=== PATIENT | female | born 1960 | race Caucasian/White ===

== ENCOUNTER 2016-11-15 21:38 | Inpatient (IN) | payer OTHER, MEDICARE ==
[~2016-11-15] VITALS: Ht 157.5 cm; Wt 111.8 kg
[~2016-11-15 21:38] MED LIST: AMIT50TA PO; APIX5TAB PO; ASPI-482 PO; ASPI81TA2 PO; ATOR20TA58 PO; BUSP10TA PO; BYSTOLIC10 MG PO; CARV12.5 PO; CARV25TA PO; CLON0.1T PO; DABI150C PO; DULO60CA44 PO; DULO60CA6 PO; ESOM40CA PO; FENO134C PO; FLUC150T PO; FURO20TA3 PO; FURO80TA72 PO; HYDR-2672 PO; Hydralazine Hcl PO; INSU100I11 SQ; INSU100I13 SQ; INSU100I16 SQ; INSU100I27 SQ; INSU100V8 SQ; ISOS20TA2 PO; ISOS30TA4 PO; LEVO50TA5 PO; LIRA0.6P SQ; LISI-334 PO; LISI40TA PO; METF10002 PO; METO2.5T PO; METO25TA4 PO; MOME13HF IH; NITR0.4T SL; OLME1TAB5 PO; OXYB10TA PO; PRED20TA PO; PREG150C PO; PREG75CA PO; PROM118S2 PO; SPIR25TA3 PO; TIZA4CAP3 PO; TRIM100T PO
[2016-11-15] MEDS ORDERED: PROPOFOL 50 ML IV ONE (22:12)
[2016-11-15] MEDS ORDERED: MORPHINE SULFATE 4 MG/ML DISP.SYRIN. IV PRN (22:15)
[2016-11-15] MEDS ORDERED: MORPHINE SULFATE 2 MG/ML DISP.SYRIN. IV PRN ×2 (22:15→23:30)
[2016-11-15] MEDS ORDERED: FENTANYL PF 100 MCG/2 ML VIAL. IV PRN (22:15)
[2016-11-15] MEDS ORDERED: FENTANYL STANDARD PCA 30 ML IV PRN (22:15)
[2016-11-15 22:21] LABS: BILIRUBIN,URINE NEGATIVE (NEG); GLUCOSE,URINE NEGATIVE (NEG); NITRITE,URINE NEGATIVE (NEG); PH,URINE 5.5; PROTEIN,URINE NEGATIVE (NEG-TRACE); UROBILINOGEN,URINE 0.2 mg/dL (0.2 mg/dL)
[2016-11-15 22:28] LABS: BACTERIA,URINE MANY /HPF (0-FEW); SQUAMOUS EPITHELIAL CELL,UR MANY /LPF
[2016-11-15] MEDS ORDERED: NOREPINEPHRINE VIAL 8 MG in IV NORMAL SALINE 250ML 250 ML IV ONE (22:30)
[2016-11-15] MEDS: PROPOFOL 100 ML IV PRN (22:36)
[2016-11-15] MEDS ORDERED: LORAZEPAM 2 MG/ML VIAL ONE (22:58)
[2016-11-15] MEDS ORDERED: IV NORMAL SALINE 1000ML BAG 1,000 ML IV ONE ×2 (23:00)
[2016-11-15] MEDS ORDERED: IPRATRPIUM/ALBUTEROL 0.5/2.5MG 3 ML NEBU. NEB ONE (23:00)
[2016-11-15] MEDS ORDERED: VANCOMYCIN PER PHARMACY MC PRN (23:15)
--- NOTE | 2016-11-15 23:25 | PHYS DOC ---
Past Medical History Past Medical History: CHF, COPD, Diabetes-Type II, Heart Disease, Hypertension , [place], Renal Disease, Other Additional Past Medical Histor: BAD VALVE, morbid obesity, REFLEX SYNTHEIC DISTROPHY Past Surgical History: Angioplasty, Appendectomy, Cholecystectomy, Hysterectomy , Other Additional Past Surgical Histo: thoractomy, lumpectomy, exploratory surgery, hernia, bladder sling, Alcohol Use: None Drug Use: None Adult General Chief Complaint Chief Complaint: ALTERED MENTAL STATUS HPI HPI 56-year-old female presenting to the emergency department today with worsening confusion clamminess and being cold to touch. She recently has had watery stools over the past 20 hours. The patient's family is here with her today. They report her being normal yesterday. She has a history of COPD CHF hypertension kidney disease and history of an [place] in the past. Onset 4-5 hours. Location generalized. Duration intermittent. No alleviating factors. Unfortunately no further history is available this time. Review of systems is negative for chest pain shortness of breath abdominal pain nausea vomiting. All other review of systems is negative unless otherwise noted in history of present illness. Review of Systems Review of Systems SEE ABOVE. Current Medications Current Medications Current Medications Medications (Trade) Dose Ordered Sig/Jesus Manuel Start Time Stop Time Status Last Admin Dose Admin Albuterol/ Ipratropium 3 ml 3 ml 1X ONCE 11/15/16 23:00 11/15/16 23:01 DC 11/15/16 23:25 3 ML Ceftriaxone Sodium/Sodium Chloride (Rocephin/Iv Sodium Chloride 0.9% 100ml) 100 ml @ 200 mls/hr Q24H 11/15/16 23:30 11/16/16 07:46 DC 11/15/16 23:26 200 MLS/HR Fentanyl Citrate (Fentanyl 2ml Vial) 50 mcg PRN Q1HR PRN 11/15/16 22:15 11/15/16 23:30 50 MCG Fentanyl Citrate (Fentanyl 600 Mcg/30 ml [facility]) 30 ml @ 0 mls/hr CONT PRN 11/15/16 22:15 11/16/16 00:19 2.5 MLS/HR Lorazepam (Ativan) 1 mg 1X ONCE 11/15/16 23:45 11/15/16 23:46 DC 11/15/16 23:45 1 MG Lorazepam 2 mg 2 mg STK-MED ONCE 11/15/16 22:58 11/15/16 22:59 DC Morphine Sulfate 2 mg PRN Q2HR PRN 11/15/16 23:30 11/16/16 10:44 DC Morphine Sulfate 4 mg 4 mg PRN Q1HR PRN 11/15/16 22:15 Norepinephrine Bitartrate/Sodium Chloride (Levophed Vial/ Iv Sodium Chloride 0.9% 250ml) 258 ml @ 0 mls/hr 1X ONCE 11/15/16 22:30 11/15/16 22:31 DC 11/15/16 22:26 1.9 MLS/HR Ondansetron HCl (Zofran) 4 mg PRN Q8HRS PRN 11/15/16 23:30 11/16/16 23:29 Propofol (Diprivan) 100 ml @ 0 mls/hr CONT PRN 11/15/16 22:45 11/16/16 01:33 8.171 MLS/HR Sodium Chloride 1,000 ml @ 1,000 mls/hr 1X ONCE 11/15/16 23:00 11/15/16 23:59 DC 11/15/16 22:34 1,000 MLS/HR Vancomycin HCl (Vanco Per Pharmacy) 1 each PRN DAILY PRN 11/15/16 23:15 11/16/16 07:46 DC 11/16/16 01:47 1 EACH Allergies Allergies Allergies Coded Allergies Type Severity Reaction Last Updated Verified No Known Drug Allergies 04/19/16 No Physical Exam Physical Exam Constitutional: Well developed, well nourished, lethargic, . HENT: Normocephalic, atraumatic, bilateral external ears normal, oropharynx moist, no oral exudates, nose normal. [] Eyes: PERRLA, EOMI, conjunctiva normal, no discharge. Neck: Normal range of motion, no tenderness, supple, no stridor. [] Cardiovascular:Heart rate regular rhythm, no murmur [] Lungs & Thorax: Mild wheezing bilaterally. Abdomen: Bowel sounds normal, soft, no tenderness, no masses, no pulsatile masses. Skin: cool to touch, dry not moist, no erythema, no rash. Back: No tenderness, no CVA tenderness. [] Extremities: No tenderness, no cyanosis, no clubbing, ROM intact, no edema. Neurologic: Mental status: Patient opens her eyes to painful stimuli. She localizes to pain. She speaks incomprehensible speech. Cranial nerves: No evidence of focal cranial nerve deficit. Strength: Moving all extremities with 5 out of 5 strength. Psychologic: mood normal. Current Patient Data Vital Signs Vital Signs Date Time Temp Pulse Resp B/P Pulse Ox O2 Delivery O2 Flow Rate FiO2 11/15/16 23:50 50 61/32 100 Ventilator 11/15/16 23:30 20 11/15/16 21:54 97.0 97.0 Lab Values Laboratory Tests Test 11/15/16 21:45 11/15/16 21:51 11/15/16 23:34 11/15/16 23:35 Glucose (Fingerstick) 293mg/dL (70-99) H Urine Collection Type U cath Urine Color Yellow Urine Clarity Cloudy Urine pH 5.5 Urine Specific [place] 1.015 Urine Protein Negativemg/dL (NEG-TRACE) Urine Glucose (UA) Negativemg/dL (NEG) Urine Ketones (Stick) Negativemg/dL (NEG) Urine Blood Moderate (NEG) Urine Nitrite Negative (NEG) Urine Bilirubin Negative (NEG) Urine Urobilinogen Dipstick 0.2mg/dL (0.2 mg/dL) Urine Leukocyte Esterase Large (NEG) Urine RBC 1-2/HPF (0-2) Urine WBC 11-20/HPF (0-4) Urine Squamous Epithelial Cells Many/LPF Urine Transitional Epithelial Cells Occ/LPF Urine Bacteria Many/HPF (0-FEW) Urine Hyaline Casts Occasional/HPF POC Hemoglobin 15.0g/dL (12-15) POC Hematocrit 44% (36-40) H POC Sodium 137mmol/L (135-145) POC Potassium 3.3mmol/L (3.5-5.0) L POC Chloride 98mmol/L (98-110) POC Total CO2 26mmol/L (23-32) Anion Gap 17mmol/L (6-14) H POC Blood Urea Nitrogen 65mg/dL (8-26) H POC Creatinine 2.5mg/dL (0.5-1.4) H Glucose Level 241mg/dL (70-99) H POC Ionized Calcium (Walt) 0.91mmol/L (1.13-1.32) L POC Troponin I 0.07ng/ml (<0.08) Laboratory Tests 11/15/16 23:34 EKG EKG EKG shows sinus rhythm with a regular rate. [place] is leftward. Intervals are within normal limits. ST segments are congruent. [] Radiology/Procedures Radiology/Procedures [] Chest x-ray shows ET tube just above the haleigh. No obvious infiltrate or pneumothorax present. Cardiomegaly present. Course & Med Decision Making Course & Med Decision Making Pertinent Labs and Imaging studies reviewed. (See chart for details) [] 56-year-old female presenting to the emergency department today with hypotension and confusion. Vital signs showed a blood pressure initially elevated at 256/56 however after taking multiple attempts on both sides the blood pressure was around 60/40. It was initially thought that the blood pressure was asymmetric that the high blood pressure was in the right arm and the low blood pressure was in the left arm however after clarification and multiple blood pressures taken it was clear that both arms blood pressure were around 60/40. Immediately 2 IVs were established and 2 bags of normal saline were administered. The patient's blood pressure was brought up. Because of the patient's decreased mental status there was concern for airway protection. The patient was subsequent intubated. See procedure note. ekg unremarkable. Head CT unremarkable. Chest x-ray shows ET tube just above the haleigh otherwise no acute pathology. ETT pulled back 2cm. Blood work sent. Troponin negative on i- STAT troponin. I-STAT chemistry shows mild elevation creatinine and uremia with elevated glucose. The pts blood pressure dropped again so IV norepinephrine was initiated. IV abx ordered. IV stress dose steroids used. The patient was then admitted to our ICU for further evaluation workup and care. Pulmonology consult placed. Neurology consult placed. Dragon Disclaimer Dragon Disclaimer This electronic medical record was generated, in whole or in part, using a voice recognition dictation system. Departure Departure Impression: Primary Impression: Encephalopathy Additional Impressions: Hypotension Shock Disposition: ADMITTED INPATIENT Admitting Physician: Luis Niño Condition: IMPROVED Referrals: LUIS NIÑO MD (PCP) Critical Care Time Critical care time was [45] minutes exclusive of procedures. Time was spent evaluating the patient, ordering the administration of IV fluids, directing the administration of medications, reevaluating the patient, discussing with family , discussing with the admitting provider, reviewing chest x-ray and documenting. Intubation Procedure Intubation Procedure Intub Indication: Respiratory failure Consent: Unable to give consent due to emergent nature. Medications Used: see nursing note Procedure: The patient was placed in the appropriate position. Intubation was performed using indirect laryngoscopy. 7-1/2 endotracheal tube was placed at approximately 25 at the teeth. Initial confirmation of placement included bilateral breath sounds, tube fogging, adequate chest rise, adequate pulse oximetry reading. A chest x-ray to verify correct placement of the tube, endotracheal tube was pulled back 2 cm after chest x-ray was viewed. The patient tolerated the procedure well. Complications: none. Problem Qualifiers MAGO NORTON MD Nov 15, 2016 23:25
[2016-11-15] MEDS ORDERED: CEFTRIAXONE SODIUM 2 GM in IV NORMAL SALINE 100ML 100 ML IV SCH (23:30)
[2016-11-15] MEDS ORDERED: ONDANSETRON PF 4 MG/2 ML VIAL. IV PRN (23:30)
[2016-11-15] MEDS: FENTANYL PF 100 MCG/2 ML VIAL. IV PRN (23:30)
--- NOTE | 2016-11-15 23:40 | RAD ---
PROCEDURE CT head without contrast HISTORY Decreased level consciousness TECHNIQUE Axial images are obtained of the head from the skull base through the vertex without IV contrast COMPARISON October 06, 2016 FINDINGS The ventricles are appropriate in size, shape, and location for the patient's age.No obvious intracranial mass, mass-effect, midline shift, hemorrhage or obvious acute infarction is identified.Basilar cisterns are patent. Bone windows demonstrate no acute calvarial abnormality.The visualized paranasal sinuses appear clear. IMPRESSION No acute intracranial process. PQRS Statement: One or more of the following individualized dose reduction techniques were utilized for this study: 1. Automated exposure control. 2. Adjustment of the mA and/or kV according to patient size. 3. Use of iterative reconstruction technique. Electronically signed by: Kalpesh Chambers MD (Nov 15, 2016 23:38:35)
[2016-11-15] MEDS ORDERED: LORAZEPAM 2 MG/ML VIAL IV ONE (23:45)
[2016-11-15 23:58] LABS: POTASSIUM ISTAT 3.3 mmol/L (3.5-5.0)
[2016-11-16] VITALS (25 sets, daily range): BP systolic 75–197; BP diastolic 34–95
[2016-11-16] MEDS ORDERED: VANCOMYCIN 2 GM in IV NORMAL SALINE 500ML BAG 500 ML IV ONE ×2
--- NOTE | 2016-11-16 00:24 | ACF ---
Admission Forms Criteria MENTAL STATUS CHANGE Clinical Indications for Inpatient Care (Place 'X' for any and all applicable criteria): Ongoing inpatient care may be needed for ANY ONE of the following(1)(2)(3)(5)(6) : [X]I. Suspected serious etiology (eg, medical disorder, LOADING UNIT OPERATOR SEATING event) of mental status change [ ]II. Danger to self or others not manageable at lower level of care [ ]III. Grave disability (eg, inability to perform self care necessary at lower level of care) [ ]IV. Agitation or inappropriate behavior interfering with care for primary condition (eg, attempting to discontinue lines or drains prematurely, unable to cooperate with respiratory care) [ ]V. Delirium [A] [D][E] as described by ANY ONE of the following(26): [ ]a) Delirium due to alcohol or sedative [F] withdrawal [ ]b) Delirium of uncertain etiology that has not responded to appropriate empiric treatment [ ]c) Delirium that prevents performance of a life-sustaining function (eg, feeding or hydrating oneself) [ ]. General contraindications and/or Inappropriate clinical situations for Observational Care in patients with Mental Status Change, when ANY ONE of the following is required: [ ]a) Prediction of prolongation of LOS based on ANY ONE of the following may be considered as a contraindication for observational care 2, 3, 4, 5, 6, 7, 8, 9, 10, 11 [ ]i) Age > 65 yrs. [ ]ii) Patient arriving by ambulance [ ]iii) Patient with high acuity [ ]iv) Patient requiring vital sign monitoring [ ]v) Patient on IV medication [ ]b) Systolic blood pressures 180mmHg 3,12 [ ]c) Patient with altered mental status including delirium and other alteration of consciousness, (3) [ ]d) Patient whose discharge disposition will be to a alf home or rehabilitation home should not be managed in Emergency Department Observation Unit. CMS rule requires 3 days hospital stay before such placement.3,13 [ ]e) Patient with failure to thrive due to broad array of etiologies 3,16,17 [ ]f) Inability to ambulate 3,14 Extended stay beyond goal length of stay for the primary condition may be needed until ALL of the following are present(3)(5): [ ]a) Underlying medical etiology of mental status change is absent, or has been established and adequately treated [ ]b) Danger to self or others is absent or manageable at lower level of care. [ ]c) Behavior crisis management, including physical or chemical restraints, is not required or available at lower level of car [ ]d) Substance or alcohol withdrawal is absent or manageable at lower level of care. [ ]e) Behavioral symptoms (eg, agitation, somnolence, inappropriate behavior) are absent, or are manageable at lower level of care. The original [facility] content created by [facility] has been revised. The portions of the content which have been revised are identified through the use of italic text or in bold, and [facility] has neither reviewed nor approved the modified material. All other unmodified content is copyright [facility]. Please see references footnoted in the original [facility] edition 2016 Admission Criteria Met?: Yes SINAI VERMA Nov 16, 2016 00:24
[2016-11-16] MEDS ORDERED: HYDROCORTISONE SOD SUCC/PF 100 MG/2 ML VIAL. IV ONE (00:30)
[2016-11-16 00:34] LABS: BASO # 0.2 x10^3/uL (0.0-0.2); BASO % 1 % (0-3); EOS % 3 % (0-3); HEMATOCRIT 38.3 % (36.0-47.0); HEMOGLOBIN 12.3 g/dL (12.0-15.5); LYMPH # 4.9 x10^3/uL (1.0-4.8); LYMPH % 25 % (24-48); MEAN CORPUSCULAR HEMOGLOBIN 29 pg (25-35); MEAN CORPUSCULAR HGB CONC 32 g/dL (31-37); MEAN CORPUSCULAR VOLUME 90 fL (79-100); MONO % 9 % (0-9); NEUT % 62 % (31-73); PLATELET COUNT 310 x10^3/uL (140-400); RED BLOOD COUNT 4.24 x10^6/uL (3.50-5.40); WHITE BLOOD COUNT 19.5 x10^3/uL (4.0-11.0)
[2016-11-16 00:39] LABS: BASE EXCESS COOX 2 mmol/L (-3-3); CARBON MONOXIDE 0.3 % (0.0-1.9); HCO3 COOX 26 mmol/L (21-28); METHEMOGLOBIN 0.4 % (0.0-1.9); OXYHEMOGLOBIN 98.3 %; PCO2 COOX 42 mmHg (35-46); PH COOX 7.42 (7.35-7.45); PO2 COOX 437 mmHg (75-108); SAT O2 COOX 99 % (92-99); TOTAL HEMOGLOBIN 12.7 g/dL
[2016-11-16 00:41] LABS: FIO2 COOX 100
[2016-11-16 00:44] LABS: CALCIUM 8.5 mg/dL (8.5-10.1); CREATININE 2.5 mg/dL (0.6-1.0); GFR 20.1; POTASSIUM 3.3 mmol/L (3.5-5.1)
[2016-11-16 00:45] LABS: INR 1.7 (0.8-1.1); PROTHROMBIN TIME PATIENT 19.3 SEC (11.7-14.0)
[2016-11-16 00:51] LABS: DIRECT BILIRUBIN 0.1 mg/dL (0.0-0.2); TOTAL BILIRUBIN 0.3 mg/dL (0.2-1.0); TOTAL PROTEIN 6.6 g/dL (6.4-8.2)
[2016-11-16] MEDS ORDERED: ETOMIDATE 20 MG/10 ML VIAL. IV ONE (01:05)
[2016-11-16] MEDS ORDERED: SUCCINYLCHOLINE 200 MG/10 ML VIAL. ONE (01:06)
[2016-11-16] MEDS: PROPOFOL 100 ML IV PRN (01:33)
[2016-11-16] MEDS: POTASSIUM CL 20MEQ-0.45% NACL 1,000 ML IV SCH ×2 (01:36→14:52)
[2016-11-16] MEDS ORDERED: IV NORMAL SALINE 1000ML BAG 1,000 ML IV ONE (02:30)
--- NOTE | 2016-11-16 03:26 | RAD ---
INDICATION: Enteric tube placement COMPARISON: None IMPRESSION: Single frontal view of a portion of the abdomen obtained. A enteric tube with tip at left upper quadrant of abdomen. This is in the expected location of the stomach. Enlarged appearing cardiac silhouette partially visualized chest base. Air-filled distended loop of bowel partially seen on the right side of the abdomen. Electronically signed by: Kelvin Chahal (Nov 16, 2016 03:24:19)
--- NOTE | 2016-11-16 06:19 | EKG ---
[facility] [address] [place] [address] Test Date: 2016-11-15 Test Time: 21:43:41 Pat Name: EVELIA TAI Department: Room: 112 1 Gender: F Piper Installer: RADHA : 1960 Requested By: MAGO NORTON Order Number: [id number] Reading MD: Danna Enrique Measurements Intervals [place] Rate: 68 P: -34 [place]: 138 QRS: -2 QRSD: 84 T: 74 QT: 414 QTc: 440 Interpretive Statements SINUS RHYTHM LEFTWARD AXIS T ABNORMALITY IN HIGH LATERAL LEADS ABNORMAL ECG RI6.01 Compared to ECG 10/06/2016 17:45:21 Left-axis deviation now present T-wave abnormality now present Electronically Signed On 11-19-2016 20:23:53 SSIS ETL DEVELOPER by Danna Enrique
[2016-11-16 06:20] LABS: BASO # 0.1 x10^3/uL (0.0-0.2); BASO % 1 % (0-3); EOS % 1 % (0-3); HEMATOCRIT 36.7 % (36.0-47.0); HEMOGLOBIN 11.8 g/dL (12.0-15.5); LYMPH # 3.1 x10^3/uL (1.0-4.8); LYMPH % 18 % (24-48); MEAN CORPUSCULAR HEMOGLOBIN 29 pg (25-35); MEAN CORPUSCULAR HGB CONC 32 g/dL (31-37); MEAN CORPUSCULAR VOLUME 89 fL (79-100); MONO % 6 % (0-9); NEUT % 75 % (31-73); PLATELET COUNT 295 x10^3/uL (140-400); WHITE BLOOD COUNT 17.6 x10^3/uL (4.0-11.0)
[2016-11-16 06:32] LABS: CREATININE 2.3 mg/dL (0.6-1.0); GFR 22.1; POTASSIUM 3.5 mmol/L (3.5-5.1)
--- NOTE | 2016-11-16 07:28 | RAD ---
Portable chest, 11/15/2016: History: Check ET tube placement Comparison is made to a study from 05/24/2016. An ET tube has been inserted with its tip located approximately 1.5 cm above the haleigh. There are surgical clips projected over the upper chest and lower neck near the midline. The heart is at the upper limits of normal in size. The pulmonary vascularity is normal. No pulmonary infiltrate is seen. No pleural fluid is evident. IMPRESSION: 1. The ET tube tip lies 1.5 cm above the haleigh. 2. Mild cardiomegaly
--- NOTE | 2016-11-16 07:30 | RAD ---
Portable chest, 11/16/2016, 6:41 AM: History: Respiratory failure, intubation Comparison is made yesterday study. The tip of the ET tube now lies approximately 5 cm above the haleigh. An NG tube has been inserted extending into the stomach. Its tip is not visible. The heart is at the upper limits of normal in size. The pulmonary vascularity is normal. There is a minimal hazy opacity partially obscuring the left heart border compatible with lingular atelectasis. The lungs are otherwise clear. There is no evidence of pleural fluid. IMPRESSION: 1. The ET tube and NG tube are in satisfactory positions. 2. Minimal lingular atelectasis.
--- NOTE | 2016-11-16 08:00 | PDOC ---
Infectious Disease Note ROS ROS GEN: Denies fevers, chills, sweats HEENT: Denies blurred vision, sore throat CV: Denies chest pain RESP: Denies shortness of air, cough GI: Denies n/v/d NEURO: Denies confusion, dizziness MSK: Denies weakness, joint pain/swelling Vital Sign Vital Signs Vital Signs Date Time Temp Pulse Resp B/P Pulse Ox O2 Delivery O2 Flow Rate FiO2 11/16/16 06:00 54 20 124/52 100 Ventilator 11/16/16 04:04 98.2 98.2 Physical Exam PHYSICAL EXAM GENERAL: NAD, Alert HEENT: PERRL, OC/OP NECK: Supple, no JVD, no LN LUNGS: Clear HEART: S1S2, no gallop, no murmur ABD: Soft, NT, no organomegaly, no rebound EXT: No edema, no cyanosis CORPORATE LEGAL SECRETARY: Alert, oriented x 3, no focal neurologic deficit SKIN: No rash IV: ok Labs Lab Laboratory Tests Test 11/15/16 21:45 11/15/16 21:51 11/15/16 23:34 11/15/16 23:35 Glucose (Fingerstick) 293mg/dL (70-99) Urine Collection Type U cath Urine Color Yellow Urine Clarity Cloudy Urine pH 5.5 Urine Specific [place] 1.015 Urine Protein Negativemg/dL (NEG-TRACE) Urine Glucose (UA) Negativemg/dL (NEG) Urine Ketones (Stick) Negativemg/dL (NEG) Urine Blood Moderate (NEG) Urine Nitrite Negative (NEG) Urine Bilirubin Negative (NEG) Urine Urobilinogen Dipstick 0.2mg/dL (0.2 mg/dL) Urine Leukocyte Esterase Large (NEG) Urine RBC 1-2/HPF (0-2) Urine WBC 11-20/HPF (0-4) Urine Squamous Epithelial Cells Many/LPF Urine Transitional Epithelial Cells Occ/LPF Urine Bacteria Many/HPF (0-FEW) Urine Hyaline Casts Occasional/HPF Bedside Hemoglobin 15.0g/dL (12-15) Bedside Hematocrit 44% (36-40) Bedside Sodium 137mmol/L (135-145) Bedside Potassium 3.3mmol/L (3.5-5.0) Bedside Chloride 98mmol/L (98-110) Bedside Total CO2 26mmol/L (23-32) Anion Gap 17mmol/L (6-14) Bedside Blood Urea Nitrogen 65mg/dL (8-26) Bedside Creatinine 2.5mg/dL (0.5-1.4) Glucose Level 241mg/dL (70-99) Bedside Ionized Calcium (Walt) 0.91mmol/L (1.13-1.32) Bedside Troponin I 0.07ng/ml (<0.08) Test 11/16/16 00:02 11/16/16 00:40 11/16/16 05:25 White Blood Count 19.5x10^3/uL (4.0-11.0) 17.6x10^3/uL (4.0-11.0) Red Blood Count 4.24x10^6/uL (3.50-5.40) 4.10x10^6/uL (3.50-5.40) Hemoglobin 12.3g/dL (12.0-15.5) 11.8g/dL (12.0-15.5) Hematocrit 38.3% (36.0-47.0) 36.7% (36.0-47.0) Mean Corpuscular Volume 90fL (79-100) 89fL (79-100) Mean Corpuscular Hemoglobin 29pg (25-35) 29pg (25-35) Mean Corpuscular Hemoglobin Concent 32g/dL (31-37) 32g/dL (31-37) Red Cell Distribution Width 13.0% (11.5-14.5) 13.0% (11.5-14.5) Platelet Count 310x10^3/uL (140-400) 295x10^3/uL (140-400) Neutrophils (%) (Auto) 62% (31-73) 75% (31-73) Lymphocytes (%) (Auto) 25% (24-48) 18% (24-48) Monocytes (%) (Auto) 9% (0-9) 6% (0-9) Eosinophils (%) (Auto) 3% (0-3) 1% (0-3) Basophils (%) (Auto) 1% (0-3) 1% (0-3) Neutrophils # (Auto) 12.1x10^3uL (1.8-7.7) 13.3x10^3uL (1.8-7.7) Lymphocytes # (Auto) 4.9x10^3/uL (1.0-4.8) 3.1x10^3/uL (1.0-4.8) Monocytes # (Auto) 1.7x10^3/uL (0.0-1.1) 1.0x10^3/uL (0.0-1.1) Eosinophils # (Auto) 0.5x10^3/uL (0.0-0.7) 0.2x10^3/uL (0.0-0.7) Basophils # (Auto) 0.2x10^3/uL (0.0-0.2) 0.1x10^3/uL (0.0-0.2) Prothrombin Time 19.3SEC (11.7-14.0) Prothromb Time International Ratio 1.7 (0.8-1.1) Activated Partial Thromboplast Time 36SEC (24-38) Sodium Level 142mmol/L (136-145) 138mmol/L (136-145) Potassium Level 3.3mmol/L (3.5-5.1) 3.5mmol/L (3.5-5.1) Chloride Level 102mmol/L (98-107) 101mmol/L (98-107) Carbon Dioxide Level 29mmol/L (21-32) 28mmol/L (21-32) Anion Gap 11 (6-14) 9 (6-14) Blood Urea Nitrogen 75mg/dL (7-20) 66mg/dL (7-20) Creatinine 2.5mg/dL (0.6-1.0) 2.3mg/dL (0.6-1.0) Estimated GFR (Cockcroft-Gault) 20.1 22.1 Glucose Level 243mg/dL (70-99) 366mg/dL (70-99) Lactic Acid Level 2.7mmol/L (0.4-2.0) 2.2mmol/L (0.4-2.0) Calcium Level 8.5mg/dL (8.5-10.1) 8.0mg/dL (8.5-10.1) Total Bilirubin 0.3mg/dL (0.2-1.0) Direct Bilirubin 0.1mg/dL (0.0-0.2) Aspartate Amino Transf (AST/SGOT) 20U/L (15-37) Alanine Aminotransferase (ALT/SGPT) 22U/L (14-59) Alkaline Phosphatase 105U/L (46-116) Troponin I Quantitative 0.024ng/mL (0.000-0.055) ST-Uop-M-Type Natriuretic Peptide 339pg/mL (0-124) Total Protein 6.6g/dL (6.4-8.2) Albumin 3.0g/dL (3.4-5.0) Lipase 117U/L (73-393) O2 Saturation 99% (92-99) Arterial Blood pH 7.42 (7.35-7.45) Arterial Blood pCO2 at Patient Temp 42mmHg (35-46) Arterial Blood pO2 at Patient Temp 437mmHg (75-108) Arterial Blood HCO3 26mmol/L (21-28) Arterial Blood Base Excess 2mmol/L (-3-3) Oxyhemoglobin 98.3% Methemoglobin 0.4% (0.0-1.9) Carbon Monoxide, Quantitative 0.3% (0.0-1.9) FiO2 100 Objective Assessment Sepsis - POA 11/15. Hydrocortisone times one Leukocytosis ? UTI but a lot of squamous on UA. Recent Ecoli UTI 10/16 Res bact/Tetra. H/o Kidney stones and bladder surgery JENNIFER Acute Resp failure - intubated ? Abd pain in RLQ - KUB with air filled loop of bowel Reports of Diarrhea prior to admit. neg C-diff 10/12 DM H/o COPD Morbid obesity Plan Plan of Care Change to Zosyn and Zyvox with recent Health care exposure Add Flagyl with recent abx and diarrhea. Check C-diff CT abd/pelvis without contrast given renal failure and air distension. Has had a lot of suspected UTI in past with a lot of UA collected Flu screen/Procalcitonin F/u labs and cults Thank you D/w Dr. Roblero Reviewed previous records 35 mn CC time # [id number] TERRY AREVALO MD Nov 16, 2016 08:00
--- NOTE | 2016-11-16 08:06 | PDOC ---
PROGRESS NOTES Subjective Subjective Patient sedated on vent, resting quietly. Objective Objective Vital Signs Date Time Temp Pulse Resp B/P Pulse Ox O2 Delivery O2 Flow Rate FiO2 11/16/16 06:00 54 20 124/52 100 Ventilator 11/16/16 04:04 98.2 98.2 Intake and Output 11/16/16 07:00 Intake Total 4046 ml Output Total 475 ml Balance 3571 ml Intake IV Total 4046 ml Output Urine Total 475 ml Physical Exam Abdomen: Soft, Other (few BS present, some possible TTP over right side) Heart: Regular rate Extremities: No edema General: No acute distress Lungs: Other (few coarse BS throughout) Assessment Assessment Problems Medical Problems: (1) Confusion Status: Acute (2) Encephalopathy Status: Acute (3) Hypotension Status: Acute (4) Low blood pressure Status: Acute (5) Shock Status: Acute Plan Plan of Care 1. Possible sepsis with metabolic encephalopathy - patient admitted with decreased responsiveness, intubated to protect airway. Hypotensive, treated with low dose of pressor. Elevated WBC's and distended bowel on KUB with report of recent diarrhea suggest GI origin of infection. Also has 11-20 WBC's in urine. Appreciate ID consult. Check CT abdomen, broad abx, cultures. 2. DM2 - SS insulin. 3. COPD - appears stable. 4. HTN - home meds on hold with hypotension. 5. hypothyroidism - change Levothyroxine to IV while intubated. 6. Acute renal failure - Creatinine elevated above baseline. Appears prerenal, mild improvement overnight with IVF, continue to hydrate and follow lab. Comment Review of Relevant I have reviewed the following items jim (where applicable) has been applied. Labs Laboratory Tests Test 11/15/16 21:45 11/15/16 21:51 11/15/16 23:34 11/15/16 23:35 Glucose (Fingerstick) 293mg/dL (70-99) Urine Collection Type U cath Urine Color Yellow Urine Clarity Cloudy Urine pH 5.5 Urine Specific [place] 1.015 Urine Protein Negativemg/dL (NEG-TRACE) Urine Glucose (UA) Negativemg/dL (NEG) Urine Ketones (Stick) Negativemg/dL (NEG) Urine Blood Moderate (NEG) Urine Nitrite Negative (NEG) Urine Bilirubin Negative (NEG) Urine Urobilinogen Dipstick 0.2mg/dL (0.2 mg/dL) Urine Leukocyte Esterase Large (NEG) Urine RBC 1-2/HPF (0-2) Urine WBC 11-20/HPF (0-4) Urine Squamous Epithelial Cells Many/LPF Urine Transitional Epithelial Cells Occ/LPF Urine Bacteria Many/HPF (0-FEW) Urine Hyaline Casts Occasional/HPF Bedside Hemoglobin 15.0g/dL (12-15) Bedside Hematocrit 44% (36-40) Bedside Sodium 137mmol/L (135-145) Bedside Potassium 3.3mmol/L (3.5-5.0) Bedside Chloride 98mmol/L (98-110) Bedside Total CO2 26mmol/L (23-32) Anion Gap 17mmol/L (6-14) Bedside Blood Urea Nitrogen 65mg/dL (8-26) Bedside Creatinine 2.5mg/dL (0.5-1.4) Glucose Level 241mg/dL (70-99) Bedside Ionized Calcium (Walt) 0.91mmol/L (1.13-1.32) Bedside Troponin I 0.07ng/ml (<0.08) Test 11/16/16 00:02 11/16/16 00:40 11/16/16 05:25 White Blood Count 19.5x10^3/uL (4.0-11.0) 17.6x10^3/uL (4.0-11.0) Red Blood Count 4.24x10^6/uL (3.50-5.40) 4.10x10^6/uL (3.50-5.40) Hemoglobin 12.3g/dL (12.0-15.5) 11.8g/dL (12.0-15.5) Hematocrit 38.3% (36.0-47.0) 36.7% (36.0-47.0) Mean Corpuscular Volume 90fL (79-100) 89fL (79-100) Mean Corpuscular Hemoglobin 29pg (25-35) 29pg (25-35) Mean Corpuscular Hemoglobin Concent 32g/dL (31-37) 32g/dL (31-37) Red Cell Distribution Width 13.0% (11.5-14.5) 13.0% (11.5-14.5) Platelet Count 310x10^3/uL (140-400) 295x10^3/uL (140-400) Neutrophils (%) (Auto) 62% (31-73) 75% (31-73) Lymphocytes (%) (Auto) 25% (24-48) 18% (24-48) Monocytes (%) (Auto) 9% (0-9) 6% (0-9) Eosinophils (%) (Auto) 3% (0-3) 1% (0-3) Basophils (%) (Auto) 1% (0-3) 1% (0-3) Neutrophils # (Auto) 12.1x10^3uL (1.8-7.7) 13.3x10^3uL (1.8-7.7) Lymphocytes # (Auto) 4.9x10^3/uL (1.0-4.8) 3.1x10^3/uL (1.0-4.8) Monocytes # (Auto) 1.7x10^3/uL (0.0-1.1) 1.0x10^3/uL (0.0-1.1) Eosinophils # (Auto) 0.5x10^3/uL (0.0-0.7) 0.2x10^3/uL (0.0-0.7) Basophils # (Auto) 0.2x10^3/uL (0.0-0.2) 0.1x10^3/uL (0.0-0.2) Prothrombin Time 19.3SEC (11.7-14.0) Prothromb Time International Ratio 1.7 (0.8-1.1) Activated Partial Thromboplast Time 36SEC (24-38) Sodium Level 142mmol/L (136-145) 138mmol/L (136-145) Potassium Level 3.3mmol/L (3.5-5.1) 3.5mmol/L (3.5-5.1) Chloride Level 102mmol/L (98-107) 101mmol/L (98-107) Carbon Dioxide Level 29mmol/L (21-32) 28mmol/L (21-32) Anion Gap 11 (6-14) 9 (6-14) Blood Urea Nitrogen 75mg/dL (7-20) 66mg/dL (7-20) Creatinine 2.5mg/dL (0.6-1.0) 2.3mg/dL (0.6-1.0) Estimated GFR (Cockcroft-Gault) 20.1 22.1 Glucose Level 243mg/dL (70-99) 366mg/dL (70-99) Lactic Acid Level 2.7mmol/L (0.4-2.0) 2.2mmol/L (0.4-2.0) Calcium Level 8.5mg/dL (8.5-10.1) 8.0mg/dL (8.5-10.1) Total Bilirubin 0.3mg/dL (0.2-1.0) Direct Bilirubin 0.1mg/dL (0.0-0.2) Aspartate Amino Transf (AST/SGOT) 20U/L (15-37) Alanine Aminotransferase (ALT/SGPT) 22U/L (14-59) Alkaline Phosphatase 105U/L (46-116) Troponin I Quantitative 0.024ng/mL (0.000-0.055) ZN-Ubs-T-Type Natriuretic Peptide 339pg/mL (0-124) Total Protein 6.6g/dL (6.4-8.2) Albumin 3.0g/dL (3.4-5.0) Lipase 117U/L (73-393) O2 Saturation 99% (92-99) Arterial Blood pH 7.42 (7.35-7.45) Arterial Blood pCO2 at Patient Temp 42mmHg (35-46) Arterial Blood pO2 at Patient Temp 437mmHg (75-108) Arterial Blood HCO3 26mmol/L (21-28) Arterial Blood Base Excess 2mmol/L (-3-3) Oxyhemoglobin 98.3% Methemoglobin 0.4% (0.0-1.9) Carbon Monoxide, Quantitative 0.3% (0.0-1.9) FiO2 100 Laboratory Tests Test 11/15/16 21:45 11/15/16 21:51 11/15/16 23:34 11/15/16 23:35 Glucose (Fingerstick) 293mg/dL (70-99) Urine Collection Type U cath Urine Color Yellow Urine Clarity Cloudy Urine pH 5.5 Urine Specific [place] 1.015 Urine Protein Negativemg/dL (NEG-TRACE) Urine Glucose (UA) Negativemg/dL (NEG) Urine Ketones (Stick) Negativemg/dL (NEG) Urine Blood Moderate (NEG) Urine Nitrite Negative (NEG) Urine Bilirubin Negative (NEG) Urine Urobilinogen Dipstick 0.2mg/dL (0.2 mg/dL) Urine Leukocyte Esterase Large (NEG) Urine RBC 1-2/HPF (0-2) Urine WBC 11-20/HPF (0-4) Urine Squamous Epithelial Cells Many/LPF Urine Transitional Epithelial Cells Occ/LPF Urine Bacteria Many/HPF (0-FEW) Urine Hyaline Casts Occasional/HPF Bedside Hemoglobin 15.0g/dL (12-15) Bedside Hematocrit 44% (36-40) Bedside Sodium 137mmol/L (135-145) Bedside Potassium 3.3mmol/L (3.5-5.0) Bedside Chloride 98mmol/L (98-110) Bedside Total CO2 26mmol/L (23-32) Anion Gap 17mmol/L (6-14) Bedside Blood Urea Nitrogen 65mg/dL (8-26) Bedside Creatinine 2.5mg/dL (0.5-1.4) Glucose Level 241mg/dL (70-99) Bedside Ionized Calcium (Walt) 0.91mmol/L (1.13-1.32) Bedside Troponin I 0.07ng/ml (<0.08) Test 11/16/16 00:02 11/16/16 00:40 11/16/16 05:25 White Blood Count 19.5x10^3/uL (4.0-11.0) 17.6x10^3/uL (4.0-11.0) Red Blood Count 4.24x10^6/uL (3.50-5.40) 4.10x10^6/uL (3.50-5.40) Hemoglobin 12.3g/dL (12.0-15.5) 11.8g/dL (12.0-15.5) Hematocrit 38.3% (36.0-47.0) 36.7% (36.0-47.0) Mean Corpuscular Volume 90fL (79-100) 89fL (79-100) Mean Corpuscular Hemoglobin 29pg (25-35) 29pg (25-35) Mean Corpuscular Hemoglobin Concent 32g/dL (31-37) 32g/dL (31-37) Red Cell Distribution Width 13.0% (11.5-14.5) 13.0% (11.5-14.5) Platelet Count 310x10^3/uL (140-400) 295x10^3/uL (140-400) Neutrophils (%) (Auto) 62% (31-73) 75% (31-73) Lymphocytes (%) (Auto) 25% (24-48) 18% (24-48) Monocytes (%) (Auto) 9% (0-9) 6% (0-9) Eosinophils (%) (Auto) 3% (0-3) 1% (0-3) Basophils (%) (Auto) 1% (0-3) 1% (0-3) Neutrophils # (Auto) 12.1x10^3uL (1.8-7.7) 13.3x10^3uL (1.8-7.7) Lymphocytes # (Auto) 4.9x10^3/uL (1.0-4.8) 3.1x10^3/uL (1.0-4.8) Monocytes # (Auto) 1.7x10^3/uL (0.0-1.1) 1.0x10^3/uL (0.0-1.1) Eosinophils # (Auto) 0.5x10^3/uL (0.0-0.7) 0.2x10^3/uL (0.0-0.7) Basophils # (Auto) 0.2x10^3/uL (0.0-0.2) 0.1x10^3/uL (0.0-0.2) Prothrombin Time 19.3SEC (11.7-14.0) Prothromb Time International Ratio 1.7 (0.8-1.1) Activated Partial Thromboplast Time 36SEC (24-38) Sodium Level 142mmol/L (136-145) 138mmol/L (136-145) Potassium Level 3.3mmol/L (3.5-5.1) 3.5mmol/L (3.5-5.1) Chloride Level 102mmol/L (98-107) 101mmol/L (98-107) Carbon Dioxide Level 29mmol/L (21-32) 28mmol/L (21-32) Anion Gap 11 (6-14) 9 (6-14) Blood Urea Nitrogen 75mg/dL (7-20) 66mg/dL (7-20) Creatinine 2.5mg/dL (0.6-1.0) 2.3mg/dL (0.6-1.0) Estimated GFR (Cockcroft-Gault) 20.1 22.1 Glucose Level 243mg/dL (70-99) 366mg/dL (70-99) Lactic Acid Level 2.7mmol/L (0.4-2.0) 2.2mmol/L (0.4-2.0) Calcium Level 8.5mg/dL (8.5-10.1) 8.0mg/dL (8.5-10.1) Total Bilirubin 0.3mg/dL (0.2-1.0) Direct Bilirubin 0.1mg/dL (0.0-0.2) Aspartate Amino Transf (AST/SGOT) 20U/L (15-37) Alanine Aminotransferase (ALT/SGPT) 22U/L (14-59) Alkaline Phosphatase 105U/L (46-116) Troponin I Quantitative 0.024ng/mL (0.000-0.055) BB-Ngr-V-Type Natriuretic Peptide 339pg/mL (0-124) Total Protein 6.6g/dL (6.4-8.2) Albumin 3.0g/dL (3.4-5.0) Lipase 117U/L (73-393) O2 Saturation 99% (92-99) Arterial Blood pH 7.42 (7.35-7.45) Arterial Blood pCO2 at Patient Temp 42mmHg (35-46) Arterial Blood pO2 at Patient Temp 437mmHg (75-108) Arterial Blood HCO3 26mmol/L (21-28) Arterial Blood Base Excess 2mmol/L (-3-3) Oxyhemoglobin 98.3% Methemoglobin 0.4% (0.0-1.9) Carbon Monoxide, Quantitative 0.3% (0.0-1.9) FiO2 100 Medications Current Medications Propofol 50 ml @ As Directed STK-MED ONCE IV ; Start 11/15/16 at 22:12; Stop at 22:13; Status DC Fentanyl Citrate (Fentanyl 600 Mcg/30 ml CENTRIFUGAL SEPARATOR) 30 ml @ 0 mls/hr CONT PRN IV PROTOCOL Last administered on 11/16/16 00:19; Start 11/15/16 at 22:15 Fentanyl Citrate (Fentanyl 2ml Vial) 25 mcg PRN Q1HR PRN IV COMM; Start at 22:15 Fentanyl Citrate (Fentanyl 2ml Vial) 50 mcg PRN Q1HR PRN IV COMM Last administered on 11/15/16 23:30; Start 11/15/16 at 22:15 Chlorhexidine Gluconate (Peridex) 15 ml BID MM ; Start 11/16/16 at 09:00 Morphine Sulfate 2 mg PRN Q1HR PRN IV COMM; Start 11/15/16 at 22:15 Morphine Sulfate 4 mg 4 mg PRN Q1HR PRN IV COMM; Start 11/15/16 at 22:15 Norepinephrine Bitartrate/Sodium Chloride (Levophed Vial/ Iv Sodium Chloride 0.9 % 250ml) 258 ml @ 0 mls/hr 1X ONCE IV Last administered on 11/15/16 22:26; Start 11/15/16 at 22:30; Stop 11/15/16 at 22:31; Status DC Albuterol/ Ipratropium 3 ml 3 ml 1X ONCE NEB Last administered on 11/15/16 23 :25; Start 11/15/16 at 23:00; Stop 11/15/16 at 23:01; Status DC Sodium Chloride 1,000 ml @ 1,000 mls/hr 1X ONCE IV Last administered on 22:34; Start 11/15/16 at 23:00; Stop 11/15/16 at 23:59; Status DC Sodium Chloride 1,000 ml @ 1,000 mls/hr 1X ONCE IV Last administered on 22:34; Start 11/15/16 at 23:00; Stop 11/15/16 at 23:59; Status DC Propofol (Diprivan) 100 ml @ 0 mls/hr CONT PRN IV PER PROTOCOL Last administered on 11/16/16 01:33; Start 11/15/16 at 22:45 Lorazepam 2 mg 2 mg STK-MED ONCE .ROUTE ; Start 11/15/16 at 22:58; Stop at 22:59; Status DC Ceftriaxone Sodium/Sodium Chloride (Rocephin/Iv Sodium Chloride 0.9% 100ml) 100 ml @ 200 mls/hr Q24H IV Last administered on 11/15/16 23:26; Start 11/15/16 at 23:30; Stop 11/16/16 at 07:46; Status DC Vancomycin HCl 1 each 1 each PRN DAILY PRN MC SEE COMMENTS Last administered on 11/16/16 01:47; Start 11/15/16 at 23:15; Stop 11/16/16 at 07:46; Status DC Vancomycin HCl/ Sodium Chloride (Iv Sodium Chloride 0.9% 500ml Bag) 500 ml @ 250 mls/hr 1X ONCE IV Last administered on 11/16/16 00:25; Start 11/16/16 at 00:00; Stop 11/16/16 at 01:59; Status DC Ondansetron HCl (Zofran) 4 mg PRN Q8HRS PRN IV NAUSEA/VOMITING; Start 11/15/16 at 23:30; Stop 11/16/16 at 23:29 Morphine Sulfate 2 mg PRN Q2HR PRN IV SEVERE PAIN; Start 11/15/16 at 23:30; Stop 11/16/16 at 23:29 Lorazepam (Ativan) 1 mg 1X ONCE IV Last administered on 11/15/16 23:45; Start 11/15/16 at 23:45; Stop 11/15/16 at 23:46; Status DC Hydrocortisone Sodium Succinate (Solu-Cortef) 100 mg 1X ONCE IV Last administered on 11/16/16 01:36; Start 11/16/16 at 00:30; Stop 11/16/16 at 00:31 ; Status DC Etomidate (Amidate) 20 mg STK-MED ONCE IV ; Start 11/16/16 at 01:05; Stop at 01:06; Status DC Succinylcholine Chloride 200 mg 200 mg STK-MED ONCE .ROUTE ; Start 11/16/16 at 01:06; Stop 11/16/16 at 01:07; Status DC Potassium Chloride/Sodium Chloride 1,000 ml @ 100 mls/hr Q10H IV Last administered on 11/16/16 01:36; Start 11/16/16 at 01:30 Vancomycin HCl/ Sodium Chloride (Iv Sodium Chloride 0.9% 500ml Bag) 500 ml @ 250 mls/hr Q24H IV ; Start 11/16/16 at 23:00; Stop 11/16/16 at 23:00; Status DC Vancomycin HCl 1 each 1 each 1X ONCE MC ; Start 11/17/16 at 22:30; Stop at 22:31; Status Cancel Sodium Chloride 1,000 ml @ 999 mls/hr 1X ONCE IV Last administered on t 02:25; Start 11/16/16 at 02:30; Stop 11/16/16 at 03:30; Status DC Linezolid 300 ml @ 300 mls/hr Q12HR IV ; Start 11/16/16 at 09:00 Metronidazole 100 ml @ 100 mls/hr Q8HRS IV ; Start 11/16/16 at 08:00 Piperacillin Sod/ Tazobactam Sod/ Sodium Chloride (Zosyn/Iv Sodium Chloride 0.9 % 50ml) 50 ml @ 100 mls/hr Q6HRS IV ; Start 11/16/16 at 09:00 Active Scripts Active Nitrostat (Nitroglycerin) 0.4 Mg Tab.subl 0.4 Mg SL PRN Q5MIN PRN 30 Days Reported Lyrica (Pregabalin) 150 Mg Capsule 1 Cap PO BID Cymbalta (Duloxetine Hcl) 60 Mg Capsule.dr 1 Cap PO BID Metolazone 2.5 Mg Tablet 2 Mg PO QMWF PRN Lantus (Insulin Glargine,Hum.rec.anlog) 100 Unit/1 Ml Vial 40 Unit SQ DAILY07 Humalog (Insulin Lispro) 100 Unit/1 Ml Insuln.pen 20 Unit SQ TIDACHC Atorvastatin Calcium 20 Mg Tablet 1 Tab PO DAILY Nexium Capsule (Esomeprazole Magnesium) 40 Mg Capsule.dr 1 Cap PO DAILY Isosorbide Mononitrate Er (Isosorbide Mononitrate) 30 Mg Tab.er.24h 1 Tab PO DAILY Aspirin 81 Mg Tab.chew 1 Tab PO DAILY Novolog Mix 70-30 Flexpen Syrn (Insuln Asp Prt/Insulin Aspart) 100 Unit/1 Ml Insuln.pen 50 Unit SQ DAILY16 Pradaxa (Dabigatran Etexilate Mesylate) 150 Mg Capsule 1 Cap PO BID Levothyroxine Sodium 50 Mcg Tablet 1 Tab PO DAILY Fenofibrate (Fenofibrate,Micronized) 134 Mg Capsule 1 Cap PO DAILY Clonidine Hcl 0.1 Mg Tablet 0.1 Mg PO TID Zanaflex (Tizanidine Hcl) 4 Mg Capsule 4 Mg PO PRN Q8HRS PRN as needed for muscle cramps no more than every 8hrs Hydrocodone-Apap 10-325 (Hydrocodone Bit/Acetaminophen) 1 Each Tablet 1 Tab PO PRN Q6HRS PRN as needed for pain every 6 hours Vitals/I & O Vital Sign - Last 24 Hours 11/15/16 11/15/16 11/15/16 11/15/16 21:54 22:30 23:20 23:25 Temp 97.0 97.0 Pulse 77 56 54 Resp 20 B/P 70/35 77/43 79/50 Pulse Ox 97 100 100 100 O2 Delivery Room Air Ventilator Ventilator Ventilator 11/15/16 11/15/16 11/15/16 11/15/16 23:30 23:30 23:35 23:40 Pulse 56 52 52 Resp 20 B/P 92/54 71/36 69/35 Pulse Ox 100 100 100 100 O2 Delivery Ventilator Ventilator Ventilator Ventilator 11/15/16 11/15/16 11/15/16 11/16/16 23:45 23:50 23:55 00:00 Pulse 52 50 50 50 B/P 64/34 61/32 94/50 123/59 Pulse Ox 100 100 100 100 O2 Delivery Ventilator Ventilator Ventilator Ventilator 11/16/16 11/16/16 11/16/16 11/16/16 00:05 00:10 00:15 00:20 Pulse 52 52 50 51 B/P 137/69 116/59 94/53 105/57 Pulse Ox 100 100 100 100 O2 Delivery Ventilator Ventilator Ventilator Ventilator 11/16/16 11/16/16 11/16/16 11/16/16 00:55 00:55 00:56 01:00 Temp 97.5 97.5 Pulse 54 Resp 18 18 18 B/P 75/34 Pulse Ox 100 100 100 O2 Delivery Ventilator Ventilator Ventilator Ventilator 11/16/16 11/16/16 11/16/16 11/16/16 01:15 01:20 01:30 01:45 Pulse 53 59 58 Resp 18 18 18 B/P 95/49 81/44 Pulse Ox 100 100 100 O2 Delivery Ventilator Mechanical Ventilator Ventilator Ventilator 11/16/16 11/16/16 11/16/16 11/16/16 02:00 02:15 03:00 03:28 Pulse 54 53 52 Resp 18 18 18 B/P 108/58 90/47 Pulse Ox 100 100 100 100 O2 Delivery Ventilator Ventilator Ventilator Ventilator 11/16/16 11/16/16 11/16/16 11/16/16 03:53 04:04 05:00 05:38 Temp 98.2 98.2 Pulse 53 54 Resp 18 18 B/P 136/62 126/58 Pulse Ox 100 100 100 O2 Delivery Mechanical Ventilator Ventilator Ventilator Ventilator 11/16/16 06:00 Pulse 54 Resp 20 B/P 124/52 Pulse Ox 100 O2 Delivery Ventilator Intake and Output 11/15/16 11/15/16 11/16/16 15:00 23:00 07:00 Intake Total 2000 ml 2046 ml Output Total 475 ml Balance 2000 ml 1571 ml JUSTIN TAVAREZ MD Nov 16, 2016 08:06
[2016-11-16] MEDS ORDERED: DEXTROSE 50% 25 GM / 50ML DISP.SYRIN. IV PRN (08:15)
[2016-11-16 08:19] LABS: HCO3 ABG 26 mmol/L (21-28); PCO2 ABG 37 mmHg (35-46); PH ABG 7.46 (7.35-7.45); PO2 ABG 117 mmHg (75-108); SAT O2 ABG 98 % (92-99)
[2016-11-16 08:30] LABS: FIO2 ABG 40
[2016-11-16] MEDS ORDERED: CHLORHEXIDINE 0.12% 15 ML MOUTHWASH. MM SCH (09:00)
[2016-11-16] MEDS ORDERED: LEVOTHYROXINE SODIUM 25 MCG in IV NORMAL SALINE 50ML 5 ML IVP SCH (09:00)
--- NOTE | 2016-11-16 09:10 | HP ---
ADMIT DATE: 11/16/2016 CHIEF COMPLAINT: Decreased level of consciousness. HISTORY OF PRESENT ILLNESS: The patient is a 56-year-old female with multiple chronic medical problems, who was brought to the Emergency Room by her family with the above complaint. They reported the patient had experienced some recent diarrhea, but she apparently had not complained of any other symptoms of illness. They found her to appear confused and not her usual self on the day of admission. Initial evaluation in the Emergency Room showed evidence of sepsis with decreased responsiveness, hypotension, and elevated WBCs. The patient was intubated to protect her airway and admitted for further treatment. 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 PAST SURGICAL HISTORY: Hysterectomy, bilateral oophorectomy, appendectomy, right thoracotomy for RSD, breast lumpectomies x 2, cholecystectomy, right wrist surgery for tendon lengthening, coronary artery stent placement, bladder suspension x 2. ALLERGIES: The patient has no known drug allergies. . MEDICATIONS: An accurate list is not presently available. List from her last hospital discharge in September includes aspirin 81 mg daily; atorvastatin 20 mg; clonidine 0.1 mg t.i.d.; Pradaxa 150 mg b.i.d.; Cymbalta 60 mg b.i.d.; Nexium 40 mg daily; fenofibrate 134 mg daily; hydrocodone p.r.n.; Lantus insulin 40 units daily; Humalog or NovoLog insulin, unclear what she is actually taking; Imdur daily; levothyroxine 50 mcg daily; metolazone 2.5 mg 3 times weekly as needed; Lyrica 150 mg b.i.d.; Zanaflex 4 mg p.r.n. FAMILY HISTORY: Noncontributory. SOCIAL HISTORY: The patient is . She is disabled. She lives at home with her family. She has a long smoking history, but has not smoked cigarettes in several years. She does not drink alcohol to excess. REVIEW OF SYSTEMS: This is presently unobtainable as the patient is sedated and intubated. PHYSICAL EXAMINATION: GENERAL: The patient is lightly sedated on the ventilator, resting quietly. She is minimally responsive to stimulation. NECK: Supple, without lymphadenopathy. CHEST: Few coarse breath sounds throughout. No wheezes. CARDIOVASCULAR: Regular rhythm without murmur. ABDOMEN: Soft. Few bowel sounds are present. There appears to be some tenderness to palpation over the right side of the abdomen without guarding or rebound. EXTREMITIES: Without edema. ASSESSMENT AND PLAN: 1. Possible sepsis with metabolic encephalopathy: The patient has been stable overnight on the vent. She is not febrile. White count remains elevated. She has been hypotensive. This is being treated with a low dose of pressors. There was a report of a distended bowel on the right side of the abdomen seen on the KUB and the patient did have recent diarrhea, which suggests her infection could be of GI origin. She also has 11 to 20 wbc's in her urine and a history of frequent urinary tract infections, some with resistant bacteria. Infectious Disease has been consulted. The patient is on broad antibiotics at this time. A CT of the abdomen has been ordered for further evaluation. We will check this and await the culture results. 2. Diabetes mellitus type 2: Use sliding scale insulin while the patient is n.p.o. 3. Chronic obstructive pulmonary disease: This appears stable. The patient did not complain of respiratory symptoms in the Emergency Room. 4. Hypertension: Home medications are on hold. 5. Hypothyroidism: We will change her levothyroxine to an IV dose while she is intubated. 6. Acute renal failure: The patient's creatinine at admission was significantly elevated to 2.5. Her baseline is about 1.2 to 1.3. She has been given IV fluids for hydration. Her creatinine is mildly improved today and is down to 2.3. It appears the renal failure is due to prerenal azotemia. We will continue fluids and follow her labs for this. JUSTIN TAVAREZ MD DR: MARANDA/apolinar JOB#: [id number] / [id number] GREGG
--- NOTE | 2016-11-16 09:43 | PDOC ---
Provider Note Provider Note dictated ROBERT SANDOVAL MD Nov 16, 2016 09:43
--- NOTE | 2016-11-16 10:08 | CONS ---
DATE OF CONSULTATION: 11/16/2016 ATTENDING PHYSICIAN: Dr. Roblero. REASON FOR CONSULTATION: Respiratory failure, shock. HISTORY OF PRESENT ILLNESS: The patient is a 56-year-old obese patient who has chronic medical problems including type 2 diabetes, obstructive sleep apnea, prior pulmonary embolism and CVA with residual right-sided weakness. She also has history of atrial fibrillation. She was brought into the Emergency Room by her family. She had been having some diarrhea recently. She was confused. She was suspected to have sepsis as she was hypotensive on arrival. I was called from the ER after she was intubated. She received multiple fluid boluses, her blood pressure did remain variable with initial recorded level was 70 systolic and fluctuated in the 60s-70s and eventually in the 120s around midnight. She did respond to IV fluid bolus. The patient was also placed on vasopressors. Her white blood cell count initially was elevated at 19.5, as a result empiric antibiotics were initiated. Her chest x-ray was reviewed by me. There was some minimal atelectasis left lower lobe. Urine is still pending. She was seen by Infectious Disease then who had broadened the antibiotics. Currently, she is only down to 1 mcg of Levophed and blood pressure is 120 systolic. I have reviewed the patient's chest x-ray and endotracheal tube is in satisfactory position. There is atelectasis in the left lower lobe. She has a heart rate in the 50s. Consultation requested for further evaluation and management. PAST MEDICAL HISTORY: Extensive and includes history of type 2 diabetes, history of hypertension, hyperlipidemia, obstructive sleep apnea, previous pulmonary embolism, history of reflex sympathetic dystrophy, history of coronary artery disease, COPD, GERD, carotid artery stenosis, hypothyroidism, frequent UTIs, CVA with residual right-sided weakness, especially in the right lower extremity, history of renal stones and atrial fibrillation. PAST SURGICAL HISTORY: Hysterectomy, bilateral oophorectomy, appendectomy, right thoracotomy for RSD, breast lumpectomy, cholecystectomy, right wrist surgery for tendon lengthening, history of coronary artery stent placement and bladder suspension x 2. ALLERGIES: None. MEDICATIONS: All reviewed as listed in the MRAD including antibiotics. REVIEW OF SYSTEMS: Unable to obtain from the patient as she is intubated. SOCIAL HISTORY: She is disabled, lives at home with her family. She has a smoking history, details unable to obtain. PHYSICAL EXAMINATION: GENERAL: She is intubated and sedated mildly. VITAL SIGNS: Her latest blood pressure is 124 systolic. Pulse ox is 99%. She is afebrile. HEENT: Sclerae nonicteric. NECK: Supple. LUNGS: Diminished breath sounds. CARDIOVASCULAR: Regular rate and rhythm. ABDOMEN: Soft, obese. EXTREMITIES: With trace pitting edema. LABORATORY DATA: Reviewed. White cell count 17.6, hemoglobin 11.8 and platelets are 295. Chemistries with a lactic acid of 2.2. BUN initially was 75 and creatinine of 2.5 and now is improving to 66 and 2.3. Procalcitonin 0.15. INR is 1.7. ABG showed a pH of 7.46, pCO2 of 37, pO2 of 117 on 40% FiO2. IMPRESSION: 1. Acute respiratory failure secondary to multifactorial etiologies and includes hypotension/shock and encephalopathy. 2. Hypotension/shock, most likely hypovolemic, but cannot exclude early septic shock. Lactic acid was 2.2. She has responded well to IV hydration. Her pressor needs are down to only 1 mcg of Levophed. 3. Underlying chronic obstructive pulmonary disease with mild exacerbation. 4. Acute renal failure, most likely caused by dehydration from recent diarrhea, responding to IV fluids. 5. History of atrial fibrillation. The patient's INR is 1.7. I do not see Coumadin as her home medication, will review with PCP. 6. Abnormal KUB with some dilated loops of bowel. CT abdomen has been ordered for further evaluation. 7. Hypothyroidism. Her TSH level will be checked to make sure bradycardia is not caused by hypothyroidism. Continue levothyroxine per PCP. 8. Possible early sepsis. No focus of infection in the lungs. We will obtain urine cultures. RECOMMENDATIONS: 1. Continue present pressure control mode. She was initially placed on pressure control due to high peak airway pressures, which are improved. We will reduce pressure and FiO2. 2. Wean off the Levophed. 3. Continue IV hydration as needed. 4. Broad spectrum antibiotics per ID. 5. Follow up all cultures. 6. Obtain TSH level. 7. Continue with bronchodilators. 8. Deep venous thrombosis prophylaxis. 9. Stress ulcer prophylaxis. 10. Discussed with RN/ RT and patients daughter. We will follow along with you. Critical care time 40 minutes. ROBERT SANDOVAL MD DR: EDGAR/apolinar JOB#: [id number] / [id number] GREGG
[2016-11-16] MEDS: PIPERACILLIN/TAZOBACTAM 2.25 GM in IV NORMAL SALINE 50ML 50 ML IV SCH ×2 (10:12→17:49)
[2016-11-16] MEDS: METRONIDAZOLE 500mg PREMIX 100 ML IV SCH ×3 (10:12→22:12)
[2016-11-16 10:41] LABS: PLT ESTIMATE ADEQUATE (ADEQUATE)
--- NOTE | 2016-11-16 11:07 | PDOC2 ---
NEUROLOGY CONSULT Date of Admission Date of Admission DATE: 11/16/16 TIME: 10:57 Reason for Consult Reason for Consult: altered mental status Referring Physician Referring Physician: Dr. Niño Source Source: Caregiver, Chart review, Patient History of Present Illness History of Present Illness The patient is a 56-year-old right-handed female whom I saw 5 months ago when she was admitted with a left pontine stroke. This time she presents with mental status changes. She had made a good recovery from her stroke, her says. There is no history of head injury or seizures. She is found to have multiple metabolic problems including Respiratory failure, renal failure, and probable urinary tract infection with sepsis. Past Medical History Cardiovascular: CAD, CHF, HTN, ND, Other (peripheral vascular disease) Pulmonary: COPD, Pulmonary embolus (DVT), Other (sleep apnea) CENTRAL NERVOUS SYSTEM: CVA, Periperal neuropathy, Other (tinnitis, aneurysm of right eye) GI: Other (Barrets, esophageal stricture) Psych: Depression, Other (PTSD) Musculoskeletal: low back pain, Osteoarthritis Rheumatologic: Gout Renal/: UTI, Urinary Incontinence Endocrine: Diabetes Past Surgical History Past Surgical History: Cholecystectomy, Hernia Repair (hiatal, with mesh), Hysterectomy, Other (coronary stents, thoracotomy, breast lumpectomy) Family History Family History: CAD Social History Social History , smokes occasionally, no alcohol Current Medications Current Medications Current Medications Propofol 50 ml @ As Directed STK-MED ONCE IV ; Start 11/15/16 at 22:12; Stop at 22:13; Status DC Fentanyl Citrate (Fentanyl 600 Mcg/30 ml HAND I THERMAL CUTTER) 30 ml @ 0 mls/hr CONT PRN IV PROTOCOL Last administered on 11/16/16 00:19; Start 11/15/16 at 22:15 Fentanyl Citrate (Fentanyl 2ml Vial) 25 mcg PRN Q1HR PRN IV COMM; Start at 22:15 Fentanyl Citrate (Fentanyl 2ml Vial) 50 mcg PRN Q1HR PRN IV COMM Last administered on 11/15/16 23:30; Start 11/15/16 at 22:15 Chlorhexidine Gluconate (Peridex) 15 ml BID MM Last administered on 11/16/16 10:13; Start 11/16/16 at 09:00 Morphine Sulfate 2 mg PRN Q1HR PRN IV COMM; Start 11/15/16 at 22:15 Morphine Sulfate 4 mg 4 mg PRN Q1HR PRN IV COMM; Start 11/15/16 at 22:15 Norepinephrine Bitartrate/Sodium Chloride (Levophed Vial/ Iv Sodium Chloride 0.9 % 250ml) 258 ml @ 0 mls/hr 1X ONCE IV Last administered on 11/15/16 22:26; Start 11/15/16 at 22:30; Stop 11/15/16 at 22:31; Status DC Albuterol/ Ipratropium 3 ml 3 ml 1X ONCE NEB Last administered on 11/15/16 23 :25; Start 11/15/16 at 23:00; Stop 11/15/16 at 23:01; Status DC Sodium Chloride 1,000 ml @ 1,000 mls/hr 1X ONCE IV Last administered on 22:34; Start 11/15/16 at 23:00; Stop 11/15/16 at 23:59; Status DC Sodium Chloride 1,000 ml @ 1,000 mls/hr 1X ONCE IV Last administered on 22:34; Start 11/15/16 at 23:00; Stop 11/15/16 at 23:59; Status DC Propofol (Diprivan) 100 ml @ 0 mls/hr CONT PRN IV PER PROTOCOL Last administered on 11/16/16 01:33; Start 11/15/16 at 22:45 Lorazepam 2 mg 2 mg STK-MED ONCE .ROUTE ; Start 11/15/16 at 22:58; Stop at 22:59; Status DC Ceftriaxone Sodium/Sodium Chloride (Rocephin/Iv Sodium Chloride 0.9% 100ml) 100 ml @ 200 mls/hr Q24H IV Last administered on 11/15/16 23:26; Start 11/15/16 at 23:30; Stop 11/16/16 at 07:46; Status DC Vancomycin HCl 1 each 1 each PRN DAILY PRN MC SEE COMMENTS Last administered on 11/16/16 01:47; Start 11/15/16 at 23:15; Stop 11/16/16 at 07:46; Status DC Vancomycin HCl/ Sodium Chloride (Iv Sodium Chloride 0.9% 500ml Bag) 500 ml @ 250 mls/hr 1X ONCE IV Last administered on 11/16/16 00:25; Start 11/16/16 at 00:00; Stop 11/16/16 at 01:59; Status DC Ondansetron HCl (Zofran) 4 mg PRN Q8HRS PRN IV NAUSEA/VOMITING; Start 11/15/16 at 23:30; Stop 11/16/16 at 23:29 Morphine Sulfate 2 mg PRN Q2HR PRN IV SEVERE PAIN; Start 11/15/16 at 23:30; Stop 11/16/16 at 10:44; Status DC Lorazepam (Ativan) 1 mg 1X ONCE IV Last administered on 11/15/16 23:45; Start 11/15/16 at 23:45; Stop 11/15/16 at 23:46; Status DC Hydrocortisone Sodium Succinate (Solu-Cortef) 100 mg 1X ONCE IV Last administered on 11/16/16 01:36; Start 11/16/16 at 00:30; Stop 11/16/16 at 00:31 ; Status DC Etomidate (Amidate) 20 mg STK-MED ONCE IV ; Start 11/16/16 at 01:05; Stop at 01:06; Status DC Succinylcholine Chloride 200 mg 200 mg STK-MED ONCE .ROUTE ; Start 11/16/16 at 01:06; Stop 11/16/16 at 01:07; Status DC Potassium Chloride/Sodium Chloride 1,000 ml @ 100 mls/hr Q10H IV Last administered on 11/16/16 01:36; Start 11/16/16 at 01:30 Vancomycin HCl/ Sodium Chloride (Iv Sodium Chloride 0.9% 500ml Bag) 500 ml @ 250 mls/hr Q24H IV ; Start 11/16/16 at 23:00; Stop 11/16/16 at 23:00; Status DC Vancomycin HCl 1 each 1 each 1X ONCE MC ; Start 11/17/16 at 22:30; Stop at 22:31; Status Cancel Sodium Chloride 1,000 ml @ 999 mls/hr 1X ONCE IV Last administered on 02:25; Start 11/16/16 at 02:30; Stop 11/16/16 at 03:30; Status DC Linezolid 300 ml @ 300 mls/hr Q12HR IV Last administered on 11/16/16 10:12; Start 11/16/16 at 09:00 Metronidazole 100 ml @ 100 mls/hr Q8HRS IV Last administered on 11/16/16 10: 12; Start 11/16/16 at 08:00 Piperacillin Sod/ Tazobactam Sod/ Sodium Chloride (Zosyn/Iv Sodium Chloride 0.9 % 50ml) 50 ml @ 100 mls/hr Q6HRS IV Last administered on 11/16/16 10:12; Start 11/16/16 at 09:00 Insulin Aspart (Novolog) 0-9 UNITS TIDWMEALS SQ ; Start 11/16/16 at 09:00 Dextrose 12.5 gm 12.5 gm PRN Q15MIN PRN IV SEE COMMENTS; Start 11/16/16 at 08: 15 Levothyroxine Sodium/Sodium Chloride (Synthroid/Iv Sodium Chloride 0.9% 50ml) 5 ml @ 100 mls/hr DAILY IVP Last administered on 11/16/16 10:13; Start 11/16/16 at 09:00 Active Scripts Active Nitrostat (Nitroglycerin) 0.4 Mg Tab.subl 0.4 Mg SL PRN Q5MIN PRN 30 Days Reported Lyrica (Pregabalin) 150 Mg Capsule 1 Cap PO BID Cymbalta (Duloxetine Hcl) 60 Mg Capsule.dr 1 Cap PO BID Metolazone 2.5 Mg Tablet 2 Mg PO QMWF PRN Lantus (Insulin Glargine,Hum.rec.anlog) 100 Unit/1 Ml Vial 40 Unit SQ DAILY07 Humalog (Insulin Lispro) 100 Unit/1 Ml Insuln.pen 20 Unit SQ TIDACHC Atorvastatin Calcium 20 Mg Tablet 1 Tab PO DAILY Nexium Capsule (Esomeprazole Magnesium) 40 Mg Capsule.dr 1 Cap PO DAILY Isosorbide Mononitrate Er (Isosorbide Mononitrate) 30 Mg Tab.er.24h 1 Tab PO DAILY Aspirin 81 Mg Tab.chew 1 Tab PO DAILY Novolog Mix 70-30 Flexpen Syrn (Insuln Asp Prt/Insulin Aspart) 100 Unit/1 Ml Insuln.pen 50 Unit SQ DAILY16 Pradaxa (Dabigatran Etexilate Mesylate) 150 Mg Capsule 1 Cap PO BID Levothyroxine Sodium 50 Mcg Tablet 1 Tab PO DAILY Fenofibrate (Fenofibrate,Micronized) 134 Mg Capsule 1 Cap PO DAILY Clonidine Hcl 0.1 Mg Tablet 0.1 Mg PO TID Zanaflex (Tizanidine Hcl) 4 Mg Capsule 4 Mg PO PRN Q8HRS PRN as needed for muscle cramps no more than every 8hrs Hydrocodone-Apap 10-325 (Hydrocodone Bit/Acetaminophen) 1 Each Tablet 1 Tab PO PRN Q6HRS PRN as needed for pain every 6 hours Allergies Allergies: Coded Allergies: No Known Drug Allergies (Unverified , 04/19/16) ROS Review of System According to the , no recent fevers, chills, weight loss, dyspnea, angina , and the rest of the 14 point review systems is negative. Physical Exam Physical Examination PHYSICAL EXAMINATION: Vital signs: see above. General appearance is normal and in no acute distress. HEENT: Normocephalic and nontraumatic. Eyes, nose, ears, and throat are unremarkable. Neck is supple. No lymphadenopathy. No bruits are heard over the carotid artery. No crepitus. NEUROLOGIC: She is sedated on the ventilator. Pupils react to light, she reacts to sectioning, does not react to deep pain. Reflexes are 1+ with silent plant responses. Vitals VITALS Vital Signs Date Time Temp Pulse Resp B/P Pulse Ox O2 Delivery O2 Flow Rate FiO2 11/16/16 10:00 54 20 95/54 100 Ventilator 11/16/16 08:00 99.1 99.1 Labs Labs Laboratory Tests Test 11/15/16 21:45 11/15/16 21:51 11/15/16 23:34 11/15/16 23:35 Glucose (Fingerstick) 293mg/dL (70-99) Urine Collection Type U cath Urine Color Yellow Urine Clarity Cloudy Urine pH 5.5 Urine Specific Tyler 1.015 Urine Protein Negativemg/dL (NEG-TRACE) Urine Glucose (UA) Negativemg/dL (NEG) Urine Ketones (Stick) Negativemg/dL (NEG) Urine Blood Moderate (NEG) Urine Nitrite Negative (NEG) Urine Bilirubin Negative (NEG) Urine Urobilinogen Dipstick 0.2mg/dL (0.2 mg/dL) Urine Leukocyte Esterase Large (NEG) Urine RBC 1-2/HPF (0-2) Urine WBC 11-20/HPF (0-4) Urine Squamous Epithelial Cells Many/LPF Urine Transitional Epithelial Cells Occ/LPF Urine Bacteria Many/HPF (0-FEW) Urine Hyaline Casts Occasional/HPF Bedside Hemoglobin 15.0g/dL (12-15) Bedside Hematocrit 44% (36-40) Bedside Sodium 137mmol/L (135-145) Bedside Potassium 3.3mmol/L (3.5-5.0) Bedside Chloride 98mmol/L (98-110) Bedside Total CO2 26mmol/L (23-32) Anion Gap 17mmol/L (6-14) Bedside Blood Urea Nitrogen 65mg/dL (8-26) Bedside Creatinine 2.5mg/dL (0.5-1.4) Glucose Level 241mg/dL (70-99) Bedside Ionized Calcium (Walt) 0.91mmol/L (1.13-1.32) Bedside Troponin I 0.07ng/ml (<0.08) Test 11/16/16 00:02 11/16/16 00:40 11/16/16 05:25 11/16/16 08:00 White Blood Count 19.5x10^3/uL (4.0-11.0) 17.6x10^3/uL (4.0-11.0) Red Blood Count 4.24x10^6/uL (3.50-5.40) 4.10x10^6/uL (3.50-5.40) Hemoglobin 12.3g/dL (12.0-15.5) 11.8g/dL (12.0-15.5) Hematocrit 38.3% (36.0-47.0) 36.7% (36.0-47.0) Mean Corpuscular Volume 90fL (79-100) 89fL (79-100) Mean Corpuscular Hemoglobin 29pg (25-35) 29pg (25-35) Mean Corpuscular Hemoglobin Concent 32g/dL (31-37) 32g/dL (31-37) Red Cell Distribution Width 13.0% (11.5-14.5) 13.0% (11.5-14.5) Platelet Count 310x10^3/uL (140-400) 295x10^3/uL (140-400) Neutrophils (%) (Auto) 62% (31-73) 75% (31-73) Lymphocytes (%) (Auto) 25% (24-48) 18% (24-48) Monocytes (%) (Auto) 9% (0-9) 6% (0-9) Eosinophils (%) (Auto) 3% (0-3) 1% (0-3) Basophils (%) (Auto) 1% (0-3) 1% (0-3) Neutrophils # (Auto) 12.1x10^3uL (1.8-7.7) 13.3x10^3uL (1.8-7.7) Lymphocytes # (Auto) 4.9x10^3/uL (1.0-4.8) 3.1x10^3/uL (1.0-4.8) Monocytes # (Auto) 1.7x10^3/uL (0.0-1.1) 1.0x10^3/uL (0.0-1.1) Eosinophils # (Auto) 0.5x10^3/uL (0.0-0.7) 0.2x10^3/uL (0.0-0.7) Basophils # (Auto) 0.2x10^3/uL (0.0-0.2) 0.1x10^3/uL (0.0-0.2) Prothrombin Time 19.3SEC (11.7-14.0) Prothromb Time International Ratio 1.7 (0.8-1.1) Activated Partial Thromboplast Time 36SEC (24-38) Sodium Level 142mmol/L (136-145) 138mmol/L (136-145) Potassium Level 3.3mmol/L (3.5-5.1) 3.5mmol/L (3.5-5.1) Chloride Level 102mmol/L (98-107) 101mmol/L (98-107) Carbon Dioxide Level 29mmol/L (21-32) 28mmol/L (21-32) Anion Gap 11 (6-14) 9 (6-14) Blood Urea Nitrogen 75mg/dL (7-20) 66mg/dL (7-20) Creatinine 2.5mg/dL (0.6-1.0) 2.3mg/dL (0.6-1.0) Estimated GFR (Cockcroft-Gault) 20.1 22.1 Glucose Level 243mg/dL (70-99) 366mg/dL (70-99) Lactic Acid Level 2.7mmol/L (0.4-2.0) 2.2mmol/L (0.4-2.0) Calcium Level 8.5mg/dL (8.5-10.1) 8.0mg/dL (8.5-10.1) Total Bilirubin 0.3mg/dL (0.2-1.0) Direct Bilirubin 0.1mg/dL (0.0-0.2) Aspartate Amino Transf (AST/SGOT) 20U/L (15-37) Alanine Aminotransferase (ALT/SGPT) 22U/L (14-59) Alkaline Phosphatase 105U/L (46-116) Troponin I Quantitative 0.024ng/mL (0.000-0.055) DX-Dgx-U-Type Natriuretic Peptide 339pg/mL (0-124) Total Protein 6.6g/dL (6.4-8.2) Albumin 3.0g/dL (3.4-5.0) Lipase 117U/L (73-393) O2 Saturation 99% (92-99) 98% (92-99) Arterial Blood pH 7.42 (7.35-7.45) 7.46 (7.35-7.45) Arterial Blood pCO2 at Patient Temp 42mmHg (35-46) 37mmHg (35-46) Arterial Blood pO2 at Patient Temp 437mmHg (75-108) 117mmHg (75-108) Arterial Blood HCO3 26mmol/L (21-28) 26mmol/L (21-28) Arterial Blood Base Excess 2mmol/L (-3-3) 2mmol/L (-3-3) Oxyhemoglobin 98.3% Methemoglobin 0.4% (0.0-1.9) Carbon Monoxide, Quantitative 0.3% (0.0-1.9) FiO2 100 40 Segmented Neutrophils % 87% (35-66) Band Neutrophils % 1% (0-9) Lymphocytes % 9% (24-48) Monocytes % 3% (0-10) Platelet Estimate Adequate (ADEQUATE) Procalcitonin 0.15ng/mL (0.00-0.10) Laboratory Tests Test 11/15/16 21:45 11/15/16 21:51 11/15/16 23:34 11/15/16 23:35 Glucose (Fingerstick) 293mg/dL (70-99) Urine Collection Type U cath Urine Color Yellow Urine Clarity Cloudy Urine pH 5.5 Urine Specific Tyler 1.015 Urine Protein Negativemg/dL (NEG-TRACE) Urine Glucose (UA) Negativemg/dL (NEG) Urine Ketones (Stick) Negativemg/dL (NEG) Urine Blood Moderate (NEG) Urine Nitrite Negative (NEG) Urine Bilirubin Negative (NEG) Urine Urobilinogen Dipstick 0.2mg/dL (0.2 mg/dL) Urine Leukocyte Esterase Large (NEG) Urine RBC 1-2/HPF (0-2) Urine WBC 11-20/HPF (0-4) Urine Squamous Epithelial Cells Many/LPF Urine Transitional Epithelial Cells Occ/LPF Urine Bacteria Many/HPF (0-FEW) Urine Hyaline Casts Occasional/HPF Bedside Hemoglobin 15.0g/dL (12-15) Bedside Hematocrit 44% (36-40) Bedside Sodium 137mmol/L (135-145) Bedside Potassium 3.3mmol/L (3.5-5.0) Bedside Chloride 98mmol/L (98-110) Bedside Total CO2 26mmol/L (23-32) Anion Gap 17mmol/L (6-14) Bedside Blood Urea Nitrogen 65mg/dL (8-26) Bedside Creatinine 2.5mg/dL (0.5-1.4) Glucose Level 241mg/dL (70-99) Bedside Ionized Calcium (Walt) 0.91mmol/L (1.13-1.32) Bedside Troponin I 0.07ng/ml (<0.08) Test 11/16/16 00:02 11/16/16 00:40 11/16/16 05:25 11/16/16 08:00 White Blood Count 19.5x10^3/uL (4.0-11.0) 17.6x10^3/uL (4.0-11.0) Red Blood Count 4.24x10^6/uL (3.50-5.40) 4.10x10^6/uL (3.50-5.40) Hemoglobin 12.3g/dL (12.0-15.5) 11.8g/dL (12.0-15.5) Hematocrit 38.3% (36.0-47.0) 36.7% (36.0-47.0) Mean Corpuscular Volume 90fL (79-100) 89fL (79-100) Mean Corpuscular Hemoglobin 29pg (25-35) 29pg (25-35) Mean Corpuscular Hemoglobin Concent 32g/dL (31-37) 32g/dL (31-37) Red Cell Distribution Width 13.0% (11.5-14.5) 13.0% (11.5-14.5) Platelet Count 310x10^3/uL (140-400) 295x10^3/uL (140-400) Neutrophils (%) (Auto) 62% (31-73) 75% (31-73) Lymphocytes (%) (Auto) 25% (24-48) 18% (24-48) Monocytes (%) (Auto) 9% (0-9) 6% (0-9) Eosinophils (%) (Auto) 3% (0-3) 1% (0-3) Basophils (%) (Auto) 1% (0-3) 1% (0-3) Neutrophils # (Auto) 12.1x10^3uL (1.8-7.7) 13.3x10^3uL (1.8-7.7) Lymphocytes # (Auto) 4.9x10^3/uL (1.0-4.8) 3.1x10^3/uL (1.0-4.8) Monocytes # (Auto) 1.7x10^3/uL (0.0-1.1) 1.0x10^3/uL (0.0-1.1) Eosinophils # (Auto) 0.5x10^3/uL (0.0-0.7) 0.2x10^3/uL (0.0-0.7) Basophils # (Auto) 0.2x10^3/uL (0.0-0.2) 0.1x10^3/uL (0.0-0.2) Prothrombin Time 19.3SEC (11.7-14.0) Prothromb Time International Ratio 1.7 (0.8-1.1) Activated Partial Thromboplast Time 36SEC (24-38) Sodium Level 142mmol/L (136-145) 138mmol/L (136-145) Potassium Level 3.3mmol/L (3.5-5.1) 3.5mmol/L (3.5-5.1) Chloride Level 102mmol/L (98-107) 101mmol/L (98-107) Carbon Dioxide Level 29mmol/L (21-32) 28mmol/L (21-32) Anion Gap 11 (6-14) 9 (6-14) Blood Urea Nitrogen 75mg/dL (7-20) 66mg/dL (7-20) Creatinine 2.5mg/dL (0.6-1.0) 2.3mg/dL (0.6-1.0) Estimated GFR (Cockcroft-Gault) 20.1 22.1 Glucose Level 243mg/dL (70-99) 366mg/dL (70-99) Lactic Acid Level 2.7mmol/L (0.4-2.0) 2.2mmol/L (0.4-2.0) Calcium Level 8.5mg/dL (8.5-10.1) 8.0mg/dL (8.5-10.1) Total Bilirubin 0.3mg/dL (0.2-1.0) Direct Bilirubin 0.1mg/dL (0.0-0.2) Aspartate Amino Transf (AST/SGOT) 20U/L (15-37) Alanine Aminotransferase (ALT/SGPT) 22U/L (14-59) Alkaline Phosphatase 105U/L (46-116) Troponin I Quantitative 0.024ng/mL (0.000-0.055) BO-Raf-I-Type Natriuretic Peptide 339pg/mL (0-124) Total Protein 6.6g/dL (6.4-8.2) Albumin 3.0g/dL (3.4-5.0) Lipase 117U/L (73-393) O2 Saturation 99% (92-99) 98% (92-99) Arterial Blood pH 7.42 (7.35-7.45) 7.46 (7.35-7.45) Arterial Blood pCO2 at Patient Temp 42mmHg (35-46) 37mmHg (35-46) Arterial Blood pO2 at Patient Temp 437mmHg (75-108) 117mmHg (75-108) Arterial Blood HCO3 26mmol/L (21-28) 26mmol/L (21-28) Arterial Blood Base Excess 2mmol/L (-3-3) 2mmol/L (-3-3) Oxyhemoglobin 98.3% Methemoglobin 0.4% (0.0-1.9) Carbon Monoxide, Quantitative 0.3% (0.0-1.9) FiO2 100 40 Segmented Neutrophils % 87% (35-66) Band Neutrophils % 1% (0-9) Lymphocytes % 9% (24-48) Monocytes % 3% (0-10) Platelet Estimate Adequate (ADEQUATE) Procalcitonin 0.15ng/mL (0.00-0.10) Images Images Head CT negative Assessment/Plan Assessment/Plan Impression: Metabolic encephalopathy Prior pontine stroke Recommendations: Treatment of medical problems I discussed my findings with the patient's . Thank you for letting me help with the patient's care. WILLIS BERRY MD Nov 16, 2016 11:07
[2016-11-16] MEDS ORDERED: LIDOCAINE 1% / SOD BICARB 8.4% 20 ML VIAL. IJ ONE (13:45)
--- NOTE | 2016-11-16 14:13 | RAD ---
CT of the abdomen and pelvis without contrast, 11/16/2016: History: Sepsis, abdominal pain Noncontrast scans were obtained as requested. Comparison is made to a study from 01/05/2015. The heart is enlarged. Coronary artery calcifications are present. There is mild atelectasis in both posterior costophrenic angles. The gallbladder is surgically absent. The liver demonstrates a prominent Raoul's lobe. No hepatic mass is evident. No pancreatic abnormality is detected. The spleen is of normal size. There is bilateral renal cortical scarring. There is no evidence of renal obstruction or mass. There is moderate aortoiliac calcific plaquing without evidence of aneurysm. No abdominal or pelvic adenopathy is seen. The uterus is surgically absent. A Mcgee catheter is present within the collapsed urinary bladder. The bowel loops are not dilated. Multiple surgical clips are present in the lower abdomen and upper pelvis. An NG tube extends into the proximal aspect of the stomach. No free fluid or free air is evident in the abdomen or pelvis. There is diastases of the rectus abdominis musculature with anterior bulging of the intervening fascia near the midline. There is a small defect within the left side of the fascia with herniation of a small amount of abdominal fat into the subcutaneous soft tissues at this level. No bowel herniation is evident. There is also a small umbilical hernia containing only fat. IMPRESSION: 1. No acute intra-abdominal or pelvic abnormality is detected. 2. The NG tube extends into the stomach. 3. Small umbilical and left-sided ventral hernias containing only fat. PQRS Compliance Statement: One or more of the following individualized dose reduction techniques were utilized for this examination: 1. Automated exposure control 2. Adjustment of the mA and/or kV according to patient size 3. Use of iterative reconstruction technique
[2016-11-16 14:30] LABS: OBC FLU VALID
--- NOTE | 2016-11-16 14:31 | PDOC ---
Exam Dump Truck Operator Dump Truck Operator Laisha Medical Administrative Specialist Medical Administrative Specialist F Ndumbu Pre-Procedure Diagnosis Pre-Procedure Diagnosis 56 YO female ICU patient admitted with possible sepsis, now sedated on vent. Poor IV access. ARF, therefore Picc contraindicated. Bedside CVC insertion.requested. Post-Procedure Diagnosis Post-Procedure Diagnosis Same Procedure Performed Procedure Performed Bedside ICU sono guided CVC insertion Type of Anesthesia Type of Anesthesia Local Estimated Blood Loss EBL: Minimal Drain/Tubes Drains/Tubes Rt IJ 7F 3L 20cm power injectable CVC Condition of Patient Condition of Patient No change. Sedated on vent. Disposition Disposition STAT pCXR requested for CVC position. Full report to follow. LATHA COLLINS MD Nov 16, 2016 14:31
--- NOTE | 2016-11-16 14:51 | RAD ---
Portable chest, 11/16/2016, 2:41 PM: History: Check catheter insertion Comparison is made to the study of earlier the same day. A right jugular central venous catheter has been inserted extending into the superior aspect of the right atrium. An NG tube remains in place extending into the stomach. The ET tube remains in place in satisfactory position. The heart is mildly enlarged. The pulmonary vascularity is normal. No pulmonary infiltrates are seen. There is no evidence of pleural fluid or pneumothorax. IMPRESSION: 1. Interval insertion of a right jugular central venous catheter extending into the superior aspect of the right atrium. 2. No other significant change since earlier in the day.
--- NOTE | 2016-11-16 16:12 | RAD ---
Bedside ultrasound guided Central Venous Catheter placement Indication: 56-year-old female ICU patient admitted for probable sepsis, with mental status change, hypotension, leukocytosis, and acute renal failure. She is now sedated on ventilator. She has poor peripheral IV access. Bedside central venous catheter insertion has been requested. Anesthesia: Local only Sterility: All elements of maximal sterile barrier technique were utilized, including cap, mask, sterile gown, sterile gloves, large sterile sheet, appropriate hand hygiene, and 2% chlorhexidine for cutaneous antisepsis. Procedure: Informed consent was obtained from the patient's . This procedure was performed bedside in ICU. Preliminary ultrasound examination of right neck revealed wide patency of right internal jugular vein, which was documented with a single hard copy ultrasound image. Right neck was then prepped and draped in the usual sterile fashion, utilizing all elements of maximal sterile barrier technique, as described above. Using aseptic technique, local anesthesia, direct ultrasound guidance, and the micropuncture technique, successful entry was made into right internal jugular vein. The right IJ venostomy tract was then dilated and a 7 [place] triple lumen 20 cm power injectable CVC was easily advanced centrally over an angiographic guidewire. The CVC was then demonstrated to flush and aspirate normally, and was secured at the skin exit site using suture and sterile dressing. Patient tolerated the procedure well, without apparent complication. A STAT portable CXR was requested for CVC position. Impression: Successful, uneventful sono guided placement of right IJ power injectable 7 [place] triple lumen 20 cm CVC, bedside in ICU, as described.
[2016-11-16 16:42] LABS: HCO3 ABG 28 mmol/L (21-28); PCO2 ABG 50 mmHg (35-46); PH ABG 7.36 (7.35-7.45); PO2 ABG 117 mmHg (75-108); SAT O2 ABG 98 % (92-99)
[2016-11-16 16:46] LABS: FIO2 ABG 40
[2016-11-16] MEDS: INSULIN ASPART 300 UNITS/3 ML INSULN.PEN SQ SCH (17:49)
[2016-11-16] MEDS: DABIGATRAN ETEXILATE 75 MG CAPSULE. PO SCH (20:56)
[2016-11-16] MEDS ORDERED: FAMOTIDINE 20 MG/2 ML VIAL IVP SCH (21:00)
[2016-11-16] MEDS ORDERED: ENOXAPARIN 40 MG/0.4 ML DISP.SYRIN. SQ SCH (21:00)
[2016-11-16] MEDS ORDERED: CLONIDINE TTS-2 PATCH TD ONE (23:00)
[2016-11-16] MEDS: LABETALOL 20 MG/4 ML DISP.SYRIN. IVP PRN (23:00)
[2016-11-16] MEDS ORDERED: VANCOMYCIN 1.75 GM in IV NORMAL SALINE 500ML BAG 500 ML IV SCH (23:00)
[2016-11-16] MEDS: FENTANYL PF 100 MCG/2 ML VIAL. IV PRN (23:20)
[2016-11-17] VITALS (15 sets, daily range): BP systolic 81–181; BP diastolic 40–86
[2016-11-17] MEDS: PIPERACILLIN/TAZOBACTAM 2.25 GM in IV NORMAL SALINE 50ML 50 ML IV SCH ×5 (00:11→23:50)
--- NOTE | 2016-11-17 01:17 | CONS ---
DATE OF CONSULTATION: 11/16/2016 INFECTIOUS DISEASE CONSULTATION NOTE PATIENT'S ROOM: ICU 12. REQUESTING PHYSICIAN: Dr. Niño. REASON FOR CONSULTATION: Sepsis. HISTORY OF PRESENT ILLNESS: Currently, the patient is intubated and sedated, unable to provide any past medical history, history of present illness or review of systems, obtained mainly from the chart. I also discussed this with Dr. Roblero. The patient is a 56-year-old female with a history of diabetes, morbid obesity, congestive heart failure and COPD, was treated at the end of september for metabolic encephalopathy with hyperglycemia, CHF and COPD. She apparently was transferred to [facility] about 10/12/2016. Cultures on 10/16/2016, presumed from [facility] are positive in her urine for E. coli, is resistant to tetracycline and Bactrim. She eventually had gone home from [facility]. While admitted at [facility] on 10/12/2016, she did have C. diff collected that was negative. She was brought to the Emergency Room on the 11/15/2016 secondary to worsening confusion, clamminess and being cold to touch. There was reported having increased watery stools over the past 20 hours and per nursing, she has not had any stools since she has been arrived. Her white blood cell count was 19.5 on arrival and she was in acute renal failure with a creatinine of 2.5 with a baseline previously of 1.3. Urinalysis was collected. She had many squamous cells, many bacteria, 11-20 wbc's, large leukocyte esterase, nitrite was negative. She is intubated. Again, she has been placed on Levophed only, currently at 1 mcg. She was given a dose of vancomycin and placed on Rocephin. PAST MEDICAL HISTORY: Again is positive for the above-mentioned E. coli urinary tract infection, type 2 diabetes, hypertension, hyperlipidemia, morbid obesity, obstructive sleep apnea, pulmonary embolism, thrombophlebitis, reflex sympathetic dystrophy, coronary artery disease, asthma, COPD, gastroesophageal reflux disease, carotid stenosis, hypothyroidism, H. 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 PAST SURGICAL HISTORY: Positive for hysterectomy, bilateral oophorectomy, appendectomy, right thoracotomy, breast lumpectomy x 2, cholecystectomy, right wrist surgery, coronary artery stents, bladder suspension and history of pregnancies x 2 as well as deliveries. REVIEW OF SYSTEMS: Unobtainable. ALLERGIES: No known drug allergies. SOCIAL HISTORY: She has come from home, but recently hospitalized at [facility] and over at [facility]. She is . She is disabled. No alcohol. She does have a history of smoking in the past. FAMILY HISTORY: Positive for diabetes and heart disease in both her parents. CURRENT MEDICATIONS: Include vancomycin, Rocephin, Levophed, . She has got hydrocortisone x 1. She is on fentanyl and Ativan. PHYSICAL EXAMINATION: VITAL SIGNS: Temperature was 97 degrees rectally on arrival with a blood pressure of 70/35. Most recent temperature 98.2 oral, pulse 54, respirations 20, blood pressure 124/52 on a mcg of Levophed. She is on 100% on the ventilator. CONSTITUTIONAL: She is intubated. She is sedated. She is morbidly obese. HEENT: Her pupils are equal and reactive and normal conjunctivae. NECK: Supple. LUNGS: Clear for the most part. HEART: S1 and S2. ABDOMEN: Morbidly obese, soft. She has some mild tenderness in the right lower quadrant. No rebound. Mcgee is in place. EXTREMITIES: Without clubbing, cyanosis or gross edema. SKIN: Warm to touch without generalized rash. Peripheral IV sites are all clean. LABORATORY VALUES: White count 17.6 today, hemoglobin 11.8, neutrophils 75, lymphs are 18, platelets were 295. Creatinine is 2.3. She had normal liver function study tests. Glucose this morning 366. Urinalysis reviewed in the history of present illness. RADIOLOGY: KUB reveals air filled distended loop of bowel, partially seen on the right side of the abdomen. Chest x-ray reports are not back as of yet. She has atelectasis or infiltrate based on the left side from what I can see. IMPRESSION: 1. Sepsis present on admission from 11/15/2016, did get hydrocortisone x 1. 2. Leukocytosis. 3. Questionable urinary tract infection, but did have a lot of squamous cells on her urinalysis. Recent Escherichia coli urinary tract infection on the 11/16/2016, resistant to Bactrim and tetracycline, does have a history of kidney stones and previous bladder surgery. 4. Acute kidney injury. 5. Acute respiratory failure, currently intubated. 6. Questionable abdominal pain, right lower quadrant. KUB with air filled loop of bowel. 7. Reports of diarrhea prior to admit. Negative Clostridium difficile on 10/12/2016. 8. Diabetes. 9. Chronic obstructive pulmonary disease. 10. Morbid obesity. RECOMMENDATIONS: Given her antibiotic exposure and her healthcare exposure, we will change to Zosyn and Zyvox, we will add Flagyl with her recent antibiotics and her diarrhea, we will check C. diff. Obtain a CT scan of the abdomen and pelvis without contrast given her acute renal failure and avoiding oral contrast with air distention in her bowel. She has had a lot of suspected UTIs in the past with a lot of urinalysis is collected. We will obtain a flu screen. Given her acute respiratory failure and acute onset, check a procalcitonin. We will follow up on labs and cultures. This was discussed with Dr. Roblero. Previous records were reviewed. I spent 35 minutes of critical care time. Thank you for allowing me to participate in the patient's care. If you have any questions, please do not hesitate to contact me. TERRY AREVALO MD DR: JOSE/apolinar JOB#: [id number] / [id number]
[2016-11-17] MEDS: LABETALOL 20 MG/4 ML DISP.SYRIN. IVP PRN (02:16)
[2016-11-17] MEDS: METRONIDAZOLE 500mg PREMIX 100 ML IV SCH ×3 (05:05→21:56)
[2016-11-17 06:06] LABS: BASO # 0.1 x10^3/uL (0.0-0.2); BASO % 1 % (0-3); EOS % 4 % (0-3); HEMATOCRIT 35.5 % (36.0-47.0); HEMOGLOBIN 11.8 g/dL (12.0-15.5); LYMPH # 3.3 x10^3/uL (1.0-4.8); LYMPH % 28 % (24-48); MEAN CORPUSCULAR HEMOGLOBIN 29 pg (25-35); MEAN CORPUSCULAR HGB CONC 33 g/dL (31-37); MEAN CORPUSCULAR VOLUME 88 fL (79-100); MONO % 9 % (0-9); NEUT % 58 % (31-73); PLATELET COUNT 229 x10^3/uL (140-400); RED BLOOD COUNT 4.04 x10^6/uL (3.50-5.40); RED CELL DISTRIBUTION WIDTH 12.7 % (11.5-14.5); WHITE BLOOD COUNT 11.7 x10^3/uL (4.0-11.0)
[2016-11-17] MEDS: POTASSIUM CL 20MEQ-0.45% NACL 1,000 ML IV SCH (06:19)
[2016-11-17 06:46] LABS: CALCIUM 8.1 mg/dL (8.5-10.1); CREATININE 1.3 mg/dL (0.6-1.0); GFR 42.7; POTASSIUM 3.6 mmol/L (3.5-5.1)
--- NOTE | 2016-11-17 07:30 | PDOC ---
Infectious Disease Note Subjective Subjective Weak but better. Some chest discomfort ROS ROS GEN: Denies fevers, chills, sweats HEENT: Denies blurred vision, sore throat RESP: Denies shortness of air, cough GI: Denies n/v/d NEURO: Denies confusion, dizziness MSK: Denies weakness, joint pain/swelling Vital Sign Vital Signs Vital Signs Date Time Temp Pulse Resp B/P Pulse Ox O2 Delivery O2 Flow Rate FiO2 11/17/16 06:00 63 14 175/72 100 Nasal Cannula 3.5 11/17/16 04:00 98.6 98.6 Physical Exam PHYSICAL EXAM GENERAL: NAD, Alert HEENT: PERRL, OC/OP -dry NECK: Supple, no JVD, no LN LUNGS: Clear HEART: S1S2, no gallop, no murmur ABD: Soft, NT, no organomegaly, no rebound, Obese. NT Mcgee EXT: No edema, no cyanosis, [employer]: Alert, oriented x 3, no focal neurologic deficit SKIN: No rash IV: R IJ - clean Labs Lab Laboratory Tests Test 11/16/16 08:00 11/16/16 12:30 11/16/16 16:40 11/16/16 17:46 O2 Saturation 98% (92-99) 98% (92-99) Arterial Blood pH 7.46 (7.35-7.45) 7.36 (7.35-7.45) Arterial Blood pCO2 at Patient Temp 37mmHg (35-46) 50mmHg (35-46) Arterial Blood pO2 at Patient Temp 117mmHg (75-108) 117mmHg (75-108) Arterial Blood HCO3 26mmol/L (21-28) 28mmol/L (21-28) Arterial Blood Base Excess 2mmol/L (-3-3) 2mmol/L (-3-3) FiO2 40 40 Influenza Type A Antigen Negative (NEGATIVE) Influenza Type B Antigen Negative (NEGATIVE) Glucose (Fingerstick) 301mg/dL (70-99) Test 11/16/16 21:02 11/17/16 05:50 Glucose (Fingerstick) 257mg/dL (70-99) White Blood Count 11.7x10^3/uL (4.0-11.0) Red Blood Count 4.04x10^6/uL (3.50-5.40) Hemoglobin 11.8g/dL (12.0-15.5) Hematocrit 35.5% (36.0-47.0) Mean Corpuscular Volume 88fL (79-100) Mean Corpuscular Hemoglobin 29pg (25-35) Mean Corpuscular Hemoglobin Concent 33g/dL (31-37) Red Cell Distribution Width 12.7% (11.5-14.5) Platelet Count 229x10^3/uL (140-400) Neutrophils (%) (Auto) 58% (31-73) Lymphocytes (%) (Auto) 28% (24-48) Monocytes (%) (Auto) 9% (0-9) Eosinophils (%) (Auto) 4% (0-3) Basophils (%) (Auto) 1% (0-3) Neutrophils # (Auto) 6.8x10^3uL (1.8-7.7) Lymphocytes # (Auto) 3.3x10^3/uL (1.0-4.8) Monocytes # (Auto) 1.0x10^3/uL (0.0-1.1) Eosinophils # (Auto) 0.4x10^3/uL (0.0-0.7) Basophils # (Auto) 0.1x10^3/uL (0.0-0.2) Sodium Level 143mmol/L (136-145) Potassium Level 3.6mmol/L (3.5-5.1) Chloride Level 105mmol/L (98-107) Carbon Dioxide Level 30mmol/L (21-32) Anion Gap 8 (6-14) Blood Urea Nitrogen 33mg/dL (7-20) Creatinine 1.3mg/dL (0.6-1.0) Estimated GFR (Cockcroft-Gault) 42.7 Glucose Level 275mg/dL (70-99) Calcium Level 8.1mg/dL (8.5-10.1) Objective Assessment Sepsis - POA 11/15. Hydrocortisone times one, no pressors Leukocytosis - better GNR UTI but a lot of squamous on UA. Recent Ecoli UTI 10/16 Res bact/Tetra. H/ o Kidney stones and bladder surgery JENNIFER Acute Resp failure - intubated ? Abd pain in RLQ - KUB with air filled loop of bowel Reports of Diarrhea prior to admit. neg C-diff 10/12 DM H/o COPD Morbid obesity Plan Plan of Care Cont Zosyn/Flagyl D/c Zyvox F/u C-diff F/u labs and cults D/w TERRY Estrada MD Nov 17, 2016 07:30
--- NOTE | 2016-11-17 07:45 | PDOC ---
PROGRESS NOTES Subjective Subjective Patient awake, denies pain or SOA. Objective Objective Vital Signs Date Time Temp Pulse Resp B/P Pulse Ox O2 Delivery O2 Flow Rate FiO2 11/17/16 07:00 61 20 157/68 100 Nasal Cannula 3.5 11/17/16 04:00 98.6 98.6 Intake and Output 11/17/16 07:00 Intake Total 2855 ml Output Total 3635 ml Balance -780 ml Intake IV Total 2855 ml Output Urine Total 3585 ml Gastric Drainage Total 50 ml Physical Exam Abdomen: Normal bowel sounds, Soft, No tenderness Heart: Regular rate Extremities: No edema General: Alert, Oriented X3, No acute distress Lungs: Other (BS decreased throughout but CTA) Assessment Assessment Problems Medical Problems: (1) Confusion Status: Acute (2) Encephalopathy Status: Acute (3) Hypotension Status: Acute (4) Low blood pressure Status: Acute (5) Shock Status: Acute Plan Plan of Care 1. Sepsis with metabolic encephalopathy and UTI - much improved. Extubated last evening. Afebrile. WBC's much lower. Preliminary urine culture positive for gram negative rods. Continue abx as per ID. 2. DM2 - blood sugars elevated. Resume home insulins and follow. ADA diet ordered. 3. HTN - hypotension resolved. Resume her usual Clonidine po and follow. 4. COPD - stable, continue O2. 5. hypothyroidism - TSH WNL, resume home dose of po Levothyroxine. 6. acute renal failure with CKD - prerenal azotemia and elevated creatinine resolved with IVF, creatinine now at baseline. D/C IVF and encourage po fluids. Comment Review of Relevant I have reviewed the following items jim (where applicable) has been applied. Labs Laboratory Tests Test 11/15/16 21:45 11/15/16 21:51 11/15/16 23:34 11/15/16 23:35 Glucose (Fingerstick) 293mg/dL (70-99) Urine Collection Type U cath Urine Color Yellow Urine Clarity Cloudy Urine pH 5.5 Urine Specific [place] 1.015 Urine Protein Negativemg/dL (NEG-TRACE) Urine Glucose (UA) Negativemg/dL (NEG) Urine Ketones (Stick) Negativemg/dL (NEG) Urine Blood Moderate (NEG) Urine Nitrite Negative (NEG) Urine Bilirubin Negative (NEG) Urine Urobilinogen Dipstick 0.2mg/dL (0.2 mg/dL) Urine Leukocyte Esterase Large (NEG) Urine RBC 1-2/HPF (0-2) Urine WBC 11-20/HPF (0-4) Urine Squamous Epithelial Cells Many/LPF Urine Transitional Epithelial Cells Occ/LPF Urine Bacteria Many/HPF (0-FEW) Urine Hyaline Casts Occasional/HPF Bedside Hemoglobin 15.0g/dL (12-15) Bedside Hematocrit 44% (36-40) Bedside Sodium 137mmol/L (135-145) Bedside Potassium 3.3mmol/L (3.5-5.0) Bedside Chloride 98mmol/L (98-110) Bedside Total CO2 26mmol/L (23-32) Anion Gap 17mmol/L (6-14) Bedside Blood Urea Nitrogen 65mg/dL (8-26) Bedside Creatinine 2.5mg/dL (0.5-1.4) Glucose Level 241mg/dL (70-99) Bedside Ionized Calcium (Walt) 0.91mmol/L (1.13-1.32) Bedside Troponin I 0.07ng/ml (<0.08) Test 11/16/16 00:02 11/16/16 00:10 11/16/16 00:40 11/16/16 05:25 White Blood Count 19.5x10^3/uL (4.0-11.0) 17.6x10^3/uL (4.0-11.0) Red Blood Count 4.24x10^6/uL (3.50-5.40) 4.10x10^6/uL (3.50-5.40) Hemoglobin 12.3g/dL (12.0-15.5) 11.8g/dL (12.0-15.5) Hematocrit 38.3% (36.0-47.0) 36.7% (36.0-47.0) Mean Corpuscular Volume 90fL (79-100) 89fL (79-100) Mean Corpuscular Hemoglobin 29pg (25-35) 29pg (25-35) Mean Corpuscular Hemoglobin Concent 32g/dL (31-37) 32g/dL (31-37) Red Cell Distribution Width 13.0% (11.5-14.5) 13.0% (11.5-14.5) Platelet Count 310x10^3/uL (140-400) 295x10^3/uL (140-400) Neutrophils (%) (Auto) 62% (31-73) 75% (31-73) Lymphocytes (%) (Auto) 25% (24-48) 18% (24-48) Monocytes (%) (Auto) 9% (0-9) 6% (0-9) Eosinophils (%) (Auto) 3% (0-3) 1% (0-3) Basophils (%) (Auto) 1% (0-3) 1% (0-3) Neutrophils # (Auto) 12.1x10^3uL (1.8-7.7) 13.3x10^3uL (1.8-7.7) Lymphocytes # (Auto) 4.9x10^3/uL (1.0-4.8) 3.1x10^3/uL (1.0-4.8) Monocytes # (Auto) 1.7x10^3/uL (0.0-1.1) 1.0x10^3/uL (0.0-1.1) Eosinophils # (Auto) 0.5x10^3/uL (0.0-0.7) 0.2x10^3/uL (0.0-0.7) Basophils # (Auto) 0.2x10^3/uL (0.0-0.2) 0.1x10^3/uL (0.0-0.2) Prothrombin Time 19.3SEC (11.7-14.0) Prothromb Time International Ratio 1.7 (0.8-1.1) Activated Partial Thromboplast Time 36SEC (24-38) Sodium Level 142mmol/L (136-145) 138mmol/L (136-145) Potassium Level 3.3mmol/L (3.5-5.1) 3.5mmol/L (3.5-5.1) Chloride Level 102mmol/L (98-107) 101mmol/L (98-107) Carbon Dioxide Level 29mmol/L (21-32) 28mmol/L (21-32) Anion Gap 11 (6-14) 9 (6-14) Blood Urea Nitrogen 75mg/dL (7-20) 66mg/dL (7-20) Creatinine 2.5mg/dL (0.6-1.0) 2.3mg/dL (0.6-1.0) Estimated GFR (Cockcroft-Gault) 20.1 22.1 Glucose Level 243mg/dL (70-99) 366mg/dL (70-99) Lactic Acid Level 2.7mmol/L (0.4-2.0) 2.2mmol/L (0.4-2.0) Calcium Level 8.5mg/dL (8.5-10.1) 8.0mg/dL (8.5-10.1) Total Bilirubin 0.3mg/dL (0.2-1.0) Direct Bilirubin 0.1mg/dL (0.0-0.2) Aspartate Amino Transf (AST/SGOT) 20U/L (15-37) Alanine Aminotransferase (ALT/SGPT) 22U/L (14-59) Alkaline Phosphatase 105U/L (46-116) Troponin I Quantitative 0.024ng/mL (0.000-0.055) ZY-Mdc-Y-Type Natriuretic Peptide 339pg/mL (0-124) Total Protein 6.6g/dL (6.4-8.2) Albumin 3.0g/dL (3.4-5.0) Lipase 117U/L (73-393) Nasal Screen MRSA (PCR) Negative (Negative) O2 Saturation 99% (92-99) Arterial Blood pH 7.42 (7.35-7.45) Arterial Blood pCO2 at Patient Temp 42mmHg (35-46) Arterial Blood pO2 at Patient Temp 437mmHg (75-108) Arterial Blood HCO3 26mmol/L (21-28) Arterial Blood Base Excess 2mmol/L (-3-3) Oxyhemoglobin 98.3% Methemoglobin 0.4% (0.0-1.9) Carbon Monoxide, Quantitative 0.3% (0.0-1.9) FiO2 100 Segmented Neutrophils % 87% (35-66) Band Neutrophils % 1% (0-9) Lymphocytes % 9% (24-48) Monocytes % 3% (0-10) Platelet Estimate Adequate (ADEQUATE) Procalcitonin 0.15ng/mL (0.00-0.10) Thyroid Stimulating Hormone (TSH) 2.411uIU/mL (0.358-3.74) Test 11/16/16 08:00 11/16/16 12:30 11/16/16 16:40 11/16/16 17:46 O2 Saturation 98% (92-99) 98% (92-99) Arterial Blood pH 7.46 (7.35-7.45) 7.36 (7.35-7.45) Arterial Blood pCO2 at Patient Temp 37mmHg (35-46) 50mmHg (35-46) Arterial Blood pO2 at Patient Temp 117mmHg (75-108) 117mmHg (75-108) Arterial Blood HCO3 26mmol/L (21-28) 28mmol/L (21-28) Arterial Blood Base Excess 2mmol/L (-3-3) 2mmol/L (-3-3) FiO2 40 40 Influenza Type A Antigen Negative (NEGATIVE) Influenza Type B Antigen Negative (NEGATIVE) Glucose (Fingerstick) 301mg/dL (70-99) Test 11/16/16 21:02 11/17/16 05:50 Glucose (Fingerstick) 257mg/dL (70-99) White Blood Count 11.7x10^3/uL (4.0-11.0) Red Blood Count 4.04x10^6/uL (3.50-5.40) Hemoglobin 11.8g/dL (12.0-15.5) Hematocrit 35.5% (36.0-47.0) Mean Corpuscular Volume 88fL (79-100) Mean Corpuscular Hemoglobin 29pg (25-35) Mean Corpuscular Hemoglobin Concent 33g/dL (31-37) Red Cell Distribution Width 12.7% (11.5-14.5) Platelet Count 229x10^3/uL (140-400) Neutrophils (%) (Auto) 58% (31-73) Lymphocytes (%) (Auto) 28% (24-48) Monocytes (%) (Auto) 9% (0-9) Eosinophils (%) (Auto) 4% (0-3) Basophils (%) (Auto) 1% (0-3) Neutrophils # (Auto) 6.8x10^3uL (1.8-7.7) Lymphocytes # (Auto) 3.3x10^3/uL (1.0-4.8) Monocytes # (Auto) 1.0x10^3/uL (0.0-1.1) Eosinophils # (Auto) 0.4x10^3/uL (0.0-0.7) Basophils # (Auto) 0.1x10^3/uL (0.0-0.2) Sodium Level 143mmol/L (136-145) Potassium Level 3.6mmol/L (3.5-5.1) Chloride Level 105mmol/L (98-107) Carbon Dioxide Level 30mmol/L (21-32) Anion Gap 8 (6-14) Blood Urea Nitrogen 33mg/dL (7-20) Creatinine 1.3mg/dL (0.6-1.0) Estimated GFR (Cockcroft-Gault) 42.7 Glucose Level 275mg/dL (70-99) Calcium Level 8.1mg/dL (8.5-10.1) Laboratory Tests Test 11/16/16 08:00 11/16/16 12:30 11/16/16 16:40 11/16/16 17:46 O2 Saturation 98% (92-99) 98% (92-99) Arterial Blood pH 7.46 (7.35-7.45) 7.36 (7.35-7.45) Arterial Blood pCO2 at Patient Temp 37mmHg (35-46) 50mmHg (35-46) Arterial Blood pO2 at Patient Temp 117mmHg (75-108) 117mmHg (75-108) Arterial Blood HCO3 26mmol/L (21-28) 28mmol/L (21-28) Arterial Blood Base Excess 2mmol/L (-3-3) 2mmol/L (-3-3) FiO2 40 40 Influenza Type A Antigen Negative (NEGATIVE) Influenza Type B Antigen Negative (NEGATIVE) Glucose (Fingerstick) 301mg/dL (70-99) Test 11/16/16 21:02 11/17/16 05:50 Glucose (Fingerstick) 257mg/dL (70-99) White Blood Count 11.7x10^3/uL (4.0-11.0) Red Blood Count 4.04x10^6/uL (3.50-5.40) Hemoglobin 11.8g/dL (12.0-15.5) Hematocrit 35.5% (36.0-47.0) Mean Corpuscular Volume 88fL (79-100) Mean Corpuscular Hemoglobin 29pg (25-35) Mean Corpuscular Hemoglobin Concent 33g/dL (31-37) Red Cell Distribution Width 12.7% (11.5-14.5) Platelet Count 229x10^3/uL (140-400) Neutrophils (%) (Auto) 58% (31-73) Lymphocytes (%) (Auto) 28% (24-48) Monocytes (%) (Auto) 9% (0-9) Eosinophils (%) (Auto) 4% (0-3) Basophils (%) (Auto) 1% (0-3) Neutrophils # (Auto) 6.8x10^3uL (1.8-7.7) Lymphocytes # (Auto) 3.3x10^3/uL (1.0-4.8) Monocytes # (Auto) 1.0x10^3/uL (0.0-1.1) Eosinophils # (Auto) 0.4x10^3/uL (0.0-0.7) Basophils # (Auto) 0.1x10^3/uL (0.0-0.2) Sodium Level 143mmol/L (136-145) Potassium Level 3.6mmol/L (3.5-5.1) Chloride Level 105mmol/L (98-107) Carbon Dioxide Level 30mmol/L (21-32) Anion Gap 8 (6-14) Blood Urea Nitrogen 33mg/dL (7-20) Creatinine 1.3mg/dL (0.6-1.0) Estimated GFR (Cockcroft-Gault) 42.7 Glucose Level 275mg/dL (70-99) Calcium Level 8.1mg/dL (8.5-10.1) Microbiology 11/16/16 Blood Culture - Preliminary, Resulted NO GROWTH AFTER 1 DAY 11/15/16 Urine Culture - Preliminary, Resulted 11/15/16 Urine Culture Result 1 (CANDACE) - Preliminary, Resulted Medications Current Medications Propofol 50 ml @ As Directed STK-MED ONCE IV ; Start 11/15/16 at 22:12; Stop at 22:13; Status DC Fentanyl Citrate (Fentanyl 600 Mcg/30 ml RATE REVIEWER) 30 ml @ 0 mls/hr CONT PRN IV PROTOCOL Last administered on 11/16/16 00:19; Start 11/15/16 at 22:15 Fentanyl Citrate (Fentanyl 2ml Vial) 25 mcg PRN Q1HR PRN IV COMM; Start at 22:15 Fentanyl Citrate (Fentanyl 2ml Vial) 50 mcg PRN Q1HR PRN IV COMM Last administered on 11/16/16 23:20; Start 11/15/16 at 22:15 Chlorhexidine Gluconate (Peridex) 15 ml BID MM Last administered on 11/16/16 10:13; Start 11/16/16 at 09:00; Stop 11/16/16 at 20:52; Status DC Morphine Sulfate 2 mg PRN Q1HR PRN IV COMM; Start 11/15/16 at 22:15 Morphine Sulfate 4 mg 4 mg PRN Q1HR PRN IV COMM Last administered on 11/17/16 00:12; Start 11/15/16 at 22:15 Norepinephrine Bitartrate/Sodium Chloride (Levophed Vial/ Iv Sodium Chloride 0.9 % 250ml) 258 ml @ 0 mls/hr 1X ONCE IV Last administered on 11/15/16 22:26; Start 11/15/16 at 22:30; Stop 11/15/16 at 22:31; Status DC Albuterol/ Ipratropium 3 ml 3 ml 1X ONCE NEB Last administered on 11/15/16 23 :25; Start 11/15/16 at 23:00; Stop 11/15/16 at 23:01; Status DC Sodium Chloride 1,000 ml @ 1,000 mls/hr 1X ONCE IV Last administered on 22:34; Start 11/15/16 at 23:00; Stop 11/15/16 at 23:59; Status DC Sodium Chloride 1,000 ml @ 1,000 mls/hr 1X ONCE IV Last administered on 22:34; Start 11/15/16 at 23:00; Stop 11/15/16 at 23:59; Status DC Propofol (Diprivan) 100 ml @ 0 mls/hr CONT PRN IV PER PROTOCOL Last administered on 11/16/16 01:33; Start 11/15/16 at 22:45 Lorazepam 2 mg 2 mg STK-MED ONCE .ROUTE ; Start 11/15/16 at 22:58; Stop at 22:59; Status DC Ceftriaxone Sodium/Sodium Chloride (Rocephin/Iv Sodium Chloride 0.9% 100ml) 100 ml @ 200 mls/hr Q24H IV Last administered on 11/15/16 23:26; Start 11/15/16 at 23:30; Stop 11/16/16 at 07:46; Status DC Vancomycin HCl 1 each 1 each PRN DAILY PRN MC SEE COMMENTS Last administered on 11/16/16 01:47; Start 11/15/16 at 23:15; Stop 11/16/16 at 07:46; Status DC Vancomycin HCl/ Sodium Chloride (Iv Sodium Chloride 0.9% 500ml Bag) 500 ml @ 250 mls/hr 1X ONCE IV Last administered on 11/16/16 00:25; Start 11/16/16 at 00:00; Stop 11/16/16 at 01:59; Status DC Ondansetron HCl (Zofran) 4 mg PRN Q8HRS PRN IV NAUSEA/VOMITING; Start 11/15/16 at 23:30; Stop 11/16/16 at 23:29; Status DC Morphine Sulfate 2 mg PRN Q2HR PRN IV SEVERE PAIN; Start 11/15/16 at 23:30; Stop 11/16/16 at 10:44; Status DC Lorazepam (Ativan) 1 mg 1X ONCE IV Last administered on 11/15/16 23:45; Start 11/15/16 at 23:45; Stop 11/15/16 at 23:46; Status DC Hydrocortisone Sodium Succinate (Solu-Cortef) 100 mg 1X ONCE IV Last administered on 11/16/16 01:36; Start 11/16/16 at 00:30; Stop 11/16/16 at 00:31 ; Status DC Etomidate (Amidate) 20 mg STK-MED ONCE IV ; Start 11/16/16 at 01:05; Stop at 01:06; Status DC Succinylcholine Chloride 200 mg 200 mg STK-MED ONCE .ROUTE ; Start 11/16/16 at 01:06; Stop 11/16/16 at 01:07; Status DC Potassium Chloride/Sodium Chloride 1,000 ml @ 100 mls/hr Q10H IV Last administered on 11/17/16 06:19; Start 11/16/16 at 01:30; Stop 11/17/16 at 07:38 ; Status DC Vancomycin HCl/ Sodium Chloride (Iv Sodium Chloride 0.9% 500ml Bag) 500 ml @ 250 mls/hr Q24H IV ; Start 11/16/16 at 23:00; Stop 11/16/16 at 23:00; Status DC Vancomycin HCl 1 each 1 each 1X ONCE MC ; Start 11/17/16 at 22:30; Stop at 22:31; Status Cancel Sodium Chloride 1,000 ml @ 999 mls/hr 1X ONCE IV Last administered on 02:25; Start 11/16/16 at 02:30; Stop 11/16/16 at 03:30; Status DC Linezolid 300 ml @ 300 mls/hr Q12HR IV Last administered on 11/16/16 20:26; Start 11/16/16 at 09:00; Stop 11/17/16 at 07:20; Status DC Metronidazole 100 ml @ 100 mls/hr Q8HRS IV Last administered on 11/17/16 05: 05; Start 11/16/16 at 08:00 Piperacillin Sod/ Tazobactam Sod/ Sodium Chloride (Zosyn/Iv Sodium Chloride 0.9 % 50ml) 50 ml @ 100 mls/hr Q6HRS IV Last administered on 11/17/16 06:12; Start 11/16/16 at 09:00 Insulin Aspart (Novolog) 0-9 UNITS TIDWMEALS SQ Last administered on 11/16/16 17:49; Start 11/16/16 at 09:00 Dextrose 12.5 gm 12.5 gm PRN Q15MIN PRN IV SEE COMMENTS; Start 11/16/16 at 08: 15 Levothyroxine Sodium/Sodium Chloride (Synthroid/Iv Sodium Chloride 0.9% 50ml) 5 ml @ 100 mls/hr DAILY IVP Last administered on 11/16/16 10:13; Start 11/16/16 at 09:00; Stop 11/17/16 at 07:38; Status DC Lidocaine/Sodium Bicarbonate (Buffered Lidocaine 1%) 3 ml 1X ONCE IJ Last administered on 11/16/16 14:28; Start 11/16/16 at 13:45; Stop 11/16/16 at 13:46 ; Status DC Heparin Sodium/ Sodium Chloride 60 unit 1X ONCE IV Last administered on 14:29; Start 11/16/16 at 13:45; Stop 11/16/16 at 13:46; Status DC Enoxaparin Sodium (Lovenox 40mg Syringe) 40 mg QHS SQ ; Start 11/16/16 at 21:00 ; Stop 11/16/16 at 21:00; Status DC Famotidine (Pepcid) 20 mg QHS IVP Last administered on 11/16/16 20:56; Start 11/16/16 at 21:00; Stop 11/17/16 at 07:39; Status DC Dabigatran (Pradaxa) 75 mg BID PO Last administered on 11/16/16 20:56; Start 11/16/16 at 21:00 Info (Anti-Coagulation Monitoring By Pharmacy) 1 each PRN DAILY PRN MC SEE COMMENTS; Start 11/16/16 at 20:00 Clonidine HCl (Catapres Tts-2) 1 patch WEEKLY TD ; Start 11/23/16 at 09:00; Stop 11/23/16 at 09:00; Status DC Labetalol HCl (Normodyne) 10 mg PRN Q3HRS PRN IVP HYPERTENSION, SEE COMMENTS Last administered on 11/17/16 02:16; Start 11/16/16 at 23:00 Clonidine HCl (Catapres Tts-2) 1 patch ONCE ONCE TD Last administered on 23:00; Start 11/16/16 at 23:00; Stop 11/17/16 at 07:38; Status DC Clonidine HCl (Catapres) 0.1 mg Q8HRS PO ; Start 11/17/16 at 07:45 Levothyroxine Sodium (Synthroid) 50 mcg DAILY07 PO ; Start 11/17/16 at 07:45 Active Scripts Active Nitrostat (Nitroglycerin) 0.4 Mg Tab.subl 0.4 Mg SL PRN Q5MIN PRN 30 Days Reported Lyrica (Pregabalin) 150 Mg Capsule 1 Cap PO BID Cymbalta (Duloxetine Hcl) 60 Mg Capsule.dr 1 Cap PO BID Metolazone 2.5 Mg Tablet 2 Mg PO QMWF PRN Lantus (Insulin Glargine,Hum.rec.anlog) 100 Unit/1 Ml Vial 40 Unit SQ DAILY07 Humalog (Insulin Lispro) 100 Unit/1 Ml Insuln.pen 20 Unit SQ TIDACHC Atorvastatin Calcium 20 Mg Tablet 1 Tab PO DAILY Nexium Capsule (Esomeprazole Magnesium) 40 Mg Capsule.dr 1 Cap PO DAILY Isosorbide Mononitrate Er (Isosorbide Mononitrate) 30 Mg Tab.er.24h 1 Tab PO DAILY Aspirin 81 Mg Tab.chew 1 Tab PO DAILY Novolog Mix 70-30 Flexpen Syrn (Insuln Asp Prt/Insulin Aspart) 100 Unit/1 Ml Insuln.pen 50 Unit SQ DAILY16 Pradaxa (Dabigatran Etexilate Mesylate) 150 Mg Capsule 1 Cap PO BID Levothyroxine Sodium 50 Mcg Tablet 1 Tab PO DAILY Fenofibrate (Fenofibrate,Micronized) 134 Mg Capsule 1 Cap PO DAILY Clonidine Hcl 0.1 Mg Tablet 0.1 Mg PO TID Zanaflex (Tizanidine Hcl) 4 Mg Capsule 4 Mg PO PRN Q8HRS PRN as needed for muscle cramps no more than every 8hrs Hydrocodone-Apap 10-325 (Hydrocodone Bit/Acetaminophen) 1 Each Tablet 1 Tab PO PRN Q6HRS PRN as needed for pain every 6 hours Vitals/I & O Vital Sign - Last 24 Hours 11/16/16 11/16/16 11/16/16 11/16/16 08:00 08:00 08:09 09:00 Temp 99.1 99.1 Pulse 54 54 Resp 20 20 B/P 155/77 111/53 Pulse Ox 100 99 100 O2 Delivery Mechanical Ventilator Ventilator Ventilator Ventilator 11/16/16 11/16/16 11/16/16 11/16/16 09:13 10:00 11:12 11:21 Pulse 54 56 Resp 20 20 B/P 95/54 136/56 Pulse Ox 99 100 100 99 O2 Delivery Ventilator Ventilator Ventilator Ventilator 11/16/16 11/16/16 11/16/16 11/16/16 12:00 12:00 12:52 13:00 Temp 98.9 98.9 Pulse 54 53 Resp 20 20 B/P 135/63 112/47 Pulse Ox 100 99 100 O2 Delivery Mechanical Ventilator Ventilator Ventilator Ventilator 11/16/16 11/16/16 11/16/16 11/16/16 14:00 15:00 15:20 16:00 Pulse 54 51 Resp 20 13 B/P 100/46 108/48 Pulse Ox 100 100 99 O2 Delivery Ventilator Ventilator Ventilator Mechanical Ventilator 11/16/16 11/16/16 11/16/16 11/16/16 16:01 17:00 18:00 19:00 Temp 98.3 98.3 Pulse 53 60 60 62 Resp 13 13 B/P 118/53 144/72 148/60 159/72 Pulse Ox 100 100 100 100 O2 Delivery Ventilator Venturi Mask Venturi Mask Venturi Mask 11/16/16 11/16/16 11/16/16 11/16/16 20:00 20:00 21:00 22:00 Temp 98.8 98.8 Pulse 61 63 63 Resp 15 16 18 B/P 159/62 168/76 189/76 Pulse Ox 100 100 100 O2 Delivery Venturi Mask Venturi Mask Venturi Mask Venturi Mask 11/16/16 11/16/16 11/16/16 11/16/16 22:30 23:00 23:20 23:50 Pulse 63 64 Resp 15 18 18 B/P 197/95 197/95 Pulse Ox 100 100 100 O2 Delivery Nasal Cannula Nasal Cannula O2 Flow Rate 3.5 3.0 11/17/16 11/17/16 11/17/16 11/17/16 00:00 00:00 00:12 00:42 Temp 98.2 98.2 Pulse 66 Resp 16 16 12 B/P 172/86 Pulse Ox 99 100 100 O2 Delivery Nasal Cannula Nasal Cannula Nasal Cannula O2 Flow Rate 3.5 3.5 3.5 11/17/16 11/17/16 11/17/16 11/17/16 01:00 02:00 02:16 03:00 Pulse 66 66 66 65 Resp 12 15 B/P 155/72 181/71 181/71 159/72 Pulse Ox 100 100 100 O2 Delivery Nasal Cannula Nasal Cannula Nasal Cannula O2 Flow Rate 3.5 3.5 3.5 11/17/16 11/17/16 11/17/16 11/17/16 04:00 04:00 05:00 06:00 Temp 98.6 98.6 Pulse 65 64 63 Resp 15 13 14 B/P 170/70 168/68 175/72 Pulse Ox 100 100 100 O2 Delivery Nasal Cannula Nasal Cannula Nasal Cannula Nasal Cannula O2 Flow Rate 3.5 3.5 3.5 3.5 11/17/16 07:00 Pulse 61 Resp 20 B/P 157/68 Pulse Ox 100 O2 Delivery Nasal Cannula O2 Flow Rate 3.5 Intake and Output 11/16/16 11/16/16 11/17/16 15:00 23:00 07:00 Intake Total 400 ml 480 ml 1975 ml Output Total 600 ml 1175 ml 1860 ml Balance -200 ml -695 ml 115 ml JUSTIN TAVAREZ MD Nov 17, 2016 07:45
[2016-11-17] MEDS: CLONIDINE HCL 0.1 MG TABLET PO SCH ×3 (09:02→22:00)
[2016-11-17] MEDS: DABIGATRAN ETEXILATE 75 MG CAPSULE. PO SCH (09:02)
[2016-11-17] MEDS: LEVOTHYROXINE 50 MCG TABLET PO SCH (09:03)
[2016-11-17] MEDS: INSULIN ASPART 300 UNITS/3 ML INSULN.PEN SQ SCH ×6 (09:07→17:28)
--- NOTE | 2016-11-17 09:12 | PDOC ---
PROGRESS NOTES Assessment Problems Medical Problems: (1) Confusion Status: Acute (2) Encephalopathy Status: Acute (3) Hypotension Status: Acute (4) Low blood pressure Status: Acute (5) Shock Status: Acute Metabolic encephalopathy, better, due to sepsis from UTI Prior pontine stroke Plan will follow Subjective has some upper abdominal pain Objective Vital Signs Date Time Temp Pulse Resp B/P Pulse Ox O2 Delivery O2 Flow Rate FiO2 11/17/16 09:02 61 157/68 11/17/16 07:00 20 100 Nasal Cannula 3.5 11/17/16 04:00 98.6 98.6 Intake and Output 11/17/16 07:00 Intake Total 2855 ml Output Total 3635 ml Balance -780 ml Intake IV Total 2855 ml Output Urine Total 3585 ml Gastric Drainage Total 50 ml PHYSICAL EXAM Alert. Oriented to place and person. PERRL. EOMI. CN: no focal findings. Muscle tone: normal. Muscle strength: 3-4/5 DTR: 1+ Plantar reflex: flexor Gait: not examined in bed. Sensory exam: no abnormal findings. No cerebellar signs elicited. Review of Relevant I have reviewed the following items jim (where applicable) has been applied. Labs Laboratory Tests Test 11/15/16 21:45 11/15/16 21:51 11/15/16 23:34 11/15/16 23:35 Glucose (Fingerstick) 293mg/dL (70-99) Urine Collection Type U cath Urine Color Yellow Urine Clarity Cloudy Urine pH 5.5 Urine Specific [place] 1.015 Urine Protein Negativemg/dL (NEG-TRACE) Urine Glucose (UA) Negativemg/dL (NEG) Urine Ketones (Stick) Negativemg/dL (NEG) Urine Blood Moderate (NEG) Urine Nitrite Negative (NEG) Urine Bilirubin Negative (NEG) Urine Urobilinogen Dipstick 0.2mg/dL (0.2 mg/dL) Urine Leukocyte Esterase Large (NEG) Urine RBC 1-2/HPF (0-2) Urine WBC 11-20/HPF (0-4) Urine Squamous Epithelial Cells Many/LPF Urine Transitional Epithelial Cells Occ/LPF Urine Bacteria Many/HPF (0-FEW) Urine Hyaline Casts Occasional/HPF Bedside Hemoglobin 15.0g/dL (12-15) Bedside Hematocrit 44% (36-40) Bedside Sodium 137mmol/L (135-145) Bedside Potassium 3.3mmol/L (3.5-5.0) Bedside Chloride 98mmol/L (98-110) Bedside Total CO2 26mmol/L (23-32) Anion Gap 17mmol/L (6-14) Bedside Blood Urea Nitrogen 65mg/dL (8-26) Bedside Creatinine 2.5mg/dL (0.5-1.4) Glucose Level 241mg/dL (70-99) Bedside Ionized Calcium (Walt) 0.91mmol/L (1.13-1.32) Bedside Troponin I 0.07ng/ml (<0.08) Test 11/16/16 00:02 11/16/16 00:10 11/16/16 00:40 11/16/16 05:25 White Blood Count 19.5x10^3/uL (4.0-11.0) 17.6x10^3/uL (4.0-11.0) Red Blood Count 4.24x10^6/uL (3.50-5.40) 4.10x10^6/uL (3.50-5.40) Hemoglobin 12.3g/dL (12.0-15.5) 11.8g/dL (12.0-15.5) Hematocrit 38.3% (36.0-47.0) 36.7% (36.0-47.0) Mean Corpuscular Volume 90fL (79-100) 89fL (79-100) Mean Corpuscular Hemoglobin 29pg (25-35) 29pg (25-35) Mean Corpuscular Hemoglobin Concent 32g/dL (31-37) 32g/dL (31-37) Red Cell Distribution Width 13.0% (11.5-14.5) 13.0% (11.5-14.5) Platelet Count 310x10^3/uL (140-400) 295x10^3/uL (140-400) Neutrophils (%) (Auto) 62% (31-73) 75% (31-73) Lymphocytes (%) (Auto) 25% (24-48) 18% (24-48) Monocytes (%) (Auto) 9% (0-9) 6% (0-9) Eosinophils (%) (Auto) 3% (0-3) 1% (0-3) Basophils (%) (Auto) 1% (0-3) 1% (0-3) Neutrophils # (Auto) 12.1x10^3uL (1.8-7.7) 13.3x10^3uL (1.8-7.7) Lymphocytes # (Auto) 4.9x10^3/uL (1.0-4.8) 3.1x10^3/uL (1.0-4.8) Monocytes # (Auto) 1.7x10^3/uL (0.0-1.1) 1.0x10^3/uL (0.0-1.1) Eosinophils # (Auto) 0.5x10^3/uL (0.0-0.7) 0.2x10^3/uL (0.0-0.7) Basophils # (Auto) 0.2x10^3/uL (0.0-0.2) 0.1x10^3/uL (0.0-0.2) Prothrombin Time 19.3SEC (11.7-14.0) Prothromb Time International Ratio 1.7 (0.8-1.1) Activated Partial Thromboplast Time 36SEC (24-38) Sodium Level 142mmol/L (136-145) 138mmol/L (136-145) Potassium Level 3.3mmol/L (3.5-5.1) 3.5mmol/L (3.5-5.1) Chloride Level 102mmol/L (98-107) 101mmol/L (98-107) Carbon Dioxide Level 29mmol/L (21-32) 28mmol/L (21-32) Anion Gap 11 (6-14) 9 (6-14) Blood Urea Nitrogen 75mg/dL (7-20) 66mg/dL (7-20) Creatinine 2.5mg/dL (0.6-1.0) 2.3mg/dL (0.6-1.0) Estimated GFR (Cockcroft-Gault) 20.1 22.1 Glucose Level 243mg/dL (70-99) 366mg/dL (70-99) Lactic Acid Level 2.7mmol/L (0.4-2.0) 2.2mmol/L (0.4-2.0) Calcium Level 8.5mg/dL (8.5-10.1) 8.0mg/dL (8.5-10.1) Total Bilirubin 0.3mg/dL (0.2-1.0) Direct Bilirubin 0.1mg/dL (0.0-0.2) Aspartate Amino Transf (AST/SGOT) 20U/L (15-37) Alanine Aminotransferase (ALT/SGPT) 22U/L (14-59) Alkaline Phosphatase 105U/L (46-116) Troponin I Quantitative 0.024ng/mL (0.000-0.055) EM-Fim-O-Type Natriuretic Peptide 339pg/mL (0-124) Total Protein 6.6g/dL (6.4-8.2) Albumin 3.0g/dL (3.4-5.0) Lipase 117U/L (73-393) Nasal Screen MRSA (PCR) Negative (Negative) O2 Saturation 99% (92-99) Arterial Blood pH 7.42 (7.35-7.45) Arterial Blood pCO2 at Patient Temp 42mmHg (35-46) Arterial Blood pO2 at Patient Temp 437mmHg (75-108) Arterial Blood HCO3 26mmol/L (21-28) Arterial Blood Base Excess 2mmol/L (-3-3) Oxyhemoglobin 98.3% Methemoglobin 0.4% (0.0-1.9) Carbon Monoxide, Quantitative 0.3% (0.0-1.9) FiO2 100 Segmented Neutrophils % 87% (35-66) Band Neutrophils % 1% (0-9) Lymphocytes % 9% (24-48) Monocytes % 3% (0-10) Platelet Estimate Adequate (ADEQUATE) Procalcitonin 0.15ng/mL (0.00-0.10) Thyroid Stimulating Hormone (TSH) 2.411uIU/mL (0.358-3.74) Test 11/16/16 08:00 11/16/16 12:30 11/16/16 16:40 11/16/16 17:46 O2 Saturation 98% (92-99) 98% (92-99) Arterial Blood pH 7.46 (7.35-7.45) 7.36 (7.35-7.45) Arterial Blood pCO2 at Patient Temp 37mmHg (35-46) 50mmHg (35-46) Arterial Blood pO2 at Patient Temp 117mmHg (75-108) 117mmHg (75-108) Arterial Blood HCO3 26mmol/L (21-28) 28mmol/L (21-28) Arterial Blood Base Excess 2mmol/L (-3-3) 2mmol/L (-3-3) FiO2 40 40 Influenza Type A Antigen Negative (NEGATIVE) Influenza Type B Antigen Negative (NEGATIVE) Glucose (Fingerstick) 301mg/dL (70-99) Test 11/16/16 21:02 11/17/16 05:50 Glucose (Fingerstick) 257mg/dL (70-99) White Blood Count 11.7x10^3/uL (4.0-11.0) Red Blood Count 4.04x10^6/uL (3.50-5.40) Hemoglobin 11.8g/dL (12.0-15.5) Hematocrit 35.5% (36.0-47.0) Mean Corpuscular Volume 88fL (79-100) Mean Corpuscular Hemoglobin 29pg (25-35) Mean Corpuscular Hemoglobin Concent 33g/dL (31-37) Red Cell Distribution Width 12.7% (11.5-14.5) Platelet Count 229x10^3/uL (140-400) Neutrophils (%) (Auto) 58% (31-73) Lymphocytes (%) (Auto) 28% (24-48) Monocytes (%) (Auto) 9% (0-9) Eosinophils (%) (Auto) 4% (0-3) Basophils (%) (Auto) 1% (0-3) Neutrophils # (Auto) 6.8x10^3uL (1.8-7.7) Lymphocytes # (Auto) 3.3x10^3/uL (1.0-4.8) Monocytes # (Auto) 1.0x10^3/uL (0.0-1.1) Eosinophils # (Auto) 0.4x10^3/uL (0.0-0.7) Basophils # (Auto) 0.1x10^3/uL (0.0-0.2) Sodium Level 143mmol/L (136-145) Potassium Level 3.6mmol/L (3.5-5.1) Chloride Level 105mmol/L (98-107) Carbon Dioxide Level 30mmol/L (21-32) Anion Gap 8 (6-14) Blood Urea Nitrogen 33mg/dL (7-20) Creatinine 1.3mg/dL (0.6-1.0) Estimated GFR (Cockcroft-Gault) 42.7 Glucose Level 275mg/dL (70-99) Calcium Level 8.1mg/dL (8.5-10.1) Laboratory Tests Test 11/16/16 12:30 11/16/16 16:40 11/16/16 17:46 11/16/16 21:02 Influenza Type A Antigen Negative (NEGATIVE) Influenza Type B Antigen Negative (NEGATIVE) O2 Saturation 98% (92-99) Arterial Blood pH 7.36 (7.35-7.45) Arterial Blood pCO2 at Patient Temp 50mmHg (35-46) Arterial Blood pO2 at Patient Temp 117mmHg (75-108) Arterial Blood HCO3 28mmol/L (21-28) Arterial Blood Base Excess 2mmol/L (-3-3) FiO2 40 Glucose (Fingerstick) 301mg/dL (70-99) 257mg/dL (70-99) Test 11/17/16 05:50 White Blood Count 11.7x10^3/uL (4.0-11.0) Red Blood Count 4.04x10^6/uL (3.50-5.40) Hemoglobin 11.8g/dL (12.0-15.5) Hematocrit 35.5% (36.0-47.0) Mean Corpuscular Volume 88fL (79-100) Mean Corpuscular Hemoglobin 29pg (25-35) Mean Corpuscular Hemoglobin Concent 33g/dL (31-37) Red Cell Distribution Width 12.7% (11.5-14.5) Platelet Count 229x10^3/uL (140-400) Neutrophils (%) (Auto) 58% (31-73) Lymphocytes (%) (Auto) 28% (24-48) Monocytes (%) (Auto) 9% (0-9) Eosinophils (%) (Auto) 4% (0-3) Basophils (%) (Auto) 1% (0-3) Neutrophils # (Auto) 6.8x10^3uL (1.8-7.7) Lymphocytes # (Auto) 3.3x10^3/uL (1.0-4.8) Monocytes # (Auto) 1.0x10^3/uL (0.0-1.1) Eosinophils # (Auto) 0.4x10^3/uL (0.0-0.7) Basophils # (Auto) 0.1x10^3/uL (0.0-0.2) Sodium Level 143mmol/L (136-145) Potassium Level 3.6mmol/L (3.5-5.1) Chloride Level 105mmol/L (98-107) Carbon Dioxide Level 30mmol/L (21-32) Anion Gap 8 (6-14) Blood Urea Nitrogen 33mg/dL (7-20) Creatinine 1.3mg/dL (0.6-1.0) Estimated GFR (Cockcroft-Gault) 42.7 Glucose Level 275mg/dL (70-99) Calcium Level 8.1mg/dL (8.5-10.1) Microbiology 11/16/16 Blood Culture - Preliminary, Resulted NO GROWTH AFTER 1 DAY 11/15/16 Urine Culture - Preliminary, Resulted 11/15/16 Urine Culture Result 1 (CANDACE) - Preliminary, Resulted Medications Current Medications Propofol 50 ml @ As Directed STK-MED ONCE IV ; Start 11/15/16 at 22:12; Stop at 22:13; Status DC Fentanyl Citrate (Fentanyl 600 Mcg/30 ml [employer]) 30 ml @ 0 mls/hr CONT PRN IV PROTOCOL Last administered on 11/16/16 00:19; Start 11/15/16 at 22:15 Fentanyl Citrate (Fentanyl 2ml Vial) 25 mcg PRN Q1HR PRN IV COMM; Start at 22:15 Fentanyl Citrate (Fentanyl 2ml Vial) 50 mcg PRN Q1HR PRN IV COMM Last administered on 11/16/16 23:20; Start 11/15/16 at 22:15 Chlorhexidine Gluconate (Peridex) 15 ml BID MM Last administered on 11/16/16 10:13; Start 11/16/16 at 09:00; Stop 11/16/16 at 20:52; Status DC Morphine Sulfate 2 mg PRN Q1HR PRN IV COMM; Start 11/15/16 at 22:15 Morphine Sulfate 4 mg 4 mg PRN Q1HR PRN IV COMM Last administered on 11/17/16 00:12; Start 11/15/16 at 22:15 Norepinephrine Bitartrate/Sodium Chloride (Levophed Vial/ Iv Sodium Chloride 0.9 % 250ml) 258 ml @ 0 mls/hr 1X ONCE IV Last administered on 11/15/16 22:26; Start 11/15/16 at 22:30; Stop 11/15/16 at 22:31; Status DC Albuterol/ Ipratropium 3 ml 3 ml 1X ONCE NEB Last administered on 11/15/16 23 :25; Start 11/15/16 at 23:00; Stop 11/15/16 at 23:01; Status DC Sodium Chloride 1,000 ml @ 1,000 mls/hr 1X ONCE IV Last administered on 22:34; Start 11/15/16 at 23:00; Stop 11/15/16 at 23:59; Status DC Sodium Chloride 1,000 ml @ 1,000 mls/hr 1X ONCE IV Last administered on 22:34; Start 11/15/16 at 23:00; Stop 11/15/16 at 23:59; Status DC Propofol (Diprivan) 100 ml @ 0 mls/hr CONT PRN IV PER PROTOCOL Last administered on 11/16/16 01:33; Start 11/15/16 at 22:45 Lorazepam 2 mg 2 mg STK-MED ONCE .ROUTE ; Start 11/15/16 at 22:58; Stop at 22:59; Status DC Ceftriaxone Sodium/Sodium Chloride (Rocephin/Iv Sodium Chloride 0.9% 100ml) 100 ml @ 200 mls/hr Q24H IV Last administered on 11/15/16 23:26; Start 11/15/16 at 23:30; Stop 11/16/16 at 07:46; Status DC Vancomycin HCl 1 each 1 each PRN DAILY PRN MC SEE COMMENTS Last administered on 11/16/16 01:47; Start 11/15/16 at 23:15; Stop 11/16/16 at 07:46; Status DC Vancomycin HCl/ Sodium Chloride (Iv Sodium Chloride 0.9% 500ml Bag) 500 ml @ 250 mls/hr 1X ONCE IV Last administered on 11/16/16 00:25; Start 11/16/16 at 00:00; Stop 11/16/16 at 01:59; Status DC Ondansetron HCl (Zofran) 4 mg PRN Q8HRS PRN IV NAUSEA/VOMITING; Start 11/15/16 at 23:30; Stop 11/16/16 at 23:29; Status DC Morphine Sulfate 2 mg PRN Q2HR PRN IV SEVERE PAIN; Start 11/15/16 at 23:30; Stop 11/16/16 at 10:44; Status DC Lorazepam (Ativan) 1 mg 1X ONCE IV Last administered on 11/15/16 23:45; Start 11/15/16 at 23:45; Stop 11/15/16 at 23:46; Status DC Hydrocortisone Sodium Succinate (Solu-Cortef) 100 mg 1X ONCE IV Last administered on 11/16/16 01:36; Start 11/16/16 at 00:30; Stop 11/16/16 at 00:31 ; Status DC Etomidate (Amidate) 20 mg STK-MED ONCE IV ; Start 11/16/16 at 01:05; Stop at 01:06; Status DC Succinylcholine Chloride 200 mg 200 mg STK-MED ONCE .ROUTE ; Start 11/16/16 at 01:06; Stop 11/16/16 at 01:07; Status DC Potassium Chloride/Sodium Chloride 1,000 ml @ 100 mls/hr Q10H IV Last administered on 11/17/16 06:19; Start 11/16/16 at 01:30; Stop 11/17/16 at 07:38 ; Status DC Vancomycin HCl/ Sodium Chloride (Iv Sodium Chloride 0.9% 500ml Bag) 500 ml @ 250 mls/hr Q24H IV ; Start 11/16/16 at 23:00; Stop 11/16/16 at 23:00; Status DC Vancomycin HCl 1 each 1 each 1X ONCE MC ; Start 11/17/16 at 22:30; Stop at 22:31; Status Cancel Sodium Chloride 1,000 ml @ 999 mls/hr 1X ONCE IV Last administered on 02:25; Start 11/16/16 at 02:30; Stop 11/16/16 at 03:30; Status DC Linezolid 300 ml @ 300 mls/hr Q12HR IV Last administered on 11/16/16 20:26; Start 11/16/16 at 09:00; Stop 11/17/16 at 07:20; Status DC Metronidazole 100 ml @ 100 mls/hr Q8HRS IV Last administered on 11/17/16 05: 05; Start 11/16/16 at 08:00 Piperacillin Sod/ Tazobactam Sod/ Sodium Chloride (Zosyn/Iv Sodium Chloride 0.9 % 50ml) 50 ml @ 100 mls/hr Q6HRS IV Last administered on 11/17/16 06:12; Start 11/16/16 at 09:00 Insulin Aspart (Novolog) 0-9 UNITS TIDWMEALS SQ Last administered on 11/17/16 09:07; Start 11/16/16 at 09:00 Dextrose 12.5 gm 12.5 gm PRN Q15MIN PRN IV SEE COMMENTS; Start 11/16/16 at 08: 15 Levothyroxine Sodium/Sodium Chloride (Synthroid/Iv Sodium Chloride 0.9% 50ml) 5 ml @ 100 mls/hr DAILY IVP Last administered on 11/16/16 10:13; Start 11/16/16 at 09:00; Stop 11/17/16 at 07:38; Status DC Lidocaine/Sodium Bicarbonate (Buffered Lidocaine 1%) 3 ml 1X ONCE IJ Last administered on 11/16/16 14:28; Start 11/16/16 at 13:45; Stop 11/16/16 at 13:46 ; Status DC Heparin Sodium/ Sodium Chloride 60 unit 1X ONCE IV Last administered on 14:29; Start 11/16/16 at 13:45; Stop 11/16/16 at 13:46; Status DC Enoxaparin Sodium (Lovenox 40mg Syringe) 40 mg QHS SQ ; Start 11/16/16 at 21:00 ; Stop 11/16/16 at 21:00; Status DC Famotidine (Pepcid) 20 mg QHS IVP Last administered on 11/16/16 20:56; Start 11/16/16 at 21:00; Stop 11/17/16 at 07:39; Status DC Dabigatran (Pradaxa) 75 mg BID PO Last administered on 11/17/16 09:02; Start 11/16/16 at 21:00 Info (Anti-Coagulation Monitoring By Pharmacy) 1 each PRN DAILY PRN MC SEE COMMENTS; Start 11/16/16 at 20:00 Clonidine HCl (Catapres Tts-2) 1 patch WEEKLY TD ; Start 11/23/16 at 09:00; Stop 11/23/16 at 09:00; Status DC Labetalol HCl (Normodyne) 10 mg PRN Q3HRS PRN IVP HYPERTENSION, SEE COMMENTS Last administered on 11/17/16 02:16; Start 11/16/16 at 23:00 Clonidine HCl (Catapres Tts-2) 1 patch ONCE ONCE TD Last administered on 23:00; Start 11/16/16 at 23:00; Stop 11/17/16 at 07:38; Status DC Clonidine HCl (Catapres) 0.1 mg Q8HRS PO Last administered on 11/17/16 09:02; Start 11/17/16 at 07:45 Levothyroxine Sodium (Synthroid) 50 mcg DAILY07 PO Last administered on 09:03; Start 11/17/16 at 07:45 Insulin Detemir (Levemir) 40 units QHS SQ ; Start 11/17/16 at 21:00 Insulin Aspart (Novolog) 10 units TIDAC SQ Last administered on 11/17/16 09:07 ; Start 11/17/16 at 07:45 Active Scripts Active Nitrostat (Nitroglycerin) 0.4 Mg Tab.subl 0.4 Mg SL PRN Q5MIN PRN 30 Days Reported Lyrica (Pregabalin) 150 Mg Capsule 1 Cap PO BID Cymbalta (Duloxetine Hcl) 60 Mg Capsule. 1 Cap PO BID Metolazone 2.5 Mg Tablet 2 Mg PO QMWF PRN Lantus (Insulin Glargine,Hum.rec.anlog) 100 Unit/1 Ml Vial 40 Unit SQ DAILY07 Humalog (Insulin Lispro) 100 Unit/1 Ml Insuln.pen 20 Unit SQ TIDACHC Atorvastatin Calcium 20 Mg Tablet 1 Tab PO DAILY Nexium Capsule (Esomeprazole Magnesium) 40 Mg Capsule. 1 Cap PO DAILY Isosorbide Mononitrate Er (Isosorbide Mononitrate) 30 Mg Tab.er.24h 1 Tab PO DAILY Aspirin 81 Mg Tab.chew 1 Tab PO DAILY Novolog Mix 70-30 Flexpen Syrn (Insuln Asp Prt/Insulin Aspart) 100 Unit/1 Ml Insuln.pen 50 Unit SQ DAILY16 Pradaxa (Dabigatran Etexilate Mesylate) 150 Mg Capsule 1 Cap PO BID Levothyroxine Sodium 50 Mcg Tablet 1 Tab PO DAILY Fenofibrate (Fenofibrate,Micronized) 134 Mg Capsule 1 Cap PO DAILY Clonidine Hcl 0.1 Mg Tablet 0.1 Mg PO TID Zanaflex (Tizanidine Hcl) 4 Mg Capsule 4 Mg PO PRN Q8HRS PRN as needed for muscle cramps no more than every 8hrs Hydrocodone-Apap 10-325 (Hydrocodone Bit/Acetaminophen) 1 Each Tablet 1 Tab PO PRN Q6HRS PRN as needed for pain every 6 hours Vitals/I & O Vital Sign - Last 24 Hours 11/16/16 11/16/16 11/16/16 11/16/16 09:13 10:00 11:12 11:21 Pulse 54 56 Resp 20 20 B/P 95/54 136/56 Pulse Ox 99 100 100 99 O2 Delivery Ventilator Ventilator Ventilator Ventilator 11/16/16 11/16/16 11/16/16 11/16/16 12:00 12:00 12:52 13:00 Temp 98.9 98.9 Pulse 54 53 Resp 20 20 B/P 135/63 112/47 Pulse Ox 100 99 100 O2 Delivery Mechanical Ventilator Ventilator Ventilator Ventilator 11/16/16 11/16/16 11/16/16 11/16/16 14:00 15:00 15:20 16:00 Pulse 54 51 Resp 20 13 B/P 100/46 108/48 Pulse Ox 100 100 99 O2 Delivery Ventilator Ventilator Ventilator Mechanical Ventilator 11/16/16 11/16/16 11/16/16 11/16/16 16:01 17:00 18:00 19:00 Temp 98.3 98.3 Pulse 53 60 60 62 Resp 13 13 B/P 118/53 144/72 148/60 159/72 Pulse Ox 100 100 100 100 O2 Delivery Ventilator Venturi Mask Venturi Mask Venturi Mask 11/16/16 11/16/16 11/16/16 11/16/16 20:00 20:00 21:00 22:00 Temp 98.8 98.8 Pulse 61 63 63 Resp 15 16 18 B/P 159/62 168/76 189/76 Pulse Ox 100 100 100 O2 Delivery Venturi Mask Venturi Mask Venturi Mask Venturi Mask 11/16/16 11/16/16 11/16/16 11/16/16 22:30 23:00 23:20 23:50 Pulse 63 64 Resp 15 18 18 B/P 197/95 197/95 Pulse Ox 100 100 100 O2 Delivery Nasal Cannula Nasal Cannula O2 Flow Rate 3.5 3.0 11/17/16 11/17/16 11/17/16 11/17/16 00:00 00:00 00:12 00:42 Temp 98.2 98.2 Pulse 66 Resp 16 16 12 B/P 172/86 Pulse Ox 99 100 100 O2 Delivery Nasal Cannula Nasal Cannula Nasal Cannula O2 Flow Rate 3.5 3.5 3.5 11/17/16 11/17/16 11/17/16 11/17/16 01:00 02:00 02:16 03:00 Pulse 66 66 66 65 Resp 12 12 15 B/P 155/72 181/71 181/71 159/72 Pulse Ox 100 100 100 O2 Delivery Nasal Cannula Nasal Cannula Nasal Cannula O2 Flow Rate 3.5 3.5 3.5 11/17/16 11/17/16 11/17/16 11/17/16 04:00 04:00 05:00 06:00 Temp 98.6 98.6 Pulse 65 64 63 Resp 15 13 14 B/P 170/70 168/68 175/72 Pulse Ox 100 100 100 O2 Delivery Nasal Cannula Nasal Cannula Nasal Cannula Nasal Cannula O2 Flow Rate 3.5 3.5 3.5 3.5 11/17/16 11/17/16 07:00 09:02 Pulse 61 61 Resp 20 B/P 157/68 157/68 Pulse Ox 100 O2 Delivery Nasal Cannula O2 Flow Rate 3.5 Intake and Output 11/16/16 11/16/16 11/17/16 15:00 23:00 07:00 Intake Total 400 ml 480 ml 1975 ml Output Total 600 ml 1175 ml 1860 ml Balance -200 ml -695 ml 115 ml WILLIS BERRY MD Nov 17, 2016 09:12
[2016-11-17] MEDS ORDERED: METOLAZONE 2.5 MG TABLET PO PRN (09:30)
[2016-11-17] MEDS ORDERED: NITROGLYCERIN SUBLINGUAL 0.4 MG BOTTLE OF 25. SL PRN (09:30)
[2016-11-17] MEDS ORDERED: NON FORMULARY ITEM (Esomeprazole Magnesium (Nexium Capsule) 1 CAP) PO SCH (09:45)
[2016-11-17] MEDS ORDERED: ASPIRIN 81 MG TAB.CHEW PO SCH (09:45)
[2016-11-17] MEDS ORDERED: tiZANidine 4 MG TABLET. PO PRN (09:45)
[2016-11-17] MEDS: ANTI-COAG MONITOR BY PHARMACY. MC PRN (10:13)
[2016-11-17] MEDS: ASPIRIN 81 MG TAB.CHEW PO SCH (10:27)
[2016-11-17] MEDS: ISOSORBIDE MONONITRATE ER 30 MG TAB.ER.24H PO SCH (10:28)
[2016-11-17] MEDS: PREGABALIN 75 MG CAPSULE PO SCH ×2 (10:28→21:02)
[2016-11-17] MEDS: DULOXETINE HCL 30 MG CAPSULE.DR. PO SCH ×2 (10:28→21:02)
[2016-11-17] MEDS: FENOFIBRATE,MICRONIZED 134 MG CAPSULE PO SCH (10:29)
[2016-11-17] MEDS: PANTOPRAZOLE 40 MG TABLET. PO SCH (10:29)
--- NOTE | 2016-11-17 10:34 | PDOC ---
PULMONARY PROGRESS NOTES Subjective extubated 11/16 afternoon Vitals Vital Signs Date Time Temp Pulse Resp B/P Pulse Ox O2 Delivery O2 Flow Rate FiO2 11/17/16 09:02 61 157/68 11/17/16 09:00 20 95 Room Air 11/17/16 08:00 3.5 11/17/16 08:00 98.1 98.1 General: Alert, No acute distress Lungs: Clear Cardiovascular: S1 Abdomen: Soft Neuro Exam: Alert Extremities: Other (trace edema) Labs Laboratory Tests Test 11/15/16 21:45 11/15/16 21:51 11/15/16 23:34 11/15/16 23:35 Glucose (Fingerstick) 293mg/dL (70-99) Urine Collection Type U cath Urine Color Yellow Urine Clarity Cloudy Urine pH 5.5 Urine Specific [place] 1.015 Urine Protein Negativemg/dL (NEG-TRACE) Urine Glucose (UA) Negativemg/dL (NEG) Urine Ketones (Stick) Negativemg/dL (NEG) Urine Blood Moderate (NEG) Urine Nitrite Negative (NEG) Urine Bilirubin Negative (NEG) Urine Urobilinogen Dipstick 0.2mg/dL (0.2 mg/dL) Urine Leukocyte Esterase Large (NEG) Urine RBC 1-2/HPF (0-2) Urine WBC 11-20/HPF (0-4) Urine Squamous Epithelial Cells Many/LPF Urine Transitional Epithelial Cells Occ/LPF Urine Bacteria Many/HPF (0-FEW) Urine Hyaline Casts Occasional/HPF Bedside Hemoglobin 15.0g/dL (12-15) Bedside Hematocrit 44% (36-40) Bedside Sodium 137mmol/L (135-145) Bedside Potassium 3.3mmol/L (3.5-5.0) Bedside Chloride 98mmol/L (98-110) Bedside Total CO2 26mmol/L (23-32) Anion Gap 17mmol/L (6-14) Bedside Blood Urea Nitrogen 65mg/dL (8-26) Bedside Creatinine 2.5mg/dL (0.5-1.4) Glucose Level 241mg/dL (70-99) Bedside Ionized Calcium (Walt) 0.91mmol/L (1.13-1.32) Bedside Troponin I 0.07ng/ml (<0.08) Test 11/16/16 00:02 11/16/16 00:10 11/16/16 00:40 11/16/16 05:25 White Blood Count 19.5x10^3/uL (4.0-11.0) 17.6x10^3/uL (4.0-11.0) Red Blood Count 4.24x10^6/uL (3.50-5.40) 4.10x10^6/uL (3.50-5.40) Hemoglobin 12.3g/dL (12.0-15.5) 11.8g/dL (12.0-15.5) Hematocrit 38.3% (36.0-47.0) 36.7% (36.0-47.0) Mean Corpuscular Volume 90fL (79-100) 89fL (79-100) Mean Corpuscular Hemoglobin 29pg (25-35) 29pg (25-35) Mean Corpuscular Hemoglobin Concent 32g/dL (31-37) 32g/dL (31-37) Red Cell Distribution Width 13.0% (11.5-14.5) 13.0% (11.5-14.5) Platelet Count 310x10^3/uL (140-400) 295x10^3/uL (140-400) Neutrophils (%) (Auto) 62% (31-73) 75% (31-73) Lymphocytes (%) (Auto) 25% (24-48) 18% (24-48) Monocytes (%) (Auto) 9% (0-9) 6% (0-9) Eosinophils (%) (Auto) 3% (0-3) 1% (0-3) Basophils (%) (Auto) 1% (0-3) 1% (0-3) Neutrophils # (Auto) 12.1x10^3uL (1.8-7.7) 13.3x10^3uL (1.8-7.7) Lymphocytes # (Auto) 4.9x10^3/uL (1.0-4.8) 3.1x10^3/uL (1.0-4.8) Monocytes # (Auto) 1.7x10^3/uL (0.0-1.1) 1.0x10^3/uL (0.0-1.1) Eosinophils # (Auto) 0.5x10^3/uL (0.0-0.7) 0.2x10^3/uL (0.0-0.7) Basophils # (Auto) 0.2x10^3/uL (0.0-0.2) 0.1x10^3/uL (0.0-0.2) Prothrombin Time 19.3SEC (11.7-14.0) Prothromb Time International Ratio 1.7 (0.8-1.1) Activated Partial Thromboplast Time 36SEC (24-38) Sodium Level 142mmol/L (136-145) 138mmol/L (136-145) Potassium Level 3.3mmol/L (3.5-5.1) 3.5mmol/L (3.5-5.1) Chloride Level 102mmol/L (98-107) 101mmol/L (98-107) Carbon Dioxide Level 29mmol/L (21-32) 28mmol/L (21-32) Anion Gap 11 (6-14) 9 (6-14) Blood Urea Nitrogen 75mg/dL (7-20) 66mg/dL (7-20) Creatinine 2.5mg/dL (0.6-1.0) 2.3mg/dL (0.6-1.0) Estimated GFR (Cockcroft-Gault) 20.1 22.1 Glucose Level 243mg/dL (70-99) 366mg/dL (70-99) Lactic Acid Level 2.7mmol/L (0.4-2.0) 2.2mmol/L (0.4-2.0) Calcium Level 8.5mg/dL (8.5-10.1) 8.0mg/dL (8.5-10.1) Total Bilirubin 0.3mg/dL (0.2-1.0) Direct Bilirubin 0.1mg/dL (0.0-0.2) Aspartate Amino Transf (AST/SGOT) 20U/L (15-37) Alanine Aminotransferase (ALT/SGPT) 22U/L (14-59) Alkaline Phosphatase 105U/L (46-116) Troponin I Quantitative 0.024ng/mL (0.000-0.055) YE-Tfo-E-Type Natriuretic Peptide 339pg/mL (0-124) Total Protein 6.6g/dL (6.4-8.2) Albumin 3.0g/dL (3.4-5.0) Lipase 117U/L (73-393) Nasal Screen MRSA (PCR) Negative (Negative) O2 Saturation 99% (92-99) Arterial Blood pH 7.42 (7.35-7.45) Arterial Blood pCO2 at Patient Temp 42mmHg (35-46) Arterial Blood pO2 at Patient Temp 437mmHg (75-108) Arterial Blood HCO3 26mmol/L (21-28) Arterial Blood Base Excess 2mmol/L (-3-3) Oxyhemoglobin 98.3% Methemoglobin 0.4% (0.0-1.9) Carbon Monoxide, Quantitative 0.3% (0.0-1.9) FiO2 100 Segmented Neutrophils % 87% (35-66) Band Neutrophils % 1% (0-9) Lymphocytes % 9% (24-48) Monocytes % 3% (0-10) Platelet Estimate Adequate (ADEQUATE) Procalcitonin 0.15ng/mL (0.00-0.10) Thyroid Stimulating Hormone (TSH) 2.411uIU/mL (0.358-3.74) Test 11/16/16 08:00 11/16/16 12:30 11/16/16 16:40 11/16/16 17:46 O2 Saturation 98% (92-99) 98% (92-99) Arterial Blood pH 7.46 (7.35-7.45) 7.36 (7.35-7.45) Arterial Blood pCO2 at Patient Temp 37mmHg (35-46) 50mmHg (35-46) Arterial Blood pO2 at Patient Temp 117mmHg (75-108) 117mmHg (75-108) Arterial Blood HCO3 26mmol/L (21-28) 28mmol/L (21-28) Arterial Blood Base Excess 2mmol/L (-3-3) 2mmol/L (-3-3) FiO2 40 40 Influenza Type A Antigen Negative (NEGATIVE) Influenza Type B Antigen Negative (NEGATIVE) Glucose (Fingerstick) 301mg/dL (70-99) Test 11/16/16 21:02 11/17/16 05:50 Glucose (Fingerstick) 257mg/dL (70-99) White Blood Count 11.7x10^3/uL (4.0-11.0) Red Blood Count 4.04x10^6/uL (3.50-5.40) Hemoglobin 11.8g/dL (12.0-15.5) Hematocrit 35.5% (36.0-47.0) Mean Corpuscular Volume 88fL (79-100) Mean Corpuscular Hemoglobin 29pg (25-35) Mean Corpuscular Hemoglobin Concent 33g/dL (31-37) Red Cell Distribution Width 12.7% (11.5-14.5) Platelet Count 229x10^3/uL (140-400) Neutrophils (%) (Auto) 58% (31-73) Lymphocytes (%) (Auto) 28% (24-48) Monocytes (%) (Auto) 9% (0-9) Eosinophils (%) (Auto) 4% (0-3) Basophils (%) (Auto) 1% (0-3) Neutrophils # (Auto) 6.8x10^3uL (1.8-7.7) Lymphocytes # (Auto) 3.3x10^3/uL (1.0-4.8) Monocytes # (Auto) 1.0x10^3/uL (0.0-1.1) Eosinophils # (Auto) 0.4x10^3/uL (0.0-0.7) Basophils # (Auto) 0.1x10^3/uL (0.0-0.2) Sodium Level 143mmol/L (136-145) Potassium Level 3.6mmol/L (3.5-5.1) Chloride Level 105mmol/L (98-107) Carbon Dioxide Level 30mmol/L (21-32) Anion Gap 8 (6-14) Blood Urea Nitrogen 33mg/dL (7-20) Creatinine 1.3mg/dL (0.6-1.0) Estimated GFR (Cockcroft-Gault) 42.7 Glucose Level 275mg/dL (70-99) Calcium Level 8.1mg/dL (8.5-10.1) Laboratory Tests Test 11/16/16 12:30 11/16/16 16:40 11/16/16 17:46 11/16/16 21:02 Influenza Type A Antigen Negative (NEGATIVE) Influenza Type B Antigen Negative (NEGATIVE) O2 Saturation 98% (92-99) Arterial Blood pH 7.36 (7.35-7.45) Arterial Blood pCO2 at Patient Temp 50mmHg (35-46) Arterial Blood pO2 at Patient Temp 117mmHg (75-108) Arterial Blood HCO3 28mmol/L (21-28) Arterial Blood Base Excess 2mmol/L (-3-3) FiO2 40 Glucose (Fingerstick) 301mg/dL (70-99) 257mg/dL (70-99) Test 11/17/16 05:50 White Blood Count 11.7x10^3/uL (4.0-11.0) Red Blood Count 4.04x10^6/uL (3.50-5.40) Hemoglobin 11.8g/dL (12.0-15.5) Hematocrit 35.5% (36.0-47.0) Mean Corpuscular Volume 88fL (79-100) Mean Corpuscular Hemoglobin 29pg (25-35) Mean Corpuscular Hemoglobin Concent 33g/dL (31-37) Red Cell Distribution Width 12.7% (11.5-14.5) Platelet Count 229x10^3/uL (140-400) Neutrophils (%) (Auto) 58% (31-73) Lymphocytes (%) (Auto) 28% (24-48) Monocytes (%) (Auto) 9% (0-9) Eosinophils (%) (Auto) 4% (0-3) Basophils (%) (Auto) 1% (0-3) Neutrophils # (Auto) 6.8x10^3uL (1.8-7.7) Lymphocytes # (Auto) 3.3x10^3/uL (1.0-4.8) Monocytes # (Auto) 1.0x10^3/uL (0.0-1.1) Eosinophils # (Auto) 0.4x10^3/uL (0.0-0.7) Basophils # (Auto) 0.1x10^3/uL (0.0-0.2) Sodium Level 143mmol/L (136-145) Potassium Level 3.6mmol/L (3.5-5.1) Chloride Level 105mmol/L (98-107) Carbon Dioxide Level 30mmol/L (21-32) Anion Gap 8 (6-14) Blood Urea Nitrogen 33mg/dL (7-20) Creatinine 1.3mg/dL (0.6-1.0) Estimated GFR (Cockcroft-Gault) 42.7 Glucose Level 275mg/dL (70-99) Calcium Level 8.1mg/dL (8.5-10.1) Medications Active Scripts Medications Dose Route/Sig Days Date Category Dose Instructions Lyrica (Pregabalin) 150 Mg Capsule 1 Cap PO BID 10/07/16 Reported Cymbalta (Duloxetine Hcl) 60 Mg Capsule.dr 1 Cap PO BID 10/07/16 Reported Metolazone 2.5 Mg Tablet 2 Mg PO QMWF PRN 10/07/16 Reported Lantus (Insulin Glargine,Hum.rec.anlog) 100 Unit/1 Ml Vial 40 Unit SQ DAILY07 10/06/16 Reported Humalog (Insulin Lispro) 100 Unit/1 Ml Insuln.pen 20 Unit SQ TIDACHC 10/06/16 Reported Atorvastatin Calcium 20 Mg Tablet 1 Tab PO DAILY 10/06/16 Reported Nexium Capsule (Esomeprazole Magnesium) 40 Mg Capsule.dr 1 Cap PO DAILY 10/06/16 Reported Isosorbide Mononitrate Er (Isosorbide Mononitrate) 30 Mg Tab.er.24h 1 Tab PO DAILY 10/06/16 Reported Aspirin 81 Mg Tab.chew 1 Tab PO DAILY 10/06/16 Reported Nitrostat (Nitroglycerin) 0.4 Mg Tab.subl 0.4 Mg SL PRN Q5MIN PRN 30 05/02/16 Rx Novolog Mix 70-30 Flexpen Syrn (Insuln Asp Prt/Insulin Aspart) 100 Unit/1 Ml Insuln.pen 50 Unit SQ DAILY16 10/22/15 Reported Pradaxa (Dabigatran Etexilate Mesylate) 150 Mg Capsule 1 Cap PO BID 10/22/15 Reported Levothyroxine Sodium 50 Mcg Tablet 1 Tab PO DAILY 10/22/15 Reported Fenofibrate (Fenofibrate,Micronized) 134 Mg Capsule 1 Cap PO DAILY 10/22/15 Reported Clonidine Hcl 0.1 Mg Tablet 0.1 Mg PO TID 10/22/15 Reported Zanaflex (Tizanidine Hcl) 4 Mg Capsule 4 Mg PO PRN Q8HRS PRN 03/02/15 Reported as needed for muscle cramps no more than every 8hrs Hydrocodone-Apap 10-325 (Hydrocodone Bit/Acetaminophen) 1 Each Tablet 1 Tab PO PRN Q6HRS PRN 03/18/14 Reported as needed for pain every 6 hours Impression . 1. Acute respiratory failure secondary to multifactorial etiologies and includes hypotension/shock and encephalopathy. extubated 11/16 2. Hypotension/shock, most likely hypovolemic, but cannot exclude early septic shock. Lactic acid was 2.2. She has responded well to IV hydration. off Levophed. 3. Underlying chronic obstructive pulmonary disease with mild exacerbation. 4. Acute renal failure, most likely caused by dehydration from recent diarrhea, responding to IV fluids. 5. History of atrial fibrillation. The patient's INR is 1.7. on pradexa at home 6. Abnormal KUB with some dilated loops of bowel. 7. Hypothyroidism. Continue levothyroxine per PCP. 8. Possible early sepsis. No focus of infection in the lungs. We will obtain urine cultures. Plan . 1. Nasal canula 2. PO nutrition 3. transfer to floor 4. Broad spectrum antibiotics per ID. 5. Follow up all cultures. 6. TSH level normal 7. Continue with bronchodilators. 8. Deep venous thrombosis prophylaxis. 9. Stress ulcer prophylaxis. 10. Discussed with RN/ RT and patients daughter. ROBERT SANDOVAL MD Nov 17, 2016 10:33
[2016-11-17] MEDS: HYDROCODONE/APAP 10/325 TABLET. PO PRN ×2 (14:36→21:03)
[2016-11-17] MEDS ORDERED: INSULIN DETEMIR 300 UNITS/3 ML INSULN.PEN. SQ SCH (21:00)
[2016-11-17] MEDS: ATORVASTATIN CALCIUM 20 MG TABLET PO SCH (21:02)
[2016-11-17] MEDS: DABIGATRAN ETEXILATE 150 MG CAPSULE. PO SCH (21:02)
[2016-11-18] MEDS ORDERED: HYDROCODONE/APAP 10/325 TABLET. PO ONE (01:30)
[2016-11-18 03:00] VITALS: BP 108/54
[2016-11-18] MEDS: METRONIDAZOLE 500mg PREMIX 100 ML IV SCH (05:47)
[2016-11-18] MEDS: LEVOTHYROXINE 50 MCG TABLET PO SCH (05:50)
[2016-11-18] MEDS: CLONIDINE HCL 0.1 MG TABLET PO SCH ×3 (05:51→20:24)
[2016-11-18] MEDS: PIPERACILLIN/TAZOBACTAM 2.25 GM in IV NORMAL SALINE 50ML 50 ML IV SCH (06:49)
[2016-11-18 07:15] VITALS: BP 122/59
[2016-11-18] MEDS: PANTOPRAZOLE 40 MG TABLET. PO SCH (09:00)
[2016-11-18] MEDS: DULOXETINE HCL 30 MG CAPSULE.DR. PO SCH ×2 (09:00→20:25)
[2016-11-18] MEDS: ASPIRIN 81 MG TAB.CHEW PO SCH (09:00)
[2016-11-18] MEDS: DABIGATRAN ETEXILATE 150 MG CAPSULE. PO SCH ×2 (09:01→20:24)
[2016-11-18] MEDS: PREGABALIN 75 MG CAPSULE PO SCH ×2 (09:02→20:25)
[2016-11-18] MEDS: ISOSORBIDE MONONITRATE ER 30 MG TAB.ER.24H PO SCH (09:02)
--- NOTE | 2016-11-18 09:06 | PDOC ---
PROGRESS NOTES Subjective Subjective Patient reports some abdominal "soreness". Feels weak. Objective Objective Vital Signs Date Time Temp Pulse Resp B/P Pulse Ox O2 Delivery O2 Flow Rate FiO2 11/18/16 07:15 98.1 106 16 122/59 98 Nasal Cannula 3.5 98.1 Intake and Output 11/18/16 07:00 Intake Total 1640 ml Output Total 860 ml Balance 780 ml Intake Oral 840 ml IV Total 800 ml Output Urine Total 860 ml Physical Exam Abdomen: Normal bowel sounds, Soft, No tenderness Heart: Regular rate Extremities: No edema General: Alert, Oriented X3, No acute distress Lungs: Other (BS decreased throughout but otherwise CTA) Assessment Assessment Problems Medical Problems: (1) Confusion Status: Acute (2) Encephalopathy Status: Acute (3) Hypotension Status: Acute (4) Low blood pressure Status: Acute (5) Shock Status: Acute Plan Plan of Care 1. Sepsis with UTI - much improved. Urine culture with E Coli, pansensitive. Continue abx as per ID. Patient advised increased activity today, hope to discharge tomorrow if improvement continues. 2. COPD with chronic respiratory failure - stable, continue O2. 3. DM2 - blood sugars elevated, increase insulin, continue SS. 4. HTN - BP somewhat labile, continue her usual Clonidine and follow. 5. CKD III - at baseline on last lab. Comment Review of Relevant I have reviewed the following items jim (where applicable) has been applied. Labs Laboratory Tests Test 11/16/16 12:30 11/16/16 16:40 11/16/16 17:46 11/16/16 21:02 Influenza Type A Antigen Negative (NEGATIVE) Influenza Type B Antigen Negative (NEGATIVE) O2 Saturation 98% (92-99) Arterial Blood pH 7.36 (7.35-7.45) Arterial Blood pCO2 at Patient Temp 50mmHg (35-46) Arterial Blood pO2 at Patient Temp 117mmHg (75-108) Arterial Blood HCO3 28mmol/L (21-28) Arterial Blood Base Excess 2mmol/L (-3-3) FiO2 40 Glucose (Fingerstick) 301mg/dL (70-99) 257mg/dL (70-99) Test 11/17/16 05:50 11/17/16 11:16 11/17/16 17:22 11/17/16 20:35 White Blood Count 11.7x10^3/uL (4.0-11.0) Red Blood Count 4.04x10^6/uL (3.50-5.40) Hemoglobin 11.8g/dL (12.0-15.5) Hematocrit 35.5% (36.0-47.0) Mean Corpuscular Volume 88fL (79-100) Mean Corpuscular Hemoglobin 29pg (25-35) Mean Corpuscular Hemoglobin Concent 33g/dL (31-37) Red Cell Distribution Width 12.7% (11.5-14.5) Platelet Count 229x10^3/uL (140-400) Neutrophils (%) (Auto) 58% (31-73) Lymphocytes (%) (Auto) 28% (24-48) Monocytes (%) (Auto) 9% (0-9) Eosinophils (%) (Auto) 4% (0-3) Basophils (%) (Auto) 1% (0-3) Neutrophils # (Auto) 6.8x10^3uL (1.8-7.7) Lymphocytes # (Auto) 3.3x10^3/uL (1.0-4.8) Monocytes # (Auto) 1.0x10^3/uL (0.0-1.1) Eosinophils # (Auto) 0.4x10^3/uL (0.0-0.7) Basophils # (Auto) 0.1x10^3/uL (0.0-0.2) Sodium Level 143mmol/L (136-145) Potassium Level 3.6mmol/L (3.5-5.1) Chloride Level 105mmol/L (98-107) Carbon Dioxide Level 30mmol/L (21-32) Anion Gap 8 (6-14) Blood Urea Nitrogen 33mg/dL (7-20) Creatinine 1.3mg/dL (0.6-1.0) Estimated GFR (Cockcroft-Gault) 42.7 Glucose Level 275mg/dL (70-99) Calcium Level 8.1mg/dL (8.5-10.1) Glucose (Fingerstick) 264mg/dL (70-99) 185mg/dL (70-99) 188mg/dL (70-99) Test 11/18/16 07:37 Glucose (Fingerstick) 195mg/dL (70-99) Laboratory Tests Test 11/17/16 11:16 11/17/16 17:22 11/17/16 20:35 11/18/16 07:37 Glucose (Fingerstick) 264mg/dL (70-99) 185mg/dL (70-99) 188mg/dL (70-99) 195mg/dL (70-99) Microbiology 11/16/16 Blood Culture - Preliminary, Resulted NO GROWTH AFTER 2 DAYS 11/15/16 Urine Culture - Final, Complete 11/15/16 Urine Culture Result 1 (CANDACE) - Final, Complete 11/15/16 Antimicrobic Susceptibility - Final, Complete Medications Current Medications Propofol 50 ml @ As Directed STK-MED ONCE IV ; Start 11/15/16 at 22:12; Stop at 22:13; Status DC Fentanyl Citrate (Fentanyl 600 Mcg/30 ml PIT SHOVELER) 30 ml @ 0 mls/hr CONT PRN IV PROTOCOL Last administered on 11/16/16 00:19; Start 11/15/16 at 22:15; Stop at 09:35; Status DC Fentanyl Citrate (Fentanyl 2ml Vial) 25 mcg PRN Q1HR PRN IV COMM; Start at 22:15 Fentanyl Citrate (Fentanyl 2ml Vial) 50 mcg PRN Q1HR PRN IV COMM Last administered on 11/16/16 23:20; Start 11/15/16 at 22:15 Chlorhexidine Gluconate (Peridex) 15 ml BID MM Last administered on 11/16/16 10:13; Start 11/16/16 at 09:00; Stop 11/16/16 at 20:52; Status DC Morphine Sulfate 2 mg PRN Q1HR PRN IV COMM; Start 11/15/16 at 22:15 Morphine Sulfate 4 mg 4 mg PRN Q1HR PRN IV COMM Last administered on 11/17/16 00:12; Start 11/15/16 at 22:15 Norepinephrine Bitartrate/Sodium Chloride (Levophed Vial/ Iv Sodium Chloride 0.9 % 250ml) 258 ml @ 0 mls/hr 1X ONCE IV Last administered on 11/15/16 22:26; Start 11/15/16 at 22:30; Stop 11/15/16 at 22:31; Status DC Albuterol/ Ipratropium 3 ml 3 ml 1X ONCE NEB Last administered on 11/15/16 23 :25; Start 11/15/16 at 23:00; Stop 11/15/16 at 23:01; Status DC Sodium Chloride 1,000 ml @ 1,000 mls/hr 1X ONCE IV Last administered on 22:34; Start 11/15/16 at 23:00; Stop 11/15/16 at 23:59; Status DC Sodium Chloride 1,000 ml @ 1,000 mls/hr 1X ONCE IV Last administered on 22:34; Start 11/15/16 at 23:00; Stop 11/15/16 at 23:59; Status DC Propofol (Diprivan) 100 ml @ 0 mls/hr CONT PRN IV PER PROTOCOL Last administered on 11/16/16 01:33; Start 11/15/16 at 22:45; Stop 11/17/16 at 09:35 ; Status DC Lorazepam 2 mg 2 mg STK-MED ONCE .ROUTE ; Start 11/15/16 at 22:58; Stop at 22:59; Status DC Ceftriaxone Sodium/Sodium Chloride (Rocephin/Iv Sodium Chloride 0.9% 100ml) 100 ml @ 200 mls/hr Q24H IV Last administered on 11/15/16 23:26; Start 11/15/16 at 23:30; Stop 11/16/16 at 07:46; Status DC Vancomycin HCl 1 each 1 each PRN DAILY PRN MC SEE COMMENTS Last administered on 11/16/16 01:47; Start 11/15/16 at 23:15; Stop 11/16/16 at 07:46; Status DC Vancomycin HCl/ Sodium Chloride (Iv Sodium Chloride 0.9% 500ml Bag) 500 ml @ 250 mls/hr 1X ONCE IV Last administered on 11/16/16 00:25; Start 11/16/16 at 00:00; Stop 11/16/16 at 01:59; Status DC Ondansetron HCl (Zofran) 4 mg PRN Q8HRS PRN IV NAUSEA/VOMITING; Start 11/15/16 at 23:30; Stop 11/16/16 at 23:29; Status DC Morphine Sulfate 2 mg PRN Q2HR PRN IV SEVERE PAIN; Start 11/15/16 at 23:30; Stop 11/16/16 at 10:44; Status DC Lorazepam (Ativan) 1 mg 1X ONCE IV Last administered on 11/15/16 23:45; Start 11/15/16 at 23:45; Stop 11/15/16 at 23:46; Status DC Hydrocortisone Sodium Succinate (Solu-Cortef) 100 mg 1X ONCE IV Last administered on 11/16/16 01:36; Start 11/16/16 at 00:30; Stop 11/16/16 at 00:31 ; Status DC Etomidate (Amidate) 20 mg STK-MED ONCE IV ; Start 11/16/16 at 01:05; Stop at 01:06; Status DC Succinylcholine Chloride 200 mg 200 mg STK-MED ONCE .ROUTE ; Start 11/16/16 at 01:06; Stop 11/16/16 at 01:07; Status DC Potassium Chloride/Sodium Chloride 1,000 ml @ 100 mls/hr Q10H IV Last administered on 11/17/16 06:19; Start 11/16/16 at 01:30; Stop 11/17/16 at 07:38 ; Status DC Vancomycin HCl/ Sodium Chloride (Iv Sodium Chloride 0.9% 500ml Bag) 500 ml @ 250 mls/hr Q24H IV ; Start 11/16/16 at 23:00; Stop 11/16/16 at 23:00; Status DC Vancomycin HCl 1 each 1 each 1X ONCE MC ; Start 11/17/16 at 22:30; Stop at 22:31; Status Cancel Sodium Chloride 1,000 ml @ 999 mls/hr 1X ONCE IV Last administered on 02:25; Start 11/16/16 at 02:30; Stop 11/16/16 at 03:30; Status DC Linezolid 300 ml @ 300 mls/hr Q12HR IV Last administered on 11/16/16 20:26; Start 11/16/16 at 09:00; Stop 11/17/16 at 07:20; Status DC Metronidazole 100 ml @ 100 mls/hr Q8HRS IV Last administered on 11/18/16 05: 47; Start 11/16/16 at 08:00 Piperacillin Sod/ Tazobactam Sod/ Sodium Chloride (Zosyn/Iv Sodium Chloride 0.9 % 50ml) 50 ml @ 100 mls/hr Q6HRS IV Last administered on 11/18/16 06:49; Start 11/16/16 at 09:00 Insulin Aspart (Novolog) 0-9 UNITS TIDWMEALS SQ Last administered on 11/17/16 17:28; Start 11/16/16 at 09:00 Dextrose 12.5 gm 12.5 gm PRN Q15MIN PRN IV SEE COMMENTS; Start 11/16/16 at 08: 15 Levothyroxine Sodium/Sodium Chloride (Synthroid/Iv Sodium Chloride 0.9% 50ml) 5 ml @ 100 mls/hr DAILY IVP Last administered on 11/16/16 10:13; Start 11/16/16 at 09:00; Stop 11/17/16 at 07:38; Status DC Lidocaine/Sodium Bicarbonate (Buffered Lidocaine 1%) 3 ml 1X ONCE IJ Last administered on 11/16/16 14:28; Start 11/16/16 at 13:45; Stop 11/16/16 at 13:46 ; Status DC Heparin Sodium/ Sodium Chloride 60 unit 1X ONCE IV Last administered on 14:29; Start 11/16/16 at 13:45; Stop 11/16/16 at 13:46; Status DC Enoxaparin Sodium (Lovenox 40mg Syringe) 40 mg QHS SQ ; Start 11/16/16 at 21:00 ; Stop 11/16/16 at 21:00; Status DC Famotidine (Pepcid) 20 mg QHS IVP Last administered on 11/16/16 20:56; Start 11/16/16 at 21:00; Stop 11/17/16 at 07:39; Status DC Dabigatran (Pradaxa) 75 mg BID PO Last administered on 11/17/16 09:02; Start 11/16/16 at 21:00; Stop 11/17/16 at 10:11; Status DC Info (Anti-Coagulation Monitoring By Pharmacy) 1 each PRN DAILY PRN MC SEE COMMENTS Last administered on 11/17/16 10:13; Start 11/16/16 at 20:00 Clonidine HCl (Catapres Tts-2) 1 patch WEEKLY TD ; Start 11/23/16 at 09:00; Stop 11/23/16 at 09:00; Status DC Labetalol HCl (Normodyne) 10 mg PRN Q3HRS PRN IVP HYPERTENSION, SEE COMMENTS Last administered on 11/17/16 02:16; Start 11/16/16 at 23:00 Clonidine HCl (Catapres Tts-2) 1 patch ONCE ONCE TD Last administered on 23:00; Start 11/16/16 at 23:00; Stop 11/17/16 at 07:38; Status DC Clonidine HCl (Catapres) 0.1 mg Q8HRS PO Last administered on 11/18/16 05:51; Start 11/17/16 at 07:45 Levothyroxine Sodium (Synthroid) 50 mcg DAILY07 PO Last administered on 05:50; Start 11/17/16 at 07:45 Insulin Detemir (Levemir) 40 units QHS SQ Last administered on 11/17/16 21:10 ; Start 11/17/16 at 21:00 Insulin Aspart (Novolog) 10 units TIDAC SQ Last administered on 11/17/16 17:28 ; Start 11/17/16 at 07:45 Aspirin (Children'S Aspirin) 81 mg DAILYWBKFT PO Last administered on 10:27; Start 11/17/16 at 10:00 Atorvastatin Calcium (Lipitor) 20 mg QHS PO Last administered on 11/17/16 21: 02; Start 11/17/16 at 21:00 Fenofibrate (Lofibra) 134 mg DAILY PO Last administered on 11/17/16 10:29; Start 11/17/16 at 10:00 Acetaminophen/ Hydrocodone Bitart (Lortab 10/325) 1 tab PRN Q6HRS PRN PO PAIN Last administered on 11/17/16 21:03; Start 11/17/16 at 09:30 Isosorbide Mononitrate (Imdur) 30 mg DAILY PO Last administered on 11/17/16 10 :28; Start 11/17/16 at 10:00 Metolazone (Zaroxolyn) 2 mg QMWF PRN PO AD; Start 11/17/16 at 09:30 Nitroglycerin (Nitrostat) 0.4 mg PRN Q5MIN PRN SL CP RATING > 1/10; Start 11/17 at 09:30 Duloxetine HCl (Cymbalta) 60 mg BID PO Last administered on 11/17/16 21:02; Start 11/17/16 at 10:00 Pantoprazole Sodium (Protonix) 40 mg DAILYAC PO Last administered on 11/17/16 10:29; Start 11/17/16 at 10:00 Pregabalin (Lyrica) 150 mg BID PO Last administered on 11/17/16 21:02; Start 11/17/16 at 09:45 Tizanidine HCl (Zanaflex) 4 mg PRN Q8HRS PRN PO MUSCLE SPASMS; Start 11/17/16 at 09:45 Aspirin (Children'S Aspirin) 81 mg DAILY PO ; Start 11/17/16 at 09:45; Status UNV Non-Formulary Medication 1 cap DAILY PO ; Start 11/17/16 at 09:45; Status UNV Dabigatran (Pradaxa) 150 mg BID PO Last administered on 11/17/16 21:02; Start 11/17/16 at 21:00 Acetaminophen/ Hydrocodone Bitart (Lortab 10/325) 1 tab 1X ONCE PO Last administered on 11/18/16 01:24; Start 11/18/16 at 01:30; Stop 11/18/16 at 01:31 ; Status DC Active Scripts Active Nitrostat (Nitroglycerin) 0.4 Mg Tab.subl 0.4 Mg SL PRN Q5MIN PRN 30 Days Reported Lyrica (Pregabalin) 150 Mg Capsule 1 Cap PO BID Cymbalta (Duloxetine Hcl) 60 Mg Capsule.dr 1 Cap PO BID Metolazone 2.5 Mg Tablet 2 Mg PO QMWF PRN Lantus (Insulin Glargine,Hum.rec.anlog) 100 Unit/1 Ml Vial 40 Unit SQ DAILY07 Humalog (Insulin Lispro) 100 Unit/1 Ml Insuln.pen 20 Unit SQ TIDACHC Atorvastatin Calcium 20 Mg Tablet 1 Tab PO DAILY Nexium Capsule (Esomeprazole Magnesium) 40 Mg Capsule.dr 1 Cap PO DAILY Isosorbide Mononitrate Er (Isosorbide Mononitrate) 30 Mg Tab.er.24h 1 Tab PO DAILY Aspirin 81 Mg Tab.chew 1 Tab PO DAILY Novolog Mix 70-30 Flexpen Syrn (Insuln Asp Prt/Insulin Aspart) 100 Unit/1 Ml Insuln.pen 50 Unit SQ DAILY16 Pradaxa (Dabigatran Etexilate Mesylate) 150 Mg Capsule 1 Cap PO BID Levothyroxine Sodium 50 Mcg Tablet 1 Tab PO DAILY Fenofibrate (Fenofibrate,Micronized) 134 Mg Capsule 1 Cap PO DAILY Clonidine Hcl 0.1 Mg Tablet 0.1 Mg PO TID Zanaflex (Tizanidine Hcl) 4 Mg Capsule 4 Mg PO PRN Q8HRS PRN as needed for muscle cramps no more than every 8hrs Hydrocodone-Apap 10-325 (Hydrocodone Bit/Acetaminophen) 1 Each Tablet 1 Tab PO PRN Q6HRS PRN as needed for pain every 6 hours Vitals/I & O Vital Sign - Last 24 Hours 11/17/16 11/17/16 11/17/16 11/17/16 10:28 11:07 13:31 14:36 Temp 98.3 98.3 Pulse 61 58 58 Resp 20 20 B/P 157/68 130/62 130/62 Pulse Ox 95 95 O2 Delivery Room Air Nasal Cannula O2 Flow Rate 3.5 11/17/16 11/17/16 11/17/16 11/17/16 15:00 15:40 19:00 20:00 Temp 98.2 98.1 97.6 98.2 98.1 97.6 Pulse 58 75 58 Resp 16 16 18 18 B/P 97/47 81/40 114/60 Pulse Ox 100 100 97 95 O2 Delivery Room Air Nasal Cannula Room Air O2 Flow Rate 3.5 11/17/16 11/17/16 11/17/16 11/18/16 21:03 22:00 23:00 01:24 Temp 97.8 97.8 Pulse 58 52 Resp 20 18 20 B/P 114/60 114/63 Pulse Ox 96 O2 Delivery Room Air Room Air 11/18/16 11/18/16 11/18/16 03:00 05:51 07:15 Temp 97.8 98.1 97.8 98.1 Pulse 54 54 106 Resp 16 16 B/P 108/54 108/54 122/59 Pulse Ox 98 98 O2 Delivery Nasal Cannula O2 Flow Rate 3.5 Intake and Output 11/17/16 11/17/16 11/18/16 15:00 23:00 07:00 Intake Total 1230 ml 410 ml Output Total 110 ml 750 ml Balance 1120 ml -340 ml JUSTIN TAVAREZ MD Nov 18, 2016 09:06
[2016-11-18] MEDS: INSULIN ASPART 300 UNITS/3 ML INSULN.PEN SQ SCH ×6 (09:08→17:15)
--- NOTE | 2016-11-18 09:35 | PDOC ---
Infectious Disease Note Subjective Subjective Weak but better. Some abd discomfort. + heartburn Small BM 11/17 but denies flatus or BM since. ROS ROS GEN: Denies fevers, chills, sweats HEENT: Denies blurred vision, sore throat CV: Denies chest pain RESP: Denies shortness of air, cough GI: Denies n/v/d NEURO: Denies confusion, dizziness MSK: Denies joint pain/swelling Vital Sign Vital Signs Vital Signs Date Time Temp Pulse Resp B/P Pulse Ox O2 Delivery O2 Flow Rate FiO2 11/18/16 09:02 106 122/59 11/18/16 07:15 98.1 16 98 Nasal Cannula 3.5 98.1 Physical Exam PHYSICAL EXAM GENERAL: NAD, Alert, looks better HEENT: PERRL, OC/OP -dry NECK: Supple, no JVD, no LN LUNGS: Clear, on 02 HEART: S1S2, no gallop, no murmur ABD: Soft, NT, no organomegaly, no rebound, Obese. Decreased but + BS Mcgee EXT: No edema, no cyanosis, [employer]: Alert, oriented x 3, no focal neurologic deficit SKIN: No rash IV: R IJ - clean Labs Lab Laboratory Tests Test 11/17/16 11:16 11/17/16 17:22 11/17/16 20:35 11/18/16 07:37 Glucose (Fingerstick) 264mg/dL (70-99) 185mg/dL (70-99) 188mg/dL (70-99) 195mg/dL (70-99) Micro Escherichia coli Greater than 100,000 colony forming units per mL ANTIMICROBIAL SUSCEPTIBILITY Final Comment S = Susceptible; I = Intermediate; R = Resistant P = Positive; N = Negative MICS are expressed in micrograms per mL Antibiotic RSLT#1 RSLT#2 RSLT#3 RSLT#4 Amoxicillin/Clavulanic Acid S =4 Ampicillin S =8 Cefepime S<=1 Ceftriaxone S<=1 Cefuroxime S =8 Cephalothin S =8 Ciprofloxacin S<=0.25 Ertapenem S<=0.5 Gentamicin S<=1 Imipenem S<=1 Levofloxacin S<=0.12 Nitrofurantoin S<=16 Piperacillin S<=4 Tetracycline S<=1 Tobramycin S<=1 Trimethoprim/Sulfa S<=20 Objective Assessment Sepsis - POA 11/15. Hydrocortisone times one, no pressors Leukocytosis - better Pansensitive Ecoli 11/15 UTI but a lot of squamous on UA. Recent Ecoli UTI 10/16 Res bact/Tetra. H/o Kidney stones and bladder surgery JENNIFER Acute Resp failure - intubated ? Abd pain in RLQ - KUB with air filled loop of bowel Reports of Diarrhea prior to admit. neg C-diff 10/12 DM H/o COPD Morbid obesity Plan Plan of Care Disont Zotanner/Flagyl Change to Rocephin for today and tomorrow Can d/c home on po Keflex 500 mg po QID to start 11/20 for 3 days after 11/19 dose of Rocephin if stable. C-diff not collected and no diarrhea now Available if needed o/w will sign off TERRY AREVALO MD Nov 18, 2016 09:35
--- NOTE | 2016-11-18 09:37 | PDOC ---
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 Subjective No complaints, worried that she has a setback from her stroke recovery every time she gets an infection Objective Vital Signs Date Time Temp Pulse Resp B/P Pulse Ox O2 Delivery O2 Flow Rate FiO2 11/18/16 09:02 106 122/59 11/18/16 07:15 98.1 16 98 Nasal Cannula 3.5 98.1 Intake and Output 11/18/16 07:00 Intake Total 1640 ml Output Total 860 ml Balance 780 ml Intake Oral 840 ml IV Total 800 ml Output Urine Total 860 ml PHYSICAL EXAM Alert. Oriented to place and person. PERRL. EOMI. CN: no focal findings. Muscle tone: normal. Muscle strength: 3-4/5, a little weaker on the right DTR: 1+ Plantar reflex: flexor Gait: not examined in bed. Sensory exam: no abnormal findings. No cerebellar signs elicited. Review of Relevant I have reviewed the following items jim (where applicable) has been applied. Labs Laboratory Tests Test 11/16/16 12:30 11/16/16 16:40 11/16/16 17:46 11/16/16 21:02 Influenza Type A Antigen Negative (NEGATIVE) Influenza Type B Antigen Negative (NEGATIVE) O2 Saturation 98% (92-99) Arterial Blood pH 7.36 (7.35-7.45) Arterial Blood pCO2 at Patient Temp 50mmHg (35-46) Arterial Blood pO2 at Patient Temp 117mmHg (75-108) Arterial Blood HCO3 28mmol/L (21-28) Arterial Blood Base Excess 2mmol/L (-3-3) FiO2 40 Glucose (Fingerstick) 301mg/dL (70-99) 257mg/dL (70-99) Test 11/17/16 05:50 11/17/16 11:16 11/17/16 17:22 11/17/16 20:35 White Blood Count 11.7x10^3/uL (4.0-11.0) Red Blood Count 4.04x10^6/uL (3.50-5.40) Hemoglobin 11.8g/dL (12.0-15.5) Hematocrit 35.5% (36.0-47.0) Mean Corpuscular Volume 88fL (79-100) Mean Corpuscular Hemoglobin 29pg (25-35) Mean Corpuscular Hemoglobin Concent 33g/dL (31-37) Red Cell Distribution Width 12.7% (11.5-14.5) Platelet Count 229x10^3/uL (140-400) Neutrophils (%) (Auto) 58% (31-73) Lymphocytes (%) (Auto) 28% (24-48) Monocytes (%) (Auto) 9% (0-9) Eosinophils (%) (Auto) 4% (0-3) Basophils (%) (Auto) 1% (0-3) Neutrophils # (Auto) 6.8x10^3uL (1.8-7.7) Lymphocytes # (Auto) 3.3x10^3/uL (1.0-4.8) Monocytes # (Auto) 1.0x10^3/uL (0.0-1.1) Eosinophils # (Auto) 0.4x10^3/uL (0.0-0.7) Basophils # (Auto) 0.1x10^3/uL (0.0-0.2) Sodium Level 143mmol/L (136-145) Potassium Level 3.6mmol/L (3.5-5.1) Chloride Level 105mmol/L (98-107) Carbon Dioxide Level 30mmol/L (21-32) Anion Gap 8 (6-14) Blood Urea Nitrogen 33mg/dL (7-20) Creatinine 1.3mg/dL (0.6-1.0) Estimated GFR (Cockcroft-Gault) 42.7 Glucose Level 275mg/dL (70-99) Calcium Level 8.1mg/dL (8.5-10.1) Glucose (Fingerstick) 264mg/dL (70-99) 185mg/dL (70-99) 188mg/dL (70-99) Test 11/18/16 07:37 Glucose (Fingerstick) 195mg/dL (70-99) Laboratory Tests Test 11/17/16 11:16 2/23/17 17:22 11/17/16 20:35 11/18/16 07:37 Glucose (Fingerstick) 264mg/dL (70-99) 185mg/dL (70-99) 188mg/dL (70-99) 195mg/dL (70-99) Microbiology 11/16/16 Blood Culture - Preliminary, Resulted NO GROWTH AFTER 2 DAYS 11/15/16 Urine Culture - Final, Complete 11/15/16 Urine Culture Result 1 (CANDACE) - Final, Complete 11/15/16 Antimicrobic Susceptibility - Final, Complete Medications Current Medications Propofol 50 ml @ As Directed STK-MED ONCE IV ; Start 11/15/16 at 22:12; Stop at 22:13; Status DC Fentanyl Citrate (Fentanyl 600 Mcg/30 ml [employer]) 30 ml @ 0 mls/hr CONT PRN IV PROTOCOL Last administered on 11/16/16 00:19; Start 11/15/16 at 22:15; Stop at 09:35; Status DC Fentanyl Citrate (Fentanyl 2ml Vial) 25 mcg PRN Q1HR PRN IV COMM; Start at 22:15; Stop 11/18/16 at 08:56; Status DC Fentanyl Citrate (Fentanyl 2ml Vial) 50 mcg PRN Q1HR PRN IV COMM Last administered on 11/16/16 23:20; Start 11/15/16 at 22:15; Stop 11/18/16 at 08:56 ; Status DC Chlorhexidine Gluconate (Peridex) 15 ml BID MM Last administered on 11/16/16 10:13; Start 11/16/16 at 09:00; Stop 11/16/16 at 20:52; Status DC Morphine Sulfate 2 mg PRN Q1HR PRN IV COMM; Start 11/15/16 at 22:15; Stop 11/18 at 08:56; Status DC Morphine Sulfate 4 mg 4 mg PRN Q1HR PRN IV COMM Last administered on 11/17/16 00:12; Start 11/15/16 at 22:15; Stop 11/18/16 at 08:56; Status DC Norepinephrine Bitartrate/Sodium Chloride (Levophed Vial/ Iv Sodium Chloride 0.9 % 250ml) 258 ml @ 0 mls/hr 1X ONCE IV Last administered on 11/15/16 22:26; Start 11/15/16 at 22:30; Stop 11/15/16 at 22:31; Status DC Albuterol/ Ipratropium 3 ml 3 ml 1X ONCE NEB Last administered on 11/15/16 23 :25; Start 11/15/16 at 23:00; Stop 11/15/16 at 23:01; Status DC Sodium Chloride 1,000 ml @ 1,000 mls/hr 1X ONCE IV Last administered on 22:34; Start 11/15/16 at 23:00; Stop 11/15/16 at 23:59; Status DC Sodium Chloride 1,000 ml @ 1,000 mls/hr 1X ONCE IV Last administered on 22:34; Start 11/15/16 at 23:00; Stop 11/15/16 at 23:59; Status DC Propofol (Diprivan) 100 ml @ 0 mls/hr CONT PRN IV PER PROTOCOL Last administered on 11/16/16 01:33; Start 11/15/16 at 22:45; Stop 11/17/16 at 09:35 ; Status DC Lorazepam 2 mg 2 mg STK-MED ONCE .ROUTE ; Start 11/15/16 at 22:58; Stop at 22:59; Status DC Ceftriaxone Sodium/Sodium Chloride (Rocephin/Iv Sodium Chloride 0.9% 100ml) 100 ml @ 200 mls/hr Q24H IV Last administered on 11/15/16 23:26; Start 11/15/16 at 23:30; Stop 11/16/16 at 07:46; Status DC Vancomycin HCl 1 each 1 each PRN DAILY PRN MC SEE COMMENTS Last administered on 11/16/16 01:47; Start 11/15/16 at 23:15; Stop 11/16/16 at 07:46; Status DC Vancomycin HCl/ Sodium Chloride (Iv Sodium Chloride 0.9% 500ml Bag) 500 ml @ 250 mls/hr 1X ONCE IV Last administered on 11/16/16 00:25; Start 11/16/16 at 00:00; Stop 11/16/16 at 01:59; Status DC Ondansetron HCl (Zofran) 4 mg PRN Q8HRS PRN IV NAUSEA/VOMITING; Start 11/15/16 at 23:30; Stop 11/16/16 at 23:29; Status DC Morphine Sulfate 2 mg PRN Q2HR PRN IV SEVERE PAIN; Start 11/15/16 at 23:30; Stop 11/16/16 at 10:44; Status DC Lorazepam (Ativan) 1 mg 1X ONCE IV Last administered on 11/15/16 23:45; Start 11/15/16 at 23:45; Stop 11/15/16 at 23:46; Status DC Hydrocortisone Sodium Succinate (Solu-Cortef) 100 mg 1X ONCE IV Last administered on 11/16/16 01:36; Start 11/16/16 at 00:30; Stop 11/16/16 at 00:31 ; Status DC Etomidate (Amidate) 20 mg STK-MED ONCE IV ; Start 11/16/16 at 01:05; Stop at 01:06; Status DC Succinylcholine Chloride 200 mg 200 mg STK-MED ONCE .ROUTE ; Start 11/16/16 at 01:06; Stop 11/16/16 at 01:07; Status DC Potassium Chloride/Sodium Chloride 1,000 ml @ 100 mls/hr Q10H IV Last administered on 11/17/16 06:19; Start 11/16/16 at 01:30; Stop 11/17/16 at 07:38 ; Status DC Vancomycin HCl/ Sodium Chloride (Iv Sodium Chloride 0.9% 500ml Bag) 500 ml @ 250 mls/hr Q24H IV ; Start 11/16/16 at 23:00; Stop 11/16/16 at 23:00; Status DC Vancomycin HCl 1 each 1 each 1X ONCE MC ; Start 11/17/16 at 22:30; Stop at 22:31; Status Cancel Sodium Chloride 1,000 ml @ 999 mls/hr 1X ONCE IV Last administered on 02:25; Start 11/16/16 at 02:30; Stop 11/16/16 at 03:30; Status DC Linezolid 300 ml @ 300 mls/hr Q12HR IV Last administered on 11/16/16 20:26; Start 11/16/16 at 09:00; Stop 11/17/16 at 07:20; Status DC Metronidazole 100 ml @ 100 mls/hr Q8HRS IV Last administered on 11/18/16 05: 47; Start 11/16/16 at 08:00; Stop 11/18/16 at 09:32; Status DC Piperacillin Sod/ Tazobactam Sod/ Sodium Chloride (Zosyn/Iv Sodium Chloride 0.9 % 50ml) 50 ml @ 100 mls/hr Q6HRS IV Last administered on 11/18/16 06:49; Start 11/16/16 at 09:00; Stop 11/18/16 at 09:32; Status DC Insulin Aspart (Novolog) 0-9 UNITS TIDWMEALS SQ Last administered on 11/18/16 09:09; Start 11/16/16 at 09:00 Dextrose 12.5 gm 12.5 gm PRN Q15MIN PRN IV SEE COMMENTS; Start 11/16/16 at 08: 15 Levothyroxine Sodium/Sodium Chloride (Synthroid/Iv Sodium Chloride 0.9% 50ml) 5 ml @ 100 mls/hr DAILY IVP Last administered on 11/16/16 10:13; Start 11/16/16 at 09:00; Stop 11/17/16 at 07:38; Status DC Lidocaine/Sodium Bicarbonate (Buffered Lidocaine 1%) 3 ml 1X ONCE IJ Last administered on 11/16/16 14:28; Start 11/16/16 at 13:45; Stop 11/16/16 at 13:46 ; Status DC Heparin Sodium/ Sodium Chloride 60 unit 1X ONCE IV Last administered on 14:29; Start 11/16/16 at 13:45; Stop 11/16/16 at 13:46; Status DC Enoxaparin Sodium (Lovenox 40mg Syringe) 40 mg QHS SQ ; Start 11/16/16 at 21:00 ; Stop 11/16/16 at 21:00; Status DC Famotidine (Pepcid) 20 mg QHS IVP Last administered on 11/16/16 20:56; Start 11/16/16 at 21:00; Stop 11/17/16 at 07:39; Status DC Dabigatran (Pradaxa) 75 mg BID PO Last administered on 11/17/16 09:02; Start 11/16/16 at 21:00; Stop 11/17/16 at 10:11; Status DC Info (Anti-Coagulation Monitoring By Pharmacy) 1 each PRN DAILY PRN MC SEE COMMENTS Last administered on 11/17/16 10:13; Start 11/16/16 at 20:00 Clonidine HCl (Catapres Tts-2) 1 patch WEEKLY TD ; Start 11/23/16 at 09:00; Stop 11/23/16 at 09:00; Status DC Labetalol HCl (Normodyne) 10 mg PRN Q3HRS PRN IVP HYPERTENSION, SEE COMMENTS Last administered on 11/17/16 02:16; Start 11/16/16 at 23:00 Clonidine HCl (Catapres Tts-2) 1 patch ONCE ONCE TD Last administered on 23:00; Start 11/16/16 at 23:00; Stop 11/17/16 at 07:38; Status DC Clonidine HCl (Catapres) 0.1 mg Q8HRS PO Last administered on 11/18/16 05:51; Start 11/17/16 at 07:45 Levothyroxine Sodium (Synthroid) 50 mcg DAILY07 PO Last administered on 05:50; Start 11/17/16 at 07:45 Insulin Detemir (Levemir) 40 units QHS SQ Last administered on 11/17/16 21:10 ; Start 11/17/16 at 21:00; Stop 11/18/16 at 08:56; Status DC Insulin Aspart (Novolog) 10 units TIDAC SQ Last administered on 11/18/16 09:08 ; Start 11/17/16 at 07:45 Aspirin (Children'S Aspirin) 81 mg DAILYWBKFT PO Last administered on 09:00; Start 11/17/16 at 10:00 Atorvastatin Calcium (Lipitor) 20 mg QHS PO Last administered on 11/17/16 21: 02; Start 11/17/16 at 21:00 Fenofibrate (Lofibra) 134 mg DAILY PO Last administered on 11/17/16 10:29; Start 11/17/16 at 10:00 Acetaminophen/ Hydrocodone Bitart (Lortab 10/325) 1 tab PRN Q6HRS PRN PO PAIN Last administered on 11/17/16 21:03; Start 11/17/16 at 09:30; Stop 11/18/16 at 09:03; Status DC Isosorbide Mononitrate (Imdur) 30 mg DAILY PO Last administered on 11/18/16 09 :02; Start 11/17/16 at 10:00 Metolazone (Zaroxolyn) 2 mg QMWF PRN PO AD; Start 11/17/16 at 09:30 Nitroglycerin (Nitrostat) 0.4 mg PRN Q5MIN PRN SL CP RATING > 1/10; Start 11/17 at 09:30 Duloxetine HCl (Cymbalta) 60 mg BID PO Last administered on 11/18/16 09:00; Start 11/17/16 at 10:00 Pantoprazole Sodium (Protonix) 40 mg DAILYAC PO Last administered on 11/18/16 09:00; Start 11/17/16 at 10:00 Pregabalin (Lyrica) 150 mg BID PO Last administered on 11/18/16 09:02; Start 11/17/16 at 09:45 Tizanidine HCl (Zanaflex) 4 mg PRN Q8HRS PRN PO MUSCLE SPASMS; Start 11/17/16 at 09:45 Aspirin (Children'S Aspirin) 81 mg DAILY PO ; Start 11/17/16 at 09:45; Status UNV Non-Formulary Medication 1 cap DAILY PO ; Start 11/17/16 at 09:45; Status UNV Dabigatran (Pradaxa) 150 mg BID PO Last administered on 11/18/16 09:01; Start 11/17/16 at 21:00 Acetaminophen/ Hydrocodone Bitart (Lortab 10/325) 1 tab 1X ONCE PO Last administered on 11/18/16 01:24; Start 11/18/16 at 01:30; Stop 11/18/16 at 01:31 ; Status DC Insulin Detemir (Levemir) 45 units QHS SQ ; Start 11/18/16 at 21:00 Acetaminophen/ Hydrocodone Bitart 1 tab 1 tab PRN Q4HRS PRN PO PAIN; Start at 09:30 Ceftriaxone Sodium/Sodium Chloride (Rocephin/Iv Sodium Chloride 0.9% 50ml) 50 ml @ 100 mls/hr Q24H IV ; Start 11/18/16 at 10:00 Active Scripts Active Nitrostat (Nitroglycerin) 0.4 Mg Tab.subl 0.4 Mg SL PRN Q5MIN PRN 30 Days Reported Lyrica (Pregabalin) 150 Mg Capsule 1 Cap PO BID Cymbalta (Duloxetine Hcl) 60 Mg Capsule. 1 Cap PO BID Metolazone 2.5 Mg Tablet 2 Mg PO QMWF PRN Lantus (Insulin Glargine,Hum.rec.anlog) 100 Unit/1 Ml Vial 40 Unit SQ DAILY07 Humalog (Insulin Lispro) 100 Unit/1 Ml Insuln.pen 20 Unit SQ TIDACHC Atorvastatin Calcium 20 Mg Tablet 1 Tab PO DAILY Nexium Capsule (Esomeprazole Magnesium) 40 Mg Capsule.dr 1 Cap PO DAILY Isosorbide Mononitrate Er (Isosorbide Mononitrate) 30 Mg Tab.er.24h 1 Tab PO DAILY Aspirin 81 Mg Tab.chew 1 Tab PO DAILY Novolog Mix 70-30 Flexpen Syrn (Insuln Asp Prt/Insulin Aspart) 100 Unit/1 Ml Insuln.pen 50 Unit SQ DAILY16 Pradaxa (Dabigatran Etexilate Mesylate) 150 Mg Capsule 1 Cap PO BID Levothyroxine Sodium 50 Mcg Tablet 1 Tab PO DAILY Fenofibrate (Fenofibrate,Micronized) 134 Mg Capsule 1 Cap PO DAILY Clonidine Hcl 0.1 Mg Tablet 0.1 Mg PO TID Zanaflex (Tizanidine Hcl) 4 Mg Capsule 4 Mg PO PRN Q8HRS PRN as needed for muscle cramps no more than every 8hrs Hydrocodone-Apap 10-325 (Hydrocodone Bit/Acetaminophen) 1 Each Tablet 1 Tab PO PRN Q6HRS PRN as needed for pain every 6 hours Vitals/I & O Vital Sign - Last 24 Hours 11/17/16 11/17/16 11/17/16 11/17/16 10:28 11:07 13:31 14:36 Temp 98.3 98.3 Pulse 61 58 58 Resp 20 20 B/P 157/68 130/62 130/62 Pulse Ox 95 95 O2 Delivery Room Air Nasal Cannula O2 Flow Rate 3.5 11/17/16 11/17/16 11/17/16 11/17/16 15:00 15:40 19:00 20:00 Temp 98.2 98.1 97.6 98.2 98.1 97.6 Pulse 58 75 58 Resp 16 16 18 18 B/P 97/47 81/40 114/60 Pulse Ox 100 100 97 95 O2 Delivery Room Air Nasal Cannula Room Air O2 Flow Rate 3.5 11/17/16 11/17/16 11/17/16 11/18/16 21:03 22:00 23:00 01:24 Temp 97.8 97.8 Pulse 58 52 Resp 20 18 20 B/P 114/60 114/63 Pulse Ox 96 O2 Delivery Room Air Room Air 11/18/16 11/18/16 11/18/16 11/18/16 03:00 05:51 07:15 09:02 Temp 97.8 98.1 97.8 98.1 Pulse 54 54 106 106 Resp 16 16 B/P 108/54 108/54 122/59 122/59 Pulse Ox 98 98 O2 Delivery Nasal Cannula O2 Flow Rate 3.5 Intake and Output 11/17/16 11/17/16 11/18/16 15:00 23:00 07:00 Intake Total 1230 ml 410 ml Output Total 110 ml 750 ml Balance 1120 ml -340 ml WILLIS BERRY MD Nov 18, 2016 09:37
--- NOTE | 2016-11-18 09:59 | PDOC ---
PULMONARY PROGRESS NOTES Subjective extubated 11/16 afternoon doing well Vitals Vital Signs Date Time Temp Pulse Resp B/P Pulse Ox O2 Delivery O2 Flow Rate FiO2 11/18/16 09:02 106 122/59 11/18/16 07:15 98.1 16 98 Nasal Cannula 3.5 98.1 General: Alert, No acute distress Lungs: Clear Cardiovascular: S1 Abdomen: Soft Neuro Exam: Alert Extremities: Other (trace edema) Labs Laboratory Tests Test 11/16/16 12:30 11/16/16 16:40 11/16/16 17:46 11/16/16 21:02 Influenza Type A Antigen Negative (NEGATIVE) Influenza Type B Antigen Negative (NEGATIVE) O2 Saturation 98% (92-99) Arterial Blood pH 7.36 (7.35-7.45) Arterial Blood pCO2 at Patient Temp 50mmHg (35-46) Arterial Blood pO2 at Patient Temp 117mmHg (75-108) Arterial Blood HCO3 28mmol/L (21-28) Arterial Blood Base Excess 2mmol/L (-3-3) FiO2 40 Glucose (Fingerstick) 301mg/dL (70-99) 257mg/dL (70-99) Test 11/17/16 05:50 11/17/16 11:16 11/17/16 17:22 11/17/16 20:35 White Blood Count 11.7x10^3/uL (4.0-11.0) Red Blood Count 4.04x10^6/uL (3.50-5.40) Hemoglobin 11.8g/dL (12.0-15.5) Hematocrit 35.5% (36.0-47.0) Mean Corpuscular Volume 88fL (79-100) Mean Corpuscular Hemoglobin 29pg (25-35) Mean Corpuscular Hemoglobin Concent 33g/dL (31-37) Red Cell Distribution Width 12.7% (11.5-14.5) Platelet Count 229x10^3/uL (140-400) Neutrophils (%) (Auto) 58% (31-73) Lymphocytes (%) (Auto) 28% (24-48) Monocytes (%) (Auto) 9% (0-9) Eosinophils (%) (Auto) 4% (0-3) Basophils (%) (Auto) 1% (0-3) Neutrophils # (Auto) 6.8x10^3uL (1.8-7.7) Lymphocytes # (Auto) 3.3x10^3/uL (1.0-4.8) Monocytes # (Auto) 1.0x10^3/uL (0.0-1.1) Eosinophils # (Auto) 0.4x10^3/uL (0.0-0.7) Basophils # (Auto) 0.1x10^3/uL (0.0-0.2) Sodium Level 143mmol/L (136-145) Potassium Level 3.6mmol/L (3.5-5.1) Chloride Level 105mmol/L (98-107) Carbon Dioxide Level 30mmol/L (21-32) Anion Gap 8 (6-14) Blood Urea Nitrogen 33mg/dL (7-20) Creatinine 1.3mg/dL (0.6-1.0) Estimated GFR (Cockcroft-Gault) 42.7 Glucose Level 275mg/dL (70-99) Calcium Level 8.1mg/dL (8.5-10.1) Glucose (Fingerstick) 264mg/dL (70-99) 185mg/dL (70-99) 188mg/dL (70-99) Test 11/18/16 07:37 Glucose (Fingerstick) 195mg/dL (70-99) Laboratory Tests Test 11/17/16 11:16 11/17/16 17:22 11/17/16 20:35 11/18/16 07:37 Glucose (Fingerstick) 264mg/dL (70-99) 185mg/dL (70-99) 188mg/dL (70-99) 195mg/dL (70-99) Medications Active Scripts Medications Dose Route/Sig Days Date Category Dose Instructions Lyrica (Pregabalin) 150 Mg Capsule 1 Cap PO BID 10/07/16 Reported Cymbalta (Duloxetine Hcl) 60 Mg Capsule. 1 Cap PO BID 10/07/16 Reported Metolazone 2.5 Mg Tablet 2 Mg PO QMWF PRN 10/07/16 Reported Lantus (Insulin Glargine,Hum.rec.anlog) 100 Unit/1 Ml Vial 40 Unit SQ DAILY07 10/06/16 Reported Humalog (Insulin Lispro) 100 Unit/1 Ml Insuln.pen 20 Unit SQ TIDACHC 10/06/16 Reported Atorvastatin Calcium 20 Mg Tablet 1 Tab PO DAILY 10/06/16 Reported Nexium Capsule (Esomeprazole Magnesium) 40 Mg Capsule.dr 1 Cap PO DAILY 10/06/16 Reported Isosorbide Mononitrate Er (Isosorbide Mononitrate) 30 Mg Tab.er.24h 1 Tab PO DAILY 10/06/16 Reported Aspirin 81 Mg Tab.chew 1 Tab PO DAILY 10/06/16 Reported Nitrostat (Nitroglycerin) 0.4 Mg Tab.subl 0.4 Mg SL PRN Q5MIN PRN 30 05/02/16 Rx Novolog Mix 70-30 Flexpen Syrn (Insuln Asp Prt/Insulin Aspart) 100 Unit/1 Ml Insuln.pen 50 Unit SQ DAILY16 10/22/15 Reported Pradaxa (Dabigatran Etexilate Mesylate) 150 Mg Capsule 1 Cap PO BID 10/22/15 Reported Levothyroxine Sodium 50 Mcg Tablet 1 Tab PO DAILY 10/22/15 Reported Fenofibrate (Fenofibrate,Micronized) 134 Mg Capsule 1 Cap PO DAILY 10/22/15 Reported Clonidine Hcl 0.1 Mg Tablet 0.1 Mg PO TID 10/22/15 Reported Zanaflex (Tizanidine Hcl) 4 Mg Capsule 4 Mg PO PRN Q8HRS PRN 03/02/15 Reported as needed for muscle cramps no more than every 8hrs Hydrocodone-Apap 10-325 (Hydrocodone Bit/Acetaminophen) 1 Each Tablet 1 Tab PO PRN Q6HRS PRN 03/18/14 Reported as needed for pain every 6 hours Impression . 1. Acute respiratory failure secondary to multifactorial etiologies and includes hypotension/shock and encephalopathy. extubated 11/16 2. Hypotension/shock, most likely hypovolemic, but cannot exclude early septic shock. Lactic acid was 2.2. She has responded well to IV hydration. 3. Underlying chronic obstructive pulmonary disease with mild exacerbation. 4. Acute renal failure, most likely caused by dehydration from recent diarrhea, responded to IV fluids. 5. History of atrial fibrillation. on pradexa at home 6. Abnormal KUB with some dilated loops of bowel. 7. Hypothyroidism. Continue levothyroxine per PCP. 8. Possible early sepsis. No focus of infection in the lungs./ UTI Plan . 1. Nasal canula 2. PO nutrition 3. Nasal canula 4. antibiotics per ID. 5. E-coli in urine cultures. 6. TSH level normal 7. Continue with bronchodilators. 8. Deep venous thrombosis prophylaxis(on pradaxa) 9. can go home in am ROBERT SANDOVAL MD Nov 18, 2016 09:59
[2016-11-18 10:50] VITALS: BP 132/63
[2016-11-18] MEDS: FENOFIBRATE,MICRONIZED 134 MG CAPSULE PO SCH (12:10)
[2016-11-18] MEDS: CEFTRIAXONE SODIUM 1 GM in IV NORMAL SALINE 50ML 50 ML IV SCH (12:11)
[2016-11-18] MEDS: HYDROCODONE/APAP 10/325 TABLET. PO PRN ×2 (12:57→20:29)
[2016-11-18 15:00] VITALS: BP 119/59
[2016-11-18] MEDS: ANTI-COAG MONITOR BY PHARMACY. MC PRN (16:13)
[2016-11-18 19:59] VITALS: BP 114/62
[2016-11-18] MEDS: ATORVASTATIN CALCIUM 20 MG TABLET PO SCH (20:24)
[2016-11-18] MEDS ORDERED: INSULIN DETEMIR 300 UNITS/3 ML INSULN.PEN. SQ SCH (21:00)
[2016-11-18 23:59] VITALS: BP 119/62
[2016-11-19 03:59] VITALS: BP 131/73
[2016-11-19] MEDS: LEVOTHYROXINE 50 MCG TABLET PO SCH (06:12)
[2016-11-19] MEDS: HYDROCODONE/APAP 10/325 TABLET. PO PRN ×2 (06:12→11:18)
[2016-11-19] MEDS: CLONIDINE HCL 0.1 MG TABLET PO SCH ×2 (06:13→13:42)
[2016-11-19 07:35] VITALS: BP 102/53
[2016-11-19] MEDS: FENOFIBRATE,MICRONIZED 134 MG CAPSULE PO SCH (08:04)
[2016-11-19] MEDS: PANTOPRAZOLE 40 MG TABLET. PO SCH (08:04)
[2016-11-19] MEDS: DABIGATRAN ETEXILATE 150 MG CAPSULE. PO SCH (08:04)
[2016-11-19] MEDS: ASPIRIN 81 MG TAB.CHEW PO SCH (08:04)
[2016-11-19] MEDS: DULOXETINE HCL 30 MG CAPSULE.DR. PO SCH (08:04)
[2016-11-19] MEDS: ISOSORBIDE MONONITRATE ER 30 MG TAB.ER.24H PO SCH (08:08)
[2016-11-19] MEDS: PREGABALIN 75 MG CAPSULE PO SCH (08:08)
[2016-11-19] MEDS: INSULIN ASPART 300 UNITS/3 ML INSULN.PEN SQ SCH ×4 (08:13→12:04)
[2016-11-19] MEDS: CEFTRIAXONE SODIUM 1 GM in IV NORMAL SALINE 50ML 50 ML IV SCH (10:29)
[2016-11-19 11:28] VITALS: BP 117/58
--- NOTE | 2016-11-19 14:11 | PDOC ---
PULMONARY PROGRESS NOTES Subjective extubated 11/16 afternoon doing well Vitals Vital Signs Date Time Temp Pulse Resp B/P Pulse Ox O2 Delivery O2 Flow Rate FiO2 11/19/16 13:42 64 117/58 11/19/16 12:18 18 97 Nasal Cannula 3.5 11/19/16 11:28 98.1 98.1 General: Alert, No acute distress Lungs: Clear Cardiovascular: S1 Abdomen: Soft Neuro Exam: Alert Extremities: Other (trace edema) Labs Laboratory Tests Test 11/17/16 17:22 11/17/16 20:35 11/18/16 07:37 11/18/16 11:49 Glucose (Fingerstick) 185mg/dL (70-99) 188mg/dL (70-99) 195mg/dL (70-99) 211mg/dL (70-99) Test 11/18/16 16:14 11/18/16 20:30 11/19/16 07:38 11/19/16 11:49 Glucose (Fingerstick) 200mg/dL (70-99) 363mg/dL (70-99) 194mg/dL (70-99) 247mg/dL (70-99) Laboratory Tests Test 11/18/16 16:14 11/18/16 20:30 11/19/16 07:38 11/19/16 11:49 Glucose (Fingerstick) 200mg/dL (70-99) 363mg/dL (70-99) 194mg/dL (70-99) 247mg/dL (70-99) Medications Active Scripts Medications Dose Route/Sig Days Date Category Dose Instructions Lyrica (Pregabalin) 150 Mg Capsule 1 Cap PO BID 10/07/16 Reported Cymbalta (Duloxetine Hcl) 60 Mg Capsule. 1 Cap PO BID 10/07/16 Reported Metolazone 2.5 Mg Tablet 2 Mg PO QMWF PRN 10/07/16 Reported Lantus (Insulin Glargine,Hum.rec.anlog) 100 Unit/1 Ml Vial 40 Unit SQ DAILY07 10/06/16 Reported Humalog (Insulin Lispro) 100 Unit/1 Ml Insuln.pen 20 Unit SQ TIDACHC 10/06/16 Reported Atorvastatin Calcium 20 Mg Tablet 1 Tab PO DAILY 10/06/16 Reported Nexium Capsule (Esomeprazole Magnesium) 40 Mg Capsule.dr 1 Cap PO DAILY 10/06/16 Reported Isosorbide Mononitrate Er (Isosorbide Mononitrate) 30 Mg Tab.er.24h 1 Tab PO DAILY 10/06/16 Reported Aspirin 81 Mg Tab.chew 1 Tab PO DAILY 10/06/16 Reported Nitrostat (Nitroglycerin) 0.4 Mg Tab.subl 0.4 Mg SL PRN Q5MIN PRN 30 05/02/16 Rx Novolog Mix 70-30 Flexpen Syrn (Insuln Asp Prt/Insulin Aspart) 100 Unit/1 Ml Insuln.pen 50 Unit SQ DAILY16 10/22/15 Reported Pradaxa (Dabigatran Etexilate Mesylate) 150 Mg Capsule 1 Cap PO BID 10/22/15 Reported Levothyroxine Sodium 50 Mcg Tablet 1 Tab PO DAILY 10/22/15 Reported Fenofibrate (Fenofibrate,Micronized) 134 Mg Capsule 1 Cap PO DAILY 10/22/15 Reported Clonidine Hcl 0.1 Mg Tablet 0.1 Mg PO TID 10/22/15 Reported Zanaflex (Tizanidine Hcl) 4 Mg Capsule 4 Mg PO PRN Q8HRS PRN 03/02/15 Reported as needed for muscle cramps no more than every 8hrs Hydrocodone-Apap 10-325 (Hydrocodone Bit/Acetaminophen) 1 Each Tablet 1 Tab PO PRN Q6HRS PRN 03/18/14 Reported as needed for pain every 6 hours Impression . 1. Acute respiratory failure secondary to multifactorial etiologies and includes hypotension/shock and encephalopathy. extubated 11/16 2. Hypotension/shock, most likely hypovolemic, ? early septic shock. Lactic acid was 2.2. She has responded well to IV hydration. 3. Underlying chronic obstructive pulmonary disease with mild exacerbation. 4. Acute renal failure, most likely caused by dehydration from recent diarrhea, responded to IV fluids. 5. History of atrial fibrillation. on pradexa at home 6. Abnormal KUB with some dilated loops of bowel. 7. Hypothyroidism. Continue levothyroxine per PCP. 8. Possible early sepsis. No focus of infection in the lungs./ UTI Plan . 1. Nasal canula 2. PO nutrition 3. Nasal canula 4. antibiotics per ID. 5. E-coli in urine cultures. 6. TSH level normal 7. Continue with bronchodilators. 8. Deep venous thrombosis prophylaxis(on pradaxa) 9. stable pulmonary status for dc home ROBERT SANDOVAL MD Nov 19, 2016 14:10
[2016-11-19 15:13] VITALS: BP 108/44
--- NOTE | 2016-11-19 15:21 | PDOC ---
PROGRESS NOTES Subjective Subjective Patient without complaint, feels ready to go home. Objective Objective Vital Signs Date Time Temp Pulse Resp B/P Pulse Ox O2 Delivery O2 Flow Rate FiO2 11/19/16 13:42 64 117/58 11/19/16 12:18 18 97 Nasal Cannula 3.5 11/19/16 11:28 98.1 98.1 Intake and Output 11/19/16 07:00 Intake Total 540 ml Output Total 650 ml Balance -110 ml Intake Oral 540 ml Output Urine Total 650 ml Physical Exam Abdomen: Normal bowel sounds, Soft, No tenderness Heart: Regular rate Extremities: No edema General: Alert, Oriented X3, No acute distress Lungs: Other (BS decreased throughout but CTA) Assessment Assessment Problems Medical Problems: (1) Confusion Status: Acute (2) Encephalopathy Status: Acute (3) Hypotension Status: Acute (4) Low blood pressure Status: Acute (5) Shock Status: Acute Plan Plan of Care 1. Sepsis with UTI - much improved, home today on Keflex per ID recommendation. 2. chronic respiratory failure with COPD - doing well since extubation, home on her usual nebs and O2. 3. DM2 - fairly well controlled, home on her usual meds. 4. HTN - controlled, continue present meds. 5. CKD III - stable. Comment Review of Relevant I have reviewed the following items jim (where applicable) has been applied. Labs Laboratory Tests Test 11/17/16 17:22 11/17/16 20:35 11/18/16 07:37 11/18/16 11:49 Glucose (Fingerstick) 185mg/dL (70-99) 188mg/dL (70-99) 195mg/dL (70-99) 211mg/dL (70-99) Test 11/18/16 16:14 11/18/16 20:30 11/19/16 07:38 11/19/16 11:49 Glucose (Fingerstick) 200mg/dL (70-99) 363mg/dL (70-99) 194mg/dL (70-99) 247mg/dL (70-99) Laboratory Tests Test 11/18/16 16:14 11/18/16 20:30 11/19/16 07:38 11/19/16 11:49 Glucose (Fingerstick) 200mg/dL (70-99) 363mg/dL (70-99) 194mg/dL (70-99) 247mg/dL (70-99) Microbiology 11/16/16 Blood Culture - Preliminary, Resulted NO GROWTH AFTER 3 DAYS 11/15/16 Urine Culture - Final, Complete 11/15/16 Urine Culture Result 1 (CANDACE) - Final, Complete 11/15/16 Antimicrobic Susceptibility - Final, Complete Medications Current Medications Propofol 50 ml @ As Directed STK-MED ONCE IV ; Start 11/15/16 at 22:12; Stop at 22:13; Status DC Fentanyl Citrate (Fentanyl 600 Mcg/30 ml OBSERVER GRAVITY PROSPECTING) 30 ml @ 0 mls/hr CONT PRN IV PROTOCOL Last administered on 11/16/16 00:19; Start 11/15/16 at 22:15; Stop at 09:35; Status DC Fentanyl Citrate (Fentanyl 2ml Vial) 25 mcg PRN Q1HR PRN IV COMM; Start at 22:15; Stop 11/18/16 at 08:56; Status DC Fentanyl Citrate (Fentanyl 2ml Vial) 50 mcg PRN Q1HR PRN IV COMM Last administered on 11/16/16 23:20; Start 11/15/16 at 22:15; Stop 11/18/16 at 08:56 ; Status DC Chlorhexidine Gluconate (Peridex) 15 ml BID MM Last administered on 11/16/16 10:13; Start 11/16/16 at 09:00; Stop 11/16/16 at 20:52; Status DC Morphine Sulfate 2 mg PRN Q1HR PRN IV COMM; Start 11/15/16 at 22:15; Stop 11/18 at 08:56; Status DC Morphine Sulfate 4 mg 4 mg PRN Q1HR PRN IV COMM Last administered on 11/17/16 00:12; Start 11/15/16 at 22:15; Stop 11/18/16 at 08:56; Status DC Norepinephrine Bitartrate/Sodium Chloride (Levophed Vial/ Iv Sodium Chloride 0.9 % 250ml) 258 ml @ 0 mls/hr 1X ONCE IV Last administered on 11/15/16 22:26; Start 11/15/16 at 22:30; Stop 11/15/16 at 22:31; Status DC Albuterol/ Ipratropium 3 ml 3 ml 1X ONCE NEB Last administered on 11/15/16 23 :25; Start 11/15/16 at 23:00; Stop 11/15/16 at 23:01; Status DC Sodium Chloride 1,000 ml @ 1,000 mls/hr 1X ONCE IV Last administered on 22:34; Start 11/15/16 at 23:00; Stop 11/15/16 at 23:59; Status DC Sodium Chloride 1,000 ml @ 1,000 mls/hr 1X ONCE IV Last administered on 22:34; Start 11/15/16 at 23:00; Stop 11/15/16 at 23:59; Status DC Propofol (Diprivan) 100 ml @ 0 mls/hr CONT PRN IV PER PROTOCOL Last administered on 11/16/16 01:33; Start 11/15/16 at 22:45; Stop 11/17/16 at 09:35 ; Status DC Lorazepam 2 mg 2 mg STK-MED ONCE .ROUTE ; Start 11/15/16 at 22:58; Stop at 22:59; Status DC Ceftriaxone Sodium/Sodium Chloride (Rocephin/Iv Sodium Chloride 0.9% 100ml) 100 ml @ 200 mls/hr Q24H IV Last administered on 11/15/16 23:26; Start 11/15/16 at 23:30; Stop 11/16/16 at 07:46; Status DC Vancomycin HCl 1 each 1 each PRN DAILY PRN MC SEE COMMENTS Last administered on 11/16/16 01:47; Start 11/15/16 at 23:15; Stop 11/16/16 at 07:46; Status DC Vancomycin HCl/ Sodium Chloride (Iv Sodium Chloride 0.9% 500ml Bag) 500 ml @ 250 mls/hr 1X ONCE IV Last administered on 11/16/16 00:25; Start 11/16/16 at 00:00; Stop 11/16/16 at 01:59; Status DC Ondansetron HCl (Zofran) 4 mg PRN Q8HRS PRN IV NAUSEA/VOMITING; Start 11/15/16 at 23:30; Stop 11/16/16 at 23:29; Status DC Morphine Sulfate 2 mg PRN Q2HR PRN IV SEVERE PAIN; Start 11/15/16 at 23:30; Stop 11/16/16 at 10:44; Status DC Lorazepam (Ativan) 1 mg 1X ONCE IV Last administered on 11/15/16 23:45; Start 11/15/16 at 23:45; Stop 11/15/16 at 23:46; Status DC Hydrocortisone Sodium Succinate (Solu-Cortef) 100 mg 1X ONCE IV Last administered on 11/16/16 01:36; Start 11/16/16 at 00:30; Stop 11/16/16 at 00:31 ; Status DC Etomidate (Amidate) 20 mg STK-MED ONCE IV ; Start 11/16/16 at 01:05; Stop at 01:06; Status DC Succinylcholine Chloride 200 mg 200 mg STK-MED ONCE .ROUTE ; Start 11/16/16 at 01:06; Stop 11/16/16 at 01:07; Status DC Potassium Chloride/Sodium Chloride 1,000 ml @ 100 mls/hr Q10H IV Last administered on 11/17/16 06:19; Start 11/16/16 at 01:30; Stop 11/17/16 at 07:38 ; Status DC Vancomycin HCl/ Sodium Chloride (Iv Sodium Chloride 0.9% 500ml Bag) 500 ml @ 250 mls/hr Q24H IV ; Start 11/16/16 at 23:00; Stop 11/16/16 at 23:00; Status DC Vancomycin HCl 1 each 1 each 1X ONCE MC ; Start 11/17/16 at 22:30; Stop at 22:31; Status Cancel Sodium Chloride 1,000 ml @ 999 mls/hr 1X ONCE IV Last administered on 02:25; Start 11/16/16 at 02:30; Stop 11/16/16 at 03:30; Status DC Linezolid 300 ml @ 300 mls/hr Q12HR IV Last administered on 11/16/16 20:26; Start 11/16/16 at 09:00; Stop 11/17/16 at 07:20; Status DC Metronidazole 100 ml @ 100 mls/hr Q8HRS IV Last administered on 11/18/16 05: 47; Start 11/16/16 at 08:00; Stop 11/18/16 at 09:32; Status DC Piperacillin Sod/ Tazobactam Sod/ Sodium Chloride (Zosyn/Iv Sodium Chloride 0.9 % 50ml) 50 ml @ 100 mls/hr Q6HRS IV Last administered on 11/18/16 06:49; Start 11/16/16 at 09:00; Stop 11/18/16 at 09:32; Status DC Insulin Aspart (Novolog) 0-9 UNITS TIDWMEALS SQ Last administered on 11/19/16 12:04; Start 11/16/16 at 09:00 Dextrose 12.5 gm 12.5 gm PRN Q15MIN PRN IV SEE COMMENTS; Start 11/16/16 at 08: 15 Levothyroxine Sodium/Sodium Chloride (Synthroid/Iv Sodium Chloride 0.9% 50ml) 5 ml @ 100 mls/hr DAILY IVP Last administered on 11/16/16 10:13; Start 11/16/16 at 09:00; Stop 11/17/16 at 07:38; Status DC Lidocaine/Sodium Bicarbonate (Buffered Lidocaine 1%) 3 ml 1X ONCE IJ Last administered on 11/16/16 14:28; Start 11/16/16 at 13:45; Stop 11/16/16 at 13:46 ; Status DC Heparin Sodium/ Sodium Chloride 60 unit 1X ONCE IV Last administered on 14:29; Start 11/16/16 at 13:45; Stop 11/16/16 at 13:46; Status DC Enoxaparin Sodium (Lovenox 40mg Syringe) 40 mg QHS SQ ; Start 11/16/16 at 21:00 ; Stop 11/16/16 at 21:00; Status DC Famotidine (Pepcid) 20 mg QHS IVP Last administered on 11/16/16 20:56; Start 11/16/16 at 21:00; Stop 11/17/16 at 07:39; Status DC Dabigatran (Pradaxa) 75 mg BID PO Last administered on 11/17/16 09:02; Start 11/16/16 at 21:00; Stop 11/17/16 at 10:11; Status DC Info (Anti-Coagulation Monitoring By Pharmacy) 1 each PRN DAILY PRN MC SEE COMMENTS Last administered on 11/18/16 16:13; Start 11/16/16 at 20:00 Clonidine HCl (Catapres Tts-2) 1 patch WEEKLY TD ; Start 11/23/16 at 09:00; Stop 11/23/16 at 09:00; Status DC Labetalol HCl (Normodyne) 10 mg PRN Q3HRS PRN IVP HYPERTENSION, SEE COMMENTS Last administered on 11/17/16 02:16; Start 11/16/16 at 23:00 Clonidine HCl (Catapres Tts-2) 1 patch ONCE ONCE TD Last administered on 23:00; Start 11/16/16 at 23:00; Stop 11/17/16 at 07:38; Status DC Clonidine HCl (Catapres) 0.1 mg Q8HRS PO Last administered on 11/19/16 13:42; Start 11/17/16 at 07:45 Levothyroxine Sodium (Synthroid) 50 mcg DAILY07 PO Last administered on 06:12; Start 11/17/16 at 07:45 Insulin Detemir (Levemir) 40 units QHS SQ Last administered on 11/17/16 21:10 ; Start 11/17/16 at 21:00; Stop 11/18/16 at 08:56; Status DC Insulin Aspart (Novolog) 10 units TIDAC SQ Last administered on 11/19/16 12:04 ; Start 11/17/16 at 07:45 Aspirin (Children'S Aspirin) 81 mg DAILYWBKFT PO Last administered on 08:04; Start 11/17/16 at 10:00 Atorvastatin Calcium (Lipitor) 20 mg QHS PO Last administered on 11/18/16 20: 24; Start 11/17/16 at 21:00 Fenofibrate (Lofibra) 134 mg DAILY PO Last administered on 11/19/16 08:04; Start 11/17/16 at 10:00 Acetaminophen/ Hydrocodone Bitart (Lortab 10/325) 1 tab PRN Q6HRS PRN PO PAIN Last administered on 11/17/16 21:03; Start 11/17/16 at 09:30; Stop 11/18/16 at 09:03; Status DC Isosorbide Mononitrate (Imdur) 30 mg DAILY PO Last administered on 11/19/16 08 :08; Start 11/17/16 at 10:00 Metolazone (Zaroxolyn) 2 mg QMWF PRN PO AD; Start 11/17/16 at 09:30 Nitroglycerin (Nitrostat) 0.4 mg PRN Q5MIN PRN SL CP RATING > 1/10; Start 11/17 at 09:30 Duloxetine HCl (Cymbalta) 60 mg BID PO Last administered on 11/19/16 08:04; Start 11/17/16 at 10:00 Pantoprazole Sodium (Protonix) 40 mg DAILYAC PO Last administered on 11/19/16 08:04; Start 11/17/16 at 10:00 Pregabalin (Lyrica) 150 mg BID PO Last administered on 11/19/16 08:08; Start 11/17/16 at 09:45 Tizanidine HCl (Zanaflex) 4 mg PRN Q8HRS PRN PO MUSCLE SPASMS; Start 11/17/16 at 09:45 Aspirin (Children'S Aspirin) 81 mg DAILY PO ; Start 11/17/16 at 09:45; Status UNV Non-Formulary Medication 1 cap DAILY PO ; Start 11/17/16 at 09:45; Status UNV Dabigatran (Pradaxa) 150 mg BID PO Last administered on 11/19/16 08:04; Start 11/17/16 at 21:00 Acetaminophen/ Hydrocodone Bitart (Lortab 10/325) 1 tab 1X ONCE PO Last administered on 11/18/16 01:24; Start 11/18/16 at 01:30; Stop 11/18/16 at 01:31 ; Status DC Insulin Detemir (Levemir) 45 units QHS SQ Last administered on 11/18/16 20:36 ; Start 11/18/16 at 21:00 Acetaminophen/ Hydrocodone Bitart 1 tab 1 tab PRN Q4HRS PRN PO PAIN Last administered on 11/19/16 11:18; Start 11/18/16 at 09:30 Ceftriaxone Sodium/Sodium Chloride (Rocephin/Iv Sodium Chloride 0.9% 50ml) 50 ml @ 100 mls/hr Q24H IV Last administered on 11/19/16 10:29; Start 11/18/16 at 10:00 Active Scripts Active Nitrostat (Nitroglycerin) 0.4 Mg Tab.subl 0.4 Mg SL PRN Q5MIN PRN 30 Days Reported Lyrica (Pregabalin) 150 Mg Capsule 1 Cap PO BID Cymbalta (Duloxetine Hcl) 60 Mg Capsule. 1 Cap PO BID Metolazone 2.5 Mg Tablet 2 Mg PO QMWF PRN Lantus (Insulin Glargine,Hum.rec.anlog) 100 Unit/1 Ml Vial 40 Unit SQ DAILY07 Humalog (Insulin Lispro) 100 Unit/1 Ml Insuln.pen 20 Unit SQ TIDACHC Atorvastatin Calcium 20 Mg Tablet 1 Tab PO DAILY Nexium Capsule (Esomeprazole Magnesium) 40 Mg Capsule. 1 Cap PO DAILY Isosorbide Mononitrate Er (Isosorbide Mononitrate) 30 Mg Tab.er.24h 1 Tab PO DAILY Aspirin 81 Mg Tab.chew 1 Tab PO DAILY Novolog Mix 70-30 Flexpen Syrn (Insuln Asp Prt/Insulin Aspart) 100 Unit/1 Ml Insuln.pen 50 Unit SQ DAILY16 Pradaxa (Dabigatran Etexilate Mesylate) 150 Mg Capsule 1 Cap PO BID Levothyroxine Sodium 50 Mcg Tablet 1 Tab PO DAILY Fenofibrate (Fenofibrate,Micronized) 134 Mg Capsule 1 Cap PO DAILY Clonidine Hcl 0.1 Mg Tablet 0.1 Mg PO TID Zanaflex (Tizanidine Hcl) 4 Mg Capsule 4 Mg PO PRN Q8HRS PRN as needed for muscle cramps no more than every 8hrs Hydrocodone-Apap 10-325 (Hydrocodone Bit/Acetaminophen) 1 Each Tablet 1 Tab PO PRN Q6HRS PRN as needed for pain every 6 hours Vitals/I & O Vital Sign - Last 24 Hours 11/18/16 11/18/16 11/18/16 11/18/16 15:36 19:59 20:14 20:24 Temp 98.1 98.1 Pulse 123 56 56 Resp 18 B/P 119/59 114/62 114/62 Pulse Ox 97 O2 Delivery Room Air Nasal Cannula 11/18/16 11/18/16 11/19/16 11/19/16 20:29 23:59 03:59 06:12 Temp 98.1 97.5 98.1 97.5 Pulse 55 55 Resp 18 18 18 18 B/P 119/62 131/73 Pulse Ox 97 99 100 100 O2 Delivery Nasal Cannula Room Air Room Air Nasal Cannula O2 Flow Rate 3.5 11/19/16 11/19/16 11/19/16 11/19/16 06:13 07:35 07:55 08:08 Temp 98.1 98.1 Pulse 55 52 60 Resp 18 B/P 131/73 102/53 131/73 Pulse Ox 97 O2 Delivery Room Air Nasal Cannula O2 Flow Rate 3.5 11/19/16 11/19/16 11/19/16 11/19/16 11:18 11:28 12:18 13:42 Temp 98.1 98.1 Pulse 55 64 Resp 18 16 18 B/P 117/58 117/58 Pulse Ox 97 97 97 O2 Delivery Nasal Cannula Room Air Nasal Cannula O2 Flow Rate 3.5 3.5 Intake and Output 11/18/16 11/18/16 11/19/16 15:00 23:00 07:00 Intake Total 420 ml 120 ml Output Total 150 ml 500 ml Balance 420 ml -30 ml -500 ml JUSTIN TAVAREZ MD Nov 19, 2016 15:21
[2016-11-19] MEDS ORDERED: CEPH-264 PO (15:25)
--- NOTE | 2016-11-19 21:59 | DS ---
DATE OF DISCHARGE: 11/19/2016 CHIEF COMPLAINT: Decreased level of consciousness. HISTORY OF PRESENT ILLNESS: The patient is a 56-year-old female with multiple chronic medical problems who was brought to the Emergency Room by her family with the above complaint. They reported the patient had experienced some recent diarrhea, but she had apparently not complained of any other symptoms of illness: They found her to appear confused and not her usual self on the day of admission. Initial evaluation in the Emergency Room showed evidence of sepsis with decreased responsiveness, hypotension, and elevated WBCs. The patient was intubated to protect her airway and admitted for further treatment. HOSPITAL COURSE: The patient was admitted to the Intensive Care Unit. She was seen in consultation by Infectious Disease, Pulmonary Medicine, and Neurology. She was started on broad broad-spectrum antibiotics for treatment of presumed sepsis. She was in acute renal failure at admission with a creatinine of 2.5, which is much above her usual baseline at 1.2 to 1.3, and she was started on IV fluids for hydration for treatment of this. The patient had a good improvement in her condition fairly quickly. Her level of consciousness improved, and she was able to be extubated without difficulty. Urine culture was positive for E. coli, which was verdugo sensitive. Blood cultures remain negative. Infectious Disease adjusted her antibiotics after culture results were available. Her renal function improved with hydration and returned to her baseline. She is now tolerating an ADA diet with a good appetite. The patient has COPD, but this appears stable and she needs the oxygen only intermittently to maintain a good oxygen saturation. The patient already has oxygen at home. The patient was negative for influenza A and B and did not have pneumonia on her admission chest x-ray. The patient is doing much better and will be discharged home today. She will be given a prescription for oral Keflex to take for 3 more days to complete treatment for her urinary tract infection per ID recommendations. FINAL DIAGNOSES: 1. Sepsis. 2. Urinary tract infection. 3. Acute respiratory failure with chronic respiratory failure and chronic obstructive pulmonary disease. 4. Acute renal failure with chronic kidney disease stage 3. 5. Diabetes mellitus type 2. 6. Hypertension. DISCHARGE MEDICATIONS: Aspirin 81 mg daily, atorvastatin 20 mg daily, clonidine 0.1 mg t.i.d., Pradaxa 150 mg b.i.d., Cymbalta 60 mg b.i.d., Nexium 40 mg daily, fenofibrate 134 mg daily, [place] p.r.n., Lantus insulin 40 units at bedtime, Humalog insulin 20 units t.i.d. a.c., Imdur 30 mg daily, levothyroxine 50 mcg daily, metolazone 2.5 mg Monday, Monday, Monday, nitroglycerin 0.4 mg sublingual p.r.n., Lyrica 150 mg b.i.d., Zanaflex 4 mg q. 8 hours p.r.n. muscle spasm, Keflex 500 mg 1 p.o. q.i.d. x 3 days. The patient is to start this tomorrow. DISCHARGE INSTRUCTIONS: Followup is with Dr. Giles within 2 weeks. JUSTIN TAVAREZ MD DR: MARANDA/apolinar JOB#: [id number] / [id number] FERNANDOD
[2016-11-23] MEDS ORDERED: CLONIDINE TTS-2 PATCH TD SCH (09:00)
== END 2016-11-19 16:53 | disposition home or self-care (01) | DRG 871 ==
LOC: ER 21:38 → 1 WEST ICU 23:50 → 5 SOUTH 11-17 19:50
PROVIDERS: ADMIT Family Medicine; ATTEND Family Medicine
PROC: 5A1935Z Respiratory Ventilation, Less than 24 Consecutive Hours (ICD-10-PCS; principal; 2016-11-16)
PROC: 0BH17EZ Insertion of Endotracheal Airway into Trachea, Via Natural or Artificial Opening (ICD-10-PCS; 2016-11-16)
PROC: 05HM33Z Insertion of Infusion Device into Right Internal Jugular Vein, Percutaneous Approach (ICD-10-PCS; 2016-11-16)
PROC: B543ZZA Ultrasonography of Right Jugular Veins, Guidance (ICD-10-PCS; 2016-11-16)
DX: A41.9 Sepsis, unspecified organism (principal); G93.41 Metabolic encephalopathy; J96.20 Acute and chronic respiratory failure, unspecified whether with hypoxia or hypercapnia; R65.21 Severe sepsis with septic shock; G90.50 Complex regional pain syndrome I, unspecified; N17.9 Acute kidney failure, unspecified; J98.11 Atelectasis; I13.0 Hypertensive heart and chronic kidney disease with heart failure and stage 1 through stage 4 chronic kidney disease, or unspecified chronic kidney disease; I69.351 Hemiplegia and hemiparesis following cerebral infarction affecting right dominant side; J44.1 Chronic obstructive pulmonary disease with (acute) exacerbation; N39.0 Urinary tract infection, site not specified; Z68.42 Body mass index [BMI] 45.0-49.9, adult; B96.89 Other specified bacterial agents as the cause of diseases classified elsewhere; E03.9 Hypothyroidism, unspecified; E11.22 Type 2 diabetes mellitus with diabetic chronic kidney disease; E66.01 Morbid (severe) obesity due to excess calories; E78.5 Hyperlipidemia, unspecified; E86.0 Dehydration; E86.1 Hypovolemia; F17.200 Nicotine dependence, unspecified, uncomplicated; F43.10 Post-traumatic stress disorder, unspecified; G47.33 Obstructive sleep apnea (adult) (pediatric); N18.3 Chronic kidney disease, stage 3 (moderate); M10.9 Gout, unspecified; K21.9 Gastro-esophageal reflux disease without esophagitis; I25.10 Atherosclerotic heart disease of native coronary artery without angina pectoris; I48.91 Unspecified atrial fibrillation; F32.9 Major depressive disorder, single episode, unspecified; I50.9 Heart failure, unspecified; I73.9 Peripheral vascular disease, unspecified; J45.909 Unspecified asthma, uncomplicated; Z79.4 Long term (current) use of insulin; Z82.49 Family history of ischemic heart disease and other diseases of the circulatory system; Z83.3 Family history of diabetes mellitus; Z86.711 Personal history of pulmonary embolism; Z86.72 Personal history of thrombophlebitis; I25.2 Old myocardial infarction; Z87.442 Personal history of urinary calculi; Z95.5 Presence of coronary angioplasty implant and graft; Z99.81 Dependence on supplemental oxygen; Z90.49 Acquired absence of other specified parts of digestive tract; Z90.710 Acquired absence of both cervix and uterus
CPT/HCPCS: 31500; 36415; 36556; 36600; 70450; 71010; 74000; 74176; 76937; 80047; 80048; 80076; 81001; 82805; 82947; 83605; 83690; 83880; 84145; 84443; 84484; 85007; 85027; 85610; 85730; 86850; 86900; 86901; 87040; 87086; 87186; 87641; 87804; 93005; 94002; 94003; 94640; A4314; C1892; J0696; J1720; J1815; J2020; J2060; J2270; J2543; J2704; J3010; J3370; J3490; J7030; J7040; J7050; J7620; S0028; 99291-25

== ENCOUNTER 2016-12-09 09:04 | Inpatient (IN) | payer OTHER, MEDICARE ==
[~2016-12-09] VITALS: Ht 152.4 cm; Wt 114.1 kg
[2016-12-09] VITALS (11 sets, daily range): BP systolic 82–167; BP diastolic 51–74
[~2016-12-09 09:04] MED LIST changes: +CEPH-264 PO
[2016-12-09] MEDS ORDERED: methylPREDNISolone SOD SUCC PF 125 MG/2 ML VIAL. IV ONE (09:45)
[2016-12-09] MEDS ORDERED: IPRATRPIUM/ALBUTEROL 0.5/2.5MG 3 ML NEBU. NEB ONE (09:45)
--- NOTE | 2016-12-09 10:07 | RAD ---
Portable chest, 12/09/2016: History: Shortness of breath, abdominal distention There is moderate motion artifact on these images. Gas is present in large and small bowel in a nonspecific pattern. No free air seen in the abdomen. Surgical clips are present in the pelvis and right upper quadrant. The flank regions were not completely included on this study due to the patient's size. The heart is enlarged. The pulmonary vascularity appears congested. There are prominent interstitial markings probably due to interstitial edema. No definite pleural fluid is seen. Surgical clips are projected over the right paraspinous region in the upper chest. IMPRESSION: 1. No acute abdominal abnormality is detected. 2. Vascular congestion with mild interstitial pulmonary edema.
[2016-12-09 10:33] LABS: BASO # 0.1 x10^3/uL (0.0-0.2); BASO % 1 % (0-3); EOS % 6 % (0-3); HEMATOCRIT 37.5 % (36.0-47.0); HEMOGLOBIN 12.3 g/dL (12.0-15.5); LYMPH # 2.2 x10^3/uL (1.0-4.8); LYMPH % 23 % (24-48); MEAN CORPUSCULAR HEMOGLOBIN 29 pg (25-35); MEAN CORPUSCULAR HGB CONC 33 g/dL (31-37); MEAN CORPUSCULAR VOLUME 88 fL (79-100); MONO % 8 % (0-9); NEUT % 63 % (31-73); PLATELET COUNT 293 x10^3/uL (140-400); RED BLOOD COUNT 4.25 x10^6/uL (3.50-5.40); RED CELL DISTRIBUTION WIDTH 13.2 % (11.5-14.5); WHITE BLOOD COUNT 9.4 x10^3/uL (4.0-11.0)
--- NOTE | 2016-12-09 10:40 | PHYS DOC ---
Past Medical History Past Medical History: CHF, COPD, Diabetes-Type II, Heart Disease, Hypertension , AR, Renal Disease, Other Additional Past Medical Histor: BAD VALVE, morbid obesity, REFLEX SYNTHEIC DISTROPHY,SEPSIS Past Surgical History: Angioplasty, Appendectomy, Cholecystectomy, Hysterectomy , Other Additional Past Surgical Histo: thoractomy, lumpectomy, exploratory surgery, hernia, bladder sling, Alcohol Use: None Drug Use: None Adult General Chief Complaint Chief Complaint: SHORTNESS OF BREATH HPI HPI Patient is a 56 year old female who presents with complaint of shortness of breath for the past 24 hours. Patient states that her symptoms have been progressively worsening during that time. Patient states that she is having difficult to breathing and has associated dry cough. Patient denies any associated fevers, nausea, or vomiting. Patient states that she feels chest tightness is nonlocalizing and worsens with breathing. Patient has history of COPD and is on oxygen therapy at home at 3-1/2 L per minute per nasal cannula. Patient took breathing treatments last night with no relief in symptoms. Review of Systems Review of Systems Constitutional: Denies fever or chills [] Eyes: Denies change in visual acuity, redness, or eye pain [] HENT: Denies nasal congestion or sore throat [] Respiratory: Shortness of breath [] Cardiovascular: Chest tightness, edema [] GI: Denies abdominal pain, nausea, vomiting, bloody stools or diarrhea [] : Denies dysuria or hematuria [] Musculoskeletal: Denies back pain or joint pain [] Integument: Denies rash or skin lesions [] Neurologic: Denies headache, focal weakness or sensory changes [] Current Medications Current Medications Current Medications Medications (Trade) Dose Ordered Sig/Jesus Manuel Start Time Stop Time Status Last Admin Dose Admin Albuterol/ Ipratropium (Duoneb) 6 ml 1X ONCE 12/09/16 09:45 12/09/16 09:46 DC 12/09/16 09:56 6 ML Methylprednisolone Sodium Succinate (Solu-Medrol 125mg Vial) 100 mg 1X ONCE 12/09/16 09:45 12/09/16 09:46 DC 12/09/16 10:32 100 MG Allergies Allergies Allergies Coded Allergies Type Severity Reaction Last Updated Verified No Known Drug Allergies 04/19/16 No Physical Exam Physical Exam Constitutional: Alert, afebrile, morbidly obese, appears in moderate respiratory distress. [] HENT: Normocephalic, atraumatic, bilateral external ears normal, oropharynx moist, no oral exudates, nose normal. [] Eyes: PERRLA, EOMI, conjunctiva normal, no discharge. [] Neck: Normal range of motion, no tenderness, supple, no stridor. [] Cardiovascular:Heart rate regular rhythm, no murmur [] Lungs & Thorax: Mild to moderate stricture of air movement bilaterally, expiratory wheezes bilaterally present, bilateral rales present [] Abdomen: Hypoactive bowel sounds, mild to moderate distention present, nontender to palpation, no masses, no pulsatile masses. [] Skin: Warm, dry, no erythema, no rash. [] Back: No tenderness, no CVA tenderness. [] Extremities: No tenderness, no cyanosis, no clubbing, ROM intact, 1+ pitting edema in the bilateral lower extremities. [] Neurologic: Alert and oriented X 3, normal motor function, normal sensory function, no focal deficits noted. [] Current Patient Data Vital Signs Vital Signs Date Time Temp Pulse Resp B/P Pulse Ox O2 Delivery O2 Flow Rate FiO2 12/09/16 10:45 70 17 190/76 95 Nasal Cannula 12/09/16 09:56 2.0 12/09/16 09:16 98.1 98.1 Lab Values Laboratory Tests Test 12/09/16 10:12 12/09/16 10:15 Influenza Type A Antigen Negative (NEGATIVE) Influenza Type B Antigen Negative (NEGATIVE) White Blood Count 9.4x10^3/uL (4.0-11.0) Red Blood Count 4.25x10^6/uL (3.50-5.40) Hemoglobin 12.3g/dL (12.0-15.5) Hematocrit 37.5% (36.0-47.0) Mean Corpuscular Volume 88fL (79-100) Mean Corpuscular Hemoglobin 29pg (25-35) Mean Corpuscular Hemoglobin Concent 33g/dL (31-37) Red Cell Distribution Width 13.2% (11.5-14.5) Platelet Count 293x10^3/uL (140-400) Neutrophils (%) (Auto) 63% (31-73) Lymphocytes (%) (Auto) 23% (24-48) L Monocytes (%) (Auto) 8% (0-9) Eosinophils (%) (Auto) 6% (0-3) H Basophils (%) (Auto) 1% (0-3) Neutrophils # (Auto) 5.9x10^3uL (1.8-7.7) Lymphocytes # (Auto) 2.2x10^3/uL (1.0-4.8) Monocytes # (Auto) 0.8x10^3/uL (0.0-1.1) Eosinophils # (Auto) 0.5x10^3/uL (0.0-0.7) Basophils # (Auto) 0.1x10^3/uL (0.0-0.2) Sodium Level 145mmol/L (136-145) Potassium Level 3.5mmol/L (3.5-5.1) Chloride Level 103mmol/L (98-107) Carbon Dioxide Level 33mmol/L (21-32) H Anion Gap 9 (6-14) Blood Urea Nitrogen 28mg/dL (7-20) H Creatinine 1.3mg/dL (0.6-1.0) H Estimated GFR (Cockcroft-Gault) 42.7 BUN/Creatinine Ratio 22 (6-20) H Glucose Level 320mg/dL (70-99) H Calcium Level 9.2mg/dL (8.5-10.1) Total Bilirubin 0.3mg/dL (0.2-1.0) Aspartate Amino Transferase (AST) 20U/L (15-37) Alanine Aminotransferase (ALT) 26U/L (14-59) Alkaline Phosphatase 140U/L (46-116) H Creatine Kinase 82U/L (26-192) Creatine Kinase MB (Mass) 1.1ng/mL (0.0-3.6) Creatine Kinase MB Relative Index 1.3% (0-4) Troponin I Quantitative 0.035ng/mL (0.000-0.055) IX-Cbq-D-Type Natriuretic Peptide 2324pg/mL (0-124) H Total Protein 7.7g/dL (6.4-8.2) Albumin 3.2g/dL (3.4-5.0) L Albumin/Globulin Ratio 0.7 (1.0-1.7) L Laboratory Tests 12/09/16 10:15 Laboratory Tests 12/09/16 10:15 EKG EKG Interpreted by me: Heart rate 73, sinus rhythm, leftward axis, normal intervals , no acute ST/T-wave abnormalities present [] Radiology/Procedures Radiology/Procedures [facility] [address] [place] [address] IMAGING REPORT Signed PATIENT: EVELIA TAI ACCOUNT: [id number] : 1960 LOCATION: ER AGE: 56 SEX: F EXAM STATUS: REG ER ORD. PHYSICIAN: LINA PACE MD REASON: shortness of breath, abdominal distention PROCEDURE: ACUTE ABDOMEN SERIES Portable chest, 12/09/2016: History: Shortness of breath, abdominal distention There is moderate motion artifact on these images. Gas is present in large and small bowel in a nonspecific pattern. No free air seen in the abdomen. Surgical clips are present in the pelvis and right upper quadrant. The flank regions were not completely included on this study due to the patient's size. The heart is enlarged. The pulmonary vascularity appears congested. There are prominent interstitial markings probably due to interstitial edema. No definite pleural fluid is seen. Surgical clips are projected over the right paraspinous region in the upper chest. IMPRESSION: 1. No acute abdominal abnormality is detected. 2. Vascular congestion with mild interstitial pulmonary edema. DICTATED and SIGNED BY: SILVIA RAI MD DATE: 12/09/16 1001 CC: LINA PACE MD; SERGIO BARAJAS MD ~ [] Course & Med Decision Making Course & Med Decision Making Pertinent Labs and Imaging studies reviewed. (See chart for details) Patient was found have pulmonary edema on her chest x-ray consistent with acute on chronic congestive heart failure. I consult to Dr. Major who recommended that the patient be started on nicardipine drip and started on Lasix therapy for diuresis. I spoke with Dr. Gutierrez who is on-call for Dr. Giles and he accepted care patient in hospital. Critical care time excluding procedures: 35 minutes Dragon Disclaimer Dragon Disclaimer This electronic medical record was generated, in whole or in part, using a voice recognition dictation system. Departure Departure Impression: Primary Impression: Pulmonary edema Additional Impressions: Acute on chronic congestive heart failure COPD exacerbation Malignant hypertension Disposition: 09 ADMITTED INPATIENT Admitting Physician: Chidi Giles Condition: GUARDED Referrals: SERGIO BARAJAS MD (PCP) Problem Qualifiers Primary Impression: Pulmonary edema Chronicity: acute Qualified Code: J81.0 - Acute pulmonary edema Additional Impressions: Acute on chronic congestive heart failure Congestive heart failure type: unspecified congestive heart failure type Qualified Code: I50.9 - Heart failure, unspecified LINA PACE MD Dec 09, 2016 10:40
[2016-12-09 10:44] LABS: OBC FLU VALID
[2016-12-09 10:48] LABS: CALCIUM 9.2 mg/dL (8.5-10.1); CREATININE 1.3 mg/dL (0.6-1.0); GFR 42.7; POTASSIUM 3.5 mmol/L (3.5-5.1)
[2016-12-09 10:53] LABS: ALBUMIN 3.2 g/dL (3.4-5.0); ALBUMIN/GLOBULIN RATIO 0.7 (1.0-1.7); TOTAL BILIRUBIN 0.3 mg/dL (0.2-1.0); TOTAL PROTEIN 7.7 g/dL (6.4-8.2)
[2016-12-09 11:02] LABS: CKMB INDEX 1.3 % (0-4); CKMB MASS 1.1 ng/mL (0.0-3.6)
--- NOTE | 2016-12-09 11:40 | PDOC2 ---
CONSULT Date of Consult Date of Consult DATE: 12/09/16 TIME: 11:36 Reason for Consult Reason for Consult: Chest Pain and HTN Identification/Chief Complaint Chief Complaint SOB History of Present Illness Reason for Visit: Pt presents with severe SOB and chest pain increasing over last 24 hours. She is well known to service with known HTN. She remains in mild distress at this time. Past Medical History Cardiovascular: CAD, CHF, HTN, [place], Other Pulmonary: COPD, Pulmonary embolus, Other CENTRAL NERVOUS SYSTEM: CVA, Periperal neuropathy, Other GI: Other Heme/Onc: No pertinent hx Hepatobiliary: No pertinent hx Psych: Depression, Other Musculoskeletal: low back pain, Osteoarthritis Rheumatologic: Gout Infectious disease: No pertinent hx Renal/: UTI, Urinary Incontinence Endocrine: Diabetes Past Surgical History Past Surgical History: Cholecystectomy, Hernia Repair, Hysterectomy, Other Family History Family History: Coronary Artery Disease, Diabetes Social History ALCOHOL: none Drugs: None Current Problem List Problem List Problems Medical Problems: (1) Acute on chronic congestive heart failure Status: Acute (2) COPD exacerbation Status: Acute (3) Pulmonary edema Status: Acute Current Medications Current Medications Current Medications Albuterol/ Ipratropium (Duoneb) 6 ml 1X ONCE NEB Last administered on 09:56; Start 12/09/16 at 09:45; Stop 12/09/16 at 09:46; Status DC Methylprednisolone Sodium Succinate (Solu-Medrol 125mg Vial) 100 mg 1X ONCE IV Last administered on 12/09/16 10:32; Start 12/09/16 at 09:45; Stop 12/09/16 at 09:46; Status DC Active Scripts Active Keflex (Cephalexin) 500 Mg Capsule 500 Mg PO QID 3 Days Nitrostat (Nitroglycerin) 0.4 Mg Tab.subl 0.4 Mg SL PRN Q5MIN PRN 30 Days Reported Lyrica (Pregabalin) 150 Mg Capsule 1 Cap PO BID Cymbalta (Duloxetine Hcl) 60 Mg Capsule.dr 1 Cap PO BID Metolazone 2.5 Mg Tablet 2 Mg PO QMWF PRN Lantus (Insulin Glargine,Hum.rec.anlog) 100 Unit/1 Ml Vial 40 Unit SQ DAILY07 Humalog (Insulin Lispro) 100 Unit/1 Ml Insuln.pen 20 Unit SQ TIDACHC Atorvastatin Calcium 20 Mg Tablet 1 Tab PO DAILY Nexium Capsule (Esomeprazole Magnesium) 40 Mg Capsule.dr 1 Cap PO DAILY Isosorbide Mononitrate Er (Isosorbide Mononitrate) 30 Mg Tab.er.24h 1 Tab PO DAILY Aspirin 81 Mg Tab.chew 1 Tab PO DAILY Pradaxa (Dabigatran Etexilate Mesylate) 150 Mg Capsule 1 Cap PO BID Levothyroxine Sodium 50 Mcg Tablet 1 Tab PO DAILY Fenofibrate (Fenofibrate,Micronized) 134 Mg Capsule 1 Cap PO DAILY Clonidine Hcl 0.1 Mg Tablet 0.1 Mg PO TID Zanaflex (Tizanidine Hcl) 4 Mg Capsule 4 Mg PO PRN Q8HRS PRN as needed for muscle cramps no more than every 8hrs Hydrocodone-Apap 10-325 (Hydrocodone Bit/Acetaminophen) 1 Each Tablet 1 Tab PO PRN Q6HRS PRN as needed for pain every 6 hours Allergies Allergies: Coded Allergies: No Known Drug Allergies (Unverified , 04/19/16) Physical Exam General: Alert, Cooperative, mild distress Lungs: Other (Very little air movement, use of accessory muscles) Heart: Regular rate, Normal S1, Normal S2 Extremities: No clubbing, No cyanosis, Other (Chronic non-pitting edema in B LE ) Psych/Mental Status: Mental status NL Vitals VITALS Vital Signs Date Time Temp Pulse Resp B/P Pulse Ox O2 Delivery O2 Flow Rate FiO2 12/09/16 09:56 Nasal Cannula 2.0 12/09/16 09:16 98.1 72 28 229/102 82 98.1 Labs Labs Laboratory Tests Test 12/09/16 10:12 12/09/16 10:15 Influenza Type A Antigen Negative (NEGATIVE) Influenza Type B Antigen Negative (NEGATIVE) White Blood Count 9.4x10^3/uL (4.0-11.0) Red Blood Count 4.25x10^6/uL (3.50-5.40) Hemoglobin 12.3g/dL (12.0-15.5) Hematocrit 37.5% (36.0-47.0) Mean Corpuscular Volume 88fL (79-100) Mean Corpuscular Hemoglobin 29pg (25-35) Mean Corpuscular Hemoglobin Concent 33g/dL (31-37) Red Cell Distribution Width 13.2% (11.5-14.5) Platelet Count 293x10^3/uL (140-400) Neutrophils (%) (Auto) 63% (31-73) Lymphocytes (%) (Auto) 23% (24-48) Monocytes (%) (Auto) 8% (0-9) Eosinophils (%) (Auto) 6% (0-3) Basophils (%) (Auto) 1% (0-3) Neutrophils # (Auto) 5.9x10^3uL (1.8-7.7) Lymphocytes # (Auto) 2.2x10^3/uL (1.0-4.8) Monocytes # (Auto) 0.8x10^3/uL (0.0-1.1) Eosinophils # (Auto) 0.5x10^3/uL (0.0-0.7) Basophils # (Auto) 0.1x10^3/uL (0.0-0.2) Sodium Level 145mmol/L (136-145) Potassium Level 3.5mmol/L (3.5-5.1) Chloride Level 103mmol/L (98-107) Carbon Dioxide Level 33mmol/L (21-32) Anion Gap 9 (6-14) Blood Urea Nitrogen 28mg/dL (7-20) Creatinine 1.3mg/dL (0.6-1.0) Estimated GFR (Cockcroft-Gault) 42.7 BUN/Creatinine Ratio 22 (6-20) Glucose Level 320mg/dL (70-99) Calcium Level 9.2mg/dL (8.5-10.1) Total Bilirubin 0.3mg/dL (0.2-1.0) Aspartate Amino Transf (AST/SGOT) 20U/L (15-37) Alanine Aminotransferase (ALT/SGPT) 26U/L (14-59) Alkaline Phosphatase 140U/L (46-116) Creatine Kinase 82U/L (26-192) Creatine Kinase MB (Mass) 1.1ng/mL (0.0-3.6) Creatine Kinase MB Relative Index 1.3% (0-4) Troponin I Quantitative 0.035ng/mL (0.000-0.055) NQ-Jvd-K-Type Natriuretic Peptide 2324pg/mL (0-124) Total Protein 7.7g/dL (6.4-8.2) Albumin 3.2g/dL (3.4-5.0) Albumin/Globulin Ratio 0.7 (1.0-1.7) Laboratory Tests Test 12/09/16 10:12 12/09/16 10:15 Influenza Type A Antigen Negative (NEGATIVE) Influenza Type B Antigen Negative (NEGATIVE) White Blood Count 9.4x10^3/uL (4.0-11.0) Red Blood Count 4.25x10^6/uL (3.50-5.40) Hemoglobin 12.3g/dL (12.0-15.5) Hematocrit 37.5% (36.0-47.0) Mean Corpuscular Volume 88fL (79-100) Mean Corpuscular Hemoglobin 29pg (25-35) Mean Corpuscular Hemoglobin Concent 33g/dL (31-37) Red Cell Distribution Width 13.2% (11.5-14.5) Platelet Count 293x10^3/uL (140-400) Neutrophils (%) (Auto) 63% (31-73) Lymphocytes (%) (Auto) 23% (24-48) Monocytes (%) (Auto) 8% (0-9) Eosinophils (%) (Auto) 6% (0-3) Basophils (%) (Auto) 1% (0-3) Neutrophils # (Auto) 5.9x10^3uL (1.8-7.7) Lymphocytes # (Auto) 2.2x10^3/uL (1.0-4.8) Monocytes # (Auto) 0.8x10^3/uL (0.0-1.1) Eosinophils # (Auto) 0.5x10^3/uL (0.0-0.7) Basophils # (Auto) 0.1x10^3/uL (0.0-0.2) Sodium Level 145mmol/L (136-145) Potassium Level 3.5mmol/L (3.5-5.1) Chloride Level 103mmol/L (98-107) Carbon Dioxide Level 33mmol/L (21-32) Anion Gap 9 (6-14) Blood Urea Nitrogen 28mg/dL (7-20) Creatinine 1.3mg/dL (0.6-1.0) Estimated GFR (Cockcroft-Gault) 42.7 BUN/Creatinine Ratio 22 (6-20) Glucose Level 320mg/dL (70-99) Calcium Level 9.2mg/dL (8.5-10.1) Total Bilirubin 0.3mg/dL (0.2-1.0) Aspartate Amino Transf (AST/SGOT) 20U/L (15-37) Alanine Aminotransferase (ALT/SGPT) 26U/L (14-59) Alkaline Phosphatase 140U/L (46-116) Creatine Kinase 82U/L (26-192) Creatine Kinase MB (Mass) 1.1ng/mL (0.0-3.6) Creatine Kinase MB Relative Index 1.3% (0-4) Troponin I Quantitative 0.035ng/mL (0.000-0.055) ZN-Iou-F-Type Natriuretic Peptide 2324pg/mL (0-124) Total Protein 7.7g/dL (6.4-8.2) Albumin 3.2g/dL (3.4-5.0) Albumin/Globulin Ratio 0.7 (1.0-1.7) Assessment/Plan Assessment/Plan Pt would benefit from echo today if possible, jamil goodman for HTN. Pt to be admitted and will follow and continue to provide care. Discussed with ED physician. Thank you for asking me to participate in the care of this pt. JON WEAVER MD Dec 09, 2016 11:40
[2016-12-09] MEDS ORDERED: ONDANSETRON PF 4 MG/2 ML VIAL. IV PRN (11:45)
[2016-12-09] MEDS ORDERED: ACETAMINOPHEN 325 MG TABLET. PO PRN (11:45)
[2016-12-09] MEDS ORDERED: IV NORMAL SALINE 1000ML BAG 1,000 ML IV SCH (12:00)
[2016-12-09] MEDS: NICARDIPINE HCL 50 MG in IV NORMAL SALINE 250ML 250 ML IV PRN ×2 (12:20→19:30)
--- NOTE | 2016-12-09 13:04 | EKG ---
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 OTHERWISE NORMAL ECG Electronically Signed On 12-10-2016 20:16:38 CDT by Danna Enrique
--- NOTE | 2016-12-09 14:45 | ACF ---
Admission Forms Criteria HEART FAILURE: COMMON COMPLICATIONS Clinical Indications for Inpatient Care (Place 'X' for any and all applicable criteria): Ongoing inpatient care may be indicated for heart failure with ANY ONE of the following (1)(2)(3)(4)(5): [ ]I. Ongoing need for care for primary condition requiring frequent therapy adjustments because of changes in cardiac function (eg, drug dosage changes for drugs that are renally metabolized) [ ]II. New-onset heart failure [ ]III. Heart failure with decreased urine output not responsive to attempts to optimize volume status [ ]IV. Acute cardiac ischemia causing or associated with failure [X]V. Complications of heart failure, including ANY ONE of the following: [ ]a) Pericardial effusion [ ]b) Symptomatic pleural effusion [ ]c) O2 saturation <90% or PO2 < 60 mm Hg (8.0 kPa) on room air or require baseline supplemental O2 [ ]d) Tachypnea [X]e) Dyspnea [ ]f) Syncope [ ]g) Change in mental status [ ]h) Acute renal insufficiency that is severe (reduction of more than 50% in estimated glomerular filtration rate from baseline) or progressive reduction of more than 25% in estimated glomerular filtration rate from baseline, with creatinine continuing to rise) [ ]i) Hemodynamic instability [ ]j) Anasarca [ ]k) Clinically significant metabolic abnormalities due to heart failure (eg, new-onset metabolic acidosis) Extended stay beyond goal length of stay for primary condition may be needed until ALL of the following are present(1)(3): [ ]a) Stable and effective diuretic regimen established (or patient on stable dialysis regimen if in chronic renal failure) [ ]b) Breathing comfortably at rest [ ]c) Saturation of arterial oxygen greater than 90% or at acceptable baseline [ ]d) Pulmonary edema absent or improved [ ]e) Hemodynamic stability [ ]f) Volume status acceptable on oral medication [ ]g) Peripheral or sacral edema absent or improved [ ]h) Renal function stable and manageable at a lower level of care [ ]i) Complications (eg, pleural effusion) resolved or manageable at a lower level of care [ ]j) Patient or caregiver has received written discharge instructions or educational material addressing activity level, diet, discharge medications, follow-up appointment, weight monitoring, and what to do if symptoms worsen The original [facility] [employer] [facility] content created by [employer] has been revised. The portions of the content which have been revised are identified through the use of italic text or in bold, and [facility] has neither reviewed nor approved the modified material.All other unmodified content is copyright [facility]. Please see references footnoted in the original [facility] edition 2016 Admission Criteria Met?: Yes RONY WARD Dec 09, 2016 14:45
[2016-12-09] MEDS: FUROSEMIDE 40 MG/4 ML VIAL IVP SCH ×2 (15:00→21:03)
[2016-12-09] MEDS ORDERED: LIDOCAINE 2% JELLY 6ML IN APPLICATOR. MM ONE (16:15)
[2016-12-09] MEDS: IPRATRPIUM/ALBUTEROL 0.5/2.5MG 3 ML NEBU. NEB SCH ×2 (16:51→19:45)
[2016-12-09] MEDS ORDERED: METOLAZONE 2.5 MG TABLET PO PRN (17:30)
[2016-12-09] MEDS ORDERED: DEXTROSE 50% 25 GM / 50ML DISP.SYRIN. IV PRN (17:45)
--- NOTE | 2016-12-09 17:50 | PDOC ---
Provider Note Provider Note H&P dictated Graciela ESPINOZA MD Dec 09, 2016 17:50
[2016-12-09] MEDS ORDERED: INSULIN ASPART 300 UNITS/3 ML INSULN.PEN SQ SCH (19:15)
[2016-12-09] MEDS: BUDESONIDE 0.5 MG/2 ML NEBU NEB SCH (19:45)
--- NOTE | 2016-12-09 19:58 | HP ---
ADMIT DATE: 12/09/2016 ADMISSION DIAGNOSIS: Shortness of breath. HISTORY OF PRESENT ILLNESS: This is a 56-year-old obese white female with longstanding heart failure and COPD, who came back [place] yesterday. She started feeling more short of breath after getting home. She denies any fast food or salty food on the way home. She denies any swelling in her legs or associated chest pain, but she did develop some chest tightness. The tightness was worse with breathing. She gave herself some breathing treatments at home without improvement and came to the Emergency Room, where she was seen and evaluated. She was anticoagulated with dabigatran. She was found to be quite hypertensive and in heart failure and was admitted into the intensive care unit on a Cardene drip. She was seen in the Emergency Room, still dyspneic, still tachypneic, and hypertensive at the time. PAST MEDICAL HISTORY: Significant for CHF, COPD, type 2 diabetes, heart disease, hypertension, chronic kidney disease, coronary artery disease with a history of an NH, valvular heart disease, morbid obesity, prior sepsis, and reflex sympathetic dystrophy. PAST SURGICAL HISTORY: Include a thoracotomy lumpectomy, exploratory laparotomy, hernia repair, bladder sling, hysterectomy, cholecystectomy, appendectomy, and angioplasty. ALLERGIES: She has no known drug allergies. HOME MEDICATIONS: Include aspirin 81 mg daily, atorvastatin 20 mg daily, clonidine 0.1 mg t.i.d., Pradaxa 150 mg b.i.d., Cymbalta 60 mg b.i.d., Nexium 40 mg daily, fenofibrate micronized 134 mg daily, hydrocodone/APAP 10/325 mg q.i.d. p.r.n. pain, Lantus 40 units subQ each evening, Humalog 20 units t.i.d. with meals, isosorbide mononitrate extended release 30 mg daily, levothyroxine 50 mcg daily, metolazone 2.5 mg q. Monday, Monday, and Monday as needed, Lyrica 150 mg b.i.d. Zanaflex 4 mg q. 8h. p.r.n. SOCIAL HISTORY: Denies tobacco or alcohol use. FAMILY HISTORY: Noncontributory. REVIEW OF SYSTEMS: HEENT: Negative for cold symptoms. PULMONARY: As above. CARDIAC: As above. GASTROINTESTINAL: Denies heartburn, indigestion, nausea, vomiting, or diarrhea. GENITOURINARY: Denies incontinence or dysuria. MUSCULOSKELETAL: Denies acute joint pain. NEUROLOGIC: Denies any falls or focal weakness. SKIN: Denies any bruising. HEMATOLOGY: Denies any bleeding. PHYSICAL EXAMINATION: VITAL SIGNS: She was quite hypertensive initially - as high as 202 systolic and 97 diastolic. She is on 3-1/2 liters nasal cannula of oxygen saturations in the upper 90s. She was tachypneic and tachycardic when I initially saw her. Monitor appeared sinus though. HEENT: No sinus congestion, no scleral icterus. Conjunctivae are clear. GENERAL: She is alert and oriented, in moderate respiratory distress though. There is no tremor. NECK: Supple. No bruit was heard. CARDIOVASCULAR: No murmur was heard. No S3 or S4 was heard. LUNGS: Had expiratory wheezes, but there was no significant cough or Bruxism. ABDOMEN: Obese, soft, nondistended, and nontender. EXTREMITIES: There is 1+ edema of the lower extremities. Negative Roslyn sign. No calf tenderness. No bruises were encountered. No joint pain was noted. LABORATORY DATA: CBC is normal. Chemistries abnormals include CO2 of 33, BUN of 28, creatinine of 1.3, glucose of 320, alkaline phosphatase of 140, BNP elevated at 2,324, troponin borderline at 0.035, and albumin 3.2. Serology is negative for flu. IMAGING STUDIES: Vascular congestion with mild interstitial pulmonary edema noted on chest x-ray. No acute abdominal abnormalities noted on abdominal series. The flank regions were not completely visualized though due to the patient's size. Heart was enlarged. ASSESSMENT AND PLAN: 1. Acute respiratory failure, probably on the basis of congestive heart failure that is [id number] systolic and diastolic, probably related to her uncontrolled hypertension. There may be an element of sodium excess as she recently traveled. 1. Recent travel with shortness of breath and the patient is anticoagulated. We will check a D-dimer and a CT of the chest just to make sure that we are not dealing with a pulmonary embolus, although her exam seems low-risk for that. 2. Type 2 diabetes with hyperglycemia, currently received methylprednisolone 120 mg IV, so we will resume her usual insulin dose, give her the high-intensity sliding scale and switch to inhaled budesonide for ongoing steroid use. 3. Chronic obstructive pulmonary disease with exacerbation. Continue nebulizer treatments. Dr. Major has seen her. She is currently on a Cardene drip. Pressures are improved. Acute coronary syndrome will be ruled out, but it does not appear that she has had any significant myocardial event. An echocardiogram will be ordered. W Jaki ESPINOZA MD DR: IGNACIO/apolinar JOB#: [id number] / [id number]
[2016-12-09] MEDS ORDERED: INSULIN DETEMIR 300 UNITS/3 ML INSULN.PEN. SQ SCH (21:00)
[2016-12-09] MEDS: PREGABALIN 75 MG CAPSULE PO SCH (21:03)
[2016-12-09] MEDS: CLONIDINE HCL 0.1 MG TABLET PO SCH (21:04)
[2016-12-09] MEDS: tiZANidine 4 MG TABLET. PO PRN (21:04)
[2016-12-09] MEDS: HYDROCODONE/APAP 10/325 TABLET. PO PRN (21:04)
[2016-12-09] MEDS: POTASSIUM CHLORIDE 20 MEQ TABLET.ER. PO SCH (21:04)
[2016-12-09] MEDS: DABIGATRAN ETEXILATE 150 MG CAPSULE. PO SCH (21:04)
[2016-12-09] MEDS: NYSTATIN TOPICAL POWDER 15GM BOTTLE. TP SCH (21:10)
[2016-12-10] VITALS (17 sets, daily range): BP systolic 89–154; BP diastolic 41–73
[2016-12-10] MEDS: HYDROCODONE/APAP 10/325 TABLET. PO PRN ×3 (04:33→22:20)
[2016-12-10 05:40] LABS: BASO % 0 % (0-3); EOS % 0 % (0-3); HEMATOCRIT 36.2 % (36.0-47.0); HEMOGLOBIN 11.7 g/dL (12.0-15.5); LYMPH # 0.8 x10^3/uL (1.0-4.8); LYMPH % 11 % (24-48); MEAN CORPUSCULAR HEMOGLOBIN 29 pg (25-35); MEAN CORPUSCULAR HGB CONC 32 g/dL (31-37); MEAN CORPUSCULAR VOLUME 90 fL (79-100); MONO % 2 % (0-9); NEUT % 86 % (31-73); PLATELET COUNT 279 x10^3/uL (140-400); RED BLOOD COUNT 4.02 x10^6/uL (3.50-5.40); RED CELL DISTRIBUTION WIDTH 13.4 % (11.5-14.5); WHITE BLOOD COUNT 7.2 x10^3/uL (4.0-11.0)
[2016-12-10 06:12] LABS: CREATININE 1.4 mg/dL (0.6-1.0); GFR 39.2; POTASSIUM 3.9 mmol/L (3.5-5.1)
[2016-12-10 06:15] LABS: CKMB MASS 1.5 ng/mL (0.0-3.6)
[2016-12-10] MEDS: LEVOTHYROXINE 50 MCG TABLET PO SCH (06:31)
[2016-12-10] MEDS ORDERED: DEXTROSE 50% 25 GM / 50ML DISP.SYRIN. IV PRN (07:15)
[2016-12-10 07:16] LABS: PLT ESTIMATE ADEQUATE (ADEQUATE)
[2016-12-10] MEDS ORDERED: INSULIN ASPART 300 UNITS/3 ML INSULN.PEN SQ SCH ×2 (07:30→08:00)
[2016-12-10] MEDS: INSULIN REGULAR VIAL 150 UNIT in 0.9 % SODIUM CHLORIDE 150ML 150 ML IV PRN ×2 (07:55→15:51)
[2016-12-10] MEDS: BUDESONIDE 0.5 MG/2 ML NEBU NEB SCH ×2 (08:00→20:28)
[2016-12-10] MEDS: IPRATRPIUM/ALBUTEROL 0.5/2.5MG 3 ML NEBU. NEB SCH ×3 (08:30→20:28)
[2016-12-10] MEDS: FENOFIBRATE,MICRONIZED 134 MG CAPSULE PO SCH (08:41)
[2016-12-10] MEDS: ISOSORBIDE MONONITRATE ER 30 MG TAB.ER.24H PO SCH (08:42)
[2016-12-10] MEDS: PANTOPRAZOLE 40 MG TABLET. PO SCH (08:42)
[2016-12-10] MEDS: ASPIRIN 81 MG TAB.CHEW PO SCH (08:42)
[2016-12-10] MEDS: POTASSIUM CHLORIDE 20 MEQ TABLET.ER. PO SCH ×3 (08:42→20:43)
[2016-12-10] MEDS: DABIGATRAN ETEXILATE 150 MG CAPSULE. PO SCH ×2 (08:42→20:43)
[2016-12-10] MEDS: PREGABALIN 75 MG CAPSULE PO SCH ×2 (08:42→20:43)
[2016-12-10] MEDS: NYSTATIN TOPICAL POWDER 15GM BOTTLE. TP SCH ×2 (08:43→21:00)
[2016-12-10] MEDS: CLONIDINE HCL 0.1 MG TABLET PO SCH ×3 (08:43→20:44)
[2016-12-10] MEDS: FUROSEMIDE 40 MG/4 ML VIAL IVP SCH ×3 (08:44→20:42)
[2016-12-10] MEDS ORDERED: ATORVASTATIN CALCIUM 20 MG TABLET PO SCH (09:00)
--- NOTE | 2016-12-10 12:06 | PDOC ---
PROGRESS NOTES Subjective Subjective She is breathing better, she slept some, now up in chair, she requests shah be continued though due to the diuresis and still on tid IV lasix, her blood sugar was high enough to warrant an insulin drip but not yet controlled, she is eating , she still has some chest tightness Objective Objective Vital Signs Date Time Temp Pulse Resp B/P Pulse Ox O2 Delivery O2 Flow Rate FiO2 12/10/16 11:51 96 Nasal Cannula 3.0 12/10/16 08:43 64 154/73 12/10/16 06:00 18 12/10/16 04:00 98.2 98.2 Intake and Output 12/10/16 07:00 Intake Total 1778 ml Output Total 3600 ml Balance -1822 ml Intake Oral 1075 ml IV Total 215 ml Blood Product IV Normal Saline Flush 488 ml Output Urine Total 3600 ml # Bowel Movements 4 Physical Exam Abdomen: Normal bowel sounds, Soft Heart: Regular rate Extremities: No clubbing, No cyanosis General: Alert, Oriented X3, Cooperative HEENT: Atraumatic Lungs: Other (end expiratory wheezes) MUSCULOSKELETAL: No joint tenderness Neck: Supple Neuro: Normal speech Psych/Mental Status: Mental status NL Skin: No breakdown Assessment Assessment Problems Medical Problems: (1) Acute on chronic congestive heart failure Status: Acute (2) COPD exacerbation Status: Acute (3) Malignant hypertension Status: Acute (4) Pulmonary edema (5) type 2 diabetes with uncontrolled hyperglycemia Status: Acute Plan Plan of Care 1) Acute on chronic congestive heart failure, continue on IV lasix Status: Acute (2) COPD exacerbation, continue budesenide and duoneb by nebulizer Status: Acute (3) Malignant hypertension - off cardene drip Status: Acute (4) Pulmonary edema - improved with diuresis (5) type 2 diabetes with uncontrolled hyperglycemia - requiring insulin drip Comment Review of Relevant I have reviewed the following items jim (where applicable) has been applied. Labs Laboratory Tests Test 12/09/16 10:12 12/09/16 10:15 12/09/16 16:00 12/09/16 18:23 Influenza Type A Antigen Negative (NEGATIVE) Influenza Type B Antigen Negative (NEGATIVE) White Blood Count 9.4x10^3/uL (4.0-11.0) Red Blood Count 4.25x10^6/uL (3.50-5.40) Hemoglobin 12.3g/dL (12.0-15.5) Hematocrit 37.5% (36.0-47.0) Mean Corpuscular Volume 88fL (79-100) Mean Corpuscular Hemoglobin 29pg (25-35) Mean Corpuscular Hemoglobin Concent 33g/dL (31-37) Red Cell Distribution Width 13.2% (11.5-14.5) Platelet Count 293x10^3/uL (140-400) Neutrophils (%) (Auto) 63% (31-73) Lymphocytes (%) (Auto) 23% (24-48) Monocytes (%) (Auto) 8% (0-9) Eosinophils (%) (Auto) 6% (0-3) Basophils (%) (Auto) 1% (0-3) Neutrophils # (Auto) 5.9x10^3uL (1.8-7.7) Lymphocytes # (Auto) 2.2x10^3/uL (1.0-4.8) Monocytes # (Auto) 0.8x10^3/uL (0.0-1.1) Eosinophils # (Auto) 0.5x10^3/uL (0.0-0.7) Basophils # (Auto) 0.1x10^3/uL (0.0-0.2) D-Dimer (Shanelle) 0.41ug/mlFEU (0.00-0.50) Sodium Level 145mmol/L (136-145) Potassium Level 3.5mmol/L (3.5-5.1) Chloride Level 103mmol/L (98-107) Carbon Dioxide Level 33mmol/L (21-32) Anion Gap 9 (6-14) Blood Urea Nitrogen 28mg/dL (7-20) Creatinine 1.3mg/dL (0.6-1.0) Estimated GFR (Cockcroft-Gault) 42.7 BUN/Creatinine Ratio 22 (6-20) Glucose Level 320mg/dL (70-99) Calcium Level 9.2mg/dL (8.5-10.1) Total Bilirubin 0.3mg/dL (0.2-1.0) Aspartate Amino Transf (AST/SGOT) 20U/L (15-37) Alanine Aminotransferase (ALT/SGPT) 26U/L (14-59) Alkaline Phosphatase 140U/L (46-116) Creatine Kinase 82U/L (26-192) Creatine Kinase MB (Mass) 1.1ng/mL (0.0-3.6) Creatine Kinase MB Relative Index 1.3% (0-4) Troponin I Quantitative 0.035ng/mL (0.000-0.055) GF-Hdc-T-Type Natriuretic Peptide 2324pg/mL (0-124) Total Protein 7.7g/dL (6.4-8.2) Albumin 3.2g/dL (3.4-5.0) Albumin/Globulin Ratio 0.7 (1.0-1.7) Nasal Screen MRSA (PCR) Negative (Negative) Glucose (Fingerstick) 410mg/dL (70-99) Test 12/09/16 21:09 12/10/16 05:15 12/10/16 08:59 12/10/16 10:03 Glucose (Fingerstick) 473mg/dL (70-99) 480mg/dL (70-99) 519mg/dL (70-99) White Blood Count 7.2x10^3/uL (4.0-11.0) Red Blood Count 4.02x10^6/uL (3.50-5.40) Hemoglobin 11.7g/dL (12.0-15.5) Hematocrit 36.2% (36.0-47.0) Mean Corpuscular Volume 90fL (79-100) Mean Corpuscular Hemoglobin 29pg (25-35) Mean Corpuscular Hemoglobin Concent 32g/dL (31-37) Red Cell Distribution Width 13.4% (11.5-14.5) Platelet Count 279x10^3/uL (140-400) Neutrophils (%) (Auto) 86% (31-73) Lymphocytes (%) (Auto) 11% (24-48) Monocytes (%) (Auto) 2% (0-9) Eosinophils (%) (Auto) 0% (0-3) Basophils (%) (Auto) 0% (0-3) Neutrophils # (Auto) 6.2x10^3uL (1.8-7.7) Lymphocytes # (Auto) 0.8x10^3/uL (1.0-4.8) Monocytes # (Auto) 0.2x10^3/uL (0.0-1.1) Eosinophils # (Auto) 0.0x10^3/uL (0.0-0.7) Basophils # (Auto) 0.0x10^3/uL (0.0-0.2) Segmented Neutrophils % 82% (35-66) Band Neutrophils % 4% (0-9) Lymphocytes % 14% (24-48) Platelet Estimate Adequate (ADEQUATE) Sodium Level 141mmol/L (136-145) Potassium Level 3.9mmol/L (3.5-5.1) Chloride Level 96mmol/L (98-107) Carbon Dioxide Level 34mmol/L (21-32) Anion Gap 11 (6-14) Blood Urea Nitrogen 31mg/dL (7-20) Creatinine 1.4mg/dL (0.6-1.0) Estimated GFR (Cockcroft-Gault) 39.2 Glucose Level 547mg/dL (70-99) Calcium Level 9.0mg/dL (8.5-10.1) Creatine Kinase 76U/L (26-192) Creatine Kinase MB (Mass) 1.5ng/mL (0.0-3.6) Creatine Kinase MB Relative Index 2.0% (0-4) Test 12/10/16 11:05 Glucose (Fingerstick) 509mg/dL (70-99) Laboratory Tests Test 12/09/16 16:00 12/09/16 18:23 12/09/16 21:09 12/10/16 05:15 Nasal Screen MRSA (PCR) Negative (Negative) Glucose (Fingerstick) 410mg/dL (70-99) 473mg/dL (70-99) White Blood Count 7.2x10^3/uL (4.0-11.0) Red Blood Count 4.02x10^6/uL (3.50-5.40) Hemoglobin 11.7g/dL (12.0-15.5) Hematocrit 36.2% (36.0-47.0) Mean Corpuscular Volume 90fL (79-100) Mean Corpuscular Hemoglobin 29pg (25-35) Mean Corpuscular Hemoglobin Concent 32g/dL (31-37) Red Cell Distribution Width 13.4% (11.5-14.5) Platelet Count 279x10^3/uL (140-400) Neutrophils (%) (Auto) 86% (31-73) Lymphocytes (%) (Auto) 11% (24-48) Monocytes (%) (Auto) 2% (0-9) Eosinophils (%) (Auto) 0% (0-3) Basophils (%) (Auto) 0% (0-3) Neutrophils # (Auto) 6.2x10^3uL (1.8-7.7) Lymphocytes # (Auto) 0.8x10^3/uL (1.0-4.8) Monocytes # (Auto) 0.2x10^3/uL (0.0-1.1) Eosinophils # (Auto) 0.0x10^3/uL (0.0-0.7) Basophils # (Auto) 0.0x10^3/uL (0.0-0.2) Segmented Neutrophils % 82% (35-66) Band Neutrophils % 4% (0-9) Lymphocytes % 14% (24-48) Platelet Estimate Adequate (ADEQUATE) Sodium Level 141mmol/L (136-145) Potassium Level 3.9mmol/L (3.5-5.1) Chloride Level 96mmol/L (98-107) Carbon Dioxide Level 34mmol/L (21-32) Anion Gap 11 (6-14) Blood Urea Nitrogen 31mg/dL (7-20) Creatinine 1.4mg/dL (0.6-1.0) Estimated GFR (Cockcroft-Gault) 39.2 Glucose Level 547mg/dL (70-99) Calcium Level 9.0mg/dL (8.5-10.1) Creatine Kinase 76U/L (26-192) Creatine Kinase MB (Mass) 1.5ng/mL (0.0-3.6) Creatine Kinase MB Relative Index 2.0% (0-4) Test 12/10/16 08:59 12/10/16 10:03 12/10/16 11:05 Glucose (Fingerstick) 480mg/dL (70-99) 519mg/dL (70-99) 509mg/dL (70-99) Medications Current Medications Albuterol/ Ipratropium (Duoneb) 6 ml 1X ONCE NEB Last administered on t 09:56; Start 12/09/16 at 09:45; Stop 12/09/16 at 09:46; Status DC Methylprednisolone Sodium Succinate (Solu-Medrol 125mg Vial) 100 mg 1X ONCE IV Last administered on 12/09/16 10:32; Start 12/09/16 at 09:45; Stop 12/09/16 at 09:46; Status DC Ondansetron HCl 4 mg 4 mg PRN Q8HRS PRN IV NAUSEA/VOMITING; Start 12/09/16 at 11:45; Stop 12/10/16 at 11:44; Status DC Sodium Chloride (Iv Sodium Chloride 0.9% 1000ml Bag) 1,000 ml @ 0 mls/hr Q0M IV Last administered on 12/09/16 13:09; Start 12/09/16 at 12:00; Stop at 11:59 Acetaminophen (Tylenol) 650 mg PRN Q4HRS PRN PO FEVER; Start 12/09/16 at 11:45 ; Stop 12/10/16 at 11:44; Status DC Albuterol/ Ipratropium 3 ml 3 ml RTQID NEB Last administered on 12/10/16 11:49 ; Start 12/09/16 at 12:00; Stop 12/10/16 at 11:59 Nicardipine HCl/ Sodium Chloride (Cardene/Iv Sodium Chloride 0.9% 250ml) 270 ml @ 0 mls/hr CONT PRN IV SEE I/O RECORD Last administered on 12/09/16 19:30; Start 12/09/16 at 11:45 Furosemide (Lasix) 60 mg TID IVP Last administered on 12/10/16 08:44; Start at 14:00; Stop 12/10/16 at 10:58; Status DC Lidocaine HCl (Glydo (Lidocaine) Jelly) 1 eric 1X ONCE MM Last administered on 12/09/16 16:15; Start 12/09/16 at 16:15; Stop 12/09/16 at 16:16; Status DC Nystatin (Nystop) 1 eric BID TP Last administered on 12/10/16 08:43; Start at 17:00 Aspirin (Children'S Aspirin) 81 mg DAILY PO Last administered on 12/10/16 08: 42; Start 12/10/16 at 09:00 Atorvastatin Calcium (Lipitor) 20 mg DAILY PO ; Start 12/10/16 at 09:00; Stop at 10:50; Status DC Clonidine HCl (Catapres) 0.1 mg TID PO Last administered on 12/10/16 08:43; Start 12/09/16 at 21:00 Dabigatran (Pradaxa) 150 mg BID PO Last administered on 12/10/16 08:42; Start 12/09/16 at 21:00 Fenofibrate (Lofibra) 134 mg DAILY PO Last administered on 12/10/16 08:41; Start 12/10/16 at 09:00 Acetaminophen/ Hydrocodone Bitart (Lortab 10/325) 1 tab PRN Q6HRS PRN PO PAIN Last administered on 12/10/16 10:41; Start 12/09/16 at 17:30 Isosorbide Mononitrate (Imdur) 30 mg DAILY PO Last administered on 12/10/16 08 :42; Start 12/10/16 at 09:00 Levothyroxine Sodium (Synthroid) 50 mcg DAILY07 PO Last administered on 06:31; Start 12/10/16 at 07:00 Metolazone (Zaroxolyn) 2 mg QMWF PRN PO AD; Start 12/09/16 at 17:30 Duloxetine HCl (Cymbalta) 60 mg BID PO ; Start 12/10/16 at 21:00 Pantoprazole Sodium (Protonix) 40 mg DAILYAC PO Last administered on 12/10/16 08:42; Start 12/10/16 at 07:30 Insulin Detemir (Levemir) 40 units [id number] SQ Last administered on 21:12; Start 12/09/16 at 21:00; Stop 12/10/16 at 07:11; Status DC Insulin Aspart (Novolog) 20 units TIDBFRMEAL SQ ; Start 12/10/16 at 07:30; Stop 12/10/16 at 07:30; Status DC Pregabalin (Lyrica) 150 mg BID PO Last administered on 12/10/16 08:42; Start 12/09/16 at 21:00 Tizanidine HCl (Zanaflex) 4 mg PRN Q8HRS PRN PO MUSCLE SPASMS Last administered on 12/09/16 21:04; Start 12/09/16 at 17:45 Budesonide (Pulmicort) 0.5 mg RTBID NEB Last administered on 12/09/16 19:45; Start 12/09/16 at 20:00 Insulin Aspart (Novolog) 0-9 UNITS TIDWMEALS SQ ; Start 12/10/16 at 08:00; Stop 12/10/16 at 08:00; Status DC Dextrose 12.5 gm PRN Q15MIN PRN IV SEE COMMENTS; Start 12/09/16 at 17:45; Stop 12/10/16 at 07:43; Status DC Insulin Aspart (Novolog) 20 units TIDBFRMEAL SQ Last administered on 12/09/16 19:27; Start 12/09/16 at 19:15; Stop 12/10/16 at 07:11; Status DC Potassium Chloride 20 meq 20 meq TID PO Last administered on 12/10/16 08:42; Start 12/09/16 at 21:00 Insulin Human Regular/Sodium Chloride (Novolin R Vial/ Iv Normal Saline 150ml) 151.5 ml @ 0 mls/hr CONT PRN IV SEE I/O RECORD Last administered on 12/10/16 07:55; Start 12/10/16 at 07:15 Dextrose 12.5 gm PRN Q15MIN PRN IV LOW BLOOD SUGAR; Start 12/10/16 at 07:15 Atorvastatin Calcium (Lipitor) 20 mg QHS PO ; Start 12/10/16 at 21:00 Furosemide (Lasix) 60 mg TID IVP ; Start 12/10/16 at 14:00; Stop 12/10/16 at 23: 55 Furosemide (Lasix) 60 mg DAILY PO ; Start 12/11/16 at 09:00 Amlodipine Besylate (Norvasc) 5 mg BID PO ; Start 12/10/16 at 21:00 Active Scripts Active Keflex (Cephalexin) 500 Mg Capsule 500 Mg PO QID 3 Days Nitrostat (Nitroglycerin) 0.4 Mg Tab.subl 0.4 Mg SL PRN Q5MIN PRN 30 Days Reported Lyrica (Pregabalin) 150 Mg Capsule 1 Cap PO BID Cymbalta (Duloxetine Hcl) 60 Mg Capsule. 1 Cap PO BID Metolazone 2.5 Mg Tablet 2 Mg PO QMWF PRN Lantus (Insulin Glargine,Hum.rec.anlog) 100 Unit/1 Ml Vial 40 Unit SQ DAILY07 Humalog (Insulin Lispro) 100 Unit/1 Ml Insuln.pen 20 Unit SQ TIDACHC Atorvastatin Calcium 20 Mg Tablet 1 Tab PO DAILY Nexium Capsule (Esomeprazole Magnesium) 40 Mg Capsule.dr 1 Cap PO DAILY Isosorbide Mononitrate Er (Isosorbide Mononitrate) 30 Mg Tab.er.24h 1 Tab PO DAILY Aspirin 81 Mg Tab.chew 1 Tab PO DAILY Pradaxa (Dabigatran Etexilate Mesylate) 150 Mg Capsule 1 Cap PO BID Levothyroxine Sodium 50 Mcg Tablet 1 Tab PO DAILY Fenofibrate (Fenofibrate,Micronized) 134 Mg Capsule 1 Cap PO DAILY Clonidine Hcl 0.1 Mg Tablet 0.1 Mg PO TID Zanaflex (Tizanidine Hcl) 4 Mg Capsule 4 Mg PO PRN Q8HRS PRN as needed for muscle cramps no more than every 8hrs Hydrocodone-Apap 10-325 (Hydrocodone Bit/Acetaminophen) 1 Each Tablet 1 Tab PO PRN Q6HRS PRN as needed for pain every 6 hours Vitals/I & O Vital Sign - Last 24 Hours 12/09/16 12/09/16 12/09/16 12/09/16 12:15 12:49 13:43 14:43 Pulse 68 72 76 76 Resp 18 B/P 194/97 168/70 202/81 163/71 Pulse Ox 97 96 94 93 O2 Delivery Nasal Cannula Nasal Cannula Nasal Cannula Nasal Cannula 12/09/16 12/09/16 12/09/16 12/09/16 15:00 15:30 15:45 16:00 Temp 98.7 98.7 Pulse 80 78 78 Resp 20 22 B/P 136/59 160/74 167/68 Pulse Ox 98 98 98 O2 Delivery Nasal Cannula Nasal Cannula Nasal Cannula Nasal Cannula O2 Flow Rate 3.5 3.5 3.5 3.5 12/09/16 12/09/16 12/09/16 12/09/16 16:15 16:45 16:51 17:00 Pulse 78 78 80 Resp 20 20 20 B/P 154/72 135/51 158/72 Pulse Ox 96 96 97 97 O2 Delivery Nasal Cannula Nasal Cannula Nasal Cannula Nasal Cannula O2 Flow Rate 3.5 3.5 3.0 3.5 3/17/17 3/17/17 3/17/17 3/17/17 18:00 19:45 20:00 20:00 Temp 98.2 98.2 Pulse 74 73 Resp 21 20 B/P 142/66 150/66 Pulse Ox 96 97 99 O2 Delivery Nasal Cannula Nasal Cannula Nasal Cannula Nasal Cannula O2 Flow Rate 3.5 3.0 3.5 3.5 3/17/17 3/17/17 3/17/17 317/17 21:00 21:04 21:04 22:00 Pulse 69 73 72 Resp 18 18 18 B/P 155/65 142/63 155/60 Pulse Ox 98 98 O2 Delivery Nasal Cannula Nasal Cannula Nasal Cannula O2 Flow Rate 3.5 3.5 3.5 317/17 3/17/17 3/18/17 318/17 23:00 23:59 00:00 01:00 Temp 98.4 98.4 Pulse 61 62 60 Resp 18 18 18 B/P 82/60 103/49 89/41 Pulse Ox 98 98 98 O2 Delivery Nasal Cannula Nasal Cannula Nasal Cannula Nasal Cannula O2 Flow Rate 3.5 3.5 3.5 3.5 3/18/17 3/18/17 3/18/17 3/18/17 02:00 03:00 04:00 04:00 Temp 98.2 98.2 Pulse 66 65 63 Resp 18 18 18 B/P 104/51 112/54 120/55 Pulse Ox 98 98 98 O2 Delivery Nasal Cannula Nasal Cannula Nasal Cannula Nasal Cannula O2 Flow Rate 3.5 3.5 3.5 3.5 3/18/17 3/18/17 3/18/17 3/18/17 04:33 05:00 05:33 06:00 Pulse 62 63 Resp 18 18 18 18 B/P 126/57 130/62 Pulse Ox 98 98 O2 Delivery Nasal Cannula Nasal Cannula Nasal Cannula Nasal Cannula O2 Flow Rate 3.5 3.5 3.5 3.5 3/18/17 3/18/17 3/18/17 3/18/17 08:00 08:31 08:42 08:43 Pulse 63 64 B/P 154/73 154/73 Pulse Ox 96 O2 Delivery Nasal Cannula Nasal Cannula O2 Flow Rate 3.5 3.0 12/10/16 12/10/16 10:41 11:51 Pulse Ox 99 96 O2 Delivery Nasal Cannula Nasal Cannula O2 Flow Rate 3.5 3.0 Intake and Output 12/09/16 12/09/16 12/10/16 15:00 23:00 07:00 Intake Total 15 ml 1175 ml 588 ml Output Total 2700 ml 900 ml Balance 15 ml -1525 ml -312 ml Graciela ESPINOZA MD Dec 10, 2016 12:06
--- NOTE | 2016-12-10 12:45 | PDOC ---
PROGRESS NOTES Subjective Subjective Pt feels better, less dyspnea She is off the Cardene drip now Objective Objective Vital Signs Date Time Temp Pulse Resp B/P Pulse Ox O2 Delivery O2 Flow Rate FiO2 12/10/16 11:51 96 Nasal Cannula 3.0 12/10/16 08:43 64 154/73 12/10/16 06:00 18 12/10/16 04:00 98.2 98.2 Intake and Output 12/10/16 07:00 Intake Total 1778 ml Output Total 3600 ml Balance -1822 ml Intake Oral 1075 ml IV Total 215 ml Blood Product IV Normal Saline Flush 488 ml Output Urine Total 3600 ml # Bowel Movements 4 Physical Exam Physical Exam less rales No cardiac changes Assessment Assessment Pt improving Continue with IV Lasix for 24 hrs more and start amlodipine for the BP Problems Medical Problems: (1) Acute on chronic congestive heart failure Status: Acute (2) COPD exacerbation Status: Acute (3) Malignant hypertension Status: Acute (4) Pulmonary edema Status: Acute Comment Review of Relevant I have reviewed the following items jim (where applicable) has been applied. Labs Laboratory Tests Test 12/09/16 10:12 12/09/16 10:15 12/09/16 16:00 12/09/16 18:23 Influenza Type A Antigen Negative (NEGATIVE) Influenza Type B Antigen Negative (NEGATIVE) White Blood Count 9.4x10^3/uL (4.0-11.0) Red Blood Count 4.25x10^6/uL (3.50-5.40) Hemoglobin 12.3g/dL (12.0-15.5) Hematocrit 37.5% (36.0-47.0) Mean Corpuscular Volume 88fL (79-100) Mean Corpuscular Hemoglobin 29pg (25-35) Mean Corpuscular Hemoglobin Concent 33g/dL (31-37) Red Cell Distribution Width 13.2% (11.5-14.5) Platelet Count 293x10^3/uL (140-400) Neutrophils (%) (Auto) 63% (31-73) Lymphocytes (%) (Auto) 23% (24-48) Monocytes (%) (Auto) 8% (0-9) Eosinophils (%) (Auto) 6% (0-3) Basophils (%) (Auto) 1% (0-3) Neutrophils # (Auto) 5.9x10^3uL (1.8-7.7) Lymphocytes # (Auto) 2.2x10^3/uL (1.0-4.8) Monocytes # (Auto) 0.8x10^3/uL (0.0-1.1) Eosinophils # (Auto) 0.5x10^3/uL (0.0-0.7) Basophils # (Auto) 0.1x10^3/uL (0.0-0.2) D-Dimer (Shanelle) 0.41ug/mlFEU (0.00-0.50) Sodium Level 145mmol/L (136-145) Potassium Level 3.5mmol/L (3.5-5.1) Chloride Level 103mmol/L (98-107) Carbon Dioxide Level 33mmol/L (21-32) Anion Gap 9 (6-14) Blood Urea Nitrogen 28mg/dL (7-20) Creatinine 1.3mg/dL (0.6-1.0) Estimated GFR (Cockcroft-Gault) 42.7 BUN/Creatinine Ratio 22 (6-20) Glucose Level 320mg/dL (70-99) Calcium Level 9.2mg/dL (8.5-10.1) Total Bilirubin 0.3mg/dL (0.2-1.0) Aspartate Amino Transf (AST/SGOT) 20U/L (15-37) Alanine Aminotransferase (ALT/SGPT) 26U/L (14-59) Alkaline Phosphatase 140U/L (46-116) Creatine Kinase 82U/L (26-192) Creatine Kinase MB (Mass) 1.1ng/mL (0.0-3.6) Creatine Kinase MB Relative Index 1.3% (0-4) Troponin I Quantitative 0.035ng/mL (0.000-0.055) XH-Chb-V-Type Natriuretic Peptide 2324pg/mL (0-124) Total Protein 7.7g/dL (6.4-8.2) Albumin 3.2g/dL (3.4-5.0) Albumin/Globulin Ratio 0.7 (1.0-1.7) Nasal Screen MRSA (PCR) Negative (Negative) Glucose (Fingerstick) 410mg/dL (70-99) Test 3/17/17 21:09 12/10/16 05:15 12/10/16 08:59 12/10/16 10:03 Glucose (Fingerstick) 473mg/dL (70-99) 480mg/dL (70-99) 519mg/dL (70-99) White Blood Count 7.2x10^3/uL (4.0-11.0) Red Blood Count 4.02x10^6/uL (3.50-5.40) Hemoglobin 11.7g/dL (12.0-15.5) Hematocrit 36.2% (36.0-47.0) Mean Corpuscular Volume 90fL (79-100) Mean Corpuscular Hemoglobin 29pg (25-35) Mean Corpuscular Hemoglobin Concent 32g/dL (31-37) Red Cell Distribution Width 13.4% (11.5-14.5) Platelet Count 279x10^3/uL (140-400) Neutrophils (%) (Auto) 86% (31-73) Lymphocytes (%) (Auto) 11% (24-48) Monocytes (%) (Auto) 2% (0-9) Eosinophils (%) (Auto) 0% (0-3) Basophils (%) (Auto) 0% (0-3) Neutrophils # (Auto) 6.2x10^3uL (1.8-7.7) Lymphocytes # (Auto) 0.8x10^3/uL (1.0-4.8) Monocytes # (Auto) 0.2x10^3/uL (0.0-1.1) Eosinophils # (Auto) 0.0x10^3/uL (0.0-0.7) Basophils # (Auto) 0.0x10^3/uL (0.0-0.2) Segmented Neutrophils % 82% (35-66) Band Neutrophils % 4% (0-9) Lymphocytes % 14% (24-48) Platelet Estimate Adequate (ADEQUATE) Sodium Level 141mmol/L (136-145) Potassium Level 3.9mmol/L (3.5-5.1) Chloride Level 96mmol/L (98-107) Carbon Dioxide Level 34mmol/L (21-32) Anion Gap 11 (6-14) Blood Urea Nitrogen 31mg/dL (7-20) Creatinine 1.4mg/dL (0.6-1.0) Estimated GFR (Cockcroft-Gault) 39.2 Glucose Level 547mg/dL (70-99) Calcium Level 9.0mg/dL (8.5-10.1) Creatine Kinase 76U/L (26-192) Creatine Kinase MB (Mass) 1.5ng/mL (0.0-3.6) Creatine Kinase MB Relative Index 2.0% (0-4) Test 12/10/16 11:05 12/10/16 12:09 Glucose (Fingerstick) 509mg/dL (70-99) 392mg/dL (70-99) Laboratory Tests Test 12/09/16 16:00 12/09/16 18:23 12/09/16 21:09 12/10/16 05:15 Nasal Screen MRSA (PCR) Negative (Negative) Glucose (Fingerstick) 410mg/dL (70-99) 473mg/dL (70-99) White Blood Count 7.2x10^3/uL (4.0-11.0) Red Blood Count 4.02x10^6/uL (3.50-5.40) Hemoglobin 11.7g/dL (12.0-15.5) Hematocrit 36.2% (36.0-47.0) Mean Corpuscular Volume 90fL (79-100) Mean Corpuscular Hemoglobin 29pg (25-35) Mean Corpuscular Hemoglobin Concent 32g/dL (31-37) Red Cell Distribution Width 13.4% (11.5-14.5) Platelet Count 279x10^3/uL (140-400) Neutrophils (%) (Auto) 86% (31-73) Lymphocytes (%) (Auto) 11% (24-48) Monocytes (%) (Auto) 2% (0-9) Eosinophils (%) (Auto) 0% (0-3) Basophils (%) (Auto) 0% (0-3) Neutrophils # (Auto) 6.2x10^3uL (1.8-7.7) Lymphocytes # (Auto) 0.8x10^3/uL (1.0-4.8) Monocytes # (Auto) 0.2x10^3/uL (0.0-1.1) Eosinophils # (Auto) 0.0x10^3/uL (0.0-0.7) Basophils # (Auto) 0.0x10^3/uL (0.0-0.2) Segmented Neutrophils % 82% (35-66) Band Neutrophils % 4% (0-9) Lymphocytes % 14% (24-48) Platelet Estimate Adequate (ADEQUATE) Sodium Level 141mmol/L (136-145) Potassium Level 3.9mmol/L (3.5-5.1) Chloride Level 96mmol/L (98-107) Carbon Dioxide Level 34mmol/L (21-32) Anion Gap 11 (6-14) Blood Urea Nitrogen 31mg/dL (7-20) Creatinine 1.4mg/dL (0.6-1.0) Estimated GFR (Cockcroft-Gault) 39.2 Glucose Level 547mg/dL (70-99) Calcium Level 9.0mg/dL (8.5-10.1) Creatine Kinase 76U/L (26-192) Creatine Kinase MB (Mass) 1.5ng/mL (0.0-3.6) Creatine Kinase MB Relative Index 2.0% (0-4) Test 12/10/16 08:59 12/10/16 10:03 12/10/16 11:05 12/10/16 12:09 Glucose (Fingerstick) 480mg/dL (70-99) 519mg/dL (70-99) 509mg/dL (70-99) 392mg/dL (70-99) Medications Current Medications Albuterol/ Ipratropium (Duoneb) 6 ml 1X ONCE NEB Last administered on 09:56; Start 12/09/16 at 09:45; Stop 12/09/16 at 09:46; Status DC Methylprednisolone Sodium Succinate (Solu-Medrol 125mg Vial) 100 mg 1X ONCE IV Last administered on 12/09/16 10:32; Start 12/09/16 at 09:45; Stop 12/09/16 at 09:46; Status DC Ondansetron HCl 4 mg 4 mg PRN Q8HRS PRN IV NAUSEA/VOMITING; Start 12/09/16 at 11:45; Stop 12/10/16 at 11:44; Status DC Sodium Chloride (Iv Sodium Chloride 0.9% 1000ml Bag) 1,000 ml @ 0 mls/hr Q0M IV Last administered on 12/09/16 13:09; Start 12/09/16 at 12:00; Stop at 11:59; Status DC Acetaminophen (Tylenol) 650 mg PRN Q4HRS PRN PO FEVER; Start 12/09/16 at 11:45 ; Stop 12/10/16 at 11:44; Status DC Albuterol/ Ipratropium 3 ml 3 ml RTQID NEB Last administered on 12/10/16 11:49 ; Start 12/09/16 at 12:00; Stop 12/10/16 at 11:59; Status DC Nicardipine HCl/ Sodium Chloride (Cardene/Iv Sodium Chloride 0.9% 250ml) 270 ml @ 0 mls/hr CONT PRN IV SEE I/O RECORD Last administered on 12/09/16 19:30; Start 12/09/16 at 11:45 Furosemide (Lasix) 60 mg TID IVP Last administered on 12/10/16 08:44; Start at 14:00; Stop 12/10/16 at 10:58; Status DC Lidocaine HCl (Glydo (Lidocaine) Jelly) 1 eric 1X ONCE MM Last administered on 12/09/16 16:15; Start 12/09/16 at 16:15; Stop 12/09/16 at 16:16; Status DC Nystatin (Nystop) 1 eric BID TP Last administered on 12/10/16 08:43; Start at 17:00 Aspirin (Children'S Aspirin) 81 mg DAILY PO Last administered on 12/10/16 08: 42; Start 12/10/16 at 09:00 Atorvastatin Calcium (Lipitor) 20 mg DAILY PO ; Start 12/10/16 at 09:00; Stop at 10:50; Status DC Clonidine HCl (Catapres) 0.1 mg TID PO Last administered on 12/10/16 08:43; Start 12/09/16 at 21:00 Dabigatran (Pradaxa) 150 mg BID PO Last administered on 12/10/16 08:42; Start 12/09/16 at 21:00 Fenofibrate (Lofibra) 134 mg DAILY PO Last administered on 12/10/16 08:41; Start 12/10/16 at 09:00 Acetaminophen/ Hydrocodone Bitart (Lortab 10/325) 1 tab PRN Q6HRS PRN PO PAIN Last administered on 12/10/16 10:41; Start 12/09/16 at 17:30 Isosorbide Mononitrate (Imdur) 30 mg DAILY PO Last administered on 12/10/16 08 :42; Start 12/10/16 at 09:00 Levothyroxine Sodium (Synthroid) 50 mcg DAILY07 PO Last administered on 06:31; Start 12/10/16 at 07:00 Metolazone (Zaroxolyn) 2 mg QMWF PRN PO AD; Start 12/09/16 at 17:30 Duloxetine HCl (Cymbalta) 60 mg BID PO ; Start 12/10/16 at 21:00 Pantoprazole Sodium (Protonix) 40 mg DAILYAC PO Last administered on 12/10/16 08:42; Start 12/10/16 at 07:30 Insulin Detemir (Levemir) 40 units DAILYWBKFT SQ Last administered on 21:12; Start 12/09/16 at 21:00; Stop 12/10/16 at 07:11; Status DC Insulin Aspart (Novolog) 20 units TIDBFRMEAL SQ ; Start 12/10/16 at 07:30; Stop 12/10/16 at 07:30; Status DC Pregabalin (Lyrica) 150 mg BID PO Last administered on 12/10/16 08:42; Start 12/09/16 at 21:00 Tizanidine HCl (Zanaflex) 4 mg PRN Q8HRS PRN PO MUSCLE SPASMS Last administered on 12/09/16 21:04; Start 12/09/16 at 17:45 Budesonide (Pulmicort) 0.5 mg RTBID NEB Last administered on 12/09/16 19:45; Start 12/09/16 at 20:00 Insulin Aspart (Novolog) 0-9 UNITS TIDWMEALS SQ ; Start 12/10/16 at 08:00; Stop 12/10/16 at 08:00; Status DC Dextrose 12.5 gm PRN Q15MIN PRN IV SEE COMMENTS; Start 12/09/16 at 17:45; Stop 12/10/16 at 07:43; Status DC Insulin Aspart (Novolog) 20 units TIDBFRMEAL SQ Last administered on 12/09/16 19:27; Start 12/09/16 at 19:15; Stop 12/10/16 at 07:11; Status DC Potassium Chloride 20 meq 20 meq TID PO Last administered on 12/10/16 08:42; Start 12/09/16 at 21:00 Insulin Human Regular/Sodium Chloride (Novolin R Vial/ Iv Normal Saline 150ml) 151.5 ml @ 0 mls/hr CONT PRN IV SEE I/O RECORD Last administered on 12/10/16 07:55; Start 12/10/16 at 07:15 Dextrose 12.5 gm PRN Q15MIN PRN IV LOW BLOOD SUGAR; Start 12/10/16 at 07:15 Atorvastatin Calcium (Lipitor) 20 mg QHS PO ; Start 12/10/16 at 21:00 Furosemide (Lasix) 60 mg TID IVP ; Start 12/10/16 at 14:00; Stop 12/10/16 at 23: 55 Furosemide (Lasix) 60 mg DAILY PO ; Start 12/11/16 at 09:00 Amlodipine Besylate (Norvasc) 5 mg BID PO ; Start 12/10/16 at 21:00 Active Scripts Active Keflex (Cephalexin) 500 Mg Capsule 500 Mg PO QID 3 Days Nitrostat (Nitroglycerin) 0.4 Mg Tab.subl 0.4 Mg SL PRN Q5MIN PRN 30 Days Reported Lyrica (Pregabalin) 150 Mg Capsule 1 Cap PO BID Cymbalta (Duloxetine Hcl) 60 Mg Capsule.dr 1 Cap PO BID Metolazone 2.5 Mg Tablet 2 Mg PO QMWF PRN Lantus (Insulin Glargine,Hum.rec.anlog) 100 Unit/1 Ml Vial 40 Unit SQ DAILY07 Humalog (Insulin Lispro) 100 Unit/1 Ml Insuln.pen 20 Unit SQ TIDACHC Atorvastatin Calcium 20 Mg Tablet 1 Tab PO DAILY Nexium Capsule (Esomeprazole Magnesium) 40 Mg Capsule.dr 1 Cap PO DAILY Isosorbide Mononitrate Er (Isosorbide Mononitrate) 30 Mg Tab.er.24h 1 Tab PO DAILY Aspirin 81 Mg Tab.chew 1 Tab PO DAILY Pradaxa (Dabigatran Etexilate Mesylate) 150 Mg Capsule 1 Cap PO BID Levothyroxine Sodium 50 Mcg Tablet 1 Tab PO DAILY Fenofibrate (Fenofibrate,Micronized) 134 Mg Capsule 1 Cap PO DAILY Clonidine Hcl 0.1 Mg Tablet 0.1 Mg PO TID Zanaflex (Tizanidine Hcl) 4 Mg Capsule 4 Mg PO PRN Q8HRS PRN as needed for muscle cramps no more than every 8hrs Hydrocodone-Apap 10-325 (Hydrocodone Bit/Acetaminophen) 1 Each Tablet 1 Tab PO PRN Q6HRS PRN as needed for pain every 6 hours Vitals/I & O Vital Sign - Last 24 Hours 12/09/16 12/09/16 12/09/16 12/09/16 12:49 13:43 14:43 15:00 Pulse 72 76 76 Resp 19 20 21 B/P 168/70 202/81 163/71 Pulse Ox 96 94 93 O2 Delivery Nasal Cannula Nasal Cannula Nasal Cannula Nasal Cannula O2 Flow Rate 3.5 12/09/16 12/09/16 12/09/16 12/09/16 15:30 15:45 16:00 16:15 Temp 98.7 98.7 Pulse 80 78 78 78 Resp 20 20 22 20 B/P 136/59 160/74 167/68 154/72 Pulse Ox 98 98 98 96 O2 Delivery Nasal Cannula Nasal Cannula Nasal Cannula Nasal Cannula O2 Flow Rate 3.5 3.5 3.5 3.5 12/09/16 12/09/16 12/09/16 12/09/16 16:45 16:51 17:00 18:00 Pulse 78 80 74 Resp 20 21 B/P 135/51 158/72 142/66 Pulse Ox 96 97 97 96 O2 Delivery Nasal Cannula Nasal Cannula Nasal Cannula Nasal Cannula O2 Flow Rate 3.5 3.0 3.5 3.5 12/09/16 12/09/16 12/09/16 12/09/16 19:45 20:00 20:00 21:00 Temp 98.2 98.2 Pulse 73 69 Resp 20 18 B/P 150/66 155/65 Pulse Ox 97 99 98 O2 Delivery Nasal Cannula Nasal Cannula Nasal Cannula Nasal Cannula O2 Flow Rate 3.0 3.5 3.5 3.5 12/09/16 12/09/16 12/09/16 12/09/16 21:04 21:04 22:00 23:00 Pulse 73 72 61 Resp 18 18 18 B/P 142/63 155/60 82/60 Pulse Ox 98 98 O2 Delivery Nasal Cannula Nasal Cannula Nasal Cannula O2 Flow Rate 3.5 3.5 3.5 17 1817 17 12/10/16 23:59 00:00 01:00 02:00 Temp 98.4 98.4 Pulse 62 60 66 Resp 18 18 18 B/P 103/49 89/41 104/51 Pulse Ox 98 98 98 O2 Delivery Nasal Cannula Nasal Cannula Nasal Cannula Nasal Cannula O2 Flow Rate 3.5 3.5 3.5 3.5 12/10/16 12/10/16 12/10/16 12/10/16 03:00 04:00 04:00 04:33 Temp 98.2 98.2 Pulse 65 63 Resp 18 18 18 B/P 112/54 120/55 Pulse Ox 98 98 O2 Delivery Nasal Cannula Nasal Cannula Nasal Cannula Nasal Cannula O2 Flow Rate 3.5 3.5 3.5 3.5 12/10/16 12/10/16 12/10/16 12/10/16 05:00 05:33 06:00 08:00 Pulse 62 63 Resp 18 18 18 B/P 126/57 130/62 Pulse Ox 98 98 O2 Delivery Nasal Cannula Nasal Cannula Nasal Cannula Nasal Cannula O2 Flow Rate 3.5 3.5 3.5 3.5 12/10/1617 12/10/16 12/10/16 08:31 08:42 08:43 10:41 Pulse 63 64 B/P 154/73 154/73 Pulse Ox 96 99 O2 Delivery Nasal Cannula Nasal Cannula O2 Flow Rate 3.0 3.5 12/10/16 11:51 Pulse Ox 96 O2 Delivery Nasal Cannula O2 Flow Rate 3.0 Intake and Output 12/09/16 12/09/16 12/10/16 15:00 23:00 07:00 Intake Total 15 ml 1175 ml 588 ml Output Total 2700 ml 900 ml Balance 15 ml -1525 ml -312 ml JON WEAVER MD Dec 10, 2016 12:45
--- NOTE | 2016-12-10 14:25 | CARD ---
APPROVED REPORT EXAM: Two-dimensional and M-mode echocardiogram with Doppler and color Doppler. Other Information Quality : Fair INDICATION Chest Pain 2D DIMENSIONS RVDd3.1 (2.9-3.5cm)Left Atrium(2D)4.8 (1.6-4.0cm) IVSd1.6 (0.7-1.1cm)Aortic Root(2D)2.8 (2.0-3.7cm) LVDd4.1 (3.9-5.9cm)LVOT Diameter1.9 (1.8-2.4cm) PWd1.6 (0.7-1.1cm)LVDs2.2 (2.5-4.0cm) FS (%) 30.0 %SV58.2 ml LVEF(%)60.0 (>50%) Aortic Valve AoV Peak Phil.210.2cm/sAoV VTI43.7cm AO Peak GR.17.7mmHgLVOT VTI 32.97cm AO Mean GR.10mmHgAVA (VTI)2.10cm2 Mitral Valve MV E Psehffkj682.4cm/sMV DECEL TNOH794gx MV A Ankwubrj012.8cm/sE/A Ratio1.1 TDI Lateral E' P. V7.08cm/sMedial E' P. V5.66cm/s E/Lateral E'19.8E/Medial E'24.8 Tricuspid Valve TR P. Wxywwjoc248xi/sRAP CHOOONSU6qvPf TR Peak Gr.07saBoCADW45kyWr Pulmonary Vein S1 Hipxzhad00.0cm/sS2 Nqcdmqui50.26cm/s D2 Pjblucog71.3cm/sPVa [id number] LEFT VENTRICLE The left ventricle is normal size. There is mild to moderate concentric left ventricular hypertrophy. The left ventricular systolic function is normal and the ejection fraction is within normal range. T he Ejection Fraction is 60%. There is normal LV segmental wall motion. Transmitral Doppler flow patte rn is Grade II-pseudonormal filling dynamics. RIGHT VENTRICLE The right ventricle is normal size. The right ventricular systolic function is normal. ATRIA The left atrium is mildly dilated. The right atrium size is normal. The interatrial septum is intact with no evidence for an atrial septal defect or patent foramen ovale as noted on 2-D or Doppler imagi ng. AORTIC VALVE The aortic valve is not well visualized. Doppler and Color Flow revealed no significant aortic regurg itation. There is no significant aortic valvular stenosis. MITRAL VALVE The mitral valve is calcified but opens well. Mitral annular calcification is mild. There is no evide nce of mitral valve prolapse. There is no mitral valve stenosis. Doppler and Color-flow revealed trac e to mild mitral regurgitation. TRICUSPID VALVE The tricuspid valve is normal in structure Doppler and Color Flow revealed mild to moderate tricuspid regurgitation. There is moderate pulmonary hypertension. The PA pressure was estimated at 47 mmHg. T here is no tricuspid valve stenosis. PULMONIC VALVE The pulmonary valve is normal in structure and function. Doppler and Color Flow revealed no pulmonic valvular regurgitation. There is no pulmonic valvular stenosis. GREAT VESSELS The aortic root is normal in size. The ascending aorta is not well seen. The IVC is dilated and colla pses >50% with inspiration. PERICARDIAL EFFUSION There is no evidence of significant pericardial effusion. Critical Notification Critical Value: No <Conclusion> The left ventricular systolic function is normal and the ejection fraction is within normal range. The Ejection Fraction is 60%. Transmitral Doppler flow pattern is Grade II-pseudonormal filling dynamics. The left atrium is mildly dilated. The right atrium size is normal. The aortic valve is not well visualized. Doppler and Color-flow revealed trace to mild mitral regurgitation. The mitral valve is calcified but opens well. Mitral annular calcification is mild. Doppler and Color Flow revealed mild to moderate tricuspid regurgitation. There is moderate pulmonary hypertension. The PA pressure was estimated at 47 mmHg. The pulmonary valve is normal in structure and function. There is no evidence of significant pericardial effusion.
[2016-12-10] MEDS: DULOXETINE HCL 30 MG CAPSULE.DR. PO SCH (20:44)
[2016-12-10] MEDS: ATORVASTATIN CALCIUM 20 MG TABLET PO SCH (20:44)
[2016-12-10] MEDS: AMLODIPINE BESYLATE 5 MG TABLET PO SCH (20:44)
[2016-12-10] MEDS: tiZANidine 4 MG TABLET. PO PRN (22:19)
[2016-12-11 03:33] VITALS: BP 134/68
[2016-12-11 07:00] VITALS: BP 136/79
[2016-12-11] MEDS: ISOSORBIDE MONONITRATE ER 30 MG TAB.ER.24H PO SCH (07:44)
[2016-12-11] MEDS: LEVOTHYROXINE 50 MCG TABLET PO SCH (07:44)
[2016-12-11] MEDS: CLONIDINE HCL 0.1 MG TABLET PO SCH ×3 (07:44→20:33)
[2016-12-11] MEDS: AMLODIPINE BESYLATE 5 MG TABLET PO SCH ×2 (07:45→20:33)
[2016-12-11] MEDS: DULOXETINE HCL 30 MG CAPSULE.DR. PO SCH ×2 (07:45→20:33)
[2016-12-11] MEDS: FENOFIBRATE,MICRONIZED 134 MG CAPSULE PO SCH (07:45)
[2016-12-11] MEDS: PREGABALIN 75 MG CAPSULE PO SCH ×2 (07:45→20:33)
[2016-12-11] MEDS: ASPIRIN 81 MG TAB.CHEW PO SCH (07:46)
[2016-12-11] MEDS: DABIGATRAN ETEXILATE 150 MG CAPSULE. PO SCH ×2 (07:46→20:35)
[2016-12-11] MEDS: FUROSEMIDE 40 MG TABLET PO SCH (07:46)
[2016-12-11] MEDS: PANTOPRAZOLE 40 MG TABLET. PO SCH (07:46)
[2016-12-11 07:47] LABS: HEMATOCRIT 36.6 % (36.0-47.0); HEMOGLOBIN 11.8 g/dL (12.0-15.5); RED BLOOD COUNT 4.1 x10^6/uL (3.50-5.40); RED CELL DISTRIBUTION WIDTH 13.2 % (11.5-14.5); WHITE BLOOD COUNT 13.9 x10^3/uL (4.0-11.0)
[2016-12-11] MEDS: HYDROCODONE/APAP 10/325 TABLET. PO PRN ×2 (07:53→22:42)
[2016-12-11] MEDS: POTASSIUM CHLORIDE 20 MEQ TABLET.ER. PO SCH ×3 (07:53→20:34)
[2016-12-11] MEDS: NYSTATIN TOPICAL POWDER 15GM BOTTLE. TP SCH ×2 (07:55→20:35)
[2016-12-11 08:06] LABS: CALCIUM 9.2 mg/dL (8.5-10.1); CREATININE 1.6 mg/dL (0.6-1.0); GFR 33.6; POTASSIUM 3.6 mmol/L (3.5-5.1)
[2016-12-11] MEDS: IPRATRPIUM/ALBUTEROL 0.5/2.5MG 3 ML NEBU. NEB SCH ×4 (09:13→20:04)
[2016-12-11] MEDS: BUDESONIDE 0.5 MG/2 ML NEBU NEB SCH ×2 (09:13→20:04)
[2016-12-11] MEDS ORDERED: FUROSEMIDE 40 MG/4 ML VIAL IVP ONE (10:30)
[2016-12-11 11:00] VITALS: BP 108/53
--- NOTE | 2016-12-11 11:06 | PDOC ---
PROGRESS NOTES Subjective Subjective She is now off IV lasix but her swelling has worsened, sugar is now controlled on insulin drip, breathing better Objective Objective Vital Signs Date Time Temp Pulse Resp B/P Pulse Ox O2 Delivery O2 Flow Rate FiO2 12/11/16 10:02 94 Nasal Cannula 3.0 12/11/16 07:53 18 12/11/16 07:45 48 136/79 12/11/16 07:00 96.4 96.4 Intake and Output 12/11/16 07:00 Intake Total 2090 ml Output Total 1505 ml Balance 585 ml Intake Oral 2090 ml Output Urine Total 1505 ml Physical Exam Abdomen: Soft Heart: Regular rate Extremities: No clubbing, No cyanosis, Other (edema of hands and feet) General: Alert, Oriented X3, Cooperative HEENT: Atraumatic, EOMI, Mucous membr. moist/pink Lungs: Other (dimminished but no wheezes) Neck: Supple, No JVD Neuro: Normal speech Psych/Mental Status: Mental status NL Skin: No breakdown Assessment Assessment Problems Medical Problems: (1) Acute on chronic congestive heart failure Status: Acute (2) COPD exacerbation Status: Acute (3) Malignant hypertension Status: Acute (4) Pulmonary edema Status: Acute Plan Plan of Care transition back to Levemir/Novolog, monitor BUN/CR/K+, one extra IV dose of Lasix 40 mg now, watch WBC as it went up but possibly from steroids, if it remains up further eval indicated but no clinical evidence of infection Comment Review of Relevant I have reviewed the following items jim (where applicable) has been applied. Labs Laboratory Tests Test 12/09/16 16:00 12/09/16 18:23 12/09/16 21:09 12/10/16 05:15 Nasal Screen MRSA (PCR) Negative (Negative) Glucose (Fingerstick) 410mg/dL (70-99) 473mg/dL (70-99) White Blood Count 7.2x10^3/uL (4.0-11.0) Red Blood Count 4.02x10^6/uL (3.50-5.40) Hemoglobin 11.7g/dL (12.0-15.5) Hematocrit 36.2% (36.0-47.0) Mean Corpuscular Volume 90fL (79-100) Mean Corpuscular Hemoglobin 29pg (25-35) Mean Corpuscular Hemoglobin Concent 32g/dL (31-37) Red Cell Distribution Width 13.4% (11.5-14.5) Platelet Count 279x10^3/uL (140-400) Neutrophils (%) (Auto) 86% (31-73) Lymphocytes (%) (Auto) 11% (24-48) Monocytes (%) (Auto) 2% (0-9) Eosinophils (%) (Auto) 0% (0-3) Basophils (%) (Auto) 0% (0-3) Neutrophils # (Auto) 6.2x10^3uL (1.8-7.7) Lymphocytes # (Auto) 0.8x10^3/uL (1.0-4.8) Monocytes # (Auto) 0.2x10^3/uL (0.0-1.1) Eosinophils # (Auto) 0.0x10^3/uL (0.0-0.7) Basophils # (Auto) 0.0x10^3/uL (0.0-0.2) Segmented Neutrophils % 82% (35-66) Band Neutrophils % 4% (0-9) Lymphocytes % 14% (24-48) Platelet Estimate Adequate (ADEQUATE) Sodium Level 141mmol/L (136-145) Potassium Level 3.9mmol/L (3.5-5.1) Chloride Level 96mmol/L (98-107) Carbon Dioxide Level 34mmol/L (21-32) Anion Gap 11 (6-14) Blood Urea Nitrogen 31mg/dL (7-20) Creatinine 1.4mg/dL (0.6-1.0) Estimated GFR (Cockcroft-Gault) 39.2 Glucose Level 547mg/dL (70-99) Calcium Level 9.0mg/dL (8.5-10.1) Creatine Kinase 76U/L (26-192) Creatine Kinase MB (Mass) 1.5ng/mL (0.0-3.6) Creatine Kinase MB Relative Index 2.0% (0-4) Test 12/10/16 08:59 12/10/16 10:03 12/10/16 11:05 12/10/16 12:09 Glucose (Fingerstick) 480mg/dL (70-99) 519mg/dL (70-99) 509mg/dL (70-99) 392mg/dL (70-99) Test 12/10/16 13:11 12/10/16 14:14 12/10/16 15:18 12/10/16 16:23 Glucose (Fingerstick) 424mg/dL (70-99) 359mg/dL (70-99) 348mg/dL (70-99) 315mg/dL (70-99) Test 12/10/16 17:32 12/10/16 18:34 12/10/16 19:41 12/10/16 20:54 Glucose (Fingerstick) 290mg/dL (70-99) 298mg/dL (70-99) 321mg/dL (70-99) 234mg/dL (70-99) Test 12/10/16 21:57 12/10/16 23:01 12/11/16 00:06 12/11/16 01:09 Glucose (Fingerstick) 202mg/dL (70-99) 180mg/dL (70-99) 177mg/dL (70-99) 136mg/dL (70-99) Test 12/11/16 02:13 12/11/16 03:15 12/11/16 04:19 12/11/16 05:17 Glucose (Fingerstick) 124mg/dL (70-99) 118mg/dL (70-99) 108mg/dL (70-99) 108mg/dL (70-99) Test 12/11/16 06:13 12/11/16 06:20 12/11/16 07:23 12/11/16 08:28 Glucose (Fingerstick) 111mg/dL (70-99) 108mg/dL (70-99) 133mg/dL (70-99) White Blood Count 13.9x10^3/uL (4.0-11.0) Red Blood Count 4.10x10^6/uL (3.50-5.40) Hemoglobin 11.8g/dL (12.0-15.5) Hematocrit 36.6% (36.0-47.0) Mean Corpuscular Volume 89fL (79-100) Mean Corpuscular Hemoglobin 29pg (25-35) Mean Corpuscular Hemoglobin Concent 32g/dL (31-37) Red Cell Distribution Width 13.2% (11.5-14.5) Platelet Count 290x10^3/uL (140-400) Sodium Level 146mmol/L (136-145) Potassium Level 3.6mmol/L (3.5-5.1) Chloride Level 102mmol/L (98-107) Carbon Dioxide Level 37mmol/L (21-32) Anion Gap 7 (6-14) Blood Urea Nitrogen 48mg/dL (7-20) Creatinine 1.6mg/dL (0.6-1.0) Estimated GFR (Cockcroft-Gault) 33.6 Glucose Level 118mg/dL (70-99) Calcium Level 9.2mg/dL (8.5-10.1) Test 12/11/16 09:31 Glucose (Fingerstick) 196mg/dL (70-99) Laboratory Tests Test 12/10/16 11:05 12/10/16 12:09 12/10/16 13:11 12/10/16 14:14 Glucose (Fingerstick) 509mg/dL (70-99) 392mg/dL (70-99) 424mg/dL (70-99) 359mg/dL (70-99) Test 12/10/16 15:18 12/10/16 16:23 12/10/16 17:32 12/10/16 18:34 Glucose (Fingerstick) 348mg/dL (70-99) 315mg/dL (70-99) 290mg/dL (70-99) 298mg/dL (70-99) Test 12/10/16 19:41 12/10/16 20:54 12/10/16 21:57 12/10/16 23:01 Glucose (Fingerstick) 321mg/dL (70-99) 234mg/dL (70-99) 202mg/dL (70-99) 180mg/dL (70-99) Test 12/11/16 00:06 12/11/16 01:09 12/11/16 02:13 12/11/16 03:15 Glucose (Fingerstick) 177mg/dL (70-99) 136mg/dL (70-99) 124mg/dL (70-99) 118mg/dL (70-99) Test 12/11/16 04:19 12/11/16 05:17 12/11/16 06:13 12/11/16 06:20 Glucose (Fingerstick) 108mg/dL (70-99) 108mg/dL (70-99) 111mg/dL (70-99) White Blood Count 13.9x10^3/uL (4.0-11.0) Red Blood Count 4.10x10^6/uL (3.50-5.40) Hemoglobin 11.8g/dL (12.0-15.5) Hematocrit 36.6% (36.0-47.0) Mean Corpuscular Volume 89fL (79-100) Mean Corpuscular Hemoglobin 29pg (25-35) Mean Corpuscular Hemoglobin Concent 32g/dL (31-37) Red Cell Distribution Width 13.2% (11.5-14.5) Platelet Count 290x10^3/uL (140-400) Sodium Level 146mmol/L (136-145) Potassium Level 3.6mmol/L (3.5-5.1) Chloride Level 102mmol/L (98-107) Carbon Dioxide Level 37mmol/L (21-32) Anion Gap 7 (6-14) Blood Urea Nitrogen 48mg/dL (7-20) Creatinine 1.6mg/dL (0.6-1.0) Estimated GFR (Cockcroft-Gault) 33.6 Glucose Level 118mg/dL (70-99) Calcium Level 9.2mg/dL (8.5-10.1) Test 12/11/16 07:23 12/11/16 08:28 12/11/16 09:31 Glucose (Fingerstick) 108mg/dL (70-99) 133mg/dL (70-99) 196mg/dL (70-99) Medications Current Medications Albuterol/ Ipratropium (Duoneb) 6 ml 1X ONCE NEB Last administered on 09:56; Start 12/09/16 at 09:45; Stop 12/09/16 at 09:46; Status DC Methylprednisolone Sodium Succinate (Solu-Medrol 125mg Vial) 100 mg 1X ONCE IV Last administered on 12/09/16 10:32; Start 12/09/16 at 09:45; Stop 12/09/16 at 09:46; Status DC Ondansetron HCl 4 mg 4 mg PRN Q8HRS PRN IV NAUSEA/VOMITING; Start 12/09/16 at 11:45; Stop 12/10/16 at 11:44; Status DC Sodium Chloride (Iv Sodium Chloride 0.9% 1000ml Bag) 1,000 ml @ 0 mls/hr Q0M IV Last administered on 12/09/16 13:09; Start 12/09/16 at 12:00; Stop at 11:59; Status DC Acetaminophen (Tylenol) 650 mg PRN Q4HRS PRN PO FEVER; Start 12/09/16 at 11:45 ; Stop 12/10/16 at 11:44; Status DC Albuterol/ Ipratropium 3 ml 3 ml RTQID NEB Last administered on 12/10/16 11:49 ; Start 12/09/16 at 12:00; Stop 12/10/16 at 11:59; Status DC Nicardipine HCl/ Sodium Chloride (Cardene/Iv Sodium Chloride 0.9% 250ml) 270 ml @ 0 mls/hr CONT PRN IV SEE I/O RECORD Last administered on 12/09/16 19:30; Start 12/09/16 at 11:45 Furosemide (Lasix) 60 mg TID IVP Last administered on 12/10/16 08:44; Start at 14:00; Stop 12/10/16 at 10:58; Status DC Lidocaine HCl (Glydo (Lidocaine) Jelly) 1 eric 1X ONCE MM Last administered on 12/09/16 16:15; Start 12/09/16 at 16:15; Stop 12/09/16 at 16:16; Status DC Nystatin (Nystop) 1 eric BID TP Last administered on 12/10/16 21:00; Start at 17:00 Aspirin (Children'S Aspirin) 81 mg DAILY PO Last administered on 12/11/16 07: 46; Start 12/10/16 at 09:00 Atorvastatin Calcium (Lipitor) 20 mg DAILY PO ; Start 12/10/16 at 09:00; Stop at 10:50; Status DC Clonidine HCl (Catapres) 0.1 mg TID PO Last administered on 12/11/16 07:44; Start 12/09/16 at 21:00 Dabigatran (Pradaxa) 150 mg BID PO Last administered on 12/11/16 07:46; Start 12/09/16 at 21:00 Fenofibrate (Lofibra) 134 mg DAILY PO Last administered on 12/11/16 07:45; Start 12/10/16 at 09:00 Acetaminophen/ Hydrocodone Bitart (Lortab 10/325) 1 tab PRN Q6HRS PRN PO PAIN Last administered on 12/11/16 07:53; Start 12/09/16 at 17:30 Isosorbide Mononitrate (Imdur) 30 mg DAILY PO Last administered on 12/11/16 07 :44; Start 12/10/16 at 09:00 Levothyroxine Sodium (Synthroid) 50 mcg DAILY07 PO Last administered on 07:44; Start 12/10/16 at 07:00 Metolazone (Zaroxolyn) 2 mg QMWF PRN PO AD; Start 12/09/16 at 17:30 Duloxetine HCl (Cymbalta) 60 mg BID PO Last administered on 12/11/16 07:45; Start 12/10/16 at 21:00 Pantoprazole Sodium (Protonix) 40 mg DAILYAC PO Last administered on 12/11/16 07:46; Start 12/10/16 at 07:30 Insulin Detemir (Levemir) 40 units DAILYWBKFT SQ Last administered on 21:12; Start 12/09/16 at 21:00; Stop 12/10/16 at 07:11; Status DC Insulin Aspart (Novolog) 20 units TIDBFRMEAL SQ ; Start 12/10/16 at 07:30; Stop 12/10/16 at 07:30; Status DC Pregabalin (Lyrica) 150 mg BID PO Last administered on 12/11/16 07:45; Start 12/09/16 at 21:00 Tizanidine HCl (Zanaflex) 4 mg PRN Q8HRS PRN PO MUSCLE SPASMS Last administered on 12/10/16 22:19; Start 12/09/16 at 17:45 Budesonide (Pulmicort) 0.5 mg RTBID NEB Last administered on 12/11/16 09:13; Start 12/09/16 at 20:00 Insulin Aspart (Novolog) 0-9 UNITS TIDWMEALS SQ ; Start 12/10/16 at 08:00; Stop 12/10/16 at 08:00; Status DC Dextrose 12.5 gm PRN Q15MIN PRN IV SEE COMMENTS; Start 12/09/16 at 17:45; Stop 12/10/16 at 07:43; Status DC Insulin Aspart (Novolog) 20 units TIDBFRMEAL SQ Last administered on 12/09/16 19:27; Start 12/09/16 at 19:15; Stop 12/10/16 at 07:11; Status DC Potassium Chloride 20 meq 20 meq TID PO Last administered on 12/11/16 07:53; Start 12/09/16 at 21:00 Insulin Human Regular/Sodium Chloride (Novolin R Vial/ Iv Normal Saline 150ml) 151.5 ml @ 0 mls/hr CONT PRN IV SEE I/O RECORD Last administered on 12/10/16 15:51; Start 12/10/16 at 07:15; Stop 12/11/16 at 10:26; Status DC Dextrose 12.5 gm PRN Q15MIN PRN IV LOW BLOOD SUGAR; Start 12/10/16 at 07:15 Atorvastatin Calcium (Lipitor) 20 mg QHS PO Last administered on 12/10/16 20: 44; Start 12/10/16 at 21:00 Furosemide (Lasix) 60 mg TID IVP Last administered on 12/10/16 20:42; Start at 14:00; Stop 12/10/16 at 23:55; Status DC Furosemide (Lasix) 60 mg DAILY PO Last administered on 12/11/16 07:46; Start 12/11/16 at 09:00 Amlodipine Besylate (Norvasc) 5 mg BID PO Last administered on 12/11/16 07:45 ; Start 12/10/16 at 21:00 Albuterol/ Ipratropium (Duoneb) 3 ml RTQID NEB Last administered on 12/11/16 09:13; Start 12/10/16 at 20:00 Insulin Detemir (Levemir) 27 units Q12HR SQ ; Start 12/11/16 at 10:30 Insulin Aspart (Novolog) 14 units TIDAC SQ ; Start 12/11/16 at 11:30 Furosemide (Lasix) 40 mg 1X ONCE IVP ; Start 12/11/16 at 10:30; Stop 12/11/16 at 10:31; Status DC Active Scripts Active Keflex (Cephalexin) 500 Mg Capsule 500 Mg PO QID 3 Days Nitrostat (Nitroglycerin) 0.4 Mg Tab.subl 0.4 Mg SL PRN Q5MIN PRN 30 Days Reported Lyrica (Pregabalin) 150 Mg Capsule 1 Cap PO BID Cymbalta (Duloxetine Hcl) 60 Mg Capsule.dr 1 Cap PO BID Metolazone 2.5 Mg Tablet 2 Mg PO QMWF PRN Lantus (Insulin Glargine,Hum.rec.anlog) 100 Unit/1 Ml Vial 40 Unit SQ DAILY07 Humalog (Insulin Lispro) 100 Unit/1 Ml Insuln.pen 20 Unit SQ TIDACHC Atorvastatin Calcium 20 Mg Tablet 1 Tab PO DAILY Nexium Capsule (Esomeprazole Magnesium) 40 Mg Capsule.dr 1 Cap PO DAILY Isosorbide Mononitrate Er (Isosorbide Mononitrate) 30 Mg Tab.er.24h 1 Tab PO DAILY Aspirin 81 Mg Tab.chew 1 Tab PO DAILY Pradaxa (Dabigatran Etexilate Mesylate) 150 Mg Capsule 1 Cap PO BID Levothyroxine Sodium 50 Mcg Tablet 1 Tab PO DAILY Fenofibrate (Fenofibrate,Micronized) 134 Mg Capsule 1 Cap PO DAILY Clonidine Hcl 0.1 Mg Tablet 0.1 Mg PO TID Zanaflex (Tizanidine Hcl) 4 Mg Capsule 4 Mg PO PRN Q8HRS PRN as needed for muscle cramps no more than every 8hrs Hydrocodone-Apap 10-325 (Hydrocodone Bit/Acetaminophen) 1 Each Tablet 1 Tab PO PRN Q6HRS PRN as needed for pain every 6 hours Vitals/I & O Vital Sign - Last 24 Hours 12/10/16 12/10/16 12/10/16 12/10/16 11:51 12:00 14:00 15:00 Temp 98.4 98.4 Pulse 66 62 60 Resp 20 B/P 113/50 100/51 97/48 Pulse Ox 96 O2 Delivery Nasal Cannula Nasal Cannula O2 Flow Rate 3.0 3.5 12/10/16 12/10/16 12/10/16 12/10/16 16:00 19:13 19:15 20:33 Temp 98.4 99.4 98.4 99.4 Pulse 64 58 Resp 13 20 B/P 100/46 105/62 Pulse Ox 99 98 O2 Delivery Nasal Cannula Nasal Cannula Nasal Cannula Nasal Cannula O2 Flow Rate 3.5 3.5 3.5 3.0 12/10/16 12/10/16 12/10/16 12/10/16 20:44 20:44 22:20 23:05 Temp 98.4 98.4 Pulse 58 58 63 Resp 18 18 B/P 105/62 105/62 125/54 Pulse Ox 90 90 O2 Delivery Room Air Room Air 12/10/16 12/11/16 12/11/16 12/11/16 23:30 03:33 07:00 07:44 Temp 97.5 96.4 97.5 96.4 Pulse 50 48 48 Resp 18 18 18 B/P 134/68 136/79 136/79 Pulse Ox 91 94 O2 Delivery Room Air Room Air 12/11/16 12/11/16 12/11/16 12/11/16 07:44 07:45 07:53 08:00 Pulse 48 48 Resp 18 B/P 136/79 136/79 Pulse Ox 94 O2 Delivery Nasal Cannula Nasal Cannula O2 Flow Rate 3.0 12/11/16 12/11/16 09:15 10:02 Pulse Ox 94 O2 Delivery Nasal Cannula Nasal Cannula O2 Flow Rate 3.0 3.0 Intake and Output 12/10/16 12/10/16 12/11/16 15:00 23:00 07:00 Intake Total 1440 ml 250 ml 400 ml Output Total 515 ml 40 ml 950 ml Balance 925 ml 210 ml -550 ml Graciela ESPINOZA MD Dec 11, 2016 11:06
[2016-12-11] MEDS: INSULIN DETEMIR 300 UNITS/3 ML INSULN.PEN. SQ SCH ×2 (11:50→20:39)
[2016-12-11] MEDS: INSULIN ASPART 300 UNITS/3 ML INSULN.PEN SQ SCH ×2 (11:51→16:51)
[2016-12-11 14:45] VITALS: BP 113/60
--- NOTE | 2016-12-11 16:01 | PDOC ---
PROGRESS NOTES Subjective Subjective Pt is having dyspnea again and complains of swelling. No chest pains, no palpitations. Objective Objective Vital Signs Date Time Temp Pulse Resp B/P Pulse Ox O2 Delivery O2 Flow Rate FiO2 12/11/16 14:46 67 113/60 12/11/16 14:45 97.8 16 93 Nasal Cannula 3.0 97.8 Intake and Output 12/11/16 07:00 Intake Total 2090 ml Output Total 1505 ml Balance 585 ml Intake Oral 2090 ml Output Urine Total 1505 ml Physical Exam Physical Exam Lungs: BS decreased, (+) rales Heart: no changes Ext: edema increasing in both legs and hands Assessment Assessment CHF worse after reducing the Lasix. I agree with the increase in Lasix. Problems Medical Problems: (1) Acute on chronic congestive heart failure Status: Acute (2) COPD exacerbation Status: Acute (3) Malignant hypertension Status: Acute (4) Pulmonary edema Status: Acute Comment Review of Relevant I have reviewed the following items jim (where applicable) has been applied. Labs Laboratory Tests Test 12/09/16 16:00 12/09/16 18:23 12/09/16 21:09 12/10/16 05:15 Nasal Screen MRSA (PCR) Negative (Negative) Glucose (Fingerstick) 410mg/dL (70-99) 473mg/dL (70-99) White Blood Count 7.2x10^3/uL (4.0-11.0) Red Blood Count 4.02x10^6/uL (3.50-5.40) Hemoglobin 11.7g/dL (12.0-15.5) Hematocrit 36.2% (36.0-47.0) Mean Corpuscular Volume 90fL (79-100) Mean Corpuscular Hemoglobin 29pg (25-35) Mean Corpuscular Hemoglobin Concent 32g/dL (31-37) Red Cell Distribution Width 13.4% (11.5-14.5) Platelet Count 279x10^3/uL (140-400) Neutrophils (%) (Auto) 86% (31-73) Lymphocytes (%) (Auto) 11% (24-48) Monocytes (%) (Auto) 2% (0-9) Eosinophils (%) (Auto) 0% (0-3) Basophils (%) (Auto) 0% (0-3) Neutrophils # (Auto) 6.2x10^3uL (1.8-7.7) Lymphocytes # (Auto) 0.8x10^3/uL (1.0-4.8) Monocytes # (Auto) 0.2x10^3/uL (0.0-1.1) Eosinophils # (Auto) 0.0x10^3/uL (0.0-0.7) Basophils # (Auto) 0.0x10^3/uL (0.0-0.2) Segmented Neutrophils % 82% (35-66) Band Neutrophils % 4% (0-9) Lymphocytes % 14% (24-48) Platelet Estimate Adequate (ADEQUATE) Sodium Level 141mmol/L (136-145) Potassium Level 3.9mmol/L (3.5-5.1) Chloride Level 96mmol/L (98-107) Carbon Dioxide Level 34mmol/L (21-32) Anion Gap 11 (6-14) Blood Urea Nitrogen 31mg/dL (7-20) Creatinine 1.4mg/dL (0.6-1.0) Estimated GFR (Cockcroft-Gault) 39.2 Glucose Level 547mg/dL (70-99) Calcium Level 9.0mg/dL (8.5-10.1) Creatine Kinase 76U/L (26-192) Creatine Kinase MB (Mass) 1.5ng/mL (0.0-3.6) Creatine Kinase MB Relative Index 2.0% (0-4) Test 12/10/16 08:59 12/10/16 10:03 12/10/16 11:05 12/10/16 12:09 Glucose (Fingerstick) 480mg/dL (70-99) 519mg/dL (70-99) 509mg/dL (70-99) 392mg/dL (70-99) Test 12/10/16 13:11 12/10/16 14:14 12/10/16 15:18 12/10/16 16:23 Glucose (Fingerstick) 424mg/dL (70-99) 359mg/dL (70-99) 348mg/dL (70-99) 315mg/dL (70-99) Test 12/10/16 17:32 12/10/16 18:34 12/10/16 19:41 12/10/16 20:54 Glucose (Fingerstick) 290mg/dL (70-99) 298mg/dL (70-99) 321mg/dL (70-99) 234mg/dL (70-99) Test 12/10/16 21:57 12/10/16 23:01 12/11/16 00:06 12/11/16 01:09 Glucose (Fingerstick) 202mg/dL (70-99) 180mg/dL (70-99) 177mg/dL (70-99) 136mg/dL (70-99) Test 12/11/16 02:13 12/11/16 03:15 12/11/16 04:19 12/11/16 05:17 Glucose (Fingerstick) 124mg/dL (70-99) 118mg/dL (70-99) 108mg/dL (70-99) 108mg/dL (70-99) Test 12/11/16 06:13 12/11/16 06:20 12/11/16 07:23 12/11/16 08:28 Glucose (Fingerstick) 111mg/dL (70-99) 108mg/dL (70-99) 133mg/dL (70-99) White Blood Count 13.9x10^3/uL (4.0-11.0) Red Blood Count 4.10x10^6/uL (3.50-5.40) Hemoglobin 11.8g/dL (12.0-15.5) Hematocrit 36.6% (36.0-47.0) Mean Corpuscular Volume 89fL (79-100) Mean Corpuscular Hemoglobin 29pg (25-35) Mean Corpuscular Hemoglobin Concent 32g/dL (31-37) Red Cell Distribution Width 13.2% (11.5-14.5) Platelet Count 290x10^3/uL (140-400) Sodium Level 146mmol/L (136-145) Potassium Level 3.6mmol/L (3.5-5.1) Chloride Level 102mmol/L (98-107) Carbon Dioxide Level 37mmol/L (21-32) Anion Gap 7 (6-14) Blood Urea Nitrogen 48mg/dL (7-20) Creatinine 1.6mg/dL (0.6-1.0) Estimated GFR (Cockcroft-Gault) 33.6 Glucose Level 118mg/dL (70-99) Calcium Level 9.2mg/dL (8.5-10.1) Test 12/11/16 09:31 12/11/16 11:44 Glucose (Fingerstick) 196mg/dL (70-99) 247mg/dL (70-99) Laboratory Tests Test 12/10/16 16:23 12/10/16 17:32 12/10/16 18:34 12/10/16 19:41 Glucose (Fingerstick) 315mg/dL (70-99) 290mg/dL (70-99) 298mg/dL (70-99) 321mg/dL (70-99) Test 12/10/16 20:54 12/10/16 21:57 12/10/16 23:01 12/11/16 00:06 Glucose (Fingerstick) 234mg/dL (70-99) 202mg/dL (70-99) 180mg/dL (70-99) 177mg/dL (70-99) Test 12/11/16 01:09 12/11/16 02:13 12/11/16 03:15 12/11/16 04:19 Glucose (Fingerstick) 136mg/dL (70-99) 124mg/dL (70-99) 118mg/dL (70-99) 108mg/dL (70-99) Test 12/11/16 05:17 12/11/16 06:13 12/11/16 06:20 12/11/16 07:23 Glucose (Fingerstick) 108mg/dL (70-99) 111mg/dL (70-99) 108mg/dL (70-99) White Blood Count 13.9x10^3/uL (4.0-11.0) Red Blood Count 4.10x10^6/uL (3.50-5.40) Hemoglobin 11.8g/dL (12.0-15.5) Hematocrit 36.6% (36.0-47.0) Mean Corpuscular Volume 89fL (79-100) Mean Corpuscular Hemoglobin 29pg (25-35) Mean Corpuscular Hemoglobin Concent 32g/dL (31-37) Red Cell Distribution Width 13.2% (11.5-14.5) Platelet Count 290x10^3/uL (140-400) Sodium Level 146mmol/L (136-145) Potassium Level 3.6mmol/L (3.5-5.1) Chloride Level 102mmol/L (98-107) Carbon Dioxide Level 37mmol/L (21-32) Anion Gap 7 (6-14) Blood Urea Nitrogen 48mg/dL (7-20) Creatinine 1.6mg/dL (0.6-1.0) Estimated GFR (Cockcroft-Gault) 33.6 Glucose Level 118mg/dL (70-99) Calcium Level 9.2mg/dL (8.5-10.1) Test 12/11/16 08:28 12/11/16 09:31 12/11/16 11:44 Glucose (Fingerstick) 133mg/dL (70-99) 196mg/dL (70-99) 247mg/dL (70-99) Medications Current Medications Albuterol/ Ipratropium (Duoneb) 6 ml 1X ONCE NEB Last administered on 09:56; Start 12/09/16 at 09:45; Stop 12/09/16 at 09:46; Status DC Methylprednisolone Sodium Succinate (Solu-Medrol 125mg Vial) 100 mg 1X ONCE IV Last administered on 12/09/16 10:32; Start 12/09/16 at 09:45; Stop 12/09/16 at 09:46; Status DC Ondansetron HCl 4 mg 4 mg PRN Q8HRS PRN IV NAUSEA/VOMITING; Start 12/09/16 at 11:45; Stop 12/10/16 at 11:44; Status DC Sodium Chloride (Iv Sodium Chloride 0.9% 1000ml Bag) 1,000 ml @ 0 mls/hr Q0M IV Last administered on 12/09/16 13:09; Start 12/09/16 at 12:00; Stop at 11:59; Status DC Acetaminophen (Tylenol) 650 mg PRN Q4HRS PRN PO FEVER; Start 12/09/16 at 11:45 ; Stop 12/10/16 at 11:44; Status DC Albuterol/ Ipratropium 3 ml 3 ml RTQID NEB Last administered on 12/10/16 11:49 ; Start 12/09/16 at 12:00; Stop 12/10/16 at 11:59; Status DC Nicardipine HCl/ Sodium Chloride (Cardene/Iv Sodium Chloride 0.9% 250ml) 270 ml @ 0 mls/hr CONT PRN IV SEE I/O RECORD Last administered on 12/09/16 19:30; Start 12/09/16 at 11:45 Furosemide (Lasix) 60 mg TID IVP Last administered on 12/10/16 08:44; Start at 14:00; Stop 12/10/16 at 10:58; Status DC Lidocaine HCl (Glydo (Lidocaine) Jelly) 1 eric 1X ONCE MM Last administered on 12/09/16 16:15; Start 12/09/16 at 16:15; Stop 12/09/16 at 16:16; Status DC Nystatin (Nystop) 1 eric BID TP Last administered on 12/10/16 21:00; Start at 17:00 Aspirin (Children'S Aspirin) 81 mg DAILY PO Last administered on 12/11/16 07: 46; Start 12/10/16 at 09:00 Atorvastatin Calcium (Lipitor) 20 mg DAILY PO ; Start 12/10/16 at 09:00; Stop at 10:50; Status DC Clonidine HCl (Catapres) 0.1 mg TID PO Last administered on 12/11/16 14:46; Start 12/09/16 at 21:00 Dabigatran (Pradaxa) 150 mg BID PO Last administered on 12/11/16 07:46; Start 12/09/16 at 21:00 Fenofibrate (Lofibra) 134 mg DAILY PO Last administered on 12/11/16 07:45; Start 12/10/16 at 09:00 Acetaminophen/ Hydrocodone Bitart (Lortab 10/325) 1 tab PRN Q6HRS PRN PO PAIN Last administered on 12/11/16 07:53; Start 12/09/16 at 17:30 Isosorbide Mononitrate (Imdur) 30 mg DAILY PO Last administered on 12/11/16 07 :44; Start 12/10/16 at 09:00 Levothyroxine Sodium (Synthroid) 50 mcg DAILY07 PO Last administered on 07:44; Start 12/10/16 at 07:00 Metolazone (Zaroxolyn) 2 mg QMWF PRN PO AD; Start 12/09/16 at 17:30 Duloxetine HCl (Cymbalta) 60 mg BID PO Last administered on 12/11/16 07:45; Start 12/10/16 at 21:00 Pantoprazole Sodium (Protonix) 40 mg DAILYAC PO Last administered on 12/11/16 07:46; Start 12/10/16 at 07:30 Insulin Detemir (Levemir) 40 units DAILYWBKFT SQ Last administered on 21:12; Start 12/09/16 at 21:00; Stop 12/10/16 at 07:11; Status DC Insulin Aspart (Novolog) 20 units TIDBFRMEAL SQ ; Start 12/10/16 at 07:30; Stop 12/10/16 at 07:30; Status DC Pregabalin (Lyrica) 150 mg BID PO Last administered on 12/11/16 07:45; Start 12/09/16 at 21:00 Tizanidine HCl (Zanaflex) 4 mg PRN Q8HRS PRN PO MUSCLE SPASMS Last administered on 12/10/16 22:19; Start 12/09/16 at 17:45 Budesonide (Pulmicort) 0.5 mg RTBID NEB Last administered on 12/11/16 09:13; Start 12/09/16 at 20:00 Insulin Aspart (Novolog) 0-9 UNITS TIDWMEALS SQ ; Start 12/10/16 at 08:00; Stop 12/10/16 at 08:00; Status DC Dextrose 12.5 gm PRN Q15MIN PRN IV SEE COMMENTS; Start 12/09/16 at 17:45; Stop 12/10/16 at 07:43; Status DC Insulin Aspart (Novolog) 20 units TIDBFRMEAL SQ Last administered on 12/09/16 19:27; Start 12/09/16 at 19:15; Stop 12/10/16 at 07:11; Status DC Potassium Chloride 20 meq 20 meq TID PO Last administered on 12/11/16 14:47; Start 12/09/16 at 21:00 Insulin Human Regular/Sodium Chloride (Novolin R Vial/ Iv Normal Saline 150ml) 151.5 ml @ 0 mls/hr CONT PRN IV SEE I/O RECORD Last administered on 12/10/16 15:51; Start 12/10/16 at 07:15; Stop 12/11/16 at 10:26; Status DC Dextrose 12.5 gm PRN Q15MIN PRN IV LOW BLOOD SUGAR; Start 12/10/16 at 07:15 Atorvastatin Calcium (Lipitor) 20 mg QHS PO Last administered on 12/10/16 20: 44; Start 12/10/16 at 21:00 Furosemide (Lasix) 60 mg TID IVP Last administered on 12/10/16 20:42; Start at 14:00; Stop 12/10/16 at 23:55; Status DC Furosemide (Lasix) 60 mg DAILY PO Last administered on 12/11/16 07:46; Start 12/11/16 at 09:00 Amlodipine Besylate (Norvasc) 5 mg BID PO Last administered on 12/11/16 07:45 ; Start 12/10/16 at 21:00 Albuterol/ Ipratropium (Duoneb) 3 ml RTQID NEB Last administered on 12/11/16 14:20; Start 12/10/16 at 20:00 Insulin Detemir (Levemir) 27 units Q12HR SQ Last administered on 12/11/16 11: 50; Start 12/11/16 at 10:30 Insulin Aspart (Novolog) 14 units TIDAC SQ Last administered on 12/11/16 11:51 ; Start 12/11/16 at 11:30 Furosemide (Lasix) 40 mg 1X ONCE IVP Last administered on 12/11/16 11:45; Start 12/11/16 at 10:30; Stop 12/11/16 at 10:31; Status DC Active Scripts Active Keflex (Cephalexin) 500 Mg Capsule 500 Mg PO QID 3 Days Nitrostat (Nitroglycerin) 0.4 Mg Tab.subl 0.4 Mg SL PRN Q5MIN PRN 30 Days Reported Lyrica (Pregabalin) 150 Mg Capsule 1 Cap PO BID Cymbalta (Duloxetine Hcl) 60 Mg Capsule.dr 1 Cap PO BID Metolazone 2.5 Mg Tablet 2 Mg PO QMWF PRN Lantus (Insulin Glargine,Hum.rec.anlog) 100 Unit/1 Ml Vial 40 Unit SQ DAILY07 Humalog (Insulin Lispro) 100 Unit/1 Ml Insuln.pen 20 Unit SQ TIDACHC Atorvastatin Calcium 20 Mg Tablet 1 Tab PO DAILY Nexium Capsule (Esomeprazole Magnesium) 40 Mg Capsule.dr 1 Cap PO DAILY Isosorbide Mononitrate Er (Isosorbide Mononitrate) 30 Mg Tab.er.24h 1 Tab PO DAILY Aspirin 81 Mg Tab.chew 1 Tab PO DAILY Pradaxa (Dabigatran Etexilate Mesylate) 150 Mg Capsule 1 Cap PO BID Levothyroxine Sodium 50 Mcg Tablet 1 Tab PO DAILY Fenofibrate (Fenofibrate,Micronized) 134 Mg Capsule 1 Cap PO DAILY Clonidine Hcl 0.1 Mg Tablet 0.1 Mg PO TID Zanaflex (Tizanidine Hcl) 4 Mg Capsule 4 Mg PO PRN Q8HRS PRN as needed for muscle cramps no more than every 8hrs Hydrocodone-Apap 10-325 (Hydrocodone Bit/Acetaminophen) 1 Each Tablet 1 Tab PO PRN Q6HRS PRN as needed for pain every 6 hours Vitals/I & O Vital Sign - Last 24 Hours 12/10/16 12/10/16 12/10/16 12/10/16 16:00 19:13 19:15 20:33 Temp 98.4 99.4 98.4 99.4 Pulse 64 58 Resp 13 20 B/P 100/46 105/62 Pulse Ox 99 98 O2 Delivery Nasal Cannula Nasal Cannula Nasal Cannula Nasal Cannula O2 Flow Rate 3.5 3.5 3.5 3.0 12/10/16 12/10/16 12/10/16 12/10/16 20:44 20:44 22:20 23:05 Temp 98.4 98.4 Pulse 58 58 63 Resp 18 18 B/P 105/62 105/62 125/54 Pulse Ox 90 90 O2 Delivery Room Air Room Air 12/10/16 12/11/16 12/11/16 12/11/16 23:30 03:33 07:00 07:44 Temp 97.5 96.4 97.5 96.4 Pulse 50 48 48 Resp 18 18 18 B/P 134/68 136/79 136/79 Pulse Ox 91 94 O2 Delivery Room Air Room Air 12/11/16 12/11/16 12/11/16 12/11/16 07:44 07:45 07:53 08:00 Pulse 48 48 Resp 18 B/P 136/79 136/79 Pulse Ox 94 O2 Delivery Nasal Cannula Nasal Cannula O2 Flow Rate 3.0 12/11/16 12/11/16 12/11/16 12/11/16 09:15 10:02 11:00 14:21 Temp 97.8 97.8 Pulse 53 Resp 18 B/P 108/53 Pulse Ox 94 91 O2 Delivery Nasal Cannula Nasal Cannula Room Air Room Air O2 Flow Rate 3.0 3.0 12/11/16 12/11/16 14:45 14:46 Temp 97.8 97.8 Pulse 67 67 Resp 16 B/P 113/60 113/60 Pulse Ox 93 O2 Delivery Nasal Cannula O2 Flow Rate 3.0 Intake and Output 12/10/16 12/10/16 12/11/16 15:00 23:00 07:00 Intake Total 1440 ml 250 ml 400 ml Output Total 515 ml 40 ml 950 ml Balance 925 ml 210 ml -550 ml JON WEAVER MD Dec 11, 2016 16:01
[2016-12-11 19:25] VITALS: BP 127/64
[2016-12-11] MEDS: ATORVASTATIN CALCIUM 20 MG TABLET PO SCH (20:32)
[2016-12-11] MEDS: tiZANidine 4 MG TABLET. PO PRN (20:34)
[2016-12-11 22:33] VITALS: BP 105/51
[2016-12-12 03:45] VITALS: BP 137/59
[2016-12-12 05:22] LABS: BASO # 0.1 x10^3/uL (0.0-0.2); BASO % 1 % (0-3); EOS % 4 % (0-3); HEMATOCRIT 37.2 % (36.0-47.0); HEMOGLOBIN 12.3 g/dL (12.0-15.5); LYMPH % 37 % (24-48); MEAN CORPUSCULAR HEMOGLOBIN 29 pg (25-35); MEAN CORPUSCULAR HGB CONC 33 g/dL (31-37); MEAN CORPUSCULAR VOLUME 88 fL (79-100); MONO % 9 % (0-9); NEUT % 49 % (31-73); PLATELET COUNT 309 x10^3/uL (140-400); RED BLOOD COUNT 4.24 x10^6/uL (3.50-5.40); RED CELL DISTRIBUTION WIDTH 13.4 % (11.5-14.5); WHITE BLOOD COUNT 10.8 x10^3/uL (4.0-11.0)
[2016-12-12 05:52] LABS: ALBUMIN 2.8 g/dL (3.4-5.0); ALBUMIN/GLOBULIN RATIO 0.8 (1.0-1.7); CALCIUM 8.8 mg/dL (8.5-10.1); CREATININE 1.6 mg/dL (0.6-1.0); GFR 33.6; POTASSIUM 4.3 mmol/L (3.5-5.1); TOTAL BILIRUBIN 0.3 mg/dL (0.2-1.0); TOTAL PROTEIN 6.5 g/dL (6.4-8.2)
[2016-12-12] MEDS: LEVOTHYROXINE 50 MCG TABLET PO SCH (06:47)
[2016-12-12] MEDS: PANTOPRAZOLE 40 MG TABLET. PO SCH (06:47)
[2016-12-12 07:00] VITALS: BP 148/58
[2016-12-12] MEDS: INSULIN ASPART 300 UNITS/3 ML INSULN.PEN SQ SCH ×3 (07:30→17:49)
[2016-12-12] MEDS: IPRATRPIUM/ALBUTEROL 0.5/2.5MG 3 ML NEBU. NEB SCH ×5 (08:07→19:18)
[2016-12-12] MEDS: BUDESONIDE 0.5 MG/2 ML NEBU NEB SCH ×2 (08:07→19:18)
[2016-12-12] MEDS: AMLODIPINE BESYLATE 5 MG TABLET PO SCH ×2 (08:57→21:59)
[2016-12-12] MEDS: DABIGATRAN ETEXILATE 150 MG CAPSULE. PO SCH ×2 (08:58→21:56)
[2016-12-12] MEDS: POTASSIUM CHLORIDE 20 MEQ TABLET.ER. PO SCH ×3 (08:58→21:57)
[2016-12-12] MEDS: CLONIDINE HCL 0.1 MG TABLET PO SCH ×3 (08:58→21:58)
[2016-12-12] MEDS: DULOXETINE HCL 30 MG CAPSULE.DR. PO SCH ×2 (08:58→21:57)
[2016-12-12] MEDS: PREGABALIN 75 MG CAPSULE PO SCH ×2 (08:58→21:56)
--- NOTE | 2016-12-12 08:58 | PDOC ---
SUBJECTIVE Subjective Breathing is doing better. She still has some swelling in the legs. She is still short of breath at times. Denies any chest pain or palpitations. OBJECTIVE Vital Signs Vital Signs Date Time Temp Pulse Resp B/P Pulse Ox O2 Delivery O2 Flow Rate FiO2 12/12/16 08:08 90 Room Air 12/12/16 07:00 98.2 74 18 148/58 93 Room Air 98.2 12/12/16 03:45 97.8 61 14 137/59 97 Nasal Cannula 3.0 97.8 12/11/16 23:42 Nasal Cannula 3.0 12/11/16 22:42 94 Room Air 3.0 12/11/16 22:33 98.0 81 16 105/51 91 Room Air 98.0 12/11/16 20:33 77 127/64 12/11/16 20:33 77 127/64 12/11/16 20:07 Room Air 12/11/16 20:07 Room Air 12/11/16 20:00 Room Air 12/11/16 19:25 98.2 77 16 127/64 94 Room Air 98.2 12/11/16 14:46 67 113/60 12/11/16 14:45 97.8 67 16 113/60 93 Nasal Cannula 3.0 97.8 12/11/16 14:21 Room Air 12/11/16 11:00 97.8 53 18 108/53 91 Room Air 97.8 12/11/16 10:02 94 12/11/16 09:15 Nasal Cannula 3.0 I & O Intake and Output 12/12/16 07:00 Intake Total 3550 ml Output Total 3400 ml Balance 150 ml Intake Oral 3550 ml Output Urine Total 3400 ml PHYSICAL EXAM Physical Exam General: No acute distress. Sitting in chair. Mental status: Alert and oriented. Chest: Clear to auscultation. Decreased air movement throughout CV: Normal rate. Regular rhythm. No murmur. Abdomen: Normal bowel sounds. Soft, obese. Not distended. No tenderness. No guarding. No rebound. Extremities: 1+ pitting edema in the bilateral lower extremities ASSESSMENT/PLAN Assessment/Plan 1. Acute on chronic congestive heart failure: She is off IV Lasix and was transitioned to oral Lasix. She seems to respond better to Bumex now. We'll change her back to Bumex. See how she does with that. 2. COPD: Continue nebulizer treatments. Continue nebulized steroids. 3. Uncontrolled diabetes mellitus type 2: Increase insulin and make adjustments as needed. Problems: COMMENT Lab Laboratory Tests Test 12/11/16 09:31 12/11/16 11:44 12/11/16 16:47 12/11/16 20:31 Glucose (Fingerstick) 196mg/dL (70-99) 247mg/dL (70-99) 289mg/dL (70-99) 371mg/dL (70-99) Test 12/12/16 04:05 12/12/16 07:04 White Blood Count 10.8x10^3/uL (4.0-11.0) Red Blood Count 4.24x10^6/uL (3.50-5.40) Hemoglobin 12.3g/dL (12.0-15.5) Hematocrit 37.2% (36.0-47.0) Mean Corpuscular Volume 88fL (79-100) Mean Corpuscular Hemoglobin 29pg (25-35) Mean Corpuscular Hemoglobin Concent 33g/dL (31-37) Red Cell Distribution Width 13.4% (11.5-14.5) Platelet Count 309x10^3/uL (140-400) Neutrophils (%) (Auto) 49% (31-73) Lymphocytes (%) (Auto) 37% (24-48) Monocytes (%) (Auto) 9% (0-9) Eosinophils (%) (Auto) 4% (0-3) Basophils (%) (Auto) 1% (0-3) Neutrophils # (Auto) 5.3x10^3uL (1.8-7.7) Lymphocytes # (Auto) 4.0x10^3/uL (1.0-4.8) Monocytes # (Auto) 1.0x10^3/uL (0.0-1.1) Eosinophils # (Auto) 0.4x10^3/uL (0.0-0.7) Basophils # (Auto) 0.1x10^3/uL (0.0-0.2) Sodium Level 141mmol/L (136-145) Potassium Level 4.3mmol/L (3.5-5.1) Chloride Level 100mmol/L (98-107) Carbon Dioxide Level 35mmol/L (21-32) Anion Gap 6 (6-14) Blood Urea Nitrogen 52mg/dL (7-20) Creatinine 1.6mg/dL (0.6-1.0) Estimated GFR (Cockcroft-Gault) 33.6 BUN/Creatinine Ratio 33 (6-20) Glucose Level 312mg/dL (70-99) Calcium Level 8.8mg/dL (8.5-10.1) Total Bilirubin 0.3mg/dL (0.2-1.0) Aspartate Amino Transf (AST/SGOT) 19U/L (15-37) Alanine Aminotransferase (ALT/SGPT) 19U/L (14-59) Alkaline Phosphatase 100U/L (46-116) Total Protein 6.5g/dL (6.4-8.2) Albumin 2.8g/dL (3.4-5.0) Albumin/Globulin Ratio 0.8 (1.0-1.7) Glucose (Fingerstick) 396mg/dL (70-99) JOSE BLAKELY MD Dec 12, 2016 08:58
[2016-12-12] MEDS: FENOFIBRATE,MICRONIZED 134 MG CAPSULE PO SCH (08:59)
[2016-12-12] MEDS: ISOSORBIDE MONONITRATE ER 30 MG TAB.ER.24H PO SCH (08:59)
[2016-12-12] MEDS: ASPIRIN 81 MG TAB.CHEW PO SCH (09:00)
[2016-12-12] MEDS: FUROSEMIDE 40 MG TABLET PO SCH (09:00)
[2016-12-12] MEDS: NYSTATIN TOPICAL POWDER 15GM BOTTLE. TP SCH ×2 (09:00→21:58)
[2016-12-12] MEDS: INSULIN DETEMIR 300 UNITS/3 ML INSULN.PEN. SQ SCH ×2 (09:00→22:19)
[2016-12-12] MEDS ORDERED: SIMETHICONE 80 MG TAB.CHEW PO PRN (09:15)
--- NOTE | 2016-12-12 09:56 | PDOC ---
PROGRESS NOTES Subjective Subjective Patient seen/examined while seated in bedside chair this morning. States she is feeling better than yesterday and much better than a few days ago. States she feels some tightness still with breathing but has noticed she has started to wheeze, which is reassuring to her. Denies any cardiac complaints. States swelling is starting to go down, reports decreased swelling in b/l legs and hands. Is taking Bumex 2mg now instead of Lasix. Objective Objective Vital Signs Date Time Temp Pulse Resp B/P Pulse Ox O2 Delivery O2 Flow Rate FiO2 12/12/16 08:59 74 148/58 12/12/16 08:08 90 Room Air 12/12/16 07:00 98.2 18 98.2 12/12/16 03:45 3.0 Intake and Output 12/12/16 07:00 Intake Total 3550 ml Output Total 3400 ml Balance 150 ml Intake Oral 3550 ml Output Urine Total 3400 ml Physical Exam Heart: Other (No changes since last cardiac exam) Extremities: Other (Edema improving b/l legs and hands) General: Alert, Cooperative, No acute distress Lungs: Other (Decreased breath sounds, rales improving, expiratory wheezes R>L) Assessment Assessment Some improvement in edema. Agree with change to Bumex. Definitely needs fluid restriction. Problems Medical Problems: (1) Acute on chronic congestive heart failure Status: Acute (2) COPD exacerbation Status: Acute (3) Malignant hypertension Status: Acute (4) Pulmonary edema Status: Acute Comment Review of Relevant I have reviewed the following items jim (where applicable) has been applied. Labs Laboratory Tests Test 12/10/16 10:03 12/10/16 11:05 12/10/16 12:09 12/10/16 13:11 Glucose (Fingerstick) 519mg/dL (70-99) 509mg/dL (70-99) 392mg/dL (70-99) 424mg/dL (70-99) Test 12/10/16 14:14 12/10/16 15:18 12/10/16 16:23 12/10/16 17:32 Glucose (Fingerstick) 359mg/dL (70-99) 348mg/dL (70-99) 315mg/dL (70-99) 290mg/dL (70-99) Test 12/10/16 18:34 12/10/16 19:41 12/10/16 20:54 12/10/16 21:57 Glucose (Fingerstick) 298mg/dL (70-99) 321mg/dL (70-99) 234mg/dL (70-99) 202mg/dL (70-99) Test 12/10/16 23:01 12/11/16 00:06 12/11/16 01:09 12/11/16 02:13 Glucose (Fingerstick) 180mg/dL (70-99) 177mg/dL (70-99) 136mg/dL (70-99) 124mg/dL (70-99) Test 12/11/16 03:15 12/11/16 04:19 12/11/16 05:17 12/11/16 06:13 Glucose (Fingerstick) 118mg/dL (70-99) 108mg/dL (70-99) 108mg/dL (70-99) 111mg/dL (70-99) Test 12/11/16 06:20 12/11/16 07:23 12/11/16 08:28 12/11/16 09:31 White Blood Count 13.9x10^3/uL (4.0-11.0) Red Blood Count 4.10x10^6/uL (3.50-5.40) Hemoglobin 11.8g/dL (12.0-15.5) Hematocrit 36.6% (36.0-47.0) Mean Corpuscular Volume 89fL (79-100) Mean Corpuscular Hemoglobin 29pg (25-35) Mean Corpuscular Hemoglobin Concent 32g/dL (31-37) Red Cell Distribution Width 13.2% (11.5-14.5) Platelet Count 290x10^3/uL (140-400) Sodium Level 146mmol/L (136-145) Potassium Level 3.6mmol/L (3.5-5.1) Chloride Level 102mmol/L (98-107) Carbon Dioxide Level 37mmol/L (21-32) Anion Gap 7 (6-14) Blood Urea Nitrogen 48mg/dL (7-20) Creatinine 1.6mg/dL (0.6-1.0) Estimated GFR (Cockcroft-Gault) 33.6 Glucose Level 118mg/dL (70-99) Calcium Level 9.2mg/dL (8.5-10.1) Glucose (Fingerstick) 108mg/dL (70-99) 133mg/dL (70-99) 196mg/dL (70-99) Test 12/11/16 11:44 12/11/16 16:47 12/11/16 20:31 12/12/16 04:05 Glucose (Fingerstick) 247mg/dL (70-99) 289mg/dL (70-99) 371mg/dL (70-99) White Blood Count 10.8x10^3/uL (4.0-11.0) Red Blood Count 4.24x10^6/uL (3.50-5.40) Hemoglobin 12.3g/dL (12.0-15.5) Hematocrit 37.2% (36.0-47.0) Mean Corpuscular Volume 88fL (79-100) Mean Corpuscular Hemoglobin 29pg (25-35) Mean Corpuscular Hemoglobin Concent 33g/dL (31-37) Red Cell Distribution Width 13.4% (11.5-14.5) Platelet Count 309x10^3/uL (140-400) Neutrophils (%) (Auto) 49% (31-73) Lymphocytes (%) (Auto) 37% (24-48) Monocytes (%) (Auto) 9% (0-9) Eosinophils (%) (Auto) 4% (0-3) Basophils (%) (Auto) 1% (0-3) Neutrophils # (Auto) 5.3x10^3uL (1.8-7.7) Lymphocytes # (Auto) 4.0x10^3/uL (1.0-4.8) Monocytes # (Auto) 1.0x10^3/uL (0.0-1.1) Eosinophils # (Auto) 0.4x10^3/uL (0.0-0.7) Basophils # (Auto) 0.1x10^3/uL (0.0-0.2) Sodium Level 141mmol/L (136-145) Potassium Level 4.3mmol/L (3.5-5.1) Chloride Level 100mmol/L (98-107) Carbon Dioxide Level 35mmol/L (21-32) Anion Gap 6 (6-14) Blood Urea Nitrogen 52mg/dL (7-20) Creatinine 1.6mg/dL (0.6-1.0) Estimated GFR (Cockcroft-Gault) 33.6 BUN/Creatinine Ratio 33 (6-20) Glucose Level 312mg/dL (70-99) Calcium Level 8.8mg/dL (8.5-10.1) Total Bilirubin 0.3mg/dL (0.2-1.0) Aspartate Amino Transf (AST/SGOT) 19U/L (15-37) Alanine Aminotransferase (ALT/SGPT) 19U/L (14-59) Alkaline Phosphatase 100U/L (46-116) Total Protein 6.5g/dL (6.4-8.2) Albumin 2.8g/dL (3.4-5.0) Albumin/Globulin Ratio 0.8 (1.0-1.7) Test 12/12/16 07:04 Glucose (Fingerstick) 396mg/dL (70-99) Laboratory Tests Test 12/11/16 11:44 12/11/16 16:47 12/11/16 20:31 12/12/16 04:05 Glucose (Fingerstick) 247mg/dL (70-99) 289mg/dL (70-99) 371mg/dL (70-99) White Blood Count 10.8x10^3/uL (4.0-11.0) Red Blood Count 4.24x10^6/uL (3.50-5.40) Hemoglobin 12.3g/dL (12.0-15.5) Hematocrit 37.2% (36.0-47.0) Mean Corpuscular Volume 88fL (79-100) Mean Corpuscular Hemoglobin 29pg (25-35) Mean Corpuscular Hemoglobin Concent 33g/dL (31-37) Red Cell Distribution Width 13.4% (11.5-14.5) Platelet Count 309x10^3/uL (140-400) Neutrophils (%) (Auto) 49% (31-73) Lymphocytes (%) (Auto) 37% (24-48) Monocytes (%) (Auto) 9% (0-9) Eosinophils (%) (Auto) 4% (0-3) Basophils (%) (Auto) 1% (0-3) Neutrophils # (Auto) 5.3x10^3uL (1.8-7.7) Lymphocytes # (Auto) 4.0x10^3/uL (1.0-4.8) Monocytes # (Auto) 1.0x10^3/uL (0.0-1.1) Eosinophils # (Auto) 0.4x10^3/uL (0.0-0.7) Basophils # (Auto) 0.1x10^3/uL (0.0-0.2) Sodium Level 141mmol/L (136-145) Potassium Level 4.3mmol/L (3.5-5.1) Chloride Level 100mmol/L (98-107) Carbon Dioxide Level 35mmol/L (21-32) Anion Gap 6 (6-14) Blood Urea Nitrogen 52mg/dL (7-20) Creatinine 1.6mg/dL (0.6-1.0) Estimated GFR (Cockcroft-Gault) 33.6 BUN/Creatinine Ratio 33 (6-20) Glucose Level 312mg/dL (70-99) Calcium Level 8.8mg/dL (8.5-10.1) Total Bilirubin 0.3mg/dL (0.2-1.0) Aspartate Amino Transf (AST/SGOT) 19U/L (15-37) Alanine Aminotransferase (ALT/SGPT) 19U/L (14-59) Alkaline Phosphatase 100U/L (46-116) Total Protein 6.5g/dL (6.4-8.2) Albumin 2.8g/dL (3.4-5.0) Albumin/Globulin Ratio 0.8 (1.0-1.7) Test 12/12/16 07:04 Glucose (Fingerstick) 396mg/dL (70-99) Medications Current Medications Albuterol/ Ipratropium (Duoneb) 6 ml 1X ONCE NEB Last administered on 09:56; Start 12/09/16 at 09:45; Stop 12/09/16 at 09:46; Status DC Methylprednisolone Sodium Succinate (Solu-Medrol 125mg Vial) 100 mg 1X ONCE IV Last administered on 12/09/16 10:32; Start 12/09/16 at 09:45; Stop 12/09/16 at 09:46; Status DC Ondansetron HCl 4 mg 4 mg PRN Q8HRS PRN IV NAUSEA/VOMITING; Start 12/09/16 at 11:45; Stop 12/10/16 at 11:44; Status DC Sodium Chloride (Iv Sodium Chloride 0.9% 1000ml Bag) 1,000 ml @ 0 mls/hr Q0M IV Last administered on 12/09/16 13:09; Start 12/09/16 at 12:00; Stop at 11:59; Status DC Acetaminophen (Tylenol) 650 mg PRN Q4HRS PRN PO FEVER; Start 12/09/16 at 11:45 ; Stop 12/10/16 at 11:44; Status DC Albuterol/ Ipratropium 3 ml 3 ml RTQID NEB Last administered on 12/10/16 11:49 ; Start 12/09/16 at 12:00; Stop 12/10/16 at 11:59; Status DC Nicardipine HCl/ Sodium Chloride (Cardene/Iv Sodium Chloride 0.9% 250ml) 270 ml @ 0 mls/hr CONT PRN IV SEE I/O RECORD Last administered on 12/09/16 19:30; Start 12/09/16 at 11:45 Furosemide (Lasix) 60 mg TID IVP Last administered on 12/10/16 08:44; Start at 14:00; Stop 12/10/16 at 10:58; Status DC Lidocaine HCl (Glydo (Lidocaine) Jelly) 1 eric 1X ONCE MM Last administered on 12/09/16 16:15; Start 12/09/16 at 16:15; Stop 12/09/16 at 16:16; Status DC Nystatin (Nystop) 1 eric BID TP Last administered on 12/12/16 09:00; Start at 17:00 Aspirin (Children'S Aspirin) 81 mg DAILY PO Last administered on 12/12/16 09: 00; Start 12/10/16 at 09:00 Atorvastatin Calcium (Lipitor) 20 mg DAILY PO ; Start 12/10/16 at 09:00; Stop at 10:50; Status DC Clonidine HCl (Catapres) 0.1 mg TID PO Last administered on 12/12/16 08:58; Start 12/09/16 at 21:00 Dabigatran (Pradaxa) 150 mg BID PO Last administered on 12/12/16 08:58; Start 12/09/16 at 21:00 Fenofibrate (Lofibra) 134 mg DAILY PO Last administered on 12/12/16 08:59; Start 12/10/16 at 09:00 Acetaminophen/ Hydrocodone Bitart (Lortab 10/325) 1 tab PRN Q6HRS PRN PO PAIN Last administered on 12/11/16 22:42; Start 12/09/16 at 17:30 Isosorbide Mononitrate (Imdur) 30 mg DAILY PO Last administered on 12/12/16 08 :59; Start 12/10/16 at 09:00 Levothyroxine Sodium (Synthroid) 50 mcg DAILY07 PO Last administered on 06:47; Start 12/10/16 at 07:00 Metolazone (Zaroxolyn) 2 mg QMWF PRN PO AD Last administered on 12/12/16 08:59 ; Start 12/09/16 at 17:30 Duloxetine HCl (Cymbalta) 60 mg BID PO Last administered on 12/12/16 08:58; Start 12/10/16 at 21:00 Pantoprazole Sodium (Protonix) 40 mg DAILYAC PO Last administered on 12/12/16 06:47; Start 12/10/16 at 07:30 Insulin Detemir (Levemir) 40 units DAILYWBKFT SQ Last administered on 21:12; Start 12/09/16 at 21:00; Stop 12/10/16 at 07:11; Status DC Insulin Aspart (Novolog) 20 units TIDBFRMEAL SQ ; Start 12/10/16 at 07:30; Stop 12/10/16 at 07:30; Status DC Pregabalin (Lyrica) 150 mg BID PO Last administered on 12/12/16 08:58; Start 12/09/16 at 21:00 Tizanidine HCl (Zanaflex) 4 mg PRN Q8HRS PRN PO MUSCLE SPASMS Last administered on 12/11/16 20:34; Start 12/09/16 at 17:45 Budesonide (Pulmicort) 0.5 mg RTBID NEB Last administered on 12/12/16 08:07; Start 12/09/16 at 20:00 Insulin Aspart (Novolog) 0-9 UNITS TIDWMEALS SQ ; Start 12/10/16 at 08:00; Stop 12/10/16 at 08:00; Status DC Dextrose 12.5 gm PRN Q15MIN PRN IV SEE COMMENTS; Start 12/09/16 at 17:45; Stop 12/10/16 at 07:43; Status DC Insulin Aspart (Novolog) 20 units TIDBFRMEAL SQ Last administered on 12/09/16 19:27; Start 12/09/16 at 19:15; Stop 12/10/16 at 07:11; Status DC Potassium Chloride 20 meq 20 meq TID PO Last administered on 12/12/16 08:58; Start 12/09/16 at 21:00 Insulin Human Regular/Sodium Chloride (Novolin R Vial/ Iv Normal Saline 150ml) 151.5 ml @ 0 mls/hr CONT PRN IV SEE I/O RECORD Last administered on 12/10/16 15:51; Start 12/10/16 at 07:15; Stop 12/11/16 at 10:26; Status DC Dextrose 12.5 gm PRN Q15MIN PRN IV LOW BLOOD SUGAR; Start 12/10/16 at 07:15 Atorvastatin Calcium (Lipitor) 20 mg QHS PO Last administered on 12/11/16 20: 32; Start 12/10/16 at 21:00 Furosemide (Lasix) 60 mg TID IVP Last administered on 12/10/16 20:42; Start at 14:00; Stop 12/10/16 at 23:55; Status DC Furosemide (Lasix) 60 mg DAILY PO Last administered on 12/11/16 07:46; Start 12/11/16 at 09:00; Stop 12/12/16 at 09:08; Status DC Amlodipine Besylate (Norvasc) 5 mg BID PO Last administered on 12/12/16 08:57 ; Start 12/10/16 at 21:00 Albuterol/ Ipratropium (Duoneb) 3 ml RTQID NEB Last administered on 12/12/16 08:07; Start 12/10/16 at 20:00 Insulin Detemir (Levemir) 27 units Q12HR SQ Last administered on 12/12/16 09: 00; Start 12/11/16 at 10:30; Stop 12/12/16 at 09:08; Status DC Insulin Aspart (Novolog) 14 units TIDAC SQ Last administered on 12/12/16 07:30 ; Start 12/11/16 at 11:30; Stop 12/12/16 at 09:08; Status DC Furosemide (Lasix) 40 mg 1X ONCE IVP Last administered on 12/11/16 11:45; Start 12/11/16 at 10:30; Stop 12/11/16 at 10:31; Status DC Insulin Aspart (Novolog) 17 units TIDAC SQ ; Start 12/12/16 at 11:30 Insulin Detemir (Levemir) 30 units Q12HR SQ ; Start 12/12/16 at 21:00 Bumetanide (Bumex) 2 mg DAILY PO ; Start 12/12/16 at 09:15 Simethicone (Gas-X) 80 mg PRN AFTMEALHC PRN PO GAS / BLOATING; Start 12/12/16 at 09:15 Active Scripts Active Keflex (Cephalexin) 500 Mg Capsule 500 Mg PO QID 3 Days Nitrostat (Nitroglycerin) 0.4 Mg Tab.subl 0.4 Mg SL PRN Q5MIN PRN 30 Days Reported Lyrica (Pregabalin) 150 Mg Capsule 1 Cap PO BID Cymbalta (Duloxetine Hcl) 60 Mg Capsule. 1 Cap PO BID Metolazone 2.5 Mg Tablet 2 Mg PO QMWF PRN Lantus (Insulin Glargine,Hum.rec.anlog) 100 Unit/1 Ml Vial 40 Unit SQ DAILY07 Humalog (Insulin Lispro) 100 Unit/1 Ml Insuln.pen 20 Unit SQ TIDACHC Atorvastatin Calcium 20 Mg Tablet 1 Tab PO DAILY Nexium Capsule (Esomeprazole Magnesium) 40 Mg Capsule.dr 1 Cap PO DAILY Isosorbide Mononitrate Er (Isosorbide Mononitrate) 30 Mg Tab.er.24h 1 Tab PO DAILY Aspirin 81 Mg Tab.chew 1 Tab PO DAILY Pradaxa (Dabigatran Etexilate Mesylate) 150 Mg Capsule 1 Cap PO BID Levothyroxine Sodium 50 Mcg Tablet 1 Tab PO DAILY Fenofibrate (Fenofibrate,Micronized) 134 Mg Capsule 1 Cap PO DAILY Clonidine Hcl 0.1 Mg Tablet 0.1 Mg PO TID Zanaflex (Tizanidine Hcl) 4 Mg Capsule 4 Mg PO PRN Q8HRS PRN as needed for muscle cramps no more than every 8hrs Hydrocodone-Apap 10-325 (Hydrocodone Bit/Acetaminophen) 1 Each Tablet 1 Tab PO PRN Q6HRS PRN as needed for pain every 6 hours Vitals/I & O Vital Sign - Last 24 Hours 12/11/16 12/11/16 12/11/16 12/11/16 10:02 11:00 14:21 14:45 Temp 97.8 97.8 97.8 97.8 Pulse 53 67 Resp 18 16 B/P 108/53 113/60 Pulse Ox 94 91 93 O2 Delivery Room Air Room Air Nasal Cannula O2 Flow Rate 3.0 12/11/16 12/11/16 12/11/16 12/11/16 14:46 19:25 20:00 20:07 Temp 98.2 98.2 Pulse 67 77 Resp 16 B/P 113/60 127/64 Pulse Ox 94 O2 Delivery Room Air Room Air Room Air 12/11/16 12/11/16 12/11/16 12/11/16 20:07 20:33 20:33 22:33 Temp 98.0 98.0 Pulse 77 77 81 Resp 16 B/P 127/64 127/64 105/51 Pulse Ox 91 O2 Delivery Room Air Room Air 12/11/16 12/11/16 12/12/16 12/12/16 22:42 23:42 03:45 07:00 Temp 97.8 98.2 97.8 98.2 Pulse 61 74 Resp 14 18 B/P 137/59 148/58 Pulse Ox 94 97 93 O2 Delivery Room Air Nasal Cannula Nasal Cannula Room Air O2 Flow Rate 3.0 3.0 3.0 12/12/16 12/12/16 12/12/16 12/12/16 08:08 08:57 08:58 08:59 Pulse 74 74 74 B/P 148/58 148/58 148/58 Pulse Ox 90 O2 Delivery Room Air Intake and Output 312/11/16 12/12/16 15:00 23:00 07:00 Intake Total 650 ml 1700 ml 1200 ml Output Total 1700 ml 1700 ml Balance 650 ml 0 ml -500 ml JON WEAVER MD Dec 12, 2016 09:56
[2016-12-12 10:17] VITALS: BP 104/53
[2016-12-12] MEDS: BUMETANIDE 1 MG TABLET PO SCH (11:09)
[2016-12-12 15:27] VITALS: BP 108/51
[2016-12-12] MEDS: ANTI-COAG MONITOR BY PHARMACY. MC PRN (15:48)
[2016-12-12 19:24] VITALS: BP 127/65
[2016-12-12] MEDS: ATORVASTATIN CALCIUM 20 MG TABLET PO SCH (21:57)
[2016-12-12] MEDS: tiZANidine 4 MG TABLET. PO PRN (22:06)
[2016-12-12] MEDS: HYDROCODONE/APAP 10/325 TABLET. PO PRN (22:14)
[2016-12-12 22:43] VITALS: BP 141/70
[2016-12-13] VITALS (7 sets, daily range): BP systolic 90–144; BP diastolic 48–66
[2016-12-13] MEDS: HYDROCODONE/APAP 10/325 TABLET. PO PRN ×2 (04:39→21:02)
[2016-12-13 05:33] LABS: CALCIUM 9.1 mg/dL (8.5-10.1); CREATININE 1.3 mg/dL (0.6-1.0); GFR 42.7; POTASSIUM 4.5 mmol/L (3.5-5.1)
[2016-12-13] MEDS: LEVOTHYROXINE 50 MCG TABLET PO SCH (06:35)
[2016-12-13] MEDS: PANTOPRAZOLE 40 MG TABLET. PO SCH (06:35)
[2016-12-13] MEDS: INSULIN ASPART 300 UNITS/3 ML INSULN.PEN SQ SCH ×3 (07:30→16:39)
[2016-12-13] MEDS: NYSTATIN TOPICAL POWDER 15GM BOTTLE. TP SCH ×3 (09:00→16:41)
[2016-12-13] MEDS: IPRATRPIUM/ALBUTEROL 0.5/2.5MG 3 ML NEBU. NEB SCH ×4 (09:01→19:49)
[2016-12-13] MEDS: BUDESONIDE 0.5 MG/2 ML NEBU NEB SCH ×2 (09:01→19:49)
[2016-12-13] MEDS: BUMETANIDE 1 MG TABLET PO SCH (09:12)
[2016-12-13] MEDS: POTASSIUM CHLORIDE 20 MEQ TABLET.ER. PO SCH ×3 (09:13→21:02)
[2016-12-13] MEDS: ISOSORBIDE MONONITRATE ER 30 MG TAB.ER.24H PO SCH (09:13)
[2016-12-13] MEDS: AMLODIPINE BESYLATE 5 MG TABLET PO SCH ×2 (09:13→21:01)
[2016-12-13] MEDS: PREGABALIN 75 MG CAPSULE PO SCH ×2 (09:13→21:00)
[2016-12-13] MEDS: FENOFIBRATE,MICRONIZED 134 MG CAPSULE PO SCH (09:14)
[2016-12-13] MEDS: DULOXETINE HCL 30 MG CAPSULE.DR. PO SCH ×2 (09:14→21:04)
[2016-12-13] MEDS: DABIGATRAN ETEXILATE 150 MG CAPSULE. PO SCH ×2 (09:14→21:02)
[2016-12-13] MEDS: ASPIRIN 81 MG TAB.CHEW PO SCH (09:14)
[2016-12-13] MEDS: CLONIDINE HCL 0.1 MG TABLET PO SCH ×3 (09:14→21:02)
[2016-12-13] MEDS: INSULIN DETEMIR 300 UNITS/3 ML INSULN.PEN. SQ SCH ×2 (09:25→21:10)
--- NOTE | 2016-12-13 11:39 | PDOC ---
PROGRESS NOTES Subjective Subjective Patient is up in the chair. She states she is feeling much better. Denies cardiac chest pain and SOB. Only some chest pain on deep inspiration. Objective Objective Vital Signs Date Time Temp Pulse Resp B/P Pulse Ox O2 Delivery O2 Flow Rate FiO2 12/13/16 09:14 60 144/58 12/13/16 09:01 Room Air 12/13/16 07:08 98.2 16 97 3.5 98.2 Intake and Output 12/13/16 07:00 Intake Total 420 ml Output Total 4250 ml Balance -3830 ml Intake Oral 420 ml Output Urine Total 4250 ml # Bowel Movements 1 Physical Exam Physical Exam Heart: Other (No changes since last cardiac exam) Extremities: Other (Edema improving b/l legs and hands) General: Alert, Cooperative, No acute distress Lungs: Other (Decreased breath sounds, rales improving, expiratory wheezes R>L) Assessment Assessment Pt is doing a little better The edema has decreased some. Continue present meds Problems Medical Problems: (1) Acute on chronic congestive heart failure Status: Acute (2) COPD exacerbation Status: Acute (3) Malignant hypertension Status: Acute (4) Pulmonary edema Status: Acute Comment Review of Relevant I have reviewed the following items jim (where applicable) has been applied. Labs Laboratory Tests Test 12/11/16 11:44 12/11/16 16:47 12/11/16 20:31 12/12/16 04:05 Glucose (Fingerstick) 247mg/dL (70-99) 289mg/dL (70-99) 371mg/dL (70-99) White Blood Count 10.8x10^3/uL (4.0-11.0) Red Blood Count 4.24x10^6/uL (3.50-5.40) Hemoglobin 12.3g/dL (12.0-15.5) Hematocrit 37.2% (36.0-47.0) Mean Corpuscular Volume 88fL (79-100) Mean Corpuscular Hemoglobin 29pg (25-35) Mean Corpuscular Hemoglobin Concent 33g/dL (31-37) Red Cell Distribution Width 13.4% (11.5-14.5) Platelet Count 309x10^3/uL (140-400) Neutrophils (%) (Auto) 49% (31-73) Lymphocytes (%) (Auto) 37% (24-48) Monocytes (%) (Auto) 9% (0-9) Eosinophils (%) (Auto) 4% (0-3) Basophils (%) (Auto) 1% (0-3) Neutrophils # (Auto) 5.3x10^3uL (1.8-7.7) Lymphocytes # (Auto) 4.0x10^3/uL (1.0-4.8) Monocytes # (Auto) 1.0x10^3/uL (0.0-1.1) Eosinophils # (Auto) 0.4x10^3/uL (0.0-0.7) Basophils # (Auto) 0.1x10^3/uL (0.0-0.2) Sodium Level 141mmol/L (136-145) Potassium Level 4.3mmol/L (3.5-5.1) Chloride Level 100mmol/L (98-107) Carbon Dioxide Level 35mmol/L (21-32) Anion Gap 6 (6-14) Blood Urea Nitrogen 52mg/dL (7-20) Creatinine 1.6mg/dL (0.6-1.0) Estimated GFR (Cockcroft-Gault) 33.6 BUN/Creatinine Ratio 33 (6-20) Glucose Level 312mg/dL (70-99) Calcium Level 8.8mg/dL (8.5-10.1) Total Bilirubin 0.3mg/dL (0.2-1.0) Aspartate Amino Transf (AST/SGOT) 19U/L (15-37) Alanine Aminotransferase (ALT/SGPT) 19U/L (14-59) Alkaline Phosphatase 100U/L (46-116) Total Protein 6.5g/dL (6.4-8.2) Albumin 2.8g/dL (3.4-5.0) Albumin/Globulin Ratio 0.8 (1.0-1.7) Test 12/12/16 07:04 12/12/16 11:08 12/12/16 16:39 12/12/16 21:11 Glucose (Fingerstick) 396mg/dL (70-99) 359mg/dL (70-99) 192mg/dL (70-99) 251mg/dL (70-99) Test 12/13/16 04:18 12/13/16 07:41 Sodium Level 142mmol/L (136-145) Potassium Level 4.5mmol/L (3.5-5.1) Chloride Level 100mmol/L (98-107) Carbon Dioxide Level 37mmol/L (21-32) Anion Gap 5 (6-14) Blood Urea Nitrogen 49mg/dL (7-20) Creatinine 1.3mg/dL (0.6-1.0) Estimated GFR (Cockcroft-Gault) 42.7 Glucose Level 268mg/dL (70-99) Calcium Level 9.1mg/dL (8.5-10.1) Glucose (Fingerstick) 215mg/dL (70-99) Laboratory Tests Test 12/12/16 16:39 12/12/16 21:11 12/13/16 04:18 12/13/16 07:41 Glucose (Fingerstick) 192mg/dL (70-99) 251mg/dL (70-99) 215mg/dL (70-99) Sodium Level 142mmol/L (136-145) Potassium Level 4.5mmol/L (3.5-5.1) Chloride Level 100mmol/L (98-107) Carbon Dioxide Level 37mmol/L (21-32) Anion Gap 5 (6-14) Blood Urea Nitrogen 49mg/dL (7-20) Creatinine 1.3mg/dL (0.6-1.0) Estimated GFR (Cockcroft-Gault) 42.7 Glucose Level 268mg/dL (70-99) Calcium Level 9.1mg/dL (8.5-10.1) Medications Current Medications Albuterol/ Ipratropium (Duoneb) 6 ml 1X ONCE NEB Last administered on 09:56; Start 12/09/16 at 09:45; Stop 12/09/16 at 09:46; Status DC Methylprednisolone Sodium Succinate (Solu-Medrol 125mg Vial) 100 mg 1X ONCE IV Last administered on 12/09/16 10:32; Start 12/09/16 at 09:45; Stop 12/09/16 at 09:46; Status DC Ondansetron HCl 4 mg 4 mg PRN Q8HRS PRN IV NAUSEA/VOMITING; Start 12/09/16 at 11:45; Stop 12/10/16 at 11:44; Status DC Sodium Chloride (Iv Sodium Chloride 0.9% 1000ml Bag) 1,000 ml @ 0 mls/hr Q0M IV Last administered on 12/09/16 13:09; Start 12/09/16 at 12:00; Stop at 11:59; Status DC Acetaminophen (Tylenol) 650 mg PRN Q4HRS PRN PO FEVER; Start 12/09/16 at 11:45 ; Stop 12/10/16 at 11:44; Status DC Albuterol/ Ipratropium 3 ml 3 ml RTQID NEB Last administered on 12/10/16 11:49 ; Start 12/09/16 at 12:00; Stop 12/10/16 at 11:59; Status DC Nicardipine HCl/ Sodium Chloride (Cardene/Iv Sodium Chloride 0.9% 250ml) 270 ml @ 0 mls/hr CONT PRN IV SEE I/O RECORD Last administered on 12/09/16 19:30; Start 12/09/16 at 11:45 Furosemide (Lasix) 60 mg TID IVP Last administered on 12/10/16 08:44; Start at 14:00; Stop 12/10/16 at 10:58; Status DC Lidocaine HCl (Glydo (Lidocaine) Jelly) 1 eric 1X ONCE MM Last administered on 12/09/16 16:15; Start 12/09/16 at 16:15; Stop 12/09/16 at 16:16; Status DC Nystatin (Nystop) 1 eric BID TP Last administered on 12/12/16 21:58; Start at 17:00 Aspirin (Children'S Aspirin) 81 mg DAILY PO Last administered on 12/13/16 09: 14; Start 12/10/16 at 09:00 Atorvastatin Calcium (Lipitor) 20 mg DAILY PO ; Start 12/10/16 at 09:00; Stop at 10:50; Status DC Clonidine HCl (Catapres) 0.1 mg TID PO Last administered on 12/13/16 09:14; Start 12/09/16 at 21:00 Dabigatran (Pradaxa) 150 mg BID PO Last administered on 12/13/16 09:14; Start 12/09/16 at 21:00 Fenofibrate (Lofibra) 134 mg DAILY PO Last administered on 12/13/16 09:14; Start 12/10/16 at 09:00 Acetaminophen/ Hydrocodone Bitart (Lortab 10/325) 1 tab PRN Q6HRS PRN PO PAIN Last administered on 12/13/16 04:39; Start 12/09/16 at 17:30 Isosorbide Mononitrate (Imdur) 30 mg DAILY PO Last administered on 12/13/16 09 :13; Start 12/10/16 at 09:00 Levothyroxine Sodium (Synthroid) 50 mcg DAILY07 PO Last administered on 06:35; Start 12/10/16 at 07:00 Metolazone (Zaroxolyn) 2 mg QMWF PRN PO AD Last administered on 12/12/16 08:59 ; Start 12/09/16 at 17:30 Duloxetine HCl (Cymbalta) 60 mg BID PO Last administered on 12/13/16 09:14; Start 12/10/16 at 21:00 Pantoprazole Sodium (Protonix) 40 mg DAILYAC PO Last administered on 12/13/16 06:35; Start 12/10/16 at 07:30 Insulin Detemir (Levemir) 40 units DAILYWBKFT SQ Last administered on 21:12; Start 12/09/16 at 21:00; Stop 12/10/16 at 07:11; Status DC Insulin Aspart (Novolog) 20 units TIDBFRMEAL SQ ; Start 12/10/16 at 07:30; Stop 12/10/16 at 07:30; Status DC Pregabalin (Lyrica) 150 mg BID PO Last administered on 12/13/16 09:13; Start 12/09/16 at 21:00 Tizanidine HCl (Zanaflex) 4 mg PRN Q8HRS PRN PO MUSCLE SPASMS Last administered on 12/12/16 22:06; Start 12/09/16 at 17:45 Budesonide (Pulmicort) 0.5 mg RTBID NEB Last administered on 12/13/16 09:01; Start 12/09/16 at 20:00 Insulin Aspart (Novolog) 0-9 UNITS TIDWMEALS SQ ; Start 12/10/16 at 08:00; Stop 12/10/16 at 08:00; Status DC Dextrose 12.5 gm PRN Q15MIN PRN IV SEE COMMENTS; Start 12/09/16 at 17:45; Stop 12/10/16 at 07:43; Status DC Insulin Aspart (Novolog) 20 units TIDBFRMEAL SQ Last administered on 12/09/16 19:27; Start 12/09/16 at 19:15; Stop 12/10/16 at 07:11; Status DC Potassium Chloride 20 meq 20 meq TID PO Last administered on 12/13/16 09:13; Start 12/09/16 at 21:00 Insulin Human Regular/Sodium Chloride (Novolin R Vial/ Iv Normal Saline 150ml) 151.5 ml @ 0 mls/hr CONT PRN IV SEE I/O RECORD Last administered on 12/10/16 15:51; Start 12/10/16 at 07:15; Stop 12/11/16 at 10:26; Status DC Dextrose 12.5 gm PRN Q15MIN PRN IV LOW BLOOD SUGAR; Start 12/10/16 at 07:15 Atorvastatin Calcium (Lipitor) 20 mg QHS PO Last administered on 12/12/16 21: 57; Start 12/10/16 at 21:00 Furosemide (Lasix) 60 mg TID IVP Last administered on 12/10/16 20:42; Start at 14:00; Stop 12/10/16 at 23:55; Status DC Furosemide (Lasix) 60 mg DAILY PO Last administered on 12/11/16 07:46; Start 12/11/16 at 09:00; Stop 12/12/16 at 09:08; Status DC Amlodipine Besylate (Norvasc) 5 mg BID PO Last administered on 12/13/16 09:13 ; Start 12/10/16 at 21:00 Albuterol/ Ipratropium (Duoneb) 3 ml RTQID NEB Last administered on 12/13/16 09:01; Start 12/10/16 at 20:00 Insulin Detemir (Levemir) 27 units Q12HR SQ Last administered on 12/12/16 09: 00; Start 12/11/16 at 10:30; Stop 12/12/16 at 09:08; Status DC Insulin Aspart (Novolog) 14 units TIDAC SQ Last administered on 12/12/16 07:30 ; Start 12/11/16 at 11:30; Stop 12/12/16 at 09:08; Status DC Furosemide (Lasix) 40 mg 1X ONCE IVP Last administered on 12/11/16 11:45; Start 12/11/16 at 10:30; Stop 12/11/16 at 10:31; Status DC Insulin Aspart (Novolog) 17 units TIDAC SQ Last administered on 12/13/16 07:30 ; Start 12/12/16 at 11:30 Insulin Detemir (Levemir) 30 units Q12HR SQ Last administered on 12/13/16 09: 25; Start 12/12/16 at 21:00 Bumetanide (Bumex) 2 mg DAILY PO Last administered on 12/13/16 09:12; Start at 09:15 Simethicone (Gas-X) 80 mg PRN AFTMEALHC PRN PO GAS / BLOATING; Start 12/12/16 at 09:15 Info (Anti-Coagulation Monitoring By Pharmacy) 1 each PRN DAILY PRN MC SEE COMMENTS Last administered on 12/12/16 15:48; Start 12/12/16 at 10:15 Active Scripts Active Keflex (Cephalexin) 500 Mg Capsule 500 Mg PO QID 3 Days Nitrostat (Nitroglycerin) 0.4 Mg Tab.subl 0.4 Mg SL PRN Q5MIN PRN 30 Days Reported Lyrica (Pregabalin) 150 Mg Capsule 1 Cap PO BID Cymbalta (Duloxetine Hcl) 60 Mg Capsule. 1 Cap PO BID Metolazone 2.5 Mg Tablet 2 Mg PO QMWF PRN Lantus (Insulin Glargine,Hum.rec.anlog) 100 Unit/1 Ml Vial 40 Unit SQ DAILY07 Humalog (Insulin Lispro) 100 Unit/1 Ml Insuln.pen 20 Unit SQ TIDACHC Atorvastatin Calcium 20 Mg Tablet 1 Tab PO DAILY Nexium Capsule (Esomeprazole Magnesium) 40 Mg Capsule. 1 Cap PO DAILY Isosorbide Mononitrate Er (Isosorbide Mononitrate) 30 Mg Tab.er.24h 1 Tab PO DAILY Aspirin 81 Mg Tab.chew 1 Tab PO DAILY Pradaxa (Dabigatran Etexilate Mesylate) 150 Mg Capsule 1 Cap PO BID Levothyroxine Sodium 50 Mcg Tablet 1 Tab PO DAILY Fenofibrate (Fenofibrate,Micronized) 134 Mg Capsule 1 Cap PO DAILY Clonidine Hcl 0.1 Mg Tablet 0.1 Mg PO TID Zanaflex (Tizanidine Hcl) 4 Mg Capsule 4 Mg PO PRN Q8HRS PRN as needed for muscle cramps no more than every 8hrs Hydrocodone-Apap 10-325 (Hydrocodone Bit/Acetaminophen) 1 Each Tablet 1 Tab PO PRN Q6HRS PRN as needed for pain every 6 hours Vitals/I & O Vital Sign - Last 24 Hours 12/12/16 12/12/16 12/12/16 12/12/16 13:23 14:00 15:27 15:54 Temp 97.6 97.6 Pulse 69 69 Resp 18 B/P 108/51 108/51 Pulse Ox 96 96 O2 Delivery Room Air Room Air Room Air 12/12/16 12/12/16 12/12/16 12/12/16 19:18 19:24 20:00 21:58 Temp 98.2 98.2 Pulse 72 72 Resp 16 B/P 127/65 127/65 Pulse Ox 96 95 O2 Delivery Room Air Room Air Room Air 12/12/16 12/12/16 12/12/16 12/13/16 21:59 22:14 22:43 03:34 Temp 97.8 97.6 97.8 97.6 Pulse 72 75 67 Resp 16 16 B/P 127/65 141/70 101/56 Pulse Ox 99 98 O2 Delivery Room Air Nasal Cannula Nasal Cannula O2 Flow Rate 3.5 3.5 12/13/16 12/13/16 12/13/16 12/13/16 04:39 05:39 07:08 09:01 Temp 98.2 98.2 Pulse 60 Resp 16 B/P 144/58 Pulse Ox 97 O2 Delivery Nasal Cannula Nasal Cannula Nasal Cannula Room Air O2 Flow Rate 3.5 3.5 12/13/16 12/13/16 12/13/16 09:13 09:13 09:14 Pulse 60 60 60 B/P 144/58 144/58 144/58 Intake and Output 12/12/16 12/12/16 12/13/16 15:00 23:00 07:00 Intake Total 120 ml 300 ml Output Total 750 ml 750 ml 2750 ml Balance -750 ml -630 ml -2450 ml JON WEAVER MD Dec 13, 2016 11:39
--- NOTE | 2016-12-13 15:00 | PDOC ---
SUBJECTIVE Subjective Breathing is still better. She does still get some relief from her nebulizer treatments. The swelling is improving a little bit in her legs. She is having a hard time continuing with the fluid restriction. Hasn't really been walking around much. OBJECTIVE Vital Signs Vital Signs Date Time Temp Pulse Resp B/P Pulse Ox O2 Delivery O2 Flow Rate FiO2 12/13/16 11:59 94 Room Air 12/13/16 11:30 97.5 66 20 121/66 94 Room Air 97.5 12/13/16 09:14 60 144/58 12/13/16 09:13 60 144/58 12/13/16 09:13 60 144/58 12/13/16 09:01 Room Air 12/13/16 08:00 Room Air 12/13/16 07:08 98.2 60 16 144/58 97 Nasal Cannula 3.5 98.2 12/13/16 05:39 Nasal Cannula 12/13/16 04:39 Nasal Cannula 3.5 12/13/16 03:34 97.6 67 16 101/56 98 Nasal Cannula 3.5 97.6 12/12/16 22:43 97.8 75 16 141/70 99 Nasal Cannula 3.5 97.8 12/12/16 22:14 Room Air 12/12/16 21:59 72 127/65 12/12/16 21:58 72 127/65 12/12/16 20:00 Room Air 12/12/16 19:24 98.2 72 16 127/65 95 Room Air 98.2 12/12/16 19:18 96 Room Air 12/12/16 15:54 Room Air 12/12/16 15:27 97.6 69 18 108/51 96 Room Air 97.6 I & O Intake and Output 12/13/16 07:00 Intake Total 420 ml Output Total 4250 ml Balance -3830 ml Intake Oral 420 ml Output Urine Total 4250 ml # Bowel Movements 1 PHYSICAL EXAM Physical Exam General: No acute distress. Sitting in chair. Mental status: Alert and oriented. Chest: Clear to auscultation. Decreased air movement throughout CV: Normal rate. Regular rhythm. No murmur. Abdomen: Normal bowel sounds. Soft, obese. Not distended. No tenderness. No guarding. No rebound. Extremities: 1+ pitting edema in the bilateral lower extremities ASSESSMENT/PLAN Assessment/Plan 1. Acute on chronic congestive heart failure: Continue Bumex. Continue fluid restriction. 2. COPD: Continue nebulizer treatments. Continue nebulized steroids. 3. Uncontrolled diabetes mellitus type 2: Increase insulin and make adjustments as needed. 4. Debilitation. Physical therapy to evaluate. We'll see how she does with that and whether she can go home in the next day or so. Problems: COMMENT Lab Laboratory Tests Test 12/12/16 16:39 12/12/16 21:11 12/13/16 04:18 12/13/16 07:41 Glucose (Fingerstick) 192mg/dL (70-99) 251mg/dL (70-99) 215mg/dL (70-99) Sodium Level 142mmol/L (136-145) Potassium Level 4.5mmol/L (3.5-5.1) Chloride Level 100mmol/L (98-107) Carbon Dioxide Level 37mmol/L (21-32) Anion Gap 5 (6-14) Blood Urea Nitrogen 49mg/dL (7-20) Creatinine 1.3mg/dL (0.6-1.0) Estimated GFR (Cockcroft-Gault) 42.7 Glucose Level 268mg/dL (70-99) Calcium Level 9.1mg/dL (8.5-10.1) Test 12/13/16 12:06 Glucose (Fingerstick) 229mg/dL (70-99) JOSE BLAKELY MD Dec 13, 2016 15:00
[2016-12-13] MEDS: tiZANidine 4 MG TABLET. PO PRN (21:00)
[2016-12-13] MEDS: ATORVASTATIN CALCIUM 20 MG TABLET PO SCH (21:01)
[2016-12-14 03:14] VITALS: BP 130/65
[2016-12-14] MEDS: HYDROCODONE/APAP 10/325 TABLET. PO PRN ×2 (03:24→15:22)
[2016-12-14] MEDS: LEVOTHYROXINE 50 MCG TABLET PO SCH (06:20)
[2016-12-14 07:00] VITALS: BP 127/70
[2016-12-14] MEDS: IPRATRPIUM/ALBUTEROL 0.5/2.5MG 3 ML NEBU. NEB SCH ×4 (07:33→20:19)
[2016-12-14] MEDS: BUDESONIDE 0.5 MG/2 ML NEBU NEB SCH (07:33)
[2016-12-14] MEDS: ANTI-COAG MONITOR BY PHARMACY. MC PRN (08:07)
[2016-12-14] MEDS: PREGABALIN 75 MG CAPSULE PO SCH ×2 (09:06→21:27)
[2016-12-14] MEDS: FENOFIBRATE,MICRONIZED 134 MG CAPSULE PO SCH (09:06)
[2016-12-14] MEDS: ASPIRIN 81 MG TAB.CHEW PO SCH (09:07)
[2016-12-14] MEDS: ISOSORBIDE MONONITRATE ER 30 MG TAB.ER.24H PO SCH (09:07)
[2016-12-14] MEDS: POTASSIUM CHLORIDE 20 MEQ TABLET.ER. PO SCH ×3 (09:07→21:27)
[2016-12-14] MEDS: DABIGATRAN ETEXILATE 150 MG CAPSULE. PO SCH ×2 (09:07→21:27)
[2016-12-14] MEDS: AMLODIPINE BESYLATE 5 MG TABLET PO SCH ×2 (09:08→21:00)
[2016-12-14] MEDS: PANTOPRAZOLE 40 MG TABLET. PO SCH (09:08)
[2016-12-14] MEDS: BUMETANIDE 1 MG TABLET PO SCH (09:08)
[2016-12-14] MEDS: DULOXETINE HCL 30 MG CAPSULE.DR. PO SCH ×2 (09:08→21:26)
[2016-12-14] MEDS: NYSTATIN TOPICAL POWDER 15GM BOTTLE. TP SCH ×2 (09:09→21:27)
[2016-12-14] MEDS: CLONIDINE HCL 0.1 MG TABLET PO SCH ×3 (09:09→21:00)
[2016-12-14] MEDS: INSULIN ASPART 300 UNITS/3 ML INSULN.PEN SQ SCH ×5 (09:16→21:29)
[2016-12-14] MEDS: INSULIN DETEMIR 300 UNITS/3 ML INSULN.PEN. SQ SCH ×2 (09:17→21:29)
--- NOTE | 2016-12-14 10:00 | PDOC ---
PROGRESS NOTES Subjective Subjective Patient seated in chair on exam this morning. States that edema has improved in hands but still remains in feet. She states she has not been able to walk much at all due to shah in place. Denies cardiac complaints other than edema in feet. Objective Objective Vital Signs Date Time Temp Pulse Resp B/P Pulse Ox O2 Delivery O2 Flow Rate FiO2 12/14/16 09:09 62 127/70 12/14/16 07:33 92 Room Air 12/14/16 07:00 98.6 18 98.6 12/13/16 07:08 3.5 Intake and Output 12/14/16 07:00 Intake Total 2200 ml Output Total 3325 ml Balance -1125 ml Intake Oral 2200 ml Output Urine Total 3325 ml Physical Exam Heart: Other (No changes since last cardiac exam) Extremities: Other (Edema improved in hands, improving in LE b/l) General: Alert, Cooperative, No acute distress Lungs: Other (Rhonchi) Assessment Assessment CHF improving but if pt does not elevate the feet and she just continues to sit and dangle her feet the edema is not going to improve much. Problems Medical Problems: (1) Acute on chronic congestive heart failure Status: Acute (2) COPD exacerbation Status: Acute (3) Malignant hypertension Status: Acute (4) Pulmonary edema Status: Acute Plan Plan of Care Agree with present plan Comment Review of Relevant I have reviewed the following items jim (where applicable) has been applied. Labs Laboratory Tests Test 12/12/16 11:08 12/12/16 16:39 12/12/16 21:11 12/13/16 04:18 Glucose (Fingerstick) 359mg/dL (70-99) 192mg/dL (70-99) 251mg/dL (70-99) Sodium Level 142mmol/L (136-145) Potassium Level 4.5mmol/L (3.5-5.1) Chloride Level 100mmol/L (98-107) Carbon Dioxide Level 37mmol/L (21-32) Anion Gap 5 (6-14) Blood Urea Nitrogen 49mg/dL (7-20) Creatinine 1.3mg/dL (0.6-1.0) Estimated GFR (Cockcroft-Gault) 42.7 Glucose Level 268mg/dL (70-99) Calcium Level 9.1mg/dL (8.5-10.1) Test 12/13/16 07:41 12/13/16 12:06 12/13/16 16:35 12/13/16 20:40 Glucose (Fingerstick) 215mg/dL (70-99) 229mg/dL (70-99) 267mg/dL (70-99) 266mg/dL (70-99) Test 12/14/16 08:03 Glucose (Fingerstick) 240mg/dL (70-99) Laboratory Tests Test 12/13/16 12:06 12/13/16 16:35 12/13/16 20:40 12/14/16 08:03 Glucose (Fingerstick) 229mg/dL (70-99) 267mg/dL (70-99) 266mg/dL (70-99) 240mg/dL (70-99) Medications Current Medications Albuterol/ Ipratropium (Duoneb) 6 ml 1X ONCE NEB Last administered on 09:56; Start 12/09/16 at 09:45; Stop 12/09/16 at 09:46; Status DC Methylprednisolone Sodium Succinate (Solu-Medrol 125mg Vial) 100 mg 1X ONCE IV Last administered on 12/09/16 10:32; Start 12/09/16 at 09:45; Stop 12/09/16 at 09:46; Status DC Ondansetron HCl 4 mg 4 mg PRN Q8HRS PRN IV NAUSEA/VOMITING; Start 12/09/16 at 11:45; Stop 12/10/16 at 11:44; Status DC Sodium Chloride (Iv Sodium Chloride 0.9% 1000ml Bag) 1,000 ml @ 0 mls/hr Q0M IV Last administered on 12/09/16 13:09; Start 12/09/16 at 12:00; Stop at 11:59; Status DC Acetaminophen (Tylenol) 650 mg PRN Q4HRS PRN PO FEVER; Start 12/09/16 at 11:45 ; Stop 12/10/16 at 11:44; Status DC Albuterol/ Ipratropium 3 ml 3 ml RTQID NEB Last administered on 12/10/16 11:49 ; Start 12/09/16 at 12:00; Stop 12/10/16 at 11:59; Status DC Nicardipine HCl/ Sodium Chloride (Cardene/Iv Sodium Chloride 0.9% 250ml) 270 ml @ 0 mls/hr CONT PRN IV SEE I/O RECORD Last administered on 12/09/16 19:30; Start 12/09/16 at 11:45 Furosemide (Lasix) 60 mg TID IVP Last administered on 12/10/16 08:44; Start at 14:00; Stop 12/10/16 at 10:58; Status DC Lidocaine HCl (Glydo (Lidocaine) Jelly) 1 eric 1X ONCE MM Last administered on 12/09/16 16:15; Start 12/09/16 at 16:15; Stop 12/09/16 at 16:16; Status DC Nystatin (Nystop) 1 eric BID TP Last administered on 12/14/16 09:09; Start at 17:00 Aspirin (Children'S Aspirin) 81 mg DAILY PO Last administered on 12/14/16 09: 07; Start 12/10/16 at 09:00 Atorvastatin Calcium (Lipitor) 20 mg DAILY PO ; Start 12/10/16 at 09:00; Stop at 10:50; Status DC Clonidine HCl (Catapres) 0.1 mg TID PO Last administered on 12/14/16 09:09; Start 12/09/16 at 21:00 Dabigatran (Pradaxa) 150 mg BID PO Last administered on 12/14/16 09:07; Start 12/09/16 at 21:00 Fenofibrate (Lofibra) 134 mg DAILY PO Last administered on 12/14/16 09:06; Start 12/10/16 at 09:00 Acetaminophen/ Hydrocodone Bitart (Lortab 10/325) 1 tab PRN Q6HRS PRN PO PAIN Last administered on 12/14/16 03:24; Start 12/09/16 at 17:30 Isosorbide Mononitrate (Imdur) 30 mg DAILY PO Last administered on 12/14/16 09 :07; Start 12/10/16 at 09:00 Levothyroxine Sodium (Synthroid) 50 mcg DAILY07 PO Last administered on 06:20; Start 12/10/16 at 07:00 Metolazone (Zaroxolyn) 2 mg QMWF PRN PO AD Last administered on 12/12/16 08:59 ; Start 12/09/16 at 17:30 Duloxetine HCl (Cymbalta) 60 mg BID PO Last administered on 12/14/16 09:08; Start 12/10/16 at 21:00 Pantoprazole Sodium (Protonix) 40 mg DAILYAC PO Last administered on 12/14/16 09:08; Start 12/10/16 at 07:30 Insulin Detemir (Levemir) 40 units DAILYWBKFT SQ Last administered on 21:12; Start 12/09/16 at 21:00; Stop 12/10/16 at 07:11; Status DC Insulin Aspart (Novolog) 20 units TIDBFRMEAL SQ ; Start 12/10/16 at 07:30; Stop 12/10/16 at 07:30; Status DC Pregabalin (Lyrica) 150 mg BID PO Last administered on 12/14/16 09:06; Start 12/09/16 at 21:00 Tizanidine HCl (Zanaflex) 4 mg PRN Q8HRS PRN PO MUSCLE SPASMS Last administered on 12/13/16 21:00; Start 12/09/16 at 17:45 Budesonide (Pulmicort) 0.5 mg RTBID NEB Last administered on 12/14/16 07:33; Start 12/09/16 at 20:00 Insulin Aspart (Novolog) 0-9 UNITS TIDWMEALS SQ ; Start 12/10/16 at 08:00; Stop 12/10/16 at 08:00; Status DC Dextrose 12.5 gm PRN Q15MIN PRN IV SEE COMMENTS; Start 12/09/16 at 17:45; Stop 12/10/16 at 07:43; Status DC Insulin Aspart (Novolog) 20 units TIDBFRMEAL SQ Last administered on 12/09/16 19:27; Start 12/09/16 at 19:15; Stop 12/10/16 at 07:11; Status DC Potassium Chloride 20 meq 20 meq TID PO Last administered on 12/14/16 09:07; Start 12/09/16 at 21:00 Insulin Human Regular/Sodium Chloride (Novolin R Vial/ Iv Normal Saline 150ml) 151.5 ml @ 0 mls/hr CONT PRN IV SEE I/O RECORD Last administered on 12/10/16 15:51; Start 12/10/16 at 07:15; Stop 12/11/16 at 10:26; Status DC Dextrose 12.5 gm PRN Q15MIN PRN IV LOW BLOOD SUGAR; Start 12/10/16 at 07:15 Atorvastatin Calcium (Lipitor) 20 mg QHS PO Last administered on 12/13/16 21: 01; Start 12/10/16 at 21:00 Furosemide (Lasix) 60 mg TID IVP Last administered on 12/10/16 20:42; Start at 14:00; Stop 12/10/16 at 23:55; Status DC Furosemide (Lasix) 60 mg DAILY PO Last administered on 12/11/16 07:46; Start 12/11/16 at 09:00; Stop 12/12/16 at 09:08; Status DC Amlodipine Besylate (Norvasc) 5 mg BID PO Last administered on 12/14/16 09:08 ; Start 12/10/16 at 21:00 Albuterol/ Ipratropium (Duoneb) 3 ml RTQID NEB Last administered on 12/14/16 07:33; Start 12/10/16 at 20:00 Insulin Detemir (Levemir) 27 units Q12HR SQ Last administered on 12/12/16 09: 00; Start 12/11/16 at 10:30; Stop 12/12/16 at 09:08; Status DC Insulin Aspart (Novolog) 14 units TIDAC SQ Last administered on 12/12/16 07:30 ; Start 12/11/16 at 11:30; Stop 12/12/16 at 09:08; Status DC Furosemide (Lasix) 40 mg 1X ONCE IVP Last administered on 12/11/16 11:45; Start 12/11/16 at 10:30; Stop 12/11/16 at 10:31; Status DC Insulin Aspart (Novolog) 17 units TIDAC SQ Last administered on 12/13/16 12:26 ; Start 12/12/16 at 11:30; Stop 12/13/16 at 15:02; Status DC Insulin Detemir (Levemir) 30 units Q12HR SQ Last administered on 12/13/16 09: 25; Start 12/12/16 at 21:00; Stop 12/13/16 at 15:02; Status DC Bumetanide (Bumex) 2 mg DAILY PO Last administered on 12/14/16 09:08; Start at 09:15 Simethicone (Gas-X) 80 mg PRN AFTMEALHC PRN PO GAS / BLOATING; Start 12/12/16 at 09:15 Info (Anti-Coagulation Monitoring By Pharmacy) 1 each PRN DAILY PRN MC SEE COMMENTS Last administered on 12/14/16 08:07; Start 12/12/16 at 10:15 Insulin Aspart (Novolog) 20 units TIDAC SQ Last administered on 12/14/16 09:16 ; Start 12/13/16 at 16:30 Insulin Detemir (Levemir) 33 units Q12HR SQ Last administered on 12/14/16 09: 17; Start 12/13/16 at 21:00 Active Scripts Active Keflex (Cephalexin) 500 Mg Capsule 500 Mg PO QID 3 Days Nitrostat (Nitroglycerin) 0.4 Mg Tab.subl 0.4 Mg SL PRN Q5MIN PRN 30 Days Reported Lyrica (Pregabalin) 150 Mg Capsule 1 Cap PO BID Cymbalta (Duloxetine Hcl) 60 Mg Capsule. 1 Cap PO BID Metolazone 2.5 Mg Tablet 2 Mg PO QMWF PRN Lantus (Insulin Glargine,Hum.rec.anlog) 100 Unit/1 Ml Vial 40 Unit SQ DAILY07 Humalog (Insulin Lispro) 100 Unit/1 Ml Insuln.pen 20 Unit SQ TIDACHC Atorvastatin Calcium 20 Mg Tablet 1 Tab PO DAILY Nexium Capsule (Esomeprazole Magnesium) 40 Mg Capsule. 1 Cap PO DAILY Isosorbide Mononitrate Er (Isosorbide Mononitrate) 30 Mg Tab.er.24h 1 Tab PO DAILY Aspirin 81 Mg Tab.chew 1 Tab PO DAILY Pradaxa (Dabigatran Etexilate Mesylate) 150 Mg Capsule 1 Cap PO BID Levothyroxine Sodium 50 Mcg Tablet 1 Tab PO DAILY Fenofibrate (Fenofibrate,Micronized) 134 Mg Capsule 1 Cap PO DAILY Clonidine Hcl 0.1 Mg Tablet 0.1 Mg PO TID Zanaflex (Tizanidine Hcl) 4 Mg Capsule 4 Mg PO PRN Q8HRS PRN as needed for muscle cramps no more than every 8hrs Hydrocodone-Apap 10-325 (Hydrocodone Bit/Acetaminophen) 1 Each Tablet 1 Tab PO PRN Q6HRS PRN as needed for pain every 6 hours Vitals/I & O Vital Sign - Last 24 Hours 12/13/16 12/13/16 12/13/16 12/13/16 11:30 11:59 15:02 16:16 Temp 97.5 97.6 97.5 97.6 Pulse 66 65 Resp 20 20 B/P 121/66 90/48 Pulse Ox 94 94 94 95 O2 Delivery Room Air Room Air Room Air Room Air 12/13/16 12/13/16 12/13/16 12/13/16 17:06 19:20 19:24 19:51 Temp 97.1 97.1 Pulse 70 69 Resp 16 B/P 111/57 98/56 101/54 Pulse Ox 93 O2 Delivery Room Air Room Air 12/13/16 12/13/16 12/13/16 12/13/16 20:09 21:01 21:02 21:02 Pulse 69 69 B/P 101/54 101/54 O2 Delivery Room Air Room Air 12/13/16 12/14/16 12/14/16 12/14/16 23:15 03:14 03:24 07:00 Temp 98.1 98.5 98.6 98.1 98.5 98.6 Pulse 63 60 62 Resp 18 18 18 B/P 103/53 130/65 127/70 Pulse Ox 92 97 98 O2 Delivery Room Air Room Air Room Air Room Air 12/14/16 12/14/16 12/14/16 12/14/16 07:30 07:33 09:07 09:08 Pulse 62 62 B/P 127/70 127/70 Pulse Ox 92 O2 Delivery Room Air Room Air 12/14/16 09:09 Pulse 62 B/P 127/70 Intake and Output 12/13/16 12/13/16 12/14/16 15:00 23:00 07:00 Intake Total 2000 ml 200 ml Output Total 2125 ml 1200 ml Balance -125 ml -1000 ml JON WEAVER MD Dec 14, 2016 10:00
[2016-12-14 11:00] VITALS: BP 101/59
[2016-12-14 15:00] VITALS: BP 102/56
--- NOTE | 2016-12-14 17:53 | PDOC ---
PROGRESS NOTES Subjective Subjective Patient continues to have difficulty with ambulation but able to ambulate today with PT ongoing shortness of breath slightly improved from yesterday. Objective Objective Vital Signs Date Time Temp Pulse Resp B/P Pulse Ox O2 Delivery O2 Flow Rate FiO2 12/14/16 16:24 Room Air 12/14/16 15:37 94 12/14/16 15:21 61 101/59 12/14/16 15:00 97.9 18 97.9 12/13/16 07:08 3.5 Intake and Output 12/14/16 07:00 Intake Total 2200 ml Output Total 3325 ml Balance -1125 ml Intake Oral 2200 ml Output Urine Total 3325 ml Physical Exam Physical Exam General: No acute distress. Sitting in chair. Mental status: Alert and oriented. Chest: Clear to auscultation. Decreased air movement throughout CV: Normal rate. Regular rhythm. No murmur. Abdomen: Normal bowel sounds. Soft, obese. Not distended. No tenderness. No guarding. No rebound. Extremities: 1+ pitting edema in the bilateral lower extremities Assessment Assessment Problems Medical Problems: (1) Acute on chronic congestive heart failure Status: Acute (2) COPD exacerbation Status: Acute (3) Malignant hypertension Status: Acute (4) Pulmonary edema Status: Acute 1. Acute on chronic congestive heart failure: 2. COPD: 3. Uncontrolled diabetes mellitus type 2: 4. Debilitation. 5. Morbid obesity Plan Plan of Care Continue pulmonary toilet. Continue ongoing diuresis. Proceed with PT and OT modalities. Adjust insulin and increase insulin due to her blood sugars . Add sliding scale insulin D/C Mcgee Comment Review of Relevant I have reviewed the following items jim (where applicable) has been applied. Labs Laboratory Tests Test 12/12/16 21:11 12/13/16 04:18 12/13/16 07:41 12/13/16 12:06 Glucose (Fingerstick) 251mg/dL (70-99) 215mg/dL (70-99) 229mg/dL (70-99) Sodium Level 142mmol/L (136-145) Potassium Level 4.5mmol/L (3.5-5.1) Chloride Level 100mmol/L (98-107) Carbon Dioxide Level 37mmol/L (21-32) Anion Gap 5 (6-14) Blood Urea Nitrogen 49mg/dL (7-20) Creatinine 1.3mg/dL (0.6-1.0) Estimated GFR (Cockcroft-Gault) 42.7 Glucose Level 268mg/dL (70-99) Calcium Level 9.1mg/dL (8.5-10.1) Test 12/13/16 16:35 12/13/16 20:40 12/14/16 08:03 12/14/16 11:15 Glucose (Fingerstick) 267mg/dL (70-99) 266mg/dL (70-99) 240mg/dL (70-99) 379mg/dL (70-99) Test 12/14/16 17:02 Glucose (Fingerstick) 248mg/dL (70-99) Laboratory Tests Test 12/13/16 20:40 12/14/16 08:03 12/14/16 11:15 12/14/16 17:02 Glucose (Fingerstick) 266mg/dL (70-99) 240mg/dL (70-99) 379mg/dL (70-99) 248mg/dL (70-99) Medications Current Medications Albuterol/ Ipratropium (Duoneb) 6 ml 1X ONCE NEB Last administered on 09:56; Start 12/09/16 at 09:45; Stop 12/09/16 at 09:46; Status DC Methylprednisolone Sodium Succinate (Solu-Medrol 125mg Vial) 100 mg 1X ONCE IV Last administered on 12/09/16 10:32; Start 12/09/16 at 09:45; Stop 12/09/16 at 09:46; Status DC Ondansetron HCl 4 mg 4 mg PRN Q8HRS PRN IV NAUSEA/VOMITING; Start 12/09/16 at 11:45; Stop 12/10/16 at 11:44; Status DC Sodium Chloride (Iv Sodium Chloride 0.9% 1000ml Bag) 1,000 ml @ 0 mls/hr Q0M IV Last administered on 12/09/16 13:09; Start 12/09/16 at 12:00; Stop at 11:59; Status DC Acetaminophen (Tylenol) 650 mg PRN Q4HRS PRN PO FEVER; Start 12/09/16 at 11:45 ; Stop 12/10/16 at 11:44; Status DC Albuterol/ Ipratropium 3 ml 3 ml RTQID NEB Last administered on 12/10/16 11:49 ; Start 12/09/16 at 12:00; Stop 12/10/16 at 11:59; Status DC Nicardipine HCl/ Sodium Chloride (Cardene/Iv Sodium Chloride 0.9% 250ml) 270 ml @ 0 mls/hr CONT PRN IV SEE I/O RECORD Last administered on 12/09/16 19:30; Start 12/09/16 at 11:45 Furosemide (Lasix) 60 mg TID IVP Last administered on 12/10/16 08:44; Start at 14:00; Stop 12/10/16 at 10:58; Status DC Lidocaine HCl (Glydo (Lidocaine) Jelly) 1 eric 1X ONCE MM Last administered on 12/09/16 16:15; Start 12/09/16 at 16:15; Stop 12/09/16 at 16:16; Status DC Nystatin (Nystop) 1 eric BID TP Last administered on 12/14/16 09:09; Start at 17:00 Aspirin (Children'S Aspirin) 81 mg DAILY PO Last administered on 12/14/16 09: 07; Start 12/10/16 at 09:00 Atorvastatin Calcium (Lipitor) 20 mg DAILY PO ; Start 12/10/16 at 09:00; Stop at 10:50; Status DC Clonidine HCl (Catapres) 0.1 mg TID PO Last administered on 12/14/16 15:21; Start 12/09/16 at 21:00 Dabigatran (Pradaxa) 150 mg BID PO Last administered on 12/14/16 09:07; Start 12/09/16 at 21:00 Fenofibrate (Lofibra) 134 mg DAILY PO Last administered on 12/14/16 09:06; Start 12/10/16 at 09:00 Acetaminophen/ Hydrocodone Bitart (Lortab 10/325) 1 tab PRN Q6HRS PRN PO PAIN Last administered on 12/14/16 15:22; Start 12/09/16 at 17:30 Isosorbide Mononitrate (Imdur) 30 mg DAILY PO Last administered on 12/14/16 09 :07; Start 12/10/16 at 09:00 Levothyroxine Sodium (Synthroid) 50 mcg DAILY07 PO Last administered on 06:20; Start 12/10/16 at 07:00 Metolazone (Zaroxolyn) 2 mg QMWF PRN PO AD Last administered on 12/12/16 08:59 ; Start 12/09/16 at 17:30 Duloxetine HCl (Cymbalta) 60 mg BID PO Last administered on 12/14/16 09:08; Start 12/10/16 at 21:00 Pantoprazole Sodium (Protonix) 40 mg DAILYAC PO Last administered on 12/14/16 09:08; Start 12/10/16 at 07:30 Insulin Detemir (Levemir) 40 units DAILYWBKFT SQ Last administered on 21:12; Start 12/09/16 at 21:00; Stop 12/10/16 at 07:11; Status DC Insulin Aspart (Novolog) 20 units TIDBFRMEAL SQ ; Start 12/10/16 at 07:30; Stop 12/10/16 at 07:30; Status DC Pregabalin (Lyrica) 150 mg BID PO Last administered on 12/14/16 09:06; Start 12/09/16 at 21:00 Tizanidine HCl (Zanaflex) 4 mg PRN Q8HRS PRN PO MUSCLE SPASMS Last administered on 12/13/16 21:00; Start 12/09/16 at 17:45 Budesonide (Pulmicort) 0.5 mg RTBID NEB Last administered on 12/14/16 07:33; Start 12/09/16 at 20:00; Stop 12/14/16 at 11:35; Status DC Insulin Aspart (Novolog) 0-9 UNITS TIDWMEALS SQ ; Start 12/10/16 at 08:00; Stop 12/10/16 at 08:00; Status DC Dextrose 12.5 gm PRN Q15MIN PRN IV SEE COMMENTS; Start 12/09/16 at 17:45; Stop 12/10/16 at 07:43; Status DC Insulin Aspart (Novolog) 20 units TIDBFRMEAL SQ Last administered on 12/09/16 19:27; Start 12/09/16 at 19:15; Stop 12/10/16 at 07:11; Status DC Potassium Chloride 20 meq 20 meq TID PO Last administered on 12/14/16 15:21; Start 12/09/16 at 21:00 Insulin Human Regular/Sodium Chloride (Novolin R Vial/ Iv Normal Saline 150ml) 151.5 ml @ 0 mls/hr CONT PRN IV SEE I/O RECORD Last administered on 12/10/16 15:51; Start 12/10/16 at 07:15; Stop 12/11/16 at 10:26; Status DC Dextrose 12.5 gm PRN Q15MIN PRN IV LOW BLOOD SUGAR; Start 12/10/16 at 07:15 Atorvastatin Calcium (Lipitor) 20 mg QHS PO Last administered on 12/13/16 21: 01; Start 12/10/16 at 21:00 Furosemide (Lasix) 60 mg TID IVP Last administered on 12/10/16 20:42; Start at 14:00; Stop 12/10/16 at 23:55; Status DC Furosemide (Lasix) 60 mg DAILY PO Last administered on 12/11/16 07:46; Start 12/11/16 at 09:00; Stop 12/12/16 at 09:08; Status DC Amlodipine Besylate (Norvasc) 5 mg BID PO Last administered on 12/14/16 09:08 ; Start 12/10/16 at 21:00 Albuterol/ Ipratropium (Duoneb) 3 ml RTQID NEB Last administered on 12/14/16 15:35; Start 12/10/16 at 20:00 Insulin Detemir (Levemir) 27 units Q12HR SQ Last administered on 12/12/16 09: 00; Start 12/11/16 at 10:30; Stop 12/12/16 at 09:08; Status DC Insulin Aspart (Novolog) 14 units TIDAC SQ Last administered on 12/12/16 07:30 ; Start 12/11/16 at 11:30; Stop 12/12/16 at 09:08; Status DC Furosemide (Lasix) 40 mg 1X ONCE IVP Last administered on 12/11/16 11:45; Start 12/11/16 at 10:30; Stop 12/11/16 at 10:31; Status DC Insulin Aspart (Novolog) 17 units TIDAC SQ Last administered on 12/13/16 12:26 ; Start 12/12/16 at 11:30; Stop 12/13/16 at 15:02; Status DC Insulin Detemir (Levemir) 30 units Q12HR SQ Last administered on 12/13/16 09: 25; Start 12/12/16 at 21:00; Stop 12/13/16 at 15:02; Status DC Bumetanide (Bumex) 2 mg DAILY PO Last administered on 12/14/16 09:08; Start at 09:15 Simethicone (Gas-X) 80 mg PRN AFTMEALHC PRN PO GAS / BLOATING; Start 12/12/16 at 09:15 Info (Anti-Coagulation Monitoring By Pharmacy) 1 each PRN DAILY PRN MC SEE COMMENTS Last administered on 12/14/16 08:07; Start 12/12/16 at 10:15 Insulin Aspart (Novolog) 20 units TIDAC SQ Last administered on 12/14/16 12:49 ; Start 12/13/16 at 16:30; Stop 12/14/16 at 16:28; Status DC Insulin Detemir (Levemir) 33 units Q12HR SQ Last administered on 12/14/16 09: 17; Start 12/13/16 at 21:00; Stop 12/14/16 at 16:28; Status DC Insulin Aspart (Novolog) 25 units TIDAC SQ Last administered on 12/14/16 17:41 ; Start 12/14/16 at 16:30 Insulin Detemir (Levemir) 40 units Q12HR SQ ; Start 12/14/16 at 21:00 Insulin Aspart (Novolog) 0-12 UNITS QIDACHS SQ Last administered on 12/14/16 17:42; Start 12/14/16 at 16:30 Active Scripts Active Keflex (Cephalexin) 500 Mg Capsule 500 Mg PO QID 3 Days Nitrostat (Nitroglycerin) 0.4 Mg Tab.subl 0.4 Mg SL PRN Q5MIN PRN 30 Days Reported Lyrica (Pregabalin) 150 Mg Capsule 1 Cap PO BID Cymbalta (Duloxetine Hcl) 60 Mg Capsule. 1 Cap PO BID Metolazone 2.5 Mg Tablet 2 Mg PO QMWF PRN Lantus (Insulin Glargine,Hum.rec.anlog) 100 Unit/1 Ml Vial 40 Unit SQ DAILY07 Humalog (Insulin Lispro) 100 Unit/1 Ml Insuln.pen 20 Unit SQ TIDACHC Atorvastatin Calcium 20 Mg Tablet 1 Tab PO DAILY Nexium Capsule (Esomeprazole Magnesium) 40 Mg Capsule.dr 1 Cap PO DAILY Isosorbide Mononitrate Er (Isosorbide Mononitrate) 30 Mg Tab.er.24h 1 Tab PO DAILY Aspirin 81 Mg Tab.chew 1 Tab PO DAILY Pradaxa (Dabigatran Etexilate Mesylate) 150 Mg Capsule 1 Cap PO BID Levothyroxine Sodium 50 Mcg Tablet 1 Tab PO DAILY Fenofibrate (Fenofibrate,Micronized) 134 Mg Capsule 1 Cap PO DAILY Clonidine Hcl 0.1 Mg Tablet 0.1 Mg PO TID Zanaflex (Tizanidine Hcl) 4 Mg Capsule 4 Mg PO PRN Q8HRS PRN as needed for muscle cramps no more than every 8hrs Hydrocodone-Apap 10-325 (Hydrocodone Bit/Acetaminophen) 1 Each Tablet 1 Tab PO PRN Q6HRS PRN as needed for pain every 6 hours Vitals/I & O Vital Sign - Last 24 Hours 12/13/16 12/13/16 12/13/16 12/13/16 19:20 19:24 19:51 20:09 Temp 97.1 97.1 Pulse 69 Resp 16 B/P 98/56 101/54 Pulse Ox 93 O2 Delivery Room Air Room Air Room Air 12/13/16 12/13/16 12/13/16 12/13/16 21:01 21:02 21:02 23:15 Temp 98.1 98.1 Pulse 69 69 63 Resp 18 B/P 101/54 101/54 103/53 Pulse Ox 92 O2 Delivery Room Air Room Air 12/14/16 12/14/16 12/14/16 12/14/16 03:14 03:24 07:00 07:30 Temp 98.5 98.6 98.5 98.6 Pulse 60 62 Resp 18 18 B/P 130/65 127/70 Pulse Ox 97 98 O2 Delivery Room Air Room Air Room Air Room Air 12/14/16 12/14/16 12/14/16 12/14/16 07:33 09:07 09:08 09:09 Pulse 62 62 62 B/P 127/70 127/70 127/70 Pulse Ox 92 O2 Delivery Room Air 12/14/16 12/14/16 12/14/16 12/14/16 11:00 11:21 15:00 15:21 Temp 97.8 97.9 97.8 97.9 Pulse 64 60 61 Resp 18 18 B/P 101/59 102/56 101/59 Pulse Ox 97 94 O2 Delivery Room Air Room Air Room Air 12/14/16 12/14/16 12/14/16 15:22 15:37 16:24 Pulse Ox 94 O2 Delivery Room Air Room Air Room Air Intake and Output 12/13/16 12/13/16 12/14/16 15:00 23:00 07:00 Intake Total 2000 ml 200 ml Output Total 2125 ml 1200 ml Balance -125 ml -1000 ml SERGIO BARAJAS MD Dec 14, 2016 17:53
[2016-12-14 19:00] VITALS: BP 83/45
[2016-12-14] MEDS: ATORVASTATIN CALCIUM 20 MG TABLET PO SCH (21:26)
[2016-12-14 23:00] VITALS: BP 111/55
[2016-12-15] MEDS: tiZANidine 4 MG TABLET. PO PRN (00:25)
[2016-12-15] MEDS: HYDROCODONE/APAP 10/325 TABLET. PO PRN ×3 (00:25→15:38)
[2016-12-15 03:10] VITALS: BP 121/47
[2016-12-15] MEDS: LEVOTHYROXINE 50 MCG TABLET PO SCH (07:06)
[2016-12-15 07:39] VITALS: BP 92/36
[2016-12-15 07:41] VITALS: BP 115/62
[2016-12-15] MEDS: IPRATRPIUM/ALBUTEROL 0.5/2.5MG 3 ML NEBU. NEB SCH ×3 (07:59→15:30)
[2016-12-15] MEDS: DABIGATRAN ETEXILATE 150 MG CAPSULE. PO SCH (08:26)
[2016-12-15] MEDS: FENOFIBRATE,MICRONIZED 134 MG CAPSULE PO SCH (08:26)
[2016-12-15] MEDS: POTASSIUM CHLORIDE 20 MEQ TABLET.ER. PO SCH ×2 (08:27→14:00)
[2016-12-15] MEDS: PANTOPRAZOLE 40 MG TABLET. PO SCH (08:27)
[2016-12-15] MEDS: NYSTATIN TOPICAL POWDER 15GM BOTTLE. TP SCH (08:27)
[2016-12-15] MEDS: PREGABALIN 75 MG CAPSULE PO SCH (08:27)
[2016-12-15] MEDS: DULOXETINE HCL 30 MG CAPSULE.DR. PO SCH (08:27)
[2016-12-15] MEDS: ASPIRIN 81 MG TAB.CHEW PO SCH (08:27)
[2016-12-15] MEDS: INSULIN ASPART 300 UNITS/3 ML INSULN.PEN SQ SCH ×4 (08:33→12:42)
[2016-12-15] MEDS: INSULIN DETEMIR 300 UNITS/3 ML INSULN.PEN. SQ SCH (08:34)
[2016-12-15] MEDS: AMLODIPINE BESYLATE 5 MG TABLET PO SCH (09:00)
[2016-12-15] MEDS: CLONIDINE HCL 0.1 MG TABLET PO SCH (09:00)
[2016-12-15] MEDS: ANTI-COAG MONITOR BY PHARMACY. MC PRN (10:31)
[2016-12-15] MEDS: ISOSORBIDE MONONITRATE ER 30 MG TAB.ER.24H PO SCH (10:54)
[2016-12-15] MEDS: BUMETANIDE 1 MG TABLET PO SCH (10:54)
[2016-12-15 10:56] VITALS: BP 117/59
[2016-12-15] MEDS ORDERED: INSU100I11 SQ (11:34)
[2016-12-15] MEDS ORDERED: POTA20TA4 PO (11:34)
[2016-12-15] MEDS ORDERED: BUME1TAB PO (11:34)
[2016-12-15] MEDS ORDERED: IPRA3AMP NEB (11:37)
[2016-12-15] MEDS ORDERED: CLON0.1T PO (11:38)
--- NOTE | 2016-12-15 13:44 | PDOC ---
PROGRESS NOTES Subjective Subjective Patient seated upright in chair this morning. Reports she has had issues with low blood pressure overnight. She feels edema is improving, states she has kept her feet up most of the time. Denies any cardiac complaints, feeling lightheaded or dizzy. Objective Objective Vital Signs Date Time Temp Pulse Resp B/P Pulse Ox O2 Delivery O2 Flow Rate FiO2 12/15/16 10:56 98.1 62 18 117/59 87 Room Air 98.1 12/15/16 08:05 3.0 Intake and Output 12/15/16 07:00 Intake Total 1250 ml Output Total 2300 ml Balance -1050 ml Intake Oral 1250 ml Output Urine Total 2300 ml Physical Exam Heart: Other (No change since last cardiac exam) Extremities: Other (Edema improving; Stasis derm and slight peeling in LE b/l) General: Alert, Cooperative, No acute distress Lungs: Other (Rhonchi improving) Assessment Assessment Problems Medical Problems: (1) Acute on chronic congestive heart failure Status: Acute (2) COPD exacerbation Status: Acute (3) Malignant hypertension Status: Acute (4) Pulmonary edema Status: Acute Plan Plan of Care May go home Comment Review of Relevant I have reviewed the following items jim (where applicable) has been applied. Labs Laboratory Tests Test 12/13/16 16:35 12/13/16 20:40 12/14/16 08:03 12/14/16 11:15 Glucose (Fingerstick) 267mg/dL (70-99) 266mg/dL (70-99) 240mg/dL (70-99) 379mg/dL (70-99) Test 12/14/16 17:02 12/14/16 21:26 12/15/16 07:26 Glucose (Fingerstick) 248mg/dL (70-99) 283mg/dL (70-99) 295mg/dL (70-99) Laboratory Tests Test 12/14/16 17:02 12/14/16 21:26 12/15/16 07:26 Glucose (Fingerstick) 248mg/dL (70-99) 283mg/dL (70-99) 295mg/dL (70-99) Medications Current Medications Albuterol/ Ipratropium (Duoneb) 6 ml 1X ONCE NEB Last administered on t 09:56; Start 12/09/16 at 09:45; Stop 12/09/16 at 09:46; Status DC Methylprednisolone Sodium Succinate (Solu-Medrol 125mg Vial) 100 mg 1X ONCE IV Last administered on 12/09/16 10:32; Start 12/09/16 at 09:45; Stop 12/09/16 at 09:46; Status DC Ondansetron HCl 4 mg 4 mg PRN Q8HRS PRN IV NAUSEA/VOMITING; Start 12/09/16 at 11:45; Stop 12/10/16 at 11:44; Status DC Sodium Chloride (Iv Sodium Chloride 0.9% 1000ml Bag) 1,000 ml @ 0 mls/hr Q0M IV Last administered on 12/09/16 13:09; Start 12/09/16 at 12:00; Stop at 11:59; Status DC Acetaminophen (Tylenol) 650 mg PRN Q4HRS PRN PO FEVER; Start 12/09/16 at 11:45 ; Stop 12/10/16 at 11:44; Status DC Albuterol/ Ipratropium 3 ml 3 ml RTQID NEB Last administered on 12/10/16 11:49 ; Start 12/09/16 at 12:00; Stop 12/10/16 at 11:59; Status DC Nicardipine HCl/ Sodium Chloride (Cardene/Iv Sodium Chloride 0.9% 250ml) 270 ml @ 0 mls/hr CONT PRN IV SEE I/O RECORD Last administered on 12/09/16 19:30; Start 12/09/16 at 11:45; Stop 12/15/16 at 10:33; Status DC Furosemide (Lasix) 60 mg TID IVP Last administered on 12/10/16 08:44; Start at 14:00; Stop 12/10/16 at 10:58; Status DC Lidocaine HCl (Glydo (Lidocaine) Jelly) 1 eric 1X ONCE MM Last administered on 12/09/16 16:15; Start 12/09/16 at 16:15; Stop 12/09/16 at 16:16; Status DC Nystatin (Nystop) 1 eric BID TP Last administered on 12/15/16 08:27; Start at 17:00 Aspirin (Children'S Aspirin) 81 mg DAILY PO Last administered on 12/15/16 08: 27; Start 12/10/16 at 09:00 Atorvastatin Calcium (Lipitor) 20 mg DAILY PO ; Start 12/10/16 at 09:00; Stop at 10:50; Status DC Clonidine HCl (Catapres) 0.1 mg TID PO Last administered on 12/14/16 15:21; Start 12/09/16 at 21:00; Stop 12/15/16 at 11:39; Status DC Dabigatran (Pradaxa) 150 mg BID PO Last administered on 12/15/16 08:26; Start 12/09/16 at 21:00 Fenofibrate (Lofibra) 134 mg DAILY PO Last administered on 12/15/16 08:26; Start 12/10/16 at 09:00 Acetaminophen/ Hydrocodone Bitart (Lortab 10/325) 1 tab PRN Q6HRS PRN PO PAIN Last administered on 12/15/16 07:09; Start 12/09/16 at 17:30 Isosorbide Mononitrate (Imdur) 30 mg DAILY PO Last administered on 12/15/16 10 :54; Start 12/10/16 at 09:00 Levothyroxine Sodium (Synthroid) 50 mcg DAILY07 PO Last administered on 07:06; Start 12/10/16 at 07:00 Metolazone (Zaroxolyn) 2 mg QMWF PRN PO AD Last administered on 12/12/16 08:59 ; Start 12/09/16 at 17:30 Duloxetine HCl (Cymbalta) 60 mg BID PO Last administered on 12/15/16 08:27; Start 12/10/16 at 21:00 Pantoprazole Sodium (Protonix) 40 mg DAILYAC PO Last administered on 12/15/16 08:27; Start 12/10/16 at 07:30 Insulin Detemir (Levemir) 40 units DAILYWBKFT SQ Last administered on 21:12; Start 12/09/16 at 21:00; Stop 12/10/16 at 07:11; Status DC Insulin Aspart (Novolog) 20 units TIDBFRMEAL SQ ; Start 12/10/16 at 07:30; Stop 12/10/16 at 07:30; Status DC Pregabalin (Lyrica) 150 mg BID PO Last administered on 12/15/16 08:27; Start 12/09/16 at 21:00 Tizanidine HCl (Zanaflex) 4 mg PRN Q8HRS PRN PO MUSCLE SPASMS Last administered on 12/15/16 00:25; Start 12/09/16 at 17:45 Budesonide (Pulmicort) 0.5 mg RTBID NEB Last administered on 12/14/16 07:33; Start 12/09/16 at 20:00; Stop 12/14/16 at 11:35; Status DC Insulin Aspart (Novolog) 0-9 UNITS TIDWMEALS SQ ; Start 12/10/16 at 08:00; Stop 12/10/16 at 08:00; Status DC Dextrose 12.5 gm PRN Q15MIN PRN IV SEE COMMENTS; Start 12/09/16 at 17:45; Stop 12/10/16 at 07:43; Status DC Insulin Aspart (Novolog) 20 units TIDBFRMEAL SQ Last administered on 12/09/16 19:27; Start 12/09/16 at 19:15; Stop 12/10/16 at 07:11; Status DC Potassium Chloride 20 meq 20 meq TID PO Last administered on 12/15/16 08:27; Start 12/09/16 at 21:00 Insulin Human Regular/Sodium Chloride (Novolin R Vial/ Iv Normal Saline 150ml) 151.5 ml @ 0 mls/hr CONT PRN IV SEE I/O RECORD Last administered on 12/10/16 15:51; Start 12/10/16 at 07:15; Stop 12/11/16 at 10:26; Status DC Dextrose 12.5 gm PRN Q15MIN PRN IV LOW BLOOD SUGAR; Start 12/10/16 at 07:15 Atorvastatin Calcium (Lipitor) 20 mg QHS PO Last administered on 12/14/16 21: 26; Start 12/10/16 at 21:00 Furosemide (Lasix) 60 mg TID IVP Last administered on 12/10/16 20:42; Start at 14:00; Stop 12/10/16 at 23:55; Status DC Furosemide (Lasix) 60 mg DAILY PO Last administered on 12/11/16 07:46; Start 12/11/16 at 09:00; Stop 12/12/16 at 09:08; Status DC Amlodipine Besylate (Norvasc) 5 mg BID PO Last administered on 12/14/16 09:08 ; Start 12/10/16 at 21:00; Stop 12/15/16 at 11:30; Status DC Albuterol/ Ipratropium (Duoneb) 3 ml RTQID NEB Last administered on 12/15/16 07:59; Start 12/10/16 at 20:00 Insulin Detemir (Levemir) 27 units Q12HR SQ Last administered on 12/12/16 09: 00; Start 12/11/16 at 10:30; Stop 12/12/16 at 09:08; Status DC Insulin Aspart (Novolog) 14 units TIDAC SQ Last administered on 12/12/16 07:30 ; Start 12/11/16 at 11:30; Stop 12/12/16 at 09:08; Status DC Furosemide (Lasix) 40 mg 1X ONCE IVP Last administered on 12/11/16 11:45; Start 12/11/16 at 10:30; Stop 12/11/16 at 10:31; Status DC Insulin Aspart (Novolog) 17 units TIDAC SQ Last administered on 12/13/16 12:26 ; Start 12/12/16 at 11:30; Stop 12/13/16 at 15:02; Status DC Insulin Detemir (Levemir) 30 units Q12HR SQ Last administered on 12/13/16 09: 25; Start 12/12/16 at 21:00; Stop 12/13/16 at 15:02; Status DC Bumetanide (Bumex) 2 mg DAILY PO Last administered on 12/15/16 10:54; Start at 09:15 Simethicone (Gas-X) 80 mg PRN AFTMEALHC PRN PO GAS / BLOATING; Start 12/12/16 at 09:15 Info (Anti-Coagulation Monitoring By Pharmacy) 1 each PRN DAILY PRN MC SEE COMMENTS Last administered on 12/15/16 10:31; Start 12/12/16 at 10:15 Insulin Aspart (Novolog) 20 units TIDAC SQ Last administered on 12/14/16 12:49 ; Start 12/13/16 at 16:30; Stop 12/14/16 at 16:28; Status DC Insulin Detemir (Levemir) 33 units Q12HR SQ Last administered on 12/14/16 09: 17; Start 12/13/16 at 21:00; Stop 12/14/16 at 16:28; Status DC Insulin Aspart (Novolog) 25 units TIDAC SQ Last administered on 12/15/16 12:42 ; Start 12/14/16 at 16:30 Insulin Detemir (Levemir) 40 units Q12HR SQ Last administered on 12/15/16 08: 34; Start 12/14/16 at 21:00 Insulin Aspart (Novolog) 0-12 UNITS QIDACHS SQ Last administered on 12/15/16 12:41; Start 12/14/16 at 16:30 Clonidine HCl (Catapres) 0.1 mg BID PO ; Start 12/15/16 at 21:00 Active Scripts Active Keflex (Cephalexin) 500 Mg Capsule 500 Mg PO QID 3 Days Nitrostat (Nitroglycerin) 0.4 Mg Tab.subl 0.4 Mg SL PRN Q5MIN PRN 30 Days Reported Lyrica (Pregabalin) 150 Mg Capsule 1 Cap PO BID Cymbalta (Duloxetine Hcl) 60 Mg Capsule.dr 1 Cap PO BID Metolazone 2.5 Mg Tablet 2 Mg PO QMWF PRN Lantus (Insulin Glargine,Hum.rec.anlog) 100 Unit/1 Ml Vial 40 Unit SQ DAILY07 Humalog (Insulin Lispro) 100 Unit/1 Ml Insuln.pen 20 Unit SQ TIDACHC Atorvastatin Calcium 20 Mg Tablet 1 Tab PO DAILY Nexium Capsule (Esomeprazole Magnesium) 40 Mg Capsule.dr 1 Cap PO DAILY Isosorbide Mononitrate Er (Isosorbide Mononitrate) 30 Mg Tab.er.24h 1 Tab PO DAILY Aspirin 81 Mg Tab.chew 1 Tab PO DAILY Pradaxa (Dabigatran Etexilate Mesylate) 150 Mg Capsule 1 Cap PO BID Levothyroxine Sodium 50 Mcg Tablet 1 Tab PO DAILY Fenofibrate (Fenofibrate,Micronized) 134 Mg Capsule 1 Cap PO DAILY Clonidine Hcl 0.1 Mg Tablet 0.1 Mg PO TID Zanaflex (Tizanidine Hcl) 4 Mg Capsule 4 Mg PO PRN Q8HRS PRN as needed for muscle cramps no more than every 8hrs Hydrocodone-Apap 10-325 (Hydrocodone Bit/Acetaminophen) 1 Each Tablet 1 Tab PO PRN Q6HRS PRN as needed for pain every 6 hours Vitals/I & O Vital Sign - Last 24 Hours 12/14/16 12/14/16 12/14/16 12/14/16 15:00 15:21 15:22 15:37 Temp 97.9 97.9 Pulse 60 61 Resp 18 B/P 102/56 101/59 Pulse Ox 94 94 O2 Delivery Room Air Room Air Room Air 12/14/16 12/14/16 12/14/16 12/15/16 19:00 20:17 23:00 00:25 Temp 97.4 97.4 Pulse 67 61 Resp 18 20 B/P 83/45 111/55 Pulse Ox 96 95 O2 Delivery Room Air Room Air Room Air Room Air 12/15/16 12/15/16 12/15/16 12/15/16 03:10 07:39 07:41 08:00 Temp 97.8 98.0 97.8 98.0 Pulse 65 58 Resp 18 16 B/P 121/47 92/36 115/62 Pulse Ox 92 98 O2 Delivery Room Air Nasal Cannula Room Air O2 Flow Rate 3.0 3.0 12/15/16 12/15/16 12/15/16 12/15/16 08:00 08:05 10:54 10:56 Temp 98.1 98.1 Pulse 62 Resp 18 B/P 117/59 117/59 Pulse Ox 100 100 87 O2 Delivery Nasal Cannula Room Air Room Air O2 Flow Rate 3.0 3.0 Intake and Output 12/14/16 12/14/16 12/15/16 15:00 23:00 07:00 Intake Total 1250 ml Output Total 1350 ml 950 ml Balance -100 ml -950 ml JON WEAVER MD Dec 15, 2016 13:44
[2016-12-15 15:13] VITALS: BP 127/68
[2016-12-15] MEDS ORDERED: CLONIDINE HCL 0.1 MG TABLET PO SCH (21:00)
[2016-12-16] MEDS ORDERED: BUMETANIDE 1 MG TABLET. PO SCH (09:00)
== END 2016-12-15 17:30 | disposition home or self-care (01) | DRG 291 ==
LOC: ER 09:04 → ED HOLD 11:08 → 1 WEST ICU 15:59 → CVICU 12-10 18:26 → 2 SOUTH 12-12 12:42
PROVIDERS: ADMIT Family Medicine; ATTEND Family Medicine
DX: I50.43 Acute on chronic combined systolic (congestive) and diastolic (congestive) heart failure (principal); J96.00 Acute respiratory failure, unspecified whether with hypoxia or hypercapnia; I13.0 Hypertensive heart and chronic kidney disease with heart failure and stage 1 through stage 4 chronic kidney disease, or unspecified chronic kidney disease; J44.1 Chronic obstructive pulmonary disease with (acute) exacerbation; E11.22 Type 2 diabetes mellitus with diabetic chronic kidney disease; E11.65 Type 2 diabetes mellitus with hyperglycemia; E66.01 Morbid (severe) obesity due to excess calories; M10.9 Gout, unspecified; N18.9 Chronic kidney disease, unspecified; T50.2X5A Adverse effect of carbonic-anhydrase inhibitors, benzothiadiazides and other diuretics, initial encounter; I25.10 Atherosclerotic heart disease of native coronary artery without angina pectoris; M54.5 Low back pain; F32.9 Major depressive disorder, single episode, unspecified; Z87.440 Personal history of urinary (tract) infections; I25.2 Old myocardial infarction; Z82.49 Family history of ischemic heart disease and other diseases of the circulatory system; Z83.3 Family history of diabetes mellitus; Z86.711 Personal history of pulmonary embolism; Z86.73 Personal history of transient ischemic attack (TIA), and cerebral infarction without residual deficits; Z90.49 Acquired absence of other specified parts of digestive tract; Z90.710 Acquired absence of both cervix and uterus
CPT/HCPCS: 36415; 71275; 74022; 80048; 80053; 82553; 82947; 83880; 84484; 85007; 85027; 85379; 87641; 87804; 93005; 93306; 94250; 94640; 94760; 96361; 96374; J1815; J1940; J2930; J7030; J7050; J7620; 99291-25

== ENCOUNTER 2016-12-23 11:31 | Inpatient (IN) | payer OTHER, MEDICARE ==
[~2016-12-23] VITALS: Ht 152.4 cm; Wt 113.0 kg
[~2016-12-23 11:31] MED LIST changes: +BUME1TAB PO; +IPRA3AMP NEB; +POTA20TA4 PO
[2016-12-23] MEDS ORDERED: ASPIRIN 325 MG TABLET PO ONE (12:15)
[2016-12-23] MEDS ORDERED: IPRATRPIUM/ALBUTEROL 0.5/2.5MG 3 ML NEBU. NEB ONE (12:15)
[2016-12-23] MEDS ORDERED: methylPREDNISolone SOD SUCC PF 125 MG/2 ML VIAL. IV ONE (12:15)
[2016-12-23 12:19] LABS: BASO # 0.1 x10^3/uL (0.0-0.2); BASO % 1 % (0-3); EOS % 5 % (0-3); HEMATOCRIT 37.3 % (36.0-47.0); LYMPH # 3.9 x10^3/uL (1.0-4.8); LYMPH % 29 % (24-48); MEAN CORPUSCULAR HEMOGLOBIN 28 pg (25-35); MEAN CORPUSCULAR HGB CONC 32 g/dL (31-37); MEAN CORPUSCULAR VOLUME 88 fL (79-100); MONO % 7 % (0-9); NEUT % 59 % (31-73); PLATELET COUNT 312 x10^3/uL (140-400); RED BLOOD COUNT 4.25 x10^6/uL (3.50-5.40); WHITE BLOOD COUNT 13.3 x10^3/uL (4.0-11.0)
[2016-12-23 12:29] LABS: INR 1.3 (0.8-1.1)
--- NOTE | 2016-12-23 12:29 | RAD ---
Portable chest, 12/23/2016: History: Shortness of breath, congestive heart failure Comparison is made to a study from 12/09/2016. The heart is mildly enlarged. Previously seen perihilar-perivascular pulmonary edema has resolved. The pulmonary vascularity is at the upper limits of normal. No pulmonary infiltrate is seen. There is no evidence of pleural fluid. IMPRESSION: 1. Resolution of the previously seen mild pulmonary edema. 2. No acute cardiopulmonary abnormality is detected.
[2016-12-23 12:42] LABS: CALCIUM 9.3 mg/dL (8.5-10.1); CREATININE 1.1 mg/dL (0.6-1.0); GFR 51.8; POTASSIUM 4.4 mmol/L (3.5-5.1)
[2016-12-23 12:48] LABS: ALBUMIN/GLOBULIN RATIO 0.7 (1.0-1.7); TOTAL BILIRUBIN 0.2 mg/dL (0.2-1.0); TOTAL PROTEIN 7.1 g/dL (6.4-8.2)
[2016-12-23] MEDS ORDERED: HEPARIN for IV BOLUS 10,000 UNIT/10 ML VIAL. IV ONE (13:30)
[2016-12-23] MEDS ORDERED: ACETAMINOPHEN 325 MG TABLET. PO PRN (13:30)
[2016-12-23] MEDS ORDERED: HEPARIN for IV BOLUS 10,000 UNIT/10 ML VIAL. IV PRN (13:30)
[2016-12-23] MEDS ORDERED: MORPHINE SULFATE 2 MG/ML DISP.SYRIN. IV PRN (13:30)
[2016-12-23] MEDS ORDERED: FUROSEMIDE 40 MG/4 ML VIAL. IVP ONE (13:30)
[2016-12-23] MEDS ORDERED: ONDANSETRON PF 4 MG/2 ML VIAL. IV PRN (13:30)
[2016-12-23] MEDS: NITROGLYCERIN SUBLINGUAL 0.4 MG BOTTLE OF 25. SL PRN ×2 (13:42→21:32)
[2016-12-23] MEDS: HEPARIN 25,000UTS/500ML PREMIX 500 ML IV PRN (13:47)
[2016-12-23] MEDS: IPRATRPIUM/ALBUTEROL 0.5/2.5MG 3 ML NEBU. NEB SCH ×2 (13:59→19:49)
--- NOTE | 2016-12-23 14:07 | EKG ---
[facility] [address] [place] [address] Test Date: 2016-12-23 Test Time: 11:52:56 Pat Name: EVELIA TAI Department: Room: [facility] Gender: F Toy Stuffer: : 1960 Requested By: RIGOBERTO WONG Order Number: [id number] Reading MD: Danna Enrique Measurements Intervals [place] Rate: 76 P: 44 [place]: 170 QRS: -8 QRSD: 76 T: 86 QT: 386 QTc: 439 Interpretive Statements SINUS RHYTHM LEFTWARD AXIS T ABNORMALITY IN HIGH LATERAL LEADS ABNORMAL ECG Electronically Signed On 12-25-2016 18:55:59 CDT by Danna Enrique
[2016-12-23 14:15] VITALS: BP 154/84
--- NOTE | 2016-12-23 14:27 | PHYS DOC ---
Past Medical History Past Medical History: CHF, COPD, Diabetes-Type II, Heart Disease, Hypertension , [place], Renal Disease, Other Additional Past Medical Histor: BAD VALVE, morbid obesity, REFLEX SYNTHEIC DISTROPHY,SEPSIS Past Surgical History: Angioplasty, Appendectomy, Cholecystectomy, Hysterectomy , Other Additional Past Surgical Histo: thoractomy, lumpectomy, exploratory surgery, hernia, bladder sling, Alcohol Use: None Drug Use: None Adult General Chief Complaint Chief Complaint: SHORTNESS OF BREATH HPI HPI Patient is a 56 year old female who presents with shortness of breath. Patient reports onset of symptoms this morning when she woke up around 9:00. She reports dyspnea at rest worse with exertion. She reports left-sided chest tightness without radiation. She reports increased bilateral lower extremity edema. Denies fevers or chills, cough, nausea, diaphoresis. Reports history of congestive heart failure, reports compliance with medications. She has history of CAD status post cardiac stenting. She also has history of COPD and obstructive sleep apnea, uses oxygen at night and when necessary during the day , with increased oxygen use today prior to arrival in the emergency department, as well as diabetes & hypertension. Former smoker. PCP is Dr. Giles, appraiser personal property is Dr. Major. Review of Systems Review of Systems Constitutional: Denies fever or chills Eyes: Denies change in visual acuity HENT: Denies nasal congestion or sore throat Respiratory: Denies cough, reports shortness of breath Cardiovascular: Reports chest pain & edema GI: Denies abdominal pain, nausea, vomiting, bloody stools or diarrhea : Denies dysuria or hematuria Musculoskeletal: Denies back pain or joint pain Integument: Denies rash or skin lesions Neurologic: Denies headache, focal weakness or sensory changes Current Medications Current Medications Current Medications Medications (Trade) Dose Ordered Sig/Jesus Manuel Start Time Stop Time Status Last Admin Dose Admin Albuterol/ Ipratropium (Duoneb) 3 ml 1X ONCE 12/23/16 12:15 12/23/16 12:16 DC 12/23/16 13:50 3 ML Aspirin (Sanju Aspirin) 325 mg 1X ONCE 12/23/16 12:15 12/23/16 12:16 DC 12/23/16 12:21 325 MG Methylprednisolone Sodium Succinate (Solu-Medrol 125mg Vial) 125 mg 1X ONCE 12/23/16 12:15 12/23/16 12:16 DC 12/23/16 12:22 125 MG Allergies Allergies Allergies Coded Allergies Type Severity Reaction Last Updated Verified No Known Drug Allergies 12/23/16 No Physical Exam Physical Exam Constitutional: Well developed, well nourished, no acute distress, non-toxic appearance. HENT: Normocephalic, atraumatic, bilateral external ears normal, oropharynx moist, nose normal. Eyes: conjunctiva normal, no discharge. Neck: supple, no stridor. Cardiovascular: RRR, no murmurs, edema as below. Lungs & Thorax: diminished but otherwise clear bilaterally, no wheezing, no respiratory distress. Abdomen: soft, nontender, nondistended. Skin: Warm, dry, no erythema, no rash. Back: No tenderness. Extremities: No tenderness, 2+ nonpitting edema to bilateral lower extremities, no unilateral calf tenderness Neurologic: Alert and oriented X 3, no focal deficits noted. Psychologic: Affect normal, judgement normal, mood normal. Current Patient Data Vital Signs Vital Signs Date Time Temp Pulse Resp B/P Pulse Ox O2 Delivery O2 Flow Rate FiO2 12/23/16 11:37 97.5 73 20 145/79 96 97.5 Lab Values Laboratory Tests Test 12/23/16 11:50 White Blood Count 13.3x10^3/uL (4.0-11.0) H Red Blood Count 4.25x10^6/uL (3.50-5.40) Hemoglobin 12.0g/dL (12.0-15.5) Hematocrit 37.3% (36.0-47.0) Mean Corpuscular Volume 88fL (79-100) Mean Corpuscular Hemoglobin 28pg (25-35) Mean Corpuscular Hemoglobin Concent 32g/dL (31-37) Red Cell Distribution Width 13.0% (11.5-14.5) Platelet Count 312x10^3/uL (140-400) Neutrophils (%) (Auto) 59% (31-73) Lymphocytes (%) (Auto) 29% (24-48) Monocytes (%) (Auto) 7% (0-9) Eosinophils (%) (Auto) 5% (0-3) H Basophils (%) (Auto) 1% (0-3) Neutrophils # (Auto) 7.8x10^3uL (1.8-7.7) H Lymphocytes # (Auto) 3.9x10^3/uL (1.0-4.8) Monocytes # (Auto) 0.9x10^3/uL (0.0-1.1) Eosinophils # (Auto) 0.6x10^3/uL (0.0-0.7) Basophils # (Auto) 0.1x10^3/uL (0.0-0.2) Prothrombin Time 15.0SEC (11.7-14.0) H Prothrombin Time INR 1.3 (0.8-1.1) H PTT 35SEC (24-38) Sodium Level 147mmol/L (136-145) H Potassium Level 4.4mmol/L (3.5-5.1) Chloride Level 105mmol/L (98-107) Carbon Dioxide Level 36mmol/L (21-32) H Anion Gap 6 (6-14) Blood Urea Nitrogen 28mg/dL (7-20) H Creatinine 1.1mg/dL (0.6-1.0) H Estimated GFR (Cockcroft-Gault) 51.8 BUN/Creatinine Ratio 25 (6-20) H Glucose Level 197mg/dL (70-99) H Calcium Level 9.3mg/dL (8.5-10.1) Total Bilirubin 0.2mg/dL (0.2-1.0) Aspartate Amino Transferase (AST) 18U/L (15-37) Alanine Aminotransferase (ALT) 26U/L (14-59) Alkaline Phosphatase 107U/L (46-116) Troponin I Quantitative 0.150ng/mL (0.000-0.055) XU-Hfe-C-Type Natriuretic Peptide 978pg/mL (0-124) H Total Protein 7.1g/dL (6.4-8.2) Albumin 3.0g/dL (3.4-5.0) L Albumin/Globulin Ratio 0.7 (1.0-1.7) L Laboratory Tests 12/23/16 11:50 Laboratory Tests 12/23/16 11:50 EKG EKG interpreted by me: NSR rate 76, no acute ST/T wave changes, normal intervals, no ectopy.[] Radiology/Procedures Radiology/Procedures PROCEDURE: CHEST AP ONLY Portable chest, 12/23/2016: History: Shortness of breath, congestive heart failure Comparison is made to a study from 12/09/2016. The heart is mildly enlarged. Previously seen perihilar-perivascular pulmonary edema has resolved. The pulmonary vascularity is at the upper limits of normal. No pulmonary infiltrate is seen. There is no evidence of pleural fluid. IMPRESSION: 1. Resolution of the previously seen mild pulmonary edema. 2. No acute cardiopulmonary abnormality is detected. DICTATED and SIGNED BY: SILVIA RAI MD DATE: 12/23/16 5009[] Course & Med Decision Making Course & Med Decision Making Pertinent Labs and Imaging studies reviewed. (See chart for details) Patient presents with chest pain, dyspnea, edema. Vitals stable, receiving oxygen by nasal cannula with sats in high 90s, no distress. Chest x-ray no significant pulmonary edema. Troponin elevated 0.15, previously within negative range. BNP 900. Discussed with Dr. Major, agrees with initiating heparin drip. Patient did receive aspirin upon arrival. We'll also give Lasix [address] Major agrees to consult. Discussed with Dr. Giles who agrees to admit to inpatient status. Patient admitted in stable condition. Critical care time: 35 minutes [] Dragon Disclaimer Dragon Disclaimer This electronic medical record was generated, in whole or in part, using a voice recognition dictation system. Departure Departure Impression: Primary Impression: NSTEMI (non-ST elevated myocardial infarction) Additional Impression: Acute on chronic congestive heart failure Disposition: ADMITTED INPATIENT Admitting Physician: Chidi Giles Condition: STABLE Problem Qualifiers RIGOBERTO WONG MD Dec 23, 2016 14:27
[2016-12-23] MEDS ORDERED: NITROGLYCERIN SUBLINGUAL 0.4 MG BOTTLE OF 25. SL PRN (15:45)
[2016-12-23] MEDS ORDERED: METOLAZONE 2.5 MG TABLET PO PRN ×2 (15:45→16:25)
--- NOTE | 2016-12-23 16:00 | PDOC2 ---
CONSULT Date of Consult Date of Consult DATE: 12/23/16 TIME: 15:49 Reason for Consult Reason for Consult: Chest pain Referring Physician Referring Physician: Dr Giles Identification/Chief Complaint Chief Complaint Chest pain History of Present Illness Reason for Visit: Pt is a morbidly obese 56 y o Lady with a Hx of CAD, HTN, DM, and multiple medical problems that is a frequent flyer here. The pt developed back pain, chest pain and dyspnea that brought her to the ER. This was different from her previous angina and the EKG did not show acute ST changes however there is a mild elevation of the troponin. No chest pains at this time. Past Medical History Cardiovascular: CAD, CHF, HTN, PA, Other Pulmonary: COPD, Pulmonary embolus, Other CENTRAL NERVOUS SYSTEM: CVA, Periperal neuropathy, Other GI: Other Heme/Onc: No pertinent hx Hepatobiliary: No pertinent hx Psych: Depression, Other Musculoskeletal: low back pain, Osteoarthritis Rheumatologic: Gout Infectious disease: No pertinent hx Renal/: UTI, Urinary Incontinence Endocrine: Diabetes Past Surgical History Past Surgical History: Cholecystectomy, Hernia Repair, Hysterectomy, Other Family History Family History: Coronary Artery Disease, Diabetes Social History ALCOHOL: none Drugs: None Current Problem List Problem List Problems Medical Problems: (1) Acute on chronic congestive heart failure Status: Acute (2) Chest pain Status: Acute (3) NSTEMI (non-ST elevated myocardial infarction) Status: Acute Current Medications Current Medications Current Medications Albuterol/ Ipratropium (Duoneb) 3 ml 1X ONCE NEB Last administered on 13:50; Start 12/23/16 at 12:15; Stop 12/23/16 at 12:16; Status DC Methylprednisolone Sodium Succinate (Solu-Medrol 125mg Vial) 125 mg 1X ONCE IV Last administered on 12/23/16 12:22; Start 12/23/16 at 12:15; Stop 12/23/16 at 12:16; Status DC Aspirin (Sanju Aspirin) 325 mg 1X ONCE PO Last administered on 12/23/16 12:21 ; Start 12/23/16 at 12:15; Stop 12/23/16 at 12:16; Status DC Heparin Sodium (Porcine) 4000 unit 4,000 unit 1X ONCE IV Last administered on 12/23/16 13:45; Start 12/23/16 at 13:30; Stop 12/23/16 at 13:31; Status DC Heparin Sodium/ Dextrose 500 ml @ 0 mls/hr CONT PRN IV SEE I/O RECORD Last administered on 12/23/16 13:47; Start 12/23/16 at 13:30 Heparin Sodium (Porcine) 2,600 unit PRN Q6HRS PRN IV FOR UFH LEVEL LESS THAN 0.2; Start 12/23/16 at 13:30 Furosemide (Lasix) 40 mg 1X ONCE IVP Last administered on 12/23/16 13:43; Start 12/23/16 at 13:30; Stop 12/23/16 at 13:31; Status DC Ondansetron HCl (Zofran) 4 mg PRN Q8HRS PRN IV NAUSEA/VOMITING; Start 12/23/16 at 13:30; Stop 12/24/16 at 13:29 Morphine Sulfate 2 mg PRN Q2HR PRN IV PAIN; Start 12/23/16 at 13:30; Stop at 13:29 Acetaminophen (Tylenol) 650 mg PRN Q4HRS PRN PO FEVER; Start 12/23/16 at 13:30 ; Stop 12/24/16 at 13:29 Nitroglycerin (Nitrostat) 0.4 mg PRN Q5MIN PRN SL CHEST PAIN Last administered on 12/23/16 13:42; Start 12/23/16 at 13:30; Stop 12/24/16 at 13:29 Albuterol/ Ipratropium (Duoneb) 3 ml RTQID NEB ; Start 12/23/16 at 16:00; Stop 12/24/16 at 15:59 Active Scripts Active Clonidine Hcl 0.1 Mg Tablet 0.1 Mg PO BID Duoneb 0.5-3(2.5) Mg/3 Ml (Albuterol/Ipratropium) 3 Ml Ampul.neb 3 Ml NEB RTQID Klor-Con M20 (Potassium Chloride) 20 Meq Tab.er.prt 20 Meq PO TID Bumetanide 1 Mg Tablet 2 Mg PO DAILY Humalog (Insulin Lispro) 100 Unit/1 Ml Insuln.pen 25 Unit SQ TIDACHC Nitrostat (Nitroglycerin) 0.4 Mg Tab.subl 0.4 Mg SL PRN Q5MIN PRN 30 Days Reported Lyrica (Pregabalin) 150 Mg Capsule 1 Cap PO BID Cymbalta (Duloxetine Hcl) 60 Mg Capsule. 1 Cap PO BID Metolazone 2.5 Mg Tablet 2 Mg PO QMWF PRN Lantus (Insulin Glargine,Hum.rec.anlog) 100 Unit/1 Ml Vial 40 Unit SQ DAILY07 Atorvastatin Calcium 20 Mg Tablet 1 Tab PO DAILY Nexium Capsule (Esomeprazole Magnesium) 40 Mg Capsule.dr 1 Cap PO DAILY Isosorbide Mononitrate Er (Isosorbide Mononitrate) 30 Mg Tab.er.24h 1 Tab PO DAILY Aspirin 81 Mg Tab.chew 1 Tab PO DAILY Pradaxa (Dabigatran Etexilate Mesylate) 150 Mg Capsule 1 Cap PO BID Levothyroxine Sodium 50 Mcg Tablet 1 Tab PO DAILY Fenofibrate (Fenofibrate,Micronized) 134 Mg Capsule 1 Cap PO DAILY Zanaflex (Tizanidine Hcl) 4 Mg Capsule 4 Mg PO PRN Q8HRS PRN as needed for muscle cramps no more than every 8hrs Hydrocodone-Apap 10-325 (Hydrocodone Bit/Acetaminophen) 1 Each Tablet 1 Tab PO PRN Q6HRS PRN as needed for pain every 6 hours Allergies Allergies: Coded Allergies: No Known Drug Allergies (Unverified , 12/23/16) Physical Exam General: Alert, Oriented X3, Cooperative HEENT: PERRLA Lungs: Clear to auscultation Heart: Regular rate, Normal S1, Normal S2 Abdomen: Normal bowel sounds, Soft Extremities: Other (chronic stasis changes to both legs) Vitals VITALS Vital Signs Date Time Temp Pulse Resp B/P Pulse Ox O2 Delivery O2 Flow Rate FiO2 12/23/16 13:51 93 Nasal Cannula 2.5 12/23/16 13:42 75 150/69 12/23/16 11:37 97.5 20 97.5 Labs Labs Laboratory Tests Test 12/23/16 11:50 White Blood Count 13.3x10^3/uL (4.0-11.0) Red Blood Count 4.25x10^6/uL (3.50-5.40) Hemoglobin 12.0g/dL (12.0-15.5) Hematocrit 37.3% (36.0-47.0) Mean Corpuscular Volume 88fL (79-100) Mean Corpuscular Hemoglobin 28pg (25-35) Mean Corpuscular Hemoglobin Concent 32g/dL (31-37) Red Cell Distribution Width 13.0% (11.5-14.5) Platelet Count 312x10^3/uL (140-400) Neutrophils (%) (Auto) 59% (31-73) Lymphocytes (%) (Auto) 29% (24-48) Monocytes (%) (Auto) 7% (0-9) Eosinophils (%) (Auto) 5% (0-3) Basophils (%) (Auto) 1% (0-3) Neutrophils # (Auto) 7.8x10^3uL (1.8-7.7) Lymphocytes # (Auto) 3.9x10^3/uL (1.0-4.8) Monocytes # (Auto) 0.9x10^3/uL (0.0-1.1) Eosinophils # (Auto) 0.6x10^3/uL (0.0-0.7) Basophils # (Auto) 0.1x10^3/uL (0.0-0.2) Prothrombin Time 15.0SEC (11.7-14.0) Prothromb Time International Ratio 1.3 (0.8-1.1) Activated Partial Thromboplast Time 35SEC (24-38) Sodium Level 147mmol/L (136-145) Potassium Level 4.4mmol/L (3.5-5.1) Chloride Level 105mmol/L (98-107) Carbon Dioxide Level 36mmol/L (21-32) Anion Gap 6 (6-14) Blood Urea Nitrogen 28mg/dL (7-20) Creatinine 1.1mg/dL (0.6-1.0) Estimated GFR (Cockcroft-Gault) 51.8 BUN/Creatinine Ratio 25 (6-20) Glucose Level 197mg/dL (70-99) Calcium Level 9.3mg/dL (8.5-10.1) Total Bilirubin 0.2mg/dL (0.2-1.0) Aspartate Amino Transf (AST/SGOT) 18U/L (15-37) Alanine Aminotransferase (ALT/SGPT) 26U/L (14-59) Alkaline Phosphatase 107U/L (46-116) Troponin I Quantitative 0.150ng/mL (0.000-0.055) HL-Rdh-C-Type Natriuretic Peptide 978pg/mL (0-124) Total Protein 7.1g/dL (6.4-8.2) Albumin 3.0g/dL (3.4-5.0) Albumin/Globulin Ratio 0.7 (1.0-1.7) Laboratory Tests Test 12/23/16 11:50 White Blood Count 13.3x10^3/uL (4.0-11.0) Red Blood Count 4.25x10^6/uL (3.50-5.40) Hemoglobin 12.0g/dL (12.0-15.5) Hematocrit 37.3% (36.0-47.0) Mean Corpuscular Volume 88fL (79-100) Mean Corpuscular Hemoglobin 28pg (25-35) Mean Corpuscular Hemoglobin Concent 32g/dL (31-37) Red Cell Distribution Width 13.0% (11.5-14.5) Platelet Count 312x10^3/uL (140-400) Neutrophils (%) (Auto) 59% (31-73) Lymphocytes (%) (Auto) 29% (24-48) Monocytes (%) (Auto) 7% (0-9) Eosinophils (%) (Auto) 5% (0-3) Basophils (%) (Auto) 1% (0-3) Neutrophils # (Auto) 7.8x10^3uL (1.8-7.7) Lymphocytes # (Auto) 3.9x10^3/uL (1.0-4.8) Monocytes # (Auto) 0.9x10^3/uL (0.0-1.1) Eosinophils # (Auto) 0.6x10^3/uL (0.0-0.7) Basophils # (Auto) 0.1x10^3/uL (0.0-0.2) Prothrombin Time 15.0SEC (11.7-14.0) Prothromb Time International Ratio 1.3 (0.8-1.1) Activated Partial Thromboplast Time 35SEC (24-38) Sodium Level 147mmol/L (136-145) Potassium Level 4.4mmol/L (3.5-5.1) Chloride Level 105mmol/L (98-107) Carbon Dioxide Level 36mmol/L (21-32) Anion Gap 6 (6-14) Blood Urea Nitrogen 28mg/dL (7-20) Creatinine 1.1mg/dL (0.6-1.0) Estimated GFR (Cockcroft-Gault) 51.8 BUN/Creatinine Ratio 25 (6-20) Glucose Level 197mg/dL (70-99) Calcium Level 9.3mg/dL (8.5-10.1) Total Bilirubin 0.2mg/dL (0.2-1.0) Aspartate Amino Transf (AST/SGOT) 18U/L (15-37) Alanine Aminotransferase (ALT/SGPT) 26U/L (14-59) Alkaline Phosphatase 107U/L (46-116) Troponin I Quantitative 0.150ng/mL (0.000-0.055) KR-Vxt-H-Type Natriuretic Peptide 978pg/mL (0-124) Total Protein 7.1g/dL (6.4-8.2) Albumin 3.0g/dL (3.4-5.0) Albumin/Globulin Ratio 0.7 (1.0-1.7) Assessment/Plan Assessment/Plan Pt with a multitude of medical problems that comes in with chest pains and dyspnea and a possible NonSTEMI. No chest pain at this time. Will check enzymes, an echocardiogram and then make further recommendations. Thank you for asking me to participate in the care of this pt JON WEAVER MD Dec 23, 2016 16:00
[2016-12-23] MEDS: ASPIRIN CHEWABLE 81 MG TABLET. PO SCH (17:00)
[2016-12-23] MEDS: PANTOPRAZOLE 40 MG TABLET.DR. PO SCH (17:00)
[2016-12-23] MEDS: ISOSORBIDE MONONITRATE ER 30 MG TAB.ER.24H PO SCH (17:00)
[2016-12-23] MEDS: FENOFIBRATE,MICRONIZED 134 MG CAPSULE PO SCH (17:00)
[2016-12-23] MEDS: LEVOTHYROXINE 50 MCG TABLET PO SCH (17:00)
[2016-12-23] MEDS ORDERED: DEXTROSE 50% 25 GM / 50ML DISP.SYRIN. IV PRN (17:45)
--- NOTE | 2016-12-23 18:02 | ACF ---
Admission Forms Criteria MYOCARDIAL INFARCTION Clinical Indications for Admission to Inpatient Care (Place 'X' for any and all applicable criteria): Admission is indicated for ANY ONE of the following (1)(2)(3)(4): [X]I. Acute NJ [ ]II. Contraindications and/or Inappropriate clinical situations for Observational Care in patients with Myocardial Infarction, when ANY ONE of the following is required: [ ]a) Patient with High risk of cardiac embolism (e.g, patients with previous cardiac embolism, LVEF < 40%, age >75 and patients with prosthetic valve) 18 [ ]b) Patient with Moderate risk including DM patient, CAD and patient aged 65-75 18 [ ]c) Patient with any change in cardiac biomarker especially troponin should be managed as high risk in an inpatient setting 19 [ ]d) Physician judgement irrespective of ECG and other diagnostic findings 20 [ ]III.General contraindications and/or Inappropriate clinical situations for Observational Care in patients with Myocardial Infarction, when ANY ONE of the following is required: [ ]a) Prediction of prolongation of LOS based on ANY ONE of the following may be considered as a contraindication for observational care 2, 3, 4, 5, 6, 7, 8, 9, 10, 11 [ ]i) Age > 65 yrs. [ ]ii) Patient arriving by ambulance [ ]iii) Patient with high acuity [ ]iv) Patient requiring vital sign monitoring [ ]v) Patient on IV medication [ ]b) Systolic blood pressures 180mmHg 3,12 [ ]c) Patient with altered mental status including delirium and other alteration of consciousness, (3) [ ]d) Patient whose discharge disposition will be to a longterm home or rehabilitation home should not be managed in Emergency Department Observation Unit. CMS rule requires 3 days hospital stay before such placement. 3,13 [ ]e) Patient with failure to thrive due to broad array of etiologies 3 ,16,17 [ ]f) Inability to ambulate 3,14 Extended stay beyond goal length of stay may be needed for (1)(18)(20)(24)(25): [ ]a) Hemodynamic instability, persisting symptoms after intensive medical management, or recurring severe, prolonged symptoms [ ]b) Intravascular procedural complications such as acute vessel closure, stent thrombosis, stent malposition, or vessel dissection (26)(27)(28) [ ]c) Extravascular procedural complications such as retroperitoneal hematoma , pericardial effusion, or cardiac tamponade [ ]d) Entry site complications causing bleeding, hematoma or distal ischemia and requiring ongoing monitoring, surgical repair or surgical thrombectomy(29) [ ]e) Dangerous arrhythmia [ ]f) Complicated percutaneous coronary intervention (e.g., unsuccessful percutaneous coronary intervention or percutaneous coronary intervention of non- [place] vessel) [ ]g) Urgent or emergent surgery for complications of NJ (e.g., ventricular rupture, valvular insufficiency) [ ]h) Surgical revascularization via coronary artery bypass graft [ ]i) Heart failure (e.g., pulmonary edema) [ ]j) Unstable pulmonary comorbidities, including COPD or pneumonia (31) [ ]k) Acute renal failure The original [employer] content created by [employer] has been revised. The portions of the content which have been revised are identified through the use of italic text or in bold, and [facility] [employer] has neither reviewed nor approved the modified material. All other unmodified content is copyright [facility] [employer] Please see references footnoted in the original [facility] [employer] edition 2016 Admission Criteria Met?: Yes RONY WARD Dec 23, 2016 18:02
[2016-12-23] MEDS: INSULIN ASPART 300 UNITS/3 ML INSULN.PEN SQ SCH (18:27)
[2016-12-23 19:15] VITALS: BP 164/88
[2016-12-23] MEDS: DULOXETINE HCL 30 MG CAPSULE.DR. PO SCH (20:52)
[2016-12-23] MEDS: PREGABALIN 75 MG CAPSULE PO SCH (20:52)
[2016-12-23] MEDS: ATORVASTATIN CALCIUM 20 MG TABLET PO SCH (20:52)
[2016-12-23] MEDS: HYDROCODONE/APAP 10/325 TABLET. PO PRN (20:55)
[2016-12-23] MEDS ORDERED: INSULIN ASPART 300 UNITS/3 ML INSULN.PEN SQ ONE (21:00)
[2016-12-23] MEDS ORDERED: DABIGATRAN ETEXILATE 150 MG CAPSULE. PO SCH (21:00)
[2016-12-23] MEDS: tiZANidine 4 MG TABLET. PO PRN (21:03)
[2016-12-23 22:54] VITALS: BP 168/90
[2016-12-24 03:13] VITALS: BP 161/81
[2016-12-24 07:00] VITALS: BP 169/90
[2016-12-24] MEDS: LEVOTHYROXINE 50 MCG TABLET PO SCH (07:15)
[2016-12-24] MEDS: ASPIRIN CHEWABLE 81 MG TABLET. PO SCH (07:15)
[2016-12-24] MEDS: IPRATRPIUM/ALBUTEROL 0.5/2.5MG 3 ML NEBU. NEB SCH ×4 (07:32→20:00)
[2016-12-24] MEDS: PANTOPRAZOLE 40 MG TABLET.DR. PO SCH (07:54)
[2016-12-24] MEDS: HYDROCODONE/APAP 10/325 TABLET. PO PRN ×2 (07:54→20:20)
[2016-12-24] MEDS ORDERED: ACETAMINOPHEN 325 MG TABLET. PO PRN (08:00)
[2016-12-24] MEDS ORDERED: INSULIN DETEMIR 300 UNITS/3 ML INSULN.PEN. SQ SCH (08:00)
[2016-12-24] MEDS ORDERED: ALBUTEROL SULFATE 2.5 MG/3 ML NEBU. NEB PRN (08:00)
[2016-12-24 08:05] LABS: HEMATOCRIT 37.6 % (36.0-47.0); RED BLOOD COUNT 4.24 x10^6/uL (3.50-5.40); RED CELL DISTRIBUTION WIDTH 13.3 % (11.5-14.5); WHITE BLOOD COUNT 12.7 x10^3/uL (4.0-11.0)
[2016-12-24] MEDS ORDERED: ONDANSETRON PF 4 MG/2 ML VIAL. IV PRN (08:30)
--- NOTE | 2016-12-24 08:44 | PDOC ---
Provider Note Provider Note See admission H&P dictation #[id number] Impression: 1. Chest pain with elevated troponin and multiple cardiac risk factors: 2. Diabetes mellitus type 2, uncontrolled: 3. Hypertension: 4. COPD/asthma: 5. Diabetic neuropathy: 6. History of paroxysmal atrial fibrillation: 7. History of CVA: 8. History of coronary artery disease: 9. Hypothyroidism: 10. Colitis: 11. Mild protein malnutrition: 12. Morbid obesity: JOSE BLAKELY MD Dec 24, 2016 08:44
[2016-12-24] MEDS: DULOXETINE HCL 30 MG CAPSULE.DR. PO SCH ×2 (09:06→20:22)
[2016-12-24] MEDS: PREGABALIN 75 MG CAPSULE PO SCH ×2 (09:06→20:20)
[2016-12-24] MEDS: BUMETANIDE 1 MG TABLET. PO SCH (09:06)
[2016-12-24] MEDS: FENOFIBRATE,MICRONIZED 134 MG CAPSULE PO SCH (09:06)
[2016-12-24] MEDS: ISOSORBIDE MONONITRATE ER 30 MG TAB.ER.24H PO SCH (09:07)
[2016-12-24] MEDS: CARVEDILOL 12.5 MG TABLET. PO SCH ×2 (09:07→16:46)
[2016-12-24] MEDS: INSULIN DETEMIR 300 UNITS/3 ML INSULN.PEN. SQ SCH ×2 (09:14→20:23)
[2016-12-24] MEDS: INSULIN ASPART 300 UNITS/3 ML INSULN.PEN SQ SCH ×5 (09:15→17:52)
--- NOTE | 2016-12-24 10:09 | HP ---
ADMIT DATE: 12/24/2016 ATTENDING PHYSICIAN: Jose Blakely M.D. CHIEF COMPLAINT: Chest pain. HISTORY OF PRESENT ILLNESS: The patient is a 56-year-old female with multiple cardiac risk factors and prior coronary artery disease who had the onset during the night prior to admission of chest pain. It felt like somebody was standing on her chest. It radiated through to her back. It woke her up out of the sleep. She had associated shortness of breath and dizziness. She did note when she took her blood pressures that it was 265/145. When she subsequently received nitroglycerin that seemed to relieve the pain. She states that she has been compliant with her medications and has not missed any doses. She was not having any shortness of breath or cough prior to this. PAST MEDICAL HISTORY: Significant for diabetes mellitus type 2, hyperlipidemia, obstructive sleep apnea for which she cannot tolerate CPAP, pulmonary embolism, coronary artery disease, status post stent placement; gastroesophageal reflux disease, carotid artery stenosis with approximately 40-60% stenosis on the right side, hypothyroidism, gout, paroxysmal atrial fibrillation, kidney stones, COPD/asthma, hypertension, CVA with some minimal residual deficits which appears to be improving, diabetic peripheral neuropathy, overactive bladder, morbid obesity, chronic low back pain, chronic kidney disease stage 3. PAST SURGICAL HISTORY: Hysterectomy and bilateral oophorectomies, appendectomy, right thoracotomy for reflex sympathetic dystrophy, breast lumpectomies x 2 which were benign, cholecystectomy, right wrist surgery, coronary artery stent placement, bladder suspension twice. SOCIAL HISTORY: She lives at home with her family. She denies any alcohol or tobacco use. She did smoke in the past, but has not smoked for at least 5 years. She is on disability. FAMILY HISTORY: Mother with diabetes and heart disease. Father with diabetes and heart disease. ALLERGIES TO MEDICATIONS: No known drug allergies. MEDICATIONS: At the time of admission include aspirin 81 mg p.o. daily, Lipitor 20 mg p.o. daily, Pradaxa 150 mg p.o. b.i.d., Cymbalta 60 mg p.o. b.i.d., Nexium 40 mg p.o. daily, fenofibrate 134 mg p.o. daily, [place] 10/325 one p.o. q. 6 hours. p.r.n., Lantus 40 units subcutaneously b.i.d., Humalog 27 units subcutaneously t.i.d. with meals, Imdur 30 mg p.o. daily, levothyroxine 50 mcg p.o. daily, Zaroxolyn 2.5 mg p.o. on Mondays, Wednesdays and Fridays, nitroglycerin 0.4 mg sublingual q. 5 minutes p.r.n., Lyrica 150 mg p.o. b.i.d., Zanaflex 4 mg p.o. t.i.d. p.r.n., Bystolic 10 mg p.o. daily, Bumex 2 mg p.o. daily, DuoNeb q.i.d. REVIEW OF SYSTEMS: The patient denies any fevers. She has not had any significant upper respiratory congestion. No recent vision changes. She is swallowing without difficulty at present. She has not had any significant cough. Her breathing had been doing relatively well until her episodes of chest pain. She has been having some palpitations and a fluttering sensation in her chest intermittently and when she was having her chest pain, she has lower extremity swelling, which is relatively constant. She denies any heartburn or reflux at present. She was just given a prescription for Flagyl for a possible colon infection by GI, although she had not started that prescription yet. She has been voiding without any difficulty. She denies any dysuria or hematuria. She denies any new focal paresthesias or weakness. Her mood has been good and stable. The patient does have CPAP, but she is intolerant to wearing her CPAP and has not used it. PHYSICAL EXAMINATION: VITAL SIGNS: At the time of admission, temperature 97.5, pulse 73, respiratory rate 20, blood pressure 145/79. O2 sat 96% on 2 liters nasal cannula. GENERAL: The patient is a well-developed, obese female, in no acute distress. She is alert and oriented. HEENT: The pupils are equal and round. The extraocular motions are intact. The sclerae are anicteric. The oropharynx is moist. NECK: Without JVD, but it is obese. There is no palpable thyromegaly. CHEST: Decreased air movement throughout, but otherwise clear. CARDIOVASCULAR: The heart has a regular rate and rhythm at present, but distant heart . No appreciable murmur at present. ABDOMEN: Obese and nontender. There is no guarding or rebound. EXTREMITIES: Have minimal pitting edema bilaterally in the lower legs. There is some venous stasis discoloration with her legs hanging down. NEUROLOGIC: No new focal deficits. She moves the extremities symmetrically. PSYCHIATRIC: Mood and affect are appropriate. LABORATORY DATA: At the time of admission, WBC 13.3, hemoglobin 12.0, hematocrit 37.3, platelets 312. INR is 1.3. Sodium 147, potassium 4.4, chloride 105, CO2 36, BUN 28, creatinine 1.1, glucose 197. LFTs are within normal limits. BNP is 978, albumin was 3.0. Chest x-ray did not show any acute abnormality. There is pulmonary vascularity at the upper limits of normal, no infiltrate or pleural fluid. EKG shows a normal sinus rhythm with a rate of [address]-T wave changes on preliminary read. Initial troponin was 0.150, which is peaked at 0.767 this morning. IMPRESSION: 1. Chest pain with elevated troponins and multiple cardiac risk factors. 2. Diabetes mellitus type 2, uncontrolled. 3. Hypertension. 4. Chronic obstructive pulmonary disease/asthma. 6. Diabetic neuropathy. 7. History of paroxysmal atrial fibrillation. 8. History of cerebrovascular accident. 9. History of coronary artery disease, status post stent placement in the past. 10. Hypothyroidism. 11. Morbid obesity. 12. Mild protein malnutrition. PLAN: The patient is admitted. She is seen in consultation with Cardiology, will continue her usual insulin regimen, but decrease the doses somewhat due to, usually, she does not require as much insulin when she is on a diabetic hospital diet. We will obtain an echocardiogram per Cardiology's recommendations. Most likely, she will need some sort of stress testing or catheterization, but I will defer to Dr. Major, Cardiology regarding that. I will continue her other home medications and make adjustments as needed. JOSE BLAKELY MD DR: GONZALO/apolinar JOB#: [id number] / [id number]
[2016-12-24] MEDS: METRONIDAZOLE 500 MG TABLET. PO SCH ×3 (10:17→22:47)
[2016-12-24 11:00] VITALS: BP 160/96
[2016-12-24] MEDS ORDERED: INSULIN ASPART 300 UNITS/3 ML INSULN.PEN SQ SCH (11:30)
[2016-12-24] MEDS: HEPARIN 25,000UTS/500ML PREMIX 500 ML IV PRN (12:44)
[2016-12-24] MEDS ORDERED: HEPARIN for IV BOLUS 10,000 UNIT/10 ML VIAL. IV PRN (13:30)
[2016-12-24] MEDS: ANTI-COAG MONITOR BY PHARMACY. MC PRN (13:55)
--- NOTE | 2016-12-24 14:20 | PDOC ---
PROGRESS NOTES Subjective Subjective Patient had some intermittent chest pains. Her blood sugars have been running over 500. No chest pains at this time. We had a talk. Objective Objective Vital Signs Date Time Temp Pulse Resp B/P Pulse Ox O2 Delivery O2 Flow Rate FiO2 12/24/16 11:38 92 Room Air 12/24/16 11:00 97.8 88 20 160/96 2.0 97.8 Intake and Output 12/24/16 06:59 Intake Total 680 ml Output Total 1950 ml Balance -1270 ml Intake Oral 680 ml Output Urine Total 1950 ml # Bowel Movements 3 Physical Exam Physical Exam No significant changes in cardiac exam Assessment Assessment This patient may have had a non-STEMI and in my opinion she needs to have a heart catheterization however I would not want to take her to the [facility] with such high blood sugars therefore I would like to wait until at least Monday before doing the heart catheter so that the patient has time to get her diabetes better controlled. Problems Medical Problems: (1) Acute on chronic congestive heart failure Status: Acute (2) Chest pain Status: Acute (3) NSTEMI (non-ST elevated myocardial infarction) Status: Acute Comment Review of Relevant I have reviewed the following items jim (where applicable) has been applied. Labs Laboratory Tests Test 12/23/16 11:50 12/23/16 16:55 12/23/16 19:08 12/23/16 20:34 White Blood Count 13.3x10^3/uL (4.0-11.0) Red Blood Count 4.25x10^6/uL (3.50-5.40) Hemoglobin 12.0g/dL (12.0-15.5) Hematocrit 37.3% (36.0-47.0) Mean Corpuscular Volume 88fL (79-100) Mean Corpuscular Hemoglobin 28pg (25-35) Mean Corpuscular Hemoglobin Concent 32g/dL (31-37) Red Cell Distribution Width 13.0% (11.5-14.5) Platelet Count 312x10^3/uL (140-400) Neutrophils (%) (Auto) 59% (31-73) Lymphocytes (%) (Auto) 29% (24-48) Monocytes (%) (Auto) 7% (0-9) Eosinophils (%) (Auto) 5% (0-3) Basophils (%) (Auto) 1% (0-3) Neutrophils # (Auto) 7.8x10^3uL (1.8-7.7) Lymphocytes # (Auto) 3.9x10^3/uL (1.0-4.8) Monocytes # (Auto) 0.9x10^3/uL (0.0-1.1) Eosinophils # (Auto) 0.6x10^3/uL (0.0-0.7) Basophils # (Auto) 0.1x10^3/uL (0.0-0.2) Prothrombin Time 15.0SEC (11.7-14.0) Prothromb Time International Ratio 1.3 (0.8-1.1) Activated Partial Thromboplast Time 35SEC (24-38) Sodium Level 147mmol/L (136-145) Potassium Level 4.4mmol/L (3.5-5.1) Chloride Level 105mmol/L (98-107) Carbon Dioxide Level 36mmol/L (21-32) Anion Gap 6 (6-14) Blood Urea Nitrogen 28mg/dL (7-20) Creatinine 1.1mg/dL (0.6-1.0) Estimated GFR (Cockcroft-Gault) 51.8 BUN/Creatinine Ratio 25 (6-20) Glucose Level 197mg/dL (70-99) Calcium Level 9.3mg/dL (8.5-10.1) Total Bilirubin 0.2mg/dL (0.2-1.0) Aspartate Amino Transf (AST/SGOT) 18U/L (15-37) Alanine Aminotransferase (ALT/SGPT) 26U/L (14-59) Alkaline Phosphatase 107U/L (46-116) Troponin I Quantitative 0.150ng/mL (0.000-0.055) 0.089ng/mL (0.000-0.055) JF-Bir-F-Type Natriuretic Peptide 978pg/mL (0-124) Total Protein 7.1g/dL (6.4-8.2) Albumin 3.0g/dL (3.4-5.0) Albumin/Globulin Ratio 0.7 (1.0-1.7) Glucose (Fingerstick) 292mg/dL (70-99) 478mg/dL (70-99) Test 4/1/17 01:30 12/24/16 07:24 12/24/16 08:00 12/24/16 11:28 Troponin I Quantitative 0.767ng/mL (0.000-0.055) Glucose (Fingerstick) 440mg/dL (70-99) 540mg/dL (70-99) White Blood Count 12.7x10^3/uL (4.0-11.0) Red Blood Count 4.24x10^6/uL (3.50-5.40) Hemoglobin 12.0g/dL (12.0-15.5) Hematocrit 37.6% (36.0-47.0) Mean Corpuscular Volume 89fL (79-100) Mean Corpuscular Hemoglobin 28pg (25-35) Mean Corpuscular Hemoglobin Concent 32g/dL (31-37) Red Cell Distribution Width 13.3% (11.5-14.5) Platelet Count 297x10^3/uL (140-400) Heparin Anti-Xa Act, Unfractionated 0.17IU/mL (0.30-0.70) Laboratory Tests Test 12/23/16 16:55 12/23/16 19:08 12/23/16 20:34 12/24/16 01:30 Glucose (Fingerstick) 292mg/dL (70-99) 478mg/dL (70-99) Troponin I Quantitative 0.089ng/mL (0.000-0.055) 0.767ng/mL (0.000-0.055) Test 12/24/16 07:24 12/24/16 08:00 12/24/16 11:28 Glucose (Fingerstick) 440mg/dL (70-99) 540mg/dL (70-99) White Blood Count 12.7x10^3/uL (4.0-11.0) Red Blood Count 4.24x10^6/uL (3.50-5.40) Hemoglobin 12.0g/dL (12.0-15.5) Hematocrit 37.6% (36.0-47.0) Mean Corpuscular Volume 89fL (79-100) Mean Corpuscular Hemoglobin 28pg (25-35) Mean Corpuscular Hemoglobin Concent 32g/dL (31-37) Red Cell Distribution Width 13.3% (11.5-14.5) Platelet Count 297x10^3/uL (140-400) Heparin Anti-Xa Act, Unfractionated 0.17IU/mL (0.30-0.70) Medications Current Medications Albuterol/ Ipratropium (Duoneb) 3 ml 1X ONCE NEB Last administered on 13:50; Start 12/23/16 at 12:15; Stop 12/23/16 at 12:16; Status DC Methylprednisolone Sodium Succinate (Solu-Medrol 125mg Vial) 125 mg 1X ONCE IV Last administered on 12/23/16 12:22; Start 12/23/16 at 12:15; Stop 12/23/16 at 12:16; Status DC Aspirin (Sanju Aspirin) 325 mg 1X ONCE PO Last administered on 12/23/16 12:21 ; Start 12/23/16 at 12:15; Stop 12/23/16 at 12:16; Status DC Heparin Sodium (Porcine) 4000 unit 4,000 unit 1X ONCE IV Last administered on 12/23/16 13:45; Start 12/23/16 at 13:30; Stop 12/23/16 at 13:31; Status DC Heparin Sodium/ Dextrose 500 ml @ 0 mls/hr CONT PRN IV SEE I/O RECORD Last administered on 12/24/16 12:44; Start 12/23/16 at 13:30 Heparin Sodium (Porcine) 2,600 unit PRN Q6HRS PRN IV FOR UFH LEVEL LESS THAN 0.2; Start 12/23/16 at 13:30; Stop 12/24/16 at 13:16; Status DC Furosemide (Lasix) 40 mg 1X ONCE IVP Last administered on 12/23/16 13:43; Start 12/23/16 at 13:30; Stop 12/23/16 at 13:31; Status DC Ondansetron HCl (Zofran) 4 mg PRN Q8HRS PRN IV NAUSEA/VOMITING; Start 12/23/16 at 13:30; Stop 12/24/16 at 08:49; Status DC Morphine Sulfate 2 mg PRN Q2HR PRN IV PAIN Last administered on 12/24/16 04:38 ; Start 12/23/16 at 13:30; Stop 12/24/16 at 13:29; Status DC Acetaminophen (Tylenol) 650 mg PRN Q4HRS PRN PO FEVER; Start 12/23/16 at 13:30 ; Stop 12/24/16 at 12:55; Status DC Nitroglycerin (Nitrostat) 0.4 mg PRN Q5MIN PRN SL CHEST PAIN Last administered on 12/23/16 21:32; Start 12/23/16 at 13:30; Stop 12/24/16 at 08:35; Status DC Albuterol/ Ipratropium (Duoneb) 3 ml RTQID NEB Last administered on 12/24/16 07 :32; Start 12/23/16 at 16:00; Stop 12/24/16 at 08:35; Status DC Aspirin (Children'S Aspirin) 81 mg DAILY07 PO Last administered on 12/24/16 07: 15; Start 12/23/16 at 17:00 Atorvastatin Calcium (Lipitor) 20 mg QHS PO Last administered on 12/23/16 20: 52; Start 12/23/16 at 21:00 Dabigatran (Pradaxa) 150 mg BID PO ; Start 12/23/16 at 21:00; Status UNV Fenofibrate (Lofibra) 134 mg DAILY PO Last administered on 12/24/16 09:06; Start 12/23/16 at 17:00 Acetaminophen/ Hydrocodone Bitart (Lortab 10/325) 1 tab PRN Q6HRS PRN PO PAIN Last administered on 12/24/16 07:54; Start 12/23/16 at 15:45 Isosorbide Mononitrate (Imdur) 30 mg DAILY PO Last administered on 12/24/16 09: 07; Start 12/23/16 at 17:00 Levothyroxine Sodium (Synthroid) 50 mcg DAILY07 PO Last administered on 07:15; Start 12/23/16 at 17:00 Metolazone (Zaroxolyn) 2 mg PRN Q48HR PRN PO AD; Start 12/23/16 at 15:45; Stop 12/23/16 at 16:25; Status DC Nitroglycerin (Nitrostat) 0.4 mg PRN Q5MIN PRN SL CP RATING > 1/10; Start 12/23 at 15:45 Duloxetine HCl (Cymbalta) 60 mg BID PO Last administered on 12/24/16 09:06; Start 12/23/16 at 21:00 Pantoprazole Sodium (Protonix) 40 mg DAILYAC PO Last administered on 12/24/16 07:54; Start 12/23/16 at 17:00 Insulin Detemir (Levemir) 40 units DAILY08 SQ ; Start 12/24/16 at 08:00; Stop 12/24/16 at 08:29; Status DC Pregabalin (Lyrica) 150 mg BID PO Last administered on 12/24/16 09:06; Start at 21:00 Tizanidine HCl (Zanaflex) 4 mg PRN Q8HRS PRN PO MUSCLE SPASMS Last administered on 12/23/16 21:03; Start 12/23/16 at 16:30 Metolazone (Zaroxolyn) 2.5 mg PRN Q48HR PRN PO AD; Start 12/23/16 at 16:25; Stop 12/26/16 at 09:00 Insulin Aspart (Novolog) 0-7 UNITS TIDWMEALS SQ Last administered on 12/24/16 12:43; Start 12/23/16 at 17:45 Dextrose (Dextrose 50%-Water Syringe) 12.5 gm PRN Q15MIN PRN IV SEE COMMENTS; Start 12/23/16 at 17:45 Insulin Aspart (Novolog) 8 units 1X ONCE SQ Last administered on 12/23/16 20: 58; Start 12/23/16 at 21:00; Stop 12/23/16 at 21:01; Status DC Insulin Detemir (Levemir) 30 units BID SQ Last administered on 12/24/16 09:14; Start 12/24/16 at 09:00 Metolazone (Zaroxolyn) 2.5 mg 3X/WEEK PO ; Start 12/26/16 at 09:00 Albuterol/ Ipratropium (Duoneb) 3 ml RTQID NEB Last administered on 12/24/16 11 :38; Start 12/24/16 at 12:00 Albuterol Sulfate (Ventolin Neb Soln) 2.5 mg PRN Q4HRS PRN NEB SHORTNESS OF BREATH; Start 12/24/16 at 08:00 Acetaminophen (Tylenol) 650 mg PRN Q6HRS PRN PO MILD PAIN; Start 12/24/16 at 08: 00 Carvedilol (Coreg) 12.5 mg BIDWMEALS PO Last administered on 12/24/16 09:07; Start 12/24/16 at 09:00 Bumetanide (Bumex) 2 mg DAILY PO Last administered on 12/24/16 09:06; Start 12/24/16 at 09:00 Insulin Aspart (Novolog) 15 units TIDAC SQ ; Start 12/24/16 at 11:30; Stop at 12:00; Status DC Metronidazole (Flagyl) 500 mg Q8HRS PO Last administered on 12/24/16 10:17; Start 12/24/16 at 10:00 Ondansetron HCl (Zofran) 4 mg PRN Q6HRS PRN IV NAUSEA/VOMITING; Start 12/24/16 at 08:30 Insulin Aspart (Novolog) 25 units TIDAC SQ Last administered on 12/24/16 12:43 ; Start 12/24/16 at 12:30 Heparin Sodium (Porcine) (Heparin Sodium) 2,600 unit PRN Q6HRS PRN IV FOR UFH LEVEL LESS THAN 0.2; Start 12/24/16 at 13:15; Stop 12/24/16 at 13:16; Status DC Heparin Sodium (Porcine) (Heparin Sodium) 2,600 unit PRN Q6HRS PRN IV FOR UFH LEVEL LESS THAN 0.2; Start 12/24/16 at 13:30 Info (Anti-Coagulation Monitoring By Pharmacy) 1 each PRN DAILY PRN MC SEE COMMENTS Last administered on 12/24/16 13:55; Start 12/24/16 at 14:00 Active Scripts Active Nitrostat (Nitroglycerin) 0.4 Mg Tab.subl 0.4 Mg SL PRN Q5MIN PRN 30 Days Reported Lyrica (Pregabalin) 150 Mg Capsule 1 Cap PO BID Cymbalta (Duloxetine Hcl) 60 Mg Capsule.dr 1 Cap PO BID Metolazone 2.5 Mg Tablet 2 Mg PO QMWF PRN Lantus (Insulin Glargine,Hum.rec.anlog) 100 Unit/1 Ml Vial 40 Unit SQ DAILY07 Atorvastatin Calcium 20 Mg Tablet 1 Tab PO DAILY Nexium Capsule (Esomeprazole Magnesium) 40 Mg Capsule.dr 1 Cap PO DAILY Isosorbide Mononitrate Er (Isosorbide Mononitrate) 30 Mg Tab.er.24h 1 Tab PO DAILY Aspirin 81 Mg Tab.chew 1 Tab PO DAILY Pradaxa (Dabigatran Etexilate Mesylate) 150 Mg Capsule 1 Cap PO BID Levothyroxine Sodium 50 Mcg Tablet 1 Tab PO DAILY Fenofibrate (Fenofibrate,Micronized) 134 Mg Capsule 1 Cap PO DAILY Zanaflex (Tizanidine Hcl) 4 Mg Capsule 4 Mg PO PRN Q8HRS PRN as needed for muscle cramps no more than every 8hrs Hydrocodone-Apap 10-325 (Hydrocodone Bit/Acetaminophen) 1 Each Tablet 1 Tab PO PRN Q6HRS PRN as needed for pain every 6 hours Vitals/I & O Vital Sign - Last 24 Hours 12/23/16 12/23/16 12/23/16 12/23/16 19:15 19:29 19:49 20:55 Temp 98.0 98.0 Pulse 91 Resp 18 20 B/P 164/88 Pulse Ox 95 O2 Delivery Nasal Cannula Nasal Cannula Nasal Cannula Nasal Cannula O2 Flow Rate 2.5 2.5 2.5 2.5 12/23/16 12/23/16 12/23/16 12/24/16 21:32 21:55 22:54 03:13 Temp 98.6 97.4 98.6 97.4 Pulse 104 99 75 Resp 18 B/P 164/88 168/90 161/81 Pulse Ox 94 94 O2 Delivery Nasal Cannula Nasal Cannula O2 Flow Rate 2.5 2.5 2.0 12/24/16 12/24/16 12/24/16 12/24/16 04:38 05:08 07:00 07:33 Temp 97.9 97.9 Pulse 84 Resp 20 18 B/P 169/90 Pulse Ox 89 92 O2 Delivery Room Air Room Air Nasal Cannula Room Air O2 Flow Rate 2.0 12/24/16 12/24/16 12/24/16 12/24/16 07:54 08:00 08:54 09:07 B/P 169/90 O2 Delivery Room Air Nasal Cannula Room Air O2 Flow Rate 2.0 12/24/16 12/24/16 12/24/16 09:07 11:00 11:38 Temp 97.8 97.8 Pulse 88 Resp 20 B/P 169/90 160/96 Pulse Ox 93 92 O2 Delivery Nasal Cannula Room Air O2 Flow Rate 2.0 Intake and Output 12/23/16 12/23/16 12/24/16 14:59 22:59 06:59 Intake Total 480 ml 200 ml Output Total 950 ml 1000 ml Balance -470 ml -800 ml JON WEAVER MD Dec 24, 2016 14:20
--- NOTE | 2016-12-24 14:25 | PDOC ---
MODERATE SEDATION ASSESSMENT RISKS/ALTERNATIVES Risks/Alternatives Risks and alternatives of this type of sedation and procedure discussed with: RISK/ALTERNATIVES: Patient H & P ON CHART H & P H & P on chart and reviewed for co-morbid conditions and appropriate labs. H&P ON CHART: Yes STATUS PREG STATUS ASSESSED: Yes MEDS/ALLERGIES REVIEWED Meds/Allergies Reviewed Medications and Allergies including time and route of recently administered narcotics and sedatives. MEDS/ALLERGIES REVIEWED: Yes ASA RATING ASA RATING: II AIRWAY ASSESSMENT Airway Assessment Airway patency, oral function limitations, presence of caps, crowns, dentures, partials, and ability to extend neck assessed. AIRWAY ASSESSMENT: Yes MALLAMPATI SCORE MALLAMPATI SCORE: II PRE-SEDATION ASSESSMENT PRE-SEDATION ASSESSMENT: Yes JON WEAVER MD Dec 24, 2016 14:25
[2016-12-24 15:24] VITALS: BP 146/74
[2016-12-24] MEDS: tiZANidine 4 MG TABLET. PO PRN (16:46)
[2016-12-24 18:56] VITALS: BP 127/73
[2016-12-24] MEDS: ATORVASTATIN CALCIUM 20 MG TABLET PO SCH (20:20)
[2016-12-24 22:49] VITALS: BP 138/67
[2016-12-25 03:50] VITALS: BP 142/71
[2016-12-25] MEDS: tiZANidine 4 MG TABLET. PO PRN ×2 (03:54→16:58)
[2016-12-25] MEDS: HYDROCODONE/APAP 10/325 TABLET. PO PRN ×2 (03:55→16:58)
[2016-12-25] MEDS: HEPARIN 25,000UTS/500ML PREMIX 500 ML IV PRN (03:58)
[2016-12-25] MEDS: METRONIDAZOLE 500 MG TABLET. PO SCH ×3 (05:13→21:04)
[2016-12-25] MEDS: LEVOTHYROXINE 50 MCG TABLET PO SCH (05:13)
[2016-12-25] MEDS: ASPIRIN CHEWABLE 81 MG TABLET. PO SCH (05:14)
[2016-12-25 07:20] VITALS: BP 147/73
[2016-12-25] MEDS: IPRATRPIUM/ALBUTEROL 0.5/2.5MG 3 ML NEBU. NEB SCH ×4 (08:11→20:00)
[2016-12-25 08:14] LABS: BASO # 0.1 x10^3/uL (0.0-0.2); BASO % 0 % (0-3); EOS % 2 % (0-3); HEMATOCRIT 33.4 % (36.0-47.0); HEMOGLOBIN 10.8 g/dL (12.0-15.5); LYMPH # 4.1 x10^3/uL (1.0-4.8); LYMPH % 26 % (24-48); MEAN CORPUSCULAR HEMOGLOBIN 29 pg (25-35); MEAN CORPUSCULAR HGB CONC 32 g/dL (31-37); MEAN CORPUSCULAR VOLUME 89 fL (79-100); MONO % 5 % (0-9); NEUT % 66 % (31-73); PLATELET COUNT 275 x10^3/uL (140-400); RED BLOOD COUNT 3.75 x10^6/uL (3.50-5.40); RED CELL DISTRIBUTION WIDTH 13.4 % (11.5-14.5); WHITE BLOOD COUNT 15.6 x10^3/uL (4.0-11.0)
[2016-12-25 08:24] LABS: CALCIUM 9.5 mg/dL (8.5-10.1); CREATININE 1.4 mg/dL (0.6-1.0); GFR 39.2; INR 1.1 (0.8-1.1); POTASSIUM 3.9 mmol/L (3.5-5.1); PROTHROMBIN TIME PATIENT 13.6 SEC (11.7-14.0)
[2016-12-25] MEDS: DULOXETINE HCL 30 MG CAPSULE.DR. PO SCH ×2 (08:47→21:04)
[2016-12-25] MEDS: CARVEDILOL 12.5 MG TABLET. PO SCH ×2 (08:48→16:59)
[2016-12-25] MEDS: PANTOPRAZOLE 40 MG TABLET.DR. PO SCH (08:48)
[2016-12-25] MEDS: ISOSORBIDE MONONITRATE ER 30 MG TAB.ER.24H PO SCH (08:48)
[2016-12-25] MEDS: FENOFIBRATE,MICRONIZED 134 MG CAPSULE PO SCH (08:49)
[2016-12-25] MEDS: BUMETANIDE 1 MG TABLET. PO SCH (08:49)
[2016-12-25] MEDS: PREGABALIN 75 MG CAPSULE PO SCH ×2 (08:49→21:05)
[2016-12-25 08:55] LABS: FREE T4 0.96 ng/dL (0.76-1.46)
[2016-12-25] MEDS: INSULIN ASPART 300 UNITS/3 ML INSULN.PEN SQ SCH ×6 (08:55→17:19)
[2016-12-25] MEDS: INSULIN DETEMIR 300 UNITS/3 ML INSULN.PEN. SQ SCH ×2 (08:56→21:08)
[2016-12-25 11:06] VITALS: BP 115/64
[2016-12-25] MEDS: ANTI-COAG MONITOR BY PHARMACY. MC PRN (14:28)
--- NOTE | 2016-12-25 14:49 | PDOC ---
PROGRESS NOTES Subjective Subjective Patient's blood sugars are up and down. No chest pains now. She is not very receptive to being told about what she needs to do for diet and helping control her diabetes Objective Objective Vital Signs Date Time Temp Pulse Resp B/P Pulse Ox O2 Delivery O2 Flow Rate FiO2 12/25/16 12:03 Room Air 12/25/16 11:06 98.0 65 14 115/64 94 98.0 12/25/16 08:00 2.0 Intake and Output 12/25/16 06:59 Intake Total 2114 ml Output Total 3800 ml Balance -1686 ml Intake Oral 1560 ml IV Total 554 ml Output Urine Total 3800 ml Physical Exam Physical Exam No significant changes in cardiac exam Assessment Assessment This patient with her noncompliance in diet medications and exercise to control her diabetes is making it very difficult situation for herself. I am quite concerned that in her condition to do a heart catheterization at this point would carry more risks than benefits. I discussed the case with Dr. Giles and we decided to treat her medically at this point and after her diabetes and overall condition is better controlled and stable then consider bringing her back for a heart catheterization as an outpatient. I have explained this to the patient and she is not very happy about it. Her response to what I told her was but I'm just going to stop eating. At this point and is controlling her think about what we discussed and then talk to her some more tomorrow. I would not recommend to do a heart catheterization in the morning at this point. Problems Medical Problems: (1) Acute on chronic congestive heart failure Status: Acute (2) Chest pain Status: Acute (3) NSTEMI (non-ST elevated myocardial infarction) Status: Acute Comment Review of Relevant I have reviewed the following items jim (where applicable) has been applied. Labs Laboratory Tests Test 12/23/16 16:55 12/23/16 19:08 12/23/16 20:34 12/24/16 01:30 Glucose (Fingerstick) 292mg/dL (70-99) 478mg/dL (70-99) Troponin I Quantitative 0.089ng/mL (0.000-0.055) 0.767ng/mL (0.000-0.055) Test 12/24/16 07:24 12/24/16 08:00 12/24/16 11:28 12/24/16 17:11 Glucose (Fingerstick) 440mg/dL (70-99) 540mg/dL (70-99) 471mg/dL (70-99) White Blood Count 12.7x10^3/uL (4.0-11.0) Red Blood Count 4.24x10^6/uL (3.50-5.40) Hemoglobin 12.0g/dL (12.0-15.5) Hematocrit 37.6% (36.0-47.0) Mean Corpuscular Volume 89fL (79-100) Mean Corpuscular Hemoglobin 28pg (25-35) Mean Corpuscular Hemoglobin Concent 32g/dL (31-37) Red Cell Distribution Width 13.3% (11.5-14.5) Platelet Count 297x10^3/uL (140-400) Heparin Anti-Xa Act, Unfractionated 0.17IU/mL (0.30-0.70) Test 12/24/16 20:19 12/25/16 07:41 12/25/16 08:00 12/25/16 11:47 Glucose (Fingerstick) 494mg/dL (70-99) 293mg/dL (70-99) 301mg/dL (70-99) White Blood Count 15.6x10^3/uL (4.0-11.0) Red Blood Count 3.75x10^6/uL (3.50-5.40) Hemoglobin 10.8g/dL (12.0-15.5) Hematocrit 33.4% (36.0-47.0) Mean Corpuscular Volume 89fL (79-100) Mean Corpuscular Hemoglobin 29pg (25-35) Mean Corpuscular Hemoglobin Concent 32g/dL (31-37) Red Cell Distribution Width 13.4% (11.5-14.5) Platelet Count 275x10^3/uL (140-400) Neutrophils (%) (Auto) 66% (31-73) Lymphocytes (%) (Auto) 26% (24-48) Monocytes (%) (Auto) 5% (0-9) Eosinophils (%) (Auto) 2% (0-3) Basophils (%) (Auto) 0% (0-3) Neutrophils # (Auto) 10.3x10^3uL (1.8-7.7) Lymphocytes # (Auto) 4.1x10^3/uL (1.0-4.8) Monocytes # (Auto) 0.8x10^3/uL (0.0-1.1) Eosinophils # (Auto) 0.3x10^3/uL (0.0-0.7) Basophils # (Auto) 0.1x10^3/uL (0.0-0.2) Prothrombin Time 13.6SEC (11.7-14.0) Prothromb Time International Ratio 1.1 (0.8-1.1) Activated Partial Thromboplast Time 51SEC (24-38) Heparin Anti-Xa Act, Unfractionated 0.23IU/mL (0.30-0.70) Sodium Level 140mmol/L (136-145) Potassium Level 3.9mmol/L (3.5-5.1) Chloride Level 101mmol/L (98-107) Carbon Dioxide Level 35mmol/L (21-32) Anion Gap 4 (6-14) Blood Urea Nitrogen 35mg/dL (7-20) Creatinine 1.4mg/dL (0.6-1.0) Estimated GFR (Cockcroft-Gault) 39.2 Glucose Level 326mg/dL (70-99) Calcium Level 9.5mg/dL (8.5-10.1) Thyroid Stimulating Hormone (TSH) 1.325uIU/mL (0.358-3.74) Free Thyroxine 0.96ng/dL (0.76-1.46) Laboratory Tests Test 12/24/16 17:11 12/24/16 20:19 12/25/16 07:41 12/25/16 08:00 Glucose (Fingerstick) 471mg/dL (70-99) 494mg/dL (70-99) 293mg/dL (70-99) White Blood Count 15.6x10^3/uL (4.0-11.0) Red Blood Count 3.75x10^6/uL (3.50-5.40) Hemoglobin 10.8g/dL (12.0-15.5) Hematocrit 33.4% (36.0-47.0) Mean Corpuscular Volume 89fL (79-100) Mean Corpuscular Hemoglobin 29pg (25-35) Mean Corpuscular Hemoglobin Concent 32g/dL (31-37) Red Cell Distribution Width 13.4% (11.5-14.5) Platelet Count 275x10^3/uL (140-400) Neutrophils (%) (Auto) 66% (31-73) Lymphocytes (%) (Auto) 26% (24-48) Monocytes (%) (Auto) 5% (0-9) Eosinophils (%) (Auto) 2% (0-3) Basophils (%) (Auto) 0% (0-3) Neutrophils # (Auto) 10.3x10^3uL (1.8-7.7) Lymphocytes # (Auto) 4.1x10^3/uL (1.0-4.8) Monocytes # (Auto) 0.8x10^3/uL (0.0-1.1) Eosinophils # (Auto) 0.3x10^3/uL (0.0-0.7) Basophils # (Auto) 0.1x10^3/uL (0.0-0.2) Prothrombin Time 13.6SEC (11.7-14.0) Prothromb Time International Ratio 1.1 (0.8-1.1) Activated Partial Thromboplast Time 51SEC (24-38) Heparin Anti-Xa Act, Unfractionated 0.23IU/mL (0.30-0.70) Sodium Level 140mmol/L (136-145) Potassium Level 3.9mmol/L (3.5-5.1) Chloride Level 101mmol/L (98-107) Carbon Dioxide Level 35mmol/L (21-32) Anion Gap 4 (6-14) Blood Urea Nitrogen 35mg/dL (7-20) Creatinine 1.4mg/dL (0.6-1.0) Estimated GFR (Cockcroft-Gault) 39.2 Glucose Level 326mg/dL (70-99) Calcium Level 9.5mg/dL (8.5-10.1) Thyroid Stimulating Hormone (TSH) 1.325uIU/mL (0.358-3.74) Free Thyroxine 0.96ng/dL (0.76-1.46) Test 12/25/16 11:47 Glucose (Fingerstick) 301mg/dL (70-99) Medications Current Medications Albuterol/ Ipratropium (Duoneb) 3 ml 1X ONCE NEB Last administered on 13:50; Start 12/23/16 at 12:15; Stop 12/23/16 at 12:16; Status DC Methylprednisolone Sodium Succinate (Solu-Medrol 125mg Vial) 125 mg 1X ONCE IV Last administered on 12/23/16 12:22; Start 12/23/16 at 12:15; Stop 12/23/16 at 12:16; Status DC Aspirin (Sanju Aspirin) 325 mg 1X ONCE PO Last administered on 12/23/16 12:21 ; Start 12/23/16 at 12:15; Stop 12/23/16 at 12:16; Status DC Heparin Sodium (Porcine) 4000 unit 4,000 unit 1X ONCE IV Last administered on 12/23/16 13:45; Start 12/23/16 at 13:30; Stop 12/23/16 at 13:31; Status DC Heparin Sodium/ Dextrose 500 ml @ 0 mls/hr CONT PRN IV SEE I/O RECORD Last administered on 12/25/16 03:58; Start 12/23/16 at 13:30 Heparin Sodium (Porcine) 2,600 unit PRN Q6HRS PRN IV FOR UFH LEVEL LESS THAN 0.2; Start 12/23/16 at 13:30; Stop 12/24/16 at 13:16; Status DC Furosemide (Lasix) 40 mg 1X ONCE IVP Last administered on 12/23/16 13:43; Start 12/23/16 at 13:30; Stop 12/23/16 at 13:31; Status DC Ondansetron HCl (Zofran) 4 mg PRN Q8HRS PRN IV NAUSEA/VOMITING; Start 12/23/16 at 13:30; Stop 12/24/16 at 08:49; Status DC Morphine Sulfate 2 mg PRN Q2HR PRN IV PAIN Last administered on 12/24/16 04:38 ; Start 12/23/16 at 13:30; Stop 12/24/16 at 13:29; Status DC Acetaminophen (Tylenol) 650 mg PRN Q4HRS PRN PO FEVER; Start 12/23/16 at 13:30 ; Stop 12/24/16 at 12:55; Status DC Nitroglycerin (Nitrostat) 0.4 mg PRN Q5MIN PRN SL CHEST PAIN Last administered on 12/23/16 21:32; Start 12/23/16 at 13:30; Stop 12/24/16 at 08:35; Status DC Albuterol/ Ipratropium (Duoneb) 3 ml RTQID NEB Last administered on 12/24/16 07 :32; Start 12/23/16 at 16:00; Stop 12/24/16 at 08:35; Status DC Aspirin (Children'S Aspirin) 81 mg DAILY07 PO Last administered on 12/25/16 05: 14; Start 12/23/16 at 17:00 Atorvastatin Calcium (Lipitor) 20 mg QHS PO Last administered on 12/24/16 20:20 ; Start 12/23/16 at 21:00 Dabigatran (Pradaxa) 150 mg BID PO ; Start 12/23/16 at 21:00; Status UNV Fenofibrate (Lofibra) 134 mg DAILY PO Last administered on 12/25/16 08:49; Start 12/23/16 at 17:00 Acetaminophen/ Hydrocodone Bitart (Lortab 10/325) 1 tab PRN Q6HRS PRN PO PAIN Last administered on 12/25/16 03:55; Start 12/23/16 at 15:45 Isosorbide Mononitrate (Imdur) 30 mg DAILY PO Last administered on 12/25/16 08: 48; Start 12/23/16 at 17:00 Levothyroxine Sodium (Synthroid) 50 mcg DAILY07 PO Last administered on 05:13; Start 12/23/16 at 17:00 Metolazone (Zaroxolyn) 2 mg PRN Q48HR PRN PO AD; Start 12/23/16 at 15:45; Stop 12/23/16 at 16:25; Status DC Nitroglycerin (Nitrostat) 0.4 mg PRN Q5MIN PRN SL CP RATING > 1/10; Start 12/23 at 15:45 Duloxetine HCl (Cymbalta) 60 mg BID PO Last administered on 12/25/16 08:47; Start 12/23/16 at 21:00 Pantoprazole Sodium (Protonix) 40 mg DAILYAC PO Last administered on 12/25/16 08:48; Start 12/23/16 at 17:00 Insulin Detemir (Levemir) 40 units DAILY08 SQ ; Start 12/24/16 at 08:00; Stop 12/24/16 at 08:29; Status DC Pregabalin (Lyrica) 150 mg BID PO Last administered on 12/25/16 08:49; Start at 21:00 Tizanidine HCl (Zanaflex) 4 mg PRN Q8HRS PRN PO MUSCLE SPASMS Last administered on 12/25/16 03:54; Start 12/23/16 at 16:30 Metolazone (Zaroxolyn) 2.5 mg PRN Q48HR PRN PO AD; Start 12/23/16 at 16:25; Stop 12/26/16 at 09:00 Insulin Aspart (Novolog) 0-7 UNITS TIDWMEALS SQ Last administered on 12/25/16 12:48; Start 12/23/16 at 17:45 Dextrose (Dextrose 50%-Water Syringe) 12.5 gm PRN Q15MIN PRN IV SEE COMMENTS; Start 12/23/16 at 17:45 Insulin Aspart (Novolog) 8 units 1X ONCE SQ Last administered on 12/23/16 20: 58; Start 12/23/16 at 21:00; Stop 12/23/16 at 21:01; Status DC Insulin Detemir (Levemir) 30 units BID SQ Last administered on 12/25/16 08:56; Start 12/24/16 at 09:00 Metolazone (Zaroxolyn) 2.5 mg 3X/WEEK PO ; Start 12/26/16 at 09:00 Albuterol/ Ipratropium (Duoneb) 3 ml RTQID NEB Last administered on 12/25/16 12 :03; Start 12/24/16 at 12:00 Albuterol Sulfate (Ventolin Neb Soln) 2.5 mg PRN Q4HRS PRN NEB SHORTNESS OF BREATH; Start 12/24/16 at 08:00 Acetaminophen (Tylenol) 650 mg PRN Q6HRS PRN PO MILD PAIN; Start 12/24/16 at 08: 00 Carvedilol (Coreg) 12.5 mg BIDWMEALS PO Last administered on 12/25/16 08:48; Start 12/24/16 at 09:00 Bumetanide (Bumex) 2 mg DAILY PO Last administered on 12/25/16 08:49; Start 12/24/16 at 09:00 Insulin Aspart (Novolog) 15 units TIDAC SQ ; Start 12/24/16 at 11:30; Stop at 12:00; Status DC Metronidazole (Flagyl) 500 mg Q8HRS PO Last administered on 12/25/16 05:13; Start 12/24/16 at 10:00 Ondansetron HCl (Zofran) 4 mg PRN Q6HRS PRN IV NAUSEA/VOMITING; Start 12/24/16 at 08:30 Insulin Aspart (Novolog) 25 units TIDAC SQ Last administered on 12/25/16 12:47 ; Start 12/24/16 at 12:30 Heparin Sodium (Porcine) (Heparin Sodium) 2,600 unit PRN Q6HRS PRN IV FOR UFH LEVEL LESS THAN 0.2; Start 12/24/16 at 13:15; Stop 12/24/16 at 13:16; Status DC Heparin Sodium (Porcine) (Heparin Sodium) 2,600 unit PRN Q6HRS PRN IV FOR UFH LEVEL LESS THAN 0.2; Start 12/24/16 at 13:30 Info (Anti-Coagulation Monitoring By Pharmacy) 1 each PRN DAILY PRN MC SEE COMMENTS Last administered on 12/25/16 14:28; Start 12/24/16 at 14:00 Active Scripts Active Nitrostat (Nitroglycerin) 0.4 Mg Tab.subl 0.4 Mg SL PRN Q5MIN PRN 30 Days Reported Lyrica (Pregabalin) 150 Mg Capsule 1 Cap PO BID Cymbalta (Duloxetine Hcl) 60 Mg Capsule. 1 Cap PO BID Metolazone 2.5 Mg Tablet 2 Mg PO QMWF PRN Lantus (Insulin Glargine,Hum.rec.anlog) 100 Unit/1 Ml Vial 40 Unit SQ DAILY07 Atorvastatin Calcium 20 Mg Tablet 1 Tab PO DAILY Nexium Capsule (Esomeprazole Magnesium) 40 Mg Capsule. 1 Cap PO DAILY Isosorbide Mononitrate Er (Isosorbide Mononitrate) 30 Mg Tab.er.24h 1 Tab PO DAILY Aspirin 81 Mg Tab.chew 1 Tab PO DAILY Pradaxa (Dabigatran Etexilate Mesylate) 150 Mg Capsule 1 Cap PO BID Levothyroxine Sodium 50 Mcg Tablet 1 Tab PO DAILY Fenofibrate (Fenofibrate,Micronized) 134 Mg Capsule 1 Cap PO DAILY Zanaflex (Tizanidine Hcl) 4 Mg Capsule 4 Mg PO PRN Q8HRS PRN as needed for muscle cramps no more than every 8hrs Hydrocodone-Apap 10-325 (Hydrocodone Bit/Acetaminophen) 1 Each Tablet 1 Tab PO PRN Q6HRS PRN as needed for pain every 6 hours Vitals/I & O Vital Sign - Last 24 Hours 12/24/16 12/24/16 12/24/16 12/24/16 15:24 15:45 16:46 18:56 Temp 98.0 97.6 98.0 97.6 Pulse 76 86 72 Resp 18 18 B/P 146/74 127/73 Pulse Ox 92 92 95 O2 Delivery Room Air Room Air Room Air 12/24/16 12/24/16 12/24/16 12/25/16 19:24 20:20 22:49 03:50 Temp 97.8 97.6 97.8 97.6 Pulse 76 76 Resp 18 18 18 B/P 138/67 142/71 Pulse Ox 93 96 O2 Delivery Nasal Cannula Room Air Room Air O2 Flow Rate 2.0 12/25/16 12/25/16 12/25/16 12/25/16 03:55 04:55 07:20 08:00 Temp 97.7 97.7 Pulse 63 Resp 18 18 14 B/P 147/73 Pulse Ox 93 O2 Delivery Room Air Room Air Room Air Room Air O2 Flow Rate 2.0 12/25/16 12/25/16 12/25/16 12/25/16 08:11 08:48 08:48 11:06 Temp 98.0 98.0 Pulse 72 65 Resp 14 B/P 147/73 115/64 Pulse Ox 94 O2 Delivery Room Air Room Air 12/25/16 12:03 O2 Delivery Room Air Intake and Output 12/24/16 12/24/16 12/25/16 14:59 22:59 06:59 Intake Total 1614 ml 500 ml Output Total 2800 ml 1000 ml Balance -1186 ml -500 ml JON WEAVER MD Dec 25, 2016 14:49
[2016-12-25 15:11] VITALS: BP 143/78
--- NOTE | 2016-12-25 15:14 | CARD ---
APPROVED REPORT EXAM: LIMITED Two-dimensional echocardiogram with Doppler and color Doppler. Other Information Quality : Technically Limited Technically limited study due to body habitus. INDICATION LV Function:Systolic Non STEMI RISK FACTORS Obesity 2D DIMENSIONS LVEF(%)70.0 (>50%) Tricuspid Valve TR P. [id number] TR Peak [id number] LEFT VENTRICLE The left ventricle is normal size. There is mild concentric left ventricular hypertrophy. The left ve ntricular systolic function is normal and the ejection fraction is within normal range. The Ejection Fraction is 70%. There is normal LV segmental wall motion. ATRIA The left atrium size is normal. The right atrium size is normal. AORTIC VALVE Aortic valve was poorly visualized MITRAL VALVE Mitral valve was poorly visualized TRICUSPID VALVE The tricuspid valve is normal in structure Doppler and Color Flow revealed trace to mild tricuspid re gurgitation. There is mild pulmonary hypertension. The PA pressure was estimated at 34 mmHg. PULMONIC VALVE Pulmonic valve was poorly visualized GREAT VESSELS The aortic root shows a normal size and calcifications PERICARDIAL EFFUSION There is no evidence of significant pericardial effusion. Critical Notification Critical Value: No <Conclusion> The left ventricular systolic function is normal and the ejection fraction is within normal range. The Ejection Fraction is 70%. The left atrium size is normal. The right atrium size is normal. Aortic valve was poorly visualized Mitral valve was poorly visualized Doppler and Color Flow revealed trace to mild tricuspid regurgitation. There is mild pulmonary hypertension. The PA pressure was estimated at 34 mmHg. Pulmonic valve was poorly visualized The aortic root shows a normal size and calcifications There is no evidence of significant pericardial effusion.
--- NOTE | 2016-12-25 16:11 | PDOC ---
SUBJECTIVE Subjective Denies any shortness of breath. Denies any chest pain when she is walking to the bathroom. She is eating and drinking okay. She is getting frustrated that her blood sugars are remaining elevated despite following appropriate diet at home when she only eats 2 meals a day per nursing staff. However with her meals here she is ordering extra food per nursing staff. OBJECTIVE Vital Signs Vital Signs Date Time Temp Pulse Resp B/P Pulse Ox O2 Delivery O2 Flow Rate FiO2 12/25/16 15:41 Room Air 12/25/16 15:11 97.8 72 14 143/78 94 Room Air 97.8 12/25/16 12:03 Room Air 12/25/16 11:06 98.0 65 14 115/64 94 Room Air 98.0 12/25/16 08:48 72 12/25/16 08:48 147/73 12/25/16 08:11 Room Air 12/25/16 08:00 Room Air 2.0 12/25/16 07:20 97.7 63 14 147/73 93 Room Air 97.7 12/25/16 04:55 18 Room Air 12/25/16 03:55 18 Room Air 12/25/16 03:50 97.6 76 18 142/71 96 Room Air 97.6 12/24/16 22:49 97.8 76 18 138/67 93 Room Air 97.8 12/24/16 20:20 18 12/24/16 19:24 Nasal Cannula 2.0 12/24/16 18:56 97.6 72 18 127/73 95 Room Air 97.6 12/24/16 16:46 86 I & O Intake and Output 12/25/16 06:59 Intake Total 2114 ml Output Total 3800 ml Balance -1686 ml Intake Oral 1560 ml IV Total 554 ml Output Urine Total 3800 ml PHYSICAL EXAM Physical Exam General: No acute distress. Sitting in the chair without supplemental oxygen Mental status: Alert and oriented. Chest: Clear to auscultation. Decreased air movement throughout CV: Normal rate. Regular rhythm. No murmur. Abdomen: Normal bowel sounds. Soft, morbidly obese. Not distended. No tenderness. No guarding. No rebound. Extremities: Mild bilateral lower extremity pitting edema. ASSESSMENT/PLAN Assessment/Plan 1. Chest pain with elevated troponin and multiple cardiac risk factors: Discussed with Dr. Major, cardiology. Agree with him that catheterization could be more harmful than beneficial in light of possible injury to her kidneys from contrast with the elevated blood sugars. She did have a normal perfusion test in April 2016. 2. Diabetes mellitus type 2, uncontrolled: Increase insulin. Check A1c 3. Hypertension: Fairly well controlled. Continue current medications. 4. COPD/asthma: Stable and doing okay. 5. Diabetic neuropathy: Stable. 6. History of paroxysmal atrial fibrillation: Off heparin now since no plan for catheterization. Resume Pradaxa. 7. History of CVA: Stable. 8. History of coronary artery disease: As above. 9. Hypothyroidism: Stable. 10. Colitis: Continue Flagyl. This could be contributing to her elevated blood sugars as well possibly 11. Mild protein malnutrition: Nutrition education. 12. Morbid obesity: As above. Problems: COMMENT Lab Laboratory Tests Test 12/24/16 17:11 12/24/16 20:19 12/25/16 07:41 12/25/16 08:00 Glucose (Fingerstick) 471mg/dL (70-99) 494mg/dL (70-99) 293mg/dL (70-99) White Blood Count 15.6x10^3/uL (4.0-11.0) Red Blood Count 3.75x10^6/uL (3.50-5.40) Hemoglobin 10.8g/dL (12.0-15.5) Hematocrit 33.4% (36.0-47.0) Mean Corpuscular Volume 89fL (79-100) Mean Corpuscular Hemoglobin 29pg (25-35) Mean Corpuscular Hemoglobin Concent 32g/dL (31-37) Red Cell Distribution Width 13.4% (11.5-14.5) Platelet Count 275x10^3/uL (140-400) Neutrophils (%) (Auto) 66% (31-73) Lymphocytes (%) (Auto) 26% (24-48) Monocytes (%) (Auto) 5% (0-9) Eosinophils (%) (Auto) 2% (0-3) Basophils (%) (Auto) 0% (0-3) Neutrophils # (Auto) 10.3x10^3uL (1.8-7.7) Lymphocytes # (Auto) 4.1x10^3/uL (1.0-4.8) Monocytes # (Auto) 0.8x10^3/uL (0.0-1.1) Eosinophils # (Auto) 0.3x10^3/uL (0.0-0.7) Basophils # (Auto) 0.1x10^3/uL (0.0-0.2) Prothrombin Time 13.6SEC (11.7-14.0) Prothromb Time International Ratio 1.1 (0.8-1.1) Activated Partial Thromboplast Time 51SEC (24-38) Heparin Anti-Xa Act, Unfractionated 0.23IU/mL (0.30-0.70) Sodium Level 140mmol/L (136-145) Potassium Level 3.9mmol/L (3.5-5.1) Chloride Level 101mmol/L (98-107) Carbon Dioxide Level 35mmol/L (21-32) Anion Gap 4 (6-14) Blood Urea Nitrogen 35mg/dL (7-20) Creatinine 1.4mg/dL (0.6-1.0) Estimated GFR (Cockcroft-Gault) 39.2 Glucose Level 326mg/dL (70-99) Calcium Level 9.5mg/dL (8.5-10.1) Thyroid Stimulating Hormone (TSH) 1.325uIU/mL (0.358-3.74) Free Thyroxine 0.96ng/dL (0.76-1.46) Test 12/25/16 11:47 Glucose (Fingerstick) 301mg/dL (70-99) JOSE BLAKELY MD Dec 25, 2016 16:11
[2016-12-25 19:00] VITALS: BP 104/60
[2016-12-25] MEDS: DABIGATRAN ETEXILATE 150 MG CAPSULE. PO SCH (21:05)
[2016-12-25] MEDS: ATORVASTATIN CALCIUM 20 MG TABLET PO SCH (21:05)
[2016-12-25 23:07] VITALS: BP 149/78
[2016-12-26] MEDS: tiZANidine 4 MG TABLET. PO PRN (01:23)
[2016-12-26] MEDS: HYDROCODONE/APAP 10/325 TABLET. PO PRN ×2 (01:24→15:26)
[2016-12-26 03:00] VITALS: BP 184/94
[2016-12-26] MEDS: LEVOTHYROXINE 50 MCG TABLET PO SCH (06:26)
[2016-12-26] MEDS: ASPIRIN CHEWABLE 81 MG TABLET. PO SCH (06:26)
[2016-12-26] MEDS: METRONIDAZOLE 500 MG TABLET. PO SCH ×3 (06:26→20:48)
[2016-12-26 07:00] VITALS: BP 139/70
[2016-12-26] MEDS: IPRATRPIUM/ALBUTEROL 0.5/2.5MG 3 ML NEBU. NEB SCH ×4 (08:27→19:04)
--- NOTE | 2016-12-26 08:48 | PDOC ---
SUBJECTIVE Subjective Still with intermittent brief chest pains. No relation to activity. Can happen at any time. Breathing is doing okay. She has been ambulating a little bit in the room. She is having good urine output. OBJECTIVE Vital Signs Vital Signs Date Time Temp Pulse Resp B/P Pulse Ox O2 Delivery O2 Flow Rate FiO2 12/26/16 08:28 92 Room Air 12/26/16 07:00 98.2 61 14 139/70 91 Room Air 98.2 12/26/16 03:00 98.1 75 20 184/94 91 Room Air 98.1 12/26/16 01:24 20 Room Air 12/25/16 23:07 97.5 66 20 149/78 91 Room Air 97.5 12/25/16 20:00 Room Air 12/25/16 19:00 97.7 60 16 104/60 93 Room Air 97.7 12/25/16 17:58 Room Air 12/25/16 16:59 86 12/25/16 16:58 Room Air 12/25/16 15:41 Room Air 12/25/16 15:11 97.8 72 14 143/78 94 Room Air 97.8 12/25/16 12:03 Room Air 12/25/16 11:06 98.0 65 14 115/64 94 Room Air 98.0 I & O Intake and Output 12/26/16 07:00 Intake Total 1130 ml Output Total 3125 ml Balance -1995 ml Intake Oral 1130 ml Output Urine Total 3125 ml # Voids 1 # Bowel Movements 2 PHYSICAL EXAM Physical Exam General: No acute distress. Sitting in the chair without supplemental oxygen Mental status: Alert and oriented. Chest: Clear to auscultation. Decreased air movement throughout CV: Normal rate. Regular rhythm. No murmur. Abdomen: Normal bowel sounds. Soft, morbidly obese. Not distended. No tenderness. No guarding. No rebound. Extremities: Slightly improved bilateral lower extremity pitting edema. ASSESSMENT/PLAN Assessment/Plan 1. Chest pain with elevated troponin and multiple cardiac risk factors: Discussed with Dr. Major, cardiology. Agree with him that catheterization could be more harmful than beneficial in light of possible injury to her kidneys from contrast with the elevated blood sugars, etc. She did have a normal perfusion test in April 2016 making cardiac etiology less likely. 2. Diabetes mellitus type 2, uncontrolled: Increased insulin. Check A1c. Monitor her today with the increased insulin. Improved mildly this morning. Make adjustments as needed and hopefully be able to discharge tomorrow. 3. Hypertension: Fairly well controlled. Still somewhat labile. Continue current medications. 4. COPD/asthma: Stable and doing okay. 5. Diabetic neuropathy: Stable. 6. History of paroxysmal atrial fibrillation: Off heparin now since no plan for catheterization. Resume Pradaxa. 7. History of CVA: Stable. 8. History of coronary artery disease: As above. 9. Hypothyroidism: Stable. 10. Colitis: Continue Flagyl. This could be contributing to her elevated blood sugars as well possibly 11. Mild protein malnutrition: Nutrition education. 12. Morbid obesity: As above. 13. Leukocytosis: Possibly due to colitis? On Flagyl now. Recheck CBC in the morning. 14. Chronic kidney disease, stage III: Continue current diuretics. Monitor. Again would like to maximize her status before considering doing a catheterization. Would likely need to be done as an outpatient sometime in the future if still having symptoms. 15. Disposition: Plan for hopefully discharging her to home tomorrow. Problems: COMMENT Lab Laboratory Tests Test 12/25/16 11:47 12/25/16 16:40 12/25/16 21:04 12/26/16 07:55 Glucose (Fingerstick) 301mg/dL (70-99) 255mg/dL (70-99) 272mg/dL (70-99) 191mg/dL (70-99) JOSE BLAKELY MD Dec 26, 2016 08:48
[2016-12-26] MEDS: DABIGATRAN ETEXILATE 150 MG CAPSULE. PO SCH ×2 (08:53→20:47)
[2016-12-26] MEDS: BUMETANIDE 1 MG TABLET. PO SCH (08:54)
[2016-12-26] MEDS: PANTOPRAZOLE 40 MG TABLET.DR. PO SCH (08:54)
[2016-12-26] MEDS: ISOSORBIDE MONONITRATE ER 30 MG TAB.ER.24H PO SCH (08:54)
[2016-12-26] MEDS: PREGABALIN 75 MG CAPSULE PO SCH ×2 (08:54→20:47)
[2016-12-26] MEDS: FENOFIBRATE,MICRONIZED 134 MG CAPSULE PO SCH (08:54)
[2016-12-26] MEDS: CARVEDILOL 12.5 MG TABLET. PO SCH ×2 (08:55→17:55)
[2016-12-26] MEDS: DULOXETINE HCL 30 MG CAPSULE.DR. PO SCH ×2 (08:55→20:47)
[2016-12-26] MEDS ORDERED: METOLAZONE 2.5 MG TABLET PO SCH (09:00)
[2016-12-26] MEDS: INSULIN ASPART 300 UNITS/3 ML INSULN.PEN SQ SCH ×6 (09:01→18:25)
[2016-12-26] MEDS: INSULIN DETEMIR 300 UNITS/3 ML INSULN.PEN. SQ SCH ×2 (09:02→20:52)
[2016-12-26 11:16] VITALS: BP 131/75
--- NOTE | 2016-12-26 13:18 | PDOC ---
PROGRESS NOTES Subjective Subjective Ms. Mari is a 56 year old female who was admitted on 12/24/16 for chest pain and elevated troponins. Pt reports that she is still having intermitted chest pains located on the right anterior chest and on her left side under her breast. Pt reports there is no provoking incident and only lasts a few minutes. During this time, the patient reports she sometimes can only take short breaths. Pt denies SOB. Pt's blood sugar was 191 this morning and told us the primary team wants to keep it under 200. Objective Objective Vital Signs Date Time Temp Pulse Resp B/P Pulse Ox O2 Delivery O2 Flow Rate FiO2 12/26/16 11:16 98.2 78 14 131/75 94 Room Air 98.2 12/25/16 08:00 2.0 Intake and Output 12/26/16 07:00 Intake Total 1130 ml Output Total 3125 ml Balance -1995 ml Intake Oral 1130 ml Output Urine Total 3125 ml # Voids 1 # Bowel Movements 2 Physical Exam Abdomen: Normal bowel sounds, Soft, No tenderness Heart: Regular rate, Normal S1, Normal S2, No murmurs Extremities: Other (chronic venous status changes bilaterally) General: Alert, Oriented X3, Cooperative, No acute distress HEENT: Atraumatic, PERRLA Lungs: Clear to auscultation, Normal air movement MUSCULOSKELETAL: No joint tenderness, No swelling, Full range of motion without pain Neck: Supple, No JVD Neuro: Normal gait, Normal speech, Strength at 5/5 X4 ext, Normal tone Psych/Mental Status: Mental status NL, Mood NL Skin: Other (chronic venous status changes on bilateral legs) Assessment Assessment Problems Medical Problems: (1) Acute on chronic congestive heart failure Status: Acute (2) Chest pain Status: Acute (3) NSTEMI (non-ST elevated myocardial infarction) Status: Acute 1. Chest pain with elevated troponin and multiple cardiac risk factors 2. Diabetes mellitus type 2, uncontrolled 3. Hypertension 4. COPD/asthma 5. Diabetic neuropathy 6. History of paroxysmal atrial fibrillation 7. History of CVA 8. History of coronary artery disease 9. Hypothyroidism 10. Colitis 11. Mild protein malnutrition 12. Morbid obesity 13. Chronic kidney disease, stage III Plan Plan of Care 1. Will increase her isosorbide to 60 mg once a day from the 30mg she was taking 2. 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 Will consider setting up as outpatient once things are controlled. 3. Ok with discharge tomorrow. Pt will need to call the office to set up an appointment in 2-3 weeks to reassess catheterization. Comment Review of Relevant I have reviewed the following items jim (where applicable) has been applied. Labs Laboratory Tests Test 12/24/16 17:11 12/24/16 20:19 12/25/16 07:41 12/25/16 08:00 Glucose (Fingerstick) 471mg/dL (70-99) 494mg/dL (70-99) 293mg/dL (70-99) White Blood Count 15.6x10^3/uL (4.0-11.0) Red Blood Count 3.75x10^6/uL (3.50-5.40) Hemoglobin 10.8g/dL (12.0-15.5) Hematocrit 33.4% (36.0-47.0) Mean Corpuscular Volume 89fL (79-100) Mean Corpuscular Hemoglobin 29pg (25-35) Mean Corpuscular Hemoglobin Concent 32g/dL (31-37) Red Cell Distribution Width 13.4% (11.5-14.5) Platelet Count 275x10^3/uL (140-400) Neutrophils (%) (Auto) 66% (31-73) Lymphocytes (%) (Auto) 26% (24-48) Monocytes (%) (Auto) 5% (0-9) Eosinophils (%) (Auto) 2% (0-3) Basophils (%) (Auto) 0% (0-3) Neutrophils # (Auto) 10.3x10^3uL (1.8-7.7) Lymphocytes # (Auto) 4.1x10^3/uL (1.0-4.8) Monocytes # (Auto) 0.8x10^3/uL (0.0-1.1) Eosinophils # (Auto) 0.3x10^3/uL (0.0-0.7) Basophils # (Auto) 0.1x10^3/uL (0.0-0.2) Prothrombin Time 13.6SEC (11.7-14.0) Prothromb Time International Ratio 1.1 (0.8-1.1) Activated Partial Thromboplast Time 51SEC (24-38) Heparin Anti-Xa Act, Unfractionated 0.23IU/mL (0.30-0.70) Sodium Level 140mmol/L (136-145) Potassium Level 3.9mmol/L (3.5-5.1) Chloride Level 101mmol/L (98-107) Carbon Dioxide Level 35mmol/L (21-32) Anion Gap 4 (6-14) Blood Urea Nitrogen 35mg/dL (7-20) Creatinine 1.4mg/dL (0.6-1.0) Estimated GFR (Cockcroft-Gault) 39.2 Glucose Level 326mg/dL (70-99) Calcium Level 9.5mg/dL (8.5-10.1) Thyroid Stimulating Hormone (TSH) 1.325uIU/mL (0.358-3.74) Free Thyroxine 0.96ng/dL (0.76-1.46) Test 12/25/16 11:47 12/25/16 16:40 12/25/16 21:04 12/26/16 07:55 Glucose (Fingerstick) 301mg/dL (70-99) 255mg/dL (70-99) 272mg/dL (70-99) 191mg/dL (70-99) Test 12/26/16 11:31 Glucose (Fingerstick) 242mg/dL (70-99) Laboratory Tests Test 12/25/16 16:40 12/25/16 21:04 12/26/16 07:55 12/26/16 11:31 Glucose (Fingerstick) 255mg/dL (70-99) 272mg/dL (70-99) 191mg/dL (70-99) 242mg/dL (70-99) Medications Current Medications Albuterol/ Ipratropium (Duoneb) 3 ml 1X ONCE NEB Last administered on 13:50; Start 12/23/16 at 12:15; Stop 12/23/16 at 12:16; Status DC Methylprednisolone Sodium Succinate (Solu-Medrol 125mg Vial) 125 mg 1X ONCE IV Last administered on 12/23/16 12:22; Start 12/23/16 at 12:15; Stop 12/23/16 at 12:16; Status DC Aspirin (Sanju Aspirin) 325 mg 1X ONCE PO Last administered on 12/23/16 12:21 ; Start 12/23/16 at 12:15; Stop 12/23/16 at 12:16; Status DC Heparin Sodium (Porcine) 4000 unit 4,000 unit 1X ONCE IV Last administered on 12/23/16 13:45; Start 12/23/16 at 13:30; Stop 12/23/16 at 13:31; Status DC Heparin Sodium/ Dextrose 500 ml @ 0 mls/hr CONT PRN IV SEE I/O RECORD Last administered on 12/25/16 03:58; Start 12/23/16 at 13:30; Stop 12/25/16 at 14:48; Status DC Heparin Sodium (Porcine) 2,600 unit PRN Q6HRS PRN IV FOR UFH LEVEL LESS THAN 0.2; Start 12/23/16 at 13:30; Stop 12/24/16 at 13:16; Status DC Furosemide (Lasix) 40 mg 1X ONCE IVP Last administered on 12/23/16 13:43; Start 12/23/16 at 13:30; Stop 12/23/16 at 13:31; Status DC Ondansetron HCl (Zofran) 4 mg PRN Q8HRS PRN IV NAUSEA/VOMITING; Start 12/23/16 at 13:30; Stop 12/24/16 at 08:49; Status DC Morphine Sulfate 2 mg PRN Q2HR PRN IV PAIN Last administered on 12/24/16 04:38 ; Start 12/23/16 at 13:30; Stop 12/24/16 at 13:29; Status DC Acetaminophen (Tylenol) 650 mg PRN Q4HRS PRN PO FEVER; Start 12/23/16 at 13:30 ; Stop 12/24/16 at 12:55; Status DC Nitroglycerin (Nitrostat) 0.4 mg PRN Q5MIN PRN SL CHEST PAIN Last administered on 12/23/16 21:32; Start 12/23/16 at 13:30; Stop 12/24/16 at 08:35; Status DC Albuterol/ Ipratropium (Duoneb) 3 ml RTQID NEB Last administered on 12/24/16 07 :32; Start 12/23/16 at 16:00; Stop 12/24/16 at 08:35; Status DC Aspirin (Children'S Aspirin) 81 mg DAILY07 PO Last administered on 12/26/16 06: 26; Start 12/23/16 at 17:00 Atorvastatin Calcium (Lipitor) 20 mg QHS PO Last administered on 12/25/16 21:05 ; Start 12/23/16 at 21:00 Dabigatran (Pradaxa) 150 mg BID PO ; Start 12/23/16 at 21:00; Status UNV Fenofibrate (Lofibra) 134 mg DAILY PO Last administered on 12/26/16 08:54; Start 12/23/16 at 17:00 Acetaminophen/ Hydrocodone Bitart (Lortab 10/325) 1 tab PRN Q6HRS PRN PO PAIN Last administered on 12/26/16 01:24; Start 12/23/16 at 15:45 Isosorbide Mononitrate (Imdur) 30 mg DAILY PO Last administered on 12/26/16 08: 54; Start 12/23/16 at 17:00; Stop 12/26/16 at 11:32; Status DC Levothyroxine Sodium (Synthroid) 50 mcg DAILY07 PO Last administered on 06:26; Start 12/23/16 at 17:00 Metolazone (Zaroxolyn) 2 mg PRN Q48HR PRN PO AD; Start 12/23/16 at 15:45; Stop 12/23/16 at 16:25; Status DC Nitroglycerin (Nitrostat) 0.4 mg PRN Q5MIN PRN SL CP RATING > 1/10; Start 12/23 at 15:45 Duloxetine HCl (Cymbalta) 60 mg BID PO Last administered on 12/26/16 08:55; Start 12/23/16 at 21:00 Pantoprazole Sodium (Protonix) 40 mg DAILYAC PO Last administered on 12/26/16 08:54; Start 12/23/16 at 17:00 Insulin Detemir (Levemir) 40 units DAILY08 SQ ; Start 12/24/16 at 08:00; Stop 12/24/16 at 08:29; Status DC Pregabalin (Lyrica) 150 mg BID PO Last administered on 12/26/16 08:54; Start at 21:00 Tizanidine HCl (Zanaflex) 4 mg PRN Q8HRS PRN PO MUSCLE SPASMS Last administered on 12/26/16 01:23; Start 12/23/16 at 16:30 Metolazone (Zaroxolyn) 2.5 mg PRN Q48HR PRN PO AD; Start 12/23/16 at 16:25; Stop 12/25/16 at 16:05; Status DC Insulin Aspart (Novolog) 0-7 UNITS TIDWMEALS SQ Last administered on 12/26/16 12:30; Start 12/23/16 at 17:45 Dextrose (Dextrose 50%-Water Syringe) 12.5 gm PRN Q15MIN PRN IV SEE COMMENTS; Start 12/23/16 at 17:45 Insulin Aspart (Novolog) 8 units 1X ONCE SQ Last administered on 12/23/16 20: 58; Start 12/23/16 at 21:00; Stop 12/23/16 at 21:01; Status DC Insulin Detemir (Levemir) 30 units BID SQ Last administered on 12/25/16 08:56; Start 12/24/16 at 09:00; Stop 12/25/16 at 16:05; Status DC Metolazone (Zaroxolyn) 2.5 mg 3X/WEEK PO Last administered on 12/26/16 09:07; Start 12/26/16 at 09:00 Albuterol/ Ipratropium (Duoneb) 3 ml RTQID NEB Last administered on 12/26/16 08 :27; Start 12/24/16 at 12:00 Albuterol Sulfate (Ventolin Neb Soln) 2.5 mg PRN Q4HRS PRN NEB SHORTNESS OF BREATH; Start 12/24/16 at 08:00 Acetaminophen (Tylenol) 650 mg PRN Q6HRS PRN PO MILD PAIN; Start 12/24/16 at 08: 00 Carvedilol (Coreg) 12.5 mg BIDWMEALS PO Last administered on 12/26/16 08:55; Start 12/24/16 at 09:00 Bumetanide (Bumex) 2 mg DAILY PO Last administered on 12/26/16 08:54; Start 12/24/16 at 09:00 Insulin Aspart (Novolog) 15 units TIDAC SQ ; Start 12/24/16 at 11:30; Stop at 12:00; Status DC Metronidazole (Flagyl) 500 mg Q8HRS PO Last administered on 12/26/16 06:26; Start 12/24/16 at 10:00 Ondansetron HCl (Zofran) 4 mg PRN Q6HRS PRN IV NAUSEA/VOMITING; Start 12/24/16 at 08:30 Insulin Aspart (Novolog) 25 units TIDAC SQ Last administered on 12/25/16 12:47 ; Start 12/24/16 at 12:30; Stop 12/25/16 at 16:05; Status DC Heparin Sodium (Porcine) (Heparin Sodium) 2,600 unit PRN Q6HRS PRN IV FOR UFH LEVEL LESS THAN 0.2; Start 12/24/16 at 13:15; Stop 12/24/16 at 13:16; Status DC Heparin Sodium (Porcine) (Heparin Sodium) 2,600 unit PRN Q6HRS PRN IV FOR UFH LEVEL LESS THAN 0.2; Start 12/24/16 at 13:30; Stop 12/26/16 at 08:48; Status DC Info (Anti-Coagulation Monitoring By Pharmacy) 1 each PRN DAILY PRN MC SEE COMMENTS Last administered on 12/25/16 14:28; Start 12/24/16 at 14:00 Dabigatran (Pradaxa) 150 mg BID PO Last administered on 12/26/16 08:53; Start 12/25/16 at 21:00 Insulin Aspart (Novolog) 30 units TIDAC SQ Last administered on 12/26/16 12:29 ; Start 12/25/16 at 16:30 Insulin Detemir (Levemir) 35 units BID SQ Last administered on 12/26/16 09:02; Start 12/25/16 at 21:00 Isosorbide Mononitrate (Imdur) 60 mg DAILY PO ; Start 12/27/16 at 09:00 Active Scripts Active Nitrostat (Nitroglycerin) 0.4 Mg Tab.subl 0.4 Mg SL PRN Q5MIN PRN 30 Days Reported Lyrica (Pregabalin) 150 Mg Capsule 1 Cap PO BID Cymbalta (Duloxetine Hcl) 60 Mg Capsule. 1 Cap PO BID Metolazone 2.5 Mg Tablet 2 Mg PO QMWF PRN Lantus (Insulin Glargine,Hum.rec.anlog) 100 Unit/1 Ml Vial 40 Unit SQ DAILY07 Atorvastatin Calcium 20 Mg Tablet 1 Tab PO DAILY Nexium Capsule (Esomeprazole Magnesium) 40 Mg Capsule. 1 Cap PO DAILY Isosorbide Mononitrate Er (Isosorbide Mononitrate) 30 Mg Tab.er.24h 1 Tab PO DAILY Aspirin 81 Mg Tab.chew 1 Tab PO DAILY Pradaxa (Dabigatran Etexilate Mesylate) 150 Mg Capsule 1 Cap PO BID Levothyroxine Sodium 50 Mcg Tablet 1 Tab PO DAILY Fenofibrate (Fenofibrate,Micronized) 134 Mg Capsule 1 Cap PO DAILY Zanaflex (Tizanidine Hcl) 4 Mg Capsule 4 Mg PO PRN Q8HRS PRN as needed for muscle cramps no more than every 8hrs Hydrocodone-Apap 10-325 (Hydrocodone Bit/Acetaminophen) 1 Each Tablet 1 Tab PO PRN Q6HRS PRN as needed for pain every 6 hours Vitals/I & O Vital Sign - Last 24 Hours 12/25/16 12/25/16 12/25/16 12/25/16 15:11 15:41 16:58 16:59 Temp 97.8 97.8 Pulse 72 86 Resp 14 B/P 143/78 Pulse Ox 94 O2 Delivery Room Air Room Air Room Air 12/25/16 12/25/16 12/25/16 12/25/16 17:58 19:00 20:00 23:07 Temp 97.7 97.5 97.7 97.5 Pulse 60 66 Resp 16 20 B/P 104/60 149/78 Pulse Ox 93 91 O2 Delivery Room Air Room Air Room Air Room Air 12/26/16 12/26/16 12/26/16 12/26/16 01:24 03:00 07:00 08:28 Temp 98.1 98.2 98.1 98.2 Pulse 75 61 Resp 20 20 14 B/P 184/94 139/70 Pulse Ox 91 91 92 O2 Delivery Room Air Room Air Room Air Room Air 12/26/16 12/26/16 12/26/16 08:54 08:55 11:16 Temp 98.2 98.2 Pulse 61 61 78 Resp 14 B/P 139/70 139/70 131/75 Pulse Ox 94 O2 Delivery Room Air Intake and Output 12/25/16 12/25/16 12/26/16 15:00 23:00 07:00 Intake Total 1130 ml Output Total 1075 ml 700 ml 1350 ml Balance -1075 ml 430 ml -1350 ml JON WEAVER MD Dec 26, 2016 13:18
[2016-12-26 15:00] VITALS: BP 119/71
[2016-12-26 19:00] VITALS: BP 138/64
[2016-12-26] MEDS: ATORVASTATIN CALCIUM 20 MG TABLET PO SCH (20:47)
[2016-12-26 23:01] VITALS: BP 117/63
[2016-12-27] MEDS: HYDROCODONE/APAP 10/325 TABLET. PO PRN (00:58)
[2016-12-27] MEDS: tiZANidine 4 MG TABLET. PO PRN (00:58)
[2016-12-27 03:18] VITALS: BP 133/66
[2016-12-27 04:30] LABS: BASO # 0.1 x10^3/uL (0.0-0.2); BASO % 1 % (0-3); EOS % 5 % (0-3); HEMATOCRIT 34.6 % (36.0-47.0); HEMOGLOBIN 10.9 g/dL (12.0-15.5); LYMPH # 4.5 x10^3/uL (1.0-4.8); LYMPH % 36 % (24-48); MEAN CORPUSCULAR HEMOGLOBIN 28 pg (25-35); MEAN CORPUSCULAR HGB CONC 32 g/dL (31-37); MEAN CORPUSCULAR VOLUME 89 fL (79-100); MONO % 8 % (0-9); NEUT % 50 % (31-73); PLATELET COUNT 251 x10^3/uL (140-400); RED BLOOD COUNT 3.88 x10^6/uL (3.50-5.40); RED CELL DISTRIBUTION WIDTH 13.2 % (11.5-14.5); WHITE BLOOD COUNT 12.5 x10^3/uL (4.0-11.0)
[2016-12-27 04:36] LABS: CALCIUM 8.7 mg/dL (8.5-10.1); CREATININE 1.3 mg/dL (0.6-1.0); GFR 42.7; POTASSIUM 3.9 mmol/L (3.5-5.1)
[2016-12-27] MEDS: METRONIDAZOLE 500 MG TABLET. PO SCH ×2 (06:37→13:50)
[2016-12-27] MEDS: LEVOTHYROXINE 50 MCG TABLET PO SCH (06:37)
[2016-12-27] MEDS: ASPIRIN CHEWABLE 81 MG TABLET. PO SCH (06:37)
[2016-12-27 07:00] VITALS: BP 130/76
[2016-12-27] MEDS: IPRATRPIUM/ALBUTEROL 0.5/2.5MG 3 ML NEBU. NEB SCH ×3 (08:00→15:30)
[2016-12-27] MEDS: INSULIN ASPART 300 UNITS/3 ML INSULN.PEN SQ SCH ×4 (08:00→12:51)
[2016-12-27] MEDS ORDERED: CARVEDILOL 3.125 MG TABLET. PO SCH (08:00)
--- NOTE | 2016-12-27 08:00 | DISCH ---
DISCHARGE INSTRUCTIONS Condition on Discharge Condition on Discharge: Stable Activity After Discharge Activity Instructions for Disc: Activity as tolerated Diet after Discharge Diet after Discharge: Diabetic No Calorie Level (limit salt and fliuds to < 1500ml daily) Checks after Discharge Checks after discharge: Check blood press - daily, Check blood sugar, ac/hs Contacting the DR. after DC Call your doctor for: If your condition worsens Follow-Up Follow up with: Dr Blakely in 1 week, call for appt Follow Up With: Dr Major in 2-3 weeks JOSE BLAKELY MD Dec 27, 2016 08:00
[2016-12-27] MEDS ORDERED: CARV3.12 PO (08:20)
[2016-12-27] MEDS ORDERED: ISOS60TA2 PO (08:20)
[2016-12-27] MEDS ORDERED: INSU100V8 SQ (08:20)
[2016-12-27] MEDS ORDERED: INSU100I11 SQ (08:20)
[2016-12-27] MEDS ORDERED: Metronidazole PO (08:20)
[2016-12-27] MEDS ORDERED: Metolazone PO (08:20)
[2016-12-27] MEDS ORDERED: IPRA3AMP NEB (08:20)
--- NOTE | 2016-12-27 08:32 | PDOC ---
Provider Note Provider Note see discharge summary dictation #[id number] JOSE BLAKELY MD Dec 27, 2016 08:32
[2016-12-27] MEDS ORDERED: ISOSORBIDE MONONITRATE ER 30 MG TAB.ER.24H PO SCH (09:00)
[2016-12-27] MEDS: PREGABALIN 75 MG CAPSULE PO SCH (09:12)
[2016-12-27] MEDS: DABIGATRAN ETEXILATE 150 MG CAPSULE. PO SCH (09:13)
[2016-12-27] MEDS: BUMETANIDE 1 MG TABLET. PO SCH (09:14)
[2016-12-27] MEDS: FENOFIBRATE,MICRONIZED 134 MG CAPSULE PO SCH (09:14)
[2016-12-27] MEDS: DULOXETINE HCL 30 MG CAPSULE.DR. PO SCH (09:14)
[2016-12-27] MEDS: PANTOPRAZOLE 40 MG TABLET.DR. PO SCH (09:15)
[2016-12-27] MEDS: INSULIN DETEMIR 300 UNITS/3 ML INSULN.PEN. SQ SCH (09:22)
--- NOTE | 2016-12-27 09:37 | DS ---
DATE OF DISCHARGE: 12/27/2016 ATTENDING PHYSICIAN: Jose Blakely M.D. CHIEF COMPLAINT: Chest pain. HISTORY OF PRESENT ILLNESS: The patient is a 56-year-old female with multiple cardiac risk factors and prior coronary artery disease who had chest pain during the night prior to admission that felt like somebody was standing on her chest. It radiated through to her back. It woke her from sleep. She did have associated shortness of breath and dizziness. She checked her blood pressure and noted that it was 265/145. Nitroglycerin did seem to help relieve the pain. HOSPITAL COURSE: The patient was admitted. She was seen in consultation with Cardiology and it was felt that she may have indication for a catheterization since she did have elevated troponins intermittently; however, her blood sugars were extremely uncontrolled and they felt that it was not safe to do catheterization with her borderline kidney function with the elevated blood sugars. Her isosorbide was increased to 60 mg daily. She was placed on Coreg 12.5 mg, which was decreased due to lower blood pressures. The plan was to probably attempt the catheterization as an outpatient 2 or [address] her blood sugars were better controlled. Her insulin was adjusted to try and get better control of her blood sugars. At the time of discharge, she was getting more blood sugars under 200. Her kidney function remained stable, she was diuresing. At the time of discharge, she was tolerating her diet without any difficulty. She was not having any shortness of breath. Her chest pain was brief and intermittent, and somewhat atypical in nature, but it was improving. She was voiding without any difficulty. She was having less swelling. She was afebrile. PHYSICAL EXAMINATION: VITAL SIGNS: Stable. CHEST: Clear to auscultation with fair air movement throughout. HEART: Had a regular rate and rhythm without murmur. ABDOMEN: Obese and nontender. EXTREMITIES: Did have 1+ edema, which was much improved over tense edema at the time of admission. LABORATORY DATA: At the time of discharge, WBC 12.5, hemoglobin 10.9, sodium 142, potassium 3.9, BUN 39, creatinine 1.3. Blood sugars were primarily standing under the 200 range and she had a fasting blood sugar of 138 on the day of discharge. Chest x-ray did not show any acute abnormality. DISCHARGE DIAGNOSES: 1. Chest pain with history of coronary artery disease. Medical management at present until she is more stable as regarding her blood sugars and kidney function when we can attempt an outpatient catheterization. 2. Diabetes mellitus type 2, uncontrolled. 3. Hypertension. 4. Chronic obstructive pulmonary disease/asthma. 5. Diabetic neuropathy. 6. History of paroxysmal atrial fibrillation. 7. Hypothyroidism. 8. Colitis. 9. Mild protein malnutrition. 10. Morbid obesity. 11. Leukocytosis. 12. Chronic kidney disease stage 3. DISCHARGE DIET: Diabetic diet. She is encouraged to strictly follow a diet, which she does have apparent issues at time. DISCHARGE ACTIVITIES: As tolerated. FOLLOWUP: The patient is to follow up with Dr. Blakely in approximately 1 week. She is to follow up with Dr. Major in 2-3 weeks. MEDICATIONS AT THE TIME OF DISCHARGE: Include Coreg 3.125 mg p.o. b.i.d., Humalog 30 units subcutaneously t.i.d. with meals, DuoNeb q.i.d. p.r.n., isosorbide mononitrate extended release 60 mg p.o. daily, Zaroxolyn 2.5 mg p.o. on Mondays, Wednesdays and Fridays, Flagyl 500 mg p.o. t.i.d. per GI's recommendations, aspirin 81 mg p.o. daily, Lipitor 20 mg p.o. daily, Pradaxa 150 mg p.o. b.i.d., Cymbalta 60 mg p.o. b.i.d., Nexium 40 mg p.o. daily, fenofibrate 134 mg p.o. daily, Grayson 10/325 one p.o. q. 6 hours p.r.n., levothyroxine 50 mcg p.o. daily, nitroglycerin sublingual 0.4 mg p.r.n., Lyrica 150 mg p.o. b.i.d., tizanidine 4 mg p.o. t.i.d. p.r.n., Lantus 35 units subcutaneously b.i.d. JOSE BLAKELY MD DR: GONZALO/apolinar JOB#: [id number] / [id number]
[2016-12-27 10:26] VITALS: BP 144/82
--- NOTE | 2016-12-27 13:32 | PDOC ---
PROGRESS NOTES Subjective Subjective Patient denies any complaints at this time and states she is ready to go home. Objective Objective Vital Signs Date Time Temp Pulse Resp B/P Pulse Ox O2 Delivery O2 Flow Rate FiO2 12/27/16 10:26 98.1 81 20 144/82 93 Room Air 98.1 12/26/16 07:40 1.0 Intake and Output 12/27/16 07:00 Intake Total 1570 ml Output Total 1650 ml Balance -80 ml Intake Oral 1570 ml Output Urine Total 1650 ml # Voids 1 # Bowel Movements 1 Physical Exam Physical Exam GENERAL: sitting upright resting comfortably in recliner, no acute distress HEART: regular rate and rhythm Assessment Assessment No active symptoms currently. Problems Medical Problems: (1) Acute on chronic congestive heart failure Status: Acute (2) Chest pain Status: Acute (3) NSTEMI (non-ST elevated myocardial infarction) Status: Acute Plan Plan of Care Agree with discharge at this time. Patient understands to contact office for follow up in 2-3 weeks to reassess possible catheterization after blood sugars kept under control. Continue increased dose of isosorbide and have nitro sl on hand prn. Comment Review of Relevant I have reviewed the following items jim (where applicable) has been applied. Labs Laboratory Tests Test 12/25/16 16:40 12/25/16 21:04 12/26/16 07:55 12/26/16 11:31 Glucose (Fingerstick) 255mg/dL (70-99) 272mg/dL (70-99) 191mg/dL (70-99) 242mg/dL (70-99) Test 12/26/16 17:06 12/26/16 20:46 12/27/16 03:25 12/27/16 08:07 Glucose (Fingerstick) 128mg/dL (70-99) 205mg/dL (70-99) 138mg/dL (70-99) White Blood Count 12.5x10^3/uL (4.0-11.0) Red Blood Count 3.88x10^6/uL (3.50-5.40) Hemoglobin 10.9g/dL (12.0-15.5) Hematocrit 34.6% (36.0-47.0) Mean Corpuscular Volume 89fL (79-100) Mean Corpuscular Hemoglobin 28pg (25-35) Mean Corpuscular Hemoglobin Concent 32g/dL (31-37) Red Cell Distribution Width 13.2% (11.5-14.5) Platelet Count 251x10^3/uL (140-400) Neutrophils (%) (Auto) 50% (31-73) Lymphocytes (%) (Auto) 36% (24-48) Monocytes (%) (Auto) 8% (0-9) Eosinophils (%) (Auto) 5% (0-3) Basophils (%) (Auto) 1% (0-3) Neutrophils # (Auto) 6.3x10^3uL (1.8-7.7) Lymphocytes # (Auto) 4.5x10^3/uL (1.0-4.8) Monocytes # (Auto) 1.0x10^3/uL (0.0-1.1) Eosinophils # (Auto) 0.6x10^3/uL (0.0-0.7) Basophils # (Auto) 0.1x10^3/uL (0.0-0.2) Sodium Level 142mmol/L (136-145) Potassium Level 3.9mmol/L (3.5-5.1) Chloride Level 101mmol/L (98-107) Carbon Dioxide Level 32mmol/L (21-32) Anion Gap 9 (6-14) Blood Urea Nitrogen 39mg/dL (7-20) Creatinine 1.3mg/dL (0.6-1.0) Estimated GFR (Cockcroft-Gault) 42.7 Glucose Level 167mg/dL (70-99) Calcium Level 8.7mg/dL (8.5-10.1) Test 12/27/16 11:51 Glucose (Fingerstick) 184mg/dL (70-99) Laboratory Tests Test 12/26/16 17:06 12/26/16 20:46 12/27/16 03:25 12/27/16 08:07 Glucose (Fingerstick) 128mg/dL (70-99) 205mg/dL (70-99) 138mg/dL (70-99) White Blood Count 12.5x10^3/uL (4.0-11.0) Red Blood Count 3.88x10^6/uL (3.50-5.40) Hemoglobin 10.9g/dL (12.0-15.5) Hematocrit 34.6% (36.0-47.0) Mean Corpuscular Volume 89fL (79-100) Mean Corpuscular Hemoglobin 28pg (25-35) Mean Corpuscular Hemoglobin Concent 32g/dL (31-37) Red Cell Distribution Width 13.2% (11.5-14.5) Platelet Count 251x10^3/uL (140-400) Neutrophils (%) (Auto) 50% (31-73) Lymphocytes (%) (Auto) 36% (24-48) Monocytes (%) (Auto) 8% (0-9) Eosinophils (%) (Auto) 5% (0-3) Basophils (%) (Auto) 1% (0-3) Neutrophils # (Auto) 6.3x10^3uL (1.8-7.7) Lymphocytes # (Auto) 4.5x10^3/uL (1.0-4.8) Monocytes # (Auto) 1.0x10^3/uL (0.0-1.1) Eosinophils # (Auto) 0.6x10^3/uL (0.0-0.7) Basophils # (Auto) 0.1x10^3/uL (0.0-0.2) Sodium Level 142mmol/L (136-145) Potassium Level 3.9mmol/L (3.5-5.1) Chloride Level 101mmol/L (98-107) Carbon Dioxide Level 32mmol/L (21-32) Anion Gap 9 (6-14) Blood Urea Nitrogen 39mg/dL (7-20) Creatinine 1.3mg/dL (0.6-1.0) Estimated GFR (Cockcroft-Gault) 42.7 Glucose Level 167mg/dL (70-99) Calcium Level 8.7mg/dL (8.5-10.1) Test 12/27/16 11:51 Glucose (Fingerstick) 184mg/dL (70-99) Medications Current Medications Albuterol/ Ipratropium (Duoneb) 3 ml 1X ONCE NEB Last administered on t 13:50; Start 12/23/16 at 12:15; Stop 12/23/16 at 12:16; Status DC Methylprednisolone Sodium Succinate (Solu-Medrol 125mg Vial) 125 mg 1X ONCE IV Last administered on 12/23/16 12:22; Start 12/23/16 at 12:15; Stop 12/23/16 at 12:16; Status DC Aspirin (Sanju Aspirin) 325 mg 1X ONCE PO Last administered on 12/23/16 12:21 ; Start 12/23/16 at 12:15; Stop 12/23/16 at 12:16; Status DC Heparin Sodium (Porcine) 4000 unit 4,000 unit 1X ONCE IV Last administered on 12/23/16 13:45; Start 12/23/16 at 13:30; Stop 12/23/16 at 13:31; Status DC Heparin Sodium/ Dextrose 500 ml @ 0 mls/hr CONT PRN IV SEE I/O RECORD Last administered on 12/25/16 03:58; Start 12/23/16 at 13:30; Stop 12/25/16 at 14:48; Status DC Heparin Sodium (Porcine) 2,600 unit PRN Q6HRS PRN IV FOR UFH LEVEL LESS THAN 0.2; Start 12/23/16 at 13:30; Stop 12/24/16 at 13:16; Status DC Furosemide (Lasix) 40 mg 1X ONCE IVP Last administered on 12/23/16 13:43; Start 12/23/16 at 13:30; Stop 12/23/16 at 13:31; Status DC Ondansetron HCl (Zofran) 4 mg PRN Q8HRS PRN IV NAUSEA/VOMITING; Start 12/23/16 at 13:30; Stop 12/24/16 at 08:49; Status DC Morphine Sulfate 2 mg PRN Q2HR PRN IV PAIN Last administered on 12/24/16 04:38 ; Start 12/23/16 at 13:30; Stop 12/24/16 at 13:29; Status DC Acetaminophen (Tylenol) 650 mg PRN Q4HRS PRN PO FEVER; Start 12/23/16 at 13:30 ; Stop 12/24/16 at 12:55; Status DC Nitroglycerin (Nitrostat) 0.4 mg PRN Q5MIN PRN SL CHEST PAIN Last administered on 12/23/16 21:32; Start 12/23/16 at 13:30; Stop 12/24/16 at 08:35; Status DC Albuterol/ Ipratropium (Duoneb) 3 ml RTQID NEB Last administered on 12/24/16 07 :32; Start 12/23/16 at 16:00; Stop 12/24/16 at 08:35; Status DC Aspirin (Children'S Aspirin) 81 mg DAILY07 PO Last administered on 12/27/16 06: 37; Start 12/23/16 at 17:00 Atorvastatin Calcium (Lipitor) 20 mg QHS PO Last administered on 12/26/16 20:47 ; Start 12/23/16 at 21:00 Dabigatran (Pradaxa) 150 mg BID PO ; Start 12/23/16 at 21:00; Status UNV Fenofibrate (Lofibra) 134 mg DAILY PO Last administered on 12/27/16 09:14; Start 12/23/16 at 17:00 Acetaminophen/ Hydrocodone Bitart (Lortab 10/325) 1 tab PRN Q6HRS PRN PO PAIN Last administered on 12/27/16 00:58; Start 12/23/16 at 15:45 Isosorbide Mononitrate (Imdur) 30 mg DAILY PO Last administered on 12/26/16 08: 54; Start 12/23/16 at 17:00; Stop 12/26/16 at 11:32; Status DC Levothyroxine Sodium (Synthroid) 50 mcg DAILY07 PO Last administered on 06:37; Start 12/23/16 at 17:00 Metolazone (Zaroxolyn) 2 mg PRN Q48HR PRN PO AD; Start 12/23/16 at 15:45; Stop 12/23/16 at 16:25; Status DC Nitroglycerin (Nitrostat) 0.4 mg PRN Q5MIN PRN SL CP RATING > 1/10; Start 12/23 at 15:45 Duloxetine HCl (Cymbalta) 60 mg BID PO Last administered on 12/27/16 09:14; Start 12/23/16 at 21:00 Pantoprazole Sodium (Protonix) 40 mg DAILYAC PO Last administered on 12/27/16 09:15; Start 12/23/16 at 17:00 Insulin Detemir (Levemir) 40 units DAILY08 SQ ; Start 12/24/16 at 08:00; Stop 12/24/16 at 08:29; Status DC Pregabalin (Lyrica) 150 mg BID PO Last administered on 12/27/16 09:12; Start at 21:00 Tizanidine HCl (Zanaflex) 4 mg PRN Q8HRS PRN PO MUSCLE SPASMS Last administered on 12/27/16 00:58; Start 12/23/16 at 16:30 Metolazone (Zaroxolyn) 2.5 mg PRN Q48HR PRN PO AD; Start 12/23/16 at 16:25; Stop 12/25/16 at 16:05; Status DC Insulin Aspart (Novolog) 0-7 UNITS TIDWMEALS SQ Last administered on 12/27/16 12:51; Start 12/23/16 at 17:45 Dextrose (Dextrose 50%-Water Syringe) 12.5 gm PRN Q15MIN PRN IV SEE COMMENTS; Start 12/23/16 at 17:45 Insulin Aspart (Novolog) 8 units 1X ONCE SQ Last administered on 12/23/16 20: 58; Start 12/23/16 at 21:00; Stop 12/23/16 at 21:01; Status DC Insulin Detemir (Levemir) 30 units BID SQ Last administered on 12/25/16 08:56; Start 12/24/16 at 09:00; Stop 12/25/16 at 16:05; Status DC Metolazone (Zaroxolyn) 2.5 mg 3X/WEEK PO Last administered on 12/26/16 09:07; Start 12/26/16 at 09:00 Albuterol/ Ipratropium (Duoneb) 3 ml RTQID NEB Last administered on 12/26/16 08 :27; Start 12/24/16 at 12:00 Albuterol Sulfate (Ventolin Neb Soln) 2.5 mg PRN Q4HRS PRN NEB SHORTNESS OF BREATH; Start 12/24/16 at 08:00 Acetaminophen (Tylenol) 650 mg PRN Q6HRS PRN PO MILD PAIN; Start 12/24/16 at 08: 00 Carvedilol (Coreg) 12.5 mg BIDWMEALS PO Last administered on 12/26/16 17:55; Start 12/24/16 at 09:00; Stop 12/27/16 at 08:04; Status DC Bumetanide (Bumex) 2 mg DAILY PO Last administered on 12/27/16 09:14; Start 12/24/16 at 09:00 Insulin Aspart (Novolog) 15 units TIDAC SQ ; Start 12/24/16 at 11:30; Stop at 12:00; Status DC Metronidazole (Flagyl) 500 mg Q8HRS PO Last administered on 12/27/16 06:37; Start 12/24/16 at 10:00 Ondansetron HCl (Zofran) 4 mg PRN Q6HRS PRN IV NAUSEA/VOMITING; Start 12/24/16 at 08:30 Insulin Aspart (Novolog) 25 units TIDAC SQ Last administered on 12/25/16 12:47 ; Start 12/24/16 at 12:30; Stop 12/25/16 at 16:05; Status DC Heparin Sodium (Porcine) (Heparin Sodium) 2,600 unit PRN Q6HRS PRN IV FOR UFH LEVEL LESS THAN 0.2; Start 12/24/16 at 13:15; Stop 12/24/16 at 13:16; Status DC Heparin Sodium (Porcine) (Heparin Sodium) 2,600 unit PRN Q6HRS PRN IV FOR UFH LEVEL LESS THAN 0.2; Start 12/24/16 at 13:30; Stop 12/26/16 at 08:48; Status DC Info (Anti-Coagulation Monitoring By Pharmacy) 1 each PRN DAILY PRN MC SEE COMMENTS Last administered on 12/25/16 14:28; Start 12/24/16 at 14:00 Dabigatran (Pradaxa) 150 mg BID PO Last administered on 12/27/16 09:13; Start 12/25/16 at 21:00 Insulin Aspart (Novolog) 30 units TIDAC SQ Last administered on 12/27/16 12:50 ; Start 12/25/16 at 16:30 Insulin Detemir (Levemir) 35 units BID SQ Last administered on 12/27/16 09:22; Start 12/25/16 at 21:00 Isosorbide Mononitrate (Imdur) 60 mg DAILY PO Last administered on 12/27/16 09: 13; Start 12/27/16 at 09:00 Carvedilol (Coreg) 3.125 mg BIDWMEALS PO Last administered on 12/27/16 09:16; Start 12/27/16 at 08:00 Active Scripts Active Coreg (Carvedilol) 3.125 Mg Tablet 1 Tab PO BID Humalog (Insulin Lispro) 100 Unit/1 Ml Insuln.pen 30 Unit SQ TIDAC Duoneb 0.5-3(2.5) Mg/3 Ml (Albuterol/Ipratropium) 3 Ml Ampul.neb 3 Ml NEB PRN QID Isosorbide Mononitrate Er (Isosorbide Mononitrate) 60 Mg Tab.er.24h 1 Tab PO DAILY [Metronidazole] 500 MG Tablet 500 Mg PO Q8HRS [Metolazone] 2.5 MG Tablet 2.5 Mg PO 3X/WEEK take on Mon, Wed, Fri AM Lantus (Insulin Glargine,Hum.rec.anlog) 100 Unit/1 Ml Vial 35 Unit SQ BID Nitrostat (Nitroglycerin) 0.4 Mg Tab.subl 0.4 Mg SL PRN Q5MIN PRN 30 Days Reported Lyrica (Pregabalin) 150 Mg Capsule 1 Cap PO BID Cymbalta (Duloxetine Hcl) 60 Mg Capsule.dr 1 Cap PO BID Atorvastatin Calcium 20 Mg Tablet 1 Tab PO DAILY Nexium Capsule (Esomeprazole Magnesium) 40 Mg Capsule.dr 1 Cap PO DAILY Aspirin 81 Mg Tab.chew 1 Tab PO DAILY Pradaxa (Dabigatran Etexilate Mesylate) 150 Mg Capsule 1 Cap PO BID Levothyroxine Sodium 50 Mcg Tablet 1 Tab PO DAILY Fenofibrate (Fenofibrate,Micronized) 134 Mg Capsule 1 Cap PO DAILY Zanaflex (Tizanidine Hcl) 4 Mg Capsule 4 Mg PO PRN Q8HRS PRN as needed for muscle cramps no more than every 8hrs Hydrocodone-Apap 10-325 (Hydrocodone Bit/Acetaminophen) 1 Each Tablet 1 Tab PO PRN Q6HRS PRN as needed for pain every 6 hours Vitals/I & O Vital Sign - Last 24 Hours 12/26/16 12/26/16 12/26/16 12/26/16 15:00 15:26 16:45 17:55 Temp 97.9 97.9 Pulse 82 82 Resp 12 B/P 119/71 119/71 Pulse Ox 96 O2 Delivery Room Air Room Air Room Air 12/26/16 12/26/16 12/26/16 12/27/16 19:00 20:09 23:01 00:58 Temp 98.1 98.0 98.1 98.0 Pulse 78 68 Resp 18 16 B/P 138/64 117/63 Pulse Ox 92 93 O2 Delivery Room Air Room Air Room Air Room Air 12/27/16 12/27/16 12/27/16 12/27/16 03:18 07:00 09:13 09:16 Temp 98.0 97.7 98.0 97.7 Pulse 67 68 68 68 Resp 16 17 B/P 133/66 130/76 130/76 130/76 Pulse Ox 93 97 O2 Delivery Room Air Room Air 12/27/16 10:26 Temp 98.1 98.1 Pulse 81 Resp 20 B/P 144/82 Pulse Ox 93 O2 Delivery Room Air Intake and Output 12/26/16 12/26/16 12/27/16 15:00 23:00 07:00 Intake Total 480 ml 1090 ml Output Total 1150 ml 500 ml Balance 480 ml -60 ml -500 ml JON WEAVER MD Dec 27, 2016 13:32
== END 2016-12-27 14:10 | disposition home or self-care (01) | DRG 291 ==
LOC: ER 11:31 → 2 SOUTH 13:26
PROVIDERS: ADMIT Family Medicine; ATTEND Family Medicine
DX: I13.0 Hypertensive heart and chronic kidney disease with heart failure and stage 1 through stage 4 chronic kidney disease, or unspecified chronic kidney disease (principal); E11.00 Type 2 diabetes mellitus with hyperosmolarity without nonketotic hyperglycemic-hyperosmolar coma (NKHHC); E44.1 Mild protein-calorie malnutrition; G90.50 Complex regional pain syndrome I, unspecified; Z68.42 Body mass index [BMI] 45.0-49.9, adult; E03.9 Hypothyroidism, unspecified; E11.22 Type 2 diabetes mellitus with diabetic chronic kidney disease; E11.40 Type 2 diabetes mellitus with diabetic neuropathy, unspecified; E11.65 Type 2 diabetes mellitus with hyperglycemia; E78.5 Hyperlipidemia, unspecified; G47.33 Obstructive sleep apnea (adult) (pediatric); J44.9 Chronic obstructive pulmonary disease, unspecified; J45.909 Unspecified asthma, uncomplicated; I48.0 Paroxysmal atrial fibrillation; I50.9 Heart failure, unspecified; F32.9 Major depressive disorder, single episode, unspecified; E66.01 Morbid (severe) obesity due to excess calories; I25.10 Atherosclerotic heart disease of native coronary artery without angina pectoris; M10.9 Gout, unspecified; K52.9 Noninfective gastroenteritis and colitis, unspecified; N18.3 Chronic kidney disease, stage 3 (moderate); Z79.01 Long term (current) use of anticoagulants; Z79.899 Other long term (current) drug therapy; Z83.3 Family history of diabetes mellitus; Z82.49 Family history of ischemic heart disease and other diseases of the circulatory system; Z86.711 Personal history of pulmonary embolism; Z86.73 Personal history of transient ischemic attack (TIA), and cerebral infarction without residual deficits; Z91.19 Patient's noncompliance with other medical treatment and regimen; Z87.891 Personal history of nicotine dependence; Z95.5 Presence of coronary angioplasty implant and graft; Z99.81 Dependence on supplemental oxygen; Z90.710 Acquired absence of both cervix and uterus; Z90.49 Acquired absence of other specified parts of digestive tract; Z90.722 Acquired absence of ovaries, bilateral
CPT/HCPCS: 36415; 71010; 80048; 80053; 82947; 83036; 83880; 84439; 84443; 84484; 85027; 85520; 85610; 85730; 93005; 93308; 93325; 94250; 94640; 94760; 96374; 96375; J1815; J1940; J2270; J2930; J7620; 99291-25

== ENCOUNTER 2017-01-17 21:35 | Inpatient (IN) | payer OTHER, MEDICARE ==
[~2017-01-17] VITALS: Ht 152.4 cm; Wt 118.8 kg
[~2017-01-17 21:35] MED LIST changes: +CARV3.12 PO; +ISOS60TA2 PO; +METF-620 PO; -METF10002 PO; +Metolazone PO; +Metronidazole PO; -TRIM100T PO; +TRIM100T13 PO
[2017-01-17] MEDS ORDERED: ALBUTEROL SULFATE 2.5 MG/3 ML NEBU. ONE (21:44)
[2017-01-17] MEDS ORDERED: IPRATRPIUM/ALBUTEROL 0.5/2.5MG 3 ML NEBU. ONE (21:44)
[2017-01-17] MEDS ORDERED: fentaNYL PF VIAL 100 MCG/2 ML VIAL IV PRN ×2 (21:45→23:30)
[2017-01-17] MEDS ORDERED: methylPREDNISolone SOD SUCC PF 125 MG/2 ML VIAL. IV ONE (21:45)
[2017-01-17] MEDS ORDERED: IPRATROPIUM BROMIDE 0.5 MG/2.5 ML NEBU. NEB ONE (21:45)
[2017-01-17 21:52] LABS: BASO # 0.1 x10^3/uL (0.0-0.2); BASO % 1 % (0-3); EOS % 4 % (0-3); HEMATOCRIT 37.3 % (36.0-47.0); LYMPH # 5.7 x10^3/uL (1.0-4.8); LYMPH % 35 % (24-48); MEAN CORPUSCULAR HEMOGLOBIN 29 pg (25-35); MEAN CORPUSCULAR HGB CONC 32 g/dL (31-37); MEAN CORPUSCULAR VOLUME 90 fL (79-100); MONO % 8 % (0-9); NEUT % 53 % (31-73); PLATELET COUNT 398 x10^3/uL (140-400); RED BLOOD COUNT 4.15 x10^6/uL (3.50-5.40); RED CELL DISTRIBUTION WIDTH 13.7 % (11.5-14.5); WHITE BLOOD COUNT 16.5 x10^3/uL (4.0-11.0)
[2017-01-17] MEDS ORDERED: IPRATRPIUM/ALBUTEROL 0.5/2.5MG 3 ML NEBU. NEB ONE (22:00)
[2017-01-17 22:01] LABS: CALCIUM 8.9 mg/dL (8.5-10.1); CREATININE 1.4 mg/dL (0.6-1.0); GFR 39.2; POTASSIUM 4.9 mmol/L (3.5-5.1)
--- NOTE | 2017-01-17 22:10 | PHYS DOC ---
Past Medical History Past Medical History: CHF, COPD, Diabetes-Type II, Heart Disease, Hypertension , [place], Renal Disease, Other Additional Past Medical Histor: morbid obesity, REFLEX SYNTHEIC DISTROPHY, SEPSIS Past Surgical History: Angioplasty, Appendectomy, Cholecystectomy, Hysterectomy , Other Additional Past Surgical Histo: thoractomy, lumpectomy, exploratory surgery, hernia, bladder sling Alcohol Use: None Drug Use: None Adult General Chief Complaint Chief Complaint: SHORTNESS OF BREATH HPI HPI Patient is a 56 year old female who presents dyspnea and respiratory distress. EMS arrived to her in respiratory distress with O2 sats in the 80s and very tight and minimally wheezy lung sounds. CPAP was placed and nebs were given with some improvement of breath sounds, but not symptoms. EtCO2 was reported in the 80s. She notes dyspnea starting today, worse tonight. Not better with home nebs. Also notes chest tightness. Denies sputum changes, back pain, hemoptysis, f/c, n/v, diarrhea. Review of Systems Review of Systems Constitutional: Denies fever or chills [] Eyes: Denies change in visual acuity, redness, or eye pain [] HENT: Denies nasal congestion or sore throat [] Respiratory: Has cough and shortness of breath [] Cardiovascular: No additional information not addressed in HPI [] GI: Denies abdominal pain, nausea, vomiting, bloody stools or diarrhea [] : Denies dysuria or hematuria [] Musculoskeletal: Denies back pain or joint pain [] Integument: Denies rash or skin lesions [] Neurologic: Denies headache, focal weakness or sensory changes [] Endocrine: Denies polyuria or polydipsia [] Current Medications Current Medications Current Medications Medications (Trade) Dose Ordered Sig/Jesus Manuel Start Time Stop Time Status Last Admin Dose Admin Albuterol Sulfate (Ventolin Neb Soln) 2.5 mg STK-MED ONCE 01/17/17 21:44 01/17/17 21:45 DC Albuterol/ Ipratropium (Duoneb) 3 ml STK-MED ONCE 01/17/17 21:44 01/17/17 21:45 DC Fentanyl Citrate (Fentanyl 2ml Vial) 50 mcg PRN Q15MIN PRN 01/17/17 21:45 01/18/17 21:44 01/17/17 22:44 50 MCG Ipratropium [place] (Atrovent) 0.5 mg 1X ONCE 01/17/17 21:45 01/17/17 22:00 DC Methylprednisolone Sodium Succinate (Solu-Medrol 125mg Vial) 125 mg 1X ONCE 01/17/17 21:45 01/17/17 21:46 DC 01/17/17 22:06 125 MG Allergies Allergies Allergies Coded Allergies Type Severity Reaction Last Updated Verified No Known Drug Allergies 12/23/16 No Physical Exam Physical Exam Constitutional: Well developed, well nourished, severe distress, non-toxic appearance. [] HENT: Normocephalic, atraumatic, bilateral external ears normal, oropharynx moist, no oral exudates, nose normal. [] Eyes: PERRLA, EOMI. [] Neck: Normal range of motion, no tenderness, supple, no stridor. [] Cardiovascular: Regular tachycardia [] Lungs & Thorax: Bilateral wheezing and tight breath sounds, prolonged expiratory phase, no crackles, tachypnea, tracheal tugging [] Abdomen: Bowel sounds normal, soft, no tenderness. [] Skin: Warm, dry, no erythema, no rash. [] Back: Normal range of motion. [] Extremities: No tenderness, ROM intact, bilateral 2+ lower extremity edema. [] Neurologic: Alert and oriented X 3, normal motor function, normal sensory function, no focal deficits noted. [] Psychologic: Affect normal, judgement normal, mood normal. [] Current Patient Data Vital Signs Vital Signs Date Time Temp Pulse Resp B/P Pulse Ox O2 Delivery O2 Flow Rate FiO2 01/17/17 21:40 93 BiPAP/CPAP 01/17/17 21:40 98.0 134 28 235/134 98.0 Lab Values Laboratory Tests Test 01/17/17 21:42 White Blood Count 16.5x10^3/uL (4.0-11.0) H Red Blood Count 4.15x10^6/uL (3.50-5.40) Hemoglobin 12.0g/dL (12.0-15.5) Hematocrit 37.3% (36.0-47.0) Mean Corpuscular Volume 90fL (79-100) Mean Corpuscular Hemoglobin 29pg (25-35) Mean Corpuscular Hemoglobin Concent 32g/dL (31-37) Red Cell Distribution Width 13.7% (11.5-14.5) Platelet Count 398x10^3/uL (140-400) Neutrophils (%) (Auto) 53% (31-73) Lymphocytes (%) (Auto) 35% (24-48) Monocytes (%) (Auto) 8% (0-9) Eosinophils (%) (Auto) 4% (0-3) H Basophils (%) (Auto) 1% (0-3) Neutrophils # (Auto) 8.8x10^3uL (1.8-7.7) H Lymphocytes # (Auto) 5.7x10^3/uL (1.0-4.8) H Monocytes # (Auto) 1.3x10^3/uL (0.0-1.1) H Eosinophils # (Auto) 0.6x10^3/uL (0.0-0.7) Basophils # (Auto) 0.1x10^3/uL (0.0-0.2) O2 Saturation 68% (92-99) *L Arterial Blood pH 7.30 (7.35-7.45) L Arterial Blood pCO2 at Patient Temp 58mmHg (35-46) H Arterial Blood pO2 at Patient Temp < 42mmHg (75-108) *L Arterial Blood HCO3 28mmol/L (21-28) Arterial Blood Base Excess 0mmol/L (-3-3) Oxyhemoglobin 66.9% Methemoglobin 0.6% (0.0-1.9) Carbon Monoxide, Quantitative 0.4% (0.0-1.9) FiO2 40.0 Sodium Level 140mmol/L (136-145) Potassium Level 4.9mmol/L (3.5-5.1) Chloride Level 101mmol/L (98-107) Carbon Dioxide Level 31mmol/L (21-32) Anion Gap 8 (6-14) Blood Urea Nitrogen 23mg/dL (7-20) H Creatinine 1.4mg/dL (0.6-1.0) H Estimated GFR (Cockcroft-Gault) 39.2 Glucose Level 374mg/dL (70-99) H Calcium Level 8.9mg/dL (8.5-10.1) Troponin I Quantitative 0.306ng/mL (0.000-0.055) DC-Ome-P-Type Natriuretic Peptide 1398pg/mL (0-124) H Laboratory Tests 01/17/17 21:42 Laboratory Tests 01/17/17 21:42 EKG EKG EKG as interpreted by me as sinus tachycardia, rate 133, no ST-T changes, normal intervals, no ectopy, 2141 EKG as interpreted by me as sinus tachycardia, rate 112, no ST-T changes, normal intervals, no ectopy, 2214 Radiology/Procedures Radiology/Procedures Chest x-ray as interpreted by me with bilateral pulmonary edema worse in both bases, no obvious focal infiltrate otherwise Course & Med Decision Making Course & Med Decision Making Pertinent Labs and Imaging studies reviewed. (See chart for details) She arrived in respiratory distress with CPAP in place. This was changed to BiPAP upon arrival. She was initially hypertensive and tachycardic; these improved with therapy here. She has wheezing and pulmonary edema concerning for combined COPD/CHF exacerbations causing acute on chronic respiratory failure that is hypoxemic and hypercarbic. ABG shows pH 7.316, pCO2 52, pO2 124 , HCO3 26. She was given steroids, nebs, levofloxacin, and lasix for combined therapy. Troponin and proBNP are elevated. She was given dose of lovenox for this. She will be admitted to the ICU for further care. Discussed case with Dr. Blakely, who will admit. Cardiology and pulmonology consultations placed. Dragon Disclaimer Dragon Disclaimer This electronic medical record was generated, in whole or in part, using a voice recognition dictation system. Critical Care Time Critical care time was 40 minutes exclusive of procedures. Departure Departure Impression: Primary Impression: Acute and chronic respiratory failure ([id number]) Additional Impressions: Acute on chronic congestive heart failure COPD exacerbation Disposition: ADMITTED INPATIENT Condition: CRITICAL Referrals: JOSE BLAKELY MD (PCP) Problem Qualifiers Primary Impression: Acute and chronic respiratory failure ([id number]) Respiratory failure complication: hypoxia and hypercapnia Qualified Code: J96.21 - Acute and chronic respiratory failure with hypoxia Additional Impressions: Acute on chronic congestive heart failure Congestive heart failure type: unspecified congestive heart failure type Qualified Code: I50.9 - Heart failure, unspecified Laith ARIZMENDI MD Jan 17, 2017 22:10
[2017-01-17] MEDS ORDERED: ALBUTEROL SULFATE 2.5 MG/3 ML NEBU. CONT NEB ONE (22:15)
[2017-01-17] MEDS ORDERED: LEVOFLOXACIN PER PHARMACY MC PRN (22:30)
[2017-01-17] MEDS ORDERED: FUROSEMIDE 40 MG/4 ML VIAL. IVP ONE (22:30)
--- NOTE | 2017-01-17 22:41 | ACF ---
Admission Forms Criteria RESPIRATORY FAILURE [facility] Clinical Indications for Admission to Inpatient Care (Place 'X' for any and all applicable criteria): Hospital admission is needed for appropriate care of the patient because of acute respiratory failure or insufficiency as indicated by ANY ONE of the following(1)(2)(3)(4)(5)(6)(7)(8): [X]I. Mechanical ventilation needed (acute invasive or noninvasive) [ ]II. Severe ventilation deficit as indicated by ANY ONE of the following (9) [ ]a) Respiratory acidosis (pH less than 7.32 and partial pressure of carbon dioxide greater than 40 mm Hg (5.3 kPa)) [ ]b) Partial pressure of carbon dioxide greater than 44 mm Hg (5.9 kPa ) (new) [ ]c) Airflow measurements less than 25% of predicted (eg, peak expiratory flow rate less than 100 L/minute) [ ]d) Forced vital capacity less than 15 mL/kg of ideal body weight, or 50% decrease in vital capacity from baseline [ ]III. Noncardiac pulmonary edema not resolving with rapid emergency treatment (8) [ ]IV. Severe respiratory distress as indicated by ANY ONE of the following: [ ]a) Severe tachypnea (respiratory rate greater than 30, greater than 45 for 6-month-old, greater than 60 for ) [ ]b) Severe hypoxemia (partial pressure of oxygen less than 50 mm Hg ( 6.7 kPa) on greater than 50% oxygen or partial pressure of oxygen to FIO2 ratio less than 200) [ ]c) Mental status deterioration from respiratory disease [ ]V. Airway obstruction or inadequate protection [A](10)(11) The original [facility] content created by [facility] has been revised. The portions of the content which have been revised are identified through the use of italic text or in bold, and [facility] has neither reviewed nor approved the modified material. All other unmodified content is copyright [facility]. Please see references footnoted in the original [facility] edition 2016 Admission Criteria Met?: Yes PRASHANTH FERNÁNDEZ Jan 17, 2017 22:41
[2017-01-17 22:48] LABS: CARBON MONOXIDE 0.4 % (0.0-1.9); METHEMOGLOBIN 0.6 % (0.0-1.9); OXYHEMOGLOBIN 66.9 %; TOTAL HEMOGLOBIN 11.5 g/dL
[2017-01-17 23:04] LABS: BILIRUBIN,URINE NEGATIVE (NEG); GLUCOSE,URINE >=1000 mg/dL (NEG); NITRITE,URINE NEGATIVE (NEG); PROTEIN,URINE 100 mg/dL (NEG-TRACE); UROBILINOGEN,URINE 0.2 mg/dL (0.2 mg/dL)
[2017-01-17 23:10] LABS: BARBITURATES NEG (NEG); BENZODIAZEPINES NEG (NEG); CANNABINOIDS NEG (NEG); COCAINE NEG (NEG); METHADONE NEG (NEG); OPIATES POS (NEG); PHENCYCLIDINE NEG (NEG)
[2017-01-17 23:13] LABS: BACTERIA,URINE MANY /HPF (0-FEW); RBC,URINE 0 /HPF (0-2); SQUAMOUS EPITHELIAL CELL,UR MOD /LPF
[2017-01-17] MEDS ORDERED: ACETAMINOPHEN 325 MG TABLET. PO PRN (23:30)
[2017-01-17] MEDS ORDERED: ONDANSETRON PF 4 MG/2 ML VIAL. IV PRN (23:30)
[2017-01-17] MEDS ORDERED: NITROGLYCERIN SUBLINGUAL 0.4 MG BOTTLE OF 25. SL PRN (23:30)
[2017-01-17 23:45] VITALS: BP 189/93
[2017-01-18] VITALS (22 sets, daily range): BP systolic 89–204; BP diastolic 57–108
[2017-01-18 00:21] LABS: PCO2 COOX 52 mmHg (35-46); PH COOX 7.32 (7.35-7.45)
[2017-01-18 00:22] LABS: HCO3 COOX 26 mmol/L (21-28); PO2 COOX 125 mmHg (75-108)
[2017-01-18 00:23] LABS: BASE EXCESS COOX 1 mmol/L (-3-3); SAT O2 COOX 97 % (92-99)
[2017-01-18] MEDS: IV 1/2 NORMAL SALINE 1,000 ML IV SCH (00:51)
--- NOTE | 2017-01-18 01:23 | EKG ---
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
--- NOTE | 2017-01-18 01:24 | EKG ---
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
[2017-01-18] MEDS ORDERED: tiZANidine 4 MG TABLET. PO PRN ×3 (01:45→08:15)
[2017-01-18 06:41] LABS: BASO % 0 % (0-3); EOS % 0 % (0-3); HEMATOCRIT 33.8 % (36.0-47.0); HEMOGLOBIN 11.5 g/dL (12.0-15.5); LYMPH # 0.8 x10^3/uL (1.0-4.8); LYMPH % 6 % (24-48); MEAN CORPUSCULAR HEMOGLOBIN 30 pg (25-35); MEAN CORPUSCULAR HGB CONC 34 g/dL (31-37); MEAN CORPUSCULAR VOLUME 88 fL (79-100); MONO % 1 % (0-9); NEUT % 93 % (31-73); PLATELET COUNT 296 x10^3/uL (140-400); RED BLOOD COUNT 3.85 x10^6/uL (3.50-5.40); RED CELL DISTRIBUTION WIDTH 13.7 % (11.5-14.5); WHITE BLOOD COUNT 12.5 x10^3/uL (4.0-11.0)
[2017-01-18 06:52] LABS: CREATININE 1.6 mg/dL (0.6-1.0); GFR 33.6; POTASSIUM 4.2 mmol/L (3.5-5.1)
[2017-01-18] MEDS ORDERED: NITROGLYCERIN SUBLINGUAL 0.4 MG BOTTLE OF 25. SL PRN (07:45)
[2017-01-18] MEDS ORDERED: DEXTROSE 50% 25 GM / 50ML DISP.SYRIN. IV PRN (07:45)
[2017-01-18] MEDS: IPRATRPIUM/ALBUTEROL 0.5/2.5MG 3 ML NEBU. NEB SCH ×5 (08:14→20:36)
[2017-01-18 08:23] LABS: HCO3 ABG 30 mmol/L (21-28); PCO2 ABG 48 mmHg (35-46); PH ABG 7.41 (7.35-7.45); PO2 ABG 77 mmHg (75-108); SAT O2 ABG 95 % (92-99)
--- NOTE | 2017-01-18 08:26 | RAD ---
Portable chest, 01/17/2017: History: Dyspnea Comparison is made to a study from 12/23/2016. The heart is enlarged. There is calcific plaquing of the aorta. There are surgical clips projected over the right paraspinous region in the upper chest. The pulmonary vascularity is prominent. There is mild right basilar infiltrate with loss of definition of the vascular margins. No definite pleural fluid is seen on this AP view. IMPRESSION: Cardiomegaly with vascular congestion and mild parahilar-perivascular pulmonary edema. A component of pneumonia cannot be excluded.
--- NOTE | 2017-01-18 08:36 | PDOC ---
Provider Note Provider Note See admission H&P dictation #[id number] Impression; 1. Acute on chronic respiratory failure, multifactorial likely in nature: 2. COPD exacerbation: 3. Acute on chronic diastolic congestive heart failure: 4. Uncontrolled diabetes mellitus type 2: 5. Hypertension: 6. Morbid obesity: 7. History of obstructive sleep apnea and pulmonary hypertension. JOSE BLAKELY MD Jan 18, 2017 08:36
[2017-01-18] MEDS: ASPIRIN CHEWABLE 81 MG TABLET. PO SCH (08:42)
[2017-01-18] MEDS: FENOFIBRATE,MICRONIZED 134 MG CAPSULE PO SCH (08:42)
[2017-01-18] MEDS: DABIGATRAN ETEXILATE 150 MG CAPSULE. PO SCH ×2 (08:42→21:17)
[2017-01-18] MEDS: LEVOTHYROXINE 50 MCG TABLET PO SCH (08:42)
[2017-01-18] MEDS: DULoxetine HCL 30 MG CAPSULE.DR PO SCH ×2 (08:43→21:18)
[2017-01-18] MEDS: PREGABALIN 75 MG CAPSULE PO SCH ×2 (08:43→21:18)
[2017-01-18] MEDS: PANTOPRAZOLE 40 MG TABLET.DR. PO SCH (08:43)
[2017-01-18] MEDS: METOLAZONE 2.5 MG TABLET PO SCH (08:43)
[2017-01-18] MEDS: INSULIN ASPART 300 UNITS/3 ML INSULN.PEN SQ SCH ×5 (08:52→16:59)
[2017-01-18 09:21] LABS: PLT ESTIMATE ADEQUATE (ADEQUATE)
[2017-01-18] MEDS: ISOSORBIDE MONONITRATE ER 30 MG TAB.ER.24H PO SCH (09:49)
[2017-01-18] MEDS ORDERED: INSULIN ASPART 300 UNITS/3 ML INSULN.PEN SQ ONE (10:30)
[2017-01-18] MEDS ORDERED: INSULIN ASPART 300 UNITS/3 ML INSULN.PEN SQ SCH (11:30)
[2017-01-18] MEDS ORDERED: amLODIPine BESYLATE 5 MG TABLET PO SCH (13:00)
--- NOTE | 2017-01-18 13:01 | PDOC2 ---
CONSULT Date of Consult Date of Consult DATE: 01/18/17 TIME: 12:53 Reason for Consult Reason for Consult: Respiratory failure; CHF Identification/Chief Complaint Chief Complaint Dyspnea Source Source: Chart review, Patient History of Present Illness Reason for Visit: 56yo F presents to ED with dyspnea beginning yesterday. PMH significant for DM2 , COPD, CAD, CHF, HTN. O2 sats were in the 80s when EMS brought patient to ED. After bipap and nebs in the ED, patient lung sounds improved but symptoms did not. She was given steroids, nebs, levofloxacin, and lasix. Her troponins were 0.306 and proBNP 1398. She was admitted to the ICU. Since admission, she feels her SOB has improved. But still complains of the sensation of pressure on her chest. Past Medical History Cardiovascular: CAD, CHF, HTN, DE, Other Pulmonary: COPD, Pulmonary embolus, Other CENTRAL NERVOUS SYSTEM: CVA, Periperal neuropathy, Other GI: Other Heme/Onc: No pertinent hx Hepatobiliary: No pertinent hx Psych: Depression, Other Musculoskeletal: low back pain, Osteoarthritis Rheumatologic: Gout Infectious disease: No pertinent hx Renal/: UTI, Urinary Incontinence Endocrine: Diabetes Past Surgical History Past Surgical History: Cholecystectomy, Hernia Repair, Hysterectomy, Other Family History Family History: Coronary Artery Disease, Diabetes Social History ALCOHOL: none Drugs: None Current Problem List Problem List Problems Medical Problems: (1) Acute and chronic respiratory failure ([id number]) Status: Acute (2) Acute on chronic congestive heart failure Status: Acute (3) COPD exacerbation Status: Acute Current Medications Current Medications Current Medications Ipratropium [place] (Atrovent) 0.5 mg 1X ONCE NEB ; Start 01/17/17 at 21:45; Stop 01/17/17 at 22:00; Status DC Methylprednisolone Sodium Succinate (Solu-Medrol 125mg Vial) 125 mg 1X ONCE IV Last administered on 01/17/17 22:06; Start 01/17/17 at 21:45; Stop 01/17/17 at 21:46; Status DC Fentanyl Citrate (Fentanyl 2ml Vial) 50 mcg PRN Q15MIN PRN IV PAIN GREATER THAN 3/10 Last administered on 01/17/17 22:44; Start 01/17/17 at 21:45; Stop at 08:20; Status DC Albuterol/ Ipratropium (Duoneb) 3 ml STK-MED ONCE .ROUTE ; Start 01/17/17 at 21: 44; Stop 01/17/17 at 21:45; Status DC Albuterol Sulfate (Ventolin Neb Soln) 2.5 mg STK-MED ONCE .ROUTE ; Start at 21:44; Stop 01/17/17 at 21:45; Status DC Albuterol/ Ipratropium (Duoneb) 3 ml 1X ONCE NEB Last administered on 22:03; Start 01/17/17 at 22:00; Stop 01/17/17 at 22:01; Status DC Albuterol Sulfate (Ventolin Neb Soln) 10 mg 1X ONCE CONT NEB Last administered on 01/17/17 21:50; Start 01/17/17 at 22:15; Stop 01/17/17 at 22:16 ; Status DC Furosemide (Lasix) 40 mg 1X ONCE IVP Last administered on 01/17/17 22:45; Start 01/17/17 at 22:30; Stop 01/17/17 at 22:31; Status DC Levofloxacin/ Dextrose 1 each 1 each PRN DAILY PRN MC SEE COMMENTS; Start 01/17 at 22:30 Levofloxacin/ Dextrose (LEVAQUIN 500mg PREMIX) 100 ml @ 100 mls/hr 1X ONCE IV Last administered on 01/18/17 00:38; Start 01/17/17 at 23:00; Stop 01/17/17 at 23:59; Status DC Enoxaparin Sodium (Lovenox 100mg Syringe) 100 mg 1X ONCE SQ Last administered on 01/18/17 02:14; Start 01/17/17 at 23:30; Stop 01/17/17 at 23:31; Status DC Ondansetron HCl (Zofran) 4 mg PRN Q8HRS PRN IV NAUSEA/VOMITING; Start 01/17/17 at 23:30; Stop 01/18/17 at 23:29 Fentanyl Citrate (Fentanyl 2ml Vial) 50 mcg PRN Q2HR PRN IV PAIN; Start at 23:30; Stop 01/18/17 at 23:29 Acetaminophen (Tylenol) 650 mg PRN Q4HRS PRN PO FEVER; Start 01/17/17 at 23:30 ; Stop 01/18/17 at 23:29 Nitroglycerin (Nitrostat) 0.4 mg PRN Q5MIN PRN SL CHEST PAIN; Start 01/17/17 at 23:30; Stop 01/18/17 at 23:29 Albuterol/ Ipratropium 3 ml 3 ml RTQID NEB Last administered on 01/18/17 11:45 ; Start 01/18/17 at 08:00; Stop 01/19/17 at 07:59 Levofloxacin/ Dextrose 100 ml @ 100 mls/hr Q24H IV ; Start 01/18/17 at 21:00 Sodium Chloride 1,000 ml @ 40 mls/hr Q24H IV Last administered on 01/18/17 00 :51; Start 01/18/17 at 00:45 Nicardipine HCl/ Sodium Chloride (Cardene/Iv Sodium Chloride 0.9% 250ml) 270 ml @ 0 mls/hr CONT PRN IV SEE I/O RECORD Last administered on 01/18/17 01:41; Start 01/18/17 at 00:45 Tizanidine HCl (Zanaflex) 4 mg PRN Q8HRS PRN PO MUSCLE SPASMS Last administered on 01/18/17 02:23; Start 01/18/17 at 01:45 Tizanidine HCl (Zanaflex) 2 mg PRN Q8HRS PRN PO MUSCLE SPASMS; Start 01/18/17 at 01:45; Status UNV Insulin Aspart (Novolog) 0-9 UNITS TIDWMEALS SQ Last administered on 01/18/17 12:09; Start 01/18/17 at 08:00 Dextrose (Dextrose 50%-Water Syringe) 12.5 gm PRN Q15MIN PRN IV SEE COMMENTS; Start 01/18/17 at 07:45 Aspirin (Children'S Aspirin) 81 mg DAILY PO Last administered on 01/18/17 08: 42; Start 01/18/17 at 09:00 Atorvastatin Calcium (Lipitor) 20 mg QHS PO ; Start 01/18/17 at 21:00 Dabigatran (Pradaxa) 150 mg BID PO Last administered on 01/18/17 08:42; Start 01/18/17 at 09:00 Fenofibrate (Lofibra) 134 mg DAILY PO Last administered on 01/18/17 08:42; Start 01/18/17 at 09:00 Acetaminophen/ Hydrocodone Bitart (Lortab 10/325) 1 tab PRN Q6HRS PRN PO PAIN; Start 01/18/17 at 07:45 Isosorbide Mononitrate (Imdur) 60 mg DAILY PO Last administered on 01/18/17 09 :49; Start 01/18/17 at 09:00 Levothyroxine Sodium (Synthroid) 50 mcg DAILY07 PO Last administered on 08:42; Start 01/18/17 at 08:00 Nitroglycerin (Nitrostat) 0.4 mg PRN Q5MIN PRN SL CP RATING > 1/10; Start 01/18 at 07:45 Duloxetine HCl (Cymbalta) 60 mg BID PO Last administered on 01/18/17 08:43; Start 01/18/17 at 09:00 Pantoprazole Sodium (Protonix) 40 mg DAILYAC PO Last administered on 01/18/17 08:43; Start 01/18/17 at 08:30 Insulin Detemir (Levemir) 35 units BID SQ ; Start 01/18/17 at 21:00 Insulin Aspart (Novolog) 30 units TIDAC SQ Last administered on 01/18/17 12:09 ; Start 01/18/17 at 11:30 Pregabalin (Lyrica) 150 mg BID PO Last administered on 01/18/17 08:43; Start 01/18/17 at 09:00 Tizanidine HCl (Zanaflex) 4 mg PRN Q8HRS PRN PO MUSCLE SPASMS; Start 01/18/17 at 08:15 Metolazone (Zaroxolyn) 2.5 mg MoWeFr PO Last administered on 01/18/17 08:43; Start 01/18/17 at 09:00 Albuterol/ Ipratropium (Duoneb) 3 ml QID NEB ; Start 01/18/17 at 09:00 Insulin Aspart (Novolog) 30 units TIDAC SQ ; Start 01/18/17 at 11:30; Status UNV Insulin Aspart (Novolog) 30 units 1X ONCE SQ Last administered on 01/18/17 08 :55; Start 01/18/17 at 10:30; Stop 01/18/17 at 10:31; Status DC Lisinopril (Prinivil) 20 mg BID PO ; Start 01/18/17 at 13:00 Metoprolol Tartrate (Lopressor) 50 mg BID PO ; Start 01/18/17 at 13:00 Amlodipine Besylate (Norvasc) 5 mg DAILY PO ; Start 01/18/17 at 13:00 Active Scripts Active Coreg (Carvedilol) 3.125 Mg Tablet 1 Tab PO BID Humalog (Insulin Lispro) 100 Unit/1 Ml Insuln.pen 30 Unit SQ TIDAC Duoneb 0.5-3(2.5) Mg/3 Ml (Albuterol/Ipratropium) 3 Ml Ampul.neb 3 Ml NEB PRN QID Isosorbide Mononitrate Er (Isosorbide Mononitrate) 60 Mg Tab.er.24h 1 Tab PO DAILY [Metronidazole] 500 MG Tablet 500 Mg PO Q8HRS [Metolazone] 2.5 MG Tablet 2.5 Mg PO 3X/WEEK take on Mon, Wed, Mon AM Lantus (Insulin Glargine,Hum.rec.anlog) 100 Unit/1 Ml Vial 35 Unit SQ BID Nitrostat (Nitroglycerin) 0.4 Mg Tab.subl 0.4 Mg SL PRN Q5MIN PRN 30 Days Reported Lyrica (Pregabalin) 150 Mg Capsule 1 Cap PO BID Cymbalta (Duloxetine Hcl) 60 Mg Capsule.dr 1 Cap PO BID Atorvastatin Calcium 20 Mg Tablet 1 Tab PO DAILY Nexium Capsule (Esomeprazole Magnesium) 40 Mg Capsule.dr 1 Cap PO DAILY Aspirin 81 Mg Tab.chew 1 Tab PO DAILY Pradaxa (Dabigatran Etexilate Mesylate) 150 Mg Capsule 1 Cap PO BID Levothyroxine Sodium 50 Mcg Tablet 1 Tab PO DAILY Fenofibrate (Fenofibrate,Micronized) 134 Mg Capsule 1 Cap PO DAILY Zanaflex (Tizanidine Hcl) 4 Mg Capsule 4 Mg PO PRN Q8HRS PRN as needed for muscle cramps no more than every 8hrs Hydrocodone-Apap 10-325 (Hydrocodone Bit/Acetaminophen) 1 Each Tablet 1 Tab PO PRN Q6HRS PRN as needed for pain every 6 hours Allergies Allergies: Coded Allergies: No Known Drug Allergies (Unverified , 3/31/17) Physical Exam General: Alert, Oriented X3, Cooperative, No acute distress HEENT: Atraumatic, EOMI Lungs: Other (Limited breath sounds) Heart: Regular rate, Normal S1, Normal S2 Abdomen: Soft, No tenderness Extremities: Other (trace edema b/l lower extremities) Skin: No rashes, No significant lesion Neuro: Normal speech Psych/Mental Status: Mental status NL Vitals VITALS Vital Signs Date Time Temp Pulse Resp B/P Pulse Ox O2 Delivery O2 Flow Rate FiO2 01/18/17 11:46 98 Nasal Cannula 3.0 01/18/17 11:00 96 22 136/57 01/18/17 08:00 97.8 97.8 Labs Labs Laboratory Tests Test 01/17/17 21:42 01/17/17 22:40 01/17/17 23:45 01/18/17 06:02 White Blood Count 16.5x10^3/uL (4.0-11.0) 12.5x10^3/uL (4.0-11.0) Red Blood Count 4.15x10^6/uL (3.50-5.40) 3.85x10^6/uL (3.50-5.40) Hemoglobin 12.0g/dL (12.0-15.5) 11.5g/dL (12.0-15.5) Hematocrit 37.3% (36.0-47.0) 33.8% (36.0-47.0) Mean Corpuscular Volume 90fL (79-100) 88fL (79-100) Mean Corpuscular Hemoglobin 29pg (25-35) 30pg (25-35) Mean Corpuscular Hemoglobin Concent 32g/dL (31-37) 34g/dL (31-37) Red Cell Distribution Width 13.7% (11.5-14.5) 13.7% (11.5-14.5) Platelet Count 398x10^3/uL (140-400) 296x10^3/uL (140-400) Neutrophils (%) (Auto) 53% (31-73) 93% (31-73) Lymphocytes (%) (Auto) 35% (24-48) 6% (24-48) Monocytes (%) (Auto) 8% (0-9) 1% (0-9) Eosinophils (%) (Auto) 4% (0-3) 0% (0-3) Basophils (%) (Auto) 1% (0-3) 0% (0-3) Neutrophils # (Auto) 8.8x10^3uL (1.8-7.7) 11.6x10^3uL (1.8-7.7) Lymphocytes # (Auto) 5.7x10^3/uL (1.0-4.8) 0.8x10^3/uL (1.0-4.8) Monocytes # (Auto) 1.3x10^3/uL (0.0-1.1) 0.1x10^3/uL (0.0-1.1) Eosinophils # (Auto) 0.6x10^3/uL (0.0-0.7) 0.0x10^3/uL (0.0-0.7) Basophils # (Auto) 0.1x10^3/uL (0.0-0.2) 0.0x10^3/uL (0.0-0.2) O2 Saturation 97% (92-99) Arterial Blood pH 7.32 (7.35-7.45) Arterial Blood pCO2 at Patient Temp 52mmHg (35-46) Arterial Blood pO2 at Patient Temp 125mmHg (75-108) Arterial Blood HCO3 26mmol/L (21-28) Arterial Blood Base Excess 1mmol/L (-3-3) Oxyhemoglobin 66.9% Methemoglobin 0.6% (0.0-1.9) Carbon Monoxide, Quantitative 0.4% (0.0-1.9) FiO2 40.0 Sodium Level 140mmol/L (136-145) 136mmol/L (136-145) Potassium Level 4.9mmol/L (3.5-5.1) 4.2mmol/L (3.5-5.1) Chloride Level 101mmol/L (98-107) 96mmol/L (98-107) Carbon Dioxide Level 31mmol/L (21-32) 29mmol/L (21-32) Anion Gap 8 (6-14) 11 (6-14) Blood Urea Nitrogen 23mg/dL (7-20) 25mg/dL (7-20) Creatinine 1.4mg/dL (0.6-1.0) 1.6mg/dL (0.6-1.0) Estimated GFR (Cockcroft-Gault) 39.2 33.6 Glucose Level 374mg/dL (70-99) 567mg/dL (70-99) Calcium Level 8.9mg/dL (8.5-10.1) 9.0mg/dL (8.5-10.1) Troponin I Quantitative 0.306ng/mL (0.000-0.055) DN-Kbd-O-Type Natriuretic Peptide 1398pg/mL (0-124) Urine Collection Type Unknown Urine Color Yellow Urine Clarity Clear Urine pH 5.0 Urine Specific Severance 1.020 Urine Protein 100mg/dL (NEG-TRACE) Urine Glucose (UA) >=1000mg/dL (NEG) Urine Ketones (Stick) Negativemg/dL (NEG) Urine Blood Negative (NEG) Urine Nitrite Negative (NEG) Urine Bilirubin Negative (NEG) Urine Urobilinogen Dipstick 0.2mg/dL (0.2 mg/dL) Urine Leukocyte Esterase Negative (NEG) Urine RBC 0/HPF (0-2) Urine WBC 1-4/HPF (0-4) Urine Squamous Epithelial Cells Mod/LPF Urine Bacteria Many/HPF (0-FEW) Urine Mucus Mod/LPF Urine Opiates Screen Pos (NEG) Urine Methadone Screen Neg (NEG) Urine Barbiturates Neg (NEG) Urine Phencyclidine Screen Neg (NEG) Urine Amphetamine/Methamphetamine Neg (NEG) Urine Benzodiazepines Screen Neg (NEG) Urine Cocaine Screen Neg (NEG) Urine Cannabinoids Screen Neg (NEG) Urine Ethyl Alcohol Neg (NEG) Nasal Screen MRSA (PCR) Negative (Negative) Segmented Neutrophils % 94% (35-66) Band Neutrophils % 1% (0-9) Lymphocytes % 4% (24-48) Monocytes % 1% (0-10) Platelet Estimate Adequate (ADEQUATE) Test 01/18/17 08:15 01/18/17 11:58 O2 Saturation 95% (92-99) Arterial Blood pH 7.41 (7.35-7.45) Arterial Blood pCO2 at Patient Temp 48mmHg (35-46) Arterial Blood pO2 at Patient Temp 77mmHg (75-108) Arterial Blood HCO3 30mmol/L (21-28) Arterial Blood Base Excess 4mmol/L (-3-3) FiO2 34% Glucose (Fingerstick) 443mg/dL (70-99) Laboratory Tests Test 01/17/17 21:42 01/17/17 22:40 01/17/17 23:45 01/18/17 06:02 White Blood Count 16.5x10^3/uL (4.0-11.0) 12.5x10^3/uL (4.0-11.0) Red Blood Count 4.15x10^6/uL (3.50-5.40) 3.85x10^6/uL (3.50-5.40) Hemoglobin 12.0g/dL (12.0-15.5) 11.5g/dL (12.0-15.5) Hematocrit 37.3% (36.0-47.0) 33.8% (36.0-47.0) Mean Corpuscular Volume 90fL (79-100) 88fL (79-100) Mean Corpuscular Hemoglobin 29pg (25-35) 30pg (25-35) Mean Corpuscular Hemoglobin Concent 32g/dL (31-37) 34g/dL (31-37) Red Cell Distribution Width 13.7% (11.5-14.5) 13.7% (11.5-14.5) Platelet Count 398x10^3/uL (140-400) 296x10^3/uL (140-400) Neutrophils (%) (Auto) 53% (31-73) 93% (31-73) Lymphocytes (%) (Auto) 35% (24-48) 6% (24-48) Monocytes (%) (Auto) 8% (0-9) 1% (0-9) Eosinophils (%) (Auto) 4% (0-3) 0% (0-3) Basophils (%) (Auto) 1% (0-3) 0% (0-3) Neutrophils # (Auto) 8.8x10^3uL (1.8-7.7) 11.6x10^3uL (1.8-7.7) Lymphocytes # (Auto) 5.7x10^3/uL (1.0-4.8) 0.8x10^3/uL (1.0-4.8) Monocytes # (Auto) 1.3x10^3/uL (0.0-1.1) 0.1x10^3/uL (0.0-1.1) Eosinophils # (Auto) 0.6x10^3/uL (0.0-0.7) 0.0x10^3/uL (0.0-0.7) Basophils # (Auto) 0.1x10^3/uL (0.0-0.2) 0.0x10^3/uL (0.0-0.2) O2 Saturation 97% (92-99) Arterial Blood pH 7.32 (7.35-7.45) Arterial Blood pCO2 at Patient Temp 52mmHg (35-46) Arterial Blood pO2 at Patient Temp 125mmHg (75-108) Arterial Blood HCO3 26mmol/L (21-28) Arterial Blood Base Excess 1mmol/L (-3-3) Oxyhemoglobin 66.9% Methemoglobin 0.6% (0.0-1.9) Carbon Monoxide, Quantitative 0.4% (0.0-1.9) FiO2 40.0 Sodium Level 140mmol/L (136-145) 136mmol/L (136-145) Potassium Level 4.9mmol/L (3.5-5.1) 4.2mmol/L (3.5-5.1) Chloride Level 101mmol/L (98-107) 96mmol/L (98-107) Carbon Dioxide Level 31mmol/L (21-32) 29mmol/L (21-32) Anion Gap 8 (6-14) 11 (6-14) Blood Urea Nitrogen 23mg/dL (7-20) 25mg/dL (7-20) Creatinine 1.4mg/dL (0.6-1.0) 1.6mg/dL (0.6-1.0) Estimated GFR (Cockcroft-Gault) 39.2 33.6 Glucose Level 374mg/dL (70-99) 567mg/dL (70-99) Calcium Level 8.9mg/dL (8.5-10.1) 9.0mg/dL (8.5-10.1) Troponin I Quantitative 0.306ng/mL (0.000-0.055) UR-Ohx-L-Type Natriuretic Peptide 1398pg/mL (0-124) Urine Collection Type Unknown Urine Color Yellow Urine Clarity Clear Urine pH 5.0 Urine Specific Severance 1.020 Urine Protein 100mg/dL (NEG-TRACE) Urine Glucose (UA) >=1000mg/dL (NEG) Urine Ketones (Stick) Negativemg/dL (NEG) Urine Blood Negative (NEG) Urine Nitrite Negative (NEG) Urine Bilirubin Negative (NEG) Urine Urobilinogen Dipstick 0.2mg/dL (0.2 mg/dL) Urine Leukocyte Esterase Negative (NEG) Urine RBC 0/HPF (0-2) Urine WBC 1-4/HPF (0-4) Urine Squamous Epithelial Cells Mod/LPF Urine Bacteria Many/HPF (0-FEW) Urine Mucus Mod/LPF Urine Opiates Screen Pos (NEG) Urine Methadone Screen Neg (NEG) Urine Barbiturates Neg (NEG) Urine Phencyclidine Screen Neg (NEG) Urine Amphetamine/Methamphetamine Neg (NEG) Urine Benzodiazepines Screen Neg (NEG) Urine Cocaine Screen Neg (NEG) Urine Cannabinoids Screen Neg (NEG) Urine Ethyl Alcohol Neg (NEG) Nasal Screen MRSA (PCR) Negative (Negative) Segmented Neutrophils % 94% (35-66) Band Neutrophils % 1% (0-9) Lymphocytes % 4% (24-48) Monocytes % 1% (0-10) Platelet Estimate Adequate (ADEQUATE) Test 01/18/17 08:15 01/18/17 11:58 O2 Saturation 95% (92-99) Arterial Blood pH 7.41 (7.35-7.45) Arterial Blood pCO2 at Patient Temp 48mmHg (35-46) Arterial Blood pO2 at Patient Temp 77mmHg (75-108) Arterial Blood HCO3 30mmol/L (21-28) Arterial Blood Base Excess 4mmol/L (-3-3) FiO2 34% Glucose (Fingerstick) 443mg/dL (70-99) Assessment/Plan Assessment/Plan Assessment: Acute on Chronic respiratory failure COPD exacerbation CHF, diastolic dysfunction CAD HTN Plan: Transfer to cardiac floor to continue monitoring Change medications to: -lisinopril 20 mg bid -metoprolol 50 mg bid -amlodipine 5 mg bid Thank you for the opportunity to help with the care of this patient! JON WEAVER MD Jan 18, 2017 13:01
[2017-01-18] MEDS: LISINOPRIL 20 MG TABLET PO SCH ×2 (13:28→21:16)
[2017-01-18] MEDS: METOPROLOL TART IMMED RELEASE 50 MG TABLET. PO SCH ×2 (13:28→21:17)
--- NOTE | 2017-01-18 13:58 | PDOC ---
PULMONARY PROGRESS NOTES Vitals Vital Signs Date Time Temp Pulse Resp B/P Pulse Ox O2 Delivery O2 Flow Rate FiO2 01/18/17 13:28 95 149/71 01/18/17 11:46 98 Nasal Cannula 3.0 01/18/17 11:00 22 01/18/17 08:00 97.8 97.8 General: Alert, No acute distress Lungs: Clear Cardiovascular: S1 Abdomen: Soft Extremities: Other Labs Laboratory Tests Test 01/17/17 21:42 01/17/17 22:40 01/17/17 23:45 01/18/17 06:02 White Blood Count 16.5x10^3/uL (4.0-11.0) 12.5x10^3/uL (4.0-11.0) Red Blood Count 4.15x10^6/uL (3.50-5.40) 3.85x10^6/uL (3.50-5.40) Hemoglobin 12.0g/dL (12.0-15.5) 11.5g/dL (12.0-15.5) Hematocrit 37.3% (36.0-47.0) 33.8% (36.0-47.0) Mean Corpuscular Volume 90fL (79-100) 88fL (79-100) Mean Corpuscular Hemoglobin 29pg (25-35) 30pg (25-35) Mean Corpuscular Hemoglobin Concent 32g/dL (31-37) 34g/dL (31-37) Red Cell Distribution Width 13.7% (11.5-14.5) 13.7% (11.5-14.5) Platelet Count 398x10^3/uL (140-400) 296x10^3/uL (140-400) Neutrophils (%) (Auto) 53% (31-73) 93% (31-73) Lymphocytes (%) (Auto) 35% (24-48) 6% (24-48) Monocytes (%) (Auto) 8% (0-9) 1% (0-9) Eosinophils (%) (Auto) 4% (0-3) 0% (0-3) Basophils (%) (Auto) 1% (0-3) 0% (0-3) Neutrophils # (Auto) 8.8x10^3uL (1.8-7.7) 11.6x10^3uL (1.8-7.7) Lymphocytes # (Auto) 5.7x10^3/uL (1.0-4.8) 0.8x10^3/uL (1.0-4.8) Monocytes # (Auto) 1.3x10^3/uL (0.0-1.1) 0.1x10^3/uL (0.0-1.1) Eosinophils # (Auto) 0.6x10^3/uL (0.0-0.7) 0.0x10^3/uL (0.0-0.7) Basophils # (Auto) 0.1x10^3/uL (0.0-0.2) 0.0x10^3/uL (0.0-0.2) O2 Saturation 97% (92-99) Arterial Blood pH 7.32 (7.35-7.45) Arterial Blood pCO2 at Patient Temp 52mmHg (35-46) Arterial Blood pO2 at Patient Temp 125mmHg (75-108) Arterial Blood HCO3 26mmol/L (21-28) Arterial Blood Base Excess 1mmol/L (-3-3) Oxyhemoglobin 66.9% Methemoglobin 0.6% (0.0-1.9) Carbon Monoxide, Quantitative 0.4% (0.0-1.9) FiO2 40.0 Sodium Level 140mmol/L (136-145) 136mmol/L (136-145) Potassium Level 4.9mmol/L (3.5-5.1) 4.2mmol/L (3.5-5.1) Chloride Level 101mmol/L (98-107) 96mmol/L (98-107) Carbon Dioxide Level 31mmol/L (21-32) 29mmol/L (21-32) Anion Gap 8 (6-14) 11 (6-14) Blood Urea Nitrogen 23mg/dL (7-20) 25mg/dL (7-20) Creatinine 1.4mg/dL (0.6-1.0) 1.6mg/dL (0.6-1.0) Estimated GFR (Cockcroft-Gault) 39.2 33.6 Glucose Level 374mg/dL (70-99) 567mg/dL (70-99) Calcium Level 8.9mg/dL (8.5-10.1) 9.0mg/dL (8.5-10.1) Troponin I Quantitative 0.306ng/mL (0.000-0.055) JQ-Djc-[id number]-Type Natriuretic Peptide 1398pg/mL (0-124) Urine Collection Type Unknown Urine Color Yellow Urine Clarity Clear Urine pH 5.0 Urine Specific [place] 1.020 Urine Protein 100mg/dL (NEG-TRACE) Urine Glucose (UA) >=1000mg/dL (NEG) Urine Ketones (Stick) Negativemg/dL (NEG) Urine Blood Negative (NEG) Urine Nitrite Negative (NEG) Urine Bilirubin Negative (NEG) Urine Urobilinogen Dipstick 0.2mg/dL (0.2 mg/dL) Urine Leukocyte Esterase Negative (NEG) Urine RBC 0/HPF (0-2) Urine WBC 1-4/HPF (0-4) Urine Squamous Epithelial Cells Mod/LPF Urine Bacteria Many/HPF (0-FEW) Urine Mucus Mod/LPF Urine Opiates Screen Pos (NEG) Urine Methadone Screen Neg (NEG) Urine Barbiturates Neg (NEG) Urine Phencyclidine Screen Neg (NEG) Urine Amphetamine/Methamphetamine Neg (NEG) Urine Benzodiazepines Screen Neg (NEG) Urine Cocaine Screen Neg (NEG) Urine Cannabinoids Screen Neg (NEG) Urine Ethyl Alcohol Neg (NEG) Nasal Screen MRSA (PCR) Negative (Negative) Segmented Neutrophils % 94% (35-66) Band Neutrophils % 1% (0-9) Lymphocytes % 4% (24-48) Monocytes % 1% (0-10) Platelet Estimate Adequate (ADEQUATE) Test 01/18/17 08:15 01/18/17 11:58 O2 Saturation 95% (92-99) Arterial Blood pH 7.41 (7.35-7.45) Arterial Blood pCO2 at Patient Temp 48mmHg (35-46) Arterial Blood pO2 at Patient Temp 77mmHg (75-108) Arterial Blood HCO3 30mmol/L (21-28) Arterial Blood Base Excess 4mmol/L (-3-3) FiO2 34% Glucose (Fingerstick) 443mg/dL (70-99) Laboratory Tests Test 01/17/17 21:42 01/17/17 22:40 01/17/17 23:45 01/18/17 06:02 White Blood Count 16.5x10^3/uL (4.0-11.0) 12.5x10^3/uL (4.0-11.0) Red Blood Count 4.15x10^6/uL (3.50-5.40) 3.85x10^6/uL (3.50-5.40) Hemoglobin 12.0g/dL (12.0-15.5) 11.5g/dL (12.0-15.5) Hematocrit 37.3% (36.0-47.0) 33.8% (36.0-47.0) Mean Corpuscular Volume 90fL (79-100) 88fL (79-100) Mean Corpuscular Hemoglobin 29pg (25-35) 30pg (25-35) Mean Corpuscular Hemoglobin Concent 32g/dL (31-37) 34g/dL (31-37) Red Cell Distribution Width 13.7% (11.5-14.5) 13.7% (11.5-14.5) Platelet Count 398x10^3/uL (140-400) 296x10^3/uL (140-400) Neutrophils (%) (Auto) 53% (31-73) 93% (31-73) Lymphocytes (%) (Auto) 35% (24-48) 6% (24-48) Monocytes (%) (Auto) 8% (0-9) 1% (0-9) Eosinophils (%) (Auto) 4% (0-3) 0% (0-3) Basophils (%) (Auto) 1% (0-3) 0% (0-3) Neutrophils # (Auto) 8.8x10^3uL (1.8-7.7) 11.6x10^3uL (1.8-7.7) Lymphocytes # (Auto) 5.7x10^3/uL (1.0-4.8) 0.8x10^3/uL (1.0-4.8) Monocytes # (Auto) 1.3x10^3/uL (0.0-1.1) 0.1x10^3/uL (0.0-1.1) Eosinophils # (Auto) 0.6x10^3/uL (0.0-0.7) 0.0x10^3/uL (0.0-0.7) Basophils # (Auto) 0.1x10^3/uL (0.0-0.2) 0.0x10^3/uL (0.0-0.2) O2 Saturation 97% (92-99) Arterial Blood pH 7.32 (7.35-7.45) Arterial Blood pCO2 at Patient Temp 52mmHg (35-46) Arterial Blood pO2 at Patient Temp 125mmHg (75-108) Arterial Blood HCO3 26mmol/L (21-28) Arterial Blood Base Excess 1mmol/L (-3-3) Oxyhemoglobin 66.9% Methemoglobin 0.6% (0.0-1.9) Carbon Monoxide, Quantitative 0.4% (0.0-1.9) FiO2 40.0 Sodium Level 140mmol/L (136-145) 136mmol/L (136-145) Potassium Level 4.9mmol/L (3.5-5.1) 4.2mmol/L (3.5-5.1) Chloride Level 101mmol/L (98-107) 96mmol/L (98-107) Carbon Dioxide Level 31mmol/L (21-32) 29mmol/L (21-32) Anion Gap 8 (6-14) 11 (6-14) Blood Urea Nitrogen 23mg/dL (7-20) 25mg/dL (7-20) Creatinine 1.4mg/dL (0.6-1.0) 1.6mg/dL (0.6-1.0) Estimated GFR (Cockcroft-Gault) 39.2 33.6 Glucose Level 374mg/dL (70-99) 567mg/dL (70-99) Calcium Level 8.9mg/dL (8.5-10.1) 9.0mg/dL (8.5-10.1) Troponin I Quantitative 0.306ng/mL (0.000-0.055) PI-Zqo-U-Type Natriuretic Peptide 1398pg/mL (0-124) Urine Collection Type Unknown Urine Color Yellow Urine Clarity Clear Urine pH 5.0 Urine Specific [place] 1.020 Urine Protein 100mg/dL (NEG-TRACE) Urine Glucose (UA) >=1000mg/dL (NEG) Urine Ketones (Stick) Negativemg/dL (NEG) Urine Blood Negative (NEG) Urine Nitrite Negative (NEG) Urine Bilirubin Negative (NEG) Urine Urobilinogen Dipstick 0.2mg/dL (0.2 mg/dL) Urine Leukocyte Esterase Negative (NEG) Urine RBC 0/HPF (0-2) Urine WBC 1-4/HPF (0-4) Urine Squamous Epithelial Cells Mod/LPF Urine Bacteria Many/HPF (0-FEW) Urine Mucus Mod/LPF Urine Opiates Screen Pos (NEG) Urine Methadone Screen Neg (NEG) Urine Barbiturates Neg (NEG) Urine Phencyclidine Screen Neg (NEG) Urine Amphetamine/Methamphetamine Neg (NEG) Urine Benzodiazepines Screen Neg (NEG) Urine Cocaine Screen Neg (NEG) Urine Cannabinoids Screen Neg (NEG) Urine Ethyl Alcohol Neg (NEG) Nasal Screen MRSA (PCR) Negative (Negative) Segmented Neutrophils % 94% (35-66) Band Neutrophils % 1% (0-9) Lymphocytes % 4% (24-48) Monocytes % 1% (0-10) Platelet Estimate Adequate (ADEQUATE) Test 01/18/17 08:15 01/18/17 11:58 O2 Saturation 95% (92-99) Arterial Blood pH 7.41 (7.35-7.45) Arterial Blood pCO2 at Patient Temp 48mmHg (35-46) Arterial Blood pO2 at Patient Temp 77mmHg (75-108) Arterial Blood HCO3 30mmol/L (21-28) Arterial Blood Base Excess 4mmol/L (-3-3) FiO2 34% Glucose (Fingerstick) 443mg/dL (70-99) Medications Active Scripts Medications Dose Route/Sig Days Date Category Dose Instructions Coreg (Carvedilol) 3.125 Mg Tablet 1 Tab PO BID 12/27/16 Rx Humalog (Insulin Lispro) 100 Unit/1 Ml Insuln.pen 30 Unit SQ TIDAC 12/27/16 Rx Duoneb 0.5-3(2.5) Mg/3 Ml (Albuterol/Ipratropium) 3 Ml Ampul.neb 3 Ml NEB PRN QID 12/27/16 Rx Isosorbide Mononitrate Er (Isosorbide Mononitrate) 60 Mg Tab.er.24h 1 Tab PO DAILY 12/27/16 Rx [Metronidazole] 500 MG Tablet 500 Mg PO Q8HRS 12/27/16 Rx [Metolazone] 2.5 MG Tablet 2.5 Mg PO 3X/WEEK 12/27/16 Rx take on Mon, Wed, Fri AM Lantus (Insulin Glargine,Hum.rec.anlog) 100 Unit/1 Ml Vial 35 Unit SQ BID 12/27/16 Rx Lyrica (Pregabalin) 150 Mg Capsule 1 Cap PO BID 10/07/16 Reported Cymbalta (Duloxetine Hcl) 60 Mg Capsule.dr 1 Cap PO BID 10/07/16 Reported Atorvastatin Calcium 20 Mg Tablet 1 Tab PO DAILY 10/06/16 Reported Nexium Capsule (Esomeprazole Magnesium) 40 Mg Capsule.dr 1 Cap PO DAILY 10/06/16 Reported Aspirin 81 Mg Tab.chew 1 Tab PO DAILY 10/06/16 Reported Nitrostat (Nitroglycerin) 0.4 Mg Tab.subl 0.4 Mg SL PRN Q5MIN PRN 30 05/02/16 Rx Pradaxa (Dabigatran Etexilate Mesylate) 150 Mg Capsule 1 Cap PO BID 10/22/15 Reported Levothyroxine Sodium 50 Mcg Tablet 1 Tab PO DAILY 10/22/15 Reported Fenofibrate (Fenofibrate,Micronized) 134 Mg Capsule 1 Cap PO DAILY 10/22/15 Reported Zanaflex (Tizanidine Hcl) 4 Mg Capsule 4 Mg PO PRN Q8HRS PRN 03/02/15 Reported as needed for muscle cramps no more than every 8hrs Hydrocodone-Apap 10-325 (Hydrocodone Bit/Acetaminophen) 1 Each Tablet 1 Tab PO PRN Q6HRS PRN 03/18/14 Reported as needed for pain every 6 hours Impression . CONSULT DICTATED SEE ORDERS ACUTE/CHRONIC RESP FAILURE RONA CRAFT MD Jan 18, 2017 13:58
[2017-01-18] MEDS: ANTI-COAG MONITOR BY PHARMACY. MC PRN (15:01)
[2017-01-18] MEDS: BUMETANIDE 1 MG TABLET. PO SCH (15:11)
--- NOTE | 2017-01-18 18:54 | HP ---
ADMIT DATE: 01/18/2017 ATTENDING PHYSICIAN: Dr. Jose Blakely. CHIEF COMPLAINT: Shortness of breath. HISTORY OF PRESENT ILLNESS: The patient is a 56-year-old female with a history of multiple medical problems including coronary artery disease; diabetes mellitus type 2, poorly controlled; COPD; congestive heart failure, who had been in her usual state of health on the evening of admission. She went out to have dinner with her and as they were coming home from dinner, she became significantly short of breath. She was not having any worsened symptoms over her baseline earlier in the day. She denies any fever. She is not having any significantly increased cough. There is no sputum production. She felt significantly tight in her chest. She denied any specific chest pain or palpitations. She has chronic lower extremity edema which had not changed recently. She denies any unusual foods or activities that may have instigated this. She tried using home breathing treatments and metered dose inhaler without any significant relief, prompting her evaluation in the Emergency Room. PAST MEDICAL HISTORY: Significant for diabetes mellitus type 2; hyperlipidemia; obstructive sleep apnea for which she cannot tolerate CPAP; pulmonary embolism for which she is on chronic anticoagulation; coronary artery disease, status post history of prior stent placement; gastroesophageal reflux disease; carotid artery stenosis, approximately 40%-60% on the right; hypothyroidism; gout; paroxysmal atrial fibrillation; kidney stones; COPD/asthma; hypertension; CVA with some minimal residual deficits, but most of resolved at this time; diabetic peripheral neuropathy; overactive bladder; morbid obesity; chronic low back pain; and chronic kidney disease stage 3. PAST SURGICAL HISTORY: Hysterectomy and bilateral oophorectomy; appendectomy; right thoracotomy for reflex sympathetic dystrophy; breast lumpectomies x 2, which were reported benign; cholecystectomy; right wrist surgery; coronary artery stent placement; and bladder suspension twice. SOCIAL HISTORY: She lives at home with her family and . She does help to take care of grandchildren at times. She denies any alcohol or tobacco use. She has smoked in the past, but has not smoked for at least 5 years. She is on disability for her chronic medical problems. FAMILY HISTORY: Mother with diabetes and heart disease. Father with diabetes and heart disease. ALLERGIES TO MEDICATIONS: No known allergies. MEDICATIONS AT THE TIME OF ADMISSION: This is somewhat difficult to delineate as sometimes the patient does have compliance issues, but mostly with her diet and her medication she is usually fairly consistent with, but medications include aspirin 81 mg p.o. daily; Lipitor 20 mg p.o. daily; Coreg 3.125 mg p.o. b.i.d.; Pradaxa 150 mg p.o. b.i.d.; Cymbalta 60 mg p.o. b.i.d.; Nexium 40 mg p.o. daily; fenofibrate 134 mg daily; [place] 10/325 mg 1 p.o. q. 6 hours p.r.n.; Lantus 27 units subcutaneously b.i.d., Humalog 12 units subcutaneously t.i.d., although that is varied up to 35 units b.i.d. for the Lantus and 30 units t.i.d. for the Humalog; DuoNeb q.i.d.; Imdur 60 mg p.o. daily; levothyroxine 50 mcg p.o. daily; sublingual nitroglycerin 0.4 mg q. 5 minutes p.r.n.; Lyrica 150 mg p.o. b.i.d.; Zanaflex 4 mg p.o. q. 8 hours p.r.n. muscle spasm; Zaroxolyn 2.5 mg p.o. 3 times a week on Monday, Monday, and Monday. REVIEW OF SYSTEMS: The patient denies any fever, no significant upper respiratory congestion. She has been swallowing without any difficulty. She denies any vision changes. She does have shortness of breath, but no significant cough. She denies any palpitations or chest pain that she thinks is heart related. She denies any heartburn or reflux symptoms. She has been having no change in her bowel habits. She has been voiding without any difficulty. She has chronic lower extremity edema. She denies any new focal paresthesias or weakness. Her mood is doing okay. PHYSICAL EXAMINATION: VITAL SIGNS: At the time of admission, temperature 98.0, pulse 134, respiratory rate 28, blood pressure 235/134, O2 sat 93% on BiPAP, but currently she is off of respiratory support and on nasal cannula oxygen at 3 liters, maintaining good oxygen saturation. GENERAL: She is alert and oriented, able to speak in sentences at this point in time. She is in no acute respiratory distress. HEENT: The pupils are equal and round. Sclerae are anicteric. Oropharynx is moist. NECK: Without bruit. It is obese. There is no thyromegaly palpable. CHEST: Decreased air movement throughout, but otherwise clear. CARDIOVASCULAR: The heart has regular rate and rhythm without any murmur present. ABDOMEN: Morbidly obese, soft, nontender. No guarding or rebound. EXTREMITIES: There is 1+ pitting edema bilaterally in the lower extremities. NEUROLOGIC: Grossly moves all 4 extremities symmetrically. PSYCHIATRIC: Mood and affect appear appropriate. LABORATORY DATA: At the time of admission, WBC is 16.5, hemoglobin 12.0, hematocrit 37.3, platelets 298,000. UA shows glucose greater than 1000, protein 100, specific gravity 1.020, negative for nitrite and leukocyte esterase, 1-4 wbcs, moderate epithelial cells and mucus. Sodium 140, potassium 4.9, chloride 101, CO2 of 31, BUN 23, creatinine 1.4, glucose 374, calcium 8.9. BNP 1398, troponin 0.036, which has decreased from her last hospital admission. ABG on 40% FIO2 shows an O2 sat of 97%, pH of 7.32, pCO2 of 52, pO2 of 125, bicarbonate 26, methemoglobin 0.6. Chest x-ray shows cardiomegaly with vascular congestion, mild perihilar/perivascular pulmonary edema. A component of pneumonia cannot be excluded. IMPRESSION: 1. Qfbkj-[id number]-bfslxod respiratory failure, multifactorial in etiology. 2. Chronic obstructive pulmonary disease exacerbation. 3. Hguzd-im-rzgcvqz diastolic congestive heart failure. 4. Pulmonary hypertension. 5. Uncontrolled diabetes mellitus type 2. 6. Hypertension. 7. Morbid obesity. 8. History of obstructive sleep apnea. PLAN: The patient is admitted. Pulmonology and cardiology have been consulted. We will defer to them regarding additional treatment. She seems to be improved somewhat this morning already. We will continue frequent nebulizer treatments, we will try to diurese her as we are able to. Further treatment will be based on Cardiology's recommendations regarding her heart function, also regarding Pulmonology, regarding the choice of antibiotics. She did have an elevated white blood cell count, so it might be prudent to go ahead and start her on antibiotics, although she was not having any real significant symptoms of pneumonia. JOSE BLAKELY MD DR: Lyle JOB#: [id number] / [id number]
[2017-01-18] MEDS ORDERED: INSULIN DETEMIR 300 UNITS/3 ML INSULN.PEN. SQ SCH (21:00)
[2017-01-18] MEDS ORDERED: LISINOPRIL 20 MG TABLET PO SCH (21:00)
[2017-01-18] MEDS ORDERED: METOPROLOL SUCC 24HR ER 50 MG TAB.ER.24H. PO SCH (21:00)
[2017-01-18] MEDS: amLODIPine BESYLATE 5 MG TABLET PO SCH (21:17)
[2017-01-18] MEDS: ATORVASTATIN CALCIUM 20 MG TABLET PO SCH (21:17)
[2017-01-18] MEDS: DOCUSATE SODIUM 100 MG CAPSULE. PO SCH (21:18)
[2017-01-19] VITALS (7 sets, daily range): BP systolic 102–144; BP diastolic 48–76
[2017-01-19] MEDS: HYDROCODONE/APAP 10/325 TABLET. PO PRN ×4 (00:17→20:44)
[2017-01-19] MEDS: IV 1/2 NORMAL SALINE 1,000 ML IV SCH (01:58)
--- NOTE | 2017-01-19 03:41 | CONS ---
DATE OF CONSULTATION: 01/18/2017 ATTENDING PHYSICIAN: Dr. Chidi Giles. REASON FOR CONSULTATION: The patient seen in pulmonary consultation at the request of Dr. Giles for acute respiratory failure requiring noninvasive ventilation. HISTORY OF PRESENT ILLNESS: The patient is a 56-year-old female with history of COPD, type 2 diabetes, chronic heart failure, presented with increasing shortness of breath over the last 24 hours. The states that ____ the following day, the patient was more short of breath. She also ____diuretic. She presented to the Emergency Room, had a chest x-ray compatible with CHF. She had an initial blood gas revealing pH of 7.32, PaCO2 of 52, pO2 of 1.5 on BiPAP. The patient denied fever, chills or night sweats. No chest pain or pressure. She quit tobacco in the 80s. She normally wears 2 liters of oxygen throughout the day bedtime. She had a previous sleep study that she has been intolerant the CPAP machine. PAST MEDICAL HISTORY: Remarkable for chronic heart failure, COPD, type 2 diabetes, hypertension, chronic kidney disease, coronary artery disease with previous myocardial infarction, valvular heart disease, morbid obesity. PAST SURGICAL HISTORY: Status post lumpectomy, exploratory laparotomy, hernia repair, hysterectomy, cholecystectomy, appendectomy and angioplasty. ALLERGIES: No known drug allergies. CURRENT MEDICATIONS: List was reviewed. Please see the MRAD. SOCIAL HISTORY: The patient denies any current use of tobacco or alcohol. FAMILY HISTORY: No family history of lung disorders. REVIEW OF SYSTEMS: As indicated above, otherwise, a 10-point system was reviewed and negative. PHYSICAL EXAMINATION: GENERAL: The patient was in the intensive care unit. Currently off of BiPAP. VITAL SIGNS: Stable. O2 saturation currently on 3 liters was greater than 92%. HEENT: Eyes, the sclerae were nonicteric. NECK: Jugular venous distention was not elevated. No lymphadenopathy. CHEST: Full expansion. LUNGS: Crackles throughout both lung davidson. CARDIOVASCULAR: Regular rate and rhythm with S1, S2, no S3. ABDOMEN: Soft, nontender, nondistended, obese. EXTREMITIES: No clubbing, cyanosis, 1+ edema. NEUROLOGIC: The patient was awake, alert, following commands. A detailed neuro exam was not performed. LABORATORY DATA: Reviewed. White count was elevated. Hemoglobin and hematocrit were noted. Electrolytes were noted. BUN is elevated. Creatinine was elevated. Glucose was elevated. Troponin was elevated. BNP was elevated. IMPRESSION: 1. Acute on chronic hypoxemic respiratory failure. 2. Acute on chronic heart failure. Suspect combination of systolic and diastolic. 3. Obstructive sleep apnea. 4. Suspect secondary pulmonary hypertension with acute cor pulmonale. 5. Leukocytosis, suspect reactive. 6. Morbid obesity. PLAN: 1. Recommend diuresis. 2. No need for antibiotics. 3. The patient has been intolerant to her CPAP at home, will require new sleep study. 4. Consult Cardiology already performed. 5. Continue oxygen supplementation. 6. Avoid salty food. Total cumulative critical care time of 40 minutes. I do appreciate the privilege in sharing in this patient's care. RONA CRAFT MD DR: STEW/apolinar JOB#: [id number] / [id number]
[2017-01-19] MEDS: LEVOTHYROXINE 50 MCG TABLET PO SCH (06:30)
[2017-01-19] MEDS: INSULIN ASPART 300 UNITS/3 ML INSULN.PEN SQ SCH ×7 (07:30→17:51)
[2017-01-19] MEDS: ANTI-COAG MONITOR BY PHARMACY. MC PRN (07:35)
--- NOTE | 2017-01-19 07:44 | PDOC ---
SUBJECTIVE Subjective Breathing is doing better but still feels tight in the chest. No other chest pain. No palpitations. Hasn't really ambulated much. Has been having good urinary output. Has been constipated for the last several days. OBJECTIVE Vital Signs Vital Signs Date Time Temp Pulse Resp B/P Pulse Ox O2 Delivery O2 Flow Rate FiO2 01/19/17 06:04 16 97 Nasal Cannula 3.5 01/19/17 04:00 98.2 70 26 102/48 98 Nasal Cannula 3.5 98.2 01/19/17 01:17 16 97 Nasal Cannula 3.5 01/19/17 00:17 20 98 Nasal Cannula 3.5 01/19/17 00:00 98.6 87 24 144/67 98 Nasal Cannula 3.5 98.6 01/18/17 21:17 76 148/71 01/18/17 21:17 76 148/71 01/18/17 21:16 77 148/71 01/18/17 20:37 98 Nasal Cannula 3.0 01/18/17 20:00 Nasal Cannula 3.5 01/18/17 20:00 98.5 78 18 145/87 98 Nasal Cannula 3.5 98.5 01/18/17 16:00 98.5 78 15 144/65 98 Nasal Cannula 3.5 98.5 01/18/17 15:57 98 Nasal Cannula 3.0 01/18/17 13:28 95 149/71 01/18/17 13:28 95 149/71 01/18/17 13:27 95 149/71 01/18/17 11:46 98 Nasal Cannula 3.0 01/18/17 11:00 96 22 136/57 98 Nasal Cannula 3.5 01/18/17 10:00 92 17 141/70 98 Nasal Cannula 3.5 01/18/17 09:49 90 01/18/17 09:00 98 27 149/69 98 Nasal Cannula 3.5 01/18/17 08:29 95 Nasal Cannula 3.5 01/18/17 08:19 95 Nasal Cannula 3.5 01/18/17 08:00 Nasal Cannula 3.5 01/18/17 08:00 97.8 92 16 154/78 96 Nasal Cannula 3.5 97.8 I & O Intake and Output 01/19/17 07:00 Intake Total 759 ml Output Total 5850 ml Balance -5091 ml Intake IV Total 759 ml Output Urine Total 5850 ml PHYSICAL EXAM Physical Exam General: No acute distress. Laying in bed with supplemental nasal cannula oxygen Mental status: Alert and oriented. Chest: Decreased air movement throughout. Generally clear anteriorly. CV: Normal rate. Regular rhythm. No murmur. Abdomen: Normal bowel sounds. Soft, obese. Not distended. No tenderness. No guarding. No rebound. Extremities: 1+ bilateral lower extremity edema. ASSESSMENT/PLAN Assessment/Plan 1. Acute on chronic respiratory failure, multifactorial likely in nature: Continue nebulizer treatments, diuresis. Continue per specialists. 2. COPD exacerbation: Making some improvement. We'll see how she does with ambulation today. No antibiotics needed at present. 3. Acute on chronic diastolic congestive heart failure: Improving with good urine output. There is likely a significant component of dietary noncompliance which contributes to her recurrent episodes. 4. Uncontrolled diabetes mellitus type 2: Increase insulin. Dietary compliance is an issue as noted above. 5. Hypertension: Improving with current medications. 6. Morbid obesity: Contributes to the above. 7. History of obstructive sleep apnea and pulmonary hypertension: Consider outpatient repeat sleep study per pulmonology when the patient is stable status. 8. Disposition: We'll see how she does with the breathing treatments and ambulation today. Physical therapy consulted. Hopefully she will be able to be discharged tomorrow. Problems: COMMENT Lab Laboratory Tests Test 01/18/17 08:15 01/18/17 11:58 01/18/17 16:56 01/18/17 20:59 O2 Saturation 95% (92-99) Arterial Blood pH 7.41 (7.35-7.45) Arterial Blood pCO2 at Patient Temp 48mmHg (35-46) Arterial Blood pO2 at Patient Temp 77mmHg (75-108) Arterial Blood HCO3 30mmol/L (21-28) Arterial Blood Base Excess 4mmol/L (-3-3) FiO2 34% Glucose (Fingerstick) 443mg/dL (70-99) 372mg/dL (70-99) 346mg/dL (70-99) Test 01/19/17 07:38 Glucose (Fingerstick) 331mg/dL (70-99) JOSE BLAKELY MD Jan 19, 2017 07:43
[2017-01-19] MEDS ORDERED: ACETAMINOPHEN 325 MG TABLET. PO PRN (07:45)
[2017-01-19 07:48] LABS: CALCIUM 9.1 mg/dL (8.5-10.1); CREATININE 1.3 mg/dL (0.6-1.0); GFR 42.7; POTASSIUM 4.2 mmol/L (3.5-5.1)
[2017-01-19] MEDS ORDERED: MAGNESIUM HYDROXIDE 2,400 MG/30 ML ORAL.SUSP. PO PRN (08:15)
[2017-01-19] MEDS ORDERED: tiZANidine 4 MG TABLET. PO PRN (08:15)
[2017-01-19] MEDS ORDERED: MAGNESIUM HYDROXIDE 2,400 MG/30 ML ORAL.SUSP. PO ONE (08:15)
[2017-01-19] MEDS ORDERED: BISACODYL 10 MG SUPP.RECT. PR PRN (08:15)
[2017-01-19] MEDS: PREGABALIN 75 MG CAPSULE PO SCH ×2 (08:28→20:44)
[2017-01-19] MEDS: ISOSORBIDE MONONITRATE ER 30 MG TAB.ER.24H PO SCH (08:29)
[2017-01-19] MEDS: BUMETANIDE 1 MG TABLET. PO SCH (08:29)
[2017-01-19] MEDS: DABIGATRAN ETEXILATE 150 MG CAPSULE. PO SCH ×2 (08:29→20:44)
[2017-01-19] MEDS: DOCUSATE SODIUM 100 MG CAPSULE. PO SCH ×2 (08:29→20:43)
[2017-01-19] MEDS: DULoxetine HCL 30 MG CAPSULE.DR PO SCH ×2 (08:29→20:43)
[2017-01-19] MEDS: METOPROLOL TART IMMED RELEASE 50 MG TABLET. PO SCH ×2 (08:30→20:44)
[2017-01-19] MEDS: PANTOPRAZOLE 40 MG TABLET.DR. PO SCH (08:30)
[2017-01-19] MEDS: FENOFIBRATE,MICRONIZED 134 MG CAPSULE PO SCH (08:30)
[2017-01-19] MEDS: amLODIPine BESYLATE 5 MG TABLET PO SCH ×2 (08:30→20:43)
[2017-01-19] MEDS: LISINOPRIL 20 MG TABLET PO SCH ×2 (08:31→20:43)
[2017-01-19] MEDS: ASPIRIN CHEWABLE 81 MG TABLET. PO SCH (08:31)
[2017-01-19] MEDS: INSULIN DETEMIR 300 UNITS/3 ML INSULN.PEN. SQ SCH ×2 (08:35→20:53)
[2017-01-19] MEDS: IPRATRPIUM/ALBUTEROL 0.5/2.5MG 3 ML NEBU. NEB SCH ×4 (09:15→18:29)
--- NOTE | 2017-01-19 15:07 | PDOC ---
PROGRESS NOTES Subjective Subjective Patient feels better but still complains of some chest tightness. Complains of constipation. Had a tiny BM yesterday. Prior to this, BM was 5 days prior. Objective Objective Vital Signs Date Time Temp Pulse Resp B/P Pulse Ox O2 Delivery O2 Flow Rate FiO2 01/19/17 13:01 93 Nasal Cannula 3.5 01/19/17 12:00 97.6 62 24 114/62 97.6 Intake and Output 01/19/17 07:00 Intake Total 759 ml Output Total 5850 ml Balance -5091 ml Intake IV Total 759 ml Output Urine Total 5850 ml Physical Exam Physical Exam Unchanged cardiac exam. Trace lower extremity edema Assessment Assessment Problems Medical Problems: (1) Acute and chronic respiratory failure ([id number]) Status: Acute (2) Acute on chronic congestive heart failure Status: Acute (3) COPD exacerbation Status: Acute Plan Plan of Care Consult nephrology Continue medications: -lisinopril 20 mg bid -metoprolol 50 mg bid -amlodipine 5 mg bid Agree with primary's plan Thank you for the opportunity to help with the care of this patient! Comment Review of Relevant I have reviewed the following items jim (where applicable) has been applied. Labs Laboratory Tests Test 01/17/17 21:42 01/17/17 22:40 01/17/17 23:45 01/18/17 06:02 White Blood Count 16.5x10^3/uL (4.0-11.0) 12.5x10^3/uL (4.0-11.0) Red Blood Count 4.15x10^6/uL (3.50-5.40) 3.85x10^6/uL (3.50-5.40) Hemoglobin 12.0g/dL (12.0-15.5) 11.5g/dL (12.0-15.5) Hematocrit 37.3% (36.0-47.0) 33.8% (36.0-47.0) Mean Corpuscular Volume 90fL (79-100) 88fL (79-100) Mean Corpuscular Hemoglobin 29pg (25-35) 30pg (25-35) Mean Corpuscular Hemoglobin Concent 32g/dL (31-37) 34g/dL (31-37) Red Cell Distribution Width 13.7% (11.5-14.5) 13.7% (11.5-14.5) Platelet Count 398x10^3/uL (140-400) 296x10^3/uL (140-400) Neutrophils (%) (Auto) 53% (31-73) 93% (31-73) Lymphocytes (%) (Auto) 35% (24-48) 6% (24-48) Monocytes (%) (Auto) 8% (0-9) 1% (0-9) Eosinophils (%) (Auto) 4% (0-3) 0% (0-3) Basophils (%) (Auto) 1% (0-3) 0% (0-3) Neutrophils # (Auto) 8.8x10^3uL (1.8-7.7) 11.6x10^3uL (1.8-7.7) Lymphocytes # (Auto) 5.7x10^3/uL (1.0-4.8) 0.8x10^3/uL (1.0-4.8) Monocytes # (Auto) 1.3x10^3/uL (0.0-1.1) 0.1x10^3/uL (0.0-1.1) Eosinophils # (Auto) 0.6x10^3/uL (0.0-0.7) 0.0x10^3/uL (0.0-0.7) Basophils # (Auto) 0.1x10^3/uL (0.0-0.2) 0.0x10^3/uL (0.0-0.2) O2 Saturation 97% (92-99) Arterial Blood pH 7.32 (7.35-7.45) Arterial Blood pCO2 at Patient Temp 52mmHg (35-46) Arterial Blood pO2 at Patient Temp 125mmHg (75-108) Arterial Blood HCO3 26mmol/L (21-28) Arterial Blood Base Excess 1mmol/L (-3-3) Oxyhemoglobin 66.9% Methemoglobin 0.6% (0.0-1.9) Carbon Monoxide, Quantitative 0.4% (0.0-1.9) FiO2 40.0 Sodium Level 140mmol/L (136-145) 136mmol/L (136-145) Potassium Level 4.9mmol/L (3.5-5.1) 4.2mmol/L (3.5-5.1) Chloride Level 101mmol/L (98-107) 96mmol/L (98-107) Carbon Dioxide Level 31mmol/L (21-32) 29mmol/L (21-32) Anion Gap 8 (6-14) 11 (6-14) Blood Urea Nitrogen 23mg/dL (7-20) 25mg/dL (7-20) Creatinine 1.4mg/dL (0.6-1.0) 1.6mg/dL (0.6-1.0) Estimated GFR (Cockcroft-Gault) 39.2 33.6 Glucose Level 374mg/dL (70-99) 567mg/dL (70-99) Calcium Level 8.9mg/dL (8.5-10.1) 9.0mg/dL (8.5-10.1) Troponin I Quantitative 0.306ng/mL (0.000-0.055) NE-Tmm-E-Type Natriuretic Peptide 1398pg/mL (0-124) Urine Collection Type Unknown Urine Color Yellow Urine Clarity Clear Urine pH 5.0 Urine Specific [place] 1.020 Urine Protein 100mg/dL (NEG-TRACE) Urine Glucose (UA) >=1000mg/dL (NEG) Urine Ketones (Stick) Negativemg/dL (NEG) Urine Blood Negative (NEG) Urine Nitrite Negative (NEG) Urine Bilirubin Negative (NEG) Urine Urobilinogen Dipstick 0.2mg/dL (0.2 mg/dL) Urine Leukocyte Esterase Negative (NEG) Urine RBC 0/HPF (0-2) Urine WBC 1-4/HPF (0-4) Urine Squamous Epithelial Cells Mod/LPF Urine Bacteria Many/HPF (0-FEW) Urine Mucus Mod/LPF Urine Opiates Screen Pos (NEG) Urine Methadone Screen Neg (NEG) Urine Barbiturates Neg (NEG) Urine Phencyclidine Screen Neg (NEG) Urine Amphetamine/Methamphetamine Neg (NEG) Urine Benzodiazepines Screen Neg (NEG) Urine Cocaine Screen Neg (NEG) Urine Cannabinoids Screen Neg (NEG) Urine Ethyl Alcohol Neg (NEG) Nasal Screen MRSA (PCR) Negative (Negative) Segmented Neutrophils % 94% (35-66) Band Neutrophils % 1% (0-9) Lymphocytes % 4% (24-48) Monocytes % 1% (0-10) Platelet Estimate Adequate (ADEQUATE) Test 01/18/17 08:15 01/18/17 11:58 01/18/17 16:56 01/18/17 20:59 O2 Saturation 95% (92-99) Arterial Blood pH 7.41 (7.35-7.45) Arterial Blood pCO2 at Patient Temp 48mmHg (35-46) Arterial Blood pO2 at Patient Temp 77mmHg (75-108) Arterial Blood HCO3 30mmol/L (21-28) Arterial Blood Base Excess 4mmol/L (-3-3) FiO2 34% Glucose (Fingerstick) 443mg/dL (70-99) 372mg/dL (70-99) 346mg/dL (70-99) Test 01/19/17 07:20 01/19/17 07:38 01/19/17 12:40 Sodium Level 135mmol/L (136-145) Potassium Level 4.2mmol/L (3.5-5.1) Chloride Level 96mmol/L (98-107) Carbon Dioxide Level 37mmol/L (21-32) Anion Gap 2 (6-14) Blood Urea Nitrogen 31mg/dL (7-20) Creatinine 1.3mg/dL (0.6-1.0) Estimated GFR (Cockcroft-Gault) 42.7 Glucose Level 363mg/dL (70-99) Calcium Level 9.1mg/dL (8.5-10.1) Glucose (Fingerstick) 331mg/dL (70-99) 306mg/dL (70-99) Laboratory Tests Test 01/18/17 16:56 01/18/17 20:59 01/19/17 07:20 01/19/17 07:38 Glucose (Fingerstick) 372mg/dL (70-99) 346mg/dL (70-99) 331mg/dL (70-99) Sodium Level 135mmol/L (136-145) Potassium Level 4.2mmol/L (3.5-5.1) Chloride Level 96mmol/L (98-107) Carbon Dioxide Level 37mmol/L (21-32) Anion Gap 2 (6-14) Blood Urea Nitrogen 31mg/dL (7-20) Creatinine 1.3mg/dL (0.6-1.0) Estimated GFR (Cockcroft-Gault) 42.7 Glucose Level 363mg/dL (70-99) Calcium Level 9.1mg/dL (8.5-10.1) Test 01/19/17 12:40 Glucose (Fingerstick) 306mg/dL (70-99) Microbiology 01/17/17 Urine Culture - Preliminary, Resulted 01/17/17 Urine Culture Result 1 (CANDACE) - Preliminary, Resulted Medications Current Medications Ipratropium [place] (Atrovent) 0.5 mg 1X ONCE NEB ; Start 01/17/17 at 21:45; Stop 01/17/17 at 22:00; Status DC Methylprednisolone Sodium Succinate (Solu-Medrol 125mg Vial) 125 mg 1X ONCE IV Last administered on 01/17/17 22:06; Start 01/17/17 at 21:45; Stop 01/17/17 at 21:46; Status DC Fentanyl Citrate (Fentanyl 2ml Vial) 50 mcg PRN Q15MIN PRN IV PAIN GREATER THAN 3/10 Last administered on 01/17/17 22:44; Start 01/17/17 at 21:45; Stop at 08:20; Status DC Albuterol/ Ipratropium (Duoneb) 3 ml STK-MED ONCE .ROUTE ; Start 01/17/17 at 21: 44; Stop 01/17/17 at 21:45; Status DC Albuterol Sulfate (Ventolin Neb Soln) 2.5 mg STK-MED ONCE .ROUTE ; Start at 21:44; Stop 01/17/17 at 21:45; Status DC Albuterol/ Ipratropium (Duoneb) 3 ml 1X ONCE NEB Last administered on 22:03; Start 01/17/17 at 22:00; Stop 01/17/17 at 22:01; Status DC Albuterol Sulfate (Ventolin Neb Soln) 10 mg 1X ONCE CONT NEB Last administered on 01/17/17 21:50; Start 01/17/17 at 22:15; Stop 01/17/17 at 22:16 ; Status DC Furosemide (Lasix) 40 mg 1X ONCE IVP Last administered on 01/17/17 22:45; Start 01/17/17 at 22:30; Stop 01/17/17 at 22:31; Status DC Levofloxacin/ Dextrose 1 each 1 each PRN DAILY PRN MC SEE COMMENTS; Start 01/17 at 22:30; Stop 01/18/17 at 13:13; Status DC Levofloxacin/ Dextrose (LEVAQUIN 500mg PREMIX) 100 ml @ 100 mls/hr 1X ONCE IV Last administered on 01/18/17 00:38; Start 01/17/17 at 23:00; Stop 01/17/17 at 23:59; Status DC Enoxaparin Sodium (Lovenox 100mg Syringe) 100 mg 1X ONCE SQ Last administered on 01/18/17 02:14; Start 01/17/17 at 23:30; Stop 01/17/17 at 23:31; Status DC Ondansetron HCl (Zofran) 4 mg PRN Q8HRS PRN IV NAUSEA/VOMITING; Start 01/17/17 at 23:30; Stop 01/18/17 at 23:29; Status DC Fentanyl Citrate (Fentanyl 2ml Vial) 50 mcg PRN Q2HR PRN IV PAIN; Start at 23:30; Stop 01/18/17 at 23:29; Status DC Acetaminophen (Tylenol) 650 mg PRN Q4HRS PRN PO FEVER; Start 01/17/17 at 23:30 ; Stop 01/18/17 at 23:29; Status DC Nitroglycerin (Nitrostat) 0.4 mg PRN Q5MIN PRN SL CHEST PAIN; Start 01/17/17 at 23:30; Stop 01/18/17 at 15:03; Status DC Albuterol/ Ipratropium 3 ml 3 ml RTQID NEB Last administered on 01/18/17 11:45 ; Start 01/18/17 at 08:00; Stop 01/18/17 at 15:03; Status DC Levofloxacin/ Dextrose 100 ml @ 100 mls/hr Q24H IV ; Start 01/18/17 at 21:00; Stop 01/18/17 at 21:00; Status DC Sodium Chloride 1,000 ml @ 40 mls/hr Q24H IV Last administered on 01/19/17 01 :58; Start 01/18/17 at 00:45; Stop 01/19/17 at 07:43; Status DC Nicardipine HCl/ Sodium Chloride (Cardene/Iv Sodium Chloride 0.9% 250ml) 270 ml @ 0 mls/hr CONT PRN IV SEE I/O RECORD Last administered on 01/18/17 01:41; Start 01/18/17 at 00:45; Stop 01/19/17 at 07:43; Status DC Tizanidine HCl (Zanaflex) 4 mg PRN Q8HRS PRN PO MUSCLE SPASMS Last administered on 01/18/17 02:23; Start 01/18/17 at 01:45; Stop 01/18/17 at 13:20 ; Status DC Tizanidine HCl (Zanaflex) 2 mg PRN Q8HRS PRN PO MUSCLE SPASMS; Start 01/18/17 at 01:45; Status UNV Insulin Aspart (Novolog) 0-9 UNITS TIDWMEALS SQ Last administered on 01/19/17 13:11; Start 01/18/17 at 08:00 Dextrose (Dextrose 50%-Water Syringe) 12.5 gm PRN Q15MIN PRN IV SEE COMMENTS; Start 01/18/17 at 07:45 Aspirin (Children'S Aspirin) 81 mg DAILY PO Last administered on 01/19/17 08: 31; Start 01/18/17 at 09:00 Atorvastatin Calcium (Lipitor) 20 mg QHS PO Last administered on 01/18/17 21: 17; Start 01/18/17 at 21:00 Dabigatran (Pradaxa) 150 mg BID PO Last administered on 01/19/17 08:29; Start 01/18/17 at 09:00 Fenofibrate (Lofibra) 134 mg DAILY PO Last administered on 01/19/17 08:30; Start 01/18/17 at 09:00 Acetaminophen/ Hydrocodone Bitart (Lortab 10/325) 1 tab PRN Q6HRS PRN PO PAIN Last administered on 01/19/17 06:04; Start 01/18/17 at 07:45; Stop 01/19/17 at 07:43; Status DC Isosorbide Mononitrate (Imdur) 60 mg DAILY PO Last administered on 01/19/17 08 :29; Start 01/18/17 at 09:00 Levothyroxine Sodium (Synthroid) 50 mcg DAILY07 PO Last administered on 06:30; Start 01/18/17 at 08:00 Nitroglycerin (Nitrostat) 0.4 mg PRN Q5MIN PRN SL CP RATING > 1/10; Start 01/18 at 07:45 Duloxetine HCl (Cymbalta) 60 mg BID PO Last administered on 01/19/17 08:29; Start 01/18/17 at 09:00 Pantoprazole Sodium (Protonix) 40 mg DAILYAC PO Last administered on 01/19/17 08:30; Start 01/18/17 at 08:30 Insulin Detemir (Levemir) 35 units BID SQ Last administered on 01/18/17 18:06 ; Start 01/18/17 at 21:00; Stop 01/19/17 at 07:43; Status DC Insulin Aspart (Novolog) 30 units TIDAC SQ Last administered on 01/18/17 16:59 ; Start 01/18/17 at 11:30; Stop 01/19/17 at 07:43; Status DC Pregabalin (Lyrica) 150 mg BID PO Last administered on 01/19/17 08:28; Start 01/18/17 at 09:00 Tizanidine HCl (Zanaflex) 4 mg PRN Q8HRS PRN PO MUSCLE SPASMS Last administered on 01/19/17 00:16; Start 01/18/17 at 08:15; Stop 01/19/17 at 07:43 ; Status DC Metolazone (Zaroxolyn) 2.5 mg MoWeFr PO Last administered on 01/18/17 08:43; Start 01/18/17 at 09:00 Albuterol/ Ipratropium (Duoneb) 3 ml QID NEB Last administered on 01/19/17 11: 57; Start 01/18/17 at 09:00 Insulin Aspart (Novolog) 30 units TIDAC SQ ; Start 01/18/17 at 11:30; Status UNV Insulin Aspart (Novolog) 30 units 1X ONCE SQ Last administered on 01/18/17 08 :55; Start 01/18/17 at 10:30; Stop 01/18/17 at 10:31; Status DC Lisinopril (Prinivil) 20 mg BID PO Last administered on 01/19/17 08:31; Start 01/18/17 at 13:00 Metoprolol Tartrate (Lopressor) 50 mg BID PO Last administered on 01/19/17 08: 30; Start 01/18/17 at 13:00 Amlodipine Besylate (Norvasc) 5 mg DAILY PO Last administered on 01/18/17 13: 27; Start 01/18/17 at 13:00; Stop 01/18/17 at 13:34; Status DC Lisinopril (Prinivil) 20 mg BID PO ; Start 01/18/17 at 21:00; Stop 01/18/17 at 21:00; Status DC Metoprolol Succinate (Toprol Xl) 50 mg BID PO ; Start 01/18/17 at 21:00; Stop at 21:00; Status DC Amlodipine Besylate (Norvasc) 5 mg BID PO Last administered on 01/19/17 08:30 ; Start 01/18/17 at 21:00 Bumetanide (Bumex) 2 mg DAILY PO Last administered on 01/19/17 08:29; Start at 14:00 Info (Anti-Coagulation Monitoring By Pharmacy) 1 each PRN DAILY PRN MC SEE COMMENTS Last administered on 01/19/17 07:35; Start 01/18/17 at 13:45 Docusate Sodium (Colace) 100 mg BID PO Last administered on 01/19/17 08:29; Start 01/18/17 at 22:00 Acetaminophen/ Hydrocodone Bitart (Lortab 10/325) 1 tab PRN Q4HRS PRN PO PAIN Last administered on 01/19/17 11:33; Start 01/19/17 at 07:45 Insulin Aspart (Novolog) 35 units TIDAC SQ Last administered on 01/19/17 13:11 ; Start 01/19/17 at 08:00 Insulin Detemir (Levemir) 40 units BID SQ Last administered on 01/19/17 08:35 ; Start 01/19/17 at 09:00 Tizanidine HCl (Zanaflex) 4 mg PRN TID PRN PO MUSCLE SPASMS; Start 01/19/17 at 08:15 Acetaminophen (Tylenol) 650 mg PRN Q6HRS PRN PO MILD PAIN / TEMP; Start at 07:45 Magnesium Hydroxide (Milk Of Magnesia) 2,400 mg PRN DAILY PRN PO CONSTIPATION; Start 01/19/17 at 08:15 Magnesium Hydroxide (Milk Of Magnesia) 2,400 mg 1X ONCE PO Last administered on 01/19/17t 08:28; Start 01/19/17 at 08:15; Stop 01/19/17 at 08:16; Status DC Bisacodyl (Dulcolax Supp) 10 mg PRN DAILY PRN PA CONSTIPATION; Start 01/19/17 at 08:15 Active Scripts Active Coreg (Carvedilol) 3.125 Mg Tablet 1 Tab PO BID Humalog (Insulin Lispro) 100 Unit/1 Ml Insuln.pen 30 Unit SQ TIDAC Duoneb 0.5-3(2.5) Mg/3 Ml (Albuterol/Ipratropium) 3 Ml Ampul.neb 3 Ml NEB PRN QID Isosorbide Mononitrate Er (Isosorbide Mononitrate) 60 Mg Tab.er.24h 1 Tab PO DAILY [Metronidazole] 500 MG Tablet 500 Mg PO Q8HRS [Metolazone] 2.5 MG Tablet 2.5 Mg PO 3X/WEEK take on Mon, Wed, Fri AM Lantus (Insulin Glargine,Hum.rec.anlog) 100 Unit/1 Ml Vial 35 Unit SQ BID Nitrostat (Nitroglycerin) 0.4 Mg Tab.subl 0.4 Mg SL PRN Q5MIN PRN 30 Days Reported Lyrica (Pregabalin) 150 Mg Capsule 1 Cap PO BID Cymbalta (Duloxetine Hcl) 60 Mg Capsule.dr 1 Cap PO BID Atorvastatin Calcium 20 Mg Tablet 1 Tab PO DAILY Nexium Capsule (Esomeprazole Magnesium) 40 Mg Capsule.dr 1 Cap PO DAILY Aspirin 81 Mg Tab.chew 1 Tab PO DAILY Pradaxa (Dabigatran Etexilate Mesylate) 150 Mg Capsule 1 Cap PO BID Levothyroxine Sodium 50 Mcg Tablet 1 Tab PO DAILY Fenofibrate (Fenofibrate,Micronized) 134 Mg Capsule 1 Cap PO DAILY Zanaflex (Tizanidine Hcl) 4 Mg Capsule 4 Mg PO PRN Q8HRS PRN as needed for muscle cramps no more than every 8hrs Hydrocodone-Apap 10-325 (Hydrocodone Bit/Acetaminophen) 1 Each Tablet 1 Tab PO PRN Q6HRS PRN as needed for pain every 6 hours Vitals/I & O Vital Sign - Last 24 Hours 01/18/17 01/18/17 01/18/17 01/18/17 15:57 16:00 20:00 20:00 Temp 98.5 98.5 98.5 98.5 Pulse 78 78 Resp 15 18 B/P 144/65 145/87 Pulse Ox 98 98 98 O2 Delivery Nasal Cannula Nasal Cannula Nasal Cannula Nasal Cannula O2 Flow Rate 3.0 3.5 3.5 3.5 01/18/17 01/18/17 01/18/17 01/18/17 20:37 21:16 21:17 21:17 Pulse 77 76 76 B/P 148/71 148/71 148/71 Pulse Ox 98 O2 Delivery Nasal Cannula O2 Flow Rate 3.0 01/19/17 01/19/17 01/19/17 01/19/17 00:00 00:17 01:17 04:00 Temp 98.6 98.2 98.6 98.2 Pulse 87 70 Resp 24 20 16 B/P 144/67 102/48 Pulse Ox 98 98 97 98 O2 Delivery Nasal Cannula Nasal Cannula Nasal Cannula Nasal Cannula O2 Flow Rate 3.5 3.5 3.5 3.5 01/19/17 01/19/17 01/19/17 01/19/17 06:04 08:00 08:00 08:29 Temp 98.0 98.0 Pulse 73 70 Resp B/P 134/76 102/48 Pulse Ox 97 98 O2 Delivery Nasal Cannula Nasal Cannula Nasal Cannula O2 Flow Rate 3.5 3.5 3.5 01/19/17 01/19/17 01/19/17 01/19/17 08:30 08:30 08:31 09:15 Pulse 70 70 70 B/P 102/48 102/48 102/48 Pulse Ox 93 O2 Delivery Nasal Cannula O2 Flow Rate 3.0 01/19/17 01/19/17 01/19/17 01/19/17 11:33 11:57 12:00 13:01 Temp 97.6 97.6 Pulse 62 Resp 24 B/P 114/62 Pulse Ox 93 90 93 93 O2 Delivery Nasal Cannula Room Air Nasal Cannula Nasal Cannula O2 Flow Rate 3.5 3.5 3.5 Intake and Output 01/18/17 01/18/17 01/19/17 15:00 23:00 07:00 Intake Total 759 ml Output Total 2400 ml 1875 ml 1575 ml Balance -2400 ml -1875 ml -816 ml JON WEAVER MD Jan 19, 2017 15:07
--- NOTE | 2017-01-19 15:28 | PDOC ---
PULMONARY PROGRESS NOTES Subjective pt less soa sitting up in chair Vitals Vital Signs Date Time Temp Pulse Resp B/P Pulse Ox O2 Delivery O2 Flow Rate FiO2 01/19/17 15:08 96 Nasal Cannula 3.0 01/19/17 12:00 97.6 62 24 114/62 97.6 ROS: No Nausea, No Chest Pain, No Abdominal Pain, No Increase Cough General: Alert, No acute distress Lungs: Clear Cardiovascular: S1, S2 Abdomen: Soft Neuro Exam: Alert Extremities: Other (edema) Skin: Warm Labs Laboratory Tests Test 01/17/17 21:42 01/17/17 22:40 01/17/17 23:45 01/18/17 06:02 White Blood Count 16.5x10^3/uL (4.0-11.0) 12.5x10^3/uL (4.0-11.0) Red Blood Count 4.15x10^6/uL (3.50-5.40) 3.85x10^6/uL (3.50-5.40) Hemoglobin 12.0g/dL (12.0-15.5) 11.5g/dL (12.0-15.5) Hematocrit 37.3% (36.0-47.0) 33.8% (36.0-47.0) Mean Corpuscular Volume 90fL (79-100) 88fL (79-100) Mean Corpuscular Hemoglobin 29pg (25-35) 30pg (25-35) Mean Corpuscular Hemoglobin Concent 32g/dL (31-37) 34g/dL (31-37) Red Cell Distribution Width 13.7% (11.5-14.5) 13.7% (11.5-14.5) Platelet Count 398x10^3/uL (140-400) 296x10^3/uL (140-400) Neutrophils (%) (Auto) 53% (31-73) 93% (31-73) Lymphocytes (%) (Auto) 35% (24-48) 6% (24-48) Monocytes (%) (Auto) 8% (0-9) 1% (0-9) Eosinophils (%) (Auto) 4% (0-3) 0% (0-3) Basophils (%) (Auto) 1% (0-3) 0% (0-3) Neutrophils # (Auto) 8.8x10^3uL (1.8-7.7) 11.6x10^3uL (1.8-7.7) Lymphocytes # (Auto) 5.7x10^3/uL (1.0-4.8) 0.8x10^3/uL (1.0-4.8) Monocytes # (Auto) 1.3x10^3/uL (0.0-1.1) 0.1x10^3/uL (0.0-1.1) Eosinophils # (Auto) 0.6x10^3/uL (0.0-0.7) 0.0x10^3/uL (0.0-0.7) Basophils # (Auto) 0.1x10^3/uL (0.0-0.2) 0.0x10^3/uL (0.0-0.2) O2 Saturation 97% (92-99) Arterial Blood pH 7.32 (7.35-7.45) Arterial Blood pCO2 at Patient Temp 52mmHg (35-46) Arterial Blood pO2 at Patient Temp 125mmHg (75-108) Arterial Blood HCO3 26mmol/L (21-28) Arterial Blood Base Excess 1mmol/L (-3-3) Oxyhemoglobin 66.9% Methemoglobin 0.6% (0.0-1.9) Carbon Monoxide, Quantitative 0.4% (0.0-1.9) FiO2 40.0 Sodium Level 140mmol/L (136-145) 136mmol/L (136-145) Potassium Level 4.9mmol/L (3.5-5.1) 4.2mmol/L (3.5-5.1) Chloride Level 101mmol/L (98-107) 96mmol/L (98-107) Carbon Dioxide Level 31mmol/L (21-32) 29mmol/L (21-32) Anion Gap 8 (6-14) 11 (6-14) Blood Urea Nitrogen 23mg/dL (7-20) 25mg/dL (7-20) Creatinine 1.4mg/dL (0.6-1.0) 1.6mg/dL (0.6-1.0) Estimated GFR (Cockcroft-Gault) 39.2 33.6 Glucose Level 374mg/dL (70-99) 567mg/dL (70-99) Calcium Level 8.9mg/dL (8.5-10.1) 9.0mg/dL (8.5-10.1) Troponin I Quantitative 0.306ng/mL (0.000-0.055) SQ-Qno-L-Type Natriuretic Peptide 1398pg/mL (0-124) Urine Collection Type Unknown Urine Color Yellow Urine Clarity Clear Urine pH 5.0 Urine Specific [place] 1.020 Urine Protein 100mg/dL (NEG-TRACE) Urine Glucose (UA) >=1000mg/dL (NEG) Urine Ketones (Stick) Negativemg/dL (NEG) Urine Blood Negative (NEG) Urine Nitrite Negative (NEG) Urine Bilirubin Negative (NEG) Urine Urobilinogen Dipstick 0.2mg/dL (0.2 mg/dL) Urine Leukocyte Esterase Negative (NEG) Urine RBC 0/HPF (0-2) Urine WBC 1-4/HPF (0-4) Urine Squamous Epithelial Cells Mod/LPF Urine Bacteria Many/HPF (0-FEW) Urine Mucus Mod/LPF Urine Opiates Screen Pos (NEG) Urine Methadone Screen Neg (NEG) Urine Barbiturates Neg (NEG) Urine Phencyclidine Screen Neg (NEG) Urine Amphetamine/Methamphetamine Neg (NEG) Urine Benzodiazepines Screen Neg (NEG) Urine Cocaine Screen Neg (NEG) Urine Cannabinoids Screen Neg (NEG) Urine Ethyl Alcohol Neg (NEG) Nasal Screen MRSA (PCR) Negative (Negative) Segmented Neutrophils % 94% (35-66) Band Neutrophils % 1% (0-9) Lymphocytes % 4% (24-48) Monocytes % 1% (0-10) Platelet Estimate Adequate (ADEQUATE) Test 01/18/17 08:15 01/18/17 11:58 01/18/17 16:56 01/18/17 20:59 O2 Saturation 95% (92-99) Arterial Blood pH 7.41 (7.35-7.45) Arterial Blood pCO2 at Patient Temp 48mmHg (35-46) Arterial Blood pO2 at Patient Temp 77mmHg (75-108) Arterial Blood HCO3 30mmol/L (21-28) Arterial Blood Base Excess 4mmol/L (-3-3) FiO2 34% Glucose (Fingerstick) 443mg/dL (70-99) 372mg/dL (70-99) 346mg/dL (70-99) Test 01/19/17 07:20 01/19/17 07:38 01/19/17 12:40 Sodium Level 135mmol/L (136-145) Potassium Level 4.2mmol/L (3.5-5.1) Chloride Level 96mmol/L (98-107) Carbon Dioxide Level 37mmol/L (21-32) Anion Gap 2 (6-14) Blood Urea Nitrogen 31mg/dL (7-20) Creatinine 1.3mg/dL (0.6-1.0) Estimated GFR (Cockcroft-Gault) 42.7 Glucose Level 363mg/dL (70-99) Calcium Level 9.1mg/dL (8.5-10.1) Glucose (Fingerstick) 331mg/dL (70-99) 306mg/dL (70-99) Laboratory Tests Test 01/18/17 16:56 01/18/17 20:59 01/19/17 07:20 01/19/17 07:38 Glucose (Fingerstick) 372mg/dL (70-99) 346mg/dL (70-99) 331mg/dL (70-99) Sodium Level 135mmol/L (136-145) Potassium Level 4.2mmol/L (3.5-5.1) Chloride Level 96mmol/L (98-107) Carbon Dioxide Level 37mmol/L (21-32) Anion Gap 2 (6-14) Blood Urea Nitrogen 31mg/dL (7-20) Creatinine 1.3mg/dL (0.6-1.0) Estimated GFR (Cockcroft-Gault) 42.7 Glucose Level 363mg/dL (70-99) Calcium Level 9.1mg/dL (8.5-10.1) Test 01/19/17 12:40 Glucose (Fingerstick) 306mg/dL (70-99) Medications Active Scripts Medications Dose Route/Sig Days Date Category Dose Instructions Coreg (Carvedilol) 3.125 Mg Tablet 1 Tab PO BID 12/27/16 Rx Humalog (Insulin Lispro) 100 Unit/1 Ml Insuln.pen 30 Unit SQ TIDAC 12/27/16 Rx Duoneb 0.5-3(2.5) Mg/3 Ml (Albuterol/Ipratropium) 3 Ml Ampul.neb 3 Ml NEB PRN QID 12/27/16 Rx Isosorbide Mononitrate Er (Isosorbide Mononitrate) 60 Mg Tab.er.24h 1 Tab PO DAILY 12/27/16 Rx [Metronidazole] 500 MG Tablet 500 Mg PO Q8HRS 12/27/16 Rx [Metolazone] 2.5 MG Tablet 2.5 Mg PO 3X/WEEK 12/27/16 Rx take on Mon, Wed, Fri AM Lantus (Insulin Glargine,Hum.rec.anlog) 100 Unit/1 Ml Vial 35 Unit SQ BID 12/27/16 Rx Lyrica (Pregabalin) 150 Mg Capsule 1 Cap PO BID 10/07/16 Reported Cymbalta (Duloxetine Hcl) 60 Mg Capsule.dr 1 Cap PO BID 10/07/16 Reported Atorvastatin Calcium 20 Mg Tablet 1 Tab PO DAILY 10/06/16 Reported Nexium Capsule (Esomeprazole Magnesium) 40 Mg Capsule.dr 1 Cap PO DAILY 10/06/16 Reported Aspirin 81 Mg Tab.chew 1 Tab PO DAILY 10/06/16 Reported Nitrostat (Nitroglycerin) 0.4 Mg Tab.subl 0.4 Mg SL PRN Q5MIN PRN 30 05/02/16 Rx Pradaxa (Dabigatran Etexilate Mesylate) 150 Mg Capsule 1 Cap PO BID 10/22/15 Reported Levothyroxine Sodium 50 Mcg Tablet 1 Tab PO DAILY 10/22/15 Reported Fenofibrate (Fenofibrate,Micronized) 134 Mg Capsule 1 Cap PO DAILY 10/22/15 Reported Zanaflex (Tizanidine Hcl) 4 Mg Capsule 4 Mg PO PRN Q8HRS PRN 03/02/15 Reported as needed for muscle cramps no more than every 8hrs Hydrocodone-Apap 10-325 (Hydrocodone Bit/Acetaminophen) 1 Each Tablet 1 Tab PO PRN Q6HRS PRN 03/18/14 Reported as needed for pain every 6 hours Impression . 1. Acute on chronic hypoxemic respiratory failure. 2. Acute on chronic heart failure. Suspect combination of systolic and diastolic. 3. Obstructive sleep apnea. 4. Suspect secondary pulmonary hypertension with acute cor pulmonale. 5. Leukocytosis, suspect reactive. 6. Morbid obesity. Plan . improving with diuresis hopefully home soon 1. Recommend diuresis. 2. No need for antibiotics. 3. The patient has been intolerant to her CPAP at home, will require new sleep study. 4. Consult Cardiology already performed. 5. Continue oxygen supplementation. 6. Avoid salty food. RONA CRAFT MD Jan 19, 2017 15:28
[2017-01-19] MEDS: ATORVASTATIN CALCIUM 20 MG TABLET PO SCH (20:43)
[2017-01-20] MEDS: HYDROCODONE/APAP 10/325 TABLET. PO PRN ×3 (02:32→20:31)
[2017-01-20 03:55] VITALS: BP 126/81
[2017-01-20] MEDS: LEVOTHYROXINE 50 MCG TABLET PO SCH (06:34)
[2017-01-20 06:35] LABS: CREATININE 1.5 mg/dL (0.6-1.0); GFR 36.2; POTASSIUM 4.5 mmol/L (3.5-5.1)
[2017-01-20 07:00] VITALS: BP 127/55
[2017-01-20] MEDS: IPRATRPIUM/ALBUTEROL 0.5/2.5MG 3 ML NEBU. NEB SCH ×4 (07:17→19:38)
[2017-01-20] MEDS: INSULIN ASPART 300 UNITS/3 ML INSULN.PEN SQ SCH ×6 (08:00→17:23)
--- NOTE | 2017-01-20 08:08 | PDOC ---
PULMONARY PROGRESS NOTES Subjective pt less soa Vitals Vital Signs Date Time Temp Pulse Resp B/P Pulse Ox O2 Delivery O2 Flow Rate FiO2 01/20/17 07:18 98 Nasal Cannula 2.0 01/20/17 07:00 98.0 61 18 127/55 98.0 ROS: No Nausea, No Chest Pain, No Abdominal Pain, No Increase Cough General: Alert, No acute distress Lungs: Clear Cardiovascular: S1, S2 Abdomen: Soft Neuro Exam: Alert Extremities: Other (edema) Skin: Warm Labs Laboratory Tests Test 01/18/17 08:15 01/18/17 11:58 01/18/17 16:56 01/18/17 20:59 O2 Saturation 95% (92-99) Arterial Blood pH 7.41 (7.35-7.45) Arterial Blood pCO2 at Patient Temp 48mmHg (35-46) Arterial Blood pO2 at Patient Temp 77mmHg (75-108) Arterial Blood HCO3 30mmol/L (21-28) Arterial Blood Base Excess 4mmol/L (-3-3) FiO2 34% Glucose (Fingerstick) 443mg/dL (70-99) 372mg/dL (70-99) 346mg/dL (70-99) Test 01/19/17 07:20 01/19/17 07:38 01/19/17 12:40 01/19/17 17:11 Sodium Level 135mmol/L (136-145) Potassium Level 4.2mmol/L (3.5-5.1) Chloride Level 96mmol/L (98-107) Carbon Dioxide Level 37mmol/L (21-32) Anion Gap 2 (6-14) Blood Urea Nitrogen 31mg/dL (7-20) Creatinine 1.3mg/dL (0.6-1.0) Estimated GFR (Cockcroft-Gault) 42.7 Glucose Level 363mg/dL (70-99) Calcium Level 9.1mg/dL (8.5-10.1) Glucose (Fingerstick) 331mg/dL (70-99) 306mg/dL (70-99) 183mg/dL (70-99) Test 01/19/17 20:42 01/20/17 05:30 01/20/17 07:38 Glucose (Fingerstick) 183mg/dL (70-99) 144mg/dL (70-99) Sodium Level 136mmol/L (136-145) Potassium Level 4.5mmol/L (3.5-5.1) Chloride Level 96mmol/L (98-107) Carbon Dioxide Level 34mmol/L (21-32) Anion Gap 6 (6-14) Blood Urea Nitrogen 51mg/dL (7-20) Creatinine 1.5mg/dL (0.6-1.0) Estimated GFR (Cockcroft-Gault) 36.2 Glucose Level 163mg/dL (70-99) Calcium Level 9.0mg/dL (8.5-10.1) Laboratory Tests Test 01/19/17 12:40 01/19/17 17:11 01/19/17 20:42 01/20/17 05:30 Glucose (Fingerstick) 306mg/dL (70-99) 183mg/dL (70-99) 183mg/dL (70-99) Sodium Level 136mmol/L (136-145) Potassium Level 4.5mmol/L (3.5-5.1) Chloride Level 96mmol/L (98-107) Carbon Dioxide Level 34mmol/L (21-32) Anion Gap 6 (6-14) Blood Urea Nitrogen 51mg/dL (7-20) Creatinine 1.5mg/dL (0.6-1.0) Estimated GFR (Cockcroft-Gault) 36.2 Glucose Level 163mg/dL (70-99) Calcium Level 9.0mg/dL (8.5-10.1) Test 01/20/17 07:38 Glucose (Fingerstick) 144mg/dL (70-99) Medications Active Scripts Medications Dose Route/Sig Days Date Category Dose Instructions Coreg (Carvedilol) 3.125 Mg Tablet 1 Tab PO BID 12/27/16 Rx Humalog (Insulin Lispro) 100 Unit/1 Ml Insuln.pen 30 Unit SQ TIDAC 12/27/16 Rx Duoneb 0.5-3(2.5) Mg/3 Ml (Albuterol/Ipratropium) 3 Ml Ampul.neb 3 Ml NEB PRN QID 12/27/16 Rx Isosorbide Mononitrate Er (Isosorbide Mononitrate) 60 Mg Tab.er.24h 1 Tab PO DAILY 12/27/16 Rx [Metronidazole] 500 MG Tablet 500 Mg PO Q8HRS 12/27/16 Rx [Metolazone] 2.5 MG Tablet 2.5 Mg PO 3X/WEEK 12/27/16 Rx take on Mon, Wed, Mon AM Lantus (Insulin Glargine,Hum.rec.anlog) 100 Unit/1 Ml Vial 35 Unit SQ BID 12/27/16 Rx Lyrica (Pregabalin) 150 Mg Capsule 1 Cap PO BID 10/07/16 Reported Cymbalta (Duloxetine Hcl) 60 Mg Capsule.dr 1 Cap PO BID 10/07/16 Reported Atorvastatin Calcium 20 Mg Tablet 1 Tab PO DAILY 10/06/16 Reported Nexium Capsule (Esomeprazole Magnesium) 40 Mg Capsule.dr 1 Cap PO DAILY 10/06/16 Reported Aspirin 81 Mg Tab.chew 1 Tab PO DAILY 10/06/16 Reported Nitrostat (Nitroglycerin) 0.4 Mg Tab.subl 0.4 Mg SL PRN Q5MIN PRN 30 05/02/16 Rx Pradaxa (Dabigatran Etexilate Mesylate) 150 Mg Capsule 1 Cap PO BID 10/22/15 Reported Levothyroxine Sodium 50 Mcg Tablet 1 Tab PO DAILY 10/22/15 Reported Fenofibrate (Fenofibrate,Micronized) 134 Mg Capsule 1 Cap PO DAILY 10/22/15 Reported Zanaflex (Tizanidine Hcl) 4 Mg Capsule 4 Mg PO PRN Q8HRS PRN 03/02/15 Reported as needed for muscle cramps no more than every 8hrs Hydrocodone-Apap 10-325 (Hydrocodone Bit/Acetaminophen) 1 Each Tablet 1 Tab PO PRN Q6HRS PRN 03/18/14 Reported as needed for pain every 6 hours Impression . 1. Acute on chronic hypoxemic respiratory failure. 2. Acute on chronic heart failure. Suspect combination of systolic and diastolic. 3. Obstructive sleep apnea. 4. Suspect secondary pulmonary hypertension with acute cor pulmonale. 5. Leukocytosis, suspect reactive. 6. Morbid obesity. Plan . improving with diuresis d/c Dr Giles will d/c today if all agree repeat cxr RONA CRAFT MD Jan 20, 2017 08:08
[2017-01-20] MEDS: METOLAZONE 2.5 MG TABLET PO SCH (10:01)
[2017-01-20] MEDS: DULoxetine HCL 30 MG CAPSULE.DR PO SCH ×2 (10:01→20:30)
[2017-01-20] MEDS: FENOFIBRATE,MICRONIZED 134 MG CAPSULE PO SCH (10:02)
[2017-01-20] MEDS: BUMETANIDE 1 MG TABLET. PO SCH (10:02)
[2017-01-20] MEDS: DABIGATRAN ETEXILATE 150 MG CAPSULE. PO SCH ×2 (10:02→20:30)
[2017-01-20] MEDS: LISINOPRIL 20 MG TABLET PO SCH ×2 (10:03→20:35)
[2017-01-20] MEDS: amLODIPine BESYLATE 5 MG TABLET PO SCH ×2 (10:03→20:34)
[2017-01-20] MEDS: DOCUSATE SODIUM 100 MG CAPSULE. PO SCH ×2 (10:03→20:30)
[2017-01-20] MEDS: ASPIRIN CHEWABLE 81 MG TABLET. PO SCH (10:03)
[2017-01-20] MEDS: ISOSORBIDE MONONITRATE ER 30 MG TAB.ER.24H PO SCH (10:03)
[2017-01-20] MEDS: PANTOPRAZOLE 40 MG TABLET.DR. PO SCH (10:03)
[2017-01-20] MEDS: PREGABALIN 75 MG CAPSULE PO SCH ×2 (10:04→20:30)
[2017-01-20] MEDS: METOPROLOL TART IMMED RELEASE 50 MG TABLET. PO SCH ×2 (10:04→20:34)
[2017-01-20] MEDS: INSULIN DETEMIR 300 UNITS/3 ML INSULN.PEN. SQ SCH ×2 (10:09→22:04)
[2017-01-20 11:00] VITALS: BP 135/70
--- NOTE | 2017-01-20 11:04 | RAD ---
Chest, 2 views, 01/20/2017: History: Congestive heart failure Comparison is made to a study from 01/17/2017. The heart is enlarged. There is calcific plaquing of aorta. The pulmonary vascularity has improved and is better defined. There is mild bibasilar linear atelectasis and/or scarring. No consolidating infiltrate is seen. There is no evidence of pleural fluid. Surgical clips are again noted in the paraspinous region on the right in the upper chest. IMPRESSION: 1. Resolving mild congestive heart failure. 2. Mild bibasilar linear atelectasis and/or scarring.
--- NOTE | 2017-01-20 11:55 | PDOC2 ---
DATE OF CONSULT Date of Consult 01/20/2017 REASON FOR CONSULT Reason for Consult CKD III REFERRING PHYSICIAN Referring Provider Dr Giles CHIEF COMPLAINT Chief Complaint Problems Medical Problems: (1) Acute and chronic respiratory failure ([id number]) Status: Acute (2) Acute on chronic congestive heart failure Status: Acute (3) COPD exacerbation Status: Acute SOURCE Source Pt and EMR HPI HPI as dictatted PMH PMH PAST MEDICAL HISTORY: Significant for diabetes mellitus type 2; hyperlipidemia; obstructive sleep apnea for which she cannot tolerate CPAP; pulmonary embolism for which she is on chronic anticoagulation; coronary artery disease, status post history of prior stent placement; gastroesophageal reflux disease; carotid artery stenosis, approximately 40%-60% on the right; hypothyroidism; gout; paroxysmal atrial fibrillation; kidney stones; COPD/asthma; hypertension; CVA with some minimal residual deficits, but most of resolved at this time; diabetic peripheral neuropathy; overactive bladder; morbid obesity; chronic low back pain; and chronic kidney disease stage 3. PAST SURGICAL HISTORY: Hysterectomy and bilateral oophorectomy; appendectomy; right thoracotomy for reflex sympathetic dystrophy; breast lumpectomies x 2, which were reported benign; cholecystectomy; right wrist surgery; coronary artery stent placement; and bladder suspension twice. SOCIAL HISTORY: She lives at home with her family and . She does help to take care of grandchildren at times. She denies any alcohol or tobacco use. She has smoked in the past, but has not smoked for at least 5 years. She is on disability for her chronic medical problems. FAMILY HISTORY: Mother with diabetes and heart disease. Father with diabetes and heart disease ALLERGIES Allergies: Coded Allergies: No Known Drug Allergies (Unverified , 12/23/16) ROS ROS GEN: no Fevers no Chills EYES: no new Visual Complaints ENT: no EN Drainage no Hearing deficiets CVS: no Orthopnea no CP RESP: min SOB ch LEVIN GI: no Nausea no Vomiting : no Dysuria no Urgency HEME: no easy bruising no Palp Ly Nodes NEURO no Focal Weakness no Sz PSYCH: no Suicidal Ideation no Depression SKIN: no Rashes ENDO: no Polyuria or Polydipsia no Hot/Cold Intolerance MU SK: ch back Arthraigia no Myalgia VITAL SIGNS Vital Signs VS - Last 72 Hours, by Label Date Time Temp Pulse Resp B/P Pulse Ox O2 Delivery O2 Flow Rate FiO2 01/20/17 11:10 97 Nasal Cannula 2.0 4/28/17 11:00 97.6 68 18 135/70 96 Nasal Cannula 3.5 97.6 01/20/17 10:04 61 127/55 01/20/17 10:03 61 127/55 01/20/17 10:03 61 127/55 01/20/17 10:03 61 127/55 01/20/17 08:10 Nasal Cannula 3.0 01/20/17 07:18 98 Nasal Cannula 2.0 01/20/17 07:00 98.0 61 18 127/55 95 Nasal Cannula 3.5 98.0 01/20/17 03:55 97.9 59 18 126/81 96 Nasal Cannula 3.5 97.9 01/20/17 03:32 94 Nasal Cannula 3.0 01/20/17 02:32 94 Nasal Cannula 3.0 01/19/17 23:00 98.0 63 18 143/71 94 Nasal Cannula 3.5 98.0 01/19/17 20:44 99 Nasal Cannula 3.0 01/19/17 20:44 67 112/55 01/19/17 20:43 67 112/55 01/19/17 20:43 67 112/55 01/19/17 20:00 Nasal Cannula 3.0 01/19/17 19:35 97.5 67 20 112/55 99 Nasal Cannula 3.5 97.5 01/19/17 18:29 Nasal Cannula 3.0 01/19/17 15:08 96 Nasal Cannula 3.0 01/19/17 15:00 97.6 63 22 132/67 97 Nasal Cannula 3.5 97.6 01/19/17 12:00 97.6 62 24 114/62 93 Nasal Cannula 3.5 97.6 01/19/17 11:57 90 Room Air 01/19/17 11:33 93 Nasal Cannula 3.5 01/19/17 09:15 93 Nasal Cannula 3.0 01/19/17 08:31 70 102/48 01/19/17 08:30 70 102/48 01/19/17 08:30 70 102/48 01/19/17 08:29 70 102/48 01/19/17 08:00 Nasal Cannula 3.5 01/19/17 08:00 98.0 73 26 134/76 98 Nasal Cannula 3.5 98.0 PHYSICAL EXAM Physical Exam General Appearance: Awake Alert Oriented x 3 In no Distress Eyes: VIsion Unchanged Conjunctiva Normal EN: No EN Drainage Mucous Memb. dryish Neck: no JVD no JVP Supple no Thyromegaly; short thick neck CVS: S1 S2 ? Murmur No Gallop No Rub +2 Edema; distal HS Resp: no Rales no Rhonchi no Acc. Muscle use - distal BS GI: BS +ve NO Bruit Non Tender Non Distended; Morbidly obese : no CVA tenderness; no Suprapubic Tenderness SKIN: no Rashes Breast Exam deferred Mu.Sk: Adequate ROM no Muscle Atrophy Heme: Unable to palpate Obvious LAD no palp Splenomegaly NEURO: Good Strength and Tone Cranial Nerves II - XII grossly intact Psych: ? Depressed no Active hallucination ASSESSMENT/PLAN Assessment/Plan CKD III - Creat between 1.3 and 1.5 for now. Previously creat was 1.15. DM/ HTNsive / ASVDz asso /NS. Current FLuid and E-lyte status does not necessitate emergent need for Dialysis. Will re-evaluate for Dialysis in am Anemia: check Iron; HTN: Current BP meds reviewed. See orders for changes. ASVDz with CAD - close to euvolemic for C edema - suspect partially from MARY and Cor Pulmonale ^ed CO2 - suspect due to Ch Resp Acidosis from CPAP non-use and MARY Proteinruia - Quantitate with 24-hr Urine Discussed Plan of Care and prognosis etc. at length with family. IMAGES Images: Most recent Abd CT: There is bilateral renal cortical scarring. There is no evidence of renal obstruction or mass. There is moderate aortoiliac calcific plaquing without evidence of aneurysm. Chest, 2 views, 01/20/2017: History: Congestive heart failure Comparison is made to a study from 01/17/2017. The heart is enlarged. There is calcific plaquing of aorta. The pulmonary vascularity has improved and is better defined. There is mild bibasilar linear atelectasis and/or scarring. No consolidating infiltrate is seen. There is no evidence of pleural fluid. Surgical clips are again noted in the paraspinous region on the right in the upper chest. IMPRESSION: 1. Resolving mild congestive heart failure. 2. Mild bibasilar linear atelectasis and/or scarring. LABS Labs: Laboratory Tests Test 01/19/17 12:40 01/19/17 17:11 01/19/17 20:42 01/20/17 05:30 Glucose (Fingerstick) 306mg/dL (70-99) 183mg/dL (70-99) 183mg/dL (70-99) Sodium Level 136mmol/L (136-145) Chloride Level 96mmol/L (98-107) Carbon Dioxide Level 34mmol/L (21-32) Anion Gap 6 (6-14) Blood Urea Nitrogen 51mg/dL (7-20) Estimated GFR (Cockcroft-Gault) 36.2 Glucose Level 163mg/dL (70-99) Calcium Level 9.0mg/dL (8.5-10.1) Test 01/20/17 07:38 01/20/17 11:38 Glucose (Fingerstick) 144mg/dL (70-99) 250mg/dL (70-99) RENETTA HARRIS MD Jan 20, 2017 11:55
[2017-01-20] MEDS ORDERED: MAGNESIUM SULFATE 2GM 50 ML IV PRN (12:15)
[2017-01-20 13:03] LABS: % SAT IRON 16 % (15-34); IRON,SERUM 58 ug/dL (50-170)
[2017-01-20 14:53] VITALS: BP 91/39
[2017-01-20] MEDS: ANTI-COAG MONITOR BY PHARMACY. MC PRN (15:34)
--- NOTE | 2017-01-20 15:48 | PDOC ---
PROGRESS NOTES Subjective Subjective Patient appears well. No complaints. Objective Objective Vital Signs Date Time Temp Pulse Resp B/P Pulse Ox O2 Delivery O2 Flow Rate FiO2 01/20/17 14:53 97.6 75 18 91/39 92 Nasal Cannula 3.5 97.6 Intake and Output 01/20/17 07:00 Intake Total 800 ml Output Total 1600 ml Balance -800 ml Intake Oral 800 ml Output Urine Total 1600 ml # Bowel Movements 1 Physical Exam Physical Exam No changes to cardiac exam. Assessment Assessment Problems Medical Problems: (1) Acute and chronic respiratory failure ([id number]) Status: Acute (2) Acute on chronic congestive heart failure Status: Acute (3) COPD exacerbation Status: Acute Plan Plan of Care Nephrology recommended 24 hour urine collection Consider cardiac cath if nephrology agrees kidneys stable for procedure. Continue medications: -lisinopril 20 mg bid -metoprolol 50 mg bid -amlodipine 5 mg bid Agree with primary's plan Thank you for the opportunity to help with the care of this patient! Comment Review of Relevant I have reviewed the following items jim (where applicable) has been applied. Labs Laboratory Tests Test 01/18/17 16:56 01/18/17 20:59 01/19/17 07:20 01/19/17 07:38 Glucose (Fingerstick) 372mg/dL (70-99) 346mg/dL (70-99) 331mg/dL (70-99) Sodium Level 135mmol/L (136-145) Potassium Level 4.2mmol/L (3.5-5.1) Chloride Level 96mmol/L (98-107) Carbon Dioxide Level 37mmol/L (21-32) Anion Gap 2 (6-14) Blood Urea Nitrogen 31mg/dL (7-20) Creatinine 1.3mg/dL (0.6-1.0) Estimated GFR (Cockcroft-Gault) 42.7 Glucose Level 363mg/dL (70-99) Calcium Level 9.1mg/dL (8.5-10.1) Test 01/19/17 12:40 01/19/17 17:11 01/19/17 20:42 01/20/17 05:30 Glucose (Fingerstick) 306mg/dL (70-99) 183mg/dL (70-99) 183mg/dL (70-99) Reticulocyte Count (auto) 3.3% (0.5-2.5) Sodium Level 136mmol/L (136-145) Potassium Level 4.5mmol/L (3.5-5.1) Chloride Level 96mmol/L (98-107) Carbon Dioxide Level 34mmol/L (21-32) Anion Gap 6 (6-14) Blood Urea Nitrogen 51mg/dL (7-20) Creatinine 1.5mg/dL (0.6-1.0) Estimated GFR (Cockcroft-Gault) 36.2 Glucose Level 163mg/dL (70-99) Calcium Level 9.0mg/dL (8.5-10.1) Iron Level 58ug/dL (50-170) Total Iron Binding Capacity 357ug/dL (250-450) Iron Saturation 16% (15-34) Ferritin 63ng/mL (8-252) Test 01/20/17 07:38 01/20/17 11:38 Glucose (Fingerstick) 144mg/dL (70-99) 250mg/dL (70-99) Laboratory Tests Test 01/19/17 17:11 01/19/17 20:42 01/20/17 05:30 01/20/17 07:38 Glucose (Fingerstick) 183mg/dL (70-99) 183mg/dL (70-99) 144mg/dL (70-99) Reticulocyte Count (auto) 3.3% (0.5-2.5) Sodium Level 136mmol/L (136-145) Potassium Level 4.5mmol/L (3.5-5.1) Chloride Level 96mmol/L (98-107) Carbon Dioxide Level 34mmol/L (21-32) Anion Gap 6 (6-14) Blood Urea Nitrogen 51mg/dL (7-20) Creatinine 1.5mg/dL (0.6-1.0) Estimated GFR (Cockcroft-Gault) 36.2 Glucose Level 163mg/dL (70-99) Calcium Level 9.0mg/dL (8.5-10.1) Iron Level 58ug/dL (50-170) Total Iron Binding Capacity 357ug/dL (250-450) Iron Saturation 16% (15-34) Ferritin 63ng/mL (8-252) Test 01/20/17 11:38 Glucose (Fingerstick) 250mg/dL (70-99) Microbiology 01/17/17 Urine Culture - Preliminary, Resulted 01/17/17 Urine Culture Result 1 (CANDACE) - Preliminary, Resulted Medications Current Medications Ipratropium [place] (Atrovent) 0.5 mg 1X ONCE NEB ; Start 01/17/17 at 21:45; Stop 01/17/17 at 22:00; Status DC Methylprednisolone Sodium Succinate (Solu-Medrol 125mg Vial) 125 mg 1X ONCE IV Last administered on 01/17/17 22:06; Start 01/17/17 at 21:45; Stop 01/17/17 at 21:46; Status DC Fentanyl Citrate (Fentanyl 2ml Vial) 50 mcg PRN Q15MIN PRN IV PAIN GREATER THAN 3/10 Last administered on 01/17/17 22:44; Start 01/17/17 at 21:45; Stop at 08:20; Status DC Albuterol/ Ipratropium (Duoneb) 3 ml STK-MED ONCE .ROUTE ; Start 01/17/17 at 21: 44; Stop 01/17/17 at 21:45; Status DC Albuterol Sulfate (Ventolin Neb Soln) 2.5 mg STK-MED ONCE .ROUTE ; Start at 21:44; Stop 01/17/17 at 21:45; Status DC Albuterol/ Ipratropium (Duoneb) 3 ml 1X ONCE NEB Last administered on 22:03; Start 01/17/17 at 22:00; Stop 01/17/17 at 22:01; Status DC Albuterol Sulfate (Ventolin Neb Soln) 10 mg 1X ONCE CONT NEB Last administered on 01/17/17 21:50; Start 01/17/17 at 22:15; Stop 01/17/17 at 22:16 ; Status DC Furosemide (Lasix) 40 mg 1X ONCE IVP Last administered on 01/17/17 22:45; Start 01/17/17 at 22:30; Stop 01/17/17 at 22:31; Status DC Levofloxacin/ Dextrose 1 each 1 each PRN DAILY PRN MC SEE COMMENTS; Start 01/17 at 22:30; Stop 01/18/17 at 13:13; Status DC Levofloxacin/ Dextrose (LEVAQUIN 500mg PREMIX) 100 ml @ 100 mls/hr 1X ONCE IV Last administered on 01/18/17 00:38; Start 01/17/17 at 23:00; Stop 01/17/17 at 23:59; Status DC Enoxaparin Sodium (Lovenox 100mg Syringe) 100 mg 1X ONCE SQ Last administered on 01/18/17 02:14; Start 01/17/17 at 23:30; Stop 01/17/17 at 23:31; Status DC Ondansetron HCl (Zofran) 4 mg PRN Q8HRS PRN IV NAUSEA/VOMITING; Start 01/17/17 at 23:30; Stop 01/18/17 at 23:29; Status DC Fentanyl Citrate (Fentanyl 2ml Vial) 50 mcg PRN Q2HR PRN IV PAIN; Start at 23:30; Stop 01/18/17 at 23:29; Status DC Acetaminophen (Tylenol) 650 mg PRN Q4HRS PRN PO FEVER; Start 01/17/17 at 23:30 ; Stop 01/18/17 at 23:29; Status DC Nitroglycerin (Nitrostat) 0.4 mg PRN Q5MIN PRN SL CHEST PAIN; Start 01/17/17 at 23:30; Stop 01/18/17 at 15:03; Status DC Albuterol/ Ipratropium 3 ml 3 ml RTQID NEB Last administered on 01/18/17 11:45 ; Start 01/18/17 at 08:00; Stop 01/18/17 at 15:03; Status DC Levofloxacin/ Dextrose 100 ml @ 100 mls/hr Q24H IV ; Start 01/18/17 at 21:00; Stop 01/18/17 at 21:00; Status DC Sodium Chloride 1,000 ml @ 40 mls/hr Q24H IV Last administered on 01/19/17 01 :58; Start 01/18/17 at 00:45; Stop 01/19/17 at 07:43; Status DC Nicardipine HCl/ Sodium Chloride (Cardene/Iv Sodium Chloride 0.9% 250ml) 270 ml @ 0 mls/hr CONT PRN IV SEE I/O RECORD Last administered on 01/18/17 01:41; Start 01/18/17 at 00:45; Stop 01/19/17 at 07:43; Status DC Tizanidine HCl (Zanaflex) 4 mg PRN Q8HRS PRN PO MUSCLE SPASMS Last administered on 01/18/17 02:23; Start 01/18/17 at 01:45; Stop 01/18/17 at 13:20 ; Status DC Tizanidine HCl (Zanaflex) 2 mg PRN Q8HRS PRN PO MUSCLE SPASMS; Start 01/18/17 at 01:45; Status UNV Insulin Aspart (Novolog) 0-9 UNITS TIDWMEALS SQ Last administered on 01/20/17 12:08; Start 01/18/17 at 08:00 Dextrose (Dextrose 50%-Water Syringe) 12.5 gm PRN Q15MIN PRN IV SEE COMMENTS; Start 01/18/17 at 07:45 Aspirin (Children'S Aspirin) 81 mg DAILY PO Last administered on 01/20/17 10: 03; Start 01/18/17 at 09:00 Atorvastatin Calcium (Lipitor) 20 mg QHS PO Last administered on 01/19/17 20: 43; Start 01/18/17 at 21:00 Dabigatran (Pradaxa) 150 mg BID PO Last administered on 01/20/17 10:02; Start 01/18/17 at 09:00 Fenofibrate (Lofibra) 134 mg DAILY PO Last administered on 01/20/17 10:02; Start 01/18/17 at 09:00 Acetaminophen/ Hydrocodone Bitart (Lortab 10/325) 1 tab PRN Q6HRS PRN PO PAIN Last administered on 01/19/17 06:04; Start 01/18/17 at 07:45; Stop 01/19/17 at 07:43; Status DC Isosorbide Mononitrate (Imdur) 60 mg DAILY PO Last administered on 01/20/17 10 :03; Start 01/18/17 at 09:00 Levothyroxine Sodium (Synthroid) 50 mcg DAILY07 PO Last administered on 06:34; Start 01/18/17 at 08:00 Nitroglycerin (Nitrostat) 0.4 mg PRN Q5MIN PRN SL CP RATING > 1/10; Start 01/18 at 07:45 Duloxetine HCl (Cymbalta) 60 mg BID PO Last administered on 01/20/17 10:01; Start 01/18/17 at 09:00 Pantoprazole Sodium (Protonix) 40 mg DAILYAC PO Last administered on 01/20/17 10:03; Start 01/18/17 at 08:30 Insulin Detemir (Levemir) 35 units BID SQ Last administered on 01/18/17 18:06 ; Start 01/18/17 at 21:00; Stop 01/19/17 at 07:43; Status DC Insulin Aspart (Novolog) 30 units TIDAC SQ Last administered on 01/18/17 16:59 ; Start 01/18/17 at 11:30; Stop 01/19/17 at 07:43; Status DC Pregabalin (Lyrica) 150 mg BID PO Last administered on 01/20/17 10:04; Start 01/18/17 at 09:00 Tizanidine HCl (Zanaflex) 4 mg PRN Q8HRS PRN PO MUSCLE SPASMS Last administered on 01/19/17 00:16; Start 01/18/17 at 08:15; Stop 01/19/17 at 07:43 ; Status DC Metolazone (Zaroxolyn) 2.5 mg MoWeFr PO Last administered on 01/20/17 10:01; Start 01/18/17 at 09:00 Albuterol/ Ipratropium (Duoneb) 3 ml QID NEB Last administered on 01/20/17 11: 09; Start 01/18/17 at 09:00 Insulin Aspart (Novolog) 30 units TIDAC SQ ; Start 01/18/17 at 11:30; Status UNV Insulin Aspart (Novolog) 30 units 1X ONCE SQ Last administered on 01/18/17 08 :55; Start 01/18/17 at 10:30; Stop 01/18/17 at 10:31; Status DC Lisinopril (Prinivil) 20 mg BID PO Last administered on 01/20/17 10:03; Start 01/18/17 at 13:00 Metoprolol Tartrate (Lopressor) 50 mg BID PO Last administered on 01/20/17 10: 04; Start 01/18/17 at 13:00 Amlodipine Besylate (Norvasc) 5 mg DAILY PO Last administered on 01/18/17 13: 27; Start 01/18/17 at 13:00; Stop 01/18/17 at 13:34; Status DC Lisinopril (Prinivil) 20 mg BID PO ; Start 01/18/17 at 21:00; Stop 01/18/17 at 21:00; Status DC Metoprolol Succinate (Toprol Xl) 50 mg BID PO ; Start 01/18/17 at 21:00; Stop at 21:00; Status DC Amlodipine Besylate (Norvasc) 5 mg BID PO Last administered on 01/20/17 10:03 ; Start 01/18/17 at 21:00 Bumetanide (Bumex) 2 mg DAILY PO Last administered on 01/20/17 10:02; Start at 14:00 Info (Anti-Coagulation Monitoring By Pharmacy) 1 each PRN DAILY PRN MC SEE COMMENTS Last administered on 01/20/17 15:34; Start 01/18/17 at 13:45 Docusate Sodium (Colace) 100 mg BID PO Last administered on 01/20/17 10:03; Start 01/18/17 at 22:00 Acetaminophen/ Hydrocodone Bitart (Lortab 10/325) 1 tab PRN Q4HRS PRN PO PAIN Last administered on 01/20/17 12:05; Start 01/19/17 at 07:45 Insulin Aspart (Novolog) 35 units TIDAC SQ Last administered on 01/20/17 12:07 ; Start 01/19/17 at 08:00 Insulin Detemir (Levemir) 40 units BID SQ Last administered on 01/20/17 10:09 ; Start 01/19/17 at 09:00 Tizanidine HCl (Zanaflex) 4 mg PRN TID PRN PO MUSCLE SPASMS; Start 01/19/17 at 08:15 Acetaminophen (Tylenol) 650 mg PRN Q6HRS PRN PO MILD PAIN / TEMP; Start at 07:45 Magnesium Hydroxide (Milk Of Magnesia) 2,400 mg PRN DAILY PRN PO CONSTIPATION Last administered on 01/19/17 19:29; Start 01/19/17 at 08:15 Magnesium Hydroxide (Milk Of Magnesia) 2,400 mg 1X ONCE PO Last administered on 01/19/17 08:28; Start 01/19/17 at 08:15; Stop 01/19/17 at 08:16; Status DC Bisacodyl 10 mg 10 mg PRN DAILY PRN MS CONSTIPATION Last administered on 23:01; Start 01/19/17 at 08:15 Magnesium Sulfate/ Dextrose (Magnesium Sulfate PREMIX 2GM) 50 ml @ 25 mls/hr PRN DAILY PRN IV for Mag < 1.7 on am labs; Start 01/20/17 at 12:15 Active Scripts Active Coreg (Carvedilol) 3.125 Mg Tablet 1 Tab PO BID Humalog (Insulin Lispro) 100 Unit/1 Ml Insuln.pen 30 Unit SQ TIDAC Duoneb 0.5-3(2.5) Mg/3 Ml (Albuterol/Ipratropium) 3 Ml Ampul.neb 3 Ml NEB PRN QID Isosorbide Mononitrate Er (Isosorbide Mononitrate) 60 Mg Tab.er.24h 1 Tab PO DAILY [Metronidazole] 500 MG Tablet 500 Mg PO Q8HRS [Metolazone] 2.5 MG Tablet 2.5 Mg PO 3X/WEEK take on Mon, Wed, Fri AM Lantus (Insulin Glargine,Hum.rec.anlog) 100 Unit/1 Ml Vial 35 Unit SQ BID Nitrostat (Nitroglycerin) 0.4 Mg Tab.subl 0.4 Mg SL PRN Q5MIN PRN 30 Days Reported Lyrica (Pregabalin) 150 Mg Capsule 1 Cap PO BID Cymbalta (Duloxetine Hcl) 60 Mg Capsule.dr 1 Cap PO BID Atorvastatin Calcium 20 Mg Tablet 1 Tab PO DAILY Nexium Capsule (Esomeprazole Magnesium) 40 Mg Capsule.dr 1 Cap PO DAILY Aspirin 81 Mg Tab.chew 1 Tab PO DAILY Pradaxa (Dabigatran Etexilate Mesylate) 150 Mg Capsule 1 Cap PO BID Levothyroxine Sodium 50 Mcg Tablet 1 Tab PO DAILY Fenofibrate (Fenofibrate,Micronized) 134 Mg Capsule 1 Cap PO DAILY Zanaflex (Tizanidine Hcl) 4 Mg Capsule 4 Mg PO PRN Q8HRS PRN as needed for muscle cramps no more than every 8hrs Hydrocodone-Apap 10-325 (Hydrocodone Bit/Acetaminophen) 1 Each Tablet 1 Tab PO PRN Q6HRS PRN as needed for pain every 6 hours Vitals/I & O Vital Sign - Last 24 Hours 01/19/17 01/19/17 01/19/17 01/19/17 18:29 19:35 20:00 20:43 Temp 97.5 97.5 Pulse 67 67 Resp 20 B/P 112/55 112/55 Pulse Ox 99 O2 Delivery Nasal Cannula Nasal Cannula Nasal Cannula O2 Flow Rate 3.0 3.5 3.0 01/19/17 01/19/17 01/19/17 01/19/17 20:43 20:44 20:44 23:00 Temp 98.0 98.0 Pulse 67 67 63 Resp 18 B/P 112/55 112/55 143/71 Pulse Ox 99 94 O2 Delivery Nasal Cannula Nasal Cannula O2 Flow Rate 3.0 3.5 01/20/17 01/20/17 01/20/17 01/20/17 02:32 03:55 07:00 07:18 Temp 97.9 98.0 97.9 98.0 Pulse 59 61 Resp 18 18 B/P 126/81 127/55 Pulse Ox 94 96 95 98 O2 Delivery Nasal Cannula Nasal Cannula Nasal Cannula Nasal Cannula O2 Flow Rate 3.0 3.5 3.5 2.0 01/20/17 01/20/17 01/20/17 01/20/17 08:10 10:03 10:03 10:03 Pulse 61 61 61 B/P 127/55 127/55 127/55 O2 Delivery Nasal Cannula O2 Flow Rate 3.0 01/20/17 01/20/17 01/20/17 01/20/17 10:04 11:00 11:10 12:05 Temp 97.6 97.6 Pulse 61 68 Resp 18 B/P 127/55 135/70 Pulse Ox 96 97 97 O2 Delivery Nasal Cannula Nasal Cannula Nasal Cannula O2 Flow Rate 3.5 2.0 2.0 01/20/17 01/20/17 13:33 14:53 Temp 97.6 97.6 Pulse 75 Resp 18 B/P 91/39 Pulse Ox 97 92 O2 Delivery Nasal Cannula Nasal Cannula O2 Flow Rate 2.0 3.5 Intake and Output 01/19/17 01/19/17 01/20/17 15:00 23:00 07:00 Intake Total 800 ml Output Total 900 ml 700 ml Balance -100 ml -700 ml JON WEAVER MD Jan 20, 2017 15:48
--- NOTE | 2017-01-20 19:00 | PDOC ---
SUBJECTIVE Subjective Constipated. Breathing is about the same. Some tightness of the chest. Eating and drinking okay. Doing 24-hour urine collection. OBJECTIVE Vital Signs Vital Signs Date Time Temp Pulse Resp B/P Pulse Ox O2 Delivery O2 Flow Rate FiO2 01/20/17 16:01 93 Room Air 01/20/17 14:53 97.6 75 18 91/39 92 Nasal Cannula 3.5 97.6 01/20/17 13:33 97 Nasal Cannula 2.0 01/20/17 12:05 97 Nasal Cannula 2.0 01/20/17 11:10 97 Nasal Cannula 2.0 01/20/17 11:00 97.6 68 18 135/70 96 Nasal Cannula 3.5 97.6 01/20/17 10:04 61 127/55 01/20/17 10:03 61 127/55 01/20/17 10:03 61 127/55 01/20/17 10:03 61 127/55 01/20/17 08:10 Nasal Cannula 3.0 01/20/17 07:18 98 Nasal Cannula 2.0 01/20/17 07:00 98.0 61 18 127/55 95 Nasal Cannula 3.5 98.0 01/20/17 03:55 97.9 59 18 126/81 96 Nasal Cannula 3.5 97.9 01/20/17 02:32 94 Nasal Cannula 3.0 01/19/17 23:00 98.0 63 18 143/71 94 Nasal Cannula 3.5 98.0 01/19/17 20:44 99 Nasal Cannula 3.0 01/19/17 20:44 67 112/55 01/19/17 20:43 67 112/55 01/19/17 20:43 67 112/55 01/19/17 20:00 Nasal Cannula 3.0 01/19/17 19:35 97.5 67 20 112/55 99 Nasal Cannula 3.5 97.5 I & O Intake and Output 01/20/17 07:00 Intake Total 800 ml Output Total 1600 ml Balance -800 ml Intake Oral 800 ml Output Urine Total 1600 ml # Bowel Movements 1 PHYSICAL EXAM Physical Exam General: No acute distress. Sitting in chair. Mental status: Alert and oriented. Chest: Decreased air movement throughout. Generally clear. CV: Normal rate. Regular rhythm. No murmur. Abdomen: Normal bowel sounds. Fairly firm, obese. Not distended. No tenderness. No guarding. No rebound. Extremities: 2+ bilateral lower extremity edema. ASSESSMENT/PLAN Assessment/Plan 1. Acute on chronic respiratory failure, multifactorial likely in nature: Continue nebulizer treatments, diuresis. Continue per specialists. 2. COPD exacerbation: Stable. No antibiotics needed. 3. Acute on chronic diastolic congestive heart failure: Was having good diuresis. That is slowed down a little bit but still net negative. 24-hour urine collection now to evaluate renal function for possible catheterization. 4. Uncontrolled diabetes mellitus type 2: Increased insulin. Dietary compliance is an issue at times. Blood sugars are doing better now. Continue current insulin regimen. 5. Hypertension: Improved. Was actually a little bit low today. May need to adjust 6. Morbid obesity: Contributes to the above. 7. History of obstructive sleep apnea and pulmonary hypertension: Consider outpatient repeat sleep study per pulmonology when the patient is stable status. She has not been compliant with CPAP in the past. 8. History of coronary artery disease: There was a plan from her last hospitalization to possibly do a catheterization to see if she does have an ischemic component to her congestive heart failure. Agree with Dr. Major that we need to make sure that her kidneys would be capable of tolerating a catheterization. Even if they were she may still be a better candidate for medical management. We'll defer to nephrology and cardiology regarding possible future cardiac catheterization. If she is going to undergo catheterization, she would benefit from staying in the hospital since she does have a compliance problem at time and we could maximize her status prior to catheterization. 9. Disposition: Patient's discharge on hold until we see the results of the 24- hour urine collection which will be finished tomorrow afternoon and if we will proceed with catheterization. Problems: COMMENT Lab Laboratory Tests Test 01/19/17 20:42 01/20/17 05:30 01/20/17 07:38 01/20/17 11:38 Glucose (Fingerstick) 183mg/dL (70-99) 144mg/dL (70-99) 250mg/dL (70-99) Reticulocyte Count (auto) 3.3% (0.5-2.5) Sodium Level 136mmol/L (136-145) Potassium Level 4.5mmol/L (3.5-5.1) Chloride Level 96mmol/L (98-107) Carbon Dioxide Level 34mmol/L (21-32) Anion Gap 6 (6-14) Blood Urea Nitrogen 51mg/dL (7-20) Creatinine 1.5mg/dL (0.6-1.0) Estimated GFR (Cockcroft-Gault) 36.2 Glucose Level 163mg/dL (70-99) Calcium Level 9.0mg/dL (8.5-10.1) Iron Level 58ug/dL (50-170) Total Iron Binding Capacity 357ug/dL (250-450) Iron Saturation 16% (15-34) Ferritin 63ng/mL (8-252) Test 01/20/17 16:25 Glucose (Fingerstick) 136mg/dL (70-99) JOSE BLAKELY MD Jan 20, 2017 19:00
[2017-01-20 19:10] VITALS: BP 98/51
[2017-01-20] MEDS ORDERED: BISACODYL 10 MG SUPP.RECT. PR ONE (19:15)
[2017-01-20] MEDS: LUBIPROSTONE 8 MCG CAPSULE PO SCH (20:07)
[2017-01-20] MEDS: ATORVASTATIN CALCIUM 20 MG TABLET PO SCH (20:30)
[2017-01-20 23:40] VITALS: BP 116/61
--- NOTE | 2017-01-21 02:00 | CONS ---
DATE OF CONSULTATION: PRIMARY PHYSICIAN: JOSE BLAKELY MD REASON FOR CONSULTATION: Chronic renal insufficiency. HISTORY OF PRESENT ILLNESS: The patient is a 56-year-old morbidly obese female who presented to the ER with complaints of shortness of breath. She was felt to have CHF exacerbation as well as COPD exacerbation. She is known to have diastolic dysfunction, pulmonary hypertension, chronic edema, type 2 diabetes, morbid obesity and obstructive sleep apnea, besides underlying diabetes, hypertension, atherosclerotic vascular disease, and CKD stage 3. As a result of this, she claims that she has had significant fluctuation in her fluid status. She sometimes ____ dehydrated and sometimes ____ fluid overloaded. We were asked to see her for obviously for fluid balance as well as to assess for renal dysfunction. Based on CT scan from 11/16/2016, she is noted to have bilateral renal cortical scarring as well as moderate aortoiliac calcific plaquing without evidence of aneurysm. This does suggest that she may have some underlying renal insufficiency as well as hypertensive nephrosclerosis. She is noted to have some amount of proteinuria this visit also. For rest of details, see electronic records. RENETTA HARRIS MD DR: SANDRA/apolinar JOB#: [id number] / [id number]
[2017-01-21 03:15] VITALS: BP 101/49
[2017-01-21 04:16] LABS: PTH INTACT 38 pg/mL (15-65)
[2017-01-21] MEDS: PANTOPRAZOLE 40 MG TABLET.DR. PO SCH (06:43)
[2017-01-21] MEDS: LEVOTHYROXINE 50 MCG TABLET PO SCH (06:43)
[2017-01-21 07:08] LABS: ALBUMIN 2.9 g/dL (3.4-5.0); CALCIUM 8.7 mg/dL (8.5-10.1)
[2017-01-21 07:09] LABS: CREATININE 1.6 mg/dL (0.6-1.0); GFR 33.6; PHOSPHORUS 6.3 mg/dL (2.6-4.7); POTASSIUM 4.5 mmol/L (3.5-5.1)
[2017-01-21] MEDS: IPRATRPIUM/ALBUTEROL 0.5/2.5MG 3 ML NEBU. NEB SCH ×4 (07:22→19:07)
[2017-01-21 07:36] VITALS: BP 128/51
[2017-01-21] MEDS: INSULIN ASPART 300 UNITS/3 ML INSULN.PEN SQ SCH ×6 (08:00→17:56)
[2017-01-21] MEDS: DULoxetine HCL 30 MG CAPSULE.DR PO SCH (08:29)
[2017-01-21] MEDS: ISOSORBIDE MONONITRATE ER 30 MG TAB.ER.24H PO SCH (08:29)
[2017-01-21] MEDS: DOCUSATE SODIUM 100 MG CAPSULE. PO SCH (08:30)
[2017-01-21] MEDS: FENOFIBRATE,MICRONIZED 134 MG CAPSULE PO SCH (08:30)
[2017-01-21] MEDS: METOPROLOL TART IMMED RELEASE 50 MG TABLET. PO SCH (08:30)
[2017-01-21] MEDS: LUBIPROSTONE 8 MCG CAPSULE PO SCH ×2 (08:30→17:56)
[2017-01-21] MEDS: LISINOPRIL 20 MG TABLET PO SCH (08:30)
[2017-01-21] MEDS: DABIGATRAN ETEXILATE 150 MG CAPSULE. PO SCH (08:30)
[2017-01-21] MEDS: ASPIRIN CHEWABLE 81 MG TABLET. PO SCH (08:30)
[2017-01-21] MEDS: PREGABALIN 75 MG CAPSULE PO SCH (08:31)
[2017-01-21] MEDS: BUMETANIDE 1 MG TABLET. PO SCH (08:31)
[2017-01-21] MEDS: amLODIPine BESYLATE 5 MG TABLET PO SCH (08:31)
[2017-01-21] MEDS: INSULIN DETEMIR 300 UNITS/3 ML INSULN.PEN. SQ SCH (08:39)
[2017-01-21 11:54] VITALS: BP 100/55
[2017-01-21 15:00] VITALS: BP 112/63
--- NOTE | 2017-01-21 15:01 | PDOC ---
PROGRESS NOTES Subjective Subjective Awaiting 24 hr urine results to see if she has the renal function to withstand a heart cath, her SOA has improved and she feels like she is at baseline, heart cath may possibly occur Monday depending on results but she would like to go home Objective Objective Vital Signs Date Time Temp Pulse Resp B/P Pulse Ox O2 Delivery O2 Flow Rate FiO2 01/21/17 11:54 97.9 72 100/55 95 Nasal Cannula 2.0 97.9 01/21/17 07:36 20 Intake and Output 01/21/17 07:00 Intake Total 1480 ml Output Total 2150 ml Balance -670 ml Intake Oral 1480 ml Output Urine Total 2150 ml # Bowel Movements 1 Physical Exam Abdomen: Normal bowel sounds, Soft Heart: Regular rate Extremities: No clubbing, No cyanosis General: Alert, Oriented X3, Cooperative HEENT: Atraumatic Lungs: Clear to auscultation Neck: Supple, No JVD Neuro: Normal speech Psych/Mental Status: Mental status NL Skin: No breakdown Assessment Assessment Problems Medical Problems: (1) Acute and chronic respiratory failure ([id number]) Status: Acute (2) Acute on chronic congestive heart failure Status: Acute (3) COPD exacerbation Status: Acute Plan Plan of Care dc home and outpatient heart cath in future depending on 24 hr urine results Comment Review of Relevant I have reviewed the following items jim (where applicable) has been applied. Labs Laboratory Tests Test 01/19/17 17:11 01/19/17 20:42 01/20/17 05:30 01/20/17 07:38 Glucose (Fingerstick) 183mg/dL (70-99) 183mg/dL (70-99) 144mg/dL (70-99) Reticulocyte Count (auto) 3.3% (0.5-2.5) Sodium Level 136mmol/L (136-145) Potassium Level 4.5mmol/L (3.5-5.1) Chloride Level 96mmol/L (98-107) Carbon Dioxide Level 34mmol/L (21-32) Anion Gap 6 (6-14) Blood Urea Nitrogen 51mg/dL (7-20) Creatinine 1.5mg/dL (0.6-1.0) Estimated GFR (Non- 47 (>59) Estimated GFR (Cockcroft-Gault) 36.2 Glucose Level 163mg/dL (70-99) Calcium Level 9.0mg/dL (8.5-10.1) Iron Level 58ug/dL (50-170) Total Iron Binding Capacity 357ug/dL (250-450) Iron Saturation 16% (15-34) Ferritin 63ng/mL (8-252) EGFR 54 (>59) PTH (Intact) Specimen Description Comment (.) Parathyroid Hormone (Intact) 38pg/mL (15-65) Calcium (PTH Intact) 9.3mg/dL (8.7-10.2) Creatinine (PTH Intact) 1.29mg/dL (0.57-1.00) Phosphorus (PTH Intact) 4.7mg/dL (2.5-4.5) Test 01/20/17 11:38 01/20/17 16:25 01/20/17 21:13 01/21/17 05:00 Glucose (Fingerstick) 250mg/dL (70-99) 136mg/dL (70-99) 102mg/dL (70-99) Hemoglobin 11.9g/dL (12.0-15.5) Sodium Level 140mmol/L (136-145) Potassium Level 4.5mmol/L (3.5-5.1) Chloride Level 97mmol/L (98-107) Carbon Dioxide Level 37mmol/L (21-32) Anion Gap 6 (6-14) Blood Urea Nitrogen 60mg/dL (7-20) Creatinine 1.6mg/dL (0.6-1.0) Estimated GFR (Cockcroft-Gault) 33.6 Glucose Level 143mg/dL (70-99) Calcium Level 8.7mg/dL (8.5-10.1) Phosphorus Level 6.3mg/dL (2.6-4.7) Magnesium Level 1.8mg/dL (1.8-2.4) Albumin 2.9g/dL (3.4-5.0) Test 01/21/17 07:40 01/21/17 11:56 01/21/17 14:49 Glucose (Fingerstick) 144mg/dL (70-99) 182mg/dL (70-99) 173mg/dL (70-99) Laboratory Tests Test 01/20/17 16:25 01/20/17 21:13 01/21/17 05:00 01/21/17 07:40 Glucose (Fingerstick) 136mg/dL (70-99) 102mg/dL (70-99) 144mg/dL (70-99) Hemoglobin 11.9g/dL (12.0-15.5) Sodium Level 140mmol/L (136-145) Potassium Level 4.5mmol/L (3.5-5.1) Chloride Level 97mmol/L (98-107) Carbon Dioxide Level 37mmol/L (21-32) Anion Gap 6 (6-14) Blood Urea Nitrogen 60mg/dL (7-20) Creatinine 1.6mg/dL (0.6-1.0) Estimated GFR (Cockcroft-Gault) 33.6 Glucose Level 143mg/dL (70-99) Calcium Level 8.7mg/dL (8.5-10.1) Phosphorus Level 6.3mg/dL (2.6-4.7) Magnesium Level 1.8mg/dL (1.8-2.4) Albumin 2.9g/dL (3.4-5.0) Test 01/21/17 11:56 01/21/17 14:49 Glucose (Fingerstick) 182mg/dL (70-99) 173mg/dL (70-99) Microbiology 01/17/17 Urine Culture - Final, Complete 01/17/17 Urine Culture Result 1 (CANDACE) - Final, Complete 01/17/17 Antimicrobic Susceptibility - Final, Complete Medications Current Medications Ipratropium [place] (Atrovent) 0.5 mg 1X ONCE NEB ; Start 01/17/17 at 21:45; Stop 01/17/17 at 22:00; Status DC Methylprednisolone Sodium Succinate (Solu-Medrol 125mg Vial) 125 mg 1X ONCE IV Last administered on 01/17/17 22:06; Start 01/17/17 at 21:45; Stop 01/17/17 at 21:46; Status DC Fentanyl Citrate (Fentanyl 2ml Vial) 50 mcg PRN Q15MIN PRN IV PAIN GREATER THAN 3/10 Last administered on 01/17/17 22:44; Start 01/17/17 at 21:45; Stop at 08:20; Status DC Albuterol/ Ipratropium (Duoneb) 3 ml STK-MED ONCE .ROUTE ; Start 01/17/17 at 21: 44; Stop 01/17/17 at 21:45; Status DC Albuterol Sulfate (Ventolin Neb Soln) 2.5 mg STK-MED ONCE .ROUTE ; Start at 21:44; Stop 01/17/17 at 21:45; Status DC Albuterol/ Ipratropium (Duoneb) 3 ml 1X ONCE NEB Last administered on 22:03; Start 01/17/17 at 22:00; Stop 01/17/17 at 22:01; Status DC Albuterol Sulfate (Ventolin Neb Soln) 10 mg 1X ONCE CONT NEB Last administered on 01/17/17 21:50; Start 01/17/17 at 22:15; Stop 01/17/17 at 22:16 ; Status DC Furosemide (Lasix) 40 mg 1X ONCE IVP Last administered on 01/17/17 22:45; Start 01/17/17 at 22:30; Stop 01/17/17 at 22:31; Status DC Levofloxacin/ Dextrose 1 each 1 each PRN DAILY PRN MC SEE COMMENTS; Start 01/17 at 22:30; Stop 01/18/17 at 13:13; Status DC Levofloxacin/ Dextrose (LEVAQUIN 500mg PREMIX) 100 ml @ 100 mls/hr 1X ONCE IV Last administered on 01/18/17 00:38; Start 01/17/17 at 23:00; Stop 01/17/17 at 23:59; Status DC Enoxaparin Sodium (Lovenox 100mg Syringe) 100 mg 1X ONCE SQ Last administered on 01/18/17 02:14; Start 01/17/17 at 23:30; Stop 01/17/17 at 23:31; Status DC Ondansetron HCl (Zofran) 4 mg PRN Q8HRS PRN IV NAUSEA/VOMITING; Start 01/17/17 at 23:30; Stop 01/18/17 at 23:29; Status DC Fentanyl Citrate (Fentanyl 2ml Vial) 50 mcg PRN Q2HR PRN IV PAIN; Start at 23:30; Stop 01/18/17 at 23:29; Status DC Acetaminophen (Tylenol) 650 mg PRN Q4HRS PRN PO FEVER; Start 01/17/17 at 23:30 ; Stop 01/18/17 at 23:29; Status DC Nitroglycerin (Nitrostat) 0.4 mg PRN Q5MIN PRN SL CHEST PAIN; Start 01/17/17 at 23:30; Stop 01/18/17 at 15:03; Status DC Albuterol/ Ipratropium 3 ml 3 ml RTQID NEB Last administered on 01/18/17 11:45 ; Start 01/18/17 at 08:00; Stop 01/18/17 at 15:03; Status DC Levofloxacin/ Dextrose 100 ml @ 100 mls/hr Q24H IV ; Start 01/18/17 at 21:00; Stop 01/18/17 at 21:00; Status DC Sodium Chloride 1,000 ml @ 40 mls/hr Q24H IV Last administered on 01/19/17 01 :58; Start 01/18/17 at 00:45; Stop 01/19/17 at 07:43; Status DC Nicardipine HCl/ Sodium Chloride (Cardene/Iv Sodium Chloride 0.9% 250ml) 270 ml @ 0 mls/hr CONT PRN IV SEE I/O RECORD Last administered on 01/18/17 01:41; Start 01/18/17 at 00:45; Stop 01/19/17 at 07:43; Status DC Tizanidine HCl (Zanaflex) 4 mg PRN Q8HRS PRN PO MUSCLE SPASMS Last administered on 01/18/17 02:23; Start 01/18/17 at 01:45; Stop 01/18/17 at 13:20 ; Status DC Tizanidine HCl (Zanaflex) 2 mg PRN Q8HRS PRN PO MUSCLE SPASMS; Start 01/18/17 at 01:45; Status UNV Insulin Aspart (Novolog) 0-9 UNITS TIDWMEALS SQ Last administered on 01/21/17 14:53; Start 01/18/17 at 08:00 Dextrose (Dextrose 50%-Water Syringe) 12.5 gm PRN Q15MIN PRN IV SEE COMMENTS; Start 01/18/17 at 07:45 Aspirin (Children'S Aspirin) 81 mg DAILY PO Last administered on 01/21/17 08: 30; Start 01/18/17 at 09:00 Atorvastatin Calcium (Lipitor) 20 mg QHS PO Last administered on 01/20/17 20: 30; Start 01/18/17 at 21:00 Dabigatran (Pradaxa) 150 mg BID PO Last administered on 01/21/17 08:30; Start 01/18/17 at 09:00 Fenofibrate (Lofibra) 134 mg DAILY PO Last administered on 01/21/17 08:30; Start 01/18/17 at 09:00 Acetaminophen/ Hydrocodone Bitart (Lortab 10/325) 1 tab PRN Q6HRS PRN PO PAIN Last administered on 01/19/17 06:04; Start 01/18/17 at 07:45; Stop 01/19/17 at 07:43; Status DC Isosorbide Mononitrate (Imdur) 60 mg DAILY PO Last administered on 01/21/17 08 :29; Start 01/18/17 at 09:00 Levothyroxine Sodium (Synthroid) 50 mcg DAILY07 PO Last administered on 06:43; Start 01/18/17 at 08:00 Nitroglycerin (Nitrostat) 0.4 mg PRN Q5MIN PRN SL CP RATING > 1/10; Start 01/18 at 07:45 Duloxetine HCl (Cymbalta) 60 mg BID PO Last administered on 01/21/17 08:29; Start 01/18/17 at 09:00 Pantoprazole Sodium (Protonix) 40 mg DAILYAC PO Last administered on 01/21/17 06:43; Start 01/18/17 at 08:30 Insulin Detemir (Levemir) 35 units BID SQ Last administered on 01/18/17 18:06 ; Start 01/18/17 at 21:00; Stop 01/19/17 at 07:43; Status DC Insulin Aspart (Novolog) 30 units TIDAC SQ Last administered on 01/18/17 16:59 ; Start 01/18/17 at 11:30; Stop 01/19/17 at 07:43; Status DC Pregabalin (Lyrica) 150 mg BID PO Last administered on 01/21/17 08:31; Start 01/18/17 at 09:00 Tizanidine HCl (Zanaflex) 4 mg PRN Q8HRS PRN PO MUSCLE SPASMS Last administered on 01/19/17 00:16; Start 01/18/17 at 08:15; Stop 01/19/17 at 07:43 ; Status DC Metolazone (Zaroxolyn) 2.5 mg MoWeFr PO Last administered on 01/20/17 10:01; Start 01/18/17 at 09:00 Albuterol/ Ipratropium (Duoneb) 3 ml QID NEB Last administered on 01/21/17 11: 24; Start 01/18/17 at 09:00 Insulin Aspart (Novolog) 30 units TIDAC SQ ; Start 01/18/17 at 11:30; Status UNV Insulin Aspart (Novolog) 30 units 1X ONCE SQ Last administered on 01/18/17 08 :55; Start 01/18/17 at 10:30; Stop 01/18/17 at 10:31; Status DC Lisinopril (Prinivil) 20 mg BID PO Last administered on 01/21/17 08:30; Start 01/18/17 at 13:00 Metoprolol Tartrate (Lopressor) 50 mg BID PO Last administered on 01/21/17 08: 30; Start 01/18/17 at 13:00 Amlodipine Besylate (Norvasc) 5 mg DAILY PO Last administered on 01/18/17 13: 27; Start 01/18/17 at 13:00; Stop 01/18/17 at 13:34; Status DC Lisinopril (Prinivil) 20 mg BID PO ; Start 01/18/17 at 21:00; Stop 01/18/17 at 21:00; Status DC Metoprolol Succinate (Toprol Xl) 50 mg BID PO ; Start 01/18/17 at 21:00; Stop at 21:00; Status DC Amlodipine Besylate (Norvasc) 5 mg BID PO Last administered on 01/21/17 08:31 ; Start 01/18/17 at 21:00 Bumetanide (Bumex) 2 mg DAILY PO Last administered on 01/21/17 08:31; Start at 14:00 Info (Anti-Coagulation Monitoring By Pharmacy) 1 each PRN DAILY PRN MC SEE COMMENTS Last administered on 01/20/17 15:34; Start 01/18/17 at 13:45 Docusate Sodium (Colace) 100 mg BID PO Last administered on 01/21/17 08:30; Start 01/18/17 at 22:00 Acetaminophen/ Hydrocodone Bitart (Lortab 10/325) 1 tab PRN Q4HRS PRN PO PAIN Last administered on 01/20/17 20:31; Start 01/19/17 at 07:45 Insulin Aspart (Novolog) 35 units TIDAC SQ Last administered on 01/21/17 08:39 ; Start 01/19/17 at 08:00 Insulin Detemir (Levemir) 40 units BID SQ Last administered on 01/21/17 08:39 ; Start 01/19/17 at 09:00 Tizanidine HCl (Zanaflex) 4 mg PRN TID PRN PO MUSCLE SPASMS Last administered on 01/20/17 20:31; Start 01/19/17 at 08:15 Acetaminophen (Tylenol) 650 mg PRN Q6HRS PRN PO MILD PAIN / TEMP; Start at 07:45 Magnesium Hydroxide (Milk Of Magnesia) 2,400 mg PRN DAILY PRN PO CONSTIPATION Last administered on 01/19/17 19:29; Start 01/19/17 at 08:15 Magnesium Hydroxide (Milk Of Magnesia) 2,400 mg 1X ONCE PO Last administered on 01/19/17 08:28; Start 01/19/17 at 08:15; Stop 01/19/17 at 08:16; Status DC Bisacodyl 10 mg 10 mg PRN DAILY PRN [place] CONSTIPATION Last administered on 23:01; Start 01/19/17 at 08:15 Magnesium Sulfate/ Dextrose (Magnesium Sulfate PREMIX 2GM) 50 ml @ 25 mls/hr PRN DAILY PRN IV for Mag < 1.7 on am labs; Start 01/20/17 at 12:15 Bisacodyl (Dulcolax Supp) 10 mg 1X ONCE MN Last administered on 01/20/17 20: 07; Start 01/20/17 at 19:15; Stop 01/20/17 at 19:16; Status DC Lubiprostone (Amitiza) 8 mcg BIDWMEALS PO Last administered on 01/21/17t 08:30 ; Start 01/20/17 at 19:15 Active Scripts Active Coreg (Carvedilol) 3.125 Mg Tablet 1 Tab PO BID Humalog (Insulin Lispro) 100 Unit/1 Ml Insuln.pen 30 Unit SQ TIDAC Duoneb 0.5-3(2.5) Mg/3 Ml (Albuterol/Ipratropium) 3 Ml Ampul.neb 3 Ml NEB PRN QID Isosorbide Mononitrate Er (Isosorbide Mononitrate) 60 Mg Tab.er.24h 1 Tab PO DAILY [Metronidazole] 500 MG Tablet 500 Mg PO Q8HRS [Metolazone] 2.5 MG Tablet 2.5 Mg PO 3X/WEEK take on Mon, Wed, Fri AM Lantus (Insulin Glargine,Hum.rec.anlog) 100 Unit/1 Ml Vial 35 Unit SQ BID Nitrostat (Nitroglycerin) 0.4 Mg Tab.subl 0.4 Mg SL PRN Q5MIN PRN 30 Days Reported Lyrica (Pregabalin) 150 Mg Capsule 1 Cap PO BID Cymbalta (Duloxetine Hcl) 60 Mg Capsule.dr 1 Cap PO BID Atorvastatin Calcium 20 Mg Tablet 1 Tab PO DAILY Nexium Capsule (Esomeprazole Magnesium) 40 Mg Capsule.dr 1 Cap PO DAILY Aspirin 81 Mg Tab.chew 1 Tab PO DAILY Pradaxa (Dabigatran Etexilate Mesylate) 150 Mg Capsule 1 Cap PO BID Levothyroxine Sodium 50 Mcg Tablet 1 Tab PO DAILY Fenofibrate (Fenofibrate,Micronized) 134 Mg Capsule 1 Cap PO DAILY Zanaflex (Tizanidine Hcl) 4 Mg Capsule 4 Mg PO PRN Q8HRS PRN as needed for muscle cramps no more than every 8hrs Hydrocodone-Apap 10-325 (Hydrocodone Bit/Acetaminophen) 1 Each Tablet 1 Tab PO PRN Q6HRS PRN as needed for pain every 6 hours Vitals/I & O Vital Sign - Last 24 Hours 01/20/17 01/20/17 01/20/17 01/20/17 16:01 19:10 19:39 20:00 Temp 97.6 97.6 Pulse 71 Resp 17 B/P 98/51 Pulse Ox 93 98 92 O2 Delivery Room Air Room Air Room Air Nasal Cannula O2 Flow Rate 2.0 01/20/17 01/20/17 01/20/17 01/20/17 20:31 20:34 20:34 20:35 Pulse 68 68 68 Resp 20 B/P 97/55 97/55 97/55 Pulse Ox 92 O2 Delivery Nasal Cannula O2 Flow Rate 2.0 01/20/17 01/20/17 01/21/17 01/21/17 21:30 23:40 03:15 07:22 Temp 97.8 97.9 97.8 97.9 Pulse 67 69 Resp 18 18 18 B/P 116/61 101/49 Pulse Ox 92 96 95 98 O2 Delivery Nasal Cannula Nasal Cannula Nasal Cannula Nasal Cannula O2 Flow Rate 2.0 2.0 2.0 2.0 01/21/17 01/21/17 01/21/17 01/21/17 07:36 07:55 08:29 08:30 Temp 97.9 97.9 Pulse 72 72 72 Resp 20 B/P 128/51 128/51 128/51 Pulse Ox 95 O2 Delivery Nasal Cannula Nasal Cannula O2 Flow Rate 2.0 01/21/17 01/21/17 01/21/17 01/21/17 08:30 08:31 11:24 11:54 Temp 97.9 97.9 Pulse 72 72 72 B/P 128/51 128/51 100/55 Pulse Ox 95 95 O2 Delivery Room Air Nasal Cannula O2 Flow Rate 2.0 Intake and Output 01/20/17 01/20/17 01/21/17 15:00 23:00 07:00 Intake Total 700 ml 780 ml Output Total 1250 ml 900 ml Balance -550 ml -120 ml NADIR ESPINOZA MD Jan 21, 2017 15:01
[2017-01-21] MEDS ORDERED: LEVOFLOXACIN 250 MG TABLET. PO SCH (15:15)
--- NOTE | 2017-01-21 15:43 | PDOC ---
PROGRESS NOTES Subjective Subjective The patient has no new complaints. The urine collection was finished. Results are pending. Objective Objective Vital Signs Date Time Temp Pulse Resp B/P Pulse Ox O2 Delivery O2 Flow Rate FiO2 01/21/17 15:12 93 Room Air 01/21/17 15:00 97.7 93 20 112/63 2.0 97.7 Intake and Output 01/21/17 07:00 Intake Total 1480 ml Output Total 2150 ml Balance -670 ml Intake Oral 1480 ml Output Urine Total 2150 ml # Bowel Movements 1 Physical Exam Physical Exam No significant changes in cardiac exam Assessment Assessment Patient undergoing a renal workup. We are now waiting for the results of the 24-hour urine collection. From a cardiac standpoint I think that she probably will need to have a heart Catheterization but at this point she may be discharged and once she is cleared by the field education director I can bring her back as an outpatient to do the test. I've discussed this with the patient and her and they agree with this plan. Problems Medical Problems: (1) Acute and chronic respiratory failure ([id number]) Status: Acute (2) Acute on chronic congestive heart failure Status: Acute (3) COPD exacerbation Status: Acute Comment Review of Relevant I have reviewed the following items jim (where applicable) has been applied. Labs Laboratory Tests Test 01/19/17 17:11 01/19/17 20:42 01/20/17 05:30 01/20/17 07:38 Glucose (Fingerstick) 183mg/dL (70-99) 183mg/dL (70-99) 144mg/dL (70-99) Reticulocyte Count (auto) 3.3% (0.5-2.5) Sodium Level 136mmol/L (136-145) Potassium Level 4.5mmol/L (3.5-5.1) Chloride Level 96mmol/L (98-107) Carbon Dioxide Level 34mmol/L (21-32) Anion Gap 6 (6-14) Blood Urea Nitrogen 51mg/dL (7-20) Creatinine 1.5mg/dL (0.6-1.0) Estimated GFR (Non- 47 (>59) Estimated GFR (Cockcroft-Gault) 36.2 Glucose Level 163mg/dL (70-99) Calcium Level 9.0mg/dL (8.5-10.1) Iron Level 58ug/dL (50-170) Total Iron Binding Capacity 357ug/dL (250-450) Iron Saturation 16% (15-34) Ferritin 63ng/mL (8-252) EGFR 54 (>59) PTH (Intact) Specimen Description Comment (.) Parathyroid Hormone (Intact) 38pg/mL (15-65) Calcium (PTH Intact) 9.3mg/dL (8.7-10.2) Creatinine (PTH Intact) 1.29mg/dL (0.57-1.00) Phosphorus (PTH Intact) 4.7mg/dL (2.5-4.5) Test 01/20/17 11:38 01/20/17 16:25 01/20/17 21:13 01/21/17 05:00 Glucose (Fingerstick) 250mg/dL (70-99) 136mg/dL (70-99) 102mg/dL (70-99) Hemoglobin 11.9g/dL (12.0-15.5) Sodium Level 140mmol/L (136-145) Potassium Level 4.5mmol/L (3.5-5.1) Chloride Level 97mmol/L (98-107) Carbon Dioxide Level 37mmol/L (21-32) Anion Gap 6 (6-14) Blood Urea Nitrogen 60mg/dL (7-20) Creatinine 1.6mg/dL (0.6-1.0) Estimated GFR (Cockcroft-Gault) 33.6 Glucose Level 143mg/dL (70-99) Calcium Level 8.7mg/dL (8.5-10.1) Phosphorus Level 6.3mg/dL (2.6-4.7) Magnesium Level 1.8mg/dL (1.8-2.4) Albumin 2.9g/dL (3.4-5.0) Test 01/21/17 07:40 01/21/17 11:56 01/21/17 14:49 Glucose (Fingerstick) 144mg/dL (70-99) 182mg/dL (70-99) 173mg/dL (70-99) Laboratory Tests Test 01/20/17 16:25 01/20/17 21:13 01/21/17 05:00 01/21/17 07:40 Glucose (Fingerstick) 136mg/dL (70-99) 102mg/dL (70-99) 144mg/dL (70-99) Hemoglobin 11.9g/dL (12.0-15.5) Sodium Level 140mmol/L (136-145) Potassium Level 4.5mmol/L (3.5-5.1) Chloride Level 97mmol/L (98-107) Carbon Dioxide Level 37mmol/L (21-32) Anion Gap 6 (6-14) Blood Urea Nitrogen 60mg/dL (7-20) Creatinine 1.6mg/dL (0.6-1.0) Estimated GFR (Cockcroft-Gault) 33.6 Glucose Level 143mg/dL (70-99) Calcium Level 8.7mg/dL (8.5-10.1) Phosphorus Level 6.3mg/dL (2.6-4.7) Magnesium Level 1.8mg/dL (1.8-2.4) Albumin 2.9g/dL (3.4-5.0) Test 01/21/17 11:56 01/21/17 14:49 Glucose (Fingerstick) 182mg/dL (70-99) 173mg/dL (70-99) Microbiology 01/17/17 Urine Culture - Final, Complete 01/17/17 Urine Culture Result 1 (CANDACE) - Final, Complete 01/17/17 Antimicrobic Susceptibility - Final, Complete Medications Current Medications Ipratropium Embudo (Atrovent) 0.5 mg 1X ONCE NEB ; Start 01/17/17 at 21:45; Stop 01/17/17 at 22:00; Status DC Methylprednisolone Sodium Succinate (Solu-Medrol 125mg Vial) 125 mg 1X ONCE IV Last administered on 01/17/17 22:06; Start 01/17/17 at 21:45; Stop 01/17/17 at 21:46; Status DC Fentanyl Citrate (Fentanyl 2ml Vial) 50 mcg PRN Q15MIN PRN IV PAIN GREATER THAN 3/10 Last administered on 01/17/17 22:44; Start 01/17/17 at 21:45; Stop at 08:20; Status DC Albuterol/ Ipratropium (Duoneb) 3 ml STK-MED ONCE .ROUTE ; Start 01/17/17 at 21: 44; Stop 01/17/17 at 21:45; Status DC Albuterol Sulfate (Ventolin Neb Soln) 2.5 mg STK-MED ONCE .ROUTE ; Start at 21:44; Stop 01/17/17 at 21:45; Status DC Albuterol/ Ipratropium (Duoneb) 3 ml 1X ONCE NEB Last administered on 22:03; Start 01/17/17 at 22:00; Stop 01/17/17 at 22:01; Status DC Albuterol Sulfate (Ventolin Neb Soln) 10 mg 1X ONCE CONT NEB Last administered on 01/17/17 21:50; Start 01/17/17 at 22:15; Stop 01/17/17 at 22:16 ; Status DC Furosemide (Lasix) 40 mg 1X ONCE IVP Last administered on 01/17/17 22:45; Start 01/17/17 at 22:30; Stop 01/17/17 at 22:31; Status DC Levofloxacin/ Dextrose 1 each 1 each PRN DAILY PRN MC SEE COMMENTS; Start 01/17 at 22:30; Stop 01/18/17 at 13:13; Status DC Levofloxacin/ Dextrose (LEVAQUIN 500mg PREMIX) 100 ml @ 100 mls/hr 1X ONCE IV Last administered on 01/18/17 00:38; Start 01/17/17 at 23:00; Stop 01/17/17 at 23:59; Status DC Enoxaparin Sodium (Lovenox 100mg Syringe) 100 mg 1X ONCE SQ Last administered on 01/18/17 02:14; Start 01/17/17 at 23:30; Stop 01/17/17 at 23:31; Status DC Ondansetron HCl (Zofran) 4 mg PRN Q8HRS PRN IV NAUSEA/VOMITING; Start 01/17/17 at 23:30; Stop 01/18/17 at 23:29; Status DC Fentanyl Citrate (Fentanyl 2ml Vial) 50 mcg PRN Q2HR PRN IV PAIN; Start at 23:30; Stop 01/18/17 at 23:29; Status DC Acetaminophen (Tylenol) 650 mg PRN Q4HRS PRN PO FEVER; Start 01/17/17 at 23:30 ; Stop 01/18/17 at 23:29; Status DC Nitroglycerin (Nitrostat) 0.4 mg PRN Q5MIN PRN SL CHEST PAIN; Start 01/17/17 at 23:30; Stop 01/18/17 at 15:03; Status DC Albuterol/ Ipratropium 3 ml 3 ml RTQID NEB Last administered on 01/18/17 11:45 ; Start 01/18/17 at 08:00; Stop 01/18/17 at 15:03; Status DC Levofloxacin/ Dextrose 100 ml @ 100 mls/hr Q24H IV ; Start 01/18/17 at 21:00; Stop 01/18/17 at 21:00; Status DC Sodium Chloride 1,000 ml @ 40 mls/hr Q24H IV Last administered on 01/19/17 01 :58; Start 01/18/17 at 00:45; Stop 01/19/17 at 07:43; Status DC Nicardipine HCl/ Sodium Chloride (Cardene/Iv Sodium Chloride 0.9% 250ml) 270 ml @ 0 mls/hr CONT PRN IV SEE I/O RECORD Last administered on 01/18/17 01:41; Start 01/18/17 at 00:45; Stop 01/19/17 at 07:43; Status DC Tizanidine HCl (Zanaflex) 4 mg PRN Q8HRS PRN PO MUSCLE SPASMS Last administered on 01/18/17 02:23; Start 01/18/17 at 01:45; Stop 01/18/17 at 13:20 ; Status DC Tizanidine HCl (Zanaflex) 2 mg PRN Q8HRS PRN PO MUSCLE SPASMS; Start 01/18/17 at 01:45; Status UNV Insulin Aspart (Novolog) 0-9 UNITS TIDWMEALS SQ Last administered on 01/21/17 14:53; Start 01/18/17 at 08:00 Dextrose (Dextrose 50%-Water Syringe) 12.5 gm PRN Q15MIN PRN IV SEE COMMENTS; Start 01/18/17 at 07:45 Aspirin (Children'S Aspirin) 81 mg DAILY PO Last administered on 01/21/17 08: 30; Start 01/18/17 at 09:00 Atorvastatin Calcium (Lipitor) 20 mg QHS PO Last administered on 01/20/17 20: 30; Start 01/18/17 at 21:00 Dabigatran (Pradaxa) 150 mg BID PO Last administered on 01/21/17 08:30; Start 01/18/17 at 09:00 Fenofibrate (Lofibra) 134 mg DAILY PO Last administered on 01/21/17 08:30; Start 01/18/17 at 09:00 Acetaminophen/ Hydrocodone Bitart (Lortab 10/325) 1 tab PRN Q6HRS PRN PO PAIN Last administered on 01/19/17 06:04; Start 01/18/17 at 07:45; Stop 01/19/17 at 07:43; Status DC Isosorbide Mononitrate (Imdur) 60 mg DAILY PO Last administered on 01/21/17 08 :29; Start 01/18/17 at 09:00 Levothyroxine Sodium (Synthroid) 50 mcg DAILY07 PO Last administered on 06:43; Start 01/18/17 at 08:00 Nitroglycerin (Nitrostat) 0.4 mg PRN Q5MIN PRN SL CP RATING > 1/10; Start 01/18 at 07:45 Duloxetine HCl (Cymbalta) 60 mg BID PO Last administered on 01/21/17 08:29; Start 01/18/17 at 09:00 Pantoprazole Sodium (Protonix) 40 mg DAILYAC PO Last administered on 01/21/17 06:43; Start 01/18/17 at 08:30 Insulin Detemir (Levemir) 35 units BID SQ Last administered on 01/18/17 18:06 ; Start 01/18/17 at 21:00; Stop 01/19/17 at 07:43; Status DC Insulin Aspart (Novolog) 30 units TIDAC SQ Last administered on 01/18/17 16:59 ; Start 01/18/17 at 11:30; Stop 01/19/17 at 07:43; Status DC Pregabalin (Lyrica) 150 mg BID PO Last administered on 01/21/17 08:31; Start 01/18/17 at 09:00 Tizanidine HCl (Zanaflex) 4 mg PRN Q8HRS PRN PO MUSCLE SPASMS Last administered on 01/19/17 00:16; Start 01/18/17 at 08:15; Stop 01/19/17 at 07:43 ; Status DC Metolazone (Zaroxolyn) 2.5 mg MoWeFr PO Last administered on 01/20/17 10:01; Start 01/18/17 at 09:00 Albuterol/ Ipratropium (Duoneb) 3 ml QID NEB Last administered on 01/21/17 15: 12; Start 01/18/17 at 09:00 Insulin Aspart (Novolog) 30 units TIDAC SQ ; Start 01/18/17 at 11:30; Status UNV Insulin Aspart (Novolog) 30 units 1X ONCE SQ Last administered on 01/18/17 08 :55; Start 01/18/17 at 10:30; Stop 01/18/17 at 10:31; Status DC Lisinopril (Prinivil) 20 mg BID PO Last administered on 01/21/17 08:30; Start 01/18/17 at 13:00 Metoprolol Tartrate (Lopressor) 50 mg BID PO Last administered on 01/21/17 08: 30; Start 01/18/17 at 13:00 Amlodipine Besylate (Norvasc) 5 mg DAILY PO Last administered on 01/18/17 13: 27; Start 01/18/17 at 13:00; Stop 01/18/17 at 13:34; Status DC Lisinopril (Prinivil) 20 mg BID PO ; Start 01/18/17 at 21:00; Stop 01/18/17 at 21:00; Status DC Metoprolol Succinate (Toprol Xl) 50 mg BID PO ; Start 01/18/17 at 21:00; Stop at 21:00; Status DC Amlodipine Besylate (Norvasc) 5 mg BID PO Last administered on 01/21/17 08:31 ; Start 01/18/17 at 21:00 Bumetanide (Bumex) 2 mg DAILY PO Last administered on 01/21/17 08:31; Start at 14:00 Info (Anti-Coagulation Monitoring By Pharmacy) 1 each PRN DAILY PRN MC SEE COMMENTS Last administered on 01/20/17 15:34; Start 01/18/17 at 13:45 Docusate Sodium (Colace) 100 mg BID PO Last administered on 01/21/17 08:30; Start 01/18/17 at 22:00 Acetaminophen/ Hydrocodone Bitart (Lortab 10/325) 1 tab PRN Q4HRS PRN PO PAIN Last administered on 01/20/17 20:31; Start 01/19/17 at 07:45 Insulin Aspart (Novolog) 35 units TIDAC SQ Last administered on 01/21/17 08:39 ; Start 01/19/17 at 08:00 Insulin Detemir (Levemir) 40 units BID SQ Last administered on 01/21/17 08:39 ; Start 01/19/17 at 09:00 Tizanidine HCl (Zanaflex) 4 mg PRN TID PRN PO MUSCLE SPASMS Last administered on 01/20/17 20:31; Start 01/19/17 at 08:15 Acetaminophen (Tylenol) 650 mg PRN Q6HRS PRN PO MILD PAIN / TEMP; Start at 07:45 Magnesium Hydroxide (Milk Of Magnesia) 2,400 mg PRN DAILY PRN PO CONSTIPATION Last administered on 01/19/17 19:29; Start 01/19/17 at 08:15 Magnesium Hydroxide (Milk Of Magnesia) 2,400 mg 1X ONCE PO Last administered on 01/19/17 08:28; Start 01/19/17 at 08:15; Stop 01/19/17 at 08:16; Status DC Bisacodyl 10 mg 10 mg PRN DAILY PRN NC CONSTIPATION Last administered on 23:01; Start 01/19/17 at 08:15 Magnesium Sulfate/ Dextrose (Magnesium Sulfate PREMIX 2GM) 50 ml @ 25 mls/hr PRN DAILY PRN IV for Mag < 1.7 on am labs; Start 01/20/17 at 12:15 Bisacodyl (Dulcolax Supp) 10 mg 1X ONCE NC Last administered on 01/20/17 20: 07; Start 01/20/17 at 19:15; Stop 01/20/17 at 19:16; Status DC Lubiprostone (Amitiza) 8 mcg BIDWMEALS PO Last administered on 01/21/17 08:30 ; Start 01/20/17 at 19:15 Levofloxacin (Levaquin) 250 mg DAILY06 PO Last administered on 01/21/17t 15:30 ; Start 01/21/17 at 15:15; Stop 01/25/17 at 15:14 Active Scripts Active Coreg (Carvedilol) 3.125 Mg Tablet 1 Tab PO BID Humalog (Insulin Lispro) 100 Unit/1 Ml Insuln.pen 30 Unit SQ TIDAC Duoneb 0.5-3(2.5) Mg/3 Ml (Albuterol/Ipratropium) 3 Ml Ampul.neb 3 Ml NEB PRN QID Isosorbide Mononitrate Er (Isosorbide Mononitrate) 60 Mg Tab.er.24h 1 Tab PO DAILY [Metronidazole] 500 MG Tablet 500 Mg PO Q8HRS [Metolazone] 2.5 MG Tablet 2.5 Mg PO 3X/WEEK take on Mon, Wed, Fri AM Lantus (Insulin Glargine,Hum.rec.anlog) 100 Unit/1 Ml Vial 35 Unit SQ BID Nitrostat (Nitroglycerin) 0.4 Mg Tab.subl 0.4 Mg SL PRN Q5MIN PRN 30 Days Reported Lyrica (Pregabalin) 150 Mg Capsule 1 Cap PO BID Cymbalta (Duloxetine Hcl) 60 Mg Capsule.dr 1 Cap PO BID Atorvastatin Calcium 20 Mg Tablet 1 Tab PO DAILY Nexium Capsule (Esomeprazole Magnesium) 40 Mg Capsule.dr 1 Cap PO DAILY Aspirin 81 Mg Tab.chew 1 Tab PO DAILY Pradaxa (Dabigatran Etexilate Mesylate) 150 Mg Capsule 1 Cap PO BID Levothyroxine Sodium 50 Mcg Tablet 1 Tab PO DAILY Fenofibrate (Fenofibrate,Micronized) 134 Mg Capsule 1 Cap PO DAILY Zanaflex (Tizanidine Hcl) 4 Mg Capsule 4 Mg PO PRN Q8HRS PRN as needed for muscle cramps no more than every 8hrs Hydrocodone-Apap 10-325 (Hydrocodone Bit/Acetaminophen) 1 Each Tablet 1 Tab PO PRN Q6HRS PRN as needed for pain every 6 hours Vitals/I & O Vital Sign - Last 24 Hours 01/20/17 01/20/17 01/20/17 01/20/17 16:01 19:10 19:39 20:00 Temp 97.6 97.6 Pulse 71 Resp 17 B/P 98/51 Pulse Ox 93 98 92 O2 Delivery Room Air Room Air Room Air Nasal Cannula O2 Flow Rate 2.0 01/20/17 01/20/17 01/20/17 01/20/17 20:31 20:34 20:34 20:35 Pulse 68 68 68 Resp 20 B/P 97/55 97/55 97/55 Pulse Ox 92 O2 Delivery Nasal Cannula O2 Flow Rate 2.0 01/20/17 01/20/17 01/21/17 01/21/17 21:30 23:40 03:15 07:22 Temp 97.8 97.9 97.8 97.9 Pulse 67 69 Resp 18 18 18 B/P 116/61 101/49 Pulse Ox 92 96 95 98 O2 Delivery Nasal Cannula Nasal Cannula Nasal Cannula Nasal Cannula O2 Flow Rate 2.0 2.0 2.0 2.0 01/21/17 01/21/17 01/21/17 01/21/17 07:36 07:55 08:29 08:30 Temp 97.9 97.9 Pulse 72 72 72 Resp 20 B/P 128/51 128/51 128/51 Pulse Ox 95 O2 Delivery Nasal Cannula Nasal Cannula O2 Flow Rate 2.0 01/21/17 01/21/17 01/21/17 01/21/17 08:30 08:31 11:24 11:54 Temp 97.9 97.9 Pulse 72 72 72 B/P 128/51 128/51 100/55 Pulse Ox 95 95 O2 Delivery Room Air Nasal Cannula O2 Flow Rate 2.0 01/21/17 01/21/17 15:00 15:12 Temp 97.7 97.7 Pulse 93 Resp 20 B/P 112/63 Pulse Ox 95 93 O2 Delivery Nasal Cannula Room Air O2 Flow Rate 2.0 Intake and Output 01/20/17 01/20/17 01/21/17 15:00 23:00 07:00 Intake Total 700 ml 780 ml Output Total 1250 ml 900 ml Balance -550 ml -120 ml JON WEAVER MD Jan 21, 2017 15:43
[2017-01-21] MEDS: ANTI-COAG MONITOR BY PHARMACY. MC PRN (16:44)
--- NOTE | 2017-01-21 17:39 | PDOC ---
Provider Note Provider Note RENAL F/U : KIERSTEN S : Doing better. No new issues reported. O : VSS Afebrile. Neck : Supple Lungs : Non labored. Few rhonchi. CVS : RRR Abd : Benign appearing. No major distention. Ext: No edema. Neuro : Intact Labs and meds reviewed. A/P : ARF : labs stable. HTN w CKD. CKD : Stage III/IV. EDEMA OK to DC f/u with Dr. Kaleb Burch M.D. MANA BURCH MD Jan 21, 2017 17:39
[2017-01-21] MEDS ORDERED: INSU200I SQ (18:27)
[2017-01-21] MEDS ORDERED: AMLO5TAB2 PO (18:27)
[2017-01-21] MEDS ORDERED: LUBI8CAP3 PO (18:27)
[2017-01-21] MEDS ORDERED: LISI-334 PO (18:27)
[2017-01-21] MEDS ORDERED: METO50TA2 PO (18:27)
[2017-01-21] MEDS ORDERED: LEVO250T7 PO (18:27)
[2017-01-21] MEDS ORDERED: INSU100I13 SQ (18:27)
[2017-01-21] MEDS ORDERED: BUME1TAB PO (18:27)
--- NOTE | 2017-01-21 18:40 | PDOC3 ---
Discharge Summary Visit Information Date of Admission: Jan 17, 2017 Date of Discharge: Jan 21, 2017 Final Diagnosis Problems Medical Problems: (1) Acute and chronic respiratory failure ([id number]) Status: Acute (2) Acute on chronic congestive heart failure Status: Acute (3) COPD exacerbation Status: Acute Brief Hospital Course Allergies Allergies Coded Allergies Type Severity Reaction Last Updated Verified No Known Drug Allergies 12/23/16 No Vital Signs Vital Signs Date Time Temp Pulse Resp B/P Pulse Ox O2 Delivery O2 Flow Rate FiO2 01/21/17 15:12 93 Room Air 01/21/17 15:00 97.7 93 20 112/63 2.0 97.7 Lab Results Laboratory Tests Test 01/19/17 20:42 01/20/17 05:30 01/20/17 07:38 01/20/17 11:38 Glucose (Fingerstick) 183mg/dL (70-99) 144mg/dL (70-99) 250mg/dL (70-99) Reticulocyte Count (auto) 3.3% (0.5-2.5) Sodium Level 136mmol/L (136-145) Potassium Level 4.5mmol/L (3.5-5.1) Chloride Level 96mmol/L (98-107) Carbon Dioxide Level 34mmol/L (21-32) Anion Gap 6 (6-14) Blood Urea Nitrogen 51mg/dL (7-20) Creatinine 1.5mg/dL (0.6-1.0) Estimated GFR (Non- 47 (>59) Estimated GFR (Cockcroft-Gault) 36.2 Glucose Level 163mg/dL (70-99) Calcium Level 9.0mg/dL (8.5-10.1) Iron Level 58ug/dL (50-170) Total Iron Binding Capacity 357ug/dL (250-450) Iron Saturation 16% (15-34) Ferritin 63ng/mL (8-252) EGFR 54 (>59) PTH (Intact) Specimen Description Comment (.) Parathyroid Hormone (Intact) 38pg/mL (15-65) Calcium (PTH Intact) 9.3mg/dL (8.7-10.2) Creatinine (PTH Intact) 1.29mg/dL (0.57-1.00) Phosphorus (PTH Intact) 4.7mg/dL (2.5-4.5) Test 01/20/17 16:25 01/20/17 21:13 01/21/17 05:00 01/21/17 07:40 Glucose (Fingerstick) 136mg/dL (70-99) 102mg/dL (70-99) 144mg/dL (70-99) Hemoglobin 11.9g/dL (12.0-15.5) Sodium Level 140mmol/L (136-145) Potassium Level 4.5mmol/L (3.5-5.1) Chloride Level 97mmol/L (98-107) Carbon Dioxide Level 37mmol/L (21-32) Anion Gap 6 (6-14) Blood Urea Nitrogen 60mg/dL (7-20) Creatinine 1.6mg/dL (0.6-1.0) Estimated GFR (Cockcroft-Gault) 33.6 Glucose Level 143mg/dL (70-99) Calcium Level 8.7mg/dL (8.5-10.1) Phosphorus Level 6.3mg/dL (2.6-4.7) Magnesium Level 1.8mg/dL (1.8-2.4) Albumin 2.9g/dL (3.4-5.0) Test 01/21/17 11:56 01/21/17 14:49 01/21/17 16:45 Glucose (Fingerstick) 182mg/dL (70-99) 173mg/dL (70-99) 205mg/dL (70-99) Laboratory Tests Test 01/20/17 21:13 01/21/17 05:00 01/21/17 07:40 01/21/17 11:56 Glucose (Fingerstick) 102mg/dL (70-99) 144mg/dL (70-99) 182mg/dL (70-99) Hemoglobin 11.9g/dL (12.0-15.5) Sodium Level 140mmol/L (136-145) Potassium Level 4.5mmol/L (3.5-5.1) Chloride Level 97mmol/L (98-107) Carbon Dioxide Level 37mmol/L (21-32) Anion Gap 6 (6-14) Blood Urea Nitrogen 60mg/dL (7-20) Creatinine 1.6mg/dL (0.6-1.0) Estimated GFR (Cockcroft-Gault) 33.6 Glucose Level 143mg/dL (70-99) Calcium Level 8.7mg/dL (8.5-10.1) Phosphorus Level 6.3mg/dL (2.6-4.7) Magnesium Level 1.8mg/dL (1.8-2.4) Albumin 2.9g/dL (3.4-5.0) Test 01/21/17 14:49 01/21/17 16:45 Glucose (Fingerstick) 173mg/dL (70-99) 205mg/dL (70-99) Brief Hospital Course Ms. Mari is a 56 old [sex] who presented with 1. Acute on chronic respiratory failure, multifactorial likely in nature: treated with nebulizer treatments, diuresis. Bumetidine added 2. COPD exacerbation: did not require steroids but received neb treatments. 3. Acute on chronic diastolic congestive heart failure: treated with med changes from carvedilol to metoprolol and addition of lisinopril 24-hour urine collection done to evaluate renal function for possible catheterization. 4. Uncontrolled diabetes mellitus type 2: Increased insulin, her Lantus went from 35 units bid to 40 bid and her Humalog from 30 tid ac to 35 tid ac. Dietary compliance is an issue at times. Blood sugars are doing better now. Continue current insulin regimen. 5. Hypertension: Improved with addition of amlodipine 6. Morbid obesity: Contributes to the above. 7. History of obstructive sleep apnea and pulmonary hypertension: Consider outpatient repeat sleep study per pulmonology when the patient is stable status. She has not been compliant with CPAP in the past. 8. History of coronary artery disease: There was a plan from her last hospitalization to possibly do a catheterization to see if she does have an ischemic component to her congestive heart failure. Agree with Dr. Major that we need to make sure that her kidneys would be capable of tolerating a catheterization. Even if they were she may still be a better candidate for medical management. We'll defer to nephrology who ordered a 24 hr urine study and is recommending a f/u in the office in [address] Major will evaluate regarding cardiac catheterization. 9. bacteruria - 50,000 cfu Klebsiella R to amox but S to others so elected to start her today on 5 days of po levaquin 250 mg daily 10. constipation - started amitiza 8 mcg 1 bid which will be continued Discharge Information Condition at Discharge: Improved, Stable Follow Up: Weeks (1-2 weeks with Pedrito Nascimento and Esther/Kaleb) Disposition/Orders: D/C to Home Scheduled ([Metolazone]) 2.5 MG PO 3X/WEEK ([Metronidazole]) 500 MG PO Q8HRS Aspirin (Aspirin) 1 TAB PO DAILY (Reported) Atorvastatin Calcium (Atorvastatin Calcium) 1 TAB PO DAILY (Reported) Carvedilol (Coreg) 1 TAB PO BID Dabigatran Etexilate Mesylate (Pradaxa) 1 CAP PO BID (Reported) Duloxetine Hcl (Cymbalta) 1 CAP PO BID (Reported) Esomeprazole Magnesium (Nexium Capsule) 1 CAP PO DAILY (Reported) Fenofibrate,Micronized (Fenofibrate) 1 CAP PO DAILY (Reported) Insulin Glargine,Hum.rec.anlog (Lantus) 35 UNIT SQ BID Insulin Lispro (Humalog) 30 UNIT SQ TIDAC Ipratropium/Albuterol Sulfate (Duoneb 0.5-3(2.5) Mg/3 Ml) 3 ML NEB PRN QID Isosorbide Mononitrate (Isosorbide Mononitrate Er) 1 TAB PO DAILY Levothyroxine Sodium (Levothyroxine Sodium) 1 TAB PO DAILY (Reported) Pregabalin (Lyrica) 1 CAP PO BID (Reported) Scheduled PRN Hydrocodone Bit/Acetaminophen (Hydrocodone-Apap 10-325 ) 1 TAB PO PRN Q6HRS PRN PRN PAIN (Reported) Nitroglycerin (Nitrostat) 0.4 MG SL PRN Q5MIN PRN PRN CP RATING > 1/10 Tizanidine Hcl (Zanaflex) 4 MG PO PRN Q8HRS PRN PRN MUSCLE SPASMS (Reported) NADIR ESPINOZA MD Jan 21, 2017 18:40
[2017-01-21 20:09] LABS: TOTAL SERUM CREATININE 1.41 mg/dL (0.57-1.00); TOTAL URINE CREATININE 38.1 mg/dL (Not Estab.)
== END 2017-01-21 18:00 | disposition home or self-care (01) | DRG 291 ==
LOC: ER 21:35 → 1 WEST ICU 21:50 → 2 SOUTH 01-19 12:17
PROVIDERS: ADMIT Family Medicine; ATTEND Family Medicine
PROC: 5A09457 Assistance with Respiratory Ventilation, 24-96 Consecutive Hours, Continuous Positive Airway Pressure (ICD-10-PCS; principal; 2017-01-18)
DX: I50.33 Acute on chronic diastolic (congestive) heart failure (principal); J96.21 Acute and chronic respiratory failure with hypoxia; I13.0 Hypertensive heart and chronic kidney disease with heart failure and stage 1 through stage 4 chronic kidney disease, or unspecified chronic kidney disease; J44.1 Chronic obstructive pulmonary disease with (acute) exacerbation; N18.4 Chronic kidney disease, stage 4 (severe); N17.9 Acute kidney failure, unspecified; Z68.43 Body mass index [BMI] 50.0-59.9, adult; I25.10 Atherosclerotic heart disease of native coronary artery without angina pectoris; G47.33 Obstructive sleep apnea (adult) (pediatric); Z86.711 Personal history of pulmonary embolism; K21.9 Gastro-esophageal reflux disease without esophagitis; E78.5 Hyperlipidemia, unspecified; I48.0 Paroxysmal atrial fibrillation; M10.9 Gout, unspecified; E03.9 Hypothyroidism, unspecified; I27.2 Other secondary pulmonary hypertension; E66.01 Morbid (severe) obesity due to excess calories; E11.65 Type 2 diabetes mellitus with hyperglycemia; M19.90 Unspecified osteoarthritis, unspecified site; F32.9 Major depressive disorder, single episode, unspecified; E11.42 Type 2 diabetes mellitus with diabetic polyneuropathy; D64.9 Anemia, unspecified; K59.00 Constipation, unspecified; D72.829 Elevated white blood cell count, unspecified; E11.22 Type 2 diabetes mellitus with diabetic chronic kidney disease; Z95.5 Presence of coronary angioplasty implant and graft; Z79.01 Long term (current) use of anticoagulants; Z87.442 Personal history of urinary calculi; Z86.73 Personal history of transient ischemic attack (TIA), and cerebral infarction without residual deficits; Z90.49 Acquired absence of other specified parts of digestive tract; Z87.891 Personal history of nicotine dependence; Z82.49 Family history of ischemic heart disease and other diseases of the circulatory system; Z83.3 Family history of diabetes mellitus; Z91.19 Patient's noncompliance with other medical treatment and regimen; I25.2 Old myocardial infarction; Z79.4 Long term (current) use of insulin; Z91.11 Patient's noncompliance with dietary regimen
CPT/HCPCS: 36415; 36600; 51702; 71010; 71020; 80048; 80069; 80305; 80320; 81001; 82575; 82728; 82805; 82947; 83540; 83550; 83735; 83880; 83970; 84156; 84484; 85007; 85018; 85027; 85045; 87086; 87186; 87641; 93005; 94250; 94640; 94660; 94760; 96374; 96375; G0481; J1650; J1815; J1940; J1956; J2930; J3010; J7050; J7620; 97116; 99285-25; J7030

== ENCOUNTER 2017-02-03 14:19 | Inpatient (IN) | payer OTHER, MEDICARE ==
[~2017-02-03] VITALS: Ht 152.4 cm; Wt 114.3 kg
[~2017-02-03 14:19] MED LIST changes: +AMLO5TAB2 PO; +INSU200I SQ; +LEVO250T7 PO; +LUBI8CAP3 PO; +METO50TA2 PO
[2017-02-03] MEDS ORDERED: IV NORMAL SALINE 1000ML BAG 1,000 ML IV SCH (15:13)
[2017-02-03] MEDS ORDERED: 0.9 % SODIUM CHLORIDE 10 ML DISP.SYRIN. IV PRN (15:15)
[2017-02-03] MEDS ORDERED: ASPIRIN CHEWABLE 81 MG TABLET. PO ONE (15:15)
[2017-02-03 15:22] LABS: BASO # 0.1 x10^3/uL (0.0-0.2); BASO % 1 % (0-3); EOS % 5 % (0-3); HEMATOCRIT 36.3 % (36.0-47.0); HEMOGLOBIN 11.9 g/dL (12.0-15.5); LYMPH # 5.4 x10^3/uL (1.0-4.8); LYMPH % 36 % (24-48); MEAN CORPUSCULAR HEMOGLOBIN 29 pg (25-35); MEAN CORPUSCULAR HGB CONC 33 g/dL (31-37); MEAN CORPUSCULAR VOLUME 88 fL (79-100); MONO % 8 % (0-9); NEUT % 51 % (31-73); PLATELET COUNT 400 x10^3/uL (140-400); RED BLOOD COUNT 4.14 x10^6/uL (3.50-5.40); RED CELL DISTRIBUTION WIDTH 14.2 % (11.5-14.5); WHITE BLOOD COUNT 14.9 x10^3/uL (4.0-11.0)
--- NOTE | 2017-02-03 15:24 | PHYS DOC ---
Past Medical History Past Medical History: CHF, COPD, Diabetes-Type II, Heart Disease, Hypertension , HI, Renal Disease, Stroke, Other Additional Past Medical Histor: morbid obesity, REFLEX SYNTHEIC DISTROPHY, SEPSIS Past Surgical History: Angioplasty, Appendectomy, Cholecystectomy, Hysterectomy , Other Additional Past Surgical Histo: thoractomy, lumpectomy, exploratory surgery, hernia, bladder sling Alcohol Use: None Drug Use: None Adult General Chief Complaint Chief Complaint: [facility] HPI This is a pleasant 56-year-old female with history of chronic lower back pain, poorly controlled diabetes type 2, hypertension, asthma, CAD with known heart disease secondary to HI, hypertension,hyperlipidemia, remote visiting her doctor 's office to be treated at different thinning medication became lightheaded and dizzy and diaphoretic. She denies any shortness of breath or chest pain became intensely nauseated without vomiting or diarrhea. She denies any recent cough fevers chills or trauma. Patient denies any recent travel outside the country recently antibiotics. She does admit to be being out of her blood thinning medication called PRADAXA. Last dose was a week and a half ago. She stopped this medication because her insurance no longer carried it recovered by her insurance she was supposed to start taking her liquids today. She is still mildly dizzy. Denies any new numbness or tingling weakness in her upper and lower extremities just generalized fatigue. Review of Systems Review of Systems Constitutional: She has a complaint of fatigue Eyes: Denies change in visual acuity, redness, or eye pain [] HENT: Denies nasal congestion or sore throat [] Respiratory: Denies cough or URI symptoms or shortness of breath Cardiovascular: No additional information not addressed in HPI [] GI: Planes of nausea without vomiting or diarrhea : Denies dysuria or hematuria [] Musculoskeletal: Denies back pain or joint pain [] Integument: Denies rash or skin lesions [] Neurologic: Denies headache, focal weakness or sensory changes he was generally weak without focal neurologic deficit. Endocrine: Denies polyuria or polydipsia [] Current Medications Current Medications Current Medications Medications (Trade) Dose Ordered Sig/Jesus Manuel Start Time Stop Time Status Last Admin Dose Admin Aspirin (Children'S Aspirin) 324 mg 1X ONCE 02/03/17 15:15 02/03/17 15:16 DC 02/03/17 15:19 324 MG Info (Do NOT chart on this entry -- for MONITORING) 1 each PRN DAILY PRN 02/03/17 15:30 02/05/17 15:29 Iohexol (Omnipaque 300 Mg/ml) 75 ml 1X ONCE 02/03/17 15:30 02/03/17 15:31 DC Sodium Chloride (Normal Saline Flush) 10 ml QSHIFT PRN 02/03/17 15:15 Allergies Allergies Allergies Coded Allergies Type Severity Reaction Last Updated Verified No Known Drug Allergies 12/23/16 No Physical Exam Physical Exam Constitutional: Well developed, well nourished, morbidly obese nondiaphoretic pale looking female HENT: Normocephalic, atraumatic, bilateral external ears normal, oropharynx moist, no oral exudates, nose normal. [] Eyes: PERRLA, EOMI, conjunctiva normal, no discharge. [] Neck: Normal range of motion, no tenderness, supple, no stridor. [] Cardiovascular:Heart rate regular rhythm, no murmur [] Lungs & Thorax: Bilateral breath sounds clear to auscultation [] Abdomen: Bowel sounds normal, soft, no tenderness, no masses, no pulsatile masses. [] Skin: Warm, dry, no erythema, no rash. [] Back: No tenderness, no CVA tenderness. [] Extremities: No tenderness, no cyanosis, no clubbing, ROM intact, no edema. [] Neurologic: Alert and oriented X 3, normal motor function, normal sensory function, no focal deficits noted. [] Psychologic: Affect normal, judgement normal, mood normal. [] Current Patient Data Vital Signs Vital Signs Date Time Temp Pulse Resp B/P (MAP) Pulse Ox O2 Delivery O2 Flow Rate FiO2 02/03/17 14:20 98.0 54 16 99/58 (72) 98 Room Air 98.0 Lab Values Laboratory Tests Test 02/03/17 14:30 White Blood Count 14.9 x10^3/uL (4.0-11.0) H Red Blood Count 4.14 x10^6/uL (3.50-5.40) Hemoglobin 11.9 g/dL (12.0-15.5) L Hematocrit 36.3 % (36.0-47.0) Mean Corpuscular Volume 88 fL (79-100) Mean Corpuscular Hemoglobin 29 pg (25-35) Mean Corpuscular Hemoglobin Concent 33 g/dL (31-37) Red Cell Distribution Width 14.2 % (11.5-14.5) Platelet Count 400 x10^3/uL (140-400) Neutrophils (%) (Auto) 51 % (31-73) Lymphocytes (%) (Auto) 36 % (24-48) Monocytes (%) (Auto) 8 % (0-9) Eosinophils (%) (Auto) 5 % (0-3) H Basophils (%) (Auto) 1 % (0-3) Neutrophils # (Auto) 7.6 x10^3uL (1.8-7.7) Lymphocytes # (Auto) 5.4 x10^3/uL (1.0-4.8) H Monocytes # (Auto) 1.1 x10^3/uL (0.0-1.1) Eosinophils # (Auto) 0.7 x10^3/uL (0.0-0.7) Basophils # (Auto) 0.1 x10^3/uL (0.0-0.2) Prothrombin Time 13.4 SEC (11.7-14.0) Prothrombin Time INR 1.1 (0.8-1.1) Sodium Level 141 mmol/L (136-145) Potassium Level 3.9 mmol/L (3.5-5.1) Chloride Level 101 mmol/L (98-107) Carbon Dioxide Level 30 mmol/L (21-32) Anion Gap 10 (6-14) Blood Urea Nitrogen 52 mg/dL (7-20) H Creatinine 2.2 mg/dL (0.6-1.0) H Estimated GFR (Cockcroft-Gault) 23.3 BUN/Creatinine Ratio 24 (6-20) H Glucose Level 93 mg/dL (70-99) Calcium Level 9.0 mg/dL (8.5-10.1) Magnesium Level 1.4 mg/dL (1.8-2.4) L Total Bilirubin 0.3 mg/dL (0.2-1.0) Aspartate Amino Transferase (AST) 27 U/L (15-37) Alanine Aminotransferase (ALT) 35 U/L (14-59) Alkaline Phosphatase 118 U/L (46-116) H Creatine Kinase 110 U/L (26-192) Creatine Kinase MB (Mass) 1.2 ng/mL (0.0-3.6) Creatine Kinase MB Relative Index 1.1 % (0-4) Troponin I Quantitative 0.026 ng/mL (0.000-0.055) YM-Fxc-T-Type Natriuretic Peptide 740 pg/mL (0-124) H Total Protein 7.6 g/dL (6.4-8.2) Albumin 3.3 g/dL (3.4-5.0) L Albumin/Globulin Ratio 0.8 (1.0-1.7) L Lipase 73 U/L (73-393) Thyroid Stimulating Hormone (TSH) 1.648 uIU/mL (0.358-3.74) Laboratory Tests 02/03/17 14:30 Laboratory Tests 02/03/17 14:30 EKG EKG EKG timed 1420 5 PM dated 02/03/[address] Giles dosage rate of 55 which is sinus bradycardia normal P-wave to reach QRS [place] interval is 124 QT is 438 QRS is 76. Left axis deviation T-wave flattening in V1 and lateral leads V6[] Q wave noted in the anterior leads V1 and V2 which might be old and pathologic. Radiology/Procedures Radiology/Procedures [] IMAGING REPORT Signed PATIENT: EVELIA TAI ACCOUNT: [id number] : 1960 LOCATION: ER AGE: 56 SEX: F EXAM STATUS: PRE ER ORD. PHYSICIAN: KYLIE GILES MD REASON: near syncope PROCEDURE: PORTABLE CHEST 1V Exam performed: One view chest. Indication: near syncope Date of Service: 02/03/2017 5:08 PM Comparison: Chest from 01/20/17 Single AP upright portable view chest findings: Cardiomediastinal silhouette is mildly enlarged. Pulmonary vascularity is unremarkable. No acute infiltrates, effusion or pneumothorax is detected. The bony structures are normal. Impression: Mild cardiomegaly, otherwise unremarkable study DICTATED and SIGNED BY: BRENDA AGUIRRE MD DATE: 02/03/17 1529 CC: KYLIE GILES MD; JOSE BLAKELY MD ~ Course & Med Decision Making Course & Med Decision Making Pertinent Labs and Imaging studies reviewed. (See chart for details) Differntial diagnosis of syncope includes: cardiac syncope include arrhythmia, ischemia, structural/valvular abnormalities (eg, aortic stenosis, cardiac tamponade, and pacemaker malfunction , blood loss, pulmonary embolism, and subarachnoid hemorrhage. seizure, stroke, and head injury trauma, gastrointestinal bleeding, ruptured aortic aneurysm, ruptured ovarian cyst, ruptured ectopic , and ruptured spleen, Subarachnoid hemorrhage Neurocardiogenic syncope, Carotid sinus hypersensitivity, Orthostasis, Medications, subarachnoid hemorrhage, transient ischemic attack, subclavian steal syndrome, and complex migraine headache, seizure The course for evaluation patient developed a small run of sinus tachycardia as apparent on the monitor she develops little bit of chest pain with that fast rhythm. EKG was repeated unfortunately we're not able to capture the rhythm EKG dated 1607 date 02/03/2017 demonstrated heart rate of 59 sinus rhythm with left axis deviation Q waves still noted in V1 and V2 which are likely pathologic nonsevere T-wave flattening in the lateral leads in lead 1 and v6. He is pain- free at this time. Unfortunately her creatinine is too high and her GFR is too low to effectively use contrast in her CT anterior chest. I will bleed evaluation with a VQ scan. Patient does have a history of COPD but given the renal insufficiency patient will need to have the study completed. Patient will given subcutaneous Lovenox to protect her wall VQ scan is pending given her high risk features of syncope and tachycardia of unexplained origin. Patient will be admitted to internal medicine [facility] and consult Dr. Holman head of quality as well for continued evaluation. Laboratory results vital signs and nursing was also been reviewed agree with what has been documented. Explained case treatment plan and follow-up with family at bedside. impression: Syncope possible cardiac origin Disposition: Admission Dragon Disclaimer Dragon Disclaimer This electronic medical record was generated, in whole or in part, using a voice recognition dictation system. Departure Departure Impression: Primary Impression: Dehydration Additional Impressions: Dizziness Hypotension Lightheadedness Disposition: ADMITTED INPATIENT Admitting Physician: Gilbert Milton Condition: GUARDED Referrals: JOSE BLAKELY MD (PCP) Problem Qualifiers KYLIE GILES MD February 03, 2017 15:24
[2017-02-03] MEDS ORDERED: CONTRAST GIVEN MC PRN (15:30)
[2017-02-03] MEDS ORDERED: IOHEXOL 300 MG/ML 75 ML VIAL IV ONE (15:30)
[2017-02-03 15:31] LABS: INR 1.1 (0.8-1.1); PROTHROMBIN TIME PATIENT 13.4 SEC (11.7-14.0)
--- NOTE | 2017-02-03 15:32 | RAD ---
Exam performed: One view chest. Indication: near syncope Date of Service: 02/03/2017 5:08 PM Comparison: Chest from 01/20/17 Single AP upright portable view chest findings: Cardiomediastinal silhouette is mildly enlarged. Pulmonary vascularity is unremarkable. No acute infiltrates, effusion or pneumothorax is detected. The bony structures are normal. Impression: Mild cardiomegaly, otherwise unremarkable study
[2017-02-03 15:40] LABS: CREATININE 2.2 mg/dL (0.6-1.0); GFR 23.3; POTASSIUM 3.9 mmol/L (3.5-5.1)
[2017-02-03 15:43] LABS: MAGNESIUM 1.4 mg/dL (1.8-2.4)
[2017-02-03 15:45] LABS: ALBUMIN 3.3 g/dL (3.4-5.0); ALBUMIN/GLOBULIN RATIO 0.8 (1.0-1.7); TOTAL BILIRUBIN 0.3 mg/dL (0.2-1.0); TOTAL PROTEIN 7.6 g/dL (6.4-8.2)
[2017-02-03 15:54] LABS: CKMB MASS 1.2 ng/mL (0.0-3.6)
--- NOTE | 2017-02-03 16:05 | EKG ---
[facility] [address] [place] [address] Test Date: 2017-02-03 Test Time: 14:25:26 Pat Name: EVELIA TAI Department: Room: Gender: Female Social Media Coordinator: : 1960 Requested By: KYLIE GILES Order Number: [id number] Reading MD: Ash Howard Measurements Intervals [place] Rate: 55 P: 22 [place]: 162 QRS: -11 QRSD: 76 T: 102 QT: 438 QTc: 421 Interpretive Statements SINUS RHYTHM LEFTWARD AXIS T ABNORMALITY IN HIGH LATERAL LEADS Electronically Signed On 02-06-2017 14:54:16 CDT by Ash Howard
[2017-02-03] MEDS ORDERED: ONDANSETRON PF 4 MG/2 ML VIAL. IV PRN (16:15)
[2017-02-03] MEDS ORDERED: fentaNYL PF VIAL 100 MCG/2 ML VIAL IV PRN (16:15)
--- NOTE | 2017-02-03 18:32 | ACF ---
Admission Forms Criteria DEHYDRATION Clinical Indications for Admission to Inpatient Care (Place 'X' for any and all applicable criteria): Admission is indicated for ANY ONE of the following (1)(2)(3)(4)(5): [X]I. Inpatient admission required rather than observation care (see Dehydration: Observation Care guideline as appropriate) because of ANY ONE of the following: [ ]a) Vomiting that is severe or persistent [ ]b) Severe electrolyte abnormalities requiring inpatient care [X]c) Hemodynamic instability [ ]d) IV fluid to replace significant ongoing losses (greater than 3 L/m2 per day (10) (11) [ ]e) Parenteral nutrition regimen that must be implemented on inpatient basis [ ]f) Other condition,treatment or monitoring requiring inpatient admission [ ]II. Serious cause for dehydration requiring acute hospitalization (eg, bowel obstruction, increased intracranial pressure, infectious cause) Extended stay beyond goal length of stay may be needed for(1)(3 )(4)(17): [ ]a) Chronic severe dehydration [ ]b) Persistent vital sign changes, severe electrolyte imbalance, or diagnosed cause of dehydration that requires continued hospitalization (eg, bowel obstruction, increased intracranial pressure) [ ]c) Older patients (65 years or older) [ ]d) Severe comorbid illness (eg, renal failure, heart failure, poorly controlled diabetes) The original [employer] content created by [employer] has been revised. The portions of the content which have been revised are identified through the use of italic text or in bold, and [facility] has neither reviewed nor approved the modified material. All other unmodified content is copyright [employer]. Please see references footnoted in the original [employer] edition 2016 Admission Criteria Met?: Yes SANAM FELIPE February 03, 2017 18:32
[2017-02-03 19:24] VITALS: BP 101/58
--- NOTE | 2017-02-03 19:40 | RAD ---
The cute lung scan Indication: Near syncope. The patient was administered 16 millicuries of xenon 133 gas and inspiratory, equilibrium and washout views were obtained over the chest. Next, the patient was administered 5 millicuries technetium 99 M maa intravenously and imaging of the chest was performed in multiple obliquities. Ventilation portion of the exam demonstrates fairly homogeneous ventilation to both lungs. There is normal washout. No ventilation defects are seen. The perfusion study demonstrates fairly homogeneous perfusion of both lungs. No pleural based perfusion defects are seen. Impression: Findings consistent with low probability for pulmonary embolism. Electronically signed by: Chau Strong MD (February 03, 2017 19:39:26)
[2017-02-03 19:44] VITALS: BP 117/77
[2017-02-03 19:55] VITALS: BP 107/63
[2017-02-03] MEDS: IPRATRPIUM/ALBUTEROL 0.5/2.5MG 3 ML NEBU. NEB SCH (20:26)
[2017-02-03] MEDS ORDERED: IPRATRPIUM/ALBUTEROL 0.5/2.5MG 3 ML NEBU. NEB SCH (20:45)
[2017-02-03] MEDS ORDERED: ATORVASTATIN CALCIUM 20 MG TABLET PO SCH (21:00)
[2017-02-03] MEDS ORDERED: tiZANidine 4 MG TABLET. PO PRN (21:00)
[2017-02-03] MEDS: DULoxetine HCL 30 MG CAPSULE.DR PO SCH (21:58)
[2017-02-03] MEDS: PREGABALIN 75 MG CAPSULE PO SCH (21:58)
[2017-02-03] MEDS: INSULIN DETEMIR 300 UNITS/3 ML INSULN.PEN. SQ SCH (22:03)
[2017-02-03] MEDS: HYDROcodone/APAP 10/325 1 TAB TABLET PO PRN (22:04)
[2017-02-03 23:36] VITALS: BP 107/52
--- NOTE | 2017-02-04 00:09 | HP ---
ADMIT DATE: 02/03/2017 CHIEF COMPLAINT: Syncope. HISTORY OF PRESENT ILLNESS: The patient is a pleasant middle-aged female who has been on Pradaxa. She states they want to change her meds to Eliquis. She went to her doctor to get change and while she is at her doctor's office she passed out. I have discussed the case with the ER physician. We are going to admit the patient and consult Cardiology. PAST MEDICAL HISTORY: Chronic anticoagulation, syncope. ALLERGIES: None. FAMILY HISTORY: Diabetes. SOCIAL HISTORY: She does not drink, smoke or take drugs. MEDICATIONS: Reviewed, please refer to the MRAD. REVIEW OF SYSTEMS: GENERAL: No history of weight change, weakness or fevers. SKIN: No bruising, hair changes or rashes. EYES: No blurred, double or loss of vision. NOSE AND THROAT: No history of nosebleeds, hoarseness or sore throat. HEART: No history of palpitations, chest pain or shortness of breath on exertion. LUNGS: Denies cough, hemoptysis, wheezing or shortness of breath. GASTROINTESTINAL: Denies changes in appetite, nausea, vomiting, diarrhea or constipation. GENITOURINARY: No history of frequency, urgency, hesitancy or nocturia. NEUROLOGIC: Complains of weakness. PSYCHIATRIC: No history of panic, anxiety or depression. ENDOCRINE: No history of heat or cold intolerance, polyuria or polydipsia. EXTREMITIES: Denies muscle weakness, joint pain, pain on walking or stiffness. PHYSICAL EXAMINATION: VITAL SIGNS: Temperature afebrile, pulse 67, respirations 22, blood pressure 144/98. GENERAL: She is alert, cooperative. Her family is present. HEART: Normal S1, S2 with a soft S3. LUNGS: Clear, but diminished. ABDOMEN: Soft, positive bowel sounds. EXTREMITIES: 1+ edema. SKIN: No rashes. PSYCHIATRIC: Stable. VASCULAR: Good capillary refill. ENDOCRINE: No thyromegaly. LYMPHATICS: No cervical nodes. ASSESSMENT AND PLAN: Syncope. The patient has been admitted. We will follow cardiac enzymes, cardiac monitoring. Consult Cardiology, try to resume her home meds, PT, OT. DASHA MORRISON DO DR: FRANK/apolinar JOB#: [id number] / [id number]
[2017-02-04 03:02] VITALS: BP 120/56
[2017-02-04] MEDS: HYDROcodone/APAP 10/325 1 TAB TABLET PO PRN (04:53)
[2017-02-04 07:00] VITALS: BP 104/54
[2017-02-04] MEDS ORDERED: LEVOTHYROXINE 50 MCG TABLET PO SCH ×2 (07:00→07:30)
[2017-02-04] MEDS ORDERED: PANTOPRAZOLE 40 MG TABLET.DR. PO SCH (07:30)
[2017-02-04] MEDS: IPRATRPIUM/ALBUTEROL 0.5/2.5MG 3 ML NEBU. NEB SCH ×3 (07:51→15:58)
[2017-02-04] MEDS: LUBIPROSTONE 8 MCG CAPSULE PO SCH ×2 (08:59→17:00)
[2017-02-04] MEDS: DULoxetine HCL 30 MG CAPSULE.DR PO SCH (08:59)
[2017-02-04] MEDS ORDERED: ASPIRIN CHEWABLE 81 MG TABLET. PO SCH (09:00)
[2017-02-04] MEDS ORDERED: ENOXAPARIN 40 MG/0.4 ML SYRINGE. SQ SCH (09:00)
[2017-02-04] MEDS ORDERED: FENOFIBRATE,MICRONIZED 134 MG CAPSULE PO SCH (09:00)
[2017-02-04] MEDS: PREGABALIN 75 MG CAPSULE PO SCH (09:00)
[2017-02-04] MEDS: INSULIN ASPART 300 UNITS/3 ML INSULN.PEN SQ SCH ×3 (09:22→16:30)
[2017-02-04] MEDS: INSULIN DETEMIR 300 UNITS/3 ML INSULN.PEN. SQ SCH (09:23)
[2017-02-04 11:03] VITALS: BP 108/51
--- NOTE | 2017-02-04 11:27 | EKG ---
[facility] [address] [place] [address] Test Date: 2017-02-03 Test Time: 16:07:11 Pat Name: EVELIA TAI Department: Room: 262 1 Gender: F [employer] Hand: : 1960 Requested By: KYLIE GILES Order Number: [id number] Reading MD: Ash Howard Measurements Intervals [place] Rate: 59 P: 47 [place]: 164 QRS: 0 QRSD: 72 T: 90 QT: 424 QTc: 424 Interpretive Statements SINUS RHYTHM Electronically Signed On 02-06-2017 14:55:28 CDT by Ash Howard
--- NOTE | 2017-02-04 15:46 | PDOC2 ---
CONSULT Date of Consult Date of Consult DATE: 02/04/17 TIME: 15:40 Reason for Consult Reason for Consult: Syncope Referring Physician Referring Physician: Dr. Milton Identification/Chief Complaint Chief Complaint Syncope History of Present Illness Reason for Visit: This patient is a 56-year-old lady that is a very frequent admissions to this institution as well as other hospitals in [facility]. She has a lot of problems with hypertension and her blood pressure tends to fluctuate. She has been having some issues with her blood pressure being elevated as well as her blood sugars being up to 600. The patient reports that her blood sugars at home have been doing much better and had been under 200 but that her blood pressure medications had been increased. She came in after she had an episode of syncope while at her doctor's office. She denies having any palpitations and she denies having any falls and since arrival her blood pressures have been low and all of her BP meds have been on hold. At the time that I saw her she denies having any chest pains, no lightheadedness , no dyspnea. Past Medical History Cardiovascular: CAD, CHF, HTN, NE, Other Pulmonary: COPD, Pulmonary embolus, Other CENTRAL NERVOUS SYSTEM: CVA, Periperal neuropathy, Other GI: Other Heme/Onc: No pertinent hx Hepatobiliary: No pertinent hx Psych: Depression, Other Musculoskeletal: low back pain, Osteoarthritis Rheumatologic: Gout Infectious disease: No pertinent hx Renal/: UTI, Urinary Incontinence Endocrine: Diabetes Past Surgical History Past Surgical History: Cholecystectomy, Hernia Repair, Hysterectomy, Other Family History Family History: Coronary Artery Disease, Diabetes Social History ALCOHOL: none Drugs: None Current Problem List Problem List Problems Medical Problems: (1) Dehydration Status: Acute (2) Dizziness Status: Acute (3) Hypotension Status: Acute (4) Lightheadedness Status: Acute Current Medications Current Medications Current Medications Aspirin (Children'S Aspirin) 324 mg 1X ONCE PO Last administered on 02/03/17 15:19; Start 02/03/17 at 15:15; Stop 02/03/17 at 15:16; Status DC Sodium Chloride 1,000 ml @ 1,000 mls/hr Q1H IV Last administered on 02/03/17 16:00; Start 02/03/17 at 15:13; Stop 02/03/17 at 16:12; Status DC Sodium Chloride (Normal Saline Flush) 10 ml QSHIFT PRN IV AFTER MEDS AND BLOOD DRAWS; Start 02/03/17 at 15:15 Iohexol (Omnipaque 300 Mg/ml) 75 ml 1X ONCE IV ; Start 02/03/17 at 15:30; Stop 02/03/17 at 15:31; Status DC Info (Do NOT chart on this entry -- for MONITORING) 1 each PRN DAILY PRN MC SEE COMMENTS; Start 02/03/17 at 15:30; Stop 02/05/17 at 15:29 Enoxaparin Sodium (Lovenox 80mg Syringe) 80 mg 1X ONCE SQ Last administered on 02/03/17 21:59; Start 02/03/17 at 16:15; Stop 02/03/17 at 16:25; Status DC Ondansetron HCl (Zofran) 4 mg PRN Q8HRS PRN IV NAUSEA/VOMITING; Start 02/03/17 at 16:15; Stop 02/04/17 at 16:14 Fentanyl Citrate (Fentanyl 2ml Vial) 50 mcg PRN Q1HR PRN IV PAIN; Start at 16:15; Stop 02/04/17 at 16:14 Albuterol/ Ipratropium (Duoneb) 3 ml RTQID NEB Last administered on 02/04/17 12:03; Start 02/03/17 at 20:00; Stop 02/04/17 at 19:59 Enoxaparin Sodium (Lovenox 40mg Syringe) 40 mg BID SQ Last administered on 02/04 09:00; Start 02/04/17 at 09:00 Aspirin (Children'S Aspirin) 81 mg DAILY PO Last administered on 02/04/17 08: 59; Start 02/04/17 at 09:00 Atorvastatin Calcium (Lipitor) 20 mg QHS PO Last administered on 02/03/17 21: 57; Start 02/03/17 at 21:00 Fenofibrate (Lofibra) 134 mg DAILY PO Last administered on 02/04/17 08:59; Start 02/04/17 at 09:00 Acetaminophen/ Hydrocodone Bitart (Lortab 10/325) 1 tab PRN Q6HRS PRN PO PAIN Last administered on 02/04/17 04:53; Start 02/03/17 at 20:45 Albuterol/ Ipratropium (Duoneb) 3 ml PRN QID NEB Last administered on 03:16; Start 02/03/17 at 20:45 Levothyroxine Sodium (Synthroid) 50 mcg DAILY07 PO ; Start 02/04/17 at 07:00; Stop 02/04/17 at 07:00; Status DC Lubiprostone (Amitiza) 8 mcg BIDWMEALS PO Last administered on 02/04/17 08:59 ; Start 02/04/17 at 08:00 Duloxetine HCl (Cymbalta) 60 mg BID PO Last administered on 02/04/17 08:59; Start 02/03/17 at 21:00 Pantoprazole Sodium (Protonix) 40 mg DAILYAC PO Last administered on 02/04/17 08:58; Start 02/04/17 at 07:30 Insulin Detemir (Levemir) 40 units BID SQ Last administered on 02/04/17 09:23 ; Start 02/03/17 at 21:00 Insulin Aspart (NovoLOG) 35 units TIDAC SQ Last administered on 02/04/17 12:31 ; Start 02/04/17 at 07:30 Pregabalin (Lyrica) 150 mg BID PO Last administered on 02/04/17 09:00; Start 02/03/17 at 21:00 Tizanidine HCl (Zanaflex) 4 mg PRN Q8HRS PRN PO MUSCLE SPASMS Last administered on 02/03/17 22:04; Start 02/03/17 at 21:00 Levothyroxine Sodium (Synthroid) 50 mcg DAILY07 PO Last administered on 08:58; Start 02/04/17 at 07:30 Active Scripts Active Humalog Kwikpen (Insulin Lispro) 200 Unit/1 Ml Insuln.pen 35 Unit SQ TID Lantus Solostar (Insulin Glargine,Hum.rec.anlog) 100 Unit/1 Ml Insuln.pen 40 Unit SQ BID Bumetanide 1 Mg Tablet 2 Mg PO DAILY Amlodipine Besylate 5 Mg Tablet 5 Mg PO BID Lisinopril 20 Mg Tablet 20 Mg PO BID Amitiza (Lubiprostone) 8 Mcg Capsule 8 Mcg PO BIDWMEALS Metoprolol Tartrate 50 Mg Tablet 50 Mg PO BID Duoneb 0.5-3(2.5) Mg/3 Ml (Albuterol/Ipratropium) 3 Ml Ampul.neb 3 Ml NEB PRN QID Isosorbide Mononitrate Er (Isosorbide Mononitrate) 60 Mg Tab.er.24h 1 Tab PO DAILY [Metolazone] 2.5 MG Tablet 2.5 Mg PO 3X/WEEK take on Mon, Wed, Fri AM Nitrostat (Nitroglycerin) 0.4 Mg Tab.subl 0.4 Mg SL PRN Q5MIN PRN 30 Days Reported Lyrica (Pregabalin) 150 Mg Capsule 1 Cap PO BID Cymbalta (Duloxetine Hcl) 60 Mg Capsule.dr 1 Cap PO BID Atorvastatin Calcium 20 Mg Tablet 1 Tab PO DAILY Nexium Capsule (Esomeprazole Magnesium) 40 Mg Capsule.dr 1 Cap PO DAILY Aspirin 81 Mg Tab.chew 1 Tab PO DAILY Pradaxa (Dabigatran Etexilate Mesylate) 150 Mg Capsule 1 Cap PO BID Levothyroxine Sodium 50 Mcg Tablet 1 Tab PO DAILY Fenofibrate (Fenofibrate,Micronized) 134 Mg Capsule 1 Cap PO DAILY Zanaflex (Tizanidine Hcl) 4 Mg Capsule 4 Mg PO PRN Q8HRS PRN as needed for muscle cramps no more than every 8hrs Hydrocodone-Apap 10-325 (Hydrocodone Bit/Acetaminophen) 1 Each Tablet 1 Tab PO PRN Q6HRS PRN as needed for pain every 6 hours Allergies Allergies: Coded Allergies: No Known Drug Allergies (Unverified , 12/23/16) Physical Exam Physical Exam H EENT pupils are reactive, oral mucosa well-hydrated. Neck is supple no JVD. Lungs she is moving air better than the last time I saw her about 3 weeks ago no wheezing, no Rales. Heart regular, S1-S2. No changes in murmur. Abdomen is protuberant, soft bowel sounds are present. Extremities 1+ edema. Neurological exam was grossly intact. Vitals VITALS Vital Signs Date Time Temp Pulse Resp B/P (MAP) Pulse Ox O2 Delivery O2 Flow Rate FiO2 02/04/17 12:04 Room Air 02/04/17 11:03 97.9 71 20 108/51 (70) 94 97.9 02/04/17 08:23 3.0 Labs Labs Laboratory Tests Test 02/03/17 14:30 02/03/17 20:48 02/03/17 21:33 02/04/17 04:25 White Blood Count 14.9 x10^3/uL (4.0-11.0) Red Blood Count 4.14 x10^6/uL (3.50-5.40) Hemoglobin 11.9 g/dL (12.0-15.5) Hematocrit 36.3 % (36.0-47.0) Mean Corpuscular Volume 88 fL (79-100) Mean Corpuscular Hemoglobin 29 pg (25-35) Mean Corpuscular Hemoglobin Concent 33 g/dL (31-37) Red Cell Distribution Width 14.2 % (11.5-14.5) Platelet Count 400 x10^3/uL (140-400) Neutrophils (%) (Auto) 51 % (31-73) Lymphocytes (%) (Auto) 36 % (24-48) Monocytes (%) (Auto) 8 % (0-9) Eosinophils (%) (Auto) 5 % (0-3) Basophils (%) (Auto) 1 % (0-3) Neutrophils # (Auto) 7.6 x10^3uL (1.8-7.7) Lymphocytes # (Auto) 5.4 x10^3/uL (1.0-4.8) Monocytes # (Auto) 1.1 x10^3/uL (0.0-1.1) Eosinophils # (Auto) 0.7 x10^3/uL (0.0-0.7) Basophils # (Auto) 0.1 x10^3/uL (0.0-0.2) Prothrombin Time 13.4 SEC (11.7-14.0) Prothromb Time International Ratio 1.1 (0.8-1.1) Sodium Level 141 mmol/L (136-145) Potassium Level 3.9 mmol/L (3.5-5.1) Chloride Level 101 mmol/L (98-107) Carbon Dioxide Level 30 mmol/L (21-32) Anion Gap 10 (6-14) Blood Urea Nitrogen 52 mg/dL (7-20) Creatinine 2.2 mg/dL (0.6-1.0) Estimated GFR (Cockcroft-Gault) 23.3 BUN/Creatinine Ratio 24 (6-20) Glucose Level 93 mg/dL (70-99) Calcium Level 9.0 mg/dL (8.5-10.1) Magnesium Level 1.4 mg/dL (1.8-2.4) Total Bilirubin 0.3 mg/dL (0.2-1.0) Aspartate Amino Transf (AST/SGOT) 27 U/L (15-37) Alanine Aminotransferase (ALT/SGPT) 35 U/L (14-59) Alkaline Phosphatase 118 U/L (46-116) Creatine Kinase 110 U/L (26-192) Creatine Kinase MB (Mass) 1.2 ng/mL (0.0-3.6) Creatine Kinase MB Relative Index 1.1 % (0-4) Troponin I Quantitative 0.026 ng/mL (0.000-0.055) 0.021 ng/mL (0.000-0.055) 0.031 ng/mL (0.000-0.055) WP-Wsa-A-Type Natriuretic Peptide 740 pg/mL (0-124) Total Protein 7.6 g/dL (6.4-8.2) Albumin 3.3 g/dL (3.4-5.0) Albumin/Globulin Ratio 0.8 (1.0-1.7) Lipase 73 U/L (73-393) Thyroid Stimulating Hormone (TSH) 1.648 uIU/mL (0.358-3.74) Glucose (Fingerstick) 162 mg/dL (70-99) Test 02/04/17 07:51 02/04/17 11:02 Glucose (Fingerstick) 172 mg/dL (70-99) 290 mg/dL (70-99) Laboratory Tests Test 02/03/17 20:48 02/03/17 21:33 02/04/17 04:25 02/04/17 07:51 Glucose (Fingerstick) 162 mg/dL (70-99) 172 mg/dL (70-99) Troponin I Quantitative 0.021 ng/mL (0.000-0.055) 0.031 ng/mL (0.000-0.055) Test 02/04/17 11:02 Glucose (Fingerstick) 290 mg/dL (70-99) Assessment/Plan Assessment/Plan This patient comes in after a syncopal episode that to me is probably secondary to hypotension therefore I would like to decrease her blood pressure medications and also decrease her diuretics. She is feeling much better today and I think that she may be able to go home to be followed as an outpatient. Thank you very much for asking me to participate in the care of this patient JON WEAVER MD February 04, 2017 15:46
[2017-02-04] MEDS ORDERED: LISI10TA2 PO (16:38)
[2017-02-04] MEDS ORDERED: METO25TA4 PO (16:38)
--- NOTE | 2017-02-07 23:15 | DS ---
DATE OF DISCHARGE: 02/04/2017 CHIEF COMPLAINT: Syncope. HOSPITAL COURSE: The patient is a 56-year-old woman well known with multiple admissions in various hospitals in town who presented to the Emergency Room with syncopal episode. She was admitted for further evaluation. She was seen by Dr. Major from Cardiology. She was essentially asymptomatic ruled out for ACS. Blood sugars were addressed with insulin sliding scale and home medications. With complete asymptomatic state, she was discharged on 02/04 to home. DISCHARGE DATE: 02/04/17. DISCHARGE PHYSICAL EXAMINATION: VITAL SIGNS: From today show a blood pressure of 108/51, heart rate of 71, respiratory rate at 20. She is afebrile. GENERAL: This is a massively obese 56-year-old woman, alert and oriented, in no acute distress. HEENT: Shows no scleral icterus. NECK: Supple. LUNGS: Clear. HEART: Regular rate and rhythm. ABDOMEN: Has positive bowel sounds. EXTREMITIES: Show no edema. DISCHARGE DISPOSITION: To home. DISCHARGE CONDITION: Improved. DISCHARGE DIAGNOSES: Syncope, hyperglycemia. DISCHARGE MEDICATIONS: Please refer to MAR. DISCHARGE INSTRUCTIONS: The patient will follow up with her PCP JAIME. NICHOLAS JUNG MD DR: UR/nts JOB#: [id number] / [id number] JOSE Moran MD MTDD
== END 2017-02-04 18:15 | disposition home or self-care (01) | DRG 74 ==
LOC: ER 15:55 → 2 SOUTH 16:19
PROVIDERS: ADMIT Internal Medicine; ATTEND Internal Medicine
DX: G90.8 Other disorders of autonomic nervous system (principal); E78.5 Hyperlipidemia, unspecified; E86.0 Dehydration; I11.0 Hypertensive heart disease with heart failure; F32.9 Major depressive disorder, single episode, unspecified; I25.10 Atherosclerotic heart disease of native coronary artery without angina pectoris; I50.9 Heart failure, unspecified; J44.9 Chronic obstructive pulmonary disease, unspecified; M10.9 Gout, unspecified; G89.29 Other chronic pain; G62.9 Polyneuropathy, unspecified; Z79.01 Long term (current) use of anticoagulants; Z82.49 Family history of ischemic heart disease and other diseases of the circulatory system; Z86.711 Personal history of pulmonary embolism; Z86.73 Personal history of transient ischemic attack (TIA), and cerebral infarction without residual deficits; Z83.3 Family history of diabetes mellitus; Z90.49 Acquired absence of other specified parts of digestive tract; Z90.710 Acquired absence of both cervix and uterus; E11.65 Type 2 diabetes mellitus with hyperglycemia
CPT/HCPCS: 36415; 71010; 78582; 80053; 82550; 82553; 82947; 83690; 83735; 83880; 84443; 84484; 85027; 85610; 93005; 94250; 94640; 96360; 96374; A9540; A9558; J1650; J1815; J7030; J7620; 99285-25

== ENCOUNTER → 2017-02-06 | Outpatient (CLI) | payer OTHER, MEDICARE ==
[2017-02-04 11:03] VITALS: BP 108/51
[~2017-02-06] MED LIST changes: +LISI10TA2 PO
[2017-02-06 14:00] LABS: HEMOGLOBIN 12.6 g/dL (12.0-15.5)
[2017-02-06 14:04] LABS: BILIRUBIN,URINE NEGATIVE (NEG); GLUCOSE,URINE 100 mg/dL (NEG); NITRITE,URINE NEGATIVE (NEG); PROTEIN,URINE NEGATIVE (NEG-TRACE); UROBILINOGEN,URINE 0.2 mg/dL (0.2 mg/dL)
[2017-02-06 14:17] LABS: ALBUMIN 3.2 g/dL (3.4-5.0); CALCIUM 9.3 mg/dL (8.5-10.1); CREATININE 1.3 mg/dL (0.6-1.0); GFR 42.7; MAGNESIUM 1.4 mg/dL (1.8-2.4); POTASSIUM 4.1 mmol/L (3.5-5.1); URIC ACID 9.8 mg/dL (2.6-6.0)
[2017-02-06 14:19] LABS: BACTERIA,URINE 0 /HPF (0-FEW); RBC,URINE 0 /HPF (0-2); SQUAMOUS EPITHELIAL CELL,UR OCC /LPF; WBC,URINE OCC /HPF (0-4)
--- NOTE | 2017-02-06 14:39 | RAD ---
Examination: Ultrasound kidneys History: History of stage III chronic kidney disease Comparison: None available Findings: The right kidney measures 12.6 x 4.2 x 4.5 cm. The left kidney measures 12.2 x 6.2 x 4.8 cm. No evidence of hydronephrosis. The urinary bladder is mildly distended. Impression: Unremarkable exam
[2017-02-07 05:15] LABS: PTH INTACT 42 pg/mL (15-65); UR PROTEIN RD 13.1 mg/dL (Not Estab.)
== END | disposition home or self-care (01) ==
LOC: US 14:59
PROVIDERS: ATTEND Internal Medicine Nephrology
DX: I12.9 Hypertensive chronic kidney disease with stage 1 through stage 4 chronic kidney disease, or unspecified chronic kidney disease (principal); N18.3 Chronic kidney disease, stage 3 (moderate); R60.0 Localized edema; J44.9 Chronic obstructive pulmonary disease, unspecified; E11.22 Type 2 diabetes mellitus with diabetic chronic kidney disease; I50.9 Heart failure, unspecified; Z68.43 Body mass index [BMI] 50.0-59.9, adult; Z79.4 Long term (current) use of insulin
CPT/HCPCS: 36415; 76770; 80069; 81001; 82043; 82570; 83735; 83970; 84156; 84550; 85014; 85018

== ENCOUNTER → 2017-04-27 | Outpatient (CLI) | payer OTHER ==
[2017-04-14 11:00] VITALS: BP 170/82
[~2017-04-27] MED LIST changes: +ASPI-630 PO; -ASPI81TA2 PO; +BUSP30TA PO; +CLOP75TA PO; +DOCU-109 PO; +DOXE50CA PO; +FLUT9.9S NS; +FURO40TA4 PO; -HYDR-2672 PO; +HYDR-2766 PO; +LIDO700A39 TP; -LUBI8CAP3 PO; +LUBI8CAP4 PO; +METO25TA9 PO; +OLME1TAB25 PO; -OLME1TAB5 PO; +OXYB5TAB PO; +RANO500T2 PO; +SENN-22 PO; +VENTOLIN HFA18 GM INH
== END | disposition home or self-care (01) ==
LOC: RT 13:45
PROVIDERS: ATTEND Student in an Organized Health Care Education/Training Program
DX: G47.33 Obstructive sleep apnea (adult) (pediatric) (principal)
CPT/HCPCS: G0399

== ENCOUNTER 2017-08-08 00:16 | Inpatient (IN) | payer OTHER, MEDICARE ==
[~2017-08-08] VITALS: Wt 117.4 kg
[~2017-08-08 00:16] MED LIST changes: +ALPR0.5T PO; +METO-239 PO; -METO25TA9 PO; -METO50TA2 PO; +METO50TA6 PO
[2017-08-08] MEDS ORDERED: IV NORMAL SALINE 1000ML BAG 1,000 ML IV ONE ×2 (01:00→02:30)
[2017-08-08 01:22] LABS: BASO % 1 % (0-3); EOS % 5 % (0-3); HEMATOCRIT 35.5 % (36.0-47.0); HEMOGLOBIN 11.3 g/dL (12.0-15.5); LYMPH # 3.2 x10^3/uL (1.0-4.8); LYMPH % 40 % (24-48); MEAN CORPUSCULAR HEMOGLOBIN 26 pg (25-35); MEAN CORPUSCULAR HGB CONC 32 g/dL (31-37); MEAN CORPUSCULAR VOLUME 82 fL (79-100); MONO % 8 % (0-9); NEUT % 47 % (31-73); PLATELET COUNT 279 x10^3/uL (140-400); RED BLOOD COUNT 4.32 x10^6/uL (3.50-5.40); RED CELL DISTRIBUTION WIDTH 15.8 % (11.5-14.5); WHITE BLOOD COUNT 8.1 x10^3/uL (4.0-11.0)
[2017-08-08 01:37] LABS: BILIRUBIN,URINE NEGATIVE (NEG); GLUCOSE,URINE >=1000 mg/dL (NEG); NITRITE,URINE NEGATIVE (NEG); PH,URINE 5.5; PROTEIN,URINE NEGATIVE (NEG-TRACE); UROBILINOGEN,URINE 0.2 mg/dL (0.2 mg/dL)
[2017-08-08 01:42] LABS: BACTERIA,URINE FEW /HPF (0-FEW); RBC,URINE OCC /HPF (0-2); SQUAMOUS EPITHELIAL CELL,UR MOD /LPF
[2017-08-08 01:43] LABS: YEAST,URINE PRESENT /HPF
[2017-08-08 01:50] LABS: ALBUMIN/GLOBULIN RATIO 0.8 (1.0-1.7); CALCIUM 9.1 mg/dL (8.5-10.1); CREATININE 1.7 mg/dL (0.6-1.0); GFR 31.2; POTASSIUM 4.4 mmol/L (3.5-5.1); TOTAL BILIRUBIN 0.2 mg/dL (0.2-1.0)
[2017-08-08] MEDS ORDERED: ONDANSETRON PF 4 MG/2 ML VIAL. IV PRN (02:15)
[2017-08-08] MEDS ORDERED: DEXTROSE 50% 25 GM / 50ML DISP.SYRIN. IV PRN (02:15)
[2017-08-08] MEDS ORDERED: ACETAMINOPHEN 325 MG TABLET. PO PRN (02:15)
--- NOTE | 2017-08-08 02:25 | PHYS DOC ---
Past Medical History Past Medical History: A-Fib, CHF, COPD, CVA, Diabetes-Type II, Heart Disease, Hypertension, [place], Renal Disease, Stroke, Other Additional Past Medical Histor: morbid obesity, REFLEX SYNTHEIC DISTROPHY, SEPSIS Past Surgical History: Angioplasty, Appendectomy, Cholecystectomy, Hysterectomy , Other Additional Past Surgical Histo: thoractomy, lumpectomy, exploratory surgery, hernia, bladder sling Alcohol Use: None Drug Use: None Adult General Chief Complaint Chief Complaint: DIZZY/LIGHT HEADED HPI HPI Patient is a 57 year old female who has a history significant for atrial fibrillation, insulin-dependent diabetes, hypertension, presents here today complaining of dizziness 1-2 days. Patient denies any fevers shakes chills, nausea vomiting diarrhea, abdominal pain, chest pain, cough, double vision, blurred vision, weakness to her upper or lower extremities. Patient is complaining of polyuria and polydipsia. Patient reports she's had to go the bathroom multiple times over the course of the last 24 hours. Patient reports that she has been compliant with her diabetes diet and insulin regimen. Patient reports no history of liver kidney or lung problems. Patient does have a history of COPD however. She is PCP is Dr. Blakely. Review of systems: Constitutional: Denies fever or chills Eyes: Denies change in visual acuity, redness, or eye pain HENT: Denies nasal congestion or sore throat Respiratory: Denies cough or shortness of breath Physical exam Constitutional: Well developed, well nourished, no acute distress, non-toxic appearance. HENT: Normocephalic, atraumatic, bilateral external ears normal, oropharynx moist, no oral exudates, nose normal. Eyes: PERRLA, EOMI, conjunctiva normal, no discharge. Neck: Normal range of motion, no tenderness, supple, no stridor. Cardiovascular:Heart rate regular rhythm, Lungs & Thorax: Bilateral breath sounds clear to auscultation Abdomen: Bowel sounds normal, soft, no tenderness, no masses, no pulsatile masses. Skin: Warm, dry, no erythema, no rash. Back: No tenderness, no CVA tenderness. Extremities: No tenderness, no cyanosis, no clubbing, ROM intact, no edema. Neurologic: Alert and oriented X 3, normal motor function, normal sensory function, no focal deficits noted. Psychologic: Affect normal, judgement normal, mood normal. Assessment and plan This is a 57-year-old female who presents here today secondary to dizziness. Patient's ER workup is consistent hyperglycemia is to the likely etiology of her dizziness however given her past medical history we will need to rule out other sources including cardiac etiology. Patient's blood sugar was greater than 600. Patient has been given normal saline solution 2 L as well as 10 units of insulin IV and will be admitted to the hospital for further observation of her dizziness. His EKG revealed normal sinus rhythm at a heart rate of 68. No evidence of STEMI. As interpreted by ER physician Patient reports that her blood pressure at home was low. Checked it was 74/60. Her here is been stable without any further issues. Current Medications Current Medications Current Medications Medications (Trade) Dose Ordered Sig/Jesus Manuel Start Time Stop Time Status Last Admin Dose Admin Acetaminophen (Tylenol) 650 mg PRN Q4HRS PRN 08/08/17 02:15 08/09/17 02:14 UNV Dextrose (Dextrose 50%-Water Syringe) 12.5 gm PRN Q15MIN PRN 08/08/17 02:15 UNV Insulin Aspart (NovoLOG) 0-7 UNITS TIDWMEALS 08/08/17 08:00 UNV Insulin Human Regular (NovoLIN R VIAL) 10 unit 1X ONCE 08/08/17 02:30 08/08/17 02:31 Ondansetron HCl (Zofran) 4 mg PRN Q8HRS PRN 08/08/17 02:15 08/09/17 02:14 UNV Sodium Chloride 1,000 ml @ 125 mls/hr Q8H 08/08/17 02:13 08/09/17 02:12 UNV Allergies Allergies Allergies Coded Allergies Type Severity Reaction Last Updated Verified No Known Drug Allergies 12/23/16 No Current Patient Data Vital Signs Vital Signs Date Time Temp Pulse Resp B/P (MAP) Pulse Ox O2 Delivery O2 Flow Rate FiO2 08/08/17 00:40 97.5 72 17 128/58 (81) 95 Room Air 97.5 Lab Values Laboratory Tests Test 08/08/17 01:12 08/08/17 01:28 White Blood Count 8.1 x10^3/uL (4.0-11.0) Red Blood Count 4.32 x10^6/uL (3.50-5.40) Hemoglobin 11.3 g/dL (12.0-15.5) L Hematocrit 35.5 % (36.0-47.0) L Mean Corpuscular Volume 82 fL (79-100) Mean Corpuscular Hemoglobin 26 pg (25-35) Mean Corpuscular Hemoglobin Concent 32 g/dL (31-37) Red Cell Distribution Width 15.8 % (11.5-14.5) H Platelet Count 279 x10^3/uL (140-400) Neutrophils (%) (Auto) 47 % (31-73) Lymphocytes (%) (Auto) 40 % (24-48) Monocytes (%) (Auto) 8 % (0-9) Eosinophils (%) (Auto) 5 % (0-3) H Basophils (%) (Auto) 1 % (0-3) Neutrophils # (Auto) 3.8 x10^3uL (1.8-7.7) Lymphocytes # (Auto) 3.2 x10^3/uL (1.0-4.8) Monocytes # (Auto) 0.7 x10^3/uL (0.0-1.1) Eosinophils # (Auto) 0.4 x10^3/uL (0.0-0.7) Basophils # (Auto) 0.0 x10^3/uL (0.0-0.2) Sodium Level 132 mmol/L (136-145) L Potassium Level 4.4 mmol/L (3.5-5.1) Chloride Level 94 mmol/L (98-107) L Carbon Dioxide Level 29 mmol/L (21-32) Anion Gap 9 (6-14) Blood Urea Nitrogen 26 mg/dL (7-20) H Creatinine 1.7 mg/dL (0.6-1.0) H Estimated GFR (Cockcroft-Gault) 31.2 BUN/Creatinine Ratio 15 (6-20) Glucose Level 607 mg/dL (70-99) *H Calcium Level 9.1 mg/dL (8.5-10.1) Total Bilirubin 0.2 mg/dL (0.2-1.0) Aspartate Amino Transferase (AST) 14 U/L (15-37) L Alanine Aminotransferase (ALT) 22 U/L (14-59) Alkaline Phosphatase 139 U/L (46-116) H Troponin I Quantitative < 0.017 ng/mL (0.000-0.055) Total Protein 7.0 g/dL (6.4-8.2) Albumin 3.0 g/dL (3.4-5.0) L Albumin/Globulin Ratio 0.8 (1.0-1.7) L Urine Collection Type Unknown Urine Color Yellow Urine Clarity Clear Urine pH 5.5 Urine Specific [place] >=1.030 Urine Protein Negative mg/dL (NEG-TRACE) Urine Glucose (UA) >=1000 mg/dL (NEG) Urine Ketones (Stick) Negative mg/dL (NEG) Urine Blood Negative (NEG) Urine Nitrite Negative (NEG) Urine Bilirubin Negative (NEG) Urine Urobilinogen Dipstick 0.2 mg/dL (0.2 mg/dL) Urine Leukocyte Esterase Negative (NEG) Urine RBC Occ /HPF (0-2) Urine WBC 5-10 /HPF (0-4) Urine Squamous Epithelial Cells Mod /LPF Urine Bacteria Few /HPF (0-FEW) Urine Yeast Present /HPF Laboratory Tests 08/08/17 01:12 Laboratory Tests 08/08/17 01:12 EKG EKG [] Radiology/Procedures Radiology/Procedures [] Course & Med Decision Making Course & Med Decision Making Pertinent Labs and Imaging studies reviewed. (See chart for details) [] Dragon Disclaimer Dragon Disclaimer This electronic medical record was generated, in whole or in part, using a voice recognition dictation system. Departure Departure Impression: Primary Impression: Uncontrolled diabetes mellitus Additional Impressions: Dizziness HHNC (hyperglycemic hyperosmolar nonketotic coma) Disposition: 09 ADMITTED INPATIENT Admitting Physician: Nancy Fagan Condition: IMPROVED Referrals: JOSE BLAKELY MD (PCP) Problem Qualifiers KELLIE DONG MD Aug 08, 2017 02:25
[2017-08-08] MEDS ORDERED: INSULIN REGULAR 100 UNIT/ML 10ML VIAL. IV ONE (02:30)
[2017-08-08] MEDS: IV NORMAL SALINE 1000ML BAG 1,000 ML IV SCH ×2 (04:38→12:06)
[2017-08-08] MEDS ORDERED: HYDROcodone/APAP 10/325 1 TAB TABLET PO ONE (06:00)
--- NOTE | 2017-08-08 08:06 | EKG ---
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
[2017-08-08 08:10] VITALS: BP 153/67
[2017-08-08] MEDS: INSULIN ASPART 300 UNITS/3 ML INSULN.PEN SQ SCH ×5 (09:05→17:55)
[2017-08-08 10:30] VITALS: BP 150/71
[2017-08-08] MEDS ORDERED: FUROSEMIDE 40 MG TABLET. PO PRN (11:15)
[2017-08-08] MEDS ORDERED: NITROGLYCERIN SUBLINGUAL 0.4 MG BOTTLE OF 25. SL PRN (11:15)
[2017-08-08] MEDS ORDERED: LIDOCAINE (700MG/PATCH) PATCH. TP PRN (11:15)
[2017-08-08] MEDS ORDERED: ALPRAZolam 0.5 MG TABLET PO PRN (11:15)
[2017-08-08] MEDS ORDERED: NON FORMULARY ITEM (Albuterol Sulfate (Ventolin Hfa Inhaler) 2 PUFF) INH PRN (11:15)
[2017-08-08] MEDS ORDERED: ALBUTEROL SULFATE 2.5 MG/3 ML NEBU. NEB PRN (11:30)
[2017-08-08] MEDS: INSULIN DETEMIR 300 UNITS/3 ML INSULN.PEN. SQ SCH ×2 (12:00→20:51)
[2017-08-08] MEDS: OXYBUTYNIN CHLORIDE 5 MG TABLET PO SCH (12:08)
[2017-08-08] MEDS: METOPROLOL SUCC 24HR ER 50 MG TAB.ER.24H. PO SCH (12:08)
[2017-08-08] MEDS: LUBIPROSTONE 8 MCG CAPSULE PO SCH ×2 (12:08→16:57)
[2017-08-08] MEDS: LEVOTHYROXINE 50 MCG TABLET PO SCH (12:08)
[2017-08-08] MEDS: APIXABAN 5 MG TABLET. PO SCH ×2 (12:08→20:35)
[2017-08-08] MEDS: SENNOSIDES/DOCUSATE 8.6/50MG TABLET. PO SCH ×2 (12:08→20:35)
[2017-08-08] MEDS: ASPIRIN CHEWABLE 81 MG TABLET. PO SCH (12:08)
[2017-08-08] MEDS: PREGABALIN 75 MG CAPSULE PO SCH ×2 (12:09→20:35)
[2017-08-08] MEDS: RANOLAZINE 500 MG TAB.ER.12H PO SCH ×2 (12:09→20:34)
[2017-08-08] MEDS: HYDROcodone/APAP 10/325 1 TAB TABLET PO PRN ×2 (12:10→23:03)
[2017-08-08 14:30] VITALS: BP 114/63
[2017-08-08] MEDS: ANTI-COAG MONITOR BY PHARMACY. MC PRN (16:07)
[2017-08-08] MEDS: PANTOPRAZOLE 40 MG TABLET.DR. PO SCH (16:57)
[2017-08-08] MEDS: busPIRone 10 MG TABLET. PO SCH (16:57)
[2017-08-08] MEDS: NYSTATIN TOPICAL POWDER 15GM BOTTLE. TP SCH ×2 (16:58→20:32)
--- NOTE | 2017-08-08 17:56 | HP ---
ADMIT DATE: 08/08/2017 CHIEF COMPLAINT: Dizziness. HISTORY OF PRESENT ILLNESS: The patient is a 57-year-old morbidly obese woman with past medical history of diabetes type 2, COPD, CAD, CHF, AFib, and multiple other issues, who presented to the Emergency Room with dizziness for the past couple of days or so. She denies any fevers, chills, nausea, vomiting, diarrhea, any chest pain, cough or other symptoms. On specific questioning, however, she relates that she has been peeing a lot as well as drinking. She has been taking all her diabetic medications including short and long-acting insulin. She, however, ran out of her testing strips about a week ago and has not kept up with her blood sugar measurements. In the past, however, her blood sugars typically have been in the 100-200 range. In the Emergency Room, she was found with a blood sugar of greater than 600. She was given 2 liters of IV normal saline and her dizziness resolved. She is now admitted for further management and workup. PAST MEDICAL HISTORY: Diabetes mellitus type 2, CAD, CHF, AFib, CVA, hypertension, chronic renal disease, morbid obesity, reflex sympathetic dystrophy, status post multiple surgeries. FAMILY HISTORY: Coronary artery disease, diabetes. SOCIAL HISTORY: Lives with her family. No toxic habits. ALLERGIES: No known drug allergies. MEDICATIONS: MAR reconciled with home medications. REVIEW OF SYSTEMS: Positive essentially only as mentioned per HPI. Rest of organ system review is negative. She has noted some swelling, which is chronic for her and she takes p.r.n. Lasix. PHYSICAL EXAMINATION: VITAL SIGNS: From today show a blood pressure of 150/71, heart rate of 74, respiratory rate at 18. She is afebrile. GENERAL: This is a massively obese 57-year-old woman, alert and oriented, in no acute distress. HEENT: Shows no scleral icterus. NECK: Supple, without any lymphadenopathy. LUNGS: Clear bilaterally. Distant breath sounds. ABDOMEN: Massively obese, positive bowel sounds. Organs could not be palpated. EXTREMITIES: Show 1+ pitting edema. Mild chronic venous stasis skin changes. LABORATORY DATA: CBC with a WBC of 8.1, hemoglobin 11.3, platelets of 279. Chemistries with a BUN and creatinine of 26 and 1.7. Of note, creatinine for her typically is 1.2-1.5. Electrolytes with a sodium of 132. LFTs essentially within normal limits. Glucose at 607. Troponins negative. Albumin 3.0. UA negative for infectious signs. Specific gravity is greater than 1.030 and glucose greater than 1000, protein negative. ASSESSMENT AND PLAN: The patient is a 57-year-old woman presenting with dizziness, possibly secondary to dehydration due to a massive hyperglycemia. She appeared dehydrated by labs. She received 2+ liters already in the Emergency Room. We will have to slow this down as she does have a history of CHF with mild diastolic dysfunction only. We will monitor her respiratory status. For now, we will try and get her blood sugars under control. Her home medications have been modified, insulin sliding scale has been added. I suspect she will need adjustment to her meds. Hemoglobin A1c is pending. She denies any cardiac symptoms at this time. She does have multiple cardiac issues. We will continue all her cardiac and secondary prevention medications. The patient does have a history of obstructive sleep apnea, but does not have a CPAP at home. Also, has history of COPD exacerbations. However, respiratory status at this hospitalization appears fairly stable. We will continue home medications, oxygen at night. She is on medications for her diabetic neuropathy. This will be continued as well as all her other home medications including hypothyroidism and GERD. NICHOLAS JUNG MD DR: UR/nts JOB#: [id number] / [id number] JOSE Moran MD
[2017-08-08 19:00] VITALS: BP 106/52
[2017-08-08] MEDS: ATORVASTATIN CALCIUM 20 MG TABLET PO SCH (20:35)
[2017-08-08] MEDS: DOCUSATE SODIUM 100 MG CAPSULE. PO SCH (20:35)
[2017-08-08] MEDS ORDERED: DOXEPIN HCL 25 MG CAPSULE. PO PRN (21:00)
[2017-08-08 23:00] VITALS: BP 108/58
[2017-08-08] MEDS ORDERED: tiZANidine 4 MG TABLET. PO PRN (23:00)
[2017-08-09 03:00] VITALS: BP 115/60
[2017-08-09 06:28] LABS: BASO # 0.1 x10^3/uL (0.0-0.2); BASO % 1 % (0-3); EOS % 8 % (0-3); HEMATOCRIT 33.9 % (36.0-47.0); HEMOGLOBIN 10.9 g/dL (12.0-15.5); LYMPH # 3.1 x10^3/uL (1.0-4.8); LYMPH % 36 % (24-48); MEAN CORPUSCULAR HEMOGLOBIN 26 pg (25-35); MEAN CORPUSCULAR HGB CONC 32 g/dL (31-37); MEAN CORPUSCULAR VOLUME 81 fL (79-100); MONO % 8 % (0-9); NEUT % 48 % (31-73); PLATELET COUNT 262 x10^3/uL (140-400); RED BLOOD COUNT 4.17 x10^6/uL (3.50-5.40); RED CELL DISTRIBUTION WIDTH 15.4 % (11.5-14.5); WHITE BLOOD COUNT 8.5 x10^3/uL (4.0-11.0)
[2017-08-09 06:36] LABS: ALBUMIN 2.5 g/dL (3.4-5.0); ALBUMIN/GLOBULIN RATIO 0.7 (1.0-1.7); CALCIUM 8.5 mg/dL (8.5-10.1); CREATININE 1.2 mg/dL (0.6-1.0); GFR 46.6; POTASSIUM 4.3 mmol/L (3.5-5.1); TOTAL BILIRUBIN 0.3 mg/dL (0.2-1.0)
[2017-08-09] MEDS: LEVOTHYROXINE 50 MCG TABLET PO SCH (06:41)
[2017-08-09 07:00] VITALS: BP 116/51
[2017-08-09] MEDS: LUBIPROSTONE 8 MCG CAPSULE PO SCH ×2 (08:20→16:51)
[2017-08-09] MEDS: OXYBUTYNIN CHLORIDE 5 MG TABLET PO SCH (08:21)
[2017-08-09] MEDS: METOPROLOL SUCC 24HR ER 50 MG TAB.ER.24H. PO SCH (08:21)
[2017-08-09] MEDS: RANOLAZINE 500 MG TAB.ER.12H PO SCH ×2 (08:21→21:48)
[2017-08-09] MEDS: PANTOPRAZOLE 40 MG TABLET.DR. PO SCH ×2 (08:21→16:51)
[2017-08-09] MEDS: SENNOSIDES/DOCUSATE 8.6/50MG TABLET. PO SCH ×2 (08:22→21:48)
[2017-08-09] MEDS: APIXABAN 5 MG TABLET. PO SCH ×2 (08:22→21:43)
[2017-08-09] MEDS: DOCUSATE SODIUM 100 MG CAPSULE. PO SCH ×2 (08:22→21:43)
[2017-08-09] MEDS: PREGABALIN 75 MG CAPSULE PO SCH ×2 (08:22→21:43)
[2017-08-09] MEDS: ASPIRIN CHEWABLE 81 MG TABLET. PO SCH (08:22)
[2017-08-09] MEDS: INSULIN ASPART 300 UNITS/3 ML INSULN.PEN SQ SCH ×6 (08:28→16:58)
[2017-08-09] MEDS: INSULIN DETEMIR 300 UNITS/3 ML INSULN.PEN. SQ SCH ×2 (08:30→21:55)
[2017-08-09] MEDS: NYSTATIN TOPICAL POWDER 15GM BOTTLE. TP SCH ×2 (09:00→21:00)
[2017-08-09] MEDS ORDERED: FLUTICASONE 50MCG/NASAL SPRAY 16GM BOTTLE. NS PRN (09:00)
[2017-08-09 11:00] VITALS: BP 124/49
[2017-08-09] MEDS ORDERED: MORPHINE SULFATE 4 MG/ML DISP.SYRIN. IV PRN (12:00)
[2017-08-09] MEDS ORDERED: ACETAMINOPHEN 325 MG TABLET. PO PRN (12:00)
[2017-08-09] MEDS ORDERED: FUROSEMIDE 40 MG TABLET. PO ONE (12:00)
[2017-08-09] MEDS ORDERED: DOCUSATE SODIUM 100 MG CAPSULE. PO PRN (12:00)
[2017-08-09] MEDS ORDERED: hydrALAZINE 20 MG/ML VIAL. IVP PRN (12:00)
[2017-08-09] MEDS ORDERED: traMADol 50 MG TABLET PO PRN (12:00)
[2017-08-09] MEDS ORDERED: ONDANSETRON PF 4 MG/2 ML VIAL. IV PRN (12:00)
--- NOTE | 2017-08-09 14:12 | PDOC ---
PROGRESS NOTES Chief Complaint Chief Complaint lightheaded uncontrolled DM2 , hba1c 13, no DKA, NO HONK h/o CAD with 7stents stable chronic diastolic CHF EF 605 PAFIB ON ELIQUIS H/O dvt, PE h/o CVA htn ckd3 morbid obesity JENNIFER ,dehydration, vasomotor mild malnutrition, chronic dz plan: increase insulin to levemir 55u bid, cont aspart 30u tid for now, SSI cont home meds eliquis ptot check orthostatic BP lasix po 40mg x1 History of Present Illness History of Present Illness ROS: no fever, chills, sob or chest pain bl distal ext mild edema hyperglycemia Vitals Vitals Vital Signs Date Time Temp Pulse Resp B/P (MAP) Pulse Ox O2 Delivery O2 Flow Rate FiO2 08/09/17 11:00 97.5 64 20 124/49 (74) 94 Nasal Cannula 97.5 08/09/17 08:00 2.0 Physical Exam General: Alert, Oriented X3, Cooperative Heart: Regular rate, Normal S1, Normal S2 Lungs: Wheezing (left basilar mild), Crackles, Other Abdomen: Normal bowel sounds, Soft Extremities: No clubbing, No cyanosis, Other (bl hand and leg 1+ edema) Skin: No rashes Labs LABS Laboratory Tests Test 08/08/17 16:19 08/08/17 20:39 08/09/17 05:35 08/09/17 08:15 Glucose (Fingerstick) 262 mg/dL (70-99) 225 mg/dL (70-99) 272 mg/dL (70-99) White Blood Count 8.5 x10^3/uL (4.0-11.0) Red Blood Count 4.17 x10^6/uL (3.50-5.40) Hemoglobin 10.9 g/dL (12.0-15.5) Hematocrit 33.9 % (36.0-47.0) Mean Corpuscular Volume 81 fL (79-100) Mean Corpuscular Hemoglobin 26 pg (25-35) Mean Corpuscular Hemoglobin Concent 32 g/dL (31-37) Red Cell Distribution Width 15.4 % (11.5-14.5) Platelet Count 262 x10^3/uL (140-400) Neutrophils (%) (Auto) 48 % (31-73) Lymphocytes (%) (Auto) 36 % (24-48) Monocytes (%) (Auto) 8 % (0-9) Eosinophils (%) (Auto) 8 % (0-3) Basophils (%) (Auto) 1 % (0-3) Neutrophils # (Auto) 4.0 x10^3uL (1.8-7.7) Lymphocytes # (Auto) 3.1 x10^3/uL (1.0-4.8) Monocytes # (Auto) 0.7 x10^3/uL (0.0-1.1) Eosinophils # (Auto) 0.6 x10^3/uL (0.0-0.7) Basophils # (Auto) 0.1 x10^3/uL (0.0-0.2) Sodium Level 138 mmol/L (136-145) Potassium Level 4.3 mmol/L (3.5-5.1) Chloride Level 103 mmol/L (98-107) Carbon Dioxide Level 27 mmol/L (21-32) Anion Gap 8 (6-14) Blood Urea Nitrogen 22 mg/dL (7-20) Creatinine 1.2 mg/dL (0.6-1.0) Estimated GFR (Cockcroft-Gault) 46.6 BUN/Creatinine Ratio 18 (6-20) Glucose Level 203 mg/dL (70-99) Hemoglobin A1c 13.2 % (4.8-5.6) Calcium Level 8.5 mg/dL (8.5-10.1) Total Bilirubin 0.3 mg/dL (0.2-1.0) Aspartate Amino Transf (AST/SGOT) 16 U/L (15-37) Alanine Aminotransferase (ALT/SGPT) 20 U/L (14-59) Alkaline Phosphatase 124 U/L (46-116) Total Protein 6.0 g/dL (6.4-8.2) Albumin 2.5 g/dL (3.4-5.0) Albumin/Globulin Ratio 0.7 (1.0-1.7) Test 08/09/17 11:37 Glucose (Fingerstick) 246 mg/dL (70-99) Assessment and Plan Assessmemt and Plan Problems: Comment Review of Relevant I have reviewed the following items jim (where applicable) has been applied. Labs Laboratory Tests Test 08/08/17 01:12 08/08/17 01:28 08/08/17 03:13 08/08/17 08:28 White Blood Count 8.1 x10^3/uL (4.0-11.0) Red Blood Count 4.32 x10^6/uL (3.50-5.40) Hemoglobin 11.3 g/dL (12.0-15.5) Hematocrit 35.5 % (36.0-47.0) Mean Corpuscular Volume 82 fL (79-100) Mean Corpuscular Hemoglobin 26 pg (25-35) Mean Corpuscular Hemoglobin Concent 32 g/dL (31-37) Red Cell Distribution Width 15.8 % (11.5-14.5) Platelet Count 279 x10^3/uL (140-400) Neutrophils (%) (Auto) 47 % (31-73) Lymphocytes (%) (Auto) 40 % (24-48) Monocytes (%) (Auto) 8 % (0-9) Eosinophils (%) (Auto) 5 % (0-3) Basophils (%) (Auto) 1 % (0-3) Neutrophils # (Auto) 3.8 x10^3uL (1.8-7.7) Lymphocytes # (Auto) 3.2 x10^3/uL (1.0-4.8) Monocytes # (Auto) 0.7 x10^3/uL (0.0-1.1) Eosinophils # (Auto) 0.4 x10^3/uL (0.0-0.7) Basophils # (Auto) 0.0 x10^3/uL (0.0-0.2) Sodium Level 132 mmol/L (136-145) Potassium Level 4.4 mmol/L (3.5-5.1) Chloride Level 94 mmol/L (98-107) Carbon Dioxide Level 29 mmol/L (21-32) Anion Gap 9 (6-14) Blood Urea Nitrogen 26 mg/dL (7-20) Creatinine 1.7 mg/dL (0.6-1.0) Estimated GFR (Cockcroft-Gault) 31.2 BUN/Creatinine Ratio 15 (6-20) Glucose Level 607 mg/dL (70-99) Calcium Level 9.1 mg/dL (8.5-10.1) Total Bilirubin 0.2 mg/dL (0.2-1.0) Aspartate Amino Transf (AST/SGOT) 14 U/L (15-37) Alanine Aminotransferase (ALT/SGPT) 22 U/L (14-59) Alkaline Phosphatase 139 U/L (46-116) Troponin I Quantitative < 0.017 ng/mL (0.000-0.055) Total Protein 7.0 g/dL (6.4-8.2) Albumin 3.0 g/dL (3.4-5.0) Albumin/Globulin Ratio 0.8 (1.0-1.7) Urine Collection Type Unknown Urine Color Yellow Urine Clarity Clear Urine pH 5.5 Urine Specific [place] >=1.030 Urine Protein Negative mg/dL (NEG-TRACE) Urine Glucose (UA) >=1000 mg/dL (NEG) Urine Ketones (Stick) Negative mg/dL (NEG) Urine Blood Negative (NEG) Urine Nitrite Negative (NEG) Urine Bilirubin Negative (NEG) Urine Urobilinogen Dipstick 0.2 mg/dL (0.2 mg/dL) Urine Leukocyte Esterase Negative (NEG) Urine RBC Occ /HPF (0-2) Urine WBC 5-10 /HPF (0-4) Urine Squamous Epithelial Cells Mod /LPF Urine Bacteria Few /HPF (0-FEW) Urine Yeast Present /HPF Glucose (Fingerstick) 419 mg/dL (70-99) 466 mg/dL (70-99) Test 08/08/17 11:46 08/08/17 12:02 08/08/17 16:19 08/08/17 20:39 Glucose (Fingerstick) 459 mg/dL (70-99) 373 mg/dL (70-99) 262 mg/dL (70-99) 225 mg/dL (70-99) Test 08/09/17 05:35 08/09/17 08:15 08/09/17 11:37 White Blood Count 8.5 x10^3/uL (4.0-11.0) Red Blood Count 4.17 x10^6/uL (3.50-5.40) Hemoglobin 10.9 g/dL (12.0-15.5) Hematocrit 33.9 % (36.0-47.0) Mean Corpuscular Volume 81 fL (79-100) Mean Corpuscular Hemoglobin 26 pg (25-35) Mean Corpuscular Hemoglobin Concent 32 g/dL (31-37) Red Cell Distribution Width 15.4 % (11.5-14.5) Platelet Count 262 x10^3/uL (140-400) Neutrophils (%) (Auto) 48 % (31-73) Lymphocytes (%) (Auto) 36 % (24-48) Monocytes (%) (Auto) 8 % (0-9) Eosinophils (%) (Auto) 8 % (0-3) Basophils (%) (Auto) 1 % (0-3) Neutrophils # (Auto) 4.0 x10^3uL (1.8-7.7) Lymphocytes # (Auto) 3.1 x10^3/uL (1.0-4.8) Monocytes # (Auto) 0.7 x10^3/uL (0.0-1.1) Eosinophils # (Auto) 0.6 x10^3/uL (0.0-0.7) Basophils # (Auto) 0.1 x10^3/uL (0.0-0.2) Sodium Level 138 mmol/L (136-145) Potassium Level 4.3 mmol/L (3.5-5.1) Chloride Level 103 mmol/L (98-107) Carbon Dioxide Level 27 mmol/L (21-32) Anion Gap 8 (6-14) Blood Urea Nitrogen 22 mg/dL (7-20) Creatinine 1.2 mg/dL (0.6-1.0) Estimated GFR (Cockcroft-Gault) 46.6 BUN/Creatinine Ratio 18 (6-20) Glucose Level 203 mg/dL (70-99) Hemoglobin A1c 13.2 % (4.8-5.6) Calcium Level 8.5 mg/dL (8.5-10.1) Total Bilirubin 0.3 mg/dL (0.2-1.0) Aspartate Amino Transf (AST/SGOT) 16 U/L (15-37) Alanine Aminotransferase (ALT/SGPT) 20 U/L (14-59) Alkaline Phosphatase 124 U/L (46-116) Total Protein 6.0 g/dL (6.4-8.2) Albumin 2.5 g/dL (3.4-5.0) Albumin/Globulin Ratio 0.7 (1.0-1.7) Glucose (Fingerstick) 272 mg/dL (70-99) 246 mg/dL (70-99) Laboratory Tests Test 08/08/17 16:19 08/08/17 20:39 08/09/17 05:35 08/09/17 08:15 Glucose (Fingerstick) 262 mg/dL (70-99) 225 mg/dL (70-99) 272 mg/dL (70-99) White Blood Count 8.5 x10^3/uL (4.0-11.0) Red Blood Count 4.17 x10^6/uL (3.50-5.40) Hemoglobin 10.9 g/dL (12.0-15.5) Hematocrit 33.9 % (36.0-47.0) Mean Corpuscular Volume 81 fL (79-100) Mean Corpuscular Hemoglobin 26 pg (25-35) Mean Corpuscular Hemoglobin Concent 32 g/dL (31-37) Red Cell Distribution Width 15.4 % (11.5-14.5) Platelet Count 262 x10^3/uL (140-400) Neutrophils (%) (Auto) 48 % (31-73) Lymphocytes (%) (Auto) 36 % (24-48) Monocytes (%) (Auto) 8 % (0-9) Eosinophils (%) (Auto) 8 % (0-3) Basophils (%) (Auto) 1 % (0-3) Neutrophils # (Auto) 4.0 x10^3uL (1.8-7.7) Lymphocytes # (Auto) 3.1 x10^3/uL (1.0-4.8) Monocytes # (Auto) 0.7 x10^3/uL (0.0-1.1) Eosinophils # (Auto) 0.6 x10^3/uL (0.0-0.7) Basophils # (Auto) 0.1 x10^3/uL (0.0-0.2) Sodium Level 138 mmol/L (136-145) Potassium Level 4.3 mmol/L (3.5-5.1) Chloride Level 103 mmol/L (98-107) Carbon Dioxide Level 27 mmol/L (21-32) Anion Gap 8 (6-14) Blood Urea Nitrogen 22 mg/dL (7-20) Creatinine 1.2 mg/dL (0.6-1.0) Estimated GFR (Cockcroft-Gault) 46.6 BUN/Creatinine Ratio 18 (6-20) Glucose Level 203 mg/dL (70-99) Hemoglobin A1c 13.2 % (4.8-5.6) Calcium Level 8.5 mg/dL (8.5-10.1) Total Bilirubin 0.3 mg/dL (0.2-1.0) Aspartate Amino Transf (AST/SGOT) 16 U/L (15-37) Alanine Aminotransferase (ALT/SGPT) 20 U/L (14-59) Alkaline Phosphatase 124 U/L (46-116) Total Protein 6.0 g/dL (6.4-8.2) Albumin 2.5 g/dL (3.4-5.0) Albumin/Globulin Ratio 0.7 (1.0-1.7) Test 08/09/17 11:37 Glucose (Fingerstick) 246 mg/dL (70-99) Medications Current Medications Sodium Chloride 1,000 ml @ 1,000 mls/hr 1X ONCE IV Last administered on 08/08 01:34; Start 08/08/17 at 01:00; Stop 08/08/17 at 01:59; Status DC Sodium Chloride 1,000 ml @ 1,000 mls/hr 1X ONCE IV Last administered on 08/08 02:26; Start 08/08/17 at 02:30; Stop 08/08/17 at 03:29; Status DC Insulin Human Regular (NovoLIN R VIAL) 10 unit 1X ONCE IV Last administered on 08/08/17 02:39; Start 08/08/17 at 02:30; Stop 08/08/17 at 02:31; Status DC Ondansetron HCl (Zofran) 4 mg PRN Q8HRS PRN IV NAUSEA/VOMITING; Start at 02:15; Stop 08/09/17 at 02:14; Status DC Sodium Chloride 1,000 ml @ 125 mls/hr Q8H IV Last administered on 08/08/17 12:06; Start 08/08/17 at 02:30; Stop 08/08/17 at 17:20; Status DC Acetaminophen (Tylenol) 650 mg PRN Q4HRS PRN PO FEVER; Start 08/08/17 at 02:15 ; Stop 08/09/17 at 02:14; Status DC Insulin Aspart (NovoLOG) 0-7 UNITS TIDWMEALS SQ Last administered on 11:58; Start 08/08/17 at 08:00 Dextrose (Dextrose 50%-Water Syringe) 12.5 gm PRN Q15MIN PRN IV SEE COMMENTS; Start 08/08/17 at 02:15 Acetaminophen/ Hydrocodone Bitart (Lortab 10/325) 1 tab 1X ONCE PO Last administered on 08/08/17 05:30; Start 08/08/17 at 06:00; Stop 08/08/17 at 06 :01; Status DC Alprazolam (Xanax) 0.5 mg PRN Q6HRS PRN PO ANXIETY / AGITATION; Start at 11:15 Apixaban (Eliquis) 5 mg BID PO Last administered on 08/09/17 08:22; Start at 12:00 Aspirin (Children'S Aspirin) 81 mg DAILY PO Last administered on 08/09/17 08: 22; Start 08/08/17 at 12:00 Atorvastatin Calcium (Lipitor) 40 mg QHS PO Last administered on 08/08/17 20: 35; Start 08/08/17 at 21:00 Docusate Sodium (Colace) 100 mg BID PO Last administered on 08/09/17 08:22; Start 08/08/17 at 21:00 Furosemide (Lasix) 40 mg PRN DAILY PRN PO swelling; Start 08/08/17 at 11:15 Acetaminophen/ Hydrocodone Bitart (Lortab 10/325) 1 tab PRN Q4HRS PRN PO PAIN Last administered on 08/08/17 23:03; Start 08/08/17 at 11:15 Albuterol Sulfate (Ventolin Neb Soln) 2.5 mg PRN QID PRN NEB SHORTNESS OF BREATH; Start 08/08/17 at 11:30 Levothyroxine Sodium (Synthroid) 50 mcg DAILY07 PO Last administered on 06:41; Start 08/08/17 at 12:00 Lidocaine (Lidoderm) 1 patch PRN DAILY PRN TP PAIN; Start 08/08/17 at 11:15 Lubiprostone (Amitiza) 8 mcg BIDWMEALS PO Last administered on 08/09/17 08:20 ; Start 08/08/17 at 12:00 Metoprolol Succinate (Toprol Xl) 50 mg DAILY PO Last administered on 08:21; Start 08/08/17 at 12:00 Nitroglycerin (Nitrostat) 0.4 mg PRN Q5MIN PRN SL CP RATING > 1/10; Start at 11:15 Ranolazine (Ranexa) 500 mg BID PO Last administered on 08/09/17 08:21; Start 08/08/17 at 12:00 Senna/Docusate Sodium (Senna Plus) 1 tab BID PO Last administered on 08:22; Start 08/08/17 at 12:00 Non-Formulary Medication 2 puff PRN Q4HRS PRN INH SHORTNESS OF BREATH; Start 08/08/17 at 11:15; Status UNV Buspirone HCl (Buspar) 30 mg DAILY16 PO Last administered on 08/08/17 16:57; Start 08/08/17 at 16:00 Doxepin HCl (SINEquan) 50 mg PRN QHS PRN PO INSOMNIA; Start 08/08/17 at 21:00 Pantoprazole Sodium (Protonix) 40 mg BIDAC PO Last administered on 08/09/17 08:21; Start 08/08/17 at 16:30 Fluticasone Propionate (Flonase) 2 spray PRN DAILY PRN NS ALLERIGES; Start at 09:00 Oxybutynin Chloride (Ditropan) 5 mg DAILY PO Last administered on 08/09/17 08 :21; Start 08/08/17 at 12:00 Pregabalin (Lyrica) 150 mg BID PO Last administered on 08/09/17 08:22; Start 08/08/17 at 11:30 Insulin Detemir (Levemir) 45 units BID SQ Last administered on 08/09/17 08:30 ; Start 08/08/17 at 12:00; Stop 08/09/17 at 11:57; Status DC Insulin Aspart (NovoLOG) 30 units TIDAC SQ Last administered on 08/09/17 11: 59; Start 08/08/17 at 11:30 Nystatin (Nystop) 1 eric BID TP Last administered on 08/08/17 16:58; Start at 14:00 Info (Anti-Coagulation Monitoring By Pharmacy) 1 each PRN DAILY PRN MC SEE COMMENTS Last administered on 08/08/17 16:07; Start 08/08/17 at 16:15 Tizanidine HCl (Zanaflex) 4 mg PRN Q8HRS PRN PO MUSCLE SPASMS Last administered on 08/08/17 23:03; Start 08/08/17 at 23:00 Insulin Detemir (Levemir) 55 units BID SQ ; Start 08/09/17 at 21:00 Furosemide (Lasix) 40 mg 1X ONCE PO Last administered on 08/09/17 13:55; Start 08/09/17 at 12:00; Stop 08/09/17 at 12:05; Status DC Acetaminophen (Tylenol) 650 mg PRN Q6HRS PRN PO FEVER; Start 08/09/17 at 12:00 Ondansetron HCl (Zofran) 4 mg PRN Q6HRS PRN IV NAUSEA/VOMITING 1ST CHOICE; Start 08/09/17 at 12:00 Morphine Sulfate 2 mg PRN Q2HR PRN IV PAIN SEVERE; Start 08/09/17 at 12:00 Tramadol HCl (Ultram) 50 mg PRN Q6HRS PRN PO PAIN MILD TO MOD; Start 08/09/17 at 12:00 Hydralazine HCl (Apresoline Inj) 10 mg PRN Q4HRS PRN IVP ELEVATED BP, SEE COMMENTS; Start 08/09/17 at 12:00 Docusate Sodium (Colace) 100 mg PRN DAILY PRN PO CONSTIPATION; Start 08/09/17 at 12:00 Active Scripts Active Colace (Docusate Sodium) 100 Mg Capsule 100 Mg PO BID Senna-Time S Tablet (Sennosides/Docusate Sodium) 1 Each Tablet 1 Tab PO BID Ranexa (Ranolazine) 500 Mg Tab.er.12h 500 Mg PO BID 30 Days Amitiza (Lubiprostone) 8 Mcg Capsule 8 Mcg PO BIDWMEALS Nitrostat (Nitroglycerin) 0.4 Mg Tab.subl 0.4 Mg SL PRN Q5MIN PRN 30 Days Reported Furosemide 40 Mg Tablet 1 Tab PO PRN DAILY PRN Xanax (Alprazolam) 0.5 Mg Tablet 0.5 Mg PO PRN Q6HRS PRN Ventolin Hfa Inhaler (Albuterol Sulfate) 18 Gm Hfa.aer.ad 2 Puff INH PRN Q4HRS PRN Oxybutynin Chloride Er (Oxybutynin Chloride) 5 Mg Tab.er.24 1 Tab PO DAILY Lidocaine 1 Each Adh..patch 1 Each TP PRN DAILY PRN Lantus Solostar (Insulin Glargine,Hum.rec.anlog) 100 Unit/1 Ml Insuln.pen 45 Unit SQ BID Duoneb 0.5-3(2.5) Mg/3 Ml (Albuterol/Ipratropium) 3 Ml Ampul.neb 3 Ml NEB PRN QID PRN Flonase Allergy Relief (Fluticasone Propionate) 9.9 Ml [place].susp 2 Sprays NS PRN PRN Doxepin Hcl 50 Mg Capsule 1 Cap PO PRN QHS PRN Clonidine Hcl 0.1 Mg Tablet 1 Tab PO PRN PRN When SBP >140 Humalog (Insulin Lispro) 100 Unit/1 Ml Insuln.pen 40 Unit SQ TIDAC Buspirone Hcl 30 Mg Tablet 1 Tab PO DAILY16 Eliquis (Apixaban) 5 Mg Tablet 5 Mg PO BID Metoprolol Succinate ( Xl ) (Metoprolol Succinate) 25 Mg Tab.er.24h 2 Tab PO DAILY Clopidogrel (Clopidogrel Bisulfate) 75 Mg Tablet 1 Tab PO DAILY Lyrica (Pregabalin) 150 Mg Capsule 1 Cap PO BID Atorvastatin Calcium 20 Mg Tablet 2 Tab PO DAILY Nexium Capsule (Esomeprazole Magnesium) 40 Mg Capsule.dr 1 Cap PO BID Aspirin 81 Mg Tab.chew 1 Tab PO DAILY Levothyroxine Sodium 50 Mcg Tablet 1 Tab PO DAILY Zanaflex (Tizanidine Hcl) 4 Mg Capsule 4 Mg PO PRN Q8HRS PRN as needed for muscle cramps no more than every 8hrs Hydrocodone-Apap 10-325 (Hydrocodone Bit/Acetaminophen) 1 Each Tablet 1 Tab PO PRN Q4HRS PRN as needed for pain every 6 hours Vitals/I & O Vital Sign - Last 24 Hours 08/08/17 08/08/17 08/08/17 08/08/17 14:30 15:54 19:00 20:00 Temp 97.5 97.3 97.5 97.3 Pulse 71 57 Resp 18 18 B/P (MAP) 114/63 (80) 106/52 (70) Pulse Ox 94 94 95 O2 Delivery Nasal Cannula Nasal Cannula Room Air O2 Flow Rate 2.0 2.0 2.0 08/08/17 08/08/17 08/08/17 08/09/17 20:34 23:00 23:03 00:03 Temp 96.7 96.7 Pulse 71 57 Resp 18 B/P (MAP) 114/63 108/58 (75) Pulse Ox 100 O2 Delivery Nasal Cannula Room Air BiPAP/CPAP O2 Flow Rate 2.0 08/09/17 08/09/17 08/09/17 08/09/17 03:00 07:00 08:00 08:21 Temp 97.4 97.9 97.4 97.9 Pulse 70 62 62 Resp 18 20 B/P (MAP) 115/60 (78) 116/51 (72) 116/51 Pulse Ox 98 93 O2 Delivery Nasal Cannula Room Air Room Air O2 Flow Rate 2.0 2.0 08/09/17 08/09/17 08:21 11:00 Temp 97.5 97.5 Pulse 62 64 Resp 20 B/P (MAP) 116/51 124/49 (74) Pulse Ox 94 O2 Delivery Nasal Cannula Intake and Output 08/08/17 08/08/17 08/09/17 15:00 23:00 07:00 Intake Total 180 ml 1140 ml 1300 ml Balance 180 ml 1140 ml 1300 ml JOSE LAWTON MD Aug 09, 2017 14:12
--- NOTE | 2017-08-09 14:48 | EKG ---
[facility] [address] [place] [address] Test Date: 2017-08-09 Test Time: 14:43:41 Pat Name: EVELIA TAI Department: Room: 538 1 Gender: F Preliminary School Psychologist: SERGIO : [id number] Requested By: JOSE LAWTON Order Number: [id number] Reading MD: Enrique Brennan Measurements Intervals [place] Rate: 65 P: 54 GA: 202 QRS: 5 QRSD: 56 T: 47 QT: 372 QTc: 392 Interpretive Statements SINUS RHYTHM QRS(T) CONTOUR ABNORMALITY CONSISTENT WITH POSSIBLE ANTERIOR INFARCT AGE UNDETERMINED ABNORMAL ECG RI6.01 Compared to ECG 08/08/2017 00:37:19 No significant changes Electronically Signed On 08-09-2017 15:59:49 [employer] TECHNICIAN by Enrique Brennan
[2017-08-09 15:00] VITALS: BP 122/60
[2017-08-09 15:11] LABS: CALCIUM 8.7 mg/dL (8.5-10.1); CREATININE 1.3 mg/dL (0.6-1.0); GFR 42.5; POTASSIUM 4.4 mmol/L (3.5-5.1)
[2017-08-09 15:14] LABS: MAGNESIUM 1.4 mg/dL (1.8-2.4); PHOSPHORUS 4.3 mg/dL (2.6-4.7)
[2017-08-09] MEDS ORDERED: MAGNESIUM SULFATE 2GM 50 ML IV ONE (16:30)
[2017-08-09] MEDS: busPIRone 10 MG TABLET. PO SCH (16:51)
[2017-08-09 19:00] VITALS: BP 142/60
[2017-08-09] MEDS: MAGNESIUM OXIDE 400 MG TABLET PO SCH (21:43)
[2017-08-09] MEDS: HYDROcodone/APAP 10/325 1 TAB TABLET PO PRN (21:50)
[2017-08-09] MEDS: ATORVASTATIN CALCIUM 20 MG TABLET PO SCH (21:52)
[2017-08-09] MEDS: ANTI-COAG MONITOR BY PHARMACY. MC PRN (22:01)
[2017-08-09 23:00] VITALS: BP 116/65
[2017-08-10 03:00] VITALS: BP 140/76
[2017-08-10 05:33] LABS: BASO # 0.1 x10^3/uL (0.0-0.2); BASO % 1 % (0-3); EOS % 6 % (0-3); HEMOGLOBIN 11.4 g/dL (12.0-15.5); LYMPH # 3.4 x10^3/uL (1.0-4.8); LYMPH % 38 % (24-48); MEAN CORPUSCULAR HEMOGLOBIN 26 pg (25-35); MEAN CORPUSCULAR HGB CONC 32 g/dL (31-37); MEAN CORPUSCULAR VOLUME 82 fL (79-100); MONO % 8 % (0-9); NEUT % 47 % (31-73); PLATELET COUNT 293 x10^3/uL (140-400); RED CELL DISTRIBUTION WIDTH 15.5 % (11.5-14.5); WHITE BLOOD COUNT 8.8 x10^3/uL (4.0-11.0)
[2017-08-10] MEDS: PANTOPRAZOLE 40 MG TABLET.DR. PO SCH ×2 (06:13→16:30)
[2017-08-10] MEDS: LEVOTHYROXINE 50 MCG TABLET PO SCH (06:13)
[2017-08-10 06:27] LABS: ALBUMIN 2.7 g/dL (3.4-5.0); ALBUMIN/GLOBULIN RATIO 0.8 (1.0-1.7); CALCIUM 9.1 mg/dL (8.5-10.1); CREATININE 1.3 mg/dL (0.6-1.0); GFR 42.5; POTASSIUM 4.7 mmol/L (3.5-5.1); TOTAL BILIRUBIN 0.2 mg/dL (0.2-1.0); TOTAL PROTEIN 6.2 g/dL (6.4-8.2)
[2017-08-10 07:30] VITALS: BP 124/67
[2017-08-10] MEDS: INSULIN ASPART 300 UNITS/3 ML INSULN.PEN SQ SCH ×5 (08:25→16:30)
[2017-08-10] MEDS: INSULIN DETEMIR 300 UNITS/3 ML INSULN.PEN. SQ SCH (08:26)
[2017-08-10] MEDS: OXYBUTYNIN CHLORIDE 5 MG TABLET PO SCH (08:27)
[2017-08-10] MEDS: PREGABALIN 75 MG CAPSULE PO SCH (08:28)
[2017-08-10] MEDS: APIXABAN 5 MG TABLET. PO SCH (08:28)
[2017-08-10] MEDS: SENNOSIDES/DOCUSATE 8.6/50MG TABLET. PO SCH (08:28)
[2017-08-10] MEDS: DOCUSATE SODIUM 100 MG CAPSULE. PO SCH (08:29)
[2017-08-10] MEDS: METOPROLOL SUCC 24HR ER 50 MG TAB.ER.24H. PO SCH (08:29)
[2017-08-10] MEDS: LUBIPROSTONE 8 MCG CAPSULE PO SCH (08:30)
[2017-08-10] MEDS: MAGNESIUM OXIDE 400 MG TABLET PO SCH (08:30)
[2017-08-10] MEDS: ASPIRIN CHEWABLE 81 MG TABLET. PO SCH (08:30)
[2017-08-10] MEDS: RANOLAZINE 500 MG TAB.ER.12H PO SCH (08:30)
[2017-08-10] MEDS: NYSTATIN TOPICAL POWDER 15GM BOTTLE. TP SCH (08:36)
[2017-08-10] MEDS: HYDROcodone/APAP 10/325 1 TAB TABLET PO PRN (10:16)
[2017-08-10] MEDS ORDERED: MAGN400T22 PO (11:09)
[2017-08-10] MEDS ORDERED: INSU100I27 SQ (11:11)
[2017-08-10 11:16] VITALS: BP 103/50
[2017-08-10] MEDS ORDERED: MAGNESIUM SULFATE 2GM 50 ML IV ONE (11:30)
[2017-08-10] MEDS ORDERED: FUROSEMIDE 40 MG TABLET. PO ONE (11:30)
[2017-08-10 15:26] VITALS: BP 106/54
[2017-08-10] MEDS: busPIRone 10 MG TABLET. PO SCH (16:00)
--- NOTE | 2017-08-10 16:22 | PDOC3 ---
Discharge Summary [facility] Date of Admission: Aug 08, 2017 Discharge Date: Aug 10, 2017 Admitting Diagnosis lightheaded uncontrolled DM2 , hba1c 13, no DKA, NO HONK h/o CAD with 7stents stable chronic diastolic CHF EF 605 PAFIB ON ELIQUIS H/O dvt, PE h/o CVA htn ckd3 morbid obesity JENNIFER ,dehydration, vasomotor mild malnutrition, chronic dz Problems: CONSULTS dr Bernabe Brief Hospital Course Ms. Mari is a 57 old F, comes for dizzyness, light headed. she said her BP was low at 70s at home. She was found glucose >600 iN ER, got 2 L ivf. GLUcose controlled better with insulin, not DKA, DOUBT HONK. dc home with increased insulin. dc time 35min General: Alert, Oriented X3, Cooperative Heart: Regular rate, Normal S1, Normal S2 Lungs: Wheezing (left basilar mild), Crackles, Other Abdomen: Normal bowel sounds, Soft Extremities: No clubbing, No cyanosis, Other (bl hand and leg 1+ edema) Skin: No rashes Patient History: Cancer in sister G8 SISTER (sister had cervical cancer,htn,hypoglycemia) Cardiac disorder in father Diabetes mellitus in sister Family history: Cardiovascular disease (situation) 33 FATHER 32 MOTHER Family history: Diabetes mellitus (situation) 33 FATHER 32 MOTHER Family history: Hypertension (situation) Hypertension in sister Patient's brother is Patient's father is Patient's mother is still living Patient's sister is still living Type 2 diabetes mellitus in mother Unknown G8 BROTHER (1 brother of viral pneumonia in, copd, hernia, dm, htn 2nd brother had mental problemdiedGSW ) Problems: Disposition home CONDITION AT DISCHARGE: Improved, Stable Diet ADA Scheduled Apixaban (Eliquis), 5 MG PO BID, (Reported) Aspirin (Aspirin), 1 TAB PO DAILY, (Reported) Atorvastatin Calcium (Atorvastatin Calcium), 2 TAB PO DAILY, (Reported) Buspirone Hcl (Buspirone Hcl), 1 TAB PO DAILY16, (Reported) Clopidogrel Bisulfate (Clopidogrel), 1 TAB PO DAILY, (Reported) Docusate Sodium (Colace), 100 MG PO BID Esomeprazole Magnesium (Nexium Capsule), 1 CAP PO BID, (Reported) Insulin Detemir (Levemir Flextouch), 60 UNITS SQ BID Insulin Lispro (Humalog), 40 UNIT SQ TIDAC, (Reported) Levothyroxine Sodium (Levothyroxine Sodium), 1 TAB PO DAILY, (Reported) Lubiprostone (Amitiza), 8 MCG PO BIDWMEALS Magnesium Oxide (Mag-Oxide), 400 MG PO BID Metoprolol Succinate (Metoprolol Succinate ( Xl )), 2 TAB PO DAILY, (Reported) Oxybutynin Chloride (Oxybutynin Chloride Er), 1 TAB PO DAILY, (Reported) Pregabalin (Lyrica), 1 CAP PO BID, (Reported) Ranolazine (Ranexa), 500 MG PO BID Sennosides/Docusate Sodium (Senna-Time S Tablet), 1 TAB PO BID Scheduled PRN Albuterol Sulfate (Ventolin Hfa Inhaler), 2 PUFF INH PRN Q4HRS PRN for SHORTNESS OF BREATH, (Reported) Alprazolam (Xanax), 0.5 MG PO PRN Q6HRS PRN for ANXIETY / AGITATION, (Reported) Clonidine Hcl (Clonidine Hcl), 1 TAB PO PRN PRN for HYPERTENSION, SEE COMMENTS, (Reported) Doxepin Hcl (Doxepin Hcl), 1 CAP PO PRN QHS PRN for INSOMNIA, (Reported) Fluticasone Propionate (Flonase Allergy Relief), 2 SPRAYS NS PRN PRN for ALLERGIES, (Reported) Furosemide (Furosemide), 1 TAB PO PRN DAILY PRN for swelling, (Reported) Hydrocodone Bit/Acetaminophen (Hydrocodone-Apap 10-325 ), 1 TAB PO PRN Q4HRS PRN for PAIN, (Reported) Ipratropium/Albuterol Sulfate (Duoneb 0.5-3(2.5) Mg/3 Ml), 3 ML NEB PRN QID PRN for SHORTNESS OF BREATH, (Reported) Lidocaine (Lidocaine), 1 EACH TP PRN DAILY PRN for PAIN, (Reported) Nitroglycerin (Nitrostat), 0.4 MG SL PRN Q5MIN PRN for CP RATING > 1/10 Tizanidine Hcl (Zanaflex), 4 MG PO PRN Q8HRS PRN for MUSCLE SPASMS, (Reported) Discontinued Medications Duloxetine Hcl (Cymbalta), 1 CAP PO BID, (Reported) Insulin Glargine,Hum.rec.anlog (Lantus Solostar), 45 UNIT SQ BID, (Reported) Follow Up pcp in 2 weeks JOSE LAWTON MD Aug 10, 2017 16:22
[2017-08-10] MEDS ORDERED: INSULIN DETEMIR 300 UNITS/3 ML INSULN.PEN. SQ SCH (21:00)
== END 2017-08-10 15:30 | disposition home or self-care (01) | DRG 637 ==
LOC: ER 00:16 → 5 NORTH 02:12
PROVIDERS: ADMIT Internal Medicine; ATTEND Internal Medicine
DX: E11.65 Type 2 diabetes mellitus with hyperglycemia (principal); N17.0 Acute kidney failure with tubular necrosis; E11.22 Type 2 diabetes mellitus with diabetic chronic kidney disease; E11.40 Type 2 diabetes mellitus with diabetic neuropathy, unspecified; E86.0 Dehydration; I48.91 Unspecified atrial fibrillation; E44.1 Mild protein-calorie malnutrition; I13.0 Hypertensive heart and chronic kidney disease with heart failure and stage 1 through stage 4 chronic kidney disease, or unspecified chronic kidney disease; I50.32 Chronic diastolic (congestive) heart failure; G90.50 Complex regional pain syndrome I, unspecified; E66.01 Morbid (severe) obesity due to excess calories; E03.9 Hypothyroidism, unspecified; G47.33 Obstructive sleep apnea (adult) (pediatric); I25.10 Atherosclerotic heart disease of native coronary artery without angina pectoris; J44.9 Chronic obstructive pulmonary disease, unspecified; K21.9 Gastro-esophageal reflux disease without esophagitis; N18.3 Chronic kidney disease, stage 3 (moderate); Z79.4 Long term (current) use of insulin; Z80.49 Family history of malignant neoplasm of other genital organs; Z82.49 Family history of ischemic heart disease and other diseases of the circulatory system; Z82.5 Family history of asthma and other chronic lower respiratory diseases; Z83.3 Family history of diabetes mellitus; Z86.718 Personal history of other venous thrombosis and embolism; Z86.73 Personal history of transient ischemic attack (TIA), and cerebral infarction without residual deficits; Z90.710 Acquired absence of both cervix and uterus; Z90.49 Acquired absence of other specified parts of digestive tract
CPT/HCPCS: 36415; 80048; 80053; 81001; 82962; 83036; 83735; 84100; 84484; 85025; 87086; 93005; 94250; 96361; 96374; J1815; J7030; J7060; 97110; 99285-25

== ENCOUNTER 2017-10-25 18:22 | Inpatient (IN) | payer OTHER, MEDICARE ==
[2017-10-25 19:36] LABS: BILIRUBIN,URINE NEGATIVE (NEG); CLARITY,URINE CLEAR; COLOR,URINE YELLOW; GLUCOSE,URINE 250 mg/dL (NEG); NITRITE,URINE NEGATIVE (NEG); PH,URINE 5.5; PROTEIN,URINE 100 mg/dL (NEG-TRACE); UROBILINOGEN,URINE 0.2 mg/dL (0.2 mg/dL)
[2017-10-25 19:43] LABS: ADD MAN DIFF? NO
[2017-10-25 19:44] LABS: BASO # 0.1 x10^3/uL (0.0-0.2); BASO % 1 % (0-3); EOS # 0.4 x10^3/uL (0.0-0.7); EOS % 5 % (0-3); HEMATOCRIT 39.6 % (36.0-47.0); HEMOGLOBIN 13.2 g/dL (12.0-15.5); LYMPH # 1.4 x10^3/uL (1.0-4.8); LYMPH % 16 % (24-48); MEAN CORPUSCULAR HEMOGLOBIN 27 pg (25-35); MEAN CORPUSCULAR HGB CONC 33 g/dL (31-37); MEAN CORPUSCULAR VOLUME 82 fL (79-100); MONO # 0.7 x10^3/uL (0.0-1.1); MONO % 9 % (0-9); NEUT % 69 % (31-73); PLATELET COUNT 368 x10^3/uL (140-400); RED BLOOD COUNT 4.85 x10^6/uL (3.50-5.40); RED CELL DISTRIBUTION WIDTH 15.7 % (11.5-14.5); WHITE BLOOD COUNT 8.6 x10^3/uL (4.0-11.0)
[2017-10-25 19:45] LABS: RBC,URINE OCC /HPF (0-2)
[2017-10-25 19:46] LABS: BACTERIA,URINE MANY /HPF (0-FEW); SQUAMOUS EPITHELIAL CELL,UR MOD /LPF; WBC,URINE 20-40 /HPF (0-4); YEAST,URINE PRESENT /HPF
[2017-10-25 19:55] LABS: ANION GAP 7 (6-14); BLOOD UREA NITROGEN 31 mg/dL (7-20); BUN/CREATININE RATIO 24 (6-20); CALCIUM 9.9 mg/dL (8.5-10.1); CARBON DIOXIDE 34 mmol/L (21-32); CHLORIDE 97 mmol/L (98-107); CREATININE 1.3 mg/dL (0.6-1.0); GFR 42.5; GLUCOSE 285 mg/dL (70-99); POTASSIUM 3.8 mmol/L (3.5-5.1); SODIUM 138 mmol/L (136-145)
[2017-10-25] MEDS: IPRATRPIUM/ALBUTEROL 0.5/2.5MG 3 ML NEBU. NEB ×3 (19:56→19:57)
[2017-10-25 20:02] LABS: LACTIC ACID 1.9 mmol/L (0.4-2.0)
[2017-10-25 20:03] LABS: TROPONINI < 0.017 ng/mL (0.000-0.055)
[2017-10-25 20:07] LABS: NT-PRO BNP 254 pg/mL (0-124)
[2017-10-25 20:09] LABS: ALBUMIN 3.5 g/dL (3.4-5.0); ALBUMIN/GLOBULIN RATIO 0.7 (1.0-1.7); ALK PHOS 134 U/L (46-116); ALT (SGPT) 26 U/L (14-59); AST (SGOT) 16 U/L (15-37); TOTAL BILIRUBIN 0.2 mg/dL (0.2-1.0); TOTAL PROTEIN 8.3 g/dL (6.4-8.2)
[2017-10-25] MEDS: OSELTAMIVIR 75 MG CAPSULE PO (20:39)
[2017-10-25] MEDS: methylPREDNISolone SOD SUCC PF 125 MG/2 ML VIAL. IV (20:40)
[2017-10-25 20:46] LABS: INFLUENZA A PATIENT NEGATIVE (NEGATIVE); INFLUENZA B PATIENT NEGATIVE (NEGATIVE); OBC FLU VALID
[2017-10-25] MEDS ORDERED: ONDANSETRON PF 4 MG/2 ML VIAL. IV (22:15)
[2017-10-26 00:37] LABS: POC GLUCOSE 387 mg/dL (70-99)
[2017-10-26] MEDS ORDERED: DEXTROSE 50% 25 GM / 50ML DISP.SYRIN. IV (01:30)
[2017-10-26] MEDS: DULoxetine HCL 30 MG CAPSULE.DR PO ×3 (01:50→21:36)
[2017-10-26] MEDS: PREGABALIN 75 MG CAPSULE PO ×3 (01:51→21:36)
[2017-10-26] MEDS: HYDROcodone/APAP 10/325 1 TAB TABLET PO ×3 (01:52→21:48)
[2017-10-26] MEDS: busPIRone 10 MG TABLET. PO ×2 (01:52→21:36)
[2017-10-26] MEDS: tiZANidine 4 MG TABLET. PO ×3 (01:52→21:48)
[2017-10-26] MEDS: INSULIN DETEMIR 300 UNITS/3 ML INSULN.PEN. SQ ×3 (02:05→21:42)
[2017-10-26] MEDS: ACETAMINOPHEN 325 MG TABLET. PO (05:20)
[2017-10-26 05:58] LABS: TROPONINI < 0.017 ng/mL (0.000-0.055)
[2017-10-26 07:38] LABS: POC GLUCOSE 579 mg/dL (70-99)
[2017-10-26] MEDS: IPRATRPIUM/ALBUTEROL 0.5/2.5MG 3 ML NEBU. NEB ×8 (07:52→20:00)
[2017-10-26] MEDS: INSULIN ASPART 300 UNITS/3 ML INSULN.PEN SQ ×8 (08:05→21:43)
[2017-10-26] MEDS ORDERED: cloNIDine HCL 0.1 MG TABLET PO (08:30)
[2017-10-26] MEDS ORDERED: FUROSEMIDE 40 MG TABLET. PO (08:30)
[2017-10-26] MEDS ORDERED: ALPRAZolam 0.5 MG TABLET PO (08:30)
[2017-10-26] MEDS ORDERED: AZITHRMYCN 500MG IVPB FOR OMNI 250 ML IV (08:30)
[2017-10-26] MEDS ORDERED: NITROGLYCERIN SUBLINGUAL 0.4 MG BOTTLE OF 25. SL (08:30)
[2017-10-26] MEDS ORDERED: INSULIN DETEMIR 300 UNITS/3 ML INSULN.PEN. SQ (09:00)
[2017-10-26] MEDS ORDERED: FLUTICASONE 50MCG/NASAL SPRAY 16GM BOTTLE. NS (09:00)
[2017-10-26] MEDS: LUBIPROSTONE 8 MCG CAPSULE PO ×2 (09:14→17:00)
[2017-10-26] MEDS: methylPREDNISolone SOD SUCC PF 40 MG/ML VIAL. IV ×3 (09:14→21:35)
[2017-10-26] MEDS: cefTRIAXone IV Push 1 GM VIAL. IVP (09:14)
[2017-10-26] MEDS: APIXABAN 5 MG TABLET. PO ×2 (09:15→21:36)
[2017-10-26] MEDS: METOPROLOL SUCC 24HR ER 25 MG TAB.ER.24H. PO (09:15)
[2017-10-26] MEDS: LEVOTHYROXINE 50 MCG TABLET PO (09:16)
[2017-10-26] MEDS: OXYBUTYNIN CHLORIDE 5 MG TABLET PO ×2 (09:16→21:36)
[2017-10-26] MEDS: DOCUSATE SODIUM 100 MG CAPSULE. PO ×2 (09:16→21:36)
[2017-10-26] MEDS: SENNOSIDES/DOCUSATE 8.6/50MG TABLET. PO ×2 (09:16→21:36)
[2017-10-26] MEDS: CLOPIDOGREL BISULFATE 75 MG TABLET PO (09:16)
[2017-10-26] MEDS: amLODIPine BESYLATE 5 MG TABLET PO (09:16)
[2017-10-26] MEDS: PANTOPRAZOLE 40 MG TABLET.DR. PO ×2 (09:16→16:59)
[2017-10-26] MEDS: ASPIRIN CHEWABLE 81 MG TABLET. PO (09:17)
[2017-10-26 09:20] LABS: BASO % 1 % (0-3); EOS % 0 % (0-3); HEMATOCRIT 37.2 % (36.0-47.0); HEMOGLOBIN 11.9 g/dL (12.0-15.5); LYMPH # 0.2 x10^3/uL (1.0-4.8); LYMPH % 3 % (24-48); MEAN CORPUSCULAR HEMOGLOBIN 27 pg (25-35); MEAN CORPUSCULAR HGB CONC 32 g/dL (31-37); MEAN CORPUSCULAR VOLUME 84 fL (79-100); MONO # 0.1 x10^3/uL (0.0-1.1); MONO % 1 % (0-9); NEUT # 8.6 x10^3uL (1.8-7.7); NEUT % 96 % (31-73); PLATELET COUNT 332 x10^3/uL (140-400); RED BLOOD COUNT 4.42 x10^6/uL (3.50-5.40); RED CELL DISTRIBUTION WIDTH 16.3 % (11.5-14.5)
[2017-10-26 09:29] LABS: ALBUMIN 3.1 g/dL (3.4-5.0); ALBUMIN/GLOBULIN RATIO 0.7 (1.0-1.7); ALK PHOS 114 U/L (46-116); ALT (SGPT) 21 U/L (14-59); ANION GAP 15 (6-14); AST (SGOT) 20 U/L (15-37); BLOOD UREA NITROGEN 36 mg/dL (7-20); BUN/CREATININE RATIO 23 (6-20); CALCIUM 9.2 mg/dL (8.5-10.1); CARBON DIOXIDE 24 mmol/L (21-32); CHLORIDE 95 mmol/L (98-107); CREATININE 1.6 mg/dL (0.6-1.0); GFR 33.5; POTASSIUM 4.8 mmol/L (3.5-5.1); SODIUM 134 mmol/L (136-145); TOTAL BILIRUBIN 0.2 mg/dL (0.2-1.0); TOTAL PROTEIN 7.5 g/dL (6.4-8.2)
[2017-10-26 09:32] LABS: GLUCOSE 616 mg/dL (70-99)
[2017-10-26 09:56] LABS: ADD MAN DIFF? YES
[2017-10-26 10:31] LABS: TROPONINI < 0.017 ng/mL (0.000-0.055)
[2017-10-26] MEDS: AZITHROMYCIN 500 MG in IV NORMAL SALINE 500ML BAG 500 ML IV (10:36)
[2017-10-26 10:38] LABS: % BANDS 4 % (0-9); % LYMPHS 1 % (24-48); % SEGS 95 % (35-66); PLT ESTIMATE ADEQUATE (ADEQUATE)
[2017-10-26] MEDS: dilTIAZem IV PUSH 25 MG/5 ML VIAL IVP (10:42)
[2017-10-26 11:37] LABS: POC GLUCOSE 479 mg/dL (70-99)
[2017-10-26 15:34] LABS: POC GLUCOSE 421 mg/dL (70-99)
[2017-10-26] MEDS ORDERED: DOXEPIN HCL 25 MG CAPSULE. PO (21:00)
[2017-10-26] MEDS: ATORVASTATIN CALCIUM 40 MG TABLET. PO (21:36)
[2017-10-27 00:26] LABS: POC GLUCOSE 388 mg/dL (70-99)
[2017-10-27 01:27] LABS: POC GLUCOSE 398 mg/dL (70-99)
[2017-10-27] MEDS: PROMETH/CODEINE 6.25/10MG 5 ML SYRUP. PO (03:15)
[2017-10-27] MEDS: INSULIN ASPART 300 UNITS/3 ML INSULN.PEN SQ ×9 (03:21→21:53)
[2017-10-27] MEDS: methylPREDNISolone SOD SUCC PF 40 MG/ML VIAL. IV ×2 (05:51→21:22)
[2017-10-27] MEDS: LEVOTHYROXINE 50 MCG TABLET PO (05:52)
[2017-10-27 08:01] LABS: POC GLUCOSE 319 mg/dL (70-99)
[2017-10-27] MEDS: SENNOSIDES/DOCUSATE 8.6/50MG TABLET. PO ×3 (08:23→21:19)
[2017-10-27] MEDS: PREGABALIN 75 MG CAPSULE PO ×2 (08:24→21:20)
[2017-10-27] MEDS: ASPIRIN CHEWABLE 81 MG TABLET. PO (08:24)
[2017-10-27] MEDS: DULoxetine HCL 30 MG CAPSULE.DR PO ×2 (08:24→21:19)
[2017-10-27] MEDS: APIXABAN 5 MG TABLET. PO ×2 (08:24→21:19)
[2017-10-27] MEDS: METOPROLOL SUCC 24HR ER 25 MG TAB.ER.24H. PO (08:25)
[2017-10-27] MEDS: PANTOPRAZOLE 40 MG TABLET.DR. PO ×2 (08:25→17:22)
[2017-10-27] MEDS: CLOPIDOGREL BISULFATE 75 MG TABLET PO (08:25)
[2017-10-27] MEDS: cefTRIAXone IV Push 1 GM VIAL. IVP (08:26)
[2017-10-27] MEDS: amLODIPine BESYLATE 5 MG TABLET PO (08:26)
[2017-10-27] MEDS: OXYBUTYNIN CHLORIDE 5 MG TABLET PO ×2 (08:26→21:20)
[2017-10-27] MEDS: LUBIPROSTONE 8 MCG CAPSULE PO ×2 (08:26→17:22)
[2017-10-27] MEDS: INSULIN DETEMIR 300 UNITS/3 ML INSULN.PEN. SQ ×2 (08:48→21:54)
[2017-10-27] MEDS: IPRATRPIUM/ALBUTEROL 0.5/2.5MG 3 ML NEBU. NEB ×4 (08:54→19:40)
[2017-10-27] MEDS: DOCUSATE SODIUM 100 MG CAPSULE. PO ×2 (09:00→21:19)
[2017-10-27 10:28] LABS: POC GLUCOSE 345 mg/dL (70-99)
[2017-10-27 17:05] LABS: POC GLUCOSE 254 mg/dL (70-99)
[2017-10-27] MEDS: DULAGLUTIDE SUBCUT (17:21)
[2017-10-27] MEDS: ANTI-COAG MONITOR BY PHARMACY. MC (18:21)
[2017-10-27] MEDS: ATORVASTATIN CALCIUM 40 MG TABLET. PO (21:19)
[2017-10-27] MEDS: LACTOBACILLUS RHAMNOSUS GG 1 CAPSULE. PO (21:19)
[2017-10-27] MEDS: busPIRone 10 MG TABLET. PO (21:19)
[2017-10-27 21:22] LABS: POC GLUCOSE 241 mg/dL (70-99)
[2017-10-27] MEDS: tiZANidine 4 MG TABLET. PO (21:49)
[2017-10-27] MEDS: HYDROcodone/APAP 10/325 1 TAB TABLET PO (21:49)
[2017-10-28] MEDS: HYDROcodone/APAP 10/325 1 TAB TABLET PO ×2 (03:53→13:02)
[2017-10-28 07:03] LABS: ANION GAP 8 (6-14); BLOOD UREA NITROGEN 41 mg/dL (7-20); CALCIUM 9.3 mg/dL (8.5-10.1); CARBON DIOXIDE 29 mmol/L (21-32); CHLORIDE 98 mmol/L (98-107); CREATININE 1.2 mg/dL (0.6-1.0); GFR 46.6; GLUCOSE 329 mg/dL (70-99); MAGNESIUM 2.2 mg/dL (1.8-2.4); POTASSIUM 4.9 mmol/L (3.5-5.1); SODIUM 135 mmol/L (136-145)
[2017-10-28] MEDS: IPRATRPIUM/ALBUTEROL 0.5/2.5MG 3 ML NEBU. NEB ×3 (07:29→16:00)
[2017-10-28 07:47] LABS: POC GLUCOSE 322 mg/dL (70-99)
[2017-10-28] MEDS: DOCUSATE SODIUM 100 MG CAPSULE. PO (08:43)
[2017-10-28] MEDS: CLOPIDOGREL BISULFATE 75 MG TABLET PO (08:43)
[2017-10-28] MEDS: LACTOBACILLUS RHAMNOSUS GG 1 CAPSULE. PO (08:43)
[2017-10-28] MEDS: DULoxetine HCL 30 MG CAPSULE.DR PO (08:43)
[2017-10-28] MEDS: methylPREDNISolone SOD SUCC PF 40 MG/ML VIAL. IV (08:44)
[2017-10-28] MEDS: LUBIPROSTONE 8 MCG CAPSULE PO ×2 (08:44→17:02)
[2017-10-28] MEDS: APIXABAN 5 MG TABLET. PO (08:44)
[2017-10-28] MEDS: SENNOSIDES/DOCUSATE 8.6/50MG TABLET. PO (08:46)
[2017-10-28] MEDS: PREGABALIN 75 MG CAPSULE PO (08:46)
[2017-10-28] MEDS: OXYBUTYNIN CHLORIDE 5 MG TABLET PO (08:46)
[2017-10-28] MEDS: amLODIPine BESYLATE 5 MG TABLET PO (08:46)
[2017-10-28] MEDS: PANTOPRAZOLE 40 MG TABLET.DR. PO ×2 (08:47→17:02)
[2017-10-28] MEDS: LEVOTHYROXINE 50 MCG TABLET PO (08:47)
[2017-10-28] MEDS: ASPIRIN CHEWABLE 81 MG TABLET. PO (09:00)
[2017-10-28] MEDS: INSULIN ASPART 300 UNITS/3 ML INSULN.PEN SQ ×4 (09:06→13:12)
[2017-10-28] MEDS: INSULIN DETEMIR 300 UNITS/3 ML INSULN.PEN. SQ (09:08)
[2017-10-28 11:40] LABS: POC GLUCOSE 288 mg/dL (70-99)
[2017-10-28] MEDS: CEFPODOXIME PROXETIL 100 MG TABLET. PO (13:00)
[2017-10-28] MEDS: METOPROLOL SUCC 24HR ER 25 MG TAB.ER.24H. PO (13:02)
== END 2017-10-28 17:22 | disposition home or self-care (01) | DRG 637 ==
LOC: ER 18:22 → 5 SOUTH 21:56
PROC: 5A09357 Assistance with Respiratory Ventilation, Less than 24 Consecutive Hours, Continuous Positive Airway Pressure (ICD-10-PCS; principal; 2017-10-28)
DX: E11.65 Type 2 diabetes mellitus with hyperglycemia (principal); J96.21 Acute and chronic respiratory failure with hypoxia; E11.22 Type 2 diabetes mellitus with diabetic chronic kidney disease; J96.22 Acute and chronic respiratory failure with hypercapnia; I47.1 Supraventricular tachycardia; N39.0 Urinary tract infection, site not specified; E66.2 Morbid (severe) obesity with alveolar hypoventilation; I13.0 Hypertensive heart and chronic kidney disease with heart failure and stage 1 through stage 4 chronic kidney disease, or unspecified chronic kidney disease; I50.22 Chronic systolic (congestive) heart failure; J44.1 Chronic obstructive pulmonary disease with (acute) exacerbation; Z68.43 Body mass index [BMI] 50.0-59.9, adult; J44.0 Chronic obstructive pulmonary disease with (acute) lower respiratory infection; J40 Bronchitis, not specified as acute or chronic; M10.9 Gout, unspecified; F32.9 Major depressive disorder, single episode, unspecified; I25.10 Atherosclerotic heart disease of native coronary artery without angina pectoris; I48.91 Unspecified atrial fibrillation; N18.3 Chronic kidney disease, stage 3 (moderate); M19.90 Unspecified osteoarthritis, unspecified site; Z95.5 Presence of coronary angioplasty implant and graft; Z90.710 Acquired absence of both cervix and uterus; Z87.440 Personal history of urinary (tract) infections; Z87.891 Personal history of nicotine dependence; Z86.73 Personal history of transient ischemic attack (TIA), and cerebral infarction without residual deficits; Z86.711 Personal history of pulmonary embolism; Z83.3 Family history of diabetes mellitus; Z82.71 Family history of polycystic kidney; Z82.5 Family history of asthma and other chronic lower respiratory diseases; Z82.49 Family history of ischemic heart disease and other diseases of the circulatory system; Z80.49 Family history of malignant neoplasm of other genital organs
CPT/HCPCS: 36415; 71046; 80048; 80053; 81001; 82962; 83605; 83735; 83880; 84484; 85007; 85025; 87086; 87186; 87804; 87804-59; 93005; 93306; 94640; 94760; 96374; 99285-25; J0456; J0696; J1815; J2920; J2930; J3490; J7040; J7620

== ENCOUNTER 2017-11-02 21:46 | Inpatient (IN) | payer OTHER, MEDICARE ==
[2017-11-02 22:18] LABS: ADD MAN DIFF? NO; BASO # 0.1 x10^3/uL (0.0-0.2); BASO % 1 % (0-3); EOS # 0.3 x10^3/uL (0.0-0.7); EOS % 4 % (0-3); HEMATOCRIT 39.3 % (36.0-47.0); HEMOGLOBIN 13.1 g/dL (12.0-15.5); LYMPH % 41 % (24-48); MEAN CORPUSCULAR HEMOGLOBIN 28 pg (25-35); MEAN CORPUSCULAR HGB CONC 33 g/dL (31-37); MEAN CORPUSCULAR VOLUME 83 fL (79-100); MONO # 0.8 x10^3/uL (0.0-1.1); MONO % 9 % (0-9); NEUT # 4.5 x10^3uL (1.8-7.7); NEUT % 46 % (31-73); PLATELET COUNT 367 x10^3/uL (140-400); RED BLOOD COUNT 4.76 x10^6/uL (3.50-5.40); WHITE BLOOD COUNT 9.8 x10^3/uL (4.0-11.0)
[2017-11-02 22:31] LABS: ANION GAP 10 (6-14); BLOOD UREA NITROGEN 32 mg/dL (7-20); BUN/CREATININE RATIO 25 (6-20); CALCIUM 9.7 mg/dL (8.5-10.1); CARBON DIOXIDE 34 mmol/L (21-32); CHLORIDE 99 mmol/L (98-107); CREATININE 1.3 mg/dL (0.6-1.0); GFR 42.5; GLUCOSE 201 mg/dL (70-99); POTASSIUM 3.6 mmol/L (3.5-5.1); SODIUM 143 mmol/L (136-145)
[2017-11-02] MEDS: BUMETANIDE 1 MG TABLET. PO (22:32)
[2017-11-02 22:37] LABS: ALBUMIN 3.3 g/dL (3.4-5.0); ALBUMIN/GLOBULIN RATIO 0.9 (1.0-1.7); ALK PHOS 118 U/L (46-116); ALT (SGPT) 29 U/L (14-59); AST (SGOT) 16 U/L (15-37); TOTAL BILIRUBIN 0.2 mg/dL (0.2-1.0); TOTAL PROTEIN 7.1 g/dL (6.4-8.2)
[2017-11-02 22:40] LABS: TROPONINI < 0.017 ng/mL (0.000-0.055)
[2017-11-02 22:42] LABS: NT-PRO BNP 275 pg/mL (0-124)
[2017-11-02] MEDS: IPRATRPIUM/ALBUTEROL 0.5/2.5MG 3 ML NEBU. NEB (22:45)
[2017-11-02] MEDS: methylPREDNISolone SOD SUCC PF 125 MG/2 ML VIAL. IV (23:00)
[2017-11-02] MEDS ORDERED: ONDANSETRON PF 4 MG/2 ML VIAL. IV (23:15)
[2017-11-03 06:36] LABS: TROPONINI 0.019 ng/mL (0.000-0.055)
[2017-11-03] MEDS ORDERED: FUROSEMIDE 40 MG TABLET. PO (08:30)
[2017-11-03] MEDS ORDERED: ALBUTEROL SULFATE 2.5 MG/3 ML NEBU. NEB (08:30)
[2017-11-03] MEDS ORDERED: ALPRAZolam 0.5 MG TABLET PO (08:30)
[2017-11-03] MEDS ORDERED: guaiFENesin DM 200MG/20MG 10 ML SYRUP PO (08:30)
[2017-11-03] MEDS ORDERED: PROMETH/CODEINE 6.25/10MG 5 ML SYRUP. PO (08:30)
[2017-11-03] MEDS ORDERED: ONDANSETRON PF 4 MG/2 ML VIAL. IV (08:30)
[2017-11-03] MEDS ORDERED: cloNIDine HCL 0.1 MG TABLET PO (08:30)
[2017-11-03] MEDS ORDERED: NITROGLYCERIN SUBLINGUAL 0.4 MG BOTTLE OF 25. SL (08:30)
[2017-11-03] MEDS ORDERED: DEXTROSE 50% 25 GM / 50ML DISP.SYRIN. IV (08:30)
[2017-11-03] MEDS ORDERED: DOXEPIN HCL 25 MG CAPSULE. PO (08:30)
[2017-11-03] MEDS: amLODIPine BESYLATE 5 MG TABLET PO (08:50)
[2017-11-03] MEDS: ASPIRIN CHEWABLE 81 MG TABLET. PO (08:50)
[2017-11-03] MEDS: LEVOTHYROXINE 50 MCG TABLET PO (08:50)
[2017-11-03] MEDS: CLOPIDOGREL BISULFATE 75 MG TABLET PO (08:51)
[2017-11-03] MEDS: LUBIPROSTONE 8 MCG CAPSULE PO ×2 (08:51→17:20)
[2017-11-03] MEDS: APIXABAN 5 MG TABLET. PO ×2 (08:51→20:38)
[2017-11-03] MEDS: DOCUSATE SODIUM 100 MG CAPSULE. PO ×2 (08:51→20:38)
[2017-11-03] MEDS: DULoxetine HCL 30 MG CAPSULE.DR PO ×2 (08:58→20:39)
[2017-11-03] MEDS: PANTOPRAZOLE 40 MG TABLET.DR. PO ×2 (08:58→17:20)
[2017-11-03] MEDS: predniSONE 20 MG TABLET PO (08:58)
[2017-11-03] MEDS: SENNOSIDES/DOCUSATE 8.6/50MG TABLET. PO ×2 (08:59→20:37)
[2017-11-03] MEDS: METOPROLOL SUCC 24HR ER 50 MG TAB.ER.24H. PO (08:59)
[2017-11-03] MEDS ORDERED: FLUTICASONE 50MCG/NASAL SPRAY 16GM BOTTLE. NS (09:00)
[2017-11-03] MEDS: OXYBUTYNIN CHLORIDE 5 MG TABLET PO ×2 (09:07→20:39)
[2017-11-03] MEDS: PREGABALIN 75 MG CAPSULE PO ×2 (09:07→20:39)
[2017-11-03] MEDS: tiZANidine 4 MG TABLET. PO (09:07)
[2017-11-03] MEDS: CEFPODOXIME PROXETIL 100 MG TABLET. PO ×2 (09:07→20:39)
[2017-11-03] MEDS: INSULIN DETEMIR 300 UNITS/3 ML INSULN.PEN. SQ ×2 (09:23→21:45)
[2017-11-03] MEDS: INSULIN ASPART 300 UNITS/3 ML INSULN.PEN SQ ×5 (09:23→17:27)
[2017-11-03 11:47] LABS: TROPONINI < 0.017 ng/mL (0.000-0.055)
[2017-11-03] MEDS: FUROSEMIDE 40 MG/4 ML VIAL. IVP (12:37)
[2017-11-03] MEDS: IPRATRPIUM/ALBUTEROL 0.5/2.5MG 3 ML NEBU. NEB ×3 (13:09→19:41)
[2017-11-03] MEDS ORDERED: MAGNESIUM SULFATE 2GM 50 ML IV (14:15)
[2017-11-03] MEDS ORDERED: NON FORMULARY ITEM (Dulaglutide (Trulicity) 0.75 MG) SUBCUT (16:00)
[2017-11-03] MEDS: BUMETANIDE 1 MG TABLET. PO (17:20)
[2017-11-03 17:28] LABS: POC GLUCOSE 238 mg/dL (70-99)
[2017-11-03] MEDS: busPIRone 10 MG TABLET. PO (20:39)
[2017-11-03] MEDS: ATORVASTATIN CALCIUM 20 MG TABLET PO (20:39)
[2017-11-03 21:48] LABS: POC GLUCOSE 361 mg/dL (70-99)
[2017-11-04] MEDS: HYDROcodone/APAP 10/325 1 TAB TABLET PO ×3 (00:02→21:02)
[2017-11-04] MEDS: tiZANidine 4 MG TABLET. PO ×2 (00:03→21:01)
[2017-11-04 04:26] LABS: HEMOGLOBIN 13.5 g/dL (12.0-15.5)
[2017-11-04 04:36] LABS: POC GLUCOSE 322 mg/dL (70-99)
[2017-11-04 04:44] LABS: MAGNESIUM 2.2 mg/dL (1.8-2.4)
[2017-11-04 04:48] LABS: ALBUMIN 3.1 g/dL (3.4-5.0); ANION GAP 10 (6-14); BLOOD UREA NITROGEN 44 mg/dL (7-20); CALCIUM 10.2 mg/dL (8.5-10.1); CARBON DIOXIDE 33 mmol/L (21-32); CHLORIDE 96 mmol/L (98-107); CREATININE 1.6 mg/dL (0.6-1.0); GFR 33.5; GLUCOSE 323 mg/dL (70-99); PHOSPHORUS 4.7 mg/dL (2.6-4.7); POTASSIUM 3.8 mmol/L (3.5-5.1); SODIUM 139 mmol/L (136-145)
[2017-11-04] MEDS: IPRATRPIUM/ALBUTEROL 0.5/2.5MG 3 ML NEBU. NEB ×4 (07:39→20:17)
[2017-11-04 07:48] LABS: POC GLUCOSE 208 mg/dL (70-99)
[2017-11-04] MEDS: ANTI-COAG MONITOR BY PHARMACY. MC (08:27)
[2017-11-04] MEDS: CEFPODOXIME PROXETIL 100 MG TABLET. PO (09:17)
[2017-11-04] MEDS: ASPIRIN CHEWABLE 81 MG TABLET. PO (09:17)
[2017-11-04] MEDS: PREGABALIN 75 MG CAPSULE PO ×2 (09:17→21:00)
[2017-11-04] MEDS: LEVOTHYROXINE 50 MCG TABLET PO (09:18)
[2017-11-04] MEDS: DULoxetine HCL 30 MG CAPSULE.DR PO ×2 (09:18→21:01)
[2017-11-04] MEDS: OXYBUTYNIN CHLORIDE 5 MG TABLET PO ×2 (09:18→21:01)
[2017-11-04] MEDS: SPIRONOLACTONE 25 MG TABLET PO (09:18)
[2017-11-04] MEDS: DOCUSATE SODIUM 100 MG CAPSULE. PO ×2 (09:18→21:01)
[2017-11-04] MEDS: SENNOSIDES/DOCUSATE 8.6/50MG TABLET. PO ×2 (09:18→20:59)
[2017-11-04] MEDS: LUBIPROSTONE 8 MCG CAPSULE PO ×2 (09:18→17:15)
[2017-11-04] MEDS: APIXABAN 5 MG TABLET. PO ×2 (09:18→20:59)
[2017-11-04] MEDS: PANTOPRAZOLE 40 MG TABLET.DR. PO ×2 (09:19→17:15)
[2017-11-04] MEDS: CLOPIDOGREL BISULFATE 75 MG TABLET PO (09:19)
[2017-11-04] MEDS: METOPROLOL SUCC 24HR ER 50 MG TAB.ER.24H. PO (09:19)
[2017-11-04] MEDS: BUMETANIDE 1 MG TABLET. PO ×2 (09:19→17:15)
[2017-11-04] MEDS: predniSONE 20 MG TABLET PO (09:19)
[2017-11-04] MEDS: INSULIN ASPART 300 UNITS/3 ML INSULN.PEN SQ ×6 (09:29→17:19)
[2017-11-04] MEDS: INSULIN DETEMIR 300 UNITS/3 ML INSULN.PEN. SQ ×2 (09:31→21:09)
[2017-11-04 16:53] LABS: POC GLUCOSE 93 mg/dL (70-99)
[2017-11-04 20:32] LABS: POC GLUCOSE 198 mg/dL (70-99)
[2017-11-04] MEDS: ATORVASTATIN CALCIUM 20 MG TABLET PO (21:00)
[2017-11-04] MEDS: busPIRone 10 MG TABLET. PO (21:00)
[2017-11-05 05:37] LABS: BASO % 0 % (0-3); EOS # 0.1 x10^3/uL (0.0-0.7); EOS % 1 % (0-3); HEMATOCRIT 40.5 % (36.0-47.0); LYMPH # 4.4 x10^3/uL (1.0-4.8); LYMPH % 35 % (24-48); MEAN CORPUSCULAR HEMOGLOBIN 27 pg (25-35); MEAN CORPUSCULAR HGB CONC 32 g/dL (31-37); MEAN CORPUSCULAR VOLUME 83 fL (79-100); MONO % 8 % (0-9); NEUT # 6.9 x10^3uL (1.8-7.7); NEUT % 56 % (31-73); PLATELET COUNT 391 x10^3/uL (140-400); RED BLOOD COUNT 4.87 x10^6/uL (3.50-5.40); RED CELL DISTRIBUTION WIDTH 15.8 % (11.5-14.5); WHITE BLOOD COUNT 12.4 x10^3/uL (4.0-11.0)
[2017-11-05 05:45] LABS: ADD MAN DIFF? YES
[2017-11-05] MEDS: LEVOTHYROXINE 50 MCG TABLET PO (05:56)
[2017-11-05 06:08] LABS: ALBUMIN 2.8 g/dL (3.4-5.0); ANION GAP 6 (6-14); BLOOD UREA NITROGEN 47 mg/dL (7-20); CALCIUM 9.4 mg/dL (8.5-10.1); CARBON DIOXIDE 38 mmol/L (21-32); CHLORIDE 97 mmol/L (98-107); CREATININE 1.5 mg/dL (0.6-1.0); GFR 36.1; GLUCOSE 181 mg/dL (70-99); PHOSPHORUS 5.8 mg/dL (2.6-4.7); POTASSIUM 3.8 mmol/L (3.5-5.1); SODIUM 141 mmol/L (136-145)
[2017-11-05 06:19] LABS: MAGNESIUM 2.1 mg/dL (1.8-2.4)
[2017-11-05] MEDS: IPRATRPIUM/ALBUTEROL 0.5/2.5MG 3 ML NEBU. NEB ×3 (07:20→16:00)
[2017-11-05 07:28] LABS: POC GLUCOSE 170 mg/dL (70-99)
[2017-11-05 07:56] LABS: % BANDS 3 % (0-9); % EOS 1 % (0-5); % LYMPHS 30 % (24-48); % MONOS 7 % (0-10); % SEGS 59 % (35-66); PLT ESTIMATE ADEQUATE (ADEQUATE)
[2017-11-05] MEDS: DOCUSATE SODIUM 100 MG CAPSULE. PO (07:58)
[2017-11-05] MEDS: DULoxetine HCL 30 MG CAPSULE.DR PO (07:58)
[2017-11-05] MEDS: CLOPIDOGREL BISULFATE 75 MG TABLET PO (07:58)
[2017-11-05] MEDS: APIXABAN 5 MG TABLET. PO (07:59)
[2017-11-05] MEDS: PANTOPRAZOLE 40 MG TABLET.DR. PO (07:59)
[2017-11-05] MEDS: OXYBUTYNIN CHLORIDE 5 MG TABLET PO (07:59)
[2017-11-05] MEDS: LUBIPROSTONE 8 MCG CAPSULE PO (07:59)
[2017-11-05] MEDS: SENNOSIDES/DOCUSATE 8.6/50MG TABLET. PO (07:59)
[2017-11-05] MEDS: ASPIRIN CHEWABLE 81 MG TABLET. PO (07:59)
[2017-11-05] MEDS: SPIRONOLACTONE 25 MG TABLET PO (07:59)
[2017-11-05] MEDS: BUMETANIDE 1 MG TABLET. PO ×2 (07:59→15:20)
[2017-11-05] MEDS: predniSONE 20 MG TABLET PO (08:00)
[2017-11-05] MEDS: PREGABALIN 75 MG CAPSULE PO (08:00)
[2017-11-05] MEDS: HYDROcodone/APAP 10/325 1 TAB TABLET PO (08:01)
[2017-11-05] MEDS: METOPROLOL SUCC 24HR ER 50 MG TAB.ER.24H. PO (08:01)
[2017-11-05] MEDS: INSULIN ASPART 300 UNITS/3 ML INSULN.PEN SQ ×4 (08:08→12:49)
[2017-11-05] MEDS: INSULIN DETEMIR 300 UNITS/3 ML INSULN.PEN. SQ (08:10)
[2017-11-05] MEDS: ANTI-COAG MONITOR BY PHARMACY. MC (09:16)
[2017-11-05 11:38] LABS: POC GLUCOSE 196 mg/dL (70-99)
[2017-11-06 07:05] LABS: POC GLUCOSE 361 mg/dL (70-99)
[2017-11-06 07:06] LABS: POC GLUCOSE 336 mg/dL (70-99)
[2017-11-06 07:06] LABS: POC GLUCOSE 503 mg/dL (70-99)
[2017-11-06 09:11] LABS: TOTAL PROTEIN CREATININE RATIO 333 mg/g creat (0-200); UR CREATININE RD 41.1 mg/dL (Not Estab.); UR PROTEIN RD 13.7 mg/dL (Not Estab.)
== END 2017-11-05 16:13 | disposition home or self-care (01) | DRG 291 ==
LOC: 5 SOUTH 11-03 00:09 → ER 21:46 → 6 SOUTH 23:23
DX: I13.0 Hypertensive heart and chronic kidney disease with heart failure and stage 1 through stage 4 chronic kidney disease, or unspecified chronic kidney disease (principal); J96.20 Acute and chronic respiratory failure, unspecified whether with hypoxia or hypercapnia; E11.22 Type 2 diabetes mellitus with diabetic chronic kidney disease; I50.33 Acute on chronic diastolic (congestive) heart failure; E66.2 Morbid (severe) obesity with alveolar hypoventilation; Z68.42 Body mass index [BMI] 45.0-49.9, adult; E11.65 Type 2 diabetes mellitus with hyperglycemia; Z99.81 Dependence on supplemental oxygen; N18.3 Chronic kidney disease, stage 3 (moderate); G47.33 Obstructive sleep apnea (adult) (pediatric); I25.10 Atherosclerotic heart disease of native coronary artery without angina pectoris; I48.91 Unspecified atrial fibrillation; J44.9 Chronic obstructive pulmonary disease, unspecified; Z82.49 Family history of ischemic heart disease and other diseases of the circulatory system; Z83.3 Family history of diabetes mellitus; Z86.711 Personal history of pulmonary embolism; Z86.73 Personal history of transient ischemic attack (TIA), and cerebral infarction without residual deficits; Z90.710 Acquired absence of both cervix and uterus; F32.9 Major depressive disorder, single episode, unspecified; M10.9 Gout, unspecified; I25.2 Old myocardial infarction; M19.90 Unspecified osteoarthritis, unspecified site; Z90.49 Acquired absence of other specified parts of digestive tract
CPT/HCPCS: 36415; 71045; 80053; 80069; 82570; 82962; 83735; 83880; 84156; 84484; 85007; 85018; 85025; 93005; 94640; 94760; 97162-GP; 97165-GO; J1815; J1940; J2930; J7512; J7620

== ENCOUNTER → 2018-01-30 | Outpatient (CLI) | payer OTHER, MEDICARE | END | disposition home or self-care (01) | LOC: PMGWOUND 11:30 | DX: E11.621 Type 2 diabetes mellitus with foot ulcer (principal); L97.421 Non-pressure chronic ulcer of left heel and midfoot limited to breakdown of skin; L97.411 Non-pressure chronic ulcer of right heel and midfoot limited to breakdown of skin; E11.40 Type 2 diabetes mellitus with diabetic neuropathy, unspecified; I25.2 Old myocardial infarction; E11.51 Type 2 diabetes mellitus with diabetic peripheral angiopathy without gangrene; E78.5 Hyperlipidemia, unspecified; I48.91 Unspecified atrial fibrillation; J44.9 Chronic obstructive pulmonary disease, unspecified; G47.30 Sleep apnea, unspecified; E03.9 Hypothyroidism, unspecified; F32.9 Major depressive disorder, single episode, unspecified; E66.01 Morbid (severe) obesity due to excess calories; E11.42 Type 2 diabetes mellitus with diabetic polyneuropathy; E11.22 Type 2 diabetes mellitus with diabetic chronic kidney disease; M19.90 Unspecified osteoarthritis, unspecified site; I13.0 Hypertensive heart and chronic kidney disease with heart failure and stage 1 through stage 4 chronic kidney disease, or unspecified chronic kidney disease; I50.31 Acute diastolic (congestive) heart failure; N18.3 Chronic kidney disease, stage 3 (moderate); Z90.710 Acquired absence of both cervix and uterus; Z86.711 Personal history of pulmonary embolism; Z86.718 Personal history of other venous thrombosis and embolism; Z86.73 Personal history of transient ischemic attack (TIA), and cerebral infarction without residual deficits; Z95.1 Presence of aortocoronary bypass graft; Z87.891 Personal history of nicotine dependence; Z68.43 Body mass index [BMI] 50.0-59.9, adult | CPT/HCPCS: 93922; 93925; 97597 ==

== ENCOUNTER → 2018-02-06 | Outpatient (CLI) | payer OTHER, MEDICARE | END | disposition home or self-care (01) | LOC: PMGWOUND 08:16 | DX: E11.621 Type 2 diabetes mellitus with foot ulcer (principal); L97.421 Non-pressure chronic ulcer of left heel and midfoot limited to breakdown of skin; L97.411 Non-pressure chronic ulcer of right heel and midfoot limited to breakdown of skin; E11.40 Type 2 diabetes mellitus with diabetic neuropathy, unspecified; I25.2 Old myocardial infarction; E11.51 Type 2 diabetes mellitus with diabetic peripheral angiopathy without gangrene; E78.5 Hyperlipidemia, unspecified; I48.91 Unspecified atrial fibrillation; J44.9 Chronic obstructive pulmonary disease, unspecified; G47.30 Sleep apnea, unspecified; E03.9 Hypothyroidism, unspecified; F32.9 Major depressive disorder, single episode, unspecified; E66.01 Morbid (severe) obesity due to excess calories; E11.42 Type 2 diabetes mellitus with diabetic polyneuropathy; E11.22 Type 2 diabetes mellitus with diabetic chronic kidney disease; M19.90 Unspecified osteoarthritis, unspecified site; I13.0 Hypertensive heart and chronic kidney disease with heart failure and stage 1 through stage 4 chronic kidney disease, or unspecified chronic kidney disease; I50.31 Acute diastolic (congestive) heart failure; N18.3 Chronic kidney disease, stage 3 (moderate); Z90.710 Acquired absence of both cervix and uterus; Z86.711 Personal history of pulmonary embolism; Z86.718 Personal history of other venous thrombosis and embolism; Z86.73 Personal history of transient ischemic attack (TIA), and cerebral infarction without residual deficits; Z95.1 Presence of aortocoronary bypass graft; Z87.891 Personal history of nicotine dependence; Z68.42 Body mass index [BMI] 45.0-49.9, adult | CPT/HCPCS: 99214 ==

== ENCOUNTER → 2018-02-20 | Outpatient (CLI) | payer OTHER, MEDICARE ==
[~2018-02-20] MED LIST changes: -ALPR0.5T PO; -AMIT50TA PO; -AMLO5TAB2 PO; -APIX5TAB PO; -ASPI-482 PO; -ASPI-630 PO; -ATOR20TA58 PO; -BUME1TAB PO; -BUSP10TA PO; -BUSP30TA PO; -BYSTOLIC10 MG PO; -CARV12.5 PO; -CARV25TA PO; -CARV3.12 PO; -CEPH-264 PO; -CLON0.1T PO; -CLOP75TA PO; -DABI150C PO; -DOCU-109 PO; -DOXE50CA PO; -DULO60CA44 PO; -DULO60CA6 PO; -ESOM40CA PO; -FENO134C PO; -FLUC150T PO; -FLUT9.9S NS; -FURO20TA3 PO; -FURO40TA4 PO; -FURO80TA72 PO; -HYDR-2766 PO; -Hydralazine Hcl PO; -INSU100I11 SQ; -INSU100I13 SQ; -INSU100I16 SQ; -INSU100I27 SQ; -INSU100V8 SQ; -INSU200I SQ; -IPRA3AMP NEB; -ISOS20TA2 PO; -ISOS30TA4 PO; -ISOS60TA2 PO; -LEVO250T7 PO; -LEVO50TA5 PO; -LIDO700A39 TP; -LIRA0.6P SQ; -LISI-334 PO; -LISI10TA2 PO; -LISI40TA PO; -LUBI8CAP4 PO; -METF-620 PO; -METO-239 PO; -METO2.5T PO; -METO25TA4 PO; -METO50TA6 PO; -MOME13HF IH; -Metolazone PO; -Metronidazole PO; -NITR0.4T SL; -OLME1TAB25 PO; -OXYB10TA PO; -OXYB5TAB PO; -POTA20TA4 PO; -PRED20TA PO; -PREG150C PO; -PREG75CA PO; -PROM118S2 PO; -RANO500T2 PO; -SENN-22 PO; +SIMETHICONE/SOD BICARB/CITRIC ACID PACKET. PO; -SPIR25TA3 PO; -TIZA4CAP3 PO; -TRIM100T13 PO; -VENTOLIN HFA18 GM INH
[2018-02-20] MEDS: BARIUM SULFATE 60% 355 ML SUSP PO (08:38)
[2018-02-20] MEDS: BARIUM SULFATE 340 GM SUSPENSION. PO (08:39)
== END | disposition home or self-care (01) ==
LOC: RAD 08:01
DX: R13.10 Dysphagia, unspecified (principal)
CPT/HCPCS: 74220

== ENCOUNTER → 2018-04-08 | Outpatient (CLI) | payer OTHER, MEDICARE | END | disposition home or self-care (01) | DX: S63.105A Unspecified dislocation of left thumb, initial encounter (principal); X58.XXXA Exposure to other specified factors, initial encounter; Y93.89 Activity, other specified; Y92.89 Other specified places as the place of occurrence of the external cause; Y99.2 Volunteer activity | CPT/HCPCS: 73140 ==

== ENCOUNTER 2018-05-05 00:10 | Inpatient (IN) | payer OTHER, MEDICARE ==
[~2018-05-05] VITALS: Ht 152.4 cm; Wt 122.5 kg
[~2018-05-05 00:10] MED LIST changes: +ALPR0.5T PO; +AMIT50TA PO; +AMLO5TAB2 PO; +AMOX1TAB11 PO; +APIX5TAB PO; +ASPI-482 PO; +ASPI-630 PO; +ATOR20TA58 PO; +BUME1TAB PO; +BUSP10TA PO; +BUSP30TA PO; +BYSTOLIC10 MG PO; +CARV12.5 PO; +CARV25TA PO; +CARV3.12 PO; +CEFP100T PO; +CEPH-264 PO; +CLON0.1T PO; +CLOP75TA PO; +DABI150C PO; +DOCU-109 PO; +DOXE50CA PO; +DULA0.75 SUBCUT; +DULO60CA44 PO; +DULO60CA6 PO; +ESOM40CA PO; +FENO134C PO; +FLUC150T PO; +FLUT9.9S NS; +FURO20TA3 PO; +FURO40TA4 PO; +FURO80TA72 PO; +HYDR-2766 PO; +Hydralazine Hcl PO; +INSU100I11 SQ; +INSU100I13 SQ; +INSU100I16 SQ; +INSU100I27 SQ; +INSU100V8 SQ; +INSU200I SQ; +IPRA3AMP29 NEB; +ISOS20TA2 PO; +ISOS30TA4 PO; +ISOS60TA2 PO; +LEVO250T7 PO; +LEVO50TA5 PO; +LIDO700A39 TP; +LINE600T PO; +LIRA0.6P SQ; +LISI-130 PO; +LISI-334 PO; +LISI10TA2 PO; +LUBI8CAP4 PO; +MAGN400T22 PO; +METF10003 PO; +METO-239 PO; +METO2.5T PO; +METO25TA4 PO; +METO50TA6 PO; +MOME13HF IH; +Metolazone PO; +Metronidazole PO; +NITR0.4T SL; +NYST100054 PO; +OLME1TAB25 PO; +OXYB10TA PO; +OXYB5TAB PO; +POTA20TA4 PO; +PRED20TA PO; +PREG150C PO; +PREG75CA PO; +PROM118S5 PO; +RANO500T2 PO; +SENN-22 PO; -SIMETHICONE/SOD BICARB/CITRIC ACID PACKET. PO; +SPIR25TA5 PO; +TIZA4CAP3 PO; +TRIM100T13 PO; +VENTOLIN HFA18 GM INH
[2018-05-05] MEDS ORDERED: MORPHINE SULFATE 2 MG/ML VIAL. IV/SQ PRN (00:30)
[2018-05-05] MEDS ORDERED: ALBUTEROL SULFATE 2.5 MG/3 ML NEBU. NEB ONE (00:30)
[2018-05-05] MEDS ORDERED: methylPREDNISolone SOD SUCC PF 125 MG/2 ML VIAL. IV ONE (00:30)
[2018-05-05] MEDS ORDERED: IPRATROPIUM BROMIDE 0.5 MG/2.5 ML NEBU. NEB ONE (00:30)
--- NOTE | 2018-05-05 00:42 | PHYS DOC ---
Past Medical History Past Medical History: A-Fib, CHF, COPD, Diabetes-Type II, Renal Failure Additional Past Medical Histor: 7 stents, 3 heart attacks Past Surgical History: Angioplasty, Hysterectomy, Lumbar Laminectomy Additional Past Surgical Histo: thoracotomy, 2 exlporatory surgeries, lumpectomy right breast, Alcohol Use: None Drug Use: None Adult General Chief Complaint Chief Complaint: DYSPNEA/RESPIRATOY DISTRESS HPI HPI Patient is a 57-year-old female who presents with complaint of shortness of breath that started 2 days ago. Patient states that throughout the day today, shortness of breath has been getting progressively worse. Patient was brought in by EMS reports that patient was giving herself a breathing treatment at home and her oxygen saturation was in the mid 80s on her normal 3 L of oxygen. Patient was given an additional 2 doses of albuterol while in route and O2 sat, to 100% on 6 L of oxygen. Patient also indicates that she is having chest discomfort that she describes as tightness for the last hour. She also indicates that she has a lot of swelling in her lower extremities that has been worsening over the last few days. She denies any significant cough. Review of Systems Review of Systems Constitutional: Denies fever or chills [] Respiratory: Complains of shortness of breath and wheezing[] Cardiovascular: Complains of chest tightness[] GI: Denies abdominal pain, nausea, vomiting or diarrhea [] Musculoskeletal: Complains of bilateral leg pain, swelling and redness[] Integument: Complains of erythema to the lower extremities bilaterally[] All other systems were reviewed and found to be within normal limits, except as documented in this note. Current Medications Current Medications Current Medications Medications (Trade) Dose Ordered Sig/Jesus Manuel Start Time Stop Time Status Last Admin Dose Admin Albuterol Sulfate (Ventolin Neb Soln) 5 mg 1X ONCE 05/05/18 00:30 05/05/18 00:31 DC 05/05/18 00:30 5 MG Furosemide (Lasix) 60 mg 1X ONCE 05/05/18 02:15 05/05/18 02:16 DC 05/05/18 03:01 60 MG Ipratropium Morton (Atrovent) 0.5 mg 1X ONCE 05/05/18 00:30 05/05/18 00:31 DC 05/05/18 00:30 0.5 MG Methylprednisolone Sodium Succinate (SOLU-Medrol 125MG VIAL) 125 mg 1X ONCE 05/05/18 00:30 05/05/18 00:31 DC 05/05/18 00:56 125 MG Morphine Sulfate (Morphine Sulfate) 2 mg PRN Q15MIN PRN 05/05/18 00:30 05/06/18 00:29 05/05/18 00:57 2 MG Allergies Allergies Allergies Coded Allergies Type Severity Reaction Last Updated Verified No Known Drug Allergies 12/23/16 No Physical Exam Physical Exam Constitutional: Well developed, well nourished, in mild respiratory distress. [] HENT: Normocephalic, atraumatic, bilateral external ears normal, oropharynx moist, no oral exudates, nose normal. [] Eyes: PERRLA, EOMI, conjunctiva normal, no discharge. [] Neck: Normal range of motion, no tenderness, supple, no stridor. [] Cardiovascular:Heart rate regular rhythm, no murmur [] Lungs & Thorax: Decreased breath sounds are noted bilaterally with fine inspiratory and expiratory wheezes[] Abdomen: Bowel sounds normal, nontender. [] Skin: Warm, dry. Erythema is noted to the lower legs bilaterally. [] Extremities: There is no clubbing or cyanosis. There is 2-3+ pitting edema up to the distal thigh bilaterally. [] Neurologic: Alert and oriented X 3. [] Current Patient Data Vital Signs Vital Signs Date Time Temp Pulse Resp B/P (MAP) Pulse Ox O2 Delivery O2 Flow Rate FiO2 05/05/18 01:54 95 Nasal Cannula 3.0 05/05/18 00:57 16 05/05/18 00:13 98.1 92 143/72 (95) 98.1 Lab Values Laboratory Tests Test 05/05/18 00:45 05/05/18 01:01 White Blood Count 13.3 x10^3/uL (4.0-11.0) H Red Blood Count 3.41 x10^6/uL (3.50-5.40) L Hemoglobin 8.3 g/dL (12.0-15.5) L Hematocrit 26.6 % (36.0-47.0) L Mean Corpuscular Volume 78 fL (79-100) L Mean Corpuscular Hemoglobin 25 pg (25-35) Mean Corpuscular Hemoglobin Concent 31 g/dL (31-37) Red Cell Distribution Width 17.4 % (11.5-14.5) H Platelet Count 339 x10^3/uL (140-400) Neutrophils (%) (Auto) 68 % (31-73) Lymphocytes (%) (Auto) 22 % (24-48) L Monocytes (%) (Auto) 7 % (0-9) Eosinophils (%) (Auto) 3 % (0-3) Basophils (%) (Auto) 1 % (0-3) Neutrophils # (Auto) 9.0 x10^3uL (1.8-7.7) H Lymphocytes # (Auto) 2.9 x10^3/uL (1.0-4.8) Monocytes # (Auto) 0.9 x10^3/uL (0.0-1.1) Eosinophils # (Auto) 0.4 x10^3/uL (0.0-0.7) Basophils # (Auto) 0.1 x10^3/uL (0.0-0.2) Sodium Level 140 mmol/L (136-145) Potassium Level 5.0 mmol/L (3.5-5.1) Chloride Level 101 mmol/L (98-107) Carbon Dioxide Level 33 mmol/L (21-32) H Anion Gap 6 (6-14) Blood Urea Nitrogen 57 mg/dL (7-20) H Creatinine 1.6 mg/dL (0.6-1.0) H Estimated GFR (Cockcroft-Gault) 33.5 BUN/Creatinine Ratio 36 (6-20) H Glucose Level 225 mg/dL (70-99) H Calcium Level 8.8 mg/dL (8.5-10.1) Total Bilirubin 0.2 mg/dL (0.2-1.0) Aspartate Amino Transferase (AST) 23 U/L (15-37) Alanine Aminotransferase (ALT) 36 U/L (14-59) Alkaline Phosphatase 213 U/L (46-116) H Troponin I Quantitative < 0.017 ng/mL (0.000-0.055) TZ-Vct-Y-Type Natriuretic Peptide 1082 pg/mL (0-124) H Total Protein 7.1 g/dL (6.4-8.2) Albumin 2.8 g/dL (3.4-5.0) L Albumin/Globulin Ratio 0.7 (1.0-1.7) L O2 Saturation 93 % (92-99) Arterial Blood pH 7.39 (7.35-7.45) Arterial Blood pCO2 at Patient Temp 51 mmHg (35-46) H Arterial Blood pO2 at Patient Temp 70 mmHg (75-108) L Arterial Blood HCO3 31 mmol/L (21-28) H Arterial Blood Base Excess 5 mmol/L (-3-3) H FiO2 32 Laboratory Tests 05/05/18 00:45 Laboratory Tests 05/05/18 00:45 EKG EKG [] Interpretation Time: EKG demonstrates a normal sinus rhythm with rate of 90. Radiology/Procedures Radiology/Procedures [] Impressions: Chest x-ray demonstrates findings consistent with CHF. Course & Med Decision Making Course & Med Decision Making Pertinent Labs and Imaging studies reviewed. (See chart for details) [] Dragon Disclaimer Dragon Disclaimer This electronic medical record was generated, in whole or in part, using a voice recognition dictation system. Departure Departure Impression: Primary Impression: Acute on chronic congestive heart failure Additional Impression: COPD exacerbation Disposition: ADMITTED INPATIENT Admitting Physician: Xie. Haley Condition: IMPROVED Referrals: JOSE BLAKELY MD (PCP) Problem Qualifiers Primary Impression: Acute on chronic congestive heart failure Heart failure type: unspecified Qualified Codes: I50.9 - Heart failure, unspecified CHENG KLEIN Jr. DO May 05, 2018 00:42
[2018-05-05 01:08] LABS: BASO # 0.1 x10^3/uL (0.0-0.2); BASO % 1 % (0-3); EOS # 0.4 x10^3/uL (0.0-0.7); EOS % 3 % (0-3); HEMATOCRIT 26.6 % (36.0-47.0); HEMOGLOBIN 8.3 g/dL (12.0-15.5); LYMPH # 2.9 x10^3/uL (1.0-4.8); LYMPH % 22 % (24-48); MEAN CORPUSCULAR HEMOGLOBIN 25 pg (25-35); MEAN CORPUSCULAR HGB CONC 31 g/dL (31-37); MEAN CORPUSCULAR VOLUME 78 fL (79-100); MONO # 0.9 x10^3/uL (0.0-1.1); MONO % 7 % (0-9); NEUT % 68 % (31-73); PLATELET COUNT 339 x10^3/uL (140-400); RED BLOOD COUNT 3.41 x10^6/uL (3.50-5.40); RED CELL DISTRIBUTION WIDTH 17.4 % (11.5-14.5); WHITE BLOOD COUNT 13.3 x10^3/uL (4.0-11.0)
[2018-05-05 01:32] LABS: CALCIUM 8.8 mg/dL (8.5-10.1); CREATININE 1.6 mg/dL (0.6-1.0); GFR 33.5
[2018-05-05 01:38] LABS: ALBUMIN 2.8 g/dL (3.4-5.0); ALBUMIN/GLOBULIN RATIO 0.7 (1.0-1.7); TOTAL BILIRUBIN 0.2 mg/dL (0.2-1.0); TOTAL PROTEIN 7.1 g/dL (6.4-8.2)
[2018-05-05 01:56] LABS: BASE EXCESS ABG 5 mmol/L (-3-3); HCO3 ABG 31 mmol/L (21-28); PCO2 ABG 51 mmHg (35-46); PO2 ABG 70 mmHg (75-108); SAT O2 ABG 93 % (92-99)
[2018-05-05 01:57] LABS: FIO2 ABG 32
[2018-05-05] MEDS ORDERED: FUROSEMIDE 40 MG/4 ML VIAL. IVP ONE (02:15)
[2018-05-05] MEDS ORDERED: ACETAMINOPHEN 325 MG TABLET. PO PRN (03:30)
[2018-05-05 05:06] VITALS: BP 140/65
--- NOTE | 2018-05-05 05:42 | EKG ---
[facility] [address] [place] [address] Test Date: 2018-05-05 Test Time: 00:12:32 Pat Name: EVELIA TAI Department: Room: 252 1 Gender: Female Membership Secretary: : [id number] Requested By: CHENG KLEIN Order Number: [id number] Reading MD: Ash Howard MD Measurements Intervals [place] Rate: 90 P: OK: QRS: 4 QRSD: 80 T: 59 QT: 348 QTc: 430 Interpretive Statements SR Electronically Signed On 05-14-2018 11:14:25 CDT by Ash Howard MD
[2018-05-05 07:00] VITALS: BP 140/62
--- NOTE | 2018-05-05 08:12 | RAD ---
Portable chest, 05/05/2018: HISTORY: Shortness of breath Comparison is made to a study from 03/03/2018. The right PICC has been removed. The patient is rotated to the right. The heart is enlarged. The pulmonary vascularity appears congested. There are prominent epicardial fat pads contribute into the basilar opacities. There are interstitial opacities with fissural thickening in the right lower chest compatible with mild interstitial edema. No definite pleural fluid is seen. IMPRESSION: Mild congestive heart failure with interstitial pulmonary edema. Electronically signed by: Caleb Carolina MD (05/05/2018 8:09 AM) [facility]
[2018-05-05] MEDS ORDERED: C.DIFF MED SCREEN BY RX. MC ONE (09:00)
[2018-05-05] MEDS: IPRATRPIUM/ALBUTEROL 0.5/2.5MG 3 ML NEBU. NEB SCH ×4 (09:19→19:46)
[2018-05-05 11:00] VITALS: BP 148/74
[2018-05-05] MEDS ORDERED: NON FORMULARY ITEM (Albuterol Sulfate (Ventolin Hfa Inhaler) 2 PUFF) INH PRN (11:00)
[2018-05-05] MEDS ORDERED: NITROGLYCERIN SUBLINGUAL 0.4 MG BOTTLE OF 25. SL PRN (11:00)
[2018-05-05] MEDS ORDERED: DEXTROSE 50% 25 GM / 50ML DISP.SYRIN. IV PRN ×2 (11:00→11:15)
[2018-05-05] MEDS ORDERED: FLUTICASONE 50MCG/NASAL SPRAY 16GM BOTTLE. NS PRN (11:09)
[2018-05-05] MEDS: APIXABAN 5 MG TABLET. PO SCH ×2 (11:29→21:45)
[2018-05-05] MEDS: ALPRAZolam 0.5 MG TABLET PO PRN ×2 (11:29→21:44)
[2018-05-05] MEDS ORDERED: INSULIN GLARGINE 300 UNITS/3 ML INSULN.PEN. SQ SCH ×2 (11:30→21:00)
[2018-05-05] MEDS ORDERED: INSULIN LISPRO 300 UNITS/3 ML INSULN.PEN. SQ SCH ×2 (11:30→12:00)
[2018-05-05] MEDS: PREGABALIN 75 MG CAPSULE PO SCH ×2 (11:30→21:43)
[2018-05-05] MEDS: METOPROLOL SUCC 24HR ER 50 MG TAB.ER.24H. PO SCH (11:30)
[2018-05-05] MEDS: DULoxetine HCL 30 MG CAPSULE.DR PO SCH ×2 (11:30→21:42)
[2018-05-05] MEDS: ASPIRIN CHEWABLE 81 MG TABLET. PO SCH (11:30)
[2018-05-05] MEDS: amLODIPine BESYLATE 5 MG TABLET PO SCH (11:30)
[2018-05-05] MEDS ORDERED: BUMETANIDE 1 MG TABLET. PO SCH (11:30)
[2018-05-05] MEDS ORDERED: ALBUTEROL SULFATE 2.5 MG/3 ML NEBU. NEB PRN ×2 (11:30)
[2018-05-05] MEDS: OXYBUTYNIN CHLORIDE 5 MG TABLET PO SCH ×2 (11:30→21:44)
[2018-05-05] MEDS: LUBIPROSTONE 8 MCG CAPSULE PO SCH ×2 (11:31→16:15)
[2018-05-05] MEDS: PANTOPRAZOLE 40 MG TABLET.DR. PO SCH ×2 (11:31→16:15)
[2018-05-05] MEDS: FUROSEMIDE 40 MG/4 ML VIAL. IVP SCH ×2 (11:31→13:52)
[2018-05-05] MEDS: SPIRONOLACTONE 25 MG TABLET PO SCH (11:31)
[2018-05-05] MEDS: DOCUSATE SODIUM 100 MG CAPSULE. PO SCH ×2 (11:31→21:46)
[2018-05-05] MEDS: SENNOSIDES/DOCUSATE 8.6/50MG TABLET. PO SCH ×2 (11:31→21:45)
[2018-05-05] MEDS ORDERED: BUDESONIDE 0.5 MG/2 ML NEBU. NEB ONE (12:00)
[2018-05-05] MEDS: INSULIN LISPRO 300 UNITS/3 ML INSULN.PEN. SQ SCH ×4 (12:15→17:37)
[2018-05-05] MEDS: LEVOTHYROXINE 50 MCG TABLET PO SCH (13:57)
[2018-05-05] MEDS ORDERED: FUROSEMIDE 100 MG/10 ML VIAL. IVP ONE (14:00)
--- NOTE | 2018-05-05 14:24 | PDOC2 ---
CONSULT Date of Consult Date of Consult DATE: 05/05/18 TIME: 14:14 Reason for Consult Reason for Consult: Dyspnea Referring Physician Referring Physician: Dr. Hernandez Identification/Chief Complaint Chief Complaint Dyspnea History of Present Illness Reason for Visit: This patient is a 57-year-old lady that is above her ideal body weight and has had multiple admissions to this institution. She is Known coronary artery disease, previous MIs, multiple stents, CHF and is a diabetic with COPD. The patient is severely deconditioned. She comes in with progressive dyspnea in acute respiratory distress. On arrival to the ER she was complaining of not being able to breathe and feeling very tight in the chest. She was admitted for further treatment. At the time that I saw her she still in respiratory distress and complaining of being short of breath but able to eat. Past Medical History Cardiovascular: AFIB, CAD, CHF, HTN, Hyperlipidemia, Other Pulmonary: COPD, Pulmonary embolus, Other CENTRAL NERVOUS SYSTEM: CVA, Periperal neuropathy, Other GI: Other Heme/Onc: No pertinent hx Hepatobiliary: No pertinent hx Psych: Depression, Other Musculoskeletal: low back pain, Osteoarthritis Rheumatologic: Gout Infectious disease: No pertinent hx Renal/: UTI, Urinary Incontinence Endocrine: Diabetes Past Surgical History Past Surgical History: Cholecystectomy, Hernia Repair, Hysterectomy, Other Family History Family History: Coronary Artery Disease, Diabetes, Kidney Disease Social History ALCOHOL: none Drugs: None Lives: with Family Current Problem List Problem List Problems Medical Problems: (1) Acute on chronic congestive heart failure Status: Acute (2) COPD exacerbation Status: Acute Current Medications Current Medications Current Medications Ipratropium Coleman (Atrovent) 0.5 mg 1X ONCE NEB Last administered on at 00:30; Start 05/05/18 at 00:30; Stop 05/05/18 at 00:31; Status DC Methylprednisolone Sodium Succinate (SOLU-Medrol 125MG VIAL) 125 mg 1X ONCE IV Last administered on 05/05/18at 00:56; Start 05/05/18 at 00:30; Stop 05/05/18 at 00:31; Status DC Morphine Sulfate (Morphine Sulfate) 2 mg PRN Q15MIN PRN IV/SQ PAIN GREATER THAN 3/10 Last administered on 05/05/18at 00:57; Start 05/05/18 at 00:30; Stop at 00:29 Albuterol Sulfate (Ventolin Neb Soln) 5 mg 1X ONCE NEB Last administered on 08/12at 00:30; Start 05/05/18 at 00:30; Stop 05/05/18 at 00:31; Status DC Furosemide (Lasix) 60 mg 1X ONCE IVP Last administered on 05/05/18at 03:01; Start 05/05/18 at 02:15; Stop 05/05/18 at 02:16; Status DC Acetaminophen (Tylenol) 650 mg PRN Q4HRS PRN PO FEVER; Start 05/05/18 at 03:30 ; Stop 05/06/18 at 03:29 Albuterol/ Ipratropium (Duoneb) 3 ml RTQID NEB Last administered on 05/05/18at 11:34; Start 05/05/18 at 08:00; Stop 05/06/18 at 07:59 Pharmacy Consult (C.diff Med Screen By Rx) 1 each 1X ONCE [facility] ; Start 05/05/18 at 09:00; Stop 05/05/18 at 09:01; Status Cancel Lactobacillus Rhamnosus (Culturelle) 1 cap BID PO ; Start 05/05/18 at 21:00 Alprazolam (Xanax) 0.5 mg PRN Q6HRS PRN PO ANXIETY / AGITATION Last administered on 05/05/18at 11:29; Start 05/05/18 at 11:00 Amlodipine Besylate (Norvasc) 5 mg DAILY PO Last administered on 05/05/18at 11: 30; Start 05/05/18 at 11:30 Apixaban (Eliquis) 5 mg BID PO Last administered on 05/05/18at 11:29; Start 08/12 at 11:30 Aspirin (Children'S Aspirin) 81 mg DAILY PO Last administered on 05/05/18at 11: 30; Start 05/05/18 at 11:30 Atorvastatin Calcium (Lipitor) 40 mg HS PO ; Start 05/05/18 at 21:00 Bumetanide (Bumex) 1 mg BID92 PO ; Start 05/05/18 at 11:30; Status Cancel Docusate Sodium (Colace) 100 mg BID PO Last administered on 05/05/18at 11:31; Start 05/05/18 at 11:30 Insulin Human Lispro (HumaLOG) 40 units TIDAC SQ ; Start 05/05/18 at 11:30; Stop 05/05/18 at 11:30; Status DC Albuterol Sulfate (Ventolin Neb Soln) 2.5 mg PRN QID PRN NEB SHORTNESS OF BREATH; Start 05/05/18 at 11:30; Stop 05/05/18 at 11:30; Status DC Lubiprostone (Amitiza) 8 mcg BIDWMEALS PO Last administered on 05/05/18at 11:31 ; Start 05/05/18 at 11:30 Metoprolol Succinate (Toprol Xl) 50 mg DAILY PO Last administered on 05/05/18at 11:30; Start 05/05/18 at 11:30 Nitroglycerin (Nitrostat) 0.4 mg PRN Q5MIN PRN SL CP RATING > 1/10; Start 05/05 at 11:00 Senna/Docusate Sodium (Senna Plus) 1 tab BID PO Last administered on 05/05/18at 11:31; Start 05/05/18 at 11:30 Non-Formulary Medication (Albuterol Sulfate (Ventolin Hfa Inhaler)) 2 puff PRN Q4HRS PRN INH SHORTNESS OF BREATH; Start 05/05/18 at 11:00; Status UNV Doxepin HCl (SINEquan) 50 mg PRN QHS PRN PO INSOMNIA; Start 05/05/18 at 21:00 Non-Formulary Medication (Dulaglutide (Trulicity)) 0.75 mg QFR SUBCUT ; Start at 16:00; Status UNV Duloxetine HCl (Cymbalta) 60 mg BID PO Last administered on 05/05/18at 11:30; Start 05/05/18 at 11:30 Pantoprazole Sodium (Protonix) 40 mg BIDAC PO Last administered on 05/05/18at 11 :31; Start 05/05/18 at 11:30 Fluticasone Propionate (Flonase) 2 spray PRN DAILY PRN NS ALLERGIES; Start 08/12 at 11:09 Insulin Glargine (Lantus) 65 units BID SQ ; Start 05/05/18 at 11:30; Stop at 11:30; Status DC Levothyroxine Sodium (Synthroid) 50 mcg DAILY07 PO Last administered on at 13:57; Start 05/05/18 at 11:30 Oxybutynin Chloride (Ditropan) 2.5 mg BID PO Last administered on 05/05/18at 11: 30; Start 05/05/18 at 11:30 Pregabalin (Lyrica) 150 mg BID PO Last administered on 05/05/18at 11:30; Start 05/05/18 at 11:30 Spironolactone (Aldactone) 25 mg DAILY PO Last administered on 05/05/18at 11:31 ; Start 05/05/18 at 11:30 Insulin Human Lispro (HumaLOG) 0-9 UNITS TIDWMEALS SQ ; Start 05/05/18 at 12:00 ; Status Cancel Dextrose (Dextrose 50%-Water Syringe) 12.5 gm PRN Q15MIN PRN IV SEE COMMENTS; Start 05/05/18 at 11:00 Insulin Human Lispro (HumaLOG) 35 units TIDAC SQ Last administered on at 12:15; Start 05/05/18 at 11:30 Non-Formulary Medication (60) 65 unit BID SQ ; Start 05/05/18 at 21:00; Status UNV Insulin Human Lispro (HumaLOG) 0-9 UNITS TIDWMEALS SQ Last administered on 05/05at 12:15; Start 05/05/18 at 12:00 Dextrose (Dextrose 50%-Water Syringe) 12.5 gm PRN Q15MIN PRN IV SEE COMMENTS; Start 05/05/18 at 11:15; Status UNV Furosemide (Lasix) 40 mg BID92 IVP Last administered on 05/05/18at 11:31; Start 05/05/18 at 11:30 Insulin Glargine (Lantus) 60 units BID SQ ; Start 05/05/18 at 21:00 Albuterol Sulfate (Ventolin Neb Soln) 2.5 mg PRN Q4HRS PRN NEB SHORTNESS OF BREATH; Start 05/05/18 at 11:30 Acetaminophen/ Hydrocodone Bitart (Lortab 10/325) 1 tab PRN Q6HRS PRN PO MODERATE TO SEVERE PAIN; Start 05/05/18 at 11:45 Budesonide (Pulmicort) 0.5 mg 1X ONCE NEB Last administered on 05/05/18at 12:08 ; Start 05/05/18 at 12:00; Stop 05/05/18 at 12:01; Status DC Budesonide (Pulmicort) 0.5 mg RTBID NEB ; Start 05/05/18 at 20:00 Furosemide (Lasix) 80 mg 1X ONCE IVP Last administered on 05/05/18at 13:57; Start 05/05/18 at 14:00; Stop 05/05/18 at 14:01; Status DC Active Scripts Active Colace (Docusate Sodium) 100 Mg Capsule 100 Mg PO BID Senna-Time S Tablet (Sennosides/Docusate Sodium) 1 Each Tablet 1 Tab PO BID Amitiza (Lubiprostone) 8 Mcg Capsule 8 Mcg PO BIDWMEALS Nitrostat (Nitroglycerin) 0.4 Mg Tab.subl 0.4 Mg SL PRN Q5MIN PRN 30 Days Reported Spironolactone 25 Mg Tablet 1 Tab PO DAILY Bumetanide 1 Mg Tablet 1 Tab PO BID92 Duloxetine Hcl 60 Mg Capsule.dr 60 Mg PO BID Trulicity (Dulaglutide) 0.75 Mg/0.5 Ml Pen.injctr 0.75 Mg SUBCUT QFR Amlodipine Besylate 5 Mg Tablet 5 Mg PO DAILY Levemir Flextouch (Insulin Detemir) 100 Unit/1 Ml Insuln.pen 65 Unit SQ BID Xanax (Alprazolam) 0.5 Mg Tablet 0.5 Mg PO PRN Q6HRS PRN Ventolin Hfa Inhaler (Albuterol Sulfate) 18 Gm Hfa.aer.ad 2 Puff INH PRN Q4HRS PRN Oxybutynin Chloride Er (Oxybutynin Chloride) 5 Mg Tab.er.24 1 Tab PO DAILY Duoneb 0.5-3(2.5) Mg/3 Ml (Albuterol/Ipratropium) 3 Ml Ampul.neb 3 Ml NEB PRN QID PRN Flonase Allergy Relief (Fluticasone Propionate) 9.9 Ml [place].susp 2 Sprays NS PRN PRN Doxepin Hcl 50 Mg Capsule 1 Cap PO PRN QHS PRN Clonidine Hcl 0.1 Mg Tablet 1 Tab PO PRN PRN When SBP >150 Humalog (Insulin Lispro) 100 Unit/1 Ml Insuln.pen 40 Unit SQ TIDAC Eliquis (Apixaban) 5 Mg Tablet 5 Mg PO BID Metoprolol Succinate ( Xl ) (Metoprolol Succinate) 25 Mg Tab.er.24h 2 Tab PO DAILY Lyrica (Pregabalin) 150 Mg Capsule 1 Cap PO BID Atorvastatin Calcium 20 Mg Tablet 2 Tab PO HS Nexium Capsule (Esomeprazole Magnesium) 40 Mg Capsule.dr 1 Cap PO BID Aspirin 81 Mg Tab.chew 1 Tab PO DAILY Levothyroxine Sodium 50 Mcg Tablet 1 Tab PO DAILY Allergies Allergies: Coded Allergies: No Known Drug Allergies (Unverified , 12/23/16) Physical Exam General: Alert, Oriented X3, Cooperative, mild distress HEENT: PERRLA Lungs: Other (markedly decreased breath sounds with bibasilar Rales and mild wheezing) Heart: Other (irregularly irregular, S1, S2, no rubs) Abdomen: Normal bowel sounds, Soft Extremities: Other (3+ pitting edema bilaterally) Vitals VITALS Vital Signs Date Time Temp Pulse Resp B/P (MAP) Pulse Ox O2 Delivery O2 Flow Rate FiO2 05/05/18 12:08 Nasal Cannula 3.0 05/05/18 11:30 93 140/62 05/05/18 11:00 97.8 18 95 97.8 Labs Labs Laboratory Tests Test 05/05/18 00:45 05/05/18 01:01 05/05/18 07:00 05/05/18 07:41 White Blood Count 13.3 x10^3/uL (4.0-11.0) Red Blood Count 3.41 x10^6/uL (3.50-5.40) Hemoglobin 8.3 g/dL (12.0-15.5) Hematocrit 26.6 % (36.0-47.0) Mean Corpuscular Volume 78 fL (79-100) Mean Corpuscular Hemoglobin 25 pg (25-35) Mean Corpuscular Hemoglobin Concent 31 g/dL (31-37) Red Cell Distribution Width 17.4 % (11.5-14.5) Platelet Count 339 x10^3/uL (140-400) Neutrophils (%) (Auto) 68 % (31-73) Lymphocytes (%) (Auto) 22 % (24-48) Monocytes (%) (Auto) 7 % (0-9) Eosinophils (%) (Auto) 3 % (0-3) Basophils (%) (Auto) 1 % (0-3) Neutrophils # (Auto) 9.0 x10^3uL (1.8-7.7) Lymphocytes # (Auto) 2.9 x10^3/uL (1.0-4.8) Monocytes # (Auto) 0.9 x10^3/uL (0.0-1.1) Eosinophils # (Auto) 0.4 x10^3/uL (0.0-0.7) Basophils # (Auto) 0.1 x10^3/uL (0.0-0.2) Sodium Level 140 mmol/L (136-145) Potassium Level 5.0 mmol/L (3.5-5.1) Chloride Level 101 mmol/L (98-107) Carbon Dioxide Level 33 mmol/L (21-32) Anion Gap 6 (6-14) Blood Urea Nitrogen 57 mg/dL (7-20) Creatinine 1.6 mg/dL (0.6-1.0) Estimated GFR (Cockcroft-Gault) 33.5 BUN/Creatinine Ratio 36 (6-20) Glucose Level 225 mg/dL (70-99) Calcium Level 8.8 mg/dL (8.5-10.1) Total Bilirubin 0.2 mg/dL (0.2-1.0) Aspartate Amino Transf (AST/SGOT) 23 U/L (15-37) Alanine Aminotransferase (ALT/SGPT) 36 U/L (14-59) Alkaline Phosphatase 213 U/L (46-116) Troponin I Quantitative < 0.017 ng/mL (0.000-0.055) < 0.017 ng/mL (0.000-0.055) YD-Zqg-D-Type Natriuretic Peptide 1082 pg/mL (0-124) Total Protein 7.1 g/dL (6.4-8.2) Albumin 2.8 g/dL (3.4-5.0) Albumin/Globulin Ratio 0.7 (1.0-1.7) O2 Saturation 93 % (92-99) Arterial Blood pH 7.39 (7.35-7.45) Arterial Blood pCO2 at Patient Temp 51 mmHg (35-46) Arterial Blood pO2 at Patient Temp 70 mmHg (75-108) Arterial Blood HCO3 31 mmol/L (21-28) Arterial Blood Base Excess 5 mmol/L (-3-3) FiO2 32 Glucose (Fingerstick) 267 mg/dL (70-99) Test 05/05/18 11:54 Glucose (Fingerstick) 344 mg/dL (70-99) Laboratory Tests Test 05/05/18 00:45 05/05/18 01:01 05/05/18 07:00 05/05/18 07:41 White Blood Count 13.3 x10^3/uL (4.0-11.0) Red Blood Count 3.41 x10^6/uL (3.50-5.40) Hemoglobin 8.3 g/dL (12.0-15.5) Hematocrit 26.6 % (36.0-47.0) Mean Corpuscular Volume 78 fL (79-100) Mean Corpuscular Hemoglobin 25 pg (25-35) Mean Corpuscular Hemoglobin Concent 31 g/dL (31-37) Red Cell Distribution Width 17.4 % (11.5-14.5) Platelet Count 339 x10^3/uL (140-400) Neutrophils (%) (Auto) 68 % (31-73) Lymphocytes (%) (Auto) 22 % (24-48) Monocytes (%) (Auto) 7 % (0-9) Eosinophils (%) (Auto) 3 % (0-3) Basophils (%) (Auto) 1 % (0-3) Neutrophils # (Auto) 9.0 x10^3uL (1.8-7.7) Lymphocytes # (Auto) 2.9 x10^3/uL (1.0-4.8) Monocytes # (Auto) 0.9 x10^3/uL (0.0-1.1) Eosinophils # (Auto) 0.4 x10^3/uL (0.0-0.7) Basophils # (Auto) 0.1 x10^3/uL (0.0-0.2) Sodium Level 140 mmol/L (136-145) Potassium Level 5.0 mmol/L (3.5-5.1) Chloride Level 101 mmol/L (98-107) Carbon Dioxide Level 33 mmol/L (21-32) Anion Gap 6 (6-14) Blood Urea Nitrogen 57 mg/dL (7-20) Creatinine 1.6 mg/dL (0.6-1.0) Estimated GFR (Cockcroft-Gault) 33.5 BUN/Creatinine Ratio 36 (6-20) Glucose Level 225 mg/dL (70-99) Calcium Level 8.8 mg/dL (8.5-10.1) Total Bilirubin 0.2 mg/dL (0.2-1.0) Aspartate Amino Transf (AST/SGOT) 23 U/L (15-37) Alanine Aminotransferase (ALT/SGPT) 36 U/L (14-59) Alkaline Phosphatase 213 U/L (46-116) Troponin I Quantitative < 0.017 ng/mL (0.000-0.055) < 0.017 ng/mL (0.000-0.055) SX-Boe-H-Type Natriuretic Peptide 1082 pg/mL (0-124) Total Protein 7.1 g/dL (6.4-8.2) Albumin 2.8 g/dL (3.4-5.0) Albumin/Globulin Ratio 0.7 (1.0-1.7) O2 Saturation 93 % (92-99) Arterial Blood pH 7.39 (7.35-7.45) Arterial Blood pCO2 at Patient Temp 51 mmHg (35-46) Arterial Blood pO2 at Patient Temp 70 mmHg (75-108) Arterial Blood HCO3 31 mmol/L (21-28) Arterial Blood Base Excess 5 mmol/L (-3-3) FiO2 32 Glucose (Fingerstick) 267 mg/dL (70-99) Test 05/05/18 11:54 Glucose (Fingerstick) 344 mg/dL (70-99) Assessment/Plan Assessment/Plan This patient comes in with acute respiratory distress secondary to acute on chronic CHF secondary to systolic and diastolic dysfunction. I would like to diurese the patient and continue with O2. Depending on her progression may need to take more aggressive measures. Part of the problem with this patient is her degree of deconditioning from her very low level of activity. Thank you very much for asking me to participate in the care of this patient. JON WEAVER MD May 05, 2018 14:24
--- NOTE | 2018-05-05 14:36 | PDOC1 ---
History and Physical Date of Admission Date of Admission 05/05/18 Identification/Chief Complaint Chief Complaint SOB Source Source: Chart review, Patient History of Present Illness History of Present Illness HPI Patient is a 57-year-old female who presents with complaint of shortness of breath that started 2 days ago. PT HAS multiple commormidities including afib, dvt, PE, on eliquis, was dced here recently for groin hematoma developed s/post vascular sx. Pt was just dced home from and has had sob for 2 days, supposed to be on diuretics, not sure why not now. Pt feels abd distended, bl leg edema. on NC 2-3L. Patient was brought in by EMS reports that patient was giving herself a breathing treatment at home and her oxygen saturation was in the mid 80s on her normal 3 L of oxygen. Patient was given an additional 2 doses of albuterol while in route and O2 sat, to 100% on 6 L of oxygen. Patient also indicates that she is having chest discomfort that she describes as tightness for the last hour. Past Medical History Cardiovascular: AFIB, CAD, CHF, HTN, Hyperlipidemia, Other Pulmonary: COPD, Pulmonary embolus, Other CENTRAL NERVOUS SYSTEM: CVA, Periperal neuropathy, Other GI: Other Heme/Onc: No pertinent hx Hepatobiliary: No pertinent hx Psych: Depression, Other Rheumatologic: Gout Infectious disease: No pertinent hx Renal/: UTI, Urinary Incontinence Endocrine: Diabetes Past Surgical History Past Surgical History: Cholecystectomy, Hernia Repair, Hysterectomy, Other Family History Family History: Coronary Artery Disease, Diabetes, Kidney Disease Social History Smoke: No ALCOHOL: none Drugs: None Current Problem List Problem List Problems Medical Problems: (1) Acute on chronic congestive heart failure Status: Acute (2) COPD exacerbation Status: Acute Current Medications Current Medications Current Medications Medications (Trade) Dose Ordered Sig/Jesus Manuel Start Time Stop Time Status Last Admin Dose Admin Acetaminophen (Tylenol) 650 mg PRN Q4HRS PRN 05/05/18 03:30 05/06/18 03:29 Acetaminophen/ Hydrocodone Bitart (Lortab 10/325) 1 tab PRN Q6HRS PRN 05/05/18 11:45 Albuterol Sulfate (Ventolin Neb Soln) 2.5 mg PRN Q4HRS PRN 05/05/18 11:30 Albuterol/ Ipratropium (Duoneb) 3 ml RTQID 05/05/18 08:00 05/06/18 07:59 05/05/18 11:34 3 ML Alprazolam (Xanax) 0.5 mg PRN Q6HRS PRN 05/05/18 11:00 05/05/18 11:29 0.5 MG Amlodipine Besylate (Norvasc) 5 mg DAILY 05/05/18 11:30 05/05/18 11:30 5 MG Apixaban (Eliquis) 5 mg BID 05/05/18 11:30 05/05/18 11:29 5 MG Aspirin (Children'S Aspirin) 81 mg DAILY 05/05/18 11:30 05/05/18 11:30 81 MG Atorvastatin Calcium (Lipitor) 40 mg HS 05/05/18 21:00 Budesonide (Pulmicort) 0.5 mg RTBID 05/05/18 20:00 Bumetanide (Bumex) 1 mg BID92 05/05/18 11:30 Cancel Dextrose (Dextrose 50%-Water Syringe) 12.5 gm PRN Q15MIN PRN 05/05/18 11:15 UNV Docusate Sodium (Colace) 100 mg BID 05/05/18 11:30 05/05/18 11:31 100 MG Doxepin HCl (SINEquan) 50 mg PRN QHS PRN 05/05/18 21:00 Duloxetine HCl (Cymbalta) 60 mg BID 05/05/18 11:30 05/05/18 11:30 60 MG Fluticasone Propionate (Flonase) 2 spray PRN DAILY PRN 05/05/18 11:09 Furosemide (Lasix) 80 mg 1X ONCE 05/05/18 14:00 05/05/18 14:01 DC 05/05/18 13:57 80 MG Insulin Glargine (Lantus) 60 units BID 05/05/18 21:00 Insulin Human Lispro (HumaLOG) 0-9 UNITS TIDWMEALS 05/05/18 12:00 05/05/18 12:15 9 UNITS Ipratropium [place] (Atrovent) 0.5 mg 1X ONCE 05/05/18 00:30 05/05/18 00:31 DC 05/05/18 00:30 0.5 MG Lactobacillus Rhamnosus (Culturelle) 1 cap BID 05/05/18 21:00 Levothyroxine Sodium (Synthroid) 50 mcg DAILY07 05/05/18 11:30 05/05/18 13:57 50 MCG Lubiprostone (Amitiza) 8 mcg BIDWMEALS 05/05/18 11:30 05/05/18 11:31 8 MCG Methylprednisolone Sodium Succinate (SOLU-Medrol 125MG VIAL) 125 mg 1X ONCE 05/05/18 00:30 05/05/18 00:31 DC 05/05/18 00:56 125 MG Metoprolol Succinate (Toprol Xl) 50 mg DAILY 05/05/18 11:30 05/05/18 11:30 50 MG Morphine Sulfate (Morphine Sulfate) 2 mg PRN Q15MIN PRN 05/05/18 00:30 05/06/18 00:29 05/05/18 00:57 2 MG Nitroglycerin (Nitrostat) 0.4 mg PRN Q5MIN PRN 05/05/18 11:00 Non-Formulary Medication (60) 65 unit BID 05/05/18 21:00 UNV Non-Formulary Medication (Albuterol Sulfate (Ventolin Hfa Inhaler)) 2 puff PRN Q4HRS PRN 05/05/18 11:00 UNV Non-Formulary Medication (Dulaglutide (Trulicity)) 0.75 mg QFR 05/11/18 16:00 UNV Oxybutynin Chloride (Ditropan) 2.5 mg BID 05/05/18 11:30 05/05/18 11:30 2.5 MG Pantoprazole Sodium (Protonix) 40 mg BIDAC 05/05/18 11:30 05/05/18 11:31 40 MG Pharmacy Consult (C.diff Med Screen By Rx) 1 each 1X ONCE 05/05/18 09:00 05/05/18 09:01 Cancel Pregabalin (Lyrica) 150 mg BID 05/05/18 11:30 05/05/18 11:30 150 MG Senna/Docusate Sodium (Senna Plus) 1 tab BID 05/05/18 11:30 05/05/18 11:31 1 TAB Spironolactone (Aldactone) 25 mg DAILY 05/05/18 11:30 05/05/18 11:31 25 MG Allergies Allergies Allergies Coded Allergies Type Severity Reaction Last Updated Verified No Known Drug Allergies 12/23/16 No ROS Review of System CONSTITUTIONAL: No fever or chills EYES: No recent changes SKIN: No rash or itching CARDIOVASCULAR: No chest pain, syncope, palpitations, or edema RESPIRATORY: No SOB or cough GASTROINTESTINAL: No nausea, vomiting or abdominal pain NEUROLOGICAL: No headaches or weakness ENDOCRINE: No cold or heat intolerance GENITOURINARY: No urgency or frequency of urination MUSCULOSKELETAL: No back pain or joint pain LYMPHATICS: No enlarged lymph nodes PSYCHIATRIC: No anxiety or depression Physical Exam Physical Exam GEN.: No apparent distress. Alert and oriented. HEENT: Head is normocephalic, atraumatic NECK: Supple. LUNGS: bl decreased bs, mild crackles HEART: RRR, S1, S2 present. Peripheral pulses intact ABDOMEN: Soft, nontender. Positive bowel sounds. EXTREMITIES: Without any cyanosis. bl leg 2-3+ edema. NEUROLOGIC: Normal speech, normal tone PSYCHIATRIC: Normal affect, normal mood. SKIN: No ulcerations Vitals Vitals Vital Signs Date Time Temp Pulse Resp B/P (MAP) Pulse Ox O2 Delivery O2 Flow Rate FiO2 05/05/18 12:08 Nasal Cannula 3.0 05/05/18 11:30 93 140/62 05/05/18 11:00 97.8 18 95 97.8 Labs Labs Laboratory Tests Test 05/05/18 00:45 05/05/18 01:01 05/05/18 07:00 05/05/18 07:41 White Blood Count 13.3 x10^3/uL (4.0-11.0) Red Blood Count 3.41 x10^6/uL (3.50-5.40) Hemoglobin 8.3 g/dL (12.0-15.5) Hematocrit 26.6 % (36.0-47.0) Mean Corpuscular Volume 78 fL (79-100) Mean Corpuscular Hemoglobin 25 pg (25-35) Mean Corpuscular Hemoglobin Concent 31 g/dL (31-37) Red Cell Distribution Width 17.4 % (11.5-14.5) Platelet Count 339 x10^3/uL (140-400) Neutrophils (%) (Auto) 68 % (31-73) Lymphocytes (%) (Auto) 22 % (24-48) Monocytes (%) (Auto) 7 % (0-9) Eosinophils (%) (Auto) 3 % (0-3) Basophils (%) (Auto) 1 % (0-3) Neutrophils # (Auto) 9.0 x10^3uL (1.8-7.7) Lymphocytes # (Auto) 2.9 x10^3/uL (1.0-4.8) Monocytes # (Auto) 0.9 x10^3/uL (0.0-1.1) Eosinophils # (Auto) 0.4 x10^3/uL (0.0-0.7) Basophils # (Auto) 0.1 x10^3/uL (0.0-0.2) Sodium Level 140 mmol/L (136-145) Potassium Level 5.0 mmol/L (3.5-5.1) Chloride Level 101 mmol/L (98-107) Carbon Dioxide Level 33 mmol/L (21-32) Anion Gap 6 (6-14) Blood Urea Nitrogen 57 mg/dL (7-20) Creatinine 1.6 mg/dL (0.6-1.0) Estimated GFR (Cockcroft-Gault) 33.5 BUN/Creatinine Ratio 36 (6-20) Glucose Level 225 mg/dL (70-99) Calcium Level 8.8 mg/dL (8.5-10.1) Total Bilirubin 0.2 mg/dL (0.2-1.0) Aspartate Amino Transf (AST/SGOT) 23 U/L (15-37) Alanine Aminotransferase (ALT/SGPT) 36 U/L (14-59) Alkaline Phosphatase 213 U/L (46-116) Troponin I Quantitative < 0.017 ng/mL (0.000-0.055) < 0.017 ng/mL (0.000-0.055) CL-Dni-S-Type Natriuretic Peptide 1082 pg/mL (0-124) Total Protein 7.1 g/dL (6.4-8.2) Albumin 2.8 g/dL (3.4-5.0) Albumin/Globulin Ratio 0.7 (1.0-1.7) O2 Saturation 93 % (92-99) Arterial Blood pH 7.39 (7.35-7.45) Arterial Blood pCO2 at Patient Temp 51 mmHg (35-46) Arterial Blood pO2 at Patient Temp 70 mmHg (75-108) Arterial Blood HCO3 31 mmol/L (21-28) Arterial Blood Base Excess 5 mmol/L (-3-3) FiO2 32 Glucose (Fingerstick) 267 mg/dL (70-99) Test 05/05/18 11:54 Glucose (Fingerstick) 344 mg/dL (70-99) Laboratory Tests Test 05/05/18 00:45 05/05/18 01:01 05/05/18 07:00 05/05/18 07:41 White Blood Count 13.3 x10^3/uL (4.0-11.0) Red Blood Count 3.41 x10^6/uL (3.50-5.40) Hemoglobin 8.3 g/dL (12.0-15.5) Hematocrit 26.6 % (36.0-47.0) Mean Corpuscular Volume 78 fL (79-100) Mean Corpuscular Hemoglobin 25 pg (25-35) Mean Corpuscular Hemoglobin Concent 31 g/dL (31-37) Red Cell Distribution Width 17.4 % (11.5-14.5) Platelet Count 339 x10^3/uL (140-400) Neutrophils (%) (Auto) 68 % (31-73) Lymphocytes (%) (Auto) 22 % (24-48) Monocytes (%) (Auto) 7 % (0-9) Eosinophils (%) (Auto) 3 % (0-3) Basophils (%) (Auto) 1 % (0-3) Neutrophils # (Auto) 9.0 x10^3uL (1.8-7.7) Lymphocytes # (Auto) 2.9 x10^3/uL (1.0-4.8) Monocytes # (Auto) 0.9 x10^3/uL (0.0-1.1) Eosinophils # (Auto) 0.4 x10^3/uL (0.0-0.7) Basophils # (Auto) 0.1 x10^3/uL (0.0-0.2) Sodium Level 140 mmol/L (136-145) Potassium Level 5.0 mmol/L (3.5-5.1) Chloride Level 101 mmol/L (98-107) Carbon Dioxide Level 33 mmol/L (21-32) Anion Gap 6 (6-14) Blood Urea Nitrogen 57 mg/dL (7-20) Creatinine 1.6 mg/dL (0.6-1.0) Estimated GFR (Cockcroft-Gault) 33.5 BUN/Creatinine Ratio 36 (6-20) Glucose Level 225 mg/dL (70-99) Calcium Level 8.8 mg/dL (8.5-10.1) Total Bilirubin 0.2 mg/dL (0.2-1.0) Aspartate Amino Transf (AST/SGOT) 23 U/L (15-37) Alanine Aminotransferase (ALT/SGPT) 36 U/L (14-59) Alkaline Phosphatase 213 U/L (46-116) Troponin I Quantitative < 0.017 ng/mL (0.000-0.055) < 0.017 ng/mL (0.000-0.055) ST-Eqt-H-Type Natriuretic Peptide 1082 pg/mL (0-124) Total Protein 7.1 g/dL (6.4-8.2) Albumin 2.8 g/dL (3.4-5.0) Albumin/Globulin Ratio 0.7 (1.0-1.7) O2 Saturation 93 % (92-99) Arterial Blood pH 7.39 (7.35-7.45) Arterial Blood pCO2 at Patient Temp 51 mmHg (35-46) Arterial Blood pO2 at Patient Temp 70 mmHg (75-108) Arterial Blood HCO3 31 mmol/L (21-28) Arterial Blood Base Excess 5 mmol/L (-3-3) FiO2 32 Glucose (Fingerstick) 267 mg/dL (70-99) Test 05/05/18 11:54 Glucose (Fingerstick) 344 mg/dL (70-99) VTE Prophylaxis Ordered VTE Prophylaxis Devices: Yes VTE Pharmacological Prophylaxi: No Assessment/Plan Assessment/Plan acute on chronic resp failure with chronic diastolic chf exacerbation copd pafib h/o dvt, PE on asa, eliquis h/o CAD POST stents morbid obesity leukocytosis, SIRS dm2 on high dose insulin anemia, chronic moderate malnutrition plan: card, consult add lasix 40mg iv bid for now intake and output cont home meds slightly decrease insulin lantus 60u bid, aspart 35u tid, ssi ptot cont asa, eliquis duoneb, albuterol prn JOSE LAWTON MD May 05, 2018 14:36
[2018-05-05 15:00] VITALS: BP 140/58
[2018-05-05] MEDS: HYDROcodone/APAP 10/325 1 TAB TABLET PO PRN ×2 (16:15→21:44)
[2018-05-05 19:20] VITALS: BP 140/69
[2018-05-05] MEDS: BUDESONIDE 0.5 MG/2 ML NEBU. NEB SCH (19:46)
[2018-05-05] MEDS ORDERED: [UNRECOGNIZED DRUG - OTHER] SQ SCH (21:00)
[2018-05-05] MEDS: DOXEPIN HCL 25 MG CAPSULE. PO PRN (21:43)
[2018-05-05] MEDS: LACTOBACILLUS RHAMNOSUS GG 1 CAPSULE. PO SCH (21:45)
[2018-05-05] MEDS: ATORVASTATIN CALCIUM 40 MG TABLET. PO SCH (21:45)
[2018-05-05 23:50] VITALS: BP 143/61
[2018-05-06] MEDS: ALBUTEROL SULFATE 2.5 MG/3 ML NEBU. NEB PRN ×2 (01:39→22:18)
[2018-05-06 03:45] VITALS: BP 146/86
[2018-05-06 04:52] LABS: BASO % 0 % (0-3); EOS % 0 % (0-3); HEMATOCRIT 26.7 % (36.0-47.0); HEMOGLOBIN 8.5 g/dL (12.0-15.5); LYMPH # 1.2 x10^3/uL (1.0-4.8); LYMPH % 8 % (24-48); MEAN CORPUSCULAR HEMOGLOBIN 25 pg (25-35); MEAN CORPUSCULAR HGB CONC 32 g/dL (31-37); MEAN CORPUSCULAR VOLUME 77 fL (79-100); MONO # 1.2 x10^3/uL (0.0-1.1); MONO % 8 % (0-9); NEUT % 85 % (31-73); PLATELET COUNT 377 x10^3/uL (140-400); RED BLOOD COUNT 3.45 x10^6/uL (3.50-5.40); RED CELL DISTRIBUTION WIDTH 17.4 % (11.5-14.5); WHITE BLOOD COUNT 15.4 x10^3/uL (4.0-11.0)
[2018-05-06 05:11] LABS: CALCIUM 9.3 mg/dL (8.5-10.1); CREATININE 1.5 mg/dL (0.6-1.0); GFR 36.1; POTASSIUM 4.8 mmol/L (3.5-5.1)
[2018-05-06] MEDS: LEVOTHYROXINE 50 MCG TABLET PO SCH (07:07)
[2018-05-06] MEDS: IPRATRPIUM/ALBUTEROL 0.5/2.5MG 3 ML NEBU. NEB SCH ×4 (07:21→18:33)
[2018-05-06 07:51] VITALS: BP 136/61
[2018-05-06] MEDS: HYDROcodone/APAP 10/325 1 TAB TABLET PO PRN (08:02)
[2018-05-06] MEDS: SPIRONOLACTONE 25 MG TABLET PO SCH (08:03)
[2018-05-06] MEDS: APIXABAN 5 MG TABLET. PO SCH ×2 (08:03→20:57)
[2018-05-06] MEDS: LUBIPROSTONE 8 MCG CAPSULE PO SCH ×2 (08:03→17:30)
[2018-05-06] MEDS: FUROSEMIDE 40 MG/4 ML VIAL. IVP SCH ×2 (08:03→13:35)
[2018-05-06] MEDS: LACTOBACILLUS RHAMNOSUS GG 1 CAPSULE. PO SCH ×2 (08:03→20:57)
[2018-05-06] MEDS: DOCUSATE SODIUM 100 MG CAPSULE. PO SCH ×2 (08:03→20:58)
[2018-05-06] MEDS: DULoxetine HCL 30 MG CAPSULE.DR PO SCH ×2 (08:03→20:58)
[2018-05-06] MEDS: ASPIRIN CHEWABLE 81 MG TABLET. PO SCH (08:03)
[2018-05-06] MEDS: OXYBUTYNIN CHLORIDE 5 MG TABLET PO SCH ×2 (08:04→20:58)
[2018-05-06] MEDS: METOPROLOL SUCC 24HR ER 50 MG TAB.ER.24H. PO SCH (08:04)
[2018-05-06] MEDS: amLODIPine BESYLATE 5 MG TABLET PO SCH (08:04)
[2018-05-06] MEDS: PANTOPRAZOLE 40 MG TABLET.DR. PO SCH ×2 (08:05→17:30)
[2018-05-06] MEDS: PREGABALIN 75 MG CAPSULE PO SCH ×2 (08:05→20:57)
[2018-05-06] MEDS: SENNOSIDES/DOCUSATE 8.6/50MG TABLET. PO SCH ×2 (08:05→20:58)
[2018-05-06] MEDS: INSULIN LISPRO 300 UNITS/3 ML INSULN.PEN. SQ SCH ×6 (08:07→17:33)
[2018-05-06] MEDS: INSULIN GLARGINE 300 UNITS/3 ML INSULN.PEN. SQ SCH ×2 (08:09→21:09)
[2018-05-06 11:00] VITALS: BP 111/52
[2018-05-06 11:19] LABS: % BANDS 2 % (0-9); % LYMPHS 7 % (24-48); % MONOS 4 % (0-10); % SEGS 87 % (35-66); NUCLEATED RBC 1
[2018-05-06 11:20] LABS: ANISOCYTOSIS SLIGHT; HYPOCHROMIA PRESENT; PLT ESTIMATE ADEQUATE (ADEQUATE); POLYCHROMASIA PRESENT
[2018-05-06] MEDS ORDERED: ACETAMINOPHEN 325 MG TABLET. PO PRN (14:15)
[2018-05-06] MEDS ORDERED: MORPHINE SULFATE 2 MG/ML VIAL. IV PRN (14:15)
[2018-05-06] MEDS ORDERED: traMADol 50 MG TABLET PO PRN (14:15)
[2018-05-06] MEDS ORDERED: DOCUSATE SODIUM 100 MG CAPSULE. PO PRN (14:15)
[2018-05-06] MEDS ORDERED: ONDANSETRON PF 4 MG/2 ML VIAL. IV PRN (14:15)
[2018-05-06] MEDS ORDERED: hydrALAZINE 20 MG/ML VIAL. IVP PRN (14:15)
--- NOTE | 2018-05-06 14:16 | PDOC ---
PROGRESS NOTES Chief Complaint Chief Complaint acute on chronic resp failure with chronic diastolic chf exacerbation copd pafib h/o dvt, PE on asa, eliquis h/o CAD POST stents morbid obesity leukocytosis, SIRS dm2 on high dose insulin anemia, chronic moderate malnutrition plan: card consulted add lasix 40mg iv bid for now, pt is on bumex at home, will double check with card to see if need to change back to it or increase lasix dose intake and output cont home meds cont home dose insulin lantus 65u bid, aspart 40u tid, ssi ptot cont asa, eliquis duoneb, albuterol prn wound care consult for rt toe small dry wound History of Present Illness History of Present Illness ROS: no fever, chills, chest pain sob slightly better on NC 2l, home o2 2-3 L bl leg still severe swollen, tightness hypeglycemia Vitals Vitals Vital Signs Date Time Temp Pulse Resp B/P (MAP) Pulse Ox O2 Delivery O2 Flow Rate FiO2 05/06/18 12:10 Nasal Cannula 3.0 05/06/18 11:00 97.5 75 18 111/52 (71) 97 97.5 Physical Exam General: Alert, Oriented X3, Cooperative, mild distress Heart: Regular rate, Normal S1, Normal S2, Other (irregularly irregular, S1, S2 , no rubs) Lungs: Crackles (bl mild crackles), Other Abdomen: Normal bowel sounds, Soft, No tenderness, Other (mild distended.) Extremities: Other (3+ edema bilaterally, tightness. rt 3rd toe small wound with dry blood on) Labs LABS Laboratory Tests Test 05/05/18 17:24 05/05/18 21:27 05/06/18 04:00 05/06/18 07:15 Glucose (Fingerstick) 346 mg/dL (70-99) 311 mg/dL (70-99) 308 mg/dL (70-99) White Blood Count 15.4 x10^3/uL (4.0-11.0) Red Blood Count 3.45 x10^6/uL (3.50-5.40) Hemoglobin 8.5 g/dL (12.0-15.5) Hematocrit 26.7 % (36.0-47.0) Mean Corpuscular Volume 77 fL (79-100) Mean Corpuscular Hemoglobin 25 pg (25-35) Mean Corpuscular Hemoglobin Concent 32 g/dL (31-37) Red Cell Distribution Width 17.4 % (11.5-14.5) Platelet Count 377 x10^3/uL (140-400) Neutrophils (%) (Auto) 85 % (31-73) Lymphocytes (%) (Auto) 8 % (24-48) Monocytes (%) (Auto) 8 % (0-9) Eosinophils (%) (Auto) 0 % (0-3) Basophils (%) (Auto) 0 % (0-3) Neutrophils # (Auto) 13.0 x10^3uL (1.8-7.7) Lymphocytes # (Auto) 1.2 x10^3/uL (1.0-4.8) Monocytes # (Auto) 1.2 x10^3/uL (0.0-1.1) Eosinophils # (Auto) 0.0 x10^3/uL (0.0-0.7) Basophils # (Auto) 0.0 x10^3/uL (0.0-0.2) Segmented Neutrophils % 87 % (35-66) Band Neutrophils % 2 % (0-9) Lymphocytes % 7 % (24-48) Monocytes % 4 % (0-10) Nucleated Red Blood Cells 1 Platelet Estimate Adequate (ADEQUATE) Polychromasia Present Hypochromasia Present Basophilic Stippling Present Anisocytosis Slight Sodium Level 137 mmol/L (136-145) Potassium Level 4.8 mmol/L (3.5-5.1) Chloride Level 99 mmol/L (98-107) Carbon Dioxide Level 33 mmol/L (21-32) Anion Gap 5 (6-14) Blood Urea Nitrogen 56 mg/dL (7-20) Creatinine 1.5 mg/dL (0.6-1.0) Estimated GFR (Cockcroft-Gault) 36.1 Glucose Level 350 mg/dL (70-99) Calcium Level 9.3 mg/dL (8.5-10.1) Test 05/06/18 11:30 Glucose (Fingerstick) 346 mg/dL (70-99) Assessment and Plan Assessmemt and Plan Problems Medical Problems: (1) Acute on chronic congestive heart failure Status: Acute (2) COPD exacerbation Status: Acute Comment Review of Relevant I have reviewed the following items jim (where applicable) has been applied. Labs Laboratory Tests Test 05/05/18 00:45 05/05/18 01:01 05/05/18 07:00 05/05/18 07:41 White Blood Count 13.3 x10^3/uL (4.0-11.0) Red Blood Count 3.41 x10^6/uL (3.50-5.40) Hemoglobin 8.3 g/dL (12.0-15.5) Hematocrit 26.6 % (36.0-47.0) Mean Corpuscular Volume 78 fL (79-100) Mean Corpuscular Hemoglobin 25 pg (25-35) Mean Corpuscular Hemoglobin Concent 31 g/dL (31-37) Red Cell Distribution Width 17.4 % (11.5-14.5) Platelet Count 339 x10^3/uL (140-400) Neutrophils (%) (Auto) 68 % (31-73) Lymphocytes (%) (Auto) 22 % (24-48) Monocytes (%) (Auto) 7 % (0-9) Eosinophils (%) (Auto) 3 % (0-3) Basophils (%) (Auto) 1 % (0-3) Neutrophils # (Auto) 9.0 x10^3uL (1.8-7.7) Lymphocytes # (Auto) 2.9 x10^3/uL (1.0-4.8) Monocytes # (Auto) 0.9 x10^3/uL (0.0-1.1) Eosinophils # (Auto) 0.4 x10^3/uL (0.0-0.7) Basophils # (Auto) 0.1 x10^3/uL (0.0-0.2) Sodium Level 140 mmol/L (136-145) Potassium Level 5.0 mmol/L (3.5-5.1) Chloride Level 101 mmol/L (98-107) Carbon Dioxide Level 33 mmol/L (21-32) Anion Gap 6 (6-14) Blood Urea Nitrogen 57 mg/dL (7-20) Creatinine 1.6 mg/dL (0.6-1.0) Estimated GFR (Cockcroft-Gault) 33.5 BUN/Creatinine Ratio 36 (6-20) Glucose Level 225 mg/dL (70-99) Calcium Level 8.8 mg/dL (8.5-10.1) Total Bilirubin 0.2 mg/dL (0.2-1.0) Aspartate Amino Transf (AST/SGOT) 23 U/L (15-37) Alanine Aminotransferase (ALT/SGPT) 36 U/L (14-59) Alkaline Phosphatase 213 U/L (46-116) Troponin I Quantitative < 0.017 ng/mL (0.000-0.055) < 0.017 ng/mL (0.000-0.055) DR-Amg-H-Type Natriuretic Peptide 1082 pg/mL (0-124) Total Protein 7.1 g/dL (6.4-8.2) Albumin 2.8 g/dL (3.4-5.0) Albumin/Globulin Ratio 0.7 (1.0-1.7) O2 Saturation 93 % (92-99) Arterial Blood pH 7.39 (7.35-7.45) Arterial Blood pCO2 at Patient Temp 51 mmHg (35-46) Arterial Blood pO2 at Patient Temp 70 mmHg (75-108) Arterial Blood HCO3 31 mmol/L (21-28) Arterial Blood Base Excess 5 mmol/L (-3-3) FiO2 32 Glucose (Fingerstick) 267 mg/dL (70-99) Test 05/05/18 11:54 05/05/18 17:24 05/05/18 21:27 05/06/18 04:00 Glucose (Fingerstick) 344 mg/dL (70-99) 346 mg/dL (70-99) 311 mg/dL (70-99) White Blood Count 15.4 x10^3/uL (4.0-11.0) Red Blood Count 3.45 x10^6/uL (3.50-5.40) Hemoglobin 8.5 g/dL (12.0-15.5) Hematocrit 26.7 % (36.0-47.0) Mean Corpuscular Volume 77 fL (79-100) Mean Corpuscular Hemoglobin 25 pg (25-35) Mean Corpuscular Hemoglobin Concent 32 g/dL (31-37) Red Cell Distribution Width 17.4 % (11.5-14.5) Platelet Count 377 x10^3/uL (140-400) Neutrophils (%) (Auto) 85 % (31-73) Lymphocytes (%) (Auto) 8 % (24-48) Monocytes (%) (Auto) 8 % (0-9) Eosinophils (%) (Auto) 0 % (0-3) Basophils (%) (Auto) 0 % (0-3) Neutrophils # (Auto) 13.0 x10^3uL (1.8-7.7) Lymphocytes # (Auto) 1.2 x10^3/uL (1.0-4.8) Monocytes # (Auto) 1.2 x10^3/uL (0.0-1.1) Eosinophils # (Auto) 0.0 x10^3/uL (0.0-0.7) Basophils # (Auto) 0.0 x10^3/uL (0.0-0.2) Segmented Neutrophils % 87 % (35-66) Band Neutrophils % 2 % (0-9) Lymphocytes % 7 % (24-48) Monocytes % 4 % (0-10) Nucleated Red Blood Cells 1 Platelet Estimate Adequate (ADEQUATE) Polychromasia Present Hypochromasia Present Basophilic Stippling Present Anisocytosis Slight Sodium Level 137 mmol/L (136-145) Potassium Level 4.8 mmol/L (3.5-5.1) Chloride Level 99 mmol/L (98-107) Carbon Dioxide Level 33 mmol/L (21-32) Anion Gap 5 (6-14) Blood Urea Nitrogen 56 mg/dL (7-20) Creatinine 1.5 mg/dL (0.6-1.0) Estimated GFR (Cockcroft-Gault) 36.1 Glucose Level 350 mg/dL (70-99) Calcium Level 9.3 mg/dL (8.5-10.1) Test 05/06/18 07:15 05/06/18 11:30 Glucose (Fingerstick) 308 mg/dL (70-99) 346 mg/dL (70-99) Laboratory Tests Test 05/05/18 17:24 05/05/18 21:27 05/06/18 04:00 05/06/18 07:15 Glucose (Fingerstick) 346 mg/dL (70-99) 311 mg/dL (70-99) 308 mg/dL (70-99) White Blood Count 15.4 x10^3/uL (4.0-11.0) Red Blood Count 3.45 x10^6/uL (3.50-5.40) Hemoglobin 8.5 g/dL (12.0-15.5) Hematocrit 26.7 % (36.0-47.0) Mean Corpuscular Volume 77 fL (79-100) Mean Corpuscular Hemoglobin 25 pg (25-35) Mean Corpuscular Hemoglobin Concent 32 g/dL (31-37) Red Cell Distribution Width 17.4 % (11.5-14.5) Platelet Count 377 x10^3/uL (140-400) Neutrophils (%) (Auto) 85 % (31-73) Lymphocytes (%) (Auto) 8 % (24-48) Monocytes (%) (Auto) 8 % (0-9) Eosinophils (%) (Auto) 0 % (0-3) Basophils (%) (Auto) 0 % (0-3) Neutrophils # (Auto) 13.0 x10^3uL (1.8-7.7) Lymphocytes # (Auto) 1.2 x10^3/uL (1.0-4.8) Monocytes # (Auto) 1.2 x10^3/uL (0.0-1.1) Eosinophils # (Auto) 0.0 x10^3/uL (0.0-0.7) Basophils # (Auto) 0.0 x10^3/uL (0.0-0.2) Segmented Neutrophils % 87 % (35-66) Band Neutrophils % 2 % (0-9) Lymphocytes % 7 % (24-48) Monocytes % 4 % (0-10) Nucleated Red Blood Cells 1 Platelet Estimate Adequate (ADEQUATE) Polychromasia Present Hypochromasia Present Basophilic Stippling Present Anisocytosis Slight Sodium Level 137 mmol/L (136-145) Potassium Level 4.8 mmol/L (3.5-5.1) Chloride Level 99 mmol/L (98-107) Carbon Dioxide Level 33 mmol/L (21-32) Anion Gap 5 (6-14) Blood Urea Nitrogen 56 mg/dL (7-20) Creatinine 1.5 mg/dL (0.6-1.0) Estimated GFR (Cockcroft-Gault) 36.1 Glucose Level 350 mg/dL (70-99) Calcium Level 9.3 mg/dL (8.5-10.1) Test 8/12/18 11:30 Glucose (Fingerstick) 346 mg/dL (70-99) Medications Current Medications Ipratropium Condon (Atrovent) 0.5 mg 1X ONCE NEB Last administered on at 00:30; Start 05/05/18 at 00:30; Stop 05/05/18 at 00:31; Status DC Methylprednisolone Sodium Succinate (SOLU-Medrol 125MG VIAL) 125 mg 1X ONCE IV Last administered on 05/05/18at 00:56; Start 05/05/18 at 00:30; Stop 05/05/18 at 00:31; Status DC Morphine Sulfate (Morphine Sulfate) 2 mg PRN Q15MIN PRN IV/SQ PAIN GREATER THAN 3/10 Last administered on 05/05/18at 00:57; Start 05/05/18 at 00:30; Stop at 00:29; Status DC Albuterol Sulfate (Ventolin Neb Soln) 5 mg 1X ONCE NEB Last administered on 08/12at 00:30; Start 05/05/18 at 00:30; Stop 05/05/18 at 00:31; Status DC Furosemide (Lasix) 60 mg 1X ONCE IVP Last administered on 05/05/18at 03:01; Start 05/05/18 at 02:15; Stop 05/05/18 at 02:16; Status DC Acetaminophen (Tylenol) 650 mg PRN Q4HRS PRN PO FEVER; Start 05/05/18 at 03:30 ; Stop 05/06/18 at 03:29; Status DC Albuterol/ Ipratropium (Duoneb) 3 ml RTQID NEB Last administered on 05/05/18at 11:34; Start 05/05/18 at 08:00; Stop 05/05/18 at 14:29; Status DC Pharmacy Consult (C.diff Med Screen By Rx) 1 each 1X ONCE [facility] ; Start 05/05/18 at 09:00; Stop 05/05/18 at 09:01; Status Cancel Lactobacillus Rhamnosus (Culturelle) 1 cap BID PO Last administered on at 08:03; Start 05/05/18 at 21:00 Alprazolam (Xanax) 0.5 mg PRN Q6HRS PRN PO ANXIETY / AGITATION Last administered on 05/05/18 21:44; Start 05/05/18 at 11:00 Amlodipine Besylate (Norvasc) 5 mg DAILY PO Last administered on 05/06/18 08: 04; Start 05/05/18 at 11:30 Apixaban (Eliquis) 5 mg BID PO Last administered on 05/06/18 08:03; Start 08/12 at 11:30 Aspirin (Children'S Aspirin) 81 mg DAILY PO Last administered on 05/06/18 08: 03; Start 05/05/18 at 11:30 Atorvastatin Calcium (Lipitor) 40 mg HS PO Last administered on 05/05/18 21:45 ; Start 05/05/18 at 21:00 Bumetanide (Bumex) 1 mg BID92 PO ; Start 05/05/18 at 11:30; Status Cancel Docusate Sodium (Colace) 100 mg BID PO Last administered on 05/06/18 08:03; Start 05/05/18 at 11:30 Insulin Human Lispro (HumaLOG) 40 units TIDAC SQ ; Start 05/05/18 at 11:30; Stop 05/05/18 at 11:30; Status DC Albuterol Sulfate (Ventolin Neb Soln) 2.5 mg PRN QID PRN NEB SHORTNESS OF BREATH; Start 05/05/18 at 11:30; Stop 05/05/18 at 11:30; Status DC Lubiprostone (Amitiza) 8 mcg BIDWMEALS PO Last administered on 05/06/18 08:03 ; Start 05/05/18 at 11:30 Metoprolol Succinate (Toprol Xl) 50 mg DAILY PO Last administered on 05/06/18 08:04; Start 05/05/18 at 11:30 Nitroglycerin (Nitrostat) 0.4 mg PRN Q5MIN PRN SL CP RATING > 1/10; Start 05/05 at 11:00 Senna/Docusate Sodium (Senna Plus) 1 tab BID PO Last administered on 05/06/18 08:05; Start 05/05/18 at 11:30 Non-Formulary Medication (Albuterol Sulfate (Ventolin Hfa Inhaler)) 2 puff PRN Q4HRS PRN INH SHORTNESS OF BREATH; Start 05/05/18 at 11:00; Status UNV Doxepin HCl (SINEquan) 50 mg PRN QHS PRN PO INSOMNIA Last administered on at 21:43; Start 05/05/18 at 21:00 Non-Formulary Medication (Dulaglutide (Trulicity)) 0.75 mg QFR SUBCUT ; Start at 16:00; Status UNV Duloxetine HCl (Cymbalta) 60 mg BID PO Last administered on 05/06/18at 08:03; Start 05/05/18 at 11:30 Pantoprazole Sodium (Protonix) 40 mg BIDAC PO Last administered on 05/06/18at 08 :05; Start 05/05/18 at 11:30 Fluticasone Propionate (Flonase) 2 spray PRN DAILY PRN NS ALLERGIES; Start 08/12 at 11:09 Insulin Glargine (Lantus) 65 units BID SQ ; Start 05/05/18 at 11:30; Stop at 11:30; Status DC Levothyroxine Sodium (Synthroid) 50 mcg DAILY07 PO Last administered on at 07:07; Start 05/05/18 at 11:30 Oxybutynin Chloride (Ditropan) 2.5 mg BID PO Last administered on 05/06/18at 08: 04; Start 05/05/18 at 11:30 Pregabalin (Lyrica) 150 mg BID PO Last administered on 05/06/18at 08:05; Start 05/05/18 at 11:30 Spironolactone (Aldactone) 25 mg DAILY PO Last administered on 05/06/18at 08:03 ; Start 05/05/18 at 11:30 Insulin Human Lispro (HumaLOG) 0-9 UNITS TIDWMEALS SQ ; Start 05/05/18 at 12:00 ; Status Cancel Dextrose (Dextrose 50%-Water Syringe) 12.5 gm PRN Q15MIN PRN IV SEE COMMENTS; Start 05/05/18 at 11:00 Insulin Human Lispro (HumaLOG) 35 units TIDAC SQ Last administered on at 08:08; Start 05/05/18 at 11:30; Stop 05/06/18 at 10:30; Status DC Non-Formulary Medication (60) 65 unit BID SQ ; Start 05/05/18 at 21:00; Status UNV Insulin Human Lispro (HumaLOG) 0-9 UNITS TIDWMEALS SQ Last administered on 05/06at 12:04; Start 05/05/18 at 12:00 Dextrose (Dextrose 50%-Water Syringe) 12.5 gm PRN Q15MIN PRN IV SEE COMMENTS; Start 05/05/18 at 11:15; Status UNV Furosemide (Lasix) 40 mg BID92 IVP Last administered on 05/06/18at 13:35; Start 05/05/18 at 11:30 Insulin Glargine (Lantus) 60 units BID SQ Last administered on 05/05/18at 21:50 ; Start 05/05/18 at 21:00; Stop 05/06/18 at 07:25; Status DC Albuterol Sulfate (Ventolin Neb Soln) 2.5 mg PRN Q4HRS PRN NEB SHORTNESS OF BREATH; Start 05/05/18 at 11:30; Stop 05/05/18 at 14:29; Status DC Acetaminophen/ Hydrocodone Bitart (Lortab 10/325) 1 tab PRN Q6HRS PRN PO MODERATE TO SEVERE PAIN Last administered on 05/06/18at 08:02; Start 05/05/18 at 11:45 Budesonide (Pulmicort) 0.5 mg 1X ONCE NEB Last administered on 05/05/18at 12:08 ; Start 05/05/18 at 12:00; Stop 05/05/18 at 12:01; Status DC Budesonide (Pulmicort) 0.5 mg RTBID NEB Last administered on 05/05/18at 19:46; Start 05/05/18 at 20:00 Furosemide (Lasix) 80 mg 1X ONCE IVP Last administered on 05/05/18at 13:57; Start 05/05/18 at 14:00; Stop 05/05/18 at 14:01; Status DC Albuterol/ Ipratropium (Duoneb) 3 ml RTQID NEB Last administered on 05/06/18at 12:09; Start 05/05/18 at 16:00 Albuterol Sulfate (Ventolin Neb Soln) 2.5 mg PRN Q2HR PRN NEB SHORTNESS OF BREATH Last administered on 05/06/18at 01:39; Start 05/05/18 at 14:30 Guaifenesin (Mucinex) 600 mg BID PO Last administered on 05/06/18at 08:04; Start 05/05/18 at 15:00 Info (Anti-Coagulation Monitoring By Pharmacy) 1 each PRN DAILY PRN [facility] SEE COMMENTS; Start 05/05/18 at 14:45 Insulin Glargine (Lantus) 65 units BID SQ Last administered on 05/06/18at 08:09 ; Start 05/06/18 at 09:00 Insulin Human Lispro (HumaLOG) 40 units TIDAC SQ Last administered on at 12:06; Start 05/06/18 at 11:30 Active Scripts Active Colace (Docusate Sodium) 100 Mg Capsule 100 Mg PO BID Senna-Time S Tablet (Sennosides/Docusate Sodium) 1 Each Tablet 1 Tab PO BID Amitiza (Lubiprostone) 8 Mcg Capsule 8 Mcg PO BIDWMEALS Nitrostat (Nitroglycerin) 0.4 Mg Tab.subl 0.4 Mg SL PRN Q5MIN PRN 30 Days Reported Spironolactone 25 Mg Tablet 1 Tab PO DAILY Bumetanide 1 Mg Tablet 1 Tab PO BID92 Duloxetine Hcl 60 Mg Capsule.dr 60 Mg PO BID Trulicity (Dulaglutide) 0.75 Mg/0.5 Ml Pen.injctr 0.75 Mg SUBCUT QFR Amlodipine Besylate 5 Mg Tablet 5 Mg PO DAILY Levemir Flextouch (Insulin Detemir) 100 Unit/1 Ml Insuln.pen 65 Unit SQ BID Xanax (Alprazolam) 0.5 Mg Tablet 0.5 Mg PO PRN Q6HRS PRN Ventolin Hfa Inhaler (Albuterol Sulfate) 18 Gm Hfa.aer.ad 2 Puff INH PRN Q4HRS PRN Oxybutynin Chloride Er (Oxybutynin Chloride) 5 Mg Tab.er.24 1 Tab PO DAILY Duoneb 0.5-3(2.5) Mg/3 Ml (Albuterol/Ipratropium) 3 Ml Ampul.neb 3 Ml NEB PRN QID PRN Flonase Allergy Relief (Fluticasone Propionate) 9.9 Ml Wilson.susp 2 Sprays NS PRN PRN Doxepin Hcl 50 Mg Capsule 1 Cap PO PRN QHS PRN Clonidine Hcl 0.1 Mg Tablet 1 Tab PO PRN PRN When SBP >150 Humalog (Insulin Lispro) 100 Unit/1 Ml Insuln.pen 40 Unit SQ TIDAC Eliquis (Apixaban) 5 Mg Tablet 5 Mg PO BID Metoprolol Succinate ( Xl ) (Metoprolol Succinate) 25 Mg Tab.er.24h 2 Tab PO DAILY Lyrica (Pregabalin) 150 Mg Capsule 1 Cap PO BID Atorvastatin Calcium 20 Mg Tablet 2 Tab PO HS Nexium Capsule (Esomeprazole Magnesium) 40 Mg Capsule.dr 1 Cap PO BID Aspirin 81 Mg Tab.chew 1 Tab PO DAILY Levothyroxine Sodium 50 Mcg Tablet 1 Tab PO DAILY Vitals/I & O Vital Sign - Last 24 Hours 05/05/18 05/05/18 05/05/18 05/05/18 15:00 15:27 16:15 19:20 Temp 97.6 97.7 97.6 97.7 Pulse 89 81 Resp 18 21 B/P (MAP) 140/58 (85) 140/69 (92) Pulse Ox 100 100 100 99 O2 Delivery Nasal Cannula Nasal Cannula Nasal Cannula Nasal Cannula O2 Flow Rate 3.5 3.0 3.0 2.5 05/05/18 05/05/18 05/05/18 05/05/18 19:33 20:04 21:44 23:50 Temp 98.3 98.3 Pulse 78 Resp 22 B/P (MAP) 143/61 (88) Pulse Ox 96 94 O2 Delivery Nasal Cannula Nasal Cannula Nasal Cannula Nasal Cannula O2 Flow Rate 3.0 3.0 2.5 2.5 05/06/18 05/06/18 05/06/18 05/06/18 01:38 03:45 07:23 07:30 Temp 97.9 97.9 Pulse 81 Resp 24 B/P (MAP) 146/86 (106) Pulse Ox 95 99 O2 Delivery Nasal Cannula Nasal Cannula Nasal Cannula Nasal Cannula O2 Flow Rate 3.0 2.5 3.0 2.0 05/06/18 05/06/18 05/06/18 05/06/18 07:51 08:02 08:04 08:04 Temp 97.7 97.7 Pulse 75 75 75 B/P (MAP) 136/61 (86) 136/61 136/61 Pulse Ox 99 99 O2 Delivery Nasal Cannula Nasal Cannula O2 Flow Rate 2.0 2.0 05/06/18 05/06/18 05/06/18 09:00 11:00 12:10 Temp 97.5 97.5 Pulse 75 Resp 18 B/P (MAP) 111/52 (71) Pulse Ox 99 97 O2 Delivery Nasal Cannula Nasal Cannula Nasal Cannula O2 Flow Rate 2.0 2.0 3.0 Intake and Output 05/05/18 05/05/18 05/06/18 15:00 23:00 07:00 Intake Total 120 ml 380 ml Output Total 700 ml 1600 ml 500 ml Balance -700 ml -1480 ml -120 ml JOSE LAWTON MD May 06, 2018 14:16
[2018-05-06 15:00] VITALS: BP 112/52
--- NOTE | 2018-05-06 15:16 | PDOC ---
PROGRESS NOTES Subjective Subjective Feels better today. No dyspnea at rest. Objective Objective Vital Signs Date Time Temp Pulse Resp B/P (MAP) Pulse Ox O2 Delivery O2 Flow Rate FiO2 05/06/18 12:10 Nasal Cannula 3.0 05/06/18 11:00 97.5 75 18 111/52 (71) 97 97.5 Intake and Output 05/06/18 07:00 Intake Total 500 ml Output Total 2800 ml Balance -2300 ml Intake Oral 500 ml Output Urine Total 2800 ml Physical Exam Physical Exam Moving air better, no wheezing, only a few Rales. Less edema Assessment Assessment Patient's CHF is improving. We will continue with IV Lasix for another 24 hours and tomorrow we'll resume the patient's Bumex. Comment Review of Relevant I have reviewed the following items jim (where applicable) has been applied. Labs Laboratory Tests Test 05/05/18 00:45 05/05/18 01:01 05/05/18 07:00 05/05/18 07:41 White Blood Count 13.3 x10^3/uL (4.0-11.0) Red Blood Count 3.41 x10^6/uL (3.50-5.40) Hemoglobin 8.3 g/dL (12.0-15.5) Hematocrit 26.6 % (36.0-47.0) Mean Corpuscular Volume 78 fL (79-100) Mean Corpuscular Hemoglobin 25 pg (25-35) Mean Corpuscular Hemoglobin Concent 31 g/dL (31-37) Red Cell Distribution Width 17.4 % (11.5-14.5) Platelet Count 339 x10^3/uL (140-400) Neutrophils (%) (Auto) 68 % (31-73) Lymphocytes (%) (Auto) 22 % (24-48) Monocytes (%) (Auto) 7 % (0-9) Eosinophils (%) (Auto) 3 % (0-3) Basophils (%) (Auto) 1 % (0-3) Neutrophils # (Auto) 9.0 x10^3uL (1.8-7.7) Lymphocytes # (Auto) 2.9 x10^3/uL (1.0-4.8) Monocytes # (Auto) 0.9 x10^3/uL (0.0-1.1) Eosinophils # (Auto) 0.4 x10^3/uL (0.0-0.7) Basophils # (Auto) 0.1 x10^3/uL (0.0-0.2) Sodium Level 140 mmol/L (136-145) Potassium Level 5.0 mmol/L (3.5-5.1) Chloride Level 101 mmol/L (98-107) Carbon Dioxide Level 33 mmol/L (21-32) Anion Gap 6 (6-14) Blood Urea Nitrogen 57 mg/dL (7-20) Creatinine 1.6 mg/dL (0.6-1.0) Estimated GFR (Cockcroft-Gault) 33.5 BUN/Creatinine Ratio 36 (6-20) Glucose Level 225 mg/dL (70-99) Calcium Level 8.8 mg/dL (8.5-10.1) Total Bilirubin 0.2 mg/dL (0.2-1.0) Aspartate Amino Transf (AST/SGOT) 23 U/L (15-37) Alanine Aminotransferase (ALT/SGPT) 36 U/L (14-59) Alkaline Phosphatase 213 U/L (46-116) Troponin I Quantitative < 0.017 ng/mL (0.000-0.055) < 0.017 ng/mL (0.000-0.055) GS-Cea-T-Type Natriuretic Peptide 1082 pg/mL (0-124) Total Protein 7.1 g/dL (6.4-8.2) Albumin 2.8 g/dL (3.4-5.0) Albumin/Globulin Ratio 0.7 (1.0-1.7) O2 Saturation 93 % (92-99) Arterial Blood pH 7.39 (7.35-7.45) Arterial Blood pCO2 at Patient Temp 51 mmHg (35-46) Arterial Blood pO2 at Patient Temp 70 mmHg (75-108) Arterial Blood HCO3 31 mmol/L (21-28) Arterial Blood Base Excess 5 mmol/L (-3-3) FiO2 32 Glucose (Fingerstick) 267 mg/dL (70-99) Test 05/05/18 11:54 05/05/18 17:24 05/05/18 21:27 05/06/18 04:00 Glucose (Fingerstick) 344 mg/dL (70-99) 346 mg/dL (70-99) 311 mg/dL (70-99) White Blood Count 15.4 x10^3/uL (4.0-11.0) Red Blood Count 3.45 x10^6/uL (3.50-5.40) Hemoglobin 8.5 g/dL (12.0-15.5) Hematocrit 26.7 % (36.0-47.0) Mean Corpuscular Volume 77 fL (79-100) Mean Corpuscular Hemoglobin 25 pg (25-35) Mean Corpuscular Hemoglobin Concent 32 g/dL (31-37) Red Cell Distribution Width 17.4 % (11.5-14.5) Platelet Count 377 x10^3/uL (140-400) Neutrophils (%) (Auto) 85 % (31-73) Lymphocytes (%) (Auto) 8 % (24-48) Monocytes (%) (Auto) 8 % (0-9) Eosinophils (%) (Auto) 0 % (0-3) Basophils (%) (Auto) 0 % (0-3) Neutrophils # (Auto) 13.0 x10^3uL (1.8-7.7) Lymphocytes # (Auto) 1.2 x10^3/uL (1.0-4.8) Monocytes # (Auto) 1.2 x10^3/uL (0.0-1.1) Eosinophils # (Auto) 0.0 x10^3/uL (0.0-0.7) Basophils # (Auto) 0.0 x10^3/uL (0.0-0.2) Segmented Neutrophils % 87 % (35-66) Band Neutrophils % 2 % (0-9) Lymphocytes % 7 % (24-48) Monocytes % 4 % (0-10) Nucleated Red Blood Cells 1 Platelet Estimate Adequate (ADEQUATE) Polychromasia Present Hypochromasia Present Basophilic Stippling Present Anisocytosis Slight Sodium Level 137 mmol/L (136-145) Potassium Level 4.8 mmol/L (3.5-5.1) Chloride Level 99 mmol/L (98-107) Carbon Dioxide Level 33 mmol/L (21-32) Anion Gap 5 (6-14) Blood Urea Nitrogen 56 mg/dL (7-20) Creatinine 1.5 mg/dL (0.6-1.0) Estimated GFR (Cockcroft-Gault) 36.1 Glucose Level 350 mg/dL (70-99) Calcium Level 9.3 mg/dL (8.5-10.1) Test 05/06/18 07:15 05/06/18 11:30 Glucose (Fingerstick) 308 mg/dL (70-99) 346 mg/dL (70-99) Laboratory Tests Test 05/05/18 17:24 05/05/18 21:27 05/06/18 04:00 05/06/18 07:15 Glucose (Fingerstick) 346 mg/dL (70-99) 311 mg/dL (70-99) 308 mg/dL (70-99) White Blood Count 15.4 x10^3/uL (4.0-11.0) Red Blood Count 3.45 x10^6/uL (3.50-5.40) Hemoglobin 8.5 g/dL (12.0-15.5) Hematocrit 26.7 % (36.0-47.0) Mean Corpuscular Volume 77 fL (79-100) Mean Corpuscular Hemoglobin 25 pg (25-35) Mean Corpuscular Hemoglobin Concent 32 g/dL (31-37) Red Cell Distribution Width 17.4 % (11.5-14.5) Platelet Count 377 x10^3/uL (140-400) Neutrophils (%) (Auto) 85 % (31-73) Lymphocytes (%) (Auto) 8 % (24-48) Monocytes (%) (Auto) 8 % (0-9) Eosinophils (%) (Auto) 0 % (0-3) Basophils (%) (Auto) 0 % (0-3) Neutrophils # (Auto) 13.0 x10^3uL (1.8-7.7) Lymphocytes # (Auto) 1.2 x10^3/uL (1.0-4.8) Monocytes # (Auto) 1.2 x10^3/uL (0.0-1.1) Eosinophils # (Auto) 0.0 x10^3/uL (0.0-0.7) Basophils # (Auto) 0.0 x10^3/uL (0.0-0.2) Segmented Neutrophils % 87 % (35-66) Band Neutrophils % 2 % (0-9) Lymphocytes % 7 % (24-48) Monocytes % 4 % (0-10) Nucleated Red Blood Cells 1 Platelet Estimate Adequate (ADEQUATE) Polychromasia Present Hypochromasia Present Basophilic Stippling Present Anisocytosis Slight Sodium Level 137 mmol/L (136-145) Potassium Level 4.8 mmol/L (3.5-5.1) Chloride Level 99 mmol/L (98-107) Carbon Dioxide Level 33 mmol/L (21-32) Anion Gap 5 (6-14) Blood Urea Nitrogen 56 mg/dL (7-20) Creatinine 1.5 mg/dL (0.6-1.0) Estimated GFR (Cockcroft-Gault) 36.1 Glucose Level 350 mg/dL (70-99) Calcium Level 9.3 mg/dL (8.5-10.1) Test 05/06/18 11:30 Glucose (Fingerstick) 346 mg/dL (70-99) Medications Current Medications Ipratropium [place] (Atrovent) 0.5 mg 1X ONCE NEB Last administered on at 00:30; Start 05/05/18 at 00:30; Stop 05/05/18 at 00:31; Status DC Methylprednisolone Sodium Succinate (SOLU-Medrol 125MG VIAL) 125 mg 1X ONCE IV Last administered on 05/05/18at 00:56; Start 05/05/18 at 00:30; Stop 05/05/18 at 00:31; Status DC Morphine Sulfate (Morphine Sulfate) 2 mg PRN Q15MIN PRN IV/SQ PAIN GREATER THAN 3/10 Last administered on 05/05/18at 00:57; Start 05/05/18 at 00:30; Stop at 00:29; Status DC Albuterol Sulfate (Ventolin Neb Soln) 5 mg 1X ONCE NEB Last administered on 08/12at 00:30; Start 05/05/18 at 00:30; Stop 05/05/18 at 00:31; Status DC Furosemide (Lasix) 60 mg 1X ONCE IVP Last administered on 05/05/18at 03:01; Start 05/05/18 at 02:15; Stop 05/05/18 at 02:16; Status DC Acetaminophen (Tylenol) 650 mg PRN Q4HRS PRN PO FEVER; Start 05/05/18 at 03:30 ; Stop 05/06/18 at 03:29; Status DC Albuterol/ Ipratropium (Duoneb) 3 ml RTQID NEB Last administered on 05/05/18at 11:34; Start 05/05/18 at 08:00; Stop 05/05/18 at 14:29; Status DC Pharmacy Consult (C.diff Med Screen By Rx) 1 each 1X ONCE [facility] ; Start 05/05/18 at 09:00; Stop 05/05/18 at 09:01; Status Cancel Lactobacillus Rhamnosus (Culturelle) 1 cap BID PO Last administered on at 08:03; Start 05/05/18 at 21:00 Alprazolam (Xanax) 0.5 mg PRN Q6HRS PRN PO ANXIETY / AGITATION Last administered on 05/05/18at 21:44; Start 05/05/18 at 11:00 Amlodipine Besylate (Norvasc) 5 mg DAILY PO Last administered on 05/06/18at 08: 04; Start 05/05/18 at 11:30 Apixaban (Eliquis) 5 mg BID PO Last administered on 05/06/18at 08:03; Start 08/12 at 11:30 Aspirin (Children'S Aspirin) 81 mg DAILY PO Last administered on 05/06/18at 08: 03; Start 05/05/18 at 11:30 Atorvastatin Calcium (Lipitor) 40 mg HS PO Last administered on 05/05/18at 21:45 ; Start 05/05/18 at 21:00 Bumetanide (Bumex) 1 mg BID92 PO ; Start 05/05/18 at 11:30; Status Cancel Docusate Sodium (Colace) 100 mg BID PO Last administered on 05/06/18at 08:03; Start 05/05/18 at 11:30 Insulin Human Lispro (HumaLOG) 40 units TIDAC SQ ; Start 05/05/18 at 11:30; Stop 05/05/18 at 11:30; Status DC Albuterol Sulfate (Ventolin Neb Soln) 2.5 mg PRN QID PRN NEB SHORTNESS OF BREATH; Start 05/05/18 at 11:30; Stop 05/05/18 at 11:30; Status DC Lubiprostone (Amitiza) 8 mcg BIDWMEALS PO Last administered on 05/06/18 08:03 ; Start 05/05/18 at 11:30 Metoprolol Succinate (Toprol Xl) 50 mg DAILY PO Last administered on 05/06/18 08:04; Start 05/05/18 at 11:30 Nitroglycerin (Nitrostat) 0.4 mg PRN Q5MIN PRN SL CP RATING > 1/10; Start 05/05 at 11:00 Senna/Docusate Sodium (Senna Plus) 1 tab BID PO Last administered on 05/06/18 08:05; Start 05/05/18 at 11:30 Non-Formulary Medication (Albuterol Sulfate (Ventolin Hfa Inhaler)) 2 puff PRN Q4HRS PRN INH SHORTNESS OF BREATH; Start 05/05/18 at 11:00; Status UNV Doxepin HCl (SINEquan) 50 mg PRN QHS PRN PO INSOMNIA Last administered on 21:43; Start 05/05/18 at 21:00 Non-Formulary Medication (Dulaglutide (Trulicity)) 0.75 mg QFR SUBCUT ; Start at 16:00; Status UNV Duloxetine HCl (Cymbalta) 60 mg BID PO Last administered on 05/06/18 08:03; Start 05/05/18 at 11:30 Pantoprazole Sodium (Protonix) 40 mg BIDAC PO Last administered on 05/06/18 08 :05; Start 05/05/18 at 11:30 Fluticasone Propionate (Flonase) 2 spray PRN DAILY PRN NS ALLERGIES; Start 08/12 at 11:09 Insulin Glargine (Lantus) 65 units BID SQ ; Start 05/05/18 at 11:30; Stop at 11:30; Status DC Levothyroxine Sodium (Synthroid) 50 mcg DAILY07 PO Last administered on 07:07; Start 05/05/18 at 11:30 Oxybutynin Chloride (Ditropan) 2.5 mg BID PO Last administered on 05/06/18 08: 04; Start 05/05/18 at 11:30 Pregabalin (Lyrica) 150 mg BID PO Last administered on 8/12/18at 08:05; Start 05/05/18 at 11:30 Spironolactone (Aldactone) 25 mg DAILY PO Last administered on 05/06/18at 08:03 ; Start 05/05/18 at 11:30 Insulin Human Lispro (HumaLOG) 0-9 UNITS TIDWMEALS SQ ; Start 05/05/18 at 12:00 ; Status Cancel Dextrose (Dextrose 50%-Water Syringe) 12.5 gm PRN Q15MIN PRN IV SEE COMMENTS; Start 05/05/18 at 11:00 Insulin Human Lispro (HumaLOG) 35 units TIDAC SQ Last administered on at 08:08; Start 05/05/18 at 11:30; Stop 05/06/18 at 10:30; Status DC Non-Formulary Medication (60) 65 unit BID SQ ; Start 05/05/18 at 21:00; Status UNV Insulin Human Lispro (HumaLOG) 0-9 UNITS TIDWMEALS SQ Last administered on 05/06at 12:04; Start 05/05/18 at 12:00 Dextrose (Dextrose 50%-Water Syringe) 12.5 gm PRN Q15MIN PRN IV SEE COMMENTS; Start 05/05/18 at 11:15; Status UNV Furosemide (Lasix) 40 mg BID92 IVP Last administered on 05/06/18at 13:35; Start 05/05/18 at 11:30 Insulin Glargine (Lantus) 60 units BID SQ Last administered on 05/05/18at 21:50 ; Start 05/05/18 at 21:00; Stop 05/06/18 at 07:25; Status DC Albuterol Sulfate (Ventolin Neb Soln) 2.5 mg PRN Q4HRS PRN NEB SHORTNESS OF BREATH; Start 05/05/18 at 11:30; Stop 05/05/18 at 14:29; Status DC Acetaminophen/ Hydrocodone Bitart (Lortab 10/325) 1 tab PRN Q6HRS PRN PO SEVERE PAIN Last administered on 05/06/18at 08:02; Start 05/05/18 at 11:45 Budesonide (Pulmicort) 0.5 mg 1X ONCE NEB Last administered on 05/05/18at 12:08 ; Start 05/05/18 at 12:00; Stop 05/05/18 at 12:01; Status DC Budesonide (Pulmicort) 0.5 mg RTBID NEB Last administered on 05/05/18at 19:46; Start 05/05/18 at 20:00 Furosemide (Lasix) 80 mg 1X ONCE IVP Last administered on 05/05/18at 13:57; Start 05/05/18 at 14:00; Stop 05/05/18 at 14:01; Status DC Albuterol/ Ipratropium (Duoneb) 3 ml RTQID NEB Last administered on 05/06/18at 12:09; Start 05/05/18 at 16:00 Albuterol Sulfate (Ventolin Neb Soln) 2.5 mg PRN Q2HR PRN NEB SHORTNESS OF BREATH Last administered on 05/06/18at 01:39; Start 05/05/18 at 14:30 Guaifenesin (Mucinex) 600 mg BID PO Last administered on 05/06/18at 08:04; Start 05/05/18 at 15:00 Info (Anti-Coagulation Monitoring By Pharmacy) 1 each PRN DAILY PRN [facility] SEE COMMENTS; Start 05/05/18 at 14:45 Insulin Glargine (Lantus) 65 units BID SQ Last administered on 05/06/18at 08:09 ; Start 05/06/18 at 09:00 Insulin Human Lispro (HumaLOG) 40 units TIDAC SQ Last administered on at 12:06; Start 05/06/18 at 11:30 Acetaminophen (Tylenol) 650 mg PRN Q6HRS PRN PO FEVER; Start 05/06/18 at 14:15 Ondansetron HCl (Zofran) 4 mg PRN Q6HRS PRN IV NAUSEA/VOMITING; Start 05/06/18 at 14:15 Morphine Sulfate (Morphine Sulfate) 2 mg PRN Q2HR PRN IV MODERATE TO SEVERE PAIN; Start 05/06/18 at 14:15 Tramadol HCl (Ultram) 50 mg PRN Q6HRS PRN PO MILD TO MODERATE PAIN; Start 05/06 at 14:15 Hydralazine HCl (Apresoline Inj) 10 mg PRN Q4HRS PRN IVP ELEVATED BP, SEE COMMENTS; Start 8/12/18 at 14:15 Docusate Sodium (Colace) 100 mg PRN DAILY PRN PO CONSTIPATION; Start 05/06/18 at 14:15 Active Scripts Active Colace (Docusate Sodium) 100 Mg Capsule 100 Mg PO BID Senna-Time S Tablet (Sennosides/Docusate Sodium) 1 Each Tablet 1 Tab PO BID Amitiza (Lubiprostone) 8 Mcg Capsule 8 Mcg PO BIDWMEALS Nitrostat (Nitroglycerin) 0.4 Mg Tab.subl 0.4 Mg SL PRN Q5MIN PRN 30 Days Reported Spironolactone 25 Mg Tablet 1 Tab PO DAILY Bumetanide 1 Mg Tablet 1 Tab PO BID92 Duloxetine Hcl 60 Mg Capsule.dr 60 Mg PO BID Trulicity (Dulaglutide) 0.75 Mg/0.5 Ml Pen.injctr 0.75 Mg SUBCUT QFR Amlodipine Besylate 5 Mg Tablet 5 Mg PO DAILY Levemir Flextouch (Insulin Detemir) 100 Unit/1 Ml Insuln.pen 65 Unit SQ BID Xanax (Alprazolam) 0.5 Mg Tablet 0.5 Mg PO PRN Q6HRS PRN Ventolin Hfa Inhaler (Albuterol Sulfate) 18 Gm Hfa.aer.ad 2 Puff INH PRN Q4HRS PRN Oxybutynin Chloride Er (Oxybutynin Chloride) 5 Mg Tab.er.24 1 Tab PO DAILY Duoneb 0.5-3(2.5) Mg/3 Ml (Albuterol/Ipratropium) 3 Ml Ampul.neb 3 Ml NEB PRN QID PRN Flonase Allergy Relief (Fluticasone Propionate) 9.9 Ml [place].susp 2 Sprays NS PRN PRN Doxepin Hcl 50 Mg Capsule 1 Cap PO PRN QHS PRN Clonidine Hcl 0.1 Mg Tablet 1 Tab PO PRN PRN When SBP >150 Humalog (Insulin Lispro) 100 Unit/1 Ml Insuln.pen 40 Unit SQ TIDAC Eliquis (Apixaban) 5 Mg Tablet 5 Mg PO BID Metoprolol Succinate ( Xl ) (Metoprolol Succinate) 25 Mg Tab.er.24h 2 Tab PO DAILY Lyrica (Pregabalin) 150 Mg Capsule 1 Cap PO BID Atorvastatin Calcium 20 Mg Tablet 2 Tab PO HS Nexium Capsule (Esomeprazole Magnesium) 40 Mg Capsule. 1 Cap PO BID Aspirin 81 Mg Tab.chew 1 Tab PO DAILY Levothyroxine Sodium 50 Mcg Tablet 1 Tab PO DAILY Vitals/I & O Vital Sign - Last 24 Hours 05/05/18 05/05/18 05/05/18 05/05/18 15:27 16:15 19:20 19:33 Temp 97.7 97.7 Pulse 81 Resp 21 B/P (MAP) 140/69 (92) Pulse Ox 100 100 99 96 O2 Delivery Nasal Cannula Nasal Cannula Nasal Cannula Nasal Cannula O2 Flow Rate 3.0 3.0 2.5 3.0 05/05/18 05/05/18 05/05/18 05/06/18 20:04 21:44 23:50 01:38 Temp 98.3 98.3 Pulse 78 Resp 22 B/P (MAP) 143/61 (88) Pulse Ox 94 O2 Delivery Nasal Cannula Nasal Cannula Nasal Cannula Nasal Cannula O2 Flow Rate 3.0 2.5 2.5 3.0 05/06/18 05/06/18 05/06/18 05/06/18 03:45 07:23 07:30 07:51 Temp 97.9 97.7 97.9 97.7 Pulse 81 75 Resp 24 B/P (MAP) 146/86 (106) 136/61 (86) Pulse Ox 95 99 99 O2 Delivery Nasal Cannula Nasal Cannula Nasal Cannula Nasal Cannula O2 Flow Rate 2.5 3.0 2.0 2.0 05/06/18 05/06/18 05/06/18 05/06/18 08:02 08:04 08:04 09:00 Pulse 75 75 B/P (MAP) 136/61 136/61 Pulse Ox 99 99 O2 Delivery Nasal Cannula Nasal Cannula O2 Flow Rate 2.0 2.0 05/06/18 05/06/18 11:00 12:10 Temp 97.5 97.5 Pulse 75 Resp 18 B/P (MAP) 111/52 (71) Pulse Ox 97 O2 Delivery Nasal Cannula Nasal Cannula O2 Flow Rate 2.0 3.0 Intake and Output 05/05/18 05/05/18 05/06/18 15:00 23:00 07:00 Intake Total 120 ml 380 ml Output Total 700 ml 1600 ml 500 ml Balance -700 ml -1480 ml -120 ml JON WEAVER MD May 06, 2018 15:16
[2018-05-06] MEDS: ANTI-COAG MONITOR BY PHARMACY. MC PRN (15:48)
[2018-05-06] MEDS: BUDESONIDE 0.5 MG/2 ML NEBU. NEB SCH ×2 (18:33→20:00)
[2018-05-06 19:25] VITALS: BP 114/63
[2018-05-06] MEDS: ATORVASTATIN CALCIUM 40 MG TABLET. PO SCH (20:58)
[2018-05-06 23:25] VITALS: BP 114/63
[2018-05-07 02:55] VITALS: BP 113/57
[2018-05-07 05:09] LABS: BASO # 0.1 x10^3/uL (0.0-0.2); BASO % 1 % (0-3); EOS # 0.6 x10^3/uL (0.0-0.7); EOS % 4 % (0-3); HEMATOCRIT 28.6 % (36.0-47.0); HEMOGLOBIN 8.9 g/dL (12.0-15.5); LYMPH # 3.6 x10^3/uL (1.0-4.8); LYMPH % 24 % (24-48); MEAN CORPUSCULAR HEMOGLOBIN 24 pg (25-35); MEAN CORPUSCULAR HGB CONC 31 g/dL (31-37); MEAN CORPUSCULAR VOLUME 78 fL (79-100); MONO # 1.5 x10^3/uL (0.0-1.1); MONO % 10 % (0-9); NEUT % 61 % (31-73); PLATELET COUNT 428 x10^3/uL (140-400); RED BLOOD COUNT 3.68 x10^6/uL (3.50-5.40); WHITE BLOOD COUNT 14.8 x10^3/uL (4.0-11.0)
[2018-05-07 05:29] LABS: CALCIUM 9.2 mg/dL (8.5-10.1); CREATININE 1.4 mg/dL (0.6-1.0); POTASSIUM 4.4 mmol/L (3.5-5.1)
[2018-05-07] MEDS: LEVOTHYROXINE 50 MCG TABLET PO SCH (06:28)
[2018-05-07 07:00] VITALS: BP 142/72
[2018-05-07] MEDS: BUDESONIDE 0.5 MG/2 ML NEBU. NEB SCH ×2 (07:55→20:12)
[2018-05-07] MEDS: IPRATRPIUM/ALBUTEROL 0.5/2.5MG 3 ML NEBU. NEB SCH ×4 (07:55→20:12)
[2018-05-07] MEDS: INSULIN LISPRO 300 UNITS/3 ML INSULN.PEN. SQ SCH ×6 (08:00→17:52)
[2018-05-07] MEDS: PREGABALIN 75 MG CAPSULE PO SCH ×2 (09:00→20:42)
[2018-05-07] MEDS: BUMETANIDE 1 MG TABLET. PO SCH (09:15)
[2018-05-07] MEDS: DOCUSATE SODIUM 100 MG CAPSULE. PO SCH ×2 (09:15→20:38)
[2018-05-07] MEDS: DULoxetine HCL 30 MG CAPSULE.DR PO SCH ×2 (09:15→20:38)
[2018-05-07] MEDS: SENNOSIDES/DOCUSATE 8.6/50MG TABLET. PO SCH ×2 (09:16→20:43)
[2018-05-07] MEDS: SPIRONOLACTONE 25 MG TABLET PO SCH (09:16)
[2018-05-07] MEDS: ASPIRIN CHEWABLE 81 MG TABLET. PO SCH (09:16)
[2018-05-07] MEDS: OXYBUTYNIN CHLORIDE 5 MG TABLET PO SCH ×2 (09:16→20:39)
[2018-05-07] MEDS: PANTOPRAZOLE 40 MG TABLET.DR. PO SCH ×2 (09:16→17:48)
[2018-05-07] MEDS: METOPROLOL SUCC 24HR ER 50 MG TAB.ER.24H. PO SCH (09:17)
[2018-05-07] MEDS: APIXABAN 5 MG TABLET. PO SCH ×2 (09:17→20:40)
[2018-05-07] MEDS: LACTOBACILLUS RHAMNOSUS GG 1 CAPSULE. PO SCH ×2 (09:17→20:38)
[2018-05-07] MEDS: amLODIPine BESYLATE 5 MG TABLET PO SCH (09:17)
[2018-05-07] MEDS: LUBIPROSTONE 8 MCG CAPSULE PO SCH ×2 (09:18→17:48)
[2018-05-07] MEDS: INSULIN GLARGINE 300 UNITS/3 ML INSULN.PEN. SQ SCH ×2 (09:34→21:06)
[2018-05-07 11:00] VITALS: BP 126/72
[2018-05-07] MEDS: ANTI-COAG MONITOR BY PHARMACY. MC PRN (11:57)
--- NOTE | 2018-05-07 12:01 | PDOC ---
PROGRESS NOTES Chief Complaint Chief Complaint acute on chronic resp failure with chronic diastolic chf exacerbation copd pafib h/o dvt, PE on asa, eliquis h/o CAD POST stents morbid obesity leukocytosis, SIRS dm2 on high dose insulin anemia, chronic moderate malnutrition History of Present Illness History of Present Illness Patient resting in chair NAD She was eating breakfast when we came in She says she is doing much better today and is close to her baseline DW RN Vitals Vitals Vital Signs Date Time Temp Pulse Resp B/P (MAP) Pulse Ox O2 Delivery O2 Flow Rate FiO2 05/07/18 11:53 Nasal Cannula 2.0 05/07/18 09:17 78 142/72 05/07/18 07:56 98 05/07/18 07:00 97.7 20 97.7 Physical Exam General: Alert, Oriented X3, Cooperative, mild distress Heart: Regular rate, Normal S1, Normal S2, Other (irregularly irregular, S1, S2 , no rubs) Lungs: Crackles (bl mild crackles), Other Abdomen: Normal bowel sounds, Soft, No tenderness, Other (mild distended.) Extremities: Other (3+ edema bilaterally, tightness. rt 3rd toe small wound with dry blood on) Labs LABS Laboratory Tests Test 05/06/18 17:23 05/06/18 20:56 05/07/18 04:35 05/07/18 07:41 Glucose (Fingerstick) 298 mg/dL (70-99) 242 mg/dL (70-99) 112 mg/dL (70-99) White Blood Count 14.8 x10^3/uL (4.0-11.0) Red Blood Count 3.68 x10^6/uL (3.50-5.40) Hemoglobin 8.9 g/dL (12.0-15.5) Hematocrit 28.6 % (36.0-47.0) Mean Corpuscular Volume 78 fL (79-100) Mean Corpuscular Hemoglobin 24 pg (25-35) Mean Corpuscular Hemoglobin Concent 31 g/dL (31-37) Red Cell Distribution Width 17.0 % (11.5-14.5) Platelet Count 428 x10^3/uL (140-400) Neutrophils (%) (Auto) 61 % (31-73) Lymphocytes (%) (Auto) 24 % (24-48) Monocytes (%) (Auto) 10 % (0-9) Eosinophils (%) (Auto) 4 % (0-3) Basophils (%) (Auto) 1 % (0-3) Neutrophils # (Auto) 9.0 x10^3uL (1.8-7.7) Lymphocytes # (Auto) 3.6 x10^3/uL (1.0-4.8) Monocytes # (Auto) 1.5 x10^3/uL (0.0-1.1) Eosinophils # (Auto) 0.6 x10^3/uL (0.0-0.7) Basophils # (Auto) 0.1 x10^3/uL (0.0-0.2) Sodium Level 141 mmol/L (136-145) Potassium Level 4.4 mmol/L (3.5-5.1) Chloride Level 101 mmol/L (98-107) Carbon Dioxide Level 38 mmol/L (21-32) Anion Gap 2 (6-14) Blood Urea Nitrogen 53 mg/dL (7-20) Creatinine 1.4 mg/dL (0.6-1.0) Estimated GFR (Cockcroft-Gault) 39.0 Glucose Level 129 mg/dL (70-99) Calcium Level 9.2 mg/dL (8.5-10.1) Review of Systems Review of Systems Denies N/V Denies TABOR Denies muscle weakness Assessment and Plan Assessmemt and Plan acute on chronic resp failure with chronic diastolic chf exacerbation copd pafib h/o dvt, PE on asa, eliquis h/o CAD POST stents morbid obesity leukocytosis, SIRS dm2 on high dose insulin anemia, chronic moderate malnutrition plan: Diuretics, switched back to bymex from lasix Breathing treatments Abx O2 PT/OT DC when OK with subspecialties Comment Review of Relevant I have reviewed the following items jim (where applicable) has been applied. Labs Laboratory Tests Test 05/05/18 17:24 05/05/18 21:27 05/06/18 04:00 05/06/18 07:15 Glucose (Fingerstick) 346 mg/dL (70-99) 311 mg/dL (70-99) 308 mg/dL (70-99) White Blood Count 15.4 x10^3/uL (4.0-11.0) Red Blood Count 3.45 x10^6/uL (3.50-5.40) Hemoglobin 8.5 g/dL (12.0-15.5) Hematocrit 26.7 % (36.0-47.0) Mean Corpuscular Volume 77 fL (79-100) Mean Corpuscular Hemoglobin 25 pg (25-35) Mean Corpuscular Hemoglobin Concent 32 g/dL (31-37) Red Cell Distribution Width 17.4 % (11.5-14.5) Platelet Count 377 x10^3/uL (140-400) Neutrophils (%) (Auto) 85 % (31-73) Lymphocytes (%) (Auto) 8 % (24-48) Monocytes (%) (Auto) 8 % (0-9) Eosinophils (%) (Auto) 0 % (0-3) Basophils (%) (Auto) 0 % (0-3) Neutrophils # (Auto) 13.0 x10^3uL (1.8-7.7) Lymphocytes # (Auto) 1.2 x10^3/uL (1.0-4.8) Monocytes # (Auto) 1.2 x10^3/uL (0.0-1.1) Eosinophils # (Auto) 0.0 x10^3/uL (0.0-0.7) Basophils # (Auto) 0.0 x10^3/uL (0.0-0.2) Segmented Neutrophils % 87 % (35-66) Band Neutrophils % 2 % (0-9) Lymphocytes % 7 % (24-48) Monocytes % 4 % (0-10) Nucleated Red Blood Cells 1 Platelet Estimate Adequate (ADEQUATE) Polychromasia Present Hypochromasia Present Basophilic Stippling Present Anisocytosis Slight Sodium Level 137 mmol/L (136-145) Potassium Level 4.8 mmol/L (3.5-5.1) Chloride Level 99 mmol/L (98-107) Carbon Dioxide Level 33 mmol/L (21-32) Anion Gap 5 (6-14) Blood Urea Nitrogen 56 mg/dL (7-20) Creatinine 1.5 mg/dL (0.6-1.0) Estimated GFR (Cockcroft-Gault) 36.1 Glucose Level 350 mg/dL (70-99) Calcium Level 9.3 mg/dL (8.5-10.1) Test 05/06/18 11:30 05/06/18 17:23 05/06/18 20:56 05/07/18 04:35 Glucose (Fingerstick) 346 mg/dL (70-99) 298 mg/dL (70-99) 242 mg/dL (70-99) White Blood Count 14.8 x10^3/uL (4.0-11.0) Red Blood Count 3.68 x10^6/uL (3.50-5.40) Hemoglobin 8.9 g/dL (12.0-15.5) Hematocrit 28.6 % (36.0-47.0) Mean Corpuscular Volume 78 fL (79-100) Mean Corpuscular Hemoglobin 24 pg (25-35) Mean Corpuscular Hemoglobin Concent 31 g/dL (31-37) Red Cell Distribution Width 17.0 % (11.5-14.5) Platelet Count 428 x10^3/uL (140-400) Neutrophils (%) (Auto) 61 % (31-73) Lymphocytes (%) (Auto) 24 % (24-48) Monocytes (%) (Auto) 10 % (0-9) Eosinophils (%) (Auto) 4 % (0-3) Basophils (%) (Auto) 1 % (0-3) Neutrophils # (Auto) 9.0 x10^3uL (1.8-7.7) Lymphocytes # (Auto) 3.6 x10^3/uL (1.0-4.8) Monocytes # (Auto) 1.5 x10^3/uL (0.0-1.1) Eosinophils # (Auto) 0.6 x10^3/uL (0.0-0.7) Basophils # (Auto) 0.1 x10^3/uL (0.0-0.2) Sodium Level 141 mmol/L (136-145) Potassium Level 4.4 mmol/L (3.5-5.1) Chloride Level 101 mmol/L (98-107) Carbon Dioxide Level 38 mmol/L (21-32) Anion Gap 2 (6-14) Blood Urea Nitrogen 53 mg/dL (7-20) Creatinine 1.4 mg/dL (0.6-1.0) Estimated GFR (Cockcroft-Gault) 39.0 Glucose Level 129 mg/dL (70-99) Calcium Level 9.2 mg/dL (8.5-10.1) Test 05/07/18 07:41 Glucose (Fingerstick) 112 mg/dL (70-99) Laboratory Tests Test 05/06/18 17:23 05/06/18 20:56 05/07/18 04:35 05/07/18 07:41 Glucose (Fingerstick) 298 mg/dL (70-99) 242 mg/dL (70-99) 112 mg/dL (70-99) White Blood Count 14.8 x10^3/uL (4.0-11.0) Red Blood Count 3.68 x10^6/uL (3.50-5.40) Hemoglobin 8.9 g/dL (12.0-15.5) Hematocrit 28.6 % (36.0-47.0) Mean Corpuscular Volume 78 fL (79-100) Mean Corpuscular Hemoglobin 24 pg (25-35) Mean Corpuscular Hemoglobin Concent 31 g/dL (31-37) Red Cell Distribution Width 17.0 % (11.5-14.5) Platelet Count 428 x10^3/uL (140-400) Neutrophils (%) (Auto) 61 % (31-73) Lymphocytes (%) (Auto) 24 % (24-48) Monocytes (%) (Auto) 10 % (0-9) Eosinophils (%) (Auto) 4 % (0-3) Basophils (%) (Auto) 1 % (0-3) Neutrophils # (Auto) 9.0 x10^3uL (1.8-7.7) Lymphocytes # (Auto) 3.6 x10^3/uL (1.0-4.8) Monocytes # (Auto) 1.5 x10^3/uL (0.0-1.1) Eosinophils # (Auto) 0.6 x10^3/uL (0.0-0.7) Basophils # (Auto) 0.1 x10^3/uL (0.0-0.2) Sodium Level 141 mmol/L (136-145) Potassium Level 4.4 mmol/L (3.5-5.1) Chloride Level 101 mmol/L (98-107) Carbon Dioxide Level 38 mmol/L (21-32) Anion Gap 2 (6-14) Blood Urea Nitrogen 53 mg/dL (7-20) Creatinine 1.4 mg/dL (0.6-1.0) Estimated GFR (Cockcroft-Gault) 39.0 Glucose Level 129 mg/dL (70-99) Calcium Level 9.2 mg/dL (8.5-10.1) Medications Current Medications Ipratropium [place] (Atrovent) 0.5 mg 1X ONCE NEB Last administered on at 00:30; Start 05/05/18 at 00:30; Stop 05/05/18 at 00:31; Status DC Methylprednisolone Sodium Succinate (SOLU-Medrol 125MG VIAL) 125 mg 1X ONCE IV Last administered on 05/05/18at 00:56; Start 05/05/18 at 00:30; Stop 05/05/18 at 00:31; Status DC Morphine Sulfate (Morphine Sulfate) 2 mg PRN Q15MIN PRN IV/SQ PAIN GREATER THAN 3/10 Last administered on 05/05/18at 00:57; Start 05/05/18 at 00:30; Stop at 00:29; Status DC Albuterol Sulfate (Ventolin Neb Soln) 5 mg 1X ONCE NEB Last administered on 08/12at 00:30; Start 05/05/18 at 00:30; Stop 05/05/18 at 00:31; Status DC Furosemide (Lasix) 60 mg 1X ONCE IVP Last administered on 05/05/18at 03:01; Start 05/05/18 at 02:15; Stop 05/05/18 at 02:16; Status DC Acetaminophen (Tylenol) 650 mg PRN Q4HRS PRN PO FEVER; Start 05/05/18 at 03:30 ; Stop 05/06/18 at 03:29; Status DC Albuterol/ Ipratropium (Duoneb) 3 ml RTQID NEB Last administered on 05/05/18at 11:34; Start 05/05/18 at 08:00; Stop 05/05/18 at 14:29; Status DC Pharmacy Consult (C.diff Med Screen By Rx) 1 each 1X ONCE [facility] ; Start 05/05/18 at 09:00; Stop 05/05/18 at 09:01; Status Cancel Lactobacillus Rhamnosus (Culturelle) 1 cap BID PO Last administered on 09:17; Start 05/05/18 at 21:00 Alprazolam (Xanax) 0.5 mg PRN Q6HRS PRN PO ANXIETY / AGITATION Last administered on 05/05/18at 21:44; Start 05/05/18 at 11:00 Amlodipine Besylate (Norvasc) 5 mg DAILY PO Last administered on 05/07/18 09: 17; Start 05/05/18 at 11:30 Apixaban (Eliquis) 5 mg BID PO Last administered on 05/07/18 09:17; Start 08/12 at 11:30 Aspirin (Children'S Aspirin) 81 mg DAILY PO Last administered on 05/07/18 09: 16; Start 05/05/18 at 11:30 Atorvastatin Calcium (Lipitor) 40 mg HS PO Last administered on 05/06/18at 20:58 ; Start 05/05/18 at 21:00 Bumetanide (Bumex) 1 mg BID92 PO ; Start 05/05/18 at 11:30; Status Cancel Docusate Sodium (Colace) 100 mg BID PO Last administered on 05/07/18at 09:15; Start 05/05/18 at 11:30 Insulin Human Lispro (HumaLOG) 40 units TIDAC SQ ; Start 05/05/18 at 11:30; Stop 05/05/18 at 11:30; Status DC Albuterol Sulfate (Ventolin Neb Soln) 2.5 mg PRN QID PRN NEB SHORTNESS OF BREATH; Start 05/05/18 at 11:30; Stop 05/05/18 at 11:30; Status DC Lubiprostone (Amitiza) 8 mcg BIDWMEALS PO Last administered on 05/07/18 09:18 ; Start 05/05/18 at 11:30 Metoprolol Succinate (Toprol Xl) 50 mg DAILY PO Last administered on 05/07/18 09:17; Start 05/05/18 at 11:30 Nitroglycerin (Nitrostat) 0.4 mg PRN Q5MIN PRN SL CP RATING > 1/10; Start 05/05 at 11:00 Senna/Docusate Sodium (Senna Plus) 1 tab BID PO Last administered on 05/07/18 09:16; Start 05/05/18 at 11:30 Non-Formulary Medication (Albuterol Sulfate (Ventolin Hfa Inhaler)) 2 puff PRN Q4HRS PRN INH SHORTNESS OF BREATH; Start 05/05/18 at 11:00; Status UNV Doxepin HCl (SINEquan) 50 mg PRN QHS PRN PO INSOMNIA Last administered on at 21:43; Start 05/05/18 at 21:00 Non-Formulary Medication (Dulaglutide (Trulicity)) 0.75 mg QFR SUBCUT ; Start at 16:00; Status UNV Duloxetine HCl (Cymbalta) 60 mg BID PO Last administered on 05/07/18 09:15; Start 05/05/18 at 11:30 Pantoprazole Sodium (Protonix) 40 mg BIDAC PO Last administered on 05/07/18 09 :16; Start 05/05/18 at 11:30 Fluticasone Propionate (Flonase) 2 spray PRN DAILY PRN NS ALLERGIES; Start 08/12 at 11:09 Insulin Glargine (Lantus) 65 units BID SQ ; Start 05/05/18 at 11:30; Stop at 11:30; Status DC Levothyroxine Sodium (Synthroid) 50 mcg DAILY07 PO Last administered on 06:28; Start 05/05/18 at 11:30 Oxybutynin Chloride (Ditropan) 2.5 mg BID PO Last administered on 05/07/18 09: 16; Start 05/05/18 at 11:30 Pregabalin (Lyrica) 150 mg BID PO Last administered on 05/06/18at 20:57; Start 05/05/18 at 11:30 Spironolactone (Aldactone) 25 mg DAILY PO Last administered on 05/07/18 09:16 ; Start 05/05/18 at 11:30 Insulin Human Lispro (HumaLOG) 0-9 UNITS TIDWMEALS SQ ; Start 05/05/18 at 12:00 ; Status Cancel Dextrose (Dextrose 50%-Water Syringe) 12.5 gm PRN Q15MIN PRN IV SEE COMMENTS; Start 05/05/18 at 11:00 Insulin Human Lispro (HumaLOG) 35 units TIDAC SQ Last administered on at 08:08; Start 05/05/18 at 11:30; Stop 05/06/18 at 10:30; Status DC Non-Formulary Medication (60) 65 unit BID SQ ; Start 05/05/18 at 21:00; Status UNV Insulin Human Lispro (HumaLOG) 0-9 UNITS TIDWMEALS SQ Last administered on 05/06at 17:33; Start 05/05/18 at 12:00 Dextrose (Dextrose 50%-Water Syringe) 12.5 gm PRN Q15MIN PRN IV SEE COMMENTS; Start 05/05/18 at 11:15; Status UNV Furosemide (Lasix) 40 mg BID92 IVP Last administered on 05/06/18at 13:35; Start 05/05/18 at 11:30; Stop 05/06/18 at 16:40; Status DC Insulin Glargine (Lantus) 60 units BID SQ Last administered on 05/05/18at 21:50 ; Start 05/05/18 at 21:00; Stop 05/06/18 at 07:25; Status DC Albuterol Sulfate (Ventolin Neb Soln) 2.5 mg PRN Q4HRS PRN NEB SHORTNESS OF BREATH; Start 05/05/18 at 11:30; Stop 05/05/18 at 14:29; Status DC Acetaminophen/ Hydrocodone Bitart (Lortab 10/325) 1 tab PRN Q6HRS PRN PO SEVERE PAIN Last administered on 05/06/18at 08:02; Start 05/05/18 at 11:45 Budesonide (Pulmicort) 0.5 mg 1X ONCE NEB Last administered on 05/05/18at 12:08 ; Start 05/05/18 at 12:00; Stop 05/05/18 at 12:01; Status DC Budesonide (Pulmicort) 0.5 mg RTBID NEB Last administered on 05/07/18at 07:55; Start 05/05/18 at 20:00 Furosemide (Lasix) 80 mg 1X ONCE IVP Last administered on 05/05/18at 13:57; Start 05/05/18 at 14:00; Stop 05/05/18 at 14:01; Status DC Albuterol/ Ipratropium (Duoneb) 3 ml RTQID NEB Last administered on 05/07/18at 11:52; Start 05/05/18 at 16:00 Albuterol Sulfate (Ventolin Neb Soln) 2.5 mg PRN Q2HR PRN NEB SHORTNESS OF BREATH Last administered on 05/06/18at 22:18; Start 05/05/18 at 14:30 Guaifenesin (Mucinex) 600 mg BID PO Last administered on 05/07/18at 09:16; Start 05/05/18 at 15:00 Info (Anti-Coagulation Monitoring By Pharmacy) 1 each PRN DAILY PRN MC SEE COMMENTS Last administered on 05/06/18at 15:48; Start 05/05/18 at 14:45 Insulin Glargine (Lantus) 65 units BID SQ Last administered on 05/07/18at 09:34 ; Start 05/06/18 at 09:00 Insulin Human Lispro (HumaLOG) 40 units TIDAC SQ Last administered on at 09:25; Start 05/06/18 at 11:30 Acetaminophen (Tylenol) 650 mg PRN Q6HRS PRN PO FEVER; Start 05/06/18 at 14:15 Ondansetron HCl (Zofran) 4 mg PRN Q6HRS PRN IV NAUSEA/VOMITING; Start 05/06/18 at 14:15 Morphine Sulfate (Morphine Sulfate) 2 mg PRN Q2HR PRN IV MODERATE TO SEVERE PAIN; Start 05/06/18 at 14:15 Tramadol HCl (Ultram) 50 mg PRN Q6HRS PRN PO MILD TO MODERATE PAIN Last administered on 05/06/18at 22:16; Start 05/06/18 at 14:15 Hydralazine HCl (Apresoline Inj) 10 mg PRN Q4HRS PRN IVP ELEVATED BP, SEE COMMENTS; Start 05/06/18 at 14:15 Docusate Sodium (Colace) 100 mg PRN DAILY PRN PO CONSTIPATION; Start 05/06/18 at 14:15 Bumetanide (Bumex) 1 mg DAILY PO Last administered on 05/07/18at 09:15; Start at 09:00 Active Scripts Active Colace (Docusate Sodium) 100 Mg Capsule 100 Mg PO BID Senna-Time S Tablet (Sennosides/Docusate Sodium) 1 Each Tablet 1 Tab PO BID Amitiza (Lubiprostone) 8 Mcg Capsule 8 Mcg PO BIDWMEALS Nitrostat (Nitroglycerin) 0.4 Mg Tab.subl 0.4 Mg SL PRN Q5MIN PRN 30 Days Reported Spironolactone 25 Mg Tablet 1 Tab PO DAILY Bumetanide 1 Mg Tablet 1 Tab PO BID92 Duloxetine Hcl 60 Mg Capsule.dr 60 Mg PO BID Trulicity (Dulaglutide) 0.75 Mg/0.5 Ml Pen.injctr 0.75 Mg SUBCUT QFR Amlodipine Besylate 5 Mg Tablet 5 Mg PO DAILY Levemir Flextouch (Insulin Detemir) 100 Unit/1 Ml Insuln.pen 65 Unit SQ BID Xanax (Alprazolam) 0.5 Mg Tablet 0.5 Mg PO PRN Q6HRS PRN Ventolin Hfa Inhaler (Albuterol Sulfate) 18 Gm Hfa.aer.ad 2 Puff INH PRN Q4HRS PRN Oxybutynin Chloride Er (Oxybutynin Chloride) 5 Mg Tab.er.24 1 Tab PO DAILY Duoneb 0.5-3(2.5) Mg/3 Ml (Albuterol/Ipratropium) 3 Ml Ampul.neb 3 Ml NEB PRN QID PRN Flonase Allergy Relief (Fluticasone Propionate) 9.9 Ml Landers.susp 2 Sprays NS PRN PRN Doxepin Hcl 50 Mg Capsule 1 Cap PO PRN QHS PRN Clonidine Hcl 0.1 Mg Tablet 1 Tab PO PRN PRN When SBP >150 Humalog (Insulin Lispro) 100 Unit/1 Ml Insuln.pen 40 Unit SQ TIDAC Eliquis (Apixaban) 5 Mg Tablet 5 Mg PO BID Metoprolol Succinate ( Xl ) (Metoprolol Succinate) 25 Mg Tab.er.24h 2 Tab PO DAILY Lyrica (Pregabalin) 150 Mg Capsule 1 Cap PO BID Atorvastatin Calcium 20 Mg Tablet 2 Tab PO HS Nexium Capsule (Esomeprazole Magnesium) 40 Mg Capsule.dr 1 Cap PO BID Aspirin 81 Mg Tab.chew 1 Tab PO DAILY Levothyroxine Sodium 50 Mcg Tablet 1 Tab PO DAILY Vitals/I & O Vital Sign - Last 24 Hours 805/06/18 05/06/18 05/06/18 12:10 15:00 17:02 18:34 Temp 97.7 97.7 Pulse 74 Resp 18 B/P (MAP) 112/52 (72) Pulse Ox 96 O2 Delivery Nasal Cannula Nasal Cannula Nasal Cannula Nasal Cannula O2 Flow Rate 3.0 2.0 3.0 3.0 05/06/18 05/06/18 05/06/18 05/06/18 18:34 19:20 19:25 22:18 Temp 97.7 97.7 Pulse 79 Resp 20 B/P (MAP) 114/63 (80) Pulse Ox 89 O2 Delivery Nasal Cannula Nasal Cannula Nasal Cannula Nasal Cannula O2 Flow Rate 3.0 2.0 2.0 3.0 05/06/18 05/07/18 05/07/18 05/07/18 23:25 02:55 07:00 07:56 Temp 98.1 97.7 97.7 98.1 97.7 97.7 Pulse 90 77 78 Resp 18 22 20 B/P (MAP) 114/63 (80) 113/57 (75) 142/72 (95) Pulse Ox 95 93 99 98 O2 Delivery Room Air Nasal Cannula Nasal Cannula Nasal Cannula O2 Flow Rate 2.5 2.5 2.0 05/07/18 05/07/18 05/07/18 05/07/18 08:00 09:17 09:17 11:53 Pulse 78 78 B/P (MAP) 142/72 142/72 O2 Delivery Nasal Cannula Nasal Cannula O2 Flow Rate 2.0 2.0 Intake and Output 05/06/18 05/06/18 05/07/18 15:00 23:00 07:00 Intake Total 300 ml 200 ml Output Total 1950 ml 750 ml Balance 300 ml -1950 ml -550 ml DASHA MORRISON K III DO May 07, 2018 12:01
[2018-05-07 15:00] VITALS: BP 134/64
--- NOTE | 2018-05-07 16:45 | DS ---
DATE OF DISCHARGE: 05/07/2018 ADMISSION DIAGNOSES: Chronic obstructive pulmonary disease and congestive heart failure and respiratory failure. DISCHARGE DIAGNOSES: Resolving chronic obstructive pulmonary disease, resolving respiratory failure, and resolving congestive heart failure. HOSPITAL COURSE: The patient is a pleasant 57-year-old female who has [id number] systolic and diastolic heart failure and COPD. She was admitted. We diuresed her. We gave her steroids, breathing treatments and oxygen. We consulted Pulmonary and Cardiology. Today, she is at her baseline. We plan to discharge. DISPOSITION: Home. ACTIVITY: As tolerated. DIET: Low sodium. MEDICATIONS: Please see the MRAD. TOTAL TIME: 38 minutes. DASHA MORRISON DO DR: FRANK/apolinar JOB#: [id number] / [id number]
[2018-05-07 19:35] VITALS: BP 126/65
--- NOTE | 2018-05-07 19:45 | PDOC ---
PROGRESS NOTES Subjective Subjective Patient feels better but is very weak and does not do much in a matter of activity. Objective Objective Vital Signs Date Time Temp Pulse Resp B/P (MAP) Pulse Ox O2 Delivery O2 Flow Rate FiO2 05/07/18 15:54 100 Nasal Cannula 2.0 05/07/18 15:00 97.6 75 20 134/64 (87) 97.6 Intake and Output 05/07/18 07:00 Intake Total 500 ml Output Total 2700 ml Balance -2200 ml Intake Oral 500 ml Output Urine Total 2700 ml Physical Exam Physical Exam Moving air better, less rales. Less edema. Assessment Assessment Acute CHF improved. I would like to have PT and OT evaluate her deconditioning and if stable I think she probably would be able to go home in the morning. I'd like to change her back to the by mouth Bumex. Comment Review of Relevant I have reviewed the following items jim (where applicable) has been applied. Labs Laboratory Tests Test 05/05/18 21:27 05/06/18 04:00 05/06/18 07:15 05/06/18 11:30 Glucose (Fingerstick) 311 mg/dL (70-99) 308 mg/dL (70-99) 346 mg/dL (70-99) White Blood Count 15.4 x10^3/uL (4.0-11.0) Red Blood Count 3.45 x10^6/uL (3.50-5.40) Hemoglobin 8.5 g/dL (12.0-15.5) Hematocrit 26.7 % (36.0-47.0) Mean Corpuscular Volume 77 fL (79-100) Mean Corpuscular Hemoglobin 25 pg (25-35) Mean Corpuscular Hemoglobin Concent 32 g/dL (31-37) Red Cell Distribution Width 17.4 % (11.5-14.5) Platelet Count 377 x10^3/uL (140-400) Neutrophils (%) (Auto) 85 % (31-73) Lymphocytes (%) (Auto) 8 % (24-48) Monocytes (%) (Auto) 8 % (0-9) Eosinophils (%) (Auto) 0 % (0-3) Basophils (%) (Auto) 0 % (0-3) Neutrophils # (Auto) 13.0 x10^3uL (1.8-7.7) Lymphocytes # (Auto) 1.2 x10^3/uL (1.0-4.8) Monocytes # (Auto) 1.2 x10^3/uL (0.0-1.1) Eosinophils # (Auto) 0.0 x10^3/uL (0.0-0.7) Basophils # (Auto) 0.0 x10^3/uL (0.0-0.2) Segmented Neutrophils % 87 % (35-66) Band Neutrophils % 2 % (0-9) Lymphocytes % 7 % (24-48) Monocytes % 4 % (0-10) Nucleated Red Blood Cells 1 Platelet Estimate Adequate (ADEQUATE) Polychromasia Present Hypochromasia Present Basophilic Stippling Present Anisocytosis Slight Sodium Level 137 mmol/L (136-145) Potassium Level 4.8 mmol/L (3.5-5.1) Chloride Level 99 mmol/L (98-107) Carbon Dioxide Level 33 mmol/L (21-32) Anion Gap 5 (6-14) Blood Urea Nitrogen 56 mg/dL (7-20) Creatinine 1.5 mg/dL (0.6-1.0) Estimated GFR (Cockcroft-Gault) 36.1 Glucose Level 350 mg/dL (70-99) Calcium Level 9.3 mg/dL (8.5-10.1) Test 05/06/18 17:23 05/06/18 20:56 05/07/18 04:35 05/07/18 07:41 Glucose (Fingerstick) 298 mg/dL (70-99) 242 mg/dL (70-99) 112 mg/dL (70-99) White Blood Count 14.8 x10^3/uL (4.0-11.0) Red Blood Count 3.68 x10^6/uL (3.50-5.40) Hemoglobin 8.9 g/dL (12.0-15.5) Hematocrit 28.6 % (36.0-47.0) Mean Corpuscular Volume 78 fL (79-100) Mean Corpuscular Hemoglobin 24 pg (25-35) Mean Corpuscular Hemoglobin Concent 31 g/dL (31-37) Red Cell Distribution Width 17.0 % (11.5-14.5) Platelet Count 428 x10^3/uL (140-400) Neutrophils (%) (Auto) 61 % (31-73) Lymphocytes (%) (Auto) 24 % (24-48) Monocytes (%) (Auto) 10 % (0-9) Eosinophils (%) (Auto) 4 % (0-3) Basophils (%) (Auto) 1 % (0-3) Neutrophils # (Auto) 9.0 x10^3uL (1.8-7.7) Lymphocytes # (Auto) 3.6 x10^3/uL (1.0-4.8) Monocytes # (Auto) 1.5 x10^3/uL (0.0-1.1) Eosinophils # (Auto) 0.6 x10^3/uL (0.0-0.7) Basophils # (Auto) 0.1 x10^3/uL (0.0-0.2) Sodium Level 141 mmol/L (136-145) Potassium Level 4.4 mmol/L (3.5-5.1) Chloride Level 101 mmol/L (98-107) Carbon Dioxide Level 38 mmol/L (21-32) Anion Gap 2 (6-14) Blood Urea Nitrogen 53 mg/dL (7-20) Creatinine 1.4 mg/dL (0.6-1.0) Estimated GFR (Cockcroft-Gault) 39.0 Glucose Level 129 mg/dL (70-99) Calcium Level 9.2 mg/dL (8.5-10.1) Test 05/07/18 11:43 05/07/18 17:06 Glucose (Fingerstick) 142 mg/dL (70-99) 118 mg/dL (70-99) Laboratory Tests Test 05/06/18 20:56 05/07/18 04:35 05/07/18 07:41 05/07/18 11:43 Glucose (Fingerstick) 242 mg/dL (70-99) 112 mg/dL (70-99) 142 mg/dL (70-99) White Blood Count 14.8 x10^3/uL (4.0-11.0) Red Blood Count 3.68 x10^6/uL (3.50-5.40) Hemoglobin 8.9 g/dL (12.0-15.5) Hematocrit 28.6 % (36.0-47.0) Mean Corpuscular Volume 78 fL (79-100) Mean Corpuscular Hemoglobin 24 pg (25-35) Mean Corpuscular Hemoglobin Concent 31 g/dL (31-37) Red Cell Distribution Width 17.0 % (11.5-14.5) Platelet Count 428 x10^3/uL (140-400) Neutrophils (%) (Auto) 61 % (31-73) Lymphocytes (%) (Auto) 24 % (24-48) Monocytes (%) (Auto) 10 % (0-9) Eosinophils (%) (Auto) 4 % (0-3) Basophils (%) (Auto) 1 % (0-3) Neutrophils # (Auto) 9.0 x10^3uL (1.8-7.7) Lymphocytes # (Auto) 3.6 x10^3/uL (1.0-4.8) Monocytes # (Auto) 1.5 x10^3/uL (0.0-1.1) Eosinophils # (Auto) 0.6 x10^3/uL (0.0-0.7) Basophils # (Auto) 0.1 x10^3/uL (0.0-0.2) Sodium Level 141 mmol/L (136-145) Potassium Level 4.4 mmol/L (3.5-5.1) Chloride Level 101 mmol/L (98-107) Carbon Dioxide Level 38 mmol/L (21-32) Anion Gap 2 (6-14) Blood Urea Nitrogen 53 mg/dL (7-20) Creatinine 1.4 mg/dL (0.6-1.0) Estimated GFR (Cockcroft-Gault) 39.0 Glucose Level 129 mg/dL (70-99) Calcium Level 9.2 mg/dL (8.5-10.1) Test 05/07/18 17:06 Glucose (Fingerstick) 118 mg/dL (70-99) Medications Current Medications Ipratropium [place] (Atrovent) 0.5 mg 1X ONCE NEB Last administered on at 00:30; Start 05/05/18 at 00:30; Stop 05/05/18 at 00:31; Status DC Methylprednisolone Sodium Succinate (SOLU-Medrol 125MG VIAL) 125 mg 1X ONCE IV Last administered on 05/05/18at 00:56; Start 05/05/18 at 00:30; Stop 05/05/18 at 00:31; Status DC Morphine Sulfate (Morphine Sulfate) 2 mg PRN Q15MIN PRN IV/SQ PAIN GREATER THAN 3/10 Last administered on 05/05/18at 00:57; Start 05/05/18 at 00:30; Stop at 00:29; Status DC Albuterol Sulfate (Ventolin Neb Soln) 5 mg 1X ONCE NEB Last administered on 08/12at 00:30; Start 05/05/18 at 00:30; Stop 05/05/18 at 00:31; Status DC Furosemide (Lasix) 60 mg 1X ONCE IVP Last administered on 05/05/18at 03:01; Start 05/05/18 at 02:15; Stop 05/05/18 at 02:16; Status DC Acetaminophen (Tylenol) 650 mg PRN Q4HRS PRN PO FEVER; Start 05/05/18 at 03:30 ; Stop 05/06/18 at 03:29; Status DC Albuterol/ Ipratropium (Duoneb) 3 ml RTQID NEB Last administered on 05/05/18at 11:34; Start 05/05/18 at 08:00; Stop 05/05/18 at 14:29; Status DC Pharmacy Consult (C.diff Med Screen By Rx) 1 each 1X ONCE [facility] ; Start 05/05/18 at 09:00; Stop 05/05/18 at 09:01; Status Cancel Lactobacillus Rhamnosus (Culturelle) 1 cap BID PO Last administered on at 09:17; Start 05/05/18 at 21:00 Alprazolam (Xanax) 0.5 mg PRN Q6HRS PRN PO ANXIETY / AGITATION Last administered on 05/05/18at 21:44; Start 05/05/18 at 11:00 Amlodipine Besylate (Norvasc) 5 mg DAILY PO Last administered on 05/07/18 09: 17; Start 05/05/18 at 11:30 Apixaban (Eliquis) 5 mg BID PO Last administered on 05/07/18 09:17; Start 08/12 at 11:30 Aspirin (Children'S Aspirin) 81 mg DAILY PO Last administered on 8/13/18at 09: 16; Start 05/05/18 at 11:30 Atorvastatin Calcium (Lipitor) 40 mg HS PO Last administered on 05/06/18at 20:58 ; Start 05/05/18 at 21:00 Bumetanide (Bumex) 1 mg BID92 PO ; Start 05/05/18 at 11:30; Status Cancel Docusate Sodium (Colace) 100 mg BID PO Last administered on 05/07/18 09:15; Start 05/05/18 at 11:30 Insulin Human Lispro (HumaLOG) 40 units TIDAC SQ ; Start 05/05/18 at 11:30; Stop 05/05/18 at 11:30; Status DC Albuterol Sulfate (Ventolin Neb Soln) 2.5 mg PRN QID PRN NEB SHORTNESS OF BREATH; Start 05/05/18 at 11:30; Stop 05/05/18 at 11:30; Status DC Lubiprostone (Amitiza) 8 mcg BIDWMEALS PO Last administered on 05/07/18at 17:48 ; Start 05/05/18 at 11:30 Metoprolol Succinate (Toprol Xl) 50 mg DAILY PO Last administered on 05/07/18 09:17; Start 05/05/18 at 11:30 Nitroglycerin (Nitrostat) 0.4 mg PRN Q5MIN PRN SL CP RATING > 1/10; Start 05/05 at 11:00 Senna/Docusate Sodium (Senna Plus) 1 tab BID PO Last administered on 05/07/18 09:16; Start 05/05/18 at 11:30 Non-Formulary Medication (Albuterol Sulfate (Ventolin Hfa Inhaler)) 2 puff PRN Q4HRS PRN INH SHORTNESS OF BREATH; Start 05/05/18 at 11:00; Status UNV Doxepin HCl (SINEquan) 50 mg PRN QHS PRN PO INSOMNIA Last administered on at 21:43; Start 05/05/18 at 21:00 Non-Formulary Medication (Dulaglutide (Trulicity)) 0.75 mg QFR SUBCUT ; Start at 16:00; Status UNV Duloxetine HCl (Cymbalta) 60 mg BID PO Last administered on 05/07/18 09:15; Start 05/05/18 at 11:30 Pantoprazole Sodium (Protonix) 40 mg BIDAC PO Last administered on 05/07/18 17 :48; Start 05/05/18 at 11:30 Fluticasone Propionate (Flonase) 2 spray PRN DAILY PRN NS ALLERGIES; Start 08/12 at 11:09 Insulin Glargine (Lantus) 65 units BID SQ ; Start 05/05/18 at 11:30; Stop at 11:30; Status DC Levothyroxine Sodium (Synthroid) 50 mcg DAILY07 PO Last administered on 06:28; Start 05/05/18 at 11:30 Oxybutynin Chloride (Ditropan) 2.5 mg BID PO Last administered on 05/07/18 09: 16; Start 05/05/18 at 11:30 Pregabalin (Lyrica) 150 mg BID PO Last administered on 05/06/18at 20:57; Start 05/05/18 at 11:30 Spironolactone (Aldactone) 25 mg DAILY PO Last administered on 05/07/18 09:16 ; Start 05/05/18 at 11:30 Insulin Human Lispro (HumaLOG) 0-9 UNITS TIDWMEALS SQ ; Start 05/05/18 at 12:00 ; Status Cancel Dextrose (Dextrose 50%-Water Syringe) 12.5 gm PRN Q15MIN PRN IV SEE COMMENTS; Start 05/05/18 at 11:00 Insulin Human Lispro (HumaLOG) 35 units TIDAC SQ Last administered on at 08:08; Start 05/05/18 at 11:30; Stop 05/06/18 at 10:30; Status DC Non-Formulary Medication (60) 65 unit BID SQ ; Start 05/05/18 at 21:00; Status UNV Insulin Human Lispro (HumaLOG) 0-9 UNITS TIDWMEALS SQ Last administered on 05/06at 17:33; Start 05/05/18 at 12:00 Dextrose (Dextrose 50%-Water Syringe) 12.5 gm PRN Q15MIN PRN IV SEE COMMENTS; Start 05/05/18 at 11:15; Status UNV Furosemide (Lasix) 40 mg BID92 IVP Last administered on 05/06/18at 13:35; Start 05/05/18 at 11:30; Stop 05/06/18 at 16:40; Status DC Insulin Glargine (Lantus) 60 units BID SQ Last administered on 05/05/18at 21:50 ; Start 05/05/18 at 21:00; Stop 05/06/18 at 07:25; Status DC Albuterol Sulfate (Ventolin Neb Soln) 2.5 mg PRN Q4HRS PRN NEB SHORTNESS OF BREATH; Start 05/05/18 at 11:30; Stop 05/05/18 at 14:29; Status DC Acetaminophen/ Hydrocodone Bitart (Lortab 10/325) 1 tab PRN Q6HRS PRN PO SEVERE PAIN Last administered on 05/06/18at 08:02; Start 05/05/18 at 11:45 Budesonide (Pulmicort) 0.5 mg 1X ONCE NEB Last administered on 05/05/18at 12:08 ; Start 05/05/18 at 12:00; Stop 05/05/18 at 12:01; Status DC Budesonide (Pulmicort) 0.5 mg RTBID NEB Last administered on 05/07/18at 07:55; Start 05/05/18 at 20:00 Furosemide (Lasix) 80 mg 1X ONCE IVP Last administered on 05/05/18at 13:57; Start 05/05/18 at 14:00; Stop 05/05/18 at 14:01; Status DC Albuterol/ Ipratropium (Duoneb) 3 ml RTQID NEB Last administered on 05/07/18at 15:52; Start 05/05/18 at 16:00 Albuterol Sulfate (Ventolin Neb Soln) 2.5 mg PRN Q2HR PRN NEB SHORTNESS OF BREATH Last administered on 05/06/18at 22:18; Start 05/05/18 at 14:30 Guaifenesin (Mucinex) 600 mg BID PO Last administered on 05/07/18at 09:16; Start 05/05/18 at 15:00 Info (Anti-Coagulation Monitoring By Pharmacy) 1 each PRN DAILY PRN MC SEE COMMENTS Last administered on 05/07/18at 11:57; Start 05/05/18 at 14:45 Insulin Glargine (Lantus) 65 units BID SQ Last administered on 05/07/18at 09:34 ; Start 05/06/18 at 09:00 Insulin Human Lispro (HumaLOG) 40 units TIDAC SQ Last administered on at 17:52; Start 05/06/18 at 11:30 Acetaminophen (Tylenol) 650 mg PRN Q6HRS PRN PO FEVER; Start 05/06/18 at 14:15 Ondansetron HCl (Zofran) 4 mg PRN Q6HRS PRN IV NAUSEA/VOMITING; Start 05/06/18 at 14:15 Morphine Sulfate (Morphine Sulfate) 2 mg PRN Q2HR PRN IV MODERATE TO SEVERE PAIN; Start 05/06/18 at 14:15 Tramadol HCl (Ultram) 50 mg PRN Q6HRS PRN PO MILD TO MODERATE PAIN Last administered on 05/06/18at 22:16; Start 05/06/18 at 14:15 Hydralazine HCl (Apresoline Inj) 10 mg PRN Q4HRS PRN IVP ELEVATED BP, SEE COMMENTS; Start 05/06/18 at 14:15 Docusate Sodium (Colace) 100 mg PRN DAILY PRN PO CONSTIPATION; Start 05/06/18 at 14:15 Bumetanide (Bumex) 1 mg DAILY PO Last administered on 05/07/18at 09:15; Start at 09:00 Active Scripts Active Colace (Docusate Sodium) 100 Mg Capsule 100 Mg PO BID Senna-Time S Tablet (Sennosides/Docusate Sodium) 1 Each Tablet 1 Tab PO BID Amitiza (Lubiprostone) 8 Mcg Capsule 8 Mcg PO BIDWMEALS Nitrostat (Nitroglycerin) 0.4 Mg Tab.subl 0.4 Mg SL PRN Q5MIN PRN 30 Days Reported Spironolactone 25 Mg Tablet 1 Tab PO DAILY Bumetanide 1 Mg Tablet 1 Tab PO BID92 Duloxetine Hcl 60 Mg Capsule.dr 60 Mg PO BID Trulicity (Dulaglutide) 0.75 Mg/0.5 Ml Pen.injctr 0.75 Mg SUBCUT QFR Amlodipine Besylate 5 Mg Tablet 5 Mg PO DAILY Levemir Flextouch (Insulin Detemir) 100 Unit/1 Ml Insuln.pen 65 Unit SQ BID Xanax (Alprazolam) 0.5 Mg Tablet 0.5 Mg PO PRN Q6HRS PRN Ventolin Hfa Inhaler (Albuterol Sulfate) 18 Gm Hfa.aer.ad 2 Puff INH PRN Q4HRS PRN Oxybutynin Chloride Er (Oxybutynin Chloride) 5 Mg Tab.er.24 1 Tab PO DAILY Duoneb 0.5-3(2.5) Mg/3 Ml (Albuterol/Ipratropium) 3 Ml Ampul.neb 3 Ml NEB PRN QID PRN Flonase Allergy Relief (Fluticasone Propionate) 9.9 Ml [place].susp 2 Sprays NS PRN PRN Doxepin Hcl 50 Mg Capsule 1 Cap PO PRN QHS PRN Clonidine Hcl 0.1 Mg Tablet 1 Tab PO PRN PRN When SBP >150 Humalog (Insulin Lispro) 100 Unit/1 Ml Insuln.pen 40 Unit SQ TIDAC Eliquis (Apixaban) 5 Mg Tablet 5 Mg PO BID Metoprolol Succinate ( Xl ) (Metoprolol Succinate) 25 Mg Tab.er.24h 2 Tab PO DAILY Lyrica (Pregabalin) 150 Mg Capsule 1 Cap PO BID Atorvastatin Calcium 20 Mg Tablet 2 Tab PO HS Nexium Capsule (Esomeprazole Magnesium) 40 Mg Capsule.dr 1 Cap PO BID Aspirin 81 Mg Tab.chew 1 Tab PO DAILY Levothyroxine Sodium 50 Mcg Tablet 1 Tab PO DAILY Vitals/I & O Vital Sign - Last 24 Hours 05/06/18 05/06/18 05/07/18 05/07/18 22:18 23:25 02:55 07:00 Temp 98.1 97.7 97.7 98.1 97.7 97.7 Pulse 90 77 78 Resp 18 22 20 B/P (MAP) 114/63 (80) 113/57 (75) 142/72 (95) Pulse Ox 95 93 99 O2 Delivery Nasal Cannula Room Air Nasal Cannula Nasal Cannula O2 Flow Rate 3.0 2.5 2.5 05/07/18 05/07/18 05/07/18 05/07/18 07:56 08:00 09:17 09:17 Pulse 78 78 B/P (MAP) 142/72 142/72 Pulse Ox 98 O2 Delivery Nasal Cannula Nasal Cannula O2 Flow Rate 2.0 2.0 05/07/18 05/07/18 05/07/18 05/07/18 11:00 11:53 15:00 15:54 Temp 97.5 97.6 97.5 97.6 Pulse 75 75 Resp 22 20 B/P (MAP) 126/72 (90) 134/64 (87) Pulse Ox 98 98 100 O2 Delivery Nasal Cannula Nasal Cannula Nasal Cannula Nasal Cannula O2 Flow Rate 2.5 2.0 2.5 2.0 Intake and Output 05/06/18 05/06/18 05/07/18 15:00 23:00 07:00 Intake Total 300 ml 200 ml Output Total 1950 ml 750 ml Balance 300 ml -1950 ml -550 ml JON WEAVER MD May 07, 2018 19:45
[2018-05-07] MEDS: ATORVASTATIN CALCIUM 40 MG TABLET. PO SCH (20:40)
[2018-05-07] MEDS: ALPRAZolam 0.5 MG TABLET PO PRN (20:43)
[2018-05-07] MEDS: DOXEPIN HCL 25 MG CAPSULE. PO PRN (20:44)
[2018-05-07] MEDS: HYDROcodone/APAP 10/325 1 TAB TABLET PO PRN (20:47)
[2018-05-07 23:00] VITALS: BP 109/52
[2018-05-08 03:00] VITALS: BP 127/73
[2018-05-08] MEDS: LEVOTHYROXINE 50 MCG TABLET PO SCH (06:12)
[2018-05-08] MEDS: PANTOPRAZOLE 40 MG TABLET.DR. PO SCH (06:12)
[2018-05-08 07:00] VITALS: BP 149/74
[2018-05-08] MEDS: IPRATRPIUM/ALBUTEROL 0.5/2.5MG 3 ML NEBU. NEB SCH ×3 (07:39→15:07)
[2018-05-08] MEDS: BUDESONIDE 0.5 MG/2 ML NEBU. NEB SCH (07:39)
[2018-05-08] MEDS: INSULIN LISPRO 300 UNITS/3 ML INSULN.PEN. SQ SCH ×4 (08:00→12:49)
[2018-05-08] MEDS: BUMETANIDE 1 MG TABLET. PO SCH (08:44)
[2018-05-08] MEDS: LUBIPROSTONE 8 MCG CAPSULE PO SCH (08:44)
[2018-05-08] MEDS: DOCUSATE SODIUM 100 MG CAPSULE. PO SCH (08:44)
[2018-05-08] MEDS: SPIRONOLACTONE 25 MG TABLET PO SCH (08:44)
[2018-05-08] MEDS: amLODIPine BESYLATE 5 MG TABLET PO SCH (08:45)
[2018-05-08] MEDS: ASPIRIN CHEWABLE 81 MG TABLET. PO SCH (08:45)
[2018-05-08] MEDS: APIXABAN 5 MG TABLET. PO SCH (08:45)
[2018-05-08] MEDS: OXYBUTYNIN CHLORIDE 5 MG TABLET PO SCH (08:45)
[2018-05-08] MEDS: METOPROLOL SUCC 24HR ER 50 MG TAB.ER.24H. PO SCH (08:46)
[2018-05-08] MEDS: SENNOSIDES/DOCUSATE 8.6/50MG TABLET. PO SCH (08:46)
[2018-05-08] MEDS: LACTOBACILLUS RHAMNOSUS GG 1 CAPSULE. PO SCH (08:46)
[2018-05-08] MEDS: DULoxetine HCL 30 MG CAPSULE.DR PO SCH (08:47)
[2018-05-08] MEDS: INSULIN GLARGINE 300 UNITS/3 ML INSULN.PEN. SQ SCH (08:52)
--- NOTE | 2018-05-08 10:15 | PDOC ---
PROGRESS NOTES Chief Complaint Chief Complaint acute on chronic resp failure with chronic diastolic chf exacerbation copd pafib h/o dvt, PE on asa, eliquis h/o CAD POST stents morbid obesity leukocytosis, SIRS dm2 on high dose insulin anemia, chronic moderate malnutrition History of Present Illness History of Present Illness Pt resting NAD in recliner Pt looks much better and is feeling "back to normal" DW RN Vitals Vitals Vital Signs Date Time Temp Pulse Resp B/P (MAP) Pulse Ox O2 Delivery O2 Flow Rate FiO2 05/08/18 08:46 75 149/74 05/08/18 08:00 Nasal Cannula 2.0 05/08/18 07:39 99 05/08/18 07:00 97.5 22 97.5 Physical Exam General: Alert, Oriented X3, Cooperative, mild distress Heart: Regular rate, Normal S1, Normal S2, Other (irregularly irregular, S1, S2 , no rubs) Lungs: Crackles (bl mild crackles), Other Abdomen: Normal bowel sounds, Soft, No tenderness, Other (mild distended.) Extremities: Other (3+ edema bilaterally, tightness. rt 3rd toe small wound with dry blood on) Labs LABS Laboratory Tests Test 05/07/18 11:43 05/07/18 17:06 05/07/18 20:55 05/08/18 08:33 Glucose (Fingerstick) 142 mg/dL (70-99) 118 mg/dL (70-99) 90 mg/dL (70-99) 82 mg/dL (70-99) Review of Systems Review of Systems Denies N/V Denies TABOR Improved SOB Assessment and Plan Assessmemt and Plan acute on chronic resp failure with chronic diastolic chf exacerbation copd pafib h/o dvt, PE on asa, eliquis h/o CAD POST stents morbid obesity leukocytosis, SIRS dm2 on high dose insulin anemia, chronic moderate malnutrition Plan: home meds breathing treatments Abx PO diuretics PT/OT Probable DC this afternoon Comment Review of Relevant I have reviewed the following items jim (where applicable) has been applied. Labs Laboratory Tests Test 05/06/18 11:30 05/06/18 17:23 05/06/18 20:56 05/07/18 04:35 Glucose (Fingerstick) 346 mg/dL (70-99) 298 mg/dL (70-99) 242 mg/dL (70-99) White Blood Count 14.8 x10^3/uL (4.0-11.0) Red Blood Count 3.68 x10^6/uL (3.50-5.40) Hemoglobin 8.9 g/dL (12.0-15.5) Hematocrit 28.6 % (36.0-47.0) Mean Corpuscular Volume 78 fL (79-100) Mean Corpuscular Hemoglobin 24 pg (25-35) Mean Corpuscular Hemoglobin Concent 31 g/dL (31-37) Red Cell Distribution Width 17.0 % (11.5-14.5) Platelet Count 428 x10^3/uL (140-400) Neutrophils (%) (Auto) 61 % (31-73) Lymphocytes (%) (Auto) 24 % (24-48) Monocytes (%) (Auto) 10 % (0-9) Eosinophils (%) (Auto) 4 % (0-3) Basophils (%) (Auto) 1 % (0-3) Neutrophils # (Auto) 9.0 x10^3uL (1.8-7.7) Lymphocytes # (Auto) 3.6 x10^3/uL (1.0-4.8) Monocytes # (Auto) 1.5 x10^3/uL (0.0-1.1) Eosinophils # (Auto) 0.6 x10^3/uL (0.0-0.7) Basophils # (Auto) 0.1 x10^3/uL (0.0-0.2) Sodium Level 141 mmol/L (136-145) Potassium Level 4.4 mmol/L (3.5-5.1) Chloride Level 101 mmol/L (98-107) Carbon Dioxide Level 38 mmol/L (21-32) Anion Gap 2 (6-14) Blood Urea Nitrogen 53 mg/dL (7-20) Creatinine 1.4 mg/dL (0.6-1.0) Estimated GFR (Cockcroft-Gault) 39.0 Glucose Level 129 mg/dL (70-99) Calcium Level 9.2 mg/dL (8.5-10.1) Test 05/07/18 07:41 05/07/18 11:43 05/07/18 17:06 05/07/18 20:55 Glucose (Fingerstick) 112 mg/dL (70-99) 142 mg/dL (70-99) 118 mg/dL (70-99) 90 mg/dL (70-99) Test 05/08/18 08:33 Glucose (Fingerstick) 82 mg/dL (70-99) Laboratory Tests Test 05/07/18 11:43 05/07/18 17:06 05/07/18 20:55 05/08/18 08:33 Glucose (Fingerstick) 142 mg/dL (70-99) 118 mg/dL (70-99) 90 mg/dL (70-99) 82 mg/dL (70-99) Medications Current Medications Ipratropium [place] (Atrovent) 0.5 mg 1X ONCE NEB Last administered on at 00:30; Start 05/05/18 at 00:30; Stop 05/05/18 at 00:31; Status DC Methylprednisolone Sodium Succinate (SOLU-Medrol 125MG VIAL) 125 mg 1X ONCE IV Last administered on 05/05/18at 00:56; Start 05/05/18 at 00:30; Stop 05/05/18 at 00:31; Status DC Morphine Sulfate (Morphine Sulfate) 2 mg PRN Q15MIN PRN IV/SQ PAIN GREATER THAN 3/10 Last administered on 05/05/18at 00:57; Start 05/05/18 at 00:30; Stop at 00:29; Status DC Albuterol Sulfate (Ventolin Neb Soln) 5 mg 1X ONCE NEB Last administered on 08/12at 00:30; Start 05/05/18 at 00:30; Stop 05/05/18 at 00:31; Status DC Furosemide (Lasix) 60 mg 1X ONCE IVP Last administered on 05/05/18at 03:01; Start 05/05/18 at 02:15; Stop 05/05/18 at 02:16; Status DC Acetaminophen (Tylenol) 650 mg PRN Q4HRS PRN PO FEVER; Start 05/05/18 at 03:30 ; Stop 05/06/18 at 03:29; Status DC Albuterol/ Ipratropium (Duoneb) 3 ml RTQID NEB Last administered on 05/05/18at 11:34; Start 05/05/18 at 08:00; Stop 05/05/18 at 14:29; Status DC Pharmacy Consult (C.diff Med Screen By Rx) 1 each 1X ONCE [facility] ; Start 05/05/18 at 09:00; Stop 05/05/18 at 09:01; Status Cancel Lactobacillus Rhamnosus (Culturelle) 1 cap BID PO Last administered on 08:46; Start 05/05/18 at 21:00 Alprazolam (Xanax) 0.5 mg PRN Q6HRS PRN PO ANXIETY / AGITATION Last administered on 05/07/18at 20:43; Start 05/05/18 at 11:00 Amlodipine Besylate (Norvasc) 5 mg DAILY PO Last administered on 05/08/18 08: 45; Start 05/05/18 at 11:30 Apixaban (Eliquis) 5 mg BID PO Last administered on 05/08/18 08:45; Start 08/12 at 11:30 Aspirin (Children'S Aspirin) 81 mg DAILY PO Last administered on 05/08/18 08: 45; Start 05/05/18 at 11:30 Atorvastatin Calcium (Lipitor) 40 mg HS PO Last administered on 05/07/18at 20:40 ; Start 05/05/18 at 21:00 Bumetanide (Bumex) 1 mg BID92 PO ; Start 05/05/18 at 11:30; Status Cancel Docusate Sodium (Colace) 100 mg BID PO Last administered on 05/08/18at 08:44; Start 05/05/18 at 11:30 Insulin Human Lispro (HumaLOG) 40 units TIDAC SQ ; Start 05/05/18 at 11:30; Stop 05/05/18 at 11:30; Status DC Albuterol Sulfate (Ventolin Neb Soln) 2.5 mg PRN QID PRN NEB SHORTNESS OF BREATH; Start 05/05/18 at 11:30; Stop 05/05/18 at 11:30; Status DC Lubiprostone (Amitiza) 8 mcg BIDWMEALS PO Last administered on 05/08/18at 08:44 ; Start 05/05/18 at 11:30 Metoprolol Succinate (Toprol Xl) 50 mg DAILY PO Last administered on 05/08/18at 08:46; Start 05/05/18 at 11:30 Nitroglycerin (Nitrostat) 0.4 mg PRN Q5MIN PRN SL CP RATING > 1/10; Start 05/05 at 11:00 Senna/Docusate Sodium (Senna Plus) 1 tab BID PO Last administered on 05/08/18 08:46; Start 05/05/18 at 11:30 Non-Formulary Medication (Albuterol Sulfate (Ventolin Hfa Inhaler)) 2 puff PRN Q4HRS PRN INH SHORTNESS OF BREATH; Start 05/05/18 at 11:00; Status UNV Doxepin HCl (SINEquan) 50 mg PRN QHS PRN PO INSOMNIA Last administered on 20:44; Start 05/05/18 at 21:00 Non-Formulary Medication (Dulaglutide (Trulicity)) 0.75 mg QFR SUBCUT ; Start at 16:00; Status UNV Duloxetine HCl (Cymbalta) 60 mg BID PO Last administered on 05/08/18at 08:47; Start 05/05/18 at 11:30 Pantoprazole Sodium (Protonix) 40 mg BIDAC PO Last administered on 05/08/18 06 :12; Start 05/05/18 at 11:30 Fluticasone Propionate (Flonase) 2 spray PRN DAILY PRN NS ALLERGIES; Start 08/12 at 11:09 Insulin Glargine (Lantus) 65 units BID SQ ; Start 05/05/18 at 11:30; Stop at 11:30; Status DC Levothyroxine Sodium (Synthroid) 50 mcg DAILY07 PO Last administered on 06:12; Start 05/05/18 at 11:30 Oxybutynin Chloride (Ditropan) 2.5 mg BID PO Last administered on 05/08/18 08: 45; Start 05/05/18 at 11:30 Pregabalin (Lyrica) 150 mg BID PO Last administered on 05/07/18 20:42; Start 05/05/18 at 11:30 Spironolactone (Aldactone) 25 mg DAILY PO Last administered on 05/08/18at 08:44 ; Start 05/05/18 at 11:30 Insulin Human Lispro (HumaLOG) 0-9 UNITS TIDWMEALS SQ ; Start 05/05/18 at 12:00 ; Status Cancel Dextrose (Dextrose 50%-Water Syringe) 12.5 gm PRN Q15MIN PRN IV SEE COMMENTS; Start 05/05/18 at 11:00 Insulin Human Lispro (HumaLOG) 35 units TIDAC SQ Last administered on at 08:08; Start 05/05/18 at 11:30; Stop 05/06/18 at 10:30; Status DC Non-Formulary Medication (60) 65 unit BID SQ ; Start 05/05/18 at 21:00; Status UNV Insulin Human Lispro (HumaLOG) 0-9 UNITS TIDWMEALS SQ Last administered on 05/06at 17:33; Start 05/05/18 at 12:00 Dextrose (Dextrose 50%-Water Syringe) 12.5 gm PRN Q15MIN PRN IV SEE COMMENTS; Start 05/05/18 at 11:15; Status UNV Furosemide (Lasix) 40 mg BID92 IVP Last administered on 05/06/18at 13:35; Start 05/05/18 at 11:30; Stop 05/06/18 at 16:40; Status DC Insulin Glargine (Lantus) 60 units BID SQ Last administered on 05/05/18at 21:50 ; Start 05/05/18 at 21:00; Stop 05/06/18 at 07:25; Status DC Albuterol Sulfate (Ventolin Neb Soln) 2.5 mg PRN Q4HRS PRN NEB SHORTNESS OF BREATH; Start 05/05/18 at 11:30; Stop 05/05/18 at 14:29; Status DC Acetaminophen/ Hydrocodone Bitart (Lortab 10/325) 1 tab PRN Q6HRS PRN PO SEVERE PAIN Last administered on 05/07/18at 20:47; Start 05/05/18 at 11:45 Budesonide (Pulmicort) 0.5 mg 1X ONCE NEB Last administered on 05/05/18at 12:08 ; Start 05/05/18 at 12:00; Stop 05/05/18 at 12:01; Status DC Budesonide (Pulmicort) 0.5 mg RTBID NEB Last administered on 05/08/18at 07:39; Start 05/05/18 at 20:00 Furosemide (Lasix) 80 mg 1X ONCE IVP Last administered on 05/05/18at 13:57; Start 05/05/18 at 14:00; Stop 05/05/18 at 14:01; Status DC Albuterol/ Ipratropium (Duoneb) 3 ml RTQID NEB Last administered on 05/08/18at 07:39; Start 05/05/18 at 16:00 Albuterol Sulfate (Ventolin Neb Soln) 2.5 mg PRN Q2HR PRN NEB SHORTNESS OF BREATH Last administered on 05/06/18at 22:18; Start 05/05/18 at 14:30 Guaifenesin (Mucinex) 600 mg BID PO Last administered on 05/08/18at 08:44; Start 05/05/18 at 15:00 Info (Anti-Coagulation Monitoring By Pharmacy) 1 each PRN DAILY PRN MC SEE COMMENTS Last administered on 05/07/18at 11:57; Start 05/05/18 at 14:45 Insulin Glargine (Lantus) 65 units BID SQ Last administered on 05/08/18at 08:52 ; Start 05/06/18 at 09:00 Insulin Human Lispro (HumaLOG) 40 units TIDAC SQ Last administered on at 08:51; Start 05/06/18 at 11:30 Acetaminophen (Tylenol) 650 mg PRN Q6HRS PRN PO FEVER; Start 05/06/18 at 14:15 Ondansetron HCl (Zofran) 4 mg PRN Q6HRS PRN IV NAUSEA/VOMITING; Start 05/06/18 at 14:15 Morphine Sulfate (Morphine Sulfate) 2 mg PRN Q2HR PRN IV MODERATE TO SEVERE PAIN; Start 05/06/18 at 14:15 Tramadol HCl (Ultram) 50 mg PRN Q6HRS PRN PO MILD TO MODERATE PAIN Last administered on 05/06/18at 22:16; Start 05/06/18 at 14:15 Hydralazine HCl (Apresoline Inj) 10 mg PRN Q4HRS PRN IVP ELEVATED BP, SEE COMMENTS; Start 05/06/18 at 14:15 Docusate Sodium (Colace) 100 mg PRN DAILY PRN PO CONSTIPATION; Start 05/06/18 at 14:15 Bumetanide (Bumex) 1 mg DAILY PO Last administered on 05/08/18at 08:44; Start at 09:00 Active Scripts Active Colace (Docusate Sodium) 100 Mg Capsule 100 Mg PO BID Senna-Time S Tablet (Sennosides/Docusate Sodium) 1 Each Tablet 1 Tab PO BID Amitiza (Lubiprostone) 8 Mcg Capsule 8 Mcg PO BIDWMEALS Nitrostat (Nitroglycerin) 0.4 Mg Tab.subl 0.4 Mg SL PRN Q5MIN PRN 30 Days Reported Spironolactone 25 Mg Tablet 1 Tab PO DAILY Bumetanide 1 Mg Tablet 1 Tab PO BID92 Duloxetine Hcl 60 Mg Capsule.dr 60 Mg PO BID Trulicity (Dulaglutide) 0.75 Mg/0.5 Ml Pen.injctr 0.75 Mg SUBCUT QFR Amlodipine Besylate 5 Mg Tablet 5 Mg PO DAILY Levemir Flextouch (Insulin Detemir) 100 Unit/1 Ml Insuln.pen 65 Unit SQ BID Xanax (Alprazolam) 0.5 Mg Tablet 0.5 Mg PO PRN Q6HRS PRN Ventolin Hfa Inhaler (Albuterol Sulfate) 18 Gm Hfa.aer.ad 2 Puff INH PRN Q4HRS PRN Oxybutynin Chloride Er (Oxybutynin Chloride) 5 Mg Tab.er.24 1 Tab PO DAILY Duoneb 0.5-3(2.5) Mg/3 Ml (Albuterol/Ipratropium) 3 Ml Ampul.neb 3 Ml NEB PRN QID PRN Flonase Allergy Relief (Fluticasone Propionate) 9.9 Ml [place].susp 2 Sprays NS PRN PRN Doxepin Hcl 50 Mg Capsule 1 Cap PO PRN QHS PRN Clonidine Hcl 0.1 Mg Tablet 1 Tab PO PRN PRN When SBP >150 Humalog (Insulin Lispro) 100 Unit/1 Ml Insuln.pen 40 Unit SQ TIDAC Eliquis (Apixaban) 5 Mg Tablet 5 Mg PO BID Metoprolol Succinate ( Xl ) (Metoprolol Succinate) 25 Mg Tab.er.24h 2 Tab PO DAILY Lyrica (Pregabalin) 150 Mg Capsule 1 Cap PO BID Atorvastatin Calcium 20 Mg Tablet 2 Tab PO HS Nexium Capsule (Esomeprazole Magnesium) 40 Mg Capsule.dr 1 Cap PO BID Aspirin 81 Mg Tab.chew 1 Tab PO DAILY Levothyroxine Sodium 50 Mcg Tablet 1 Tab PO DAILY Vitals/I & O Vital Sign - Last 24 Hours 05/07/18 05/07/18 05/07/18 05/07/18 11:00 11:53 15:00 15:54 Temp 97.5 97.6 97.5 97.6 Pulse 75 75 Resp 22 20 B/P (MAP) 126/72 (90) 134/64 (87) Pulse Ox 98 98 100 O2 Delivery Nasal Cannula Nasal Cannula Nasal Cannula Nasal Cannula O2 Flow Rate 2.5 2.0 2.5 2.0 05/07/18 05/07/18 05/07/18 05/07/18 19:35 20:00 20:13 20:47 Temp 97.9 97.9 Pulse 70 Resp 20 16 B/P (MAP) 126/65 (85) Pulse Ox 97 O2 Delivery Nasal Cannula Nasal Cannula Nasal Cannula Nasal Cannula O2 Flow Rate 2.5 2.0 2.0 2.0 05/07/18 05/07/18 05/08/18 05/08/18 21:47 23:00 03:00 07:00 Temp 97.6 97.5 97.5 97.6 97.5 97.5 Pulse 67 73 75 Resp 14 20 20 22 B/P (MAP) 109/52 (71) 127/73 (91) 149/74 (99) Pulse Ox 97 98 98 96 O2 Delivery Nasal Cannula Nasal Cannula Nasal Cannula Room Air O2 Flow Rate 2.0 2.5 2.5 05/08/18 05/08/18 05/08/18 05/08/18 07:39 08:00 08:45 08:46 Pulse 75 75 B/P (MAP) 149/74 149/74 Pulse Ox 99 O2 Delivery Nasal Cannula Nasal Cannula O2 Flow Rate 2.0 2.0 Intake and Output 05/07/18 05/07/18 05/08/18 15:00 23:00 07:00 Intake Total 500 ml 1380 ml Output Total 1350 ml 400 ml 3100 ml Balance -1350 ml 100 ml -1720 ml DASHA MORRISON III DO May 08, 2018 10:15
[2018-05-08] MEDS: PREGABALIN 75 MG CAPSULE PO SCH (10:31)
[2018-05-08 11:00] VITALS: BP 126/61
[2018-05-08 15:00] VITALS: BP 122/58
[2018-05-08] MEDS: ANTI-COAG MONITOR BY PHARMACY. MC PRN (15:58)
[2018-05-11] MEDS ORDERED: NON FORMULARY ITEM (Dulaglutide (Trulicity) 0.75 MG) SUBCUT SCH (16:00)
== END 2018-05-08 16:45 | disposition home health service (06) | DRG 291 ==
LOC: ER 00:10 → 2 SOUTH 03:17
PROVIDERS: ADMIT Internal Medicine; ATTEND Internal Medicine
DX: I11.0 Hypertensive heart disease with heart failure (principal); J96.20 Acute and chronic respiratory failure, unspecified whether with hypoxia or hypercapnia; J44.1 Chronic obstructive pulmonary disease with (acute) exacerbation; Z68.43 Body mass index [BMI] 50.0-59.9, adult; E44.0 Moderate protein-calorie malnutrition; R65.10 Systemic inflammatory response syndrome (SIRS) of non-infectious origin without acute organ dysfunction; I50.43 Acute on chronic combined systolic (congestive) and diastolic (congestive) heart failure; I48.91 Unspecified atrial fibrillation; E78.5 Hyperlipidemia, unspecified; I25.10 Atherosclerotic heart disease of native coronary artery without angina pectoris; E11.42 Type 2 diabetes mellitus with diabetic polyneuropathy; F32.9 Major depressive disorder, single episode, unspecified; M10.9 Gout, unspecified; E66.01 Morbid (severe) obesity due to excess calories; D64.9 Anemia, unspecified; D72.829 Elevated white blood cell count, unspecified; I25.2 Old myocardial infarction; Z95.5 Presence of coronary angioplasty implant and graft; Z90.710 Acquired absence of both cervix and uterus; Z86.718 Personal history of other venous thrombosis and embolism; Z86.711 Personal history of pulmonary embolism; Z79.01 Long term (current) use of anticoagulants; Z86.73 Personal history of transient ischemic attack (TIA), and cerebral infarction without residual deficits; Z90.49 Acquired absence of other specified parts of digestive tract; Z83.3 Family history of diabetes mellitus; Z82.49 Family history of ischemic heart disease and other diseases of the circulatory system
CPT/HCPCS: 36415; 71045; 80048; 80053; 82805; 82962; 83880; 84484; 85007; 85025; 93005; 94640; 94760; 96372; 96374; 96375; J1815; J1940; J2270; J2930; J7613; J7620; J7626; J7644; 97116; 99285-25

== ENCOUNTER → 2018-08-14 | Outpatient (CLI) | payer OTHER, MEDICARE ==
[~2018-08-14] MED LIST changes: -AMLO5TAB2 PO; +AMLO5TAB7 PO; -METF10003 PO; +METF10007 PO
== END | disposition home or self-care (01) ==
LOC: PMGWOUND 08:43
PROVIDERS: ATTEND Emergency Medicine Undersea and Hyperbaric Medicine
DX: E11.622 Type 2 diabetes mellitus with other skin ulcer (principal); L97.211 Non-pressure chronic ulcer of right calf limited to breakdown of skin; L97.221 Non-pressure chronic ulcer of left calf limited to breakdown of skin; L89.219 Pressure ulcer of right hip, unspecified stage; S30.811A Abrasion of abdominal wall, initial encounter; E11.51 Type 2 diabetes mellitus with diabetic peripheral angiopathy without gangrene; E11.42 Type 2 diabetes mellitus with diabetic polyneuropathy; I13.0 Hypertensive heart and chronic kidney disease with heart failure and stage 1 through stage 4 chronic kidney disease, or unspecified chronic kidney disease; E11.22 Type 2 diabetes mellitus with diabetic chronic kidney disease; N18.3 Chronic kidney disease, stage 3 (moderate); I50.43 Acute on chronic combined systolic (congestive) and diastolic (congestive) heart failure; G89.29 Other chronic pain; E78.5 Hyperlipidemia, unspecified; I87.2 Venous insufficiency (chronic) (peripheral); I48.91 Unspecified atrial fibrillation; J44.9 Chronic obstructive pulmonary disease, unspecified; G47.30 Sleep apnea, unspecified; F32.9 Major depressive disorder, single episode, unspecified; M19.90 Unspecified osteoarthritis, unspecified site; M10.9 Gout, unspecified; E03.9 Hypothyroidism, unspecified; I25.2 Old myocardial infarction; K21.9 Gastro-esophageal reflux disease without esophagitis; I25.10 Atherosclerotic heart disease of native coronary artery without angina pectoris; Z86.718 Personal history of other venous thrombosis and embolism; Z86.73 Personal history of transient ischemic attack (TIA), and cerebral infarction without residual deficits; E66.01 Morbid (severe) obesity due to excess calories; Z68.42 Body mass index [BMI] 45.0-49.9, adult; Z79.4 Long term (current) use of insulin; Z87.891 Personal history of nicotine dependence; Z90.710 Acquired absence of both cervix and uterus; Z90.49 Acquired absence of other specified parts of digestive tract; X58.XXXA Exposure to other specified factors, initial encounter; Y93.89 Activity, other specified; Y92.89 Other specified places as the place of occurrence of the external cause; Y99.8 Other external cause status
CPT/HCPCS: 99214; G0463

== ENCOUNTER → 2018-08-28 | Outpatient (CLI) | payer OTHER, MEDICARE ==
[~2018-08-28] MED LIST changes: -HYDR-2766 PO; +HYDR-2769 PO
== END | disposition home or self-care (01) ==
LOC: PMGWOUND 09:00
PROVIDERS: ATTEND Emergency Medicine Undersea and Hyperbaric Medicine
DX: S30.811D Abrasion of abdominal wall, subsequent encounter (principal); I13.0 Hypertensive heart and chronic kidney disease with heart failure and stage 1 through stage 4 chronic kidney disease, or unspecified chronic kidney disease; E11.22 Type 2 diabetes mellitus with diabetic chronic kidney disease; N18.3 Chronic kidney disease, stage 3 (moderate); I50.43 Acute on chronic combined systolic (congestive) and diastolic (congestive) heart failure; E11.42 Type 2 diabetes mellitus with diabetic polyneuropathy; E11.51 Type 2 diabetes mellitus with diabetic peripheral angiopathy without gangrene; G89.29 Other chronic pain; I87.2 Venous insufficiency (chronic) (peripheral); F32.9 Major depressive disorder, single episode, unspecified; I25.2 Old myocardial infarction; I48.91 Unspecified atrial fibrillation; J44.9 Chronic obstructive pulmonary disease, unspecified; G47.30 Sleep apnea, unspecified; M19.90 Unspecified osteoarthritis, unspecified site; M10.9 Gout, unspecified; E03.9 Hypothyroidism, unspecified; K21.9 Gastro-esophageal reflux disease without esophagitis; I25.10 Atherosclerotic heart disease of native coronary artery without angina pectoris; Z79.4 Long term (current) use of insulin; Z68.42 Body mass index [BMI] 45.0-49.9, adult; Z86.711 Personal history of pulmonary embolism; Z87.891 Personal history of nicotine dependence; Z90.710 Acquired absence of both cervix and uterus; Z90.49 Acquired absence of other specified parts of digestive tract; Z86.718 Personal history of other venous thrombosis and embolism; Z86.73 Personal history of transient ischemic attack (TIA), and cerebral infarction without residual deficits; X58.XXXD Exposure to other specified factors, subsequent encounter
CPT/HCPCS: 99214; G0463

== ENCOUNTER → 2018-10-02 | Outpatient (CLI) | payer OTHER, MEDICARE ==
[2018-09-02 14:38] VITALS: BP 132/72
[~2018-10-02] MED LIST changes: +CIPR500T94 PO; +NYST60PO TP
== END | disposition home or self-care (01) ==
LOC: PMGWOUND 09:37
PROVIDERS: ATTEND Emergency Medicine Undersea and Hyperbaric Medicine
DX: E11.622 Type 2 diabetes mellitus with other skin ulcer (principal); L89.213 Pressure ulcer of right hip, stage 3; L98.491 Non-pressure chronic ulcer of skin of other sites limited to breakdown of skin; I13.0 Hypertensive heart and chronic kidney disease with heart failure and stage 1 through stage 4 chronic kidney disease, or unspecified chronic kidney disease; E11.22 Type 2 diabetes mellitus with diabetic chronic kidney disease; N18.3 Chronic kidney disease, stage 3 (moderate); I50.43 Acute on chronic combined systolic (congestive) and diastolic (congestive) heart failure; E11.42 Type 2 diabetes mellitus with diabetic polyneuropathy; E11.51 Type 2 diabetes mellitus with diabetic peripheral angiopathy without gangrene; I48.91 Unspecified atrial fibrillation; J44.9 Chronic obstructive pulmonary disease, unspecified; M19.90 Unspecified osteoarthritis, unspecified site; M10.9 Gout, unspecified; E03.9 Hypothyroidism, unspecified; F32.9 Major depressive disorder, single episode, unspecified; I25.10 Atherosclerotic heart disease of native coronary artery without angina pectoris; I25.2 Old myocardial infarction; E78.5 Hyperlipidemia, unspecified; F39 Unspecified mood [affective] disorder; K21.9 Gastro-esophageal reflux disease without esophagitis; G89.29 Other chronic pain; E66.01 Morbid (severe) obesity due to excess calories; G47.30 Sleep apnea, unspecified; Z79.4 Long term (current) use of insulin; Z87.891 Personal history of nicotine dependence; Z86.711 Personal history of pulmonary embolism; Z68.42 Body mass index [BMI] 45.0-49.9, adult; Z90.49 Acquired absence of other specified parts of digestive tract; Z86.718 Personal history of other venous thrombosis and embolism; Z90.710 Acquired absence of both cervix and uterus; Z86.73 Personal history of transient ischemic attack (TIA), and cerebral infarction without residual deficits
CPT/HCPCS: 99214; G0463

== ENCOUNTER 2018-10-23 12:49 | Emergency (ER) | payer OTHER, MEDICARE ==
[~2018-10-23] VITALS: Ht 152.4 cm; Wt 113.4 kg
[~2018-10-23 12:49] MED LIST changes: +HYDR-3135 PO; +TIZA4TAB PO
--- NOTE | 2018-10-23 14:28 | PHYS DOC ---
Past Medical History Past Medical History: A-Fib, CAD, CHF, COPD, Diabetes-Type II, TX, Renal Failure Additional Past Medical Histor: 7 stents, 3 heart attacks Past Surgical History: Angioplasty, Hysterectomy, Lumbar Laminectomy Additional Past Surgical Histo: thoracotomy, 2 exlporatory surgeries, lumpectomy right breast, Additional Information: nonsmoker Alcohol Use: None Drug Use: None Adult General Chief Complaint Chief Complaint: NAUSEA/VOMITING/DIARRHA HPI HPI Patient is a 58 YO F that is presenting with nausea and vomiting over the past day. She has a past medical history of atrial fibrillation, CAD, CHF, COPD, DMII , multiple TX, and chronic renal failure. She was discharged from the hospital for COPD exacerbation a week ago. She reports that she was playing with her grandson earlier this week and he is experiencing similar symptoms but she thought she should come in because of her past problems. She denies fever, chills, chest pain, and SOB. She says that she hasn't been able to take her medication today and that she is having difficulty keeping water down, her LE swelling has not changed but she has not been urinating as much as usual. Patient denies trauma. Review of Systems Review of Systems Constitutional: Denies fever or chills [] Eyes: Denies change in visual acuity, redness, or eye pain [] HENT: Denies nasal congestion or sore throat [] Respiratory: Reports cough and shortness of breath [] Cardiovascular: Denies chest pain or palpitations [] GI: Denies abdominal pain, constipation, and diarrhea, reports nausea and vomiting [] : Denies dysuria or hematuria [] Musculoskeletal: Denies back pain or joint pain [] Integument: Denies rash or skin lesions [] Neurologic: Denies headache, focal weakness or sensory changes [] Complete systems were reviewed and found to be within normal limits, except as documented in this note. Current Medications Current Medications Current Medications Medications (Trade) Dose Ordered Sig/[facility] Start Time Stop Time Status Last Admin Dose Admin Fentanyl Citrate (Fentanyl 2ml Vial) 75 mcg 1X ONCE 10/23/18 16:00 10/23/18 16:01 DC 10/23/18 16:06 75 MCG Metoclopramide HCl (Reglan Vial) 10 mg 1X ONCE 10/23/18 15:00 10/23/18 15:01 DC 10/23/18 14:57 10 MG Ondansetron HCl (Zofran) 4 mg 1X ONCE 10/23/18 16:00 10/23/18 16:01 DC 10/23/18 16:02 4 MG Sodium Chloride 1,000 ml @ 1,000 mls/hr 1X ONCE 10/23/18 14:45 10/23/18 15:44 DC 10/23/18 14:56 1,000 MLS/HR Allergies Allergies Allergies Coded Allergies Type Severity Reaction Last Updated Verified No Known Drug Allergies 12/23/16 No Physical Exam Physical Exam Constitutional: Well developed, well nourished, no acute distress, non-toxic appearance. [] HENT: Normocephalic, atraumatic, nose normal. [] Eyes: Conjunctiva normal, no discharge. [] Neck: Normal range of motion, no tenderness. [] Cardiovascular: Heart rate regular rhythm, no murmur [] Lungs & Thorax: Bilateral breath sounds clear to auscultation [] Abdomen: Soft, mild generalized tenderness. [] Skin: Warm, dry, no erythema, no rash. [] Back: Tenderness to palpation in the lower back, chronic injury. [] Extremities: No tenderness, 2+ pitting edema of the B/L LE. [] Neurologic: Alert and oriented X 3, no focal deficits noted. [] Psychologic: Affect normal, judgement normal, mood normal. [] Current Patient Data Vital Signs Vital Signs Date Time Temp Pulse Resp B/P (MAP) Pulse Ox O2 Delivery O2 Flow Rate FiO2 10/23/18 16:06 21 96 Room Air 10/23/18 13:20 97.9 87 177/86 (116) 97.9 Lab Values Laboratory Tests Test 10/23/18 14:07 White Blood Count 10.0 x10^3/uL (4.0-11.0) Red Blood Count 4.56 x10^6/uL (3.50-5.40) Hemoglobin 11.0 g/dL (12.0-15.5) L Hematocrit 35.0 % (36.0-47.0) L Mean Corpuscular Volume 77 fL (79-100) L Mean Corpuscular Hemoglobin 24 pg (25-35) L Mean Corpuscular Hemoglobin Concent 32 g/dL (31-37) Red Cell Distribution Width 16.7 % (11.5-14.5) H Platelet Count 366 x10^3/uL (140-400) Neutrophils (%) (Auto) 64 % (31-73) Lymphocytes (%) (Auto) 24 % (24-48) Monocytes (%) (Auto) 7 % (0-9) Eosinophils (%) (Auto) 4 % (0-3) H Basophils (%) (Auto) 1 % (0-3) Neutrophils # (Auto) 6.4 x10^3uL (1.8-7.7) Lymphocytes # (Auto) 2.4 x10^3/uL (1.0-4.8) Monocytes # (Auto) 0.7 x10^3/uL (0.0-1.1) Eosinophils # (Auto) 0.4 x10^3/uL (0.0-0.7) Basophils # (Auto) 0.1 x10^3/uL (0.0-0.2) Sodium Level 142 mmol/L (136-145) Potassium Level 4.3 mmol/L (3.5-5.1) Chloride Level 100 mmol/L (98-107) Carbon Dioxide Level 31 mmol/L (21-32) Anion Gap 11 (6-14) Blood Urea Nitrogen 32 mg/dL (7-20) H Creatinine 1.3 mg/dL (0.6-1.0) H Estimated GFR (Cockcroft-Gault) 42.4 BUN/Creatinine Ratio 25 (6-20) H Glucose Level 295 mg/dL (70-99) H Calcium Level 10.1 mg/dL (8.5-10.1) Magnesium Level 1.9 mg/dL (1.8-2.4) Total Bilirubin 0.4 mg/dL (0.2-1.0) Aspartate Amino Transferase (AST) 16 U/L (15-37) Alanine Aminotransferase (ALT) 29 U/L (14-59) Alkaline Phosphatase 240 U/L (46-116) H GP-Bim-Y-Type Natriuretic Peptide 495 pg/mL (0-124) H Total Protein 8.4 g/dL (6.4-8.2) H Albumin 3.3 g/dL (3.4-5.0) L Albumin/Globulin Ratio 0.6 (1.0-1.7) L Lipase 130 U/L (73-393) Laboratory Tests 10/23/18 14:07 Laboratory Tests 10/23/18 14:07 EKG EKG [] Radiology/Procedures Radiology/Procedures [] Course & Med Decision Making Course & Med Decision Making Pertinent Labs reviewed. (See chart for details) Patient is a 58 YO F that is presenting with a one day history of nausea and vomiting. She was discharged from the hospital one week ago for COPD exacerbation. She reports sick contact with a grandson that has viral gastroenteritis symptoms. She states that she was not able to take her medications this morning because of vomiting. Labs obtained and posted to chart. Pain and nausea addressed. Creatinine was 1.3, down from 1.8 seven days ago. Nausea improved after IV dose of Zofran and the patient feels well enough to go home. Patient stable for discharge with outpatient follow-up with PCP. Discussed findings and plan with patient and family, who acknowledge understanding and agreement. Dragon Disclaimer Dragon Disclaimer This electronic medical record was generated, in whole or in part, using a voice recognition dictation system. Departure Departure Impression: Primary Impression: Nausea & vomiting Disposition: 01 HOME, SELF-CARE Condition: STABLE Referrals: JOSE BLAKELY MD (PCP) Patient Instructions: Nausea and Vomiting, [id number] Scripts Ondansetron (ONDANSETRON ODT) 4 Mg Tab.rapdis 1 TAB PO PRN Q6-8HRS, #16 TAB Prov: SERGIO ZARCO DO 10/23/18 Problem Qualifiers Primary Impression: Nausea & vomiting Vomiting type: unspecified Vomiting Intractability: non-intractable Qualified Codes: R11.2 - Nausea with vomiting, unspecified SERGIO ZARCO DO Oct 23, 2018 14:27
[2018-10-23 14:30] LABS: BASO # 0.1 x10^3/uL (0.0-0.2); BASO % 1 % (0-3); EOS # 0.4 x10^3/uL (0.0-0.7); EOS % 4 % (0-3); LYMPH # 2.4 x10^3/uL (1.0-4.8); LYMPH % 24 % (24-48); MEAN CORPUSCULAR HEMOGLOBIN 24 pg (25-35); MEAN CORPUSCULAR HGB CONC 32 g/dL (31-37); MEAN CORPUSCULAR VOLUME 77 fL (79-100); MONO # 0.7 x10^3/uL (0.0-1.1); MONO % 7 % (0-9); NEUT # 6.4 x10^3uL (1.8-7.7); NEUT % 64 % (31-73); PLATELET COUNT 366 x10^3/uL (140-400); RED BLOOD COUNT 4.56 x10^6/uL (3.50-5.40); RED CELL DISTRIBUTION WIDTH 16.7 % (11.5-14.5)
[2018-10-23] MEDS ORDERED: IV NORMAL SALINE 1000ML BAG 1,000 ML IV ONE (14:45)
[2018-10-23 14:52] LABS: CALCIUM 10.1 mg/dL (8.5-10.1); CREATININE 1.3 mg/dL (0.6-1.0); GFR 42.4; POTASSIUM 4.3 mmol/L (3.5-5.1)
[2018-10-23 14:57] LABS: ALBUMIN 3.3 g/dL (3.4-5.0); ALBUMIN/GLOBULIN RATIO 0.6 (1.0-1.7); MAGNESIUM 1.9 mg/dL (1.8-2.4); TOTAL BILIRUBIN 0.4 mg/dL (0.2-1.0); TOTAL PROTEIN 8.4 g/dL (6.4-8.2)
[2018-10-23] MEDS ORDERED: METOCLOPRAMIDE HCL 10 MG/2 ML VIAL. IV ONE (15:00)
[2018-10-23] MEDS ORDERED: ONDANSETRON PF 4 MG/2 ML VIAL. IV ONE (16:00)
[2018-10-23] MEDS ORDERED: fentaNYL PF VIAL 100 MCG/2 ML VIAL IV ONE (16:00)
[2018-10-23] MEDS ORDERED: ONDA4TAB12 PO (16:24)
[2018-10-23 16:33] VITALS: BP 155/73
== END 2018-10-23 17:05 | disposition home or self-care (01) ==
LOC: ER 12:49
DX: R11.2 Nausea with vomiting, unspecified (principal); I48.91 Unspecified atrial fibrillation; J44.9 Chronic obstructive pulmonary disease, unspecified; I25.10 Atherosclerotic heart disease of native coronary artery without angina pectoris; I25.2 Old myocardial infarction; E11.22 Type 2 diabetes mellitus with diabetic chronic kidney disease; N18.9 Chronic kidney disease, unspecified; Z95.5 Presence of coronary angioplasty implant and graft; Z90.710 Acquired absence of both cervix and uterus
CPT/HCPCS: 36415; 80053; 83690; 83735; 83880; 85025; 96361; 96374; 96375; 99283; J2405; J2765; J3010; J7030

== ENCOUNTER 2018-12-09 23:42 | Inpatient (IN) | payer OTHER, MEDICARE ==
[~2018-12-09] VITALS: Ht 152.4 cm; Wt 112.3 kg
[~2018-12-09 23:42] MED LIST changes: +AMLO5TAB10 PO; -AMLO5TAB7 PO; -BUME1TAB PO; +BUME1TAB3 PO; +ONDA4TAB12 PO
[2018-12-10] MEDS ORDERED: MORPHINE SULFATE 2 MG/ML VIAL. IV/SQ PRN
--- NOTE | 2018-12-10 | PHYS DOC ---
Past Medical History Past Medical History: A-Fib, CAD, CHF, COPD, Diabetes-Type II, [place], Renal Failure Additional Past Medical Histor: 7 stents, 3 heart attacks Past Surgical History: Angioplasty, Hysterectomy, Lumbar Laminectomy Additional Past Surgical Histo: thoracotomy, 2 exlporatory surgeries, lumpectomy right breast, Alcohol Use: None Drug Use: None Adult General Chief Complaint Chief Complaint: chest pain HPI HPI Patient is a 58-year-old female who presents with complaint of chest pain for last 2 days. Patient states that the pain has been waxing and waning and states that at its worse it was about a 7 out of 10 and currently at a 5 out of 10. She states that she has had some dizziness associated with chest pain. She describes the pain as being a lot of pressure on her chest. Patient does have strong cardiac history stating that she has had 3 MIs in the past and has had 6 stents. Patient states that pain is worsened with exertion. She states that nothing improves her pain. Review of Systems Review of Systems Constitutional: Denies fever or chills [] Respiratory: Denies cough or shortness of breath [] Cardiovascular: No additional information not addressed in HPI [] GI: Denies abdominal pain, nausea, vomiting or diarrhea [] Integument: Denies rash or skin lesions [] Neurologic: Denies headache, focal weakness or sensory changes [] All other systems were reviewed and found to be within normal limits, except as documented in this note. Current Medications Current Medications Current Medications Medications (Trade) Dose Ordered Sig/[facility] Start Time Stop Time Status Last Admin Dose Admin Insulin Human Regular (HumuLIN R VIAL) 10 unit 1X ONCE 12/10/18 02:00 12/10/18 02:01 12/10/18 01:39 10 UNIT Morphine Sulfate (Morphine Sulfate) 2 mg PRN Q15MIN PRN 12/10/18 00:00 12/10/18 23:59 Sodium Polystyrene Sulfonate (Kayexalate) 15 gm 1X ONCE 12/10/18 02:00 12/10/18 02:01 12/10/18 01:41 15 GM Sodium Chloride 1,000 ml @ 100 mls/hr Q10H 12/10/18 00:30 12/10/18 10:29 12/10/18 00:24 100 MLS/HR Allergies Allergies Allergies Coded Allergies Type Severity Reaction Last Updated Verified No Known Drug Allergies 12/23/16 No Physical Exam Physical Exam Constitutional: Well developed, well nourished, no acute distress, non-toxic appearance. [] HENT: Normocephalic, atraumatic, bilateral external ears normal, oropharynx moist, no oral exudates, nose normal. [] Eyes: PERRLA, EOMI, conjunctiva normal, no discharge. [] Neck: Normal range of motion, no tenderness, supple, no stridor. [] Cardiovascular: Regular rate and rhythm[] Lungs & Thorax: Bilateral breath sounds clear to auscultation [] Abdomen: Bowel sounds normal, soft, no tenderness. [] Skin: Warm, dry, no erythema, no rash. [] Extremities: No tenderness, no cyanosis, no clubbing, ROM intact, no edema. [] Neurologic: Alert and oriented X 3, no focal deficits noted. [] Current Patient Data Vital Signs Vital Signs Date Time Temp Pulse Resp B/P (MAP) Pulse Ox O2 Delivery O2 Flow Rate FiO2 12/09/18 23:58 98.0 66 20 104/63 (77) 100 Nasal Cannula 3.0 98.0 Lab Values Laboratory Tests Test 12/10/18 00:35 White Blood Count 9.8 x10^3/uL (4.0-11.0) Red Blood Count 4.42 x10^6/uL (3.50-5.40) Hemoglobin 11.0 g/dL (12.0-15.5) L Hematocrit 34.5 % (36.0-47.0) L Mean Corpuscular Volume 78 fL (79-100) L Mean Corpuscular Hemoglobin 25 pg (25-35) Mean Corpuscular Hemoglobin Concent 32 g/dL (31-37) Red Cell Distribution Width 17.3 % (11.5-14.5) H Platelet Count 297 x10^3/uL (140-400) Neutrophils (%) (Auto) 56 % (31-73) Lymphocytes (%) (Auto) 31 % (24-48) Monocytes (%) (Auto) 8 % (0-9) Eosinophils (%) (Auto) 4 % (0-3) H Basophils (%) (Auto) 1 % (0-3) Neutrophils # (Auto) 5.5 x10^3uL (1.8-7.7) Lymphocytes # (Auto) 3.1 x10^3/uL (1.0-4.8) Monocytes # (Auto) 0.8 x10^3/uL (0.0-1.1) Eosinophils # (Auto) 0.4 x10^3/uL (0.0-0.7) Basophils # (Auto) 0.1 x10^3/uL (0.0-0.2) Sodium Level 132 mmol/L (136-145) L Potassium Level 5.9 mmol/L (3.5-5.1) H Chloride Level 92 mmol/L (98-107) L Carbon Dioxide Level 33 mmol/L (21-32) H Anion Gap 7 (6-14) Blood Urea Nitrogen 42 mg/dL (7-20) H Creatinine 1.8 mg/dL (0.6-1.0) H Estimated GFR (Cockcroft-Gault) 29.1 BUN/Creatinine Ratio 23 (6-20) H Glucose Level 518 mg/dL (70-99) *H Calcium Level 9.5 mg/dL (8.5-10.1) Magnesium Level 1.9 mg/dL (1.8-2.4) Total Bilirubin 0.2 mg/dL (0.2-1.0) Aspartate Amino Transferase (AST) 13 U/L (15-37) L Alanine Aminotransferase (ALT) 21 U/L (14-59) Alkaline Phosphatase 146 U/L (46-116) H Troponin I Quantitative < 0.017 ng/mL (0.000-0.055) YV-Msu-M-Type Natriuretic Peptide 394 pg/mL (0-124) H Total Protein 8.2 g/dL (6.4-8.2) Albumin 3.3 g/dL (3.4-5.0) L Albumin/Globulin Ratio 0.7 (1.0-1.7) L Lipase 122 U/L (73-393) Laboratory Tests 12/10/18 00:35 Laboratory Tests 12/10/18 00:35 EKG EKG EKG demonstrates normal sinus rhythm with rate of 66.[] Radiology/Procedures Radiology/Procedures [] Impressions: Chest x-ray demonstrates no acute process. Course & Med Decision Making Course & Med Decision Making Pertinent Labs and Imaging studies reviewed. (See chart for details) [] Dragon Disclaimer Dragon Disclaimer This electronic medical record was generated, in whole or in part, using a voice recognition dictation system. Departure Departure Impression: Primary Impression: Chest pain Additional Impression: Uncontrolled type 2 diabetes mellitus Disposition: ADMITTED INPATIENT Admitting Physician: Krissy Orta Condition: IMPROVED Referrals: JOSE BLAKELY MD (PCP) Problem Qualifiers Primary Impression: Chest pain Chest pain type: unspecified Qualified Codes: R07.9 - Chest pain, unspecified Additional Impression: Uncontrolled type 2 diabetes mellitus Glycemic state: with hyperglycemia Qualified Codes: E11.65 - Type 2 diabetes mellitus with hyperglycemia CHENG KLEIN Jr. DO Dec 10, 2018 00:00
[2018-12-10] MEDS ORDERED: IV NORMAL SALINE 1000ML BAG 1,000 ML IV SCH (00:30)
[2018-12-10 00:50] LABS: BASO # 0.1 x10^3/uL (0.0-0.2); BASO % 1 % (0-3); EOS # 0.4 x10^3/uL (0.0-0.7); EOS % 4 % (0-3); HEMATOCRIT 34.5 % (36.0-47.0); LYMPH # 3.1 x10^3/uL (1.0-4.8); LYMPH % 31 % (24-48); MEAN CORPUSCULAR HEMOGLOBIN 25 pg (25-35); MEAN CORPUSCULAR HGB CONC 32 g/dL (31-37); MEAN CORPUSCULAR VOLUME 78 fL (79-100); MONO # 0.8 x10^3/uL (0.0-1.1); MONO % 8 % (0-9); NEUT # 5.5 x10^3uL (1.8-7.7); NEUT % 56 % (31-73); PLATELET COUNT 297 x10^3/uL (140-400); RED BLOOD COUNT 4.42 x10^6/uL (3.50-5.40); RED CELL DISTRIBUTION WIDTH 17.3 % (11.5-14.5); WHITE BLOOD COUNT 9.8 x10^3/uL (4.0-11.0)
[2018-12-10 01:07] LABS: ALBUMIN 3.3 g/dL (3.4-5.0); ALBUMIN/GLOBULIN RATIO 0.7 (1.0-1.7); CALCIUM 9.5 mg/dL (8.5-10.1); CREATININE 1.8 mg/dL (0.6-1.0); GFR 29.1; MAGNESIUM 1.9 mg/dL (1.8-2.4); POTASSIUM 5.9 mmol/L (3.5-5.1); TOTAL BILIRUBIN 0.2 mg/dL (0.2-1.0); TOTAL PROTEIN 8.2 g/dL (6.4-8.2)
[2018-12-10] MEDS ORDERED: MORPHINE SULFATE 2 MG/ML VIAL. IV PRN (02:00)
[2018-12-10] MEDS ORDERED: DEXTROSE 50% 25 GM / 50ML DISP.SYRIN. IV PRN (02:00)
[2018-12-10] MEDS ORDERED: INSULIN REGULAR 100 UNIT/ML 3ML VIAL. IV ONE (02:00)
[2018-12-10] MEDS ORDERED: ONDANSETRON PF 4 MG/2 ML VIAL. IV PRN (02:00)
[2018-12-10] MEDS ORDERED: NITROGLYCERIN SUBLINGUAL 0.4 MG BOTTLE OF 25. SL PRN ×2 (02:00→10:15)
[2018-12-10] MEDS ORDERED: SODIUM POLYSTYRENE SULFONATE 15 GM/60 ML ORAL.SUSP. PO ONE (02:00)
[2018-12-10] MEDS: IV NORMAL SALINE 1000ML BAG 1,000 ML IV SCH ×2 (02:00→11:19)
[2018-12-10 02:30] VITALS: BP 120/67
--- NOTE | 2018-12-10 06:51 | EKG ---
[facility] [address] [place] [address] Test Date: 2018-12-09 Test Time: 23:53:16 Pat Name: EVELIA ATI Department: Room: 261 1 Gender: F [employer]: : 1960 Requested By: CHENG KLEIN Order Number: [id number] Reading MD: Ash Howard MD Measurements Intervals [place] Rate: 66 P: -47 GA: 152 QRS: -17 QRSD: 62 T: 47 QT: 380 QTc: 400 Interpretive Statements SINUS RHYTHM LEFTWARD AXIS QRS(T) CONTOUR ABNORMALITY CONSISTENT WITH SEPTAL INFARCT PROBABLY OLD ABNORMAL ECG CONSIDER INFERIOR INFARCT Electronically Signed On 12-13-2018 16:09:12 CDT by Ash Howard MD
[2018-12-10 07:00] VITALS: BP 115/77
[2018-12-10] MEDS: INSULIN LISPRO 300 UNITS/3 ML INSULN.PEN. SQ SCH ×5 (08:06→16:58)
--- NOTE | 2018-12-10 08:22 | RAD ---
Indication:chest pain TECHNIQUE:Portable AP chest X-ray COMPARISON:10/12/2018 FINDINGS: Heart is normal in size. Stable opacification is seen of the left lower lobe likely secondary to epicardial fat pad or overlapping cardiac silhouette. Otherwise, lungs are clear. No pneumothorax or pleural effusion. Visualized bony thorax is within normal limits. IMPRESSION: No acute pulmonary process. Electronically signed by: Hernán Fernandez DO (12/10/2018 8:20 AM) [facility]
[2018-12-10] MEDS ORDERED: cloNIDine HCL 0.1 MG TABLET PO PRN (10:15)
[2018-12-10] MEDS ORDERED: ALPRAZolam 0.5 MG TABLET PO PRN (10:15)
[2018-12-10] MEDS ORDERED: ONDANSETRON ODT 4 MG TAB.RAPDIS. PO PRN (10:15)
[2018-12-10] MEDS ORDERED: IPRATRPIUM/ALBUTEROL 0.5/2.5MG 3 ML NEBU. NEB PRN (10:15)
--- NOTE | 2018-12-10 10:20 | PDOC1 ---
History and Physical Date of Admission Date of Admission 12/10/18 Identification/Chief Complaint Chief Complaint My chest hurts Problems: (1) Chest pain (2) Uncontrolled type 2 diabetes mellitus Source Source: Chart review, Patient History of Present Illness History of Present Illness Patient is a 58-year-old female with past medical history of coronary artery disease status post PCI on multiple occasions and she refers having at least 7 stents in the past. She comes with a history of one day of experiencing chest discomfort precordial with no radiation to the GERD arm on and off that last approximately 5 minutes per episode. The patient also felt some lightheadedness associated with the symptom no palpitations no shortness of breath no paroxysmal nocturnal dyspnea has been reported she does have right-sided weakness as a consequence of an old stroke that she had in the past. The patient denies recent sick contacts no fever no chills no cough or sputum production has been reported no upper respiratory tract infections she denies recent changes in her medications. The patient felt that her symptoms are very similar to the ones that she had before when she was diagnosed with acute coronary syndromes reason why she decided to come to the emergency department for evaluation. At the time my note the patient sitting in chair in no apparent distress. Patient denies discomfort at the present time 3 sets of cardiac enzymes have been checked with negative findings no EKG changes or telemetry changes concerning for ischemic changes she is being admitted for further evaluation from the cardiac standpoint of view given her extensive history. She also has well-controlled diabetes she denies dietary transgressions and a stated before no recent infections were noted she does report having a smell to her urine and she has had several UTIs in the past no CVA tenderness no back pain were reported Past Medical History Cardiovascular: AFIB, CAD, CHF, HTN, Hyperlipidemia, Other Pulmonary: COPD, Pulmonary embolus, Other CENTRAL NERVOUS SYSTEM: CVA, Periperal neuropathy, Other GI: Other Heme/Onc: No pertinent hx Hepatobiliary: No pertinent hx Psych: Depression, Other Rheumatologic: Gout Infectious disease: No pertinent hx Renal/: UTI, Urinary Incontinence Endocrine: Diabetes Past Surgical History Past Surgical History: Cholecystectomy, Hernia Repair, Hysterectomy, Other Family History Family History: Coronary Artery Disease, Diabetes, High Cholestrol, Kidney Disease Social History ALCOHOL: none Drugs: None Current Problem List Problem List Problems Medical Problems: (1) Chest pain Status: Acute (2) Uncontrolled type 2 diabetes mellitus Status: Acute Current Medications Current Medications Current Medications Medications (Trade) Dose Ordered Sig/Jesus Manuel Start Time Stop Time Status Last Admin Dose Admin Dextrose (Dextrose 50%-Water Syringe) 12.5 gm PRN Q15MIN PRN 12/10/18 02:00 Insulin Human Lispro (HumaLOG) 0-7 UNITS TIDWMEALS 12/10/18 08:00 12/10/18 08:06 Insulin Human Regular (HumuLIN R VIAL) 10 unit 1X ONCE 12/10/18 02:00 12/10/18 02:01 DC 12/10/18 01:39 Morphine Sulfate (Morphine Sulfate) 2 mg PRN Q2HR PRN 12/10/18 02:00 12/11/18 01:59 Nitroglycerin (Nitrostat) 0.4 mg PRN Q5MIN PRN 12/10/18 02:00 12/11/18 01:59 Ondansetron HCl (Zofran) 4 mg PRN Q8HRS PRN 12/10/18 02:00 12/11/18 01:59 Sodium Polystyrene Sulfonate (Kayexalate) 15 gm 1X ONCE 12/10/18 02:00 12/10/18 02:01 DC 12/10/18 01:41 Sodium Chloride 1,000 ml @ 100 mls/hr Q10H 12/10/18 02:00 12/11/18 01:59 Allergies Allergies Allergies Coded Allergies Type Severity Reaction Last Updated Verified No Known Drug Allergies 12/23/16 No ROS Review of System CONSTITUTIONAL: No fever or chills EYES: No recent changes SKIN: No rash or itching CARDIOVASCULAR: No chest pain, syncope, palpitations, or edema RESPIRATORY: No SOB or cough GASTROINTESTINAL: No nausea, vomiting or abdominal pain NEUROLOGICAL: No headaches or weakness ENDOCRINE: No cold or heat intolerance GENITOURINARY: No urgency or frequency of urination MUSCULOSKELETAL: No back pain or joint pain LYMPHATICS: No enlarged lymph nodes PSYCHIATRIC: No anxiety or depression Physical Exam Physical Exam Gen.: Morbidly obese in no apparent distress Head: Normal shape atraumatic Eyes: Pupils equal reactive to light and accommodation, normal conjunctivae and lids Ears: Normal shape Nose: Normal shape no trauma Mouth: No exudates of the back of throat no thrush no lesions Neck: Supple no JVD no carotid bruit or lymphadenopathy no thyromegaly Chest: Lungs clear to auscultation with good inspiratory effort no crackles rales or rhonchi Cardiovascular: S1-S2 regular rhythm no murmurs gallops or rubs Abdomen: Bowel sounds present soft nontender no hepatosplenomegaly appreciated sign Extremities: No clubbing no cyanosis no edema peripheral pulses palpated bilaterally Neurological: Alert awake oriented in person time place and situation, cranial nerves II through XII intact, no motor or sensory deficits appreciated Psych: Appropriate mood, cooperative Vitals Vitals Vital Signs Date Time Temp Pulse Resp B/P (MAP) Pulse Ox O2 Delivery O2 Flow Rate FiO2 12/10/18 08:00 Nasal Cannula 2.0 12/10/18 07:00 97.9 67 20 115/77 (90) 95 97.9 Labs Labs Laboratory Tests Test 12/10/18 00:35 12/10/18 04:30 12/10/18 05:18 12/10/18 07:34 White Blood Count 9.8 x10^3/uL (4.0-11.0) Red Blood Count 4.42 x10^6/uL (3.50-5.40) Hemoglobin 11.0 g/dL (12.0-15.5) Hematocrit 34.5 % (36.0-47.0) Mean Corpuscular Volume 78 fL (79-100) Mean Corpuscular Hemoglobin 25 pg (25-35) Mean Corpuscular Hemoglobin Concent 32 g/dL (31-37) Red Cell Distribution Width 17.3 % (11.5-14.5) Platelet Count 297 x10^3/uL (140-400) Neutrophils (%) (Auto) 56 % (31-73) Lymphocytes (%) (Auto) 31 % (24-48) Monocytes (%) (Auto) 8 % (0-9) Eosinophils (%) (Auto) 4 % (0-3) Basophils (%) (Auto) 1 % (0-3) Neutrophils # (Auto) 5.5 x10^3uL (1.8-7.7) Lymphocytes # (Auto) 3.1 x10^3/uL (1.0-4.8) Monocytes # (Auto) 0.8 x10^3/uL (0.0-1.1) Eosinophils # (Auto) 0.4 x10^3/uL (0.0-0.7) Basophils # (Auto) 0.1 x10^3/uL (0.0-0.2) Sodium Level 132 mmol/L (136-145) Potassium Level 5.9 mmol/L (3.5-5.1) Chloride Level 92 mmol/L (98-107) Carbon Dioxide Level 33 mmol/L (21-32) Anion Gap 7 (6-14) Blood Urea Nitrogen 42 mg/dL (7-20) Creatinine 1.8 mg/dL (0.6-1.0) Estimated GFR (Cockcroft-Gault) 29.1 BUN/Creatinine Ratio 23 (6-20) Glucose Level 518 mg/dL (70-99) Calcium Level 9.5 mg/dL (8.5-10.1) Magnesium Level 1.9 mg/dL (1.8-2.4) Total Bilirubin 0.2 mg/dL (0.2-1.0) Aspartate Amino Transf (AST/SGOT) 13 U/L (15-37) Alanine Aminotransferase (ALT/SGPT) 21 U/L (14-59) Alkaline Phosphatase 146 U/L (46-116) Troponin I Quantitative < 0.017 ng/mL (0.000-0.055) < 0.017 ng/mL (0.000-0.055) CI-Kyi-O-Type Natriuretic Peptide 394 pg/mL (0-124) Total Protein 8.2 g/dL (6.4-8.2) Albumin 3.3 g/dL (3.4-5.0) Albumin/Globulin Ratio 0.7 (1.0-1.7) Lipase 122 U/L (73-393) Glucose (Fingerstick) 304 mg/dL (70-99) 340 mg/dL (70-99) Test 12/10/18 07:48 Troponin I Quantitative < 0.017 ng/mL (0.000-0.055) Laboratory Tests Test 12/10/18 00:35 12/10/18 04:30 12/10/18 05:18 12/10/18 07:34 White Blood Count 9.8 x10^3/uL (4.0-11.0) Red Blood Count 4.42 x10^6/uL (3.50-5.40) Hemoglobin 11.0 g/dL (12.0-15.5) Hematocrit 34.5 % (36.0-47.0) Mean Corpuscular Volume 78 fL (79-100) Mean Corpuscular Hemoglobin 25 pg (25-35) Mean Corpuscular Hemoglobin Concent 32 g/dL (31-37) Red Cell Distribution Width 17.3 % (11.5-14.5) Platelet Count 297 x10^3/uL (140-400) Neutrophils (%) (Auto) 56 % (31-73) Lymphocytes (%) (Auto) 31 % (24-48) Monocytes (%) (Auto) 8 % (0-9) Eosinophils (%) (Auto) 4 % (0-3) Basophils (%) (Auto) 1 % (0-3) Neutrophils # (Auto) 5.5 x10^3uL (1.8-7.7) Lymphocytes # (Auto) 3.1 x10^3/uL (1.0-4.8) Monocytes # (Auto) 0.8 x10^3/uL (0.0-1.1) Eosinophils # (Auto) 0.4 x10^3/uL (0.0-0.7) Basophils # (Auto) 0.1 x10^3/uL (0.0-0.2) Sodium Level 132 mmol/L (136-145) Potassium Level 5.9 mmol/L (3.5-5.1) Chloride Level 92 mmol/L (98-107) Carbon Dioxide Level 33 mmol/L (21-32) Anion Gap 7 (6-14) Blood Urea Nitrogen 42 mg/dL (7-20) Creatinine 1.8 mg/dL (0.6-1.0) Estimated GFR (Cockcroft-Gault) 29.1 BUN/Creatinine Ratio 23 (6-20) Glucose Level 518 mg/dL (70-99) Calcium Level 9.5 mg/dL (8.5-10.1) Magnesium Level 1.9 mg/dL (1.8-2.4) Total Bilirubin 0.2 mg/dL (0.2-1.0) Aspartate Amino Transf (AST/SGOT) 13 U/L (15-37) Alanine Aminotransferase (ALT/SGPT) 21 U/L (14-59) Alkaline Phosphatase 146 U/L (46-116) Troponin I Quantitative < 0.017 ng/mL (0.000-0.055) < 0.017 ng/mL (0.000-0.055) ZO-Lsa-A-Type Natriuretic Peptide 394 pg/mL (0-124) Total Protein 8.2 g/dL (6.4-8.2) Albumin 3.3 g/dL (3.4-5.0) Albumin/Globulin Ratio 0.7 (1.0-1.7) Lipase 122 U/L (73-393) Glucose (Fingerstick) 304 mg/dL (70-99) 340 mg/dL (70-99) Test 12/10/18 07:48 Troponin I Quantitative < 0.017 ng/mL (0.000-0.055) VTE Prophylaxis Ordered VTE Prophylaxis Devices: Yes VTE Pharmacological Prophylaxi: No Assessment/Plan Assessment/Plan Chest pain with negative troponins serially on 3 occasions History of coronary artery disease status post PCI and stents on 7 occasions as per history Morbid obesity with a BMI of 48 Uncontrolled diabetes mellitus type 2 Chronic kidney disease stage III History of atrial fibrillation on chronic anticoagulation with Eliquis History of CVA in the past Plan: Resume home medications Cardiology consultation Symptomatic relief of her symptoms Telemetry Further recommendations based on the clinical course DVT prophylaxis patient is on Eliquis fully anticoagulated Problem Qualifiers (1) Chest pain: Chest pain type: unspecified Qualified Codes: R07.9 - Chest pain, unspecified (2) Uncontrolled type 2 diabetes mellitus: Glycemic state: with hyperglycemia Qualified Codes: E11.65 - Type 2 diabetes mellitus with hyperglycemia JON PIPER MD Dec 10, 2018 10:20
[2018-12-10] MEDS ORDERED: ALBUTEROL SULFATE 2.5 MG/3 ML NEBU. NEB PRN (10:30)
[2018-12-10 10:41] VITALS: BP 136/69
--- NOTE | 2018-12-10 10:42 | PDOC2 ---
VIOLETTE ESCOBAR REFERRAL MANAGER 12/10/18 1042: CARDIAC CONSULT DATE OF CONSULT Date of Consult DATE: 12/10/18 TIME: 10:25 REASON FOR CONSULT Reason for Consult: Chest pain REFERRING PHYSICIAN Referring Physician: Melanie SOURCE Source: Chart review, Patient HISTORY OF PRESENT ILLNESS HISTORY OF PRESENT ILLNESS This is a pleasant 58 yo female admitted for complains of chest pain. Reports that she was having stabbing left lower chest pain that sometimes went to her left side abd and right. It was kajal for her to take a deep breath at that point. Knowing that she has significant cardiac history she went to ED. Also on separate occasion she has been having nausea and sometimes feeling clammy with that and dizziness. She has been having episodes to which when she eats, solid food sometimes feels getting stuck midway and feels this pressure and it takes time before getting that relief. At one point last she did not eat much because of this and sensation of nausea. No palpitations or any recent fever. She is significant for CAD with past stents and recent LHC as noted below. Currently she denies any discomfort. PAST MEDICAL HISTORY Cardiovascular: AFIB, CAD, HTN, Hyperlipidemia, Other (LE PAD, venous insufficiency) Pulmonary: COPD, Pulmonary embolus, Pneumonia, Other (RUE DVT) CENTRAL NERVOUS SYSTEM: CVA, Periperal neuropathy GI: GERD, Other (esophageal stricture?) Heme/Onc: No pertinent hx Hepatobiliary: No pertinent hx Psych: Depression Musculoskeletal: Osteoarthritis Rheumatologic: Gout Infectious disease: No pertinent hx ENT: Other (retinopathy?) Renal/: UTI, Urinary Incontinence Endocrine: Diabetes (2), Hypothyroidism Dermatology: No pertinent hx PAST SURGICAL HISTORY Past Surgical History: Cholecystectomy, Hernia Repair, Hysterectomy, Other (PCI /stents) FAMILY HISTORY Family History: Coronary Artery Disease, Diabetes SOCIAL HISTORY Smoke: No ALCOHOL: none CURRENT MEDICATIONS CURRENT MEDICATIONS Current Medications Medications (Trade) Dose Ordered Sig/Jesus Manuel Route PRN Reason Start Time Stop Time Status Last Admin Dose Admin Sodium Chloride 1,000 ml @ 100 mls/hr Q10H IV 12/10/18 00:30 12/10/18 10:29 12/10/18 00:24 Sodium Polystyrene Sulfonate (Kayexalate) 15 gm 1X ONCE PO 12/10/18 02:00 12/10/18 02:01 DC 12/10/18 01:41 Insulin Human Regular (HumuLIN R VIAL) 10 unit 1X ONCE IV 12/10/18 02:00 12/10/18 02:01 DC 12/10/18 01:39 Insulin Human Lispro (HumaLOG) 0-7 UNITS TIDWMEALS SQ 12/10/18 08:00 12/10/18 08:06 ALLERGIES ALLERGIES: Coded Allergies: No Known Drug Allergies (Unverified , 12/23/16) ROS Review of System 14 point ROS evaluated with pertinent positives noted per HPI PHYSICAL EXAM General: Alert, Oriented X3, Cooperative, No acute distress HEENT: Atraumatic, Mucous membr. moist/pink Lungs: Other (dimnished bases) Heart: Regular rate (SR), Other (distant heart sounds) Abdomen: Soft, Other (obese) Extremities: No cyanosis, Other (1+ bilateral LE pitting edema) Skin: Other (scaly LE skin and with mild erythema to RLE with wound to right shannon) Neuro: Normal speech, Sensation intact Psych/Mental Status: Mental status NL, Mood NL MUSCULOSKELETAL: Osteoarthritic changes both hands VITALS VITALS Vital Signs Date Time Temp Pulse Resp B/P (MAP) Pulse Ox O2 Delivery O2 Flow Rate FiO2 12/10/18 08:00 Nasal Cannula 2.0 12/10/18 07:00 97.9 67 20 115/77 (90) 95 97.9 LABS Lab: Laboratory Tests Test 12/10/18 00:35 12/10/18 04:30 12/10/18 05:18 12/10/18 07:34 White Blood Count 9.8 x10^3/uL (4.0-11.0) Red Blood Count 4.42 x10^6/uL (3.50-5.40) Hemoglobin 11.0 g/dL (12.0-15.5) Hematocrit 34.5 % (36.0-47.0) Mean Corpuscular Volume 78 fL (79-100) Mean Corpuscular Hemoglobin 25 pg (25-35) Mean Corpuscular Hemoglobin Concent 32 g/dL (31-37) Red Cell Distribution Width 17.3 % (11.5-14.5) Platelet Count 297 x10^3/uL (140-400) Neutrophils (%) (Auto) 56 % (31-73) Lymphocytes (%) (Auto) 31 % (24-48) Monocytes (%) (Auto) 8 % (0-9) Eosinophils (%) (Auto) 4 % (0-3) Basophils (%) (Auto) 1 % (0-3) Neutrophils # (Auto) 5.5 x10^3uL (1.8-7.7) Lymphocytes # (Auto) 3.1 x10^3/uL (1.0-4.8) Monocytes # (Auto) 0.8 x10^3/uL (0.0-1.1) Eosinophils # (Auto) 0.4 x10^3/uL (0.0-0.7) Basophils # (Auto) 0.1 x10^3/uL (0.0-0.2) Sodium Level 132 mmol/L (136-145) Potassium Level 5.9 mmol/L (3.5-5.1) Chloride Level 92 mmol/L (98-107) Carbon Dioxide Level 33 mmol/L (21-32) Anion Gap 7 (6-14) Blood Urea Nitrogen 42 mg/dL (7-20) Creatinine 1.8 mg/dL (0.6-1.0) Estimated GFR (Cockcroft-Gault) 29.1 BUN/Creatinine Ratio 23 (6-20) Glucose Level 518 mg/dL (70-99) Calcium Level 9.5 mg/dL (8.5-10.1) Magnesium Level 1.9 mg/dL (1.8-2.4) Total Bilirubin 0.2 mg/dL (0.2-1.0) Aspartate Amino Transf (AST/SGOT) 13 U/L (15-37) Alanine Aminotransferase (ALT/SGPT) 21 U/L (14-59) Alkaline Phosphatase 146 U/L (46-116) Troponin I Quantitative < 0.017 ng/mL (0.000-0.055) < 0.017 ng/mL (0.000-0.055) ZL-Zsp-J-Type Natriuretic Peptide 394 pg/mL (0-124) Total Protein 8.2 g/dL (6.4-8.2) Albumin 3.3 g/dL (3.4-5.0) Albumin/Globulin Ratio 0.7 (1.0-1.7) Lipase 122 U/L (73-393) Glucose (Fingerstick) 304 mg/dL (70-99) 340 mg/dL (70-99) Test 12/10/18 07:48 Troponin I Quantitative < 0.017 ng/mL (0.000-0.055) IMAGES IMAGES Aorto runoff IMPRESSION: 1. Moderate aortoiliac calcific plaquing without evidence of high-grade stenosis. 2. Streaky increased density anteriorly at the left groin compatible with residual hemorrhage related to a previous left groin catheterization procedure. Similar findings were evident on the MR study of 03/12/2018. 3. Inadequate opacification of the lower extremity arteries due to technical factors. DATE: 03/16/18 1100 ECHOCARDIOGRAM ECHOCARDIOGRAM <Conclusion> The left ventricular systolic function is normal and the ejection fraction is within normal range. The Ejection Fraction is 65%. Transmitral Doppler flow pattern is Grade II-pseudonormal filling dynamics. There is mild to moderate concentric left ventricular hypertrophy. The LA is normal in size The RA is mildly dilated The aortic valve is not well visualized. Doppler and Color-flow revealed mild mitral regurgitation. Mitral annular calcification is mild to moderate. The tricuspid valve is normal in structure and function. There is a small amount of circumferential pericardial effusion noted. DATE: 08/31/18 1658 HEART CATH HEART CATH Findings: Coronaries: The left main is normal. The LAD has a stent in the proximal segment that is open and normal nose significant residual disease was seen. There is mild diffuse disease distally and it gives a large collaterals to the RCA. Circumflex is open with very good flow there is some diffuse disease in the 20-40% range in the midsegment. The obtuse marginal has 30% plaquing. The right coronary artery has severe diffuse disease from the proximal segment all the way to the distal segment. The PDA receives a lot off collaterals from the left. The posterolateral branch is totally occluded. Ventriculogram: The global left ventricular ejection fraction was estimated to be about 60%. The inferior wall in the inferobasal and the middle segment are essentially akinetic. Conclusion This patient has diffuse disease of the right coronary but receives a lot of collaterals from the left. The left coronary artery has mild disease and the left ventricular ejection fraction was 60%. To me this patient already has had a previously completed inferior wall NM therefore I would recommend medical treatment for this patient. She needs tight blood pressure control, diet and weight loss and exercise. DATE: 03/22/17 1820 ASSESSMENT/PLAN ASSESSMENT/PLAN 1. Atypical CP: suspect GI. notable for globus sensation. Esophageal stricture? 2. Vasovagal presyncopal event 3. CAD; past stents. clinically stable. 4. HTN: controlled 5. HLP 6. DM2: uncontrolled initially at 500s 7. JENNIFER with hyperkalemia 8. Left leg wound with DPN and PAD 9. Hx of PE/DVT 10. PAFIB? 11. Morbid obesity/debility/right side hemiparesis with past hx of CVA Recommendations 1. Continue with ASA. Hold eliquis in case endoscopy is warranted. GI consult 2. TTE as noted above. IVF and kayexelate given in ED. Repeat BMP 3. Hold aldactone for now 4. Continue with secondary prevention measures. 5. May need to revisit LE PAD as an outpt. LAITH ABBOTT MD 12/10/18 9672: CARDIAC CONSULT ASSESSMENT/PLAN ASSESSMENT/PLAN Pt. seen and examined. Agree with above Lacing String Cutter note. 58 y.o chronically ill woman presenting for non-cardiac chest pain She has severe LE edema, wounds. Continue diuresis as tolerated. GI w/u as needed. No cardiac contraindications Ok to hold eliquis for now. Previous CTA with run-off in 2018, cath in 2017 w/o need for any critical interventions. She needs LE compression therapy. Supportive care. Thanks VIOLETTE ESCOBAR APRN Dec 10, 2018 10:42 LAITH ABBOTT MD Dec 10, 2018 22:49
[2018-12-10] MEDS: PREGABALIN 75 MG CAPSULE PO SCH ×2 (10:43→20:09)
[2018-12-10] MEDS: LEVOTHYROXINE 50 MCG TABLET PO SCH (10:43)
[2018-12-10] MEDS: DULoxetine HCL 30 MG CAPSULE.DR PO SCH ×2 (10:44→20:08)
[2018-12-10] MEDS: HYDROcodone/APAP 10/325 1 TAB TABLET PO PRN (10:44)
[2018-12-10] MEDS: LUBIPROSTONE 8 MCG CAPSULE PO SCH ×2 (11:00→16:58)
[2018-12-10] MEDS: OXYBUTYNIN CHLORIDE 5 MG TABLET PO SCH ×2 (11:00→20:07)
[2018-12-10] MEDS: PANTOPRAZOLE 40 MG TABLET.DR. PO SCH ×3 (11:00→15:02)
[2018-12-10 11:15] LABS: GFR 25.8; POTASSIUM 4.5 mmol/L (3.5-5.1)
[2018-12-10 11:37] LABS: CHOLESTEROL/HDL RATIO 5.7
--- NOTE | 2018-12-10 11:59 | NUR ---
SS following for discharge planning. SS reviewed pt chart and met with pt's RN. Pt is from home with spouse and is currently requiring oxygen. Pt has previously been on services with [facility], ; fax [phone], in the past. SS will continue to follow for discharge planning.
--- NOTE | 2018-12-10 12:09 | PDOC2 ---
GI CONSULT Reason For Consult: Esophageal stricture, chest pain HPI: HPI: 58 y/o female who reports right and left-sided stabbing chest pain w/ some in LUQ. Began while at rest, better now as "pressure." Did have LUQ stabbing pain last week after eating. Cardiology following, GI asked to see for swallowing complaints. She reports years of dysphagia since stroke. More difficulty gradually over time w/ breads and meats. Occurs daily, felt in throat and midchest, bolus passes when she drinks water. Was told she had a narrowing at one point but does not recall previous esophageal dilation. H/o GERD controlled w/ Nexium QD, h/o constipation controlled w/ Amitiza BID. On ASA and Eliquis, denies NSAIDs. Had some nausea last week, none now and denies vomiting. No hematochezia or melena. No weight loss or change in appetite. Hungry now, asking to eat. Unclear timing of last EGD and colonoscopy. S/p cholecystectomy. Denies liver and pancreas history. PMH: PMH: A Fib, CAD w/ stents, HTN, HLD, PAD, COPD, PE, pneumonia, DVT, CVA, peripheral neuropathy, GERD, dysphagia, depression, OA, gout, UTI, DM, hypothyroidism cholecystectomy, hernia repair w/ mesh, hysterectomy, appendectomy FH: Family History: CAD Social History: Smoke: No ALCOHOL: none Drugs: None ROS: GEN: Denies fevers, chills, sweats HEENT: Denies blurred vision, sore throat CV: +chest pain RESP: Denies shortness of air, cough GI: Per HPI : Denies hematuria, dysuria ENDO: Denies weight changes NEURO: Denies confusion, dizziness MSK: Denies weakness, joint pain/swelling SKIN: Denies jaundice, pruritus Vitals: Vitals: Vital Signs Date Time Temp Pulse Resp B/P (MAP) Pulse Ox O2 Delivery O2 Flow Rate FiO2 12/10/18 10:41 98.0 68 20 136/69 (91) 94 Nasal Cannula 2.0 98.0 Labs: Labs: Laboratory Tests Test 12/10/18 00:35 12/10/18 04:30 12/10/18 05:18 12/10/18 07:34 White Blood Count 9.8 x10^3/uL (4.0-11.0) Red Blood Count 4.42 x10^6/uL (3.50-5.40) Hemoglobin 11.0 g/dL (12.0-15.5) Hematocrit 34.5 % (36.0-47.0) Mean Corpuscular Volume 78 fL (79-100) Mean Corpuscular Hemoglobin 25 pg (25-35) Mean Corpuscular Hemoglobin Concent 32 g/dL (31-37) Red Cell Distribution Width 17.3 % (11.5-14.5) Platelet Count 297 x10^3/uL (140-400) Neutrophils (%) (Auto) 56 % (31-73) Lymphocytes (%) (Auto) 31 % (24-48) Monocytes (%) (Auto) 8 % (0-9) Eosinophils (%) (Auto) 4 % (0-3) Basophils (%) (Auto) 1 % (0-3) Neutrophils # (Auto) 5.5 x10^3uL (1.8-7.7) Lymphocytes # (Auto) 3.1 x10^3/uL (1.0-4.8) Monocytes # (Auto) 0.8 x10^3/uL (0.0-1.1) Eosinophils # (Auto) 0.4 x10^3/uL (0.0-0.7) Basophils # (Auto) 0.1 x10^3/uL (0.0-0.2) Sodium Level 132 mmol/L (136-145) Potassium Level 5.9 mmol/L (3.5-5.1) Chloride Level 92 mmol/L (98-107) Carbon Dioxide Level 33 mmol/L (21-32) Anion Gap 7 (6-14) Blood Urea Nitrogen 42 mg/dL (7-20) Creatinine 1.8 mg/dL (0.6-1.0) Estimated GFR (Cockcroft-Gault) 29.1 BUN/Creatinine Ratio 23 (6-20) Glucose Level 518 mg/dL (70-99) Calcium Level 9.5 mg/dL (8.5-10.1) Magnesium Level 1.9 mg/dL (1.8-2.4) Total Bilirubin 0.2 mg/dL (0.2-1.0) Aspartate Amino Transf (AST/SGOT) 13 U/L (15-37) Alanine Aminotransferase (ALT/SGPT) 21 U/L (14-59) Alkaline Phosphatase 146 U/L (46-116) Troponin I Quantitative < 0.017 ng/mL (0.000-0.055) < 0.017 ng/mL (0.000-0.055) RW-Cps-I-Type Natriuretic Peptide 394 pg/mL (0-124) Total Protein 8.2 g/dL (6.4-8.2) Albumin 3.3 g/dL (3.4-5.0) Albumin/Globulin Ratio 0.7 (1.0-1.7) Lipase 122 U/L (73-393) Glucose (Fingerstick) 304 mg/dL (70-99) 340 mg/dL (70-99) Test 12/10/18 07:48 12/10/18 08:55 12/10/18 11:35 Sodium Level 135 mmol/L (136-145) Potassium Level 4.5 mmol/L (3.5-5.1) Chloride Level 97 mmol/L (98-107) Carbon Dioxide Level 26 mmol/L (21-32) Anion Gap 12 (6-14) Blood Urea Nitrogen 47 mg/dL (7-20) Creatinine 2.0 mg/dL (0.6-1.0) Estimated GFR (Cockcroft-Gault) 25.8 Glucose Level 315 mg/dL (70-99) Calcium Level 9.0 mg/dL (8.5-10.1) Troponin I Quantitative < 0.017 ng/mL (0.000-0.055) Triglycerides Level 285 mg/dL (0-150) Cholesterol Level 205 mg/dL (0-200) LDL Cholesterol, Calculated 112 mg/dL (0-100) VLDL Cholesterol, Calculated 57 mg/dL (0-40) Non-HDL Cholesterol Calculated 169 mg/dL (0-129) HDL Cholesterol 36 mg/dL (40-60) Cholesterol/HDL Ratio 5.7 Glucose (Fingerstick) 247 mg/dL (70-99) Allergies: Coded Allergies: No Known Drug Allergies (Unverified , 12/23/16) Medications: Current Medications Medications (Trade) Dose Ordered Sig/Jesus Manuel Route PRN Reason Start Time Stop Time Status Last Admin Dose Admin Sodium Chloride 1,000 ml @ 100 mls/hr Q10H IV 12/10/18 00:30 12/10/18 10:29 DC 12/10/18 00:24 Sodium Polystyrene Sulfonate (Kayexalate) 15 gm 1X ONCE PO 12/10/18 02:00 12/10/18 02:01 DC 12/10/18 01:41 Insulin Human Regular (HumuLIN R VIAL) 10 unit 1X ONCE IV 12/10/18 02:00 12/10/18 02:01 DC 12/10/18 01:39 Sodium Chloride 1,000 ml @ 100 mls/hr Q10H IV 12/10/18 02:00 12/11/18 01:59 12/10/18 11:19 Insulin Human Lispro (HumaLOG) 0-7 UNITS TIDWMEALS SQ 12/10/18 08:00 12/10/18 08:06 Duloxetine HCl (Cymbalta) 60 mg BID PO 12/10/18 11:00 12/10/18 10:44 Acetaminophen/ Hydrocodone Bitart (Lortab 10/325) 1 tab PRN Q6HRS PRN PO PAIN 12/10/18 10:30 12/10/18 10:44 Levothyroxine Sodium (Synthroid) 50 mcg DAILY06 PO 12/10/18 11:00 12/10/18 10:43 Pregabalin (Lyrica) 150 mg BID PO 12/10/18 11:00 12/10/18 10:43 Imaging: Imaging: CXR IMPRESSION: No acute pulmonary process. PE: GEN: NAD, up to chair HEENT: Atraumatic, PERRL LUNGS: NC HEART: RRR ABD: NABS, soft, obese, not particularly tender, +umbilical hernia EXTREMITY: BLE edema - redness LLE w/ bandage SKIN: No rashes, no jaundice NEURO/PSYCH: A & O 3 A/P: A/P: Bilateral chest pain, LUQ pain CAD, JENNIFER, DM/hyperglycemia Dysphagia - chronic since CVA, worsening GERD - on PPI, had EGD at some point Constipation - controlled w/ Amitiza CRC screen - unclear timing S/p cholecystectomy Microcytic anemia - iron deficient 08/2018, on Eliquis and ASA -- Will ask for records from our office re: past scopes. Check esophagram - okay for PO following this per GI. Continue PPI and Amitiza, add PO iron. PETER ERVIN Dec 10, 2018 12:09
[2018-12-10] MEDS: INSULIN GLARGINE 300 UNITS/3 ML INSULN.PEN. SQ SCH ×2 (12:41→20:15)
[2018-12-10] MEDS ORDERED: BARIUM SULFATE 700 MG TABLET PO ONE (13:30)
[2018-12-10] MEDS ORDERED: BARIUM SULFATE 340 GM SUSPENSION. PO ONE (13:30)
[2018-12-10] MEDS ORDERED: BARIUM SULFATE 60% 355 ML SUSP PO ONE (13:30)
[2018-12-10] MEDS ORDERED: SIMETHICONE/SOD BICARB/CITRIC ACID PACKET. PO ONE (13:30)
--- NOTE | 2018-12-10 14:19 | NUR ---
Wound Care: Consult to eval and treat for multiple wounds present on admission. Pt is known to wound clinic and was most recently treated as an outpatient in 09/2018, for a stage 3 pressure injury to her R groin from her brief. This wound is currently intact with dark, firm scarring, and pt states that areas breaks open and bleeds from time to time. Applied skin prep and foam dressing for protection. Significant BLE swelling, redness and scaly edema noted. Open statis ulcer noted to R anterior lower leg, cleansed and ulcers to both legs dressed with aquacel AG and foam dressings. No other open areas noted on head to toe inspection. Pt educated on PU prevention, able to mobilize independently in bed. Plan to follow up 12/19
[2018-12-10 14:40] VITALS: BP 117/71
[2018-12-10] MEDS: BUMETANIDE 1 MG TABLET. PO SCH (14:56)
[2018-12-10] MEDS: DOCUSATE SODIUM 100 MG CAPSULE. PO SCH ×2 (14:56→20:08)
[2018-12-10] MEDS: SENNOSIDES/DOCUSATE 8.6/50MG TABLET. PO SCH ×2 (14:57→20:08)
[2018-12-10] MEDS: ASPIRIN CHEWABLE 81 MG TABLET. PO SCH (14:57)
[2018-12-10] MEDS: SPIRONOLACTONE 25 MG TABLET PO SCH (14:57)
[2018-12-10] MEDS: amLODIPine BESYLATE 5 MG TABLET PO SCH (14:58)
[2018-12-10] MEDS: APIXABAN 5 MG TABLET. PO SCH ×2 (14:58→20:07)
[2018-12-10] MEDS: NYSTATIN TOPICAL POWDER 15GM BOTTLE. TP SCH ×2 (14:59→21:00)
[2018-12-10] MEDS: METOPROLOL SUCC 24HR ER 50 MG TAB.ER.24H. PO SCH (14:59)
--- NOTE | 2018-12-10 16:20 | RAD ---
Indication: Dysphagia with solid food. TECHNIQUE: Esophagram with thin barium with total fluoroscopy time of 1.7 minutes and multiple cine loops were recorded. COMPARISON: None FINDINGS: Prompt passage of contrast seen through the GE junction. No intraluminal obstructing mass or stricture seen. No hilar hernia seen. IMPRESSION: No evidence of esophageal stricture or mass. Electronically signed by: Hernán Fernandez DO (12/10/2018 4:17 PM) [facility]
[2018-12-10] MEDS: FERROUS SULFATE ORAL 300 MG/5 ML SOLUTION. PO SCH (16:59)
[2018-12-10 19:31] VITALS: BP 119/59
[2018-12-10] MEDS: ATORVASTATIN CALCIUM 40 MG TABLET. PO SCH (20:08)
[2018-12-10] MEDS: tiZANidine 4 MG TABLET. PO SCH (20:08)
[2018-12-10 22:44] VITALS: BP 114/60
[2018-12-11 02:48] VITALS: BP 155/66
[2018-12-11 04:17] LABS: HEMOGLOBIN A1C 14.6 % (4.8-5.6)
[2018-12-11 04:35] LABS: BILIRUBIN,URINE NEGATIVE (NEG); CLARITY,URINE CLOUDY; COLOR,URINE YELLOW; NITRITE,URINE NEGATIVE (NEG); PH,URINE 5.5; PROTEIN,URINE 30 mg/dL (NEG-TRACE); UROBILINOGEN,URINE 0.2 mg/dL (0.2 mg/dL)
[2018-12-11 05:21] LABS: BACTERIA,URINE MANY /HPF (0-FEW); WBC,URINE TNTC /HPF (0-4)
[2018-12-11 05:22] LABS: RBC,URINE FOBS /HPF (0-2)
[2018-12-11] MEDS: LEVOTHYROXINE 50 MCG TABLET PO SCH (05:32)
[2018-12-11 07:30] LABS: CALCIUM 9.1 mg/dL (8.5-10.1); CREATININE 1.7 mg/dL (0.6-1.0); GFR 31.1; POTASSIUM 4.6 mmol/L (3.5-5.1)
[2018-12-11 07:36] VITALS: BP 130/85
[2018-12-11] MEDS: INSULIN LISPRO 300 UNITS/3 ML INSULN.PEN. SQ SCH ×6 (08:43→17:00)
[2018-12-11] MEDS: FERROUS SULFATE ORAL 300 MG/5 ML SOLUTION. PO SCH ×2 (08:46→17:48)
[2018-12-11] MEDS: DOCUSATE SODIUM 100 MG CAPSULE. PO SCH ×2 (08:47→20:09)
[2018-12-11] MEDS: DULoxetine HCL 30 MG CAPSULE.DR PO SCH ×2 (08:47→20:10)
[2018-12-11] MEDS: PREGABALIN 75 MG CAPSULE PO SCH ×2 (08:47→20:11)
[2018-12-11] MEDS: LUBIPROSTONE 8 MCG CAPSULE PO SCH ×2 (08:47→17:48)
[2018-12-11] MEDS: SENNOSIDES/DOCUSATE 8.6/50MG TABLET. PO SCH ×2 (08:48→20:09)
[2018-12-11] MEDS: amLODIPine BESYLATE 5 MG TABLET PO SCH (08:48)
[2018-12-11] MEDS: OXYBUTYNIN CHLORIDE 5 MG TABLET PO SCH ×2 (08:48→20:09)
[2018-12-11] MEDS: ASPIRIN CHEWABLE 81 MG TABLET. PO SCH (08:48)
[2018-12-11] MEDS: PANTOPRAZOLE 40 MG TABLET.DR. PO SCH ×2 (08:48→17:48)
[2018-12-11] MEDS: BUMETANIDE 1 MG TABLET. PO SCH ×2 (08:48→14:48)
[2018-12-11] MEDS: METOPROLOL SUCC 24HR ER 50 MG TAB.ER.24H. PO SCH (08:49)
[2018-12-11] MEDS: APIXABAN 5 MG TABLET. PO SCH ×2 (08:49→20:10)
[2018-12-11] MEDS: NYSTATIN TOPICAL POWDER 15GM BOTTLE. TP SCH ×2 (08:49→20:17)
[2018-12-11] MEDS: INSULIN GLARGINE 300 UNITS/3 ML INSULN.PEN. SQ SCH ×2 (08:59→20:17)
[2018-12-11] MEDS ORDERED: FLUTICASONE 50MCG/NASAL SPRAY 16GM BOTTLE. NS PRN (09:00)
[2018-12-11] MEDS: SPIRONOLACTONE 25 MG TABLET PO SCH (09:00)
[2018-12-11] MEDS ORDERED: FLUCONAZOLE 150 MG PO SCH (09:00)
[2018-12-11 10:43] VITALS: BP 104/83
[2018-12-11] MEDS: ANTI-COAG MONITOR BY PHARMACY. MC PRN ×2 (10:46→10:51)
--- NOTE | 2018-12-11 12:40 | PDOC ---
Subjective: Subjective: Tolerating PO but still has trouble w/ bread and meat. Says urine is dark and wants to make sure she doesn't have sepsis. Objective: Vital Signs: Vital Signs Date Time Temp Pulse Resp B/P (MAP) Pulse Ox O2 Delivery O2 Flow Rate FiO2 12/11/18 10:43 97.2 68 16 104/83 (90) 97 Room Air 97.2 12/11/18 08:00 2.0 Labs: Laboratory Tests Test 12/10/18 16:45 12/10/18 20:06 12/11/18 02:20 12/11/18 04:15 Glucose (Fingerstick) 151 mg/dL 272 mg/dL Urine Collection Type Unknown Urine Color Yellow Urine Clarity Cloudy Urine pH 5.5 Urine Specific Thompson 1.015 Urine Protein 30 mg/dL Urine Glucose (UA) 100 mg/dL Urine Ketones (Stick) Negative mg/dL Urine Blood Large Urine Nitrite Negative Urine Bilirubin Negative Urine Urobilinogen Dipstick 0.2 mg/dL Urine Leukocyte Esterase Large Urine RBC Fobs /HPF Urine WBC Tntc /HPF Urine Bacteria Many /HPF Sodium Level 136 mmol/L Potassium Level 4.6 mmol/L Chloride Level 96 mmol/L Carbon Dioxide Level 32 mmol/L Anion Gap 8 Blood Urea Nitrogen 47 mg/dL Creatinine 1.7 mg/dL Estimated GFR (Cockcroft-Gault) 31.1 Glucose Level 219 mg/dL Calcium Level 9.1 mg/dL Test 12/11/18 07:19 12/11/18 11:35 Glucose (Fingerstick) 236 mg/dL 233 mg/dL Imaging: Barium Swallow 12/10 IMPRESSION: No evidence of esophageal stricture or mass. PE: GEN: NAD LUNGS: CTAB HEART: RRR ABD: S/ND/NT NEURO/PSYCH: A & O 3 A/P: Atypical chest pain Dysphagia (solids) - chronic since CVA, barium swallow as above GERD - on PPI, unclear timing of last EGD CRC screen - UTD (2015) YESENIA - CAD w/ ASA and Eliquis UTI, uncontrolled DM (A1c 14.6) - per primary -- Continue same per GI. Will review w/ Dr. Shipman, but seems reasonable to pursue outpt EGD re: dysphagia and YESENIA. Could also consider EDGE STAINER PETER Silva Dec 11, 2018 12:40
[2018-12-11 14:53] VITALS: BP 129/56
[2018-12-11] MEDS ORDERED: BISACODYL 5 MG TABLET.DR. PO PRN (16:45)
[2018-12-11] MEDS ORDERED: POLYETHYLENE GLYCOL 3350 17 GM PACKET. PO PRN (16:45)
--- NOTE | 2018-12-11 16:57 | PDOC ---
PROGRESS NOTES Chief Complaint Chief Complaint Atypical Chest pain with negative troponins serially on 3 occasions unlikely cardiac in nature, GI most likely Dysphagia being evaluated by GI History of coronary artery disease status post PCI and stents on 7 occasions as per history Morbid obesity with a BMI of 48 Uncontrolled diabetes mellitus type 2 Chronic kidney disease stage III History of atrial fibrillation on chronic anticoagulation with Eliquis History of CVA in the past Right lower extremity worsening edema Plan: Venous Doppler of the right lower extremity We'll follow recommendations from GI Holding Eliquis and no black tone Further recommendations based on the clinical course History of Present Illness History of Present Illness Patient with no acute distress during my visit. Her right lower exam he seems to be more edematous today compared to yesterday. No evidence of infection only hyperpigmentation secondary to venous insufficiency and chronic lower some edema. Recommendations from consultants were greatly appreciated patient okay to be Eliquis encase GI would like to do an EGD. Holding Aldactone for now she may need a revisit of her lower extremity peripheral arterial disease. She had a previous CTA with runoff into thousand 18 the catheter in 2017 without the need for any critical interventions she does need lower summary compression therapy Vitals Vitals Vital Signs Date Time Temp Pulse Resp B/P (MAP) Pulse Ox O2 Delivery O2 Flow Rate FiO2 12/11/18 14:53 96.8 70 16 129/56 (80) 94 Room Air 96.8 12/11/18 08:00 2.0 Physical Exam General: Alert, Oriented X3, Cooperative, No acute distress Heart: Regular rate (SR), Other (distant heart sounds) Lungs: Crackles Abdomen: Soft, Other (obese) Extremities: No cyanosis, Other (1+ bilateral LE pitting edema) Skin: Other (scaly LE skin and with mild erythema to RLE with wound to right shannon) Labs LABS Laboratory Tests Test 12/10/18 20:06 12/11/18 02:20 12/11/18 04:15 12/11/18 07:19 Glucose (Fingerstick) 272 mg/dL (70-99) 236 mg/dL (70-99) Urine Collection Type Unknown Urine Color Yellow Urine Clarity Cloudy Urine pH 5.5 Urine Specific [place] 1.015 Urine Protein 30 mg/dL (NEG-TRACE) Urine Glucose (UA) 100 mg/dL (NEG) Urine Ketones (Stick) Negative mg/dL (NEG) Urine Blood Large (NEG) Urine Nitrite Negative (NEG) Urine Bilirubin Negative (NEG) Urine Urobilinogen Dipstick 0.2 mg/dL (0.2 mg/dL) Urine Leukocyte Esterase Large (NEG) Urine RBC Fobs /HPF (0-2) Urine WBC Tntc /HPF (0-4) Urine Bacteria Many /HPF (0-FEW) Sodium Level 136 mmol/L (136-145) Potassium Level 4.6 mmol/L (3.5-5.1) Chloride Level 96 mmol/L (98-107) Carbon Dioxide Level 32 mmol/L (21-32) Anion Gap 8 (6-14) Blood Urea Nitrogen 47 mg/dL (7-20) Creatinine 1.7 mg/dL (0.6-1.0) Estimated GFR (Cockcroft-Gault) 31.1 Glucose Level 219 mg/dL (70-99) Calcium Level 9.1 mg/dL (8.5-10.1) Test 12/11/18 11:35 12/11/18 16:46 Glucose (Fingerstick) 233 mg/dL (70-99) 112 mg/dL (70-99) Assessment and Plan Assessmemt and Plan Problems Medical Problems: (1) Chest pain Status: Acute (2) Uncontrolled type 2 diabetes mellitus Status: Acute Comment Review of Relevant I have reviewed the following items jim (where applicable) has been applied. Labs Laboratory Tests Test 12/10/18 00:35 12/10/18 04:30 12/10/18 05:18 12/10/18 07:34 White Blood Count 9.8 x10^3/uL (4.0-11.0) Red Blood Count 4.42 x10^6/uL (3.50-5.40) Hemoglobin 11.0 g/dL (12.0-15.5) Hematocrit 34.5 % (36.0-47.0) Mean Corpuscular Volume 78 fL (79-100) Mean Corpuscular Hemoglobin 25 pg (25-35) Mean Corpuscular Hemoglobin Concent 32 g/dL (31-37) Red Cell Distribution Width 17.3 % (11.5-14.5) Platelet Count 297 x10^3/uL (140-400) Neutrophils (%) (Auto) 56 % (31-73) Lymphocytes (%) (Auto) 31 % (24-48) Monocytes (%) (Auto) 8 % (0-9) Eosinophils (%) (Auto) 4 % (0-3) Basophils (%) (Auto) 1 % (0-3) Neutrophils # (Auto) 5.5 x10^3uL (1.8-7.7) Lymphocytes # (Auto) 3.1 x10^3/uL (1.0-4.8) Monocytes # (Auto) 0.8 x10^3/uL (0.0-1.1) Eosinophils # (Auto) 0.4 x10^3/uL (0.0-0.7) Basophils # (Auto) 0.1 x10^3/uL (0.0-0.2) Sodium Level 132 mmol/L (136-145) Potassium Level 5.9 mmol/L (3.5-5.1) Chloride Level 92 mmol/L (98-107) Carbon Dioxide Level 33 mmol/L (21-32) Anion Gap 7 (6-14) Blood Urea Nitrogen 42 mg/dL (7-20) Creatinine 1.8 mg/dL (0.6-1.0) Estimated GFR (Cockcroft-Gault) 29.1 BUN/Creatinine Ratio 23 (6-20) Glucose Level 518 mg/dL (70-99) Hemoglobin A1c 14.6 % (4.8-5.6) Calcium Level 9.5 mg/dL (8.5-10.1) Magnesium Level 1.9 mg/dL (1.8-2.4) Total Bilirubin 0.2 mg/dL (0.2-1.0) Aspartate Amino Transf (AST/SGOT) 13 U/L (15-37) Alanine Aminotransferase (ALT/SGPT) 21 U/L (14-59) Alkaline Phosphatase 146 U/L (46-116) Troponin I Quantitative < 0.017 ng/mL (0.000-0.055) < 0.017 ng/mL (0.000-0.055) EU-Alb-P-Type Natriuretic Peptide 394 pg/mL (0-124) Total Protein 8.2 g/dL (6.4-8.2) Albumin 3.3 g/dL (3.4-5.0) Albumin/Globulin Ratio 0.7 (1.0-1.7) Lipase 122 U/L (73-393) Glucose (Fingerstick) 304 mg/dL (70-99) 340 mg/dL (70-99) Test 12/10/18 07:48 12/10/18 08:55 12/10/18 11:35 12/10/18 16:45 Sodium Level 135 mmol/L (136-145) Potassium Level 4.5 mmol/L (3.5-5.1) Chloride Level 97 mmol/L (98-107) Carbon Dioxide Level 26 mmol/L (21-32) Anion Gap 12 (6-14) Blood Urea Nitrogen 47 mg/dL (7-20) Creatinine 2.0 mg/dL (0.6-1.0) Estimated GFR (Cockcroft-Gault) 25.8 Glucose Level 315 mg/dL (70-99) Calcium Level 9.0 mg/dL (8.5-10.1) Troponin I Quantitative < 0.017 ng/mL (0.000-0.055) Triglycerides Level 285 mg/dL (0-150) Cholesterol Level 205 mg/dL (0-200) LDL Cholesterol, Calculated 112 mg/dL (0-100) VLDL Cholesterol, Calculated 57 mg/dL (0-40) Non-HDL Cholesterol Calculated 169 mg/dL (0-129) HDL Cholesterol 36 mg/dL (40-60) Cholesterol/HDL Ratio 5.7 Glucose (Fingerstick) 247 mg/dL (70-99) 151 mg/dL (70-99) Test 12/10/18 20:06 12/11/18 02:20 12/11/18 04:15 12/11/18 07:19 Glucose (Fingerstick) 272 mg/dL (70-99) 236 mg/dL (70-99) Urine Collection Type Unknown Urine Color Yellow Urine Clarity Cloudy Urine pH 5.5 Urine Specific [place] 1.015 Urine Protein 30 mg/dL (NEG-TRACE) Urine Glucose (UA) 100 mg/dL (NEG) Urine Ketones (Stick) Negative mg/dL (NEG) Urine Blood Large (NEG) Urine Nitrite Negative (NEG) Urine Bilirubin Negative (NEG) Urine Urobilinogen Dipstick 0.2 mg/dL (0.2 mg/dL) Urine Leukocyte Esterase Large (NEG) Urine RBC Fobs /HPF (0-2) Urine WBC Tntc /HPF (0-4) Urine Bacteria Many /HPF (0-FEW) Sodium Level 136 mmol/L (136-145) Potassium Level 4.6 mmol/L (3.5-5.1) Chloride Level 96 mmol/L (98-107) Carbon Dioxide Level 32 mmol/L (21-32) Anion Gap 8 (6-14) Blood Urea Nitrogen 47 mg/dL (7-20) Creatinine 1.7 mg/dL (0.6-1.0) Estimated GFR (Cockcroft-Gault) 31.1 Glucose Level 219 mg/dL (70-99) Calcium Level 9.1 mg/dL (8.5-10.1) Test 12/11/18 11:35 12/11/18 16:46 Glucose (Fingerstick) 233 mg/dL (70-99) 112 mg/dL (70-99) Laboratory Tests Test 12/10/18 20:06 12/11/18 02:20 12/11/18 04:15 12/11/18 07:19 Glucose (Fingerstick) 272 mg/dL (70-99) 236 mg/dL (70-99) Urine Collection Type Unknown Urine Color Yellow Urine Clarity Cloudy Urine pH 5.5 Urine Specific [place] 1.015 Urine Protein 30 mg/dL (NEG-TRACE) Urine Glucose (UA) 100 mg/dL (NEG) Urine Ketones (Stick) Negative mg/dL (NEG) Urine Blood Large (NEG) Urine Nitrite Negative (NEG) Urine Bilirubin Negative (NEG) Urine Urobilinogen Dipstick 0.2 mg/dL (0.2 mg/dL) Urine Leukocyte Esterase Large (NEG) Urine RBC Fobs /HPF (0-2) Urine WBC Tntc /HPF (0-4) Urine Bacteria Many /HPF (0-FEW) Sodium Level 136 mmol/L (136-145) Potassium Level 4.6 mmol/L (3.5-5.1) Chloride Level 96 mmol/L (98-107) Carbon Dioxide Level 32 mmol/L (21-32) Anion Gap 8 (6-14) Blood Urea Nitrogen 47 mg/dL (7-20) Creatinine 1.7 mg/dL (0.6-1.0) Estimated GFR (Cockcroft-Gault) 31.1 Glucose Level 219 mg/dL (70-99) Calcium Level 9.1 mg/dL (8.5-10.1) Test 12/11/18 11:35 12/11/18 16:46 Glucose (Fingerstick) 233 mg/dL (70-99) 112 mg/dL (70-99) Medications Current Medications Morphine Sulfate (Morphine Sulfate) 2 mg PRN Q15MIN PRN IV/SQ PAIN GREATER THAN 3/10; Start 12/10/18 at 00:00; Stop 12/10/18 at 23:59; Status DC Sodium Chloride 1,000 ml @ 100 mls/hr Q10H IV Last administered on 12/10/18 00:24; Start 12/10/18 at 00:30; Stop 12/10/18 at 10:29; Status DC Sodium Polystyrene Sulfonate (Kayexalate) 15 gm 1X ONCE PO Last administered on 12/10/18at 01:41; Start 12/10/18 at 02:00; Stop 12/10/18 at 02:01; Status DC Insulin Human Regular (HumuLIN R VIAL) 10 unit 1X ONCE IV Last administered on 12/10/18at 01:39; Start 12/10/18 at 02:00; Stop 12/10/18 at 02:01; Status DC Ondansetron HCl (Zofran) 4 mg PRN Q8HRS PRN IV NAUSEA/VOMITING 1ST CHOICE; Start 12/10/18 at 02:00; Stop 12/11/18 at 01:59; Status DC Morphine Sulfate (Morphine Sulfate) 2 mg PRN Q2HR PRN IV SEVERE PAIN; Start at 02:00; Stop 12/11/18 at 01:59; Status DC Sodium Chloride 1,000 ml @ 100 mls/hr Q10H IV Last administered on 12/10/18 11:19; Start 12/10/18 at 02:00; Stop 12/10/18 at 15:41; Status DC Nitroglycerin (Nitrostat) 0.4 mg PRN Q5MIN PRN SL CHEST PAIN; Start 12/10/18 at 02:00; Stop 12/11/18 at 01:59; Status DC Insulin Human Lispro (HumaLOG) 0-7 UNITS TIDWMEALS SQ Last administered on 12/11at 12:16; Start 12/10/18 at 08:00 Dextrose (Dextrose 50%-Water Syringe) 12.5 gm PRN Q15MIN PRN IV SEE COMMENTS; Start 12/10/18 at 02:00 Alprazolam (Xanax) 0.5 mg PRN Q6HRS PRN PO ANXIETY / AGITATION; Start 12/10/18 at 10:15 Amlodipine Besylate (Norvasc) 5 mg DAILY PO Last administered on 12/11/18 08: 48; Start 12/10/18 at 11:00 Apixaban (Eliquis) 5 mg BID PO Last administered on 12/11/18 08:49; Start at 11:00 Aspirin (Children'S Aspirin) 81 mg DAILY PO Last administered on 12/11/18 08: 48; Start 12/10/18 at 11:00 Atorvastatin Calcium (Lipitor) 40 mg QHS PO Last administered on 12/10/18 20: 08; Start 12/10/18 at 21:00 Bumetanide (Bumex) 1 mg BID92 PO Last administered on 12/11/18 14:48; Start at 14:00 Clonidine HCl (Catapres) 0.1 mg PRN Q6HRS PRN PO HYPERTENSION, SEE COMMENTS; Start 12/10/18 at 10:15 Docusate Sodium (Colace) 100 mg BID PO Last administered on 12/11/18 08:47; Start 12/10/18 at 11:00 Insulin Human Lispro (HumaLOG) 55 units TIDAC SQ Last administered on 12:16; Start 12/10/18 at 11:30 Albuterol/ Ipratropium (Duoneb) 3 ml PRN QID PRN NEB SHORTNESS OF BREATH; Start 12/10/18 at 10:15; Stop 12/10/18 at 10:27; Status DC Lubiprostone (Amitiza) 8 mcg BIDWMEALS PO Last administered on 12/11/18 08:47 ; Start 12/10/18 at 11:00 Metoprolol Succinate (Toprol Xl) 50 mg DAILY PO Last administered on 12/11/18 08:49; Start 12/10/18 at 11:00 Nitroglycerin (Nitrostat) 0.4 mg PRN Q5MIN PRN SL CP RATING > 1/10; Start 12/10 at 10:15 Nystatin (Nystop) 1 sally BID TP Last administered on 12/11/18 08:49; Start at 11:00 Ondansetron HCl (Zofran Odt) 4 mg PRN Q6HRS PRN PO nausea; Start 12/10/18 at 10 :15 Senna/Docusate Sodium (Senna Plus) 1 tab BID PO Last administered on 12/11/18 08:48; Start 12/10/18 at 11:00 Albuterol Sulfate (Ventolin Neb Soln) 2.5 mg PRN Q6HRS PRN NEB SHORTNESS OF BREATH; Start 12/10/18 at 10:30 Non-Formulary Medication (Dulaglutide (Trulicity)) 0.75 mg QFR SUBCUT ; Start at 16:00; Status UNV Duloxetine HCl (Cymbalta) 60 mg BID PO Last administered on 12/11/18 08:47; Start 12/10/18 at 11:00 Pantoprazole Sodium (Protonix) 40 mg BIDAC PO Last administered on 12/11/18 08 :48; Start 12/10/18 at 11:00 Non-Formulary Medication (Fluconazole (Diflucan)) 150 mg DAILY PO ; Start at 09:00; Status UNV Fluticasone Propionate (Flonase) 2 spray PRN DAILY PRN NS ALLERGIES; Start at 09:00 Acetaminophen/ Hydrocodone Bitart (Lortab 10/325) 1 tab PRN Q6HRS PRN PO PAIN Last administered on 12/10/18 10:44; Start 12/10/18 at 10:30 Insulin Glargine (Lantus) 75 units BID SQ Last administered on 12/11/18 08:59 ; Start 12/10/18 at 11:00 Levothyroxine Sodium (Synthroid) 50 mcg DAILY06 PO Last administered on 05:32; Start 12/10/18 at 11:00 Oxybutynin Chloride (Ditropan) 2.5 mg BID PO Last administered on 12/11/18 08: 48; Start 12/10/18 at 11:00 Pregabalin (Lyrica) 150 mg BID PO Last administered on 12/11/18 08:47; Start 12/10/18 at 11:00 Spironolactone (Aldactone) 25 mg DAILY PO Last administered on 12/10/18at 14:57 ; Start 12/10/18 at 11:00 Tizanidine HCl (Zanaflex) 4 mg QHS PO Last administered on 12/10/18 20:08; Start 12/10/18 at 21:00 Info (Anti-Coagulation Monitoring By Pharmacy) 1 each PRN DAILY PRN MC SEE COMMENTS Last administered on 12/11/18 10:51; Start 12/10/18 at 10:45 Ferrous Sulfate (Iron Oral Solution) 300 mg BIDWMEALS PO Last administered on 08:46; Start 12/10/18 at 17:00 Barium Sulfate (Liquid E-Z Paque) 355 ml 1X ONCE PO ; Start 12/10/18 at 13:30; Stop 12/10/18 at 13:31; Status DC Barium Sulfate (E-Z-Hd) 340 gm 1X ONCE PO ; Start 12/10/18 at 13:30; Stop 12/10 at 13:31; Status DC Simethicone/ Sodium Bicarb/ Citric Ac (E-Z-Gas) 1 packet 1X ONCE PO ; Start at 13:30; Stop 12/10/18 at 13:31; Status DC Barium Sulfate (E-Z Disk) 700 mg 1X ONCE PO ; Start 12/10/18 at 13:30; Stop at 13:31; Status DC Polyethylene Glycol (miraLAX PACKET) 17 gm PRN DAILY PRN PO CONSTIPATION 1ST CHOICE; Start 12/11/18 at 16:45 Bisacodyl (Dulcolax Tab) 5 mg PRN DAILY PRN PO CONSTIPATION 2ND CHOICE; Start 12/11/18 at 16:45 Active Scripts Active Ondansetron Odt (Ondansetron) 4 Mg Tab.rapdis 1 Tab PO PRN Q6-8HRS Levemir Flextouch (Insulin Detemir) 100 Unit/1 Ml Insuln.pen 75 Unit SQ BID 30 Days Humalog (Insulin Lispro) 100 Unit/1 Ml Insuln.pen 55 Unit SQ TIDAC 30 Days Diflucan (Fluconazole) 150 Mg Tablet 150 Mg PO DAILY 3 Days Cipro (Ciprofloxacin Hcl) 500 Mg Tablet 1 Tab PO DAILY Nystop (Nystatin) 60 Gm Powder 1 Sally TP BID 30 Days Colace (Docusate Sodium) 100 Mg Capsule 100 Mg PO BID Senna-Time S Tablet (Sennosides/Docusate Sodium) 1 Each Tablet 1 Tab PO BID Amitiza (Lubiprostone) 8 Mcg Capsule 8 Mcg PO BIDWMEALS Nitrostat (Nitroglycerin) 0.4 Mg Tab.subl 0.4 Mg SL PRN Q5MIN PRN 30 Days Reported [place] 10-325 Tablet (Acetaminophen/Hydrocodone Bitart) 1 Each Tablet 1 Tab PO PRN Q6HRS PRN Tizanidine Hcl 4 Mg Tablet 1 Tab PO QHS Spironolactone 25 Mg Tablet 1 Tab PO DAILY Bumetanide 1 Mg Tablet 1 Tab PO BID92 Duloxetine Hcl 60 Mg Capsule.dr 60 Mg PO BID Trulicity (Dulaglutide) 0.75 Mg/0.5 Ml Pen.injctr 0.75 Mg SUBCUT QFR Amlodipine Besylate 5 Mg Tablet 5 Mg PO DAILY Xanax (Alprazolam) 0.5 Mg Tablet 0.5 Mg PO PRN Q6HRS PRN Ventolin Hfa Inhaler (Albuterol Sulfate) 18 Gm Hfa.aer.ad 2 Puff INH PRN Q4HRS PRN Oxybutynin Chloride Er (Oxybutynin Chloride) 5 Mg Tab.er.24 1 Tab PO DAILY Duoneb 0.5-3(2.5) Mg/3 Ml (Albuterol/Ipratropium) 3 Ml Ampul.neb 3 Ml NEB PRN QID PRN Flonase Allergy Relief (Fluticasone Propionate) 9.9 Ml [place].susp 2 Sprays NS PRN PRN Clonidine Hcl 0.1 Mg Tablet 1 Tab PO PRN PRN When SBP >150 Eliquis (Apixaban) 5 Mg Tablet 5 Mg PO BID Metoprolol Succinate ( Xl ) (Metoprolol Succinate) 25 Mg Tab.er.24h 2 Tab PO DAILY Lyrica (Pregabalin) 150 Mg Capsule 1 Cap PO BID Atorvastatin Calcium 20 Mg Tablet 2 Tab PO HS Nexium Capsule (Esomeprazole Magnesium) 40 Mg Capsule.dr 1 Cap PO BID Aspirin 81 Mg Tab.chew 1 Tab PO DAILY Levothyroxine Sodium 50 Mcg Tablet 1 Tab PO DAILY Vitals/I & O Vital Sign - Last 24 Hours 12/10/18 12/10/18 12/10/18 12/10/18 17:02 19:31 19:44 22:44 Temp 98.0 97.8 98.0 97.8 Pulse 69 59 Resp 18 18 B/P (MAP) 119/59 (79) 114/60 (78) Pulse Ox 97 96 93 O2 Delivery Room Air Room Air Room Air Room Air 12/11/18 12/11/18 12/11/18 12/11/18 02:48 07:36 08:00 08:48 Temp 97.9 97.4 97.9 97.4 Pulse 68 65 65 Resp 16 16 B/P (MAP) 155/66 (95) 130/85 (100) 130/85 Pulse Ox 92 96 O2 Delivery Room Air Room Air Nasal Cannula O2 Flow Rate 2.0 12/11/18 12/11/18 12/11/18 08:49 10:43 14:53 Temp 97.2 96.8 97.2 96.8 Pulse 65 68 70 Resp 16 16 B/P (MAP) 130/85 104/83 (90) 129/56 (80) Pulse Ox 97 94 O2 Delivery Room Air Room Air Intake and Output 12/10/18 12/10/18 12/11/18 15:00 23:00 07:00 Intake Total 1000 ml 1100 ml 800 ml Output Total 350 ml 500 ml Balance 1000 ml 750 ml 300 ml JON PIPER MD Dec 11, 2018 16:57
--- NOTE | 2018-12-11 18:09 | PDOC ---
CARDIOLOGY PROGRESS NOTE SUBJECTIVE: Patient stated that she still feels the lower chest pain/upper abdominal pain as yesterday that has improved from first arrival. She denies any palpitations associated. She does admit dizziness related to head movement and lower extremity edema that is worse on the right. OBJECTIVE: Vital SIgns: Vital Signs Date Time Temp Pulse Resp B/P (MAP) Pulse Ox O2 Delivery O2 Flow Rate FiO2 12/11/18 14:53 96.8 70 16 129/56 (80) 94 Room Air 96.8 12/11/18 08:00 2.0 I & O Intake and Output 12/11/18 07:00 Intake Total 2900 ml Output Total 850 ml Balance 2050 ml Intake Oral 1600 ml IV Total 1300 ml Output Urine Total 850 ml # Voids 1 Objective: GEN: pleasant, NAD HEENT: benign HEART: RRR w/o murmur rub or gallop CHEST: TTP on lower sternum LUNGS: Decreased breath sounds heart through out Abdomen: Distended, ttp in the RUQ and epigastric region EXTREMITIES: B/L lower extremity edema, worse on right compared to left CURRENT MEDICATIONS: ASA 81mg daily Atorvastatin Toprol XL 50mg daily Bumex 1mg bid Spironolactone 25mg daily Amlodipine 5mg daily ASSESSMENT: 1. Atypical chest pain (related to a esophageal spasm, dysphagia, Musculoskeletal cause, UTI) 2. Microcytic anemia 3. Acute on chronic diastolic HF. 4. HTN 5. Hx of PAF 6. COPD 7. Dyslipidemia 8. Hypothyroid 9. CAD s/p cath in 2017 with RCA [employer] with left to right collaterals. 10. PAD s/p CTA run-off w/o significant disease in 2018. 11. DM2 PLAN: 1. UTI tx per primary. 2. Continue metoprolol, spironolactone, amlodipine. 3. Awaiting any GI w/u but currently on Apixiban. Continue same. 4. Continue statin therapy. 5. Her severe bilateral LE edema is related to most likely lymphedema and venous insufficiency (doubt DVT as she had a normal scan in 09/2018 and has been on anticoagulation). She also has diastolic HF. Diuretics have not improved her LE edema. Plan for lymphedema wraps, change diuretic to IV lasix. Close monitoring of renal function. LAITH ABBOTT MD Dec 11, 2018 18:09
[2018-12-11] MEDS ORDERED: FUROSEMIDE 40 MG/4 ML VIAL. IVP ONE (18:15)
[2018-12-11 19:00] VITALS: BP 159/92
[2018-12-11] MEDS: ATORVASTATIN CALCIUM 40 MG TABLET. PO SCH (20:09)
[2018-12-11] MEDS: tiZANidine 4 MG TABLET. PO SCH (20:10)
[2018-12-11] MEDS: HYDROcodone/APAP 10/325 1 TAB TABLET PO PRN (20:11)
[2018-12-11 23:00] VITALS: BP_SYST 150; BP_SYST 172; BP_DIAS 82; BP_DIAS 99
[2018-12-12 03:00] VITALS: BP 134/95
[2018-12-12] MEDS: LEVOTHYROXINE 50 MCG TABLET PO SCH (05:03)
[2018-12-12 07:11] VITALS: BP 123/71
--- NOTE | 2018-12-12 08:01 | RAD ---
Ultrasound venous Doppler INDICATION:RT LOWER LEG SWELLING REDNESS TECHNIQUE: Grayscale, color Doppler and spectral waveform ultrasound images of the right lower extremity deep veins obtained. COMPARISON: None FINDINGS: The interrogated deep veins are compressible and demonstrate evidence of blood flow with normal respiratory variation and response to augmentation. IMPRESSION: No sonographic evidence of acute DVT of the right lower extremity deep veins. Electronically signed by: Hernán Fernandez DO (12/12/2018 7:58 AM) [facility]
[2018-12-12] MEDS: INSULIN LISPRO 300 UNITS/3 ML INSULN.PEN. SQ SCH ×4 (08:36→12:33)
[2018-12-12] MEDS: INSULIN GLARGINE 300 UNITS/3 ML INSULN.PEN. SQ SCH (08:41)
[2018-12-12] MEDS: DULoxetine HCL 30 MG CAPSULE.DR PO SCH (08:41)
[2018-12-12] MEDS: APIXABAN 5 MG TABLET. PO SCH (08:41)
[2018-12-12] MEDS: LUBIPROSTONE 8 MCG CAPSULE PO SCH ×2 (08:42→17:04)
[2018-12-12] MEDS: PREGABALIN 75 MG CAPSULE PO SCH ×2 (08:42→09:40)
[2018-12-12] MEDS: amLODIPine BESYLATE 5 MG TABLET PO SCH (08:43)
[2018-12-12] MEDS: METOPROLOL SUCC 24HR ER 50 MG TAB.ER.24H. PO SCH (08:43)
[2018-12-12] MEDS: ASPIRIN CHEWABLE 81 MG TABLET. PO SCH (08:43)
[2018-12-12] MEDS: OXYBUTYNIN CHLORIDE 5 MG TABLET PO SCH (08:44)
[2018-12-12] MEDS: FERROUS SULFATE ORAL 300 MG/5 ML SOLUTION. PO SCH ×2 (08:44→17:04)
[2018-12-12] MEDS: PANTOPRAZOLE 40 MG TABLET.DR. PO SCH ×2 (08:44→17:04)
[2018-12-12] MEDS: DOCUSATE SODIUM 100 MG CAPSULE. PO SCH (08:45)
[2018-12-12] MEDS: SENNOSIDES/DOCUSATE 8.6/50MG TABLET. PO SCH (08:45)
[2018-12-12] MEDS: NYSTATIN TOPICAL POWDER 15GM BOTTLE. TP SCH (08:46)
[2018-12-12] MEDS: SPIRONOLACTONE 25 MG TABLET PO SCH (08:51)
[2018-12-12] MEDS ORDERED: CIPROFLOXACIN HCL 250 MG TABLET. PO SCH (09:30)
[2018-12-12 11:05] VITALS: BP 144/80
[2018-12-12] MEDS: HYDROcodone/APAP 10/325 1 TAB TABLET PO PRN (12:27)
[2018-12-12] MEDS ORDERED: CIPR250T30 PO (13:13)
--- NOTE | 2018-12-12 13:15 | SNU/HH DC ---
DISCHARGE WITH HOME HEALTH DISCHARGE INFORMATION: Discharge Date: Dec 12, 2018 Final Diagnosis: Problems Medical Problems: (1) Chest pain Status: Acute (2) Uncontrolled type 2 diabetes mellitus Status: Acute Condition on Discharge: Stable HOME HEALTH: Face to Face: I certify this patient is under my care and that I, or a nurse practitioner or physician's quality control assistant working with me, had a face to face encounter that meets the physician face to face encounter requirements with this patient on []. Medical Complications: DM, HTN Physical Therapy For: Evalulation/Treatment Occupational Therapy For: Evaluation/Treatment Home Health Aide For: Self-care DIRECTOR ORANGE For: Community Resources POST DISCHARGE ORDERS: Activity Instructions for Disc: Activity as tolerated Weight Bearing Status after Di: Full weight bearing Bathing Instructions: No Tub Bath until see DIET AFTER DISCHARGE: ADA Wound/Incision Care: Change dressing CHECKS AFTER DISCHARGE: Checks after discharge: Check blood sugar, ac/hs TREATMENT/EQUIPMENT ORDERS: Adaptive Equipment Issued: Cane Discharge Respiratory Equipmen: Oxygen CERTIFICATION STATEMENT: Certification Statement: Certification Statement: Based on the above finding, I certify that this patient is confined to the home and needs intermittent [place] [facility] care, physical therapy and/or speech therapy, or continues to need occupational therapy.~ This patient is under my care, and I have initiated the establishment of the plan of care.~ This patient will be followed by myself or a community physician who will periodically review the plan of care. Home Meds Active Scripts Ciprofloxacin Hcl (CIPRO) 250 Mg Tablet, 500 MG PO BID for UTI for 5 Days, #20 TAB Prov:JON PIPER MD 12/12/18 Ondansetron (ONDANSETRON ODT) 4 Mg Tab.rapdis, 1 TAB PO PRN Q6-8HRS, #16 TAB Prov:SERGIO ZARCO DO 10/23/18 Insulin Detemir (Levemir Flextouch) 100 Unit/1 Ml Insuln.pen, 75 UNIT SQ BID for DM for 30 Days, #3 SYR Prov:ELSY EDWARDS MD 10/16/18 Insulin Lispro (HUMALOG) 100 Unit/1 Ml Insuln.pen, 55 UNIT SQ TIDAC for Diabetes for 30 Days, #3 SYR Prov:ELSY EDWARDS MD 10/16/18 Fluconazole (DIFLUCAN) 150 Mg Tablet, 150 MG PO DAILY for groin infection for 3 Days, #3 TAB Prov:NIKKIE GODINEZ MD 09/02/18 Nystatin (NYSTOP) 60 Gm Powder, 1 KERON TP BID for fungus groin for 30 Days, MISC 3 Refills Prov:NIKKIE GODINEZ MD 09/02/18 Docusate Sodium (COLACE) 100 Mg Capsule, 100 MG PO BID, #10 CAP Prov:JOSE LAWTON MD 03/24/17 Sennosides/Docusate Sodium (SENNA-TIME S TABLET) 1 Each Tablet, 1 TAB PO BID, # 10 TAB Prov:JOSE LAWTON MD 03/24/17 Lubiprostone (AMITIZA) 8 Mcg Capsule, 8 MCG PO BIDWMEALS, #60 CAP 11 Refills Prov:Graciela ESPINOZA MD 01/21/17 Nitroglycerin (NITROSTAT) 0.4 Mg Tab.subl, 0.4 MG SL PRN Q5MIN PRN for CP RATING > 1/10 for 30 Days Prov:ESTHELA JEREZ MD 05/02/16 Reported Medications Hydrocodone/Apap 10-325 (NORCO 10-325 TABLET) 1 Each Tablet, 1 TAB PO PRN Q6HRS PRN for PAIN, TAB 0 Refills 10/13/18 Tizanidine Hcl (TIZANIDINE HCL) 4 Mg Tablet, 1 TAB PO QHS for chr back pain, # 30 TAB 10/13/18 Spironolactone (SPIRONOLACTONE) 25 Mg Tablet, 1 TAB PO DAILY, #30 TAB 11/05/17 Bumetanide (BUMETANIDE) 1 Mg Tablet, 1 TAB PO BID92, #60 TAB 11/05/17 Duloxetine Hcl (DULOXETINE HCL) 60 Mg Capsule.dr, 60 MG PO BID 10/26/17 Dulaglutide (Trulicity) 0.75 Mg/0.5 Ml Pen.injctr, 0.75 MG SUBCUT QFR 10/26/17 Amlodipine Besylate (AMLODIPINE BESYLATE) 5 Mg Tablet, 5 MG PO DAILY 10/26/17 Alprazolam (XANAX) 0.5 Mg Tablet, 0.5 MG PO PRN Q6HRS PRN for ANXIETY / AGITATION, TAB 0 Refills 06/13/17 Albuterol Sulfate (VENTOLIN HFA INHALER) 18 Gm Hfa.aer.ad, 2 PUFF INH PRN Q4HRS PRN for SHORTNESS OF BREATH, INHALER 0 Refills 03/19/17 Oxybutynin Chloride (OXYBUTYNIN CHLORIDE ER) 5 Mg Tab.er.24, 1 TAB PO DAILY, # 30 TAB 5 Refills 03/19/17 Ipratropium/Albuterol Sulfate (DUONEB 0.5-3(2.5) MG/3 ML) 3 Ml Ampul.neb, 3 ML NEB PRN QID PRN for SHORTNESS OF BREATH, EACH 03/19/17 Fluticasone Propionate (Flonase Allergy Relief) 9.9 Ml [place].susp, 2 SPRAYS NS PRN PRN for ALLERGIES, BOTTLE 03/19/17 Clonidine Hcl (CLONIDINE HCL) 0.1 Mg Tablet, 1 TAB PO PRN PRN for HYPERTENSION, SEE COMMENTS, #30 TAB 2 Refills When SBP >150 03/19/17 Apixaban (ELIQUIS) 5 Mg Tablet, 5 MG PO BID, TAB 03/19/17 Metoprolol Succinate (METOPROLOL SUCCINATE ( XL )) 25 Mg Tab.er.24h, 2 TAB PO DAILY, #30 TAB 5 Refills 03/19/17 Pregabalin (LYRICA) 150 Mg Capsule, 1 CAP PO BID, #60 CAP 5 Refills 10/07/16 Atorvastatin Calcium (ATORVASTATIN CALCIUM) 20 Mg Tablet, 2 TAB PO HS, #30 TAB 5 Refills 10/06/16 Esomeprazole Magnesium (NEXIUM CAPSULE) 40 Mg Capsule.dr, 1 CAP PO BID, #30 CAP 5 Refills 10/06/16 Aspirin (ASPIRIN) 81 Mg Tab.chew, 1 TAB PO DAILY, #30 TAB 3 Refills 10/06/16 Levothyroxine Sodium (LEVOTHYROXINE SODIUM) 50 Mcg Tablet, 1 TAB PO DAILY, #30 TAB 5 Refills 10/22/15 Discontinued Scripts Ciprofloxacin Hcl (CIPRO) 500 Mg Tablet, 1 TAB PO DAILY for uti, #7 TAB Prov:NIKKIE GODINEZ MD 09/02/18 JON PIPER MD Dec 12, 2018 13:15
--- NOTE | 2018-12-12 13:28 | PDOC3 ---
Discharge Summary Visit Information Date of Admission: Dec 10, 2018 Date of Discharge: Dec 12, 2018 Admitting Diagnosis Comment: Chest pain with negative troponins serially on 3 occasions History of coronary artery disease status post PCI and stents on 7 occasions as per history Morbid obesity with a BMI of 48 Uncontrolled diabetes mellitus type 2 Chronic kidney disease stage III History of atrial fibrillation on chronic anticoagulation with Eliquis History of CVA in the past UTI Final Diagnosis Problems Medical Problems: (1) Chest pain ACS ruled out Status: Acute (2) Uncontrolled type 2 diabetes mellitus Status: Acute Brief Hospital Course Allergies Allergies Coded Allergies Type Severity Reaction Last Updated Verified No Known Drug Allergies 12/23/16 No Vital Signs Vital Signs Date Time Temp Pulse Resp B/P (MAP) Pulse Ox O2 Delivery O2 Flow Rate FiO2 12/12/18 11:05 97.9 66 24 144/80 (101) 100 Nasal Cannula 3.0 97.9 Lab Results Laboratory Tests Test 12/10/18 16:45 12/10/18 20:06 12/11/18 02:20 12/11/18 04:15 Glucose (Fingerstick) 151 mg/dL (70-99) 272 mg/dL (70-99) Urine Collection Type Unknown Urine Color Yellow Urine Clarity Cloudy Urine pH 5.5 Urine Specific [place] 1.015 Urine Protein 30 mg/dL (NEG-TRACE) Urine Glucose (UA) 100 mg/dL (NEG) Urine Ketones (Stick) Negative mg/dL (NEG) Urine Blood Large (NEG) Urine Nitrite Negative (NEG) Urine Bilirubin Negative (NEG) Urine Urobilinogen Dipstick 0.2 mg/dL (0.2 mg/dL) Urine Leukocyte Esterase Large (NEG) Urine RBC Fobs /HPF (0-2) Urine WBC Tntc /HPF (0-4) Urine Bacteria Many /HPF (0-FEW) Sodium Level 136 mmol/L (136-145) Potassium Level 4.6 mmol/L (3.5-5.1) Chloride Level 96 mmol/L (98-107) Carbon Dioxide Level 32 mmol/L (21-32) Anion Gap 8 (6-14) Blood Urea Nitrogen 47 mg/dL (7-20) Creatinine 1.7 mg/dL (0.6-1.0) Estimated GFR (Cockcroft-Gault) 31.1 Glucose Level 219 mg/dL (70-99) Calcium Level 9.1 mg/dL (8.5-10.1) Test 12/11/18 07:19 12/11/18 11:35 12/11/18 16:46 12/11/18 20:08 Glucose (Fingerstick) 236 mg/dL (70-99) 233 mg/dL (70-99) 112 mg/dL (70-99) 178 mg/dL (70-99) Test 12/12/18 07:01 12/12/18 11:35 Glucose (Fingerstick) 279 mg/dL (70-99) 193 mg/dL (70-99) Laboratory Tests Test 12/11/18 16:46 12/11/18 20:08 12/12/18 07:01 12/12/18 11:35 Glucose (Fingerstick) 112 mg/dL (70-99) 178 mg/dL (70-99) 279 mg/dL (70-99) 193 mg/dL (70-99) Brief Hospital Course Ms. Mari is a 58 old female who presented with chest discomfort for which she was seen consultation by Cardiology, patient has very atypical features for her chest discomfort. In a GI consultation was requested since this sounded more of a esophageal spasm rather than a true cardiac event. Patient also has history of long-standing peripheral vascular disease with venous insufficiency and related changes on her skin her right leg is more edematous than the left ultrasound did not reveal any acute thrombosis which would've been unlikely given the patient is chronically on Eliquis. She was deemed appropriate for discharge with instructions to follow-up in the outpatient with GI for possible EGD. The patient also was diagnosed with a UTI as part of her hospital stay. She was started on ciprofloxacin and will be dismissed to complete a course at home. CONCERNS WERE ADDRESSED TO THE BEST OF MY ABILITIES. Discharge Information Condition at Discharge: Improved Follow Up: Weeks Disposition/Orders: D/C to Home Scheduled Amlodipine Besylate (Amlodipine Besylate) 5 Mg Tablet, 5 MG PO DAILY, (Reported) Entered as Reported by: JUANITA RICHARDSON on 10/26/17 0009 Last Action: Continued on 12/10/18 1016 by JON PIPER MD Apixaban (Eliquis) 5 Mg Tablet, 5 MG PO BID, (Reported) Entered as Reported by: Renzo Valenzuela on 03/19/17 1210 Last Action: Continued on 12/10/18 1016 by JON PIPER MD Aspirin (Aspirin) 81 Mg Tab.chew, 1 TAB PO DAILY, #30 Ref 3 (Reported) Entered as Reported by: CARLO KHAN on 10/06/162010 Last Action: Continued on 12/10/18 1016 by JON PIPER MD Atorvastatin Calcium (Atorvastatin Calcium) 20 Mg Tablet, 2 TAB PO HS, #30 Ref 5 (Reported) Entered as Reported by: CARLO KHAN on 10/06/162010 Last Action: Continued on 12/10/18 1016 by JON PIPER MD Bumetanide (Bumetanide) 1 Mg Tablet, 1 TAB PO BID92, #60 (Reported) Entered as Reported by: JUDITH GOODWIN on 11/05/17 1533 Last Action: Continued on 12/10/18 1016 by JON PIPER MD Ciprofloxacin Hcl (Cipro) 250 Mg Tablet, 500 MG PO BID for UTI for 5 Days, #20 Prescribed by: JON PIPER MD on 12/12/18 1313 Docusate Sodium (Colace) 100 Mg Capsule, 100 MG PO BID, #10 Prescribed by: JOSE LAWTON MD on 03/24/17 1055 Last Action: Continued on 12/10/18 1016 by JON PIPER MD Dulaglutide (Trulicity) 0.75 Mg/0.5 Ml Pen.injctr, 0.75 MG SUBCUT QFR, (Reported ) Entered as Reported by: JUANITA RICHARDSON on 10/26/178 Last Action: Converted on 12/10/18 1017 by JON PIPER MD Duloxetine Hcl (Duloxetine Hcl) 60 Mg Capsule.dr, 60 MG PO BID, (Reported) Entered as Reported by: JUANITA RICHARDSON on 10/26/178 Last Action: Converted on 12/10/18 1017 by JON PIPER MD Esomeprazole Magnesium (Nexium Capsule) 40 Mg Capsule.dr, 1 CAP PO BID, #30 Ref 5 (Reported) Entered as Reported by: CARLO KHAN on 10/06/162010 Last Action: Converted on 12/10/18 1017 by JON PIPER MD Fluconazole (Diflucan) 150 Mg Tablet, 150 MG PO DAILY for groin infection for 3 Days, #3 Prescribed by: NIKKIE GODINEZ MD on 09/02/18 1458 Last Action: Converted on 12/10/18 1017 by JON PIPER MD Insulin Detemir (Levemir Flextouch) 100 Unit/1 Ml Insuln.pen, 75 UNIT SQ BID for DM for 30 Days, #3 Prescribed by: ELSY EDWARDS MD on 10/16/18 1153 Last Action: Converted on 12/10/18 1017 by JON PIPER MD Insulin Lispro (Humalog) 100 Unit/1 Ml Insuln.pen, 55 UNIT SQ TIDAC for Diabetes for 30 Days, #3 Prescribed by: ELSY EDWARDS MD on 10/16/18 1153 Last Action: Continued on 12/10/18 1016 by JON PIPER MD Levothyroxine Sodium (Levothyroxine Sodium) 50 Mcg Tablet, 1 TAB PO DAILY, #30 Ref 5 (Reported) Entered as Reported by: Mary Kauffman on 10/22/15 2240 Last Action: Converted on 12/10/18 1017 by JON PIPER MD Lubiprostone (Amitiza) 8 Mcg Capsule, 8 MCG PO BIDWMEALS, #60 Ref 11 Prescribed by: AZRA ESPINOZA on 01/21/17 1827 Last Action: Continued on 12/10/18 1016 by JON PIPER MD Metoprolol Succinate (Metoprolol Succinate ( Xl )) 25 Mg Tab.er.24h, 2 TAB PO DAILY, #30 Ref 5 (Reported) Entered as Reported by: Renzo Valenzuela on 03/19/17 1201 Last Action: Continued on 12/10/18 1016 by JON PIPER MD Nystatin (Nystop) 60 Gm Powder, 1 KERON TP BID for fungus groin for 30 Days, Ref 3 Prescribed by: NIKKIE GODINEZ MD on 09/02/18 1448 Last Action: Continued on 12/10/18 1016 by JON PIPER MD Ondansetron (Ondansetron Odt) 4 Mg Tab.rapdis, 1 TAB PO PRN Q6-8HRS, #16 Prescribed by: SERGIO ZARCO D.O. on 10/23/18 1624 Last Action: Continued on 12/10/18 1016 by JON PIPER MD Oxybutynin Chloride (Oxybutynin Chloride Er) 5 Mg Tab.er.24, 1 TAB PO DAILY, # 30 Ref 5 (Reported) Entered as Reported by: Renzo Valenzuela on 03/19/17 1240 Last Action: Converted on 12/10/18 1017 by JON PIPER MD Pregabalin (Lyrica) 150 Mg Capsule, 1 CAP PO BID, #60 Ref 5 (Reported) Entered as Reported by: CARLO KHAN on 10/07/162027 Last Action: Converted on 12/10/18 1017 by JON PIPER MD Sennosides/Docusate Sodium (Senna-Time S Tablet) 1 Each Tablet, 1 TAB PO BID, # 10 Prescribed by: JOSE LAWTON MD on 03/24/17 1055 Last Action: Continued on 12/10/18 1016 by JON PIPER MD Spironolactone (Spironolactone) 25 Mg Tablet, 1 TAB PO DAILY, #30 (Reported) Entered as Reported by: JUDITH GOODWIN on 11/05/17 1533 Last Action: Converted on 12/10/18 1017 by JON PIPER MD Tizanidine Hcl (Tizanidine Hcl) 4 Mg Tablet, 1 TAB PO QHS for chr back pain, #30 (Reported) Entered as Reported by: STIVEN TORRES on 10/13/186 Last Action: Converted on 12/10/18 1017 by JON PIPER MD Scheduled PRN Albuterol Sulfate (Ventolin Hfa Inhaler) 18 Gm Hfa.aer.ad, 2 PUFF INH PRN Q4HRS PRN for SHORTNESS OF BREATH, Ref 0 (Reported) Entered as Reported by: Renzo Valenzuela on 03/19/17 1240 Last Action: Converted on 12/10/18 1016 by JON PIPER MD Alprazolam (Xanax) 0.5 Mg Tablet, 0.5 MG PO PRN Q6HRS PRN for ANXIETY / AGITATION, Ref 0 (Reported) Entered as Reported by: DC STEWART on 06/13/17 0235 Last Action: Continued on 12/10/18 1016 by JON PIPER MD Clonidine Hcl (Clonidine Hcl) 0.1 Mg Tablet, 1 TAB PO PRN PRN for HYPERTENSION, SEE COMMENTS, #30 Ref 2 (Reported) When SBP >150 Entered as Reported by: Renzo Valenzuela on 03/19/17 1232 Last Action: Continued on 12/10/18 1016 by JON PIPER MD Fluticasone Propionate (Flonase Allergy Relief) 9.9 Ml [place].susp, 2 SPRAYS NS PRN PRN for ALLERGIES, (Reported) Entered as Reported by: Renzo Valenzuela on 03/19/17 1232 Last Action: Converted on 12/10/18 1017 by JON PIPER MD Hydrocodone/Apap 10-325 ([place] 10-325 Tablet) 1 Each Tablet, 1 TAB PO PRN Q6HRS PRN for PAIN, Ref 0 (Reported) Entered as Reported by: STIVEN TORRES on 10/13/182135 Last Action: Converted on 12/10/18 1017 by JON PIPER MD Ipratropium/Albuterol Sulfate (Duoneb 0.5-3(2.5) Mg/3 Ml) 3 Ml Ampul.neb, 3 ML NEB PRN QID PRN for SHORTNESS OF BREATH, (Reported) Entered as Reported by: Renzo Valenzuela on 03/19/17 1240 Last Action: Continued on 12/10/18 1016 by JON PIPER MD Nitroglycerin (Nitrostat) 0.4 Mg Tab.subl, 0.4 MG SL PRN Q5MIN PRN for CP RATING > 1/10 for 30 Days Prescribed by: ESTHELA JEREZ MD on 05/02/16 1339 Last Action: Continued on 12/10/18 1016 by JON PIPER MD Discontinued Medications Ciprofloxacin Hcl (Cipro) 500 Mg Tablet, 1 TAB PO DAILY for uti, #7 Prescribed by: NIKKIE GODINEZ MD on 09/02/18 1455 Last Action: HELD on 12/10/18 1016 by MD FELIZ DUKES HECTOR M MD Dec 12, 2018 13:28
--- NOTE | 2018-12-12 13:33 | NUR ---
[facility] notified pt needs . Spoke with Laurie at [facility] and pt was discharged recently. Laurie reported she will notify [facility] if they are able to take pt after reviewing clinicals. WARENR Phoned and faxed orders to [facility]. Discussed with RN. Addendum: 12/12/18 at 1443 by VASU HYLTON SW following pt. Laurie at [facility] reported pt has been refusing PT/OT at home in the past. Fdc included on order for wound care. RN notified.
--- NOTE | 2018-12-12 13:57 | PDOC ---
Subjective: Subjective: Took a long time to eat chicken parm but doesn't want to change to a soft diet. Stooling w/o issue. Objective: Objective: Per RN - discharging today. Vital Signs: Vital Signs Date Time Temp Pulse Resp B/P (MAP) Pulse Ox O2 Delivery O2 Flow Rate FiO2 12/12/18 11:05 97.9 66 24 144/80 (101) 100 Nasal Cannula 3.0 97.9 Labs: Laboratory Tests Test 12/11/18 16:46 12/11/18 20:08 12/12/18 07:01 12/12/18 11:35 Glucose (Fingerstick) 112 mg/dL 178 mg/dL 279 mg/dL 193 mg/dL PE: GEN: NAD, up to chair ABD: obese NEURO/PSYCH: A & O 3 A/P: Chronic dysphagia -- DC per primary, follow-up for outpt EGD. Continue PPI. PETER ERVIN Dec 12, 2018 13:57
[2018-12-12 14:48] VITALS: BP 132/73
--- NOTE | 2018-12-12 17:19 | NUR ---
Discharge Note: [facility] Discharge instructions and discharge home medications reviewed with Patient and a copy given. All questions have been answered and understanding verbalized. The following instructions and handouts were given: 2400 diet and diabetic meal planning. Discontinued iv lines and catheter intact. Patient discharged to home with home health via wheelchair accompanied by spouse.
[2018-12-14] MEDS ORDERED: NON FORMULARY ITEM (Dulaglutide (Trulicity) 0.75 MG) SUBCUT SCH (16:00)
[2018-12-28] MEDS ORDERED: INSU100I13 SQ (07:10)
== END 2018-12-12 17:10 | disposition home health service (06) | DRG 391 ==
LOC: ER 12-10 00:14 → 2 SOUTH 12-10 01:45
PROVIDERS: ADMIT Internal Medicine; ATTEND Internal Medicine
DX: K22.4 Dyskinesia of esophagus (principal); I50.33 Acute on chronic diastolic (congestive) heart failure; N17.9 Acute kidney failure, unspecified; N39.0 Urinary tract infection, site not specified; I13.0 Hypertensive heart and chronic kidney disease with heart failure and stage 1 through stage 4 chronic kidney disease, or unspecified chronic kidney disease; I69.351 Hemiplegia and hemiparesis following cerebral infarction affecting right dominant side; Z68.42 Body mass index [BMI] 45.0-49.9, adult; K21.9 Gastro-esophageal reflux disease without esophagitis; R13.10 Dysphagia, unspecified; D50.9 Iron deficiency anemia, unspecified; E03.9 Hypothyroidism, unspecified; E11.22 Type 2 diabetes mellitus with diabetic chronic kidney disease; E11.42 Type 2 diabetes mellitus with diabetic polyneuropathy; E11.51 Type 2 diabetes mellitus with diabetic peripheral angiopathy without gangrene; E66.01 Morbid (severe) obesity due to excess calories; E78.5 Hyperlipidemia, unspecified; E87.5 Hyperkalemia; F32.9 Major depressive disorder, single episode, unspecified; I48.0 Paroxysmal atrial fibrillation; N18.3 Chronic kidney disease, stage 3 (moderate); M19.90 Unspecified osteoarthritis, unspecified site; J44.9 Chronic obstructive pulmonary disease, unspecified; E11.65 Type 2 diabetes mellitus with hyperglycemia; I25.10 Atherosclerotic heart disease of native coronary artery without angina pectoris; I25.2 Old myocardial infarction; R07.89 Other chest pain; Z87.01 Personal history of pneumonia (recurrent); Z79.01 Long term (current) use of anticoagulants; Z82.49 Family history of ischemic heart disease and other diseases of the circulatory system; Z83.3 Family history of diabetes mellitus; Z86.711 Personal history of pulmonary embolism; Z86.718 Personal history of other venous thrombosis and embolism; Z90.49 Acquired absence of other specified parts of digestive tract; Z90.710 Acquired absence of both cervix and uterus; Z95.5 Presence of coronary angioplasty implant and graft; Z79.84 Long term (current) use of oral hypoglycemic drugs
CPT/HCPCS: 36415; 71045; 74220; 80048; 80053; 80061; 81001; 82962; 83036; 83690; 83735; 83880; 84484; 85025; 87086; 87186; 93005; 93971; 94760; J1815; J1940; J7030

== ENCOUNTER → 2018-12-28 | Day surgery (SDC) | payer OTHER, MEDICARE ==
[~2018-12-28] MED LIST changes: +CIPR250T30 PO; +LIDOCAINE 2% PF 5 ML VIAL. ONE; +PROPOFOL 20 ML IV ONE
[2018-12-28] MEDS: IV RINGERS,LACTATED 1000ML 1,000 ML IV SCH (07:23)
[2018-12-28 08:33] VITALS: BP 146/70
--- NOTE | 2018-12-28 21:52 | CONS ---
DATE OF CONSULTATION: 12/28/2018 REFERRING PHYSICIAN: Chidi Giles MD. REASON FOR CONSULTATION: Dysphagia and GERD. HISTORY OF PRESENT ILLNESS: A 58-year-old female with past medical history significant for sleep apnea, oxygen dependent COPD, hypertension, status post cardiac stents, diabetes is seen with his dysphagia with meats and breads in the sub-cervical location. She does feel that her airway gets cut off when she has the dysphagia. Due to worsening symptoms, she is here today for potential evaluation. Minimal reflux is noted at this time. She does take Nexium 40 mg p.o. b.i.d. No alcohol, tobacco or caffeine use is noted at this time. With continued symptoms, request further workup. PAST MEDICAL HISTORY: COPD, sleep apnea, organic heart disease, status post MIs, blood clots. ALLERGIES: None. MEDICATIONS: Include Tylenol, albuterol, alprazolam, amlodipine, Eliquis, aspirin, atorvastatin, bumetanide, clonidine, Trulicity, duloxetine, Nexium, Diflucan, insulin, levothyroxine, Amitiza, metoprolol, nitroglycerin, oxybutynin, Lyrica, docusate sodium, spironolactone, tizanidine. SOCIAL HISTORY: Former smoker. FAMILY HISTORY: Noncontributory. REVIEW OF SYSTEMS: Per records. PAST SURGICAL HISTORY: Cholecystectomy, appendectomy, hysterectomy, tonsillectomy, lung surgery. PHYSICAL EXAMINATION: GENERAL: Reveals a well-nourished, well-developed female who is alert, cooperative, in mild distress. VITAL SIGNS: Temperature is 96, pulse 81, respirations 20. HEENT: Normocephalic and atraumatic head. Pupils and extraocular muscles are not tested. Sclerae anicteric. NECK: Supple. LUNGS: Clear. Reveal decreased breath sounds. CARDIOVASCULAR: Reveals an S1, S2 without S3, S4 or appreciable murmur. ABDOMEN: Soft abdomen, normal bowel sounds. No appreciable splenomegaly. Multiple surgical incisions. EXTREMITIES: Reveals no cyanosis, clubbing or edema. IMPRESSION: Dysphagia with chronic obstructive pulmonary disease. Differential includes Schatzki's ring, presbyesophagus, achalasia, malignancy, Robb's. We will therefore recommend upper endoscopy to further assess. Risks and benefits of procedure including risk of hemorrhage and perforation requiring operation were discussed with the patient as well as potential anesthetic complications with her COPD; anesthesia will be present for propofol administration. CHIP GALO MD DR: DIONI/apolinar JOB#: [id number] / [id number]
== END | disposition home or self-care (01) ==
LOC: SURG 06:41
PROVIDERS: ATTEND Internal Medicine Gastroenterology
DX: K22.2 Esophageal obstruction (principal); T18.2XXA Foreign body in stomach, initial encounter; I10 Essential (primary) hypertension; I25.2 Old myocardial infarction; Z86.718 Personal history of other venous thrombosis and embolism; G47.33 Obstructive sleep apnea (adult) (pediatric); E11.9 Type 2 diabetes mellitus without complications; J44.9 Chronic obstructive pulmonary disease, unspecified; K21.9 Gastro-esophageal reflux disease without esophagitis; Z86.73 Personal history of transient ischemic attack (TIA), and cerebral infarction without residual deficits; Z87.440 Personal history of urinary (tract) infections; Z90.49 Acquired absence of other specified parts of digestive tract; Z90.710 Acquired absence of both cervix and uterus; Z98.890 Other specified postprocedural states; M19.90 Unspecified osteoarthritis, unspecified site; Z79.899 Other long term (current) drug therapy; Z79.82 Long term (current) use of aspirin; X58.XXXA Exposure to other specified factors, initial encounter; Y93.89 Activity, other specified; Y92.89 Other specified places as the place of occurrence of the external cause; Y99.8 Other external cause status; Z95.5 Presence of coronary angioplasty implant and graft; Z87.891 Personal history of nicotine dependence; Z99.81 Dependence on supplemental oxygen; Z79.84 Long term (current) use of oral hypoglycemic drugs
CPT/HCPCS: 43235; 43450; 82962; J2001; J2704

== ENCOUNTER → 2019-01-18 | Outpatient (CLI) | payer OTHER, MEDICARE ==
[2018-12-28 08:33] VITALS: BP 146/70
[~2019-01-18] MED LIST changes: -LIDOCAINE 2% PF 5 ML VIAL. ONE; -PROPOFOL 20 ML IV ONE
--- NOTE | 2019-01-18 18:00 | RAD ---
MR#: [id number] Date of Study: 01/18/2019 Ordering Physician: SELINA ENCARNACION, Referring Physician: SELINA ENCARNACION, Tech: LAINA Andrews, RDMS, RTR APPROVED REPORT Patient Location: OUT-PATIENT Indications Rest Pain: Edema VELOCITY AND DOPPLER WAVEFORM ANALYSIS RIGHT cm/secWaveformSeverity LEFT cm/secWaveform Severity pCFA 251.2pCFA 154.6 Prof Fem Art. 149.2Prof Fem Art. 64.3 Fem Art Prox. 115.7MonophasicFem Art Prox. 114.0 Fem Art Mid. 131.5MonophasicFem Art Mid. 142.0 Fem Art Dist. 55.0MonophasicFem Art Dist. 107.3 Pop Art(Fossa) 74.0MonophasicPop Art(AK) 61.1 BUSINESS DEVELOPMENT MANAGER Dist. 41.7MonophasicPTA Dist. 28.9Monophasic Per Art Dist.32.8MonophasicPer Art Dist.81.9Monophasic CARLOS Dist. 58.3MonophasicATA Dist. 25.9Monophasic DPA 18MonophasicDPA 30Monophasic Findings Elevated velocities are noted in the right common femoral artery suggestive of more proximal stenosis of 50% or greater. The remainder the right lower extremity velocity profiles are mostly monophasic i n nature with grossly normal velocities above the knee suggestive of diffuse atherosclerosis. Below t he knee there is three-vessel patency but diminished flow is noted in the peroneal vessels and the do rsalis pedis vessels. Common femoral arterial velocities are within normal limits on the left and velocity profiles are mos tly biphasic above the knee and within normal limits. No focal obstruction is identified. There are m onophasic waveforms below the knee suggestive of diffuse disease and adventitial calcification with d iminished flow in the posterior tibial and anterior tibial vessels and elevated velocities in the per beaulieu artery although no focal stenosis is identified. Critical Notification Critical Value: No <Conclusion> 1. Probable greater than 50% stenosis involving the right inflow vessels above the common femoral art emiliano 2. Bilateral three-vessel runoff below the knee with likely diffuse disease. 3. Otherwise no focal high-grade stenosis identified. Signed by : Ash Howard, Electronically Approved : 01/18/2019 17:59:58
--- NOTE | 2019-01-18 18:04 | RAD ---
MR#: [id number] Date of Study: 01/18/2019 Ordering Physician: SELINA ENCARNACION, Referring Physician: SELINA ENCARNACION, Tech: LAINA Andrews, RDMS, RTR APPROVED REPORT Patient Location : OUT-PATIENT Indications Lower Extremity Pain : Risk Factors Obesity Findings Limited grayscale images of the bilateral saphenofemoral junctions do not reveal any obvious evidence of thrombus The bilateral greater and lesser saphenous veins do not reveal any evidence of thrombus. The bilateral lesser saphenous veins do not show any evidence of reflux. The bilateral greater saphenous veins do not show any evidence of reflux. Critical Notification Critical Value: No <Conclusion> Negative for reflux in the bilateral greater and lesser saphenous veins Signed by : Ash Howard, Electronically Approved : 01/18/2019 18:03:18
== END | disposition home or self-care (01) ==
LOC: US 12:56
PROVIDERS: ATTEND Internal Medicine Cardiovascular Disease
DX: R60.0 Localized edema (principal); M79.605 Pain in left leg; M79.604 Pain in right leg; I25.10 Atherosclerotic heart disease of native coronary artery without angina pectoris
CPT/HCPCS: 93925; 93970

== ENCOUNTER 2019-04-19 20:43 | Inpatient (IN) | payer OTHER, MEDICARE ==
[~2019-04-19] VITALS: Ht 157.5 cm; Wt 120.0 kg
[~2019-04-19 20:43] MED LIST changes: +CILO50TA PO; +DIPH25CA58 PO; -DULO60CA44 PO; +DULO60CA45 PO; +HYDR-2868 PO; +LABE200T4 PO; +LIDO700A21 TP; -LIDO700A39 TP; +METO50TA4 PO; -TIZA4TAB PO; +TIZA4TAB2 PO
[2019-04-19] MEDS ORDERED: ALBUTEROL SULFATE 2.5 MG/3 ML NEBU. ONE (20:52)
[2019-04-19] MEDS ORDERED: IPRATROPIUM BROMIDE 0.5 MG/2.5 ML NEBU. NEB ONE (21:00)
[2019-04-19] MEDS ORDERED: ALBUTEROL SULFATE 2.5 MG/3 ML NEBU. CONT NEB ONE (21:00)
[2019-04-19] MEDS ORDERED: methylPREDNISolone SOD SUCC PF 125 MG/2 ML VIAL. IV ONE (21:00)
[2019-04-19] MEDS ORDERED: MORPHINE SULFATE 2 MG/ML VIAL. IV/SQ PRN (21:00)
[2019-04-19 21:10] LABS: BASO # 0.1 x10^3/uL (0.0-0.2); BASO % 1 % (0-3); EOS # 0.3 x10^3/uL (0.0-0.7); EOS % 2 % (0-3); HEMATOCRIT 27.5 % (36.0-47.0); HEMOGLOBIN 8.6 g/dL (12.0-15.5); LYMPH # 2.1 x10^3/uL (1.0-4.8); LYMPH % 17 % (24-48); MEAN CORPUSCULAR HEMOGLOBIN 27 pg (25-35); MEAN CORPUSCULAR HGB CONC 31 g/dL (31-37); MEAN CORPUSCULAR VOLUME 85 fL (79-100); MONO % 9 % (0-9); NEUT # 8.3 x10^3/uL (1.8-7.7); NEUT % 71 % (31-73); PLATELET COUNT 295 x10^3/uL (140-400); RED BLOOD COUNT 3.22 x10^6/uL (3.50-5.40); RED CELL DISTRIBUTION WIDTH 17.1 % (11.5-14.5); WHITE BLOOD COUNT 11.8 x10^3/uL (4.0-11.0)
[2019-04-19 21:18] LABS: CALCIUM 8.5 mg/dL (8.5-10.1); CREATININE 3.2 mg/dL (0.6-1.0); POTASSIUM 5.2 mmol/L (3.5-5.1)
[2019-04-19 21:22] LABS: ALBUMIN/GLOBULIN RATIO 0.7 (1.0-1.7); MAGNESIUM 2.3 mg/dL (1.8-2.4); TOTAL BILIRUBIN 0.2 mg/dL (0.2-1.0); TOTAL PROTEIN 7.3 g/dL (6.4-8.2)
[2019-04-19] MEDS ORDERED: FUROSEMIDE 40 MG/4 ML VIAL. IVP ONE (21:30)
[2019-04-19] MEDS ORDERED: PROPOFOL 50 ML IV ONE ×2 (21:40→21:42)
[2019-04-19] MEDS ORDERED: VECURONIUM BOLUS 10 MG VIAL. IV ONE ×2 (21:40→22:13)
[2019-04-19] MEDS ORDERED: ETOMIDATE 20 MG/10 ML VIAL. IV ONE ×2 (21:40→22:13)
[2019-04-19 22:16] LABS: BASE EXCESS ABG -3 mmol/L (-3-3); HCO3 ABG 25 mmol/L (21-28); PO2 ABG 394 mmHg (75-108); SAT O2 ABG 99 % (92-99)
--- NOTE | 2019-04-19 22:25 | PHYS DOC ---
Past Medical History Past Medical History: A-Fib, CAD, CHF, COPD, Diabetes-Type II, Hypertension, [place], Renal Failure, Other Additional Past Medical Histor: 7 stents, 3 heart attacks Past Surgical History: Angioplasty, Hysterectomy, Lumbar Laminectomy, Other Additional Past Surgical Histo: thoracotomy, 2 exlporatory surgeries, lumpectomy right breast, Alcohol Use: None Drug Use: None Adult General Chief Complaint Chief Complaint: DYSPNEA/RESPIRATOY DISTRESS HPI HPI Patient is a 58-year-old female who presents via EMS with report of shortness of breath throughout the day. Patient reportedly had received a breathing treatment earlier this morning and had been on BiPAP for a period of time at the nursing facility without improvement. EMS reports that upon their arrival patient was no longer on BiPAP and was on 3 L nasal cannula, satting in the mid 80s. EMS had given one breathing treatment while in route. Patient is able to nod yes and no and does admit to severe shortness of breath but has monosyllabic dyspnea. Patient is also had chest pain throughout the day. Patient is unable to rate the pain at this time. Additional history is limited due to respiratory distress.[] Review of Systems Review of Systems Constitutional: Denies fever or chills [] Respiratory: Positive cough, wheezing and shortness of breath [] Cardiovascular: No additional information not addressed in HPI [] GI: Denies abdominal pain [] Neurologic: Denies headache [] Unable to fully assess review of systems due to severity of patient symptoms. Current Medications Current Medications Current Medications Medications (Trade) Dose Ordered Sig/Jesus Manuel Start Time Stop Time Status Last Admin Dose Admin Albuterol Sulfate (Ventolin Neb Soln) 10 mg 1X ONCE 04/19/19 21:00 04/19/19 21:01 DC 04/19/19 21:00 10 MG Etomidate (Amidate) 30 mg 1X ONCE 04/19/19 21:40 04/19/19 22:39 DC 04/19/19 21:38 30 MG Furosemide (Lasix) 80 mg 1X ONCE 04/19/19 21:30 04/19/19 21:31 DC 04/19/19 21:20 80 MG Ipratropium Andrews (Atrovent) 0.5 mg 1X ONCE 04/19/19 21:00 04/19/19 21:01 DC 04/19/19 21:00 0.5 MG Methylprednisolone Sodium Succinate (SOLU-Medrol 125MG VIAL) 250 mg 1X ONCE 04/19/19 21:00 04/19/19 21:01 DC 04/19/19 21:08 250 MG Midazolam HCl (Versed) 5 mg 1X ONCE 04/19/19 22:45 04/19/19 22:46 DC 04/19/19 22:23 5 MG Morphine Sulfate (Morphine Sulfate) 2 mg PRN Q15MIN PRN 04/19/19 21:00 04/20/19 20:59 04/19/19 21:14 2 MG Propofol 50 ml @ 1.551 mls/ hr 1X ONCE 04/19/19 21:40 04/21/19 05:54 04/19/19 21:47 3.103 MLS/HR Vecuronium Andrews (Norcuron Bolus) 20 mg 1X ONCE 04/19/19 21:40 04/19/19 22:39 DC 04/19/19 21:39 20 MG Allergies Allergies Allergies Coded Allergies Type Severity Reaction Last Updated Verified I S O L A T I O N *CONTACT* Allergy Unknown 04/08/19 Yes No Known Medication Allergies Allergy Unknown 04/08/19 Yes Physical Exam Physical Exam Constitutional: Well developed, well nourished, in moderate respiratory distress. [] HENT: Normocephalic, atraumatic, bilateral external ears normal, oropharynx moist, no oral exudates, nose normal. [] Eyes: PERRLA, EOMI, conjunctiva normal, no discharge. [] Neck: Normal range of motion, no tenderness, supple, no stridor. [] Cardiovascular: Regular rate and rhythm[] Lungs & Thorax: Significantly reduced breath sounds are noted throughout with only fine end expiratory wheezes and scant rales to auscultation [] Abdomen: Bowel sounds normal, soft, no tenderness. [] Skin: Warm, dry, no erythema, no rash. [] Extremities: No tenderness, no cyanosis, with significant pitting edema to lower extremities. [] Neurologic: Awake and alert, no focal deficits noted. [] Current Patient Data Vital Signs Vital Signs Date Time Temp Pulse Resp B/P (MAP) Pulse Ox O2 Delivery O2 Flow Rate FiO2 04/19/19 22:50 82 183/82 (115) 100 Ventilator 04/19/19 21:14 24 04/19/19 21:03 3.0 04/19/19 20:43 96.8 96.8 Lab Values Laboratory Tests Test 04/19/19 20:55 04/19/19 22:00 White Blood Count 11.8 x10^3/uL (4.0-11.0) H Red Blood Count 3.22 x10^6/uL (3.50-5.40) L Hemoglobin 8.6 g/dL (12.0-15.5) L Hematocrit 27.5 % (36.0-47.0) L Mean Corpuscular Volume 85 fL (79-100) Mean Corpuscular Hemoglobin 27 pg (25-35) Mean Corpuscular Hemoglobin Concent 31 g/dL (31-37) Red Cell Distribution Width 17.1 % (11.5-14.5) H Platelet Count 295 x10^3/uL (140-400) Neutrophils (%) (Auto) 71 % (31-73) Lymphocytes (%) (Auto) 17 % (24-48) L Monocytes (%) (Auto) 9 % (0-9) Eosinophils (%) (Auto) 2 % (0-3) Basophils (%) (Auto) 1 % (0-3) Neutrophils # (Auto) 8.3 x10^3/uL (1.8-7.7) H Lymphocytes # (Auto) 2.1 x10^3/uL (1.0-4.8) Monocytes # (Auto) 1.0 x10^3/uL (0.0-1.1) Eosinophils # (Auto) 0.3 x10^3/uL (0.0-0.7) Basophils # (Auto) 0.1 x10^3/uL (0.0-0.2) Sodium Level 138 mmol/L (136-145) Potassium Level 5.2 mmol/L (3.5-5.1) H Chloride Level 102 mmol/L (98-107) Carbon Dioxide Level 27 mmol/L (21-32) Anion Gap 9 (6-14) Blood Urea Nitrogen 58 mg/dL (7-20) H Creatinine 3.2 mg/dL (0.6-1.0) H Estimated GFR (Cockcroft-Gault) 15.0 BUN/Creatinine Ratio 18 (6-20) Glucose Level 127 mg/dL (70-99) H Calcium Level 8.5 mg/dL (8.5-10.1) Magnesium Level 2.3 mg/dL (1.8-2.4) Total Bilirubin 0.2 mg/dL (0.2-1.0) Aspartate Amino Transferase (AST) 35 U/L (15-37) Alanine Aminotransferase (ALT) 35 U/L (14-59) Alkaline Phosphatase 129 U/L (46-116) H Troponin I Quantitative < 0.017 ng/mL (0.000-0.055) BT-Isr-K-Type Natriuretic Peptide 2699 pg/mL (0-124) H Total Protein 7.3 g/dL (6.4-8.2) Albumin 3.0 g/dL (3.4-5.0) L Albumin/Globulin Ratio 0.7 (1.0-1.7) L O2 Saturation 99 % (92-99) Arterial Blood pH 7.22 (7.35-7.45) L Arterial Blood pCO2 at Patient Temp 63 mmHg (35-46) *H Arterial Blood pO2 at Patient Temp 394 mmHg (75-108) H Arterial Blood HCO3 25 mmol/L (21-28) Arterial Blood Base Excess -3 mmol/L (-3-3) Laboratory Tests 04/19/19 20:55 Laboratory Tests 04/19/19 20:55 EKG EKG [] Interpretation Time: EKG demonstrates sinus rhythm with rate of 87. Radiology/Procedures Radiology/Procedures [] Impressions: Chest x-ray demonstrates findings consistent with fluid overload Course & Med Decision Making Course & Med Decision Making Pertinent Labs and Imaging studies reviewed. (See chart for details) Patient moved to room upon arrival was evaluated by your medical staff after which an IV was established and blood work was drawn. Patient initiated on 1 mindi r continuous breathing treatment and given IV Solu-Medrol. Patient also given IV mag sulfate. Patient's in addition continued to deteriorate throughout breathing treatment and patient clearly very fatigued. At this time, I had inquired of patient's if she would be open to establishing a breathing tube and being placed on ventilator and she was agreeable. Patient prepared for intubation at this time. Endotracheal Intubation by me: Pre assessment performed. See preceding note for details. Pre-oxygenation performed with 100% oxygen RSI: Performed w/o complication or hypoxic events. Medications as ordered. Blade: [place] scope ET Tube: 7.5 cm Depth: 24 cm at the lip Intubation confirmed by colorimetric CO2, equal breath sounds, quiet over the stomach. Chest X-ray 1V Interpreted by me: 2 cm above the haleigh ET tube. Normal soft tissue, No pneumothorax. A total of 50 minutes of critical care time was spent on this patient exclusive of separately billable procedures, and included direct qykh-pi-wlve time with this patient, ordering and reviewing of both laboratory and radiologic studies, discussion of patient's case with road consultant and family, and finally on documentation of this patient's medical record. Dragon Disclaimer Dragon Disclaimer This electronic medical record was generated, in whole or in part, using a voice recognition dictation system. Departure Departure Impression: Primary Impression: Acute respiratory failure with hypoxia and hypercapnia Additional Impressions: COPD exacerbation CHF (congestive heart failure) Aggtg-[id number] kidney injury Disposition: 09 ADMITTED INPATIENT Admitting Physician: Elizabeth Roblero Condition: IMPROVED Referrals: JOSE BLAKELY MD (PCP) Problem Qualifiers Additional Impressions: CHF (congestive heart failure) Heart failure type: unspecified Heart failure chronicity: unspecified Qualified Codes: I50.9 - Heart failure, unspecified Lcnfs-vq-qwuxjot kidney injury Acute renal failure type: unspecified Chronic kidney disease stage: unspecified stage Qualified Codes: N17.9 - Acute kidney failure, unspecified; N18.9 - Chronic kidney disease, unspecified CHENG KLEIN Jr. DO Apr 19, 2019 22:25
[2019-04-19] MEDS ORDERED: MIDAZOLAM HCL/PF 5 MG/5 ML VIAL. NS ONE (22:30)
[2019-04-19] MEDS ORDERED: MIDAZOLAM HCL/PF 5 MG/5 ML VIAL. IV ONE (22:45)
[2019-04-19 22:49] LABS: PCO2 ABG 63 mmHg (35-46)
[2019-04-19 23:30] VITALS: BP 157/73
[2019-04-19 23:45] VITALS: BP 153/68
[2019-04-20] VITALS (27 sets, daily range): BP systolic 118–166; BP diastolic 49–84
[2019-04-20] MEDS: PROPOFOL 100 ML IV PRN ×7 (00:49→21:20)
[2019-04-20 01:19] LABS: BASE EXCESS ABG -4 mmol/L (-3-3); HCO3 ABG 24 mmol/L (21-28); PCO2 ABG 57 mmHg (35-46); PO2 ABG 79 mmHg (75-108); SAT O2 ABG 93 % (92-99)
[2019-04-20 01:20] LABS: FIO2 ABG 60
[2019-04-20] MEDS ORDERED: ALBUTEROL SULFATE 2.5 MG/3 ML NEBU. NEB PRN (02:00)
[2019-04-20 04:52] LABS: BASO % 0 % (0-3); EOS % 0 % (0-3); HEMATOCRIT 26.5 % (36.0-47.0); HEMOGLOBIN 8.5 g/dL (12.0-15.5); LYMPH # 0.5 x10^3/uL (1.0-4.8); LYMPH % 5 % (24-48); MEAN CORPUSCULAR HEMOGLOBIN 27 pg (25-35); MEAN CORPUSCULAR HGB CONC 32 g/dL (31-37); MEAN CORPUSCULAR VOLUME 84 fL (79-100); MONO # 0.2 x10^3/uL (0.0-1.1); MONO % 2 % (0-9); NEUT # 8.9 x10^3/uL (1.8-7.7); NEUT % 93 % (31-73); PLATELET COUNT 280 x10^3/uL (140-400); RED BLOOD COUNT 3.15 x10^6/uL (3.50-5.40); WHITE BLOOD COUNT 9.6 x10^3/uL (4.0-11.0)
[2019-04-20 05:43] LABS: ALBUMIN 2.6 g/dL (3.4-5.0); ALBUMIN/GLOBULIN RATIO 0.6 (1.0-1.7); CALCIUM 8.4 mg/dL (8.5-10.1); CREATININE 3.1 mg/dL (0.6-1.0); GFR 15.5; POTASSIUM 4.9 mmol/L (3.5-5.1); TOTAL BILIRUBIN 0.3 mg/dL (0.2-1.0)
--- NOTE | 2019-04-20 05:59 | NUR ---
Pt admitted to room 104 on 04/19/19 at 2330. Pt admitted to DR TAVAREZ for acute resp failure. Pt arrived by tashi, ER nurse, RT, being bagged on ventilator. Upon arrival, all VSS on ventilator, AC 60%, 5 of peep, and 5mcg Propofol. Admission paperwork obtained from patient's previous hospital stay 04/16. BLE wounds noted- pictured/dressed. ABG redrawn, results called to Dr Sanches- orders to pull ET tube back 2cm from previous XRAY, no changes to vent settings. RT Nathalia notified, RT Nathalia pulled chelly ET tube to 22 at lip, secured- stat xray ordered. Pt at bedside, questions answered. Patient resting peacefully, will monitor.
[2019-04-20] MEDS: IPRATRPIUM/ALBUTEROL 0.5/2.5MG 3 ML NEBU. NEB SCH ×4 (08:04→19:29)
[2019-04-20 08:27] LABS: BASE EXCESS ABG -1 mmol/L (-3-3); HCO3 ABG 23 mmol/L (21-28); PCO2 ABG 36 mmHg (35-46); PO2 ABG 105 mmHg (75-108); SAT O2 ABG 97 % (92-99)
[2019-04-20 08:30] LABS: FIO2 ABG 60
--- NOTE | 2019-04-20 08:36 | RAD ---
AP chest. HISTORY: Dyspnea AP view was taken of the chest. There are changes from prior surgery in the mediastinum and base of the neck. There is an opaque device partially obscuring the right lung base. The heart is enlarged. There is mild vascular congestion. Left costophrenic angle is not entirely included on the current film. IMPRESSION: 1. Cardiomegaly with vascular congestion possible heart failure. Electronically signed by: Chriss Florentino MD (04/20/2019 8:33 AM) [facility]
--- NOTE | 2019-04-20 08:54 | RAD ---
AP chest. HISTORY: Intubated AP view was taken of the chest. Endotracheal tube stops at the aortic arch just above the haleigh. There is vascular congestion. The heart is enlarged. The distal NG tube is incompletely evaluated, the tube extends into the abdomen. IMPRESSION: 1. Endotracheal tube in good position. 2. NG tube incompletely evaluated. 3. Pulmonary vascular congestion. Electronically signed by: Chriss Florentino MD (04/20/2019 8:50 AM) [facility]
--- NOTE | 2019-04-20 09:02 | RAD ---
AP chest. HISTORY: Intubated AP view was taken of the chest. Endotracheal tube is in good position. NG tube extends into the stomach. There has been a mild improvement in the vascular congestion. There are bilateral areas of atelectasis or infiltrate. IMPRESSION: 1. Endotracheal tube in good position. 2. NG tube in the stomach. 3. Mild improvement in vascular congestion. 4. Bilateral areas of atelectasis or infiltrate. Electronically signed by: Chriss Florentino MD (04/20/2019 8:59 AM) [facility]
--- NOTE | 2019-04-20 09:10 | RAD ---
Abdomen one view. HISTORY: Gastric tube placement Single view the abdomen shows a gastric tube in good position extending to the gastric antrum. There is mild atelectasis or infiltrate in the lung bases. Bowel pattern of the upper abdomen is unremarkable. Patient's had a cholecystectomy. IMPRESSION: 1. NG tube in the stomach. Electronically signed by: Chriss Florentino MD (04/20/2019 9:08 AM) [facility]
[2019-04-20] MEDS ORDERED: PIP/TAZO PER PHARMACY MC PRN (10:00)
--- NOTE | 2019-04-20 10:17 | CONS ---
DATE OF CONSULTATION: PULMONARY CONSULTATION ATTENDING PHYSICIAN: Dr. Roblero. REASON FOR CONSULTATION: Respiratory failure. HISTORY OF PRESENT ILLNESS: The patient is a 58-year-old morbidly obese patient with a BMI of 50. She has obstructive sleep apnea and obesity hypoventilation syndrome and has been on BiPAP at home along with oxygen via nasal cannula. She was last hospitalized and had relatively prolonged stay due to renal dysfunction. She was at a rehab/skilled care facility where she was started to have some shortness of breath. The also reported altered level of consciousness as well with increased lethargy. She was not getting any better even with the BiPAP. As a result, she was brought into Emergency Room where she was noted to be in worsening respiratory distress. She had some chest pain as well. Although it was not well characterized on the ER note. The patient was intubated. Initial ABGs showed a pH of 7.22, pCO2 of 63 and a pO2 of 394 with a bicarbonate of 25, suggesting combined metabolic and respiratory acidosis. Since that last night, her recent ABGs this morning had shown a pH of 7.43, pCO2 of 36 and a pO2 of 105 and a bicarbonate of 23. She also has renal dysfunction with a BUN of 60 and a creatinine of 3.1. Her chest x-ray showed vascular congestion post-intubation. Her endotracheal tube was also just barely above the haleigh, which I had ordered to pull it back and now it is in satisfactory position. Overall, vascularity has improved. However, there appears to be possible right lower lobe infiltrate. Consultation requested for further evaluation and management. PAST MEDICAL HISTORY: Significant for obstructive sleep apnea/obesity hypoventilation syndrome and chronic respiratory failure, history of diastolic heart failure, grade 2 diastolic dysfunction, history of type 2 diabetes, hypertension, [place], CKD, AFib. SURGERIES: Previous 7 stents, 3 heart attacks. Angioplasty, hysterectomy, lumbar laminectomy, thoracotomy, 2 exploratory surgeries, lumpectomy of right breast. ALLERGIES: None. MEDICATIONS: Reviewed as listed in the MRAD. SYSTEM REVIEW: Unable to obtain from the patient. SOCIAL HISTORY: Minimal history of tobacco use up to 10 years, quit 15-20 years ago. PHYSICAL EXAMINATION: GENERAL: She is intubated and sedated. VITAL SIGNS: Blood pressure stable, pulse ox 99% on current FiO2 of 50%. HEENT: Sclerae nonicteric. NECK: Supple. LUNGS: Diminished breath sounds. CARDIOVASCULAR: Regular rate and rhythm. ABDOMEN: Soft, nontender. EXTREMITIES: Bilateral pitting edema. LABORATORY DATA: ABGs discussed in my history of present illness. BUN 60, creatinine 3.1. Albumin 2.6. White cell count was 11.8, now 9.6; hemoglobin 8.5; platelets are 280. IMPRESSION: 1. Qhzsx-cz-jnqrcfy hypercapnic respiratory failure. The etiology related to suspected right heart failure. Cannot exclude right lower lobe pneumonia. She also has component of metabolic acidosis combined with respiratory acidosis. . 2. Underlying obesity hypoventilation syndrome/obstructive sleep apnea, on home BiPAP and oxygen at 3 L. 3. Abnormal chest x-ray consistent with mild congestive heart failure, probably diastolic as she has grade 2 diastolic dysfunction. 4. Lower extremity edema. 5. Chronic kidney disease with recent increase during her previous hospitalization. 6. Minimal history of tobacco use. RECOMMENDATIONS: 1. Continue with present assist control and make necessary adjustment based on ABGs. 2. Continue with propofol. 3. We will start CPAP trial in the next 24 hours. 4. Add empiric antibiotic. 5. Obtain procalcitonin level. 6. Monitor renal function. 7. Give 1 ampule of bicarbonate as her bicarbonate relatively should be higher than 28 due to her chronic hypercapnia. 8. DVT prophylaxis. 9. Stress ulcer prophylaxis. 10. Discussed with RN, discussed with the patient's and we will follow along with you. Critical care time 37 minutes. ROBERT SANDOVAL MD DR: EDGAR/apolinar JOB#: [id number] / [id number] GREGG
--- NOTE | 2019-04-20 10:59 | PDOC ---
PROGRESS NOTES Subjective Subjective Patient sedated, resting quietly on vent. Objective Objective Vital Signs Date Time Temp Pulse Resp B/P (MAP) Pulse Ox O2 Delivery O2 Flow Rate FiO2 04/20/19 10:00 91 16 141/59 (86) 99 Ventilator 04/20/19 09:00 3.0 04/20/19 08:00 98.6 98.6 Intake and Output 04/20/19 07:00 Intake Total 0 ml Output Total 1875 ml Balance -1875 ml Intake Oral 0 ml Output Urine Total 1875 ml Physical Exam Abdomen: Normal bowel sounds, Soft, No tenderness Heart: Regular rate Extremities: Other (mild pitting edema bilateral LE's, gauze wraps in place) General: No acute distress (resting quietly) Lungs: Other (BS decreased but CTA anteriorly) Assessment Assessment Problems Medical Problems: (1) Acute respiratory failure with hypoxia and hypercapnia Status: Acute (2) [id number] kidney injury Status: Acute (3) CHF (congestive heart failure) Status: Acute (4) COPD exacerbation Status: Acute Plan Plan of Care 1. Acute hypercapnic respiratory failure - symptoms gradually worsened at [facility] yesterday, transferred to ER and required intubation. Now sta ble on vent, continue management per Pulmonary. 2. acute renal failure with CKD - patient's renal function worse than her baseli ne during recent hospital stay. Holding diuretics for now, Renal consult pending. 3. CHF with diastolic dysfunction and hx CAD - preserved EF on recent Echo. Hold diuretics for now. 4. PAF - presently in sinus, continue Eliquis and B ryanne. 5. DM2 - anticipate hyperglycemia as patient received 250mg Solumedrol in ER. Insulins ordered. 6. PAD - dx on last admission, tx with Pletal, will continue this. 7. chronic lymphedema - has been looking much improved per , continue wraps and elevation. 8. HTN - continue her usual medications. Comment Review of Relevant I have reviewed the following items jim (where applicable) has been applied. Labs Laboratory Tests Test 04/19/19 20:55 04/19/19 22:00 04/20/19 01:05 04/20/19 04:25 White Blood Count 11.8 x10^3/uL (4.0-11.0) 9.6 x10^3/uL (4.0-11.0) Red Blood Count 3.22 x10^6/uL (3.50-5.40) 3.15 x10^6/uL (3.50-5.40) Hemoglobin 8.6 g/dL (12.0-15.5) 8.5 g/dL (12.0-15.5) Hematocrit 27.5 % (36.0-47.0) 26.5 % (36.0-47.0) Mean Corpuscular Volume 85 fL (79-100) 84 fL (79-100) Mean Corpuscular Hemoglobin 27 pg (25-35) 27 pg (25-35) Mean Corpuscular Hemoglobin Concent 31 g/dL (31-37) 32 g/dL (31-37) Red Cell Distribution Width 17.1 % (11.5-14.5) 17.0 % (11.5-14.5) Platelet Count 295 x10^3/uL (140-400) 280 x10^3/uL (140-400) Neutrophils (%) (Auto) 71 % (31-73) 93 % (31-73) Lymphocytes (%) (Auto) 17 % (24-48) 5 % (24-48) Monocytes (%) (Auto) 9 % (0-9) 2 % (0-9) Eosinophils (%) (Auto) 2 % (0-3) 0 % (0-3) Basophils (%) (Auto) 1 % (0-3) 0 % (0-3) Neutrophils # (Auto) 8.3 x10^3/uL (1.8-7.7) 8.9 x10^3/uL (1.8-7.7) Lymphocytes # (Auto) 2.1 x10^3/uL (1.0-4.8) 0.5 x10^3/uL (1.0-4.8) Monocytes # (Auto) 1.0 x10^3/uL (0.0-1.1) 0.2 x10^3/uL (0.0-1.1) Eosinophils # (Auto) 0.3 x10^3/uL (0.0-0.7) 0.0 x10^3/uL (0.0-0.7) Basophils # (Auto) 0.1 x10^3/uL (0.0-0.2) 0.0 x10^3/uL (0.0-0.2) Sodium Level 138 mmol/L (136-145) 138 mmol/L (136-145) Potassium Level 5.2 mmol/L (3.5-5.1) 4.9 mmol/L (3.5-5.1) Chloride Level 102 mmol/L (98-107) 101 mmol/L (98-107) Carbon Dioxide Level 27 mmol/L (21-32) 24 mmol/L (21-32) Anion Gap 9 (6-14) 13 (6-14) Blood Urea Nitrogen 58 mg/dL (7-20) 60 mg/dL (7-20) Creatinine 3.2 mg/dL (0.6-1.0) 3.1 mg/dL (0.6-1.0) Estimated GFR (Cockcroft-Gault) 15.0 15.5 BUN/Creatinine Ratio 18 (6-20) 19 (6-20) Glucose Level 127 mg/dL (70-99) 219 mg/dL (70-99) Calcium Level 8.5 mg/dL (8.5-10.1) 8.4 mg/dL (8.5-10.1) Magnesium Level 2.3 mg/dL (1.8-2.4) Total Bilirubin 0.2 mg/dL (0.2-1.0) 0.3 mg/dL (0.2-1.0) Aspartate Amino Transf (AST/SGOT) 35 U/L (15-37) 33 U/L (15-37) Alanine Aminotransferase (ALT/SGPT) 35 U/L (14-59) 34 U/L (14-59) Alkaline Phosphatase 129 U/L (46-116) 141 U/L (46-116) Troponin I Quantitative < 0.017 ng/mL (0.000-0.055) QW-Tia-C-Type Natriuretic Peptide 2699 pg/mL (0-124) Total Protein 7.3 g/dL (6.4-8.2) 7.0 g/dL (6.4-8.2) Albumin 3.0 g/dL (3.4-5.0) 2.6 g/dL (3.4-5.0) Albumin/Globulin Ratio 0.7 (1.0-1.7) 0.6 (1.0-1.7) O2 Saturation 99 % (92-99) 93 % (92-99) Arterial Blood pH 7.22 (7.35-7.45) 7.24 (7.35-7.45) Arterial Blood pCO2 at Patient Temp 63 mmHg (35-46) 57 mmHg (35-46) Arterial Blood pO2 at Patient Temp 394 mmHg (75-108) 79 mmHg (75-108) Arterial Blood HCO3 25 mmol/L (21-28) 24 mmol/L (21-28) Arterial Blood Base Excess -3 mmol/L (-3-3) -4 mmol/L (-3-3) FiO2 60 Test 04/20/19 07:27 04/20/19 08:15 Glucose (Fingerstick) 201 mg/dL (70-99) O2 Saturation 97 % (92-99) Arterial Blood pH 7.43 (7.35-7.45) Arterial Blood pCO2 at Patient Temp 36 mmHg (35-46) Arterial Blood pO2 at Patient Temp 105 mmHg (75-108) Arterial Blood HCO3 23 mmol/L (21-28) Arterial Blood Base Excess -1 mmol/L (-3-3) FiO2 60 Laboratory Tests Test 04/19/19 20:55 04/19/19 22:00 04/20/19 01:05 04/20/19 04:25 White Blood Count 11.8 x10^3/uL (4.0-11.0) 9.6 x10^3/uL (4.0-11.0) Red Blood Count 3.22 x10^6/uL (3.50-5.40) 3.15 x10^6/uL (3.50-5.40) Hemoglobin 8.6 g/dL (12.0-15.5) 8.5 g/dL (12.0-15.5) Hematocrit 27.5 % (36.0-47.0) 26.5 % (36.0-47.0) Mean Corpuscular Volume 85 fL (79-100) 84 fL (79-100) Mean Corpuscular Hemoglobin 27 pg (25-35) 27 pg (25-35) Mean Corpuscular Hemoglobin Concent 31 g/dL (31-37) 32 g/dL (31-37) Red Cell Distribution Width 17.1 % (11.5-14.5) 17.0 % (11.5-14.5) Platelet Count 295 x10^3/uL (140-400) 280 x10^3/uL (140-400) Neutrophils (%) (Auto) 71 % (31-73) 93 % (31-73) Lymphocytes (%) (Auto) 17 % (24-48) 5 % (24-48) Monocytes (%) (Auto) 9 % (0-9) 2 % (0-9) Eosinophils (%) (Auto) 2 % (0-3) 0 % (0-3) Basophils (%) (Auto) 1 % (0-3) 0 % (0-3) Neutrophils # (Auto) 8.3 x10^3/uL (1.8-7.7) 8.9 x10^3/uL (1.8-7.7) Lymphocytes # (Auto) 2.1 x10^3/uL (1.0-4.8) 0.5 x10^3/uL (1.0-4.8) Monocytes # (Auto) 1.0 x10^3/uL (0.0-1.1) 0.2 x10^3/uL (0.0-1.1) Eosinophils # (Auto) 0.3 x10^3/uL (0.0-0.7) 0.0 x10^3/uL (0.0-0.7) Basophils # (Auto) 0.1 x10^3/uL (0.0-0.2) 0.0 x10^3/uL (0.0-0.2) Sodium Level 138 mmol/L (136-145) 138 mmol/L (136-145) Potassium Level 5.2 mmol/L (3.5-5.1) 4.9 mmol/L (3.5-5.1) Chloride Level 102 mmol/L (98-107) 101 mmol/L (98-107) Carbon Dioxide Level 27 mmol/L (21-32) 24 mmol/L (21-32) Anion Gap 9 (6-14) 13 (6-14) Blood Urea Nitrogen 58 mg/dL (7-20) 60 mg/dL (7-20) Creatinine 3.2 mg/dL (0.6-1.0) 3.1 mg/dL (0.6-1.0) Estimated GFR (Cockcroft-Gault) 15.0 15.5 BUN/Creatinine Ratio 18 (6-20) 19 (6-20) Glucose Level 127 mg/dL (70-99) 219 mg/dL (70-99) Calcium Level 8.5 mg/dL (8.5-10.1) 8.4 mg/dL (8.5-10.1) Magnesium Level 2.3 mg/dL (1.8-2.4) Total Bilirubin 0.2 mg/dL (0.2-1.0) 0.3 mg/dL (0.2-1.0) Aspartate Amino Transf (AST/SGOT) 35 U/L (15-37) 33 U/L (15-37) Alanine Aminotransferase (ALT/SGPT) 35 U/L (14-59) 34 U/L (14-59) Alkaline Phosphatase 129 U/L (46-116) 141 U/L (46-116) Troponin I Quantitative < 0.017 ng/mL (0.000-0.055) ZK-Ivc-E-Type Natriuretic Peptide 2699 pg/mL (0-124) Total Protein 7.3 g/dL (6.4-8.2) 7.0 g/dL (6.4-8.2) Albumin 3.0 g/dL (3.4-5.0) 2.6 g/dL (3.4-5.0) Albumin/Globulin Ratio 0.7 (1.0-1.7) 0.6 (1.0-1.7) O2 Saturation 99 % (92-99) 93 % (92-99) Arterial Blood pH 7.22 (7.35-7.45) 7.24 (7.35-7.45) Arterial Blood pCO2 at Patient Temp 63 mmHg (35-46) 57 mmHg (35-46) Arterial Blood pO2 at Patient Temp 394 mmHg (75-108) 79 mmHg (75-108) Arterial Blood HCO3 25 mmol/L (21-28) 24 mmol/L (21-28) Arterial Blood Base Excess -3 mmol/L (-3-3) -4 mmol/L (-3-3) FiO2 60 Test 7/27/19 07:27 04/20/19 08:15 Glucose (Fingerstick) 201 mg/dL (70-99) O2 Saturation 97 % (92-99) Arterial Blood pH 7.43 (7.35-7.45) Arterial Blood pCO2 at Patient Temp 36 mmHg (35-46) Arterial Blood pO2 at Patient Temp 105 mmHg (75-108) Arterial Blood HCO3 23 mmol/L (21-28) Arterial Blood Base Excess -1 mmol/L (-3-3) FiO2 60 Medications Current Medications Albuterol Sulfate (Ventolin Neb Soln) 2.5 mg STK-MED ONCE .ROUTE ; Start 04/19/19 at 20:52; Stop 04/19/19 at 20:53; Status DC Ipratropium [place] (Atrovent) 0.5 mg 1X ONCE NEB Last administered on 04/19/19at 21:00; Start 04/19/19 at 21:00; Stop 04/19/19 at 21:01; Status DC Methylprednisolone Sodium Succinate (SOLU-Medrol 125MG VIAL) 250 mg 1X ONCE IV Last administered on 04/19/19at 21:08; Start 04/19/19 at 21:00; Stop 04/19/19 at 21:01; Status DC Albuterol Sulfate (Ventolin Neb Soln) 10 mg 1X ONCE CONT NEB Last administered on 04/19/19at 21:00; Start 04/19/19 at 21:00; Stop 04/19/19 at 21:01; Status DC Morphine Sulfate (Morphine Sulfate) 2 mg PRN Q15MIN PRN IV/SQ PAIN GREATER THAN 3/10 Last administered on 04/19/19at 21:14; Start 04/19/19 at 21:00; Stop 04/20/19 at 20:59 Furosemide (Lasix) 80 mg 1X ONCE IVP Last administered on 04/19/19at 21:20; Start 04/19/19 at 21:30; Stop 04/19/19 at 21:31; Status DC Propofol 50 ml @ As Directed STK-MED ONCE IV ; Start 04/19/19 at 21:42; Stop 04/19/19 at 21:43; Status DC Propofol 100 ml @ 0 mls/hr CONT PRN IV SEE PROTOCOL Last administered on 9at 06:17; Start 04/19/19 at 22:00 Etomidate (Amidate) 20 mg STK-MED ONCE IV ; Start 04/19/19 at 22:13; Stop 04/19/19 at 22:14; Status DC Vecuronium [place] (Norcuron Bolus) 10 mg STK-MED ONCE IV ; Start 04/19/19 at 22:13; Stop 04/19/19 at 22:14; Status DC Midazolam HCl (Versed) 5 mg 1X ONCE NS ; Start 04/19/19 at 22:30; Stop 04/19/19 at 22:31; Status DC Propofol 50 ml @ 1.551 mls/ hr 1X ONCE IV Last administered on 04/19/19at 21:47; Start 04/19/19 at 21:40; Stop 04/21/19 at 05:54 Vecuronium [place] (Norcuron Bolus) 20 mg 1X ONCE IV Last administered on 04/19/19at 21:39; Start 04/19/19 at 21:40; Stop 04/19/19 at 22:39; Status DC Etomidate (Amidate) 30 mg 1X ONCE IV Last administered on 04/19/19at 21:38; Start 04/19/19 at 21:40; Stop 04/19/19 at 22:39; Status DC Midazolam HCl (Versed) 5 mg 1X ONCE IV Last administered on 04/19/19at 22:23; Start 04/19/19 at 22:45; Stop 04/19/19 at 22:46; Status DC Albuterol/ Ipratropium (Duoneb) 3 ml RTQID NEB Last administered on 04/20/19at 08:04; Start 04/20/19 at 08:00 Albuterol Sulfate (Ventolin Neb Soln) 2.5 mg PRN Q4HRS PRN NEB SHORTNESS OF BREATH Last administered on 04/20/19at 03:20; Start 04/20/19 at 02:00 Heparin Sodium (Porcine) (Heparin Sodium) 5,000 unit Q8HRS SQ ; Start 04/20/19 at 14:00; Stop 04/20/19 at 14:00; Status DC Piperacillin Sod/ Tazobactam Sod (Zosyn Per Pharmacy) 1 each PRN DAILY PRN MC SEE COMMENTS; Start 04/20/19 at 10:00 Sodium Bicarbonate (Sodium Bicarb Adult 8.4% Syr) 50 meq 1X ONCE IV ; Start 04/20/19 at 11:00; Stop 04/20/19 at 11:01 Piperacillin Sod/ Tazobactam Sod 2.25 gm/Sodium Chloride 50 ml @ 100 mls/hr Q6HRS IV ; Start 04/20/19 at 12:00 Insulin Human Lispro (HumaLOG) 0-9 UNITS TIDWMEALS SQ ; Start 04/20/19 at 12:00 Dextrose (Dextrose 50%-Water Syringe) 12.5 gm PRN Q15MIN PRN IV SEE COMMENTS; Start 04/20/19 at 11:00 Active Scripts Active Humalog (Insulin Lispro) 100 Unit/1 Ml Insuln.pen 30 Units SQ TIDWMEALS 30 Days Toprol Xl (Metoprolol Succinate) 50 Mg Tab.er.24h 100 Mg PO DAILY Hydralazine Hcl 25 Mg Tablet 50 Mg PO TID Cilostazol 50 Mg Tablet 50 Mg PO BID Xanax (Alprazolam) 0.5 Mg Tablet 0.5 Mg PO PRN Q6HRS PRN Ondansetron Odt (Ondansetron) 4 Mg Tab.rapdis 1 Tab PO PRN Q6-8HRS Nystop (Nystatin) 60 Gm Powder 1 Sally TP BID 30 Days Colace (Docusate Sodium) 100 Mg Capsule 100 Mg PO BID Senna-Time S Tablet (Sennosides/Docusate Sodium) 1 Each Tablet 1 Tab PO BID Nitrostat (Nitroglycerin) 0.4 Mg Tab.subl 0.4 Mg SL PRN Q5MIN PRN 30 Days Reported Lantus Solostar (Insulin Glargine,Hum.rec.anlog) 100 Unit/1 Ml Insuln.pen 75 Unit SQ BID Tizanidine Hcl 4 Mg Tablet 1 Tab PO TID Duloxetine Hcl 60 Mg Capsule.dr 60 Mg PO BID Trulicity (Dulaglutide) 0.75 Mg/0.5 Ml Pen.injctr 0.75 Mg SUBCUT QFR Amlodipine Besylate 5 Mg Tablet 5 Mg PO DAILY Ventolin Hfa Inhaler (Albuterol Sulfate) 18 Gm Hfa.aer.ad 2 Puff INH PRN Q4HRS PRN Duoneb 0.5-3(2.5) Mg/3 Ml (Albuterol/Ipratropium) 3 Ml Ampul.neb 3 Ml NEB PRN QID PRN Flonase Allergy Relief (Fluticasone Propionate) 9.9 Ml [place].susp 2 Sprays NS PRN PRN Clonidine Hcl 0.1 Mg Tablet 1 Tab PO PRN PRN When SBP >150 Eliquis (Apixaban) 5 Mg Tablet 5 Mg PO BID Lyrica (Pregabalin) 150 Mg Capsule 1 Cap PO BID Atorvastatin Calcium 20 Mg Tablet 2 Tab PO HS Nexium Capsule (Esomeprazole Magnesium) 40 Mg Capsule.dr 1 Cap PO BID Aspirin 81 Mg Tab.chew 1 Tab PO DAILY Levothyroxine Sodium 50 Mcg Tablet 1 Tab PO DAILY Vitals/I & O Vital Sign - Last 24 Hours 04/19/19 04/19/19 04/19/19 04/19/19 20:43 20:45 21:00 21:03 Temp 96.8 96.8 Pulse 87 80 50 Resp 20 B/P (MAP) 171/77 (108) 171/77 (108) 153/72 (99) Pulse Ox 97 96 91 O2 Delivery Aerosol Mask Aerosol Mask Aerosol Mask Nasal Cannula O2 Flow Rate 3.0 04/19/19 04/19/19 04/19/19 04/19/19 21:14 21:22 21:25 21:30 Pulse 60 66 Resp 24 B/P (MAP) 135/76 (95) 159/85 (109) 127/73 (91) Pulse Ox 84 92 82 85 O2 Delivery Aerosol Mask Aerosol Mask Aerosol Mask Aerosol Mask 04/19/19 04/19/19 04/19/19 04/19/19 21:35 21:40 21:45 21:50 Pulse 70 76 83 82 B/P (MAP) 109/77 (88) 111/59 (76) 156/73 (100) 158/81 (106) Pulse Ox 87 100 100 O2 Delivery Aerosol Mask Aerosol Mask Aerosol Mask Ventilator 04/19/19 04/19/19 04/19/19 04/19/19 21:51 21:55 22:05 22:08 Pulse 82 80 80 78 B/P (MAP) 170/79 (109) 178/79 (112) 191/128 (149) 205/99 (134) Pulse Ox 100 100 100 100 O2 Delivery Ventilator Ventilator Ventilator Ventilator 7/26/04/19/19 04/19/19 04/19/19 22:10 22:10 22:15 22:20 Pulse 78 78 78 B/P (MAP) 209/104 (139) 215/117 (149) 208/94 (132) Pulse Ox 100 100 100 100 O2 Delivery Ventilator Ventilator Ventilator Ventilator 04/19/19 04/19/19 04/19/19 04/19/19 22:22 22:25 22:29 22:30 Pulse 78 78 78 80 B/P (MAP) 201/83 (122) 177/79 (111) 180/82 (114) 181/85 (117) Pulse Ox 100 100 100 100 O2 Delivery Ventilator Ventilator Ventilator Ventilator 04/19/19 04/19/19 04/19/19 04/19/19 22:35 22:40 22:44 22:45 Pulse 80 80 80 B/P (MAP) 181/78 (112) 182/83 (116) 182/83 (116) Pulse Ox 100 100 100 100 O2 Delivery Ventilator Ventilator Ventilator Ventilator 04/19/19 04/19/19 04/19/19 04/19/19 22:50 22:55 23:00 23:05 Pulse 82 80 82 80 B/P (MAP) 183/82 (115) 183/81 (115) 182/83 (116) 183/82 (115) Pulse Ox 100 99 100 100 O2 Delivery Ventilator Ventilator Ventilator Ventilator 04/19/19 04/19/19 04/19/19 04/20/19 23:10 23:30 23:45 00:00 Temp 97.8 97.8 Pulse 82 80 80 Resp 16 16 B/P (MAP) 182/85 (117) 157/73 (101) 153/68 (96) Pulse Ox 99 95 95 O2 Delivery Ventilator Ventilator Ventilator Mechanical Ventilator 04/20/19 04/20/19 04/20/19 04/20/19 00:01 00:15 00:30 00:45 Pulse 82 82 82 80 Resp 16 16 16 16 B/P (MAP) 147/60 (89) 153/66 (95) 150/71 (97) 158/65 (96) Pulse Ox 93 94 95 95 O2 Delivery Ventilator Ventilator Ventilator Ventilator 04/20/19 04/20/19 04/20/19 04/20/19 01:00 01:00 02:00 03:00 Pulse 82 73 74 Resp 16 20 20 B/P (MAP) 145/69 (94) 138/65 (89) 153/69 (97) Pulse Ox 95 95 95 100 O2 Delivery Ventilator Ventilator Ventilator Ventilator 04/20/19 04/20/19 04/20/19 04/20/19 03:20 04:00 04:00 05:00 Temp 98.1 98.1 Pulse 78 80 Resp 20 20 B/P (MAP) 166/77 (106) 146/66 (92) Pulse Ox 99 100 100 O2 Delivery Ventilator Mechanical Ventilator Ventilator Ventilator 04/20/19 04/20/19 04/20/19 04/20/19 05:22 06:00 07:00 08:00 Temp 98.6 98.6 Pulse 85 84 Resp 20 20 B/P (MAP) 156/67 (96) 160/68 (98) Pulse Ox 99 100 99 O2 Delivery Ventilator Ventilator Ventilator Mechanical Ventilator O2 Flow Rate 3.0 04/20/19 04/20/19 04/20/19 04/20/19 08:00 08:04 08:04 09:00 Temp 98.6 98.6 Pulse 90 88 Resp 19 20 B/P (MAP) 151/64 (93) 151/67 (95) Pulse Ox 96 99 99 O2 Delivery Ventilator Ventilator Ventilator Ventilator O2 Flow Rate 3.0 3.0 04/20/19 04/20/19 09:12 10:00 Pulse 91 Resp 16 B/P (MAP) 141/59 (86) Pulse Ox 99 99 O2 Delivery Ventilator Ventilator Intake and Output 04/19/19 04/19/19 04/20/19 15:00 23:00 07:00 Intake Total 0 ml Output Total 1875 ml Balance -1875 ml JUSTIN TAVAREZ MD Apr 20, 2019 10:59
[2019-04-20] MEDS ORDERED: DEXTROSE 50% 25 GM / 50ML DISP.SYRIN. IV PRN (11:00)
[2019-04-20] MEDS ORDERED: ALPRAZolam 0.5 MG TABLET PO PRN (11:00)
[2019-04-20] MEDS ORDERED: NITROGLYCERIN SUBLINGUAL 0.4 MG BOTTLE OF 25. SL PRN (11:00)
[2019-04-20] MEDS ORDERED: SODIUM BICARB ADULT 8.4% 50 MEQ/50 ML DISP.SYRIN. IV ONE (11:00)
[2019-04-20 11:10] LABS: % BANDS 4 % (0-9); % BASOS 1 % (0-3); % LYMPHS 6 % (24-48); % SEGS 89 % (35-66); ANISOCYTOSIS SLIGHT; PLT ESTIMATE ADEQUATE (ADEQUATE)
[2019-04-20] MEDS: PIPERACILLIN/TAZOBACTAM 2.25 GM in IV NORMAL SALINE 50ML 50 ML IV SCH ×2 (11:12→17:31)
[2019-04-20] MEDS ORDERED: PANTOPRAZOLE 40 MG TABLET.DR. PO SCH (12:00)
[2019-04-20] MEDS ORDERED: INSULIN LISPRO 300 UNITS/3 ML INSULN.PEN. SQ SCH ×2 (12:00)
[2019-04-20] MEDS ORDERED: METOPROLOL SUCC 24HR ER 50 MG TAB.ER.24H. PO SCH (12:00)
[2019-04-20] MEDS: INSULIN LISPRO 300 UNITS/3 ML INSULN.PEN. SQ SCH ×4 (12:00→18:25)
[2019-04-20] MEDS ORDERED: FLUTICASONE 50MCG/NASAL SPRAY 16GM BOTTLE. NS PRN (12:00)
[2019-04-20] MEDS: ASPIRIN CHEWABLE 81 MG TABLET. PO SCH (12:27)
[2019-04-20] MEDS: amLODIPine BESYLATE 5 MG TABLET PO SCH (12:29)
[2019-04-20] MEDS: APIXABAN 5 MG TABLET. PO SCH ×2 (12:29→21:17)
[2019-04-20] MEDS: DULoxetine HCL 30 MG CAPSULE.DR PO SCH ×2 (12:29→21:16)
[2019-04-20] MEDS: PREGABALIN 75 MG CAPSULE PO SCH ×2 (12:31→21:17)
[2019-04-20] MEDS: CILOSTAZOL 50 MG TABLET. PO SCH ×2 (12:31→21:16)
[2019-04-20] MEDS: LEVOTHYROXINE 50 MCG TABLET PO SCH (12:32)
[2019-04-20] MEDS: METOPROLOL TART IMMED RELEASE 25 MG TABLET. PO SCH ×2 (12:34→21:17)
[2019-04-20] MEDS: INSULIN GLARGINE 300 UNITS/3 ML INSULN.PEN. SQ SCH ×2 (13:02→21:28)
--- NOTE | 2019-04-20 13:08 | PDOC2 ---
CONSULT Date of Consult Date of Consult DATE: 04/20/19 TIME: 12:58 Reason for Consult Reason for Consult: JENNIFER on CKD Referring Physician Referring Physician: Dr. Roblero Identification/Chief Complaint Chief Complaint Unable to obtain, intubated on MV Source Source: Chart review History of Present Illness Reason for Visit: The patient is a 58-year-old morbidly obese patient with a BMI of 50. She had recent prolonged hospitalization at [facility] and was dced on 04/17 to [facility] She was at a rehab/skilled care facility where she was started to have some shortness of breath. The also reported altered level of consciousness as well with increased lethargy. She was not getting any better with the BiPAP. She was brought into Emergency Room where she was noted to be in worsening respiratory distress and is intubated She has a history of recurrent UTIs Last visit she reported chronic urinary urgency and incontinence. No Use of NSAID's . She has baseline CKD and is established with Dr. Santana of our group last appt was in 2018 , baseline Cr 1.2-1.5 . S/P Abd Angio 04/10 (IV contrast ) She has obstructive sleep apnea and obesity hypoventilation syndrome and has been on BiPAP at home along with oxygen via nasal cannula. Her chest x-ray showed vascular congestion post-intubation. PAST MEDICAL HISTORY: Significant for obstructive sleep apnea/obesity hypoventilation syndrome and chronic respiratory failure, history of diastolic heart failure, grade 2 diastolic dysfunction, history of type 2 diabetes,hypertension, WI, CKD, AFib. Past Medical History Cardiovascular: AFIB, CAD, HTN, Hyperlipidemia, Other Pulmonary: COPD, Pulmonary embolus, Pneumonia, Other CENTRAL NERVOUS SYSTEM: CVA, Periperal neuropathy GI: GERD, Other Heme/Onc: No pertinent hx Hepatobiliary: No pertinent hx Psych: Depression Musculoskeletal: Osteoarthritis Rheumatologic: Gout Infectious disease: No pertinent hx Renal/: UTI, Urinary Incontinence Endocrine: Diabetes, Hypothyroidism Past Surgical History Past Surgical History: Cholecystectomy, Hernia Repair, Hysterectomy, Other Family History Family History: Coronary Artery Disease, Diabetes Social History ALCOHOL: none Drugs: None Lives: with Family Current Problem List Problem List Problems Medical Problems: (1) Acute respiratory failure with hypoxia and hypercapnia Status: Acute (2) [id number] kidney injury Status: Acute (3) CHF (congestive heart failure) Status: Acute (4) COPD exacerbation Status: Acute Current Medications Current Medications Current Medications Albuterol Sulfate (Ventolin Neb Soln) 2.5 mg STK-MED ONCE .ROUTE ; Start 04/19/19 at 20:52; Stop 04/19/19 at 20:53; Status DC Ipratropium Premont (Atrovent) 0.5 mg 1X ONCE NEB Last administered on 04/19/19at 21:00; Start 04/19/19 at 21:00; Stop 04/19/19 at 21:01; Status DC Methylprednisolone Sodium Succinate (SOLU-Medrol 125MG VIAL) 250 mg 1X ONCE IV Last administered on 04/19/19at 21:08; Start 04/19/19 at 21:00; Stop 04/19/19 at 21:01; Status DC Albuterol Sulfate (Ventolin Neb Soln) 10 mg 1X ONCE CONT NEB Last administered on 04/19/19at 21:00; Start 04/19/19 at 21:00; Stop 04/19/19 at 21:01; Status DC Morphine Sulfate (Morphine Sulfate) 2 mg PRN Q15MIN PRN IV/SQ PAIN GREATER THAN 3/10 Last administered on 04/19/19at 21:14; Start 04/19/19 at 21:00; Stop 04/20/19 at 20:59 Furosemide (Lasix) 80 mg 1X ONCE IVP Last administered on 04/19/19at 21:20; Start 04/19/19 at 21:30; Stop 04/19/19 at 21:31; Status DC Propofol 50 ml @ As Directed STK-MED ONCE IV ; Start 04/19/19 at 21:42; Stop 04/19/19 at 21:43; Status DC Propofol 100 ml @ 0 mls/hr CONT PRN IV SEE PROTOCOL Last administered on 04/20/19at 11:10; Start 04/19/19 at 22:00 Etomidate (Amidate) 20 mg STK-MED ONCE IV ; Start 04/19/19 at 22:13; Stop 04/19/19 at 22:14; Status DC Vecuronium Premont (Norcuron Bolus) 10 mg STK-MED ONCE IV ; Start 04/19/19 at 22:13; Stop 04/19/19 at 22:14; Status DC Midazolam HCl (Versed) 5 mg 1X ONCE NS ; Start 04/19/19 at 22:30; Stop 04/19/19 at 22:31; Status DC Propofol 50 ml @ 1.551 mls/ hr 1X ONCE IV Last administered on 04/19/19at 21:47; Start 04/19/19 at 21:40; Stop 04/21/19 at 05:54 Vecuronium Premont (Norcuron Bolus) 20 mg 1X ONCE IV Last administered on 04/19/19at 21:39; Start 04/19/19 at 21:40; Stop 04/19/19 at 22:39; Status DC Etomidate (Amidate) 30 mg 1X ONCE IV Last administered on 04/19/19at 21:38; Start 04/19/19 at 21:40; Stop 04/19/19 at 22:39; Status DC Midazolam HCl (Versed) 5 mg 1X ONCE IV Last administered on 04/19/19at 22:23; Start 04/19/19 at 22:45; Stop 04/19/19 at 22:46; Status DC Albuterol/ Ipratropium (Duoneb) 3 ml RTQID NEB Last administered on 04/20/19at 12:23; Start 04/20/19 at 08:00 Albuterol Sulfate (Ventolin Neb Soln) 2.5 mg PRN Q4HRS PRN NEB SHORTNESS OF BREATH Last administered on 04/20/19at 03:20; Start 04/20/19 at 02:00 Heparin Sodium (Porcine) (Heparin Sodium) 5,000 unit Q8HRS SQ ; Start 04/20/19 at 14:00; Stop 04/20/19 at 14:00; Status DC Piperacillin Sod/ Tazobactam Sod (Zosyn Per Pharmacy) 1 each PRN DAILY PRN MC SEE COMMENTS; Start 04/20/19 at 10:00 Sodium Bicarbonate (Sodium Bicarb Adult 8.4% Syr) 50 meq 1X ONCE IV Last administered on 04/20/19at 11:11; Start 04/20/19 at 11:00; Stop 04/20/19 at 11:11; Status DC Piperacillin Sod/ Tazobactam Sod 2.25 gm/Sodium Chloride 50 ml @ 100 mls/hr Q6HRS IV Last administered on 04/20/19at 11:12; Start 04/20/19 at 12:00 Insulin Human Lispro (HumaLOG) 0-9 UNITS TIDWMEALS SQ ; Start 04/20/19 at 12:00; Stop 04/20/19 at 12:00; Status DC Dextrose (Dextrose 50%-Water Syringe) 12.5 gm PRN Q15MIN PRN IV SEE COMMENTS; Start 04/20/19 at 11:00 Alprazolam (Xanax) 0.5 mg PRN Q6HRS PRN PO ANXIETY / AGITATION; Start 04/20/19 at 11:00 Amlodipine Besylate (Norvasc) 5 mg DAILY PO Last administered on 04/20/19at 12:29; Start 04/20/19 at 12:00 Apixaban (Eliquis) 5 mg BID PO Last administered on 04/20/19at 12:29; Start 04/20/19 at 12:00 Aspirin (Children'S Aspirin) 81 mg DAILY PO Last administered on 04/20/19at 12:27; Start 04/20/19 at 12:00 Atorvastatin Calcium (Lipitor) 40 mg HS PO ; Start 04/20/19 at 21:00 Cilostazol (Pletal) 50 mg BID PO Last administered on 04/20/19at 12:31; Start 04/20/19 at 12:00 Acetaminophen/ Hydrocodone Bitart (Lortab 10/325) 1 tab PRN Q6HRS PRN PO SEVERE PAIN 7-10; Start 04/20/19 at 11:00 Insulin Glargine (Lantus) 75 units BID SQ ; Start 04/20/19 at 12:00 Insulin Human Lispro (HumaLOG) 30 units TIDWMEALS SQ ; Start 04/20/19 at 12:00; Stop 04/20/19 at 12:00; Status DC Metoprolol Succinate (Toprol Xl) 100 mg DAILY PO ; Start 04/20/19 at 12:00; Status Cancel Nitroglycerin (Nitrostat) 0.4 mg PRN Q5MIN PRN SL CP RATING > 1/10; Start 04/20/19 at 11:00 Nystatin (Nystop) 1 sally BID TP ; Start 04/20/19 at 12:00 Duloxetine HCl (Cymbalta) 60 mg BID PO Last administered on 04/20/19at 12:29; Start 04/20/19 at 12:00 Pantoprazole Sodium (Protonix) 40 mg DAILYAC PO ; Start 04/20/19 at 12:00; Stop 04/20/19 at 12:00; Status DC Fluticasone Propionate (Flonase) 2 spray PRN DAILY PRN NS ALLERGIES; Start 04/20/19 at 12:00 Hydralazine HCl (Apresoline) 50 mg TID PO ; Start 04/20/19 at 14:00 Levothyroxine Sodium (Synthroid) 50 mcg DAILY06 PO Last administered on 04/20/19at 12:32; Start 04/20/19 at 12:00 Pregabalin (Lyrica) 150 mg BID PO Last administered on 04/20/19at 12:31; Start 04/20/19 at 12:00 Tizanidine HCl (Zanaflex) 4 mg PRN Q8HRS PRN PO MUSCLE SPASMS; Start 04/20/19 at 11:00 Famotidine (Pepcid Vial) 20 mg DAILY IVP ; Start 04/21/19 at 09:00 Insulin Human Lispro (HumaLOG) 0-9 UNITS Q6HRS SQ ; Start 04/20/19 at 12:00 Insulin Human Lispro (HumaLOG) 30 units Q6HRS SQ ; Start 04/20/19 at 12:00 Pantoprazole Sodium (PROTONIX VIAL for IV PUSH) 40 mg DAILYAC IVP ; Start 04/21/19 at 07:30 Metoprolol Tartrate (Lopressor) 50 mg BID PO Last administered on 04/20/19at 12:34; Start 04/20/19 at 12:30 Active Scripts Active Humalog (Insulin Lispro) 100 Unit/1 Ml Insuln.pen 30 Units SQ TIDWMEALS 30 Days Toprol Xl (Metoprolol Succinate) 50 Mg Tab.er.24h 100 Mg PO DAILY Hydralazine Hcl 25 Mg Tablet 50 Mg PO TID Cilostazol 50 Mg Tablet 50 Mg PO BID Xanax (Alprazolam) 0.5 Mg Tablet 0.5 Mg PO PRN Q6HRS PRN Ondansetron Odt (Ondansetron) 4 Mg Tab.rapdis 1 Tab PO PRN Q6-8HRS Nystop (Nystatin) 60 Gm Powder 1 Sally TP BID 30 Days Colace (Docusate Sodium) 100 Mg Capsule 100 Mg PO BID Senna-Time S Tablet (Sennosides/Docusate Sodium) 1 Each Tablet 1 Tab PO BID Nitrostat (Nitroglycerin) 0.4 Mg Tab.subl 0.4 Mg SL PRN Q5MIN PRN 30 Days Reported Lantus Solostar (Insulin Glargine,Hum.rec.anlog) 100 Unit/1 Ml Insuln.pen 75 Unit SQ BID Tizanidine Hcl 4 Mg Tablet 1 Tab PO TID Duloxetine Hcl 60 Mg Capsule.dr 60 Mg PO BID Trulicity (Dulaglutide) 0.75 Mg/0.5 Ml Pen.injctr 0.75 Mg SUBCUT QFR Amlodipine Besylate 5 Mg Tablet 5 Mg PO DAILY Ventolin Hfa Inhaler (Albuterol Sulfate) 18 Gm Hfa.aer.ad 2 Puff INH PRN Q4HRS PRN Duoneb 0.5-3(2.5) Mg/3 Ml (Albuterol/Ipratropium) 3 Ml Ampul.neb 3 Ml NEB PRN QID PRN Flonase Allergy Relief (Fluticasone Propionate) 9.9 Ml War.susp 2 Sprays NS PRN PRN Clonidine Hcl 0.1 Mg Tablet 1 Tab PO PRN PRN When SBP >150 Eliquis (Apixaban) 5 Mg Tablet 5 Mg PO BID Lyrica (Pregabalin) 150 Mg Capsule 1 Cap PO BID Atorvastatin Calcium 20 Mg Tablet 2 Tab PO HS Nexium Capsule (Esomeprazole Magnesium) 40 Mg Capsule.dr 1 Cap PO BID Aspirin 81 Mg Tab.chew 1 Tab PO DAILY Levothyroxine Sodium 50 Mcg Tablet 1 Tab PO DAILY Allergies Allergies: Coded Allergies: I S O L A T I O N *CONTACT* (Verified Allergy, Unknown, 04/08/19) ESBL No Known Medication Allergies (Verified Allergy, Unknown, 04/08/19) ROS Review of System Intubated Physical Exam Physical Exam GENERAL: intubated and sedated. HEENT: Sclerae nonicteric. NECK: Supple. LUNGS: Diminished breath sounds. CARDIOVASCULAR: Regular rate and rhythm. ABDOMEN: Soft, nontender EXTREMITIES: Bilateral pitting edema. NEURO Sedated Mcgee + Vital Signs Vital Signs Date Time Temp Pulse Resp B/P (MAP) Pulse Ox O2 Delivery O2 Flow Rate FiO2 04/20/19 12:44 94 Ventilator 7/27/19 12:34 98 148/64 04/20/19 10:00 16 04/20/19 09:00 3.0 04/20/19 08:00 98.6 98.6 Assessment & Plan JENNIFER - ATN Worsening renal function ,Holding Diuretics Hx of Recurrent UTI, Check UA , has Mcgee with good UOP Normal US 04/02/19 E-Lytes stable , Currently No emergent Indication for HD Supportive care, Monitor CKD stage 3- Follows with Dr. Santana,Last office visit 01/2018 Cr ranging from 1.0- 1.5 since 2017 Labs at [facility] Cr 1.4-2.1 Anemia- Hgb stable Acute hypercapnic respiratory failure: Intubated and On MV CHF with diastolic dysfunction and CAD - preserved ejection fraction on a recent echocardiogram. Paroxysmal atrial fibrillation: Presently in sinus rhythm. On Eliquis and her beta-ryanne. Diabetes mellitus type 2, insulin dependent: Peripheral artery disease: diagnosed on her last admission,medical management was advised Chronic lymphedema: apparently improved Hypertension. Continue her usual medications and adjust as indicated. Hypernatremia- Restart Home BP meds except Spironolactone Can re start Bumex(Home med) at a lower dose 1 mg QD Hyperkalemia- Monitor K in diet and restart Bumex UTI- Klebsiella urinary tract infection from 03/22/2019 On IV Abx DM- Uncontrolled Per primary HTN- BP stable Multiple antihypertensives at home CVI - recently dced from [facility] Labs Labs Laboratory Tests Test 04/19/19 20:55 04/19/19 22:00 04/20/19 01:05 04/20/19 04:25 White Blood Count 11.8 x10^3/uL (4.0-11.0) 9.6 x10^3/uL (4.0-11.0) Red Blood Count 3.22 x10^6/uL (3.50-5.40) 3.15 x10^6/uL (3.50-5.40) Hemoglobin 8.6 g/dL (12.0-15.5) 8.5 g/dL (12.0-15.5) Hematocrit 27.5 % (36.0-47.0) 26.5 % (36.0-47.0) Mean Corpuscular Volume 85 fL (79-100) 84 fL (79-100) Mean Corpuscular Hemoglobin 27 pg (25-35) 27 pg (25-35) Mean Corpuscular Hemoglobin Concent 31 g/dL (31-37) 32 g/dL (31-37) Red Cell Distribution Width 17.1 % (11.5-14.5) 17.0 % (11.5-14.5) Platelet Count 295 x10^3/uL (140-400) 280 x10^3/uL (140-400) Neutrophils (%) (Auto) 71 % (31-73) 93 % (31-73) Lymphocytes (%) (Auto) 17 % (24-48) 5 % (24-48) Monocytes (%) (Auto) 9 % (0-9) 2 % (0-9) Eosinophils (%) (Auto) 2 % (0-3) 0 % (0-3) Basophils (%) (Auto) 1 % (0-3) 0 % (0-3) Neutrophils # (Auto) 8.3 x10^3/uL (1.8-7.7) 8.9 x10^3/uL (1.8-7.7) Lymphocytes # (Auto) 2.1 x10^3/uL (1.0-4.8) 0.5 x10^3/uL (1.0-4.8) Monocytes # (Auto) 1.0 x10^3/uL (0.0-1.1) 0.2 x10^3/uL (0.0-1.1) Eosinophils # (Auto) 0.3 x10^3/uL (0.0-0.7) 0.0 x10^3/uL (0.0-0.7) Basophils # (Auto) 0.1 x10^3/uL (0.0-0.2) 0.0 x10^3/uL (0.0-0.2) Sodium Level 138 mmol/L (136-145) 138 mmol/L (136-145) Potassium Level 5.2 mmol/L (3.5-5.1) 4.9 mmol/L (3.5-5.1) Chloride Level 102 mmol/L (98-107) 101 mmol/L (98-107) Carbon Dioxide Level 27 mmol/L (21-32) 24 mmol/L (21-32) Anion Gap 9 (6-14) 13 (6-14) Blood Urea Nitrogen 58 mg/dL (7-20) 60 mg/dL (7-20) Creatinine 3.2 mg/dL (0.6-1.0) 3.1 mg/dL (0.6-1.0) Estimated GFR (Cockcroft-Gault) 15.0 15.5 BUN/Creatinine Ratio 18 (6-20) 19 (6-20) Glucose Level 127 mg/dL (70-99) 219 mg/dL (70-99) Calcium Level 8.5 mg/dL (8.5-10.1) 8.4 mg/dL (8.5-10.1) Magnesium Level 2.3 mg/dL (1.8-2.4) Total Bilirubin 0.2 mg/dL (0.2-1.0) 0.3 mg/dL (0.2-1.0) Aspartate Amino Transf (AST/SGOT) 35 U/L (15-37) 33 U/L (15-37) Alanine Aminotransferase (ALT/SGPT) 35 U/L (14-59) 34 U/L (14-59) Alkaline Phosphatase 129 U/L (46-116) 141 U/L (46-116) Troponin I Quantitative < 0.017 ng/mL (0.000-0.055) YI-Wva-V-Type Natriuretic Peptide 2699 pg/mL (0-124) Total Protein 7.3 g/dL (6.4-8.2) 7.0 g/dL (6.4-8.2) Albumin 3.0 g/dL (3.4-5.0) 2.6 g/dL (3.4-5.0) Albumin/Globulin Ratio 0.7 (1.0-1.7) 0.6 (1.0-1.7) O2 Saturation 99 % (92-99) 93 % (92-99) Arterial Blood pH 7.22 (7.35-7.45) 7.24 (7.35-7.45) Arterial Blood pCO2 at Patient Temp 63 mmHg (35-46) 57 mmHg (35-46) Arterial Blood pO2 at Patient Temp 394 mmHg (75-108) 79 mmHg (75-108) Arterial Blood HCO3 25 mmol/L (21-28) 24 mmol/L (21-28) Arterial Blood Base Excess -3 mmol/L (-3-3) -4 mmol/L (-3-3) FiO2 60 Segmented Neutrophils % 89 % (35-66) Band Neutrophils % 4 % (0-9) Lymphocytes % 6 % (24-48) Basophils % 1 % (0-3) Platelet Estimate Adequate (ADEQUATE) Basophilic Stippling Present Anisocytosis Slight Procalcitonin 0.24 ng/mL (0.00-0.10) Test 04/20/19 07:27 04/20/19 08:15 Glucose (Fingerstick) 201 mg/dL (70-99) O2 Saturation 97 % (92-99) Arterial Blood pH 7.43 (7.35-7.45) Arterial Blood pCO2 at Patient Temp 36 mmHg (35-46) Arterial Blood pO2 at Patient Temp 105 mmHg (75-108) Arterial Blood HCO3 23 mmol/L (21-28) Arterial Blood Base Excess -1 mmol/L (-3-3) FiO2 60 Laboratory Tests Test 04/19/19 20:55 04/19/19 22:00 04/20/19 01:05 04/20/19 04:25 White Blood Count 11.8 x10^3/uL (4.0-11.0) 9.6 x10^3/uL (4.0-11.0) Red Blood Count 3.22 x10^6/uL (3.50-5.40) 3.15 x10^6/uL (3.50-5.40) Hemoglobin 8.6 g/dL (12.0-15.5) 8.5 g/dL (12.0-15.5) Hematocrit 27.5 % (36.0-47.0) 26.5 % (36.0-47.0) Mean Corpuscular Volume 85 fL (79-100) 84 fL (79-100) Mean Corpuscular Hemoglobin 27 pg (25-35) 27 pg (25-35) Mean Corpuscular Hemoglobin Concent 31 g/dL (31-37) 32 g/dL (31-37) Red Cell Distribution Width 17.1 % (11.5-14.5) 17.0 % (11.5-14.5) Platelet Count 295 x10^3/uL (140-400) 280 x10^3/uL (140-400) Neutrophils (%) (Auto) 71 % (31-73) 93 % (31-73) Lymphocytes (%) (Auto) 17 % (24-48) 5 % (24-48) Monocytes (%) (Auto) 9 % (0-9) 2 % (0-9) Eosinophils (%) (Auto) 2 % (0-3) 0 % (0-3) Basophils (%) (Auto) 1 % (0-3) 0 % (0-3) Neutrophils # (Auto) 8.3 x10^3/uL (1.8-7.7) 8.9 x10^3/uL (1.8-7.7) Lymphocytes # (Auto) 2.1 x10^3/uL (1.0-4.8) 0.5 x10^3/uL (1.0-4.8) Monocytes # (Auto) 1.0 x10^3/uL (0.0-1.1) 0.2 x10^3/uL (0.0-1.1) Eosinophils # (Auto) 0.3 x10^3/uL (0.0-0.7) 0.0 x10^3/uL (0.0-0.7) Basophils # (Auto) 0.1 x10^3/uL (0.0-0.2) 0.0 x10^3/uL (0.0-0.2) Sodium Level 138 mmol/L (136-145) 138 mmol/L (136-145) Potassium Level 5.2 mmol/L (3.5-5.1) 4.9 mmol/L (3.5-5.1) Chloride Level 102 mmol/L (98-107) 101 mmol/L (98-107) Carbon Dioxide Level 27 mmol/L (21-32) 24 mmol/L (21-32) Anion Gap 9 (6-14) 13 (6-14) Blood Urea Nitrogen 58 mg/dL (7-20) 60 mg/dL (7-20) Creatinine 3.2 mg/dL (0.6-1.0) 3.1 mg/dL (0.6-1.0) Estimated GFR (Cockcroft-Gault) 15.0 15.5 BUN/Creatinine Ratio 18 (6-20) 19 (6-20) Glucose Level 127 mg/dL (70-99) 219 mg/dL (70-99) Calcium Level 8.5 mg/dL (8.5-10.1) 8.4 mg/dL (8.5-10.1) Magnesium Level 2.3 mg/dL (1.8-2.4) Total Bilirubin 0.2 mg/dL (0.2-1.0) 0.3 mg/dL (0.2-1.0) Aspartate Amino Transf (AST/SGOT) 35 U/L (15-37) 33 U/L (15-37) Alanine Aminotransferase (ALT/SGPT) 35 U/L (14-59) 34 U/L (14-59) Alkaline Phosphatase 129 U/L (46-116) 141 U/L (46-116) Troponin I Quantitative < 0.017 ng/mL (0.000-0.055) JK-Svo-Q-Type Natriuretic Peptide 2699 pg/mL (0-124) Total Protein 7.3 g/dL (6.4-8.2) 7.0 g/dL (6.4-8.2) Albumin 3.0 g/dL (3.4-5.0) 2.6 g/dL (3.4-5.0) Albumin/Globulin Ratio 0.7 (1.0-1.7) 0.6 (1.0-1.7) O2 Saturation 99 % (92-99) 93 % (92-99) Arterial Blood pH 7.22 (7.35-7.45) 7.24 (7.35-7.45) Arterial Blood pCO2 at Patient Temp 63 mmHg (35-46) 57 mmHg (35-46) Arterial Blood pO2 at Patient Temp 394 mmHg (75-108) 79 mmHg (75-108) Arterial Blood HCO3 25 mmol/L (21-28) 24 mmol/L (21-28) Arterial Blood Base Excess -3 mmol/L (-3-3) -4 mmol/L (-3-3) FiO2 60 Segmented Neutrophils % 89 % (35-66) Band Neutrophils % 4 % (0-9) Lymphocytes % 6 % (24-48) Basophils % 1 % (0-3) Platelet Estimate Adequate (ADEQUATE) Basophilic Stippling Present Anisocytosis Slight Procalcitonin 0.24 ng/mL (0.00-0.10) Test 04/20/19 07:27 04/20/19 08:15 Glucose (Fingerstick) 201 mg/dL (70-99) O2 Saturation 97 % (92-99) Arterial Blood pH 7.43 (7.35-7.45) Arterial Blood pCO2 at Patient Temp 36 mmHg (35-46) Arterial Blood pO2 at Patient Temp 105 mmHg (75-108) Arterial Blood HCO3 23 mmol/L (21-28) Arterial Blood Base Excess -1 mmol/L (-3-3) FiO2 60 Review All relevant outside records, renal labs, imaging studies, telemetry/EKG's were reviewed. EVERTON HE MD Apr 20, 2019 13:08
[2019-04-20] MEDS: NYSTATIN TOPICAL POWDER 15GM BOTTLE. TP SCH ×2 (13:12→21:17)
[2019-04-20] MEDS ORDERED: HEPARIN for SUB-Q USE 5,000 UNIT/ML VIAL. SQ SCH (14:00)
--- NOTE | 2019-04-20 14:04 | HP ---
ADMIT DATE: 04/19/2019 CHIEF COMPLAINT: Shortness of breath. HISTORY OF PRESENT ILLNESS: The patient is a 58-year-old female with a history of chronic obstructive pulmonary disease and obstructive sleep apnea, who was brought to the emergency room with the above complaint. She had just been discharged from [facility] on 04/16/2019 after a long stay for treatment of multiple medical issues. She had transferred to [facility] where she began to have increasing shortness of breath. In the emergency room, she was found to be in moderate respiratory distress. She was intubated and admitted for further care. PAST MEDICAL HISTORY: Paroxysmal atrial fibrillation, coronary artery disease, congestive heart failure with diastolic dysfunction, chronic obstructive pulmonary disease, diabetes mellitus type 2 insulin dependent, hypertension, previous myocardial infarction, chronic kidney disease, lymphedema, peripheral artery disease, obstructive sleep apnea, hypothyroidism, gastroesophageal reflux disease, depression, osteoarthritis, chronic back pain, and obesity hypoventilation syndrome. PAST SURGICAL HISTORY: Cholecystectomy, hernia repair, hysterectomy, angioplasty with stent placement, lumbar laminectomy, thoracotomy, and lumpectomy right breast. ALLERGIES: The patient has no known drug allergies. MEDICATIONS AT ADMISSION: Albuterol p.r.n., Xanax 0.5 mg p.r.n., amlodipine 5 mg daily, apixaban 5 mg b.i.d., aspirin 81 mg daily, atorvastatin 40 mg at bedtime, cilostazol 50 mg b.i.d., clonidine 0.1 mg p.r.n., Trulicity 0.5 mg one injection weekly, duloxetine 60 mg b.i.d., Nexium 40 mg daily, hydralazine 50 mg t.i.d., Lantus insulin 75 units b.i.d., Humalog insulin 30 units t.i.d. before meals, levothyroxine 50 mcg daily, Toprol-XL 50 or 100 mg daily, dose is unclear, Lyrica 150 mg b.i.d., and tizanidine 4 mg t.i.d. FAMILY HISTORY: Noncontributory. SOCIAL HISTORY: The patient is and lived at home with her prior to her last admission. The patient has a long smoking history but has not smoked cigarettes recently. REVIEW OF SYSTEMS: A brief review was obtained from the patient's family. They report that her breathing had become increasingly more difficult for her as in the HPI. They noticed that she seemed confused, which has happened in the past when her carbon dioxide level was too high. She did not complain of chest pain or palpitations. There was no abdominal pain, nausea, or vomiting. The chronic lymphedema in her legs had looked much improved to her recently. PHYSICAL EXAMINATION: GENERAL: The patient is sedated. She is resting quietly on the ventilator. HEENT: Eyes are closed. Mucous membranes are moist. NECK: Supple, without lymphadenopathy. CHEST: Breath sounds decreased, but otherwise clear to auscultation anteriorly. CARDIOVASCULAR: Regular rhythm without murmur. ABDOMEN: Soft, nontender, normoactive bowel sounds are present. EXTREMITIES: Bilateral lower extremities show mild pitting edema. Gauze wraps are in place on her lower legs. ASSESSMENT AND PLAN: 1. Acute hypercapnic respiratory failure: The patient's symptoms gradually worsened at [facility]. She is now stable on the ventilator. We will continue management per Dr. Sanches. 2. Acute renal failure with chronic kidney disease: The patient's creatinine was significantly elevated at 3.2 at admission. Her baseline during her last hospital stay was around 1.5. We will hold her diuretics for now. A consult with Nephrology is pending. 3. Congestive heart failure with diastolic dysfunction and history of coronary artery disease: The patient did have a preserved ejection fraction on a recent echocardiogram. We will hold her diuretics for now. Her coronary artery disease has been considered stable. 4. Paroxysmal atrial fibrillation: The patient is presently in sinus rhythm. We will continue Eliquis and her beta-ryanne. 5. Diabetes mellitus type 2, insulin dependent: Anticipate some hyperglycemia as the patient received 250 mg of Solu-Medrol in the emergency room yesterday. Fingersticks and insulins have been ordered for her. 6. Peripheral artery disease: This was diagnosed on her last admission, but medical management was advised at that time. We will continue her on her Pletal. 7. Chronic lymphedema: This has apparently improved. We will continue wraps and elevation. 8. Hypertension. Continue her usual medications and adjust as indicated. JUSTIN TAVAREZ MD DR: MARANDA/apolinar JOB#: [id number] / [id number] GREGG
--- NOTE | 2019-04-20 14:07 | EKG ---
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
[2019-04-20 15:19] LABS: BILIRUBIN,URINE NEGATIVE (NEG); CLARITY,URINE CLOUDY; COLOR,URINE YELLOW; NITRITE,URINE NEGATIVE (NEG); PROTEIN,URINE 100 mg/dL (NEG-TRACE); UROBILINOGEN,URINE 0.2 mg/dL (0.2 mg/dL)
[2019-04-20 15:30] LABS: BACTERIA,URINE MOD /HPF (0-FEW); RBC,URINE 0 /HPF (0-2); SQUAMOUS EPITHELIAL CELL,UR MOD /LPF; WBC,URINE TNTC /HPF (0-4)
[2019-04-20] MEDS ORDERED: ACETAMINOPHEN 650 MG/20.3 ML SOLUTION. PEG PRN (16:00)
[2019-04-20] MEDS: ATORVASTATIN CALCIUM 20 MG TABLET PO SCH (21:16)
[2019-04-21] VITALS (24 sets, daily range): BP systolic 93–151; BP diastolic 42–70
[2019-04-21] MEDS: PIPERACILLIN/TAZOBACTAM 2.25 GM in IV NORMAL SALINE 50ML 50 ML IV SCH ×4 (00:03→17:24)
[2019-04-21] MEDS: PROPOFOL 100 ML IV PRN ×8 (00:03→21:05)
[2019-04-21] MEDS: INSULIN LISPRO 300 UNITS/3 ML INSULN.PEN. SQ SCH ×8 (00:05→17:32)
[2019-04-21 05:42] LABS: CALCIUM 8.4 mg/dL (8.5-10.1); CREATININE 2.4 mg/dL (0.6-1.0); GFR 20.9; POTASSIUM 4.6 mmol/L (3.5-5.1)
[2019-04-21] MEDS: LEVOTHYROXINE 50 MCG TABLET PO SCH (05:58)
[2019-04-21] MEDS: PANTOPRAZOLE IV PUSH 40 MG VIAL. IVP SCH (07:47)
[2019-04-21] MEDS: IPRATRPIUM/ALBUTEROL 0.5/2.5MG 3 ML NEBU. NEB SCH ×4 (08:15→20:03)
[2019-04-21] MEDS: VENLAFAXINE 50 MG TABLET. NG SCH ×3 (08:36→21:03)
[2019-04-21] MEDS: ASPIRIN CHEWABLE 81 MG TABLET. PO SCH (08:37)
[2019-04-21] MEDS: APIXABAN 5 MG TABLET. PO SCH ×2 (08:37→21:03)
[2019-04-21] MEDS: METOPROLOL TART IMMED RELEASE 25 MG TABLET. PO SCH ×2 (08:38→21:04)
[2019-04-21] MEDS: PREGABALIN 75 MG CAPSULE PO SCH ×2 (08:39→21:03)
[2019-04-21] MEDS: CILOSTAZOL 50 MG TABLET. PO SCH ×2 (08:40→21:03)
[2019-04-21] MEDS: amLODIPine BESYLATE 5 MG TABLET PO SCH (08:40)
[2019-04-21] MEDS: NYSTATIN TOPICAL POWDER 15GM BOTTLE. TP SCH ×2 (09:00→21:03)
[2019-04-21] MEDS ORDERED: FAMOTIDINE 20 MG/2 ML VIAL IVP SCH (09:00)
[2019-04-21] MEDS: INSULIN GLARGINE 300 UNITS/3 ML INSULN.PEN. SQ SCH ×2 (09:18→21:00)
[2019-04-21 09:22] LABS: BASE EXCESS ABG 6 mmol/L (-3-3); HCO3 ABG 30 mmol/L (21-28); PCO2 ABG 40 mmHg (35-46); SAT O2 ABG 85 % (92-99)
[2019-04-21 09:24] LABS: FIO2 ABG 50; PO2 ABG 50 mmHg (75-108)
--- NOTE | 2019-04-21 09:34 | RAD ---
AP chest. HISTORY: Intubated Portable AP view was taken of the chest. Endotracheal tube and NG tube are unchanged. There is been an increase density in the left lung base probable increased pleural effusion. There are bibasilar and diffuse infiltrates or edema. There is been a mild increase infiltrate in the medial right lung base and probably also in the left lung base. IMPRESSION: 1. Endotracheal tube and NG tube unchanged. 2. Increased density left lung base from increased pleural effusion or increased atelectasis or infiltrate. 3. Mild increased atelectasis or infiltrate right lung base. Electronically signed by: Chriss Florentino MD (04/21/2019 9:31 AM) [facility]
--- NOTE | 2019-04-21 09:51 | PDOC ---
PROGRESS NOTES Subjective Subjective Patient sedated on vent. Objective Objective Vital Signs Date Time Temp Pulse Resp B/P (MAP) Pulse Ox O2 Delivery O2 Flow Rate FiO2 04/21/19 08:43 81 137/65 04/21/19 08:15 97 Ventilator 04/21/19 08:00 99.5 19 99.5 04/20/19 09:00 3.0 Intake and Output 04/21/19 06:59 Intake Total 1828.0 ml Output Total 2215 ml Balance -387.0 ml Intake Oral 0 ml IV Total 1130.0 ml Tube Feeding 498 ml Other 200 ml Output Urine Total 2215 ml Gastric Drainage Total 0 ml # Bowel Movements 2 Physical Exam Abdomen: Normal bowel sounds, Soft, No tenderness Heart: Regular rate Extremities: Other (mild pitting edema bilateral LE's) General: No acute distress Lungs: Other (few coarse BS throughout anteriorly) Assessment Assessment Problems Medical Problems: (1) Acute respiratory failure with hypoxia and hypercapnia Status: Acute (2) [place] kidney injury Status: Acute (3) CHF (congestive heart failure) Status: Acute (4) COPD exacerbation Status: Acute Plan Plan of Care 1. Acute respiratory failure with COPD - stable on vent, continue management per Dr Sanches. On Zosyn now. Will consult ID as they saw her during her last admission for antibiotic management. 2. acute renal failure with CKD - lab improved from admission. Continue management per Ren[facility]. Diuretics on hold. 3. DM2 - controlled, continue insulins. 4. CHF with diastolic dysfunction - presently stable. 5. possible UTI - urine with WBC's TNTC but also moderate squamous cells in specimen. Culture ordered. 6. HTN - controlled with present meds. 7. PAF - presently in sinus, continue Eliquis and Metoprolol. HR good. Comment Review of Relevant I have reviewed the following items jim (where applicable) has been applied. Labs Laboratory Tests Test 04/19/19 20:55 04/19/19 22:00 04/20/19 01:05 04/20/19 01:09 White Blood Count 11.8 x10^3/uL (4.0-11.0) Red Blood Count 3.22 x10^6/uL (3.50-5.40) Hemoglobin 8.6 g/dL (12.0-15.5) Hematocrit 27.5 % (36.0-47.0) Mean Corpuscular Volume 85 fL (79-100) Mean Corpuscular Hemoglobin 27 pg (25-35) Mean Corpuscular Hemoglobin Concent 31 g/dL (31-37) Red Cell Distribution Width 17.1 % (11.5-14.5) Platelet Count 295 x10^3/uL (140-400) Neutrophils (%) (Auto) 71 % (31-73) Lymphocytes (%) (Auto) 17 % (24-48) Monocytes (%) (Auto) 9 % (0-9) Eosinophils (%) (Auto) 2 % (0-3) Basophils (%) (Auto) 1 % (0-3) Neutrophils # (Auto) 8.3 x10^3/uL (1.8-7.7) Lymphocytes # (Auto) 2.1 x10^3/uL (1.0-4.8) Monocytes # (Auto) 1.0 x10^3/uL (0.0-1.1) Eosinophils # (Auto) 0.3 x10^3/uL (0.0-0.7) Basophils # (Auto) 0.1 x10^3/uL (0.0-0.2) Sodium Level 138 mmol/L (136-145) Potassium Level 5.2 mmol/L (3.5-5.1) Chloride Level 102 mmol/L (98-107) Carbon Dioxide Level 27 mmol/L (21-32) Anion Gap 9 (6-14) Blood Urea Nitrogen 58 mg/dL (7-20) Creatinine 3.2 mg/dL (0.6-1.0) Estimated GFR (Cockcroft-Gault) 15.0 BUN/Creatinine Ratio 18 (6-20) Glucose Level 127 mg/dL (70-99) Calcium Level 8.5 mg/dL (8.5-10.1) Magnesium Level 2.3 mg/dL (1.8-2.4) Total Bilirubin 0.2 mg/dL (0.2-1.0) Aspartate Amino Transf (AST/SGOT) 35 U/L (15-37) Alanine Aminotransferase (ALT/SGPT) 35 U/L (14-59) Alkaline Phosphatase 129 U/L (46-116) Troponin I Quantitative < 0.017 ng/mL (0.000-0.055) [id number]-Type Natriuretic Peptide 2699 pg/mL (0-124) Total Protein 7.3 g/dL (6.4-8.2) Albumin 3.0 g/dL (3.4-5.0) Albumin/Globulin Ratio 0.7 (1.0-1.7) O2 Saturation 99 % (92-99) 93 % (92-99) Arterial Blood pH 7.22 (7.35-7.45) 7.24 (7.35-7.45) Arterial Blood pCO2 at Patient Temp 63 mmHg (35-46) 57 mmHg (35-46) Arterial Blood pO2 at Patient Temp 394 mmHg (75-108) 79 mmHg (75-108) Arterial Blood HCO3 25 mmol/L (21-28) 24 mmol/L (21-28) Arterial Blood Base Excess -3 mmol/L (-3-3) -4 mmol/L (-3-3) FiO2 60 Nasal Screen MRSA (PCR) Negative (Negative) Test 04/20/19 04:25 04/20/19 07:27 04/20/19 08:15 04/20/19 12:25 White Blood Count 9.6 x10^3/uL (4.0-11.0) Red Blood Count 3.15 x10^6/uL (3.50-5.40) Hemoglobin 8.5 g/dL (12.0-15.5) Hematocrit 26.5 % (36.0-47.0) Mean Corpuscular Volume 84 fL (79-100) Mean Corpuscular Hemoglobin 27 pg (25-35) Mean Corpuscular Hemoglobin Concent 32 g/dL (31-37) Red Cell Distribution Width 17.0 % (11.5-14.5) Platelet Count 280 x10^3/uL (140-400) Neutrophils (%) (Auto) 93 % (31-73) Lymphocytes (%) (Auto) 5 % (24-48) Monocytes (%) (Auto) 2 % (0-9) Eosinophils (%) (Auto) 0 % (0-3) Basophils (%) (Auto) 0 % (0-3) Neutrophils # (Auto) 8.9 x10^3/uL (1.8-7.7) Lymphocytes # (Auto) 0.5 x10^3/uL (1.0-4.8) Monocytes # (Auto) 0.2 x10^3/uL (0.0-1.1) Eosinophils # (Auto) 0.0 x10^3/uL (0.0-0.7) Basophils # (Auto) 0.0 x10^3/uL (0.0-0.2) Segmented Neutrophils % 89 % (35-66) Band Neutrophils % 4 % (0-9) Lymphocytes % 6 % (24-48) Basophils % 1 % (0-3) Platelet Estimate Adequate (ADEQUATE) Basophilic Stippling Present Anisocytosis Slight Sodium Level 138 mmol/L (136-145) Potassium Level 4.9 mmol/L (3.5-5.1) Chloride Level 101 mmol/L (98-107) Carbon Dioxide Level 24 mmol/L (21-32) Anion Gap 13 (6-14) Blood Urea Nitrogen 60 mg/dL (7-20) Creatinine 3.1 mg/dL (0.6-1.0) Estimated GFR (Cockcroft-Gault) 15.5 BUN/Creatinine Ratio 19 (6-20) Glucose Level 219 mg/dL (70-99) Calcium Level 8.4 mg/dL (8.5-10.1) Total Bilirubin 0.3 mg/dL (0.2-1.0) Aspartate Amino Transf (AST/SGOT) 33 U/L (15-37) Alanine Aminotransferase (ALT/SGPT) 34 U/L (14-59) Alkaline Phosphatase 141 U/L (46-116) Total Protein 7.0 g/dL (6.4-8.2) Albumin 2.6 g/dL (3.4-5.0) Albumin/Globulin Ratio 0.6 (1.0-1.7) Procalcitonin 0.24 ng/mL (0.00-0.10) Glucose (Fingerstick) 201 mg/dL (70-99) 216 mg/dL (70-99) O2 Saturation 97 % (92-99) Arterial Blood pH 7.43 (7.35-7.45) Arterial Blood pCO2 at Patient Temp 36 mmHg (35-46) Arterial Blood pO2 at Patient Temp 105 mmHg (75-108) Arterial Blood HCO3 23 mmol/L (21-28) Arterial Blood Base Excess -1 mmol/L (-3-3) FiO2 60 Test 04/20/19 14:55 04/20/19 18:02 04/20/19 21:24 04/21/19 00:04 Urine Collection Type U cath Urine Color Yellow Urine Clarity Cloudy Urine pH 5.0 Urine Specific [place] 1.020 Urine Protein 100 mg/dL (NEG-TRACE) Urine Glucose (UA) Negative mg/dL (NEG) Urine Ketones (Stick) Negative mg/dL (NEG) Urine Blood Negative (NEG) Urine Nitrite Negative (NEG) Urine Bilirubin Negative (NEG) Urine Urobilinogen Dipstick 0.2 mg/dL (0.2 mg/dL) Urine Leukocyte Esterase Large (NEG) Urine RBC 0 /HPF (0-2) Urine WBC Tntc /HPF (0-4) Urine Squamous Epithelial Cells Mod /LPF Urine Bacteria Mod /HPF (0-FEW) Glucose (Fingerstick) 212 mg/dL (70-99) 195 mg/dL (70-99) 197 mg/dL (70-99) Test 04/21/19 04:30 04/21/19 06:01 04/21/19 08:00 04/21/19 09:13 Sodium Level 141 mmol/L (136-145) Potassium Level 4.6 mmol/L (3.5-5.1) Chloride Level 104 mmol/L (98-107) Carbon Dioxide Level 27 mmol/L (21-32) Anion Gap 10 (6-14) Blood Urea Nitrogen 65 mg/dL (7-20) Creatinine 2.4 mg/dL (0.6-1.0) Estimated GFR (Cockcroft-Gault) 20.9 Glucose Level 151 mg/dL (70-99) Calcium Level 8.4 mg/dL (8.5-10.1) Glucose (Fingerstick) 138 mg/dL (70-99) 134 mg/dL (70-99) O2 Saturation 85 % (92-99) Arterial Blood pH 7.49 (7.35-7.45) Arterial Blood pCO2 at Patient Temp 40 mmHg (35-46) Arterial Blood pO2 at Patient Temp 50 mmHg (75-108) Arterial Blood HCO3 30 mmol/L (21-28) Arterial Blood Base Excess 6 mmol/L (-3-3) FiO2 50 Laboratory Tests Test 04/20/19 12:25 04/20/19 14:55 04/20/19 18:02 04/20/19 21:24 Glucose (Fingerstick) 216 mg/dL (70-99) 212 mg/dL (70-99) 195 mg/dL (70-99) Urine Collection Type U cath Urine Color Yellow Urine Clarity Cloudy Urine pH 5.0 Urine Specific [place] 1.020 Urine Protein 100 mg/dL (NEG-TRACE) Urine Glucose (UA) Negative mg/dL (NEG) Urine Ketones (Stick) Negative mg/dL (NEG) Urine Blood Negative (NEG) Urine Nitrite Negative (NEG) Urine Bilirubin Negative (NEG) Urine Urobilinogen Dipstick 0.2 mg/dL (0.2 mg/dL) Urine Leukocyte Esterase Large (NEG) Urine RBC 0 /HPF (0-2) Urine WBC Tntc /HPF (0-4) Urine Squamous Epithelial Cells Mod /LPF Urine Bacteria Mod /HPF (0-FEW) Test 04/21/19 00:04 04/21/19 04:30 04/21/19 06:01 04/21/19 08:00 Glucose (Fingerstick) 197 mg/dL (70-99) 138 mg/dL (70-99) Sodium Level 141 mmol/L (136-145) Potassium Level 4.6 mmol/L (3.5-5.1) Chloride Level 104 mmol/L (98-107) Carbon Dioxide Level 27 mmol/L (21-32) Anion Gap 10 (6-14) Blood Urea Nitrogen 65 mg/dL (7-20) Creatinine 2.4 mg/dL (0.6-1.0) Estimated GFR (Cockcroft-Gault) 20.9 Glucose Level 151 mg/dL (70-99) Calcium Level 8.4 mg/dL (8.5-10.1) O2 Saturation 85 % (92-99) Arterial Blood pH 7.49 (7.35-7.45) Arterial Blood pCO2 at Patient Temp 40 mmHg (35-46) Arterial Blood pO2 at Patient Temp 50 mmHg (75-108) Arterial Blood HCO3 30 mmol/L (21-28) Arterial Blood Base Excess 6 mmol/L (-3-3) FiO2 50 Test 04/21/19 09:13 Glucose (Fingerstick) 134 mg/dL (70-99) Medications Current Medications Albuterol Sulfate (Ventolin Neb Soln) 2.5 mg STK-MED ONCE .ROUTE ; Start 04/19/19 at 20:52; Stop 04/19/19 at 20:53; Status DC Ipratropium [place] (Atrovent) 0.5 mg 1X ONCE NEB Last administered on 04/19/19at 21:00; Start 04/19/19 at 21:00; Stop 04/19/19 at 21:01; Status DC Methylprednisolone Sodium Succinate (SOLU-Medrol 125MG VIAL) 250 mg 1X ONCE IV Last administered on 04/19/19at 21:08; Start 04/19/19 at 21:00; Stop 04/19/19 at 21:01; Status DC Albuterol Sulfate (Ventolin Neb Soln) 10 mg 1X ONCE CONT NEB Last administered on 04/19/19at 21:00; Start 04/19/19 at 21:00; Stop 04/19/19 at 21:01; Status DC Morphine Sulfate (Morphine Sulfate) 2 mg PRN Q15MIN PRN IV/SQ PAIN GREATER THAN 3/10 Last administered on 04/19/19at 21:14; Start 04/19/19 at 21:00; Stop 04/20/19 at 14:38; Status DC Furosemide (Lasix) 80 mg 1X ONCE IVP Last administered on 04/19/19at 21:20; Start 04/19/19 at 21:30; Stop 04/19/19 at 21:31; Status DC Propofol 50 ml @ As Directed STK-MED ONCE IV ; Start 04/19/19 at 21:42; Stop 04/19/19 at 21:43; Status DC Propofol 100 ml @ 0 mls/hr CONT PRN IV SEE PROTOCOL Last administered on 04/21/19at 07:57; Start 04/19/19 at 22:00 Etomidate (Amidate) 20 mg STK-MED ONCE IV ; Start 04/19/19 at 22:13; Stop 04/19/19 at 22:14; Status DC Vecuronium [place] (Norcuron Bolus) 10 mg STK-MED ONCE IV ; Start 04/19/19 at 22:13; Stop 04/19/19 at 22:14; Status DC Midazolam HCl (Versed) 5 mg 1X ONCE NS ; Start 04/19/19 at 22:30; Stop 04/19/19 at 22:31; Status DC Propofol 50 ml @ 1.551 mls/ hr 1X ONCE IV Last administered on 04/19/19at 21:47; Start 04/19/19 at 21:40; Stop 04/21/19 at 05:54; Status DC Vecuronium [place] (Norcuron Bolus) 20 mg 1X ONCE IV Last administered on 04/19/19at 21:39; Start 04/19/19 at 21:40; Stop 04/19/19 at 22:39; Status DC Etomidate (Amidate) 30 mg 1X ONCE IV Last administered on 04/19/19at 21:38; Start 04/19/19 at 21:40; Stop 04/19/19 at 22:39; Status DC Midazolam HCl (Versed) 5 mg 1X ONCE IV Last administered on 04/19/19at 22:23; Start 04/19/19 at 22:45; Stop 04/19/19 at 22:46; Status DC Albuterol/ Ipratropium (Duoneb) 3 ml RTQID NEB Last administered on 04/21/19at 08:15; Start 04/20/19 at 08:00 Albuterol Sulfate (Ventolin Neb Soln) 2.5 mg PRN Q4HRS PRN NEB SHORTNESS OF BREATH Last administered on 04/20/19at 03:20; Start 04/20/19 at 02:00 Heparin Sodium (Porcine) (Heparin Sodium) 5,000 unit Q8HRS SQ ; Start 04/20/19 at 14:00; Stop 04/20/19 at 14:00; Status DC Piperacillin Sod/ Tazobactam Sod (Zosyn Per Pharmacy) 1 each PRN DAILY PRN MC SEE COMMENTS; Start 04/20/19 at 10:00 Sodium Bicarbonate (Sodium Bicarb Adult 8.4% Syr) 50 meq 1X ONCE IV Last administered on 04/20/19at 11:11; Start 04/20/19 at 11:00; Stop 04/20/19 at 11:11; Status DC Piperacillin Sod/ Tazobactam Sod 2.25 gm/Sodium Chloride 50 ml @ 100 mls/hr Q6HRS IV Last administered on 04/21/19at 05:58; Start 04/20/19 at 12:00 Insulin Human Lispro (HumaLOG) 0-9 UNITS TIDWMEALS SQ ; Start 04/20/19 at 12:00; Stop 04/20/19 at 12:00; Status DC Dextrose (Dextrose 50%-Water Syringe) 12.5 gm PRN Q15MIN PRN IV SEE COMMENTS; Start 04/20/19 at 11:00 Alprazolam (Xanax) 0.5 mg PRN Q6HRS PRN PO ANXIETY / AGITATION; Start 04/20/19 at 11:00 Amlodipine Besylate (Norvasc) 5 mg DAILY PO Last administered on 04/21/19at 08:40; Start 04/20/19 at 12:00 Apixaban (Eliquis) 5 mg BID PO Last administered on 04/21/19at 08:37; Start 04/20/19 at 12:00 Aspirin (Children'S Aspirin) 81 mg DAILY PO Last administered on 04/21/19at 08:37; Start 04/20/19 at 12:00 Atorvastatin Calcium (Lipitor) 40 mg HS PO Last administered on 04/20/19at 21:16; Start 04/20/19 at 21:00 Cilostazol (Pletal) 50 mg BID PO Last administered on 04/21/19at 08:40; Start 04/20/19 at 12:00 Acetaminophen/ Hydrocodone Bitart (Lortab 10/325) 1 tab PRN Q6HRS PRN PO SEVERE PAIN 7-10; Start 04/20/19 at 11:00 Insulin Glargine (Lantus) 75 units BID SQ Last administered on 04/21/19at 09:18; Start 04/20/19 at 12:00 Insulin Human Lispro (HumaLOG) 30 units TIDWMEALS SQ ; Start 04/20/19 at 12:00; Stop 04/20/19 at 12:00; Status DC Metoprolol Succinate (Toprol Xl) 100 mg DAILY PO ; Start 04/20/19 at 12:00; Status Cancel Nitroglycerin (Nitrostat) 0.4 mg PRN Q5MIN PRN SL CP RATING > 1/10; Start 04/20/19 at 11:00 Nystatin (Nystop) 1 sally BID TP Last administered on 04/20/19at 21:17; Start 04/20/19 at 12:00 Duloxetine HCl (Cymbalta) 60 mg BID PO Last administered on 04/20/19at 21:16; Start 04/20/19 at 12:00; Stop 04/21/19 at 08:10; Status DC Pantoprazole Sodium (Protonix) 40 mg DAILYAC PO ; Start 04/20/19 at 12:00; Stop 04/20/19 at 12:00; Status DC Fluticasone Propionate (Flonase) 2 spray PRN DAILY PRN NS ALLERGIES; Start 04/20/19 at 12:00 Hydralazine HCl (Apresoline) 50 mg TID PO Last administered on 04/21/19at 08:43; Start 04/20/19 at 14:00 Levothyroxine Sodium (Synthroid) 50 mcg DAILY06 PO Last administered on 04/21/19at 05:58; Start 04/20/19 at 12:00 Pregabalin (Lyrica) 150 mg BID PO Last administered on 04/21/19at 08:39; Start 04/20/19 at 12:00 Tizanidine HCl (Zanaflex) 4 mg PRN Q8HRS PRN PO MUSCLE SPASMS; Start 04/20/19 at 11:00 Famotidine (Pepcid Vial) 20 mg DAILY IVP ; Start 04/21/19 at 09:00; Status Cancel Insulin Human Lispro (HumaLOG) 0-9 UNITS Q6HRS SQ Last administered on 04/21/19at 00:05; Start 04/20/19 at 12:00 Insulin Human Lispro (HumaLOG) 30 units Q6HRS SQ Last administered on 04/21/19at 00:06; Start 04/20/19 at 12:00 Pantoprazole Sodium (PROTONIX VIAL for IV PUSH) 40 mg DAILYAC IVP Last administered on 04/21/19at 07:47; Start 04/21/19 at 07:30 Metoprolol Tartrate (Lopressor) 50 mg BID PO Last administered on 04/21/19at 08:38; Start 04/20/19 at 12:30 Acetaminophen (Tylenol) 650 mg PRN Q6HRS PRN PEG MILD PAIN / TEMP; Start 04/20/19 at 16:00 Venlafaxine HCl (Effexor) 50 mg TID NG Last administered on 04/21/19at 08:36; Start 04/21/19 at 09:00 Active Scripts Active Humalog (Insulin Lispro) 100 Unit/1 Ml Insuln.pen 30 Units SQ TIDWMEALS 30 Days Toprol Xl (Metoprolol Succinate) 50 Mg Tab.er.24h 100 Mg PO DAILY Hydralazine Hcl 25 Mg Tablet 50 Mg PO TID Cilostazol 50 Mg Tablet 50 Mg PO BID Xanax (Alprazolam) 0.5 Mg Tablet 0.5 Mg PO PRN Q6HRS PRN Ondansetron Odt (Ondansetron) 4 Mg Tab.rapdis 1 Tab PO PRN Q6-8HRS Nystop (Nystatin) 60 Gm Powder 1 Sally TP BID 30 Days Colace (Docusate Sodium) 100 Mg Capsule 100 Mg PO BID Senna-Time S Tablet (Sennosides/Docusate Sodium) 1 Each Tablet 1 Tab PO BID Nitrostat (Nitroglycerin) 0.4 Mg Tab.subl 0.4 Mg SL PRN Q5MIN PRN 30 Days Reported Lantus Solostar (Insulin Glargine,Hum.rec.anlog) 100 Unit/1 Ml Insuln.pen 75 Unit SQ BID Tizanidine Hcl 4 Mg Tablet 1 Tab PO TID Duloxetine Hcl 60 Mg Capsule.dr 60 Mg PO BID Trulicity (Dulaglutide) 0.75 Mg/0.5 Ml Pen.injctr 0.75 Mg SUBCUT QFR Amlodipine Besylate 5 Mg Tablet 5 Mg PO DAILY Ventolin Hfa Inhaler (Albuterol Sulfate) 18 Gm Hfa.aer.ad 2 Puff INH PRN Q4HRS PRN Duoneb 0.5-3(2.5) Mg/3 Ml (Albuterol/Ipratropium) 3 Ml Ampul.neb 3 Ml NEB PRN QID PRN Flonase Allergy Relief (Fluticasone Propionate) 9.9 Ml [place].susp 2 Sprays NS PRN PRN Clonidine Hcl 0.1 Mg Tablet 1 Tab PO PRN PRN When SBP >150 Eliquis (Apixaban) 5 Mg Tablet 5 Mg PO BID Lyrica (Pregabalin) 150 Mg Capsule 1 Cap PO BID Atorvastatin Calcium 20 Mg Tablet 2 Tab PO HS Nexium Capsule (Esomeprazole Magnesium) 40 Mg Capsule.dr 1 Cap PO BID Aspirin 81 Mg Tab.chew 1 Tab PO DAILY Levothyroxine Sodium 50 Mcg Tablet 1 Tab PO DAILY Vitals/I & O Vital Sign - Last 24 Hours 04/20/19 04/20/19 04/20/19 04/20/19 10:00 11:00 12:00 12:00 Pulse 91 92 91 Resp 16 16 20 B/P (MAP) 141/59 (86) 155/84 (107) 148/64 (92) Pulse Ox 99 99 99 O2 Delivery Ventilator Ventilator Mechanical Ventilator Ventilator 04/20/19 04/20/19 04/20/19 04/20/19 12:24 12:29 12:34 12:44 Pulse 97 98 B/P (MAP) 148/64 148/64 Pulse Ox 96 94 O2 Delivery Ventilator Ventilator 04/20/19 04/20/19 04/20/19 04/20/19 13:00 14:00 14:51 15:00 Pulse 91 87 89 89 Resp 20 20 18 B/P (MAP) 160/70 (100) 127/53 (77) 127/53 141/60 (87) Pulse Ox 99 94 96 O2 Delivery Ventilator Ventilator Ventilator 04/20/19 04/20/19 04/20/19 04/20/19 16:00 16:00 16:24 17:00 Temp 99.8 99.8 Pulse 91 88 Resp 18 18 B/P (MAP) 129/56 (80) 118/49 (72) Pulse Ox 96 94 98 O2 Delivery Mechanical Ventilator Ventilator Ventilator Ventilator 04/20/19 04/20/19 04/20/19 04/20/19 18:00 19:00 19:29 20:00 Pulse 89 89 Resp 20 19 B/P (MAP) 123/53 (76) 150/65 (93) Pulse Ox 95 96 96 O2 Delivery Ventilator Ventilator Mechanical Ventilator 04/20/19 04/20/19 04/20/19 04/20/19 20:00 21:00 21:17 21:17 Temp 98.9 98.9 Pulse 88 87 88 89 Resp 20 20 B/P (MAP) 143/61 (88) 137/63 (87) 137/63 137/63 Pulse Ox 96 97 O2 Delivery Ventilator Ventilator 04/20/19 04/20/19 04/20/19 04/20/19 22:00 22:15 23:00 23:48 Pulse 85 83 Resp 20 20 B/P (MAP) 140/60 (86) 122/56 (78) Pulse Ox 97 96 97 98 O2 Delivery Ventilator Ventilator Ventilator Ventilator 04/21/19 04/21/19 04/21/19 04/21/19 00:00 00:00 00:20 01:00 Temp 99.1 99.1 Pulse 85 80 Resp 20 20 B/P (MAP) 128/57 (80) 107/46 (66) Pulse Ox 97 98 98 O2 Delivery Mechanical Ventilator Ventilator Ventilator Ventilator 04/21/19 04/21/19 04/21/19 04/21/19 02:00 02:23 03:00 04:00 Pulse 78 86 Resp 20 20 B/P (MAP) 93/42 (59) 131/58 (82) Pulse Ox 98 98 97 O2 Delivery Ventilator Ventilator Ventilator Mechanical Ventilator 04/21/19 04/21/19 04/21/19 04/21/19 04:00 04:15 05:00 06:00 Temp 99.1 99.1 Pulse 83 80 82 Resp 20 20 20 B/P (MAP) 128/58 (81) 112/51 (71) 127/59 (81) Pulse Ox 97 98 97 98 O2 Delivery Ventilator Ventilator Ventilator Ventilator 04/21/19 04/21/19 04/21/19 04/21/19 07:00 08:00 08:00 08:15 Temp 99.5 99.5 99.5 99.5 Pulse 88 78 Resp 19 19 B/P (MAP) 127/59 (81) 137/65 (89) Pulse Ox 96 98 97 O2 Delivery Ventilator Mechanical Ventilator Ventilator Ventilator 04/21/19 04/21/19 04/21/19 08:38 08:40 08:43 Pulse 81 81 81 B/P (MAP) 137/65 137/65 137/65 Intake and Output 04/20/19 04/20/19 04/21/19 14:59 22:59 06:59 Intake Total 50 ml 712.7 ml 1065.3 ml Output Total 975 ml 520 ml 720 ml Balance -925 ml 192.7 ml 345.3 ml JUSTIN TAVAREZ MD Apr 21, 2019 09:51
--- NOTE | 2019-04-21 11:33 | PDOC ---
SUBJECTIVE ROS Stable, Sedated on MV , No acute events overnight OBJECTIVE Vital Signs Vital Signs Date Time Temp Pulse Resp B/P (MAP) Pulse Ox O2 Delivery O2 Flow Rate FiO2 04/21/19 11:00 74 20 108/55 (72) 99 Ventilator 04/21/19 08:00 99.5 99.5 04/20/19 09:00 3.0 I & 0 Intake and Output 04/21/19 06:59 Intake Total 1828.0 ml Output Total 2215 ml Balance -387.0 ml Intake Oral 0 ml IV Total 1130.0 ml Tube Feeding 498 ml Other 200 ml Output Urine Total 2215 ml Gastric Drainage Total 0 ml # Bowel Movements 2 PHYSICAL EXAM Physical Exam GENERAL: intubated and sedated. HEENT: Sclerae nonicteric. NECK: Supple. LUNGS: Diminished breath sounds. CARDIOVASCULAR: Regular rate and rhythm. ABDOMEN: Soft, nontender EXTREMITIES: Bilateral pitting edema, Improved NEURO Sedated [place] + DIAGNOSIS/ASSESSMENT Assessment & Plan JENNIFER - ATN renal function improving Normal US 04/02/19 E-Lytes stable , Supportive care, Monitor Recurrent UTI- UA shows WBC-tntc Cx ordered by Dr. Roblero CKD stage 3- Follows with Dr. Santana,Last office visit 01/2018 Cr ranging from 1.0- 1.5 since 2017 Labs at [facility] Cr 1.4-2.1 Anemia- Hgb stable Acute hypercapnic respiratory failure: Intubated and On MV CHF with diastolic dysfunction and CAD - preserved ejection fraction on a recent echocardiogram. Paroxysmal atrial fibrillation: Presently in sinus rhythm. On Eliquis and her beta-ryanne. Diabetes mellitus type 2, insulin dependent: Peripheral artery disease: diagnosed on her last admission,medical management was advised Chr lymphedema COMMENT/RELEVANT DATA Meds Current Medications Medications (Trade) Dose Ordered Sig/Jesus Manuel Start Time Stop Time Status Last Admin Dose Admin Acetaminophen (Tylenol) 650 mg PRN Q6HRS PRN 04/20/19 16:00 Acetaminophen/ Hydrocodone Bitart (Lortab 10/325) 1 tab PRN Q6HRS PRN 04/20/19 11:00 Albuterol Sulfate (Ventolin Neb Soln) 2.5 mg PRN Q4HRS PRN 04/20/19 02:00 04/20/19 03:20 2.5 MG Albuterol/ Ipratropium (Duoneb) 3 ml RTQID 04/20/19 08:00 04/21/19 08:15 3 ML Alprazolam (Xanax) 0.5 mg PRN Q6HRS PRN 04/20/19 11:00 Amlodipine Besylate (Norvasc) 5 mg DAILY 04/20/19 12:00 04/21/19 08:40 5 MG Apixaban (Eliquis) 5 mg BID 04/20/19 12:00 04/21/19 08:37 5 MG Aspirin (Children'S Aspirin) 81 mg DAILY 04/20/19 12:00 04/21/19 08:37 81 MG Atorvastatin Calcium (Lipitor) 40 mg HS 04/20/19 21:00 04/20/19 21:16 40 MG Cilostazol (Pletal) 50 mg BID 04/20/19 12:00 04/21/19 08:40 50 MG Dextrose (Dextrose 50%-Water Syringe) 12.5 gm PRN Q15MIN PRN 04/20/19 11:00 Duloxetine HCl (Cymbalta) 60 mg BID 04/20/19 12:00 04/21/19 08:10 DC 04/20/19 21:16 60 MG Etomidate (Amidate) 30 mg 1X ONCE 04/19/19 21:40 04/19/19 22:39 DC 04/19/19 21:38 30 MG Famotidine (Pepcid Vial) 20 mg DAILY 04/21/19 09:00 Cancel Fluticasone Propionate (Flonase) 2 spray PRN DAILY PRN 04/20/19 12:00 Furosemide (Lasix) 80 mg 1X ONCE 04/19/19 21:30 04/19/19 21:31 DC 04/19/19 21:20 80 MG Heparin Sodium (Porcine) (Heparin Sodium) 5,000 unit Q8HRS 04/20/19 14:00 04/20/19 14:00 DC Hydralazine HCl (Apresoline) 50 mg TID 04/20/19 14:00 04/21/19 08:43 50 MG Insulin Glargine (Lantus) 75 units BID 04/20/19 12:00 04/21/19 09:18 75 UNITS Insulin Human Lispro (HumaLOG) 30 units Q6HRS 04/20/19 12:00 04/21/19 00:06 30 UNITS Ipratropium [place] (Atrovent) 0.5 mg 1X ONCE 04/19/19 21:00 04/19/19 21:01 DC 04/19/19 21:00 0.5 MG Levothyroxine Sodium (Synthroid) 50 mcg DAILY06 04/20/19 12:00 04/21/19 05:58 50 MCG Methylprednisolone Sodium Succinate (SOLU-Medrol 125MG VIAL) 250 mg 1X ONCE 04/19/19 21:00 04/19/19 21:01 DC 04/19/19 21:08 250 MG Metoprolol Succinate (Toprol Xl) 100 mg DAILY 04/20/19 12:00 Cancel Metoprolol Tartrate (Lopressor) 50 mg BID 04/20/19 12:30 04/21/19 08:38 50 MG Midazolam HCl (Versed) 5 mg 1X ONCE 04/19/19 22:45 04/19/19 22:46 DC 04/19/19 22:23 5 MG Morphine Sulfate (Morphine Sulfate) 2 mg PRN Q15MIN PRN 04/19/19 21:00 04/20/19 14:38 DC 04/19/19 21:14 2 MG Nitroglycerin (Nitrostat) 0.4 mg PRN Q5MIN PRN 04/20/19 11:00 Nystatin (Nystop) 1 eric BID 04/20/19 12:00 04/21/19 09:00 1 ERIC Pantoprazole Sodium (PROTONIX VIAL for IV PUSH) 40 mg DAILYAC 04/21/19 07:30 04/21/19 07:47 40 MG Pantoprazole Sodium (Protonix) 40 mg DAILYAC 04/20/19 12:00 04/20/19 12:00 DC Piperacillin Sod/ Tazobactam Sod (Zosyn Per Pharmacy) 1 each PRN DAILY PRN 04/20/19 10:00 Piperacillin Sod/ Tazobactam Sod 2.25 gm/Sodium Chloride 50 ml @ 100 mls/hr Q6HRS 04/20/19 12:00 04/21/19 05:58 100 MLS/HR Pregabalin (Lyrica) 150 mg BID 04/20/19 12:00 04/21/19 08:39 150 MG Propofol 50 ml @ 1.551 mls/ hr 1X ONCE 04/19/19 21:40 04/21/19 05:54 DC 04/19/19 21:47 3.103 MLS/HR Sodium Bicarbonate (Sodium Bicarb Adult 8.4% Syr) 50 meq 1X ONCE 04/20/19 11:00 04/20/19 11:11 DC 04/20/19 11:11 50 MEQ Tizanidine HCl (Zanaflex) 4 mg PRN Q8HRS PRN 04/20/19 11:00 Vecuronium [place] (Norcuron Bolus) 20 mg 1X ONCE 04/19/19 21:40 04/19/19 22:39 DC 04/19/19 21:39 20 MG Venlafaxine HCl (Effexor) 50 mg TID 04/21/19 09:00 04/21/19 08:36 50 MG Lab Laboratory Tests Test 04/20/19 12:25 04/20/19 14:55 04/20/19 18:02 04/20/19 21:24 Glucose (Fingerstick) 216 mg/dL (70-99) 212 mg/dL (70-99) 195 mg/dL (70-99) Urine Collection Type U cath Urine Color Yellow Urine Clarity Cloudy Urine pH 5.0 Urine Specific [place] 1.020 Urine Protein 100 mg/dL (NEG-TRACE) Urine Glucose (UA) Negative mg/dL (NEG) Urine Ketones (Stick) Negative mg/dL (NEG) Urine Blood Negative (NEG) Urine Nitrite Negative (NEG) Urine Bilirubin Negative (NEG) Urine Urobilinogen Dipstick 0.2 mg/dL (0.2 mg/dL) Urine Leukocyte Esterase Large (NEG) Urine RBC 0 /HPF (0-2) Urine WBC Tntc /HPF (0-4) Urine Squamous Epithelial Cells Mod /LPF Urine Bacteria Mod /HPF (0-FEW) Test 04/21/19 00:04 04/21/19 04:30 04/21/19 06:01 04/21/19 08:00 Glucose (Fingerstick) 197 mg/dL (70-99) 138 mg/dL (70-99) Sodium Level 141 mmol/L (136-145) Potassium Level 4.6 mmol/L (3.5-5.1) Chloride Level 104 mmol/L (98-107) Carbon Dioxide Level 27 mmol/L (21-32) Anion Gap 10 (6-14) Blood Urea Nitrogen 65 mg/dL (7-20) Creatinine 2.4 mg/dL (0.6-1.0) Estimated GFR (Cockcroft-Gault) 20.9 Glucose Level 151 mg/dL (70-99) Calcium Level 8.4 mg/dL (8.5-10.1) O2 Saturation 85 % (92-99) Arterial Blood pH 7.49 (7.35-7.45) Arterial Blood pCO2 at Patient Temp 40 mmHg (35-46) Arterial Blood pO2 at Patient Temp 50 mmHg (75-108) Arterial Blood HCO3 30 mmol/L (21-28) Arterial Blood Base Excess 6 mmol/L (-3-3) FiO2 50 Test 04/21/19 09:13 Glucose (Fingerstick) 134 mg/dL (70-99) Results All relevant outside records, renal labs, imaging studies, telemetry/EKG's were reviewed. Other . Increased density left lung base from increased pleural effusion or increased atelectasis or infiltrate. 3. Mild increased atelectasis or infiltrate right lung base. EVERTON HE MD Apr 21, 2019 11:33
[2019-04-21] MEDS ORDERED: FUROSEMIDE 20 MG/2 ML VIAL. IVP ONE (11:45)
--- NOTE | 2019-04-21 12:25 | PDOC ---
Infectious Disease Note Vital Sign Vital Signs Vital Signs Date Time Temp Pulse Resp B/P (MAP) Pulse Ox O2 Delivery O2 Flow Rate FiO2 04/21/19 11:00 74 20 108/55 (72) 99 Ventilator 04/21/19 08:00 99.5 99.5 04/20/19 09:00 3.0 Labs Lab Laboratory Tests Test 04/20/19 14:55 04/20/19 18:02 04/20/19 21:24 04/21/19 00:04 Urine Collection Type U cath Urine Color Yellow Urine Clarity Cloudy Urine pH 5.0 Urine Specific [place] 1.020 Urine Protein 100 mg/dL (NEG-TRACE) Urine Glucose (UA) Negative mg/dL (NEG) Urine Ketones (Stick) Negative mg/dL (NEG) Urine Blood Negative (NEG) Urine Nitrite Negative (NEG) Urine Bilirubin Negative (NEG) Urine Urobilinogen Dipstick 0.2 mg/dL (0.2 mg/dL) Urine Leukocyte Esterase Large (NEG) Urine RBC 0 /HPF (0-2) Urine WBC Tntc /HPF (0-4) Urine Squamous Epithelial Cells Mod /LPF Urine Bacteria Mod /HPF (0-FEW) Glucose (Fingerstick) 212 mg/dL (70-99) 195 mg/dL (70-99) 197 mg/dL (70-99) Test 04/21/19 04:30 04/21/19 06:01 04/21/19 08:00 04/21/19 09:13 Sodium Level 141 mmol/L (136-145) Potassium Level 4.6 mmol/L (3.5-5.1) Chloride Level 104 mmol/L (98-107) Carbon Dioxide Level 27 mmol/L (21-32) Anion Gap 10 (6-14) Blood Urea Nitrogen 65 mg/dL (7-20) Creatinine 2.4 mg/dL (0.6-1.0) Estimated GFR (Cockcroft-Gault) 20.9 Glucose Level 151 mg/dL (70-99) Calcium Level 8.4 mg/dL (8.5-10.1) Glucose (Fingerstick) 138 mg/dL (70-99) 134 mg/dL (70-99) O2 Saturation 85 % (92-99) Arterial Blood pH 7.49 (7.35-7.45) Arterial Blood pCO2 at Patient Temp 40 mmHg (35-46) Arterial Blood pO2 at Patient Temp 50 mmHg (75-108) Arterial Blood HCO3 30 mmol/L (21-28) Arterial Blood Base Excess 6 mmol/L (-3-3) FiO2 50 Test 04/21/19 12:10 Glucose (Fingerstick) 146 mg/dL (70-99) Objective Assessment pt seen, consult dictated Plan Plan of Care - MIRA HARRIS MD Apr 21, 2019 12:25
[2019-04-21 12:33] LABS: BASE EXCESS ABG 3 mmol/L (-3-3); HCO3 ABG 26 mmol/L (21-28); PCO2 ABG 32 mmHg (35-46); PO2 ABG 89 mmHg (75-108); SAT O2 ABG 96 % (92-99)
[2019-04-21 12:34] LABS: FIO2 ABG 50
[2019-04-21] MEDS: FLUCONAZOLE 200MG/100ML PREMIX 100 ML IV SCH (13:08)
--- NOTE | 2019-04-21 14:04 | PDOC ---
PULMONARY PROGRESS NOTES Subjective remains intubated/ sedated Vitals Vital Signs Date Time Temp Pulse Resp B/P (MAP) Pulse Ox O2 Delivery O2 Flow Rate FiO2 04/21/19 12:16 98 Ventilator 04/21/19 12:00 98.8 76 20 140/62 (88) 98.8 04/20/19 09:00 3.0 Lungs: Other (decrease bs) Cardiovascular: S1, S2 Abdomen: Soft, Non-tender, Other Extremities: Other (1+edema) Labs Laboratory Tests Test 04/19/19 20:55 04/19/19 22:00 04/20/19 01:05 04/20/19 01:09 White Blood Count 11.8 x10^3/uL (4.0-11.0) Red Blood Count 3.22 x10^6/uL (3.50-5.40) Hemoglobin 8.6 g/dL (12.0-15.5) Hematocrit 27.5 % (36.0-47.0) Mean Corpuscular Volume 85 fL (79-100) Mean Corpuscular Hemoglobin 27 pg (25-35) Mean Corpuscular Hemoglobin Concent 31 g/dL (31-37) Red Cell Distribution Width 17.1 % (11.5-14.5) Platelet Count 295 x10^3/uL (140-400) Neutrophils (%) (Auto) 71 % (31-73) Lymphocytes (%) (Auto) 17 % (24-48) Monocytes (%) (Auto) 9 % (0-9) Eosinophils (%) (Auto) 2 % (0-3) Basophils (%) (Auto) 1 % (0-3) Neutrophils # (Auto) 8.3 x10^3/uL (1.8-7.7) Lymphocytes # (Auto) 2.1 x10^3/uL (1.0-4.8) Monocytes # (Auto) 1.0 x10^3/uL (0.0-1.1) Eosinophils # (Auto) 0.3 x10^3/uL (0.0-0.7) Basophils # (Auto) 0.1 x10^3/uL (0.0-0.2) Sodium Level 138 mmol/L (136-145) Potassium Level 5.2 mmol/L (3.5-5.1) Chloride Level 102 mmol/L (98-107) Carbon Dioxide Level 27 mmol/L (21-32) Anion Gap 9 (6-14) Blood Urea Nitrogen 58 mg/dL (7-20) Creatinine 3.2 mg/dL (0.6-1.0) Estimated GFR (Cockcroft-Gault) 15.0 BUN/Creatinine Ratio 18 (6-20) Glucose Level 127 mg/dL (70-99) Calcium Level 8.5 mg/dL (8.5-10.1) Magnesium Level 2.3 mg/dL (1.8-2.4) Total Bilirubin 0.2 mg/dL (0.2-1.0) Aspartate Amino Transf (AST/SGOT) 35 U/L (15-37) Alanine Aminotransferase (ALT/SGPT) 35 U/L (14-59) Alkaline Phosphatase 129 U/L (46-116) Troponin I Quantitative < 0.017 ng/mL (0.000-0.055) RO-Vns-M-Type Natriuretic Peptide 2699 pg/mL (0-124) Total Protein 7.3 g/dL (6.4-8.2) Albumin 3.0 g/dL (3.4-5.0) Albumin/Globulin Ratio 0.7 (1.0-1.7) O2 Saturation 99 % (92-99) 93 % (92-99) Arterial Blood pH 7.22 (7.35-7.45) 7.24 (7.35-7.45) Arterial Blood pCO2 at Patient Temp 63 mmHg (35-46) 57 mmHg (35-46) Arterial Blood pO2 at Patient Temp 394 mmHg (75-108) 79 mmHg (75-108) Arterial Blood HCO3 25 mmol/L (21-28) 24 mmol/L (21-28) Arterial Blood Base Excess -3 mmol/L (-3-3) -4 mmol/L (-3-3) FiO2 60 Nasal Screen MRSA (PCR) Negative (Negative) Test 04/20/19 04:25 04/20/19 07:27 04/20/19 08:15 04/20/19 12:25 White Blood Count 9.6 x10^3/uL (4.0-11.0) Red Blood Count 3.15 x10^6/uL (3.50-5.40) Hemoglobin 8.5 g/dL (12.0-15.5) Hematocrit 26.5 % (36.0-47.0) Mean Corpuscular Volume 84 fL (79-100) Mean Corpuscular Hemoglobin 27 pg (25-35) Mean Corpuscular Hemoglobin Concent 32 g/dL (31-37) Red Cell Distribution Width 17.0 % (11.5-14.5) Platelet Count 280 x10^3/uL (140-400) Neutrophils (%) (Auto) 93 % (31-73) Lymphocytes (%) (Auto) 5 % (24-48) Monocytes (%) (Auto) 2 % (0-9) Eosinophils (%) (Auto) 0 % (0-3) Basophils (%) (Auto) 0 % (0-3) Neutrophils # (Auto) 8.9 x10^3/uL (1.8-7.7) Lymphocytes # (Auto) 0.5 x10^3/uL (1.0-4.8) Monocytes # (Auto) 0.2 x10^3/uL (0.0-1.1) Eosinophils # (Auto) 0.0 x10^3/uL (0.0-0.7) Basophils # (Auto) 0.0 x10^3/uL (0.0-0.2) Segmented Neutrophils % 89 % (35-66) Band Neutrophils % 4 % (0-9) Lymphocytes % 6 % (24-48) Basophils % 1 % (0-3) Platelet Estimate Adequate (ADEQUATE) Basophilic Stippling Present Anisocytosis Slight Sodium Level 138 mmol/L (136-145) Potassium Level 4.9 mmol/L (3.5-5.1) Chloride Level 101 mmol/L (98-107) Carbon Dioxide Level 24 mmol/L (21-32) Anion Gap 13 (6-14) Blood Urea Nitrogen 60 mg/dL (7-20) Creatinine 3.1 mg/dL (0.6-1.0) Estimated GFR (Cockcroft-Gault) 15.5 BUN/Creatinine Ratio 19 (6-20) Glucose Level 219 mg/dL (70-99) Calcium Level 8.4 mg/dL (8.5-10.1) Total Bilirubin 0.3 mg/dL (0.2-1.0) Aspartate Amino Transf (AST/SGOT) 33 U/L (15-37) Alanine Aminotransferase (ALT/SGPT) 34 U/L (14-59) Alkaline Phosphatase 141 U/L (46-116) Total Protein 7.0 g/dL (6.4-8.2) Albumin 2.6 g/dL (3.4-5.0) Albumin/Globulin Ratio 0.6 (1.0-1.7) Procalcitonin 0.24 ng/mL (0.00-0.10) Glucose (Fingerstick) 201 mg/dL (70-99) 216 mg/dL (70-99) O2 Saturation 97 % (92-99) Arterial Blood pH 7.43 (7.35-7.45) Arterial Blood pCO2 at Patient Temp 36 mmHg (35-46) Arterial Blood pO2 at Patient Temp 105 mmHg (75-108) Arterial Blood HCO3 23 mmol/L (21-28) Arterial Blood Base Excess -1 mmol/L (-3-3) FiO2 60 Test 04/20/19 14:55 04/20/19 18:02 04/20/19 21:24 04/21/19 00:04 Urine Collection Type U cath Urine Color Yellow Urine Clarity Cloudy Urine pH 5.0 Urine Specific [place] 1.020 Urine Protein 100 mg/dL (NEG-TRACE) Urine Glucose (UA) Negative mg/dL (NEG) Urine Ketones (Stick) Negative mg/dL (NEG) Urine Blood Negative (NEG) Urine Nitrite Negative (NEG) Urine Bilirubin Negative (NEG) Urine Urobilinogen Dipstick 0.2 mg/dL (0.2 mg/dL) Urine Leukocyte Esterase Large (NEG) Urine RBC 0 /HPF (0-2) Urine WBC Tntc /HPF (0-4) Urine Squamous Epithelial Cells Mod /LPF Urine Bacteria Mod /HPF (0-FEW) Glucose (Fingerstick) 212 mg/dL (70-99) 195 mg/dL (70-99) 197 mg/dL (70-99) Test 04/21/19 04:30 04/21/19 06:01 04/21/19 08:00 04/21/19 09:13 Sodium Level 141 mmol/L (136-145) Potassium Level 4.6 mmol/L (3.5-5.1) Chloride Level 104 mmol/L (98-107) Carbon Dioxide Level 27 mmol/L (21-32) Anion Gap 10 (6-14) Blood Urea Nitrogen 65 mg/dL (7-20) Creatinine 2.4 mg/dL (0.6-1.0) Estimated GFR (Cockcroft-Gault) 20.9 Glucose Level 151 mg/dL (70-99) Calcium Level 8.4 mg/dL (8.5-10.1) Procalcitonin 0.24 ng/mL (0.00-0.10) Glucose (Fingerstick) 138 mg/dL (70-99) 134 mg/dL (70-99) O2 Saturation 85 % (92-99) Arterial Blood pH 7.49 (7.35-7.45) Arterial Blood pCO2 at Patient Temp 40 mmHg (35-46) Arterial Blood pO2 at Patient Temp 50 mmHg (75-108) Arterial Blood HCO3 30 mmol/L (21-28) Arterial Blood Base Excess 6 mmol/L (-3-3) FiO2 50 Test 04/21/19 12:10 04/21/19 12:15 Glucose (Fingerstick) 146 mg/dL (70-99) O2 Saturation 96 % (92-99) Arterial Blood pH 7.52 (7.35-7.45) Arterial Blood pCO2 at Patient Temp 32 mmHg (35-46) Arterial Blood pO2 at Patient Temp 89 mmHg (75-108) Arterial Blood HCO3 26 mmol/L (21-28) Arterial Blood Base Excess 3 mmol/L (-3-3) FiO2 50 Laboratory Tests Test 04/20/19 14:55 04/20/19 18:02 04/20/19 21:24 04/21/19 00:04 Urine Collection Type U cath Urine Color Yellow Urine Clarity Cloudy Urine pH 5.0 Urine Specific [place] 1.020 Urine Protein 100 mg/dL (NEG-TRACE) Urine Glucose (UA) Negative mg/dL (NEG) Urine Ketones (Stick) Negative mg/dL (NEG) Urine Blood Negative (NEG) Urine Nitrite Negative (NEG) Urine Bilirubin Negative (NEG) Urine Urobilinogen Dipstick 0.2 mg/dL (0.2 mg/dL) Urine Leukocyte Esterase Large (NEG) Urine RBC 0 /HPF (0-2) Urine WBC Tntc /HPF (0-4) Urine Squamous Epithelial Cells Mod /LPF Urine Bacteria Mod /HPF (0-FEW) Glucose (Fingerstick) 212 mg/dL (70-99) 195 mg/dL (70-99) 197 mg/dL (70-99) Test 04/21/19 04:30 04/21/19 06:01 04/21/19 08:00 04/21/19 09:13 Sodium Level 141 mmol/L (136-145) Potassium Level 4.6 mmol/L (3.5-5.1) Chloride Level 104 mmol/L (98-107) Carbon Dioxide Level 27 mmol/L (21-32) Anion Gap 10 (6-14) Blood Urea Nitrogen 65 mg/dL (7-20) Creatinine 2.4 mg/dL (0.6-1.0) Estimated GFR (Cockcroft-Gault) 20.9 Glucose Level 151 mg/dL (70-99) Calcium Level 8.4 mg/dL (8.5-10.1) Procalcitonin 0.24 ng/mL (0.00-0.10) Glucose (Fingerstick) 138 mg/dL (70-99) 134 mg/dL (70-99) O2 Saturation 85 % (92-99) Arterial Blood pH 7.49 (7.35-7.45) Arterial Blood pCO2 at Patient Temp 40 mmHg (35-46) Arterial Blood pO2 at Patient Temp 50 mmHg (75-108) Arterial Blood HCO3 30 mmol/L (21-28) Arterial Blood Base Excess 6 mmol/L (-3-3) FiO2 50 Test 04/21/19 12:10 04/21/19 12:15 Glucose (Fingerstick) 146 mg/dL (70-99) O2 Saturation 96 % (92-99) Arterial Blood pH 7.52 (7.35-7.45) Arterial Blood pCO2 at Patient Temp 32 mmHg (35-46) Arterial Blood pO2 at Patient Temp 89 mmHg (75-108) Arterial Blood HCO3 26 mmol/L (21-28) Arterial Blood Base Excess 3 mmol/L (-3-3) FiO2 50 Medications Active Scripts Medications Dose Route/Sig Max Daily Dose Days Date Category Dose Instructions Humalog (Insulin Lispro) 100 Unit/1 Ml Insuln.pen 30 Units SQ TIDWMEALS 30 04/15/19 Rx Toprol Xl (Metoprolol Succinate) 50 Mg Tab.er.24h 100 Mg PO DAILY 04/15/19 Rx Hydralazine Hcl 25 Mg Tablet 50 Mg PO TID 04/15/19 Rx Cilostazol 50 Mg Tablet 50 Mg PO BID 04/15/19 Rx Xanax (Alprazolam) 0.5 Mg Tablet 0.5 Mg PO PRN Q6HRS PRN 04/15/19 Rx Lantus Solostar (Insulin Glargine,Hum.rec.anlog) 100 Unit/1 Ml Insuln.pen 75 Unit SQ BID 12/28/18 Reported Ondansetron Odt (Ondansetron) 4 Mg Tab.rapdis 1 Tab PO PRN Q6-8HRS 10/23/18 Rx Tizanidine Hcl 4 Mg Tablet 1 Tab PO TID 10/13/18 Reported Nystop (Nystatin) 60 Gm Powder 1 Sally TP BID 30 09/02/18 Rx Duloxetine Hcl 60 Mg Capsule.dr 60 Mg PO BID 10/26/17 Reported Trulicity (Dulaglutide) 0.75 Mg/0.5 Ml Pen.injctr 0.75 Mg SUBCUT QFR 10/26/17 Reported Amlodipine Besylate 5 Mg Tablet 5 Mg PO DAILY 10/26/17 Reported Colace (Docusate Sodium) 100 Mg Capsule 100 Mg PO BID 03/24/17 Rx Senna-Time S Tablet (Sennosides/Docusate Sodium) 1 Each Tablet 1 Tab PO BID 03/24/17 Rx Ventolin Hfa Inhaler (Albuterol Sulfate) 18 Gm Hfa.aer.ad 2 Puff INH PRN Q4HRS PRN 03/19/17 Reported Duoneb 0.5-3(2.5) Mg/3 Ml (Albuterol/Ipratropium) 3 Ml Ampul.neb 3 Ml NEB PRN QID PRN 03/19/17 Reported Flonase Allergy Relief (Fluticasone Propionate) 9.9 Ml [place].susp 2 Sprays NS PRN PRN 03/19/17 Reported Clonidine Hcl 0.1 Mg Tablet 1 Tab PO PRN PRN 03/19/17 Reported When SBP >150 Eliquis (Apixaban) 5 Mg Tablet 5 Mg PO BID 03/19/17 Reported Lyrica (Pregabalin) 150 Mg Capsule 1 Cap PO BID 10/07/16 Reported Atorvastatin Calcium 20 Mg Tablet 2 Tab PO HS 10/06/16 Reported Nexium Capsule (Esomeprazole Magnesium) 40 Mg Capsule.dr 1 Cap PO BID 10/06/16 Reported Aspirin 81 Mg Tab.chew 1 Tab PO DAILY 10/06/16 Reported Nitrostat (Nitroglycerin) 0.4 Mg Tab.subl 0.4 Mg SL PRN Q5MIN PRN 30 05/02/16 Rx Levothyroxine Sodium 50 Mcg Tablet 1 Tab PO DAILY 10/22/15 Reported Comments CXR 04/21 CHF Impression . 1. [id number] hypercapnic respiratory failure. She also has component of metabolic acidosis combined with respiratory acidosis. The etiology related to suspected right heart failure. Cannot exclude right lower lobe pneumonia. 2. Underlying obesity hypoventilation syndrome/obstructive sleep apnea, on home BiPAP and oxygen at 3 L. 3. Abnormal chest x-ray consistent with mild congestive heart failure, probably diastolic as she has grade 2 diastolic dysfunction. 4. Lower extremity edema. 5. Chronic kidney disease with recent increase during her previous hospitalization. 6. Minimal history of tobacco use. Plan . 1. Continue with present assist control and make necessary adjustment based on ABGs. 2. Repeat ABG better, previous could be mixed venous. dc sedation 3. We will start CPAP trial once awake 4. empiric antibiotic. 5. Obtain procalcitonin level. 6. Monitor renal function. 7. lasix today 8. DVT prophylaxis. 9. Stress ulcer prophylaxis. 10. Discussed with RN, discussed with the patient's and we will follow along with you. ROBERT SANDOVAL MD Apr 21, 2019 14:04
--- NOTE | 2019-04-21 19:33 | CONS ---
DATE OF CONSULTATION: 04/21/2019 REQUESTING PHYSICIAN: Elizabeth Roblero MD REASON FOR CONSULTATION: Possible healthcare-associated pneumonia. HISTORY OF PRESENT ILLNESS: This is a 58-year-old female with multiple medical problems who was recently discharged from the hospital to the rehab and she returned with unable to breathe. The patient was found to have respiratory distress, hypoxia, respiratory acidosis requiring intubation, and acute renal failure. The patient has been started on Zosyn and consult has been requested. The patient is not able to provide any information as the patient is orally intubated on a ventilator. No nausea, vomiting, diarrhea noted by the RN. The patient does have a low-grade fever. PAST MEDICAL HISTORY: Positive for morbid obesity, hypertension, congestive heart failure, coronary artery disease, atrial fibrillation, chronic obstructive pulmonary disease, diabetes, renal insufficiency, has had hysterectomy, lumbar laminectomy, thoracotomy, lumpectomy, and cardiac stenting done. SOCIAL HISTORY: Unable to obtain. ALLERGIES: No known drug allergies. CURRENT MEDICATIONS: Reviewed. The patient is on Zosyn. REVIEW OF SYSTEMS: As per HPI, all other systems reviewed are negative. PHYSICAL EXAMINATION: GENERAL: Sedated, orally intubated female, not on a ventilator, not in any distress. VITAL SIGNS: Stable with temperature 98.8, T-max 99.5, pulse 76, respirations 20, blood pressure 140/62. HEENT: Both pupils are round and reacting. No conjunctival lesion, no lesion in the mouth. NECK: Supple, no JVP, no lymphadenopathy. LUNGS: Clear. HEART: S1, S2 regular. ABDOMEN: Soft, nontender, no organomegaly. EXTREMITIES: Bilateral lower extremity edema present, erythema present and superficial ulceration of both the legs present. The patient does have a yeast infection in the groin. NEUROLOGIC: The patient was moving all the extremities before intubation and sedation. LABORATORY DATA: White count is 11.8 on admission, now down to 9.6, platelets are normal. BUN and creatinine is 65 and 2.4. Liver functions are normal. BNP is 2699. Urinalysis showed large leukocyte esterase, too numerous to count wbc's, apparently was a catheterized specimen. MRSA screen is negative. Chest x-ray showed cardiomegaly with pulmonary vascular congestion may be atelectasis versus infiltrate in the right lung base. IMPRESSION: 1. Healthcare facility associated pneumonia may have been possible aspiration. 2. Respiratory failure. 3. Renal insufficiency. 4. Urinary tract infection. 5. Diabetes. 6. Hypertension. 7. Chronic obstructive pulmonary disease. 8. Congestive heart failure. 9. Coronary artery disease. 10. Atrial fibrillation. RECOMMENDATIONS: I would continue Zosyn, add Zyvox and Diflucan. Supportive care. We will check the cultures. We will get the tracheal aspirate and we will continue to follow. Overall, long-term prognosis is poor. MIRA HARRIS MD DR: TALHA/apolinar JOB#: [id number] / [id number]
[2019-04-21] MEDS: ATORVASTATIN CALCIUM 20 MG TABLET PO SCH (21:03)
[2019-04-22] VITALS (25 sets, daily range): BP systolic 102–176; BP diastolic 44–86
[2019-04-22] MEDS: PROPOFOL 100 ML IV PRN ×5 (00:09→22:51)
[2019-04-22] MEDS: PIPERACILLIN/TAZOBACTAM 2.25 GM in IV NORMAL SALINE 50ML 50 ML IV SCH ×4 (00:09→18:06)
[2019-04-22] MEDS: INSULIN LISPRO 300 UNITS/3 ML INSULN.PEN. SQ SCH ×8 (00:13→18:11)
[2019-04-22] MEDS: LEVOTHYROXINE 50 MCG TABLET PO SCH (05:57)
--- NOTE | 2019-04-22 07:15 | PDOC ---
PROGRESS NOTES Subjective Subjective Patient sedated, on vent. Objective Objective Vital Signs Date Time Temp Pulse Resp B/P (MAP) Pulse Ox O2 Delivery O2 Flow Rate FiO2 04/22/19 06:00 68 18 122/55 (77) 98 Ventilator 04/22/19 04:00 99.0 99.0 04/20/19 09:00 3.0 Intake and Output 04/22/19 06:59 Intake Total 3474.48 ml Output Total 3460 ml Balance 14.48 ml IV Total 2093.48 ml Tube Feeding 981 ml Blood Product IV Normal Saline Flush 200 ml Other 200 ml Output Urine Total 3460 ml Gastric Drainage Total 0 ml # Bowel Movements 3 Physical Exam Abdomen: Normal bowel sounds, Soft, No tenderness Heart: Regular rate Extremities: Other (scant edema bilateral LE's) General: No acute distress Lungs: Clear to auscultation (anteriorly) Assessment Assessment Problems Medical Problems: (1) Acute respiratory failure with hypoxia and hypercapnia Status: Acute (2) Hadth-ru-qyikdpt kidney injury Status: Acute (3) CHF (congestive heart failure) Status: Acute (4) COPD exacerbation Status: Acute Plan Plan of Care 1. Acute respiratory failure with pneumonia - stable on vent, continue manag ement per Pulmonary. 2. Acute kidney injury with CKD III - lab from this AM pending, continue to follow. Management per Renal. 3. CHF with diastolic dysfunction - some diuresis yesterday from Lasix x1. Appears stable overall. 4. Pneumonia with possible UTI - cultures pending, now on broad-spectrum tx per ID. 5. DM2 - controlled with prn insulin. 6. HTN - controlled, continue present medications. 7. PAF - stable, remains in sinus, continue anticoagulation. Comment Review of Relevant I have reviewed the following items jim (where applicable) has been applied. Labs Laboratory Tests Test 04/20/19 07:27 04/20/19 08:15 04/20/19 12:25 04/20/19 14:55 Glucose (Fingerstick) 201 mg/dL (70-99) 216 mg/dL (70-99) O2 Saturation 97 % (92-99) Arterial Blood pH 7.43 (7.35-7.45) Arterial Blood pCO2 at Patient Temp 36 mmHg (35-46) Arterial Blood pO2 at Patient Temp 105 mmHg (75-108) Arterial Blood HCO3 23 mmol/L (21-28) Arterial Blood Base Excess -1 mmol/L (-3-3) FiO2 60 Urine Collection Type U cath Urine Color Yellow Urine Clarity Cloudy Urine pH 5.0 Urine Specific Marshall 1.020 Urine Protein 100 mg/dL (NEG-TRACE) Urine Glucose (UA) Negative mg/dL (NEG) Urine Ketones (Stick) Negative mg/dL (NEG) Urine Blood Negative (NEG) Urine Nitrite Negative (NEG) Urine Bilirubin Negative (NEG) Urine Urobilinogen Dipstick 0.2 mg/dL (0.2 mg/dL) Urine Leukocyte Esterase Large (NEG) Urine RBC 0 /HPF (0-2) Urine WBC Tntc /HPF (0-4) Urine Squamous Epithelial Cells Mod /LPF Urine Bacteria Mod /HPF (0-FEW) Test 04/20/19 18:02 04/20/19 21:24 04/21/19 00:04 04/21/19 04:30 Glucose (Fingerstick) 212 mg/dL (70-99) 195 mg/dL (70-99) 197 mg/dL (70-99) Sodium Level 141 mmol/L (136-145) Potassium Level 4.6 mmol/L (3.5-5.1) Chloride Level 104 mmol/L (98-107) Carbon Dioxide Level 27 mmol/L (21-32) Anion Gap 10 (6-14) Blood Urea Nitrogen 65 mg/dL (7-20) Creatinine 2.4 mg/dL (0.6-1.0) Estimated GFR (Cockcroft-Gault) 20.9 Glucose Level 151 mg/dL (70-99) Calcium Level 8.4 mg/dL (8.5-10.1) Procalcitonin 0.24 ng/mL (0.00-0.10) Test 04/21/19 06:01 04/21/19 08:00 04/21/19 09:13 04/21/19 12:10 Glucose (Fingerstick) 138 mg/dL (70-99) 134 mg/dL (70-99) 146 mg/dL (70-99) O2 Saturation 85 % (92-99) Arterial Blood pH 7.49 (7.35-7.45) Arterial Blood pCO2 at Patient Temp 40 mmHg (35-46) Arterial Blood pO2 at Patient Temp 50 mmHg (75-108) Arterial Blood HCO3 30 mmol/L (21-28) Arterial Blood Base Excess 6 mmol/L (-3-3) FiO2 50 Test 04/21/19 12:15 04/21/19 17:29 04/21/19 21:11 04/22/19 00:11 O2 Saturation 96 % (92-99) Arterial Blood pH 7.52 (7.35-7.45) Arterial Blood pCO2 at Patient Temp 32 mmHg (35-46) Arterial Blood pO2 at Patient Temp 89 mmHg (75-108) Arterial Blood HCO3 26 mmol/L (21-28) Arterial Blood Base Excess 3 mmol/L (-3-3) FiO2 50 Glucose (Fingerstick) 146 mg/dL (70-99) 136 mg/dL (70-99) 167 mg/dL (70-99) Test 04/22/19 06:00 Glucose (Fingerstick) 160 mg/dL (70-99) Laboratory Tests Test 04/21/19 08:00 04/21/19 09:13 04/21/19 12:10 04/21/19 12:15 O2 Saturation 85 % (92-99) 96 % (92-99) Arterial Blood pH 7.49 (7.35-7.45) 7.52 (7.35-7.45) Arterial Blood pCO2 at Patient Temp 40 mmHg (35-46) 32 mmHg (35-46) Arterial Blood pO2 at Patient Temp 50 mmHg (75-108) 89 mmHg (75-108) Arterial Blood HCO3 30 mmol/L (21-28) 26 mmol/L (21-28) Arterial Blood Base Excess 6 mmol/L (-3-3) 3 mmol/L (-3-3) FiO2 50 50 Glucose (Fingerstick) 134 mg/dL (70-99) 146 mg/dL (70-99) Test 04/21/19 17:29 04/21/19 21:11 04/22/19 00:11 04/22/19 06:00 Glucose (Fingerstick) 146 mg/dL (70-99) 136 mg/dL (70-99) 167 mg/dL (70-99) 160 mg/dL (70-99) Medications Current Medications Albuterol Sulfate (Ventolin Neb Soln) 2.5 mg STK-MED ONCE .ROUTE ; Start 04/19/19 at 20:52; Stop 04/19/19 at 20:53; Status DC Ipratropium [place] (Atrovent) 0.5 mg 1X ONCE NEB Last administered on 04/19/19at 21:00; Start 04/19/19 at 21:00; Stop 04/19/19 at 21:01; Status DC Methylprednisolone Sodium Succinate (SOLU-Medrol 125MG VIAL) 250 mg 1X ONCE IV Last administered on 04/19/19at 21:08; Start 04/19/19 at 21:00; Stop 04/19/19 at 21:01; Status DC Albuterol Sulfate (Ventolin Neb Soln) 10 mg 1X ONCE CONT NEB Last administered on 04/19/19at 21:00; Start 04/19/19 at 21:00; Stop 04/19/19 at 21:01; Status DC Morphine Sulfate (Morphine Sulfate) 2 mg PRN Q15MIN PRN IV/SQ PAIN GREATER THAN 3/10 Last administered on 04/19/19at 21:14; Start 04/19/19 at 21:00; Stop 04/20/19 at 14:38; Status DC Furosemide (Lasix) 80 mg 1X ONCE IVP Last administered on 04/19/19at 21:20; Start 04/19/19 at 21:30; Stop 04/19/19 at 21:31; Status DC Propofol 50 ml @ As Directed STK-MED ONCE IV ; Start 04/19/19 at 21:42; Stop 04/19/19 at 21:43; Status DC Propofol 100 ml @ 0 mls/hr CONT PRN IV SEE PROTOCOL Last administered on 04/22/19at 05:58; Start 04/19/19 at 22:00 Etomidate (Amidate) 20 mg STK-MED ONCE IV ; Start 04/19/19 at 22:13; Stop 04/19/19 at 22:14; Status DC Vecuronium [place] (Norcuron Bolus) 10 mg STK-MED ONCE IV ; Start 04/19/19 at 22:13; Stop 04/19/19 at 22:14; Status DC Midazolam HCl (Versed) 5 mg 1X ONCE NS ; Start 04/19/19 at 22:30; Stop 04/19/19 at 22:31; Status DC Propofol 50 ml @ 1.551 mls/ hr 1X ONCE IV Last administered on 04/19/19at 21:47; Start 04/19/19 at 21:40; Stop 04/21/19 at 05:54; Status DC Vecuronium [place] (Norcuron Bolus) 20 mg 1X ONCE IV Last administered on 04/19/19at 21:39; Start 04/19/19 at 21:40; Stop 04/19/19 at 22:39; Status DC Etomidate (Amidate) 30 mg 1X ONCE IV Last administered on 04/19/19at 21:38; Start 04/19/19 at 21:40; Stop 04/19/19 at 22:39; Status DC Midazolam HCl (Versed) 5 mg 1X ONCE IV Last administered on 04/19/19at 22:23; Start 04/19/19 at 22:45; Stop 04/19/19 at 22:46; Status DC Albuterol/ Ipratropium (Duoneb) 3 ml RTQID NEB Last administered on 04/21/19at 20:03; Start 04/20/19 at 08:00 Albuterol Sulfate (Ventolin Neb Soln) 2.5 mg PRN Q4HRS PRN NEB SHORTNESS OF BREATH Last administered on 04/20/19at 03:20; Start 04/20/19 at 02:00 Heparin Sodium (Porcine) (Heparin Sodium) 5,000 unit Q8HRS SQ ; Start 04/20/19 at 14:00; Stop 04/20/19 at 14:00; Status DC Piperacillin Sod/ Tazobactam Sod (Zosyn Per Pharmacy) 1 each PRN DAILY PRN MC SEE COMMENTS; Start 04/20/19 at 10:00 Sodium Bicarbonate (Sodium Bicarb Adult 8.4% Syr) 50 meq 1X ONCE IV Last administered on 04/20/19at 11:11; Start 04/20/19 at 11:00; Stop 04/20/19 at 11:11; Status DC Piperacillin Sod/ Tazobactam Sod 2.25 gm/Sodium Chloride 50 ml @ 100 mls/hr Q6HRS IV Last administered on 04/22/19at 05:57; Start 04/20/19 at 12:00 Insulin Human Lispro (HumaLOG) 0-9 UNITS TIDWMEALS SQ ; Start 04/20/19 at 12:00; Stop 04/20/19 at 12:00; Status DC Dextrose (Dextrose 50%-Water Syringe) 12.5 gm PRN Q15MIN PRN IV SEE COMMENTS; Start 04/20/19 at 11:00 Alprazolam (Xanax) 0.5 mg PRN Q6HRS PRN PO ANXIETY / AGITATION; Start 04/20/19 at 11:00 Amlodipine Besylate (Norvasc) 5 mg DAILY PO Last administered on 04/21/19at 08:40; Start 04/20/19 at 12:00 Apixaban (Eliquis) 5 mg BID PO Last administered on 04/21/19at 21:03; Start 04/20/19 at 12:00 Aspirin (Children'S Aspirin) 81 mg DAILY PO Last administered on 04/21/19at 08:37; Start 04/20/19 at 12:00 Atorvastatin Calcium (Lipitor) 40 mg HS PO Last administered on 04/21/19at 21:03; Start 04/20/19 at 21:00 Cilostazol (Pletal) 50 mg BID PO Last administered on 04/21/19at 21:03; Start 04/20/19 at 12:00 Acetaminophen/ Hydrocodone Bitart (Lortab 10/325) 1 tab PRN Q6HRS PRN PO SEVERE PAIN 7-10; Start 04/20/19 at 11:00 Insulin Glargine (Lantus) 75 units BID SQ Last administered on 04/21/19at 09:18; Start 04/20/19 at 12:00 Insulin Human Lispro (HumaLOG) 30 units TIDWMEALS SQ ; Start 04/20/19 at 12:00; Stop 04/20/19 at 12:00; Status DC Metoprolol Succinate (Toprol Xl) 100 mg DAILY PO ; Start 04/20/19 at 12:00; Status Cancel Nitroglycerin (Nitrostat) 0.4 mg PRN Q5MIN PRN SL CP RATING > 1/10; Start 04/20/19 at 11:00 Nystatin (Nystop) 1 sally BID TP Last administered on 04/21/19at 21:03; Start 04/20/19 at 12:00 Duloxetine HCl (Cymbalta) 60 mg BID PO Last administered on 04/20/19at 21:16; Start 04/20/19 at 12:00; Stop 04/21/19 at 08:10; Status DC Pantoprazole Sodium (Protonix) 40 mg DAILYAC PO ; Start 04/20/19 at 12:00; Stop 04/20/19 at 12:00; Status DC Fluticasone Propionate (Flonase) 2 spray PRN DAILY PRN NS ALLERGIES Last administered on 04/21/19at 17:30; Start 04/20/19 at 12:00 Hydralazine HCl (Apresoline) 50 mg TID PO Last administered on 04/21/19at 21:04; Start 04/20/19 at 14:00 Levothyroxine Sodium (Synthroid) 50 mcg DAILY06 PO Last administered on 04/22/19at 05:57; Start 04/20/19 at 12:00 Pregabalin (Lyrica) 150 mg BID PO Last administered on 04/21/19at 21:03; Start 04/20/19 at 12:00 Tizanidine HCl (Zanaflex) 4 mg PRN Q8HRS PRN PO MUSCLE SPASMS; Start 04/20/19 at 11:00 Famotidine (Pepcid Vial) 20 mg DAILY IVP ; Start 04/21/19 at 09:00; Status Cancel Insulin Human Lispro (HumaLOG) 0-9 UNITS Q6HRS SQ Last administered on 04/22/19at 06:02; Start 04/20/19 at 12:00 Insulin Human Lispro (HumaLOG) 30 units Q6HRS SQ Last administered on 04/21/19at 00:06; Start 04/20/19 at 12:00 Pantoprazole Sodium (PROTONIX VIAL for IV PUSH) 40 mg DAILYAC IVP Last administered on 04/21/19at 07:47; Start 04/21/19 at 07:30 Metoprolol Tartrate (Lopressor) 50 mg BID PO Last administered on 04/21/19at 21:04; Start 04/20/19 at 12:30 Acetaminophen (Tylenol) 650 mg PRN Q6HRS PRN PEG MILD PAIN / TEMP; Start 04/20/19 at 16:00 Venlafaxine HCl (Effexor) 50 mg TID NG Last administered on 04/21/19at 21:03; Start 04/21/19 at 09:00 Furosemide (Lasix) 20 mg 1X ONCE IVP Last administered on 04/21/19at 11:49; Start 04/21/19 at 11:45; Stop 04/21/19 at 11:48; Status DC Linezolid/Dextrose 300 ml @ 300 mls/hr Q12HR IV Last administered on 04/21/19at 21:04; Start 04/21/19 at 14:00 Fluconazole/ Sodium Chloride 100 ml @ 100 mls/hr Q24H IV Last administered on 04/21/19at 13:08; Start 04/21/19 at 14:00 Active Scripts Active Humalog (Insulin Lispro) 100 Unit/1 Ml Insuln.pen 30 Units SQ TIDWMEALS 30 Days Toprol Xl (Metoprolol Succinate) 50 Mg Tab.er.24h 100 Mg PO DAILY Hydralazine Hcl 25 Mg Tablet 50 Mg PO TID Cilostazol 50 Mg Tablet 50 Mg PO BID Xanax (Alprazolam) 0.5 Mg Tablet 0.5 Mg PO PRN Q6HRS PRN Ondansetron Odt (Ondansetron) 4 Mg Tab.rapdis 1 Tab PO PRN Q6-8HRS Nystop (Nystatin) 60 Gm Powder 1 Sally TP BID 30 Days Colace (Docusate Sodium) 100 Mg Capsule 100 Mg PO BID Senna-Time S Tablet (Sennosides/Docusate Sodium) 1 Each Tablet 1 Tab PO BID Nitrostat (Nitroglycerin) 0.4 Mg Tab.subl 0.4 Mg SL PRN Q5MIN PRN 30 Days Reported Lantus Solostar (Insulin Glargine,Hum.rec.anlog) 100 Unit/1 Ml Insuln.pen 75 Unit SQ BID Tizanidine Hcl 4 Mg Tablet 1 Tab PO TID Duloxetine Hcl 60 Mg Capsule.dr 60 Mg PO BID Trulicity (Dulaglutide) 0.75 Mg/0.5 Ml Pen.injctr 0.75 Mg SUBCUT QFR Amlodipine Besylate 5 Mg Tablet 5 Mg PO DAILY Ventolin Hfa Inhaler (Albuterol Sulfate) 18 Gm Hfa.aer.ad 2 Puff INH PRN Q4HRS PRN Duoneb 0.5-3(2.5) Mg/3 Ml (Albuterol/Ipratropium) 3 Ml Ampul.neb 3 Ml NEB PRN QID PRN Flonase Allergy Relief (Fluticasone Propionate) 9.9 Ml [place].susp 2 Sprays NS PRN PRN Clonidine Hcl 0.1 Mg Tablet 1 Tab PO PRN PRN When SBP >150 Eliquis (Apixaban) 5 Mg Tablet 5 Mg PO BID Lyrica (Pregabalin) 150 Mg Capsule 1 Cap PO BID Atorvastatin Calcium 20 Mg Tablet 2 Tab PO HS Nexium Capsule (Esomeprazole Magnesium) 40 Mg Capsule.dr 1 Cap PO BID Aspirin 81 Mg Tab.chew 1 Tab PO DAILY Levothyroxine Sodium 50 Mcg Tablet 1 Tab PO DAILY Vitals/I & O Vital Sign - Last 24 Hours 04/21/19 04/21/19 04/21/19 04/21/19 08:00 08:00 08:15 08:38 Temp 99.5 99.5 Pulse 78 81 Resp 19 B/P (MAP) 137/65 (89) 137/65 Pulse Ox 98 97 O2 Delivery Mechanical Ventilator Ventilator Ventilator 04/21/19 04/21/19 04/21/19 04/21/19 08:40 08:43 09:00 10:00 Pulse 81 81 79 74 Resp 19 20 B/P (MAP) 137/65 137/65 120/57 (78) 105/47 (66) Pulse Ox 97 99 O2 Delivery Ventilator Ventilator 04/21/19 04/21/19 04/21/19 04/21/19 10:30 11:00 12:00 12:00 Temp 98.8 98.8 Pulse 74 76 Resp 20 20 B/P (MAP) 108/55 (72) 140/62 (88) Pulse Ox 97 99 98 O2 Delivery Ventilator Ventilator Ventilator Mechanical Ventilator 04/21/19 04/21/19 04/21/19 04/21/19 12:16 13:00 14:00 14:15 Pulse 79 76 Resp 12 20 B/P (MAP) 120/55 (76) 114/44 (67) Pulse Ox 98 92 93 94 O2 Delivery Ventilator Room Air Ventilator Ventilator 04/21/19 04/21/19 04/21/19 04/21/19 14:16 15:00 16:00 16:00 Temp 99.4 99.4 Pulse 76 75 75 Resp 19 20 B/P (MAP) 114/44 107/45 (65) 119/58 (78) Pulse Ox 95 94 O2 Delivery Ventilator Mechanical Ventilator Ventilator 04/21/19 04/21/19 04/21/19 04/21/19 16:12 17:00 18:00 18:06 Pulse 74 82 Resp 17 20 B/P (MAP) 103/46 (65) 131/66 (87) Pulse Ox 95 95 94 93 O2 Delivery Ventilator Ventilator Ventilator Ventilator 04/21/19 04/21/19 04/21/19 04/21/19 19:00 20:00 20:00 20:03 Temp 98.8 98.8 Pulse 82 79 Resp 20 18 B/P (MAP) 132/70 (90) 126/54 (78) Pulse Ox 97 96 95 O2 Delivery Ventilator Mechanical Ventilator Ventilator Ventilator 04/21/19 04/21/19 04/21/19 04/21/19 21:00 21:04 21:04 22:00 Pulse 76 83 83 71 Resp 18 18 B/P (MAP) 151/69 (96) 151/69 151/69 104/47 (66) Pulse Ox 95 96 O2 Delivery Ventilator Ventilator 04/21/19 04/21/19 04/22/19 04/22/19 22:10 23:00 00:00 00:00 Temp 98.8 98.8 Pulse 71 68 Resp 18 18 B/P (MAP) 109/48 (68) 109/47 (67) Pulse Ox 96 96 98 O2 Delivery Ventilator Ventilator Mechanical Ventilator Ventilator 04/22/19 04/22/19 04/22/19 04/22/19 01:00 01:10 02:00 03:00 Pulse 68 67 68 Resp 18 18 18 B/P (MAP) 106/48 (67) 102/44 (63) 118/59 (78) Pulse Ox 98 98 98 98 O2 Delivery Ventilator Ventilator Ventilator Ventilator 04/22/19 04/22/19 04/22/19 04/22/19 03:20 04:00 04:00 05:00 Temp 99.0 99.0 Pulse 66 71 Resp 18 18 B/P (MAP) 107/49 (68) 116/56 (76) Pulse Ox 98 98 98 O2 Delivery Ventilator Mechanical Ventilator Ventilator Ventilator 04/22/19 04/22/19 05:45 06:00 Pulse 68 Resp 18 B/P (MAP) 122/55 (77) Pulse Ox 96 98 O2 Delivery Ventilator Ventilator Intake and Output 04/21/19 04/21/19 04/22/19 14:59 22:59 06:59 Intake Total 350 ml 1705.88 ml 1418.6 ml Output Total 1200 ml 1375 ml 885 ml Balance -850 ml 330.88 ml 533.6 ml JUSTIN TAVAREZ MD Apr 22, 2019 07:15
[2019-04-22] MEDS: IPRATRPIUM/ALBUTEROL 0.5/2.5MG 3 ML NEBU. NEB SCH ×4 (07:53→19:46)
[2019-04-22] MEDS: PANTOPRAZOLE IV PUSH 40 MG VIAL. IVP SCH (07:58)
[2019-04-22] MEDS: CILOSTAZOL 50 MG TABLET. PO SCH ×2 (08:04→20:47)
[2019-04-22] MEDS: VENLAFAXINE 50 MG TABLET. NG SCH ×3 (08:04→20:47)
[2019-04-22] MEDS: APIXABAN 5 MG TABLET. PO SCH ×2 (08:04→20:50)
[2019-04-22] MEDS: PREGABALIN 75 MG CAPSULE PO SCH ×3 (08:04→22:05)
[2019-04-22] MEDS: ASPIRIN CHEWABLE 81 MG TABLET. PO SCH (08:05)
[2019-04-22] MEDS: NYSTATIN TOPICAL POWDER 15GM BOTTLE. TP SCH ×2 (08:05→21:05)
[2019-04-22] MEDS: INSULIN GLARGINE 300 UNITS/3 ML INSULN.PEN. SQ SCH ×2 (08:08→20:56)
--- NOTE | 2019-04-22 08:11 | PDOC ---
Infectious Disease Note Subjective: Subjective pt is intubated, sedated ROS: ROS unable to obtain Vital Signs: Vital Signs Vital Signs Date Time Temp Pulse Resp B/P (MAP) Pulse Ox O2 Delivery O2 Flow Rate FiO2 04/22/19 07:45 99 Ventilator 04/22/19 07:00 65 18 106/47 (66) 04/22/19 04:00 99.0 99.0 Physical Exam: PHYSICAL EXAM GEN intubated, sedated HEENT: Both pupils are round and reacting. No conjunctival lesion, no lesion in the mouth. NECK: Supple, no JVP, no lymphadenopathy. LUNGS: Clear. HEART: S1, S2 regular. ABDOMEN: Soft, nontender, no organomegaly. EXTREMITIES: Bilateral lower extremity edema present, erythema present and superficial ulceration of both the legs present. The patient does have a yeast infection in the groin. NEUROLOGIC: The patient was moving all the extremities before intubation and sedation. Medications: Inpatient Meds: Current Medications Medications (Trade) Dose Ordered Sig/Jesus Manuel Start Time Stop Time Status Last Admin Dose Admin Acetaminophen (Tylenol) 650 mg PRN Q6HRS PRN 04/20/19 16:00 Acetaminophen/ Hydrocodone Bitart (Lortab 10/325) 1 tab PRN Q6HRS PRN 04/20/19 11:00 Albuterol Sulfate (Ventolin Neb Soln) 2.5 mg PRN Q4HRS PRN 04/20/19 02:00 04/20/19 03:20 2.5 MG Albuterol/ Ipratropium (Duoneb) 3 ml RTQID 04/20/19 08:00 04/22/19 07:53 3 ML Alprazolam (Xanax) 0.5 mg PRN Q6HRS PRN 04/20/19 11:00 Amlodipine Besylate (Norvasc) 5 mg DAILY 04/20/19 12:00 04/21/19 08:40 5 MG Apixaban (Eliquis) 5 mg BID 04/20/19 12:00 04/21/19 21:03 5 MG Aspirin (Children'S Aspirin) 81 mg DAILY 04/20/19 12:00 04/21/19 08:37 81 MG Atorvastatin Calcium (Lipitor) 40 mg HS 04/20/19 21:00 04/21/19 21:03 40 MG Cilostazol (Pletal) 50 mg BID 04/20/19 12:00 04/21/19 21:03 50 MG Dextrose (Dextrose 50%-Water Syringe) 12.5 gm PRN Q15MIN PRN 04/20/19 11:00 Duloxetine HCl (Cymbalta) 60 mg BID 04/20/19 12:00 04/21/19 08:10 DC 04/20/19 21:16 60 MG Etomidate (Amidate) 30 mg 1X ONCE 04/19/19 21:40 04/19/19 22:39 DC 04/19/19 21:38 30 MG Famotidine (Pepcid Vial) 20 mg DAILY 04/21/19 09:00 Cancel Fluconazole/ Sodium Chloride 100 ml @ 100 mls/hr Q24H 04/21/19 14:00 04/21/19 13:08 100 MLS/HR Fluticasone Propionate (Flonase) 2 spray PRN DAILY PRN 04/20/19 12:00 04/21/19 17:30 2 SPRAY Furosemide (Lasix) 20 mg 1X ONCE 04/21/19 11:45 04/21/19 11:48 DC 04/21/19 11:49 20 MG Heparin Sodium (Porcine) (Heparin Sodium) 5,000 unit Q8HRS 04/20/19 14:00 04/20/19 14:00 DC Hydralazine HCl (Apresoline) 50 mg TID 04/20/19 14:00 04/21/19 21:04 50 MG Insulin Glargine (Lantus) 75 units BID 04/20/19 12:00 04/21/19 09:18 75 UNITS Insulin Human Lispro (HumaLOG) 30 units Q6HRS 04/20/19 12:00 04/21/19 00:06 30 UNITS Ipratropium [place] (Atrovent) 0.5 mg 1X ONCE 04/19/19 21:00 04/19/19 21:01 DC 04/19/19 21:00 0.5 MG Levothyroxine Sodium (Synthroid) 50 mcg DAILY06 04/20/19 12:00 04/22/19 05:57 50 MCG Linezolid/Dextrose 300 ml @ 300 mls/hr Q12HR 04/21/19 14:00 04/21/19 21:04 300 MLS/HR Methylprednisolone Sodium Succinate (SOLU-Medrol 125MG VIAL) 250 mg 1X ONCE 04/19/19 21:00 04/19/19 21:01 DC 04/19/19 21:08 250 MG Metoprolol Succinate (Toprol Xl) 100 mg DAILY 04/20/19 12:00 Cancel Metoprolol Tartrate (Lopressor) 50 mg BID 04/20/19 12:30 04/21/19 21:04 50 MG Midazolam HCl (Versed) 5 mg 1X ONCE 04/19/19 22:45 04/19/19 22:46 DC 04/19/19 22:23 5 MG Morphine Sulfate (Morphine Sulfate) 2 mg PRN Q15MIN PRN 04/19/19 21:00 04/20/19 14:38 DC 04/19/19 21:14 2 MG Nitroglycerin (Nitrostat) 0.4 mg PRN Q5MIN PRN 04/20/19 11:00 Nystatin (Nystop) 1 eric BID 04/20/19 12:00 04/21/19 21:03 1 ERIC Pantoprazole Sodium (PROTONIX VIAL for IV PUSH) 40 mg DAILYAC 04/21/19 07:30 04/21/19 07:47 40 MG Pantoprazole Sodium (Protonix) 40 mg DAILYAC 04/20/19 12:00 04/20/19 12:00 DC Piperacillin Sod/ Tazobactam Sod (Zosyn Per Pharmacy) 1 each PRN DAILY PRN 04/20/19 10:00 Piperacillin Sod/ Tazobactam Sod 2.25 gm/Sodium Chloride 50 ml @ 100 mls/hr Q6HRS 04/20/19 12:00 04/22/19 05:57 100 MLS/HR Pregabalin (Lyrica) 150 mg BID 04/20/19 12:00 04/21/19 21:03 150 MG Propofol 50 ml @ 1.551 mls/ hr 1X ONCE 04/19/19 21:40 04/21/19 05:54 DC 04/19/19 21:47 3.103 MLS/HR Sodium Bicarbonate (Sodium Bicarb Adult 8.4% Syr) 50 meq 1X ONCE 04/20/19 11:00 04/20/19 11:11 DC 04/20/19 11:11 50 MEQ Tizanidine HCl (Zanaflex) 4 mg PRN Q8HRS PRN 04/20/19 11:00 Vecuronium [place] (Norcuron Bolus) 20 mg 1X ONCE 04/19/19 21:40 04/19/19 22:39 DC 04/19/19 21:39 20 MG Venlafaxine HCl (Effexor) 50 mg TID 04/21/19 09:00 04/21/19 21:03 50 MG Labs: Lab Laboratory Tests Test 04/21/19 09:13 04/21/19 12:10 04/21/19 12:15 04/21/19 17:29 Glucose (Fingerstick) 134 mg/dL (70-99) 146 mg/dL (70-99) 146 mg/dL (70-99) O2 Saturation 96 % (92-99) Arterial Blood pH 7.52 (7.35-7.45) Arterial Blood pCO2 at Patient Temp 32 mmHg (35-46) Arterial Blood pO2 at Patient Temp 89 mmHg (75-108) Arterial Blood HCO3 26 mmol/L (21-28) Arterial Blood Base Excess 3 mmol/L (-3-3) FiO2 50 Test 04/21/19 21:11 04/22/19 00:11 04/22/19 06:00 Glucose (Fingerstick) 136 mg/dL (70-99) 167 mg/dL (70-99) 160 mg/dL (70-99) Objective: Assessment: 1. Healthcare facility associated pneumonia may have been possible aspiration. 2. Respiratory failure. 3. Renal insufficiency. 4. Urinary tract infection. 5. Diabetes. 6. Hypertension. 7. Chronic obstructive pulmonary disease. 8. Congestive heart failure. 9. Coronary artery disease. 10. Atrial fibrillation. 11. Loose bm on tube feedings Plan: Plan of Care continue Zosyn, Zyvox and Diflucan. check c diff if loose bm continues f/u c/s and labs Overall, long-term prognosis is poor. D/W LAVELL JAMES MD Apr 22, 2019 08:11
[2019-04-22] MEDS: amLODIPine BESYLATE 5 MG TABLET PO SCH ×2 (09:00→09:24)
[2019-04-22] MEDS: METOPROLOL TART IMMED RELEASE 25 MG TABLET. PO SCH ×3 (09:00→20:51)
[2019-04-22 09:07] LABS: BASE EXCESS ABG 3 mmol/L (-3-3); HCO3 ABG 27 mmol/L (21-28); PCO2 ABG 36 mmHg (35-46); PO2 ABG 110 mmHg (75-108); SAT O2 ABG 97 % (92-99)
[2019-04-22 09:08] LABS: CALCIUM 8.6 mg/dL (8.5-10.1); CREATININE 2.2 mg/dL (0.6-1.0); GFR 23.1; POTASSIUM 4.5 mmol/L (3.5-5.1)
[2019-04-22 09:09] LABS: FIO2 ABG 45
--- NOTE | 2019-04-22 09:50 | PDOC ---
SUBJECTIVE ROS Stable, Sedation just turned off, on MV , No acute events overnight OBJECTIVE Vital Signs Vital Signs Date Time Temp Pulse Resp B/P (MAP) Pulse Ox O2 Delivery O2 Flow Rate FiO2 04/22/19 09:35 Ventilator 04/22/19 09:28 98 04/22/19 09:24 68 128/61 04/22/19 09:00 18 04/22/19 08:00 98.7 98.7 I & 0 Intake and Output 04/22/19 06:59 Intake Total 3474.48 ml Output Total 3460 ml Balance 14.48 ml IV Total 2093.48 ml Tube Feeding 981 ml Blood Product IV Normal Saline Flush 200 ml Other 200 ml Output Urine Total 3460 ml Gastric Drainage Total 0 ml # Bowel Movements 3 PHYSICAL EXAM Physical Exam GENERAL: intubated HEENT: Sclerae nonicteric. NECK: Supple. LUNGS: Diminished breath sounds. CARDIOVASCULAR: Regular rate and rhythm. ABDOMEN: Soft, nontender EXTREMITIES: Bilateral pitting edema, Improved Mcgee + DIAGNOSIS/ASSESSMENT Assessment & Plan JENNIFER - ATN renal function improving Normal US 04/02/19 E-Lytes stable , Supportive care, Monitor Recurrent UTI- UA shows WBC-tntc ID following CKD stage 3- Follows with Dr. Santana,Last office visit 01/2018 Cr ranging from 1.0- 1.5 since [address] [facility] Cr 1.4-2.1 Anemia- Hgb stable Acute hypercapnic respiratory failure: Intubated and On MV Healthcare facility associated pneumonia may have been possible aspiration. CHF with diastolic dysfunction and CAD - preserved ejection fraction on a recent echocardiogram. Paroxysmal atrial fibrillation: Presently in sinus rhythm. On Eliquis and her beta-ryanne. Diabetes mellitus type 2, insulin dependent: Peripheral artery disease: diagnosed on her last admission,medical management was advised Chr lymphedema COMMENT/RELEVANT DATA Meds Current Medications Medications (Trade) Dose Ordered Sig/Jesus Manuel Start Time Stop Time Status Last Admin Dose Admin Acetaminophen (Tylenol) 650 mg PRN Q6HRS PRN 04/20/19 16:00 Acetaminophen/ Hydrocodone Bitart (Lortab 10/325) 1 tab PRN Q6HRS PRN 04/20/19 11:00 Albuterol Sulfate (Ventolin Neb Soln) 2.5 mg PRN Q4HRS PRN 04/20/19 02:00 04/20/19 03:20 2.5 MG Albuterol/ Ipratropium (Duoneb) 3 ml RTQID 04/20/19 08:00 04/22/19 07:53 3 ML Alprazolam (Xanax) 0.5 mg PRN Q6HRS PRN 04/20/19 11:00 Amlodipine Besylate (Norvasc) 5 mg DAILY 04/20/19 12:00 04/22/19 09:24 5 MG Apixaban (Eliquis) 5 mg BID 04/20/19 12:00 04/22/19 08:04 5 MG Aspirin (Children'S Aspirin) 81 mg DAILY 04/20/19 12:00 04/22/19 08:05 81 MG Atorvastatin Calcium (Lipitor) 40 mg HS 04/20/19 21:00 04/21/19 21:03 40 MG Cilostazol (Pletal) 50 mg BID 04/20/19 12:00 04/22/19 08:04 50 MG Dextrose (Dextrose 50%-Water Syringe) 12.5 gm PRN Q15MIN PRN 04/20/19 11:00 Duloxetine HCl (Cymbalta) 60 mg BID 04/20/19 12:00 04/21/19 08:10 DC 04/20/19 21:16 60 MG Etomidate (Amidate) 30 mg 1X ONCE 04/19/19 21:40 04/19/19 22:39 DC 04/19/19 21:38 30 MG Famotidine (Pepcid Vial) 20 mg DAILY 04/21/19 09:00 Cancel Fluconazole/ Sodium Chloride 100 ml @ 100 mls/hr Q24H 04/21/19 14:00 04/21/19 13:08 100 MLS/HR Fluticasone Propionate (Flonase) 2 spray PRN DAILY PRN 04/20/19 12:00 04/21/19 17:30 2 SPRAY Furosemide (Lasix) 20 mg 1X ONCE 04/21/19 11:45 04/21/19 11:48 DC 04/21/19 11:49 20 MG Heparin Sodium (Porcine) (Heparin Sodium) 5,000 unit Q8HRS 04/20/19 14:00 04/20/19 14:00 DC Hydralazine HCl (Apresoline) 50 mg TID 04/20/19 14:00 04/22/19 09:24 50 MG Info (Anti-Coagulation Monitoring By Pharmacy) 1 each PRN DAILY PRN 04/22/19 08:15 Insulin Glargine (Lantus) 75 units BID 04/20/19 12:00 04/22/19 08:08 75 UNITS Insulin Human Lispro (HumaLOG) 30 units Q6HRS 04/20/19 12:00 04/21/19 00:06 30 UNITS Ipratropium [place] (Atrovent) 0.5 mg 1X ONCE 04/19/19 21:00 04/19/19 21:01 DC 04/19/19 21:00 0.5 MG Levothyroxine Sodium (Synthroid) 50 mcg DAILY06 04/20/19 12:00 04/22/19 05:57 50 MCG Linezolid/Dextrose 300 ml @ 300 mls/hr Q12HR 04/21/19 14:00 04/22/19 08:01 300 MLS/HR Methylprednisolone Sodium Succinate (SOLU-Medrol 125MG VIAL) 250 mg 1X ONCE 04/19/19 21:00 04/19/19 21:01 DC 04/19/19 21:08 250 MG Metoprolol Succinate (Toprol Xl) 100 mg DAILY 04/20/19 12:00 Cancel Metoprolol Tartrate (Lopressor) 50 mg BID 04/20/19 12:30 04/22/19 09:24 50 MG Midazolam HCl (Versed) 5 mg 1X ONCE 04/19/19 22:45 04/19/19 22:46 DC 04/19/19 22:23 5 MG Morphine Sulfate (Morphine Sulfate) 2 mg PRN Q15MIN PRN 04/19/19 21:00 04/20/19 14:38 DC 04/19/19 21:14 2 MG Nitroglycerin (Nitrostat) 0.4 mg PRN Q5MIN PRN 04/20/19 11:00 Nystatin (Nystop) 1 eric BID 04/20/19 12:00 04/22/19 08:05 1 ERIC Pantoprazole Sodium (PROTONIX VIAL for IV PUSH) 40 mg DAILYAC 04/21/19 07:30 04/22/19 07:58 40 MG Pantoprazole Sodium (Protonix) 40 mg DAILYAC 04/20/19 12:00 04/20/19 12:00 DC Piperacillin Sod/ Tazobactam Sod (Zosyn Per Pharmacy) 1 each PRN DAILY PRN 04/20/19 10:00 Piperacillin Sod/ Tazobactam Sod 2.25 gm/Sodium Chloride 50 ml @ 100 mls/hr Q6HRS 04/20/19 12:00 04/22/19 05:57 100 MLS/HR Pregabalin (Lyrica) 150 mg BID 04/20/19 12:00 04/22/19 08:04 150 MG Propofol 50 ml @ 1.551 mls/ hr 1X ONCE 04/19/19 21:40 04/21/19 05:54 DC 04/19/19 21:47 3.103 MLS/HR Sodium Bicarbonate (Sodium Bicarb Adult 8.4% Syr) 50 meq 1X ONCE 04/20/19 11:00 04/20/19 11:11 DC 04/20/19 11:11 50 MEQ Tizanidine HCl (Zanaflex) 4 mg PRN Q8HRS PRN 04/20/19 11:00 Vecuronium [place] (Norcuron Bolus) 20 mg 1X ONCE 04/19/19 21:40 04/19/19 22:39 DC 04/19/19 21:39 20 MG Venlafaxine HCl (Effexor) 50 mg TID 04/21/19 09:00 04/22/19 08:04 50 MG Lab Laboratory Tests Test 04/21/19 12:10 04/21/19 12:15 04/21/19 17:29 04/21/19 21:11 Glucose (Fingerstick) 146 mg/dL (70-99) 146 mg/dL (70-99) 136 mg/dL (70-99) O2 Saturation 96 % (92-99) Arterial Blood pH 7.52 (7.35-7.45) Arterial Blood pCO2 at Patient Temp 32 mmHg (35-46) Arterial Blood pO2 at Patient Temp 89 mmHg (75-108) Arterial Blood HCO3 26 mmol/L (21-28) Arterial Blood Base Excess 3 mmol/L (-3-3) FiO2 50 Test 04/22/19 00:11 04/22/19 06:00 04/22/19 08:07 04/22/19 08:35 Glucose (Fingerstick) 167 mg/dL (70-99) 160 mg/dL (70-99) 138 mg/dL (70-99) Sodium Level 144 mmol/L (136-145) Potassium Level 4.5 mmol/L (3.5-5.1) Chloride Level 105 mmol/L (98-107) Carbon Dioxide Level 29 mmol/L (21-32) Anion Gap 10 (6-14) Blood Urea Nitrogen 62 mg/dL (7-20) Creatinine 2.2 mg/dL (0.6-1.0) Estimated GFR (Cockcroft-Gault) 23.1 Glucose Level 172 mg/dL (70-99) Calcium Level 8.6 mg/dL (8.5-10.1) Test 04/22/19 08:58 O2 Saturation 97 % (92-99) Arterial Blood pH 7.49 (7.35-7.45) Arterial Blood pCO2 at Patient Temp 36 mmHg (35-46) Arterial Blood pO2 at Patient Temp 110 mmHg (75-108) Arterial Blood HCO3 27 mmol/L (21-28) Arterial Blood Base Excess 3 mmol/L (-3-3) FiO2 45 Results All relevant outside records, renal labs, imaging studies, telemetry/EKG's were reviewed. EVERTON HE MD Apr 22, 2019 09:50
[2019-04-22] MEDS: ANTI-COAG MONITOR BY PHARMACY. MC PRN (10:04)
--- NOTE | 2019-04-22 10:48 | NUR ---
IP: patient has recent hx of esbl in urine, requires cotact precautions until 2 negative results 7 days apart.
--- NOTE | 2019-04-22 11:25 | PDOC ---
PULMONARY PROGRESS NOTES Subjective remains intubated/ off sedation, not fully awake yet Vitals Vital Signs Date Time Temp Pulse Resp B/P (MAP) Pulse Ox O2 Delivery O2 Flow Rate FiO2 04/22/19 09:35 Ventilator 04/22/19 09:28 98 04/22/19 09:24 68 128/61 04/22/19 09:00 18 04/22/19 08:00 98.7 98.7 General: Lethargic Lungs: Other (decrease bs) Cardiovascular: S1, S2 Abdomen: Soft, Non-tender, Other Extremities: Other (1+edema) Labs Laboratory Tests Test 04/20/19 12:25 04/20/19 14:55 04/20/19 18:02 04/20/19 21:24 Glucose (Fingerstick) 216 mg/dL (70-99) 212 mg/dL (70-99) 195 mg/dL (70-99) Urine Collection Type U cath Urine Color Yellow Urine Clarity Cloudy Urine pH 5.0 Urine Specific [place] 1.020 Urine Protein 100 mg/dL (NEG-TRACE) Urine Glucose (UA) Negative mg/dL (NEG) Urine Ketones (Stick) Negative mg/dL (NEG) Urine Blood Negative (NEG) Urine Nitrite Negative (NEG) Urine Bilirubin Negative (NEG) Urine Urobilinogen Dipstick 0.2 mg/dL (0.2 mg/dL) Urine Leukocyte Esterase Large (NEG) Urine RBC 0 /HPF (0-2) Urine WBC Tntc /HPF (0-4) Urine Squamous Epithelial Cells Mod /LPF Urine Bacteria Mod /HPF (0-FEW) Test 04/21/19 00:04 04/21/19 04:30 04/21/19 06:01 04/21/19 08:00 Glucose (Fingerstick) 197 mg/dL (70-99) 138 mg/dL (70-99) Sodium Level 141 mmol/L (136-145) Potassium Level 4.6 mmol/L (3.5-5.1) Chloride Level 104 mmol/L (98-107) Carbon Dioxide Level 27 mmol/L (21-32) Anion Gap 10 (6-14) Blood Urea Nitrogen 65 mg/dL (7-20) Creatinine 2.4 mg/dL (0.6-1.0) Estimated GFR (Cockcroft-Gault) 20.9 Glucose Level 151 mg/dL (70-99) Calcium Level 8.4 mg/dL (8.5-10.1) Procalcitonin 0.24 ng/mL (0.00-0.10) O2 Saturation 85 % (92-99) Arterial Blood pH 7.49 (7.35-7.45) Arterial Blood pCO2 at Patient Temp 40 mmHg (35-46) Arterial Blood pO2 at Patient Temp 50 mmHg (75-108) Arterial Blood HCO3 30 mmol/L (21-28) Arterial Blood Base Excess 6 mmol/L (-3-3) FiO2 50 Test 04/21/19 09:13 04/21/19 12:10 04/21/19 12:15 04/21/19 17:29 Glucose (Fingerstick) 134 mg/dL (70-99) 146 mg/dL (70-99) 146 mg/dL (70-99) O2 Saturation 96 % (92-99) Arterial Blood pH 7.52 (7.35-7.45) Arterial Blood pCO2 at Patient Temp 32 mmHg (35-46) Arterial Blood pO2 at Patient Temp 89 mmHg (75-108) Arterial Blood HCO3 26 mmol/L (21-28) Arterial Blood Base Excess 3 mmol/L (-3-3) FiO2 50 Test 04/21/19 21:11 04/22/19 00:11 04/22/19 06:00 04/22/19 08:07 Glucose (Fingerstick) 136 mg/dL (70-99) 167 mg/dL (70-99) 160 mg/dL (70-99) 138 mg/dL (70-99) Test 04/22/19 08:35 04/22/19 08:58 Sodium Level 144 mmol/L (136-145) Potassium Level 4.5 mmol/L (3.5-5.1) Chloride Level 105 mmol/L (98-107) Carbon Dioxide Level 29 mmol/L (21-32) Anion Gap 10 (6-14) Blood Urea Nitrogen 62 mg/dL (7-20) Creatinine 2.2 mg/dL (0.6-1.0) Estimated GFR (Cockcroft-Gault) 23.1 Glucose Level 172 mg/dL (70-99) Calcium Level 8.6 mg/dL (8.5-10.1) O2 Saturation 97 % (92-99) Arterial Blood pH 7.49 (7.35-7.45) Arterial Blood pCO2 at Patient Temp 36 mmHg (35-46) Arterial Blood pO2 at Patient Temp 110 mmHg (75-108) Arterial Blood HCO3 27 mmol/L (21-28) Arterial Blood Base Excess 3 mmol/L (-3-3) FiO2 45 Laboratory Tests Test 04/21/19 12:10 04/21/19 12:15 04/21/19 17:29 04/21/19 21:11 Glucose (Fingerstick) 146 mg/dL (70-99) 146 mg/dL (70-99) 136 mg/dL (70-99) O2 Saturation 96 % (92-99) Arterial Blood pH 7.52 (7.35-7.45) Arterial Blood pCO2 at Patient Temp 32 mmHg (35-46) Arterial Blood pO2 at Patient Temp 89 mmHg (75-108) Arterial Blood HCO3 26 mmol/L (21-28) Arterial Blood Base Excess 3 mmol/L (-3-3) FiO2 50 Test 04/22/19 00:11 04/22/19 06:00 04/22/19 08:07 04/22/19 08:35 Glucose (Fingerstick) 167 mg/dL (70-99) 160 mg/dL (70-99) 138 mg/dL (70-99) Sodium Level 144 mmol/L (136-145) Potassium Level 4.5 mmol/L (3.5-5.1) Chloride Level 105 mmol/L (98-107) Carbon Dioxide Level 29 mmol/L (21-32) Anion Gap 10 (6-14) Blood Urea Nitrogen 62 mg/dL (7-20) Creatinine 2.2 mg/dL (0.6-1.0) Estimated GFR (Cockcroft-Gault) 23.1 Glucose Level 172 mg/dL (70-99) Calcium Level 8.6 mg/dL (8.5-10.1) Test 04/22/19 08:58 O2 Saturation 97 % (92-99) Arterial Blood pH 7.49 (7.35-7.45) Arterial Blood pCO2 at Patient Temp 36 mmHg (35-46) Arterial Blood pO2 at Patient Temp 110 mmHg (75-108) Arterial Blood HCO3 27 mmol/L (21-28) Arterial Blood Base Excess 3 mmol/L (-3-3) FiO2 45 Medications Active Scripts Medications Dose Route/Sig Max Daily Dose Days Date Category Dose Instructions Humalog (Insulin Lispro) 100 Unit/1 Ml Insuln.pen 30 Units SQ TIDWMEALS 30 04/15/19 Rx Toprol Xl (Metoprolol Succinate) 50 Mg Tab.er.24h 100 Mg PO DAILY 04/15/19 Rx Hydralazine Hcl 25 Mg Tablet 50 Mg PO TID 04/15/19 Rx Cilostazol 50 Mg Tablet 50 Mg PO BID 04/15/19 Rx Xanax (Alprazolam) 0.5 Mg Tablet 0.5 Mg PO PRN Q6HRS PRN 04/15/19 Rx Lantus Solostar (Insulin Glargine,Hum.rec.anlog) 100 Unit/1 Ml Insuln.pen 75 Unit SQ BID 12/28/18 Reported Ondansetron Odt (Ondansetron) 4 Mg Tab.rapdis 1 Tab PO PRN Q6-8HRS 10/23/18 Rx Tizanidine Hcl 4 Mg Tablet 1 Tab PO TID 10/13/18 Reported Nystop (Nystatin) 60 Gm Powder 1 Sally TP BID 30 09/02/18 Rx Duloxetine Hcl 60 Mg Capsule.dr 60 Mg PO BID 10/26/17 Reported Trulicity (Dulaglutide) 0.75 Mg/0.5 Ml Pen.injctr 0.75 Mg SUBCUT QFR 10/26/17 Reported Amlodipine Besylate 5 Mg Tablet 5 Mg PO DAILY 10/26/17 Reported Colace (Docusate Sodium) 100 Mg Capsule 100 Mg PO BID 03/24/17 Rx Senna-Time S Tablet (Sennosides/Docusate Sodium) 1 Each Tablet 1 Tab PO BID 03/24/17 Rx Ventolin Hfa Inhaler (Albuterol Sulfate) 18 Gm Hfa.aer.ad 2 Puff INH PRN Q4HRS PRN 03/19/17 Reported Duoneb 0.5-3(2.5) Mg/3 Ml (Albuterol/Ipratropium) 3 Ml Ampul.neb 3 Ml NEB PRN QID PRN 03/19/17 Reported Flonase Allergy Relief (Fluticasone Propionate) 9.9 Ml [place].susp 2 Sprays NS PRN PRN 03/19/17 Reported Clonidine Hcl 0.1 Mg Tablet 1 Tab PO PRN PRN 03/19/17 Reported When SBP >150 Eliquis (Apixaban) 5 Mg Tablet 5 Mg PO BID 03/19/17 Reported Lyrica (Pregabalin) 150 Mg Capsule 1 Cap PO BID 10/07/16 Reported Atorvastatin Calcium 20 Mg Tablet 2 Tab PO HS 10/06/16 Reported Nexium Capsule (Esomeprazole Magnesium) 40 Mg Capsule.dr 1 Cap PO BID 10/06/16 Reported Aspirin 81 Mg Tab.chew 1 Tab PO DAILY 10/06/16 Reported Nitrostat (Nitroglycerin) 0.4 Mg Tab.subl 0.4 Mg SL PRN Q5MIN PRN 30 05/02/16 Rx Levothyroxine Sodium 50 Mcg Tablet 1 Tab PO DAILY 10/22/15 Reported Comments CXR 04/21 CHF Impression . 1. [id number] hypercapnic respiratory failure. The etiology related to suspected right heart failure. Cannot exclude right lower lobe pneumonia. She also has component of metabolic acidosis combined with respiratory acidosis. 2. Underlying obesity hypoventilation syndrome/obstructive sleep apnea, on home BiPAP and oxygen at 3 L. 3. Abnormal chest x-ray consistent with mild congestive heart failure, probably diastolic as she has grade 2 diastolic dysfunction. 4. Lower extremity edema. 5. Chronic kidney disease with recent increase during her previous hospitalization. 6. Minimal history of tobacco use. Plan . 1. Continue with present assist control 2. Repeat ABG better, off sedation 3. We will start CPAP trial once more awake 4. empiric antibiotic. 5. procalcitonin level 0.24 6. Monitor renal function. 7. lasix prn 8. DVT prophylaxis. 9. Stress ulcer prophylaxis. 10. Discussed with RN, discussed with the patient's and we will follow along with you. ROBERT SANDOVAL MD Apr 22, 2019 11:25
[2019-04-22 12:49] LABS: BASE EXCESS ABG 5 mmol/L (-3-3); HCO3 ABG 31 mmol/L (21-28); PCO2 ABG 52 mmHg (35-46); PO2 ABG 69 mmHg (75-108); SAT O2 ABG 91 % (92-99)
[2019-04-22 12:55] LABS: FIO2 ABG 40
--- NOTE | 2019-04-22 13:54 | NUR ---
SS following for discharge planning. SS received notification that pt was from [facility], ; fax [phone]. SS contacted [facility] and confirmed that pt was a jail and rehabilitation resident from there facility and was able to return when medically stable for discharge pending insurance authorization. SS phoned and faxed clinical updates to [facility]. SS will continue to follow for discharge planning.
[2019-04-22] MEDS: FLUCONAZOLE 200MG/100ML PREMIX 100 ML IV SCH (15:00)
[2019-04-22 17:35] LABS: BASE EXCESS ABG 4 mmol/L (-3-3); HCO3 ABG 30 mmol/L (21-28); PCO2 ABG 52 mmHg (35-46); PO2 ABG 76 mmHg (75-108); SAT O2 ABG 93 % (92-99)
[2019-04-22 18:11] LABS: FIO2 ABG 40
--- NOTE | 2019-04-22 18:24 | NUR ---
Wound Care Wound care consult for BLE wounds. All open blisters on BLE have now resolved. Pt was seen by WC in clinic and on last admission. WC will sign off at this time, please reconsult if new wounds develop. Smith RN and family notified of POC.
[2019-04-22] MEDS: ATORVASTATIN CALCIUM 20 MG TABLET PO SCH (20:49)
[2019-04-23] VITALS (23 sets, daily range): BP systolic 132–208; BP diastolic 63–107
[2019-04-23] MEDS: PIPERACILLIN/TAZOBACTAM 2.25 GM in IV NORMAL SALINE 50ML 50 ML IV SCH ×2 (00:37→05:56)
[2019-04-23] MEDS: INSULIN LISPRO 300 UNITS/3 ML INSULN.PEN. SQ SCH ×8 (00:44→18:00)
[2019-04-23] MEDS: PROPOFOL 100 ML IV PRN (04:28)
[2019-04-23 05:04] LABS: HEMATOCRIT 26.5 % (36.0-47.0); HEMOGLOBIN 8.5 g/dL (12.0-15.5); RED BLOOD COUNT 3.11 x10^6/uL (3.50-5.40); RED CELL DISTRIBUTION WIDTH 17.7 % (11.5-14.5); WHITE BLOOD COUNT 16.5 x10^3/uL (4.0-11.0)
[2019-04-23] MEDS: LEVOTHYROXINE 50 MCG TABLET PO SCH (05:56)
--- NOTE | 2019-04-23 07:30 | PDOC ---
PROGRESS NOTES Subjective Subjective Patient off sedation and responsive, still on vent. Objective Objective Vital Signs Date Time Temp Pulse Resp B/P (MAP) Pulse Ox O2 Delivery O2 Flow Rate FiO2 04/23/19 06:04 65 13 163/82 (109) 97 Ventilator 04/23/19 04:00 98.1 98.1 04/22/19 18:38 3.0 Intake and Output 04/23/19 06:59 Intake Total 1510.3 ml Output Total 2625 ml Balance -1114.7 ml IV Total 530.3 ml Tube Feeding 980 ml Output Urine Total 2625 ml Gastric Drainage Total 0 ml # Bowel Movements 1 Physical Exam Abdomen: Normal bowel sounds, Soft, No tenderness Heart: Regular rate Extremities: Other (scant edema, mild chronic erythema) General: Alert, No acute distress Lungs: Clear to auscultation (anteriorly) Assessment Assessment Problems Medical Problems: (1) Acute respiratory failure with hypoxia and hypercapnia Status: Acute (2) [id number] kidney injury Status: Acute (3) Atrial fibrillation Status: Acute (4) CAD (coronary artery disease) Status: Chronic (5) CHF (congestive heart failure) Status: Acute (6) COPD exacerbation Status: Acute (7) DM2 (diabetes mellitus, type 2) Status: Chronic (8) Healthcare-associated pneumonia Status: Acute (9) HTN (hypertension) Status: Chronic (10) Obstructive sleep apnea Status: Chronic (11) UTI (urinary tract infection) Status: Acute Plan Plan of Care 1. Acute respiratory failure with healthcare-associated pneumonia - improving, continue weaning vent per Dr Sanches. On Zosyn, Zyvox and anti-fungal per ID. 2. JENNIFER with CKD III - mildly improved on lab yesterday, lab from today pending. Continue management per Renal. 3. possible UTI - culture pending. 4. CHF with diastolic dysfunction - stable, I<O yesterday without diuretic. 5. DM2 - well controlled with insulins. 6. PAF - remains in sinus. Rate controlled, continue B ryanne and Eliquis. Comment Review of Relevant I have reviewed the following items jim (where applicable) has been applied. Labs Laboratory Tests Test 04/21/19 08:00 04/21/19 09:13 04/21/19 12:10 04/21/19 12:15 O2 Saturation 85 % (92-99) 96 % (92-99) Arterial Blood pH 7.49 (7.35-7.45) 7.52 (7.35-7.45) Arterial Blood pCO2 at Patient Temp 40 mmHg (35-46) 32 mmHg (35-46) Arterial Blood pO2 at Patient Temp 50 mmHg (75-108) 89 mmHg (75-108) Arterial Blood HCO3 30 mmol/L (21-28) 26 mmol/L (21-28) Arterial Blood Base Excess 6 mmol/L (-3-3) 3 mmol/L (-3-3) FiO2 50 50 Glucose (Fingerstick) 134 mg/dL (70-99) 146 mg/dL (70-99) Test 04/21/19 17:29 04/21/19 21:11 04/22/19 00:11 04/22/19 06:00 Glucose (Fingerstick) 146 mg/dL (70-99) 136 mg/dL (70-99) 167 mg/dL (70-99) 160 mg/dL (70-99) Test 04/22/19 08:07 04/22/19 08:35 04/22/19 08:58 04/22/19 12:40 Glucose (Fingerstick) 138 mg/dL (70-99) 159 mg/dL (70-99) Sodium Level 144 mmol/L (136-145) Potassium Level 4.5 mmol/L (3.5-5.1) Chloride Level 105 mmol/L (98-107) Carbon Dioxide Level 29 mmol/L (21-32) Anion Gap 10 (6-14) Blood Urea Nitrogen 62 mg/dL (7-20) Creatinine 2.2 mg/dL (0.6-1.0) Estimated GFR (Cockcroft-Gault) 23.1 Glucose Level 172 mg/dL (70-99) Calcium Level 8.6 mg/dL (8.5-10.1) O2 Saturation 97 % (92-99) 91 % (92-99) Arterial Blood pH 7.49 (7.35-7.45) 7.39 (7.35-7.45) Arterial Blood pCO2 at Patient Temp 36 mmHg (35-46) 52 mmHg (35-46) Arterial Blood pO2 at Patient Temp 110 mmHg (75-108) 69 mmHg (75-108) Arterial Blood HCO3 27 mmol/L (21-28) 31 mmol/L (21-28) Arterial Blood Base Excess 3 mmol/L (-3-3) 5 mmol/L (-3-3) FiO2 45 40 Test 04/22/19 17:25 04/22/19 18:09 04/22/19 20:55 04/23/19 00:42 O2 Saturation 93 % (92-99) Arterial Blood pH 7.37 (7.35-7.45) Arterial Blood pCO2 at Patient Temp 52 mmHg (35-46) Arterial Blood pO2 at Patient Temp 76 mmHg (75-108) Arterial Blood HCO3 30 mmol/L (21-28) Arterial Blood Base Excess 4 mmol/L (-3-3) FiO2 40 Glucose (Fingerstick) 146 mg/dL (70-99) 83 mg/dL (70-99) 95 mg/dL (70-99) Test 04/23/19 04:20 04/23/19 05:59 White Blood Count 16.5 x10^3/uL (4.0-11.0) Red Blood Count 3.11 x10^6/uL (3.50-5.40) Hemoglobin 8.5 g/dL (12.0-15.5) Hematocrit 26.5 % (36.0-47.0) Mean Corpuscular Volume 85 fL (79-100) Mean Corpuscular Hemoglobin 27 pg (25-35) Mean Corpuscular Hemoglobin Concent 32 g/dL (31-37) Red Cell Distribution Width 17.7 % (11.5-14.5) Platelet Count 322 x10^3/uL (140-400) Glucose (Fingerstick) 76 mg/dL (70-99) Laboratory Tests Test 04/22/19 08:07 04/22/19 08:35 04/22/19 08:58 04/22/19 12:40 Glucose (Fingerstick) 138 mg/dL (70-99) 159 mg/dL (70-99) Sodium Level 144 mmol/L (136-145) Potassium Level 4.5 mmol/L (3.5-5.1) Chloride Level 105 mmol/L (98-107) Carbon Dioxide Level 29 mmol/L (21-32) Anion Gap 10 (6-14) Blood Urea Nitrogen 62 mg/dL (7-20) Creatinine 2.2 mg/dL (0.6-1.0) Estimated GFR (Cockcroft-Gault) 23.1 Glucose Level 172 mg/dL (70-99) Calcium Level 8.6 mg/dL (8.5-10.1) O2 Saturation 97 % (92-99) 91 % (92-99) Arterial Blood pH 7.49 (7.35-7.45) 7.39 (7.35-7.45) Arterial Blood pCO2 at Patient Temp 36 mmHg (35-46) 52 mmHg (35-46) Arterial Blood pO2 at Patient Temp 110 mmHg (75-108) 69 mmHg (75-108) Arterial Blood HCO3 27 mmol/L (21-28) 31 mmol/L (21-28) Arterial Blood Base Excess 3 mmol/L (-3-3) 5 mmol/L (-3-3) FiO2 45 40 Test 04/22/19 17:25 04/22/19 18:09 04/22/19 20:55 04/23/19 00:42 O2 Saturation 93 % (92-99) Arterial Blood pH 7.37 (7.35-7.45) Arterial Blood pCO2 at Patient Temp 52 mmHg (35-46) Arterial Blood pO2 at Patient Temp 76 mmHg (75-108) Arterial Blood HCO3 30 mmol/L (21-28) Arterial Blood Base Excess 4 mmol/L (-3-3) FiO2 40 Glucose (Fingerstick) 146 mg/dL (70-99) 83 mg/dL (70-99) 95 mg/dL (70-99) Test 04/23/19 04:20 04/23/19 05:59 White Blood Count 16.5 x10^3/uL (4.0-11.0) Red Blood Count 3.11 x10^6/uL (3.50-5.40) Hemoglobin 8.5 g/dL (12.0-15.5) Hematocrit 26.5 % (36.0-47.0) Mean Corpuscular Volume 85 fL (79-100) Mean Corpuscular Hemoglobin 27 pg (25-35) Mean Corpuscular Hemoglobin Concent 32 g/dL (31-37) Red Cell Distribution Width 17.7 % (11.5-14.5) Platelet Count 322 x10^3/uL (140-400) Glucose (Fingerstick) 76 mg/dL (70-99) Microbiology 7/28/19 - Final, Resulted 04/21/19 - Final, Resulted 04/21/19 - Final, Resulted 04/21/19 Gram Stain Evaluation - Final, Resulted 04/21/19 Sputum Culture, Resulted Pending Medications Current Medications Albuterol Sulfate (Ventolin Neb Soln) 2.5 mg STK-MED ONCE .ROUTE ; Start 04/19/19 at 20:52; Stop 04/19/19 at 20:53; Status DC Ipratropium [place] (Atrovent) 0.5 mg 1X ONCE NEB Last administered on 04/19/19at 21:00; Start 04/19/19 at 21:00; Stop 04/19/19 at 21:01; Status DC Methylprednisolone Sodium Succinate (SOLU-Medrol 125MG VIAL) 250 mg 1X ONCE IV Last administered on 04/19/19at 21:08; Start 04/19/19 at 21:00; Stop 04/19/19 at 21:01; Status DC Albuterol Sulfate (Ventolin Neb Soln) 10 mg 1X ONCE CONT NEB Last administered on 04/19/19at 21:00; Start 04/19/19 at 21:00; Stop 04/19/19 at 21:01; Status DC Morphine Sulfate (Morphine Sulfate) 2 mg PRN Q15MIN PRN IV/SQ PAIN GREATER THAN 3/10 Last administered on 04/19/19at 21:14; Start 04/19/19 at 21:00; Stop 04/20/19 at 14:38; Status DC Furosemide (Lasix) 80 mg 1X ONCE IVP Last administered on 04/19/19at 21:20; Start 04/19/19 at 21:30; Stop 04/19/19 at 21:31; Status DC Propofol 50 ml @ As Directed STK-MED ONCE IV ; Start 04/19/19 at 21:42; Stop 04/19/19 at 21:43; Status DC Propofol 100 ml @ 0 mls/hr CONT PRN IV SEE PROTOCOL Last administered on 04/23/19at 04:28; Start 04/19/19 at 22:00 Etomidate (Amidate) 20 mg STK-MED ONCE IV ; Start 04/19/19 at 22:13; Stop 04/19/19 at 22:14; Status DC Vecuronium [place] (Norcuron Bolus) 10 mg STK-MED ONCE IV ; Start 04/19/19 at 22:13; Stop 04/19/19 at 22:14; Status DC Midazolam HCl (Versed) 5 mg 1X ONCE NS ; Start 04/19/19 at 22:30; Stop 04/19/19 at 22:31; Status DC Propofol 50 ml @ 1.551 mls/ hr 1X ONCE IV Last administered on 04/19/19at 21:47; Start 04/19/19 at 21:40; Stop 04/21/19 at 05:54; Status DC Vecuronium [place] (Norcuron Bolus) 20 mg 1X ONCE IV Last administered on 04/19/19at 21:39; Start 04/19/19 at 21:40; Stop 04/19/19 at 22:39; Status DC Etomidate (Amidate) 30 mg 1X ONCE IV Last administered on 04/19/19at 21:38; Start 04/19/19 at 21:40; Stop 04/19/19 at 22:39; Status DC Midazolam HCl (Versed) 5 mg 1X ONCE IV Last administered on 04/19/19at 22:23; Start 04/19/19 at 22:45; Stop 04/19/19 at 22:46; Status DC Albuterol/ Ipratropium (Duoneb) 3 ml RTQID NEB Last administered on 04/22/19at 19:46; Start 04/20/19 at 08:00 Albuterol Sulfate (Ventolin Neb Soln) 2.5 mg PRN Q4HRS PRN NEB SHORTNESS OF BREATH Last administered on 04/20/19at 03:20; Start 04/20/19 at 02:00 Heparin Sodium (Porcine) (Heparin Sodium) 5,000 unit Q8HRS SQ ; Start 04/20/19 at 14:00; Stop 04/20/19 at 14:00; Status DC Piperacillin Sod/ Tazobactam Sod (Zosyn Per Pharmacy) 1 each PRN DAILY PRN MC SEE COMMENTS; Start 04/20/19 at 10:00 Sodium Bicarbonate (Sodium Bicarb Adult 8.4% Syr) 50 meq 1X ONCE IV Last administered on 04/20/19at 11:11; Start 04/20/19 at 11:00; Stop 04/20/19 at 11:11; Status DC Piperacillin Sod/ Tazobactam Sod 2.25 gm/Sodium Chloride 50 ml @ 100 mls/hr Q6HRS IV Last administered on 04/23/19at 05:56; Start 04/20/19 at 12:00 Insulin Human Lispro (HumaLOG) 0-9 UNITS TIDWMEALS SQ ; Start 04/20/19 at 12:00; Stop 04/20/19 at 12:00; Status DC Dextrose (Dextrose 50%-Water Syringe) 12.5 gm PRN Q15MIN PRN IV SEE COMMENTS; Start 04/20/19 at 11:00 Alprazolam (Xanax) 0.5 mg PRN Q6HRS PRN PO ANXIETY / AGITATION; Start 04/20/19 at 11:00 Amlodipine Besylate (Norvasc) 5 mg DAILY PO Last administered on 04/22/19at 09:24; Start 04/20/19 at 12:00 Apixaban (Eliquis) 5 mg BID PO Last administered on 04/22/19at 20:50; Start 04/20/19 at 12:00 Aspirin (Children'S Aspirin) 81 mg DAILY PO Last administered on 04/22/19at 08:05; Start 04/20/19 at 12:00 Atorvastatin Calcium (Lipitor) 40 mg HS PO Last administered on 04/22/19at 20:49; Start 04/20/19 at 21:00 Cilostazol (Pletal) 50 mg BID PO Last administered on 04/22/19at 20:47; Start 04/20/19 at 12:00 Acetaminophen/ Hydrocodone Bitart (Lortab 10/325) 1 tab PRN Q6HRS PRN PO SEVERE PAIN 7-10; Start 04/20/19 at 11:00 Insulin Glargine (Lantus) 75 units BID SQ Last administered on 04/22/19at 20:56; Start 04/20/19 at 12:00 Insulin Human Lispro (HumaLOG) 30 units TIDWMEALS SQ ; Start 04/20/19 at 12:00; Stop 04/20/19 at 12:00; Status DC Metoprolol Succinate (Toprol Xl) 100 mg DAILY PO ; Start 04/20/19 at 12:00; Status Cancel Nitroglycerin (Nitrostat) 0.4 mg PRN Q5MIN PRN SL CP RATING > 1/10; Start 04/20/19 at 11:00 Nystatin (Nystop) 1 sally BID TP Last administered on 04/22/19 21:05; Start 04/20/19 at 12:00 Duloxetine HCl (Cymbalta) 60 mg BID PO Last administered on 04/20/19at 21:16; Start 04/20/19 at 12:00; Stop 04/21/19 at 08:10; Status DC Pantoprazole Sodium (Protonix) 40 mg DAILYAC PO ; Start 04/20/19 at 12:00; Stop 04/20/19 at 12:00; Status DC Fluticasone Propionate (Flonase) 2 spray PRN DAILY PRN NS ALLERGIES Last administered on 04/21/19 17:30; Start 04/20/19 at 12:00 Hydralazine HCl (Apresoline) 50 mg TID PO Last administered on 04/22/19 20:50; Start 04/20/19 at 14:00 Levothyroxine Sodium (Synthroid) 50 mcg DAILY06 PO Last administered on 04/23/19 05:56; Start 04/20/19 at 12:00 Pregabalin (Lyrica) 150 mg BID PO Last administered on 04/22/19 22:05; Start 04/20/19 at 12:00 Tizanidine HCl (Zanaflex) 4 mg PRN Q8HRS PRN PO MUSCLE SPASMS; Start 04/20/19 at 11:00 Famotidine (Pepcid Vial) 20 mg DAILY IVP ; Start 04/21/19 at 09:00; Status Cancel Insulin Human Lispro (HumaLOG) 0-9 UNITS Q6HRS SQ Last administered on 04/22/19 06:02; Start 04/20/19 at 12:00 Insulin Human Lispro (HumaLOG) 30 units Q6HRS SQ Last administered on 04/23/19 06:02; Start 04/20/19 at 12:00 Pantoprazole Sodium (PROTONIX VIAL for IV PUSH) 40 mg DAILYAC IVP Last administered on 04/22/19 07:58; Start 04/21/19 at 07:30 Metoprolol Tartrate (Lopressor) 50 mg BID PO Last administered on 7/29/19at 20:51; Start 04/20/19 at 12:30 Acetaminophen (Tylenol) 650 mg PRN Q6HRS PRN PEG MILD PAIN / TEMP; Start 04/20/19 at 16:00 Venlafaxine HCl (Effexor) 50 mg TID NG Last administered on 04/22/19 20:47; Start 04/21/19 at 09:00 Furosemide (Lasix) 20 mg 1X ONCE IVP Last administered on 04/21/19 11:49; Start 04/21/19 at 11:45; Stop 04/21/19 at 11:48; Status DC Linezolid/Dextrose 300 ml @ 300 mls/hr Q12HR IV Last administered on 04/22/19 21:04; Start 04/21/19 at 14:00 Fluconazole/ Sodium Chloride 100 ml @ 100 mls/hr Q24H IV Last administered on 04/22/19 15:00; Start 04/21/19 at 14:00 Info (Anti-Coagulation Monitoring By Pharmacy) 1 each PRN DAILY PRN MC SEE COMMENTS Last administered on 04/22/19at 10:04; Start 04/22/19 at 08:15 Active Scripts Active Humalog (Insulin Lispro) 100 Unit/1 Ml Insuln.pen 30 Units SQ TIDWMEALS 30 Days Toprol Xl (Metoprolol Succinate) 50 Mg Tab.er.24h 100 Mg PO DAILY Hydralazine Hcl 25 Mg Tablet 50 Mg PO TID Cilostazol 50 Mg Tablet 50 Mg PO BID Xanax (Alprazolam) 0.5 Mg Tablet 0.5 Mg PO PRN Q6HRS PRN Ondansetron Odt (Ondansetron) 4 Mg Tab.rapdis 1 Tab PO PRN Q6-8HRS Nystop (Nystatin) 60 Gm Powder 1 Sally TP BID 30 Days Colace (Docusate Sodium) 100 Mg Capsule 100 Mg PO BID Senna-Time S Tablet (Sennosides/Docusate Sodium) 1 Each Tablet 1 Tab PO BID Nitrostat (Nitroglycerin) 0.4 Mg Tab.subl 0.4 Mg SL PRN Q5MIN PRN 30 Days Reported Lantus Solostar (Insulin Glargine,Hum.rec.anlog) 100 Unit/1 Ml Insuln.pen 75 Unit SQ BID Tizanidine Hcl 4 Mg Tablet 1 Tab PO TID Duloxetine Hcl 60 Mg Capsule.dr 60 Mg PO BID Trulicity (Dulaglutide) 0.75 Mg/0.5 Ml Pen.injctr 0.75 Mg SUBCUT QFR Amlodipine Besylate 5 Mg Tablet 5 Mg PO DAILY Ventolin Hfa Inhaler (Albuterol Sulfate) 18 Gm Hfa.aer.ad 2 Puff INH PRN Q4HRS PRN Duoneb 0.5-3(2.5) Mg/3 Ml (Albuterol/Ipratropium) 3 Ml Ampul.neb 3 Ml NEB PRN QID PRN Flonase Allergy Relief (Fluticasone Propionate) 9.9 Ml [place].susp 2 Sprays NS PRN PRN Clonidine Hcl 0.1 Mg Tablet 1 Tab PO PRN PRN When SBP >150 Eliquis (Apixaban) 5 Mg Tablet 5 Mg PO BID Lyrica (Pregabalin) 150 Mg Capsule 1 Cap PO BID Atorvastatin Calcium 20 Mg Tablet 2 Tab PO HS Nexium Capsule (Esomeprazole Magnesium) 40 Mg Capsule.dr 1 Cap PO BID Aspirin 81 Mg Tab.chew 1 Tab PO DAILY Levothyroxine Sodium 50 Mcg Tablet 1 Tab PO DAILY Vitals/I & O Vital Sign - Last 24 Hours 04/22/19 04/22/19 04/22/19 04/22/19 07:45 08:00 08:00 09:00 Temp 98.7 98.7 Pulse 69 68 Resp 18 18 B/P (MAP) 110/46 (67) 128/61 (83) Pulse Ox 99 99 99 O2 Delivery Ventilator Mechanical Ventilator Ventilator Ventilator 04/22/19 04/22/19 04/22/19 04/22/19 09:24 09:24 09:24 09:28 Pulse 68 68 68 B/P (MAP) 128/61 128/61 128/61 Pulse Ox 98 O2 Delivery Ventilator 04/22/19 04/22/19 04/22/19 04/22/19 09:35 10:00 11:00 11:21 Pulse 74 75 Resp 14 14 B/P (MAP) 138/59 (85) 139/62 (87) Pulse Ox 94 94 93 O2 Delivery Ventilator Ventilator Ventilator Ventilator 04/22/19 04/22/19 04/22/19 04/22/19 12:00 12:00 12:07 12:15 Temp 98.9 98.9 Pulse 81 Resp 17 B/P (MAP) 146/64 (91) Pulse Ox 91 O2 Delivery Ventilator Mechanical Ventilator Ventilator Ventilator 04/22/19 04/22/19 04/22/19 04/22/19 12:45 13:00 13:20 14:00 Pulse 77 78 Resp 14 14 B/P (MAP) 156/64 (94) 155/61 (92) Pulse Ox 94 93 95 O2 Delivery Ventilator Ventilator Ventilator Ventilator 04/22/19 04/22/19 04/22/19 04/22/19 15:00 15:00 15:54 16:00 Temp 98.8 98.8 Pulse 76 81 84 Resp 18 18 B/P (MAP) 155/61 175/72 (106) 176/77 (110) Pulse Ox 95 94 92 O2 Delivery Ventilator Ventilator Ventilator 04/22/19 04/22/19 04/22/19 04/22/19 16:00 17:00 17:30 18:38 Temp 98.8 98.8 Pulse 84 84 Resp 18 B/P (MAP) 171/85 (113) 171/85 (113) Pulse Ox 95 95 O2 Delivery Mechanical Ventilator Ventilator Ventilator O2 Flow Rate 3.0 04/22/19 04/22/19 04/22/19 04/22/19 19:00 19:46 20:00 20:00 Pulse 84 86 Resp 16 16 B/P (MAP) 168/72 (104) 168/54 (92) Pulse Ox 100 96 96 O2 Delivery Ventilator Ventilator Ventilator Mechanical Ventilator 04/22/19 04/22/19 04/22/19 04/22/19 20:50 20:51 21:00 22:00 Pulse 77 79 74 76 Resp 13 13 B/P (MAP) 163/81 163/81 165/76 (105) 168/86 (113) Pulse Ox 96 96 O2 Delivery Ventilator Ventilator 04/22/19 04/22/19 04/22/19 04/22/19 22:15 23:00 23:52 23:59 Pulse 68 Resp 13 B/P (MAP) 142/67 (92) Pulse Ox 94 98 94 O2 Delivery Ventilator Ventilator Ventilator Mechanical Ventilator 04/22/19 04/23/19 04/23/19 04/23/19 23:59 01:00 01:20 02:00 Temp 98.2 98.2 Pulse 66 68 65 Resp 13 13 13 B/P (MAP) 142/74 (96) 142/67 (92) 132/69 (90) Pulse Ox 98 98 97 98 O2 Delivery Ventilator Ventilator Ventilator Ventilator 04/23/19 04/23/19 04/23/19 04/23/19 03:00 03:30 04:00 04:00 Temp 98.1 98.1 Pulse 65 63 Resp 13 13 B/P (MAP) 132/69 (90) 145/69 (94) Pulse Ox 98 95 98 O2 Delivery Ventilator Ventilator Ventilator Mechanical Ventilator 04/23/19 04/23/19 04/23/19 05:00 05:50 06:04 Pulse 65 65 Resp 13 13 B/P (MAP) 156/81 (106) 163/82 (109) Pulse Ox 97 95 97 O2 Delivery Ventilator Ventilator Ventilator Intake and Output 04/22/19 04/22/19 04/23/19 14:59 22:59 06:59 Intake Total 329.3 ml 200 ml 981 ml Output Total 1100 ml 925 ml 600 ml Balance -770.7 ml -725 ml 381 ml JUSTIN TAVAREZ MD Apr 23, 2019 07:29
--- NOTE | 2019-04-23 07:48 | PDOC ---
Infectious Disease Note Subjective: Subjective pt is intubated, off sedation opens eyes on TF D/W RN tolerating it well no fevers, nausea, vomiting has loose bm ROS: ROS unable to obtain due to above d/w rn no fevers, has loose bm Vital Signs: Vital Signs Vital Signs Date Time Temp Pulse Resp B/P (MAP) Pulse Ox O2 Delivery O2 Flow Rate FiO2 04/23/19 06:04 65 13 163/82 (109) 97 Ventilator 04/23/19 04:00 98.1 98.1 04/22/19 18:38 3.0 Physical Exam: PHYSICAL EXAM GEN intubated,opens eyes, comfortable HEENT: Both pupils are round and reacting. No conjunctival lesion, no lesion in the mouth.,NGT + NECK: Supple, LUNGS: dec bs at bases HEART: S1, S2 regular. ABDOMEN: Obese, Soft, nontender, no organomegaly. EXTREMITIES: Bilateral lower extremity edema present, erythema present and superficial ulceration of both the legs present. The patient does have a yeast infection in the groin. NEUROLOGIC: The patient was moving all the extremities before intubation and sedation. Medications: Inpatient Meds: Current Medications Medications (Trade) Dose Ordered Sig/Jesus Manuel Start Time Stop Time Status Last Admin Dose Admin Acetaminophen (Tylenol) 650 mg PRN Q6HRS PRN 04/20/19 16:00 Acetaminophen/ Hydrocodone Bitart (Lortab 10/325) 1 tab PRN Q6HRS PRN 04/20/19 11:00 Albuterol Sulfate (Ventolin Neb Soln) 2.5 mg PRN Q4HRS PRN 04/20/19 02:00 04/20/19 03:20 2.5 MG Albuterol/ Ipratropium (Duoneb) 3 ml RTQID 04/20/19 08:00 04/22/19 19:46 3 ML Alprazolam (Xanax) 0.5 mg PRN Q6HRS PRN 04/20/19 11:00 Amlodipine Besylate (Norvasc) 5 mg DAILY 04/20/19 12:00 04/22/19 09:24 5 MG Apixaban (Eliquis) 5 mg BID 04/20/19 12:00 04/22/19 20:50 5 MG Aspirin (Children'S Aspirin) 81 mg DAILY 04/20/19 12:00 04/22/19 08:05 81 MG Atorvastatin Calcium (Lipitor) 40 mg HS 04/20/19 21:00 04/22/19 20:49 40 MG Cilostazol (Pletal) 50 mg BID 04/20/19 12:00 04/22/19 20:47 50 MG Dextrose (Dextrose 50%-Water Syringe) 12.5 gm PRN Q15MIN PRN 04/20/19 11:00 Duloxetine HCl (Cymbalta) 60 mg BID 04/20/19 12:00 04/21/19 08:10 DC 04/20/19 21:16 60 MG Etomidate (Amidate) 30 mg 1X ONCE 04/19/19 21:40 04/19/19 22:39 DC 04/19/19 21:38 30 MG Famotidine (Pepcid Vial) 20 mg DAILY 04/21/19 09:00 Cancel Fluconazole/ Sodium Chloride 100 ml @ 100 mls/hr Q24H 04/21/19 14:00 04/22/19 15:00 100 MLS/HR Fluticasone Propionate (Flonase) 2 spray PRN DAILY PRN 04/20/19 12:00 04/21/19 17:30 2 SPRAY Furosemide (Lasix) 20 mg 1X ONCE 04/21/19 11:45 04/21/19 11:48 DC 04/21/19 11:49 20 MG Heparin Sodium (Porcine) (Heparin Sodium) 5,000 unit Q8HRS 04/20/19 14:00 04/20/19 14:00 DC Hydralazine HCl (Apresoline) 50 mg TID 04/20/19 14:00 04/22/19 20:50 50 MG Info (Anti-Coagulation Monitoring By Pharmacy) 1 each PRN DAILY PRN 04/22/19 08:15 04/22/19 10:04 1 EACH Insulin Glargine (Lantus) 75 units BID 04/20/19 12:00 04/22/19 20:56 75 UNITS Insulin Human Lispro (HumaLOG) 30 units Q6HRS 04/20/19 12:00 04/23/19 06:02 30 UNITS Ipratropium [place] (Atrovent) 0.5 mg 1X ONCE 04/19/19 21:00 04/19/19 21:01 DC 04/19/19 21:00 0.5 MG Levothyroxine Sodium (Synthroid) 50 mcg DAILY06 04/20/19 12:00 04/23/19 05:56 50 MCG Linezolid/Dextrose 300 ml @ 300 mls/hr Q12HR 04/21/19 14:00 04/22/19 21:04 300 MLS/HR Methylprednisolone Sodium Succinate (SOLU-Medrol 125MG VIAL) 250 mg 1X ONCE 04/19/19 21:00 04/19/19 21:01 DC 04/19/19 21:08 250 MG Metoprolol Succinate (Toprol Xl) 100 mg DAILY 04/20/19 12:00 Cancel Metoprolol Tartrate (Lopressor) 50 mg BID 04/20/19 12:30 04/22/19 20:51 50 MG Midazolam HCl (Versed) 5 mg 1X ONCE 04/19/19 22:45 04/19/19 22:46 DC 04/19/19 22:23 5 MG Morphine Sulfate (Morphine Sulfate) 2 mg PRN Q15MIN PRN 04/19/19 21:00 04/20/19 14:38 DC 04/19/19 21:14 2 MG Nitroglycerin (Nitrostat) 0.4 mg PRN Q5MIN PRN 04/20/19 11:00 Nystatin (Nystop) 1 eric BID 04/20/19 12:00 04/22/19 21:05 1 ERIC Pantoprazole Sodium (PROTONIX VIAL for IV PUSH) 40 mg DAILYAC 04/21/19 07:30 04/22/19 07:58 40 MG Pantoprazole Sodium (Protonix) 40 mg DAILYAC 04/20/19 12:00 04/20/19 12:00 DC Piperacillin Sod/ Tazobactam Sod (Zosyn Per Pharmacy) 1 each PRN DAILY PRN 04/20/19 10:00 Piperacillin Sod/ Tazobactam Sod 2.25 gm/Sodium Chloride 50 ml @ 100 mls/hr Q6HRS 04/20/19 12:00 04/23/19 05:56 100 MLS/HR Pregabalin (Lyrica) 150 mg BID 04/20/19 12:00 04/22/19 22:05 150 MG Propofol 50 ml @ 1.551 mls/ hr 1X ONCE 04/19/19 21:40 04/21/19 05:54 DC 04/19/19 21:47 3.103 MLS/HR Sodium Bicarbonate (Sodium Bicarb Adult 8.4% Syr) 50 meq 1X ONCE 04/20/19 11:00 04/20/19 11:11 DC 04/20/19 11:11 50 MEQ Tizanidine HCl (Zanaflex) 4 mg PRN Q8HRS PRN 04/20/19 11:00 Vecuronium [place] (Norcuron Bolus) 20 mg 1X ONCE 04/19/19 21:40 04/19/19 22:39 DC 04/19/19 21:39 20 MG Venlafaxine HCl (Effexor) 50 mg TID 04/21/19 09:00 04/22/19 20:47 50 MG Labs: Lab Laboratory Tests Test 04/22/19 08:07 04/22/19 08:35 04/22/19 08:58 04/22/19 12:40 Glucose (Fingerstick) 138 mg/dL (70-99) 159 mg/dL (70-99) Sodium Level 144 mmol/L (136-145) Potassium Level 4.5 mmol/L (3.5-5.1) Chloride Level 105 mmol/L (98-107) Carbon Dioxide Level 29 mmol/L (21-32) Anion Gap 10 (6-14) Blood Urea Nitrogen 62 mg/dL (7-20) Creatinine 2.2 mg/dL (0.6-1.0) Estimated GFR (Cockcroft-Gault) 23.1 Glucose Level 172 mg/dL (70-99) Calcium Level 8.6 mg/dL (8.5-10.1) O2 Saturation 97 % (92-99) 91 % (92-99) Arterial Blood pH 7.49 (7.35-7.45) 7.39 (7.35-7.45) Arterial Blood pCO2 at Patient Temp 36 mmHg (35-46) 52 mmHg (35-46) Arterial Blood pO2 at Patient Temp 110 mmHg (75-108) 69 mmHg (75-108) Arterial Blood HCO3 27 mmol/L (21-28) 31 mmol/L (21-28) Arterial Blood Base Excess 3 mmol/L (-3-3) 5 mmol/L (-3-3) FiO2 45 40 Test 04/22/19 17:25 04/22/19 18:09 04/22/19 20:55 04/23/19 00:42 O2 Saturation 93 % (92-99) Arterial Blood pH 7.37 (7.35-7.45) Arterial Blood pCO2 at Patient Temp 52 mmHg (35-46) Arterial Blood pO2 at Patient Temp 76 mmHg (75-108) Arterial Blood HCO3 30 mmol/L (21-28) Arterial Blood Base Excess 4 mmol/L (-3-3) FiO2 40 Glucose (Fingerstick) 146 mg/dL (70-99) 83 mg/dL (70-99) 95 mg/dL (70-99) Test 04/23/19 04:20 04/23/19 05:59 White Blood Count 16.5 x10^3/uL (4.0-11.0) Red Blood Count 3.11 x10^6/uL (3.50-5.40) Hemoglobin 8.5 g/dL (12.0-15.5) Hematocrit 26.5 % (36.0-47.0) Mean Corpuscular Volume 85 fL (79-100) Mean Corpuscular Hemoglobin 27 pg (25-35) Mean Corpuscular Hemoglobin Concent 32 g/dL (31-37) Red Cell Distribution Width 17.7 % (11.5-14.5) Platelet Count 322 x10^3/uL (140-400) Glucose (Fingerstick) 76 mg/dL (70-99) Micro cult reviewed Objective: Assessment: 1. Healthcare facility associated pneumonia may have been possible aspiration. 2. Respiratory failure. 3. Renal insufficiency. 4. Urinary tract infection. 5. Diabetes. 6. Hypertension. 7. Chronic obstructive pulmonary disease. 8. Congestive heart failure. 9. Coronary artery disease. 10. Atrial fibrillation. 11. Leucocytosis could be pulm or from diarrhea 12.Loose bm Plan: Plan of Care DC Zosyn Start Merrem continue Zyvox and Diflucan. cultures neg so far Check c diff PCR f/u c/s and labs Overall, long-term prognosis is poor. D/W LAVELL JAMES MD Apr 23, 2019 07:48
[2019-04-23] MEDS: IPRATRPIUM/ALBUTEROL 0.5/2.5MG 3 ML NEBU. NEB SCH ×4 (08:04→19:20)
[2019-04-23] MEDS: PANTOPRAZOLE IV PUSH 40 MG VIAL. IVP SCH (08:06)
[2019-04-23] MEDS: VENLAFAXINE 50 MG TABLET. NG SCH ×3 (08:06→20:58)
[2019-04-23] MEDS: ASPIRIN CHEWABLE 81 MG TABLET. PO SCH (08:06)
[2019-04-23] MEDS: CILOSTAZOL 50 MG TABLET. PO SCH ×2 (08:06→20:59)
[2019-04-23] MEDS: APIXABAN 5 MG TABLET. PO SCH ×2 (08:06→20:58)
[2019-04-23] MEDS: amLODIPine BESYLATE 5 MG TABLET PO SCH (08:07)
[2019-04-23] MEDS: METOPROLOL TART IMMED RELEASE 25 MG TABLET. PO SCH ×2 (08:07→20:59)
[2019-04-23] MEDS: NYSTATIN TOPICAL POWDER 15GM BOTTLE. TP SCH ×2 (08:08→21:16)
[2019-04-23] MEDS: INSULIN GLARGINE 300 UNITS/3 ML INSULN.PEN. SQ SCH ×2 (08:31→20:59)
[2019-04-23] MEDS: ANTI-COAG MONITOR BY PHARMACY. MC PRN (08:51)
[2019-04-23 09:23] LABS: BASE EXCESS ABG 4 mmol/L (-3-3); HCO3 ABG 30 mmol/L (21-28); PCO2 ABG 52 mmHg (35-46); PO2 ABG 70 mmHg (75-108); SAT O2 ABG 92 % (92-99)
[2019-04-23 09:26] LABS: CALCIUM 8.9 mg/dL (8.5-10.1); CREATININE 1.6 mg/dL (0.6-1.0); GFR 33.3; POTASSIUM 4.2 mmol/L (3.5-5.1)
--- NOTE | 2019-04-23 09:42 | PDOC ---
SUBJECTIVE ROS Stable, awake , On MV, OBJECTIVE Vital Signs Vital Signs Date Time Temp Pulse Resp B/P (MAP) Pulse Ox O2 Delivery O2 Flow Rate FiO2 04/23/19 09:00 74 14 197/104 (135) 94 Ventilator 04/23/19 04:00 98.1 98.1 04/22/19 18:38 3.0 I & 0 Intake and Output 04/23/19 06:59 Intake Total 1510.3 ml Output Total 2625 ml Balance -1114.7 ml IV Total 530.3 ml Tube Feeding 980 ml Output Urine Total 2625 ml Gastric Drainage Total 0 ml # Bowel Movements 1 PHYSICAL EXAM Physical Exam GENERAL: intubated , awake HEENT: Sclerae nonicteric. NECK: Supple. LUNGS: Diminished breath sounds. CARDIOVASCULAR: Regular rate and rhythm. ABDOMEN: Soft, nontender EXTREMITIES:No pitting edema, changes of CVI+ Mcgee + DIAGNOSIS/ASSESSMENT Assessment & Plan JENNIFER - ATN renal function improving Normal US 04/02/19 E-Lytes stable , Supportive care, Monitor Hypernatremia- Mild Monitor Recurrent UTI- UA shows WBC-tntc ID following CKD stage 3- Follows with Dr. Santana,Last office visit 01/2018 Cr ranging from 1.0- 1.5 since 2017 Labs at [facility] Cr 1.4-2.1 Anemia- Hgb stable Acute hypercapnic respiratory failure: Intubated and On MV Plan to extubate today Healthcare facility associated pneumonia may have been possible aspiration. CHF with diastolic dysfunction and CAD - preserved ejection fraction on a recent echocardiogram. HTN - BP high , antihypertensives Paroxysmal atrial fibrillation: Presently in sinus rhythm. On Eliquis and her beta-ryanne. Diabetes mellitus type 2, insulin dependent: Peripheral artery disease: diagnosed on her last admission,medical management was advised Chr lymphedema COMMENT/RELEVANT DATA Meds Current Medications Medications (Trade) Dose Ordered Sig/Jesus Manuel Start Time Stop Time Status Last Admin Dose Admin Acetaminophen (Tylenol) 650 mg PRN Q6HRS PRN 04/20/19 16:00 Acetaminophen/ Hydrocodone Bitart (Lortab 10/325) 1 tab PRN Q6HRS PRN 04/20/19 11:00 Albuterol Sulfate (Ventolin Neb Soln) 2.5 mg PRN Q4HRS PRN 04/20/19 02:00 04/20/19 03:20 2.5 MG Albuterol/ Ipratropium (Duoneb) 3 ml RTQID 04/20/19 08:00 04/23/19 08:04 3 ML Alprazolam (Xanax) 0.5 mg PRN Q6HRS PRN 04/20/19 11:00 Amlodipine Besylate (Norvasc) 5 mg DAILY 04/20/19 12:00 04/23/19 08:07 5 MG Apixaban (Eliquis) 5 mg BID 04/20/19 12:00 04/23/19 08:06 5 MG Aspirin (Children'S Aspirin) 81 mg DAILY 04/20/19 12:00 04/23/19 08:06 81 MG Atorvastatin Calcium (Lipitor) 40 mg HS 04/20/19 21:00 04/22/19 20:49 40 MG Cilostazol (Pletal) 50 mg BID 04/20/19 12:00 04/23/19 08:06 50 MG Dextrose (Dextrose 50%-Water Syringe) 12.5 gm PRN Q15MIN PRN 04/20/19 11:00 Duloxetine HCl (Cymbalta) 60 mg BID 04/20/19 12:00 04/21/19 08:10 DC 04/20/19 21:16 60 MG Etomidate (Amidate) 30 mg 1X ONCE 04/19/19 21:40 04/19/19 22:39 DC 04/19/19 21:38 30 MG Famotidine (Pepcid Vial) 20 mg DAILY 04/21/19 09:00 Cancel Fluconazole/ Sodium Chloride 100 ml @ 100 mls/hr Q24H 04/21/19 14:00 04/22/19 15:00 100 MLS/HR Fluticasone Propionate (Flonase) 2 spray PRN DAILY PRN 04/20/19 12:00 04/21/19 17:30 2 SPRAY Furosemide (Lasix) 20 mg 1X ONCE 04/21/19 11:45 04/21/19 11:48 DC 04/21/19 11:49 20 MG Heparin Sodium (Porcine) (Heparin Sodium) 5,000 unit Q8HRS 04/20/19 14:00 04/20/19 14:00 DC Hydralazine HCl (Apresoline) 50 mg TID 04/20/19 14:00 04/23/19 08:06 50 MG Info (Anti-Coagulation Monitoring By Pharmacy) 1 each PRN DAILY PRN 04/22/19 08:15 04/23/19 08:51 1 EACH Insulin Glargine (Lantus) 75 units BID 04/20/19 12:00 04/23/19 08:31 75 UNITS Insulin Human Lispro (HumaLOG) 30 units Q6HRS 04/20/19 12:00 04/23/19 06:02 30 UNITS Ipratropium Rembrandt (Atrovent) 0.5 mg 1X ONCE 04/19/19 21:00 04/19/19 21:01 DC 04/19/19 21:00 0.5 MG Levothyroxine Sodium (Synthroid) 50 mcg DAILY06 04/20/19 12:00 04/23/19 05:56 50 MCG Linezolid/Dextrose 300 ml @ 300 mls/hr Q12HR 04/21/19 14:00 04/23/19 08:11 300 MLS/HR Meropenem 500 mg/ Sodium Chloride 50 ml @ 100 mls/hr Q8HRS 04/23/19 14:00 Methylprednisolone Sodium Succinate (SOLU-Medrol 125MG VIAL) 250 mg 1X ONCE 04/19/19 21:00 04/19/19 21:01 DC 04/19/19 21:08 250 MG Metoprolol Succinate (Toprol Xl) 100 mg DAILY 04/20/19 12:00 Cancel Metoprolol Tartrate (Lopressor) 50 mg BID 04/20/19 12:30 04/23/19 08:07 50 MG Midazolam HCl (Versed) 5 mg 1X ONCE 04/19/19 22:45 04/19/19 22:46 DC 04/19/19 22:23 5 MG Morphine Sulfate (Morphine Sulfate) 2 mg PRN Q15MIN PRN 04/19/19 21:00 04/20/19 14:38 DC 04/19/19 21:14 2 MG Nitroglycerin (Nitrostat) 0.4 mg PRN Q5MIN PRN 04/20/19 11:00 Nystatin (Nystop) 1 eric BID 04/20/19 12:00 04/23/19 08:08 1 ERIC Pantoprazole Sodium (PROTONIX VIAL for IV PUSH) 40 mg DAILYAC 04/21/19 07:30 04/23/19 08:06 40 MG Pantoprazole Sodium (Protonix) 40 mg DAILYAC 04/20/19 12:00 04/20/19 12:00 DC Piperacillin Sod/ Tazobactam Sod (Zosyn Per Pharmacy) 1 each PRN DAILY PRN 04/20/19 10:00 04/23/19 09:00 DC Piperacillin Sod/ Tazobactam Sod 2.25 gm/Sodium Chloride 50 ml @ 100 mls/hr Q6HRS 04/20/19 12:00 04/23/19 07:46 DC 04/23/19 05:56 100 MLS/HR Pregabalin (Lyrica) 150 mg BID 04/20/19 12:00 04/22/19 22:05 150 MG Propofol 50 ml @ 1.551 mls/ hr 1X ONCE 04/19/19 21:40 04/21/19 05:54 DC 04/19/19 21:47 3.103 MLS/HR Sodium Bicarbonate (Sodium Bicarb Adult 8.4% Syr) 50 meq 1X ONCE 04/20/19 11:00 04/20/19 11:11 DC 04/20/19 11:11 50 MEQ Tizanidine HCl (Zanaflex) 4 mg PRN Q8HRS PRN 04/20/19 11:00 Vecuronium Rembrandt (Norcuron Bolus) 20 mg 1X ONCE 04/19/19 21:40 04/19/19 22:39 DC 04/19/19 21:39 20 MG Venlafaxine HCl (Effexor) 50 mg TID 04/21/19 09:00 04/23/19 08:06 50 MG Lab Laboratory Tests Test 04/22/19 12:40 04/22/19 17:25 04/22/19 18:09 04/22/19 20:55 O2 Saturation 91 % (92-99) 93 % (92-99) Arterial Blood pH 7.39 (7.35-7.45) 7.37 (7.35-7.45) Arterial Blood pCO2 at Patient Temp 52 mmHg (35-46) 52 mmHg (35-46) Arterial Blood pO2 at Patient Temp 69 mmHg (75-108) 76 mmHg (75-108) Arterial Blood HCO3 31 mmol/L (21-28) 30 mmol/L (21-28) Arterial Blood Base Excess 5 mmol/L (-3-3) 4 mmol/L (-3-3) FiO2 40 40 Glucose (Fingerstick) 159 mg/dL (70-99) 146 mg/dL (70-99) 83 mg/dL (70-99) Test 04/23/19 00:42 04/23/19 04:20 04/23/19 05:59 04/23/19 08:13 Glucose (Fingerstick) 95 mg/dL (70-99) 76 mg/dL (70-99) 96 mg/dL (70-99) White Blood Count 16.5 x10^3/uL (4.0-11.0) Red Blood Count 3.11 x10^6/uL (3.50-5.40) Hemoglobin 8.5 g/dL (12.0-15.5) Hematocrit 26.5 % (36.0-47.0) Mean Corpuscular Volume 85 fL (79-100) Mean Corpuscular Hemoglobin 27 pg (25-35) Mean Corpuscular Hemoglobin Concent 32 g/dL (31-37) Red Cell Distribution Width 17.7 % (11.5-14.5) Platelet Count 322 x10^3/uL (140-400) Test 04/23/19 08:25 Sodium Level 146 mmol/L (136-145) Potassium Level 4.2 mmol/L (3.5-5.1) Chloride Level 106 mmol/L (98-107) Carbon Dioxide Level 32 mmol/L (21-32) Anion Gap 8 (6-14) Blood Urea Nitrogen 44 mg/dL (7-20) Creatinine 1.6 mg/dL (0.6-1.0) Estimated GFR (Cockcroft-Gault) 33.3 Glucose Level 102 mg/dL (70-99) Calcium Level 8.9 mg/dL (8.5-10.1) Results All relevant outside records, renal labs, imaging studies, telemetry/EKG's were reviewed. VEERTON HE MD Apr 23, 2019 09:42
[2019-04-23 10:21] LABS: FIO2 ABG 40
--- NOTE | 2019-04-23 10:53 | PDOC ---
PULMONARY PROGRESS NOTES Subjective remains intubated/ fully awake doing better on CPAP trial Vitals Vital Signs Date Time Temp Pulse Resp B/P (MAP) Pulse Ox O2 Delivery O2 Flow Rate FiO2 04/23/19 09:51 95 Ventilator 04/23/19 09:00 74 14 197/104 (135) 04/23/19 04:00 98.1 98.1 04/22/19 18:38 3.0 General: Alert, No acute distress Lungs: Other (decrease bs) Cardiovascular: S1, S2 Abdomen: Soft, Non-tender, Other Extremities: Other (1+edema) Labs Laboratory Tests Test 04/21/19 12:10 04/21/19 12:15 04/21/19 17:29 04/21/19 21:11 Glucose (Fingerstick) 146 mg/dL (70-99) 146 mg/dL (70-99) 136 mg/dL (70-99) O2 Saturation 96 % (92-99) Arterial Blood pH 7.52 (7.35-7.45) Arterial Blood pCO2 at Patient Temp 32 mmHg (35-46) Arterial Blood pO2 at Patient Temp 89 mmHg (75-108) Arterial Blood HCO3 26 mmol/L (21-28) Arterial Blood Base Excess 3 mmol/L (-3-3) FiO2 50 Test 04/22/19 00:11 04/22/19 06:00 04/22/19 08:07 04/22/19 08:35 Glucose (Fingerstick) 167 mg/dL (70-99) 160 mg/dL (70-99) 138 mg/dL (70-99) Sodium Level 144 mmol/L (136-145) Potassium Level 4.5 mmol/L (3.5-5.1) Chloride Level 105 mmol/L (98-107) Carbon Dioxide Level 29 mmol/L (21-32) Anion Gap 10 (6-14) Blood Urea Nitrogen 62 mg/dL (7-20) Creatinine 2.2 mg/dL (0.6-1.0) Estimated GFR (Cockcroft-Gault) 23.1 Glucose Level 172 mg/dL (70-99) Calcium Level 8.6 mg/dL (8.5-10.1) Test 04/22/19 08:58 04/22/19 12:40 04/22/19 17:25 04/22/19 18:09 O2 Saturation 97 % (92-99) 91 % (92-99) 93 % (92-99) Arterial Blood pH 7.49 (7.35-7.45) 7.39 (7.35-7.45) 7.37 (7.35-7.45) Arterial Blood pCO2 at Patient Temp 36 mmHg (35-46) 52 mmHg (35-46) 52 mmHg (35-46) Arterial Blood pO2 at Patient Temp 110 mmHg (75-108) 69 mmHg (75-108) 76 mmHg (75-108) Arterial Blood HCO3 27 mmol/L (21-28) 31 mmol/L (21-28) 30 mmol/L (21-28) Arterial Blood Base Excess 3 mmol/L (-3-3) 5 mmol/L (-3-3) 4 mmol/L (-3-3) FiO2 45 40 40 Glucose (Fingerstick) 159 mg/dL (70-99) 146 mg/dL (70-99) Test 04/22/19 20:55 04/23/19 00:42 04/23/19 04:20 04/23/19 05:59 Glucose (Fingerstick) 83 mg/dL (70-99) 95 mg/dL (70-99) 76 mg/dL (70-99) White Blood Count 16.5 x10^3/uL (4.0-11.0) Red Blood Count 3.11 x10^6/uL (3.50-5.40) Hemoglobin 8.5 g/dL (12.0-15.5) Hematocrit 26.5 % (36.0-47.0) Mean Corpuscular Volume 85 fL (79-100) Mean Corpuscular Hemoglobin 27 pg (25-35) Mean Corpuscular Hemoglobin Concent 32 g/dL (31-37) Red Cell Distribution Width 17.7 % (11.5-14.5) Platelet Count 322 x10^3/uL (140-400) Test 04/23/19 08:13 04/23/19 08:25 04/23/19 09:00 Glucose (Fingerstick) 96 mg/dL (70-99) Sodium Level 146 mmol/L (136-145) Potassium Level 4.2 mmol/L (3.5-5.1) Chloride Level 106 mmol/L (98-107) Carbon Dioxide Level 32 mmol/L (21-32) Anion Gap 8 (6-14) Blood Urea Nitrogen 44 mg/dL (7-20) Creatinine 1.6 mg/dL (0.6-1.0) Estimated GFR (Cockcroft-Gault) 33.3 Glucose Level 102 mg/dL (70-99) Calcium Level 8.9 mg/dL (8.5-10.1) O2 Saturation 92 % (92-99) Arterial Blood pH 7.38 (7.35-7.45) Arterial Blood pCO2 at Patient Temp 52 mmHg (35-46) Arterial Blood pO2 at Patient Temp 70 mmHg (75-108) Arterial Blood HCO3 30 mmol/L (21-28) Arterial Blood Base Excess 4 mmol/L (-3-3) FiO2 40 Laboratory Tests Test 04/22/19 12:40 04/22/19 17:25 04/22/19 18:09 04/22/19 20:55 O2 Saturation 91 % (92-99) 93 % (92-99) Arterial Blood pH 7.39 (7.35-7.45) 7.37 (7.35-7.45) Arterial Blood pCO2 at Patient Temp 52 mmHg (35-46) 52 mmHg (35-46) Arterial Blood pO2 at Patient Temp 69 mmHg (75-108) 76 mmHg (75-108) Arterial Blood HCO3 31 mmol/L (21-28) 30 mmol/L (21-28) Arterial Blood Base Excess 5 mmol/L (-3-3) 4 mmol/L (-3-3) FiO2 40 40 Glucose (Fingerstick) 159 mg/dL (70-99) 146 mg/dL (70-99) 83 mg/dL (70-99) Test 04/23/19 00:42 04/23/19 04:20 04/23/19 05:59 04/23/19 08:13 Glucose (Fingerstick) 95 mg/dL (70-99) 76 mg/dL (70-99) 96 mg/dL (70-99) White Blood Count 16.5 x10^3/uL (4.0-11.0) Red Blood Count 3.11 x10^6/uL (3.50-5.40) Hemoglobin 8.5 g/dL (12.0-15.5) Hematocrit 26.5 % (36.0-47.0) Mean Corpuscular Volume 85 fL (79-100) Mean Corpuscular Hemoglobin 27 pg (25-35) Mean Corpuscular Hemoglobin Concent 32 g/dL (31-37) Red Cell Distribution Width 17.7 % (11.5-14.5) Platelet Count 322 x10^3/uL (140-400) Test 04/23/19 08:25 04/23/19 09:00 Sodium Level 146 mmol/L (136-145) Potassium Level 4.2 mmol/L (3.5-5.1) Chloride Level 106 mmol/L (98-107) Carbon Dioxide Level 32 mmol/L (21-32) Anion Gap 8 (6-14) Blood Urea Nitrogen 44 mg/dL (7-20) Creatinine 1.6 mg/dL (0.6-1.0) Estimated GFR (Cockcroft-Gault) 33.3 Glucose Level 102 mg/dL (70-99) Calcium Level 8.9 mg/dL (8.5-10.1) O2 Saturation 92 % (92-99) Arterial Blood pH 7.38 (7.35-7.45) Arterial Blood pCO2 at Patient Temp 52 mmHg (35-46) Arterial Blood pO2 at Patient Temp 70 mmHg (75-108) Arterial Blood HCO3 30 mmol/L (21-28) Arterial Blood Base Excess 4 mmol/L (-3-3) FiO2 40 Medications Active Scripts Medications Dose Route/Sig Max Daily Dose Days Date Category Dose Instructions Humalog (Insulin Lispro) 100 Unit/1 Ml Insuln.pen 30 Units SQ TIDWMEALS 30 04/15/19 Rx Toprol Xl (Metoprolol Succinate) 50 Mg Tab.er.24h 100 Mg PO DAILY 04/15/19 Rx Hydralazine Hcl 25 Mg Tablet 50 Mg PO TID 04/15/19 Rx Cilostazol 50 Mg Tablet 50 Mg PO BID 04/15/19 Rx Xanax (Alprazolam) 0.5 Mg Tablet 0.5 Mg PO PRN Q6HRS PRN 04/15/19 Rx Lantus Solostar (Insulin Glargine,Hum.rec.anlog) 100 Unit/1 Ml Insuln.pen 75 Unit SQ BID 12/28/18 Reported Ondansetron Odt (Ondansetron) 4 Mg Tab.rapdis 1 Tab PO PRN Q6-8HRS 10/23/18 Rx Tizanidine Hcl 4 Mg Tablet 1 Tab PO TID 10/13/18 Reported Nystop (Nystatin) 60 Gm Powder 1 Sally TP BID 30 09/02/18 Rx Duloxetine Hcl 60 Mg Capsule.dr 60 Mg PO BID 10/26/17 Reported Trulicity (Dulaglutide) 0.75 Mg/0.5 Ml Pen.injctr 0.75 Mg SUBCUT QFR 10/26/17 Reported Amlodipine Besylate 5 Mg Tablet 5 Mg PO DAILY 10/26/17 Reported Colace (Docusate Sodium) 100 Mg Capsule 100 Mg PO BID 03/24/17 Rx Senna-Time S Tablet (Sennosides/Docusate Sodium) 1 Each Tablet 1 Tab PO BID 03/24/17 Rx Ventolin Hfa Inhaler (Albuterol Sulfate) 18 Gm Hfa.aer.ad 2 Puff INH PRN Q4HRS PRN 03/19/17 Reported Duoneb 0.5-3(2.5) Mg/3 Ml (Albuterol/Ipratropium) 3 Ml Ampul.neb 3 Ml NEB PRN QID PRN 03/19/17 Reported Flonase Allergy Relief (Fluticasone Propionate) 9.9 Ml [place].susp 2 Sprays NS PRN PRN 03/19/17 Reported Clonidine Hcl 0.1 Mg Tablet 1 Tab PO PRN PRN 03/19/17 Reported When SBP >150 Eliquis (Apixaban) 5 Mg Tablet 5 Mg PO BID 03/19/17 Reported Lyrica (Pregabalin) 150 Mg Capsule 1 Cap PO BID 10/07/16 Reported Atorvastatin Calcium 20 Mg Tablet 2 Tab PO HS 10/06/16 Reported Nexium Capsule (Esomeprazole Magnesium) 40 Mg Capsule.dr 1 Cap PO BID 10/06/16 Reported Aspirin 81 Mg Tab.chew 1 Tab PO DAILY 10/06/16 Reported Nitrostat (Nitroglycerin) 0.4 Mg Tab.subl 0.4 Mg SL PRN Q5MIN PRN 30 05/02/16 Rx Levothyroxine Sodium 50 Mcg Tablet 1 Tab PO DAILY 10/22/15 Reported Comments CXR 04/21 CHF Impression . 1. Idjhe-bu-[id number] hypercapnic respiratory failure. The etiology related to suspected right heart failure. Cannot exclude right lower lobe pneumonia. She also has component of metabolic acidosis combined with respiratory acidosis. 2. Underlying obesity hypoventilation syndrome/obstructive sleep apnea, on home BiPAP and oxygen at 3 L. 3. Abnormal chest x-ray consistent with mild congestive heart failure, probably diastolic as she has grade 2 diastolic dysfunction. 4. Lower extremity edema. 5. Chronic kidney disease with recent increase during her previous hospitalization. 6. Minimal history of tobacco use. Plan . 1. Proceed with extubation 2. Repeat ABG better, more awake 3. f/u cxr 4. empiric antibiotic. 5. procalcitonin level 0.24 6. Monitor renal function. 7. lasix prn 8. DVT prophylaxis. 9. Stress ulcer prophylaxis. 10. Discussed with RN,/ RT ROBERT SANDOVAL MD Apr 23, 2019 10:53
[2019-04-23] MEDS ORDERED: cloNIDine TTS-1 1 PATCH PATCH.TDWK TD ONE (12:15)
[2019-04-23] MEDS: MEROPENEM 500 MG in IV NORMAL SALINE 50ML 50 ML IV SCH ×2 (13:27→22:24)
[2019-04-23] MEDS: FLUCONAZOLE 200MG/100ML PREMIX 100 ML IV SCH (14:26)
--- NOTE | 2019-04-23 15:31 | RAD ---
EXAM: Chest, single view. HISTORY: Respiratory distress. COMPARISON: 04/21/2019 FINDINGS: A frontal view of the chest obtained. There is stable diffuse interstitial infiltrate with suspected small pleural effusions. There is a stable prominent cardiac silhouette. There has been removal of an endotracheal tube and nasogastric tube. There are surgical clips overlying the right thoracic inlet. No pneumothorax is seen. IMPRESSION: Stable diffuse interstitial infiltrate with suspected small pleural effusions. Electronically signed by: Priti Selby MD (04/23/2019 3:28 PM) [place] [id number]
[2019-04-23] MEDS: IV DEXTROSE 10% 1,000 ML IV SCH (18:45)
[2019-04-23] MEDS: ATORVASTATIN CALCIUM 20 MG TABLET PO SCH (20:58)
[2019-04-23] MEDS: PREGABALIN 75 MG CAPSULE PO SCH (20:59)
[2019-04-23] MEDS: hydrALAZINE 20 MG/ML VIAL. IVP PRN (21:14)
[2019-04-24] VITALS (22 sets, daily range): BP systolic 150–190; BP diastolic 71–93
[2019-04-24] MEDS: hydrALAZINE 20 MG/ML VIAL. IVP PRN ×2 (02:47→15:25)
[2019-04-24] MEDS: LEVOTHYROXINE 50 MCG TABLET PO SCH (05:20)
[2019-04-24] MEDS: INSULIN LISPRO 300 UNITS/3 ML INSULN.PEN. SQ SCH ×10 (05:21→23:45)
[2019-04-24] MEDS: MEROPENEM 500 MG in IV NORMAL SALINE 50ML 50 ML IV SCH ×3 (05:52→21:42)
[2019-04-24] MEDS: IPRATRPIUM/ALBUTEROL 0.5/2.5MG 3 ML NEBU. NEB SCH ×4 (07:16→19:42)
--- NOTE | 2019-04-24 07:35 | PDOC ---
Infectious Disease Note Subjective: Subjective pt on bipap had bouts of agitation drowsy this am arousable, ROS: ROS unable to obtain d/w rn Vital Signs: Vital Signs Vital Signs Date Time Temp Pulse Resp B/P (MAP) Pulse Ox O2 Delivery O2 Flow Rate FiO2 04/24/19 07:16 94 BiPAP/CPAP 04/24/19 06:00 88 16 178/78 (111) 04/24/19 04:14 98.5 98.5 Physical Exam: PHYSICAL EXAM GEN on bipap mopens eyes, comfortable HEENT: Both pupils are round and reacting. No conjunctival lesion, no lesion in the mouth.,NGT + NECK: Supple, LUNGS: dec bs at bases HEART: S1, S2 regular. ABDOMEN: Obese, Soft, nontender, no organomegaly. EXTREMITIES: Bilateral lower extremity edema present, erythema present and superficial ulceration of both the legs present. The patient does have a yeast infection in the groin. NEUROLOGIC: moves all 4 ext Medications: Inpatient Meds: Current Medications Medications (Trade) Dose Ordered Sig/Jesus Manuel Start Time Stop Time Status Last Admin Dose Admin Acetaminophen (Tylenol) 650 mg PRN Q6HRS PRN 04/20/19 16:00 Acetaminophen/ Hydrocodone Bitart (Lortab 10/325) 1 tab PRN Q6HRS PRN 04/20/19 11:00 Albuterol Sulfate (Ventolin Neb Soln) 2.5 mg PRN Q4HRS PRN 04/20/19 02:00 04/20/19 03:20 2.5 MG Albuterol/ Ipratropium (Duoneb) 3 ml RTQID 04/20/19 08:00 04/24/19 07:16 3 ML Alprazolam (Xanax) 0.5 mg PRN Q6HRS PRN 04/20/19 11:00 Amlodipine Besylate (Norvasc) 5 mg DAILY 04/20/19 12:00 04/23/19 12:18 DC 04/23/19 08:07 5 MG Apixaban (Eliquis) 5 mg BID 04/20/19 12:00 04/23/19 08:06 5 MG Aspirin (Children'S Aspirin) 81 mg DAILY 04/20/19 12:00 04/23/19 08:06 81 MG Atorvastatin Calcium (Lipitor) 40 mg HS 04/20/19 21:00 04/22/19 20:49 40 MG Cilostazol (Pletal) 50 mg BID 04/20/19 12:00 04/23/19 08:06 50 MG Clonidine HCl (Catapres Tts-1) 1 patch 1X ONCE 04/23/19 12:15 04/23/19 12:16 DC 04/23/19 13:05 1 PATCH Dextrose 1,000 ml @ 75 mls/hr [id number] 04/23/19 18:45 Dextrose (Dextrose 50%-Water Syringe) 12.5 gm PRN Q15MIN PRN 04/20/19 11:00 04/23/19 18:10 12.5 GM Duloxetine HCl (Cymbalta) 60 mg BID 04/20/19 12:00 04/21/19 08:10 DC 04/20/19 21:16 60 MG Etomidate (Amidate) 30 mg 1X ONCE 04/19/19 21:40 04/19/19 22:39 DC 04/19/19 21:38 30 MG Famotidine (Pepcid Vial) 20 mg DAILY 04/21/19 09:00 Cancel Fluconazole/ Sodium Chloride 100 ml @ 100 mls/hr Q24H 04/21/19 14:00 04/23/19 14:26 100 MLS/HR Fluticasone Propionate (Flonase) 2 spray PRN DAILY PRN 04/20/19 12:00 04/21/19 17:30 2 SPRAY Furosemide (Lasix) 20 mg 1X ONCE 04/21/19 11:45 04/21/19 11:48 DC 04/21/19 11:49 20 MG Heparin Sodium (Porcine) (Heparin Sodium) 5,000 unit Q8HRS 04/20/19 14:00 04/20/19 14:00 DC Hydralazine HCl (Apresoline Inj) 10 mg PRN Q6HRS PRN 04/23/19 20:15 04/24/19 02:47 10 MG Hydralazine HCl (Apresoline) 50 mg TID 04/20/19 14:00 04/23/19 08:06 50 MG Info (Anti-Coagulation Monitoring By Pharmacy) 1 each PRN DAILY PRN 04/22/19 08:15 04/23/19 08:51 1 EACH Insulin Glargine (Lantus) 75 units BID 04/20/19 12:00 04/23/19 08:31 75 UNITS Insulin Human Lispro (HumaLOG) 30 units Q6HRS 04/20/19 12:00 04/23/19 13:02 30 UNITS Ipratropium [place] (Atrovent) 0.5 mg 1X ONCE 04/19/19 21:00 04/19/19 21:01 DC 04/19/19 21:00 0.5 MG Levothyroxine Sodium (Synthroid) 50 mcg DAILY06 04/20/19 12:00 04/23/19 05:56 50 MCG Linezolid/Dextrose 300 ml @ 300 mls/hr Q12HR 04/21/19 14:00 04/23/19 21:16 300 MLS/HR Meropenem 500 mg/ Sodium Chloride 50 ml @ 100 mls/hr Q8HRS 04/23/19 14:00 04/24/19 05:52 100 MLS/HR Methylprednisolone Sodium Succinate (SOLU-Medrol 125MG VIAL) 250 mg 1X ONCE 04/19/19 21:00 04/19/19 21:01 DC 04/19/19 21:08 250 MG Metoprolol Succinate (Toprol Xl) 100 mg DAILY 04/20/19 12:00 Cancel Metoprolol Tartrate (Lopressor) 50 mg BID 04/20/19 12:30 04/23/19 08:07 50 MG Midazolam HCl (Versed) 5 mg 1X ONCE 04/19/19 22:45 04/19/19 22:46 DC 04/19/19 22:23 5 MG Morphine Sulfate (Morphine Sulfate) 2 mg PRN Q15MIN PRN 04/19/19 21:00 04/20/19 14:38 DC 04/19/19 21:14 2 MG Nicardipine HCl 50 mg/Sodium Chloride 250 ml @ 25 mls/hr CONT PRN 04/23/19 12:15 Nitroglycerin (Nitrostat) 0.4 mg PRN Q5MIN PRN 04/20/19 11:00 Nystatin (Nystop) 1 eric BID 04/20/19 12:00 04/23/19 21:16 1 ERIC Pantoprazole Sodium (PROTONIX VIAL for IV PUSH) 40 mg DAILYAC 04/21/19 07:30 04/23/19 08:06 40 MG Pantoprazole Sodium (Protonix) 40 mg DAILYAC 04/20/19 12:00 04/20/19 12:00 DC Piperacillin Sod/ Tazobactam Sod (Zosyn Per Pharmacy) 1 each PRN DAILY PRN 04/20/19 10:00 04/23/19 09:00 DC Piperacillin Sod/ Tazobactam Sod 2.25 gm/Sodium Chloride 50 ml @ 100 mls/hr Q6HRS 04/20/19 12:00 04/23/19 07:46 DC 04/23/19 05:56 100 MLS/HR Pregabalin (Lyrica) 150 mg BID 04/20/19 12:00 04/22/19 22:05 150 MG Propofol 50 ml @ 1.551 mls/ hr 1X ONCE 04/19/19 21:40 04/21/19 05:54 DC 04/19/19 21:47 3.103 MLS/HR Sodium Bicarbonate (Sodium Bicarb Adult 8.4% Syr) 50 meq 1X ONCE 04/20/19 11:00 04/20/19 11:11 DC 04/20/19 11:11 50 MEQ Tizanidine HCl (Zanaflex) 4 mg PRN Q8HRS PRN 04/20/19 11:00 Vecuronium [place] (Norcuron Bolus) 20 mg 1X ONCE 04/19/19 21:40 04/19/19 22:39 DC 04/19/19 21:39 20 MG Venlafaxine HCl (Effexor) 50 mg TID 04/21/19 09:00 04/23/19 08:06 50 MG Labs: Lab Laboratory Tests Test 04/23/19 08:13 04/23/19 08:25 04/23/19 09:00 04/23/19 10:30 Glucose (Fingerstick) 96 mg/dL (70-99) Sodium Level 146 mmol/L (136-145) Potassium Level 4.2 mmol/L (3.5-5.1) Chloride Level 106 mmol/L (98-107) Carbon Dioxide Level 32 mmol/L (21-32) Anion Gap 8 (6-14) Blood Urea Nitrogen 44 mg/dL (7-20) Creatinine 1.6 mg/dL (0.6-1.0) Estimated GFR (Cockcroft-Gault) 33.3 Glucose Level 102 mg/dL (70-99) Calcium Level 8.9 mg/dL (8.5-10.1) O2 Saturation 92 % (92-99) Arterial Blood pH 7.38 (7.35-7.45) Arterial Blood pCO2 at Patient Temp 52 mmHg (35-46) Arterial Blood pO2 at Patient Temp 70 mmHg (75-108) Arterial Blood HCO3 30 mmol/L (21-28) Arterial Blood Base Excess 4 mmol/L (-3-3) FiO2 40 Clostridium difficile Toxin B Gene Negative (Negative) Test 04/23/19 12:45 04/23/19 18:05 04/23/19 18:41 04/23/19 21:10 Glucose (Fingerstick) 133 mg/dL (70-99) 46 mg/dL (70-99) 84 mg/dL (70-99) 103 mg/dL (70-99) Test 04/23/19 23:53 04/24/19 04:45 Glucose (Fingerstick) 151 mg/dL (70-99) Sodium Level 145 mmol/L (136-145) Potassium Level 4.0 mmol/L (3.5-5.1) Chloride Level 105 mmol/L (98-107) Carbon Dioxide Level 32 mmol/L (21-32) Anion Gap 8 (6-14) Blood Urea Nitrogen 30 mg/dL (7-20) Creatinine 1.3 mg/dL (0.6-1.0) Estimated GFR (Cockcroft-Gault) 42.4 Glucose Level 85 mg/dL (70-99) Calcium Level 9.0 mg/dL (8.5-10.1) Micro cult reviewed Objective: Assessment: 1. Healthcare facility associated pneumonia may have been possible aspiration. 2. Acute Respiratory failure. 3. Renal insufficiency. 4. Urinary tract infection.UC neg so far 5. Diabetes. 6. Hypertension. 7. Chronic obstructive pulmonary disease. 8. Congestive heart failure. 9. Coronary artery disease. 10. Atrial fibrillation. 11. Leucocytosis 12.Loose bm C diff neg 04/23 Plan: Plan of Care cont Merrem continue Zyvox and Diflucan. cultures neg so far f/u c/s and labs Overall, long-term prognosis is poor. F/U Labs from today d/w mother at bedside D/W LAVELL JAMES MD 31, 2019 07:35
[2019-04-24 07:43] LABS: BASO # 0.1 x10^3/uL (0.0-0.2); BASO % 1 % (0-3); EOS # 0.8 x10^3/uL (0.0-0.7); EOS % 6 % (0-3); HEMATOCRIT 30.5 % (36.0-47.0); HEMOGLOBIN 9.6 g/dL (12.0-15.5); LYMPH # 2.2 x10^3/uL (1.0-4.8); LYMPH % 16 % (24-48); MEAN CORPUSCULAR HEMOGLOBIN 27 pg (25-35); MEAN CORPUSCULAR HGB CONC 32 g/dL (31-37); MEAN CORPUSCULAR VOLUME 86 fL (79-100); MONO # 1.7 x10^3/uL (0.0-1.1); MONO % 12 % (0-9); NEUT # 9.4 x10^3/uL (1.8-7.7); NEUT % 66 % (31-73); PLATELET COUNT 354 x10^3/uL (140-400); RED BLOOD COUNT 3.57 x10^6/uL (3.50-5.40); RED CELL DISTRIBUTION WIDTH 17.1 % (11.5-14.5); WHITE BLOOD COUNT 14.2 x10^3/uL (4.0-11.0)
[2019-04-24] MEDS ORDERED: LABETALOL 20 MG/4 ML DISP.SYRIN. IVP PRN (08:00)
[2019-04-24 08:04] LABS: ALBUMIN 2.6 g/dL (3.4-5.0); ALBUMIN/GLOBULIN RATIO 0.6 (1.0-1.7); CREATININE 1.2 mg/dL (0.6-1.0); GFR 46.5; POTASSIUM 4.1 mmol/L (3.5-5.1); TOTAL BILIRUBIN 0.3 mg/dL (0.2-1.0); TOTAL PROTEIN 7.1 g/dL (6.4-8.2)
--- NOTE | 2019-04-24 08:04 | PDOC ---
PROGRESS NOTES Subjective Subjective Patient awake and responsive, tolerating Bipap. Objective Objective Vital Signs Date Time Temp Pulse Resp B/P (MAP) Pulse Ox O2 Delivery O2 Flow Rate FiO2 04/24/19 07:16 94 BiPAP/CPAP 04/24/19 06:00 88 16 178/78 (111) 04/24/19 04:14 98.5 98.5 04/22/19 18:38 3.0 Intake and Output 04/24/19 06:59 Intake Total 1750.0 ml Output Total 2946 ml Balance -1196.0 ml IV Total 1570.0 ml Tube Feeding 180 ml Output Urine Total 2946 ml Gastric Drainage Total 0 ml Physical Exam Abdomen: Normal bowel sounds, Soft, No tenderness Heart: Regular rate Extremities: No edema General: Alert, No acute distress Lungs: Other (few coarse BS otherwise CTA anteriorly) Assessment Assessment Problems Medical Problems: (1) Acute respiratory failure with hypoxia and hypercapnia Status: Acute (2) [id number] kidney injury Status: Acute (3) Atrial fibrillation Status: Acute (4) CAD (coronary artery disease) Status: Chronic (5) CHF (congestive heart failure) Status: Acute (6) COPD exacerbation Status: Acute (7) DM2 (diabetes mellitus, type 2) Status: Chronic (8) Healthcare-associated pneumonia Status: Acute (9) HTN (hypertension) Status: Chronic (10) Obesity hypoventilation syndrome Status: Chronic (11) Obstructive sleep apnea Status: Chronic (12) UTI (urinary tract infection) Status: Acute Plan Plan of Care 1. Acute respiratory failure with pneumonia - extubated yesterday, tolerating Bipap. Continue tx per Pulmonary, continue Zosyn, Zyvox and Fluconazole per ID. 2. JENNIFER with CKD III - improved on yesterday's lab, lab from today pending. Continue conservative care. 3. UTI - preliminary culture with light growth of GNR. Await final results, continue abx as above. 4. HTN - BP elevated as unable to take her usual po meds while on Bipap. Started on Clonidine patch yesterday, continue this and prn Hydralazine and Labetalol (IV Enalapril unavailable). 5. DM2 - glucose was low yesterday without tube feeding or po intake. Better now, hold insulins until taking po again. 6. CHF with diastolic dysfunction - stable, I<O yesterday without diuretics. 7. PAF - continue Eliquis when taking po. Comment Review of Relevant I have reviewed the following items jim (where applicable) has been applied. Labs Laboratory Tests Test 04/22/19 08:07 04/22/19 08:35 04/22/19 08:58 04/22/19 12:40 Glucose (Fingerstick) 138 mg/dL (70-99) 159 mg/dL (70-99) Sodium Level 144 mmol/L (136-145) Potassium Level 4.5 mmol/L (3.5-5.1) Chloride Level 105 mmol/L (98-107) Carbon Dioxide Level 29 mmol/L (21-32) Anion Gap 10 (6-14) Blood Urea Nitrogen 62 mg/dL (7-20) Creatinine 2.2 mg/dL (0.6-1.0) Estimated GFR (Cockcroft-Gault) 23.1 Glucose Level 172 mg/dL (70-99) Calcium Level 8.6 mg/dL (8.5-10.1) O2 Saturation 97 % (92-99) 91 % (92-99) Arterial Blood pH 7.49 (7.35-7.45) 7.39 (7.35-7.45) Arterial Blood pCO2 at Patient Temp 36 mmHg (35-46) 52 mmHg (35-46) Arterial Blood pO2 at Patient Temp 110 mmHg (75-108) 69 mmHg (75-108) Arterial Blood HCO3 27 mmol/L (21-28) 31 mmol/L (21-28) Arterial Blood Base Excess 3 mmol/L (-3-3) 5 mmol/L (-3-3) FiO2 45 40 Test 04/22/19 17:25 04/22/19 18:09 04/22/19 20:55 04/23/19 00:42 O2 Saturation 93 % (92-99) Arterial Blood pH 7.37 (7.35-7.45) Arterial Blood pCO2 at Patient Temp 52 mmHg (35-46) Arterial Blood pO2 at Patient Temp 76 mmHg (75-108) Arterial Blood HCO3 30 mmol/L (21-28) Arterial Blood Base Excess 4 mmol/L (-3-3) FiO2 40 Glucose (Fingerstick) 146 mg/dL (70-99) 83 mg/dL (70-99) 95 mg/dL (70-99) Test 04/23/19 04:20 04/23/19 05:59 04/23/19 08:13 04/23/19 08:25 White Blood Count 16.5 x10^3/uL (4.0-11.0) Red Blood Count 3.11 x10^6/uL (3.50-5.40) Hemoglobin 8.5 g/dL (12.0-15.5) Hematocrit 26.5 % (36.0-47.0) Mean Corpuscular Volume 85 fL (79-100) Mean Corpuscular Hemoglobin 27 pg (25-35) Mean Corpuscular Hemoglobin Concent 32 g/dL (31-37) Red Cell Distribution Width 17.7 % (11.5-14.5) Platelet Count 322 x10^3/uL (140-400) Glucose (Fingerstick) 76 mg/dL (70-99) 96 mg/dL (70-99) Sodium Level 146 mmol/L (136-145) Potassium Level 4.2 mmol/L (3.5-5.1) Chloride Level 106 mmol/L (98-107) Carbon Dioxide Level 32 mmol/L (21-32) Anion Gap 8 (6-14) Blood Urea Nitrogen 44 mg/dL (7-20) Creatinine 1.6 mg/dL (0.6-1.0) Estimated GFR (Cockcroft-Gault) 33.3 Glucose Level 102 mg/dL (70-99) Calcium Level 8.9 mg/dL (8.5-10.1) Test 04/23/19 09:00 04/23/19 10:30 04/23/19 12:45 04/23/19 18:05 O2 Saturation 92 % (92-99) Arterial Blood pH 7.38 (7.35-7.45) Arterial Blood pCO2 at Patient Temp 52 mmHg (35-46) Arterial Blood pO2 at Patient Temp 70 mmHg (75-108) Arterial Blood HCO3 30 mmol/L (21-28) Arterial Blood Base Excess 4 mmol/L (-3-3) FiO2 40 Clostridium difficile Toxin B Gene Negative (Negative) Glucose (Fingerstick) 133 mg/dL (70-99) 46 mg/dL (70-99) Test 04/23/19 18:41 7/30/19 21:10 04/23/19 23:53 04/24/19 04:45 Glucose (Fingerstick) 84 mg/dL (70-99) 103 mg/dL (70-99) 151 mg/dL (70-99) White Blood Count 14.2 x10^3/uL (4.0-11.0) Red Blood Count 3.57 x10^6/uL (3.50-5.40) Hemoglobin 9.6 g/dL (12.0-15.5) Hematocrit 30.5 % (36.0-47.0) Mean Corpuscular Volume 86 fL (79-100) Mean Corpuscular Hemoglobin 27 pg (25-35) Mean Corpuscular Hemoglobin Concent 32 g/dL (31-37) Red Cell Distribution Width 17.1 % (11.5-14.5) Platelet Count 354 x10^3/uL (140-400) Neutrophils (%) (Auto) 66 % (31-73) Lymphocytes (%) (Auto) 16 % (24-48) Monocytes (%) (Auto) 12 % (0-9) Eosinophils (%) (Auto) 6 % (0-3) Basophils (%) (Auto) 1 % (0-3) Neutrophils # (Auto) 9.4 x10^3/uL (1.8-7.7) Lymphocytes # (Auto) 2.2 x10^3/uL (1.0-4.8) Monocytes # (Auto) 1.7 x10^3/uL (0.0-1.1) Eosinophils # (Auto) 0.8 x10^3/uL (0.0-0.7) Basophils # (Auto) 0.1 x10^3/uL (0.0-0.2) Laboratory Tests Test 04/23/19 08:13 04/23/19 08:25 04/23/19 09:00 04/23/19 10:30 Glucose (Fingerstick) 96 mg/dL (70-99) Sodium Level 146 mmol/L (136-145) Potassium Level 4.2 mmol/L (3.5-5.1) Chloride Level 106 mmol/L (98-107) Carbon Dioxide Level 32 mmol/L (21-32) Anion Gap 8 (6-14) Blood Urea Nitrogen 44 mg/dL (7-20) Creatinine 1.6 mg/dL (0.6-1.0) Estimated GFR (Cockcroft-Gault) 33.3 Glucose Level 102 mg/dL (70-99) Calcium Level 8.9 mg/dL (8.5-10.1) O2 Saturation 92 % (92-99) Arterial Blood pH 7.38 (7.35-7.45) Arterial Blood pCO2 at Patient Temp 52 mmHg (35-46) Arterial Blood pO2 at Patient Temp 70 mmHg (75-108) Arterial Blood HCO3 30 mmol/L (21-28) Arterial Blood Base Excess 4 mmol/L (-3-3) FiO2 40 Clostridium difficile Toxin B Gene Negative (Negative) Test 04/23/19 12:45 04/23/19 18:05 04/23/19 18:41 04/23/19 21:10 Glucose (Fingerstick) 133 mg/dL (70-99) 46 mg/dL (70-99) 84 mg/dL (70-99) 103 mg/dL (70-99) Test 04/23/19 23:53 04/24/19 04:45 Glucose (Fingerstick) 151 mg/dL (70-99) White Blood Count 14.2 x10^3/uL (4.0-11.0) Red Blood Count 3.57 x10^6/uL (3.50-5.40) Hemoglobin 9.6 g/dL (12.0-15.5) Hematocrit 30.5 % (36.0-47.0) Mean Corpuscular Volume 86 fL (79-100) Mean Corpuscular Hemoglobin 27 pg (25-35) Mean Corpuscular Hemoglobin Concent 32 g/dL (31-37) Red Cell Distribution Width 17.1 % (11.5-14.5) Platelet Count 354 x10^3/uL (140-400) Neutrophils (%) (Auto) 66 % (31-73) Lymphocytes (%) (Auto) 16 % (24-48) Monocytes (%) (Auto) 12 % (0-9) Eosinophils (%) (Auto) 6 % (0-3) Basophils (%) (Auto) 1 % (0-3) Neutrophils # (Auto) 9.4 x10^3/uL (1.8-7.7) Lymphocytes # (Auto) 2.2 x10^3/uL (1.0-4.8) Monocytes # (Auto) 1.7 x10^3/uL (0.0-1.1) Eosinophils # (Auto) 0.8 x10^3/uL (0.0-0.7) Basophils # (Auto) 0.1 x10^3/uL (0.0-0.2) Microbiology 04/21/19 - Final, Complete 04/21/19 - Final, Complete 04/21/19 - Final, Complete 04/21/19 Gram Stain Evaluation - Final, Complete 04/21/19 Sputum Culture - Final, Complete 04/21/19 Sputum Result 1 - Final, Complete 04/20/19 Urine Culture - Preliminary, Resulted 04/20/19 Urine Culture Result 1 (CANDACE) - Preliminary, Resulted Medications Current Medications Albuterol Sulfate (Ventolin Neb Soln) 2.5 mg STK-MED ONCE .ROUTE ; Start 04/19/19 at 20:52; Stop 04/19/19 at 20:53; Status DC Ipratropium [place] (Atrovent) 0.5 mg 1X ONCE NEB Last administered on 04/19/19at 21:00; Start 04/19/19 at 21:00; Stop 04/19/19 at 21:01; Status DC Methylprednisolone Sodium Succinate (SOLU-Medrol 125MG VIAL) 250 mg 1X ONCE IV Last administered on 04/19/19at 21:08; Start 04/19/19 at 21:00; Stop 04/19/19 at 21:01; Status DC Albuterol Sulfate (Ventolin Neb Soln) 10 mg 1X ONCE CONT NEB Last administered on 04/19/19at 21:00; Start 04/19/19 at 21:00; Stop 04/19/19 at 21:01; Status DC Morphine Sulfate (Morphine Sulfate) 2 mg PRN Q15MIN PRN IV/SQ PAIN GREATER THAN 3/10 Last administered on 04/19/19at 21:14; Start 04/19/19 at 21:00; Stop 04/20/19 at 14:38; Status DC Furosemide (Lasix) 80 mg 1X ONCE IVP Last administered on 04/19/19at 21:20; Start 04/19/19 at 21:30; Stop 04/19/19 at 21:31; Status DC Propofol 50 ml @ As Directed STK-MED ONCE IV ; Start 04/19/19 at 21:42; Stop 04/19/19 at 21:43; Status DC Propofol 100 ml @ 0 mls/hr CONT PRN IV SEE PROTOCOL Last administered on 04/23/19at 04:28; Start 04/19/19 at 22:00 Etomidate (Amidate) 20 mg STK-MED ONCE IV ; Start 04/19/19 at 22:13; Stop 04/19/19 at 22:14; Status DC Vecuronium [place] (Norcuron Bolus) 10 mg STK-MED ONCE IV ; Start 04/19/19 at 22:13; Stop 04/19/19 at 22:14; Status DC Midazolam HCl (Versed) 5 mg 1X ONCE NS ; Start 04/19/19 at 22:30; Stop 04/19/19 at 22:31; Status DC Propofol 50 ml @ 1.551 mls/ hr 1X ONCE IV Last administered on 04/19/19at 21:47; Start 04/19/19 at 21:40; Stop 04/21/19 at 05:54; Status DC Vecuronium [place] (Norcuron Bolus) 20 mg 1X ONCE IV Last administered on 04/19/19at 21:39; Start 04/19/19 at 21:40; Stop 04/19/19 at 22:39; Status DC Etomidate (Amidate) 30 mg 1X ONCE IV Last administered on 04/19/19at 21:38; Start 04/19/19 at 21:40; Stop 04/19/19 at 22:39; Status DC Midazolam HCl (Versed) 5 mg 1X ONCE IV Last administered on 04/19/19at 22:23; Start 04/19/19 at 22:45; Stop 04/19/19 at 22:46; Status DC Albuterol/ Ipratropium (Duoneb) 3 ml RTQID NEB Last administered on 04/24/19at 07:16; Start 04/20/19 at 08:00 Albuterol Sulfate (Ventolin Neb Soln) 2.5 mg PRN Q4HRS PRN NEB SHORTNESS OF BREATH Last administered on 04/20/19at 03:20; Start 04/20/19 at 02:00 Heparin Sodium (Porcine) (Heparin Sodium) 5,000 unit Q8HRS SQ ; Start 04/20/19 at 14:00; Stop 04/20/19 at 14:00; Status DC Piperacillin Sod/ Tazobactam Sod (Zosyn Per Pharmacy) 1 each PRN DAILY PRN MC SEE COMMENTS; Start 04/20/19 at 10:00; Stop 04/23/19 at 09:00; Status DC Sodium Bicarbonate (Sodium Bicarb Adult 8.4% Syr) 50 meq 1X ONCE IV Last admin istered on 04/20/19at 11:11; Start 04/20/19 at 11:00; Stop 04/20/19 at 11:11; Status DC Piperacillin Sod/ Tazobactam Sod 2.25 gm/Sodium Chloride 50 ml @ 100 mls/hr Q6HRS IV Last administered on 04/23/19at 05:56; Start 04/20/19 at 12:00; Stop 04/23/19 at 07:46; Status DC Insulin Human Lispro (HumaLOG) 0-9 UNITS TIDWMEALS SQ ; Start 04/20/19 at 12:00; Stop 04/20/19 at 12:00; Status DC Dextrose (Dextrose 50%-Water Syringe) 12.5 gm PRN Q15MIN PRN IV SEE COMMENTS Last administered on 04/23/19at 18:10; Start 04/20/19 at 11:00 Alprazolam (Xanax) 0.5 mg PRN Q6HRS PRN PO ANXIETY / AGITATION; Start 04/20/19 at 11:00 Amlodipine Besylate (Norvasc) 5 mg DAILY PO Last administered on 04/23/19at 08:07; Start 04/20/19 at 12:00; Stop 04/23/19 at 12:18; Status DC Apixaban (Eliquis) 5 mg BID PO Last administered on 04/23/19at 08:06; Start 04/20/19 at 12:00 Aspirin (Children'S Aspirin) 81 mg DAILY PO Last administered on 04/23/19 08:06; Start 04/20/19 at 12:00 Atorvastatin Calcium (Lipitor) 40 mg HS PO Last administered on 04/22/19at 20:49; Start 04/20/19 at 21:00 Cilostazol (Pletal) 50 mg BID PO Last administered on 04/23/19at 08:06; Start 04/20/19 at 12:00 Acetaminophen/ Hydrocodone Bitart (Lortab 10/325) 1 tab PRN Q6HRS PRN PO SEVERE PAIN 7-10; Start 04/20/19 at 11:00 Insulin Glargine (Lantus) 75 units BID SQ Last administered on 04/23/19 08:31; Start 04/20/19 at 12:00 Insulin Human Lispro (HumaLOG) 30 units TIDWMEALS SQ ; Start 04/20/19 at 12:00; Stop 04/20/19 at 12:00; Status DC Metoprolol Succinate (Toprol Xl) 100 mg DAILY PO ; Start 04/20/19 at 12:00; Status Cancel Nitroglycerin (Nitrostat) 0.4 mg PRN Q5MIN PRN SL CP RATING > 1/10; Start 04/20/19 at 11:00 Nystatin (Nystop) 1 sally BID TP Last administered on 04/23/19 21:16; Start 04/20/19 at 12:00 Duloxetine HCl (Cymbalta) 60 mg BID PO Last administered on 04/20/19 21:16; Start 04/20/19 at 12:00; Stop 04/21/19 at 08:10; Status DC Pantoprazole Sodium (Protonix) 40 mg DAILYAC PO ; Start 04/20/19 at 12:00; Stop 04/20/19 at 12:00; Status DC Fluticasone Propionate (Flonase) 2 spray PRN DAILY PRN NS ALLERGIES Last administered on 04/21/19 17:30; Start 04/20/19 at 12:00 Hydralazine HCl (Apresoline) 50 mg TID PO Last administered on 04/23/19 08:06; Start 04/20/19 at 14:00 Levothyroxine Sodium (Synthroid) 50 mcg DAILY06 PO Last administered on 04/23/19 05:56; Start 04/20/19 at 12:00 Pregabalin (Lyrica) 150 mg BID PO Last administered on 04/22/19 22:05; Start 04/20/19 at 12:00 Tizanidine HCl (Zanaflex) 4 mg PRN Q8HRS PRN PO MUSCLE SPASMS; Start 04/20/19 at 11:00 Famotidine (Pepcid Vial) 20 mg DAILY IVP ; Start 04/21/19 at 09:00; Status Cancel Insulin Human Lispro (HumaLOG) 0-9 UNITS Q6HRS SQ Last administered on 04/22/19 06:02; Start 04/20/19 at 12:00 Insulin Human Lispro (HumaLOG) 30 units Q6HRS SQ Last administered on 04/23/19 13:02; Start 04/20/19 at 12:00 Pantoprazole Sodium (PROTONIX VIAL for IV PUSH) 40 mg DAILYAC IVP Last adm inistered on 04/23/19 08:06; Start 04/21/19 at 07:30 Metoprolol Tartrate (Lopressor) 50 mg BID PO Last administered on 04/23/19 08:07; Start 04/20/19 at 12:30 Acetaminophen (Tylenol) 650 mg PRN Q6HRS PRN PEG MILD PAIN / TEMP; Start 04/20/19 at 16:00 Venlafaxine HCl (Effexor) 50 mg TID NG Last administered on 04/23/19 08:06; Start 04/21/19 at 09:00 Furosemide (Lasix) 20 mg 1X ONCE IVP Last administered on 04/21/19 11:49; Start 04/21/19 at 11:45; Stop 04/21/19 at 11:48; Status DC Linezolid/Dextrose 300 ml @ 300 mls/hr Q12HR IV Last administered on 04/23/19 21:16; Start 04/21/19 at 14:00 Fluconazole/ Sodium Chloride 100 ml @ 100 mls/hr Q24H IV Last administered on 04/23/19 14:26; Start 04/21/19 at 14:00 Info (Anti-Coagulation Monitoring By Pharmacy) 1 each PRN DAILY PRN MC SEE COMMENTS Last administered on 04/23/19 08:51; Start 04/22/19 at 08:15 Meropenem 500 mg/ Sodium Chloride 50 ml @ 100 mls/hr Q8HRS IV Last administered on 04/24/19 05:52; Start 04/23/19 at 14:00 Clonidine HCl (Catapres Tts-1) 1 patch 1X ONCE TD Last administered on 7/30/19at 13:05; Start 04/23/19 at 12:15; Stop 04/23/19 at 12:16; Status DC Nicardipine HCl 50 mg/Sodium Chloride 250 ml @ 25 mls/hr CONT PRN IV SEE I/O RECORD; Start 04/23/19 at 12:15 Dextrose 1,000 ml @ 75 mls/hr [id number] IV ; Start 04/23/19 at 18:45 Hydralazine HCl (Apresoline Inj) 10 mg PRN Q6HRS PRN IVP ELEVATED BP, SEE COMME NTS Last administered on 04/24/19at 02:47; Start 04/23/19 at 20:15 Active Scripts Active Humalog (Insulin Lispro) 100 Unit/1 Ml Insuln.pen 30 Units SQ TIDWMEALS 30 Days Toprol Xl (Metoprolol Succinate) 50 Mg Tab.er.24h 100 Mg PO DAILY Hydralazine Hcl 25 Mg Tablet 50 Mg PO TID Cilostazol 50 Mg Tablet 50 Mg PO BID Xanax (Alprazolam) 0.5 Mg Tablet 0.5 Mg PO PRN Q6HRS PRN Ondansetron Odt (Ondansetron) 4 Mg Tab.rapdis 1 Tab PO PRN Q6-8HRS Nystop (Nystatin) 60 Gm Powder 1 Sally TP BID 30 Days Colace (Docusate Sodium) 100 Mg Capsule 100 Mg PO BID Senna-Time S Tablet (Sennosides/Docusate Sodium) 1 Each Tablet 1 Tab PO BID Nitrostat (Nitroglycerin) 0.4 Mg Tab.subl 0.4 Mg SL PRN Q5MIN PRN 30 Days Reported Lantus Solostar (Insulin Glargine,Hum.rec.anlog) 100 Unit/1 Ml Insuln.pen 75 Unit SQ BID Tizanidine Hcl 4 Mg Tablet 1 Tab PO TID Duloxetine Hcl 60 Mg Capsule.dr 60 Mg PO BID Trulicity (Dulaglutide) 0.75 Mg/0.5 Ml Pen.injctr 0.75 Mg SUBCUT QFR Amlodipine Besylate 5 Mg Tablet 5 Mg PO DAILY Ventolin Hfa Inhaler (Albuterol Sulfate) 18 Gm Hfa.aer.ad 2 Puff INH PRN Q4HRS PRN Duoneb 0.5-3(2.5) Mg/3 Ml (Albuterol/Ipratropium) 3 Ml Ampul.neb 3 Ml NEB PRN QID PRN Flonase Allergy Relief (Fluticasone Propionate) 9.9 Ml [place].susp 2 Sprays NS PRN PRN Clonidine Hcl 0.1 Mg Tablet 1 Tab PO PRN PRN When SBP >150 Eliquis (Apixaban) 5 Mg Tablet 5 Mg PO BID Lyrica (Pregabalin) 150 Mg Capsule 1 Cap PO BID Atorvastatin Calcium 20 Mg Tablet 2 Tab PO HS Nexium Capsule (Esomeprazole Magnesium) 40 Mg Capsule.dr 1 Cap PO BID Aspirin 81 Mg Tab.chew 1 Tab PO DAILY Levothyroxine Sodium 50 Mcg Tablet 1 Tab PO DAILY Vitals/I & O Vital Sign - Last 24 Hours 04/23/19 04/23/19 04/23/19 04/23/19 08:00 08:00 08:04 08:06 Temp 98.5 98.5 Pulse 68 65 Resp 13 B/P (MAP) 184/93 (123) 163/82 Pulse Ox 97 96 O2 Delivery Mechanical Ventilator Ventilator Ventilator 04/23/19 04/23/19 04/23/19 04/23/19 08:07 08:07 08:50 09:00 Pulse 65 65 74 Resp 14 B/P (MAP) 163/82 163/82 197/104 (135) Pulse Ox 95 94 O2 Delivery Ventilator Ventilator 04/23/19 04/23/19 04/23/19 04/23/19 09:51 10:00 11:00 11:35 Pulse 70 74 Resp 15 25 B/P (MAP) 177/100 (125) Pulse Ox 95 95 90 89 O2 Delivery Ventilator Ventilator BiPAP/CPAP Venturi Mask 04/23/19 04/23/19 04/23/19 04/23/19 11:47 12:00 12:00 13:00 Temp 98.4 98.4 Pulse 82 74 Resp 24 14 B/P (MAP) 208/107 (140) 147/63 (91) Pulse Ox 93 94 97 O2 Delivery BiPAP/CPAP BiPAP/CPAP Mechanical Ventilator BiPAP/CPAP 04/23/19 04/23/19 04/23/19 04/23/19 13:07 14:00 15:00 15:58 Pulse 74 70 Resp 13 27 B/P (MAP) 152/77 (102) 166/79 (108) Pulse Ox 94 95 97 96 O2 Delivery BiPAP/CPAP BiPAP/CPAP BiPAP/CPAP BiPAP/CPAP 04/23/19 04/23/19 04/23/19 04/23/19 16:00 16:00 17:00 17:21 Temp 98.4 98.4 Pulse 74 74 Resp 16 26 B/P (MAP) 167/83 (111) 168/74 (105) Pulse Ox 96 91 94 O2 Delivery BiPAP/CPAP Mechanical Ventilator BiPAP/CPAP BiPAP/CPAP 04/23/19 04/23/19 04/23/19 04/23/19 18:00 18:23 19:00 19:20 Pulse 72 69 Resp 17 13 B/P (MAP) 173/74 (107) 161/87 (111) Pulse Ox 93 93 93 96 O2 Delivery BiPAP/CPAP BiPAP/CPAP BiPAP/CPAP BiPAP/CPAP 04/23/19 04/23/19 04/23/19 04/23/19 20:00 20:00 21:00 21:14 Temp 98.7 98.7 Pulse 73 82 81 Resp 12 13 B/P (MAP) 188/86 (120) 193/91 (125) 193/97 Pulse Ox 99 93 O2 Delivery Bi-pap BiPAP/CPAP BiPAP/CPAP 04/23/19 04/23/19 04/23/19 04/23/19 22:00 22:51 23:00 23:59 Pulse 87 86 Resp 14 14 B/P (MAP) 173/75 (107) 185/84 (117) Pulse Ox 93 93 93 O2 Delivery BiPAP/CPAP BiPAP/CPAP BiPAP/CPAP Bi-pap 04/23/19 04/24/19 04/24/19 04/24/19 23:59 01:00 01:15 02:00 Temp 98.4 98.4 Pulse 90 86 93 Resp 17 14 12 B/P (MAP) 184/92 (122) 190/93 (125) 182/86 (118) Pulse Ox 93 93 96 93 O2 Delivery BiPAP/CPAP BiPAP/CPAP BiPAP/CPAP BiPAP/CPAP 04/24/19 04/24/19 04/24/19 04/24/19 02:47 03:00 03:15 04:00 Pulse 92 94 Resp 12 B/P (MAP) 182/86 178/84 (115) Pulse Ox 93 98 O2 Delivery BiPAP/CPAP BiPAP/CPAP Bi-pap 04/24/19 04/24/19 04/24/19 04/24/19 04:14 05:00 05:25 06:00 Temp 98.5 98.5 Pulse 94 94 88 Resp 12 12 16 B/P (MAP) 170/74 (106) 187/79 (115) 178/78 (111) Pulse Ox 93 97 95 95 O2 Delivery BiPAP/CPAP BiPAP/CPAP BiPAP/CPAP BiPAP/CPAP 04/24/19 07:16 Pulse Ox 94 O2 Delivery BiPAP/CPAP Intake and Output 04/23/19 04/23/19 04/24/19 14:59 22:59 06:59 Intake Total 600.0 ml 100 ml 1050 ml Output Total 1460 ml 796 ml 690 ml Balance -860.0 ml -696 ml 360 ml JUSTIN TAVAREZ MD Apr 24, 2019 08:04
[2019-04-24] MEDS: IV DEXTROSE 10% 1,000 ML IV SCH ×2 (08:05→20:51)
--- NOTE | 2019-04-24 08:23 | NUR ---
SS following up with discharge planning. Pt is now on nasal cannula oxygen. PT/OT ordered. SS will await PT/OT evaluations and recommendations and will fax clinical updates to [facility], ; fax [phone].
[2019-04-24 08:41] LABS: BASE EXCESS ABG 7 mmol/L (-3-3); HCO3 ABG 31 mmol/L (21-28); PCO2 ABG 46 mmHg (35-46); PO2 ABG 73 mmHg (75-108); SAT O2 ABG 94 % (92-99)
[2019-04-24 08:45] LABS: FIO2 ABG 40
[2019-04-24] MEDS: INSULIN GLARGINE 300 UNITS/3 ML INSULN.PEN. SQ SCH ×2 (09:00→20:51)
--- NOTE | 2019-04-24 09:19 | PDOC ---
SUBJECTIVE ROS Extubated OBJECTIVE Vital Signs Vital Signs Date Time Temp Pulse Resp B/P (MAP) Pulse Ox O2 Delivery O2 Flow Rate FiO2 04/24/19 08:00 Bi-pap 04/24/19 07:16 94 04/24/19 06:00 88 16 178/78 (111) 04/24/19 04:14 98.5 98.5 I & 0 Intake and Output 04/24/19 07:00 Intake Total 1750.0 ml Output Total 2741 ml Balance -991.0 ml IV Total 1570.0 ml Tube Feeding 180 ml Output Urine Total 2741 ml Gastric Drainage Total 0 ml PHYSICAL EXAM Physical Exam GENERAL: Extubated , On venturi mask HEENT: Sclerae nonicteric. NECK: Supple. LUNGS: Diminished breath sounds. CARDIOVASCULAR: Regular rate and rhythm. ABDOMEN: Soft, nontender EXTREMITIES:No pitting edema, changes of CVI+ Mcgee + DIAGNOSIS/ASSESSMENT Assessment & Plan JENNIFER - ATN renal function at baseline now Normal US 04/02/19 E-Lytes stable , Supportive care, Monitor Hypernatremia- Mild Increase free water Recurrent UTI- ID following CKD stage 3- Follows with Dr. Santana,Last office visit 01/2018 Cr ranging from 1.0-1.5 since 2017 Labs at [facility] Cr 1.4-2.1 Anemia- Hgb stable Acute hypercapnic respiratory failure: Intubated and On MV Plan to extubate today Healthcare facility associated pneumonia may have been possible aspiration. CHF with diastolic dysfunction and CAD - preserved ejection fraction on a recent echocardiogram. HTN - BP high , antihypertensives Paroxysmal atrial fibrillation: Presently in sinus rhythm. On Eliquis and her beta-ryanne. Diabetes mellitus type 2, insulin dependent: Peripheral artery disease: diagnosed on her last admission,medical management was advised Chr lymphedema COMMENT/RELEVANT DATA Meds Current Medications Medications (Trade) Dose Ordered Sig/Jesus Manuel Start Time Stop Time Status Last Admin Dose Admin Acetaminophen (Tylenol) 650 mg PRN Q6HRS PRN 04/20/19 16:00 Acetaminophen/ Hydrocodone Bitart (Lortab 10/325) 1 tab PRN Q6HRS PRN 04/20/19 11:00 Albuterol Sulfate (Ventolin Neb Soln) 2.5 mg PRN Q4HRS PRN 04/20/19 02:00 04/20/19 03:20 2.5 MG Albuterol/ Ipratropium (Duoneb) 3 ml RTQID 04/20/19 08:00 04/24/19 07:16 3 ML Alprazolam (Xanax) 0.5 mg PRN Q6HRS PRN 04/20/19 11:00 Amlodipine Besylate (Norvasc) 5 mg DAILY 04/20/19 12:00 04/23/19 12:18 DC 04/23/19 08:07 5 MG Apixaban (Eliquis) 5 mg BID 04/20/19 12:00 04/23/19 08:06 5 MG Aspirin (Children'S Aspirin) 81 mg DAILY 04/20/19 12:00 04/23/19 08:06 81 MG Atorvastatin Calcium (Lipitor) 40 mg HS 04/20/19 21:00 04/22/19 20:49 40 MG Cilostazol (Pletal) 50 mg BID 04/20/19 12:00 04/23/19 08:06 50 MG Clonidine HCl (Catapres Tts-1) 1 patch 1X ONCE 04/23/19 12:15 04/23/19 12:16 DC 04/23/19 13:05 1 PATCH Dextrose 1,000 ml @ 75 mls/hr [id number] 04/23/19 18:45 Dextrose (Dextrose 50%-Water Syringe) 12.5 gm PRN Q15MIN PRN 04/20/19 11:00 04/23/19 18:10 12.5 GM Duloxetine HCl (Cymbalta) 60 mg BID 04/20/19 12:00 04/21/19 08:10 DC 04/20/19 21:16 60 MG Etomidate (Amidate) 30 mg 1X ONCE 04/19/19 21:40 04/19/19 22:39 DC 04/19/19 21:38 30 MG Famotidine (Pepcid Vial) 20 mg DAILY 04/21/19 09:00 Cancel Fluconazole/ Sodium Chloride 100 ml @ 100 mls/hr Q24H 04/21/19 14:00 04/23/19 14:26 100 MLS/HR Fluticasone Propionate (Flonase) 2 spray PRN DAILY PRN 04/20/19 12:00 04/21/19 17:30 2 SPRAY Furosemide (Lasix) 20 mg 1X ONCE 04/21/19 11:45 04/21/19 11:48 DC 04/21/19 11:49 20 MG Heparin Sodium (Porcine) (Heparin Sodium) 5,000 unit Q8HRS 04/20/19 14:00 04/20/19 14:00 DC Hydralazine HCl (Apresoline Inj) 10 mg PRN Q6HRS PRN 04/23/19 20:15 04/24/19 02:47 10 MG Hydralazine HCl (Apresoline) 50 mg TID 04/20/19 14:00 04/23/19 08:06 50 MG Info (Anti-Coagulation Monitoring By Pharmacy) 1 each PRN DAILY PRN 04/22/19 08:15 04/23/19 08:51 1 EACH Insulin Glargine (Lantus) 75 units BID 04/20/19 12:00 04/23/19 08:31 75 UNITS Insulin Human Lispro (HumaLOG) 30 units Q6HRS 04/20/19 12:00 04/23/19 13:02 30 UNITS Ipratropium [place] (Atrovent) 0.5 mg 1X ONCE 04/19/19 21:00 04/19/19 21:01 DC 04/19/19 21:00 0.5 MG Labetalol HCl (Normodyne Iv Push) 20 mg PRN Q2HR PRN 04/24/19 08:00 Levothyroxine Sodium (Synthroid) 50 mcg DAILY06 04/20/19 12:00 04/23/19 05:56 50 MCG Linezolid/Dextrose 300 ml @ 300 mls/hr Q12HR 04/21/19 14:00 04/23/19 21:16 300 MLS/HR Meropenem 500 mg/ Sodium Chloride 50 ml @ 100 mls/hr Q8HRS 04/23/19 14:00 04/24/19 05:52 100 MLS/HR Methylprednisolone Sodium Succinate (SOLU-Medrol 125MG VIAL) 250 mg 1X ONCE 04/19/19 21:00 04/19/19 21:01 DC 04/19/19 21:08 250 MG Metoprolol Succinate (Toprol Xl) 100 mg DAILY 04/20/19 12:00 Cancel Metoprolol Tartrate (Lopressor) 50 mg BID 04/20/19 12:30 04/23/19 08:07 50 MG Midazolam HCl (Versed) 5 mg 1X ONCE 04/19/19 22:45 04/19/19 22:46 DC 04/19/19 22:23 5 MG Morphine Sulfate (Morphine Sulfate) 2 mg PRN Q15MIN PRN 04/19/19 21:00 04/20/19 14:38 DC 04/19/19 21:14 2 MG Nicardipine HCl 50 mg/Sodium Chloride 250 ml @ 25 mls/hr CONT PRN 04/23/19 12:15 Nitroglycerin (Nitrostat) 0.4 mg PRN Q5MIN PRN 04/20/19 11:00 Nystatin (Nystop) 1 eric BID 04/20/19 12:00 04/23/19 21:16 1 ERIC Pantoprazole Sodium (PROTONIX VIAL for IV PUSH) 40 mg DAILYAC 04/21/19 07:30 04/23/19 08:06 40 MG Pantoprazole Sodium (Protonix) 40 mg DAILYAC 04/20/19 12:00 04/20/19 12:00 DC Piperacillin Sod/ Tazobactam Sod (Zosyn Per Pharmacy) 1 each PRN DAILY PRN 04/20/19 10:00 04/23/19 09:00 DC Piperacillin Sod/ Tazobactam Sod 2.25 gm/Sodium Chloride 50 ml @ 100 mls/hr Q6HRS 04/20/19 12:00 04/23/19 07:46 DC 04/23/19 05:56 100 MLS/HR Pregabalin (Lyrica) 150 mg BID 04/20/19 12:00 04/22/19 22:05 150 MG Propofol 50 ml @ 1.551 mls/ hr 1X ONCE 04/19/19 21:40 04/21/19 05:54 DC 04/19/19 21:47 3.103 MLS/HR Sodium Bicarbonate (Sodium Bicarb Adult 8.4% Syr) 50 meq 1X ONCE 04/20/19 11:00 04/20/19 11:11 DC 04/20/19 11:11 50 MEQ Tizanidine HCl (Zanaflex) 4 mg PRN Q8HRS PRN 04/20/19 11:00 Vecuronium [place] (Norcuron Bolus) 20 mg 1X ONCE 04/19/19 21:40 04/19/19 22:39 DC 04/19/19 21:39 20 MG Venlafaxine HCl (Effexor) 50 mg TID 04/21/19 09:00 04/23/19 08:06 50 MG Lab Laboratory Tests Test 04/23/19 10:30 04/23/19 12:45 04/23/19 18:05 04/23/19 18:41 Clostridium difficile Toxin B Gene Negative (Negative) Glucose (Fingerstick) 133 mg/dL (70-99) 46 mg/dL (70-99) 84 mg/dL (70-99) Test 04/23/19 21:10 04/23/19 23:53 04/24/19 04:45 04/24/19 08:35 Glucose (Fingerstick) 103 mg/dL (70-99) 151 mg/dL (70-99) White Blood Count 14.2 x10^3/uL (4.0-11.0) Red Blood Count 3.57 x10^6/uL (3.50-5.40) Hemoglobin 9.6 g/dL (12.0-15.5) Hematocrit 30.5 % (36.0-47.0) Mean Corpuscular Volume 86 fL (79-100) Mean Corpuscular Hemoglobin 27 pg (25-35) Mean Corpuscular Hemoglobin Concent 32 g/dL (31-37) Red Cell Distribution Width 17.1 % (11.5-14.5) Platelet Count 354 x10^3/uL (140-400) Neutrophils (%) (Auto) 66 % (31-73) Lymphocytes (%) (Auto) 16 % (24-48) Monocytes (%) (Auto) 12 % (0-9) Eosinophils (%) (Auto) 6 % (0-3) Basophils (%) (Auto) 1 % (0-3) Neutrophils # (Auto) 9.4 x10^3/uL (1.8-7.7) Lymphocytes # (Auto) 2.2 x10^3/uL (1.0-4.8) Monocytes # (Auto) 1.7 x10^3/uL (0.0-1.1) Eosinophils # (Auto) 0.8 x10^3/uL (0.0-0.7) Basophils # (Auto) 0.1 x10^3/uL (0.0-0.2) Sodium Level 147 mmol/L (136-145) Potassium Level 4.1 mmol/L (3.5-5.1) Chloride Level 107 mmol/L (98-107) Carbon Dioxide Level 31 mmol/L (21-32) Anion Gap 9 (6-14) Blood Urea Nitrogen 29 mg/dL (7-20) Creatinine 1.2 mg/dL (0.6-1.0) Estimated GFR (Cockcroft-Gault) 46.5 BUN/Creatinine Ratio 24 (6-20) Glucose Level 86 mg/dL (70-99) Calcium Level 9.0 mg/dL (8.5-10.1) Total Bilirubin 0.3 mg/dL (0.2-1.0) Aspartate Amino Transf (AST/SGOT) 16 U/L (15-37) Alanine Aminotransferase (ALT/SGPT) 23 U/L (14-59) Alkaline Phosphatase 122 U/L (46-116) Total Protein 7.1 g/dL (6.4-8.2) Albumin 2.6 g/dL (3.4-5.0) Albumin/Globulin Ratio 0.6 (1.0-1.7) O2 Saturation 94 % (92-99) Arterial Blood pH 7.45 (7.35-7.45) Arterial Blood pCO2 at Patient Temp 46 mmHg (35-46) Arterial Blood pO2 at Patient Temp 73 mmHg (75-108) Arterial Blood HCO3 31 mmol/L (21-28) Arterial Blood Base Excess 7 mmol/L (-3-3) FiO2 40 Results All relevant outside records, renal labs, imaging studies, telemetry/EKG's were reviewed. EVERTON HE MD Apr 24, 2019 09:19
[2019-04-24] MEDS: APIXABAN 5 MG TABLET. PO SCH ×2 (09:39→20:29)
[2019-04-24] MEDS: CILOSTAZOL 50 MG TABLET. PO SCH ×2 (09:39→20:30)
[2019-04-24] MEDS: ASPIRIN CHEWABLE 81 MG TABLET. PO SCH (09:39)
[2019-04-24] MEDS: PREGABALIN 75 MG CAPSULE PO SCH ×2 (09:39→20:30)
[2019-04-24] MEDS: PANTOPRAZOLE IV PUSH 40 MG VIAL. IVP SCH (09:40)
[2019-04-24] MEDS: NYSTATIN TOPICAL POWDER 15GM BOTTLE. TP SCH ×2 (09:40→20:36)
[2019-04-24] MEDS: VENLAFAXINE 50 MG TABLET. NG SCH ×3 (09:43→20:29)
[2019-04-24] MEDS: METOPROLOL TART IMMED RELEASE 25 MG TABLET. PO SCH ×2 (09:44→20:30)
[2019-04-24] MEDS ORDERED: AMINO AC 3%/ELECTROLYTE/GLYCER 1,000 ML IV SCH (10:45)
[2019-04-24] MEDS: AMINO AC 3%/ELECTROLYTE/GLYCER 1,000 ML IV SCH (11:49)
--- NOTE | 2019-04-24 12:45 | PDOC ---
PULMONARY PROGRESS NOTES Subjective extubated 04/23 better used BIPAP at night fully awake Vitals Vital Signs Date Time Temp Pulse Resp B/P (MAP) Pulse Ox O2 Delivery O2 Flow Rate FiO2 04/24/19 12:18 96 Venturi Mask 15.0 04/24/19 10:00 98 15 180/78 (112) 04/24/19 08:00 98.5 98.5 General: Alert, No acute distress Lungs: Other (decrease bs) Cardiovascular: S1, S2 Abdomen: Soft, Non-tender, Other Extremities: Other (1+edema) Labs Laboratory Tests Test 04/22/19 17:25 04/22/19 18:09 04/22/19 20:55 04/23/19 00:42 O2 Saturation 93 % (92-99) Arterial Blood pH 7.37 (7.35-7.45) Arterial Blood pCO2 at Patient Temp 52 mmHg (35-46) Arterial Blood pO2 at Patient Temp 76 mmHg (75-108) Arterial Blood HCO3 30 mmol/L (21-28) Arterial Blood Base Excess 4 mmol/L (-3-3) FiO2 40 Glucose (Fingerstick) 146 mg/dL (70-99) 83 mg/dL (70-99) 95 mg/dL (70-99) Test 04/23/19 04:20 04/23/19 05:59 04/23/19 08:13 04/23/19 08:25 White Blood Count 16.5 x10^3/uL (4.0-11.0) Red Blood Count 3.11 x10^6/uL (3.50-5.40) Hemoglobin 8.5 g/dL (12.0-15.5) Hematocrit 26.5 % (36.0-47.0) Mean Corpuscular Volume 85 fL (79-100) Mean Corpuscular Hemoglobin 27 pg (25-35) Mean Corpuscular Hemoglobin Concent 32 g/dL (31-37) Red Cell Distribution Width 17.7 % (11.5-14.5) Platelet Count 322 x10^3/uL (140-400) Glucose (Fingerstick) 76 mg/dL (70-99) 96 mg/dL (70-99) Sodium Level 146 mmol/L (136-145) Potassium Level 4.2 mmol/L (3.5-5.1) Chloride Level 106 mmol/L (98-107) Carbon Dioxide Level 32 mmol/L (21-32) Anion Gap 8 (6-14) Blood Urea Nitrogen 44 mg/dL (7-20) Creatinine 1.6 mg/dL (0.6-1.0) Estimated GFR (Cockcroft-Gault) 33.3 Glucose Level 102 mg/dL (70-99) Calcium Level 8.9 mg/dL (8.5-10.1) Test 04/23/19 09:00 04/23/19 10:30 04/23/19 12:45 04/23/19 18:05 O2 Saturation 92 % (92-99) Arterial Blood pH 7.38 (7.35-7.45) Arterial Blood pCO2 at Patient Temp 52 mmHg (35-46) Arterial Blood pO2 at Patient Temp 70 mmHg (75-108) Arterial Blood HCO3 30 mmol/L (21-28) Arterial Blood Base Excess 4 mmol/L (-3-3) FiO2 40 Clostridium difficile Toxin B Gene Negative (Negative) Glucose (Fingerstick) 133 mg/dL (70-99) 46 mg/dL (70-99) Test 04/23/19 18:41 04/23/19 21:10 04/23/19 23:53 04/24/19 04:45 Glucose (Fingerstick) 84 mg/dL (70-99) 103 mg/dL (70-99) 151 mg/dL (70-99) White Blood Count 14.2 x10^3/uL (4.0-11.0) Red Blood Count 3.57 x10^6/uL (3.50-5.40) Hemoglobin 9.6 g/dL (12.0-15.5) Hematocrit 30.5 % (36.0-47.0) Mean Corpuscular Volume 86 fL (79-100) Mean Corpuscular Hemoglobin 27 pg (25-35) Mean Corpuscular Hemoglobin Concent 32 g/dL (31-37) Red Cell Distribution Width 17.1 % (11.5-14.5) Platelet Count 354 x10^3/uL (140-400) Neutrophils (%) (Auto) 66 % (31-73) Lymphocytes (%) (Auto) 16 % (24-48) Monocytes (%) (Auto) 12 % (0-9) Eosinophils (%) (Auto) 6 % (0-3) Basophils (%) (Auto) 1 % (0-3) Neutrophils # (Auto) 9.4 x10^3/uL (1.8-7.7) Lymphocytes # (Auto) 2.2 x10^3/uL (1.0-4.8) Monocytes # (Auto) 1.7 x10^3/uL (0.0-1.1) Eosinophils # (Auto) 0.8 x10^3/uL (0.0-0.7) Basophils # (Auto) 0.1 x10^3/uL (0.0-0.2) Sodium Level 147 mmol/L (136-145) Potassium Level 4.1 mmol/L (3.5-5.1) Chloride Level 107 mmol/L (98-107) Carbon Dioxide Level 31 mmol/L (21-32) Anion Gap 9 (6-14) Blood Urea Nitrogen 29 mg/dL (7-20) Creatinine 1.2 mg/dL (0.6-1.0) Estimated GFR (Cockcroft-Gault) 46.5 BUN/Creatinine Ratio 24 (6-20) Glucose Level 86 mg/dL (70-99) Calcium Level 9.0 mg/dL (8.5-10.1) Total Bilirubin 0.3 mg/dL (0.2-1.0) Aspartate Amino Transf (AST/SGOT) 16 U/L (15-37) Alanine Aminotransferase (ALT/SGPT) 23 U/L (14-59) Alkaline Phosphatase 122 U/L (46-116) Total Protein 7.1 g/dL (6.4-8.2) Albumin 2.6 g/dL (3.4-5.0) Albumin/Globulin Ratio 0.6 (1.0-1.7) Test 04/24/19 08:35 04/24/19 11:00 O2 Saturation 94 % (92-99) Arterial Blood pH 7.45 (7.35-7.45) Arterial Blood pCO2 at Patient Temp 46 mmHg (35-46) Arterial Blood pO2 at Patient Temp 73 mmHg (75-108) Arterial Blood HCO3 31 mmol/L (21-28) Arterial Blood Base Excess 7 mmol/L (-3-3) FiO2 40 Troponin I Quantitative 0.119 ng/mL (0.000-0.055) Laboratory Tests Test 04/23/19 12:45 04/23/19 18:05 04/23/19 18:41 04/23/19 21:10 Glucose (Fingerstick) 133 mg/dL (70-99) 46 mg/dL (70-99) 84 mg/dL (70-99) 103 mg/dL (70-99) Test 04/23/19 23:53 04/24/19 04:45 04/24/19 08:35 04/24/19 11:00 Glucose (Fingerstick) 151 mg/dL (70-99) White Blood Count 14.2 x10^3/uL (4.0-11.0) Red Blood Count 3.57 x10^6/uL (3.50-5.40) Hemoglobin 9.6 g/dL (12.0-15.5) Hematocrit 30.5 % (36.0-47.0) Mean Corpuscular Volume 86 fL (79-100) Mean Corpuscular Hemoglobin 27 pg (25-35) Mean Corpuscular Hemoglobin Concent 32 g/dL (31-37) Red Cell Distribution Width 17.1 % (11.5-14.5) Platelet Count 354 x10^3/uL (140-400) Neutrophils (%) (Auto) 66 % (31-73) Lymphocytes (%) (Auto) 16 % (24-48) Monocytes (%) (Auto) 12 % (0-9) Eosinophils (%) (Auto) 6 % (0-3) Basophils (%) (Auto) 1 % (0-3) Neutrophils # (Auto) 9.4 x10^3/uL (1.8-7.7) Lymphocytes # (Auto) 2.2 x10^3/uL (1.0-4.8) Monocytes # (Auto) 1.7 x10^3/uL (0.0-1.1) Eosinophils # (Auto) 0.8 x10^3/uL (0.0-0.7) Basophils # (Auto) 0.1 x10^3/uL (0.0-0.2) Sodium Level 147 mmol/L (136-145) Potassium Level 4.1 mmol/L (3.5-5.1) Chloride Level 107 mmol/L (98-107) Carbon Dioxide Level 31 mmol/L (21-32) Anion Gap 9 (6-14) Blood Urea Nitrogen 29 mg/dL (7-20) Creatinine 1.2 mg/dL (0.6-1.0) Estimated GFR (Cockcroft-Gault) 46.5 BUN/Creatinine Ratio 24 (6-20) Glucose Level 86 mg/dL (70-99) Calcium Level 9.0 mg/dL (8.5-10.1) Total Bilirubin 0.3 mg/dL (0.2-1.0) Aspartate Amino Transf (AST/SGOT) 16 U/L (15-37) Alanine Aminotransferase (ALT/SGPT) 23 U/L (14-59) Alkaline Phosphatase 122 U/L (46-116) Total Protein 7.1 g/dL (6.4-8.2) Albumin 2.6 g/dL (3.4-5.0) Albumin/Globulin Ratio 0.6 (1.0-1.7) O2 Saturation 94 % (92-99) Arterial Blood pH 7.45 (7.35-7.45) Arterial Blood pCO2 at Patient Temp 46 mmHg (35-46) Arterial Blood pO2 at Patient Temp 73 mmHg (75-108) Arterial Blood HCO3 31 mmol/L (21-28) Arterial Blood Base Excess 7 mmol/L (-3-3) FiO2 40 Troponin I Quantitative 0.119 ng/mL (0.000-0.055) Medications Active Scripts Medications Dose Route/Sig Max Daily Dose Days Date Category Dose Instructions Humalog (Insulin Lispro) 100 Unit/1 Ml Insuln.pen 30 Units SQ TIDWMEALS 30 04/15/19 Rx Toprol Xl (Metoprolol Succinate) 50 Mg Tab.er.24h 100 Mg PO DAILY 04/15/19 Rx Hydralazine Hcl 25 Mg Tablet 50 Mg PO TID 04/15/19 Rx Cilostazol 50 Mg Tablet 50 Mg PO BID 04/15/19 Rx Xanax (Alprazolam) 0.5 Mg Tablet 0.5 Mg PO PRN Q6HRS PRN 04/15/19 Rx Lantus Solostar (Insulin Glargine,Hum.rec.anlog) 100 Unit/1 Ml Insuln.pen 75 Unit SQ BID 12/28/18 Reported Ondansetron Odt (Ondansetron) 4 Mg Tab.rapdis 1 Tab PO PRN Q6-8HRS 10/23/18 Rx Tizanidine Hcl 4 Mg Tablet 1 Tab PO TID 10/13/18 Reported Nystop (Nystatin) 60 Gm Powder 1 Sally TP BID 30 09/02/18 Rx Duloxetine Hcl 60 Mg Capsule.dr 60 Mg PO BID 10/26/17 Reported Trulicity (Dulaglutide) 0.75 Mg/0.5 Ml Pen.injctr 0.75 Mg SUBCUT QFR 10/26/17 Reported Amlodipine Besylate 5 Mg Tablet 5 Mg PO DAILY 10/26/17 Reported Colace (Docusate Sodium) 100 Mg Capsule 100 Mg PO BID 03/24/17 Rx Senna-Time S Tablet (Sennosides/Docusate Sodium) 1 Each Tablet 1 Tab PO BID 03/24/17 Rx Ventolin Hfa Inhaler (Albuterol Sulfate) 18 Gm Hfa.aer.ad 2 Puff INH PRN Q4HRS PRN 03/19/17 Reported Duoneb 0.5-3(2.5) Mg/3 Ml (Albuterol/Ipratropium) 3 Ml Ampul.neb 3 Ml NEB PRN QID PRN 03/19/17 Reported Flonase Allergy Relief (Fluticasone Propionate) 9.9 Ml [place].susp 2 Sprays NS PRN PRN 03/19/17 Reported Clonidine Hcl 0.1 Mg Tablet 1 Tab PO PRN PRN 03/19/17 Reported When SBP >150 Eliquis (Apixaban) 5 Mg Tablet 5 Mg PO BID 03/19/17 Reported Lyrica (Pregabalin) 150 Mg Capsule 1 Cap PO BID 10/07/16 Reported Atorvastatin Calcium 20 Mg Tablet 2 Tab PO HS 10/06/16 Reported Nexium Capsule (Esomeprazole Magnesium) 40 Mg Capsule. 1 Cap PO BID 10/06/16 Reported Aspirin 81 Mg Tab.chew 1 Tab PO DAILY 10/06/16 Reported Nitrostat (Nitroglycerin) 0.4 Mg Tab.subl 0.4 Mg SL PRN Q5MIN PRN 30 05/02/16 Rx Levothyroxine Sodium 50 Mcg Tablet 1 Tab PO DAILY 10/22/15 Reported Comments CXR 04/23 CHF/ mild Impression . 1. [id number] hypercapnic respiratory failure. The etiology related to suspected right heart failure. Cannot exclude right lower lobe pneumonia. extubated 04/23 2. Underlying obesity hypoventilation syndrome/obstructive sleep apnea, on home BiPAP and oxygen at 3 L. 3. Abnormal chest x-ray consistent with mild congestive heart failure, probably diastolic as she has grade 2 diastolic dysfunction. 4. Lower extremity edema. 5. Chronic kidney disease with recent increase during her previous hospitalization. 6. Minimal history of tobacco use. 7. metabolic acidosis combined with respiratory acidosis POA. corrected. Plan . 1. Nasal canula. 2. BIPAP qhs 3. f/u cxr as needed 4. empiric antibiotic. 5. procalcitonin level 0.24 6. Monitor renal function. 7. lasix prn 8. DVT prophylaxis. 9. Stress ulcer prophylaxis. 10. PT/ Speech eval 11. Discussed with RN, ROBERT SANDOVAL MD Apr 24, 2019 12:45
--- NOTE | 2019-04-24 12:57 | PDOC2 ---
VIOLETTE ESCOBAR [employer]ENTAL [employer]ER 04/24/19 1257: CARDIAC CONSULT DATE OF CONSULT Date of Consult DATE: 04/24/19 TIME: 12:42 REASON FOR CONSULT Reason for Consult: elevated troponin REFERRING PHYSICIAN Referring Physician: Annika SOURCE Source: Chart review, Patient HISTORY OF PRESENT ILLNESS HISTORY OF PRESENT ILLNESS This is a 58 yo female admitted for complains of SOA. Pt recently discharge to SNU and end up readmitted due to dyspnea. Bipap was placed initially but was not effective enough so she ended up getting intubated and was finally extubated yesterday. In the last few days of her readmission she was noted with JENNIFER hypoglycemic reaction, CHF which has improved. There is a question regarding possible aspiration. She also is being treated for HCAP. She does have hx of CAD with stent placement in the past. Today she mentioned having midchest tightness and troponin was drawn and it was mildly elevated. No concerning arrhythmias and no nausea or vomiting. She does have diffuse wheeze. She has significant diurese as noted in her shah bag and overnight UOP as well. PAST MEDICAL HISTORY Past Medical History Cardiovascular: AFIB, CAD, HTN, Hyperlipidemia, Other (LE PAD, venous insufficiency) Pulmonary: COPD, Pulmonary embolus, Pneumonia, Other (RUE DVT) CENTRAL NERVOUS SYSTEM: CVA, Peripheral neuropathy GI: GERD, Other (esophageal stricture?) Heme/Onc: No pertinent hx Hepatobiliary: No pertinent hx Psych: Depression Musculoskeletal: Osteoarthritis Rheumatologic: Gout Infectious disease: No pertinent hx ENT: Other (retinopathy?) Renal/: UTI, Urinary Incontinence Endocrine: Diabetes (2), Hypothyroidism Dermatology: No pertinent hx PAST SURGICAL HISTORY Past Surgical History Cholecystectomy, Hernia Repair, Hysterectomy, Other (PCI/stents), lumbar laminectomy FAMILY HISTORY Family History: Coronary Artery Disease, Diabetes SOCIAL HISTORY Smoke: No ALCOHOL: none Drugs: None Lives: with Family CURRENT MEDICATIONS CURRENT MEDICATIONS Current Medications Medications (Trade) Dose Ordered Sig/Jesus Manuel Route PRN Reason Start Time Stop Time Status Last Admin Dose Admin Meropenem 500 mg/ Sodium Chloride 50 ml @ 100 mls/hr Q8HRS IV 04/23/19 14:00 04/24/19 05:52 Hydralazine HCl (Apresoline Inj) 10 mg PRN Q6HRS PRN IVP ELEVATED BP, SEE COMMENTS 04/23/19 20:15 04/24/19 02:47 Amino Acids/ Glycerin/ Electrolytes 1,000 ml @ 60 mls/hr [id number] IV 04/24/19 11:00 04/24/19 11:49 ALLERGIES ALLERGIES: Coded Allergies: I S O L A T I O N *CONTACT* (Verified Allergy, Unknown, 04/08/19) ESBL No Known Medication Allergies (Verified Allergy, Unknown, 04/08/19) ROS Review of System limited, mask on, dysphonia PHYSICAL EXAM General: Alert, Cooperative, No acute distress HEENT: Atraumatic, Mucous membr. moist/pink, Other (dysphonia) Lungs: Other (diffuse wheeze) Heart: Regular rate (SR), Other (distant heart sounds) Abdomen: Soft, No tenderness, Other (obese) Skin: Other (healing LE blisters; trace LE edema) Neuro: Other (drowsy; nods yes and no to questions) MUSCULOSKELETAL: Osteoarthritic changes both hands VITALS/I&O VITALS/I&O: Vital Signs Date Time Temp Pulse Resp B/P (MAP) Pulse Ox O2 Delivery O2 Flow Rate FiO2 04/24/19 12:18 96 Venturi Mask 15.0 04/24/19 10:00 98 15 180/78 (112) 04/24/19 08:00 98.5 98.5 I & O 04/23/19 04/23/19 04/24/19 14:59 22:59 06:59 Intake Total 600.0 ml 100 ml 1050 ml Output Total 1460 ml 796 ml 690 ml Balance -860.0 ml -696 ml 360 ml LABS Lab: Laboratory Tests Test 04/23/19 12:45 04/23/19 18:05 04/23/19 18:41 04/23/19 21:10 Glucose (Fingerstick) 133 mg/dL (70-99) H 46 mg/dL (70-99) *L 84 mg/dL (70-99) 103 mg/dL (70-99) H Test 04/23/19 23:53 04/24/19 04:45 04/24/19 08:35 04/24/19 11:00 Glucose (Fingerstick) 151 mg/dL (70-99) H White Blood Count 14.2 x10^3/uL (4.0-11.0) H Red Blood Count 3.57 x10^6/uL (3.50-5.40) Hemoglobin 9.6 g/dL (12.0-15.5) L Hematocrit 30.5 % (36.0-47.0) L Mean Corpuscular Volume 86 fL (79-100) Mean Corpuscular Hemoglobin 27 pg (25-35) Mean Corpuscular Hemoglobin Concent 32 g/dL (31-37) Red Cell Distribution Width 17.1 % (11.5-14.5) H Platelet Count 354 x10^3/uL (140-400) Neutrophils (%) (Auto) 66 % (31-73) Lymphocytes (%) (Auto) 16 % (24-48) L Monocytes (%) (Auto) 12 % (0-9) H Eosinophils (%) (Auto) 6 % (0-3) H Basophils (%) (Auto) 1 % (0-3) Neutrophils # (Auto) 9.4 x10^3/uL (1.8-7.7) H Lymphocytes # (Auto) 2.2 x10^3/uL (1.0-4.8) Monocytes # (Auto) 1.7 x10^3/uL (0.0-1.1) H Eosinophils # (Auto) 0.8 x10^3/uL (0.0-0.7) H Basophils # (Auto) 0.1 x10^3/uL (0.0-0.2) Sodium Level 147 mmol/L (136-145) H Potassium Level 4.1 mmol/L (3.5-5.1) Chloride Level 107 mmol/L (98-107) Carbon Dioxide Level 31 mmol/L (21-32) Anion Gap 9 (6-14) Blood Urea Nitrogen 29 mg/dL (7-20) H Creatinine 1.2 mg/dL (0.6-1.0) H Estimated GFR (Cockcroft-Gault) 46.5 BUN/Creatinine Ratio 24 (6-20) H Glucose Level 86 mg/dL (70-99) Calcium Level 9.0 mg/dL (8.5-10.1) Total Bilirubin 0.3 mg/dL (0.2-1.0) Aspartate Amino Transferase (AST) 16 U/L (15-37) Alanine Aminotransferase (ALT) 23 U/L (14-59) Alkaline Phosphatase 122 U/L (46-116) H Total Protein 7.1 g/dL (6.4-8.2) Albumin 2.6 g/dL (3.4-5.0) L Albumin/Globulin Ratio 0.6 (1.0-1.7) L O2 Saturation 94 % (92-99) Arterial Blood pH 7.45 (7.35-7.45) Arterial Blood pCO2 at Patient Temp 46 mmHg (35-46) Arterial Blood pO2 at Patient Temp 73 mmHg (75-108) L Arterial Blood HCO3 31 mmol/L (21-28) H Arterial Blood Base Excess 7 mmol/L (-3-3) H FiO2 40 Troponin I Quantitative 0.119 ng/mL (0.000-0.055) Laboratory Tests 04/24/19 04:45 Laboratory Tests 04/24/19 04:45 ECHOCARDIOGRAM ECHOCARDIOGRAM <Conclusion> The left ventricular systolic function is normal. The Ejection Fraction is 60-65%. There is normal LV segmental wall motion. Transmitral Doppler flow pattern is Grade II-pseudonormal filling dynamics. Trace tricuspid regurgitation with an estimated PAP of 30 mmHg. There is no evidence of significant pericardial effusion. DATE: 04/03/19 0813 STRESS TEST STRESS TEST Conclusion 1. No perfusion defects seen with stress studyto suggest myocardial ischemia or sca 2. No need to do a rest studt 3. rNormal wall motion and wall thickening with an ejection fraction of 74% 4. Scan indicates low risk for future cardiac events. DATE: 05/30/16 1322 ASSESSMENT/PLAN ASSESSMENT/PLAN 1. Acute on chronic respiratory failure with decompensated diastolic CHF, pneumonia, MARY. Pulmonary following 2. Acute on chronic diastolic CHF 3. Chest pain: likely from bronchospasm 4. CAD: past PCI/stent to the RCA and most recent PCI/stent to the LAD in 2017 5. JENNIFER on CKD3 6. Elevated troponin: Trop at 0.1 EKG SR without acute changes. Suspect demand mediated with above culprits, type 2 7. HTN urgency 8. HLP 9. DM2 with hypoglycemic episode 10. JENNIFER on CKD3: better. nephrology following 11. Hx of PE/DVT 12. PAFIB: maintaining SR 13. Morbid obesity Recommendations 1. Post extubation yesterday. Bipap at hs and PRN. Will need her home bipap when transferred back to facility 2. Significant UOP, lasix PRN 3. Swallowing still under evaluation. Place on NTG paste. Labetolol IV PRN 4. Resume secondary prevention measures once PO is tolerated. Eliquis for stroke prevention 5. Trend trop, plan for outpt ischemic evaluation SELINA ENCARNACION MD 04/24/19 1725: CARDIAC CONSULT ASSESSMENT/PLAN ASSESSMENT/PLAN Patient seen and examined. Agree with TOUR ACTOR's assessment and plan. Acute respiratory failure secondary to combination of obesity hypoventilation and acute on chronic diastolic heart failure Extubated 04/23. Pulmonary team following. Continue diuresis for acute on chronic diastolic heart failure. PAF, maintaining sinus rhythm. Slight troponin elevation probably demand ischemia. CAD status appears stable clinically. We'll consider ischemic evaluation as an outpatient. Thank you for your consultation. VIOLETTE ESCOBAR APRN Apr 24, 2019 12:57 SELINA ENCARNACION MD Apr 24, 2019 17:25
--- NOTE | 2019-04-24 13:31 | EKG ---
[facility] [address] [place] [address] Test Date: 2019-04-24 Test Time: 13:22:24 Pat Name: EVELIA TAI Department: Room: 104 1 Gender: F Home Health Administrator: DONYA : 1960 Requested By: VIOLETTE ESCOBAR Order Number: [id number] Reading MD: Measurements Intervals [place] Rate: 57 P: MO: QRS: 7 QRSD: 60 T: 88 QT: 388 QTc: 380 Interpretive Statements IRREGULAR RHYTHM, NO P-WAVE FOUND LOW VOLTAGE T ABNORMALITY IN HIGH LATERAL LEADS ABNORMAL ECG RI6.01 Unconfirmed report Compared to ECG 12/09/2018 23:53:16 Low QRS voltage now present T-wave abnormality now present Sinus rhythm no longer present Left-axis deviation no longer present Myocardial infarct finding no longer present
[2019-04-24] MEDS: FLUCONAZOLE 200MG/100ML PREMIX 100 ML IV SCH (15:24)
[2019-04-24] MEDS: NITROGLYCERIN OINT 1 GM PACKET. TP SCH ×2 (17:33→23:44)
[2019-04-24] MEDS ORDERED: NITROGLYCERIN OINT 1 GM PACKET. TP SCH (18:00)
--- NOTE | 2019-04-24 19:29 | NUR ---
Pt had c/o chest pain upon start of shift. The chart writer called on-call MD for Dr. Roblero. Received call back from Dr. Adrian Biggs. Notified MD of c/o pain and NPO status. Received order for morphine 1 mg IVP Q1hr PRN. Previous nurse reported that pt had previous c/o chest pain throughout the day. 12-lead EKG performed on day shift. Cardiology is on case.
[2019-04-24] MEDS: MORPHINE SULFATE 2 MG/ML VIAL. IV PRN (19:43)
[2019-04-24] MEDS ORDERED: [UNRECOGNIZED DRUG - REMARK] SQ PRN (20:30)
[2019-04-24] MEDS: ATORVASTATIN CALCIUM 20 MG TABLET PO SCH (20:30)
[2019-04-25] VITALS (25 sets, daily range): BP systolic 135–181; BP diastolic 63–88
[2019-04-25] MEDS: hydrALAZINE 20 MG/ML VIAL. IVP PRN ×3 (01:08→22:16)
[2019-04-25] MEDS: MORPHINE SULFATE 2 MG/ML VIAL. IV PRN (02:02)
[2019-04-25 04:31] LABS: CALCIUM 8.6 mg/dL (8.5-10.1); CREATININE 1.2 mg/dL (0.6-1.0); GFR 46.5; POTASSIUM 4.5 mmol/L (3.5-5.1)
[2019-04-25] MEDS: AMINO AC 3%/ELECTROLYTE/GLYCER 1,000 ML IV SCH (04:44)
[2019-04-25] MEDS: INSULIN LISPRO 300 UNITS/3 ML INSULN.PEN. SQ SCH ×8 (05:49→23:55)
[2019-04-25] MEDS: MEROPENEM 500 MG in IV NORMAL SALINE 50ML 50 ML IV SCH ×3 (05:49→22:26)
[2019-04-25] MEDS: LEVOTHYROXINE 50 MCG TABLET PO SCH (05:49)
[2019-04-25] MEDS: NITROGLYCERIN OINT 1 GM PACKET. TP SCH ×4 (05:51→23:43)
--- NOTE | 2019-04-25 07:55 | PDOC ---
PROGRESS NOTES Subjective Subjective Patient reports some chest pain/discomfort persists. Not worsening. Objective Objective Vital Signs Date Time Temp Pulse Resp B/P (MAP) Pulse Ox O2 Delivery O2 Flow Rate FiO2 04/25/19 06:21 93 164/73 04/25/19 06:00 17 94 Venturi Mask 04/25/19 04:00 98.3 98.3 04/24/19 19:40 12.0 Intake and Output 04/25/19 07:00 Intake Total 1980 ml Output Total 2700 ml Balance -720 ml IV Total 1980 ml Output Urine Total 2700 ml Physical Exam Abdomen: Normal bowel sounds, Soft, No tenderness Heart: Regular rate Extremities: No edema (mild erythema bilateral LE's) General: Alert, No acute distress (breathing comfortably on mask) Lungs: Other (BS mildly decreased anteriorly, no wheezes heard) Assessment Assessment Problems Medical Problems: (1) Acute respiratory failure with hypoxia and hypercapnia Status: Acute (2) Dkwoj-ub-sjvkqyy kidney injury Status: Acute (3) Atrial fibrillation Status: Acute (4) CAD (coronary artery disease) Status: Chronic (5) CHF (congestive heart failure) Status: Acute (6) COPD exacerbation Status: Acute (7) DM2 (diabetes mellitus, type 2) Status: Chronic (8) Healthcare-associated pneumonia Status: Acute (9) HTN (hypertension) Status: Chronic (10) Obesity hypoventilation syndrome Status: Chronic (11) Obstructive sleep apnea Status: Chronic (12) UTI (urinary tract infection) Status: Acute Plan Plan of Care 1. Acute respiratory failure with AE COPD and pneumonia - continues slow improvement, now off Bipap and tolerating mask. Continue tx per Pulmonary. 2. chest pain with diastolic CHF and hx CAD - Troponin only mildly elevated. I's<O's without diuretic. Continue tx per Cardiology. Hx PAF, not on Eliquis presently as NPO. 3. JENNIFER with CKD - creatinine back to baseline. 4. UTI - light growth of Klebsiella. Continue abx per ID. 5. nutrition - continue PPN. Speech tx does not feel patient has safe swallow yet, will continue to follow. 6. HTN - fairly well controlled with IV meds and nitropaste. 7. DM2 - controlled, continue insulin. Comment Review of Relevant I have reviewed the following items jim (where applicable) has been applied. Labs Laboratory Tests Test 04/23/19 08:13 04/23/19 08:25 04/23/19 09:00 04/23/19 10:30 Glucose (Fingerstick) 96 mg/dL (70-99) Sodium Level 146 mmol/L (136-145) Potassium Level 4.2 mmol/L (3.5-5.1) Chloride Level 106 mmol/L (98-107) Carbon Dioxide Level 32 mmol/L (21-32) Anion Gap 8 (6-14) Blood Urea Nitrogen 44 mg/dL (7-20) Creatinine 1.6 mg/dL (0.6-1.0) Estimated GFR (Cockcroft-Gault) 33.3 Glucose Level 102 mg/dL (70-99) Calcium Level 8.9 mg/dL (8.5-10.1) O2 Saturation 92 % (92-99) Arterial Blood pH 7.38 (7.35-7.45) Arterial Blood pCO2 at Patient Temp 52 mmHg (35-46) Arterial Blood pO2 at Patient Temp 70 mmHg (75-108) Arterial Blood HCO3 30 mmol/L (21-28) Arterial Blood Base Excess 4 mmol/L (-3-3) FiO2 40 Clostridium difficile Toxin B Gene Negative (Negative) Test 04/23/19 12:45 04/23/19 18:05 04/23/19 18:41 04/23/19 21:10 Glucose (Fingerstick) 133 mg/dL (70-99) 46 mg/dL (70-99) 84 mg/dL (70-99) 103 mg/dL (70-99) Test 04/23/19 23:53 04/24/19 04:45 04/24/19 08:35 04/24/19 09:55 Glucose (Fingerstick) 151 mg/dL (70-99) 70 mg/dL (70-99) White Blood Count 14.2 x10^3/uL (4.0-11.0) Red Blood Count 3.57 x10^6/uL (3.50-5.40) Hemoglobin 9.6 g/dL (12.0-15.5) Hematocrit 30.5 % (36.0-47.0) Mean Corpuscular Volume 86 fL (79-100) Mean Corpuscular Hemoglobin 27 pg (25-35) Mean Corpuscular Hemoglobin Concent 32 g/dL (31-37) Red Cell Distribution Width 17.1 % (11.5-14.5) Platelet Count 354 x10^3/uL (140-400) Neutrophils (%) (Auto) 66 % (31-73) Lymphocytes (%) (Auto) 16 % (24-48) Monocytes (%) (Auto) 12 % (0-9) Eosinophils (%) (Auto) 6 % (0-3) Basophils (%) (Auto) 1 % (0-3) Neutrophils # (Auto) 9.4 x10^3/uL (1.8-7.7) Lymphocytes # (Auto) 2.2 x10^3/uL (1.0-4.8) Monocytes # (Auto) 1.7 x10^3/uL (0.0-1.1) Eosinophils # (Auto) 0.8 x10^3/uL (0.0-0.7) Basophils # (Auto) 0.1 x10^3/uL (0.0-0.2) Sodium Level 147 mmol/L (136-145) Potassium Level 4.1 mmol/L (3.5-5.1) Chloride Level 107 mmol/L (98-107) Carbon Dioxide Level 31 mmol/L (21-32) Anion Gap 9 (6-14) Blood Urea Nitrogen 29 mg/dL (7-20) Creatinine 1.2 mg/dL (0.6-1.0) Estimated GFR (Cockcroft-Gault) 46.5 BUN/Creatinine Ratio 24 (6-20) Glucose Level 86 mg/dL (70-99) Calcium Level 9.0 mg/dL (8.5-10.1) Total Bilirubin 0.3 mg/dL (0.2-1.0) Aspartate Amino Transf (AST/SGOT) 16 U/L (15-37) Alanine Aminotransferase (ALT/SGPT) 23 U/L (14-59) Alkaline Phosphatase 122 U/L (46-116) Total Protein 7.1 g/dL (6.4-8.2) Albumin 2.6 g/dL (3.4-5.0) Albumin/Globulin Ratio 0.6 (1.0-1.7) O2 Saturation 94 % (92-99) Arterial Blood pH 7.45 (7.35-7.45) Arterial Blood pCO2 at Patient Temp 46 mmHg (35-46) Arterial Blood pO2 at Patient Temp 73 mmHg (75-108) Arterial Blood HCO3 31 mmol/L (21-28) Arterial Blood Base Excess 7 mmol/L (-3-3) FiO2 40 Test 04/24/19 11:00 04/24/19 12:29 04/24/19 16:44 04/24/19 17:27 Troponin I Quantitative 0.119 ng/mL (0.000-0.055) 0.135 ng/mL (0.000-0.055) Glucose (Fingerstick) 127 mg/dL (70-99) 126 mg/dL (70-99) Test 04/24/19 20:42 04/25/19 04:00 Glucose (Fingerstick) 141 mg/dL (70-99) Sodium Level 144 mmol/L (136-145) Potassium Level 4.5 mmol/L (3.5-5.1) Chloride Level 105 mmol/L (98-107) Carbon Dioxide Level 30 mmol/L (21-32) Anion Gap 9 (6-14) Blood Urea Nitrogen 28 mg/dL (7-20) Creatinine 1.2 mg/dL (0.6-1.0) Estimated GFR (Cockcroft-Gault) 46.5 Glucose Level 162 mg/dL (70-99) Calcium Level 8.6 mg/dL (8.5-10.1) Laboratory Tests Test 04/24/19 08:35 04/24/19 09:55 04/24/19 11:00 04/24/19 12:29 O2 Saturation 94 % (92-99) Arterial Blood pH 7.45 (7.35-7.45) Arterial Blood pCO2 at Patient Temp 46 mmHg (35-46) Arterial Blood pO2 at Patient Temp 73 mmHg (75-108) Arterial Blood HCO3 31 mmol/L (21-28) Arterial Blood Base Excess 7 mmol/L (-3-3) FiO2 40 Glucose (Fingerstick) 70 mg/dL (70-99) 127 mg/dL (70-99) Troponin I Quantitative 0.119 ng/mL (0.000-0.055) Test 04/24/19 16:44 04/24/19 17:27 04/24/19 20:42 04/25/19 04:00 Troponin I Quantitative 0.135 ng/mL (0.000-0.055) Glucose (Fingerstick) 126 mg/dL (70-99) 141 mg/dL (70-99) Sodium Level 144 mmol/L (136-145) Potassium Level 4.5 mmol/L (3.5-5.1) Chloride Level 105 mmol/L (98-107) Carbon Dioxide Level 30 mmol/L (21-32) Anion Gap 9 (6-14) Blood Urea Nitrogen 28 mg/dL (7-20) Creatinine 1.2 mg/dL (0.6-1.0) Estimated GFR (Cockcroft-Gault) 46.5 Glucose Level 162 mg/dL (70-99) Calcium Level 8.6 mg/dL (8.5-10.1) Microbiology 04/21/19 - Final, Complete 04/21/19 - Final, Complete 04/21/19 - Final, Complete 04/21/19 Gram Stain Evaluation - Final, Complete 04/21/19 Sputum Culture - Final, Complete 04/21/19 Sputum Result 1 - Final, Complete 04/20/19 Urine Culture - Final, Complete 04/20/19 Urine Culture Result 1 (CANDACE) - Final, Complete 04/20/19 Antimicrobic Susceptibility - Final, Complete Medications Current Medications Albuterol Sulfate (Ventolin Neb Soln) 2.5 mg STK-MED ONCE .ROUTE ; Start 04/19/19 at 20:52; Stop 04/19/19 at 20:53; Status DC Ipratropium Shedd (Atrovent) 0.5 mg 1X ONCE NEB Last administered on 04/19/19at 21:00; Start 04/19/19 at 21:00; Stop 04/19/19 at 21:01; Status DC Methylprednisolone Sodium Succinate (SOLU-Medrol 125MG VIAL) 250 mg 1X ONCE IV Last administered on 04/19/19at 21:08; Start 04/19/19 at 21:00; Stop 04/19/19 at 21:01; Status DC Albuterol Sulfate (Ventolin Neb Soln) 10 mg 1X ONCE CONT NEB Last administered on 04/19/19at 21:00; Start 04/19/19 at 21:00; Stop 04/19/19 at 21:01; Status DC Morphine Sulfate (Morphine Sulfate) 2 mg PRN Q15MIN PRN IV/SQ PAIN GREATER THAN 3/10 Last administered on 04/19/19at 21:14; Start 04/19/19 at 21:00; Stop 04/20/19 at 14:38; Status DC Furosemide (Lasix) 80 mg 1X ONCE IVP Last administered on 04/19/19at 21:20; Start 04/19/19 at 21:30; Stop 04/19/19 at 21:31; Status DC Propofol 50 ml @ As Directed STK-MED ONCE IV ; Start 04/19/19 at 21:42; Stop 04/19/19 at 21:43; Status DC Propofol 100 ml @ 0 mls/hr CONT PRN IV SEE PROTOCOL Last administered on 04/23/19at 04:28; Start 04/19/19 at 22:00 Etomidate (Amidate) 20 mg STK-MED ONCE IV ; Start 04/19/19 at 22:13; Stop 04/19/19 at 22:14; Status DC Vecuronium Shedd (Norcuron Bolus) 10 mg STK-MED ONCE IV ; Start 04/19/19 at 22:13; Stop 04/19/19 at 22:14; Status DC Midazolam HCl (Versed) 5 mg 1X ONCE NS ; Start 04/19/19 at 22:30; Stop 04/19/19 at 22:31; Status DC Propofol 50 ml @ 1.551 mls/ hr 1X ONCE IV Last administered on 04/19/19at 21:47; Start 04/19/19 at 21:40; Stop 04/21/19 at 05:54; Status DC Vecuronium Shedd (Norcuron Bolus) 20 mg 1X ONCE IV Last administered on 04/19/19at 21:39; Start 04/19/19 at 21:40; Stop 04/19/19 at 22:39; Status DC Etomidate (Amidate) 30 mg 1X ONCE IV Last administered on 04/19/19at 21:38; Start 04/19/19 at 21:40; Stop 04/19/19 at 22:39; Status DC Midazolam HCl (Versed) 5 mg 1X ONCE IV Last administered on 04/19/19at 22:23; Start 04/19/19 at 22:45; Stop 04/19/19 at 22:46; Status DC Albuterol/ Ipratropium (Duoneb) 3 ml RTQID NEB Last administered on 04/24/19at 19:42; Start 04/20/19 at 08:00 Albuterol Sulfate (Ventolin Neb Soln) 2.5 mg PRN Q4HRS PRN NEB SHORTNESS OF BREATH Last administered on 04/20/19at 03:20; Start 04/20/19 at 02:00 Heparin Sodium (Porcine) (Heparin Sodium) 5,000 unit Q8HRS SQ ; Start 04/20/19 at 14:00; Stop 04/20/19 at 14:00; Status DC Piperacillin Sod/ Tazobactam Sod (Zosyn Per Pharmacy) 1 each PRN DAILY PRN MC SEE COMMENTS; Start 04/20/19 at 10:00; Stop 04/23/19 at 09:00; Status DC Sodium Bicarbonate (Sodium Bicarb Adult 8.4% Syr) 50 meq 1X ONCE IV Last administered on 04/20/19at 11:11; Start 04/20/19 at 11:00; Stop 04/20/19 at 11:11; Status DC Piperacillin Sod/ Tazobactam Sod 2.25 gm/Sodium Chloride 50 ml @ 100 mls/hr Q6HRS IV Last administered on 04/23/19at 05:56; Start 04/20/19 at 12:00; Stop 04/23/19 at 07:46; Status DC Insulin Human Lispro (HumaLOG) 0-9 UNITS TIDWMEALS SQ ; Start 04/20/19 at 12:00; Stop 04/20/19 at 12:00; Status DC Dextrose (Dextrose 50%-Water Syringe) 12.5 gm PRN Q15MIN PRN IV SEE COMMENTS Last administered on 04/23/19at 18:10; Start 04/20/19 at 11:00 Alprazolam (Xanax) 0.5 mg PRN Q6HRS PRN PO ANXIETY / AGITATION; Start 04/20/19 at 11:00 Amlodipine Besylate (Norvasc) 5 mg DAILY PO Last administered on 04/23/19at 08:07; Start 04/20/19 at 12:00; Stop 04/23/19 at 12:18; Status DC Apixaban (Eliquis) 5 mg BID PO Last administered on 04/24/19at 09:39; Start 04/20/19 at 12:00 Aspirin (Children'S Aspirin) 81 mg DAILY PO Last administered on 04/24/19at 09:39; Start 04/20/19 at 12:00 Atorvastatin Calcium (Lipitor) 40 mg HS PO Last administered on 04/22/19at 20:4 9; Start 04/20/19 at 21:00 Cilostazol (Pletal) 50 mg BID PO Last administered on 04/24/19at 09:39; Start 04/20/19 at 12:00 Acetaminophen/ Hydrocodone Bitart (Lortab 10/325) 1 tab PRN Q6HRS PRN PO SEVERE PAIN 7-10; Start 04/20/19 at 11:00 Insulin Glargine (Lantus) 75 units BID SQ Last administered on 04/23/19at 08:31; Start 04/20/19 at 12:00 Insulin Human Lispro (HumaLOG) 30 units TIDWMEALS SQ ; Start 04/20/19 at 12:00; Stop 04/20/19 at 12:00; Status DC Metoprolol Succinate (Toprol Xl) 100 mg DAILY PO ; Start 04/20/19 at 12:00; Status Cancel Nitroglycerin (Nitrostat) 0.4 mg PRN Q5MIN PRN SL CP RATING > 1/10; Start 04/20/19 at 11:00; Stop 04/24/19 at 15:14; Status DC Nystatin (Nystop) 1 sally BID TP Last administered on 04/24/19at 20:36; Start 04/20/19 at 12:00 Duloxetine HCl (Cymbalta) 60 mg BID PO Last administered on 04/20/19at 21:16; Start 04/20/19 at 12:00; Stop 04/21/19 at 08:10; Status DC Pantoprazole Sodium (Protonix) 40 mg DAILYAC PO ; Start 04/20/19 at 12:00; Stop 04/20/19 at 12:00; Status DC Fluticasone Propionate (Flonase) 2 spray PRN DAILY PRN NS ALLERGIES Last administered on 04/21/19at 17:30; Start 04/20/19 at 12:00 Hydralazine HCl (Apresoline) 50 mg TID PO Last administered on 04/24/19at 09:39; Start 04/20/19 at 14:00 Levothyroxine Sodium (Synthroid) 50 mcg DAILY06 PO Last administered on 04/23/19 05:56; Start 04/20/19 at 12:00 Pregabalin (Lyrica) 150 mg BID PO Last administered on 04/24/19 09:39; Start 04/20/19 at 12:00 Tizanidine HCl (Zanaflex) 4 mg PRN Q8HRS PRN PO MUSCLE SPASMS; Start 04/20/19 at 11:00 Famotidine (Pepcid Vial) 20 mg DAILY IVP ; Start 04/21/19 at 09:00; Status Cancel Insulin Human Lispro (HumaLOG) 0-9 UNITS Q6HRS SQ Last administered on 04/22/19 06:02; Start 04/20/19 at 12:00 Insulin Human Lispro (HumaLOG) 30 units Q6HRS SQ Last administered on 04/23/19 13:02; Start 04/20/19 at 12:00 Pantoprazole Sodium (PROTONIX VIAL for IV PUSH) 40 mg DAILYAC IVP Last administered on 04/24/19 09:40; Start 04/21/19 at 07:30 Metoprolol Tartrate (Lopressor) 50 mg BID PO Last administered on 04/24/19 09:44; Start 04/20/19 at 12:30 Acetaminophen (Tylenol) 650 mg PRN Q6HRS PRN PEG MILD PAIN / TEMP; Start 04/20/19 at 16:00 Venlafaxine HCl (Effexor) 50 mg TID NG Last administered on 04/24/19 09:43; Start 04/21/19 at 09:00 Furosemide (Lasix) 20 mg 1X ONCE IVP Last administered on 04/21/19 11:49; Start 04/21/19 at 11:45; Stop 04/21/19 at 11:48; Status DC Linezolid/Dextrose 300 ml @ 300 mls/hr Q12HR IV Last administered on 04/24/19 20:35; Start 04/21/19 at 14:00 Fluconazole/ Sodium Chloride 100 ml @ 100 mls/hr Q24H IV Last administered on 04/24/19 15:24; Start 04/21/19 at 14:00 Info (Anti-Coagulation Monitoring By Pharmacy) 1 each PRN DAILY PRN MC SEE COMMENTS Last administered on 04/23/19at 08:51; Start 04/22/19 at 08:15 Meropenem 500 mg/ Sodium Chloride 50 ml @ 100 mls/hr Q8HRS IV Last administered on 04/25/19at 05:49; Start 04/23/19 at 14:00 Clonidine HCl (Catapres Tts-1) 1 patch 1X ONCE TD Last administered on 04/23/19at 13:05; Start 04/23/19 at 12:15; Stop 04/23/19 at 12:16; Status DC Nicardipine HCl 50 mg/Sodium Chloride 250 ml @ 25 mls/hr CONT PRN IV SEE I/O RECORD; Start 04/23/19 at 12:15 Dextrose 1,000 ml @ 75 mls/hr [id number] IV ; Start 04/23/19 at 18:45 Hydralazine HCl (Apresoline Inj) 10 mg PRN Q6HRS PRN IVP ELEVATED BP, SEE COMMENTS Last administered on 04/25/19at 01:08; Start 04/23/19 at 20:15 Labetalol HCl (Normodyne Iv Push) 20 mg PRN Q2HR PRN IVP HYPERTENSION Last administered on 04/25/19at 06:21; Start 04/24/19 at 08:00 Amino Acids/ Glycerin/ Electrolytes 1,000 ml @ 80 mls/hr [id number] IV ; Start 04/24/19 at 10:45; Stop 04/24/19 at 10:55; Status DC Amino Acids/ Glycerin/ Electrolytes 1,000 ml @ 60 mls/hr [id number] IV Last administered on 04/25/19at 04:44; Start 04/24/19 at 11:00 Nitroglycerin (Nitro-Bid Oint) 1 inch Q6HRS TP Last administered on 04/25/19at 05:51; Start 04/24/19 at 18:00 Nitroglycerin (Nitro-Bid Oint) 1 inch Q6HRS TP ; Start 04/24/19 at 18:00; Status Cancel Morphine Sulfate (Morphine Sulfate) 1 mg PRN Q1HR PRN IV PAIN Last administered on 04/25/19at 02:02; Start 04/24/19 at 19:30 Non-Formulary Medication 1 ea PRN Q3HRS PRN SQ PAIN; Start 04/24/19 at 20:30; Status Cancel Active Scripts Active Humalog (Insulin Lispro) 100 Unit/1 Ml Insuln.pen 30 Units SQ TIDWMEALS 30 Days Toprol Xl (Metoprolol Succinate) 50 Mg Tab.er.24h 100 Mg PO DAILY Hydralazine Hcl 25 Mg Tablet 50 Mg PO TID Cilostazol 50 Mg Tablet 50 Mg PO BID Xanax (Alprazolam) 0.5 Mg Tablet 0.5 Mg PO PRN Q6HRS PRN Ondansetron Odt (Ondansetron) 4 Mg Tab.rapdis 1 Tab PO PRN Q6-8HRS Nystop (Nystatin) 60 Gm Powder 1 Sally TP BID 30 Days Colace (Docusate Sodium) 100 Mg Capsule 100 Mg PO BID Senna-Time S Tablet (Sennosides/Docusate Sodium) 1 Each Tablet 1 Tab PO BID Nitrostat (Nitroglycerin) 0.4 Mg Tab.subl 0.4 Mg SL PRN Q5MIN PRN 30 Days Reported Lantus Solostar (Insulin Glargine,Hum.rec.anlog) 100 Unit/1 Ml Insuln.pen 75 Un it SQ BID Tizanidine Hcl 4 Mg Tablet 1 Tab PO TID Duloxetine Hcl 60 Mg Capsule.dr 60 Mg PO BID Trulicity (Dulaglutide) 0.75 Mg/0.5 Ml Pen.injctr 0.75 Mg SUBCUT QFR Amlodipine Besylate 5 Mg Tablet 5 Mg PO DAILY Ventolin Hfa Inhaler (Albuterol Sulfate) 18 Gm Hfa.aer.ad 2 Puff INH PRN Q4HRS PRN Duoneb 0.5-3(2.5) Mg/3 Ml (Albuterol/Ipratropium) 3 Ml Ampul.neb 3 Ml NEB PRN QID PRN Flonase Allergy Relief (Fluticasone Propionate) 9.9 Ml Kingsley.susp 2 Sprays NS PRN PRN Clonidine Hcl 0.1 Mg Tablet 1 Tab PO PRN PRN When SBP >150 Eliquis (Apixaban) 5 Mg Tablet 5 Mg PO BID Lyrica (Pregabalin) 150 Mg Capsule 1 Cap PO BID Atorvastatin Calcium 20 Mg Tablet 2 Tab PO HS Nexium Capsule (Esomeprazole Magnesium) 40 Mg Capsule.dr 1 Cap PO BID Aspirin 81 Mg Tab.chew 1 Tab PO DAILY Levothyroxine Sodium 50 Mcg Tablet 1 Tab PO DAILY Vitals/I & O Vital Sign - Last 24 Hours 04/24/19 04/24/19 04/24/19 04/24/19 08:00 08:00 09:00 09:39 Temp 98.5 98.5 Pulse 90 92 88 Resp 15 18 B/P (MAP) 167/76 (106) 166/82 (110) 178/78 Pulse Ox 96 95 O2 Delivery Bi-pap Venturi Mask Venturi Mask 04/24/19 04/24/19 04/24/19 04/24/19 09:44 10:00 11:00 12:00 Temp 98.6 98.6 Pulse 88 98 80 76 Resp 15 15 17 B/P (MAP) 178/78 180/78 (112) 170/78 (108) 168/77 (107) Pulse Ox 92 95 94 O2 Delivery Venturi Mask Venturi Mask Venturi Mask 04/24/19 04/24/19 04/24/19 04/24/19 12:00 12:18 13:00 15:00 Pulse 80 84 Resp 19 20 B/P (MAP) 184/91 (122) 188/77 (114) Pulse Ox 96 95 95 O2 Delivery Bi-pap Venturi Mask Venturi Mask Venturi Mask O2 Flow Rate 15.0 04/24/19 04/24/19 04/24/19 04/24/19 15:25 16:00 16:00 17:00 Pulse 80 84 84 Resp 21 17 B/P (MAP) 184/91 158/75 (102) 166/81 (109) Pulse Ox 93 96 O2 Delivery Venturi Mask Bi-pap Venturi Mask 04/24/19 04/24/19 04/24/19 04/24/19 17:05 17:33 18:00 19:00 Temp 98.2 98.2 Pulse 80 90 97 Resp 16 22 B/P (MAP) 184/91 175/79 (111) 161/75 (103) Pulse Ox 96 91 93 O2 Delivery Venturi Mask Venturi Mask Venturi Mask O2 Flow Rate 12.0 04/24/19 04/24/19 04/24/19 04/24/19 19:40 19:43 20:00 20:00 Temp 98.4 98.4 Pulse 90 Resp 20 20 B/P (MAP) 165/78 (107) Pulse Ox 94 40 94 O2 Delivery Venturi Mask Venturi Mask Venturi Mask Venturi Mask O2 Flow Rate 12.0 04/24/19 04/24/19 04/24/19 04/24/19 21:00 22:00 23:00 23:44 Pulse 93 94 86 87 Resp 17 16 23 B/P (MAP) 163/77 (105) 150/71 (97) 163/73 (103) 163/73 Pulse Ox 92 96 97 O2 Delivery Venturi Mask BiPAP/CPAP BiPAP/CPAP 04/24/19 04/24/19 04/25/19 04/25/19 23:49 23:54 00:00 01:00 Temp 98.2 98.2 Pulse 87 85 Resp 20 22 B/P (MAP) 163/73 (103) 174/76 (108) Pulse Ox 97 97 97 O2 Delivery BiPAP/CPAP Bi-pap BiPAP/CPAP BiPAP/CPAP 04/25/19 04/25/19 04/25/19 04/25/19 01:08 01:15 02:00 02:02 Pulse 86 91 Resp 20 20 B/P (MAP) 174/76 142/63 (89) Pulse Ox 96 96 96 O2 Delivery BiPAP/CPAP BiPAP/CPAP BiPAP/CPAP 04/25/19 04/25/19 04/25/19 04/25/19 02:32 03:00 03:40 03:55 Pulse 89 Resp 20 20 B/P (MAP) 157/69 (98) Pulse Ox 96 96 96 O2 Delivery BiPAP/CPAP BiPAP/CPAP BiPAP/CPAP Bi-pap 04/25/19 04/25/19 04/25/19 04/25/19 04:00 05:00 05:41 05:51 Temp 98.3 98.3 Pulse 88 88 91 Resp 20 20 B/P (MAP) 159/70 (99) 160/75 (103) 160/75 Pulse Ox 96 94 95 O2 Delivery BiPAP/CPAP BiPAP/CPAP BiPAP/CPAP 04/25/19 04/25/19 06:00 06:21 Pulse 97 93 Resp 17 B/P (MAP) 164/73 (103) 164/73 Pulse Ox 94 O2 Delivery Venturi Mask Intake and Output 04/24/19 04/24/19 04/25/19 15:00 23:00 07:00 Intake Total 300 ml 910 ml 770 ml Output Total 1145 ml 1000 ml 555 ml Balance -845 ml -90 ml 215 ml JUSTIN TAVAREZ MD Apr 25, 2019 07:55
[2019-04-25] MEDS: IPRATRPIUM/ALBUTEROL 0.5/2.5MG 3 ML NEBU. NEB SCH ×4 (07:56→19:54)
--- NOTE | 2019-04-25 08:08 | PDOC ---
Infectious Disease Note Subjective: Subjective pt says feels ok some chest discomfort ROS: ROS d/w rn Vital Signs: Vital Signs Vital Signs Date Time Temp Pulse Resp B/P (MAP) Pulse Ox O2 Delivery O2 Flow Rate FiO2 04/25/19 07:50 Venturi Mask 04/25/19 07:00 98.5 79 18 137/66 (89) 93 12.0 98.5 Physical Exam: PHYSICAL EXAM GEN alert awake,comfortable HEENT: Both pupils are round and reacting. No conjunctival lesion, no lesion in the mouth., NECK: Supple, LUNGS: dec bs at bases HEART: S1, S2 regular. ABDOMEN: Obese, Soft, nontender, no organomegaly. EXTREMITIES: Bilateral lower extremity edema present, erythema present and superficial ulceration of both the legs present. The patient does have a yeast infection in the groin. NEUROLOGIC: moves all 4 ext Medications: Inpatient Meds: Current Medications Medications (Trade) Dose Ordered Sig/Jesus Manuel Start Time Stop Time Status Last Admin Dose Admin Acetaminophen (Tylenol) 650 mg PRN Q6HRS PRN 04/20/19 16:00 Acetaminophen/ Hydrocodone Bitart (Lortab 10/325) 1 tab PRN Q6HRS PRN 04/20/19 11:00 Albuterol Sulfate (Ventolin Neb Soln) 2.5 mg PRN Q4HRS PRN 04/20/19 02:00 04/20/19 03:20 2.5 MG Albuterol/ Ipratropium (Duoneb) 3 ml RTQID 04/20/19 08:00 04/25/19 07:56 3 ML Alprazolam (Xanax) 0.5 mg PRN Q6HRS PRN 04/20/19 11:00 Amino Acids/ Glycerin/ Electrolytes 1,000 ml @ 60 mls/hr [id number] 04/24/19 11:00 04/25/19 04:44 60 MLS/HR Amlodipine Besylate (Norvasc) 5 mg DAILY 04/20/19 12:00 04/23/19 12:18 DC 04/23/19 08:07 5 MG Apixaban (Eliquis) 5 mg BID 04/20/19 12:00 04/25/19 08:01 DC 04/24/19 09:39 5 MG Aspirin (Children'S Aspirin) 81 mg DAILY 04/20/19 12:00 04/24/19 09:39 81 MG Atorvastatin Calcium (Lipitor) 40 mg HS 04/20/19 21:00 04/22/19 20:49 40 MG Cilostazol (Pletal) 50 mg BID 04/20/19 12:00 04/24/19 09:39 50 MG Clonidine HCl (Catapres Tts-1) 1 patch 1X ONCE 04/23/19 12:15 04/23/19 12:16 DC 04/23/19 13:05 1 PATCH Dextrose 1,000 ml @ 75 mls/hr [id number] 04/23/19 18:45 Dextrose (Dextrose 50%-Water Syringe) 12.5 gm PRN Q15MIN PRN 04/20/19 11:00 04/23/19 18:10 12.5 GM Duloxetine HCl (Cymbalta) 60 mg BID 04/20/19 12:00 04/21/19 08:10 DC 04/20/19 21:16 60 MG Enoxaparin Sodium (Lovenox Per Pharmacy Prophylaxis Dosing) 1 each PRN DAILY PRN 04/25/19 08:00 UNV Etomidate (Amidate) 30 mg 1X ONCE 04/19/19 21:40 04/19/19 22:39 DC 04/19/19 21:38 30 MG Famotidine (Pepcid Vial) 20 mg DAILY 04/21/19 09:00 Cancel Fluconazole/ Sodium Chloride 100 ml @ 100 mls/hr Q24H 04/21/19 14:00 04/24/19 15:24 100 MLS/HR Fluticasone Propionate (Flonase) 2 spray PRN DAILY PRN 04/20/19 12:00 04/21/19 17:30 2 SPRAY Furosemide (Lasix) 20 mg 1X ONCE 04/21/19 11:45 04/21/19 11:48 DC 04/21/19 11:49 20 MG Heparin Sodium (Porcine) (Heparin Sodium) 5,000 unit Q8HRS 04/20/19 14:00 04/20/19 14:00 DC Hydralazine HCl (Apresoline Inj) 10 mg PRN Q6HRS PRN 04/23/19 20:15 04/25/19 01:08 10 MG Hydralazine HCl (Apresoline) 50 mg TID 04/20/19 14:00 04/24/19 09:39 50 MG Info (Anti-Coagulation Monitoring By Pharmacy) 1 each PRN DAILY PRN 04/22/19 08:15 04/23/19 08:51 1 EACH Insulin Glargine (Lantus) 75 units BID 04/20/19 12:00 04/23/19 08:31 75 UNITS Insulin Human Lispro (HumaLOG) 30 units Q6HRS 04/20/19 12:00 04/23/19 13:02 30 UNITS Ipratropium [place] (Atrovent) 0.5 mg 1X ONCE 04/19/19 21:00 04/19/19 21:01 DC 04/19/19 21:00 0.5 MG Labetalol HCl (Normodyne Iv Push) 20 mg PRN Q2HR PRN 04/24/19 08:00 04/25/19 06:21 20 MG Levothyroxine Sodium (Synthroid) 50 mcg DAILY06 04/20/19 12:00 04/23/19 05:56 50 MCG Linezolid/Dextrose 300 ml @ 300 mls/hr Q12HR 04/21/19 14:00 04/24/19 20:35 300 MLS/HR Meropenem 500 mg/ Sodium Chloride 50 ml @ 100 mls/hr Q8HRS 04/23/19 14:00 04/25/19 05:49 100 MLS/HR Methylprednisolone Sodium Succinate (SOLU-Medrol 125MG VIAL) 250 mg 1X ONCE 04/19/19 21:00 04/19/19 21:01 DC 04/19/19 21:08 250 MG Metoprolol Succinate (Toprol Xl) 100 mg DAILY 04/20/19 12:00 Cancel Metoprolol Tartrate (Lopressor) 50 mg BID 04/20/19 12:30 04/24/19 09:44 50 MG Midazolam HCl (Versed) 5 mg 1X ONCE 04/19/19 22:45 04/19/19 22:46 DC 04/19/19 22:23 5 MG Morphine Sulfate (Morphine Sulfate) 1 mg PRN Q1HR PRN 04/24/19 19:30 04/25/19 02:02 1 MG Nicardipine HCl 50 mg/Sodium Chloride 250 ml @ 25 mls/hr CONT PRN 04/23/19 12:15 Nitroglycerin (Nitro-Bid Oint) 1 inch Q6HRS 04/24/19 18:00 Cancel Nitroglycerin (Nitrostat) 0.4 mg PRN Q5MIN PRN 04/20/19 11:00 04/24/19 15:14 DC Non-Formulary Medication 1 ea PRN Q3HRS PRN 04/24/19 20:30 Cancel Nystatin (Nystop) 1 eric BID 04/20/19 12:00 04/24/19 20:36 1 ERIC Pantoprazole Sodium (PROTONIX VIAL for IV PUSH) 40 mg DAILYAC 04/21/19 07:30 04/24/19 09:40 40 MG Pantoprazole Sodium (Protonix) 40 mg DAILYAC 04/20/19 12:00 04/20/19 12:00 DC Piperacillin Sod/ Tazobactam Sod (Zosyn Per Pharmacy) 1 each PRN DAILY PRN 04/20/19 10:00 04/23/19 09:00 DC Piperacillin Sod/ Tazobactam Sod 2.25 gm/Sodium Chloride 50 ml @ 100 mls/hr Q6HRS 04/20/19 12:00 04/23/19 07:46 DC 04/23/19 05:56 100 MLS/HR Pregabalin (Lyrica) 150 mg BID 04/20/19 12:00 04/24/19 09:39 150 MG Propofol 50 ml @ 1.551 mls/ hr 1X ONCE 04/19/19 21:40 04/21/19 05:54 DC 04/19/19 21:47 3.103 MLS/HR Sodium Bicarbonate (Sodium Bicarb Adult 8.4% Syr) 50 meq 1X ONCE 04/20/19 11:00 04/20/19 11:11 DC 04/20/19 11:11 50 MEQ Tizanidine HCl (Zanaflex) 4 mg PRN Q8HRS PRN 04/20/19 11:00 Vecuronium [place] (Norcuron Bolus) 20 mg 1X ONCE 04/19/19 21:40 04/19/19 22:39 DC 04/19/19 21:39 20 MG Venlafaxine HCl (Effexor) 50 mg TID 04/21/19 09:00 04/24/19 09:43 50 MG Labs: Lab Laboratory Tests Test 04/24/19 08:35 04/24/19 09:55 04/24/19 11:00 04/24/19 12:29 O2 Saturation 94 % (92-99) Arterial Blood pH 7.45 (7.35-7.45) Arterial Blood pCO2 at Patient Temp 46 mmHg (35-46) Arterial Blood pO2 at Patient Temp 73 mmHg (75-108) Arterial Blood HCO3 31 mmol/L (21-28) Arterial Blood Base Excess 7 mmol/L (-3-3) FiO2 40 Glucose (Fingerstick) 70 mg/dL (70-99) 127 mg/dL (70-99) Troponin I Quantitative 0.119 ng/mL (0.000-0.055) Test 04/24/19 16:44 04/24/19 17:27 04/24/19 20:42 04/25/19 04:00 Troponin I Quantitative 0.135 ng/mL (0.000-0.055) Glucose (Fingerstick) 126 mg/dL (70-99) 141 mg/dL (70-99) Sodium Level 144 mmol/L (136-145) Potassium Level 4.5 mmol/L (3.5-5.1) Chloride Level 105 mmol/L (98-107) Carbon Dioxide Level 30 mmol/L (21-32) Anion Gap 9 (6-14) Blood Urea Nitrogen 28 mg/dL (7-20) Creatinine 1.2 mg/dL (0.6-1.0) Estimated GFR (Cockcroft-Gault) 46.5 Glucose Level 162 mg/dL (70-99) Calcium Level 8.6 mg/dL (8.5-10.1) Micro cult reviewed Objective: Assessment: 1. Healthcare facility associated pneumonia may have been possible aspiration. 2. Acute Respiratory failure. 3. Renal insufficiency. 4. Urinary tract infection.UC 20-50 K of possible ESBL Klebsiella 5. Diabetes. 6. Hypertension. 7. Chronic obstructive pulmonary disease. 8. Congestive heart failure. 9. Coronary artery disease. 10. Atrial fibrillation. 11. Leucocytosis 12.Loose bm C diff neg 04/23 Plan: Plan of Care cont Merrem continue Zyvox and Diflucan. f/u c/s and labs Overall, long-term prognosis is poor. D/W LAVELL JAMES MD Apr 25, 2019 08:08
[2019-04-25] MEDS: NYSTATIN TOPICAL POWDER 15GM BOTTLE. TP SCH ×2 (08:25→21:29)
[2019-04-25] MEDS: PANTOPRAZOLE IV PUSH 40 MG VIAL. IVP SCH (08:25)
[2019-04-25] MEDS: INSULIN GLARGINE 300 UNITS/3 ML INSULN.PEN. SQ SCH ×2 (09:00→21:00)
[2019-04-25] MEDS: VENLAFAXINE 50 MG TABLET. NG SCH ×3 (09:00→21:11)
[2019-04-25] MEDS: ANTI-COAG MONITOR BY PHARMACY. MC PRN (09:35)
[2019-04-25] MEDS: IV DEXTROSE 10% 1,000 ML IV SCH (10:45)
--- NOTE | 2019-04-25 11:34 | PDOC ---
PULMONARY PROGRESS NOTES Subjective extubated 04/23 still weak, cough not strong used BIPAP at night Vitals Vital Signs Date Time Temp Pulse Resp B/P (MAP) Pulse Ox O2 Delivery O2 Flow Rate FiO2 04/25/19 10:00 88 16 159/76 (103) 97 Venturi Mask 04/25/19 08:01 12.0 04/25/19 07:00 98.5 98.5 General: No acute distress, Lethargic Lungs: Other (decrease bs) Cardiovascular: S1, S2 Abdomen: Soft, Non-tender, Other Extremities: Other (1+edema) Skin: Warm Labs Laboratory Tests Test 04/23/19 12:45 04/23/19 18:05 04/23/19 18:41 04/23/19 21:10 Glucose (Fingerstick) 133 mg/dL (70-99) 46 mg/dL (70-99) 84 mg/dL (70-99) 103 mg/dL (70-99) Test 04/23/19 23:53 04/24/19 04:45 04/24/19 08:35 04/24/19 09:55 Glucose (Fingerstick) 151 mg/dL (70-99) 70 mg/dL (70-99) White Blood Count 14.2 x10^3/uL (4.0-11.0) Red Blood Count 3.57 x10^6/uL (3.50-5.40) Hemoglobin 9.6 g/dL (12.0-15.5) Hematocrit 30.5 % (36.0-47.0) Mean Corpuscular Volume 86 fL (79-100) Mean Corpuscular Hemoglobin 27 pg (25-35) Mean Corpuscular Hemoglobin Concent 32 g/dL (31-37) Red Cell Distribution Width 17.1 % (11.5-14.5) Platelet Count 354 x10^3/uL (140-400) Neutrophils (%) (Auto) 66 % (31-73) Lymphocytes (%) (Auto) 16 % (24-48) Monocytes (%) (Auto) 12 % (0-9) Eosinophils (%) (Auto) 6 % (0-3) Basophils (%) (Auto) 1 % (0-3) Neutrophils # (Auto) 9.4 x10^3/uL (1.8-7.7) Lymphocytes # (Auto) 2.2 x10^3/uL (1.0-4.8) Monocytes # (Auto) 1.7 x10^3/uL (0.0-1.1) Eosinophils # (Auto) 0.8 x10^3/uL (0.0-0.7) Basophils # (Auto) 0.1 x10^3/uL (0.0-0.2) Sodium Level 147 mmol/L (136-145) Potassium Level 4.1 mmol/L (3.5-5.1) Chloride Level 107 mmol/L (98-107) Carbon Dioxide Level 31 mmol/L (21-32) Anion Gap 9 (6-14) Blood Urea Nitrogen 29 mg/dL (7-20) Creatinine 1.2 mg/dL (0.6-1.0) Estimated GFR (Cockcroft-Gault) 46.5 BUN/Creatinine Ratio 24 (6-20) Glucose Level 86 mg/dL (70-99) Calcium Level 9.0 mg/dL (8.5-10.1) Total Bilirubin 0.3 mg/dL (0.2-1.0) Aspartate Amino Transf (AST/SGOT) 16 U/L (15-37) Alanine Aminotransferase (ALT/SGPT) 23 U/L (14-59) Alkaline Phosphatase 122 U/L (46-116) Total Protein 7.1 g/dL (6.4-8.2) Albumin 2.6 g/dL (3.4-5.0) Albumin/Globulin Ratio 0.6 (1.0-1.7) O2 Saturation 94 % (92-99) Arterial Blood pH 7.45 (7.35-7.45) Arterial Blood pCO2 at Patient Temp 46 mmHg (35-46) Arterial Blood pO2 at Patient Temp 73 mmHg (75-108) Arterial Blood HCO3 31 mmol/L (21-28) Arterial Blood Base Excess 7 mmol/L (-3-3) FiO2 40 Test 04/24/19 11:00 04/24/19 12:29 04/24/19 16:44 04/24/19 17:27 Troponin I Quantitative 0.119 ng/mL (0.000-0.055) 0.135 ng/mL (0.000-0.055) Glucose (Fingerstick) 127 mg/dL (70-99) 126 mg/dL (70-99) Test 04/24/19 20:42 04/25/19 04:00 04/25/19 09:03 Glucose (Fingerstick) 141 mg/dL (70-99) 154 mg/dL (70-99) Sodium Level 144 mmol/L (136-145) Potassium Level 4.5 mmol/L (3.5-5.1) Chloride Level 105 mmol/L (98-107) Carbon Dioxide Level 30 mmol/L (21-32) Anion Gap 9 (6-14) Blood Urea Nitrogen 28 mg/dL (7-20) Creatinine 1.2 mg/dL (0.6-1.0) Estimated GFR (Cockcroft-Gault) 46.5 Glucose Level 162 mg/dL (70-99) Calcium Level 8.6 mg/dL (8.5-10.1) Laboratory Tests Test 04/24/19 12:29 04/24/19 16:44 04/24/19 17:27 04/24/19 20:42 Glucose (Fingerstick) 127 mg/dL (70-99) 126 mg/dL (70-99) 141 mg/dL (70-99) Troponin I Quantitative 0.135 ng/mL (0.000-0.055) Test 04/25/19 04:00 04/25/19 09:03 Sodium Level 144 mmol/L (136-145) Potassium Level 4.5 mmol/L (3.5-5.1) Chloride Level 105 mmol/L (98-107) Carbon Dioxide Level 30 mmol/L (21-32) Anion Gap 9 (6-14) Blood Urea Nitrogen 28 mg/dL (7-20) Creatinine 1.2 mg/dL (0.6-1.0) Estimated GFR (Cockcroft-Gault) 46.5 Glucose Level 162 mg/dL (70-99) Calcium Level 8.6 mg/dL (8.5-10.1) Glucose (Fingerstick) 154 mg/dL (70-99) Medications Active Scripts Medications Dose Route/Sig Max Daily Dose Days Date Category Dose Instructions Humalog (Insulin Lispro) 100 Unit/1 Ml Insuln.pen 30 Units SQ TIDWMEALS 30 04/15/19 Rx Toprol Xl (Metoprolol Succinate) 50 Mg Tab.er.24h 100 Mg PO DAILY 04/15/19 Rx Hydralazine Hcl 25 Mg Tablet 50 Mg PO TID 04/15/19 Rx Cilostazol 50 Mg Tablet 50 Mg PO BID 04/15/19 Rx Xanax (Alprazolam) 0.5 Mg Tablet 0.5 Mg PO PRN Q6HRS PRN 04/15/19 Rx Lantus Solostar (Insulin Glargine,Hum.rec.anlog) 100 Unit/1 Ml Insuln.pen 75 Unit SQ BID 12/28/18 Reported Ondansetron Odt (Ondansetron) 4 Mg Tab.rapdis 1 Tab PO PRN Q6-8HRS 10/23/18 Rx Tizanidine Hcl 4 Mg Tablet 1 Tab PO TID 10/13/18 Reported Nystop (Nystatin) 60 Gm Powder 1 Sally TP BID 30 09/02/18 Rx Duloxetine Hcl 60 Mg Capsule.dr 60 Mg PO BID 10/26/17 Reported Trulicity (Dulaglutide) 0.75 Mg/0.5 Ml Pen.injctr 0.75 Mg SUBCUT QFR 10/26/17 Reported Amlodipine Besylate 5 Mg Tablet 5 Mg PO DAILY 10/26/17 Reported Colace (Docusate Sodium) 100 Mg Capsule 100 Mg PO BID 03/24/17 Rx Senna-Time S Tablet (Sennosides/Docusate Sodium) 1 Each Tablet 1 Tab PO BID 03/24/17 Rx Ventolin Hfa Inhaler (Albuterol Sulfate) 18 Gm Hfa.aer.ad 2 Puff INH PRN Q4HRS PRN 03/19/17 Reported Duoneb 0.5-3(2.5) Mg/3 Ml (Albuterol/Ipratropium) 3 Ml Ampul.neb 3 Ml NEB PRN QID PRN 03/19/17 Reported Flonase Allergy Relief (Fluticasone Propionate) 9.9 Ml [place].susp 2 Sprays NS PRN PRN 03/19/17 Reported Clonidine Hcl 0.1 Mg Tablet 1 Tab PO PRN PRN 03/19/17 Reported When SBP >150 Eliquis (Apixaban) 5 Mg Tablet 5 Mg PO BID 03/19/17 Reported Lyrica (Pregabalin) 150 Mg Capsule 1 Cap PO BID 10/07/16 Reported Atorvastatin Calcium 20 Mg Tablet 2 Tab PO HS 10/06/16 Reported Nexium Capsule (Esomeprazole Magnesium) 40 Mg Capsule.dr 1 Cap PO BID 10/06/16 Reported Aspirin 81 Mg Tab.chew 1 Tab PO DAILY 10/06/16 Reported Nitrostat (Nitroglycerin) 0.4 Mg Tab.subl 0.4 Mg SL PRN Q5MIN PRN 30 05/02/16 Rx Levothyroxine Sodium 50 Mcg Tablet 1 Tab PO DAILY 10/22/15 Reported Comments CXR 04/23 CHF/ mild Impression . 1. [id number] hypercapnic respiratory failure. The etiology related to suspected right heart failure. Cannot exclude right lower lobe pneumonia. extubated 04/23 2. Underlying obesity hypoventilation syndrome/obstructive sleep apnea, on home BiPAP and oxygen at 3 L. 3. Abnormal chest x-ray consistent with mild congestive heart failure, probably diastolic as she has grade 2 diastolic dysfunction. 4. Lower extremity edema. 5. Chronic kidney disease with recent increase during her previous hospitalization. 6. Minimal history of tobacco use. 7. metabolic acidosis combined with respiratory acidosis POA. corrected. Plan . 1. VM 2. BIPAP qhs and prn 3. f/u cxr as needed 4. empiric antibiotic. 5. procalcitonin level 0.24 6. Monitor renal function. 7. lasix prn 8. DVT prophylaxis. 9. Stress ulcer prophylaxis. 10. PT/ Speech eval/ not ready for swallow 11. Discussed with RN, ROBERT SANDOVAL MD Apr 25, 2019 11:33
--- NOTE | 2019-04-25 12:10 | PDOC ---
SUBJECTIVE ROS Sitting in chair , stable, no concerns voiced by RN OBJECTIVE Vital Signs Vital Signs Date Time Temp Pulse Resp B/P (MAP) Pulse Ox O2 Delivery O2 Flow Rate FiO2 04/25/19 10:00 88 16 159/76 (103) 97 Venturi Mask 04/25/19 08:01 12.0 04/25/19 07:00 98.5 98.5 I & 0 Intake and Output 04/25/19 07:00 Intake Total 1980 ml Output Total 2800 ml Balance -820 ml IV Total 1980 ml Output Urine Total 2800 ml PHYSICAL EXAM Physical Exam GENERAL: venturi mask HEENT: Sclerae nonicteric. NECK: Supple. LUNGS: Diminished breath sounds. CARDIOVASCULAR: Regular rate and rhythm. ABDOMEN: Soft, nontender EXTREMITIES:No pitting edema, changes of CVI+ Mcgee + DIAGNOSIS/ASSESSMENT Assessment & Plan JENNIFER - ATN renal function at baseline now Normal 04/02/19 E-Lytes stable , Supportive care, Monitor Hypernatremia- resolved Recurrent UTI- ID following CKD stage 3- Follows with Dr. Santana,Last office visit 01/2018 Cr ranging from 1.0- 1.5 since 2017 Labs at [facility] Cr 1.4-2.1 Anemia- Hgb stable Acute hypercapnic respiratory failure: Intubated and On MV Plan to extubate today Healthcare facility associated pneumonia may have been possible aspiration. CHF with diastolic dysfunction and CAD - preserved ejection fraction on a recent echocardiogram. HTN - BP high , antihypertensives Paroxysmal atrial fibrillation: Presently in sinus rhythm. On Eliquis and her beta-ryanne. Diabetes mellitus type 2, insulin dependent Peripheral artery disease: diagnosed on her last admission,medical management was advised Chr lymphedema Will sign off COMMENT/RELEVANT DATA Meds Current Medications Medications (Trade) Dose Ordered Sig/Jesus Manuel Start Time Stop Time Status Last Admin Dose Admin Acetaminophen (Tylenol) 650 mg PRN Q6HRS PRN 04/20/19 16:00 Acetaminophen/ Hydrocodone Bitart (Lortab 10/325) 1 tab PRN Q6HRS PRN 04/20/19 11:00 Albuterol Sulfate (Ventolin Neb Soln) 2.5 mg PRN Q4HRS PRN 04/20/19 02:00 04/20/19 03:20 2.5 MG Albuterol/ Ipratropium (Duoneb) 3 ml RTQID 04/20/19 08:00 04/25/19 07:56 3 ML Alprazolam (Xanax) 0.5 mg PRN Q6HRS PRN 04/20/19 11:00 Amino Acids/ Glycerin/ Electrolytes 1,000 ml @ 60 mls/hr [id number] 04/24/19 11:00 04/25/19 04:44 60 MLS/HR Amlodipine Besylate (Norvasc) 5 mg DAILY 04/20/19 12:00 04/23/19 12:18 DC 04/23/19 08:07 5 MG Apixaban (Eliquis) 5 mg BID 04/20/19 12:00 04/25/19 08:01 DC 04/24/19 09:39 5 MG Aspirin (Children'S Aspirin) 81 mg DAILY 04/20/19 12:00 04/24/19 09:39 81 MG Atorvastatin Calcium (Lipitor) 40 mg HS 04/20/19 21:00 04/22/19 20:49 40 MG Cilostazol (Pletal) 50 mg BID 04/20/19 12:00 04/24/19 09:39 50 MG Clonidine HCl (Catapres Tts-1) 1 patch 1X ONCE 04/23/19 12:15 04/23/19 12:16 DC 04/23/19 13:05 1 PATCH Dextrose 1,000 ml @ 75 mls/hr [id number] 04/23/19 18:45 04/25/19 10:47 DC Dextrose (Dextrose 50%-Water Syringe) 12.5 gm PRN Q15MIN PRN 04/20/19 11:00 04/23/19 18:10 12.5 GM Duloxetine HCl (Cymbalta) 60 mg BID 04/20/19 12:00 04/21/19 08:10 DC 04/20/19 21:16 60 MG Enoxaparin Sodium (Lovenox 60mg Syringe) 60 mg Q12HR 04/25/19 08:00 04/25/19 08:24 60 MG Enoxaparin Sodium (Lovenox Per Pharmacy Prophylaxis Dosing) 1 each PRN DAILY PRN 04/25/19 08:00 Etomidate (Amidate) 30 mg 1X ONCE 04/19/19 21:40 04/19/19 22:39 DC 04/19/19 21:38 30 MG Famotidine (Pepcid Vial) 20 mg DAILY 04/21/19 09:00 Cancel Fluconazole/ Sodium Chloride 100 ml @ 100 mls/hr Q24H 04/21/19 14:00 04/24/19 15:24 100 MLS/HR Fluticasone Propionate (Flonase) 2 spray PRN DAILY PRN 04/20/19 12:00 04/21/19 17:30 2 SPRAY Furosemide (Lasix) 20 mg 1X ONCE 04/21/19 11:45 04/21/19 11:48 DC 04/21/19 11:49 20 MG Heparin Sodium (Porcine) (Heparin Sodium) 5,000 unit Q8HRS 04/20/19 14:00 04/20/19 14:00 DC Hydralazine HCl (Apresoline Inj) 10 mg PRN Q6HRS PRN 04/23/19 20:15 04/25/19 01:08 10 MG Hydralazine HCl (Apresoline) 50 mg TID 04/20/19 14:00 04/24/19 09:39 50 MG Info (Anti-Coagulation Monitoring By Pharmacy) 1 each PRN DAILY PRN 04/22/19 08:15 04/25/19 09:35 1 EACH Insulin Glargine (Lantus) 75 units BID 04/20/19 12:00 04/23/19 08:31 75 UNITS Insulin Human Lispro (HumaLOG) 30 units Q6HRS 04/20/19 12:00 04/23/19 13:02 30 UNITS Ipratropium [place] (Atrovent) 0.5 mg 1X ONCE 04/19/19 21:00 04/19/19 21:01 DC 04/19/19 21:00 0.5 MG Labetalol HCl (Normodyne Iv Push) 20 mg PRN Q2HR PRN 04/24/19 08:00 04/25/19 06:21 20 MG Levothyroxine Sodium (Synthroid) 50 mcg DAILY06 04/20/19 12:00 04/23/19 05:56 50 MCG Linezolid/Dextrose 300 ml @ 300 mls/hr Q12HR 04/21/19 14:00 04/25/19 08:24 300 MLS/HR Meropenem 500 mg/ Sodium Chloride 50 ml @ 100 mls/hr Q8HRS 04/23/19 14:00 04/25/19 05:49 100 MLS/HR Methylprednisolone Sodium Succinate (SOLU-Medrol 125MG VIAL) 250 mg 1X ONCE 04/19/19 21:00 04/19/19 21:01 DC 04/19/19 21:08 250 MG Metoprolol Succinate (Toprol Xl) 100 mg DAILY 04/20/19 12:00 Cancel Metoprolol Tartrate (Lopressor) 50 mg BID 04/20/19 12:30 04/24/19 09:44 50 MG Midazolam HCl (Versed) 5 mg 1X ONCE 04/19/19 22:45 04/19/19 22:46 DC 04/19/19 22:23 5 MG Morphine Sulfate (Morphine Sulfate) 1 mg PRN Q1HR PRN 04/24/19 19:30 04/25/19 02:02 1 MG Nicardipine HCl 50 mg/Sodium Chloride 250 ml @ 25 mls/hr CONT PRN 04/23/19 12:15 Nitroglycerin (Nitro-Bid Oint) 1 inch Q6HRS 04/24/19 18:00 Cancel Nitroglycerin (Nitrostat) 0.4 mg PRN Q5MIN PRN 04/20/19 11:00 04/24/19 15:14 DC Non-Formulary Medication 1 ea PRN Q3HRS PRN 04/24/19 20:30 Cancel Nystatin (Nystop) 1 eric BID 04/20/19 12:00 04/25/19 08:25 1 ERIC Pantoprazole Sodium (PROTONIX VIAL for IV PUSH) 40 mg DAILYAC 04/21/19 07:30 04/25/19 08:25 40 MG Pantoprazole Sodium (Protonix) 40 mg DAILYAC 04/20/19 12:00 04/20/19 12:00 DC Piperacillin Sod/ Tazobactam Sod (Zosyn Per Pharmacy) 1 each PRN DAILY PRN 04/20/19 10:00 04/23/19 09:00 DC Piperacillin Sod/ Tazobactam Sod 2.25 gm/Sodium Chloride 50 ml @ 100 mls/hr Q6HRS 04/20/19 12:00 04/23/19 07:46 DC 04/23/19 05:56 100 MLS/HR Pregabalin (Lyrica) 150 mg BID 04/20/19 12:00 04/24/19 09:39 150 MG Propofol 50 ml @ 1.551 mls/ hr 1X ONCE 04/19/19 21:40 04/21/19 05:54 DC 04/19/19 21:47 3.103 MLS/HR Sodium Bicarbonate (Sodium Bicarb Adult 8.4% Syr) 50 meq 1X ONCE 04/20/19 11:00 04/20/19 11:11 DC 04/20/19 11:11 50 MEQ Tizanidine HCl (Zanaflex) 4 mg PRN Q8HRS PRN 04/20/19 11:00 Vecuronium [place] (Norcuron Bolus) 20 mg 1X ONCE 04/19/19 21:40 04/19/19 22:39 DC 04/19/19 21:39 20 MG Venlafaxine HCl (Effexor) 50 mg TID 04/21/19 09:00 04/24/19 09:43 50 MG Lab Laboratory Tests Test 04/24/19 12:29 04/24/19 16:44 04/24/19 17:27 04/24/19 20:42 Glucose (Fingerstick) 127 mg/dL (70-99) 126 mg/dL (70-99) 141 mg/dL (70-99) Troponin I Quantitative 0.135 ng/mL (0.000-0.055) Test 04/25/19 04:00 04/25/19 09:03 Sodium Level 144 mmol/L (136-145) Potassium Level 4.5 mmol/L (3.5-5.1) Chloride Level 105 mmol/L (98-107) Carbon Dioxide Level 30 mmol/L (21-32) Anion Gap 9 (6-14) Blood Urea Nitrogen 28 mg/dL (7-20) Creatinine 1.2 mg/dL (0.6-1.0) Estimated GFR (Cockcroft-Gault) 46.5 Glucose Level 162 mg/dL (70-99) Calcium Level 8.6 mg/dL (8.5-10.1) Glucose (Fingerstick) 154 mg/dL (70-99) Results All relevant outside records, renal labs, imaging studies, telemetry/EKG's were reviewed. EVERTON HE MD Apr 25, 2019 12:10
[2019-04-25] MEDS: FLUCONAZOLE 200MG/100ML PREMIX 100 ML IV SCH (12:34)
--- NOTE | 2019-04-25 12:40 | PDOC ---
VIOLETTE ESCOBAR RESEARCH GEOLOGIST 04/25/19 1240: CARDIO Progress Notes Date and Time Date of Service 04/25/2019 Time of Evaluation 1210 Subjective Subjective: No Chest Pain, No Palpitations, Other (SOA better) Vitals Vitals Vital Signs Date Time Temp Pulse Resp B/P (MAP) Pulse Ox O2 Delivery O2 Flow Rate FiO2 04/25/19 12:34 91 165/88 04/25/19 12:16 95 Venturi Mask 12.0 04/25/19 10:00 16 04/25/19 07:00 98.5 98.5 Weight Weight [ ] Input and Output Intake and Output Intake and Output 04/25/19 07:00 Intake Total 1980 ml Output Total 2800 ml Balance -820 ml IV Total 1980 ml Output Urine Total 2800 ml Laboratory Labs Laboratory Tests Test 04/24/19 16:44 04/24/19 17:27 04/24/19 20:42 04/25/19 04:00 Troponin I Quantitative 0.135 ng/mL (0.000-0.055) Glucose (Fingerstick) 126 mg/dL (70-99) 141 mg/dL (70-99) Sodium Level 144 mmol/L (136-145) Potassium Level 4.5 mmol/L (3.5-5.1) Chloride Level 105 mmol/L (98-107) Carbon Dioxide Level 30 mmol/L (21-32) Anion Gap 9 (6-14) Blood Urea Nitrogen 28 mg/dL (7-20) Creatinine 1.2 mg/dL (0.6-1.0) Estimated GFR (Cockcroft-Gault) 46.5 Glucose Level 162 mg/dL (70-99) Calcium Level 8.6 mg/dL (8.5-10.1) Test 04/25/19 09:03 Glucose (Fingerstick) 154 mg/dL (70-99) Microbiology Micro Microbiology 04/21/19 - Final, Complete 04/21/19 - Final, Complete 04/21/19 - Final, Complete 04/21/19 Gram Stain Evaluation - Final, Complete 04/21/19 Sputum Culture - Final, Complete 04/21/19 Sputum Result 1 - Final, Complete 04/20/19 Urine Culture - Final, Complete 04/20/19 Urine Culture Result 1 (CANDACE) - Final, Complete 04/20/19 Antimicrobic Susceptibility - Final, Complete Physical Exam HEENT: Neck Supple W Full Motion Chest: Symmetric LUNGS: Other (diminisehd upper rhonchi) Heart: RRR (SR) Abdomen: Soft N/T, Other (obese) Extremities: Other (trace to 1+ bilateral LE ) Neurology: alert, oriented, follow commands Assessment Assessment 1. Acute on chronic respiratory failure with decompensated diastolic CHF, pneumonia, MARY. Pulmonary following 2. Acute on chronic diastolic CHF 3. Chest pain: likely from bronchospasm, none today 4. CAD: past PCI/stent to the RCA and most recent PCI/stent to the LAD in 2017 5. JENNIFER on CKD3: back to her baseline, nephrology following 6. Elevated troponin: Trop peaked at 0.1 EKG SR without acute changes. Suspect demand mediated with above culprits, type 2 7. HTN urgency: improving 8. HLP 9. DM2 with hypoglycemic episode 10. Hx of PE/DVT 11. PAFIB: maintaining SR 12. Morbid obesity Recommendations 1. Post extubation 04/23, failed swallow eval. Bipap at hs and PRN. Will need her home bipap when transferred back to facility 2. PO meds on hold. Lovenox for now then eliquis once swallowing is allowed. C ontinue with NTG paste. Lopressor IV. Hydralazine IV PRN 3. Resume secondary prevention measures once PO is tolerated 4. Follow up in office and will consider for outpt ischemic evaluation. SELINA ENCARNACION MD 04/25/19 1617: CARDIO Progress Notes Assessment Assessment Patient seen and examined. Agree with PRECISION ASSEMBLER BENCH's assessment and plan. Acute respiratory failure secondary to combination of obesity hypoventilation and acute on chronic diastolic heart failure Acute on chronic diastolic heart failure improving with diuresis. Pulmonary team following. PAF, maintaining sinus rhythm. Slight troponin elevation probably demand ischemia. We will consider ischemic evaluation as an outpatient. VIOLETTE ESCOBAR RESEARCH GEOLOGIST Apr 25, 2019 12:40 SELINA ENCARNACION MD Apr 25, 2019 16:17
[2019-04-25] MEDS: METOPROLOL TARTRATE 5 MG/5 ML VIAL. IVP SCH ×3 (14:35→23:44)
--- NOTE | 2019-04-25 15:04 | RAD ---
EXAM: Abdomen, single view. HISTORY: Dobbhoff placement. COMPARISON: 04/23/2019 FINDINGS: A frontal view of the upper abdomen is obtained. There is enteric feeding catheter within the distal stomach there are suspected small pleural effusions with basilar atelectasis or interstitial infiltrate. IMPRESSION: Enteric catheter with the tip in the distal stomach. Electronically signed by: Priti Selby MD (04/25/2019 3:01 PM) [facility]
[2019-04-25] MEDS: CILOSTAZOL 50 MG TABLET. PO SCH ×2 (15:24→22:15)
[2019-04-25] MEDS: PREGABALIN 75 MG CAPSULE PO SCH ×2 (15:24→21:12)
[2019-04-25] MEDS: ASPIRIN CHEWABLE 81 MG TABLET. PO SCH (15:24)
[2019-04-25] MEDS: ATORVASTATIN CALCIUM 20 MG TABLET PO SCH (21:12)
[2019-04-26] VITALS (17 sets, daily range): BP systolic 125–191; BP diastolic 62–92
[2019-04-26] MEDS: MORPHINE SULFATE 2 MG/ML VIAL. IV PRN (03:05)
[2019-04-26 05:19] LABS: HEMATOCRIT 28.2 % (36.0-47.0); RED BLOOD COUNT 3.32 x10^6/uL (3.50-5.40); WHITE BLOOD COUNT 11.5 x10^3/uL (4.0-11.0)
[2019-04-26 05:27] LABS: CALCIUM 8.9 mg/dL (8.5-10.1); CREATININE 1.3 mg/dL (0.6-1.0); GFR 42.4; POTASSIUM 4.2 mmol/L (3.5-5.1)
[2019-04-26] MEDS: LEVOTHYROXINE 50 MCG TABLET PO SCH (05:49)
[2019-04-26] MEDS: NITROGLYCERIN OINT 1 GM PACKET. TP SCH ×2 (05:49→12:06)
[2019-04-26] MEDS: MEROPENEM 500 MG in IV NORMAL SALINE 50ML 50 ML IV SCH ×3 (05:49→22:25)
[2019-04-26] MEDS: METOPROLOL TARTRATE 5 MG/5 ML VIAL. IVP SCH ×2 (05:50→12:05)
[2019-04-26] MEDS: INSULIN LISPRO 300 UNITS/3 ML INSULN.PEN. SQ SCH ×4 (05:51→17:16)
[2019-04-26] MEDS: IPRATRPIUM/ALBUTEROL 0.5/2.5MG 3 ML NEBU. NEB SCH ×4 (07:07→19:49)
--- NOTE | 2019-04-26 07:15 | PDOC ---
Infectious Disease Note Subjective: Subjective pt says feels better did well on bipap last night currently on ventimask denies any f/c/n/v/d/abdo pain ROS: ROS Negative except for above. Vital Signs: Vital Signs Vital Signs Date Time Temp Pulse Resp B/P (MAP) Pulse Ox O2 Delivery O2 Flow Rate FiO2 04/26/19 06:00 86 16 146/71 (96) 94 Venturi Mask 04/26/19 04:00 99.3 99.3 04/25/19 19:51 9.0 Physical Exam: PHYSICAL EXAM GEN alert awake,comfortable HEENT: Both pupils are round and reacting. No conjunctival lesion, no lesion in the mouth., NECK: Supple, LUNGS: dec bs at bases HEART: S1, S2 regular. ABDOMEN: Obese, Soft, nontender, no organomegaly. EXTREMITIES: Bilateral lower extremity edema present, erythema present and superficial ulceration of both the legs present. The patient does have a yeast infection in the groin. NEUROLOGIC: moves all 4 ext Medications: Inpatient Meds: Current Medications Medications (Trade) Dose Ordered Sig/Jesus Manuel Start Time Stop Time Status Last Admin Dose Admin Acetaminophen (Tylenol) 650 mg PRN Q6HRS PRN 04/20/19 16:00 Acetaminophen/ Hydrocodone Bitart (Lortab 10/325) 1 tab PRN Q6HRS PRN 04/20/19 11:00 Albuterol Sulfate (Ventolin Neb Soln) 2.5 mg PRN Q4HRS PRN 04/20/19 02:00 04/20/19 03:20 2.5 MG Albuterol/ Ipratropium (Duoneb) 3 ml RTQID 04/20/19 08:00 04/26/19 07:07 3 ML Alprazolam (Xanax) 0.5 mg PRN Q6HRS PRN 04/20/19 11:00 Amino Acids/ Glycerin/ Electrolytes 1,000 ml @ 60 mls/hr [id number] 04/24/19 11:00 04/25/19 15:39 DC 04/25/19 04:44 60 MLS/HR Amlodipine Besylate (Norvasc) 5 mg DAILY 04/20/19 12:00 04/23/19 12:18 DC 04/23/19 08:07 5 MG Apixaban (Eliquis) 5 mg BID 04/20/19 12:00 04/25/19 08:01 DC 04/24/19 09:39 5 MG Aspirin (Children'S Aspirin) 81 mg DAILY 04/20/19 12:00 04/25/19 15:24 81 MG Atorvastatin Calcium (Lipitor) 40 mg HS 04/20/19 21:00 04/25/19 21:12 40 MG Cilostazol (Pletal) 50 mg BID 04/20/19 12:00 04/25/19 22:15 50 MG Clonidine HCl (Catapres Tts-1) 1 patch 1X ONCE 04/23/19 12:15 04/23/19 12:16 DC 04/23/19 13:05 1 PATCH Dextrose 1,000 ml @ 75 mls/hr [id number] 04/23/19 18:45 04/25/19 10:47 DC Dextrose (Dextrose 50%-Water Syringe) 12.5 gm PRN Q15MIN PRN 04/20/19 11:00 04/23/19 18:10 12.5 GM Duloxetine HCl (Cymbalta) 60 mg BID 04/20/19 12:00 04/21/19 08:10 DC 04/20/19 21:16 60 MG Enoxaparin Sodium (Lovenox 60mg Syringe) 60 mg Q12HR 04/25/19 08:00 04/25/19 21:12 60 MG Enoxaparin Sodium (Lovenox Per Pharmacy Prophylaxis Dosing) 1 each PRN DAILY PRN 04/25/19 08:00 Etomidate (Amidate) 30 mg 1X ONCE 04/19/19 21:40 04/19/19 22:39 DC 04/19/19 21:38 30 MG Famotidine (Pepcid Vial) 20 mg DAILY 04/21/19 09:00 Cancel Fluconazole/ Sodium Chloride 100 ml @ 100 mls/hr Q24H 04/21/19 14:00 04/25/19 12:34 100 MLS/HR Fluticasone Propionate (Flonase) 2 spray PRN DAILY PRN 04/20/19 12:00 04/21/19 17:30 2 SPRAY Furosemide (Lasix) 20 mg 1X ONCE 04/21/19 11:45 04/21/19 11:48 DC 04/21/19 11:49 20 MG Heparin Sodium (Porcine) (Heparin Sodium) 5,000 unit Q8HRS 04/20/19 14:00 04/20/19 14:00 DC Hydralazine HCl (Apresoline Inj) 10 mg PRN Q6HRS PRN 04/23/19 20:15 04/25/19 22:16 10 MG Hydralazine HCl (Apresoline) 50 mg TID 04/20/19 14:00 04/25/19 21:11 50 MG Info (Anti-Coagulation Monitoring By Pharmacy) 1 each PRN DAILY PRN 04/22/19 08:15 04/25/19 09:35 1 EACH Insulin Glargine (Lantus) 75 units BID 04/20/19 12:00 04/23/19 08:31 75 UNITS Insulin Human Lispro (HumaLOG) 30 units Q6HRS 04/20/19 12:00 04/23/19 13:02 30 UNITS Ipratropium [place] (Atrovent) 0.5 mg 1X ONCE 04/19/19 21:00 04/19/19 21:01 DC 04/19/19 21:00 0.5 MG Labetalol HCl (Normodyne Iv Push) 20 mg PRN Q2HR PRN 04/24/19 08:00 04/25/19 06:21 20 MG Levothyroxine Sodium (Synthroid) 50 mcg DAILY06 04/20/19 12:00 04/26/19 05:49 50 MCG Linezolid/Dextrose 300 ml @ 300 mls/hr Q12HR 04/21/19 14:00 04/25/19 21:13 300 MLS/HR Meropenem 500 mg/ Sodium Chloride 50 ml @ 100 mls/hr Q8HRS 04/23/19 14:00 04/26/19 05:49 100 MLS/HR Methylprednisolone Sodium Succinate (SOLU-Medrol 125MG VIAL) 250 mg 1X ONCE 04/19/19 21:00 04/19/19 21:01 DC 04/19/19 21:08 250 MG Metoprolol Succinate (Toprol Xl) 100 mg DAILY 04/20/19 12:00 Cancel Metoprolol Tartrate (Lopressor Vial) 5 mg Q6HRS 04/25/19 13:00 04/26/19 05:50 5 MG Metoprolol Tartrate (Lopressor) 50 mg BID 04/20/19 12:30 04/25/19 12:46 DC 04/24/19 09:44 50 MG Midazolam HCl (Versed) 5 mg 1X ONCE 04/19/19 22:45 04/19/19 22:46 DC 04/19/19 22:23 5 MG Morphine Sulfate (Morphine Sulfate) 1 mg PRN Q1HR PRN 04/24/19 19:30 04/26/19 03:05 1 MG Nicardipine HCl 50 mg/Sodium Chloride 250 ml @ 25 mls/hr CONT PRN 04/23/19 12:15 Nitroglycerin (Nitro-Bid Oint) 1 inch Q6HRS 04/24/19 18:00 Cancel Nitroglycerin (Nitrostat) 0.4 mg PRN Q5MIN PRN 04/20/19 11:00 04/24/19 15:14 DC Non-Formulary Medication 1 ea PRN Q3HRS PRN 04/24/19 20:30 Cancel Nystatin (Nystop) 1 eric BID 04/20/19 12:00 04/25/19 21:29 1 ERIC Pantoprazole Sodium (PROTONIX VIAL for IV PUSH) 40 mg DAILYAC 04/21/19 07:30 04/25/19 08:25 40 MG Pantoprazole Sodium (Protonix) 40 mg DAILYAC 04/20/19 12:00 04/20/19 12:00 DC Piperacillin Sod/ Tazobactam Sod (Zosyn Per Pharmacy) 1 each PRN DAILY PRN 04/20/19 10:00 04/23/19 09:00 DC Piperacillin Sod/ Tazobactam Sod 2.25 gm/Sodium Chloride 50 ml @ 100 mls/hr Q6HRS 04/20/19 12:00 04/23/19 07:46 DC 04/23/19 05:56 100 MLS/HR Pregabalin (Lyrica) 150 mg BID 04/20/19 12:00 04/25/19 21:12 150 MG Propofol 50 ml @ 1.551 mls/ hr 1X ONCE 04/19/19 21:40 04/21/19 05:54 DC 04/19/19 21:47 3.103 MLS/HR Sodium Bicarbonate (Sodium Bicarb Adult 8.4% Syr) 50 meq 1X ONCE 04/20/19 11:00 04/20/19 11:11 DC 04/20/19 11:11 50 MEQ Tizanidine HCl (Zanaflex) 4 mg PRN Q8HRS PRN 04/20/19 11:00 Vecuronium [place] (Norcuron Bolus) 20 mg 1X ONCE 04/19/19 21:40 04/19/19 22:39 DC 04/19/19 21:39 20 MG Venlafaxine HCl (Effexor) 50 mg TID 04/21/19 09:00 04/25/19 21:11 50 MG Labs: Lab Laboratory Tests Test 04/25/19 09:03 04/25/19 12:31 04/25/19 18:12 04/25/19 21:18 Glucose (Fingerstick) 154 mg/dL (70-99) 189 mg/dL (70-99) 175 mg/dL (70-99) 154 mg/dL (70-99) Test 04/25/19 23:46 04/26/19 03:30 Glucose (Fingerstick) 194 mg/dL (70-99) White Blood Count 11.5 x10^3/uL (4.0-11.0) Red Blood Count 3.32 x10^6/uL (3.50-5.40) Hemoglobin 9.0 g/dL (12.0-15.5) Hematocrit 28.2 % (36.0-47.0) Mean Corpuscular Volume 85 fL (79-100) Mean Corpuscular Hemoglobin 27 pg (25-35) Mean Corpuscular Hemoglobin Concent 32 g/dL (31-37) Red Cell Distribution Width 17.0 % (11.5-14.5) Platelet Count 319 x10^3/uL (140-400) Sodium Level 141 mmol/L (136-145) Potassium Level 4.2 mmol/L (3.5-5.1) Chloride Level 102 mmol/L (98-107) Carbon Dioxide Level 29 mmol/L (21-32) Anion Gap 10 (6-14) Blood Urea Nitrogen 31 mg/dL (7-20) Creatinine 1.3 mg/dL (0.6-1.0) Estimated GFR (Cockcroft-Gault) 42.4 Glucose Level 216 mg/dL (70-99) Calcium Level 8.9 mg/dL (8.5-10.1) Micro cult reviewed Objective: Assessment: 1. Healthcare facility associated pneumonia may have been possible aspiration. 2. Acute Respiratory failure. 3. Renal insufficiency. 4. Urinary tract infection.UC 20-50 K of possible ESBL Klebsiella 5. Diabetes. 6. Hypertension. 7. Chronic obstructive pulmonary disease. 8. Congestive heart failure. 9. Coronary artery disease. 10. Atrial fibrillation. 11. Leucocytosis 12.Loose bm C diff neg 04/23 13.Recurrent UTIs Plan: Plan of Care cont Merrem,Zyvox and Diflucan. will deescalate soon f/u c/s and labs D/W BENJAMIN HARRIS,LAVELL Cordoba MD Apr 26, 2019 07:15
--- NOTE | 2019-04-26 07:45 | PDOC ---
PROGRESS NOTES Subjective Subjective Patient without complaint, resting comfortably on venti mask. Objective Objective Vital Signs Date Time Temp Pulse Resp B/P (MAP) Pulse Ox O2 Delivery O2 Flow Rate FiO2 04/26/19 07:08 95 Venturi Mask 9.0 04/26/19 06:00 86 16 146/71 (96) 04/26/19 04:00 99.3 99.3 Intake and Output 04/26/19 06:59 Intake Total 2434 ml Output Total 1855 ml Balance 579 ml IV Total 1455 ml Tube Feeding 679 ml Other 300 ml Output Urine Total 1855 ml # Bowel Movements 2 Physical Exam Abdomen: Normal bowel sounds, Soft, No tenderness Heart: Regular rate Extremities: No edema General: Alert, No acute distress Lungs: Clear to auscultation (anteriorly) Assessment Assessment Problems Medical Problems: (1) Acute respiratory failure with hypoxia and hypercapnia Status: Acute (2) Gzjkt-ax-foywgnv kidney injury Status: Acute (3) Atrial fibrillation Status: Acute (4) CAD (coronary artery disease) Status: Chronic (5) CHF (congestive heart failure) Status: Acute (6) COPD exacerbation Status: Acute (7) DM2 (diabetes mellitus, type 2) Status: Chronic (8) Healthcare-associated pneumonia Status: Acute (9) HTN (hypertension) Status: Chronic (10) Obesity hypoventilation syndrome Status: Chronic (11) Obstructive sleep apnea Status: Chronic (12) UTI (urinary tract infection) Status: Acute Plan Plan of Care 1. Acute on chronic respiratory failure with pneumonia - stable off the vent on Bipap at HS and Venti mask during the day. Continue present tx per Pulmonary. 2. diastolic CHF - stable, not on diuretic at present. 3. JENNIFER - resolved, renal function is at baseline. 4. hx PAF - remains in sinus, on Lovenox. 5. DM2 - continue with SS only until she resumes po diet. 6. nutrition - Speech Tx does not feel patient is strong enough to safely swallow at present. Tolerating TF now. 7. UTI - light growth of Klebsiella. Continue abx per ID. 8. debility - continue therapies, transfer back to alf when ready for discharge. Comment Review of Relevant I have reviewed the following items jim (where applicable) has been applied. Labs Laboratory Tests Test 04/24/19 08:35 04/24/19 09:55 04/24/19 11:00 04/24/19 12:29 O2 Saturation 94 % (92-99) Arterial Blood pH 7.45 (7.35-7.45) Arterial Blood pCO2 at Patient Temp 46 mmHg (35-46) Arterial Blood pO2 at Patient Temp 73 mmHg (75-108) Arterial Blood HCO3 31 mmol/L (21-28) Arterial Blood Base Excess 7 mmol/L (-3-3) FiO2 40 Glucose (Fingerstick) 70 mg/dL (70-99) 127 mg/dL (70-99) Troponin I Quantitative 0.119 ng/mL (0.000-0.055) Test 04/24/19 16:44 04/24/19 17:27 04/24/19 20:42 04/25/19 04:00 Troponin I Quantitative 0.135 ng/mL (0.000-0.055) Glucose (Fingerstick) 126 mg/dL (70-99) 141 mg/dL (70-99) Sodium Level 144 mmol/L (136-145) Potassium Level 4.5 mmol/L (3.5-5.1) Chloride Level 105 mmol/L (98-107) Carbon Dioxide Level 30 mmol/L (21-32) Anion Gap 9 (6-14) Blood Urea Nitrogen 28 mg/dL (7-20) Creatinine 1.2 mg/dL (0.6-1.0) Estimated GFR (Cockcroft-Gault) 46.5 Glucose Level 162 mg/dL (70-99) Calcium Level 8.6 mg/dL (8.5-10.1) Test 04/25/19 09:03 04/25/19 12:31 04/25/19 18:12 04/25/19 21:18 Glucose (Fingerstick) 154 mg/dL (70-99) 189 mg/dL (70-99) 175 mg/dL (70-99) 154 mg/dL (70-99) Test 04/25/19 23:46 04/26/19 03:30 Glucose (Fingerstick) 194 mg/dL (70-99) White Blood Count 11.5 x10^3/uL (4.0-11.0) Red Blood Count 3.32 x10^6/uL (3.50-5.40) Hemoglobin 9.0 g/dL (12.0-15.5) Hematocrit 28.2 % (36.0-47.0) Mean Corpuscular Volume 85 fL (79-100) Mean Corpuscular Hemoglobin 27 pg (25-35) Mean Corpuscular Hemoglobin Concent 32 g/dL (31-37) Red Cell Distribution Width 17.0 % (11.5-14.5) Platelet Count 319 x10^3/uL (140-400) Sodium Level 141 mmol/L (136-145) Potassium Level 4.2 mmol/L (3.5-5.1) Chloride Level 102 mmol/L (98-107) Carbon Dioxide Level 29 mmol/L (21-32) Anion Gap 10 (6-14) Blood Urea Nitrogen 31 mg/dL (7-20) Creatinine 1.3 mg/dL (0.6-1.0) Estimated GFR (Cockcroft-Gault) 42.4 Glucose Level 216 mg/dL (70-99) Calcium Level 8.9 mg/dL (8.5-10.1) Laboratory Tests Test 04/25/19 09:03 04/25/19 12:31 04/25/19 18:12 04/25/19 21:18 Glucose (Fingerstick) 154 mg/dL (70-99) 189 mg/dL (70-99) 175 mg/dL (70-99) 154 mg/dL (70-99) Test 04/25/19 23:46 04/26/19 03:30 Glucose (Fingerstick) 194 mg/dL (70-99) White Blood Count 11.5 x10^3/uL (4.0-11.0) Red Blood Count 3.32 x10^6/uL (3.50-5.40) Hemoglobin 9.0 g/dL (12.0-15.5) Hematocrit 28.2 % (36.0-47.0) Mean Corpuscular Volume 85 fL (79-100) Mean Corpuscular Hemoglobin 27 pg (25-35) Mean Corpuscular Hemoglobin Concent 32 g/dL (31-37) Red Cell Distribution Width 17.0 % (11.5-14.5) Platelet Count 319 x10^3/uL (140-400) Sodium Level 141 mmol/L (136-145) Potassium Level 4.2 mmol/L (3.5-5.1) Chloride Level 102 mmol/L (98-107) Carbon Dioxide Level 29 mmol/L (21-32) Anion Gap 10 (6-14) Blood Urea Nitrogen 31 mg/dL (7-20) Creatinine 1.3 mg/dL (0.6-1.0) Estimated GFR (Cockcroft-Gault) 42.4 Glucose Level 216 mg/dL (70-99) Calcium Level 8.9 mg/dL (8.5-10.1) Microbiology 04/21/19 - Final, Complete 04/21/19 - Final, Complete 04/21/19 - Final, Complete 04/21/19 Gram Stain Evaluation - Final, Complete 04/21/19 Sputum Culture - Final, Complete 04/21/19 Sputum Result 1 - Final, Complete 04/20/19 Urine Culture - Final, Complete 04/20/19 Urine Culture Result 1 (CANDACE) - Final, Complete 04/20/19 Antimicrobic Susceptibility - Final, Complete Medications Current Medications Albuterol Sulfate (Ventolin Neb Soln) 2.5 mg STK-MED ONCE .ROUTE ; Start 04/19/19 at 20:52; Stop 04/19/19 at 20:53; Status DC Ipratropium [place] (Atrovent) 0.5 mg 1X ONCE NEB Last administered on 04/19/19at 21:00; Start 04/19/19 at 21:00; Stop 04/19/19 at 21:01; Status DC Methylprednisolone Sodium Succinate (SOLU-Medrol 125MG VIAL) 250 mg 1X ONCE IV Last administered on 04/19/19at 21:08; Start 04/19/19 at 21:00; Stop 04/19/19 at 21:01; Status DC Albuterol Sulfate (Ventolin Neb Soln) 10 mg 1X ONCE CONT NEB Last administered on 04/19/19at 21:00; Start 04/19/19 at 21:00; Stop 04/19/19 at 21:01; Status DC Morphine Sulfate (Morphine Sulfate) 2 mg PRN Q15MIN PRN IV/SQ PAIN GREATER THAN 3/10 Last administered on 04/19/19at 21:14; Start 04/19/19 at 21:00; Stop 04/20/19 at 14:38; Status DC Furosemide (Lasix) 80 mg 1X ONCE IVP Last administered on 04/19/19at 21:20; Start 04/19/19 at 21:30; Stop 04/19/19 at 21:31; Status DC Propofol 50 ml @ As Directed STK-MED ONCE IV ; Start 04/19/19 at 21:42; Stop 04/19/19 at 21:43; Status DC Propofol 100 ml @ 0 mls/hr CONT PRN IV SEE PROTOCOL Last administered on 04/23at 04:28; Start 04/19/19 at 22:00 Etomidate (Amidate) 20 mg STK-MED ONCE IV ; Start 04/19/19 at 22:13; Stop 04/19/19 at 22:14; Status DC Vecuronium [place] (Norcuron Bolus) 10 mg STK-MED ONCE IV ; Start 04/19/19 at 22:13; Stop 04/19/19 at 22:14; Status DC Midazolam HCl (Versed) 5 mg 1X ONCE NS ; Start 04/19/19 at 22:30; Stop 04/19/19 at 22:31; Status DC Propofol 50 ml @ 1.551 mls/ hr 1X ONCE IV Last administered on 04/19/19at 21:47; Start 04/19/19 at 21:40; Stop 04/21/19 at 05:54; Status DC Vecuronium [place] (Norcuron Bolus) 20 mg 1X ONCE IV Last administered on 04/19/19at 21:39; Start 04/19/19 at 21:40; Stop 04/19/19 at 22:39; Status DC Etomidate (Amidate) 30 mg 1X ONCE IV Last administered on 04/19/19at 21:38; Start 04/19/19 at 21:40; Stop 04/19/19 at 22:39; Status DC Midazolam HCl (Versed) 5 mg 1X ONCE IV Last administered on 04/19/19at 22:23; Start 04/19/19 at 22:45; Stop 04/19/19 at 22:46; Status DC Albuterol/ Ipratropium (Duoneb) 3 ml RTQID NEB Last administered on 04/26/19 07:07; Start 04/20/19 at 08:00 Albuterol Sulfate (Ventolin Neb Soln) 2.5 mg PRN Q4HRS PRN NEB SHORTNESS OF BREATH Last administered on 7/27/19at 03:20; Start 04/20/19 at 02:00 Heparin Sodium (Porcine) (Heparin Sodium) 5,000 unit Q8HRS SQ ; Start 04/20/19 at 14:00; Stop 04/20/19 at 14:00; Status DC Piperacillin Sod/ Tazobactam Sod (Zosyn Per Pharmacy) 1 each PRN DAILY PRN MC SEE COMMENTS; Start 04/20/19 at 10:00; Stop 04/23/19 at 09:00; Status DC Sodium Bicarbonate (Sodium Bicarb Adult 8.4% Syr) 50 meq 1X ONCE IV Last administered on 04/20/19at 11:11; Start 04/20/19 at 11:00; Stop 04/20/19 at 11:11; Status DC Piperacillin Sod/ Tazobactam Sod 2.25 gm/Sodium Chloride 50 ml @ 100 mls/hr Q6HRS IV Last administered on 04/23/19at 05:56; Start 04/20/19 at 12:00; Stop at 07:46; Status DC Insulin Human Lispro (HumaLOG) 0-9 UNITS TIDWMEALS SQ ; Start 04/20/19 at 12:00; Stop 04/20/19 at 12:00; Status DC Dextrose (Dextrose 50%-Water Syringe) 12.5 gm PRN Q15MIN PRN IV SEE COMMENTS Last administered on 04/23/19at 18:10; Start 04/20/19 at 11:00 Alprazolam (Xanax) 0.5 mg PRN Q6HRS PRN PO ANXIETY / AGITATION; Start 04/20/19 at 11:00 Amlodipine Besylate (Norvasc) 5 mg DAILY PO Last administered on 04/23/19at 08:07; Start 04/20/19 at 12:00; Stop 04/23/19 at 12:18; Status DC Apixaban (Eliquis) 5 mg BID PO Last administered on 04/24/19at 09:39; Start 04/20/19 at 12:00; Stop 04/25/19 at 08:01; Status DC Aspirin (Children'S Aspirin) 81 mg DAILY PO Last administered on 04/25/19at 15:24; Start 04/20/19 at 12:00 Atorvastatin Calcium (Lipitor) 40 mg HS PO Last administered on 04/25/19 21:12; Start 04/20/19 at 21:00 Cilostazol (Pletal) 50 mg BID PO Last administered on 04/25/19at 22:15; Start 04/20/19 at 12:00 Acetaminophen/ Hydrocodone Bitart (Lortab 10/325) 1 tab PRN Q6HRS PRN PO SEVERE PAIN 7-10; Start 04/20/19 at 11:00 Insulin Glargine (Lantus) 75 units BID SQ Last administered on 04/23/19at 08:31; Start 04/20/19 at 12:00 Insulin Human Lispro (HumaLOG) 30 units TIDWMEALS SQ ; Start 04/20/19 at 12:00; Stop 04/20/19 at 12:00; Status DC Metoprolol Succinate (Toprol Xl) 100 mg DAILY PO ; Start 04/20/19 at 12:00; Status Cancel Nitroglycerin (Nitrostat) 0.4 mg PRN Q5MIN PRN SL CP RATING > 1/10; Start 04/20/19 at 11:00; Stop 04/24/19 at 15:14; Status DC Nystatin (Nystop) 1 sally BID TP Last administered on 04/25/19 21:29; Start 04/20/19 at 12:00 Duloxetine HCl (Cymbalta) 60 mg BID PO Last administered on 04/20/19at 21:16; Start 04/20/19 at 12:00; Stop 04/21/19 at 08:10; Status DC Pantoprazole Sodium (Protonix) 40 mg DAILYAC PO ; Start 04/20/19 at 12:00; Stop 04/20/19 at 12:00; Status DC Fluticasone Propionate (Flonase) 2 spray PRN DAILY PRN NS ALLERGIES Last administered on 04/21/19at 17:30; Start 04/20/19 at 12:00 Hydralazine HCl (Apresoline) 50 mg TID PO Last administered on 04/25/19at 21:11; Start 04/20/19 at 14:00 Levothyroxine Sodium (Synthroid) 50 mcg DAILY06 PO Last administered on 04/26/19at 05:49; Start 04/20/19 at 12:00 Pregabalin (Lyrica) 150 mg BID PO Last administered on 04/25/19 21:12; Start 04/20/19 at 12:00 Tizanidine HCl (Zanaflex) 4 mg PRN Q8HRS PRN PO MUSCLE SPASMS; Start 04/20/19 at 11:00 Famotidine (Pepcid Vial) 20 mg DAILY IVP ; Start 04/21/19 at 09:00; Status Cancel Insulin Human Lispro (HumaLOG) 0-9 UNITS Q6HRS SQ Last administered on 04/26/19 05:51; Start 04/20/19 at 12:00 Insulin Human Lispro (HumaLOG) 30 units Q6HRS SQ Last administered on 04/23/19 13:02; Start 04/20/19 at 12:00 Pantoprazole Sodium (PROTONIX VIAL for IV PUSH) 40 mg DAILYAC IVP Last administered on 04/25/19 08:25; Start 04/21/19 at 07:30 Metoprolol Tartrate (Lopressor) 50 mg BID PO Last administered on 04/24/19 09:44; Start 04/20/19 at 12:30; Stop 04/25/19 at 12:46; Status DC Acetaminophen (Tylenol) 650 mg PRN Q6HRS PRN PEG MILD PAIN / TEMP; Start 04/20/19 at 16:00 Venlafaxine HCl (Effexor) 50 mg TID NG Last administered on 04/25/19 21:11; Start 04/21/19 at 09:00 Furosemide (Lasix) 20 mg 1X ONCE IVP Last administered on 04/21/19at 11:49; Start 04/21/19 at 11:45; Stop 04/21/19 at 11:48; Status DC Linezolid/Dextrose 300 ml @ 300 mls/hr Q12HR IV Last administered on 04/25/19 21:13; Start 04/21/19 at 14:00 Fluconazole/ Sodium Chloride 100 ml @ 100 mls/hr Q24H IV Last administered on 04/25/19 12:34; Start 04/21/19 at 14:00 Info (Anti-Coagulation Monitoring By Pharmacy) 1 each PRN DAILY PRN MC SEE COMMENTS Last administered on 04/25/19 09:35; Start 04/22/19 at 08:15 Meropenem 500 mg/ Sodium Chloride 50 ml @ 100 mls/hr Q8HRS IV Last administered on 04/26/19at 05:49; Start 04/23/19 at 14:00 Clonidine HCl (Catapres Tts-1) 1 patch 1X ONCE TD Last administered on 04/23/19at 13:05; Start 04/23/19 at 12:15; Stop 04/23/19 at 12:16; Status DC Nicardipine HCl 50 mg/Sodium Chloride 250 ml @ 25 mls/hr CONT PRN IV SEE I/O RECORD; Start 04/23/19 at 12:15 Dextrose 1,000 ml @ 75 mls/hr [id number] IV ; Start 04/23/19 at 18:45; Stop 04/25/19 at 10:47; Status DC Hydralazine HCl (Apresoline Inj) 10 mg PRN Q6HRS PRN IVP ELEVATED BP, SEE COMMENTS Last administered on 04/25/19at 22:16; Start 04/23/19 at 20:15 Labetalol HCl (Normodyne Iv Push) 20 mg PRN Q2HR PRN IVP HYPERTENSION Last administered on 04/25/19at 06:21; Start 04/24/19 at 08:00 Amino Acids/ Glycerin/ Electrolytes 1,000 ml @ 80 mls/hr [id number] IV ; Start 04/24/19 at 10:45; Stop 04/24/19 at 10:55; Status DC Amino Acids/ Glycerin/ Electrolytes 1,000 ml @ 60 mls/hr [id number] IV Last administered on 04/25/19at 04:44; Start 04/24/19 at 11:00; Stop 04/25/19 at 15:39; Status DC Nitroglycerin (Nitro-Bid Oint) 1 inch Q6HRS TP Last administered on 04/26/19at 05:49; Start 04/24/19 at 18:00 Nitroglycerin (Nitro-Bid Oint) 1 inch Q6HRS TP ; Start 04/24/19 at 18:00; Status Cancel Morphine Sulfate (Morphine Sulfate) 1 mg PRN Q1HR PRN IV PAIN Last administered on 04/26/19at 03:05; Start 04/24/19 at 19:30 Non-Formulary Medication 1 ea PRN Q3HRS PRN SQ PAIN; Start 04/24/19 at 20:30; Status Cancel Enoxaparin Sodium (Lovenox Per Pharmacy Prophylaxis Dosing) 1 each PRN DAILY PRN MC SEE COMMENTS; Start 04/25/19 at 08:00 Enoxaparin Sodium (Lovenox 60mg Syringe) 60 mg Q12HR SQ Last administered on 04/25/19at 21:12; Start 04/25/19 at 08:00 Metoprolol Tartrate (Lopressor Vial) 5 mg Q6HRS IVP Last administered on 04/26/19at 05:50; Start 04/25/19 at 13:00 Active Scripts Active Humalog (Insulin Lispro) 100 Unit/1 Ml Insuln.pen 30 Units SQ TIDWMEALS 30 Days Toprol Xl (Metoprolol Succinate) 50 Mg Tab.er.24h 100 Mg PO DAILY Hydralazine Hcl 25 Mg Tablet 50 Mg PO TID Cilostazol 50 Mg Tablet 50 Mg PO BID Xanax (Alprazolam) 0.5 Mg Tablet 0.5 Mg PO PRN Q6HRS PRN Ondansetron Odt (Ondansetron) 4 Mg Tab.rapdis 1 Tab PO PRN Q6-8HRS Nystop (Nystatin) 60 Gm Powder 1 Sally TP BID 30 Days Colace (Docusate Sodium) 100 Mg Capsule 100 Mg PO BID Senna-Time S Tablet (Sennosides/Docusate Sodium) 1 Each Tablet 1 Tab PO BID Nitrostat (Nitroglycerin) 0.4 Mg Tab.subl 0.4 Mg SL PRN Q5MIN PRN 30 Days Reported Lantus Solostar (Insulin Glargine,Hum.rec.anlog) 100 Unit/1 Ml Insuln.pen 75 Unit SQ BID Tizanidine Hcl 4 Mg Tablet 1 Tab PO TID Duloxetine Hcl 60 Mg Capsule.dr 60 Mg PO BID Trulicity (Dulaglutide) 0.75 Mg/0.5 Ml Pen.injctr 0.75 Mg SUBCUT QFR Amlodipine Besylate 5 Mg Tablet 5 Mg PO DAILY Ventolin Hfa Inhaler (Albuterol Sulfate) 18 Gm Hfa.aer.ad 2 Puff INH PRN Q4HRS PRN Duoneb 0.5-3(2.5) Mg/3 Ml (Albuterol/Ipratropium) 3 Ml Ampul.neb 3 Ml NEB PRN QID PRN Flonase Allergy Relief (Fluticasone Propionate) 9.9 Ml [place].susp 2 Sprays NS PRN PRN Clonidine Hcl 0.1 Mg Tablet 1 Tab PO PRN PRN When SBP >150 Eliquis (Apixaban) 5 Mg Tablet 5 Mg PO BID Lyrica (Pregabalin) 150 Mg Capsule 1 Cap PO BID Atorvastatin Calcium 20 Mg Tablet 2 Tab PO HS Nexium Capsule (Esomeprazole Magnesium) 40 Mg Capsule.dr 1 Cap PO BID Aspirin 81 Mg Tab.chew 1 Tab PO DAILY Levothyroxine Sodium 50 Mcg Tablet 1 Tab PO DAILY Vitals/I & O Vital Sign - Last 24 Hours 04/25/19 04/25/19 04/25/19 04/25/19 07:50 08:00 08:01 09:00 Pulse 85 89 Resp 17 17 B/P (MAP) 167/77 (107) 149/72 (97) Pulse Ox 95 94 95 O2 Delivery Venturi Mask Venturi Mask Venturi Mask Venturi Mask O2 Flow Rate 12.0 04/25/19 04/25/19 04/25/19 04/25/19 10:00 11:00 12:00 12:00 Temp 98.6 98.6 Pulse 88 97 90 Resp 16 19 16 B/P (MAP) 159/76 (103) 169/77 (107) 165/88 (113) Pulse Ox 97 97 97 O2 Delivery Venturi Mask Venturi Mask Venturi Mask Venturi Mask 04/25/19 04/25/19 04/25/19 04/25/19 12:16 12:34 12:42 13:00 Pulse 91 91 100 Resp 16 B/P (MAP) 165/88 165/88 153/78 (103) Pulse Ox 95 95 O2 Delivery Venturi Mask Venturi Mask O2 Flow Rate 12.0 04/25/19 04/25/19 04/25/19 04/25/19 14:00 14:35 15:00 15:24 Pulse 93 93 85 93 Resp 16 16 B/P (MAP) 158/77 (104) 158/77 168/82 (110) 158/77 Pulse Ox 95 94 O2 Delivery Venturi Mask Venturi Mask 04/25/19 04/25/19 04/25/19 04/25/19 15:25 16:00 16:00 16:22 Temp 98.1 98.1 Pulse 93 88 Resp 16 B/P (MAP) 158/77 160/78 (105) Pulse Ox 95 94 O2 Delivery Venturi Mask Venturi Mask Venturi Mask O2 Flow Rate 9.0 04/25/19 04/25/19 04/25/19 04/25/19 17:00 18:00 18:09 18:09 Pulse 85 89 88 90 Resp 16 16 B/P (MAP) 139/65 (89) 152/76 (101) 160/78 152/76 Pulse Ox 95 95 O2 Delivery Venturi Mask Venturi Mask 04/25/19 04/25/19 04/25/19 04/25/19 19:00 19:51 20:00 20:00 Temp 98.7 98.7 Pulse 82 82 Resp 17 16 B/P (MAP) 138/67 (90) 168/83 (111) Pulse Ox 95 95 96 O2 Delivery Venturi Mask Venturi Mask Venturi Mask Venturi Mask O2 Flow Rate 9.0 04/25/19 04/25/19 04/25/19 04/25/19 21:00 21:11 22:00 22:16 Pulse 86 88 93 93 Resp 16 16 B/P (MAP) 167/84 (111) 167/84 181/87 (118) 181/87 Pulse Ox 94 94 O2 Delivery Venturi Mask Venturi Mask 04/25/19 04/25/19 04/25/19 04/25/19 23:00 23:43 23:44 23:50 Pulse 90 89 88 Resp 18 B/P (MAP) 153/67 (95) 153/67 153/67 Pulse Ox 94 94 O2 Delivery Venturi Mask BiPAP/CPAP 04/25/19 04/25/19 04/26/19 04/26/19 23:56 23:58 00:50 01:00 Temp 98.7 98.7 Pulse 78 85 Resp 15 19 B/P (MAP) 135/64 (87) 140/69 (92) Pulse Ox 94 94 93 O2 Delivery Bi-pap BiPAP/CPAP BiPAP/CPAP BiPAP/CPAP 04/26/19 04/26/19 04/26/19 04/26/19 02:00 03:00 03:05 03:35 Pulse 87 89 Resp 22 22 22 20 B/P (MAP) 164/78 (106) 151/67 (95) Pulse Ox 91 92 93 94 O2 Delivery BiPAP/CPAP BiPAP/CPAP BiPAP/CPAP 04/26/19 04/26/19 04/26/19 04/26/19 03:53 04:00 04:00 05:00 Temp 99.3 99.3 Pulse 98 98 Resp 22 20 B/P (MAP) 153/71 (98) 133/70 (91) Pulse Ox 93 94 95 O2 Delivery BiPAP/CPAP BiPAP/CPAP Bi-pap BiPAP/CPAP 04/26/19 04/26/19 04/26/19 04/26/19 05:49 05:50 06:00 07:08 Pulse 97 97 86 Resp 16 B/P (MAP) 133/70 133/70 146/71 (96) Pulse Ox 94 95 O2 Delivery Venturi Mask Venturi Mask O2 Flow Rate 9.0 Intake and Output 04/25/19 04/25/19 04/26/19 14:59 22:59 06:59 Intake Total 400 ml 1444 ml 590 ml Output Total 660 ml 620 ml 575 ml Balance -260 ml 824 ml 15 ml JUSTIN TAVAREZ MD Apr 26, 2019 07:45
--- NOTE | 2019-04-26 08:34 | PDOC ---
PULMONARY PROGRESS NOTES Subjective SITTING UP IN CHAIR NO REPS DISTRESS NG IN PLACE Vitals Vital Signs Date Time Temp Pulse Resp B/P (MAP) Pulse Ox O2 Delivery O2 Flow Rate FiO2 04/26/19 07:08 95 Venturi Mask 9.0 04/26/19 06:00 86 16 146/71 (96) 04/26/19 04:00 99.3 99.3 ROS: No Nausea, No Chest Pain, No Abdominal Pain, No Increase Cough General: No acute distress Lungs: Clear Cardiovascular: S1, S2 Abdomen: Soft, Non-tender, Other Neuro Exam: Alert Extremities: Other (1+edema) Skin: Warm Labs Laboratory Tests Test 04/24/19 08:35 04/24/19 09:55 04/24/19 11:00 04/24/19 12:29 O2 Saturation 94 % (92-99) Arterial Blood pH 7.45 (7.35-7.45) Arterial Blood pCO2 at Patient Temp 46 mmHg (35-46) Arterial Blood pO2 at Patient Temp 73 mmHg (75-108) Arterial Blood HCO3 31 mmol/L (21-28) Arterial Blood Base Excess 7 mmol/L (-3-3) FiO2 40 Glucose (Fingerstick) 70 mg/dL (70-99) 127 mg/dL (70-99) Troponin I Quantitative 0.119 ng/mL (0.000-0.055) Test 04/24/19 16:44 04/24/19 17:27 04/24/19 20:42 04/25/19 04:00 Troponin I Quantitative 0.135 ng/mL (0.000-0.055) Glucose (Fingerstick) 126 mg/dL (70-99) 141 mg/dL (70-99) Sodium Level 144 mmol/L (136-145) Potassium Level 4.5 mmol/L (3.5-5.1) Chloride Level 105 mmol/L (98-107) Carbon Dioxide Level 30 mmol/L (21-32) Anion Gap 9 (6-14) Blood Urea Nitrogen 28 mg/dL (7-20) Creatinine 1.2 mg/dL (0.6-1.0) Estimated GFR (Cockcroft-Gault) 46.5 Glucose Level 162 mg/dL (70-99) Calcium Level 8.6 mg/dL (8.5-10.1) Test 04/25/19 09:03 04/25/19 12:31 04/25/19 18:12 04/25/19 21:18 Glucose (Fingerstick) 154 mg/dL (70-99) 189 mg/dL (70-99) 175 mg/dL (70-99) 154 mg/dL (70-99) Test 04/25/19 23:46 04/26/19 03:30 Glucose (Fingerstick) 194 mg/dL (70-99) White Blood Count 11.5 x10^3/uL (4.0-11.0) Red Blood Count 3.32 x10^6/uL (3.50-5.40) Hemoglobin 9.0 g/dL (12.0-15.5) Hematocrit 28.2 % (36.0-47.0) Mean Corpuscular Volume 85 fL (79-100) Mean Corpuscular Hemoglobin 27 pg (25-35) Mean Corpuscular Hemoglobin Concent 32 g/dL (31-37) Red Cell Distribution Width 17.0 % (11.5-14.5) Platelet Count 319 x10^3/uL (140-400) Sodium Level 141 mmol/L (136-145) Potassium Level 4.2 mmol/L (3.5-5.1) Chloride Level 102 mmol/L (98-107) Carbon Dioxide Level 29 mmol/L (21-32) Anion Gap 10 (6-14) Blood Urea Nitrogen 31 mg/dL (7-20) Creatinine 1.3 mg/dL (0.6-1.0) Estimated GFR (Cockcroft-Gault) 42.4 Glucose Level 216 mg/dL (70-99) Calcium Level 8.9 mg/dL (8.5-10.1) Laboratory Tests Test 04/25/19 09:03 04/25/19 12:31 04/25/19 18:12 04/25/19 21:18 Glucose (Fingerstick) 154 mg/dL (70-99) 189 mg/dL (70-99) 175 mg/dL (70-99) 154 mg/dL (70-99) Test 04/25/19 23:46 04/26/19 03:30 Glucose (Fingerstick) 194 mg/dL (70-99) White Blood Count 11.5 x10^3/uL (4.0-11.0) Red Blood Count 3.32 x10^6/uL (3.50-5.40) Hemoglobin 9.0 g/dL (12.0-15.5) Hematocrit 28.2 % (36.0-47.0) Mean Corpuscular Volume 85 fL (79-100) Mean Corpuscular Hemoglobin 27 pg (25-35) Mean Corpuscular Hemoglobin Concent 32 g/dL (31-37) Red Cell Distribution Width 17.0 % (11.5-14.5) Platelet Count 319 x10^3/uL (140-400) Sodium Level 141 mmol/L (136-145) Potassium Level 4.2 mmol/L (3.5-5.1) Chloride Level 102 mmol/L (98-107) Carbon Dioxide Level 29 mmol/L (21-32) Anion Gap 10 (6-14) Blood Urea Nitrogen 31 mg/dL (7-20) Creatinine 1.3 mg/dL (0.6-1.0) Estimated GFR (Cockcroft-Gault) 42.4 Glucose Level 216 mg/dL (70-99) Calcium Level 8.9 mg/dL (8.5-10.1) Medications Active Scripts Medications Dose Route/Sig Max Daily Dose Days Date Category Dose Instructions Humalog (Insulin Lispro) 100 Unit/1 Ml Insuln.pen 30 Units SQ TIDWMEALS 30 04/15/19 Rx Toprol Xl (Metoprolol Succinate) 50 Mg Tab.er.24h 100 Mg PO DAILY 04/15/19 Rx Hydralazine Hcl 25 Mg Tablet 50 Mg PO TID 04/15/19 Rx Cilostazol 50 Mg Tablet 50 Mg PO BID 04/15/19 Rx Xanax (Alprazolam) 0.5 Mg Tablet 0.5 Mg PO PRN Q6HRS PRN 04/15/19 Rx Lantus Solostar (Insulin Glargine,Hum.rec.anlog) 100 Unit/1 Ml Insuln.pen 75 Unit SQ BID 12/28/18 Reported Ondansetron Odt (Ondansetron) 4 Mg Tab.rapdis 1 Tab PO PRN Q6-8HRS 10/23/18 Rx Tizanidine Hcl 4 Mg Tablet 1 Tab PO TID 10/13/18 Reported Nystop (Nystatin) 60 Gm Powder 1 Sally TP BID 30 09/02/18 Rx Duloxetine Hcl 60 Mg Capsule.dr 60 Mg PO BID 10/26/17 Reported Trulicity (Dulaglutide) 0.75 Mg/0.5 Ml Pen.injctr 0.75 Mg SUBCUT QFR 10/26/17 Reported Amlodipine Besylate 5 Mg Tablet 5 Mg PO DAILY 10/26/17 Reported Colace (Docusate Sodium) 100 Mg Capsule 100 Mg PO BID 03/24/17 Rx Senna-Time S Tablet (Sennosides/Docusate Sodium) 1 Each Tablet 1 Tab PO BID 03/24/17 Rx Ventolin Hfa Inhaler (Albuterol Sulfate) 18 Gm Hfa.aer.ad 2 Puff INH PRN Q4HRS PRN 03/19/17 Reported Duoneb 0.5-3(2.5) Mg/3 Ml (Albuterol/Ipratropium) 3 Ml Ampul.neb 3 Ml NEB PRN QID PRN 03/19/17 Reported Flonase Allergy Relief (Fluticasone Propionate) 9.9 Ml [place].susp 2 Sprays NS PRN PRN 03/19/17 Reported Clonidine Hcl 0.1 Mg Tablet 1 Tab PO PRN PRN 03/19/17 Reported When SBP >150 Eliquis (Apixaban) 5 Mg Tablet 5 Mg PO BID 03/19/17 Reported Lyrica (Pregabalin) 150 Mg Capsule 1 Cap PO BID 10/07/16 Reported Atorvastatin Calcium 20 Mg Tablet 2 Tab PO HS 10/06/16 Reported Nexium Capsule (Esomeprazole Magnesium) 40 Mg Capsule.dr 1 Cap PO BID 10/06/16 Reported Aspirin 81 Mg Tab.chew 1 Tab PO DAILY 10/06/16 Reported Nitrostat (Nitroglycerin) 0.4 Mg Tab.subl 0.4 Mg SL PRN Q5MIN PRN 30 05/02/16 Rx Levothyroxine Sodium 50 Mcg Tablet 1 Tab PO DAILY 10/22/15 Reported Comments NO NEW CXR Impression . 1. [id number] hypercapnic respiratory failure. The etiology related to suspected right heart failure. extubated 04/23 2. Underlying obesity hypoventilation syndrome/obstructive sleep apnea, on home BiPAP and oxygen at 3 L. 3. Abnormal chest x-ray consistent with mild congestive heart failure, ACUTE/ CHRONIC HF 4. Lower extremity edema. 5. Chronic kidney disease 6. Minimal history of tobacco use. 7. metabolic acidosis combined with respiratory acidosis POA. corrected. Plan . TRANSFER OUT OF ICU DYSPHAGIA DIET BIPAP 02 D/C LIT FOLLOW SPEECH DEESCALATE ANTIBX RONA CRAFT MD Apr 26, 2019 08:33
[2019-04-26] MEDS: CILOSTAZOL 50 MG TABLET. PO SCH ×2 (09:00→21:04)
[2019-04-26] MEDS: ACETAMINOPHEN 650 MG/20.3 ML SOLUTION. PEG PRN ×2 (09:05→19:35)
[2019-04-26] MEDS: VENLAFAXINE 50 MG TABLET. NG SCH ×3 (09:05→21:04)
[2019-04-26] MEDS: PREGABALIN 75 MG CAPSULE PO SCH ×2 (09:06→21:05)
[2019-04-26] MEDS: PANTOPRAZOLE IV PUSH 40 MG VIAL. IVP SCH (09:06)
[2019-04-26] MEDS: ASPIRIN CHEWABLE 81 MG TABLET. PO SCH (09:06)
[2019-04-26] MEDS: NYSTATIN TOPICAL POWDER 15GM BOTTLE. TP SCH ×2 (09:07→21:00)
--- NOTE | 2019-04-26 13:53 | NUR ---
SS following up with discharge planning. SS phoned and faxed clinical updates to [facility], ; fax [phone]. SS will continue to follow for discharge planning.
--- NOTE | 2019-04-26 15:09 | PDOC ---
VIOLETTE ESCOBAR CHEMICAL DEPENDENCY THERAPIST 04/26/19 1509: CARDIO Progress Notes Date and Time Date of Service 04/26/2019 Time of Evaluation 1500 Subjective Subjective: No Chest Pain, No shortness of breath, No Palpitations Vitals Vitals Vital Signs Date Time Temp Pulse Resp B/P (MAP) Pulse Ox O2 Delivery O2 Flow Rate FiO2 04/26/19 14:43 86 125/62 04/26/19 13:00 99.1 15 97 Nasal Cannula 4.0 99.1 Weight Weight [ ] Input and Output Intake and Output Intake and Output 04/26/19 06:59 Intake Total 2434 ml Output Total 1855 ml Balance 579 ml IV Total 1455 ml Tube Feeding 679 ml Other 300 ml Output Urine Total 1855 ml # Bowel Movements 2 Laboratory Labs Laboratory Tests Test 04/25/19 18:12 04/25/19 21:18 04/25/19 23:46 04/26/19 03:30 Glucose (Fingerstick) 175 mg/dL (70-99) 154 mg/dL (70-99) 194 mg/dL (70-99) White Blood Count 11.5 x10^3/uL (4.0-11.0) Red Blood Count 3.32 x10^6/uL (3.50-5.40) Hemoglobin 9.0 g/dL (12.0-15.5) Hematocrit 28.2 % (36.0-47.0) Mean Corpuscular Volume 85 fL (79-100) Mean Corpuscular Hemoglobin 27 pg (25-35) Mean Corpuscular Hemoglobin Concent 32 g/dL (31-37) Red Cell Distribution Width 17.0 % (11.5-14.5) Platelet Count 319 x10^3/uL (140-400) Sodium Level 141 mmol/L (136-145) Potassium Level 4.2 mmol/L (3.5-5.1) Chloride Level 102 mmol/L (98-107) Carbon Dioxide Level 29 mmol/L (21-32) Anion Gap 10 (6-14) Blood Urea Nitrogen 31 mg/dL (7-20) Creatinine 1.3 mg/dL (0.6-1.0) Estimated GFR (Cockcroft-Gault) 42.4 Glucose Level 216 mg/dL (70-99) Calcium Level 8.9 mg/dL (8.5-10.1) Test 04/26/19 05:47 04/26/19 11:52 Glucose (Fingerstick) 184 mg/dL (70-99) 257 mg/dL (70-99) Microbiology Micro Microbiology 04/21/19 - Final, Complete 04/21/19 - Final, Complete 04/21/19 - Final, Complete 04/21/19 Gram Stain Evaluation - Final, Complete 04/21/19 Sputum Culture - Final, Complete 04/21/19 Sputum Result 1 - Final, Complete 04/20/19 Urine Culture - Final, Complete 04/20/19 Urine Culture Result 1 (CANDACE) - Final, Complete 04/20/19 Antimicrobic Susceptibility - Final, Complete Physical Exam HEENT: Neck Supple W Full Motion Chest: Symmetric LUNGS: Other (diminisehd with wheeze) Heart: RRR (SR) Abdomen: Soft N/T, Other (obese) Extremities: Other (trace to 1+ bilateral LE ) Neurology: alert, oriented, follow commands Assessment Assessment 1. Acute on chronic respiratory failure with decompensated diastolic CHF, pneumonia, MARY. Pulmonary following 2. Acute on chronic diastolic CHF: compensated 3. Chest pain: likely from bronchospasm, none today 4. CAD: past PCI/stent to the RCA and most recent PCI/stent to the LAD in 2017 5. JENNIFER on CKD3: back to her baseline, nephrology following 6. Elevated troponin: Trop peaked at 0.1 EKG SR without acute changes. Suspect demand mediated with above culprits, type 2 7. HTN urgency: improved 8. HLP 9. DM2 with hypoglycemic episode 10. Hx of PE/DVT 11. PAFIB: maintaining SR 12. Morbid obesity Recommendations 1. Able to swallow now. DC lopressor, unable to place on BB due to wheeze. Start Cardizem CD. DC NTG paste, continue hydralazine and add imdur. 2. DC lovenox if ok with PCP as pt is to start back on eliquis. 3. Continue secondary prevention measures 4. Follow up in office and will consider for outpt ischemic evaluation. SELINA ENCARNACION MD 04/26/19 1620: CARDIO Progress Notes Assessment Assessment Patient seen and examined. Agree with LANE MARKER INSTALLER's assessment and plan. Acute on chronic diastolic heart failure better compensated. CAD status clinically stable. Slight troponin elevation probably demand ischemia. We will consider ischemic evaluation as an outpatient. PAF maintaining sinus rhythm. Continue eliquis for stroke prophylaxis. VIOLETTE ESCOBAR APRN Apr 26, 2019 15:09 SELINA ENCARNACION MD Apr 26, 2019 16:20
[2019-04-26] MEDS: FLUCONAZOLE 200MG/100ML PREMIX 100 ML IV SCH (15:36)
[2019-04-26] MEDS: ATORVASTATIN CALCIUM 20 MG TABLET PO SCH (21:04)
[2019-04-26] MEDS: APIXABAN 5 MG TABLET. PO SCH (21:05)
[2019-04-26] MEDS: hydrALAZINE 20 MG/ML VIAL. IVP PRN (22:33)
[2019-04-27] VITALS (7 sets, daily range): BP systolic 115–199; BP diastolic 57–88
[2019-04-27] MEDS: hydrALAZINE 20 MG/ML VIAL. IVP PRN (04:24)
[2019-04-27] MEDS: LEVOTHYROXINE 50 MCG TABLET PO SCH (06:07)
[2019-04-27] MEDS: MEROPENEM 500 MG in IV NORMAL SALINE 50ML 50 ML IV SCH ×3 (06:07→22:59)
--- NOTE | 2019-04-27 06:31 | NUR ---
Overnight, patient successfully wore the bipap from midnight to 0600.
[2019-04-27] MEDS: IPRATRPIUM/ALBUTEROL 0.5/2.5MG 3 ML NEBU. NEB SCH ×4 (08:00→20:14)
[2019-04-27] MEDS ORDERED: IV DEXTROSE 5% 250 ML BAG. IV PRN (08:00)
[2019-04-27] MEDS: PANTOPRAZOLE IV PUSH 40 MG VIAL. IVP SCH (08:45)
[2019-04-27] MEDS: CILOSTAZOL 50 MG TABLET. PO SCH ×2 (08:46→22:40)
[2019-04-27] MEDS: APIXABAN 5 MG TABLET. PO SCH ×2 (08:47→22:39)
[2019-04-27] MEDS: ISOSORBIDE MONONITRATE ER 30 MG TAB.ER.24H PO SCH (08:47)
[2019-04-27] MEDS: ASPIRIN CHEWABLE 81 MG TABLET. PO SCH (08:47)
[2019-04-27] MEDS: PREGABALIN 75 MG CAPSULE PO SCH ×2 (08:48→22:43)
[2019-04-27] MEDS: ANTI-COAG MONITOR BY PHARMACY. MC PRN (09:14)
[2019-04-27] MEDS: LACTOBACILLUS RHAMNOSUS GG 1 CAPSULE. PO SCH ×2 (09:46→22:42)
[2019-04-27] MEDS: NYSTATIN TOPICAL POWDER 15GM BOTTLE. TP SCH ×2 (09:47→22:40)
[2019-04-27] MEDS: VENLAFAXINE 50 MG TABLET. NG SCH ×3 (09:47→22:39)
[2019-04-27] MEDS: INSULIN LISPRO 300 UNITS/3 ML INSULN.PEN. SQ SCH ×6 (09:51→17:52)
--- NOTE | 2019-04-27 10:51 | PDOC ---
Infectious Disease Note Subjective Subjective Feeling better Getting ready to walk On 4L O2 Denies SOA/CP/F/C/N/V ROS ROS per HPI Vital Sign Vital Signs Vital Signs Date Time Temp Pulse Resp B/P (MAP) Pulse Ox O2 Delivery O2 Flow Rate FiO2 04/27/19 08:48 96 170/82 04/27/19 08:00 4.0 04/27/19 07:00 97.9 18 99 Nasal Cannula 97.9 Physical Exam PHYSICAL EXAM GENERAL: Sitting in the chair,alert, NAD HEENT: No thrush NECK: Supple, LUNGS: Clear HEART: S1, S2 regular. ABDOMEN: Obese, soft, nontender : Mcgee EXTREMITIES: Bilateral lower extremity edema present, erythema present and superficial ulceration of both the legs present. + yeast groin NEUROLOGIC: Alert and oriented PIVs Labs Lab Laboratory Tests Test 04/26/19 11:52 04/26/19 17:11 04/26/19 21:03 04/27/19 08:27 Glucose (Fingerstick) 257 mg/dL (70-99) 210 mg/dL (70-99) 207 mg/dL (70-99) 277 mg/dL (70-99) Micro Microbiology 04/21/19 - Final, Complete 04/21/19 - Final, Complete 04/21/19 - Final, Complete 04/21/19 Gram Stain Evaluation - Final, Complete 04/21/19 Sputum Culture - Final, Complete 04/21/19 Sputum Result 1 - Final, Complete 04/20/19 Urine Culture - Final, Complete 04/20/19 Urine Culture Result 1 (CANDACE) - Final, Complete 04/20/19 Antimicrobic Susceptibility - Final, Complete Objective Assessment Healthcare facility associated pneumonia may have been possible aspiration. Recurrent UIT, ESBL Klebsiella, 04/20 -h/o ESBL E. coli Leukocytosis Acute Respiratory failure. Renal insufficiency. Urinary tract infection.UC 20-50 K of possible ESBL Klebsiella Diabetes. Hypertension. Chronic obstructive pulmonary disease. Congestive heart failure. Coronary artery disease. Atrial fibrillation. Loose bm C diff neg 04/23 Plan Plan of Care Continue Zyvox, Meropenem and Diflucan. will de-escalate soon Probiotics PT/OT Patient seen and examined. Chart reviewed in detail. Case discussed with PUTTY AND CAULKING SUPERVISOR. Agree with above plan. JEANETTE GUERIN ELECTRICAL INSTRUMENT MAKER Apr 27, 2019 10:51 NASRA CERON MD Apr 27, 2019 20:30
--- NOTE | 2019-04-27 11:02 | PDOC ---
PULMONARY PROGRESS NOTES Subjective SITTING UP IN CHAIR NO REPS DISTRESS EATING Vitals Vital Signs Date Time Temp Pulse Resp B/P (MAP) Pulse Ox O2 Delivery O2 Flow Rate FiO2 04/27/19 08:48 96 170/82 04/27/19 08:00 4.0 04/27/19 07:00 97.9 18 99 Nasal Cannula 97.9 ROS: No Nausea, No Chest Pain, No Abdominal Pain, No Increase Cough General: No acute distress Lungs: Clear Cardiovascular: S1, S2 Abdomen: Soft, Non-tender, Other Neuro Exam: Alert Extremities: Other (1+edema) Skin: Warm Labs Laboratory Tests Test 04/25/19 12:31 04/25/19 18:12 04/25/19 21:18 04/25/19 23:46 Glucose (Fingerstick) 189 mg/dL (70-99) 175 mg/dL (70-99) 154 mg/dL (70-99) 194 mg/dL (70-99) Test 04/26/19 03:30 04/26/19 05:47 04/26/19 11:52 04/26/19 17:11 White Blood Count 11.5 x10^3/uL (4.0-11.0) Red Blood Count 3.32 x10^6/uL (3.50-5.40) Hemoglobin 9.0 g/dL (12.0-15.5) Hematocrit 28.2 % (36.0-47.0) Mean Corpuscular Volume 85 fL (79-100) Mean Corpuscular Hemoglobin 27 pg (25-35) Mean Corpuscular Hemoglobin Concent 32 g/dL (31-37) Red Cell Distribution Width 17.0 % (11.5-14.5) Platelet Count 319 x10^3/uL (140-400) Sodium Level 141 mmol/L (136-145) Potassium Level 4.2 mmol/L (3.5-5.1) Chloride Level 102 mmol/L (98-107) Carbon Dioxide Level 29 mmol/L (21-32) Anion Gap 10 (6-14) Blood Urea Nitrogen 31 mg/dL (7-20) Creatinine 1.3 mg/dL (0.6-1.0) Estimated GFR (Cockcroft-Gault) 42.4 Glucose Level 216 mg/dL (70-99) Calcium Level 8.9 mg/dL (8.5-10.1) Glucose (Fingerstick) 184 mg/dL (70-99) 257 mg/dL (70-99) 210 mg/dL (70-99) Test 04/26/19 21:03 04/27/19 08:27 Glucose (Fingerstick) 207 mg/dL (70-99) 277 mg/dL (70-99) Laboratory Tests Test 04/26/19 11:52 04/26/19 17:11 04/26/19 21:03 04/27/19 08:27 Glucose (Fingerstick) 257 mg/dL (70-99) 210 mg/dL (70-99) 207 mg/dL (70-99) 277 mg/dL (70-99) Medications Active Scripts Medications Dose Route/Sig Max Daily Dose Days Date Category Dose Instructions Humalog (Insulin Lispro) 100 Unit/1 Ml Insuln.pen 30 Units SQ TIDWMEALS 30 04/15/19 Rx Toprol Xl (Metoprolol Succinate) 50 Mg Tab.er.24h 100 Mg PO DAILY 04/15/19 Rx Hydralazine Hcl 25 Mg Tablet 50 Mg PO TID 04/15/19 Rx Cilostazol 50 Mg Tablet 50 Mg PO BID 04/15/19 Rx Xanax (Alprazolam) 0.5 Mg Tablet 0.5 Mg PO PRN Q6HRS PRN 04/15/19 Rx Lantus Solostar (Insulin Glargine,Hum.rec.anlog) 100 Unit/1 Ml Insuln.pen 75 Unit SQ BID 12/28/18 Reported Ondansetron Odt (Ondansetron) 4 Mg Tab.rapdis 1 Tab PO PRN Q6-8HRS 10/23/18 Rx Tizanidine Hcl 4 Mg Tablet 1 Tab PO TID 10/13/18 Reported Nystop (Nystatin) 60 Gm Powder 1 Sally TP BID 30 09/02/18 Rx Duloxetine Hcl 60 Mg Capsule.dr 60 Mg PO BID 10/26/17 Reported Trulicity (Dulaglutide) 0.75 Mg/0.5 Ml Pen.injctr 0.75 Mg SUBCUT QFR 10/26/17 Reported Amlodipine Besylate 5 Mg Tablet 5 Mg PO DAILY 10/26/17 Reported Colace (Docusate Sodium) 100 Mg Capsule 100 Mg PO BID 03/24/17 Rx Senna-Time S Tablet (Sennosides/Docusate Sodium) 1 Each Tablet 1 Tab PO BID 03/24/17 Rx Ventolin Hfa Inhaler (Albuterol Sulfate) 18 Gm Hfa.aer.ad 2 Puff INH PRN Q4HRS PRN 03/19/17 Reported Duoneb 0.5-3(2.5) Mg/3 Ml (Albuterol/Ipratropium) 3 Ml Ampul.neb 3 Ml NEB PRN QID PRN 03/19/17 Reported Flonase Allergy Relief (Fluticasone Propionate) 9.9 Ml [place].susp 2 Sprays NS PRN PRN 03/19/17 Reported Clonidine Hcl 0.1 Mg Tablet 1 Tab PO PRN PRN 03/19/17 Reported When SBP >150 Eliquis (Apixaban) 5 Mg Tablet 5 Mg PO BID 03/19/17 Reported Lyrica (Pregabalin) 150 Mg Capsule 1 Cap PO BID 10/07/16 Reported Atorvastatin Calcium 20 Mg Tablet 2 Tab PO HS 10/06/16 Reported Nexium Capsule (Esomeprazole Magnesium) 40 Mg Capsule.dr 1 Cap PO BID 10/06/16 Reported Aspirin 81 Mg Tab.chew 1 Tab PO DAILY 10/06/16 Reported Nitrostat (Nitroglycerin) 0.4 Mg Tab.subl 0.4 Mg SL PRN Q5MIN PRN 30 05/02/16 Rx Levothyroxine Sodium 50 Mcg Tablet 1 Tab PO DAILY 10/22/15 Reported Comments NO NEW CXR Impression . 1. Shwji-vi-mnhezep hypercapnic respiratory failure. The etiology related to suspected right heart failure. extubated 04/23 2. Underlying obesity hypoventilation syndrome/obstructive sleep apnea, on home BiPAP and oxygen at 3 L. 3. Abnormal chest x-ray consistent with mild congestive heart failure, ACUTE/ CHRONIC HF 4. Lower extremity edema. 5. Chronic kidney disease 6. Minimal history of tobacco use. 7. metabolic acidosis combined with respiratory acidosis POA. corrected. Plan . ANTI BX PER ID UP TO CHAIR D/W RN BIPAP 02 DEESCALATE ANTIBX RONA CRAFT MD Apr 27, 2019 11:02
--- NOTE | 2019-04-27 11:40 | PDOC ---
PROGRESS NOTES Subjective Out of ICU without complications overnight, breathing well, sugars elevated, eating better, walked earlier today, still has Mcgee but wants to keep it another day as not yet strong enough to get to bathroom Objective Afebrile General: A&O, no respiratory distress, no cough Heart: RRR Lungs: CTA Abd: obese, soft Ext: no pedal edema WBC: [] Hgb: [] K+: [] Creat: [] Vital Signs Vital Signs Date Time Temp Pulse Resp B/P (MAP) Pulse Ox O2 Delivery O2 Flow Rate FiO2 04/27/19 11:00 98.1 102 16 153/76 (101) 100 Nasal Cannula 4.0 98.1 I & O Intake and Output 04/27/19 06:59 Intake Total 340 ml Output Total 2105 ml Balance -1765 ml Intake Oral 240 ml Tube Feeding 100 ml Output Urine Total 2105 ml Assessment and Plan 1. Acute on chronic respiratory failure, resolved, continue supplemental O2, neb tx 2. aspiration pneumonia - interstitial infiltrate at admission- continue antibiotics, change pantoprazole to po 2. diastolic CHF - stable, not on diuretic at present. 3. JENNIFER - resolved, renal function is at baseline. 4. hx PAF - remains in sinus, on Lovenox. 5. DM2 - now on po diet, resume routine insulin. 6. nutrition - Speech Tx does not feel patient is strong enough to safely swallow at present. Tolerating TF now. 7. UTI - light growth of Klebsiella. Continue abx per ID. 8. debility - continue therapies, transfer back to shelter when ready for discharge. 9. anemia of chronic disease - stable Graciela ESPINOZA MD Apr 27, 2019 11:40
--- NOTE | 2019-04-27 16:33 | EKG ---
[facility] [address] [place] [address] Test Date: 2019-04-27 Test Time: 17:25:26 Pat Name: EVELIA TAI Department: Room: 208 1 Gender: F [employer]: TOMASA : 1960 Requested By: SELINA ENCARNACION Order Number: [id number] Reading MD: Measurements Intervals [place] Rate: 87 P: HI: QRS: -10 QRSD: 70 T: 49 QT: 358 QTc: 431 Interpretive Statements IRREGULAR RHYTHM, NO P-WAVE FOUND LEFTWARD AXIS QRS(T) CONTOUR ABNORMALITY CONSIDER ANTEROSEPTAL MYOCARDIAL DAMAGE POSSIBLY ABNORMAL ECG RI6.02 Compared to ECG 04/02/2019 07:21:28 Left-axis deviation now present Myocardial infarct finding no longer present
[2019-04-27] MEDS: FLUCONAZOLE 200MG/100ML PREMIX 100 ML IV SCH (16:42)
[2019-04-27] MEDS ORDERED: NITROGLYCERIN SUBLINGUAL 0.4 MG BOTTLE OF 25. SL PRN (16:45)
[2019-04-27] MEDS: ATORVASTATIN CALCIUM 20 MG TABLET PO SCH (22:41)
[2019-04-27] MEDS: HYDROcodone/APAP 10/325 1 TAB TABLET PO PRN (22:44)
[2019-04-27] MEDS: INSULIN GLARGINE 300 UNITS/3 ML INSULN.PEN. SQ SCH (22:58)
[2019-04-28 03:00] VITALS: BP 156/74
[2019-04-28] MEDS: MEROPENEM 500 MG in IV NORMAL SALINE 50ML 50 ML IV SCH ×3 (06:27→22:17)
[2019-04-28] MEDS: LEVOTHYROXINE 50 MCG TABLET PO SCH (06:27)
[2019-04-28] MEDS: HYDROcodone/APAP 10/325 1 TAB TABLET PO PRN ×2 (06:34→22:06)
[2019-04-28 07:00] VITALS: BP 156/79
[2019-04-28] MEDS: IPRATRPIUM/ALBUTEROL 0.5/2.5MG 3 ML NEBU. NEB SCH ×4 (07:33→19:58)
--- NOTE | 2019-04-28 08:23 | PDOC ---
Infectious Disease Note Subjective Subjective Walked to the door yesterday 2L O2 Mcgee still in place Denies F/C/N/V/D/SOA/CP ROS ROS per HPI Vital Sign Vital Signs Vital Signs Date Time Temp Pulse Resp B/P (MAP) Pulse Ox O2 Delivery O2 Flow Rate FiO2 04/28/19 07:33 98 Nasal Cannula 3.0 04/28/19 06:34 20 04/28/19 03:00 97.9 85 156/74 (101) 97.9 Physical Exam PHYSICAL EXAM GENERAL: Sitting in the chair,alert, NAD HEENT: Pupils equal, Oral cavity pink, no thrush NECK: Supple, LUNGS: Clear HEART: S1, S2 regular. ABDOMEN: Obese, soft, nontender : Mcgee (04/19) EXTREMITIES: Bilateral lower extremity edema present, erythema, scaly. + yeast groin NEUROLOGIC: Alert and oriented x 3 PIVs Labs Lab Laboratory Tests Test 04/27/19 08:27 04/27/19 11:58 04/27/19 17:28 04/27/19 20:59 Glucose (Fingerstick) 277 mg/dL (70-99) 334 mg/dL (70-99) 263 mg/dL (70-99) 181 mg/dL (70-99) Micro Microbiology 04/21/19 - Final, Complete 04/21/19 - Final, Complete 04/21/19 - Final, Complete 04/21/19 Gram Stain Evaluation - Final, Complete 04/21/19 Sputum Culture - Final, Complete 04/21/19 Sputum Result 1 - Final, Complete 04/20/19 Urine Culture - Final, Complete 04/20/19 Urine Culture Result 1 (CANDACE) - Final, Complete 04/20/19 Antimicrobic Susceptibility - Final, Complete Objective Assessment Healthcare facility associated pneumonia may have been possible aspiration. sputum culture neg Recurrent UIT, ESBL Klebsiella, 04/20 -h/o ESBL E. coli Leukocytosis Acute Respiratory failure. Renal insufficiency. Urinary tract infection.UC 20-50 K of possible ESBL Klebsiella Diabetes. Hypertension. Chronic obstructive pulmonary disease. Congestive heart failure. Coronary artery disease. Atrial fibrillation. Loose bm C diff neg 04/23 Plan Plan of Care Continue Zyvox, Meropenem (04/23) and Diflucan. will de-escalate soon Probiotics PT/OT D/c Mcgee if not needed Patient seen and examined. Chart reviewed in detail. Case discussed with POTATO CHIP SORTER. Agree with above plan. JEANETTE GUERIN APRN Apr 28, 2019 08:23 NASRA CERON MD Apr 28, 2019 16:32
[2019-04-28] MEDS: CILOSTAZOL 50 MG TABLET. PO SCH ×2 (08:36→22:03)
[2019-04-28] MEDS: PREGABALIN 75 MG CAPSULE PO SCH ×2 (08:36→22:04)
[2019-04-28] MEDS: DULoxetine HCL 30 MG CAPSULE.DR PO SCH ×2 (08:37→22:04)
[2019-04-28] MEDS: PANTOPRAZOLE 40 MG TABLET.DR. PO SCH (08:37)
[2019-04-28] MEDS: ASPIRIN CHEWABLE 81 MG TABLET. PO SCH (08:37)
[2019-04-28] MEDS: APIXABAN 5 MG TABLET. PO SCH ×2 (08:38→22:04)
[2019-04-28] MEDS: LACTOBACILLUS RHAMNOSUS GG 1 CAPSULE. PO SCH ×2 (08:38→22:15)
[2019-04-28] MEDS: ISOSORBIDE MONONITRATE ER 30 MG TAB.ER.24H PO SCH (08:38)
[2019-04-28] MEDS: INSULIN LISPRO 300 UNITS/3 ML INSULN.PEN. SQ SCH ×6 (08:46→17:52)
[2019-04-28] MEDS: NYSTATIN TOPICAL POWDER 15GM BOTTLE. TP SCH ×2 (08:49→22:27)
--- NOTE | 2019-04-28 09:16 | PDOC ---
PULMONARY PROGRESS NOTES Subjective SITTING UP IN CHAIR NO REPS DISTRESS NO NEW COMPLAINTS Vitals Vital Signs Date Time Temp Pulse Resp B/P (MAP) Pulse Ox O2 Delivery O2 Flow Rate FiO2 04/28/19 08:38 98 156/74 04/28/19 08:00 3.0 04/28/19 07:34 98 Nasal Cannula 04/28/19 07:00 98.3 20 98.3 ROS: No Nausea, No Chest Pain, No Abdominal Pain, No Increase Cough General: No acute distress Lungs: Clear Cardiovascular: S1, S2 Abdomen: Soft, Non-tender, Other Neuro Exam: Alert Extremities: Other (1+edema) Skin: Warm Labs Laboratory Tests Test 04/26/19 11:52 04/26/19 17:11 04/26/19 21:03 04/27/19 08:27 Glucose (Fingerstick) 257 mg/dL (70-99) 210 mg/dL (70-99) 207 mg/dL (70-99) 277 mg/dL (70-99) Test 04/27/19 11:58 04/27/19 17:28 04/27/19 20:59 04/28/19 08:31 Glucose (Fingerstick) 334 mg/dL (70-99) 263 mg/dL (70-99) 181 mg/dL (70-99) 215 mg/dL (70-99) Laboratory Tests Test 04/27/19 11:58 04/27/19 17:28 04/27/19 20:59 04/28/19 08:31 Glucose (Fingerstick) 334 mg/dL (70-99) 263 mg/dL (70-99) 181 mg/dL (70-99) 215 mg/dL (70-99) Medications Active Scripts Medications Dose Route/Sig Max Daily Dose Days Date Category Dose Instructions Humalog (Insulin Lispro) 100 Unit/1 Ml Insuln.pen 30 Units SQ TIDWMEALS 30 04/15/19 Rx Toprol Xl (Metoprolol Succinate) 50 Mg Tab.er.24h 100 Mg PO DAILY 04/15/19 Rx Hydralazine Hcl 25 Mg Tablet 50 Mg PO TID 04/15/19 Rx Cilostazol 50 Mg Tablet 50 Mg PO BID 04/15/19 Rx Xanax (Alprazolam) 0.5 Mg Tablet 0.5 Mg PO PRN Q6HRS PRN 04/15/19 Rx Lantus Solostar (Insulin Glargine,Hum.rec.anlog) 100 Unit/1 Ml Insuln.pen 75 Unit SQ BID 12/28/18 Reported Ondansetron Odt (Ondansetron) 4 Mg Tab.rapdis 1 Tab PO PRN Q6-8HRS 10/23/18 Rx Tizanidine Hcl 4 Mg Tablet 1 Tab PO TID 10/13/18 Reported Nystop (Nystatin) 60 Gm Powder 1 Sally TP BID 30 09/02/18 Rx Duloxetine Hcl 60 Mg Capsule.dr 60 Mg PO BID 10/26/17 Reported Trulicity (Dulaglutide) 0.75 Mg/0.5 Ml Pen.injctr 0.75 Mg SUBCUT QFR 10/26/17 Reported Amlodipine Besylate 5 Mg Tablet 5 Mg PO DAILY 10/26/17 Reported Colace (Docusate Sodium) 100 Mg Capsule 100 Mg PO BID 03/24/17 Rx Senna-Time S Tablet (Sennosides/Docusate Sodium) 1 Each Tablet 1 Tab PO BID 03/24/17 Rx Ventolin Hfa Inhaler (Albuterol Sulfate) 18 Gm Hfa.aer.ad 2 Puff INH PRN Q4HRS PRN 03/19/17 Reported Duoneb 0.5-3(2.5) Mg/3 Ml (Albuterol/Ipratropium) 3 Ml Ampul.neb 3 Ml NEB PRN QID PRN 03/19/17 Reported Flonase Allergy Relief (Fluticasone Propionate) 9.9 Ml [place].susp 2 Sprays NS PRN PRN 03/19/17 Reported Clonidine Hcl 0.1 Mg Tablet 1 Tab PO PRN PRN 03/19/17 Reported When SBP >150 Eliquis (Apixaban) 5 Mg Tablet 5 Mg PO BID 03/19/17 Reported Lyrica (Pregabalin) 150 Mg Capsule 1 Cap PO BID 10/07/16 Reported Atorvastatin Calcium 20 Mg Tablet 2 Tab PO HS 10/06/16 Reported Nexium Capsule (Esomeprazole Magnesium) 40 Mg Capsule.dr 1 Cap PO BID 10/06/16 Reported Aspirin 81 Mg Tab.chew 1 Tab PO DAILY 10/06/16 Reported Nitrostat (Nitroglycerin) 0.4 Mg Tab.subl 0.4 Mg SL PRN Q5MIN PRN 30 05/02/16 Rx Levothyroxine Sodium 50 Mcg Tablet 1 Tab PO DAILY 10/22/15 Reported Comments NO NEW CXR Impression . 1. Aqhzm-ld-qzbihik hypercapnic respiratory failure. The etiology related to suspected right heart failure. extubated 04/23 2. Underlying obesity hypoventilation syndrome/obstructive sleep apnea, on home BiPAP and oxygen at 3 L. 3. Abnormal chest x-ray consistent with mild congestive heart failure, ACUTE/ CHRONIC HF 4. Lower extremity edema. 5. Chronic kidney disease 6. Minimal history of tobacco use. 7. metabolic acidosis combined with respiratory acidosis POA. corrected. Plan . ANTI BX PER ID MAY NEED SNU WILL CONTINUE THE SAME UP TO CHAIR D/W RN BIPAP 02 DEESCALATE ANTIBX PER ID RONA CRAFT MD Apr 28, 2019 09:16
[2019-04-28] MEDS: ANTI-COAG MONITOR BY PHARMACY. MC PRN (09:59)
[2019-04-28 11:00] VITALS: BP 141/60
--- NOTE | 2019-04-28 13:14 | PDOC ---
PROGRESS NOTES Subjective She wants unrestricted diet, currently on level 2 dysphagia but not choking and wants ice, respiratory status continues to improve, weight down 10 kg, Speech therapy last saw her on Monday Objective Afebrile General: NAD, up in chair, eating without difficulty Heart: RRR Lungs: CTA Abd: obese, soft Ext: no cyanosis Vital Signs Vital Signs Date Time Temp Pulse Resp B/P (MAP) Pulse Ox O2 Delivery O2 Flow Rate FiO2 04/28/19 11:10 Nasal Cannula 3.0 04/28/19 08:38 98 156/74 04/28/19 07:34 98 04/28/19 07:00 98.3 20 98.3 I & O Intake and Output 04/28/19 07:00 Intake Total 200 ml Output Total 1200 ml Balance -1000 ml Intake Oral 200 ml Output Urine Total 1200 ml # Bowel Movements 1 Assessment and Plan 1. Acute on chronic respiratory failure, resolved, continue supplemental O2, neb tx 2. aspiration pneumonia - interstitial infiltrate at admission- continue antibiotics, change pantoprazole to po 2. diastolic CHF - stable, not on diuretic at present. 3. JENNIFER - resolved, renal function is at baseline. 4. hx PAF - remains in sinus, on Lovenox. 5. DM2 - now on po diet, resume routine insulin. 6. nutrition - tolerating diet, wants ice, Speech to follow up again tomorrow 7. UTI - light growth of Klebsiella. Continue abx per ID. 8. debility - continue therapies, transfer back to [facility] tomorrow. 9. anemia of chronic disease - stable Graciela ESPINOZA MD Apr 28, 2019 13:14
[2019-04-28 15:00] VITALS: BP 126/53
[2019-04-28] MEDS: FLUCONAZOLE 200MG/100ML PREMIX 100 ML IV SCH (15:51)
[2019-04-28 19:00] VITALS: BP 150/56
[2019-04-28] MEDS: ATORVASTATIN CALCIUM 20 MG TABLET PO SCH (22:05)
[2019-04-28] MEDS: tiZANidine 4 MG TABLET. PO PRN (22:15)
[2019-04-28] MEDS: INSULIN GLARGINE 300 UNITS/3 ML INSULN.PEN. SQ SCH (22:27)
[2019-04-28 23:00] VITALS: BP 164/70
[2019-04-29 03:05] VITALS: BP 126/60
[2019-04-29] MEDS: MEROPENEM 500 MG in IV NORMAL SALINE 50ML 50 ML IV SCH (06:01)
[2019-04-29] MEDS: LEVOTHYROXINE 50 MCG TABLET PO SCH (06:01)
[2019-04-29 07:00] VITALS: BP 122/56
[2019-04-29] MEDS: INSULIN LISPRO 300 UNITS/3 ML INSULN.PEN. SQ SCH ×6 (07:30→18:00)
[2019-04-29] MEDS: IPRATRPIUM/ALBUTEROL 0.5/2.5MG 3 ML NEBU. NEB SCH ×4 (07:53→20:00)
--- NOTE | 2019-04-29 07:59 | PDOC ---
SUBJECTIVE Subjective Pt states that she is feeling much better. Had urinary catheter removed y esterday, wasn't able to pee until this morning but had 650cc out. Feels that she is eating well. Denies any current chest pain or shortness of breath. She is hoping to get back to [facility] today OBJECTIVE Vital Signs Vital Signs Date Time Temp Pulse Resp B/P (MAP) Pulse Ox O2 Delivery O2 Flow Rate FiO2 04/29/19 04:17 92 BiPAP/CPAP 04/29/19 03:05 97.4 84 18 126/60 (82) 98 BiPAP/CPAP 97.4 04/29/19 02:05 92 BiPAP/CPAP 04/29/19 00:04 92 BiPAP/CPAP 04/28/19 23:06 20 92 Nasal Cannula 4.0 04/28/19 23:00 98.2 98 20 164/70 (101) 100 Nasal Cannula 4.0 98.2 04/28/19 22:06 92 150/56 04/28/19 22:06 22 95 Nasal Cannula 2.0 04/28/19 20:00 Nasal Cannula 3.0 04/28/19 19:59 95 Nasal Cannula 2.0 04/28/19 19:00 97.9 92 20 150/56 (87) 100 Nasal Cannula 4.0 97.9 04/28/19 15:55 95 Nasal Cannula 2.0 04/28/19 15:52 91 141/60 04/28/19 15:00 98.2 97 20 126/53 (77) 97 Nasal Cannula 4.0 98.2 04/28/19 11:10 Nasal Cannula 3.0 04/28/19 11:00 98.3 91 20 141/60 (87) 98 Nasal Cannula 4.0 98.3 04/28/19 08:38 98 156/74 04/28/19 08:37 98 156/74 04/28/19 08:37 98 156/74 04/28/19 08:00 3.0 04/28/19 08:00 Nasal Cannula 3.0 I & O Intake and Output 04/29/19 06:59 Intake Total 500 ml Output Total 650 ml Balance -150 ml Intake Oral 500 ml Output Urine Total 650 ml PHYSICAL EXAM Physical Exam General: NAD, up in chair, NC in place, appears comfortable Heart: irregular rhythm, normal rate, no significant murmurs appreciated today Lungs: CTAB, regular breathing rate and effort Abd: obese, soft Ext: no cyanosis, chronic lymphedema present Neuro: CN2-12 GI ASSESSMENT/PLAN Assessment/Plan Pt is a 58yo CF admitted for acute on chronic respiratory failure that was multifactorial 1. Acute on chronic respiratory failure, resolved. Pt initially required intubation, back on home O2 requirements. Continue neb tx- pt hoping to go back to [facility] today. Will wait until specialists have seen and cleared 2. aspiration pneumonia/UTI - interstitial infiltrate at admission, currently on Linezolid. Also on Fluconazole 2. diastolic CHF - compensated, not on diuretic at present. 3. JENNIFER - resolved, renal function is at baseline. 4. hx PAF - remains in sinus, pt back on Eliquis 5. DM2 - now on po diet. HbA1C this admission was >14. BS were not at goal but appear to have improved since starting on home insulin. Pt continued on Lantus 75U QHS, Lispro 30U QAC and SSI (received 5 units over last 24H) 6. nutrition- swallowing dysfunction. Dysphagia II diet 7. debility - continue therapies 8. anemia of chronic disease - stable 9. PAD- pt continued on Pletal 10. Depression/Anxiety- pt continued on Cymbalta 60mg BID and Xanax prn 11. CAD- pt continued on Imdur 60mg 12. Afib- rate controlled. Pt currently on Diltiazem 120mg and Eliquis 5mg BID 13. HLD- pt continued on Atorvastatin 14. Hypothyroidism- previously at goal. Repeat TSH ordered. Pt continued on levothyroxine 50mcg COMMENT Lab Laboratory Tests Test 04/28/19 08:31 04/28/19 12:35 04/28/19 16:37 04/28/19 20:53 Glucose (Fingerstick) 215 mg/dL (70-99) 149 mg/dL (70-99) 147 mg/dL (70-99) 152 mg/dL (70-99) ESTHELA JEREZ MD Apr 29, 2019 07:59
--- NOTE | 2019-04-29 08:39 | PDOC ---
PULMONARY PROGRESS NOTES Subjective SITTING UP IN CHAIR NO REPS DISTRESS NO NEW COMPLAINTS Vitals Vital Signs Date Time Temp Pulse Resp B/P (MAP) Pulse Ox O2 Delivery O2 Flow Rate FiO2 04/29/19 07:53 98 Nasal Cannula 2.0 04/29/19 03:05 97.4 84 18 126/60 (82) 97.4 ROS: No Nausea, No Chest Pain, No Abdominal Pain, No Increase Cough General: No acute distress Lungs: Clear Cardiovascular: S1, S2 Abdomen: Soft, Non-tender, Other Neuro Exam: Alert Extremities: Other (1+edema) Skin: Warm Labs Laboratory Tests Test 04/27/19 11:58 04/27/19 17:28 04/27/19 20:59 04/28/19 08:31 Glucose (Fingerstick) 334 mg/dL (70-99) 263 mg/dL (70-99) 181 mg/dL (70-99) 215 mg/dL (70-99) Test 04/28/19 12:35 04/28/19 16:37 04/28/19 20:53 Glucose (Fingerstick) 149 mg/dL (70-99) 147 mg/dL (70-99) 152 mg/dL (70-99) Laboratory Tests Test 04/28/19 12:35 04/28/19 16:37 04/28/19 20:53 Glucose (Fingerstick) 149 mg/dL (70-99) 147 mg/dL (70-99) 152 mg/dL (70-99) Medications Active Scripts Medications Dose Route/Sig Max Daily Dose Days Date Category Dose Instructions Humalog (Insulin Lispro) 100 Unit/1 Ml Insuln.pen 30 Units SQ TIDWMEALS 30 04/15/19 Rx Toprol Xl (Metoprolol Succinate) 50 Mg Tab.er.24h 100 Mg PO DAILY 04/15/19 Rx Hydralazine Hcl 25 Mg Tablet 50 Mg PO TID 04/15/19 Rx Cilostazol 50 Mg Tablet 50 Mg PO BID 04/15/19 Rx Xanax (Alprazolam) 0.5 Mg Tablet 0.5 Mg PO PRN Q6HRS PRN 04/15/19 Rx Lantus Solostar (Insulin Glargine,Hum.rec.anlog) 100 Unit/1 Ml Insuln.pen 75 Unit SQ BID 12/28/18 Reported Ondansetron Odt (Ondansetron) 4 Mg Tab.rapdis 1 Tab PO PRN Q6-8HRS 10/23/18 Rx Tizanidine Hcl 4 Mg Tablet 1 Tab PO TID 10/13/18 Reported Nystop (Nystatin) 60 Gm Powder 1 Sally TP BID 30 09/02/18 Rx Duloxetine Hcl 60 Mg Capsule.dr 60 Mg PO BID 10/26/17 Reported Trulicity (Dulaglutide) 0.75 Mg/0.5 Ml Pen.injctr 0.75 Mg SUBCUT QFR 10/26/17 Reported Amlodipine Besylate 5 Mg Tablet 5 Mg PO DAILY 10/26/17 Reported Colace (Docusate Sodium) 100 Mg Capsule 100 Mg PO BID 03/24/17 Rx Senna-Time S Tablet (Sennosides/Docusate Sodium) 1 Each Tablet 1 Tab PO BID 03/24/17 Rx Ventolin Hfa Inhaler (Albuterol Sulfate) 18 Gm Hfa.aer.ad 2 Puff INH PRN Q4HRS PRN 03/19/17 Reported Duoneb 0.5-3(2.5) Mg/3 Ml (Albuterol/Ipratropium) 3 Ml Ampul.neb 3 Ml NEB PRN QID PRN 03/19/17 Reported Flonase Allergy Relief (Fluticasone Propionate) 9.9 Ml [place].susp 2 Sprays NS PRN PRN 03/19/17 Reported Clonidine Hcl 0.1 Mg Tablet 1 Tab PO PRN PRN 03/19/17 Reported When SBP >150 Eliquis (Apixaban) 5 Mg Tablet 5 Mg PO BID 03/19/17 Reported Lyrica (Pregabalin) 150 Mg Capsule 1 Cap PO BID 10/07/16 Reported Atorvastatin Calcium 20 Mg Tablet 2 Tab PO HS 10/06/16 Reported Nexium Capsule (Esomeprazole Magnesium) 40 Mg Capsule.dr 1 Cap PO BID 10/06/16 Reported Aspirin 81 Mg Tab.chew 1 Tab PO DAILY 10/06/16 Reported Nitrostat (Nitroglycerin) 0.4 Mg Tab.subl 0.4 Mg SL PRN Q5MIN PRN 30 05/02/16 Rx Levothyroxine Sodium 50 Mcg Tablet 1 Tab PO DAILY 10/22/15 Reported Comments NO NEW CXR Impression . 1. Umbsa-kc-poeyifx hypercapnic respiratory failure. The etiology related to suspected right heart failure. extubated 04/23 2. Underlying obesity hypoventilation syndrome/obstructive sleep apnea, on home BiPAP and oxygen at 3 L. 3. Abnormal chest x-ray consistent with mild congestive heart failure, ACUTE/ CHRONIC HF 4. Lower extremity edema. 5. Chronic kidney disease 6. Minimal history of tobacco use. 7. metabolic acidosis combined with respiratory acidosis POA. corrected. Plan . RESP STATUS IS COMPENSATED MAY NEED SNU WILL CONTINUE THE SAME UP TO CHAIR D/W RN BIPAP 02 DEESCALATE ANTIBX PER RONA OROZCO MD Apr 29, 2019 08:39
[2019-04-29] MEDS ORDERED: INSULIN LISPRO 300 UNITS/3 ML INSULN.PEN. SQ ONE (09:00)
[2019-04-29] MEDS: ISOSORBIDE MONONITRATE ER 30 MG TAB.ER.24H PO SCH (09:20)
[2019-04-29] MEDS: CILOSTAZOL 50 MG TABLET. PO SCH ×2 (09:20→21:15)
[2019-04-29] MEDS: PANTOPRAZOLE 40 MG TABLET.DR. PO SCH (09:20)
[2019-04-29] MEDS: LACTOBACILLUS RHAMNOSUS GG 1 CAPSULE. PO SCH ×2 (09:20→21:15)
[2019-04-29] MEDS: PREGABALIN 75 MG CAPSULE PO SCH ×2 (09:21→21:15)
[2019-04-29] MEDS: ASPIRIN CHEWABLE 81 MG TABLET. PO SCH (09:21)
[2019-04-29] MEDS: DULoxetine HCL 30 MG CAPSULE.DR PO SCH ×2 (09:21→21:15)
[2019-04-29] MEDS: APIXABAN 5 MG TABLET. PO SCH ×2 (09:21→21:16)
[2019-04-29] MEDS: tiZANidine 4 MG TABLET. PO PRN (09:26)
[2019-04-29] MEDS: NYSTATIN TOPICAL POWDER 15GM BOTTLE. TP SCH ×2 (09:32→21:16)
--- NOTE | 2019-04-29 09:36 | PDOC ---
Infectious Disease Note Subjective Subjective Hungry, breakfast held due to high glucose 2L O2 Sleeps in he chair Legs much better Denies F/C/N/V/D/SOA/CP Passing urine ok ROS ROS per HPI Vital Sign Vital Signs Vital Signs Date Time Temp Pulse Resp B/P (MAP) Pulse Ox O2 Delivery O2 Flow Rate FiO2 04/29/19 07:53 98 Nasal Cannula 2.0 04/29/19 03:05 97.4 84 18 126/60 (82) 97.4 Physical Exam PHYSICAL EXAM GENERAL: Sitting in the chair,alert, NAD HEENT: Pupils equal, Oral cavity pink, no thrush NECK: Supple, LUNGS: Clear HEART: S1, S2 regular. ABDOMEN: Obese, soft, nontender EXTREMITIES: Bilateral lower extremity edema present, erythema, scaly - tubigrips NEUROLOGIC: Alert and oriented x 3 PIVs Labs Lab Laboratory Tests Test 04/28/19 12:35 04/28/19 16:37 04/28/19 20:53 04/29/19 08:14 Glucose (Fingerstick) 149 mg/dL (70-99) 147 mg/dL (70-99) 152 mg/dL (70-99) 490 mg/dL (70-99) Micro Objective Assessment Healthcare facility associated pneumonia may have been possible aspiration. sp utum culture neg Recurrent UIT, ESBL Klebsiella, 04/20 -h/o ESBL E. coli Leukocytosis Acute Respiratory failure. Renal insufficiency. Urinary tract infection.UC 20-50 K of possible ESBL Klebsiella Diabetes. Hypertension. Chronic obstructive pulmonary disease. Congestive heart failure. Coronary artery disease. Atrial fibrillation. Loose bm C diff neg 04/23 Plan Plan of Care Discontinue Zyvox, Meropenem (04/23) and Diflucan. Dose Fosfomycin times one Probiotics Ok to transfer from ID standpoint D/w nursing JEANETTE GUERIN APRN Apr 29, 2019 09:36 TERRY AREVALO MD Apr 29, 2019 12:48
[2019-04-29 11:00] VITALS: BP 129/58
--- NOTE | 2019-04-29 12:28 | NUR ---
SS following up with discharge planning. SS phoned and faxed updated PT/OT notes to [facility], ; fax [phone]. Pt accepted at [facility] pending insurance authorization. SS will await authorization and will proceed accordingly with discharge planning.
[2019-04-29] MEDS: ANTI-COAG MONITOR BY PHARMACY. MC PRN (12:39)
[2019-04-29] MEDS ORDERED: FOSFOMYCIN TROMETHAMINE 3 GM PACKET PO ONE (13:30)
[2019-04-29 15:00] VITALS: BP 121/52
[2019-04-29 19:45] VITALS: BP 157/70
[2019-04-29] MEDS: ATORVASTATIN CALCIUM 20 MG TABLET PO SCH (21:14)
[2019-04-29] MEDS: INSULIN GLARGINE 300 UNITS/3 ML INSULN.PEN. SQ SCH (21:24)
[2019-04-29 23:24] VITALS: BP 164/64
[2019-04-30] MEDS: tiZANidine 4 MG TABLET. PO PRN ×2 (00:24→23:04)
[2019-04-30] MEDS: HYDROcodone/APAP 10/325 1 TAB TABLET PO PRN ×3 (00:25→23:04)
--- NOTE | 2019-04-30 00:28 | NUR ---
Pt on [employer] at 0025.
[2019-04-30 03:00] VITALS: BP 152/65
[2019-04-30] MEDS: LEVOTHYROXINE 50 MCG TABLET PO SCH (06:00)
[2019-04-30 07:00] VITALS: BP 158/78
[2019-04-30] MEDS: INSULIN LISPRO 300 UNITS/3 ML INSULN.PEN. SQ SCH ×6 (07:30→16:37)
[2019-04-30] MEDS: IPRATRPIUM/ALBUTEROL 0.5/2.5MG 3 ML NEBU. NEB SCH ×4 (08:05→19:45)
[2019-04-30] MEDS: APIXABAN 5 MG TABLET. PO SCH ×2 (09:10→20:30)
[2019-04-30] MEDS: CILOSTAZOL 50 MG TABLET. PO SCH ×2 (09:10→20:30)
[2019-04-30] MEDS: NYSTATIN TOPICAL POWDER 15GM BOTTLE. TP SCH ×2 (09:10→20:29)
[2019-04-30] MEDS: LACTOBACILLUS RHAMNOSUS GG 1 CAPSULE. PO SCH ×2 (09:10→20:30)
[2019-04-30] MEDS: ASPIRIN CHEWABLE 81 MG TABLET. PO SCH (09:10)
[2019-04-30] MEDS: PANTOPRAZOLE 40 MG TABLET.DR. PO SCH (09:10)
[2019-04-30] MEDS: PREGABALIN 75 MG CAPSULE PO SCH ×2 (09:11→20:30)
[2019-04-30] MEDS: DULoxetine HCL 30 MG CAPSULE.DR PO SCH ×2 (09:11→20:30)
[2019-04-30] MEDS: ISOSORBIDE MONONITRATE ER 30 MG TAB.ER.24H PO SCH (09:11)
[2019-04-30] MEDS ORDERED: INSU100I13 SQ (09:22)
[2019-04-30] MEDS ORDERED: ISOS30TA4 PO (09:22)
[2019-04-30] MEDS ORDERED: INSU100I11 SQ (09:22)
[2019-04-30] MEDS ORDERED: DILT120C85 PO (09:22)
[2019-04-30] MEDS ORDERED: LACT1CAP19 PO (09:22)
--- NOTE | 2019-04-30 09:27 | PDOC3 ---
Discharge Summary Date of Admission: Apr 20, 2019 Date of Discharge: Apr 30, 2019 Follow-Up: Other (7-10 days after D/C from SNF) Admitting Diagnosis comment: Acute on chronic respiratory failure FINAL DIAGNOSIS Acute on chronic respiratory failure, Aspiration pneumonia, UTI, Diastolic CHF, JENNIFER-resolved, hx PAF, DM2, swallowing dysfunction, debility, anemia of chronic disease, PAD, Depression/Anxiety, CAD, Afib, HLD, Hypothyroidism Brief Hospital Course DISCHARGE PHYSICAL EXAM General: NAD, up in chair, NC in place, appears comfortable HEENT: TMs clear Heart: regular rhythm, normal rate, no significant murmurs appreciated today Lungs: CTAB, regular breathing rate and effort Abd: obese, soft Ext: no cyanosis, chronic lymphedema present Neuro: CN2-12 GI Pt is a 58yo CF admitted for acute on chronic respiratory failure that was multifactorial 1. Acute on chronic respiratory failure, resolved. Pt initially required intubation, back on home O2 requirements. Continue neb tx- DC to [address] [facility] today 2. aspiration pneumonia/UTI - interstitial infiltrate at admission. ID was following. They have stopped all her antibiotics and her fluconazole. 2. diastolic CHF - compensated, not on diuretic at present. 3. JENNIFER - resolved, renal function is at baseline. 4. hx PAF - remains in sinus, pt back on Eliquis. Pt's BP in 150s systolic with normal rate, will resume pt's Metoprolol on D/C 5. DM2 - now on po diet. HbA1C this admission was >14. BS were not at goal but appear to have improved since starting on home insulin. Pt continued on Lantus 75U QHS, Lispro 30U QAC and SSI (no additional units over past 24H) 6. nutrition- swallowing dysfunction. Dysphagia II diet 7. debility - continue therapies 8. anemia of chronic disease - stable 9. PAD- pt continued on Pletal 10. Depression/Anxiety- pt continued on Cymbalta 60mg BID and Xanax prn 11. CAD- pt continued on Imdur 60mg 12. Afib- rate controlled. Pt currently on Diltiazem 120mg and Eliquis 5mg BID 13. HLD- pt continued on Atorvastatin 14. Hypothyroidism- previously at goal. TSH only mildly elevated. Pt continued on levothyroxine 50mcg Discharge Medications Current Medications Albuterol Sulfate (Ventolin Neb Soln) 2.5 mg STK-MED ONCE .ROUTE ; Start at 20:52; Stop 04/19/19 at 20:53; Status DC Ipratropium [place] (Atrovent) 0.5 mg 1X ONCE NEB Last administered on 04/19at 21:00; Start 04/19/19 at 21:00; Stop 04/19/19 at 21:01; Status DC Methylprednisolone Sodium Succinate (SOLU-Medrol 125MG VIAL) 250 mg 1X ONCE IV Last administered on 04/19/19at 21:08; Start 04/19/19 at 21:00; Stop 04/19/19 at 21:01; Status DC Albuterol Sulfate (Ventolin Neb Soln) 10 mg 1X ONCE CONT NEB Last administered on 04/19/19at 21:00; Start 04/19/19 at 21:00; Stop 04/19/19 at 21:01; Status DC Morphine Sulfate (Morphine Sulfate) 2 mg PRN Q15MIN PRN IV/SQ PAIN GREATER THAN 3/10 Last administered on 04/19/19at 21:14; Start 04/19/19 at 21:00; Stop 04/20/19 at 14:38; Status DC Furosemide (Lasix) 80 mg 1X ONCE IVP Last administered on 04/19/19at 21:20; Start 04/19/19 at 21:30; Stop 04/19/19 at 21:31; Status DC Propofol 50 ml @ As Directed STK-MED ONCE IV ; Start 04/19/19 at 21:42; Stop 04/19/19 at 21:43; Status DC Propofol 100 ml @ 0 mls/hr CONT PRN IV SEE PROTOCOL Last administered on 04/23/19at 04:28; Start 04/19/19 at 22:00 Etomidate (Amidate) 20 mg STK-MED ONCE IV ; Start 04/19/19 at 22:13; Stop 04/19/19 at 22:14; Status DC Vecuronium [place] (Norcuron Bolus) 10 mg STK-MED ONCE IV ; Start 04/19/19 at 22:13; Stop 04/19/19 at 22:14; Status DC Midazolam HCl (Versed) 5 mg 1X ONCE NS ; Start 04/19/19 at 22:30; Stop 04/19/19 at 22:31; Status DC Propofol 50 ml @ 1.551 mls/ hr 1X ONCE IV Last administered on 04/19/19at 21:47; Start 04/19/19 at 21:40; Stop 04/21/19 at 05:54; Status DC Vecuronium [place] (Norcuron Bolus) 20 mg 1X ONCE IV Last administered on 04/19/19at 21:39; Start 04/19/19 at 21:40; Stop 04/19/19 at 22:39; Status DC Etomidate (Amidate) 30 mg 1X ONCE IV Last administered on 04/19/19at 21:38; Start 04/19/19 at 21:40; Stop 04/19/19 at 22:39; Status DC Midazolam HCl (Versed) 5 mg 1X ONCE IV Last administered on 04/19/19at 22:23; Start 04/19/19 at 22:45; Stop 04/19/19 at 22:46; Status DC Albuterol/ Ipratropium (Duoneb) 3 ml RTQID NEB Last administered on 04/30/19at 08:05; Start 04/20/19 at 08:00 Albuterol Sulfate (Ventolin Neb Soln) 2.5 mg PRN Q4HRS PRN NEB SHORTNESS OF BREATH Last administered on 04/20/19at 03:20; Start 04/20/19 at 02:00 Heparin Sodium (Porcine) (Heparin Sodium) 5,000 unit Q8HRS SQ ; Start 04/20/19 at 14:00; Stop 04/20/19 at 14:00; Status DC Piperacillin Sod/ Tazobactam Sod (Zosyn Per Pharmacy) 1 each PRN DAILY PRN MC SEE COMMENTS; Start 04/20/19 at 10:00; Stop 04/23/19 at 09:00; Status DC Sodium Bicarbonate (Sodium Bicarb Adult 8.4% Syr) 50 meq 1X ONCE IV Last administered on 04/20/19at 11:11; Start 04/20/19 at 11:00; Stop 04/20/19 at 11:11; Status DC Piperacillin Sod/ Tazobactam Sod 2.25 gm/Sodium Chloride 50 ml @ 100 mls/hr Q6HRS IV Last administered on 04/23/19at 05:56; Start 04/20/19 at 12:00; Stop 04/23/19 at 07:46; Status DC Insulin Human Lispro (HumaLOG) 0-9 UNITS TIDWMEALS SQ ; Start 04/20/19 at 12:00; Stop 04/20/19 at 12:00; Status DC Dextrose (Dextrose 50%-Water Syringe) 12.5 gm PRN Q15MIN PRN IV SEE COMMENTS Last administered on 04/23/19at 18:10; Start 04/20/19 at 11:00 Alprazolam (Xanax) 0.5 mg PRN Q6HRS PRN PO ANXIETY / AGITATION; Start 04/20/19 at 11:00 Amlodipine Besylate (Norvasc) 5 mg DAILY PO Last administered on 04/23/19at 08:07; Start 04/20/19 at 12:00; Stop 04/23/19 at 12:18; Status DC Apixaban (Eliquis) 5 mg BID PO Last administered on 04/24/19at 09:39; Start 04/20/19 at 12:00; Stop 04/25/19 at 08:01; Status DC Aspirin (Children'S Aspirin) 81 mg DAILY PO Last administered on 04/30/19at 09:12; Start 04/20/19 at 12:00 Atorvastatin Calcium (Lipitor) 40 mg HS PO Last administered on 04/29/19at 21:14; Start 04/20/19 at 21:00 Cilostazol (Pletal) 50 mg BID PO Last administered on 04/30/19at 09:12; Start 04/20/19 at 12:00 Acetaminophen/ Hydrocodone Bitart (Lortab 10/325) 1 tab PRN Q6HRS PRN PO SEVERE PAIN 7-10 Last administered on 04/30/19at 08:38; Start 04/20/19 at 11:00 Insulin Glargine (Lantus) 75 units BID SQ Last administered on 04/23/19at 08:31; Start 04/20/19 at 12:00; Stop 04/26/19 at 07:31; Status DC Insulin Human Lispro (HumaLOG) 30 units TIDWMEALS SQ ; Start 04/20/19 at 12:00; Stop 04/20/19 at 12:00; Status DC Metoprolol Succinate (Toprol Xl) 100 mg DAILY PO ; Start 04/20/19 at 12:00; Status Cancel Nitroglycerin (Nitrostat) 0.4 mg PRN Q5MIN PRN SL CP RATING > 1/10; Start 04/20/19 at 11:00; Stop 04/24/19 at 15:14; Status DC Nystatin (Nystop) 1 sally BID TP Last administered on 04/30/19 09:12; Start 04/20/19 at 12:00 Duloxetine HCl (Cymbalta) 60 mg BID PO Last administered on 04/20/19at 21:16; Start 04/20/19 at 12:00; Stop 04/21/19 at 08:10; Status DC Pantoprazole Sodium (Protonix) 40 mg DAILYAC PO ; Start 04/20/19 at 12:00; Stop 04/20/19 at 12:00; Status DC Fluticasone Propionate (Flonase) 2 spray PRN DAILY PRN NS ALLERGIES Last administered on 04/21/19at 17:30; Start 04/20/19 at 12:00; Stop 04/30/19 at 09:15; Status DC Hydralazine HCl (Apresoline) 50 mg TID PO Last administered on 04/30/19at 09:12; Start 04/20/19 at 14:00 Levothyroxine Sodium (Synthroid) 50 mcg DAILY06 PO Last administered on 04/30/19at 08:38; Start 04/20/19 at 12:00 Pregabalin (Lyrica) 150 mg BID PO Last administered on 04/30/19at 09:12; Start 04/20/19 at 12:00 Tizanidine HCl (Zanaflex) 4 mg PRN Q8HRS PRN PO MUSCLE SPASMS Last administered on 04/30/19at 00:24; Start 04/20/19 at 11:00 Famotidine (Pepcid Vial) 20 mg DAILY IVP ; Start 04/21/19 at 09:00; Status Cancel Insulin Human Lispro (HumaLOG) 0-9 UNITS Q6HRS SQ Last administered on 04/26/19at 17:16; Start 04/20/19 at 12:00; Stop 04/27/19 at 00:00; Status DC Insulin Human Lispro (HumaLOG) 30 units Q6HRS SQ Last administered on 04/23/19 13:02; Start 04/20/19 at 12:00; Stop 04/26/19 at 07:31; Status DC Pantoprazole Sodium (PROTONIX VIAL for IV PUSH) 40 mg DAILYAC IVP Last administered on 04/27/19 08:45; Start 04/21/19 at 07:30; Stop 04/27/19 at 11:44; Status DC Metoprolol Tartrate (Lopressor) 50 mg BID PO Last administered on 04/24/19 09:44; Start 04/20/19 at 12:30; Stop 04/25/19 at 12:46; Status DC Acetaminophen (Tylenol) 650 mg PRN Q6HRS PRN PEG MILD PAIN / TEMP; Start 04/20/19 at 16:00; Stop 04/26/19 at 07:33; Status DC Venlafaxine HCl (Effexor) 50 mg TID NG Last administered on 04/27/19 22:39; Start 04/21/19 at 09:00; Stop 04/27/19 at 21:01; Status DC Furosemide (Lasix) 20 mg 1X ONCE IVP Last administered on 04/21/19 11:49; Start 04/21/19 at 11:45; Stop 04/21/19 at 11:48; Status DC Linezolid/Dextrose 300 ml @ 300 mls/hr Q12HR IV Last administered on 04/29/19 09:20; Start 04/21/19 at 14:00; Stop 04/29/19 at 12:45; Status DC Fluconazole/ Sodium Chloride 100 ml @ 100 mls/hr Q24H IV Last administered on 04/28/19 15:51; Start 04/21/19 at 14:00; Stop 04/29/19 at 12:48; Status DC Info (Anti-Coagulation Monitoring By Pharmacy) 1 each PRN DAILY PRN MC SEE COMMENTS Last administered on 04/29/19 12:39; Start 04/22/19 at 08:15 Meropenem 500 mg/ Sodium Chloride 50 ml @ 100 mls/hr Q8HRS IV Last administered on 04/29/19 06:01; Start 04/23/19 at 14:00; Stop 04/29/19 at 12:45; Status DC Clonidine HCl (Catapres Tts-1) 1 patch 1X ONCE TD Last administered on 04/23/19at 13:05; Start 04/23/19 at 12:15; Stop 04/23/19 at 12:16; Status DC Nicardipine HCl 50 mg/Sodium Chloride 250 ml @ 25 mls/hr CONT PRN IV SEE I/O RECORD; Start 04/23/19 at 12:15; Stop 04/28/19 at 14:48; Status DC Dextrose 1,000 ml @ 75 mls/hr [id number] IV ; Start 04/23/19 at 18:45; Stop 04/25/19 at 10:47; Status DC Hydralazine HCl (Apresoline Inj) 10 mg PRN Q6HRS PRN IVP ELEVATED BP, SEE COMMENTS Last administered on 04/27/19at 04:24; Start 04/23/19 at 20:15 Labetalol HCl (Normodyne Iv Push) 20 mg PRN Q2HR PRN IVP HYPERTENSION Last administered on 04/25/19at 06:21; Start 04/24/19 at 08:00 Amino Acids/ Glycerin/ Electrolytes 1,000 ml @ 80 mls/hr [id number] IV ; Start 04/24/19 at 10:45; Stop 04/24/19 at 10:55; Status DC Amino Acids/ Glycerin/ Electrolytes 1,000 ml @ 60 mls/hr [id number] IV Last adm inistered on 04/25/19at 04:44; Start 04/24/19 at 11:00; Stop 04/25/19 at 15:39; Status DC Nitroglycerin (Nitro-Bid Oint) 1 inch Q6HRS TP Last administered on 04/26/19at 12:06; Start 04/24/19 at 18:00; Stop 04/26/19 at 15:08; Status DC Nitroglycerin (Nitro-Bid Oint) 1 inch Q6HRS TP ; Start 04/24/19 at 18:00; Status Cancel Morphine Sulfate (Morphine Sulfate) 1 mg PRN Q1HR PRN IV PAIN Last administered on 04/26/19at 03:05; Start 04/24/19 at 19:30 Non-Formulary Medication 1 ea PRN Q3HRS PRN SQ PAIN; Start 04/24/19 at 20:30; Status Cancel Enoxaparin Sodium (Lovenox Per Pharmacy Prophylaxis Dosing) 1 each PRN DAILY PRN MC SEE COMMENTS; Start 04/25/19 at 08:00; Stop 04/26/19 at 15:10; Status DC Enoxaparin Sodium (Lovenox 60mg Syringe) 60 mg Q12HR SQ Last administered on 04/26/19at 09:06; Start 04/25/19 at 08:00; Stop 04/26/19 at 15:09; Status DC Metoprolol Tartrate (Lopressor Vial) 5 mg Q6HRS IVP Last administered on 04/26/19at 12:05; Start 04/25/19 at 13:00; Stop 04/26/19 at 15:08; Status DC Acetaminophen (Tylenol) 1,000 mg PRN Q6HRS PRN PEG MILD PAIN / TEMP Last administered on 04/26/19at 19:35; Start 04/26/19 at 07:45 Diltiazem HCl (Cardizem 24hr Cd) 120 mg DAILY PO Last administered on 04/30/19 09:12; Start 04/27/19 at 09:00 Apixaban (Eliquis) 5 mg BID PO Last administered on 04/30/19 09:12; Start 04/26/19 at 21:00 Isosorbide Mononitrate (Imdur) 60 mg DAILY PO Last administered on 04/30/19 09:12; Start 04/27/19 at 09:00 Insulin Human Lispro (HumaLOG) 0-9 UNITS TIDAC SQ Last administered on 04/28/19at 08:48; Start 04/27/19 at 07:30 Dextrose 250 ml PRN Q15MIN PRN IV SEE COMMENTS; Start 04/27/19 at 08:00 Lactobacillus Rhamnosus (Culturelle) 1 cap BID PO Last administered on 04/30/19 09:12; Start 04/27/19 at 09:00 Duloxetine HCl (Cymbalta) 60 mg BID PO Last administered on 04/30/19 09:12; Start 04/28/19 at 09:00 Pantoprazole Sodium (Protonix) 40 mg DAILYAC PO Last administered on 04/30/19 09:12; Start 04/28/19 at 07:30 Insulin Glargine (Lantus) 75 units QHS SQ Last administered on 04/29/19at 21:24; Start 04/27/19 at 21:00 Insulin Human Lispro (HumaLOG) 30 units TIDWMEALS SQ Last administered on 04/30/19at 09:12; Start 04/27/19 at 12:00 Nitroglycerin (Nitrostat) 0.4 mg PRN Q5MIN PRN SL CHEST PAIN; Start 04/27/19 at 16:45 Insulin Human Lispro (HumaLOG) 15 units 1X ONCE SQ Last administered on 04/29/19at 09:34; Start 04/29/19 at 09:00; Stop 04/29/19 at 09:01; Status DC Fosfomycin Tromethamine (Monurol) 3 gm 1X ONCE PO Last administered on 04/29/19at 13:02; Start 04/29/19 at 13:30; Stop 04/29/19 at 13:31; Status DC Fluticasone Propionate (Flonase) 2 spray DAILY NS ; Start 05/01/19 at 09:00 Active Scripts Active Humalog (Insulin Lispro) 100 Unit/1 Ml Insuln.pen 30 Units SQ TIDWMEALS 30 Days Hydrocodone-Apap 10-325 (Hydrocodone Bit/Acetaminophen) 1 Tab Tablet 1 Tab PO PRN Q6HRS PRN Toprol Xl (Metoprolol Succinate) 50 Mg Tab.er.24h 100 Mg PO DAILY Hydralazine Hcl 25 Mg Tablet 50 Mg PO TID Cilostazol 50 Mg Tablet 50 Mg PO BID Xanax (Alprazolam) 0.5 Mg Tablet 0.5 Mg PO PRN Q6HRS PRN Ondansetron Odt (Ondansetron) 4 Mg Tab.rapdis 1 Tab PO PRN Q6-8HRS Nystop (Nystatin) 60 Gm Powder 1 Sally TP BID 30 Days Colace (Docusate Sodium) 100 Mg Capsule 100 Mg PO BID Senna-Time S Tablet (Sennosides/Docusate Sodium) 1 Each Tablet 1 Tab PO BID Nitrostat (Nitroglycerin) 0.4 Mg Tab.subl 0.4 Mg SL PRN Q5MIN PRN 30 Days Reported Lantus Solostar (Insulin Glargine,Hum.rec.anlog) 100 Unit/1 Ml Insuln.pen 75 Unit SQ BID Tizanidine Hcl 4 Mg Tablet 1 Tab PO TID Duloxetine Hcl 60 Mg Capsule.dr 60 Mg PO BID Trulicity (Dulaglutide) 0.75 Mg/0.5 Ml Pen.injctr 0.75 Mg SUBCUT QFR Amlodipine Besylate 5 Mg Tablet 5 Mg PO DAILY Ventolin Hfa Inhaler (Albuterol Sulfate) 18 Gm Hfa.aer.ad 2 Puff INH PRN Q4HRS PRN Duoneb 0.5-3(2.5) Mg/3 Ml (Albuterol/Ipratropium) 3 Ml Ampul.neb 3 Ml NEB PRN QID PRN Flonase Allergy Relief (Fluticasone Propionate) 9.9 Ml [place].susp 2 Sprays NS PRN PRN Clonidine Hcl 0.1 Mg Tablet 1 Tab PO PRN PRN When SBP >150 Eliquis (Apixaban) 5 Mg Tablet 5 Mg PO BID Lyrica (Pregabalin) 150 Mg Capsule 1 Cap PO BID Atorvastatin Calcium 20 Mg Tablet 2 Tab PO HS Nexium Capsule (Esomeprazole Magnesium) 40 Mg Capsule. 1 Cap PO BID Aspirin 81 Mg Tab.chew 1 Tab PO DAILY Levothyroxine Sodium 50 Mcg Tablet 1 Tab PO DAILY Vital Signs Vital Signs Date Time Temp Pulse Resp B/P (MAP) Pulse Ox O2 Delivery O2 Flow Rate FiO2 04/30/19 09:12 84 158/78 04/30/19 08:38 98 Nasal Cannula 3.0 04/30/19 07:00 97.7 20 97.7 Labs Laboratory Tests Test 04/28/19 12:35 04/28/19 16:37 04/28/19 20:53 04/29/19 08:14 Glucose (Fingerstick) 149 mg/dL (70-99) 147 mg/dL (70-99) 152 mg/dL (70-99) 490 mg/dL (70-99) Test 04/29/19 12:15 04/29/19 16:54 04/29/19 20:55 04/30/19 07:27 Glucose (Fingerstick) 126 mg/dL (70-99) 85 mg/dL (70-99) 87 mg/dL (70-99) 143 mg/dL (70-99) Laboratory Tests Test 04/29/19 12:15 04/29/19 16:54 04/29/19 20:55 04/30/19 07:27 Glucose (Fingerstick) 126 mg/dL (70-99) 85 mg/dL (70-99) 87 mg/dL (70-99) 143 mg/dL (70-99) Allergies Allergies Coded Allergies Type Severity Reaction Last Updated Verified I S O L A T I O N *CONTACT* Allergy Unknown 04/08/19 Yes No Known Medication Allergies Allergy Unknown 04/08/19 Yes Disposition/Orders: D/C to Another Facility ESTHELA JEREZ MD Apr 30, 2019 09:27
[2019-04-30 09:35] LABS: BASO # 0.1 x10^3/uL (0.0-0.2); BASO % 1 % (0-3); EOS # 0.6 x10^3/uL (0.0-0.7); EOS % 4 % (0-3); HEMATOCRIT 27.5 % (36.0-47.0); HEMOGLOBIN 8.7 g/dL (12.0-15.5); LYMPH # 1.5 x10^3/uL (1.0-4.8); LYMPH % 10 % (24-48); MEAN CORPUSCULAR HEMOGLOBIN 27 pg (25-35); MEAN CORPUSCULAR HGB CONC 32 g/dL (31-37); MEAN CORPUSCULAR VOLUME 85 fL (79-100); MONO % 6 % (0-9); NEUT # 12.4 x10^3/uL (1.8-7.7); NEUT % 80 % (31-73); PLATELET COUNT 353 x10^3/uL (140-400); RED BLOOD COUNT 3.23 x10^6/uL (3.50-5.40); RED CELL DISTRIBUTION WIDTH 16.9 % (11.5-14.5); WHITE BLOOD COUNT 15.6 x10^3/uL (4.0-11.0)
[2019-04-30 09:51] LABS: CALCIUM 9.2 mg/dL (8.5-10.1); CREATININE 1.5 mg/dL (0.6-1.0); GFR 35.9
[2019-04-30 09:53] LABS: POTASSIUM 5.1 mmol/L (3.5-5.1)
[2019-04-30 11:00] VITALS: BP 122/54
--- NOTE | 2019-04-30 12:15 | SNU/HH DC ---
DISCHARGE ORDERS DISCHARGE INFORMATION: DISCHARGE DATE: Apr 30, 2019 FINAL DIAGNOSIS Acute on chronic respiratory failure, Aspiration pneumonia, UTI, Diastolic CHF, JENNIFER-resolved, hx PAF, DM2, swallowing dysfunction, debility, anemia of chronic disease, PAD, Depression/Anxiety, CAD, Afib, HLD, Hypothyroidism CONDITION ON DISCHARGE: Stable CODE STATUS: Code Status: Full [facility]CI: SNF STAY <30 DAYS: Yes HOSPICE: HOSPICE: No HOSPICE EVAL & TREAT: No LTAC: ADMIT TO LTAC: No POST DISCHARGE ORDERS: ACTIVITY ORDERS: No restrictions, Resume previous activity, Activity as tolerated WEIGHT BEARING STATUS: No restrictions, Full weight bearing, As tolerated DIET AFTER DISCHARGE: ADA CHECKS AFTER DISCHARGE: CHECKS AFTER DISCHARGE: Check blood press - daily, Check blood sugar, ac/hs, Check your Temp as needed, Weigh Yourself Daily TREATMENT/EQUIPMENT ORDERS: ADAPTIVE EQUIPMENT NEEDED: Walker RESPIRATORY EQUIPMENT NEEDED: Oxygen, CPAP Physical Therapy For: Evalulation/Treatment Occupational Therapy For: Evaluation/Treatment DISCHARGE MEDICATIONS: Home Meds Active Scripts Insulin Lispro (HUMALOG) 100 Unit/1 Ml Insuln.pen, 30 UNITS SQ TIDWMEALS for dm for 30 Days, EACH Prov:VICKIE MARIANO MD 04/15/19 Hydrocodone Bit/Acetaminophen (HYDROCODONE-APAP 10-325 ) 1 Tab Tablet, 1 TAB PO PRN Q6HRS PRN for SEVERE PAIN 7-10, #30 TAB Prov:VICKIE MARIANO MD 04/15/19 Metoprolol Succinate (Toprol Xl) 50 Mg Tab.er.24h, 100 MG PO DAILY for htn, #60 TAB.SR Prov:VICKIE MARIANO MD 04/15/19 Hydralazine Hcl (HYDRALAZINE HCL) 25 Mg Tablet, 50 MG PO TID for htn, #90 TAB Prov:VICKIE MARIANO MD 04/15/19 Cilostazol (CILOSTAZOL) 50 Mg Tablet, 50 MG PO BID for PAD, #60 TAB Prov:VICKIE MARIANO MD 04/15/19 Alprazolam (XANAX) 0.5 Mg Tablet, 0.5 MG PO PRN Q6HRS PRN for ANXIETY / AGITATION, #60 TAB 0 Refills Prov:VICKIE MARIANO MD 04/15/19 Ondansetron (ONDANSETRON ODT) 4 Mg Tab.rapdis, 1 TAB PO PRN Q6-8HRS, #16 TAB Prov:ZARCOSERGIO Leandra PATTERSON 10/23/18 Nystatin (NYSTOP) 60 Gm Powder, 1 KERON TP BID for fungus groin for 30 Days, MISC 3 Refills Prov:NIKKIE GODINEZ MD 09/02/18 Docusate Sodium (COLACE) 100 Mg Capsule, 100 MG PO BID, #10 CAP Prov:JOSE LAWTON MD 03/24/17 Sennosides/Docusate Sodium (SENNA-TIME S TABLET) 1 Each Tablet, 1 TAB PO BID, #10 TAB Prov:JOSE LAWTON MD 03/24/17 Nitroglycerin (NITROSTAT) 0.4 Mg Tab.subl, 0.4 MG SL PRN Q5MIN PRN for CP RATING > 1/10 for 30 Days Prov:ESTHELA JEREZ MD 05/02/16 Reported Medications Insulin Glargine,Hum.rec.anlog (LANTUS SOLOSTAR) 100 Unit/1 Ml Insuln.pen, 75 UNIT SQ BID for iddm, SYR 12/28/18 Tizanidine Hcl (TIZANIDINE HCL) 4 Mg Tablet, 1 TAB PO TID for chr back pain, #30 TAB 10/13/18 Duloxetine Hcl (DULOXETINE HCL) 60 Mg Capsule.dr, 60 MG PO BID 10/26/17 Dulaglutide (Trulicity) 0.75 Mg/0.5 Ml Pen.injctr, 0.75 MG SUBCUT QFR 10/26/17 Amlodipine Besylate (AMLODIPINE BESYLATE) 5 Mg Tablet, 5 MG PO DAILY 10/26/17 Albuterol Sulfate (VENTOLIN HFA INHALER) 18 Gm Hfa.aer.ad, 2 PUFF INH PRN Q4HRS PRN for SHORTNESS OF BREATH, INHALER 0 Refills 03/19/17 Ipratropium/Albuterol Sulfate (DUONEB 0.5-3(2.5) MG/3 ML) 3 Ml Ampul.neb, 3 ML NEB PRN QID PRN for SHORTNESS OF BREATH, EACH 03/19/17 Fluticasone Propionate (Flonase Allergy Relief) 9.9 Ml [place].susp, 2 SPRAYS NS PRN PRN for ALLERGIES, BOTTLE 03/19/17 Clonidine Hcl (CLONIDINE HCL) 0.1 Mg Tablet, 1 TAB PO PRN PRN for HYPERTENSION, SEE COMMENTS, #30 TAB 2 Refills When SBP >150 03/19/17 Apixaban (ELIQUIS) 5 Mg Tablet, 5 MG PO BID, TAB 03/19/17 Pregabalin (LYRICA) 150 Mg Capsule, 1 CAP PO BID, #60 CAP 5 Refills 10/07/16 Atorvastatin Calcium (ATORVASTATIN CALCIUM) 20 Mg Tablet, 2 TAB PO HS, #30 TAB 5 Refills 10/06/16 Esomeprazole Magnesium (NEXIUM CAPSULE) 40 Mg Capsule.dr, 1 CAP PO BID, #30 CAP 5 Refills 10/06/16 Aspirin (ASPIRIN) 81 Mg Tab.chew, 1 TAB PO DAILY, #30 TAB 3 Refills 10/06/16 Levothyroxine Sodium (LEVOTHYROXINE SODIUM) 50 Mcg Tablet, 1 TAB PO DAILY, #30 TAB 5 Refills 10/22/15 ESTHELA JEREZ MD Apr 30, 2019 12:15
--- NOTE | 2019-04-30 13:48 | PDOC ---
PULMONARY PROGRESS NOTES Subjective SITTING UP IN CHAIR NO REPS DISTRESS NO NEW COMPLAINTS Vitals Vital Signs Date Time Temp Pulse Resp B/P (MAP) Pulse Ox O2 Delivery O2 Flow Rate FiO2 04/30/19 11:45 98 Nasal Cannula 3.0 04/30/19 11:00 97.6 87 18 122/54 (76) 97.6 ROS: No Nausea, No Chest Pain, No Abdominal Pain, No Increase Cough General: No acute distress Lungs: Clear Cardiovascular: S1, S2 Abdomen: Soft, Non-tender, Other (marke obesity) Neuro Exam: Alert Extremities: Other (1+edema) Skin: Warm Labs Laboratory Tests Test 04/28/19 16:37 04/28/19 20:53 04/29/19 08:14 04/29/19 12:15 Glucose (Fingerstick) 147 mg/dL (70-99) 152 mg/dL (70-99) 490 mg/dL (70-99) 126 mg/dL (70-99) Test 04/29/19 16:54 04/29/19 20:55 04/30/19 07:27 04/30/19 09:11 Glucose (Fingerstick) 85 mg/dL (70-99) 87 mg/dL (70-99) 143 mg/dL (70-99) White Blood Count 15.6 x10^3/uL (4.0-11.0) Red Blood Count 3.23 x10^6/uL (3.50-5.40) Hemoglobin 8.7 g/dL (12.0-15.5) Hematocrit 27.5 % (36.0-47.0) Mean Corpuscular Volume 85 fL (79-100) Mean Corpuscular Hemoglobin 27 pg (25-35) Mean Corpuscular Hemoglobin Concent 32 g/dL (31-37) Red Cell Distribution Width 16.9 % (11.5-14.5) Platelet Count 353 x10^3/uL (140-400) Neutrophils (%) (Auto) 80 % (31-73) Lymphocytes (%) (Auto) 10 % (24-48) Monocytes (%) (Auto) 6 % (0-9) Eosinophils (%) (Auto) 4 % (0-3) Basophils (%) (Auto) 1 % (0-3) Neutrophils # (Auto) 12.4 x10^3/uL (1.8-7.7) Lymphocytes # (Auto) 1.5 x10^3/uL (1.0-4.8) Monocytes # (Auto) 1.0 x10^3/uL (0.0-1.1) Eosinophils # (Auto) 0.6 x10^3/uL (0.0-0.7) Basophils # (Auto) 0.1 x10^3/uL (0.0-0.2) Sodium Level 137 mmol/L (136-145) Potassium Level 5.1 mmol/L (3.5-5.1) Chloride Level 100 mmol/L (98-107) Carbon Dioxide Level 28 mmol/L (21-32) Anion Gap 9 (6-14) Blood Urea Nitrogen 40 mg/dL (7-20) Creatinine 1.5 mg/dL (0.6-1.0) Estimated GFR (Cockcroft-Gault) 35.9 Glucose Level 184 mg/dL (70-99) Calcium Level 9.2 mg/dL (8.5-10.1) Test 04/30/19 11:56 Glucose (Fingerstick) 92 mg/dL (70-99) Laboratory Tests Test 04/29/19 16:54 04/29/19 20:55 04/30/19 07:27 04/30/19 09:11 Glucose (Fingerstick) 85 mg/dL (70-99) 87 mg/dL (70-99) 143 mg/dL (70-99) White Blood Count 15.6 x10^3/uL (4.0-11.0) Red Blood Count 3.23 x10^6/uL (3.50-5.40) Hemoglobin 8.7 g/dL (12.0-15.5) Hematocrit 27.5 % (36.0-47.0) Mean Corpuscular Volume 85 fL (79-100) Mean Corpuscular Hemoglobin 27 pg (25-35) Mean Corpuscular Hemoglobin Concent 32 g/dL (31-37) Red Cell Distribution Width 16.9 % (11.5-14.5) Platelet Count 353 x10^3/uL (140-400) Neutrophils (%) (Auto) 80 % (31-73) Lymphocytes (%) (Auto) 10 % (24-48) Monocytes (%) (Auto) 6 % (0-9) Eosinophils (%) (Auto) 4 % (0-3) Basophils (%) (Auto) 1 % (0-3) Neutrophils # (Auto) 12.4 x10^3/uL (1.8-7.7) Lymphocytes # (Auto) 1.5 x10^3/uL (1.0-4.8) Monocytes # (Auto) 1.0 x10^3/uL (0.0-1.1) Eosinophils # (Auto) 0.6 x10^3/uL (0.0-0.7) Basophils # (Auto) 0.1 x10^3/uL (0.0-0.2) Sodium Level 137 mmol/L (136-145) Potassium Level 5.1 mmol/L (3.5-5.1) Chloride Level 100 mmol/L (98-107) Carbon Dioxide Level 28 mmol/L (21-32) Anion Gap 9 (6-14) Blood Urea Nitrogen 40 mg/dL (7-20) Creatinine 1.5 mg/dL (0.6-1.0) Estimated GFR (Cockcroft-Gault) 35.9 Glucose Level 184 mg/dL (70-99) Calcium Level 9.2 mg/dL (8.5-10.1) Test 04/30/19 11:56 Glucose (Fingerstick) 92 mg/dL (70-99) Medications Active Scripts Medications Dose Route/Sig Max Daily Dose Days Date Category Dose Instructions Humalog (Insulin Lispro) 100 Unit/1 Ml Insuln.pen 30 Units SQ TIDWMEALS 30 04/15/19 Rx Toprol Xl (Metoprolol Succinate) 50 Mg Tab.er.24h 100 Mg PO DAILY 04/15/19 Rx Hydralazine Hcl 25 Mg Tablet 50 Mg PO TID 04/15/19 Rx Cilostazol 50 Mg Tablet 50 Mg PO BID 04/15/19 Rx Xanax (Alprazolam) 0.5 Mg Tablet 0.5 Mg PO PRN Q6HRS PRN 04/15/19 Rx Lantus Solostar (Insulin Glargine,Hum.rec.anlog) 100 Unit/1 Ml Insuln.pen 75 Unit SQ BID 12/28/18 Reported Ondansetron Odt (Ondansetron) 4 Mg Tab.rapdis 1 Tab PO PRN Q6-8HRS 10/23/18 Rx Tizanidine Hcl 4 Mg Tablet 1 Tab PO TID 10/13/18 Reported Nystop (Nystatin) 60 Gm Powder 1 Sally TP BID 30 09/02/18 Rx Duloxetine Hcl 60 Mg Capsule.dr 60 Mg PO BID 10/26/17 Reported Trulicity (Dulaglutide) 0.75 Mg/0.5 Ml Pen.injctr 0.75 Mg SUBCUT QFR 10/26/17 Reported Amlodipine Besylate 5 Mg Tablet 5 Mg PO DAILY 10/26/17 Reported Colace (Docusate Sodium) 100 Mg Capsule 100 Mg PO BID 03/24/17 Rx Senna-Time S Tablet (Sennosides/Docusate Sodium) 1 Each Tablet 1 Tab PO BID 03/24/17 Rx Ventolin Hfa Inhaler (Albuterol Sulfate) 18 Gm Hfa.aer.ad 2 Puff INH PRN Q4HRS PRN 03/19/17 Reported Duoneb 0.5-3(2.5) Mg/3 Ml (Albuterol/Ipratropium) 3 Ml Ampul.neb 3 Ml NEB PRN QID PRN 03/19/17 Reported Flonase Allergy Relief (Fluticasone Propionate) 9.9 Ml [place].susp 2 Sprays NS PRN PRN 03/19/17 Reported Clonidine Hcl 0.1 Mg Tablet 1 Tab PO PRN PRN 03/19/17 Reported When SBP >150 Eliquis (Apixaban) 5 Mg Tablet 5 Mg PO BID 03/19/17 Reported Lyrica (Pregabalin) 150 Mg Capsule 1 Cap PO BID 10/07/16 Reported Atorvastatin Calcium 20 Mg Tablet 2 Tab PO HS 10/06/16 Reported Nexium Capsule (Esomeprazole Magnesium) 40 Mg Capsule.dr 1 Cap PO BID 10/06/16 Reported Aspirin 81 Mg Tab.chew 1 Tab PO DAILY 10/06/16 Reported Nitrostat (Nitroglycerin) 0.4 Mg Tab.subl 0.4 Mg SL PRN Q5MIN PRN 30 05/02/16 Rx Levothyroxine Sodium 50 Mcg Tablet 1 Tab PO DAILY 10/22/15 Reported Comments NO NEW CXR Impression . 1. Jlize-ua-fusmome hypercapnic respiratory failure. The etiology related to suspected right heart failure. extubated 7/30 2. Underlying obesity hypoventilation syndrome/obstructive sleep apnea, on home BiPAP and oxygen at 3 L. 3. Abnormal chest x-ray consistent with mild congestive heart failure, ACUTE/ CHRONIC HF 4. Lower extremity edema. 5. Chronic kidney disease 6. Minimal history of tobacco use. 7. metabolic acidosis combined with respiratory acidosis POA. corrected. Plan . RESP STATUS IS COMPENSATED AWAITING SNU SUPPORTIVE CARE NEEDS TO LOOSE WT BIPAP QHS UP TO CHAIR D/W RN 02 OFF ANTIBX PER ROBERT ALEXANDER MD Apr 30, 2019 13:48
--- NOTE | 2019-04-30 13:55 | NUR ---
SS following up with discharge planning. Discharge orders phoned and faxed to [facility], ; fax [phone]. SS awaiting insurance authorization at this time and will proceed accordingly.
[2019-04-30 15:00] VITALS: BP 164/76
--- NOTE | 2019-04-30 15:41 | NUR ---
SS following up with discharge planning. Insurance authorization received for [facility]. [facility] notified SS that medications on discharge instructions are not correct. Physician notified. SS awaiting corrected med list and will proceed accordingly with discharge.
--- NOTE | 2019-04-30 16:33 | PDOC ---
SUBJECTIVE Subjective Pt not being discharged today due to insurance issues. Feeling well. OBJECTIVE Vital Signs Vital Signs Date Time Temp Pulse Resp B/P (MAP) Pulse Ox O2 Delivery O2 Flow Rate FiO2 04/30/19 15:55 Nasal Cannula 2.0 04/30/19 15:00 97.5 85 18 164/76 (105) 98 Nasal Cannula 3.0 97.5 04/30/19 14:59 91 164/76 04/30/19 11:45 98 Nasal Cannula 3.0 04/30/19 11:00 97.6 87 18 122/54 (76) 97 Nasal Cannula 3.0 97.6 04/30/19 09:37 98 Nasal Cannula 3.0 04/30/19 09:12 84 158/78 04/30/19 09:12 84 158/78 04/30/19 09:12 84 158/78 04/30/19 08:38 98 Nasal Cannula 3.0 04/30/19 08:07 98 Nasal Cannula 3.0 04/30/19 08:00 Nasal Cannula 3.0 04/30/19 07:00 97.7 84 20 158/78 (104) 98 Nasal Cannula 4.0 97.7 04/30/19 03:50 BiPAP/CPAP 04/30/19 03:00 97.9 86 21 152/65 (94) 95 BiPAP/CPAP 97.9 04/30/19 01:30 96 BiPAP/CPAP 04/30/19 01:20 BiPAP/CPAP 04/30/19 00:25 22 96 Nasal Cannula 3.0 04/29/19 23:24 97.5 87 18 164/64 (97) 96 Nasal Cannula 3.0 97.5 04/29/19 21:14 91 157/70 04/29/19 20:00 95 Nasal Cannula 3.0 04/29/19 20:00 Nasal Cannula 3.0 04/29/19 19:45 97.3 76 18 157/70 (99) 95 Nasal Cannula 3.0 97.3 I & O Intake and Output 04/30/19 07:00 Intake Total 1100 ml Output Total 800 ml Balance 300 ml Intake Oral 1100 ml Output Urine Total 800 ml PHYSICAL EXAM Physical Exam DISCHARGE PHYSICAL EXAM General: NAD, up in chair, NC in place, appears comfortable HEENT: TMs clear Heart: regular rhythm, normal rate, no significant murmurs appreciated today Lungs: CTAB, regular breathing rate and effort Abd: obese, soft Ext: no cyanosis, chronic lymphedema present Neuro: CN2-12 GI ASSESSMENT/PLAN Assessment/Plan Pt is a 58yo CF admitted for acute on chronic respiratory failure that was multifactorial 1. Acute on chronic respiratory failure, resolved. Pt initially required intubation, back on home O2 requirements. Continue neb tx- DC to [facility] tomorrow 2. aspiration pneumonia/UTI - interstitial infiltrate at admission. ID was following. They have stopped all her antibiotics and her fluconazole. 2. diastolic CHF - compensated, not on diuretic at present. 3. JENNIFER - resolved, renal function is at baseline. 4. hx PAF - remains in sinus, pt back on Eliquis. Pt's BP in 150s systolic with normal rate, will resume pt's Metoprolol on D/C 5. DM2 - now on po diet. HbA1C this admission was >14. BS were not at goal but appear to have improved since starting on home insulin. Pt continued on Lantus 75U QHS, Lispro 30U QAC and SSI (no additional units over past 24H) 6. nutrition- swallowing dysfunction. Dysphagia II diet 7. debility - continue therapies 8. anemia of chronic disease - stable 9. PAD- pt continued on Pletal 10. Depression/Anxiety- pt continued on Cymbalta 60mg BID and Xanax prn 11. CAD- pt continued on Imdur 60mg 12. Afib- rate controlled. Pt currently on Diltiazem 120mg and Eliquis 5mg BID 13. HLD- pt continued on Atorvastatin 14. Hypothyroidism- previously at goal. TSH only mildly elevated. Pt continued on levothyroxine 50mcg COMMENT Lab Laboratory Tests Test 04/29/19 16:54 04/29/19 20:55 04/30/19 07:27 04/30/19 09:11 Glucose (Fingerstick) 85 mg/dL (70-99) 87 mg/dL (70-99) 143 mg/dL (70-99) White Blood Count 15.6 x10^3/uL (4.0-11.0) Red Blood Count 3.23 x10^6/uL (3.50-5.40) Hemoglobin 8.7 g/dL (12.0-15.5) Hematocrit 27.5 % (36.0-47.0) Mean Corpuscular Volume 85 fL (79-100) Mean Corpuscular Hemoglobin 27 pg (25-35) Mean Corpuscular Hemoglobin Concent 32 g/dL (31-37) Red Cell Distribution Width 16.9 % (11.5-14.5) Platelet Count 353 x10^3/uL (140-400) Neutrophils (%) (Auto) 80 % (31-73) Lymphocytes (%) (Auto) 10 % (24-48) Monocytes (%) (Auto) 6 % (0-9) Eosinophils (%) (Auto) 4 % (0-3) Basophils (%) (Auto) 1 % (0-3) Neutrophils # (Auto) 12.4 x10^3/uL (1.8-7.7) Lymphocytes # (Auto) 1.5 x10^3/uL (1.0-4.8) Monocytes # (Auto) 1.0 x10^3/uL (0.0-1.1) Eosinophils # (Auto) 0.6 x10^3/uL (0.0-0.7) Basophils # (Auto) 0.1 x10^3/uL (0.0-0.2) Sodium Level 137 mmol/L (136-145) Potassium Level 5.1 mmol/L (3.5-5.1) Chloride Level 100 mmol/L (98-107) Carbon Dioxide Level 28 mmol/L (21-32) Anion Gap 9 (6-14) Blood Urea Nitrogen 40 mg/dL (7-20) Creatinine 1.5 mg/dL (0.6-1.0) Estimated GFR (Cockcroft-Gault) 35.9 Glucose Level 184 mg/dL (70-99) Calcium Level 9.2 mg/dL (8.5-10.1) Test 04/30/19 11:56 04/30/19 15:00 04/30/19 16:20 Glucose (Fingerstick) 92 mg/dL (70-99) 54 mg/dL (70-99) 87 mg/dL (70-99) ESTHELA JEREZ MD Apr 30, 2019 16:33
[2019-04-30 19:11] VITALS: BP 135/70
[2019-04-30] MEDS: ATORVASTATIN CALCIUM 20 MG TABLET PO SCH (20:31)
[2019-04-30] MEDS: INSULIN GLARGINE 300 UNITS/3 ML INSULN.PEN. SQ SCH (20:47)
[2019-04-30 23:09] VITALS: BP 138/62
--- NOTE | 2019-05-01 00:05 | NUR ---
Pt on BiPap at 0005.
[2019-05-01 03:36] VITALS: BP 119/55
[2019-05-01] MEDS: LEVOTHYROXINE 50 MCG TABLET PO SCH (06:32)
--- NOTE | 2019-05-01 06:33 | PDOC ---
OBJECTIVE Vital Signs Vital Signs Date Time Temp Pulse Resp B/P (MAP) Pulse Ox O2 Delivery O2 Flow Rate FiO2 05/01/19 05:00 BiPAP/CPAP 05/01/19 03:36 97.8 82 22 119/55 (76) 99 BiPAP/CPAP 97.8 05/01/19 03:05 BiPAP/CPAP 05/01/19 01:15 BiPAP/CPAP 05/01/19 00:06 22 95 BiPAP/CPAP 04/30/19 23:09 97.9 96 18 138/62 (87) 95 Nasal Cannula 3.0 97.9 04/30/19 23:04 22 96 Nasal Cannula 3.0 04/30/19 20:34 93 135/70 04/30/19 19:53 Nasal Cannula 3.0 04/30/19 19:45 96 Nasal Cannula 3.0 04/30/19 19:11 97.8 93 18 135/70 (91) 96 Nasal Cannula 2.0 97.8 04/30/19 15:55 Nasal Cannula 2.0 04/30/19 15:00 97.5 85 18 164/76 (105) 98 Nasal Cannula 3.0 97.5 04/30/19 14:59 91 164/76 04/30/19 11:45 98 Nasal Cannula 3.0 04/30/19 11:00 97.6 87 18 122/54 (76) 97 Nasal Cannula 3.0 97.6 04/30/19 09:37 98 Nasal Cannula 3.0 04/30/19 09:12 84 158/78 04/30/19 09:12 84 158/78 04/30/19 09:12 84 158/78 04/30/19 08:38 98 Nasal Cannula 3.0 04/30/19 08:07 98 Nasal Cannula 3.0 04/30/19 08:00 Nasal Cannula 3.0 04/30/19 07:00 97.7 84 20 158/78 (104) 98 Nasal Cannula 4.0 97.7 I & O Intake and Output 05/01/19 07:00 Intake Total 300 ml Balance 300 ml Intake Oral 300 ml # Voids 1 # Bowel Movements 1 ASSESSMENT/PLAN Assessment/Plan Pt to be DC'd to [facility] today. See updated Discharge Summary. COMMENT Lab Laboratory Tests Test 04/30/19 07:27 8/6/19 09:11 04/30/19 11:56 04/30/19 15:00 Glucose (Fingerstick) 143 mg/dL (70-99) 92 mg/dL (70-99) 54 mg/dL (70-99) White Blood Count 15.6 x10^3/uL (4.0-11.0) Red Blood Count 3.23 x10^6/uL (3.50-5.40) Hemoglobin 8.7 g/dL (12.0-15.5) Hematocrit 27.5 % (36.0-47.0) Mean Corpuscular Volume 85 fL (79-100) Mean Corpuscular Hemoglobin 27 pg (25-35) Mean Corpuscular Hemoglobin Concent 32 g/dL (31-37) Red Cell Distribution Width 16.9 % (11.5-14.5) Platelet Count 353 x10^3/uL (140-400) Neutrophils (%) (Auto) 80 % (31-73) Lymphocytes (%) (Auto) 10 % (24-48) Monocytes (%) (Auto) 6 % (0-9) Eosinophils (%) (Auto) 4 % (0-3) Basophils (%) (Auto) 1 % (0-3) Neutrophils # (Auto) 12.4 x10^3/uL (1.8-7.7) Lymphocytes # (Auto) 1.5 x10^3/uL (1.0-4.8) Monocytes # (Auto) 1.0 x10^3/uL (0.0-1.1) Eosinophils # (Auto) 0.6 x10^3/uL (0.0-0.7) Basophils # (Auto) 0.1 x10^3/uL (0.0-0.2) Sodium Level 137 mmol/L (136-145) Potassium Level 5.1 mmol/L (3.5-5.1) Chloride Level 100 mmol/L (98-107) Carbon Dioxide Level 28 mmol/L (21-32) Anion Gap 9 (6-14) Blood Urea Nitrogen 40 mg/dL (7-20) Creatinine 1.5 mg/dL (0.6-1.0) Estimated GFR (Cockcroft-Gault) 35.9 Glucose Level 184 mg/dL (70-99) Calcium Level 9.2 mg/dL (8.5-10.1) Test 04/30/19 16:20 04/30/19 17:25 04/30/19 20:18 Glucose (Fingerstick) 87 mg/dL (70-99) 112 mg/dL (70-99) 131 mg/dL (70-99) ESTHELA JEREZ MD May 01, 2019 06:33
--- NOTE | 2019-05-01 06:35 | SNU/HH DC ---
DISCHARGE ORDERS DISCHARGE INFORMATION: DISCHARGE DATE: May 01, 2019 FINAL DIAGNOSIS Problems Medical Problems: (1) Acute respiratory failure with hypoxia and hypercapnia Status: Acute (2) Duggl-sz-rnxfumu kidney injury Status: Acute (3) Atrial fibrillation Status: Acute (4) CAD (coronary artery disease) Status: Chronic (5) CHF (congestive heart failure) Status: Acute (6) COPD exacerbation Status: Acute (7) DM2 (diabetes mellitus, type 2) Status: Chronic (8) Healthcare-associated pneumonia Status: Acute (9) HTN (hypertension) Status: Chronic (10) Obesity hypoventilation syndrome Status: Chronic (11) Obstructive sleep apnea Status: Chronic (12) UTI (urinary tract infection) Status: Acute CONDITION ON DISCHARGE: Stable CODE STATUS: Code Status: Full [facility]: SNF STAY <30 DAYS: Yes HOSPICE: HOSPICE: No HOSPICE EVAL & TREAT: No LTAC: ADMIT TO LTAC: No POST DISCHARGE ORDERS: ACTIVITY ORDERS: No restrictions, Resume previous activity, Activity as tolerated WEIGHT BEARING STATUS: No restrictions, Full weight bearing, As tolerated DIET AFTER DISCHARGE: ADA CHECKS AFTER DISCHARGE: CHECKS AFTER DISCHARGE: Check blood press - daily, Check blood sugar, ac/hs, Check your Temp as needed, Weigh Yourself Daily TREATMENT/EQUIPMENT ORDERS: ADAPTIVE EQUIPMENT NEEDED: Walker RESPIRATORY EQUIPMENT NEEDED: Oxygen, CPAP Physical Therapy For: Evalulation/Treatment Occupational Therapy For: Evaluation/Treatment DISCHARGE MEDICATIONS: Home Meds Active Scripts Insulin Lispro (HUMALOG) 100 Unit/1 Ml Insuln.pen, 0 UNITS SQ TIDAC for dm2 for 30 Days, EACH Prov:ESTHELA JEREZ MD 04/30/19 Insulin Glargine,Hum.rec.anlog (LANTUS SOLOSTAR) 100 Unit/1 Ml Insuln.pen, 75 UNITS SQ QHS for dm2 for 30 Days, EACH Prov:ESTHELA JEREZ MD 04/30/19 Lactobacillus Rhamnosus Gg (CULTURELLE) 1 Each Cap.sprink, 1 CAP PO BID for antibiotics for 30 Days, #60 CAP Prov:ESTHELA JEREZ MD 04/30/19 Diltiazem Hcl (DILTIAZEM 24HR CD) 120 Mg Cap.er.24h, 120 MG PO DAILY for atrial fibrillation for 30 Days, #30 CAP.SR Prov:ESTHELA JEREZ MD 04/30/19 Isosorbide Mononitrate (ISOSORBIDE MONONITRATE ER) 30 Mg Tab.er.24h, 60 MG PO DAILY for htn for 30 Days, #60 TAB.SR Prov:ESTHELA JEREZ MD 04/30/19 Insulin Lispro (HUMALOG) 100 Unit/1 Ml Insuln.pen, 30 UNITS SQ TIDWMEALS for dm for 30 Days, EACH Prov:VICKIE MARIANO MD 04/15/19 Hydrocodone Bit/Acetaminophen (HYDROCODONE-APAP 10-325 ) 1 Tab Tablet, 1 TAB PO PRN Q6HRS PRN for SEVERE PAIN 7-10, #30 TAB Prov:VICKIE MARIANO MD 04/15/19 Metoprolol Succinate (Toprol Xl) 50 Mg Tab.er.24h, 100 MG PO DAILY for htn, #60 TAB.SR Prov:VICKIE MARIANO MD 04/15/19 Hydralazine Hcl (HYDRALAZINE HCL) 25 Mg Tablet, 50 MG PO TID for htn, #90 TAB Prov:VICKIE MARIANO MD 04/15/19 Cilostazol (CILOSTAZOL) 50 Mg Tablet, 50 MG PO BID for PAD, #60 TAB Prov:VICKIE MARIANO MD 04/15/19 Alprazolam (XANAX) 0.5 Mg Tablet, 0.5 MG PO PRN Q6HRS PRN for ANXIETY / AGITATION, #60 TAB 0 Refills Prov:VICKIE MARIANO MD 04/15/19 Nystatin (NYSTOP) 60 Gm Powder, 1 KERON TP BID for fungus groin for 30 Days, MISC 3 Refills Prov:NIKKIE GODINEZ MD 09/02/18 Docusate Sodium (COLACE) 100 Mg Capsule, 100 MG PO BID, #10 CAP Prov:JOSE LAWTON MD 03/24/17 Sennosides/Docusate Sodium (SENNA-TIME S TABLET) 1 Each Tablet, 1 TAB PO BID, #10 TAB Prov:JOSE LAWTON MD 03/24/17 Nitroglycerin (NITROSTAT) 0.4 Mg Tab.subl, 0.4 MG SL PRN Q5MIN PRN for CP RATING > 1/10 for 30 Days Prov:ESTHELA JEREZ MD 05/02/16 Reported Medications Tizanidine Hcl (TIZANIDINE HCL) 4 Mg Tablet, 1 TAB PO TID for chr back pain, #30 TAB 10/13/18 Duloxetine Hcl (DULOXETINE HCL) 60 Mg Capsule.dr, 60 MG PO BID 10/26/17 Albuterol Sulfate (VENTOLIN HFA INHALER) 18 Gm Hfa.aer.ad, 2 PUFF INH PRN Q4HRS PRN for SHORTNESS OF BREATH, INHALER 0 Refills 03/19/17 Ipratropium/Albuterol Sulfate (DUONEB 0.5-3(2.5) MG/3 ML) 3 Ml Ampul.neb, 3 ML NEB PRN QID PRN for SHORTNESS OF BREATH, EACH 03/19/17 Fluticasone Propionate (Flonase Allergy Relief) 9.9 Ml [place].susp, 2 SPRAYS NS PRN PRN for ALLERGIES, BOTTLE 03/19/17 Clonidine Hcl (CLONIDINE HCL) 0.1 Mg Tablet, 1 TAB PO PRN PRN for HYPERTENSION, SEE COMMENTS, #30 TAB 2 Refills When SBP >150 03/19/17 Apixaban (ELIQUIS) 5 Mg Tablet, 5 MG PO BID, TAB 03/19/17 Pregabalin (LYRICA) 150 Mg Capsule, 1 CAP PO BID, #60 CAP 5 Refills 10/07/16 Atorvastatin Calcium (ATORVASTATIN CALCIUM) 20 Mg Tablet, 2 TAB PO HS, #30 TAB 5 Refills 10/06/16 Esomeprazole Magnesium (NEXIUM CAPSULE) 40 Mg Capsule.dr, 1 CAP PO BID, #30 CAP 5 Refills 10/06/16 Aspirin (ASPIRIN) 81 Mg Tab.chew, 1 TAB PO DAILY, #30 TAB 3 Refills 10/06/16 Levothyroxine Sodium (LEVOTHYROXINE SODIUM) 50 Mcg Tablet, 1 TAB PO DAILY, #30 TAB 5 Refills 10/22/15 Discontinued Reported Medications Insulin Glargine,Hum.rec.anlog (LANTUS SOLOSTAR) 100 Unit/1 Ml Insuln.pen, 75 UNIT SQ BID for iddm, SYR 12/28/18 Dulaglutide (Trulicity) 0.75 Mg/0.5 Ml Pen.injctr, 0.75 MG SUBCUT QFR 10/26/17 Amlodipine Besylate (AMLODIPINE BESYLATE) 5 Mg Tablet, 5 MG PO DAILY 10/26/17 Discontinued Scripts Ondansetron (ONDANSETRON ODT) 4 Mg Tab.rapdis, 1 TAB PO PRN Q6-8HRS, #16 TAB Prov:SERGIO ZARCO DO 10/23/18 ESTHELA JEREZ MD May 01, 2019 06:35
[2019-05-01 07:00] VITALS: BP 129/55
[2019-05-01] MEDS: tiZANidine 4 MG TABLET. PO PRN (07:04)
[2019-05-01] MEDS: INSULIN LISPRO 300 UNITS/3 ML INSULN.PEN. SQ SCH ×2 (07:30→08:42)
[2019-05-01] MEDS: IPRATRPIUM/ALBUTEROL 0.5/2.5MG 3 ML NEBU. NEB SCH ×2 (07:59→11:39)
[2019-05-01] MEDS: PANTOPRAZOLE 40 MG TABLET.DR. PO SCH (08:06)
--- NOTE | 2019-05-01 08:34 | PDOC ---
PULMONARY PROGRESS NOTES Subjective SITTING UP IN CHAIR NO REPS DISTRESS NO NEW COMPLAINTS Vitals Vital Signs Date Time Temp Pulse Resp B/P (MAP) Pulse Ox O2 Delivery O2 Flow Rate FiO2 05/01/19 08:00 96 Nasal Cannula 3.0 05/01/19 07:00 97.4 87 18 129/55 (79) 97.4 ROS: No Nausea, No Chest Pain, No Abdominal Pain, No Increase Cough General: No acute distress Lungs: Clear Cardiovascular: S1, S2 Abdomen: Soft, Non-tender, Other (marke obesity) Neuro Exam: Alert Extremities: Other (1+edema) Skin: Warm Labs Laboratory Tests Test 04/29/19 12:15 04/29/19 16:54 04/29/19 20:55 04/30/19 07:27 Glucose (Fingerstick) 126 mg/dL (70-99) 85 mg/dL (70-99) 87 mg/dL (70-99) 143 mg/dL (70-99) Test 04/30/19 09:11 04/30/19 11:56 04/30/19 15:00 04/30/19 16:20 White Blood Count 15.6 x10^3/uL (4.0-11.0) Red Blood Count 3.23 x10^6/uL (3.50-5.40) Hemoglobin 8.7 g/dL (12.0-15.5) Hematocrit 27.5 % (36.0-47.0) Mean Corpuscular Volume 85 fL (79-100) Mean Corpuscular Hemoglobin 27 pg (25-35) Mean Corpuscular Hemoglobin Concent 32 g/dL (31-37) Red Cell Distribution Width 16.9 % (11.5-14.5) Platelet Count 353 x10^3/uL (140-400) Neutrophils (%) (Auto) 80 % (31-73) Lymphocytes (%) (Auto) 10 % (24-48) Monocytes (%) (Auto) 6 % (0-9) Eosinophils (%) (Auto) 4 % (0-3) Basophils (%) (Auto) 1 % (0-3) Neutrophils # (Auto) 12.4 x10^3/uL (1.8-7.7) Lymphocytes # (Auto) 1.5 x10^3/uL (1.0-4.8) Monocytes # (Auto) 1.0 x10^3/uL (0.0-1.1) Eosinophils # (Auto) 0.6 x10^3/uL (0.0-0.7) Basophils # (Auto) 0.1 x10^3/uL (0.0-0.2) Sodium Level 137 mmol/L (136-145) Potassium Level 5.1 mmol/L (3.5-5.1) Chloride Level 100 mmol/L (98-107) Carbon Dioxide Level 28 mmol/L (21-32) Anion Gap 9 (6-14) Blood Urea Nitrogen 40 mg/dL (7-20) Creatinine 1.5 mg/dL (0.6-1.0) Estimated GFR (Cockcroft-Gault) 35.9 Glucose Level 184 mg/dL (70-99) Calcium Level 9.2 mg/dL (8.5-10.1) Glucose (Fingerstick) 92 mg/dL (70-99) 54 mg/dL (70-99) 87 mg/dL (70-99) Test 04/30/19 17:25 04/30/19 20:18 05/01/19 07:58 Glucose (Fingerstick) 112 mg/dL (70-99) 131 mg/dL (70-99) 156 mg/dL (70-99) Laboratory Tests Test 04/30/19 09:11 04/30/19 11:56 04/30/19 15:00 04/30/19 16:20 White Blood Count 15.6 x10^3/uL (4.0-11.0) Red Blood Count 3.23 x10^6/uL (3.50-5.40) Hemoglobin 8.7 g/dL (12.0-15.5) Hematocrit 27.5 % (36.0-47.0) Mean Corpuscular Volume 85 fL (79-100) Mean Corpuscular Hemoglobin 27 pg (25-35) Mean Corpuscular Hemoglobin Concent 32 g/dL (31-37) Red Cell Distribution Width 16.9 % (11.5-14.5) Platelet Count 353 x10^3/uL (140-400) Neutrophils (%) (Auto) 80 % (31-73) Lymphocytes (%) (Auto) 10 % (24-48) Monocytes (%) (Auto) 6 % (0-9) Eosinophils (%) (Auto) 4 % (0-3) Basophils (%) (Auto) 1 % (0-3) Neutrophils # (Auto) 12.4 x10^3/uL (1.8-7.7) Lymphocytes # (Auto) 1.5 x10^3/uL (1.0-4.8) Monocytes # (Auto) 1.0 x10^3/uL (0.0-1.1) Eosinophils # (Auto) 0.6 x10^3/uL (0.0-0.7) Basophils # (Auto) 0.1 x10^3/uL (0.0-0.2) Sodium Level 137 mmol/L (136-145) Potassium Level 5.1 mmol/L (3.5-5.1) Chloride Level 100 mmol/L (98-107) Carbon Dioxide Level 28 mmol/L (21-32) Anion Gap 9 (6-14) Blood Urea Nitrogen 40 mg/dL (7-20) Creatinine 1.5 mg/dL (0.6-1.0) Estimated GFR (Cockcroft-Gault) 35.9 Glucose Level 184 mg/dL (70-99) Calcium Level 9.2 mg/dL (8.5-10.1) Glucose (Fingerstick) 92 mg/dL (70-99) 54 mg/dL (70-99) 87 mg/dL (70-99) Test 04/30/19 17:25 04/30/19 20:18 05/01/19 07:58 Glucose (Fingerstick) 112 mg/dL (70-99) 131 mg/dL (70-99) 156 mg/dL (70-99) Medications Active Scripts Medications Dose Route/Sig Max Daily Dose Days Date Category Dose Instructions Humalog (Insulin Lispro) 100 Unit/1 Ml Insuln.pen 30 Units SQ TIDWMEALS 30 04/15/19 Rx Toprol Xl (Metoprolol Succinate) 50 Mg Tab.er.24h 100 Mg PO DAILY 04/15/19 Rx Hydralazine Hcl 25 Mg Tablet 50 Mg PO TID 04/15/19 Rx Cilostazol 50 Mg Tablet 50 Mg PO BID 04/15/19 Rx Xanax (Alprazolam) 0.5 Mg Tablet 0.5 Mg PO PRN Q6HRS PRN 04/15/19 Rx Lantus Solostar (Insulin Glargine,Hum.rec.anlog) 100 Unit/1 Ml Insuln.pen 75 Unit SQ BID 12/28/18 Reported Ondansetron Odt (Ondansetron) 4 Mg Tab.rapdis 1 Tab PO PRN Q6-8HRS 10/23/18 Rx Tizanidine Hcl 4 Mg Tablet 1 Tab PO TID 10/13/18 Reported Nystop (Nystatin) 60 Gm Powder 1 Sally TP BID 30 09/02/18 Rx Duloxetine Hcl 60 Mg Capsule.dr 60 Mg PO BID 10/26/17 Reported Trulicity (Dulaglutide) 0.75 Mg/0.5 Ml Pen.injctr 0.75 Mg SUBCUT QFR 10/26/17 Reported Amlodipine Besylate 5 Mg Tablet 5 Mg PO DAILY 10/26/17 Reported Colace (Docusate Sodium) 100 Mg Capsule 100 Mg PO BID 03/24/17 Rx Senna-Time S Tablet (Sennosides/Docusate Sodium) 1 Each Tablet 1 Tab PO BID 03/24/17 Rx Ventolin Hfa Inhaler (Albuterol Sulfate) 18 Gm Hfa.aer.ad 2 Puff INH PRN Q4HRS PRN 03/19/17 Reported Duoneb 0.5-3(2.5) Mg/3 Ml (Albuterol/Ipratropium) 3 Ml Ampul.neb 3 Ml NEB PRN QID PRN 03/19/17 Reported Flonase Allergy Relief (Fluticasone Propionate) 9.9 Ml [place].susp 2 Sprays NS PRN PRN 03/19/17 Reported Clonidine Hcl 0.1 Mg Tablet 1 Tab PO PRN PRN 03/19/17 Reported When SBP >150 Eliquis (Apixaban) 5 Mg Tablet 5 Mg PO BID 03/19/17 Reported Lyrica (Pregabalin) 150 Mg Capsule 1 Cap PO BID 10/07/16 Reported Atorvastatin Calcium 20 Mg Tablet 2 Tab PO HS 10/06/16 Reported Nexium Capsule (Esomeprazole Magnesium) 40 Mg Capsule.dr 1 Cap PO BID 10/06/16 Reported Aspirin 81 Mg Tab.chew 1 Tab PO DAILY 10/06/16 Reported Nitrostat (Nitroglycerin) 0.4 Mg Tab.subl 0.4 Mg SL PRN Q5MIN PRN 30 05/02/16 Rx Levothyroxine Sodium 50 Mcg Tablet 1 Tab PO DAILY 10/22/15 Reported Comments NO NEW CXR Impression . 1. [id number] hypercapnic respiratory failure. The etiology related to suspected right heart failure. extubated 04/23 2. Underlying obesity hypoventilation syndrome/obstructive sleep apnea, on home BiPAP and oxygen at 3 L. 3. Abnormal chest x-ray consistent with mild congestive heart failure, ACUTE/ CHRONIC HF 4. Lower extremity edema. 5. Chronic kidney disease 6. Minimal history of tobacco use. 7. metabolic acidosis combined with respiratory acidosis POA. corrected. Plan . RESP STATUS IS COMPENSATED AWAITING SNU SUPPORTIVE CARE NEEDS TO LOOSE WT BIPAP QHS UP TO CHAIR D/W RN 02 OFF ANTIBX PER ID D/W ROBERT MCLEOD MD May 01, 2019 08:34
[2019-05-01] MEDS: NYSTATIN TOPICAL POWDER 15GM BOTTLE. TP SCH (08:35)
[2019-05-01] MEDS: ISOSORBIDE MONONITRATE ER 30 MG TAB.ER.24H PO SCH (08:35)
[2019-05-01] MEDS: LACTOBACILLUS RHAMNOSUS GG 1 CAPSULE. PO SCH (08:35)
[2019-05-01 08:36] VITALS: BP 129/55
[2019-05-01] MEDS: CILOSTAZOL 50 MG TABLET. PO SCH (08:36)
[2019-05-01] MEDS: APIXABAN 5 MG TABLET. PO SCH (08:36)
[2019-05-01] MEDS: PREGABALIN 75 MG CAPSULE PO SCH (08:36)
[2019-05-01] MEDS: ASPIRIN CHEWABLE 81 MG TABLET. PO SCH (08:36)
[2019-05-01] MEDS: DULoxetine HCL 30 MG CAPSULE.DR PO SCH (08:36)
--- NOTE | 2019-05-01 08:45 | NUR ---
SS following up with discharge planning. Discharge instructions and script received for [facility], ; fax [phone]. SS phoned and faxed orders to [facility]. Pt will discharge today and go to [facility] at 1045 via [facility] transport, [id number]. Pt and pt's RN notified.
[2019-05-01] MEDS ORDERED: FLUTICASONE 50MCG/NASAL SPRAY 16GM BOTTLE. NS SCH (09:00)
--- NOTE | 2019-05-01 11:03 | NUR ---
Discharge Note: EVELIA TAI Discharge instructions and discharge home medications reviewed with [facility] and a copy given. All questions have been answered and understanding verbalized. Prescriptions given to other facility. Discontinued lines and drains: Peripheral IV intact. Patient [facility] with [facility] via Wheelchair
== END 2019-05-01 11:00 | DRG 208 ==
LOC: ER 20:43 → 1 WEST ICU 22:51 → 2 NORTH 04-26 12:56
PROVIDERS: ADMIT Family Medicine; ATTEND Family Medicine
PROC: 5A1945Z Respiratory Ventilation, 24-96 Consecutive Hours (ICD-10-PCS; 2019-04-19)
PROC: 0BH17EZ Insertion of Endotracheal Airway into Trachea, Via Natural or Artificial Opening (ICD-10-PCS; 2019-04-19)
PROC: 5A09357 Assistance with Respiratory Ventilation, Less than 24 Consecutive Hours, Continuous Positive Airway Pressure (ICD-10-PCS; principal; 2019-04-29)
PROC: 5A09357 Assistance with Respiratory Ventilation, Less than 24 Consecutive Hours, Continuous Positive Airway Pressure (ICD-10-PCS; 2019-04-30)
PROC: 5A09357 Assistance with Respiratory Ventilation, Less than 24 Consecutive Hours, Continuous Positive Airway Pressure (ICD-10-PCS; 2019-05-01)
DX: J69.0 Pneumonitis due to inhalation of food and vomit (principal); J96.21 Acute and chronic respiratory failure with hypoxia; I50.33 Acute on chronic diastolic (congestive) heart failure; J96.22 Acute and chronic respiratory failure with hypercapnia; N17.9 Acute kidney failure, unspecified; J44.1 Chronic obstructive pulmonary disease with (acute) exacerbation; N39.0 Urinary tract infection, site not specified; E66.2 Morbid (severe) obesity with alveolar hypoventilation; E87.4 Mixed disorder of acid-base balance; I13.0 Hypertensive heart and chronic kidney disease with heart failure and stage 1 through stage 4 chronic kidney disease, or unspecified chronic kidney disease; Z68.43 Body mass index [BMI] 50.0-59.9, adult; E11.65 Type 2 diabetes mellitus with hyperglycemia; E11.649 Type 2 diabetes mellitus with hypoglycemia without coma; E11.51 Type 2 diabetes mellitus with diabetic peripheral angiopathy without gangrene; I25.10 Atherosclerotic heart disease of native coronary artery without angina pectoris; N18.3 Chronic kidney disease, stage 3 (moderate); M19.90 Unspecified osteoarthritis, unspecified site; G62.9 Polyneuropathy, unspecified; E11.22 Type 2 diabetes mellitus with diabetic chronic kidney disease; D63.8 Anemia in other chronic diseases classified elsewhere; E78.5 Hyperlipidemia, unspecified; E03.9 Hypothyroidism, unspecified; I48.0 Paroxysmal atrial fibrillation; G89.29 Other chronic pain; E11.319 Type 2 diabetes mellitus with unspecified diabetic retinopathy without macular edema; I16.0 Hypertensive urgency; F32.9 Major depressive disorder, single episode, unspecified; F41.9 Anxiety disorder, unspecified; K21.9 Gastro-esophageal reflux disease without esophagitis; Z90.710 Acquired absence of both cervix and uterus; Z79.4 Long term (current) use of insulin; Z79.01 Long term (current) use of anticoagulants; Z99.81 Dependence on supplemental oxygen; I25.2 Old myocardial infarction; Z86.711 Personal history of pulmonary embolism; Z82.49 Family history of ischemic heart disease and other diseases of the circulatory system; Z86.718 Personal history of other venous thrombosis and embolism; Z83.3 Family history of diabetes mellitus; Z86.73 Personal history of transient ischemic attack (TIA), and cerebral infarction without residual deficits; Z95.5 Presence of coronary angioplasty implant and graft; Z87.891 Personal history of nicotine dependence
CPT/HCPCS: 31500; 36415; 36600; 71045; 74018; 80048; 80053; 81001; 82805; 82962; 83735; 83880; 84145; 84443; 84484; 85007; 85025; 85027; 87070; 87086; 87186; 87205; 87493; 87641; 93005; 94002; 94003; 94640; 94660; 94760; 96374; 96375; C9113; J0360; J1450; J1650; J1815; J1940; J2020; J2185; J2250; J2270; J2543; J2704; J2930; J3490; J7042; J7613; J7620; J7644; 92526; 92610; 97110; 97116; 97530; 97535; 99291-25; G0378